=== PATIENT | female | born 1985 | race Caucasian/White ===

== ENCOUNTER 2016-04-27 22:54 | Emergency (ER) | payer MEDICAID, SELFPAY ==
[2016-04-27 22:57] VITALS: BP 157/102; PULSE 145; RESP 20; TEMP 36.1; O2SAT 96; BMI 45.2
--- NOTE | 2016-04-27 23:03 | RAD_ITS ---
STUDY: X-RAY CHEST REASON FOR EXAM: Female, 30 years old. Seizures TECHNIQUE: 1 view COMPARISON: April 11, 2016 FINDINGS: The chest is slightly rotated but there continues to be cardiomegaly. The plate atelectatic change in the left suprahilar region is still suspected. A small acinar density about 2 cm in size is at the periphery of the lower half of the left lung. The right lung is clear. An ET tube and NG tube remain in good positions... RAD/Chest 1 View (Portable) IMPRESSION: Cardiomegaly with platelike atelectatic changes in the left suprahilar region and at the periphery of the lower half of the left lung. No failure. Electronically Signed: Evan Holman, at 23:48 EST Tel , Service support [phone],
[2016-04-27 23:15] VITALS: PULSE 169; RESP 14; O2SAT 97
--- NOTE | 2016-04-27 23:22 | EKG12_ITS ---
Test Reason : UNRESPONSIVE Blood Pressure : / mmHG Vent. Rate : 169 BPM Atrial Rate : 170 BPM P-R Int : 096 ms QRS Dur : 068 ms QT Int : 290 ms P-R-T Axes : 000 088 072 degrees QTc Int : 486 ms Sinus tachycardia Confirmed by ANGELA MONAHAN, THEO ([id number]), editor index ABDOUL BANSAL ([id number]) on 05/02/2016 11:45:29 AM Referred By: MIKAL Confirmed By:THEO MILLER MD
[2016-04-27 23:23] LABS: Bacteria 0 SEEN /hpf (None Seen); Mucous, Urine 0 SEEN /hpf (<or=2+); Red Blood Cells-Urine 0 SEEN /hpf (0-5); Squamous Epithelial Cells - UA 0 SEEN /hpf (5-10); White Blood Cells 0 SEEN /hpf (0-5)
[2016-04-27] MEDS: Rocuronium Bromide 50 MG/5 ML Vial 62 MG IV (23:24)
[2016-04-27 23:25] LABS: Color, Urine Yellow (Yellow); Glucose, Dipstick Normal (Normal); Internal QC Validated? YES +Cl - CLEAR BKGD; Ketone-Dipstick Negative (Negative); Leukocyte Esterase-Dipstick Negative /ul (Negative); Nitrite-Dipstick Negative (Negative); Occult Blood-Urine 10 /ul (Negative); Pregnancy, Urine Negative Negative; Protein-Dipstick 30 mg/dl (Negative); Specific Gravity, Urine 1.015 (1.002-1.030); Urine Bilirubin Dipstick Negative (Negative); Urine Clarity Sl. Cloudy (Clear); Urine Urobilinogen Normal (Normal); Urine pH 6.5 (5.0 - 8.0)
[2016-04-27] MEDS: Etomidate 20 MG/10 ML Vial IV (23:26)
[2016-04-27 23:27] LABS: Absolute Lymphocyte Count 7.85 X10^3/ul (0.83-4.51); Absolute Neutrophil Count 20.1 X10^3/uL (2.0-7.7); Basophil# 0.05 X10^3/uL; Basophil% 0.2 % (0-1); Differential Indicated SCAN CRITERIA MET; Eosinophil# 0.46 X10^3/uL; Eosinophils% 1.5 % (0-5); Hematocrit 43.1 % (37-47); Hemoglobin 13.1 g/dl (12.0-15.0); Lymphocyte # 7.85 X10^3/ul (4.0); Lymphocyte % 25.8 % (19-41); Mean Corp Hgb Conc 30.4 g/gl (32-36); Mean Corpuscular Hgb 26.5 pg (27.0-32.0); Mean Corpuscular Volume 87.1 fL (81-99); Mean Platelet Vol. 11.8 fl (6.2-12.0); Monocyte% 5.9 % (0-10); Neutrophil # 20.09 X10^3/uL (2.7-7.7); POSITIVE COUNT YES; POSITIVE DIFFERENTIAL YES; POSITIVE MORPHOLOGY NO; Platelet Count 360 K/mm3 (150-450); RBC Distribution Width CV 14.3 % (11.6-14.6); RBC Distribution Width SD 45.5 fl (35.1-43.9); Red Blood Count 4.95 M/mm3 (4.2-5.4)
[2016-04-27 23:28] LABS: White Blood Count 30.4 K/mm3 (4.4-11.0)
[2016-04-27] MEDS: Propofol 10MG/Ml 1,000 MG/100 ML Bottle 3.933 MG CONT INF (23:30)
[2016-04-27 23:32] VITALS: BP 134/88; PULSE 165
[2016-04-27 23:40] VITALS: BP 143/81; PULSE 158
[2016-04-27 23:41] LABS: ALB/GLOB Ratio 0.9 RATIO (0.9-2.4); AST(SGOT) 22 U/L (15-37); Alanine Aminotransfer ALT/SGPT 25 U/L (12-78); Albumin, Serum 3.6 g/dL (3.4-5.0); Alkaline Phosphatase 122 U/L (45-117); Anion Gap 9 (5-15); BUN 8 mg/dL (7-18); BUN/Creat Ratio 6.4 RATIO (10-20); Calcium,Total 8.4 mg/dL (8.5-10.1); Chloride 104 mmol/L (98-107); Creatinine, Serum 1.25 mg/dL (0.55-1.02); EST Glomerular Filtration Rate 53 mL/min (>60); Est Glom Filt Rate - Afr Amer 64 mL/min (>60); Estimated Creatinine Clearance 63.41 ml/min; Glucose 271 mg/dL (70-110); Potassium 4.4 mmol/L (3.5-5.1); Protein, Total 7.6 g/dL (6.4-8.2); Sodium Level 139 mmol/L (136-145)
--- NOTE | 2016-04-27 23:41 | ED.RN ---
Addendum entered by Romario Vizcarra 04/30/16 13:46: IT NOTED THAT IN THE PATIENT CHART THAT THE DOSE OF ROCURONIUM GIVEN WAS 62 MG BUT IT ALSO STATES THAT IT IS ORDERED 1MG/KG. THE CORRECT DOSE GIVEN WAS 100 MG @ 2257. ETOMIDATE 25MG GIVEN @ 2255. ATIVAN 2MG IVP GIVEN AT 2256. THE PATIENT WAS INTUBATED AT 2300. NS 9% 1L BOLUS STARTED AT 2300. PROPOFOL GTT STARTED @ 2310 @ 10MCG/KG/MIN POST SEDATION MANAGEMENT. Original Note: PATIENT CAME IN BY SQUAD AND WAS EMERGENTLY INTUBATED. PATIENT HAD BEEN REPORTEDLY SEIZING FOR OVER 20 MINUTES. VALIUM 5MG GIVEN IM X'S 1. ONCE PIV ACCESS OBTAINED ATIVAN 2MG IVP GIVEN X'S 2. FOR RSI, ETOMIDATE 20MG IVP GIVEN AND ROCURONIUM 100MG GIVEN X'S 2 @2300 (LINE INFILTRATED AND PATIENT NEEDED A REDOSING OF RECURONIUM). PATIENT INTUBATED WITH A #7.5 ET-TUBE @ 23 @ THE LIP. PLACEMENT VERIFIED BY AUSCULTATION, COLOR CHANGING CO2 DETECTOR AND XRAY.
[2016-04-27 23:45] VITALS: BP 136/71; PULSE 123
[2016-04-27 23:49] LABS: Bedside Glucose 267 mg/dL (70-110)
[2016-04-27 23:50] LABS: Phenytoin (Dilantin) Level 0.8 mL (10.0-20.0); Valproic Acid (Depakene) Level < 3 ug/mL (50-100)
[2016-04-27 23:51] LABS: Differential Comment SCANNED; Reactive Lymphocyte 2+
[2016-04-27 23:54] VITALS: BP 136/71; PULSE 127; RESP 14; TEMP 38.4; O2SAT 98
--- NOTE | 2016-04-27 23:59 | ED.RN ---
PT RESTING QUIETLY WITH NO SIGNS OF DISTRESS. SPOUSE AT BEDSIDE.
[2016-04-28 00:04] VITALS: BP 110/61; PULSE 119; RESP 14; O2SAT 99
[2016-04-28 00:13] LABS: Lactic Acid 2.8 mmol/L (0.4-2.0)
[2016-04-28 00:30] VITALS: BP 124/75; PULSE 123; RESP 16; TEMP 37.4; O2SAT 98
[2016-04-28 00:33] LABS: Base Excess -3 mmol/L (-2 to +2); Bicarbonate 24 mmol/L (22-26); Blood Gas Specimen Type ART; PO2 173 mmHG (75-100); SO2 99 % (95-99); Total Carbon Dioxide 25 mmol/L; pH 7.28 (7.35-7.45)
[2016-04-28 01:00] VITALS: BP 141/85; PULSE 126; RESP 17; TEMP 37.1; O2SAT 96
--- NOTE | 2016-04-28 01:20 | ED.RN ---
Correction to MAR: etomidate 25 mg IV given at 2255 on 04/27/16 rocuronium 100 mg IV given at 2257 on 04/27/16 propofol 10mcg/kg/min started at 2310 meds given for intubation
[2016-04-28 01:30] VITALS: BP 133/79; PULSE 119; RESP 16; O2SAT 98
[2016-04-28 01:34] VITALS: BP 139/74; PULSE 119; RESP 14; O2SAT 99
[2016-04-28 13:58] LABS: Pathologist Review Reviewed
--- NOTE | 2016-05-03 06:06 | EDS_ITS ---
DATE OF SERVICE: 04/27/[address] Gunjan Zimmerman dictating on behalf of Dr. Latonya Wiseman. HISTORY OF PRESENT ILLNESS: The patient is a 30-year-old female with a history of a seizure disorder who presents to the hospital via EMS for status epilepticus. Per history, the patient had been seizing for approximately 30 minutes prior to arrival. She was given 5 mg Valium IM by EMS; however, this failed to resolve her seizures. Per chart review, the patient has presented with similar symptoms previously requiring intubation and transfer to [facility] for further management. Remaining history is limited due to her acute illness severity and no family is currently available. She is reportedly on valproic acid and phenytoin; however, this could not be confirmed at this point in time. PHYSICAL EXAMINATION: VITAL SIGNS: blood pressure of 110/61, temperature 101.2, heart rate 145, respiratory rate 20 and pulse oximetry 96% on room air. GENERAL: An obese female with active tonic-clonic seizure activity. PRIMARY SURVEY: Airway/Breathing- pooled secretions with agonal respirations. Circulation- She has a strong radial pulse and is tachycardic. SECONDARY SURVEY: Normocephalic and atraumatic. Eyes are equal, round and reactive to light bilaterally measuring approximately 3 mm. NECK: Supple. ABDOMEN: Soft and nondistended. EXTREMITIES: Atraumatic SKIN: She has a normal color with no evidence of rash. NEUROLOGIC: As noted, has a seizure activity of the upper and lower extremities. EMERGENCY DEPARTMENT COURSE AND DECISION MAKING: Upon the patient's arrival to the Emergency Department, she was noted to have active seizure activity for which she was provided with additional 5 mg of Valium while IV access was obtained. She was subsequently given a total of 4 mg of Ativan IV; however, this failed to resolve her seizures. At which point it was decided that she required intubation for airway protection and hypoxia. She was given 20 of etomidate and 100 of Rocuronium and successfully intubated on the first attempt using direct laryngoscopy. Followup chest x-ray demonstrates appropriate endotracheal tube placement. Significant findings on lab work included a leukocytosis of 30.4, a creatinine of 1.25, glucose 271. Valproic acid and phenytoin levels were obtained and are both subtherapeutic. Chest x-ray was also concerning for possible infiltrative process and given her fever and leukocytosis, we feel that it is appropriate to cover her with vancomycin and Zosyn for possible infectious etiology at this point in time. Of note, the patient was also started on a propofol drip. We discussed this case with the ICU at [facility], who has agreed to admit her for status epilepticus and acute respiratory failure as well as fever with leukocytosis. Clinical Impression: 1) Acute respiratory failure 2) Status epilepticus 3) Fever with leukocytosis Gunjan Zimmerman MD T: NTS JOB: [id number]
== END 2016-04-28 02:17 | disposition short-term general hospital (02) ==
LOC: ED 06-11 06:17
PROVIDERS: Emergency Provider Emergency Medicine; Family Provider Family Medicine; PCP Family Medicine; Visit Provider Emergency Medicine
DX: G40.401 Other generalized epilepsy and epileptic syndromes, not intractable, with status epilepticus (principal); J96.00 Acute respiratory failure, unspecified whether with hypoxia or hypercapnia; R50.9 Fever, unspecified; D72.829 Elevated white blood cell count, unspecified; E66.9 Obesity, unspecified; Z79.899 Other long term (current) drug therapy
CPT/HCPCS: 31500; 31720; 36415; 36600; 51702; 71010; 80053; 80164; 80185; 81001; 81025; 82803; 82962; 83605; 85025; 87040; 93005; 94002; 96365; 96366; 96368; 96375; 96376; 99251; 99285; J7030; J7040; G0463

== ENCOUNTER 2017-06-20 16:12 | Inpatient (IN) | payer MEDICAID, SELFPAY ==
[2017-06-20] VITALS (23 sets, daily range): BP systolic 135–182; BP diastolic 73–115; PULSE 84–144; RESP 14–112; TEMP 37.2–39.3; O2SAT 97–100; BMI 45.1
[2017-06-20] MEDS: LORazepam 2 MG/ML Syringe IV ×2 (16:15→17:14)
[2017-06-20] MEDS: Etomidate 20 MG/10 ML Vial IV (16:18)
--- NOTE | 2017-06-20 16:25 | RAD_ITS ---
STUDY: X-RAY CHEST REASON FOR EXAM: Female, 31 years old. Intubation TECHNIQUE: A single frontal view of the chest was obtained. COMPARISON: March 06, 2017 FINDINGS: An endotracheal tube terminates about 5.2 cm above the sidney. A gastric tube extends into the left upper abdomen. The lungs are underaerated. There are no focal airspace opacities. There is no demonstrated pleural abnormality. The cardiac silhouette is normal in size allowing for low volume inspiration. The mediastinum and hilar regions are unremarkable. Normal visualized pulmonary arteries. Normal visualized aortic arch and descending thoracic aorta. There is mild scoliosis. The visualized ribs, clavicles, and shoulders are unremarkable. Cholecystectomy clips are present. RAD/Chest 1 View (Portable) IMPRESSION: The endotracheal tube terminates about 5.2 cm above the sidney. The gastric tube terminates in the expected location of the body of the stomach. There are no acute cardiopulmonary abnormalities. Electronically Signed: Patricia Brar MD at 16:54 EDT Tel Direct: [phone], Service support ,
--- NOTE | 2017-06-20 16:26 | EKG12_ITS ---
Test Reason : SEIZURE Blood Pressure : / mmHG Vent. Rate : 113 BPM Atrial Rate : 113 BPM P-R Int : 156 ms QRS Dur : 072 ms QT Int : 334 ms P-R-T Axes : 049 060 059 degrees QTc Int : 458 ms Sinus tachycardia Otherwise normal ECG Confirmed by SEEMA MONAHAN, BIRD ([id number]), editor greeting card ABDOUL BANSAL ([id number]) on 06/23/2017 12:52:01 PM Referred By: MANOLO Confirmed By:BIRD STEPHENSON MD
--- NOTE | 2017-06-20 16:33 | CT_ITS ---
STUDY: CT BRAIN WITHOUT CONTRAST REASON FOR EXAM: Female, 31 years old. Seizure RADIATION DOSAGE (If Supplied By Facility): CTDIvol = ( 44.99 ) mGy, DLP = ( 1828.44 ) mGycm TECHNIQUE: Transaxial CT imaging of the brain was performed without administration of intravenous contrast material. Individualized dose optimization techniques were used for this CT. COMPARISON: March 06, 2017 FINDINGS: The soft tissues are unremarkable. The osseous structures are unremarkable. Normal size ventricles and extra-axial spaces for the patient's age. The white matter tracts are unremarkable. The basal ganglia and thalami are unremarkable. No abnormalities are seen in the brainstem. The cerebellum is unremarkable. There is stable mild atrophy of the left hemisphere. There is no intracranial hemorrhage. There are no findings of acute ischemia. There is minimal mucosal thickening scattered in numerous sinuses. An endotracheal tube is present. CT/Brain/Head without Contrast IMPRESSION: No acute intracranial abnormalities or changes. Electronically Signed: Patricia Brar MD at 17:51 EDT Tel Direct: [phone], Service support ,
[2017-06-20] MEDS: levETIRAcetam IV 1,000 MG/100 ML BAG 400 MG IV ×2 (16:39→22:07)
[2017-06-20] MEDS: 0.9% Normal Saline 1,000 ML 150 ML IV (16:40)
[2017-06-20 16:41] LABS: Absolute Lymphocyte Count 4.67 X10^3/ul (0.83-4.51); Absolute Neutrophil Count 2.2 X10^3/uL (2.0-7.7); Basophil# 0.04 X10^3/uL; Basophil% 0.5 % (0-1); Eosinophil# 0.32 X10^3/uL; Eosinophils% 3.8 % (0-5); Hematocrit 45.3 % (37-47); Hemoglobin 14.2 g/dl (12.0-15.0); Lymphocyte # 4.67 X10^3/ul (4.0); Lymphocyte % 55.2 % (19-41); Mean Corp Hgb Conc 31.3 g/gl (32-36); Mean Corpuscular Hgb 28.2 pg (27.0-32.0); Mean Corpuscular Volume 89.9 fL (81-99); Mean Platelet Vol. 12.1 fl (6.2-12.0); Monocyte# 1.23 X10^3/uL; Monocyte% 14.5 % (0-10); Neutrophil # 2.19 X10^3/uL (2.7-7.7); Neutrophil % 25.9 % (47-70); Platelet Count 232 K/mm3 (150-450); RBC Distribution Width CV 13.1 % (11.6-14.6); RBC Distribution Width SD 42.8 fl (35.1-43.9); Red Blood Count 5.04 M/mm3 (4.2-5.4); White Blood Count 8.5 K/mm3 (4.4-11.0)
[2017-06-20 16:45] LABS: Bedside Glucose 179 mg/dL (70-110)
[2017-06-20 16:48] LABS: Bacteria 0 SEEN /hpf (None Seen); Mucous, Urine 0 SEEN /hpf (<or=2+); White Blood Cells 0 SEEN /hpf (0-5)
[2017-06-20 16:51] LABS: Color, Urine Yellow (Yellow); Glucose, Dipstick Normal (Normal); Ketone-Dipstick Negative (Negative); Leukocyte Esterase-Dipstick Negative /ul (Negative); Nitrite-Dipstick Negative (Negative); Occult Blood-Urine 25 /ul (Negative); Protein-Dipstick 100 mg/dl (Negative); Urine Bilirubin Dipstick Negative (Negative); Urine Clarity Sl. Cloudy (Clear); Urine Urobilinogen Normal (Normal)
[2017-06-20 16:59] LABS: POSITIVE COUNT NO; POSITIVE DIFFERENTIAL NO; POSITIVE MORPHOLOGY NO
--- NOTE | 2017-06-20 17:00 | ED.RN ---
VERSED INCREASED TO 4MG/HR PER DR FRENCH VERBAL ORDER
[2017-06-20 17:03] LABS: Red Blood Cells-Urine 0-5 SEEN /hpf (0-5); Squamous Epithelial Cells - UA 0-5 SEEN /hpf (5-10)
--- NOTE | 2017-06-20 17:11 | ED.DCSUM_ITS ---
- ER Visit Summary Date of Service: 06/20/17 Chief Complaint: Seizure History of Present Illness: The patient is a 31 F with history of seizure disorder. Per the patient had a 15 minute staring seizure followed by tonic-clonic seizure. Patient is actively seizing on arrival to the ER is being bagged by EMS. Seizure activity stopped shortly after arrival. IV line was able to be established and she was given 2 mg of IV Ativan. Patient was not protecting airway and had pooling of secretions. She was electively intubated. On discussion with he states that she has had cough today. He is unsure she has had fever. On last discharge instructions from February when she was admitted with similar she was to be taking Keppra 1000 mg twice daily as well as Topamax 100 mg twice daily. states that she is taking the Keppra. She has not been taking Topamax and he is unsure if her doctor told her to stop this if she did on her own. Physical Examination: Blood pressure on arrival is 182/115, temperature 102.7, heart rate 144, respiratory rate 30, pulse ox 100% with Ambu bag. Patient is actively seizing. Tonic-clonic activity of the extremities, left > right is noted along with twitching of the left side of the face. She has pooling of secretions. Heart is tachycardic. Lung sounds are diminished on the left base. Extremity examination reveals no obvious trauma. Test Results: EKG is sinus tach at 113 with no sign of acute ischemia. CBC is unremarkable. Chemistry studies reveal bicarb of 17 and a creatinine 1.44. Glucose is 197. LFTs are unremarkable. Urine tox screen is positive for cannabinoids. test negative. Urinalysis normal. Chest x-ray shows ET tube to be 5.27 cm above the sidney. No acute lung abnormalities were noted. ETT was advanced [address] the head shows no acute abnormalities. Emergency Department Course and Treatment: As previously stated patient stopped her seizure activity shortly after arrival to the emergency room. She was given 2 mg of IV Ativan. Due to pooling of secretions she was electively intubated using a 7.5 [place] ET tube. She remained hemodynamically stable throughout. Patient was discussed with Dr. Erickson who asked that we give her 1000 mg IV Keppra load. If her labs and CT are otherwise unremarkable and patient is able to follow commands after her post ictal state has worn off patient can be admitted here. Her Keppra dose is to be increased to 1250mg BID. If she is not able to follow commands, she needs to be transferred to a center with 24 hour EEG availability. Patient has been moving all 4 extremities and will follow commands. Patient was discussed with ICU physician as well as hospitalist for admission. Treatment Plan: [] Disposition: Admit Impression: 1. Seizure with history of seizure disorder 2. Respiratory failure This note was generated with [employer] dictation software. It may contain incorrect words, spelling, and punctuation that were not noted in review of the chart prior to signing ED Disposition - Plan for ED Patient: Disposition: Acute Care Hospital [facility] Chief Complaint: Seizure
[2017-06-20 17:13] LABS: AST(SGOT) 19 U/L (15-37); Alanine Aminotransfer ALT/SGPT 22 U/L (13-56); Albumin, Serum 3.7 g/dL (3.2-5.0); Alkaline Phosphatase 105 U/L (45-117); Anion Gap 15 (5-15); BUN 15 mg/dL (7-18); BUN/Creat Ratio 10.4 RATIO (10-20); Bilirubin, Direct 0.05 mg/dL (0.00-0.30); Calcium,Total 8.7 mg/dL (8.5-10.1); Chloride 105 mmol/L (98-107); Creatinine, Serum 1.44 mg/dL (0.55-1.02); EST Glomerular Filtration Rate 45 mL/min (>60); Est Glom Filt Rate - Afr Amer 54 mL/min (>60); Globulin 4.4 g/dL (2.2-4.2); Glucose 197 mg/dL (74-106); Potassium 4.2 mmol/L (3.5-5.1); Protein, Total 8.1 g/dL (6.4-8.2); Sodium Level 137 mmol/L (136-145)
[2017-06-20 17:14] LABS: Pregnancy, Serum, hCG Quali. NEGATIVE Negative (0-9 Nonpreg)
[2017-06-20 17:17] LABS: Amphetamine Urine VISTA NEGATIVE (<1000 ng/mL); Barbiturate Urine VISTA NEGATIVE (< 200 ng/mL); Benzodiazepine Urine VISTA NEGATIVE (< 200 ng/mL); Cocaine Urine VISTA NEGATIVE (< 300 ng/mL); Ecstacy Urine VISTA NEGATIVE (< 500 ng/mL); Methadone Urine VISTA NEGATIVE (< 300 ng/mL); PCP Urine VISTA NEGATIVE (< 25 ng/mL); THC Urine VISTA POSITIVE (< 50 ng/mL); Vista UDS pH Range 6
[2017-06-20] MEDS: Propofol 10MG/Ml 1,000 MG/100 ML Bottle 3.6 MG CONT INF (17:52)
--- NOTE | 2017-06-20 18:14 | NURSING ---
DR GIL YING
--- NOTE | 2017-06-20 18:23 | NURSING ---
DR COLLAZO FOR DR FRENCH
--- NOTE | 2017-06-20 18:37 | PCM.HP.STD ---
Problem List (1) Seizure Status: Acute (2) HTN (hypertension) Status: Acute Qualifiers: (3) Seizure Status: Chronic (4) Depression Status: Chronic (5) Morbid obesity with BMI of 50.0-59.9, adult Status: Chronic History of Present Illness Date of Admission: 06/20/17 Chief Complaint: seizure The patient is a 31 year old F with a known seizure disorder had a seizure today and I was unresponsive for period of time. Patient's was concerned and called EMS. By the patient time patient arrived patient was still very unresponsive and pooling secretions. Patient did receive Ativan. Patient had a been on Keppra and topiramate from her recent discharge in February for seizures. Patient has apparently been taking her Keppra but not the topiramate. It is unclear the patient was told to discontinue that by her neurologist where she voluntarily stopped it. Due to pooling of secretions in her airway and her unresponsiveness patient was intubated for impending airway failure though she was never hypoxic. Patient did receive IV Keppra in the emergency room after discussion with the on-call neurologist. [] Past Medical History Past Medical History (Chronic Problems): Chronic Problems Seizure (Chronic) Tobacco use (Chronic) Seizures (Chronic) Depression (Chronic) Morbid obesity with BMI of 50.0-59.9, adult (Chronic) Allergies naproxen Allergy (Verified 06/20/17 16:19) Hives Home Medications: Ambulatory Orders Medication Instructions Recorded Amlodipine [Norvasc] 10 mg PO DAILY 09/17/16 levETIRAcetam tablet [Keppra 1,000 mg PO Q12H 09/17/16 tablet] Lives: Spouse/ Significant Other Smoking Status: Never smoker Drugs: Marijuana - Smokes 1-2 times per day - *Family History Maternal History Items: No pertinent history, - - Unable to get any family history from the patient as she is intubated and sedated. Review of Systems Unable to obtain accurate/complete ROS d/t: Unable to get any review of systems from patient as she is intubated and Comment: sedated VTE Information - Inpt Only VTE Present on Admission: No VTE Pharm Prophylaxis ordered?: Yes Patient Problems: Active and Suspected Problems Seizure (Acute) - Physical Exam General: - - Intubated and sedated HEENT: Atraumatic, Normocephalic, - - No icterus. Pupils fixed. Oral: Moist Mucosa, No Gingival or Mucosal Lesions/ Ulcerations, - - Endotracheal tube and orogastric tube in place. Neck: No Nodes, Thyroid Normal Size and Texture Lungs: Clear to auscultation, Normal air movement, No rhonchi, No wheeze Cardiovascular: Regular rate, Regular Rhythm, Normal S1, Normal S2, No murmurs Abdomen: Bowel Sounds Present, Soft, Non Tender, Non-Distended, No Hepato-splenomegaly, Obese Extremities: No edema, No Calf Tenderness Skin: No rashes, No breakdown Musculoskeletal: No Tenderness to Palpation of Joints or Extremities, No Muscle Wasting Neurological: - - Is all extremities spontaneously. Withdraws to noxious stimuli. Psych/Mental Status: - - Debated and sedated Vital Signs Temp Pulse Resp BP Pulse Ox 37.2 C 106 H 15 152/110 H 100 06/20/17 18:25 06/20/17 18:25 06/20/17 18:25 06/20/17 18:25 06/20/17 18:25 Oxygen Flow Rate (L/min) 40 Oxygen Delivery Method Mechanical Ventilator Weight: 121 kg Body Mass Index (BMI) 0.0 Finger Stick Blood Glucose 179 Laboratory Tests Past 24 Hrs 06/20/17 06/20/17 06/20/17 16:15 16:15 16:15 WBC 8.5 RBC 5.04 Hgb 14.2 Hct 45.3 MCV 89.9 MCH 28.2 MCHC 31.3 L RDW 13.1 RDW Differential 42.8 Plt Count 232 MPV 12.1 H Immature Gran % (Auto) 0.100 Neut % (Auto) 25.9 L Lymph % (Auto) 55.2 H [place] % (Auto) 14.5 H Eos % (Auto) 3.8 Baso % (Auto) 0.5 Absolute Neuts (auto) 2.2 Absolute Lymphs (auto) 4.67 H Total Counted Not Reportable Sodium 137 Potassium 4.2 Chloride 105 Carbon Dioxide 17.0 L Anion Gap 15 BUN 15 Creatinine 1.44 H Estim Creat Clear Calc 0.00 Est GFR (MDRD) Af Amer 54 L Est GFR (MDRD) Non-Af 45 L BUN/Creatinine Ratio 10.4 Glucose 197 H Calcium 8.7 Total Bilirubin 0.10 L Direct Bilirubin 0.05 AST 19 ALT 22 Alkaline Phosphatase 105 Total Protein 8.1 Albumin 3.7 Globulin 4.4 H Serum , Qual NEGATIVE Urine Color Urine Clarity Urine pH Ur Specific [place] Urine Protein Urine Glucose (UA) Urine Ketones Urine Occult Blood Urine Nitrite Urine Bilirubin Urine Urobilinogen Ur Leukocyte Esterase Urine RBC Urine WBC Ur Squamous Epith Cells Urine Bacteria Urine Mucus Urine Opiates Screen Urine Methadone Screen Ur Barbiturates Screen Ur Phencyclidine Scrn Ur Amphetamines Screen U Methamphetamin-MDMA U Benzodiazepines Scrn Urine Cocaine Screen U Cannabinoids Screen Ur Drug Screen Comment POC Glucose 06/20/17 06/20/17 06/20/17 16:30 16:30 16:39 WBC RBC Hgb Hct MCV MCH MCHC RDW RDW Differential Plt Count MPV Immature Gran % (Auto) Neut % (Auto) Lymph % (Auto) [place] % (Auto) Eos % (Auto) Baso % (Auto) Absolute Neuts (auto) Absolute Lymphs (auto) Total Counted Sodium Potassium Chloride Carbon Dioxide Anion Gap BUN Creatinine Estim Creat Clear Calc Est GFR (MDRD) Af Amer Est GFR (MDRD) Non-Af BUN/Creatinine Ratio Glucose Calcium Total Bilirubin Direct Bilirubin AST ALT Alkaline Phosphatase Total Protein Albumin Globulin Serum , Qual Urine Color Yellow Urine Clarity Sl. Cloudy Urine pH 6.0 Ur Specific [place] 1.020 Urine Protein 100 H Urine Glucose (UA) Normal Urine Ketones Negative Urine Occult Blood 25 H Urine Nitrite Negative Urine Bilirubin Negative Urine Urobilinogen Normal Ur Leukocyte Esterase Negative Urine RBC 0-5 SEEN Urine WBC 0 SEEN Ur Squamous Epith Cells 0-5 SEEN Urine Bacteria 0 SEEN Urine Mucus 0 SEEN Urine Opiates Screen NEGATIVE Urine Methadone Screen NEGATIVE Ur Barbiturates Screen NEGATIVE Ur Phencyclidine Scrn NEGATIVE Ur Amphetamines Screen NEGATIVE U Methamphetamin-MDMA NEGATIVE U Benzodiazepines Scrn NEGATIVE Urine Cocaine Screen NEGATIVE U Cannabinoids Screen POSITIVE H Ur Drug Screen Comment POC Glucose 179 H POC Glucose 06/20/17 16:39 POC Glucose 179 H Clinical Impression(s) from Imaging Studies Chest X-Ray 06/20/17 16:25 IMPRESSION: The endotracheal tube terminates about 5.2 cm above the sidney. The gastric tube terminates in the expected location of the body of the stomach. There are no acute cardiopulmonary abnormalities. Electronically Signed: Patricia Brar MD at 16:54 EDT Tel Direct: [phone], Service support , Brain CT 06/20/17 16:33 IMPRESSION: No acute intracranial abnormalities or changes. Electronically Signed: Patricia Brar MD at 17:51 EDT Tel Direct: [phone], Service support , Assessment/Plan Active and Suspected Problems Seizure (Acute) 1. Breakthrough seizure As mentioned in the HPI, patient was discharged with Keppra and topiramate from her discharge from February. Patient is no longer taking the topiramate for unclear reasons at this time. Patient will continue with Keppra for now. Patient will have seizure precautions and will be assessed by neurology in the morning. 2. Acute respiratory failure This was for impending airway compromise due to her unresponsiveness and pooling of secretions and not adequately able to secure her own airway. Decision was made to electively intubate her. Patient is currently on the ventilator. Critical care medicine will be on consultation. 3. DVT prophylaxis with Lovenox. Code Visit Inpatient E&M: 56229 Init Hosp L3
--- NOTE | 2017-06-20 18:45 | HP.PCM_ITS ---
Problem List (1) Seizure Status: Acute (2) HTN (hypertension) Status: Acute Qualifiers: (3) Seizure Status: Chronic (4) Depression Status: Chronic (5) Morbid obesity with BMI of 50.0-59.9, adult Status: Chronic History of Present Illness Date of Admission: 06/20/17 Chief Complaint: seizure The patient is a 31 year old F with a known seizure disorder had a seizure today and I was unresponsive for period of time. Patient's was concerned and called EMS. By the patient time patient arrived patient was still very unresponsive and pooling secretions. Patient did receive Ativan. Patient had a been on Keppra and topiramate from her recent discharge in February for seizures. Patient has apparently been taking her Keppra but not the topiramate. It is unclear the patient was told to discontinue that by her neurologist where she voluntarily stopped it. Due to pooling of secretions in her airway and her unresponsiveness patient was intubated for impending airway failure though she was never hypoxic. Patient did receive IV Keppra in the emergency room after discussion with the on-call neurologist. [] Past Medical History Past Medical History (Chronic Problems): Chronic Problems Seizure (Chronic) Tobacco use (Chronic) Seizures (Chronic) Depression (Chronic) Morbid obesity with BMI of 50.0-59.9, adult (Chronic) Allergies naproxen Allergy (Verified 06/20/17 16:19) Hives Home Medications: Ambulatory Orders Medication Instructions Recorded Amlodipine [Norvasc] 10 mg PO DAILY 09/17/16 levETIRAcetam tablet [Keppra 1,000 mg PO Q12H 09/17/16 tablet] Lives: Spouse/ Significant Other Smoking Status: Never smoker Drugs: Marijuana - Smokes 1-2 times per day - *Family History Maternal History Items: No pertinent history, - - Unable to get any family history from the patient as she is intubated and sedated. Review of Systems Unable to obtain accurate/complete ROS d/t: Unable to get any review of systems from patient as she is intubated and Comment: sedated VTE Information - Inpt Only VTE Present on Admission: No VTE Pharm Prophylaxis ordered?: Yes Patient Problems: Active and Suspected Problems Seizure (Acute) - Physical Exam General: - - Intubated and sedated HEENT: Atraumatic, Normocephalic, - - No icterus. Pupils fixed. Oral: Moist Mucosa, No Gingival or Mucosal Lesions/ Ulcerations, - - Endotracheal tube and orogastric tube in place. Neck: No Nodes, Thyroid Normal Size and Texture Lungs: Clear to auscultation, Normal air movement, No rhonchi, No wheeze Cardiovascular: Regular rate, Regular Rhythm, Normal S1, Normal S2, No murmurs Abdomen: Bowel Sounds Present, Soft, Non Tender, Non-Distended, No Hepato- splenomegaly, Obese Extremities: No edema, No Calf Tenderness Skin: No rashes, No breakdown Musculoskeletal: No Tenderness to Palpation of Joints or Extremities, No Muscle Wasting Neurological: - - Is all extremities spontaneously. Withdraws to noxious stimuli. Psych/Mental Status: - - Debated and sedated Vital Signs Temp Pulse Resp BP Pulse Ox 37.2 C 106 H 15 152/110 H 100 06/20/17 18:25 06/20/17 18:25 06/20/17 18:25 06/20/17 18:25 06/20/17 18:25 Oxygen Flow Rate (L/min) 40 Oxygen Delivery Method Mechanical Ventilator Weight: 121 kg Body Mass Index (BMI) 0.0 Finger Stick Blood Glucose 179 Laboratory Tests Past 24 Hrs 06/20/17 06/20/17 06/20/17 16:15 16:15 16:15 WBC 8.5 RBC 5.04 Hgb 14.2 Hct 45.3 MCV 89.9 MCH 28.2 MCHC 31.3 L RDW 13.1 RDW Differential 42.8 Plt Count 232 MPV 12.1 H Immature Gran % (Auto) 0.100 Neut % (Auto) 25.9 L Lymph % (Auto) 55.2 H [place] % (Auto) 14.5 H Eos % (Auto) 3.8 Baso % (Auto) 0.5 Absolute Neuts (auto) 2.2 Absolute Lymphs (auto) 4.67 H Total Counted Not Reportable Sodium 137 Potassium 4.2 Chloride 105 Carbon Dioxide 17.0 L Anion Gap 15 BUN 15 Creatinine 1.44 H Estim Creat Clear Calc 0.00 Est GFR (MDRD) Af Amer 54 L Est GFR (MDRD) Non-Af 45 L BUN/Creatinine Ratio 10.4 Glucose 197 H Calcium 8.7 Total Bilirubin 0.10 L Direct Bilirubin 0.05 AST 19 ALT 22 Alkaline Phosphatase 105 Total Protein 8.1 Albumin 3.7 Globulin 4.4 H Serum , Qual NEGATIVE Urine Color Urine Clarity Urine pH Ur Specific [place] Urine Protein Urine Glucose (UA) Urine Ketones Urine Occult Blood Urine Nitrite Urine Bilirubin Urine Urobilinogen Ur Leukocyte Esterase Urine RBC Urine WBC Ur Squamous Epith Cells Urine Bacteria Urine Mucus Urine Opiates Screen Urine Methadone Screen Ur Barbiturates Screen Ur Phencyclidine Scrn Ur Amphetamines Screen U Methamphetamin-MDMA U Benzodiazepines Scrn Urine Cocaine Screen U Cannabinoids Screen Ur Drug Screen Comment POC Glucose 06/20/17 06/20/17 06/20/17 16:30 16:30 16:39 WBC RBC Hgb Hct MCV MCH MCHC RDW RDW Differential Plt Count MPV Immature Gran % (Auto) Neut % (Auto) Lymph % (Auto) [place] % (Auto) Eos % (Auto) Baso % (Auto) Absolute Neuts (auto) Absolute Lymphs (auto) Total Counted Sodium Potassium Chloride Carbon Dioxide Anion Gap BUN Creatinine Estim Creat Clear Calc Est GFR (MDRD) Af Amer Est GFR (MDRD) Non-Af BUN/Creatinine Ratio Glucose Calcium Total Bilirubin Direct Bilirubin AST ALT Alkaline Phosphatase Total Protein Albumin Globulin Serum , Qual Urine Color Yellow Urine Clarity Sl. Cloudy Urine pH 6.0 Ur Specific [place] 1.020 Urine Protein 100 H Urine Glucose (UA) Normal Urine Ketones Negative Urine Occult Blood 25 H Urine Nitrite Negative Urine Bilirubin Negative Urine Urobilinogen Normal Ur Leukocyte Esterase Negative Urine RBC 0-5 SEEN Urine WBC 0 SEEN Ur Squamous Epith Cells 0-5 SEEN Urine Bacteria 0 SEEN Urine Mucus 0 SEEN Urine Opiates Screen NEGATIVE Urine Methadone Screen NEGATIVE Ur Barbiturates Screen NEGATIVE Ur Phencyclidine Scrn NEGATIVE Ur Amphetamines Screen NEGATIVE U Methamphetamin-MDMA NEGATIVE U Benzodiazepines Scrn NEGATIVE Urine Cocaine Screen NEGATIVE U Cannabinoids Screen POSITIVE H Ur Drug Screen Comment POC Glucose 179 H POC Glucose 06/20/17 16:39 POC Glucose 179 H Clinical Impression(s) from Imaging Studies Chest X-Ray 06/20/17 16:25 IMPRESSION: The endotracheal tube terminates about 5.2 cm above the sidney. The gastric tube terminates in the expected location of the body of the stomach. There are no acute cardiopulmonary abnormalities. Electronically Signed: Patricia Brar MD at 16:54 EDT Tel Direct: [phone], Service support , Brain CT 06/20/17 16:33 IMPRESSION: No acute intracranial abnormalities or changes. Electronically Signed: Patricia Brar MD at 17:51 EDT Tel Direct: [phone], Service support , Assessment/Plan Active and Suspected Problems Seizure (Acute) 1. Breakthrough seizure * As mentioned in the HPI, patient was discharged with Keppra and topiramate from her discharge from February. Patient is no longer taking the topiramate for unclear reasons at this time. Patient will continue with Keppra for now. Patient will have seizure precautions and will be assessed by neurology in the morning. 2. Acute respiratory failure * This was for impending airway compromise due to her unresponsiveness and pooling of secretions and not adequately able to secure her own airway. Decision was made to electively intubate her. Patient is currently on the ventilator. Critical care medicine will be on consultation. 3. DVT prophylaxis with Lovenox. Code Visit Inpatient E&M: 71847 Init Hosp L3
[2017-06-20] MEDS: Albuterol 2.5 MG/3 ML VIAL.NEB. INHALATION ×2 (20:08→22:53)
[2017-06-20 20:36] LABS: Base Excess 1 mmol/L (-2 to +2); Bicarbonate 25.3 mmol/L (22-26); Blood Gas Specimen Type ART; FI02 30; Mode A-C; O2 Delivery Device Vent; PEEP 5; PO2 105 mmHG (75-100); RR 14; SITE R Brachial; SO2 98 % (95-99); Total Carbon Dioxide 26 mmol/L; Vt 500; pCO2 36.6 mmHg (35-45); pH 7.45 (7.35-7.45)
[2017-06-20 21:02] LABS: M R Staph aureus DNA By PCR Negative (Negative); Probe Check PASS; Specimen Processing Control PASS
[2017-06-20] MEDS: Famotidine 20 MG Tablet GT (22:07)
[2017-06-20] MEDS: Chlorhexidine 15 ML PO (22:07)
[2017-06-21] VITALS (42 sets, daily range): BP systolic 112–152; BP diastolic 63–97; PULSE 75–109; RESP 14–22; TEMP 37.5–38.6; O2SAT 98–100
[2017-06-21] MEDS: 0.9% Normal Saline 1,000 ML 150 ML IV ×2 (00:30→05:11)
[2017-06-21] MEDS: Propofol 10MG/Ml 1,000 MG/100 ML Bottle 10.9 MG CONT INF (01:29)
[2017-06-21] MEDS: Albuterol 2.5 MG/3 ML VIAL.NEB. INHALATION ×6 (03:09→22:40)
[2017-06-21] MEDS: 0.9% NaCl Peripheral Flush Adult/Peds IV ×2 (05:11→13:47)
[2017-06-21] MEDS: CHLORHEXIDINE GLUC 2% CLOTH 1 EACH TOWELETTE TOPICAL (05:11)
[2017-06-21 05:16] LABS: Hematocrit 40.1 % (37-47); Hemoglobin 12.6 g/dl (12.0-15.0); Mean Corp Hgb Conc 31.4 g/gl (32-36); Mean Corpuscular Hgb 27.4 pg (27.0-32.0); Mean Corpuscular Volume 87.2 fL (81-99); Mean Platelet Vol. 11.1 fl (6.2-12.0); Platelet Count 140 K/mm3 (150-450); RBC Distribution Width CV 13.3 % (11.6-14.6); RBC Distribution Width SD 42.5 fl (35.1-43.9); White Blood Count 7.8 K/mm3 (4.4-11.0)
[2017-06-21 05:18] LABS: Scan Indicated on CBC? Y/N NO
[2017-06-21 05:47] LABS: Anion Gap 8 (5-15); BUN 9 mg/dL (7-18); BUN/Creat Ratio 10.7 RATIO (10-20); Calcium,Total 7.6 mg/dL (8.5-10.1); Chloride 107 mmol/L (98-107); Creatinine, Serum 0.84 mg/dL (0.55-1.02); EST Glomerular Filtration Rate 83 mL/min (>60); Est Glom Filt Rate - Afr Amer 100 mL/min (>60); Estimated Creatinine Clearance 83.03 ml/min; Glucose 114 mg/dL (74-106); Potassium 3.5 mmol/L (3.5-5.1); Sodium Level 137 mmol/L (136-145)
--- NOTE | 2017-06-21 06:49 | CON.PCM_ITS ---
Reason for Consult Date of Consultation: 06/21/17 Reason for Consultation: Acute respiratory failure History of Present Illness: The patient is a 31-year-old female, with a history as outlined below, who presented to the emergency department on June 20 after suffering a witnessed tonic-clonic seizure. The patient has reported history of epilepsy, for which she is prescribed Keppra and Topamax as an outpatient. Her underlying compliance with the aforementioned medication regimen includes is questionable. She has been admitted to the hospital multiple times previously for seizure related issues. On presentation to the emergency department, the patient was noted to be febrile , tachycardic, tachypneic and hypoxic. Laboratory evaluation revealed no evidence of a leukocytosis. Chemistry profile revealed a serum bicarbonate of 17 with evidence of acute kidney injury with a creatinine of 1.44. Urinalysis was largely unremarkable. Urine toxicology screen was positive for cannabinoids. Head CT revealed no acute intracranial pathology. The patient was nonresponsive on arrival to the ED with pulling of oropharyngeal secretions and concern for her ability to protect her airway. Therefore, she was electively intubated. Neurology was consulted and the patient was loaded with 1 g of IV Keppra. She was subsequently admitted to the medical intensive care unit for ongoing management. Past Medical History Past Medical History (Chronic Problems): Chronic Problems Seizure (Chronic) Tobacco use (Chronic) Seizures (Chronic) Depression (Chronic) Morbid obesity with BMI of 50.0-59.9, adult (Chronic) Allergies naproxen Allergy (Verified 06/20/17 16:19) Hives Home Medications: Ambulatory Orders Medication Instructions Recorded Amlodipine [Norvasc] 10 mg PO DAILY 09/17/16 levETIRAcetam tablet [Keppra 1,000 mg PO Q12H 09/17/16 tablet] Lives: Spouse/ Significant Other Smoking Status: Current some day smoker Drugs: Marijuana - Smokes 1-2 times per day - *Family History Maternal History Items: No pertinent history, - - Unable to get any family history from the patient as she is intubated and sedated. Review of Systems Unable to obtain accurate/complete ROS d/t: Due to current intubation and mechanical ventilation status Patient Problems: Active and Suspected Problems Seizure (Acute) Objective: The patient's most recent lab work, culture data and imaging studies have all been personally reviewed. - Physical Exam General: - - Intubated and mechanically ventilated. Currently tolerating CPAP mode mechanical ventilation. HEENT: Atraumatic, PERRLA, Normocephalic Oral: Dry Mucosa, - - Endotracheal and OG tubes in place Neck: Supple, No Nodes, Trachea Midline Lungs: No rhonchi, No wheeze, No rales, - - Mechanical breath sounds. Cardiovascular: Normal S1, Normal S2, No murmurs, No rub noted, No Gallop, Tachycardic Abdomen: Bowel Sounds Present, Soft, Non Tender, Obese Extremities: No clubbing, No cyanosis, No edema Skin: No breakdown Musculoskeletal: No Muscle Wasting Lymphatic: No Cervical, Supraclavicular, or Inguinal Adenopathy Neurological: - - No focal neurological deficits. Moves all extremities spontaneously. Will open eyes and follow simple commands, but falls asleep again quite easily. Vital Signs Temp Pulse Resp BP Pulse Ox 100.5 F H 99 19 H 144/78 H 100 06/21/17 06:00 06/21/17 06:00 06/21/17 06:00 06/21/17 06:00 06/21/17 06:00 Oxygen Delivery Method Mechanical Ventilator Weight: 264 lb 5.348 oz Body Mass Index (BMI) 45.1 Intake and Output for Last 24 Hours 06/19/17 06/20/17 06/21/17 23:59 23:59 23:59 Intake Total 1790.2 / 1790.2 Output Total 2500 / 2500 Balance -709.8 / -709.8 Laboratory Tests Past 24 Hrs 06/20/17 06/20/17 06/21/17 19:15 20:32 05:05 WBC 7.8 RBC 4.60 Hgb 12.6 Hct 40.1 MCV 87.2 MCH 27.4 MCHC 31.4 L RDW 13.3 RDW Differential 42.5 Plt Count 140 L MPV 11.1 Specimen Type ART Sample Site R Brachial pH 7.45 Bicarbonate Actual 25.3 POC Total CO2 26 Base Excess 1 O2 Saturation 98 O2 % 30 ABG pCO2 36.6 ABG pO2 105 H Respiration Rate 14 O2 Delivery Device Vent Vent Mode A-C Tidal Volume 500 POC PEEP 5 Blood Gas Notified Whom HOSP Sodium Potassium Chloride Carbon Dioxide Anion Gap BUN Creatinine Estim Creat Clear Calc Est GFR (MDRD) Af Amer Est GFR (MDRD) Non-Af BUN/Creatinine Ratio Glucose Calcium MRSA (PCR) Negative 06/21/17 05:20 WBC RBC Hgb Hct MCV MCH MCHC RDW RDW Differential Plt Count MPV Specimen Type Sample Site pH Bicarbonate Actual POC Total CO2 Base Excess O2 Saturation O2 % ABG pCO2 ABG pO2 Respiration Rate O2 Delivery Device Vent Mode Tidal Volume POC PEEP Blood Gas Notified Whom Sodium 137 Potassium 3.5 Chloride 107 Carbon Dioxide 22.0 Anion Gap 8 BUN 9 Creatinine 0.84 Estim Creat Clear Calc 83.03 Est GFR (MDRD) Af Amer 100 Est GFR (MDRD) Non-Af 83 BUN/Creatinine Ratio 10.7 Glucose 114 H Calcium 7.6 L MRSA (PCR) Clinical Impression(s) from Imaging Studies Chest X-Ray 06/20/17 16:25 IMPRESSION: The endotracheal tube terminates about 5.2 cm above the sidney. The gastric tube terminates in the expected location of the body of the stomach. There are no acute cardiopulmonary abnormalities. Electronically Signed: Patricia Brar MD at 16:54 EDT Tel Direct: [phone], Service support , Brain CT 06/20/17 16:33 IMPRESSION: No acute intracranial abnormalities or changes. Electronically Signed: Patricia Brar MD at 17:51 EDT Tel Direct: [phone], Service support , Assessment/Plan Active and Suspected Problems Seizure (Acute) RECOMMENDATIONS: 1. Maintain seizure precautions 2. Increase Keppra per neurology recommendations 3. Given that the patient remains lethargic, recommend that she continue on CPAP throughout the day, with plans to transition back to assist control overnight 4. Repeat spontaneous breathing trial in the morning. 5. Chest x-ray reveals findings concerning for the interval development of an airspace opacity. We will plan to and start empiric Zosyn and obtain sputum culture 6. Okay from my perspective to start tube feeds 7. Discontinue supplemental IV fluids 8. Continue appropriate ICU prophylaxis IMPRESSIONS: 1. Acute respiratory failure The patient was electively intubated in the emergency department for airway protection upon presentation. Subsequent chest imaging reveals the presence of a right sided airspace opacity, concerning for aspiration pneumonia. Given that the patient has been spiking fevers throughout the day, she will be started empirically on Zosyn. MRSA screen was negative. We will plan to obtain sputum culture. Given that the patient seems rather somnolent still, would plan to keep her intubated on CPAP mode mechanical ventilation yet today. She can be transitioned to assist control overnight with plans for repeat spontaneous breathing trial in the morning. 2. Personal history of epilepsy with breakthrough seizure activity Keppra dose will be increased per neurology recommendations. No further seizure activity has been reported. We will continue to maintain the patient on seizure precautions. Continue Ativan as needed. 3. Acute kidney injury Potentially prerenal in etiology, as creatinine has normalized with volume expansion. Urine output is appropriate. No indication for renal replacement therapy. TIME: 45 minutes of critical care time, independent of procedures, was spent addressing the patient's acute respiratory failure, breakthrough seizure activity, acute kidney injury, review of all data and collaboration with the care team. ([id number]) Code Visit 9xxxx: [id number] Critical care first hour
--- NOTE | 2017-06-21 07:37 | PCM.PN.HOSP ---
Patient Problems: Active and Suspected Problems Seizure (Acute) Subjective: Patient was seen and examined in the ICU. Admitted yesterday with an episode of seizure, intubated for airway protection. Patient is said to have passed a spontaneous breathing trial. Patient remains sedated. Of note is that her temperature has been running high, max is 102.7. Chest x-ray on arrival was negative for any acute cardiopulmonary process. But patient was said to have been pooling secretions and I believe she possibly aspirated. Objective: Physical Exam General: - - Intubated and sedated, not pale, not jaundiced HEENT: Atraumatic, Normocephalic, No icterus Oral: Moist Mucosa, No Gingival or Mucosal Lesions/ Ulcerations, - - Endotracheal tube and orogastric tube in place. Neck: No Nodes, Thyroid Normal Size and Texture Lungs: Clear to auscultation, Normal air movement, No rhonchi, No wheeze Cardiovascular: Regular rate, Regular Rhythm, Normal S1, Normal S2, No murmurs Abdomen: Bowel Sounds Present, Soft, Non Tender, Non-Distended, No Hepato-splenomegaly, Obese Extremities: No edema, No Calf Tenderness Skin: No rashes, No breakdown Musculoskeletal: No Tenderness to Palpation of Joints or Extremities, No Muscle Wasting Neurological: - - Is all extremities spontaneously. Withdraws to noxious stimuli. Psych/Mental Status: - Sedated Vitals/I&O's: Vital Signs Temp Pulse Resp BP Pulse Ox 100.5 F H 101 H 22 H 144/78 H 100 06/21/17 06:00 06/21/17 07:03 06/21/17 07:03 06/21/17 06:00 06/21/17 07:03 Oxygen Delivery Method Mechanical Ventilator Weight: 119.9 kg Body Mass Index (BMI) 45.1 Intake and Output for Last 24 Hours 06/19/17 06/20/17 06/21/17 23:59 23:59 23:59 Intake Total 1790.2 / 1790.2 Output Total 2500 / 2500 Balance -709.8 / -709.8 Laboratory Results 06/20/17 19:15: MRSA (PCR) Negative 06/20/17 20:32: Specimen Type ART, Sample Site R Brachial, pH 7.45, Bicarbonate Actual 25.3, POC Total CO2 26, Base Excess 1, O2 Saturation 98, O2 % 30, ABG pCO2 36.6, ABG pO2 105 H, Respiration Rate 14, O2 Delivery Device Vent, Vent Mode A-C, Tidal Volume 500, POC PEEP 5, Blood Gas Notified Whom EMILE MONAHAN 06/21/17 05:05: WBC 7.8, RBC 4.60, Hgb 12.6, Hct 40.1, MCV 87.2, MCH 27.4, MCHC 31.4 L, RDW 13.3, RDW Differential 42.5, Plt Count 140 L, MPV 11.1 06/21/17 05:20: Sodium 137, Potassium 3.5, Chloride 107, Carbon Dioxide 22.0, Anion Gap 8, BUN 9, Creatinine 0.84, Estim Creat Clear Calc 83.03, Est GFR (MDRD) Af Amer 100, Est GFR (MDRD) Non-Af 83, BUN/Creatinine Ratio 10.7, Glucose 114 H, Calcium 7.6 L 06/21/17 07:18: PT Pending, INR Pending Current Medications Albuterol Sulfate (Ventolin Aerosols) 2.5 mg INHALATION Q2H PRN PRN PRN Reason: SHORTNESS OF BREATH Albuterol Sulfate (Ventolin Aerosols) 2.5 mg INHALATION Q4H.RT [facility] Last Admin: 06/21/17 07:02 Dose: 2.5 mg Chlorhexidine Gluconate () 15 ml PO BID [facility] Last Admin: 06/20/17 22:07 Dose: 15 ml Chlorhexidine Gluconate () 1 each TOPICAL DAILY [facility] Last Admin: 06/21/17 05:11 Dose: 1 each Enoxaparin Sodium (Lovenox) 40 mg SC DAILY@1000 RAMIRO Famotidine (Pepcid) 20 mg GT BID [facility] Last Admin: 06/20/17 22:07 Dose: 20 mg Sodium Chloride () 1,000 mls @ 150 mls/hr IV .Q6H40M [facility] Last Admin: 06/21/17 05:11 Dose: 150 mls/hr Fentanyl () 100 mls @ 2.5 mls/hr IV .Q40H [facility] Last Admin: 06/20/17 17:55 Dose: 2.5 mls/hr Propofol (Diprivan) 1,000 mg in 100 mls @ 0 mls/hr CONT INF .Q0M RAMIRO; 5 MCG/KG/MIN PRN Reason: Protocol Last Admin: 06/21/17 01:29 Dose: 10.9 mls/hr Levetiracetam (Keppra Iv) 1,000 mg in 100 mls @ 400 mls/hr IV Q12 RAMIRO Last Admin: 06/20/17 22:07 Dose: 400 mls/hr Lorazepam (Ativan) 1 mg IV Q4H PRN PRN PRN Reason: Seizure Magnesium Hydroxide (Milk Of Magnesia) 30 ml PO DAILY PRN PRN PRN Reason: Constipation Sodium Chloride () 5 - 30 ml IV UD PRN PRN Reason: SALINE FLUSH Last Admin: 06/21/17 05:11 Dose: 10 ml Medical Necessity - Tobacco Use Smoking Status: Current some day smoker Assessment/Plan Active and Suspected Problems Seizure (Acute) 31-year-old female with past medical history of seizure disorder, was supposed to be on Keppra and topiramate, off topiramate for unclear reasons, comes in with a breakthrough seizure, treated for primary airway protection. 1. Acute respiratory failure, status post intubation for airway protection, currently in ICU, being managed by business executive, possible extubation today. 2. Breakthrough seizure in a patient with seizure disorder, Keppra and Ativan as needed, neurology consulted. 3. Fever, persistent, history of pooling of respirations prior to intubation, possible aspiration pneumonitis, will repeat chest x-ray, cultures ?2, would hold off on antibiotics for now. 4. DVT Prophylaxis with Lovenox subcu Code Visit Inpatient E&M: [id number] [facility] Hosp L3
[2017-06-21 07:55] LABS: Allen Test POS; Base Excess 2 mmol/L (-2 to +2); Blood Gas Specimen Type ART; FI02 30; Mode CPAP PS; O2 Delivery Device Vent; PEEP 5; PO2 106 mmHG (75-100); PS 5; SITE R Radial; SO2 98 % (95-99); Time Given 754; Total Carbon Dioxide 27 mmol/L; pH 7.44 (7.35-7.45)
--- NOTE | 2017-06-21 09:40 | RAD_ITS ---
STUDY: X-RAY CHEST REASON FOR EXAM: Female, 31 years old. Fever. Seizures. TECHNIQUE: Single portable frontal chest. COMPARISON: June 20, 2017. FINDINGS: The endotracheal tube tip is identified 2.0 cm proximal to the sidney. There is no pneumothorax. There is stable appearance and positioning of the nasogastric tube with tip in proximal port left of midline and inferior to the left hemidiaphragm. There is now a flame-shaped focus of density within the mid to lower right lung. There is no pleural effusion. Normal size heart. Normal mediastinum and man. Normal visualized pulmonary arteries. Normal visualized aortic arch and descending thoracic aorta. Normal visualized thoracic spine. Normal visualized ribs, clavicles, and shoulders. There is no demonstrated abnormality of the visualized soft tissue structures of the upper abdomen. RAD/Chest 1 View (Portable) IMPRESSION: Subsegmental atelectasis versus early pneumonitis within the mid to lower right lung. Support tubes and lines as above. No pleural effusion. No pneumothorax. No acute osseous abnormality. The cardiomediastinal silhouette appears unremarkable. No evidence of central vascular congestion. Electronically Signed: Jesse Chan MD at 14:41 EDT , Service support ,
[2017-06-21] MEDS: Enoxaparin 40 MG/0.4 ML Syringe SC (09:45)
[2017-06-21] MEDS: levETIRAcetam Oral Solution 500 MG/5 ML 1000 MG GT (09:45)
[2017-06-21] MEDS: Famotidine 20 MG Tablet GT ×2 (09:45→20:50)
[2017-06-21] MEDS: Chlorhexidine 15 ML PO ×2 (09:45→20:59)
--- NOTE | 2017-06-21 10:43 | CASEMGMT ---
See RN CM Assessment Link. DC PLAN: home -Pt is intubated. is not available at this time. -Pt was reportedly independent prior to admission. CM will continue to follow and assist with dc planning if needs arise.Cl MCWILLIAMSN RN ACM
[2017-06-21] MEDS: Piperacil/Tazobactam 3.375 GM/50 ML ML IV ×2 (13:46→20:49)
--- NOTE | 2017-06-21 14:55 | CON.PCM_ITS ---
Problem List (1) Seizure Status: Acute Reason for Consult Date of Consultation: 06/21/17 Reason for Consultation: seizures History of Present Illness: The patient is a 31 year old CF with PMH Seizures, morbid obesity admitted with breakthrough seizures. Patient is intubated, history could not be obtained from patient, history is obtained from the medical records and documentation. Per ED documentation, patient's saw her having staring episode for about 15 minutes following which she had GTCs, was brought to the ED, intubated for airway protection. CT head on admission was reported normal. Patient was on Keppra and Topamax for seizures but per documentation she was not taking Topamax for unclear reasons, she was loaded with Keppra 1 g IV once after admission and Keppra dose was increased to 1250mg BID. Per documentation patient had similar admission in the past for breakthrough seizures, and was noted to be noncompliant with medications, also was intubated in February 2017 when she was admitted with seizures. Labs: WBC-8.5, AST/ALT-, UDS +ve for marijuana, creatinine 1.44-->0.84, UA neg. No documentation of ROD, visual disturbances, sensory loss, new onset focal motor weakness or sensory loss. [] Past Medical History Past Medical History (Chronic Problems): Chronic Problems Seizure (Chronic) Tobacco use (Chronic) Seizures (Chronic) Depression (Chronic) Morbid obesity with BMI of 50.0-59.9, adult (Chronic) Allergies naproxen Allergy (Verified 06/20/17 16:19) Hives Home Medications: Ambulatory Orders Medication Instructions Recorded Amlodipine [Norvasc] 10 mg PO DAILY 09/17/16 levETIRAcetam tablet [Keppra 1,000 mg PO Q12H 09/17/16 tablet] Lives: Spouse/ Significant Other Smoking Status: Current some day smoker Tobacco Use: - - could not be assessed as in intubated Drugs: Marijuana - Smokes 1-2 times per day - *Family History Maternal History Items: No pertinent history, - - Unable to get any family history from the patient as she is intubated and sedated. Review of Systems Constitutional: Reports: - - ROS could not be assessed since patient is intubated Patient Problems: Active and Suspected Problems Seizure (Acute) - Physical Exam General: - - s/p intubation, arousable HEENT: Normocephalic Neck: Supple Lungs: Normal air movement Cardiovascular: Normal S1, Normal S2 Abdomen: Bowel Sounds Present Extremities: No cyanosis Skin: No rashes Musculoskeletal: No Tenderness to Palpation of Joints or Extremities Neurological: - - is currently intubated, spontaneous eye opening, follows VC intermittently, Pupils BERL, EOMI, moves all 4 extremities, plantars B/L flexor , denies any sensory loss, cerebellar/gait could not be assessed, Reflexes + B/ L B/S/T/K/A, limited neurology examination. Vital Signs Temp Pulse Resp BP Pulse Ox 100.9 F H 92 18 132/82 H 100 06/21/17 14:00 06/21/17 14:00 06/21/17 14:00 06/21/17 14:00 06/21/17 14:00 Oxygen Delivery Method Mechanical Ventilator Weight: 119.9 kg Body Mass Index (BMI) 45.1 Intake and Output for Last 24 Hours 06/19/17 06/20/17 06/21/17 23:59 23:59 23:59 Intake Total 2431.2 / 2431.2 Output Total 3650 / 3650 Balance -1218.8 / -1218.8 Laboratory Tests Past 24 Hrs 06/20/17 06/20/17 06/21/17 19:15 20:32 05:05 WBC 7.8 RBC 4.60 Hgb 12.6 Hct 40.1 MCV 87.2 MCH 27.4 MCHC 31.4 L RDW 13.3 RDW Differential 42.5 Plt Count 140 L MPV 11.1 PT INR Specimen Type ART Sample Site R Brachial pH 7.45 Bicarbonate Actual 25.3 POC Total CO2 26 Base Excess 1 O2 Saturation 98 O2 % 30 ABG pCO2 36.6 ABG pO2 105 H Carlo Test Respiration Rate 14 O2 Delivery Device Vent Vent Mode A-C Tidal Volume 500 POC PEEP 5 POC Pressure Suppt Blood Gas Notified Whom HOSP MD Blood Gas Notified Time Sodium Potassium Chloride Carbon Dioxide Anion Gap BUN Creatinine Estim Creat Clear Calc Est GFR (MDRD) Af Amer Est GFR (MDRD) Non-Af BUN/Creatinine Ratio Glucose Calcium MRSA (PCR) Negative 06/21/17 06/21/17 06/21/17 05:20 07:18 07:50 WBC RBC Hgb Hct MCV MCH MCHC RDW RDW Differential Plt Count MPV PT 13.0 INR 1.0 Specimen Type ART Sample Site R Radial pH 7.44 Bicarbonate Actual 26.0 POC Total CO2 27 Base Excess 2 O2 Saturation 98 O2 % 30 ABG pCO2 38.0 ABG pO2 106 H Carlo Test POS Respiration Rate O2 Delivery Device Vent Vent Mode CPAP PS Tidal Volume POC PEEP 5 POC Pressure Suppt 5 Blood Gas Notified Whom ICU Blood Gas Notified Time 754 Sodium 137 Potassium 3.5 Chloride 107 Carbon Dioxide 22.0 Anion Gap 8 BUN 9 Creatinine 0.84 Estim Creat Clear Calc 83.03 Est GFR (MDRD) Af Amer 100 Est GFR (MDRD) Non-Af 83 BUN/Creatinine Ratio 10.7 Glucose 114 H Calcium 7.6 L MRSA (PCR) Assessment/Plan Active and Suspected Problems Seizure (Acute) The patient is a 31 year old CF with PMH Seizures, morbid obesity admitted with breakthrough seizures. Patient is intubated, history could not be obtained from patient, history is obtained from the medical records and documentation. Per ED documentation, patient's saw her having staring episode for about 15 minutes following which she had GTCs, was brought to the ED, intubated for airway protection. CT head on admission was reported normal. Patient was on Keppra and Topamax for seizures but per documentation she was not taking Topamax for unclear reasons, she was loaded with Keppra 1 g IV once after admission and Keppra dose was increased to 1250mg BID. Per documentation patient had similar admission in the past for breakthrough seizures, and was noted to be noncompliant with medications, also was intubated in February 2017 when she was admitted with seizures. Labs: WBC-8.5, AST/ALT-/, UDS +ve for marijuana, creatinine 1.44-->0.84. No documentation of ROD, visual disturbances, sensory loss, new onset focal motor weakness or sensory loss. Impression Breakthrough seizures Plan -CT head reviewed -Keppra 1250 mg BID -Patient needs to be compliant with her AEDs -No driving for 6 months -Labs reviewed -Seizure precautions -May need video EEG if has recurrent seizures to rule out DILMA -GI/DVT prophylaxis -Further medical management per primary team and ICU team -Follow up with Neurology as outpatient in 4-6 weeks -Please call with questions if any -Thank you for allowing us to participate in patient's care and management I spent 60 minutes of critical care minutes taking history, doing physical examination, reviewing medical records, and coordinating care Code Visit Inpatient E&M: [id number] Init Hosp L3
[2017-06-21] MEDS: Vital AF 1.2 Cal Liquid 1,000 ML 70 ML GT (15:56)
[2017-06-21] MEDS: Acetaminophen 650 MG/20 ML UDC GT (20:50)
[2017-06-21] MEDS: Propofol 10MG/Ml 1,000 MG/100 ML Bottle 5 MG CONT INF (21:51)
[2017-06-22] VITALS (24 sets, daily range): BP systolic 107–135; BP diastolic 47–78; PULSE 71–98; RESP 14–27; TEMP 36.6–37.9; O2SAT 92–100
[2017-06-22] MEDS: Albuterol 2.5 MG/3 ML VIAL.NEB. INHALATION ×3 (03:13→08:06)
[2017-06-22] MEDS: Piperacil/Tazobactam 3.375 GM/50 ML ML IV ×2 (05:42→13:08)
--- NOTE | 2017-06-22 06:50 | PN_ITS ---
Subjective: The patient was seen and examined at the bedside this morning. Events from the last 24 hours have been reviewed. The patient was largely afebrile overnight but has a low-grade fever this morning. FiO2 requirement remains minimal 30%. The patient is overall net -1.1 L for the admission. Patient is currently doing well on her CPAP trial. Minimal secretions were noted by nursing staff. The patient is alert and following commands appropriately. Objective: The patient's most recent lab work, culture data and imaging studies have all been personally reviewed. Sputum culture is pending. General: Alert, Cooperative, - - Remains intubated and mechanically ventilated. Currently tolerating CPAP mode mechanical ventilation without issue. HEENT: Atraumatic, PERRLA, Normocephalic Oral: No Gingival or Mucosal Lesions/ Ulcerations, - - Endotracheal and OG tubes remain in place Neck: Supple, No Nodes, Trachea Midline Lungs: No rhonchi, No wheeze, No rales, Diminished Cardiovascular: Regular rate, Regular Rhythm, Normal S1, Normal S2, No murmurs Abdomen: Bowel Sounds Present, Soft, Non Tender, Obese Extremities: No clubbing, No cyanosis, No edema Skin: No breakdown Musculoskeletal: No Muscle Wasting Lymphatic: No Cervical, Supraclavicular, or Inguinal Adenopathy Neurological: - - No focal neurological deficits. Opens eyes and follows commands appropriately. Psych/Mental Status: Flat Affect Vital Signs Temp Pulse Resp BP Pulse Ox 100.3 F H 92 14 133/78 H 98 06/22/17 06:00 06/22/17 06:00 06/22/17 06:00 06/22/17 06:00 06/22/17 06:00 Oxygen Delivery Method Mechanical Ventilator Weight: 261 lb 14.546 oz Body Mass Index (BMI) 45.1 Intake and Output for Last 24 Hours 06/20/17 06/21/17 06/22/17 23:59 23:59 23:59 Intake Total 3030.2 / 3030.2 279 / 279 Output Total 4120 / 4120 400 / 400 Balance -1089.8 / -1089.8 -121 / -121 Labs (Last 48 Hours) 06/20/17 06/20/17 06/21/17 19:15 20:32 05:05 WBC 7.8 RBC 4.60 Hgb 12.6 Hct 40.1 MCV 87.2 MCH 27.4 MCHC 31.4 L RDW 13.3 RDW Differential 42.5 Plt Count 140 L MPV 11.1 PT INR Specimen Type ART Sample Site R Brachial pH 7.45 Bicarbonate Actual 25.3 POC Total CO2 26 Base Excess 1 O2 Saturation 98 O2 % 30 ABG pCO2 36.6 ABG pO2 105 H Carlo Test Respiration Rate 14 O2 Delivery Device Vent Vent Mode A-C Tidal Volume 500 POC PEEP 5 POC Pressure Suppt Blood Gas Notified Whom HOSP MD Blood Gas Notified Time Sodium Potassium Chloride Carbon Dioxide Anion Gap BUN Creatinine Estim Creat Clear Calc Est GFR (MDRD) Af Amer Est GFR (MDRD) Non-Af BUN/Creatinine Ratio Glucose Calcium MRSA (PCR) Negative 06/21/17 06/21/17 06/21/17 05:20 07:18 07:50 WBC RBC Hgb Hct MCV MCH MCHC RDW RDW Differential Plt Count MPV PT 13.0 INR 1.0 Specimen Type ART Sample Site R Radial pH 7.44 Bicarbonate Actual 26.0 POC Total CO2 27 Base Excess 2 O2 Saturation 98 O2 % 30 ABG pCO2 38.0 ABG pO2 106 H Carlo Test POS Respiration Rate O2 Delivery Device Vent Vent Mode CPAP PS Tidal Volume POC PEEP 5 POC Pressure Suppt 5 Blood Gas Notified Whom ICU MD Blood Gas Notified Time 754 Sodium 137 Potassium 3.5 Chloride 107 Carbon Dioxide 22.0 Anion Gap 8 BUN 9 Creatinine 0.84 Estim Creat Clear Calc 83.03 Est GFR (MDRD) Af Amer 100 Est GFR (MDRD) Non-Af 83 BUN/Creatinine Ratio 10.7 Glucose 114 H Calcium 7.6 L MRSA (PCR) Clinical Impression(s) from Imaging Studies Chest X-Ray 06/20/17 16:25 IMPRESSION: The endotracheal tube terminates about 5.2 cm above the sidney. The gastric tube terminates in the expected location of the body of the stomach. There are no acute cardiopulmonary abnormalities. Electronically Signed: Patricia Brar MD at 16:54 EDT Tel Direct: [phone], Service support , Brain CT 06/20/17 16:33 IMPRESSION: No acute intracranial abnormalities or changes. Electronically Signed: Patricia Brar MD at 17:51 EDT Tel Direct: [phone], Service support , Chest X-Ray 06/21/17 09:40 IMPRESSION: Subsegmental atelectasis versus early pneumonitis within the mid to lower right lung. Support tubes and lines as above. No pleural effusion. No pneumothorax. No acute osseous abnormality. The cardiomediastinal silhouette appears unremarkable. No evidence of central vascular congestion. Electronically Signed: Jesse Chan MD at 14:41 EDT , Service support , Medical Necessity - Tobacco Use Smoking Status: Current some day smoker Tobacco Use: - - could not be assessed as in intubated Assessment/Plan Active and Suspected Problems Seizure (Acute) RECOMMENDATIONS: 1. Proceed with a trial of extubation this morning. 2. Once extubated, wean supplemental oxygen to maintain saturations at or above 90% 3. Perform bedside swallow evaluation and advance diet accordingly 4. Gaspar catheter can be removed upon successful liberation from mechanical ventilation 5. Continue Keppra per neurology recommendations 6. Continue Zosyn, pending finalized infectious workup 7. Change aerosols to PRN 8. Encourage incentive spirometer use and mobilize patient as tolerated 9. Patient will be monitored postextubation and if she does well she can be transferred out of the ICU today. IMPRESSIONS: 1. Acute respiratory failure The patient was electively intubated in the emergency department for airway protection upon presentation. Subsequent chest imaging reveals the presence of a right sided airspace opacity, concerning for aspiration pneumonia. Due to the presence of fevers, the patient was started on empiric Zosyn, pending infectious workup. This will be continued until sputum culture has finalized. The patient is currently a candidate for a trial of extubation. Once extubated , her supplemental oxygen can be weaned to maintain saturations at or above 90% . Perform bedside swallow evaluation and advance diet accordingly. Gsapar catheter can be removed. Encourage incentive spirometer use and mobilize patient as tolerated. 2. Personal history of epilepsy with breakthrough seizure activity Keppra dose was increased per neurology recommendations. No further seizure activity has been reported. We will continue to maintain the patient on seizure precautions. 3. Acute kidney injury Potentially prerenal in etiology, as creatinine has normalized with volume expansion. Urine output is appropriate. No indication for renal replacement therapy. TIME: 35 minutes of critical care time, independent of procedures, was spent addressing the patient's acute respiratory failure, breakthrough seizure activity, acute kidney injury, review of all data and collaboration with the care team. ([id number]) Code Visit 9xxxx: [id number] Critical care first hour
--- NOTE | 2017-06-22 07:38 | PCM.PN.HOSP ---
Patient Problems: Active and Suspected Problems Seizure (Acute) Subjective: Patient was seen and examined. Extubated this morning. Complains of some chest discomforts from intubation. No seizures noted overnight. Still having low-grade fever. Started on Zosyn for aspiration pneumonia. Objective: Physical Exam General: Alert oriented ?3, not pale, obese, no jaundice, able to complicate well. HEENT: Atraumatic, Normocephalic, No icterus Oral: Moist Mucosa, No Gingival or Mucosal Lesions/ Ulcerations, - - Endotracheal tube and orogastric tube in place. Neck: No Nodes, Thyroid Normal Size and Texture Lungs: Managed air entry at the lung bases no wheezes Cardiovascular: Regular rate, Regular Rhythm, Normal S1, Normal S2, No murmurs Abdomen: Bowel Sounds Present, Soft, Non Tender, Non-Distended, No Hepato-splenomegaly, Obese Extremities: No edema, No Calf Tenderness Skin: No rashes, No breakdown Musculoskeletal: No Tenderness to Palpation of Joints or Extremities, No Muscle Wasting Neurological: - - Is all extremities spontaneously. Withdraws to noxious stimuli. Psych/Mental Status: - Sedated Vitals/I&O's: Vital Signs Temp Pulse Resp BP Pulse Ox 100.3 F H 98 20 H 133/78 H 92 06/22/17 06:00 06/22/17 07:24 06/22/17 07:24 06/22/17 06:00 06/22/17 07:24 Oxygen Flow Rate (L/min) 2 Oxygen Delivery Method Nasal Cannula Weight: 118.8 kg Body Mass Index (BMI) 45.1 Intake and Output for Last 24 Hours 06/20/17 06/21/17 06/22/17 23:59 23:59 23:59 Intake Total 3030.2 / 3030.2 279 / 279 Output Total 4120 / 4120 400 / 400 Balance -1089.8 / -1089.8 -121 / -121 Laboratory Results 06/21/17 07:18: PT 13.0, INR 1.0 06/21/17 07:50: Specimen Type ART, Sample Site R Radial, pH 7.44, Bicarbonate Actual 26.0, POC Total CO2 27, Base Excess 2, O2 Saturation 98, O2 % 30, ABG pCO2 38.0, ABG pO2 106 H, Carlo Test POS, O2 Delivery Device Vent, Vent Mode CPAP PS, POC PEEP 5, POC Pressure Suppt 5, Blood Gas Notified Whom ICU MD, Blood Gas Notified Time 754 Current Medications Acetaminophen (Tylenol Liquid) 650 mg GT Q6H PRN PRN PRN Reason: FEVER Last Admin: 06/21/17 20:50 Dose: 650 mg Albuterol Sulfate (Ventolin Aerosols) 2.5 mg INHALATION Q2H PRN PRN PRN Reason: SHORTNESS OF BREATH Albuterol Sulfate (Ventolin Aerosols) 2.5 mg INHALATION Q4H.RT [facility] Last Admin: 06/22/17 06:24 Dose: 2.5 mg Chlorhexidine Gluconate () 15 ml PO BID [facility] Last Admin: 06/21/17 20:59 Dose: 15 ml Chlorhexidine Gluconate () 1 each TOPICAL DAILY [facility] Last Admin: 06/21/17 05:11 Dose: 1 each Enoxaparin Sodium (Lovenox) 40 mg SC DAILY@1000 RAMIRO Last Admin: 06/21/17 09:45 Dose: 40 mg Famotidine (Pepcid) 20 mg GT BID [facility] Last Admin: 06/21/17 20:50 Dose: 20 mg Fentanyl () 100 mls @ 2.5 mls/hr IV .Q40H [facility] Last Admin: 06/21/17 21:52 Dose: 2.5 mls/hr Propofol (Diprivan) 1,000 mg in 100 mls @ 0 mls/hr CONT INF .Q0M [facility]; 5 MCG/KG/MIN PRN Reason: Protocol Last Admin: 06/21/17 21:51 Dose: 5 mls/hr Piperacillin Sod/Tazobactam Sod (Zosyn) 3.375 gm in 50 mls @ 12.5 mls/hr IV Q8 [facility] Last Admin: 06/22/17 05:42 Dose: 12.5 mls/hr Enteral Nutritional Formula (Vital Af 1.2 Max Liquid) 1,000 mls @ 70 mls/hr GT .[id number] [facility] Last Admin: 06/22/17 05:43 Dose: Not Given Levetiracetam (Keppra Iv) 125 mls @ 500 mls/hr IV BID [facility] Last Admin: 06/21/17 20:49 Dose: 500 mls/hr Lorazepam (Ativan) 1 mg IV Q4H PRN PRN PRN Reason: Seizure Magnesium Hydroxide (Milk Of Magnesia) 30 ml PO DAILY PRN PRN PRN Reason: Constipation Sodium Chloride () 5 - 30 ml IV UD PRN PRN Reason: SALINE FLUSH Last Admin: 06/21/17 13:47 Dose: 10 ml Medical Necessity - Tobacco Use Smoking Status: Current some day smoker Tobacco Use: - - could not be assessed as in intubated Assessment/Plan Active and Suspected Problems Seizure (Acute) 31-year-old female with past medical history of seizure disorder, was supposed to be on Keppra and topiramate, off topiramate for unclear reasons, comes in with a breakthrough seizure, treated for primary airway protection. 1. Acute respiratory failure, status post intubation for airway protection, status post extubation today, on 2 L of oxygen, will continue to wean off for SPO2 more than 94%, encourage use of incentive spirometer 2. Breakthrough seizure in a patient with seizure disorder, seizure seen overnight, neurology consulted, started on oral Keppra 1250 mg twice daily, will continue to monitor patient 3. Fever secondary to aspiration pneumonitis, started on IV Zosyn, continue on this for today and transition to oral Augmentin from tomorrow. 4. Hyperglycemia, obesity, will check HbA1c 5. DVT Prophylaxis with Lovenox subcu Code Visit Inpatient E&M: [id number] [facility] Hosp L3
--- NOTE | 2017-06-22 07:46 | PN_ITS ---
Patient Problems: Active and Suspected Problems Seizure (Acute) Subjective: Patient was seen and examined. Extubated this morning. Complains of some chest discomforts from intubation. No seizures noted overnight. Still having low- grade fever. Started on Zosyn for aspiration pneumonia. Objective: Physical Exam General: Alert oriented ?3, not pale, obese, no jaundice, able to complicate well. HEENT: Atraumatic, Normocephalic, No icterus Oral: Moist Mucosa, No Gingival or Mucosal Lesions/ Ulcerations, - - Endotracheal tube and orogastric tube in place. Neck: No Nodes, Thyroid Normal Size and Texture Lungs: Managed air entry at the lung bases no wheezes Cardiovascular: Regular rate, Regular Rhythm, Normal S1, Normal S2, No murmurs Abdomen: Bowel Sounds Present, Soft, Non Tender, Non-Distended, No Hepato- splenomegaly, Obese Extremities: No edema, No Calf Tenderness Skin: No rashes, No breakdown Musculoskeletal: No Tenderness to Palpation of Joints or Extremities, No Muscle Wasting Neurological: - - Is all extremities spontaneously. Withdraws to noxious stimuli. Psych/Mental Status: - Sedated Vitals/I&O's: Vital Signs Temp Pulse Resp BP Pulse Ox 100.3 F H 98 20 H 133/78 H 92 06/22/17 06:00 06/22/17 07:24 06/22/17 07:24 06/22/17 06:00 06/22/17 07:24 Oxygen Flow Rate (L/min) 2 Oxygen Delivery Method Nasal Cannula Weight: 118.8 kg Body Mass Index (BMI) 45.1 Intake and Output for Last 24 Hours 06/20/17 06/21/17 06/22/17 23:59 23:59 23:59 Intake Total 3030.2 / 3030.2 279 / 279 Output Total 4120 / 4120 400 / 400 Balance -1089.8 / -1089.8 -121 / -121 Laboratory Results 06/21/17 07:18: PT 13.0, INR 1.0 06/21/17 07:50: Specimen Type ART, Sample Site R Radial, pH 7.44, Bicarbonate Actual 26.0, POC Total CO2 27, Base Excess 2, O2 Saturation 98, O2 % 30, ABG pCO2 38.0, ABG pO2 106 H, Carlo Test POS, O2 Delivery Device Vent, Vent Mode CPAP PS, POC PEEP 5, POC Pressure Suppt 5, Blood Gas Notified Whom ICU MD, Blood Gas Notified Time 754 Current Medications Acetaminophen (Tylenol Liquid) 650 mg GT Q6H PRN PRN PRN Reason: FEVER Last Admin: 06/21/17 20:50 Dose: 650 mg Albuterol Sulfate (Ventolin Aerosols) 2.5 mg INHALATION Q2H PRN PRN PRN Reason: SHORTNESS OF BREATH Albuterol Sulfate (Ventolin Aerosols) 2.5 mg INHALATION Q4H.RT [facility] Last Admin: 06/22/17 06:24 Dose: 2.5 mg Chlorhexidine Gluconate () 15 ml PO BID [facility] Last Admin: 06/21/17 20:59 Dose: 15 ml Chlorhexidine Gluconate () 1 each TOPICAL DAILY [facility] Last Admin: 06/21/17 05:11 Dose: 1 each Enoxaparin Sodium (Lovenox) 40 mg SC DAILY@1000 RAMIRO Last Admin: 06/21/17 09:45 Dose: 40 mg Famotidine (Pepcid) 20 mg GT BID [facility] Last Admin: 06/21/17 20:50 Dose: 20 mg Fentanyl () 100 mls @ 2.5 mls/hr IV .Q40H [facility] Last Admin: 06/21/17 21:52 Dose: 2.5 mls/hr Propofol (Diprivan) 1,000 mg in 100 mls @ 0 mls/hr CONT INF .Q0M [facility]; 5 MCG/KG/ MIN PRN Reason: Protocol Last Admin: 06/21/17 21:51 Dose: 5 mls/hr Piperacillin Sod/Tazobactam Sod (Zosyn) 3.375 gm in 50 mls @ 12.5 mls/hr IV Q8 [facility] Last Admin: 06/22/17 05:42 Dose: 12.5 mls/hr Enteral Nutritional Formula (Vital Af 1.2 Max Liquid) 1,000 mls @ 70 mls/hr GT .[id number] [facility] Last Admin: 06/22/17 05:43 Dose: Not Given Levetiracetam (Keppra Iv) 125 mls @ 500 mls/hr IV BID [facility] Last Admin: 06/21/17 20:49 Dose: 500 mls/hr Lorazepam (Ativan) 1 mg IV Q4H PRN PRN PRN Reason: Seizure Magnesium Hydroxide (Milk Of Magnesia) 30 ml PO DAILY PRN PRN PRN Reason: Constipation Sodium Chloride () 5 - 30 ml IV UD PRN PRN Reason: SALINE FLUSH Last Admin: 06/21/17 13:47 Dose: 10 ml Medical Necessity - Tobacco Use Smoking Status: Current some day smoker Tobacco Use: - - could not be assessed as in intubated Assessment/Plan Active and Suspected Problems Seizure (Acute) 31-year-old female with past medical history of seizure disorder, was supposed to be on Keppra and topiramate, off topiramate for unclear reasons, comes in with a breakthrough seizure, treated for primary airway protection. 1. Acute respiratory failure, status post intubation for airway protection, status post extubation today, on 2 L of oxygen, will continue to wean off for SPO2 more than 94%, encourage use of incentive spirometer 2. Breakthrough seizure in a patient with seizure disorder, seizure seen overnight, neurology consulted, started on oral Keppra 1250 mg twice daily, will continue to monitor patient 3. Fever secondary to aspiration pneumonitis, started on IV Zosyn, continue on this for today and transition to oral Augmentin from tomorrow. 4. Hyperglycemia, obesity, will check HbA1c 5. DVT Prophylaxis with Lovenox subcu Code Visit Inpatient E&M: [id number] [facility] Hosp L3
--- NOTE | 2017-06-22 07:58 | EKG12_ITS ---
Test Reason : CHEST PAIN Blood Pressure : / mmHG Vent. Rate : 086 BPM Atrial Rate : 086 BPM P-R Int : 164 ms QRS Dur : 072 ms QT Int : 392 ms P-R-T Axes : 041 047 053 degrees QTc Int : 469 ms Normal sinus rhythm Normal ECG When compared with ECG of 20-JUN-2017 16:47, MANUAL COMPARISON REQUIRED, DATA IS UNCONFIRMED Confirmed by GEORGI FARNSWORTH ([id number]), news videotape editor ABDOUL BANSAL ([id number]) on 06/28/2017 8:43:20 AM Referred By: GIL Confirmed By:GEORGI FARNSWORTH
[2017-06-22] MEDS: CHLORHEXIDINE GLUC 2% CLOTH 1 EACH TOWELETTE TOPICAL (09:48)
[2017-06-22] MEDS: Enoxaparin 40 MG/0.4 ML Syringe SC (09:48)
[2017-06-22 11:25] LABS: Hemoglobin A1c 4.7 % (4.2-6.3)
[2017-06-22] MEDS: Cefazolin 2 GM in 0.9% Normal Saline 100 ML IV (21:03)
[2017-06-23 02:28] VITALS: BP 111/64; PULSE 78; RESP 16; TEMP 37.1; O2SAT 94
[2017-06-23 03:00] VITALS: PULSE 81
[2017-06-23] MEDS: 0.9% NaCl Peripheral Flush Adult/Peds IV (04:32)
[2017-06-23 04:43] LABS: Absolute Lymphocyte Count 1.42 X10^3/ul (0.83-4.51); Absolute Neutrophil Count 5.1 X10^3/uL (2.0-7.7); Basophil# 0.01 X10^3/uL; Basophil% 0.1 % (0-1); Eosinophils% 5.3 % (0-5); Hematocrit 36.8 % (37-47); Hemoglobin 11.3 g/dl (12.0-15.0); Lymphocyte # 1.42 X10^3/ul (4.0); Lymphocyte % 18.7 % (19-41); Mean Corp Hgb Conc 30.7 g/gl (32-36); Monocyte% 9.2 % (0-10); Neutrophil # 5.06 X10^3/uL (2.7-7.7); Neutrophil % 66.6 % (47-70); Platelet Count 180 K/mm3 (150-450); RBC Distribution Width CV 13.3 % (11.6-14.6); RBC Distribution Width SD 42.5 fl (35.1-43.9); Red Blood Count 4.18 M/mm3 (4.2-5.4); White Blood Count 7.6 K/mm3 (4.4-11.0)
[2017-06-23 04:47] LABS: POSITIVE COUNT NO; POSITIVE DIFFERENTIAL NO; POSITIVE MORPHOLOGY NO
[2017-06-23 04:54] LABS: Anion Gap 5 (5-15); BUN 11 mg/dL (7-18); BUN/Creat Ratio 13.6 RATIO (10-20); Calcium,Total 8.3 mg/dL (8.5-10.1); Chloride 109 mmol/L (98-107); Creatinine, Serum 0.81 mg/dL (0.55-1.02); EST Glomerular Filtration Rate 87 mL/min (>60); Est Glom Filt Rate - Afr Amer 105 mL/min (>60); Glucose 80 mg/dL (74-106); Potassium 3.9 mmol/L (3.5-5.1); Sodium Level 142 mmol/L (136-145)
[2017-06-23] MEDS: Cefazolin 2 GM in 0.9% Normal Saline 100 ML IV (05:20)
--- NOTE | 2017-06-23 07:04 | NURSING ---
Primary RN agrees with charting completed by Fadi Pringle director of nursing.
[2017-06-23 07:16] VITALS: PULSE 72
--- NOTE | 2017-06-23 07:22 | PCM.PROGNOTE ---
Patient Problems: Active and Suspected Problems Seizure (Acute) Subjective: The patient was seen and examined at the bedside this morning. Events from the last 24 hours have been reviewed. The patient is currently afebrile, hemodynamically stable and maintaining appropriate oxygen saturations on room air. Patient is done well clinically following transfer out of the intensive care unit yesterday. Vancomycin was added to the patient's antibiotic regimen yesterday, as staph aureus was noted to be growing from her sputum culture. Objective: The patient's most recent lab work, culture data and imaging studies have all been personally reviewed. Sputum culture was positive for 3+ MSSA. - Physical Exam General: Alert, Cooperative, No apparent distress HEENT: Atraumatic, PERRLA, Normocephalic Oral: No Gingival or Mucosal Lesions/ Ulcerations Neck: Supple, No Nodes, Trachea Midline Lungs: No rhonchi, No wheeze, No rales, Diminished Cardiovascular: Regular rate, Regular Rhythm, Normal S1, Normal S2, No murmurs Abdomen: Bowel Sounds Present, Soft, Non Tender, Obese Extremities: No clubbing, No cyanosis, No edema Skin: No breakdown Musculoskeletal: No Muscle Wasting Lymphatic: No Cervical, Supraclavicular, or Inguinal Adenopathy Neurological: Neuro grossly intact Psych/Mental Status: Flat Affect Vital Signs Temp Pulse Resp BP Pulse Ox 98.7 F 81 16 111/64 94 06/23/17 02:28 06/23/17 03:00 06/23/17 02:28 06/23/17 02:28 06/23/17 02:28 Oxygen Flow Rate (L/min) 2 Oxygen Delivery Method Room Air Weight: 260 lb 2.327 oz Body Mass Index (BMI) 45.1 Intake and Output for Last 24 Hours 06/21/17 06/22/17 06/23/17 23:59 23:59 23:59 Intake Total 3030.2 / 3030.2 1252 / 1252 661.7 / 661.7 Output Total 4120 / 4120 550 / 550 Balance -1089.8 / -1089.8 702 / 702 661.7 / 661.7 Microbiology Past 72 Hours 06/21/17 13:18 Gram Stain - Final Sputum, Induced/Lukens Respiratory Culture - Preliminary Staphylococcus aureus Laboratory Tests Past 24 Hrs 06/21/17 06/22/17 06/23/17 05:05 08:15 04:30 WBC 7.6 RBC 4.18 L Hgb 11.3 L Hct 36.8 L MCV 88.0 MCH 27.0 MCHC 30.7 L RDW 13.3 RDW Differential 42.5 Plt Count 180 MPV 11.0 Immature Gran % (Auto) 0.100 Neut % (Auto) 66.6 Lymph % (Auto) 18.7 L Bertie % (Auto) 9.2 Eos % (Auto) 5.3 H Baso % (Auto) 0.1 Absolute Neuts (auto) 5.1 Absolute Lymphs (auto) 1.42 Total Counted Not Reportable Sodium Potassium Chloride Carbon Dioxide Anion Gap BUN Creatinine Estim Creat Clear Calc Est GFR (MDRD) Af Amer Est GFR (MDRD) Non-Af BUN/Creatinine Ratio Glucose Hemoglobin A1c 4.7 Calcium Troponin I < 0.02 06/23/17 04:30 WBC RBC Hgb Hct MCV MCH MCHC RDW RDW Differential Plt Count MPV Immature Gran % (Auto) Neut % (Auto) Lymph % (Auto) Bertie % (Auto) Eos % (Auto) Baso % (Auto) Absolute Neuts (auto) Absolute Lymphs (auto) Total Counted Sodium 142 Potassium 3.9 Chloride 109 H Carbon Dioxide 28.0 Anion Gap 5 BUN 11 Creatinine 0.81 Estim Creat Clear Calc 86.10 Est GFR (MDRD) Af Amer 105 Est GFR (MDRD) Non-Af 87 BUN/Creatinine Ratio 13.6 Glucose 80 Hemoglobin A1c Calcium 8.3 L Troponin I Clinical Impression(s) from Imaging Studies Chest X-Ray 06/20/17 16:25 IMPRESSION: The endotracheal tube terminates about 5.2 cm above the sidney. The gastric tube terminates in the expected location of the body of the stomach. There are no acute cardiopulmonary abnormalities. Electronically Signed: Patricia Brar MD at 16:54 EDT Tel Direct: [phone], Service support , Brain CT 06/20/17 16:33 IMPRESSION: No acute intracranial abnormalities or changes. Electronically Signed: Patricia Brar MD at 17:51 EDT Tel Direct: [phone], Service support , Chest X-Ray 06/21/17 09:40 IMPRESSION: Subsegmental atelectasis versus early pneumonitis within the mid to lower right lung. Support tubes and lines as above. No pleural effusion. No pneumothorax. No acute osseous abnormality. The cardiomediastinal silhouette appears unremarkable. No evidence of central vascular congestion. Electronically Signed: Jesse Chan MD at 14:41 EDT , Service support , Medical Necessity - Tobacco Use Smoking Status: Current some day smoker Tobacco Use: - - could not be assessed as in intubated Assessment/Plan Active and Suspected Problems Seizure (Acute) RECOMMENDATIONS: 1. Continue Keppra per neurology recommendations 2. Transition to Duricef by mouth with plans to complete a 7 day treatment course 3. Continue PRN aerosol 4. Encourage incentive spirometer use and mobilize patient as tolerated IMPRESSIONS: 1. Acute respiratory failure The patient was electively intubated in the emergency department for airway protection upon presentation. Subsequent chest imaging reveals the presence of a right sided airspace opacity, concerning for aspiration pneumonia. Sputum culture was positive for MSSA. Therefore, the patient's Zosyn can be de-escalated to Duricef p.o. with plans to complete a 7 day treatment course. Encourage incentive spirometer use and mobilize patient as tolerated. 2. Personal history of epilepsy with breakthrough seizure activity Continue Keppra per neurology recommendations. No further seizure activity has been reported. We will continue to maintain the patient on seizure precautions. Close outpatient follow-up with neurology would be recommended. 3. Acute kidney injury Resolved. Likely prerenal in etiology, as creatinine has normalized with volume expansion. Urine output is appropriate. No indication for renal replacement therapy. This note was generated with [employer] dictation software. It may contain incorrect words, spelling, and punctuation that were not noted in checking the note before signing. Code Visit Inpatient E&M: 68758 Subs Hosp L2
--- NOTE | 2017-06-23 07:27 | PN_ITS ---
Patient Problems: Active and Suspected Problems Seizure (Acute) Subjective: The patient was seen and examined at the bedside this morning. Events from the last 24 hours have been reviewed. The patient is currently afebrile, hemodynamically stable and maintaining appropriate oxygen saturations on room air. Patient is done well clinically following transfer out of the intensive care unit yesterday. Vancomycin was added to the patient's antibiotic regimen yesterday, as staph aureus was noted to be growing from her sputum culture. Objective: The patient's most recent lab work, culture data and imaging studies have all been personally reviewed. Sputum culture was positive for 3+ MSSA. - Physical Exam General: Alert, Cooperative, No apparent distress HEENT: Atraumatic, PERRLA, Normocephalic Oral: No Gingival or Mucosal Lesions/ Ulcerations Neck: Supple, No Nodes, Trachea Midline Lungs: No rhonchi, No wheeze, No rales, Diminished Cardiovascular: Regular rate, Regular Rhythm, Normal S1, Normal S2, No murmurs Abdomen: Bowel Sounds Present, Soft, Non Tender, Obese Extremities: No clubbing, No cyanosis, No edema Skin: No breakdown Musculoskeletal: No Muscle Wasting Lymphatic: No Cervical, Supraclavicular, or Inguinal Adenopathy Neurological: Neuro grossly intact Psych/Mental Status: Flat Affect Vital Signs Temp Pulse Resp BP Pulse Ox 98.7 F 81 16 111/64 94 06/23/17 02:28 06/23/17 03:00 06/23/17 02:28 06/23/17 02:28 06/23/17 02:28 Oxygen Flow Rate (L/min) 2 Oxygen Delivery Method Room Air Weight: 260 lb 2.327 oz Body Mass Index (BMI) 45.1 Intake and Output for Last 24 Hours 06/21/17 06/22/17 06/23/17 23:59 23:59 23:59 Intake Total 3030.2 / 3030.2 1252 / 1252 661.7 / 661.7 Output Total 4120 / 4120 550 / 550 Balance -1089.8 / -1089.8 702 / 702 661.7 / 661.7 Microbiology Past 72 Hours 06/21/17 13:18 Gram Stain - Final Sputum, Induced/Lukens Respiratory Culture - Preliminary Staphylococcus aureus Laboratory Tests Past 24 Hrs 06/21/17 06/22/17 06/23/17 05:05 08:15 04:30 WBC 7.6 RBC 4.18 L Hgb 11.3 L Hct 36.8 L MCV 88.0 MCH 27.0 MCHC 30.7 L RDW 13.3 RDW Differential 42.5 Plt Count 180 MPV 11.0 Immature Gran % (Auto) 0.100 Neut % (Auto) 66.6 Lymph % (Auto) 18.7 L Jewell % (Auto) 9.2 Eos % (Auto) 5.3 H Baso % (Auto) 0.1 Absolute Neuts (auto) 5.1 Absolute Lymphs (auto) 1.42 Total Counted Not Reportable Sodium Potassium Chloride Carbon Dioxide Anion Gap BUN Creatinine Estim Creat Clear Calc Est GFR (MDRD) Af Amer Est GFR (MDRD) Non-Af BUN/Creatinine Ratio Glucose Hemoglobin A1c 4.7 Calcium Troponin I < 0.02 06/23/17 04:30 WBC RBC Hgb Hct MCV MCH MCHC RDW RDW Differential Plt Count MPV Immature Gran % (Auto) Neut % (Auto) Lymph % (Auto) Jewell % (Auto) Eos % (Auto) Baso % (Auto) Absolute Neuts (auto) Absolute Lymphs (auto) Total Counted Sodium 142 Potassium 3.9 Chloride 109 H Carbon Dioxide 28.0 Anion Gap 5 BUN 11 Creatinine 0.81 Estim Creat Clear Calc 86.10 Est GFR (MDRD) Af Amer 105 Est GFR (MDRD) Non-Af 87 BUN/Creatinine Ratio 13.6 Glucose 80 Hemoglobin A1c Calcium 8.3 L Troponin I Clinical Impression(s) from Imaging Studies Chest X-Ray 06/20/17 16:25 IMPRESSION: The endotracheal tube terminates about 5.2 cm above the sidney. The gastric tube terminates in the expected location of the body of the stomach. There are no acute cardiopulmonary abnormalities. Electronically Signed: Patricia Brar MD at 16:54 EDT Tel Direct: [phone], Service support , Brain CT 06/20/17 16:33 IMPRESSION: No acute intracranial abnormalities or changes. Electronically Signed: Patricia Brar MD at 17:51 EDT Tel Direct: [phone], Service support , Chest X-Ray 06/21/17 09:40 IMPRESSION: Subsegmental atelectasis versus early pneumonitis within the mid to lower right lung. Support tubes and lines as above. No pleural effusion. No pneumothorax. No acute osseous abnormality. The cardiomediastinal silhouette appears unremarkable. No evidence of central vascular congestion. Electronically Signed: Jesse Chan MD at 14:41 EDT , Service support , Medical Necessity - Tobacco Use Smoking Status: Current some day smoker Tobacco Use: - - could not be assessed as in intubated Assessment/Plan Active and Suspected Problems Seizure (Acute) RECOMMENDATIONS: 1. Continue Keppra per neurology recommendations 2. Transition to Duricef by mouth with plans to complete a 7 day treatment course 3. Continue PRN aerosol 4. Encourage incentive spirometer use and mobilize patient as tolerated IMPRESSIONS: 1. Acute respiratory failure The patient was electively intubated in the emergency department for airway protection upon presentation. Subsequent chest imaging reveals the presence of a right sided airspace opacity, concerning for aspiration pneumonia. Sputum culture was positive for MSSA. Therefore, the patient's Zosyn can be de- escalated to Duricef p.o. with plans to complete a 7 day treatment course. Encourage incentive spirometer use and mobilize patient as tolerated. 2. Personal history of epilepsy with breakthrough seizure activity Continue Keppra per neurology recommendations. No further seizure activity has been reported. We will continue to maintain the patient on seizure precautions. Close outpatient follow-up with neurology would be recommended. 3. Acute kidney injury Resolved. Likely prerenal in etiology, as creatinine has normalized with volume expansion. Urine output is appropriate. No indication for renal replacement therapy. This note was generated with [employer] dictation software. It may contain incorrect words, spelling, and punctuation that were not noted in checking the note before signing. Code Visit Inpatient E&M: 80117 Subs Hosp L2
--- NOTE | 2017-06-23 10:11 | PCM.DC ---
- Discharge Diagnoses Current Active Problems: Current Active and Chronic Problems Seizure (Acute) Reason(s) for Visit for Discharge Instructions: Seizure You will use the following diet at home:: Regular Your food should be the consistency of: Regular Your liquids should be the consistency of: Regular/Thin Discharge Activity: Return to Normal Activity Additional Instructions: You are strongly advised to take all you medications and follow-up with your neurologist in 4 weeks. This is your 3rd admission in less than one year which involves ICU care. Please ensure that you are compliant with medications to prevent future re-admissions. Allergies/Adverse Reactions: Allergies naproxen Allergy (Verified 06/20/17 16:19) Hives Medications to take at Discharge Amlodipine [Norvasc] 10 mg PO DAILY 09/17/16 Amox/Clavulanate Tablet [Augmentin Tablet] 875 mg PO Q12H #14 tab 06/23/17 Levetiracetam [Keppra] 1,000 mg PO BID #60 tablet 06/23/17 levETIRAcetam tablet [Keppra tablet] 250 mg PO BID #60 tablet 06/23/17 The following prescriptions were given: Amox/Clavulanate Tablet [Augmentin Tablet] 875 mg PO Q12H #14 tab Levetiracetam [Keppra] 1,000 mg PO BID #60 tablet levETIRAcetam tablet [Keppra tablet] 250 mg PO BID #60 tablet Primary Care Physician: Ruba Carrillo DO [Primary Care Provider] - Please follow up with your Primary Care Physician in: within 2 weeks Please Follow Up With: Charlotte Erickson MD When: in 4 weeks Proposed Discharge Date: 06/23/17
--- NOTE | 2017-06-23 10:18 | PCM.DC.SUM ---
Discharge Date and Diagnosis Date of Admission: 06/20/17 Date of Discharge: 06/23/17 - Primary Discharge Diagnosis Active and Suspected Problems Breakthrough seizure (Acute) - Secondary Discharge Diagnosis Chronic Problems Seizure (Chronic) Tobacco use (Chronic) Seizures (Chronic) Depression (Chronic) Morbid obesity with BMI of 50.0-59.9, adult (Chronic) Hospital Course and Treatment Imaging Results: Clinical Impression(s) from Imaging Studies Chest X-Ray 06/20/17 16:25 IMPRESSION: The endotracheal tube terminates about 5.2 cm above the sidney. The gastric tube terminates in the expected location of the body of the stomach. There are no acute cardiopulmonary abnormalities. Electronically Signed: Patricia Brar MD at 16:54 EDT Tel Direct: [phone], Service support , Brain CT 06/20/17 16:33 IMPRESSION: No acute intracranial abnormalities or changes. Electronically Signed: Patricia Brar MD at 17:51 EDT Tel Direct: [phone], Service support , Chest X-Ray 06/21/17 09:40 IMPRESSION: Subsegmental atelectasis versus early pneumonitis within the mid to lower right lung. Support tubes and lines as above. No pleural effusion. No pneumothorax. No acute osseous abnormality. The cardiomediastinal silhouette appears unremarkable. No evidence of central vascular congestion. Electronically Signed: Jesse Chan MD at 14:41 EDT , Service support , Neurology ICU/clinical nurse educator Operations: None Procedures: None Summary of Care Provided: 31-year-old female with past medical history of seizure disorder, was supposed to be on Keppra and topiramate, off topiramate for unclear reasons, comes in with a breakthrough seizure, intubated for primary airway protection. The patient's third admission in less than 1 year for same breakthrough seizures secondary to noncompliance to medications. Each of these 3 times patient gets intubated, managed in ICU and finally extubated. 1. Acute respiratory failure, status post intubation for airway protection, status post extubation, weaned off oxygen, did not require oxygen on discharge 2. Breakthrough seizure in a patient with seizure disorder, secondary to noncompliance to medications and follow-up appointments with neurology, neurology consulted, increased Keppra to 1250 mg twice daily. Stopped topiramate. Patient strongly advised to follow up with neurology in [address] Erickson. This was conveyed both to the patient and the , medication compliance was stressed on over and over. 3. MSSA right Aspiration pneumonitis/pneumonia, present since admission, patient was found to have increased pooling of secretions in the ED especially prior to intubation, initially managed on IV Zosyn, sputum cultures grew MSSA, discharged on oral Augmentin for 7 more days. 4. Hyperglycemia, obesity, no evidence of diabetes seen Discharge Diet: No Restrictions Discharge Activity: Return to Normal Activity, May Not Drive Home Medications: Medications to take at Discharge Amlodipine [Norvasc] 10 mg PO DAILY 09/17/16 Amox/Clavulanate Tablet [Augmentin Tablet] 875 mg PO Q12H #14 tab 06/23/17 Levetiracetam [Keppra] 1,000 mg PO BID #60 tab 06/23/17 levETIRAcetam tablet [Keppra tablet] 250 mg PO BID #60 tab 06/23/17 Following Prescrptions Were Given to Patient: Amox/Clavulanate Tablet [Augmentin Tablet] 875 mg PO Q12H #14 tab Levetiracetam [Keppra] 1,000 mg PO BID #60 tab levETIRAcetam tablet [Keppra tablet] 250 mg PO BID #60 tab Primary Care Physician: Ruba Carrillo DO [Primary Care Provider] - Please follow up with your Primary Care Physician in: within 2 weeks Please Follow Up With: Charlotte Erickson MD When: in 4 weeks Disposition: Home Minutes spent on discharge:: 45 Patient Condition:: Stable Medical Necessity - Tobacco Use Smoking Status: Current some day smoker Tobacco Use: - - could not be assessed as in intubated Meaningful Use Info Meaningful Use Diagnoses (Choose all that apply): None applicable Code Visit Inpatient E&M: 79227 Disch Hosp
[2017-06-23 10:20] VITALS: BP 113/58; PULSE 82; RESP 16; TEMP 36.6; O2SAT 94
[2017-06-23] MEDS: Cefadroxil 500 MG CAPSULE 1000 MG PO (10:29)
--- NOTE | 2017-06-23 10:39 | CASEMGMT ---
Addendum entered by Jaycee Steve 06/23/17 13:18: Dr Erickson's office will not take patient. ZORAIDA called [facility] and they are accepting new patients. A referral needs to be faxed to [phone] and they will call the patient to set up appt. ZORAIDA called patient's PCP's office (Dr Carrillo) and spoke with Mary Ann, one of the RN's. SW explained situation and she said they would send a referral to [facility] in [place]. ZORAIDA gave her the fax number. Jaycee NELSON SENIOR ADULTS DIRECTOR Original Note: SW spoke with patient regarding her last several visits and not taking seizure medication. She said she takes all of her medications. SW told her that her Neurologist's office is not able to see her as she has missed too many appts. She said she doesn't know anything about that. ZORAIDA told her SW could try and get her into a Neurologist in [place] and she said that is fine. ZORAIDA also spoke with her about [facility] and she was agreeable. SW gave her a pamphlet and let her know someone would be calling her to follow up. She also told SW they told her to stop smoking marijuana. SW told her that is good advice as it is illegal in [place]. ZORAIDA put in referral for [facility] and left a message for Timo with [facility]. ZORAIDA spoke with physician and she is going to talk with Dr Erickson to see if they can give patient 1 more try. Plan: Home with referral to [facility]. Jaycee CUBA
--- NOTE | 2017-06-23 11:02 | PCM.PN.NEU ---
Patient Problems: Active and Suspected Problems Seizure (Acute) Subjective: No issues overnight. Extubated 06/22/17. No further documented seizures. - Physical Exam General: Alert, Oriented x3, Cooperative HEENT: Atraumatic, PERRLA, EOMI, Normocephalic Neck: Supple, No JVD, Negative Carotid Bruits Lungs: Clear to auscultation, Normal air movement Cardiovascular: Regular rate, No murmurs Abdomen: Bowel Sounds Present, Soft, Non Tender Extremities: No edema, Capillary Refill Less than 3 Seconds Skin: No rashes, No breakdown Musculoskeletal: No Tenderness to Palpation of Joints or Extremities Neurological: Cranial nerves II-XII grossly intact, Deep Tendon Reflexes 2+/4 and Symmetrical, Neuro grossly intact, Motor Exam 5/5 strength throughout, Muscle tone normal, Sensory exam intact to light touch and pain, Coordination normal Psych/Mental Status: Normal Affect, Appropriate Vital Signs Temp Pulse Resp BP Pulse Ox 98 F 82 16 113/58 L 94 06/23/17 10:20 06/23/17 10:20 06/23/17 10:20 06/23/17 10:20 06/23/17 10:20 Oxygen Flow Rate (L/min) 2 Oxygen Delivery Method Room Air Weight: 118 kg Body Mass Index (BMI) 45.1 Intake and Output for Last 24 Hours 06/21/17 06/22/17 06/23/17 23:59 23:59 23:59 Intake Total 3030.2 / 3030.2 1252 / 1252 661.7 / 661.7 Output Total 4120 / 4120 550 / 550 Balance -1089.8 / -1089.8 702 / 702 661.7 / 661.7 Microbiology Past 72 Hours 06/21/17 13:18 Gram Stain - Final Sputum, Induced/Lukens Respiratory Culture - Final Staphylococcus aureus Laboratory Tests Past 24 Hrs 06/21/17 06/23/17 06/23/17 05:05 04:30 04:30 WBC 7.6 RBC 4.18 L Hgb 11.3 L Hct 36.8 L MCV 88.0 MCH 27.0 MCHC 30.7 L RDW 13.3 RDW Differential 42.5 Plt Count 180 MPV 11.0 Immature Gran % (Auto) 0.100 Neut % (Auto) 66.6 Lymph % (Auto) 18.7 L Harrison % (Auto) 9.2 Eos % (Auto) 5.3 H Baso % (Auto) 0.1 Absolute Neuts (auto) 5.1 Absolute Lymphs (auto) 1.42 Total Counted Not Reportable Sodium 142 Potassium 3.9 Chloride 109 H Carbon Dioxide 28.0 Anion Gap 5 BUN 11 Creatinine 0.81 Estim Creat Clear Calc 86.10 Est GFR (MDRD) Af Amer 105 Est GFR (MDRD) Non-Af 87 BUN/Creatinine Ratio 13.6 Glucose 80 Hemoglobin A1c 4.7 Calcium 8.3 L Medical Necessity - Tobacco Use Smoking Status: Current some day smoker Tobacco Use: - - could not be assessed as in intubated Assessment/Plan Active and Suspected Problems Seizure (Acute) The patient is a 31 year old CF with PMH Seizures, morbid obesity admitted with breakthrough seizures. Patient was extubated on 06/22/17 per documentation, at present is alert and oriented, denies any ROD, focal motor weakness or sensory loss, or visual disturbances, no further witnessed seizures. She is not sure if she was taking Topamax or not. Impression Breakthrough seizures Plan -CT head reviewed-reported normal -Keppra 1250 mg BID -Patient needs to be compliant with her AEDs -No driving for 6 months. but per patient she does not drive at all. -Labs reviewed -Seizure precautions discussed in detail with patient. -May need video EEG if has recurrent seizures to rule out DILMA -GI/DVT prophylaxis -Further medical management per primary team -Follow up with Neurology as outpatient in 4-6 weeks -Please call with questions if any -Thank you for allowing us to participate in patient's care and management I spent 30 minutes taking history, doing physical examination, reviewing medical records, coordinating care and counseling the patient.
--- NOTE | 2017-06-26 09:41 | CCN.REFER ---
PATIENT DECLINING [facility] SERVICES. INFORMATION LEFT IF SHE CHANGES MIND. AGAIN, STRESSED IMPORTANCE OF GAINING HELP WITH MEDICATION MANAGEMENT.
== END 2017-06-23 12:16 | disposition home or self-care (01) | DRG 24 ==
LOC: ED 16:24 → ICU 18:41 → PCU 06-23 06:46
PROVIDERS: Internal Medicine Critical Care Medicine; Emergency Provider Emergency Medicine; Family Provider Family Medicine; PCP Family Medicine; Visit Provider Internal Medicine
DX: G40.409 Other generalized epilepsy and epileptic syndromes, not intractable, without status epilepticus (principal); J96.00 Acute respiratory failure, unspecified whether with hypoxia or hypercapnia; N17.9 Acute kidney failure, unspecified; J69.0 Pneumonitis due to inhalation of food and vomit; J15.211 Pneumonia due to Methicillin susceptible Staphylococcus aureus; F17.200 Nicotine dependence, unspecified, uncomplicated; I10 Essential (primary) hypertension; E66.01 Morbid (severe) obesity due to excess calories; Z68.42 Body mass index [BMI] 45.0-49.9, adult; Z79.899 Other long term (current) drug therapy; F12.90 Cannabis use, unspecified, uncomplicated; R73.9 Hyperglycemia, unspecified; Z91.14 Patient's other noncompliance with medication regimen
CPT/HCPCS: 31500; 31720; 36415; 36569; 36600; 51702; 70450; 71045; 80048; 80076; 80307; 81001; 82803; 82962; 83036; 84484; 84703; 85025; 85027; 85610; 87070; 87077; 87186; 87205; 87641; 93005; 94002; 94003; 94640; 94660; 95831; 97802; 99251; 99285; J7030; J7040; A4216; G0463

== ENCOUNTER 2017-07-16 13:45 | Inpatient (IN) | payer MEDICAID, SELFPAY ==
[2017-07-16] VITALS (22 sets, daily range): BP systolic 117–165; BP diastolic 84–111; PULSE 80–129; RESP 14–30; TEMP 36.1–38.2; O2SAT 93–100; BMI 49.0; BMI 43.8
--- NOTE | 2017-07-16 13:58 | EKG12_ITS ---
Test Reason : SEIZURE Blood Pressure : / mmHG Vent. Rate : 115 BPM Atrial Rate : 115 BPM P-R Int : 166 ms QRS Dur : 064 ms QT Int : 332 ms P-R-T Axes : 071 085 056 degrees QTc Int : 459 ms Sinus tachycardia Otherwise normal ECG Confirmed by SEEMA MONAHAN, BIRD ([id number]), purchasing expeditor ABDOUL BANSAL ([id number]) on 07/18/2017 3:04:07 PM Referred By: DC Confirmed By:BIRD STEPHENSON MD
--- NOTE | 2017-07-16 13:58 | RAD_ITS ---
STUDY: X-RAY CHEST REASON FOR EXAM: Female, 32 years old. Intubation TECHNIQUE: A single frontal view of the chest was obtained. COMPARISON: June 21, 2017 FINDINGS: The endotracheal tube terminates about 3.7 cm above the sidney. A gastric tube extends into the left abdomen. The lungs are underaerated. There are hazy opacities in both lung bases with obscuring of the diaphragms. There is minimal blunting of both costophrenic angles. The cardiac silhouette is normal in size. The mediastinum and hilar regions are unremarkable. The central vessels are prominent. Normal visualized aortic arch and descending thoracic aorta. The thoracic spine is unremarkable. The visualized ribs, clavicles, and shoulders are unremarkable. Cholecystectomy clips are present. RAD/Chest 1 View (Portable) IMPRESSION: The endotracheal tube terminates about 3.7 cm above the sidney. The gastric tube extends adequately into the upper abdomen. There is mild edema, and there are small to moderate pleural effusions bilaterally. There is likely compressive atelectasis in both lung bases. Electronically Signed: Patricia Brar MD at 16:18 EDT Tel Direct: [phone], Service support ,
[2017-07-16 14:10] LABS: International Normalized Ratio 1.2; Prothrombin Time (Protime)PT. 15.5 SECONDS (11.7-14.9)
[2017-07-16 14:11] LABS: Partial Thromboplast Time 32.4 Seconds (24.1-36.2)
[2017-07-16 14:14] LABS: Absolute Lymphocyte Count 7.65 X10^3/ul (0.83-4.51); Absolute Neutrophil Count 8.8 X10^3/uL (2.0-7.7); Basophil# 0.03 X10^3/uL; Basophil% 0.2 % (0-1); Differential Indicated SCAN CRITERIA MET; Eosinophil# 0.14 X10^3/uL; Eosinophils% 0.8 % (0-5); Hematocrit 43.4 % (37-47); Hemoglobin 12.8 g/dl (12.0-15.0); Lymphocyte # 7.65 X10^3/ul (4.0); Lymphocyte % 41.9 % (19-41); Mean Corp Hgb Conc 29.5 g/gl (32-36); Mean Corpuscular Hgb 26.9 pg (27.0-32.0); Mean Corpuscular Volume 91.2 fL (81-99); Mean Platelet Vol. 12.8 fl (6.2-12.0); Monocyte# 1.58 X10^3/uL; Monocyte% 8.7 % (0-10); Neutrophil # 8.77 X10^3/uL (2.7-7.7); Neutrophil % 47.9 % (47-70); POSITIVE COUNT NO; POSITIVE DIFFERENTIAL YES; POSITIVE MORPHOLOGY YES; Platelet Count 296 K/mm3 (150-450); RBC Distribution Width CV 12.9 % (11.6-14.6); Red Blood Count 4.76 M/mm3 (4.2-5.4); White Blood Count 18.3 K/mm3 (4.4-11.0)
[2017-07-16] MEDS: 0.9% Normal Saline 1,000 ML 250 ML IV (14:19)
[2017-07-16 14:20] LABS: ALB/GLOB Ratio 0.8 RATIO (0.9-2.4); AST(SGOT) 21 U/L (15-37); Alanine Aminotransfer ALT/SGPT 20 U/L (13-56); Albumin, Serum 3.5 g/dL (3.2-5.0); Alkaline Phosphatase 97 U/L (45-117); Anion Gap 20 (5-15); BUN 9 mg/dL (7-18); BUN/Creat Ratio 6.2 RATIO (10-20); Calcium,Total 8.7 mg/dL (8.5-10.1); Chloride 101 mmol/L (98-107); Creatinine, Serum 1.45 mg/dL (0.55-1.02); EST Glomerular Filtration Rate 44 mL/min (>60); Est Glom Filt Rate - Afr Amer 54 mL/min (>60); Estimated Creatinine Clearance 43.65 ml/min; Globulin 4.2 g/dL (2.2-4.2); Glucose 281 mg/dL (74-106); Potassium 4.2 mmol/L (3.5-5.1); Protein, Total 7.7 g/dL (6.4-8.2); Sodium Level 141 mmol/L (136-145)
[2017-07-16] MEDS: Propofol 200 MG/20 ML Vial 40 MG IV BOLUS (14:29)
[2017-07-16] MEDS: Propofol 10MG/Ml 1,000 MG/100 ML Bottle 3.648 MG CONT INF (14:29)
[2017-07-16] MEDS: levETIRAcetam IV 1,000 MG/100 ML BAG 400 MG IV (14:33)
[2017-07-16 14:39] LABS: Bacteria 0 SEEN /hpf (None Seen); Mucous, Urine 0 SEEN /hpf (<or=2+); White Blood Cells 0 SEEN /hpf (0-5)
[2017-07-16 14:53] LABS: Color, Urine Yellow (Yellow); Glucose, Dipstick 100 mg/dl (Normal); Ketone-Dipstick Negative (Negative); Leukocyte Esterase-Dipstick Negative /ul (Negative); Nitrite-Dipstick Negative (Negative); Occult Blood-Urine 150 /ul (Negative); Protein-Dipstick 500 mg/dl (Negative); Urine Bilirubin Dipstick Negative (Negative); Urine Clarity Sl. Cloudy (Clear); Urine Urobilinogen Normal (Normal)
[2017-07-16 14:59] LABS: Red Blood Cells-Urine 0-5 SEEN /hpf (0-5); Squamous Epithelial Cells - UA 0-5 SEEN /hpf (5-10)
[2017-07-16] MEDS: LORazepam 2 MG/ML Syringe IV ×3 (15:14)
[2017-07-16] MEDS: Succinylcholine Chloride 200 MG/10 ML Vial 150 MG IV (15:14)
--- NOTE | 2017-07-16 15:15 | NURSING ---
UPON ARRIVAL PATIENT ACTIVELY SEIZING, GIVEN ATIVAN 2MG'S IV X'S 3 (1343, 1347, 1350). ALSO, GIVEN SUCCS 150MG IV FOR INTUBATION AT 1353.
--- NOTE | 2017-07-16 15:27 | ED.VISSUMM ---
- ER Visit Summary Date of Service: 07/16/17 Chief Complaint: Seizure History of Present Illness: The patient is a 32 F with a history of seizures and status epilepticus. She ran out of her [employer]ra recently and has not been taking anything for seizures. She presents today by EMS for seizures. EMS gave 5 mg of Versed IM with no change. Patient is actively seizing on arrival and unable to provide history. Family is not currently at bedside. Physical Examination: Afebrile. Tachycardic. 93% on bag valve mask. Patient does have spontaneous respirations with coarse sounds throughout. Diffuse repetitive shaking movements through head, neck, trunk, and upper extremities. Test Results: EKG was limited by artifact but showed a sinus rhythm at a rate of 115. White count 18.3. Anion gap 20, creatinine 1.45, coags, liver function unremarkable troponin normal. The remainder of her labs and chest x-ray are pending. Emergency Department Course and Treatment: Patient was seen immediately and is having seizures. No response to Versed given by EMS. IV access was obtained. The patient had 3 rounds of Ativan, 2 mg each. Seizure activity seemed to slow. Patient had a lot of secretions and her mental status was not improving. She received succinylcholine and was intubated using the glidescope. Endotracheal tube was visualized passing through the cords. Good breath sounds bilaterally. Quiet stomach. Good color change. She was placed on the ventilator. Patient was treated with Keppra. While awaiting results, she was making some movements to try to remove the endotracheal tube and she was biting down on the tube. It seems that her seizure activity has stopped. She was treated with propofol for sedation. I spoke with the gasket notcher and the hospitalist about admission. Lactate, HCG, CXR pending at the time of this dictation. Treated with zosyn for possible aspiration. Dr. Olivier will admit to ICU. Treatment Plan: As above Disposition: Admission to ICU Impression: 1. Status epilepticus 2. Acute respiratory failure This note was generated with [employer] dictation software. It may contain incorrect words, spelling, and punctuation that were not noted in review of the chart prior to signing ED Disposition - Plan for ED Patient: Chief Complaint: Seizure Referrals: Ruba Carrillo DO [Primary Care Provider] -
--- NOTE | 2017-07-16 15:37 | ED.DCSUM_ITS ---
- ER Visit Summary Date of Service: 07/16/17 Chief Complaint: Seizure History of Present Illness: The patient is a 32 F with a history of seizures and status epilepticus. She ran out of her Keclipkitra recently and has not been taking anything for seizures. She presents today by EMS for seizures. EMS gave 5 mg of Versed IM with no change. Patient is actively seizing on arrival and unable to provide history. Family is not currently at bedside. Physical Examination: Afebrile. Tachycardic. 93% on bag valve mask. Patient does have spontaneous respirations with coarse sounds throughout. Diffuse repetitive shaking movements through head, neck, trunk, and upper extremities. Test Results: EKG was limited by artifact but showed a sinus rhythm at a rate of 115. White count 18.3. Anion gap 20, creatinine 1.45, coags, liver function unremarkable troponin normal. The remainder of her labs and chest x-ray are pending. Emergency Department Course and Treatment: Patient was seen immediately and is having seizures. No response to Versed given by EMS. IV access was obtained. The patient had 3 rounds of Ativan, 2 mg each. Seizure activity seemed to slow. Patient had a lot of secretions and her mental status was not improving. She received succinylcholine and was intubated using the glidescope. Endotracheal tube was visualized passing through the cords. Good breath sounds bilaterally. Quiet stomach. Good color change. She was placed on the ventilator. Patient was treated with Keppra. While awaiting results, she was making some movements to try to remove the endotracheal tube and she was biting down on the tube. It seems that her seizure activity has stopped. She was treated with propofol for sedation. I spoke with the loan operations manager and the hospitalist about admission. Lactate, HCG, CXR pending at the time of this dictation. Treated with zosyn for possible aspiration. Dr. Olivier will admit to ICU. Treatment Plan: As above Disposition: Admission to ICU Impression: 1. Status epilepticus 2. Acute respiratory failure This note was generated with [employer] dictation software. It may contain incorrect words, spelling, and punctuation that were not noted in review of the chart prior to signing ED Disposition - Plan for ED Patient: Chief Complaint: Seizure Referrals: Ruba Carrillo DO [Primary Care Provider] -
[2017-07-16 15:40] LABS: Blood Gas Specimen Type VEN; FI02 100; O2 Delivery Device Vent; PEEP 5; RR 14; SITE OTHER; Time Given 1520; VBG BASE EXCESS -3 mmol/L (-1.0-3.5); VBG Bicarbonate 21 mmol/L (22-26); VBG Oxygen Content 22 mmol/L (23-33); VBG PO2 105 mmHg (25-40); VBG SO2 98 % (50-70); VBG pCO2 30.8 mmHg (41-51); VBG pH 7.44 (7.32-7.42); Vt 450
[2017-07-16 16:14] LABS: Lactic Acid 2.8 mmol/L (0.4-2.0)
[2017-07-16] MEDS: Piperacil/Tazobactam 3.375 GM/50 ML ML IV ×2 (16:39→21:19)
[2017-07-16 16:48] LABS: Pregnancy, Serum, hCG Quali. NEGATIVE Negative (0-9 Nonpreg)
--- NOTE | 2017-07-16 16:50 | NURSING ---
DR VALERIO IN ER
--- NOTE | 2017-07-16 17:22 | PCM.HP.STD ---
Problem List (1) Cannabis abuse Status: Chronic (2) Non compliance w medication regimen Status: Chronic (3) LULY (acute kidney injury) Status: Acute (4) HTN (hypertension) Status: Chronic Qualifiers: (5) Status epilepticus Status: Acute (6) Depression Status: Chronic (7) Morbid obesity with BMI of 50.0-59.9, adult Status: Chronic (8) Tobacco use Status: Chronic (9) Seizure disorder Status: Chronic History of Present Illness Date of Admission: 07/16/17 Chief Complaint: brought in by EMS actively seizing....no family with her, non-compliant with Keppra again The patient is a 32 year old F with a past medical history of seizure disorder, noncompliance with medications, depression, hypertension and superobesity who was brought to the ED at [facility] on 07/16/2017 by EMS actively seizing. Apparently the family told the squad she ran out of her medications however, she was given RX's for 1 month of meds at DC from the hospital on 06/23/17. She was given 5 mg of Versed in the squad with no change. She was given a total of 6 mg of Ativan in the emergency room prior to cessation of seizure activity. She was intubated to protect her airway. She was just recently admitted to [facility] from 06/20/17 to 06/23/2017 for seizures due to non-compliance with medications. At that time she was discharged on Augmentin for tx of Aspiration pneumonia due to MSSA. No family accompanied her. Current vital signs are temperature 98.9, pulse rate 80, blood pressure 130/100, respiratory rate 14 and she is 97% saturated on 30% FiO2/mechanical ventilation. Chest x-ray shows poor inspiratory effort with haziness in both lung bases. Blood cell count is elevated at 18.3 with an unremarkable differential. Hemoglobin is 12.8 and platelets are within normal limits. PT is 15.5 and the PTT is normal. BMP shows a decreased serum bicarb of 20 with an increased anion gap of 20 secondary to status epilepticus. BUN is 9 with a creatinine of 1.45 and creatinine at discharge from the hospital on 06/23/2017 was 0.81. Lactic acid is elevated at 2.8 and this is most likely secondary to prolonged seizure activity. Troponin is less than 0.02 and the LFTs are unremarkable. Serum test was negative. Drug screen on her most recent admission was positive for cannabinoids. UA shows 0 WBCs per high-power field. She is being admitted to the intensive care unit with status epilepticus secondary to noncompliance with medication and suspected aspiration pneumonia. Past Medical History Past Medical History (Chronic Problems): Chronic Problems Cannabis abuse (Chronic) Non compliance w medication regimen (Chronic) Seizure disorder (Chronic) HTN (hypertension) (Chronic) Tobacco use (Chronic) Depression (Chronic) Morbid obesity with BMI of 50.0-59.9, adult (Chronic) Allergies naproxen Allergy (Verified 06/20/17 16:19) Hives Home Medications: Ambulatory Orders Medication Instructions Recorded Amlodipine [Norvasc] 10 mg PO DAILY 09/17/16 Levetiracetam [Keppra] 1,000 mg PO BID #60 tab 06/23/17 levETIRAcetam tablet [Keppra 250 mg PO BID #60 tab 06/23/17 tablet] Surgical History: noncontributory Psychiatric History: Depression Smoking Status: Current every day smoker Tobacco Use: Cigarettes Drugs: Marijuana - *Family History Maternal History Items: No pertinent history, - - Unable to get any family history from the patient as she is intubated and sedated. Review of Systems Unable to obtain accurate/complete ROS d/t: pt intubated and sedated and no family is present. VTE Information - Inpt Only VTE Present on Admission: No VTE Mechan Device Prophylaxis: SCD's, Knee High MONY Hose VTE Pharm Prophylaxis ordered?: Yes Patient Problems: Active and Suspected Problems LULY (acute kidney injury) (Acute) - Physical Exam General: - - intubated, sedated, no responsive, no seizure activity observed HEENT: Atraumatic, PERRLA, Normocephalic Oral: No Gingival or Mucosal Lesions/ Ulcerations, Dry Mucosa Neck: Supple, No Nodes, No Nuchal Rigidity, Trachea Midline Lungs: No rhonchi, No wheeze, No rales Cardiovascular: Regular rate, Regular Rhythm, Normal S1, Normal S2, No murmurs, No rub noted, No Gallop Abdomen: Bowel Sounds Present, Soft, Non-Distended, Obese Extremities: No clubbing, No cyanosis, No edema, Capillary Refill Less than 3 Seconds, Peripheral Pulses Normal Skin: No rashes, No breakdown, - - she is dirty with poor hygiene Musculoskeletal: No Muscle Wasting Neurological: - - no facial asymmetry Vital Signs Temp Pulse Resp BP Pulse Ox 98.9 F 80 14 130/100 H 97 07/16/17 16:22 07/16/17 17:09 07/16/17 17:09 07/16/17 17:09 07/16/17 17:09 Oxygen Flow Rate (L/min) 15 Oxygen Delivery Method Mechanical Ventilator Weight: 268 lb 1.314 oz Body Mass Index (BMI) 49.0 Finger Stick Blood Glucose 179 Laboratory Tests Past 24 Hrs 07/16/17 07/16/17 07/16/17 13:50 13:50 13:50 WBC 18.3 H RBC 4.76 Hgb 12.8 Hct 43.4 MCV 91.2 MCH 26.9 L MCHC 29.5 L RDW 12.9 RDW Differential 43.0 Plt Count 296 MPV 12.8 H Immature Gran % (Auto) 0.500 Neut % (Auto) 47.9 Lymph % (Auto) 41.9 H Pacific % (Auto) 8.7 Eos % (Auto) 0.8 Baso % (Auto) 0.2 Absolute Neuts (auto) 8.8 H Absolute Lymphs (auto) 7.65 H Total Counted Not Reportable Diff Path Review June foll PT 15.5 H INR 1.2 APTT 32.4 Specimen Type Sample Site O2 % VBG pH VBG pO2 VBG O2 Sat (Calc) VBG O2 Content VBG Base Excess POC Mix VBG pCO2 Pt Tmp Respiration Rate O2 Delivery Device Minute Volume Tidal Volume POC PEEP Blood Gas Notified Whom Blood Gas Notified Time Sodium 141 Potassium 4.2 Chloride 101 Carbon Dioxide 20.0 L Anion Gap 20 H BUN 9 Creatinine 1.45 H Estim Creat Clear Calc 43.65 Est GFR (MDRD) Af Amer 54 L Est GFR (MDRD) Non-Af 44 L BUN/Creatinine Ratio 6.2 L Glucose 281 H Lactic Acid Calcium 8.7 Total Bilirubin 0.20 AST 21 ALT 20 Alkaline Phosphatase 97 Troponin I < 0.020 Total Protein 7.7 Albumin 3.5 Globulin 4.2 Albumin/Globulin Ratio 0.8 L Serum , Qual Urine Color Urine Clarity Urine pH Ur Specific Antoine Urine Protein Urine Glucose (UA) Urine Ketones Urine Occult Blood Urine Nitrite Urine Bilirubin Urine Urobilinogen Ur Leukocyte Esterase Urine RBC Urine WBC Ur Squamous Epith Cells Urine Bacteria Urine Mucus 07/16/17 07/16/17 07/16/17 14:20 15:30 15:30 WBC RBC Hgb Hct MCV MCH MCHC RDW RDW Differential Plt Count MPV Immature Gran % (Auto) Neut % (Auto) Lymph % (Auto) Pacific % (Auto) Eos % (Auto) Baso % (Auto) Absolute Neuts (auto) Absolute Lymphs (auto) Total Counted Diff Path Review PT INR APTT Specimen Type Sample Site O2 % VBG pH VBG pO2 VBG O2 Sat (Calc) VBG O2 Content VBG Base Excess POC Mix VBG pCO2 Pt Tmp Respiration Rate O2 Delivery Device Minute Volume Tidal Volume POC PEEP Blood Gas Notified Whom Blood Gas Notified Time Sodium Potassium Chloride Carbon Dioxide Anion Gap BUN Creatinine Estim Creat Clear Calc Est GFR (MDRD) Af Amer Est GFR (MDRD) Non-Af BUN/Creatinine Ratio Glucose Lactic Acid 2.8 H Calcium Total Bilirubin AST ALT Alkaline Phosphatase Troponin I Total Protein Albumin Globulin Albumin/Globulin Ratio Serum , Qual NEGATIVE Urine Color Yellow Urine Clarity Sl. Cloudy Urine pH 7.0 Ur Specific Antoine 1.010 Urine Protein 500 H Urine Glucose (UA) 100 H Urine Ketones Negative Urine Occult Blood 150 H Urine Nitrite Negative Urine Bilirubin Negative Urine Urobilinogen Normal Ur Leukocyte Esterase Negative Urine RBC 0-5 SEEN Urine WBC 0 SEEN Ur Squamous Epith Cells 0-5 SEEN Urine Bacteria 0 SEEN Urine Mucus 0 SEEN 07/16/17 15:38 WBC RBC Hgb Hct MCV MCH MCHC RDW RDW Differential Plt Count MPV Immature Gran % (Auto) Neut % (Auto) Lymph % (Auto) Pacific % (Auto) Eos % (Auto) Baso % (Auto) Absolute Neuts (auto) Absolute Lymphs (auto) Total Counted Diff Path Review PT INR APTT Specimen Type YOMI Sample Site OTHER O2 % 100 VBG pH 7.44 H VBG pO2 105 H VBG O2 Sat (Calc) 98 H VBG O2 Content 22 L VBG Base Excess -3 L POC Mix VBG pCO2 Pt Tmp 30.8 L Respiration Rate 14 O2 Delivery Device Vent Minute Volume 11.00 Tidal Volume 450 POC PEEP 5 Blood Gas Notified Whom ED Blood Gas Notified Time 1520 Sodium Potassium Chloride Carbon Dioxide Anion Gap BUN Creatinine Estim Creat Clear Calc Est GFR (MDRD) Af Amer Est GFR (MDRD) Non-Af BUN/Creatinine Ratio Glucose Lactic Acid Calcium Total Bilirubin AST ALT Alkaline Phosphatase Troponin I Total Protein Albumin Globulin Albumin/Globulin Ratio Serum , Qual Urine Color Urine Clarity Urine pH Ur Specific Antoine Urine Protein Urine Glucose (UA) Urine Ketones Urine Occult Blood Urine Nitrite Urine Bilirubin Urine Urobilinogen Ur Leukocyte Esterase Urine RBC Urine WBC Ur Squamous Epith Cells Urine Bacteria Urine Mucus Assessment/Plan Active and Suspected Problems LULY (acute kidney injury) (Acute) Impressions 1. Status epilepticus-secondary to noncompliance with antiepileptic medications despite being provided with medication prescriptions at her last discharge on 06/23/2017. This is her fourth admission to the hospital in less than 1 year for seizures secondary to noncompliance. 2. Suspected aspiration pneumonia 3. Super obesity 4. Hypertension 5. Seizure disorder 6. Depression 7. Illicit drug use-cannabis 8. metabolic acidosis due to status epilepticus 9. LULY 10. recent aspiration PNA due to MSSA Admit to ICU Maintain on the ventilator Proprofol and Fentanyl for sedation start Vanco and Zosyn for aspiration in a pt recently admitted to the ICU and intubated Keppra 1,[address] Brain negative and there is no sign of trauma. Per the EMT's non-compliant with medication......will not CT head at this time Recheck CXR in the AM Dr. Galvan has been consulted. Will consult DC planning and SW - fourth admission in less than 1 year due to non-compliance. Recheck lab in the AM Blood and sputum cultures. Lovenox, SCD's and TEDS for DVT prophylaxis Pepcid for ulcer prophylaxis. Check a CK now Ativan 2 mg IV PRN breakthrough seizure Hydrate Code Visit Inpatient E&M: 25499 Init Hosp L3
--- NOTE | 2017-07-16 17:24 | NURSING ---
ICU 3 SEIZURE SECONDARY TO NON COMPLIANCE WITH MEDICATIONS SEMENTHI
--- NOTE | 2017-07-16 17:34 | HP.PCM_ITS ---
Problem List (1) Cannabis abuse Status: Chronic (2) Non compliance w medication regimen Status: Chronic (3) LULY (acute kidney injury) Status: Acute (4) HTN (hypertension) Status: Chronic Qualifiers: (5) Status epilepticus Status: Acute (6) Depression Status: Chronic (7) Morbid obesity with BMI of 50.0-59.9, adult Status: Chronic (8) Tobacco use Status: Chronic (9) Seizure disorder Status: Chronic History of Present Illness Date of Admission: 07/16/17 Chief Complaint: brought in by EMS actively seizing....no family with her, non- compliant with Keppra again The patient is a 32 year old F with a past medical history of seizure disorder, noncompliance with medications, depression, hypertension and superobesity who was brought to the ED at [facility] on 07/16/2017 by EMS actively seizing. Apparently the family told the squad she ran out of her medications however, she was given RX's for 1 month of meds at DC from the hospital on 06/23/17. She was given 5 mg of Versed in the squad with no change. She was given a total of 6 mg of Ativan in the emergency room prior to cessation of seizure activity. She was intubated to protect her airway. She was just recently admitted to [facility] from 06/20/17 to 2017 for seizures due to non-compliance with medications. At that time she was discharged on Augmentin for tx of Aspiration pneumonia due to MSSA. No family accompanied her. Current vital signs are temperature 98.9, pulse rate 80, blood pressure 130/100, respiratory rate 14 and she is 97% saturated on 30% FiO2 /mechanical ventilation. Chest x-ray shows poor inspiratory effort with haziness in both lung bases. Blood cell count is elevated at 18.3 with an unremarkable differential. Hemoglobin is 12.8 and platelets are within normal limits. PT is 15.5 and the PTT is normal. BMP shows a decreased serum bicarb of 20 with an increased anion gap of 20 secondary to status epilepticus. BUN is 9 with a creatinine of 1.45 and creatinine at discharge from the hospital on 06/23/2017 was 0.81. Lactic acid is elevated at 2.8 and this is most likely secondary to prolonged seizure activity. Troponin is less than 0.02 and the LFTs are unremarkable. Serum test was negative. Drug screen on her most recent admission was positive for cannabinoids. UA shows 0 WBCs per high- power field. She is being admitted to the intensive care unit with status epilepticus secondary to noncompliance with medication and suspected aspiration pneumonia. Past Medical History Past Medical History (Chronic Problems): Chronic Problems Cannabis abuse (Chronic) Non compliance w medication regimen (Chronic) Seizure disorder (Chronic) HTN (hypertension) (Chronic) Tobacco use (Chronic) Depression (Chronic) Morbid obesity with BMI of 50.0-59.9, adult (Chronic) Allergies naproxen Allergy (Verified 06/20/17 16:19) Hives Home Medications: Ambulatory Orders Medication Instructions Recorded Amlodipine [Norvasc] 10 mg PO DAILY 09/17/16 Levetiracetam [Keppra] 1,000 mg PO BID #60 tab 06/23/17 levETIRAcetam tablet [Keppra 250 mg PO BID #60 tab 06/23/17 tablet] Surgical History: noncontributory Psychiatric History: Depression Smoking Status: Current every day smoker Tobacco Use: Cigarettes Drugs: Marijuana - *Family History Maternal History Items: No pertinent history, - - Unable to get any family history from the patient as she is intubated and sedated. Review of Systems Unable to obtain accurate/complete ROS d/t: pt intubated and sedated and no family is present. VTE Information - Inpt Only VTE Present on Admission: No VTE Mechan Device Prophylaxis: SCD's, Knee High MONY Hose VTE Pharm Prophylaxis ordered?: Yes Patient Problems: Active and Suspected Problems LULY (acute kidney injury) (Acute) - Physical Exam General: - - intubated, sedated, no responsive, no seizure activity observed HEENT: Atraumatic, PERRLA, Normocephalic Oral: No Gingival or Mucosal Lesions/ Ulcerations, Dry Mucosa Neck: Supple, No Nodes, No Nuchal Rigidity, Trachea Midline Lungs: No rhonchi, No wheeze, No rales Cardiovascular: Regular rate, Regular Rhythm, Normal S1, Normal S2, No murmurs, No rub noted, No Gallop Abdomen: Bowel Sounds Present, Soft, Non-Distended, Obese Extremities: No clubbing, No cyanosis, No edema, Capillary Refill Less than 3 Seconds, Peripheral Pulses Normal Skin: No rashes, No breakdown, - - she is dirty with poor hygiene Musculoskeletal: No Muscle Wasting Neurological: - - no facial asymmetry Vital Signs Temp Pulse Resp BP Pulse Ox 98.9 F 80 14 130/100 H 97 07/16/17 16:22 07/16/17 17:09 07/16/17 17:09 07/16/17 17:09 07/16/17 17:09 Oxygen Flow Rate (L/min) 15 Oxygen Delivery Method Mechanical Ventilator Weight: 268 lb 1.314 oz Body Mass Index (BMI) 49.0 Finger Stick Blood Glucose 179 Laboratory Tests Past 24 Hrs 07/16/17 07/16/17 07/16/17 13:50 13:50 13:50 WBC 18.3 H RBC 4.76 Hgb 12.8 Hct 43.4 MCV 91.2 MCH 26.9 L MCHC 29.5 L RDW 12.9 RDW Differential 43.0 Plt Count 296 MPV 12.8 H Immature Gran % (Auto) 0.500 Neut % (Auto) 47.9 Lymph % (Auto) 41.9 H [place] % (Auto) 8.7 Eos % (Auto) 0.8 Baso % (Auto) 0.2 Absolute Neuts (auto) 8.8 H Absolute Lymphs (auto) 7.65 H Total Counted Not Reportable Diff Path Review June foll PT 15.5 H INR 1.2 APTT 32.4 Specimen Type Sample Site O2 % VBG pH VBG pO2 VBG O2 Sat (Calc) VBG O2 Content VBG Base Excess POC Mix VBG pCO2 Pt Tmp Respiration Rate O2 Delivery Device Minute Volume Tidal Volume POC PEEP Blood Gas Notified Whom Blood Gas Notified Time Sodium 141 Potassium 4.2 Chloride 101 Carbon Dioxide 20.0 L Anion Gap 20 H BUN 9 Creatinine 1.45 H Estim Creat Clear Calc 43.65 Est GFR (MDRD) Af Amer 54 L Est GFR (MDRD) Non-Af 44 L BUN/Creatinine Ratio 6.2 L Glucose 281 H Lactic Acid Calcium 8.7 Total Bilirubin 0.20 AST 21 ALT 20 Alkaline Phosphatase 97 Troponin I < 0.020 Total Protein 7.7 Albumin 3.5 Globulin 4.2 Albumin/Globulin Ratio 0.8 L Serum , Qual Urine Color Urine Clarity Urine pH Ur Specific [place] Urine Protein Urine Glucose (UA) Urine Ketones Urine Occult Blood Urine Nitrite Urine Bilirubin Urine Urobilinogen Ur Leukocyte Esterase Urine RBC Urine WBC Ur Squamous Epith Cells Urine Bacteria Urine Mucus 07/16/17 07/16/17 07/16/17 14:20 15:30 15:30 WBC RBC Hgb Hct MCV MCH MCHC RDW RDW Differential Plt Count MPV Immature Gran % (Auto) Neut % (Auto) Lymph % (Auto) [place] % (Auto) Eos % (Auto) Baso % (Auto) Absolute Neuts (auto) Absolute Lymphs (auto) Total Counted Diff Path Review PT INR APTT Specimen Type Sample Site O2 % VBG pH VBG pO2 VBG O2 Sat (Calc) VBG O2 Content VBG Base Excess POC Mix VBG pCO2 Pt Tmp Respiration Rate O2 Delivery Device Minute Volume Tidal Volume POC PEEP Blood Gas Notified Whom Blood Gas Notified Time Sodium Potassium Chloride Carbon Dioxide Anion Gap BUN Creatinine Estim Creat Clear Calc Est GFR (MDRD) Af Amer Est GFR (MDRD) Non-Af BUN/Creatinine Ratio Glucose Lactic Acid 2.8 H Calcium Total Bilirubin AST ALT Alkaline Phosphatase Troponin I Total Protein Albumin Globulin Albumin/Globulin Ratio Serum , Qual NEGATIVE Urine Color Yellow Urine Clarity Sl. Cloudy Urine pH 7.0 Ur Specific [place] 1.010 Urine Protein 500 H Urine Glucose (UA) 100 H Urine Ketones Negative Urine Occult Blood 150 H Urine Nitrite Negative Urine Bilirubin Negative Urine Urobilinogen Normal Ur Leukocyte Esterase Negative Urine RBC 0-5 SEEN Urine WBC 0 SEEN Ur Squamous Epith Cells 0-5 SEEN Urine Bacteria 0 SEEN Urine Mucus 0 SEEN 07/16/17 15:38 WBC RBC Hgb Hct MCV MCH MCHC RDW RDW Differential Plt Count MPV Immature Gran % (Auto) Neut % (Auto) Lymph % (Auto) [place] % (Auto) Eos % (Auto) Baso % (Auto) Absolute Neuts (auto) Absolute Lymphs (auto) Total Counted Diff Path Review PT INR APTT Specimen Type YOMI Sample Site OTHER O2 % 100 VBG pH 7.44 H VBG pO2 105 H VBG O2 Sat (Calc) 98 H VBG O2 Content 22 L VBG Base Excess -3 L POC Mix VBG pCO2 Pt Tmp 30.8 L Respiration Rate 14 O2 Delivery Device Vent Minute Volume 11.00 Tidal Volume 450 POC PEEP 5 Blood Gas Notified Whom ED Blood Gas Notified Time 1520 Sodium Potassium Chloride Carbon Dioxide Anion Gap BUN Creatinine Estim Creat Clear Calc Est GFR (MDRD) Af Amer Est GFR (MDRD) Non-Af BUN/Creatinine Ratio Glucose Lactic Acid Calcium Total Bilirubin AST ALT Alkaline Phosphatase Troponin I Total Protein Albumin Globulin Albumin/Globulin Ratio Serum , Qual Urine Color Urine Clarity Urine pH Ur Specific [place] Urine Protein Urine Glucose (UA) Urine Ketones Urine Occult Blood Urine Nitrite Urine Bilirubin Urine Urobilinogen Ur Leukocyte Esterase Urine RBC Urine WBC Ur Squamous Epith Cells Urine Bacteria Urine Mucus Assessment/Plan Active and Suspected Problems LULY (acute kidney injury) (Acute) Impressions 1. Status epilepticus-secondary to noncompliance with antiepileptic medications despite being provided with medication prescriptions at her last discharge on 06/23/2017. This is her fourth admission to the hospital in less than 1 year for seizures secondary to noncompliance. 2. Suspected aspiration pneumonia 3. Super obesity 4. Hypertension 5. Seizure disorder 6. Depression 7. Illicit drug use-cannabis 8. metabolic acidosis due to status epilepticus 9. LULY 10. recent aspiration PNA due to MSSA Admit to ICU Maintain on the ventilator Proprofol and Fentanyl for sedation start Vanco and Zosyn for aspiration in a pt recently admitted to the ICU and intubated Keppra 1,[address] Brain negative and there is no sign of trauma. Per the EMT's non- compliant with medication......will not CT head at this time Recheck CXR in the AM Dr. Galvan has been consulted. Will consult DC planning and SW - fourth admission in less than 1 year due to non-compliance. Recheck lab in the AM Blood and sputum cultures. Lovenox, SCD's and TEDS for DVT prophylaxis Pepcid for ulcer prophylaxis. Check a CK now Ativan 2 mg IV PRN breakthrough seizure Hydrate Code Visit Inpatient E&M: 19791 Init Hosp L3
--- NOTE | 2017-07-16 18:08 | PCM.RX.CS ---
Consult Pharmacy has been consulted to manage selected antiobiotic: Vancomycin Type of Consult: New start Suspected Infection: Pneumonia Prior Doses of Antibiotics Received/Current Regimen: NO VANCOMYCIN GIVEN PREVIOUSLY Labs: Sodium 141 mmol/L (136-145) 07/16/17 13:50 Potassium 4.2 mmol/L (3.5-5.1) 07/16/17 13:50 Chloride 101 mmol/L (98-107) 07/16/17 13:50 Carbon Dioxide 20.0 mmol/L (21.0-32.0) L 07/16/17 13:50 Anion Gap 20 (5-15) H 07/16/17 13:50 BUN 9 mg/dL (7-18) 07/16/17 13:50 Creatinine 1.45 mg/dL (0.55-1.02) H 07/16/17 13:50 Est GFR (MDRD) Af Amer 54 mL/min (>60) L 07/16/17 13:50 Est GFR (MDRD) Non-Af 44 mL/min (>60) L 07/16/17 13:50 BUN/Creatinine Ratio 6.2 RATIO (10-20) L 07/16/17 13:50 Glucose 281 mg/dL (74-106) H 07/16/17 13:50 Weight used for dosin.6 kg Estimated Creatinine Clearance: 44ML/MIN Goal Trough: 15-20 mcg/mL Pharmacy Plan for Drug Dosing: Pharmacy to manage vancomycin per consult for the treatment of possible HAP/ aspiration pneumonia. Per H/P, the patient was recently admitted to the hospital for treatment of aspiration. At that time, her cultures resulted in MSSA, and was discharged on Augmentin per note. The patient was admitted for status epilepticus and antibiotics have been started d/t possible aspiration pneumonia. Will plan on start vancomycin and draw a trough prior to the 4th dose of vancomycin. PLAN/RECOMMENDATIONS 1. Vancomycin 1000mg IV Q12hrs 2. Trough scheduled 07/18 @0630 (Prior to 4th dose) 3. Pharmacy will continue to monitor daily and make changes as appropriate
[2017-07-16] MEDS: Ipratropium/Albuterol Sulfate 3 ML AMPUL.NEB INHALATION (18:46)
[2017-07-16 19:18] LABS: M R Staph aureus DNA By PCR Negative (Negative); Probe Check PASS; Specimen Processing Control PASS
[2017-07-16 19:22] LABS: CPK Total, Creatine Kinase 101 U/L (26-192)
[2017-07-16 19:38] LABS: Reflex Lactate? Y
[2017-07-16] MEDS: 0.9% Normal Saline 1,000 ML 150 ML IV (21:18)
[2017-07-16] MEDS: 0.9% NaCl IVPB Med Flush (250 mL) 15 ML IV (21:20)
[2017-07-16] MEDS: Chlorhexidine 15 ML PO (22:01)
[2017-07-16 22:31] LABS: Lactic Acid 1.2 mmol/L (0.4-2.0)
[2017-07-17] VITALS (41 sets, daily range): BP systolic 120–164; BP diastolic 58–122; PULSE 84–106; RESP 14–22; TEMP 37.4–38.2; O2SAT 94–100
[2017-07-17] MEDS: Ipratropium/Albuterol Sulfate 3 ML AMPUL.NEB INHALATION ×4 (00:44→18:45)
[2017-07-17 03:30] LABS: Absolute Lymphocyte Count 1.72 X10^3/ul (0.83-4.51); Absolute Neutrophil Count 13.4 X10^3/uL (2.0-7.7); Basophil# 0.01 X10^3/uL; Basophil% 0.1 % (0-1); Hemoglobin 12.4 g/dl (12.0-15.0); Lymphocyte # 1.72 X10^3/ul (4.0); Lymphocyte % 10.6 % (19-41); Mean Corp Hgb Conc 31.8 g/gl (32-36); Mean Corpuscular Hgb 27.3 pg (27.0-32.0); Mean Corpuscular Volume 85.7 fL (81-99); Mean Platelet Vol. 11.7 fl (6.2-12.0); Monocyte# 1.08 X10^3/uL; Monocyte% 6.7 % (0-10); Neutrophil # 13.36 X10^3/uL (2.7-7.7); Neutrophil % 82.4 % (47-70); POSITIVE COUNT NO; POSITIVE DIFFERENTIAL NO; POSITIVE MORPHOLOGY NO; Platelet Count 205 K/mm3 (150-450); RBC Distribution Width CV 13.2 % (11.6-14.6); RBC Distribution Width SD 41.5 fl (35.1-43.9); Red Blood Count 4.55 M/mm3 (4.2-5.4); White Blood Count 16.2 K/mm3 (4.4-11.0)
[2017-07-17 03:43] LABS: ALB/GLOB Ratio 0.9 RATIO (0.9-2.4); AST(SGOT) 32 U/L (15-37); Alanine Aminotransfer ALT/SGPT 20 U/L (13-56); Albumin, Serum 3.1 g/dL (3.2-5.0); Alkaline Phosphatase 81 U/L (45-117); Anion Gap 11 (5-15); BUN 6 mg/dL (7-18); Chloride 108 mmol/L (98-107); EST Glomerular Filtration Rate 68 mL/min (>60); Est Glom Filt Rate - Afr Amer 83 mL/min (>60); Globulin 3.5 g/dL (2.2-4.2); Glucose 129 mg/dL (74-106); Magnesium 2.2 mg/dL (1.6-2.6); Phosphorus 3.4 mg/dL (2.5-4.9); Potassium 3.8 mmol/L (3.5-5.1); Protein, Total 6.6 g/dL (6.4-8.2); Sodium Level 142 mmol/L (136-145)
[2017-07-17] MEDS: CHLORHEXIDINE GLUC 2% CLOTH 1 EACH TOWELETTE TOPICAL (03:45)
[2017-07-17] MEDS: 0.9% Normal Saline 1,000 ML 150 ML IV (04:13)
--- NOTE | 2017-07-17 05:55 | RAD_ITS ---
STUDY: X-RAY CHEST REASON FOR EXAM: Female, 32 years old. Aspiration. TECHNIQUE: AP portable chest. COMPARISON: July 16, 2017. FINDINGS: Endotracheal tube tip 3.7 cm above the sidney. Nasogastric tube tip below left hemidiaphragm. Significantly improved aeration since prior study. No infiltrates or effusions. There may be minimal residual edema or subsegmental atelectasis left lung base. Minimal right basilar subsegmental atelectasis. No pneumothorax. Normal size heart. Normal mediastinum and man. Normal visualized pulmonary arteries. Normal visualized aortic arch and descending thoracic aorta. Normal visualized thoracic spine. Normal visualized ribs, clavicles, and shoulders. There is no demonstrated abnormality of the visualized soft tissue structures of the upper abdomen. RAD/Chest 1 View (Portable) IMPRESSION: Significantly improved aeration since the prior exam. No focal right pleural effusions. Electronically Signed: Aki Humphries MD at 7:28 EDT , Service support ,
[2017-07-17] MEDS: Piperacil/Tazobactam 3.375 GM/50 ML ML IV ×3 (06:20→22:36)
--- NOTE | 2017-07-17 06:36 | PCM.PROGNOTE ---
Patient Problems: Active and Suspected Problems LULY (acute kidney injury) (Acute) Subjective: All events of the past 24 hours have been reviewed. Antibiotic Day #2 Ventilator Day #2 TMAX: 100.8?F Vital signs: Blood pressure has ranged from 138/62-160 4/101. She is currently 99% saturated on mechanical ventilation with a 30% FiO2. Fluid balance: +133. Urine output: 2275 cc since admission. Weight: Today's weight is 261 pounds and 4 ounces, down from 263 and 4 ounces at admission. All radiologic testing was reviewed: CXR today with poor inspiration. ? infiltrate in the R base but, this may be residual from recent ASP PNA due to MSSA the end of May All labs were personally reviewed: White blood cell count today is 16.2 with 82% neutrophils. Hemoglobin is 12.4 and platelets are normal. Electrolytes are unremarkable. BUN is 6 with a creatinine of 1.00, down from 1.45 at admission. The initial lactic acid was 2.1 but decreased 1.2 with hydration. LFTs are unremarkable. Microbiology: MRSA nasal screen was negative. Sputum Gram stain, sputum culture, urine culture and blood cultures are pending. Telemetry: Normal sinus rhythm with no significant ectopy Subjective: 32-year-old female with 4 admissions to the hospital in less than 1 year due to seizures secondary to noncompliance with antiepileptic medications. Objective: - Physical Exam General: - - intubated, sedated, opens her eyes to her name and squeezed my hand upon upon command, no seizure activity observed HEENT: Atraumatic, PERRLA, Normocephalic Oral: No Gingival or Mucosal Lesions/ Ulcerations, Dry Mucosa Neck: Supple, No Nodes, No Nuchal Rigidity, Trachea Midline Lungs: No rhonchi, No wheeze, No rales Cardiovascular: Regular rate, Regular Rhythm, Normal S1, Normal S2, No murmurs, No rub noted, No Gallop Abdomen: Bowel Sounds Present, Soft, Non-Distended, Obese Extremities: No clubbing, No cyanosis, No edema, Capillary Refill Less than 3 Seconds, Peripheral Pulses Normal Skin: No rashes, No breakdown, - - she is dirty with poor hygiene. there is a small bruise caudal to the left clavicle Musculoskeletal: No Muscle Wasting Neurological: - - no facial asymmetry, moving all extremities. - Physical Exam Vital Signs Temp Pulse Resp BP Pulse Ox 100.4 F H 98 14 158/73 H 99 07/17/17 06:00 07/17/17 06:00 07/17/17 06:00 07/17/17 06:00 07/17/17 06:00 Oxygen Delivery Method Mechanical Ventilator Weight: 261 lb 3.964 oz Body Mass Index (BMI) 43.8 Intake and Output for Last 24 Hours 07/15/17 07/16/17 07/17/17 23:59 23:59 23:59 Intake Total 2978 / 2978 Output Total 2875 / 2875 Balance 103 / 103 Laboratory Tests Past 24 Hrs 07/16/17 07/16/17 07/16/17 18:00 20:40 21:50 WBC RBC Hgb Hct MCV MCH MCHC RDW RDW Differential Plt Count MPV Immature Gran % (Auto) Neut % (Auto) Lymph % (Auto) [place] % (Auto) Eos % (Auto) Baso % (Auto) Absolute Neuts (auto) Absolute Lymphs (auto) Total Counted Sodium Potassium Chloride Carbon Dioxide Anion Gap BUN Creatinine Estim Creat Clear Calc Est GFR (MDRD) Af Amer Est GFR (MDRD) Non-Af BUN/Creatinine Ratio Glucose Lactic Acid Cancelled 1.2 Calcium Phosphorus Magnesium Total Bilirubin AST ALT Alkaline Phosphatase Total Protein Albumin Globulin Albumin/Globulin Ratio MRSA (PCR) Negative 07/17/17 07/17/17 03:15 03:15 WBC 16.2 H RBC 4.55 Hgb 12.4 Hct 39.0 MCV 85.7 MCH 27.3 MCHC 31.8 L RDW 13.2 RDW Differential 41.5 Plt Count 205 MPV 11.7 Immature Gran % (Auto) 0.200 Neut % (Auto) 82.4 H Lymph % (Auto) 10.6 L [place] % (Auto) 6.7 Eos % (Auto) 0.0 Baso % (Auto) 0.1 Absolute Neuts (auto) 13.4 H Absolute Lymphs (auto) 1.72 Total Counted Not Reportable Sodium 142 Potassium 3.8 Chloride 108 H Carbon Dioxide 23.0 Anion Gap 11 BUN 6 L Creatinine 1.00 Estim Creat Clear Calc 72.00 Est GFR (MDRD) Af Amer 83 Est GFR (MDRD) Non-Af 68 BUN/Creatinine Ratio 6.0 L Glucose 129 H Lactic Acid Calcium 8.0 L Phosphorus 3.4 Magnesium 2.2 Total Bilirubin 0.40 AST 32 ALT 20 Alkaline Phosphatase 81 Total Protein 6.6 Albumin 3.1 L Globulin 3.5 Albumin/Globulin Ratio 0.9 MRSA (PCR) Medical Necessity - Tobacco Use Smoking Status: Current every day smoker Tobacco Use: Cigarettes Assessment/Plan Active and Suspected Problems LULY (acute kidney injury) (Acute) Impressions 1. Status epilepticus-secondary to noncompliance with antiepileptic medications despite being provided with medication prescriptions at her last discharge on 06/23/2017. This is her fourth admission to the hospital in less than 1 year for seizures secondary to noncompliance. 2. Suspected aspiration pneumonia 3. Morbid obesity 4. Hypertension 5. Seizure disorder 6. Depression 7. Illicit drug use-cannabis 8. metabolic acidosis due to status epilepticus 9. LULY - due to dehydration 10. recent aspiration PNA due to MSSA DC vancomycin, continue Zosyn...... await results of the sputum culture. Gram stain had 3+ white blood cells Spontaneous breathing trial in the a.m. continue Keppra 1250 mg twice daily Start tube feed today Recheck lab in the a.m. Since she was discharged from [facility] on 06/23 she has apparently been admitted to [place] for seizures. Will need referral to when she is extubated. Suspect there is a psychosocial reason why she is not taking her AED's. Maybe she is suicidal, or attention seeking? will involve when extubated. Code Visit Inpatient E&M: 78010 [facility] Hosp L3
--- NOTE | 2017-07-17 06:42 | PN_ITS ---
Patient Problems: Active and Suspected Problems LULY (acute kidney injury) (Acute) Subjective: All events of the past 24 hours have been reviewed. Antibiotic Day #2 Ventilator Day #2 TMAX: 100.8?F Vital signs: Blood pressure has ranged from 138/62-160 4/101. She is currently 99% saturated on mechanical ventilation with a 30% FiO2. Fluid balance: +133. Urine output: 2275 cc since admission. Weight: Today's weight is 261 pounds and 4 ounces, down from 263 and 4 ounces at admission. All radiologic testing was reviewed: CXR today with poor inspiration. ? infiltrate in the R base but, this may be residual from recent ASP PNA due to MSSA the end of May All labs were personally reviewed: White blood cell count today is 16.2 with 82 % neutrophils. Hemoglobin is 12.4 and platelets are normal. Electrolytes are unremarkable. BUN is 6 with a creatinine of 1.00, down from 1.45 at admission. The initial lactic acid was 2.1 but decreased 1.2 with hydration. LFTs are unremarkable. Microbiology: MRSA nasal screen was negative. Sputum Gram stain, sputum culture , urine culture and blood cultures are pending. Telemetry: Normal sinus rhythm with no significant ectopy Subjective: 32-year-old female with 4 admissions to the hospital in less than 1 year due to seizures secondary to noncompliance with antiepileptic medications. Objective: - Physical Exam General: - - intubated, sedated, opens her eyes to her name and squeezed my hand upon upon command, no seizure activity observed HEENT: Atraumatic, PERRLA, Normocephalic Oral: No Gingival or Mucosal Lesions/ Ulcerations, Dry Mucosa Neck: Supple, No Nodes, No Nuchal Rigidity, Trachea Midline Lungs: No rhonchi, No wheeze, No rales Cardiovascular: Regular rate, Regular Rhythm, Normal S1, Normal S2, No murmurs, No rub noted, No Gallop Abdomen: Bowel Sounds Present, Soft, Non-Distended, Obese Extremities: No clubbing, No cyanosis, No edema, Capillary Refill Less than 3 Seconds, Peripheral Pulses Normal Skin: No rashes, No breakdown, - - she is dirty with poor hygiene. there is a small bruise caudal to the left clavicle Musculoskeletal: No Muscle Wasting Neurological: - - no facial asymmetry, moving all extremities. - Physical Exam Vital Signs Temp Pulse Resp BP Pulse Ox 100.4 F H 98 14 158/73 H 99 07/17/17 06:00 07/17/17 06:00 07/17/17 06:00 07/17/17 06:00 07/17/17 06:00 Oxygen Delivery Method Mechanical Ventilator Weight: 261 lb 3.964 oz Body Mass Index (BMI) 43.8 Intake and Output for Last 24 Hours 07/15/17 07/16/17 07/17/17 23:59 23:59 23:59 Intake Total 2978 / 2978 Output Total 2875 / 2875 Balance 103 / 103 Laboratory Tests Past 24 Hrs 07/16/17 07/16/17 07/16/17 18:00 20:40 21:50 WBC RBC Hgb Hct MCV MCH MCHC RDW RDW Differential Plt Count MPV Immature Gran % (Auto) Neut % (Auto) Lymph % (Auto) [place] % (Auto) Eos % (Auto) Baso % (Auto) Absolute Neuts (auto) Absolute Lymphs (auto) Total Counted Sodium Potassium Chloride Carbon Dioxide Anion Gap BUN Creatinine Estim Creat Clear Calc Est GFR (MDRD) Af Amer Est GFR (MDRD) Non-Af BUN/Creatinine Ratio Glucose Lactic Acid Cancelled 1.2 Calcium Phosphorus Magnesium Total Bilirubin AST ALT Alkaline Phosphatase Total Protein Albumin Globulin Albumin/Globulin Ratio MRSA (PCR) Negative 07/17/17 07/17/17 03:15 03:15 WBC 16.2 H RBC 4.55 Hgb 12.4 Hct 39.0 MCV 85.7 MCH 27.3 MCHC 31.8 L RDW 13.2 RDW Differential 41.5 Plt Count 205 MPV 11.7 Immature Gran % (Auto) 0.200 Neut % (Auto) 82.4 H Lymph % (Auto) 10.6 L [place] % (Auto) 6.7 Eos % (Auto) 0.0 Baso % (Auto) 0.1 Absolute Neuts (auto) 13.4 H Absolute Lymphs (auto) 1.72 Total Counted Not Reportable Sodium 142 Potassium 3.8 Chloride 108 H Carbon Dioxide 23.0 Anion Gap 11 BUN 6 L Creatinine 1.00 Estim Creat Clear Calc 72.00 Est GFR (MDRD) Af Amer 83 Est GFR (MDRD) Non-Af 68 BUN/Creatinine Ratio 6.0 L Glucose 129 H Lactic Acid Calcium 8.0 L Phosphorus 3.4 Magnesium 2.2 Total Bilirubin 0.40 AST 32 ALT 20 Alkaline Phosphatase 81 Total Protein 6.6 Albumin 3.1 L Globulin 3.5 Albumin/Globulin Ratio 0.9 MRSA (PCR) Medical Necessity - Tobacco Use Smoking Status: Current every day smoker Tobacco Use: Cigarettes Assessment/Plan Active and Suspected Problems LULY (acute kidney injury) (Acute) Impressions 1. Status epilepticus-secondary to noncompliance with antiepileptic medications despite being provided with medication prescriptions at her last discharge on 06/23/2017. This is her fourth admission to the hospital in less than 1 year for seizures secondary to noncompliance. 2. Suspected aspiration pneumonia 3. Morbid obesity 4. Hypertension 5. Seizure disorder 6. Depression 7. Illicit drug use-cannabis 8. metabolic acidosis due to status epilepticus 9. LULY - due to dehydration 10. recent aspiration PNA due to MSSA DC vancomycin, continue Zosyn...... await results of the sputum culture. Gram stain had 3+ white blood cells Spontaneous breathing trial in the a.m. continue Keppra 1250 mg twice daily Start tube feed today Recheck lab in the a.m. Since she was discharged from [facility] on 06/23 she has apparently been admitted to [place] for seizures. Will need referral to when she is extubated. Suspect there is a psychosocial reason why she is not taking her AED's. Maybe she is suicidal, or attention seeking? will involve when extubated. Code Visit Inpatient E&M: 10081 [facility] Hosp L3
--- NOTE | 2017-07-17 07:24 | CON.PCM_ITS ---
Reason for Consult Date of Consultation: 07/17/17 Reason for Consultation: Acute respiratory failure History of Present Illness: The patient is a 32-year-old female, with a history as outlined below, who presented to the emergency department in the setting of generalized tonic- clonic seizure activity. The patient has reported history of epilepsy, for which she is prescribed Keppra and Topamax as an outpatient. Her underlying compliance with the aforementioned medication regimen includes is questionable. She has been admitted to the hospital multiple times previously for seizure related issues. In fact, the patient was just admitted to the hospital June 20 under similar circumstances. Her hospital course at that time was complicated by MSSA aspiration pneumonia. The patient was evaluated by neurology during her last admission and was recommended to be on Keppra 1250 mg twice daily. On presentation to the emergency department, the patient was noted to be afebrile, tachycardic and hypertensive. Initial laboratory evaluation revealed elevated white blood cell count to 18,000. Chemistry profile was notable for acute kidney injury with a creatinine 1.45. Upon arrival to the emergency department, the patient was noted to be actively seizing and was subsequently intubated for airway protection. She was also started on Zosyn for presumptive aspiration pneumonia. The patient was subsequently transferred to the medical intensive care unit for ongoing management. Past Medical History Past Medical History (Chronic Problems): Chronic Problems Cannabis abuse (Chronic) Non compliance w medication regimen (Chronic) Seizure disorder (Chronic) HTN (hypertension) (Chronic) Tobacco use (Chronic) Depression (Chronic) Morbid obesity with BMI of 50.0-59.9, adult (Chronic) Allergies naproxen Allergy (Verified 06/20/17 16:19) Hives Home Medications: Ambulatory Orders Medication Instructions Recorded Amlodipine [Norvasc] 10 mg PO DAILY 09/17/16 Levetiracetam [Keppra] 1,000 mg PO BID #60 tab 06/23/17 levETIRAcetam tablet [Keppra 250 mg PO BID #60 tab 06/23/17 tablet] Surgical History: noncontributory Psychiatric History: Depression Smoking Status: Current every day smoker Tobacco Use: Cigarettes Drugs: Marijuana - *Family History Maternal History Items: No pertinent history, - - Unable to get any family history from the patient as she is intubated and sedated. Review of Systems Unable to obtain accurate/complete ROS d/t: Due to current intubation and mechanical ventilation status. Patient Problems: Active and Suspected Problems LULY (acute kidney injury) (Acute) Objective: The patient's most recent lab work, culture data and imaging studies have all been personally reviewed. Blood, urine and sputum cultures are currently pending. - Physical Exam General: - - Intubated, sedated and mechanically ventilated. HEENT: Atraumatic, PERRLA, Normocephalic Oral: No Gingival or Mucosal Lesions/ Ulcerations, - - Endotracheal and OG tubes in place Neck: Supple, No Nodes, Trachea Midline Lungs: Diminished, - - Coarse mechanical breath sounds across anterior lung kiran Cardiovascular: Regular rate, Regular Rhythm, Normal S1, Normal S2, No murmurs Abdomen: Bowel Sounds Present, Soft, Non Tender, Obese Extremities: No clubbing, No cyanosis, No edema Skin: No breakdown Musculoskeletal: No Muscle Wasting Lymphatic: No Cervical, Supraclavicular, or Inguinal Adenopathy Neurological: - - No focal neurological deficits. Moves extremities spontaneously. Opens eyes to verbal cues and falls quickly back to sleep. Vital Signs Temp Pulse Resp BP Pulse Ox 100.2 F H 96 14 143/68 H 98 07/17/17 07:00 07/17/17 07:00 07/17/17 07:00 07/17/17 07:00 07/17/17 07:00 Oxygen Delivery Method Mechanical Ventilator Weight: 261 lb 3.964 oz Body Mass Index (BMI) 43.8 Intake and Output for Last 24 Hours 07/15/17 07/16/17 07/17/17 23:59 23:59 23:59 Intake Total 3008 / 3008 Output Total 2875 / 2875 Balance 133 / 133 Laboratory Tests Past 24 Hrs 07/16/17 07/16/17 07/16/17 18:00 20:40 21:50 WBC RBC Hgb Hct MCV MCH MCHC RDW RDW Differential Plt Count MPV Immature Gran % (Auto) Neut % (Auto) Lymph % (Auto) [place] % (Auto) Eos % (Auto) Baso % (Auto) Absolute Neuts (auto) Absolute Lymphs (auto) Total Counted Sodium Potassium Chloride Carbon Dioxide Anion Gap BUN Creatinine Estim Creat Clear Calc Est GFR (MDRD) Af Amer Est GFR (MDRD) Non-Af BUN/Creatinine Ratio Glucose Lactic Acid Cancelled 1.2 Calcium Phosphorus Magnesium Total Bilirubin AST ALT Alkaline Phosphatase Total Protein Albumin Globulin Albumin/Globulin Ratio MRSA (PCR) Negative 07/17/17 07/17/17 03:15 03:15 WBC 16.2 H RBC 4.55 Hgb 12.4 Hct 39.0 MCV 85.7 MCH 27.3 MCHC 31.8 L RDW 13.2 RDW Differential 41.5 Plt Count 205 MPV 11.7 Immature Gran % (Auto) 0.200 Neut % (Auto) 82.4 H Lymph % (Auto) 10.6 L [place] % (Auto) 6.7 Eos % (Auto) 0.0 Baso % (Auto) 0.1 Absolute Neuts (auto) 13.4 H Absolute Lymphs (auto) 1.72 Total Counted Not Reportable Sodium 142 Potassium 3.8 Chloride 108 H Carbon Dioxide 23.0 Anion Gap 11 BUN 6 L Creatinine 1.00 Estim Creat Clear Calc 72.00 Est GFR (MDRD) Af Amer 83 Est GFR (MDRD) Non-Af 68 BUN/Creatinine Ratio 6.0 L Glucose 129 H Lactic Acid Calcium 8.0 L Phosphorus 3.4 Magnesium 2.2 Total Bilirubin 0.40 AST 32 ALT 20 Alkaline Phosphatase 81 Total Protein 6.6 Albumin 3.1 L Globulin 3.5 Albumin/Globulin Ratio 0.9 MRSA (PCR) Clinical Impression(s) from Imaging Studies Chest X-Ray 07/16/17 13:58 IMPRESSION: The endotracheal tube terminates about 3.7 cm above the sidney. The gastric tube extends adequately into the upper abdomen. There is mild edema, and there are small to moderate pleural effusions bilaterally. There is likely compressive atelectasis in both lung bases. Electronically Signed: Patricia Brar MD at 16:18 EDT Tel Direct: [phone], Service support , Assessment/Plan Active and Suspected Problems LULY (acute kidney injury) (Acute) RECOMMENDATIONS: 1. Continue Keppra as ordered, along with as needed Ativan and seizure precautions. 2. Continue antibiotics, pending finalized culture results. 3. Discontinue supplemental IV fluids and start tube feeds today 4. Continue Lovenox and Pepcid for ICU prophylaxis 5. Minimize sedation as tolerated. Goal RASS of -1 to 1. IMPRESSIONS: 1. Acute respiratory failure The patient was electively intubated in the emergency department for airway protection upon presentation. She previously had a known aspiration pneumonia during her previous admission. Although her plain film chest imaging is largely unrevealing, agree with continuing antibiotics until culture results have finalized. Vancomycin can be discontinued, nevertheless. Wean FiO2 and PEEP to maintain oxygen saturations at or above 90%. Minimize sedating medications. Maintain a RASS of -1 to 1. Plans for daily paired spontaneous awakening and breathing trials. Discontinue supplemental IV fluids and start tube feeds today per nutrition recommendations. 2. Personal history of epilepsy with breakthrough seizure activity secondary to suspected medication noncompliance Continue Keppra as ordered, along with as needed Ativan and seizure precautions. 3. Acute kidney injury Likely prerenal in etiology. The patient's creatinine has stabilized and urine output remains appropriate. No indication for renal replacement therapy at this time. TIME: 45 minutes of critical care time, independent of procedures, was spent addressing the patient's acute respiratory failure, history of epilepsy with breakthrough seizure activity secondary to noncompliance, acute kidney injury, review of all data and collaboration with the care team. ([id number]) Code Visit [id number]: [id number] Critical care first hour
[2017-07-17 08:55] LABS: Amphetamine Urine VISTA NEGATIVE (<1000 ng/mL); Barbiturate Urine VISTA NEGATIVE (< 200 ng/mL); Benzodiazepine Urine VISTA NEGATIVE (< 200 ng/mL); Cocaine Urine VISTA NEGATIVE (< 300 ng/mL); Ecstacy Urine VISTA NEGATIVE (< 500 ng/mL); Methadone Urine VISTA NEGATIVE (< 300 ng/mL); PCP Urine VISTA NEGATIVE (< 25 ng/mL); THC Urine VISTA NEGATIVE (< 50 ng/mL); Vista UDS pH Range 7
[2017-07-17 09:01] LABS: Allen Test POS; Base Excess 0 mmol/L (-2 to +2); Bicarbonate 23.7 mmol/L (22-26); Blood Gas Specimen Type ART; FI02 30; Mode A-C; O2 Delivery Device Vent; PEEP 5; PO2 100 mmHG (75-100); RR 14; SITE R Brachial; SO2 98 % (95-99); Time Given 855; Total Carbon Dioxide 25 mmol/L; Vt 450; pCO2 34.3 mmHg (35-45); pH 7.45 (7.35-7.45)
--- NOTE | 2017-07-17 09:51 | CASEMGMT ---
Addendum entered by Annabelle Ovalle 07/17/17 10:16: SW spoke w/RN, she spoke w/ who states pt ran out of the Keppra, and she also has been hospitalized at [facility] since her last admission here last month. There they prescribed a lesser dose of the Keppra. It is still unclear as to how pt ran out of the Keppra as she was given a script for a 30 day supply at discharge from this hospital late in May. SW will follow up w/pt when she is able to speak w/this SW. CAMILO Hartmann, [employer] SPECIALIST Original Note: As per CM, there is concern as to why pt is not taking her medication, and a referral to Behavioral Health has been recommended. Once pt is off the ventilator, SW will make referral to Behavioral Health. CAMILO Hartmann, CHE[employer] SPECIALIST
[2017-07-17] MEDS: Chlorhexidine 15 ML PO ×2 (10:38→22:37)
[2017-07-17] MEDS: Enoxaparin 40 MG/0.4 ML Syringe SC (10:39)
[2017-07-17] MEDS: levETIRAcetam Oral Solution 500 MG/5 ML 1250 MG GT ×2 (10:39→22:36)
[2017-07-17] MEDS: Polyethylene Glycol 3350 17 GM PACKET GT ×2 (10:40→22:37)
[2017-07-17] MEDS: amLODIPine 10 MG Tablet PO (10:41)
[2017-07-17] MEDS: Famotidine 20 MG Tablet GT (10:41)
[2017-07-17 11:36] LABS: Pathologist Review Reviewed
[2017-07-17] MEDS: Vital AF 1.2 Cal Liquid 1,000 ML 60 ML GT (16:12)
[2017-07-17 17:25] LABS: Bedside Glucose 115 mg/dL (70-110)
[2017-07-17 23:06] LABS: Bedside Glucose 108 mg/dL (70-110)
[2017-07-18] VITALS (43 sets, daily range): BP systolic 107–131; BP diastolic 31–88; PULSE 70–99; RESP 12–26; TEMP 37.2–38.1; O2SAT 97–100
[2017-07-18] MEDS: Ipratropium/Albuterol Sulfate 3 ML AMPUL.NEB INHALATION ×4 (00:46→18:32)
[2017-07-18 04:41] LABS: Absolute Lymphocyte Count 1.58 X10^3/ul (0.83-4.51); Absolute Neutrophil Count 7.1 X10^3/uL (2.0-7.7); Basophil# 0.01 X10^3/uL; Basophil% 0.1 % (0-1); Hematocrit 37.5 % (37-47); Hemoglobin 11.6 g/dl (12.0-15.0); Lymphocyte # 1.58 X10^3/ul (4.0); Lymphocyte % 16.2 % (19-41); Mean Corp Hgb Conc 30.9 g/gl (32-36); Mean Corpuscular Volume 87.4 fL (81-99); Mean Platelet Vol. 11.8 fl (6.2-12.0); Monocyte# 0.99 X10^3/uL; Monocyte% 10.2 % (0-10); Neutrophil # 7.06 X10^3/uL (2.7-7.7); Neutrophil % 72.4 % (47-70); Platelet Count 186 K/mm3 (150-450); RBC Distribution Width CV 13.8 % (11.6-14.6); RBC Distribution Width SD 43.6 fl (35.1-43.9); Red Blood Count 4.29 M/mm3 (4.2-5.4); White Blood Count 9.8 K/mm3 (4.4-11.0)
[2017-07-18 04:43] LABS: POSITIVE COUNT NO; POSITIVE DIFFERENTIAL NO; POSITIVE MORPHOLOGY NO
[2017-07-18 05:15] LABS: Anion Gap 6 (5-15); BUN 9 mg/dL (7-18); BUN/Creat Ratio 9.7 RATIO (10-20); Calcium,Total 8.3 mg/dL (8.5-10.1); Chloride 107 mmol/L (98-107); Creatinine, Serum 0.93 mg/dL (0.55-1.02); EST Glomerular Filtration Rate 74 mL/min (>60); Est Glom Filt Rate - Afr Amer 89 mL/min (>60); Estimated Creatinine Clearance 77.42 ml/min; Glucose 107 mg/dL (74-106); Potassium 3.7 mmol/L (3.5-5.1); Sodium Level 142 mmol/L (136-145)
[2017-07-18] MEDS: Piperacil/Tazobactam 3.375 GM/50 ML ML IV ×2 (05:58→13:26)
[2017-07-18] MEDS: CHLORHEXIDINE GLUC 2% CLOTH 1 EACH TOWELETTE TOPICAL (05:59)
[2017-07-18 06:16] LABS: Bedside Glucose 100 mg/dL (70-110)
--- NOTE | 2017-07-18 06:16 | PCM.PROGNOTE ---
Patient Problems: Active and Suspected Problems LULY (acute kidney injury) (Acute) Subjective: All events of the past 24 hours have been reviewed. Antibiotic Day #3 Ventilator Day #3 TMAX: 100.6?F core Vital signs: Stable, 99% on a 30% FiO2 Fluid balance: +86 since admission Urine output: 4225 on 07/17/2017 Weight: 258 pounds and 6 ounces, down from 263 and 4 ounces at admission All radiologic testing was reviewed: No x-rays today All labs were personally reviewed: White blood cell count is normal at 9.8 with an unremarkable differential. Hemoglobin is stable and platelets are normal. BMP is within normal limits. Creatinine is 0.93 today down from 1.45 at admission Microbiology: Pending Telemetry: Sinus rhythm with no significant ectopy Subjective: She is alert today and currently on a CPAP trial. She denies shortness of breath and also denies pain. She denies being suicidal. She denies any history of suicidal attempt. Does admit to not taking her medications. Objective: - Physical Exam General: - - intubated, alert, able to follow commands and answer yes and no questions HEENT: Atraumatic, PERRLA, Normocephalic Oral: No Gingival or Mucosal Lesions/ Ulcerations, Dry Mucosa Neck: Supple, No Nodes, No Nuchal Rigidity, Trachea Midline Lungs: No rhonchi, No wheeze, No rales Cardiovascular: Regular rate, Regular Rhythm, Normal S1, Normal S2, No murmurs, No rub noted, No Gallop Abdomen: Bowel Sounds Present, Soft, Non-Distended, Obese, no guarding with palpation Extremities: No clubbing, No cyanosis, No edema, Capillary Refill Less than 3 Seconds, Peripheral Pulses Normal Skin: No rashes, No breakdown, - - she is dirty with poor hygiene. there is a small bruise caudal to the left clavicle Musculoskeletal: No Muscle Wasting Neurological: - - no facial asymmetry, moving all extremities. - Physical Exam Vital Signs Temp Pulse Resp BP Pulse Ox 99.6 F H 83 23 H 131/71 H 99 07/18/17 06:00 07/18/17 06:00 07/18/17 06:00 07/18/17 06:00 07/18/17 06:00 Oxygen Delivery Method Mechanical Ventilator Weight: 258 lb 6.108 oz Body Mass Index (BMI) 43.8 Intake and Output for Last 24 Hours 07/16/17 07/17/17 07/18/17 23:59 23:59 23:59 Intake Total 4489 / 4489 542 / 542 Output Total 4825 / 4825 150 / 150 Balance -336 / -336 392 / 392 Microbiology Past 72 Hours 07/16/17 19:03 Gram Stain - Final Sputum, Induced/Lukens Laboratory Tests Past 24 Hrs 07/17/17 07/18/17 07/18/17 08:58 04:30 04:30 WBC 9.8 RBC 4.29 Hgb 11.6 L Hct 37.5 MCV 87.4 MCH 27.0 MCHC 30.9 L RDW 13.8 RDW Differential 43.6 Plt Count 186 MPV 11.8 Immature Gran % (Auto) 0.100 Neut % (Auto) 72.4 H Lymph % (Auto) 16.2 L [place] % (Auto) 10.2 H Eos % (Auto) 1.0 Baso % (Auto) 0.1 Absolute Neuts (auto) 7.1 Absolute Lymphs (auto) 1.58 Total Counted Not Reportable Specimen Type ART Sample Site R Brachial pH 7.45 Bicarbonate Actual 23.7 POC Total CO2 25 Base Excess 0 O2 Saturation 98 O2 % 30 ABG pCO2 34.3 L ABG pO2 100 Carlo Test POS Respiration Rate 14 O2 Delivery Device Vent Minute Volume 7.00 Vent Mode A-C Tidal Volume 450 POC PEEP 5 Blood Gas Notified Whom ICU Blood Gas Notified Time 855 Sodium 142 Potassium 3.7 Chloride 107 Carbon Dioxide 29.0 Anion Gap 6 BUN 9 Creatinine 0.93 Estim Creat Clear Calc 77.42 Est GFR (MDRD) Af Amer 89 Est GFR (MDRD) Non-Af 74 BUN/Creatinine Ratio 9.7 L Glucose 107 H Calcium 8.3 L POC Glucose 07/18/17 07/17/17 07/17/17 05:54 22:57 17:19 POC Glucose 100 108 115 H Medical Necessity - Tobacco Use Smoking Status: Current every day smoker Tobacco Use: Cigarettes Assessment/Plan Active and Suspected Problems LULY (acute kidney injury) (Acute) Impressions 1. Status epilepticus-secondary to noncompliance with antiepileptic medications despite being provided with medication prescriptions at her last discharge on 06/23/2017. This is her fourth admission to the hospital in less than 1 year for seizures secondary to noncompliance. 2. Suspected aspiration pneumonia -preliminary on the sputum culture is mixed normal respiratory reta. CXR on 07/17 had no infiltrates 3. Morbid obesity 4. Hypertension 5. Seizure disorder 6. Depression 7. Illicit drug use-cannabis 8. metabolic acidosis due to status epilepticus 9. LULY - due to dehydration 10. recent aspiration PNA due to MSSA Weaning trial on CPAP going well - anticipate she will be extubated today Respiratory culture with normal respiratory reta and the CXR without infiltrates......will discuss with Dr. Mckeon de-escalating antibiotic or even discontinuing Will get a consult with following extubation and try and get to why she is not taking her AED's Code Visit Inpatient E&M: [id number] [facility] Hosp L3
--- NOTE | 2017-07-18 06:46 | PCM.PN.INT ---
Subjective: The patient was seen and examined at the bedside this morning. Events from the last 24 hours have been reviewed. The patient currently has a low-grade fever, but remains hemodynamically stable. Ventilator requirements are minimal. Per nursing report, the patient did have a bilious appearing emesis overnight. Respiratory therapy notes tenacious secretion production. Despite all of this, the patient is more alert this morning and currently tolerating a spontaneous breathing trial. No further seizure activity has been witnessed. White blood cell count has improved. Objective: The patient's most recent lab work, culture data and imaging studies have all been personally reviewed. Sputum Gram stain revealed 3+ gram-positive cocci. Blood and urine cultures are currently pending. General: - - Remains intubated and mechanically ventilated. Currently tolerating CPAP mode of mechanical ventilation without issue. HEENT: Atraumatic, PERRLA, Normocephalic Oral: No Gingival or Mucosal Lesions/ Ulcerations, - - Endotracheal and OG tubes in place Neck: Supple, No Nodes, Trachea Midline Lungs: No rhonchi, No wheeze, No rales, Diminished Cardiovascular: Regular rate, Regular Rhythm, Normal S1, Normal S2, No murmurs Abdomen: Bowel Sounds Present, Soft, Non Tender, Obese Extremities: No clubbing, No cyanosis, No edema Skin: - - No significant change from previous. Musculoskeletal: No Muscle Wasting Lymphatic: No Cervical, Supraclavicular, or Inguinal Adenopathy Neurological: - - No focal neurological deficits. Moves all extremities spontaneously. More alert today and following simple commands. Vital Signs Temp Pulse Resp BP Pulse Ox 99.6 F H 83 23 H 131/71 H 99 07/18/17 06:00 07/18/17 06:00 07/18/17 06:00 07/18/17 06:00 07/18/17 06:00 Oxygen Delivery Method Mechanical Ventilator Weight: 258 lb 6.108 oz Body Mass Index (BMI) 43.8 Intake and Output for Last 24 Hours 07/16/17 07/17/17 07/18/17 23:59 23:59 23:59 Intake Total 4489 / 4489 542 / 542 Output Total 4825 / 4825 150 / 150 Balance -336 / -336 392 / 392 Labs (Last 48 Hours) 07/16/17 07/16/17 07/16/17 18:00 20:40 21:50 WBC RBC Hgb Hct MCV MCH MCHC RDW RDW Differential Plt Count MPV Immature Gran % (Auto) Neut % (Auto) Lymph % (Auto) [place] % (Auto) Eos % (Auto) Baso % (Auto) Absolute Neuts (auto) Absolute Lymphs (auto) Total Counted Specimen Type Sample Site pH Bicarbonate Actual POC Total CO2 Base Excess O2 Saturation O2 % ABG pCO2 ABG pO2 Carlo Test Respiration Rate O2 Delivery Device Minute Volume Vent Mode Tidal Volume POC PEEP Blood Gas Notified Whom Blood Gas Notified Time Sodium Potassium Chloride Carbon Dioxide Anion Gap BUN Creatinine Estim Creat Clear Calc Est GFR (MDRD) Af Amer Est GFR (MDRD) Non-Af BUN/Creatinine Ratio Glucose Lactic Acid Cancelled 1.2 Calcium Phosphorus Magnesium Total Bilirubin AST ALT Alkaline Phosphatase Total Protein Albumin Globulin Albumin/Globulin Ratio MRSA (PCR) Negative POC Glucose 07/17/17 07/17/17 07/17/17 03:15 03:15 08:58 WBC 16.2 H RBC 4.55 Hgb 12.4 Hct 39.0 MCV 85.7 MCH 27.3 MCHC 31.8 L RDW 13.2 RDW Differential 41.5 Plt Count 205 MPV 11.7 Immature Gran % (Auto) 0.200 Neut % (Auto) 82.4 H Lymph % (Auto) 10.6 L [place] % (Auto) 6.7 Eos % (Auto) 0.0 Baso % (Auto) 0.1 Absolute Neuts (auto) 13.4 H Absolute Lymphs (auto) 1.72 Total Counted Not Reportable Specimen Type ART Sample Site R Brachial pH 7.45 Bicarbonate Actual 23.7 POC Total CO2 25 Base Excess 0 O2 Saturation 98 O2 % 30 ABG pCO2 34.3 L ABG pO2 100 Carlo Test POS Respiration Rate 14 O2 Delivery Device Vent Minute Volume 7.00 Vent Mode A-C Tidal Volume 450 POC PEEP 5 Blood Gas Notified Whom ICU MD Blood Gas Notified Time 855 Sodium 142 Potassium 3.8 Chloride 108 H Carbon Dioxide 23.0 Anion Gap 11 BUN 6 L Creatinine 1.00 Estim Creat Clear Calc 72.00 Est GFR (MDRD) Af Amer 83 Est GFR (MDRD) Non-Af 68 BUN/Creatinine Ratio 6.0 L Glucose 129 H Lactic Acid Calcium 8.0 L Phosphorus 3.4 Magnesium 2.2 Total Bilirubin 0.40 AST 32 ALT 20 Alkaline Phosphatase 81 Total Protein 6.6 Albumin 3.1 L Globulin 3.5 Albumin/Globulin Ratio 0.9 MRSA (PCR) POC Glucose 07/17/17 07/17/17 07/18/17 17:19 22:57 04:30 WBC 9.8 RBC 4.29 Hgb 11.6 L Hct 37.5 MCV 87.4 MCH 27.0 MCHC 30.9 L RDW 13.8 RDW Differential 43.6 Plt Count 186 MPV 11.8 Immature Gran % (Auto) 0.100 Neut % (Auto) 72.4 H Lymph % (Auto) 16.2 L [place] % (Auto) 10.2 H Eos % (Auto) 1.0 Baso % (Auto) 0.1 Absolute Neuts (auto) 7.1 Absolute Lymphs (auto) 1.58 Total Counted Not Reportable Specimen Type Sample Site pH Bicarbonate Actual POC Total CO2 Base Excess O2 Saturation O2 % ABG pCO2 ABG pO2 Carlo Test Respiration Rate O2 Delivery Device Minute Volume Vent Mode Tidal Volume POC PEEP Blood Gas Notified Whom Blood Gas Notified Time Sodium Potassium Chloride Carbon Dioxide Anion Gap BUN Creatinine Estim Creat Clear Calc Est GFR (MDRD) Af Amer Est GFR (MDRD) Non-Af BUN/Creatinine Ratio Glucose Lactic Acid Calcium Phosphorus Magnesium Total Bilirubin AST ALT Alkaline Phosphatase Total Protein Albumin Globulin Albumin/Globulin Ratio MRSA (PCR) POC Glucose 115 H 108 07/18/17 07/18/17 04:30 05:54 WBC RBC Hgb Hct MCV MCH MCHC RDW RDW Differential Plt Count MPV Immature Gran % (Auto) Neut % (Auto) Lymph % (Auto) [place] % (Auto) Eos % (Auto) Baso % (Auto) Absolute Neuts (auto) Absolute Lymphs (auto) Total Counted Specimen Type Sample Site pH Bicarbonate Actual POC Total CO2 Base Excess O2 Saturation O2 % ABG pCO2 ABG pO2 Carlo Test Respiration Rate O2 Delivery Device Minute Volume Vent Mode Tidal Volume POC PEEP Blood Gas Notified Whom Blood Gas Notified Time Sodium 142 Potassium 3.7 Chloride 107 Carbon Dioxide 29.0 Anion Gap 6 BUN 9 Creatinine 0.93 Estim Creat Clear Calc 77.42 Est GFR (MDRD) Af Amer 89 Est GFR (MDRD) Non-Af 74 BUN/Creatinine Ratio 9.7 L Glucose 107 H Lactic Acid Calcium 8.3 L Phosphorus Magnesium Total Bilirubin AST ALT Alkaline Phosphatase Total Protein Albumin Globulin Albumin/Globulin Ratio MRSA (PCR) POC Glucose 100 Microbiology 07/16/17 19:03 Sputum, Induced/Lukens Gram Stain - Final Clinical Impression(s) from Imaging Studies Chest X-Ray 07/16/17 13:58 IMPRESSION: The endotracheal tube terminates about 3.7 cm above the sidney. The gastric tube extends adequately into the upper abdomen. There is mild edema, and there are small to moderate pleural effusions bilaterally. There is likely compressive atelectasis in both lung bases. Electronically Signed: Patricia Brar MD at 16:18 EDT Tel Direct: [phone], Service support , Chest X-Ray 07/17/17 05:55 IMPRESSION: Significantly improved aeration since the prior exam. No focal right pleural effusions. Electronically Signed: Aki Humphries MD at 7:28 EDT , Service support , Medical Necessity - Tobacco Use Smoking Status: Current every day smoker Tobacco Use: Cigarettes Assessment/Plan Active and Suspected Problems LULY (acute kidney injury) (Acute) RECOMMENDATIONS: 1. Continue Keppra as ordered, along with as needed Ativan and seizure precautions. 2. Continue antibiotics, pending finalized culture results. We will plan to resend the patient's sputum culture. 3. Please tube feeds on hold for potential extubation later this morning. 4. Continue Lovenox and Pepcid for ICU prophylaxis 5. Minimize sedation as tolerated. Goal RASS of -1 to 1. 6. Potential extubation later this morning. IMPRESSIONS: 1. Acute respiratory failure with concern for aspiration pneumonitis/pneumonia The patient was electively intubated in the emergency department for airway protection upon presentation. She had a known aspiration pneumonia during her previous admission. Although her plain film chest imaging is largely unrevealing, agree with continuing antibiotics until culture results have finalized. Although the patient's initial sputum culture revealed normal respiratory reta, her secretion production is tenacious in nature. Therefore, a repeat sputum culture will be sent. Dosing will be continued in the interim. The patient can be maintained on CPAP for now with plans for potential extubation later this morning. Tube feeds to be placed on hold. 2. Personal history of epilepsy with breakthrough seizure activity secondary to suspected medication noncompliance Continue Keppra as ordered, along with as needed Ativan and seizure precautions. 3. Acute kidney injury Likely prerenal in etiology. The patient's creatinine has stabilized and urine output remains appropriate. No indication for renal replacement therapy at this time. TIME: 40 minutes of critical care time, independent of procedures, was spent addressing the patient's acute respiratory failure, history of epilepsy with breakthrough seizure activity secondary to noncompliance, acute kidney injury, review of all data and collaboration with the care team. ([id number]) Code Visit [id number]: [id number] Critical care first hour
[2017-07-18] MEDS: Chlorhexidine 15 ML PO ×2 (09:17→23:24)
[2017-07-18] MEDS: amLODIPine 10 MG Tablet PO (09:17)
[2017-07-18] MEDS: Famotidine 20 MG Tablet GT (09:17)
[2017-07-18] MEDS: Polyethylene Glycol 3350 17 GM PACKET GT ×2 (09:17→23:23)
[2017-07-18] MEDS: levETIRAcetam Oral Solution 500 MG/5 ML 1250 MG GT ×2 (09:17→23:23)
[2017-07-18] MEDS: Enoxaparin 40 MG/0.4 ML Syringe SC (09:17)
[2017-07-18 11:46] LABS: Bedside Glucose 103 mg/dL (70-110)
[2017-07-18] MEDS: Vital AF 1.2 Cal Liquid 1,000 ML 60 ML GT (13:28)
[2017-07-18 17:16] LABS: Bedside Glucose 103 mg/dL (70-110)
--- NOTE | 2017-07-18 19:48 | PCM.HOSP.N ---
Hospitalist Note Microbiology lab called for gram-positive cocci on Gram stain from preliminary blood culture report. Started on IV vancomycin 15 mg/kg body weight and pharmacist to dose and follow the trough level. Follow the blood culture.
--- NOTE | 2017-07-18 22:30 | NURSING ---
During line insertion, 2% Lidocaine was used by Dr. Munson.
--- NOTE | 2017-07-18 23:15 | NURSING ---
At 2215, Dr. Munson at bedside to insert central line. At 2245, called Dr. Rod to assist. Central line insertion successful at 2305. Vitals stable throughout procedure, patient tolerated well.
--- NOTE | 2017-07-18 23:20 | RAD_ITS ---
STUDY: X-RAY CHEST REASON FOR EXAM: Female, 32 years old. Line placement. TECHNIQUE: AP portable chest. COMPARISON: July 17, 2017. FINDINGS: Endotracheal tube tip 3 cm above the sidney. Nasogastric tube tip below left hemidiaphragm. Right internal jugular central line with the tip in the right atrium. Retract central line 5 cm if placement at the junction of the superior vena cava and right atrium is desired. The lungs are clear and expanded. There is no demonstrated pleural abnormality. Normal size heart. Normal mediastinum and man. Normal visualized pulmonary arteries. Normal visualized aortic arch and descending thoracic aorta. Normal visualized thoracic spine. Normal visualized ribs, clavicles, and shoulders. There is no demonstrated abnormality of the visualized soft tissue structures of the upper abdomen. RAD/CXR for Line Placement IMPRESSION: No acute cardiopulmonary disease. Right internal jugular central line tip in the right atrium as above. No pneumothorax. Electronically Signed: Aki Humphries MD at 0:11 EDT , Service support ,
--- NOTE | 2017-07-18 23:25 | PCM.OP.BLANK ---
Problem List (1) Poor intravenous access Status: Acute Operative Report Date of Procedure: 07/18/17 Right IJ triple-lumen central venous catheter insertion Informed consent was taken clinician of risk and benefit. Under aseptic precaution, right neck and subclavian region was raised and draped. Under ultrasound guidance, right IJ was accessed. With the help of guidewire, triple lumen catheter was inserted. TLC was secured. No hematoma or bleeding. Chest x-ray ordered. Chest x-ray reviewed. Tip of the TLC probably in right atrium Code Visit Procedures: [id number] Insert Non-tunnel CV Cath
--- NOTE | 2017-07-18 23:28 | OP.PCM_ITS ---
Problem List (1) Poor intravenous access Status: Acute Operative Report Date of Procedure: 07/18/17 Right IJ triple-lumen central venous catheter insertion Informed consent was taken clinician of risk and benefit. Under aseptic precaution, right neck and subclavian region was raised and draped. Under ultrasound guidance, right IJ was accessed. With the help of guidewire, triple lumen catheter was inserted. TLC was secured. No hematoma or bleeding. Chest x-ray ordered. Chest x-ray reviewed. Tip of the TLC probably in right atrium Code Visit Procedures: [id number] Insert Non-tunnel CV Cath
[2017-07-18 23:41] LABS: Bedside Glucose 104 mg/dL (70-110)
[2017-07-19] VITALS (32 sets, daily range): BP systolic 86–143; BP diastolic 33–86; PULSE 73–100; RESP 14–30; TEMP 36.5–37.9; O2SAT 92–100
--- NOTE | 2017-07-19 | NURSING ---
Dr. Munson at bedside to withdraw central line 4 cm for correct placement.
--- NOTE | 2017-07-19 00:30 | RAD_ITS ---
STUDY: X-RAY CHEST REASON FOR EXAM: Female, 32 years old. Line placement after repositioning central line. TECHNIQUE: AP portable chest. COMPARISON: July 18, 2017. FINDINGS: Right internal jugular central line has been retracted and the tip is now at the junction of the superior vena cava and right atrium. No pneumothorax. Endotracheal tube and nasogastric tubes in stable position in their expected locations. The lungs are clear and expanded. There is no demonstrated pleural abnormality. Normal size heart. Normal mediastinum and man. Normal visualized pulmonary arteries. Normal visualized aortic arch and descending thoracic aorta. Normal visualized thoracic spine. Normal visualized ribs, clavicles, and shoulders. There is no demonstrated abnormality of the visualized soft tissue structures of the upper abdomen. RAD/CXR for Line Placement IMPRESSION: Right internal jugular central line tip is now at junction of superior vena cava and right atrium. No pneumothorax. No acute cardiopulmonary disease. Electronically Signed: Aki Humphries MD at 1:01 EDT , Service support ,
[2017-07-19] MEDS: Piperacil/Tazobactam 3.375 GM/50 ML ML IV ×4 (00:36→23:04)
[2017-07-19] MEDS: Ipratropium/Albuterol Sulfate 3 ML AMPUL.NEB INHALATION ×4 (00:41→18:56)
[2017-07-19] MEDS: CHLORHEXIDINE GLUC 2% CLOTH 1 EACH TOWELETTE TOPICAL (03:28)
[2017-07-19 05:35] LABS: Bedside Glucose 100 mg/dL (70-110)
--- NOTE | 2017-07-19 07:04 | PCM.PN.INT ---
Subjective: The patient was seen and examined at the bedside this morning. Events from the last 24 hours have been reviewed. The patient currently has a low-grade fever, but remains hemodynamically stable. Ventilator requirements are minimal. She passed her spontaneous breathing trial and is following commands appropriately. Patient is currently overall net +1.1 L for the admission. Preliminary blood cultures on 1 out of 2 bottles dated July 16 was positive for gram-positive cocci. Vancomycin was started. Overnight, the patient reportedly lost peripheral IV access, which necessitated the placement of an IJ central venous catheter. Objective: The patient's most recent lab work, culture data and imaging studies have all been personally reviewed. Sputum Gram stain revealed 3+ gram-positive cocci. Initial blood culture revealed gram-positive cocci. Urine culture has shown no growth to date. Repeat blood cultures are currently pending. General: Alert, Cooperative, - - Remains intubated and mechanically ventilated. Currently tolerating CPAP mode mechanical ventilation without issue. HEENT: Atraumatic, PERRLA, Normocephalic Oral: No Gingival or Mucosal Lesions/ Ulcerations, - - Endotracheal and NG tube remain in place Neck: Supple, No Nodes, Trachea Midline, - - Right IJ central venous catheter in place Lungs: No rhonchi, No wheeze, No rales, Diminished Cardiovascular: Regular rate, Regular Rhythm, Normal S1, Normal S2, No murmurs Abdomen: Bowel Sounds Present, Soft, Non Tender, Non-Distended, Obese Extremities: No clubbing, No cyanosis, No edema Skin: - - No significant change from previous. Musculoskeletal: No Muscle Wasting Lymphatic: No Cervical, Supraclavicular, or Inguinal Adenopathy Neurological: Neuro grossly intact, - - Moves extremities spontaneously. Follows commands appropriately. Vital Signs Temp Pulse Resp BP Pulse Ox 99.4 F H 86 20 H 122/50 H 95 07/19/17 06:00 07/19/17 06:00 07/19/17 06:00 07/19/17 06:00 07/19/17 06:00 Oxygen Delivery Method Mechanical Ventilator Weight: 259 lb 7.745 oz Body Mass Index (BMI) 43.8 Intake and Output for Last 24 Hours 07/17/17 07/18/17 07/19/17 23:59 23:59 23:59 Intake Total 4489 / 4489 1042 / 1042 1468.4 / 1468.4 Output Total 4825 / 4825 675 / 675 400 / 400 Balance -336 / -336 367 / 367 1068.4 / 1068.4 Labs (Last 48 Hours) 07/17/17 07/17/17 07/17/17 08:58 17:19 22:57 WBC RBC Hgb Hct MCV MCH MCHC RDW RDW Differential Plt Count MPV Immature Gran % (Auto) Neut % (Auto) Lymph % (Auto) [place] % (Auto) Eos % (Auto) Baso % (Auto) Absolute Neuts (auto) Absolute Lymphs (auto) Total Counted Specimen Type ART Sample Site R Brachial pH 7.45 Bicarbonate Actual 23.7 POC Total CO2 25 Base Excess 0 O2 Saturation 98 O2 % 30 ABG pCO2 34.3 L ABG pO2 100 Carlo Test POS Respiration Rate 14 O2 Delivery Device Vent Minute Volume 7.00 Vent Mode A-C Tidal Volume 450 POC PEEP 5 Blood Gas Notified Whom ICU MD Blood Gas Notified Time 855 Sodium Potassium Chloride Carbon Dioxide Anion Gap BUN Creatinine Estim Creat Clear Calc Est GFR (MDRD) Af Amer Est GFR (MDRD) Non-Af BUN/Creatinine Ratio Glucose Calcium POC Glucose 115 H 108 07/18/17 07/18/17 07/18/17 04:30 04:30 05:54 WBC 9.8 RBC 4.29 Hgb 11.6 L Hct 37.5 MCV 87.4 MCH 27.0 MCHC 30.9 L RDW 13.8 RDW Differential 43.6 Plt Count 186 MPV 11.8 Immature Gran % (Auto) 0.100 Neut % (Auto) 72.4 H Lymph % (Auto) 16.[address] % (Auto) 10.2 H Eos % (Auto) 1.0 Baso % (Auto) 0.1 Absolute Neuts (auto) 7.1 Absolute Lymphs (auto) 1.58 Total Counted Not Reportable Specimen Type Sample Site pH Bicarbonate Actual POC Total CO2 Base Excess O2 Saturation O2 % ABG pCO2 ABG pO2 Carlo Test Respiration Rate O2 Delivery Device Minute Volume Vent Mode Tidal Volume POC PEEP Blood Gas Notified Whom Blood Gas Notified Time Sodium 142 Potassium 3.7 Chloride 107 Carbon Dioxide 29.0 Anion Gap 6 BUN 9 Creatinine 0.93 Estim Creat Clear Calc 77.42 Est GFR (MDRD) Af Amer 89 Est GFR (MDRD) Non-Af 74 BUN/Creatinine Ratio 9.7 L Glucose 107 H Calcium 8.3 L POC Glucose 100 07/18/17 07/18/17 07/18/17 11:40 17:13 23:32 WBC RBC Hgb Hct MCV MCH MCHC RDW RDW Differential Plt Count MPV Immature Gran % (Auto) Neut % (Auto) Lymph % (Auto) [place] % (Auto) Eos % (Auto) Baso % (Auto) Absolute Neuts (auto) Absolute Lymphs (auto) Total Counted Specimen Type Sample Site pH Bicarbonate Actual POC Total CO2 Base Excess O2 Saturation O2 % ABG pCO2 ABG pO2 Carlo Test Respiration Rate O2 Delivery Device Minute Volume Vent Mode Tidal Volume POC PEEP Blood Gas Notified Whom Blood Gas Notified Time Sodium Potassium Chloride Carbon Dioxide Anion Gap BUN Creatinine Estim Creat Clear Calc Est GFR (MDRD) Af Amer Est GFR (MDRD) Non-Af BUN/Creatinine Ratio Glucose Calcium POC Glucose 103 103 104 07/19/17 05:25 WBC RBC Hgb Hct MCV MCH MCHC RDW RDW Differential Plt Count MPV Immature Gran % (Auto) Neut % (Auto) Lymph % (Auto) [place] % (Auto) Eos % (Auto) Baso % (Auto) Absolute Neuts (auto) Absolute Lymphs (auto) Total Counted Specimen Type Sample Site pH Bicarbonate Actual POC Total CO2 Base Excess O2 Saturation O2 % ABG pCO2 ABG pO2 Carlo Test Respiration Rate O2 Delivery Device Minute Volume Vent Mode Tidal Volume POC PEEP Blood Gas Notified Whom Blood Gas Notified Time Sodium Potassium Chloride Carbon Dioxide Anion Gap BUN Creatinine Estim Creat Clear Calc Est GFR (MDRD) Af Amer Est GFR (MDRD) Non-Af BUN/Creatinine Ratio Glucose Calcium POC Glucose 100 Microbiology 07/16/17 19:03 Sputum, Induced/Lukens Gram Stain - Final 07/16/17 19:03 Sputum, Induced/Lukens Respiratory Culture - Preliminary Clinical Impression(s) from Imaging Studies Chest X-Ray 07/16/17 13:58 IMPRESSION: The endotracheal tube terminates about 3.7 cm above the sidney. The gastric tube extends adequately into the upper abdomen. There is mild edema, and there are small to moderate pleural effusions bilaterally. There is likely compressive atelectasis in both lung bases. Electronically Signed: Patricia Brar MD at 16:18 EDT Tel Direct: [phone], Service support , Chest X-Ray 07/17/17 05:55 IMPRESSION: Significantly improved aeration since the prior exam. No focal right pleural effusions. Electronically Signed: Aki Humphries MD at 7:28 EDT , Service support , Chest X-Ray 07/18/17 23:20 IMPRESSION: No acute cardiopulmonary disease. Right internal jugular central line tip in the right atrium as above. No pneumothorax. Electronically Signed: Aki Humphries MD at 0:11 EDT , Service support , Chest X-Ray 07/19/17 00:30 IMPRESSION: Right internal jugular central line tip is now at junction of superior vena cava and right atrium. No pneumothorax. No acute cardiopulmonary disease. Electronically Signed: Aki Humphries MD at 1:01 EDT , Service support , Medical Necessity - Tobacco Use Smoking Status: Current every day smoker Tobacco Use: Cigarettes Assessment/Plan Active and Suspected Problems LULY (acute kidney injury) (Acute) Poor intravenous access (Acute) RECOMMENDATIONS: 1. Continue Keppra as ordered, along with as needed Ativan and seizure precautions. 2. Continue antibiotics, pending finalized culture results. 3. Okay to proceed with a trial of extubation. 4. Once extubated, wean supplemental oxygen to maintain saturations at or above 90% 5. Perform bedside swallow evaluation and advance diet accordingly. 6. Discontinue Pepcid. Continue Lovenox for DVT prophylaxis 7. Encourage incentive spirometer use and mobilize patient as tolerated. IMPRESSIONS: 1. Acute respiratory failure with concern for aspiration pneumonitis/pneumonia The patient was electively intubated in the emergency department for airway protection upon presentation. She had a known aspiration pneumonia during her previous admission. Although her plain film chest imaging is largely unrevealing, agree with continuing antibiotics until culture results have finalized. Although the patient's initial sputum culture revealed normal respiratory reta, her secretion production is tenacious in nature. Therefore, a repeat sputum culture was sent. The patient is currently appropriate for a trial of extubation this morning. Once extubated, supplemental oxygen can be weaned and bedside swallow evaluation completed. Encourage incentive spirometer use and mobilize patient as tolerated. Strongly suspect that the patient's blood cultures that were found to be positive for the consequence of contamination. Repeat blood cultures will be sent today. 2. Personal history of epilepsy with breakthrough seizure activity secondary to suspected medication noncompliance Continue Keppra as ordered, along with as needed Ativan and seizure precautions. 3. Acute kidney injury Resolved. Likely prerenal in etiology. The patient's creatinine has stabilized and urine output remains appropriate. No indication for renal replacement therapy at this time. TIME: 35 minutes of critical care time, independent of procedures, was spent addressing the patient's acute respiratory failure, history of epilepsy with breakthrough seizure activity secondary to noncompliance, acute kidney injury, review of all data and collaboration with the care team. ([id number]) Code Visit 9xxxx: [id number] Critical care first hour
--- NOTE | 2017-07-19 08:08 | PCM.RX.CS ---
Consult Pharmacy has been consulted to manage selected antiobiotic: Vancomycin Type of Consult: New start Suspected Infection: Bacteremia Labs: Sodium 142 mmol/L (136-145) 07/18/17 04:30 Potassium 3.7 mmol/L (3.5-5.1) 07/18/17 04:30 Chloride 107 mmol/L (98-107) 07/18/17 04:30 Carbon Dioxide 29.0 mmol/L (21.0-32.0) 07/18/17 04:30 Anion Gap 6 (5-15) 07/18/17 04:30 BUN 9 mg/dL (7-18) 07/18/17 04:30 Creatinine 0.93 mg/dL (0.55-1.02) 07/18/17 04:30 Est GFR (MDRD) Af Amer 89 mL/min (>60) 07/18/17 04:30 Est GFR (MDRD) Non-Af 74 mL/min (>60) 07/18/17 04:30 BUN/Creatinine Ratio 9.7 RATIO (10-20) L 07/18/17 04:30 Glucose 107 mg/dL (74-106) H 07/18/17 04:30 Microbiology: Microbiology 07/16/17 19:03 Sputum, Induced/Lukens Gram Stain - Final 07/16/17 19:03 Sputum, Induced/Lukens Respiratory Culture - Preliminary Weight used for dosin kg Estimated Creatinine Clearance: 77 mL/min Goal Trough: 15-20 mcg/mL Pharmacy Plan for Drug Dosing: Vancomycin 1750mg IV q12h started. Trough prior to 4th dose. Pharmacy Service will continue to monitor and adjust dosing as required. Follow-Up Labs: Trough Vancomycin - 07/20/17 @ 0900
--- NOTE | 2017-07-19 09:54 | PCM.PROGNOTE ---
Patient Problems: Active and Suspected Problems LULY (acute kidney injury) (Acute) Poor intravenous access (Acute) Subjective: All events of the past 24 hours have been reviewed. Antibiotic Day #4 Ventilator Day # extubated today TMAX: 100.2?F, core Vital signs: stable Fluid balance: +1129 since admission. Urine output: 675 cc on 07/18/2017 and 400 cc overnight. Weight: 259 and 7.7 ounces All radiologic testing was reviewed: X-ray today shows no infiltrates, pleural effusions or pulmonary vascular congestion. All labs were personally reviewed: Microbiology: 1 of 2 blood cultures has gram-positive cocci. Telemetry: NSR with non significant ectopy Subjective: No SOB. No nausea. Not coughing. Objective: PHYSICAL EXAM: GENERAL: alert, oriented X 3, Cooperative, NAD, very pleasant ORAL: moist mucosa, no mucosal lesions NECK: No JVD, supple, trachea midline LUNGS: CTA, symmetric chest expansion, diminished HEART: RRR, Normal S1 and S2, no rub, no gallop, no MM ABDOMEN: soft, NT, ND, BS present, no guarding with palpation EXTREMITIES: no edema, no cyanosis, no calf tenderness SKIN: No rashes, no breakdown NEUROLOGIC: no focal neurologic deficits PSYCH: appropriate, normal affect, pleasant....tells me that she has problems with memory. Her manages her meds but , they have 4 children and he forgets sometimes. She is on Disability and he stays home to care for the children. She did finish high school and she can read. - Physical Exam Vital Signs Temp Pulse Resp BP Pulse Ox 99.4 F H 86 20 H 122/50 H 95 07/19/17 06:00 07/19/17 06:00 07/19/17 06:00 07/19/17 06:00 07/19/17 06:00 Oxygen Delivery Method Mechanical Ventilator Weight: 259 lb 7.745 oz Body Mass Index (BMI) 43.8 Intake and Output for Last 24 Hours 07/17/17 07/18/17 07/19/17 23:59 23:59 23:59 Intake Total 4489 / 4489 1042 / 1042 1468.4 / 1468.4 Output Total 4825 / 4825 675 / 675 400 / 400 Balance -336 / -336 367 / 367 1068.4 / 1068.4 Microbiology Past 72 Hours 07/16/17 19:03 Gram Stain - Final Sputum, Induced/Lukens Respiratory Culture - Final Presumptive C albicans Mixed Reta POC Glucose 07/19/17 07/18/17 07/18/17 05:25 23:32 17:13 POC Glucose 100 104 103 07/18/17 11:40 POC Glucose 103 Medical Necessity - Tobacco Use Smoking Status: Current every day smoker Tobacco Use: Cigarettes Assessment/Plan Active and Suspected Problems LULY (acute kidney injury) (Acute) Poor intravenous access (Acute) Impressions 1. Status epilepticus-secondary to noncompliance with antiepileptic medications despite being provided with medication prescriptions at her last discharge on 06/23/2017. This is her fourth admission to the hospital in less than 1 year for seizures secondary to noncompliance. 2. Suspected aspiration pneumonia -sputum culture with [place] albicans and mixed reta. 3. Morbid obesity 4. Hypertension 5. Seizure disorder 6. Depression 7. Illicit drug use-cannabis 8. metabolic acidosis due to status epilepticus 9. LULY - due to dehydration 10. recent aspiration PNA due to MSSA 11. 1 of 2 blood cultures positive for gram-positive cocci Met with the patient and the SW and will refer to the [facility] to help with medication compliance Transfer to PCU this afternoon if she remains stable off the vent Repeat Blood cultures today. Convert medications to NPO Recheck the lab in the AM continue Vanco and Zosyn for now - no infiltrates on the CXR and lungs are clear.....but, + BC for GM + cocci Code Visit Inpatient E&M: 19048 Subs Hosp L3
--- NOTE | 2017-07-19 10:01 | CASEMGMT ---
Addendum entered by Annabelle Ovalle 07/19/17 10:41: SW did write down the information regarding [facility] that explains Timo from [facility] will call pt next week. SW also wrote down for pt to set an alarm on her cell phone to remind her to take her meds. SW reviewed the paper w/the pt and left it in the room for her. Annabelle Ovalle, LESLIE-S, MEDICAL DETAILIST Original Note: Dr. Olivier and SW spoke w/pt regarding taking her medications properly. Pt does state she has memory problems, states her helps her take her medications when he remembers. Pt does not know how she ran out of medication. She states their income is her Social Security, does not work. She states she did graduate high school and can read. SW and physician spoke w/pt on how to help her to remember to take her medication. Pt states she gets the meds from [facility], they come prepackaged for each day. SW pointed out to pt that this is not helping her to remember to take the meds. We spoke about setting an alarm on her cell phone, pt states she never thought of this before. We also spoke about making a referral to [facility], pt is open to this. SW then spoke w/pt about her depression. Pt denies being suicidal. Pt is on antidepressants, but does not think they are helping enough. We discussed counseling. Initially pt states she does not want to talk to anyone but her , but upon further discussion, pt states is open to both speaking w/the SW from [facility] and to speaking w/someone from [facility]. Pt states she does not have transportation, SW explained that if she is interested in the program, they may be able to set up transportation. Pt does have four boys, ages 11, 9, and 5 year old twins, and they have a roommate right now as well. SW explained will make referral for [facility] and [facility] for pt. ZORAIDA called Catrachito from [facility], he will be over later today to speak w/pt about the program. ZORAIDA called Timo w/[facility]. Pt did decline the referral after the last admission. ZORAIDA explained to Timo that pt needs assist w/setting up her meds. She states they do have alarming pill boxes that they could use for this pt. ZORAIDA explained will also be putting in referral for SW to see pt, to follow up regarding pt's mental health, and did explain also a referral was made to [facility]. Timo states she will follow up w/pt again at discharge, will call her next week to set up an initial appointment. SW will let pt know that [facility] will follow up w/her next week. CAMILO Hartmann, MEDICAL DETAILIST
--- NOTE | 2017-07-19 10:11 | NURSING ---
pt is unable to remember is she has had any vaccinations. She is also unable to remember what cares for her and/or prescribes meds for her
[2017-07-19] MEDS: amLODIPine 10 MG Tablet PO (10:34)
[2017-07-19] MEDS: Polyethylene Glycol 3350 17 GM PACKET GT (10:34)
[2017-07-19] MEDS: Famotidine 20 MG Tablet GT (10:34)
[2017-07-19] MEDS: Enoxaparin 40 MG/0.4 ML Syringe SC (10:34)
[2017-07-19] MEDS: 0.9% NaCl IVPB Med Flush (250 mL) 15 ML IV (10:38)
--- NOTE | 2017-07-19 12:10 | BH.NOTE ---
BH: Inpatient Note - Notes Behavioral Health Inpatient Note: 07/19/17 12:10 Referral to [facility] from social work due to depressive symptoms. Met with pt in her room. Affect and mood are appropriate. Pleasant and cooperative. Smiling and joking at times. Denies any suicidal ideations, plan, or intent. Reports depressive episodes on a consistent basis stating I'm sad all the time. Unable to identify any triggers to sadness. Denies any overwhelming conflicts with or children. Currently lives with , 4 kids (ages 5-11), and a roomate. Also reports worry and anxiety however again unable to identify any triggers. Noncompliant with medications. Pt is agreeable with counseling however biggest obstacle is transportation and her and rely on her father for rides. Was given referrals to [facility] which has transportation for counseling services. Spoke with ZORAIDA who is arranging services with [facility] to assist with medication compliance, which will be very helpful.
--- NOTE | 2017-07-19 13:25 | SLEEP ---
Sleep disorder breathing eval was ordered on pt, pt has had three negative PSGs since 2016, last one being Feb 2016 with no weight changes. Talk to pts nurse on ICU and she will relay onto Dr. Olivier however nurse believes the only reason why referral was made was d/t patients size. No significant changes in weight since last study was performed.
[2017-07-19] MEDS: Polyethylene Glycol 3350 17 GM PACKET PO (21:05)
[2017-07-20] VITALS (15 sets, daily range): BP systolic 101–143; BP diastolic 30–70; PULSE 64–85; RESP 16–25; TEMP 36.4–36.7; O2SAT 91–100
[2017-07-20 04:34] LABS: Absolute Lymphocyte Count 1.67 X10^3/ul (0.83-4.51); Absolute Neutrophil Count 4.8 X10^3/uL (2.0-7.7); Basophil# 0.03 X10^3/uL; Basophil% 0.4 % (0-1); Eosinophil# 0.64 X10^3/uL; Eosinophils% 8.2 % (0-5); Hematocrit 32.7 % (37-47); Hemoglobin 10.1 g/dl (12.0-15.0); Lymphocyte # 1.67 X10^3/ul (4.0); Lymphocyte % 21.4 % (19-41); Mean Corp Hgb Conc 30.9 g/gl (32-36); Mean Corpuscular Hgb 27.4 pg (27.0-32.0); Mean Corpuscular Volume 88.9 fL (81-99); Mean Platelet Vol. 12.4 fl (6.2-12.0); Monocyte# 0.71 X10^3/uL; Monocyte% 9.1 % (0-10); Neutrophil # 4.75 X10^3/uL (2.7-7.7); Neutrophil % 60.8 % (47-70); POSITIVE COUNT NO; POSITIVE DIFFERENTIAL NO; POSITIVE MORPHOLOGY NO; Platelet Count 158 K/mm3 (150-450); RBC Distribution Width CV 13.7 % (11.6-14.6); RBC Distribution Width SD 43.4 fl (35.1-43.9); Red Blood Count 3.68 M/mm3 (4.2-5.4); White Blood Count 7.8 K/mm3 (4.4-11.0)
[2017-07-20 04:46] LABS: Anion Gap 8 (5-15); BUN 10 mg/dL (7-18); BUN/Creat Ratio 11.5 RATIO (10-20); Calcium,Total 8.3 mg/dL (8.5-10.1); Chloride 111 mmol/L (98-107); Creatinine, Serum 0.87 mg/dL (0.55-1.02); EST Glomerular Filtration Rate 80 mL/min (>60); Est Glom Filt Rate - Afr Amer 97 mL/min (>60); Estimated Creatinine Clearance 82.76 ml/min; Glucose 83 mg/dL (74-106); Phosphorus 3.7 mg/dL (2.5-4.9); Potassium 3.7 mmol/L (3.5-5.1); Sodium Level 145 mmol/L (136-145)
[2017-07-20] MEDS: Piperacil/Tazobactam 3.375 GM/50 ML ML IV (05:56)
--- NOTE | 2017-07-20 06:44 | PCM.PN.INT ---
Subjective: The patient was seen and examined at the bedside this morning. Events from the last 24 hours have been reviewed. The patient is currently afebrile, hemodynamically stable and maintaining appropriate oxygen saturations on room air. No overnight events were noted by the nursing staff. The patient was evaluated by [facility] yesterday and admitted to medication noncompliance. The patient is without significant complaints this morning. Objective: The patient's most recent lab work, culture data and imaging studies have all been personally reviewed. Sputum cultures ?2 have shown no growth to date. Blood culture ?1 dated July 16 was positive for gram-positive cocci, likely contaminant. Repeat blood cultures have shown no growth to date. Urine culture has shown no growth to date. General: Alert, Cooperative, No apparent distress HEENT: Atraumatic, PERRLA, Normocephalic Oral: No Gingival or Mucosal Lesions/ Ulcerations Neck: Supple, No Nodes, Trachea Midline Lungs: No rhonchi, No wheeze, No rales, Diminished Cardiovascular: Regular rate, Regular Rhythm, Normal S1, Normal S2, No murmurs Abdomen: Bowel Sounds Present, Soft, Non Tender, Obese Extremities: No clubbing, No cyanosis, No edema Skin: - - No significant change from previous. Musculoskeletal: No Tenderness to Palpation of Joints or Extremities, No Muscle Wasting Lymphatic: No Cervical, Supraclavicular, or Inguinal Adenopathy Neurological: Neuro grossly intact Psych/Mental Status: Normal Affect, Appropriate Vital Signs Temp Pulse Resp BP Pulse Ox 98.0 F 76 25 H 112/55 L 94 07/20/17 04:00 07/20/17 06:00 07/20/17 06:00 07/20/17 06:00 07/20/17 06:00 Oxygen Flow Rate (L/min) 2 Oxygen Delivery Method Room Air Weight: 260 lb 9.382 oz Body Mass Index (BMI) 43.8 Intake and Output for Last 24 Hours 07/18/17 07/19/17 07/20/17 23:59 23:59 23:59 Intake Total 1042 / 1042 3470.4 / 3470.4 Output Total 675 / 675 600 / 600 Balance 367 / 367 2870.4 / 2870.4 Labs (Last 48 Hours) 07/18/17 07/18/17 07/18/17 11:40 17:13 23:32 WBC RBC Hgb Hct MCV MCH MCHC RDW RDW Differential Plt Count MPV Immature Gran % (Auto) Neut % (Auto) Lymph % (Auto) [place] % (Auto) Eos % (Auto) Baso % (Auto) Absolute Neuts (auto) Absolute Lymphs (auto) Total Counted Sodium Potassium Chloride Carbon Dioxide Anion Gap BUN Creatinine Estim Creat Clear Calc Est GFR (MDRD) Af Amer Est GFR (MDRD) Non-Af BUN/Creatinine Ratio Glucose Calcium Phosphorus Magnesium POC Glucose 103 103 104 07/19/17 07/20/17 07/20/17 05:25 04:00 04:00 WBC 7.8 RBC 3.68 L Hgb 10.1 L Hct 32.7 L MCV 88.9 MCH 27.4 MCHC 30.9 L RDW 13.7 RDW Differential 43.4 Plt Count 158 MPV 12.4 H Immature Gran % (Auto) 0.100 Neut % (Auto) 60.8 Lymph % (Auto) 21.4 [place] % (Auto) 9.1 Eos % (Auto) 8.2 H Baso % (Auto) 0.4 Absolute Neuts (auto) 4.8 Absolute Lymphs (auto) 1.67 Total Counted Not Reportable Sodium 145 Potassium 3.7 Chloride 111 H Carbon Dioxide 26.0 Anion Gap 8 BUN 10 Creatinine 0.87 Estim Creat Clear Calc 82.76 Est GFR (MDRD) Af Amer 97 Est GFR (MDRD) Non-Af 80 BUN/Creatinine Ratio 11.5 Glucose 83 Calcium 8.3 L Phosphorus 3.7 Magnesium 2.0 POC Glucose 100 Microbiology 07/18/17 09:20 Sputum, Induced/Lukens Gram Stain - Final 07/18/17 09:20 Sputum, Induced/Lukens Respiratory Culture - Preliminary Culture exhibits no growth. 07/16/17 19:03 Sputum, Induced/Lukens Gram Stain - Final 07/16/17 19:03 Sputum, Induced/Lukens Respiratory Culture - Final Presumptive C albicans Mixed Jerri Clinical Impression(s) from Imaging Studies Chest X-Ray 07/16/17 13:58 IMPRESSION: The endotracheal tube terminates about 3.7 cm above the sidney. The gastric tube extends adequately into the upper abdomen. There is mild edema, and there are small to moderate pleural effusions bilaterally. There is likely compressive atelectasis in both lung bases. Electronically Signed: Patricia Brar MD at 16:18 EDT Tel Direct: [phone], Service support , Chest X-Ray 07/17/17 05:55 IMPRESSION: Significantly improved aeration since the prior exam. No focal right pleural effusions. Electronically Signed: Aki Humphries MD at 7:28 EDT , Service support , Chest X-Ray 07/18/17 23:20 IMPRESSION: No acute cardiopulmonary disease. Right internal jugular central line tip in the right atrium as above. No pneumothorax. Electronically Signed: Aki Humphries MD at 0:11 EDT , Service support , Chest X-Ray 07/19/17 00:30 IMPRESSION: Right internal jugular central line tip is now at junction of superior vena cava and right atrium. No pneumothorax. No acute cardiopulmonary disease. Electronically Signed: Aki Humphries MD at 1:01 EDT , Service support , Medical Necessity - Tobacco Use Smoking Status: Current every day smoker Tobacco Use: Cigarettes Assessment/Plan Active and Suspected Problems Metabolic acidosis (Acute) Aspiration pneumonia (Acute) LULY (acute kidney injury) (Acute) Poor intravenous access (Acute) RECOMMENDATIONS: 1. Continue Keppra as ordered, along with as needed Ativan and seizure precautions. 2. Continue antibiotics. 3. Continue Lovenox for DVT prophylaxis 4. Encourage incentive spirometer use and mobilize patient as tolerated. IMPRESSIONS: 1. Acute respiratory failure with concern for aspiration pneumonitis/pneumonia The patient was electively intubated in the emergency department for airway protection upon presentation. She had a known aspiration pneumonia during her previous admission. Although her plain film chest imaging is largely unrevealing, agree with continuing antibiotics until blood culture results have finalized. The patient is currently maintaining appropriate oxygen saturations on room air. Encourage incentive spirometer use and mobilize patient as tolerated. 2. Personal history of epilepsy with breakthrough seizure activity secondary to suspected medication noncompliance Continue Keppra as ordered, along with as needed Ativan and seizure precautions. 3. Acute kidney injury Resolved. Likely prerenal in etiology. The patient's creatinine has stabilized and urine output remains appropriate. No indication for renal replacement therapy at this time. This note was generated with [employer] dictation software. It may contain incorrect words, spelling, and punctuation that were not noted in checking the note before signing. DISPOSITION: The patient is medically stable for transfer out of the intensive care unit. Given the lack of ongoing ICU/pulmonary needs, will sign off. Please call with any additional questions. Code Visit Inpatient E&M: [id number] Subs Hosp L2
[2017-07-20] MEDS: Ipratropium/Albuterol Sulfate 3 ML AMPUL.NEB INHALATION ×2 (06:48→12:42)
--- NOTE | 2017-07-20 08:29 | PCM.PROGNOTE ---
Patient Problems: Active and Suspected Problems LULY (acute kidney injury) (Acute) Poor intravenous access (Acute) Subjective: All events of the past 24 hours have been reviewed. 82-year-old female admitted to the hospital with status epilepticus secondary to noncompliance with Keppra. She was intubated for 3 days and extubated on 07/19/2017. Chest x-ray was abnormal at admission and she had suspected aspiration pneumonia. He was initially started on vancomycin and Zosyn. Vancomycin was discontinued when the MRSA nasal swab was negative. She has a recent history of MSSA aspiration pneumonia in late May. She was discharged on Augmentin from that hospital admission. Sputum culture from this admission has normal respiratory reta. 1 of 2 BC's from admission is growing an anaerobe....no ID yet. Zosyn was discontinued today by Dr. Mckeon. She has had 4 days of Zosyn. She was still having low-grade fevers on 522 and 523. She has been afebrile since extubation. The T MAX of 07/19 was 100.2 core temp. White blood cell count today is 7.8 with a normal differential except for mildly increased eosinophils at 8.2. Hemoglobin is stable at 10.1 and platelets are normal. Electrolytes are unremarkable and the BUN is 10 with a creatinine of 0.87. Phosphorus and magnesium are normal. Follow-up chest x-rays have shown no infiltrates. Cough, no nausea/vomiting, denies abdominal pain, no painful urination. Her only complaint is she feels tired. Objective: PHYSICAL EXAM: GENERAL: alert, oriented X 3, Cooperative, NAD, sleepy ORAL: moist mucosa, no mucosal lesions NECK: No JVD, supple, trachea midline LUNGS: CTA, symmetric chest expansion HEART: RRR, Normal S1 and S2, no rub, no gallop, No MM ABDOMEN: soft, NT, ND, BS present, no guarding with palpation EXTREMITIES: no edema, no cyanosis, no calf tenderness SKIN: No rashes, no breakdown NEUROLOGIC: no focal neurologic deficits PSYCH: appropriate, normal affect, pleasant - Physical Exam Vital Signs Temp Pulse Resp BP Pulse Ox 97.5 F L 77 21 H 101/30 L 92 07/20/17 08:00 07/20/17 08:00 07/20/17 08:00 07/20/17 08:00 07/20/17 08:00 Oxygen Flow Rate (L/min) 2 Oxygen Delivery Method Room Air Weight: 260 lb 9.382 oz Body Mass Index (BMI) 43.8 Intake and Output for Last 24 Hours 07/18/17 07/19/17 07/20/17 23:59 23:59 23:59 Intake Total 1042 / 1042 3470.4 / 3470.4 81 / 81 Output Total 675 / 675 600 / 600 Balance 367 / 367 2870.4 / 2870.4 81 81 Microbiology Past 72 Hours 07/18/17 09:20 Gram Stain - Final Sputum, Induced/Lukens Respiratory Culture - Preliminary Culture exhibits no growth. 07/16/17 19:03 Gram Stain - Final Sputum, Induced/Lukens Respiratory Culture - Final Presumptive C albicans Mixed Reta Laboratory Tests Past 24 Hrs 07/20/17 07/20/17 04:00 04:00 WBC 7.8 RBC 3.68 L Hgb 10.1 L Hct 32.7 L MCV 88.9 MCH 27.4 MCHC 30.9 L RDW 13.7 RDW Differential 43.4 Plt Count 158 MPV 12.4 H Immature Gran % (Auto) 0.100 Neut % (Auto) 60.8 Lymph % (Auto) 21.4 [place] % (Auto) 9.1 Eos % (Auto) 8.2 H Baso % (Auto) 0.4 Absolute Neuts (auto) 4.8 Absolute Lymphs (auto) 1.67 Total Counted Not Reportable Sodium 145 Potassium 3.7 Chloride 111 H Carbon Dioxide 26.0 Anion Gap 8 BUN 10 Creatinine 0.87 Estim Creat Clear Calc 82.76 Est GFR (MDRD) Af Amer 97 Est GFR (MDRD) Non-Af 80 BUN/Creatinine Ratio 11.5 Glucose 83 Calcium 8.3 L Phosphorus 3.7 Magnesium 2.0 Medical Necessity - Tobacco Use Smoking Status: Current every day smoker Tobacco Use: Cigarettes Assessment/Plan Active and Suspected Problems LULY (acute kidney injury) (Acute) Poor intravenous access (Acute) Impressions 1. Status epilepticus-secondary to noncompliance with antiepileptic medications despite being provided with medication prescriptions at her last discharge on 06/23/2017. This is her fourth admission to the hospital in less than 1 year for seizures secondary to noncompliance. 2. Suspected aspiration pneumonia -sputum culture with [place] albicans and mixed reta. 3. Morbid obesity 4. Hypertension 5. Seizure disorder 6. Depression 7. Illicit drug use-cannabis 8. metabolic acidosis due to status epilepticus 9. LULY - due to dehydration 10. recent aspiration PNA due to MSSA 11. 1 of 2 blood cultures positive for gram-positive cocci - growing only on the anaerobic culture ECHO BC repeated yesterday - no growth so far Consult Dr. Villanueva Continue the Zosyn until she is seen by ID Code Visit Inpatient E&M: [id number] Subs Hosp L2
[2017-07-20] MEDS: Polyethylene Glycol 3350 17 GM PACKET PO (09:26)
[2017-07-20] MEDS: Famotidine 20 MG Tablet PO (09:27)
[2017-07-20] MEDS: Enoxaparin 40 MG/0.4 ML Syringe SC (09:27)
--- NOTE | 2017-07-20 10:57 | PCM.HP.ID ---
Problem List (1) Seizure disorder Status: Chronic Reason for Consult: (+) bcx Consulted by: Dr. Olivier History of Present Illness: The patient is a 32 year old F with h/o seizures, recent admission last month for the same, treated for aspiration and mssa pneumonia. Discharged on augmentin. No other infections since then until presented 07/16 with seizures from home. Lactate and wbc elevated, required admission and intubation. On vanc/zosyn. Feeling better, off vent, mild sputum production. No fevers. No joint pain. Full ROS performed and neg except as noted above. - Medical History Past Medical History (Chronic Problems): Chronic Problems Cannabis abuse (Chronic) Non compliance w medication regimen (Chronic) Seizure disorder (Chronic) HTN (hypertension) (Chronic) Tobacco use (Chronic) Depression (Chronic) Morbid obesity with BMI of 50.0-59.9, adult (Chronic) Allergies/Adverse Reactions: Allergies naproxen Allergy (Verified 06/20/17 16:19) Hives Home Medications: Ambulatory Orders Medication Instructions Recorded Amlodipine [Norvasc] 10 mg PO DAILY 09/17/16 Levetiracetam [Keppra] 1,000 mg PO BID #60 tab 06/23/17 levETIRAcetam tablet [Keppra 250 mg PO BID #60 tab 06/23/17 tablet] - Social History SMOKING STATUS:: Current every day smoker Vital Signs Temp Pulse Resp BP Pulse Ox 97.5 F L 74 23 H 111/38 L 97 07/20/17 09:00 07/20/17 09:00 07/20/17 09:00 07/20/17 09:00 07/20/17 09:00 Oxygen Flow Rate (L/min) 2 Oxygen Delivery Method Room Air Weight: 118.2 kg Body Mass Index (BMI) 43.8 Microbiology Past 72 Hours 07/18/17 09:20 Gram Stain - Final Sputum, Induced/Lukens Respiratory Culture - Final Culture exhibits no growth. 07/16/17 19:03 Gram Stain - Final Sputum, Induced/Lukens Respiratory Culture - Final Presumptive C albicans Mixed Jerri Laboratory Tests Past 24 Hrs 07/20/17 07/20/17 04:00 04:00 WBC 7.8 RBC 3.68 L Hgb 10.1 L Hct 32.7 L MCV 88.9 MCH 27.4 MCHC 30.9 L RDW 13.7 RDW Differential 43.4 Plt Count 158 MPV 12.4 H Immature Gran % (Auto) 0.100 Neut % (Auto) 60.8 Lymph % (Auto) 21.4 [place] % (Auto) 9.1 Eos % (Auto) 8.2 H Baso % (Auto) 0.4 Absolute Neuts (auto) 4.8 Absolute Lymphs (auto) 1.67 Total Counted Not Reportable Sodium 145 Potassium 3.7 Chloride 111 H Carbon Dioxide 26.0 Anion Gap 8 BUN 10 Creatinine 0.87 Estim Creat Clear Calc 82.76 Est GFR (MDRD) Af Amer 97 Est GFR (MDRD) Non-Af 80 BUN/Creatinine Ratio 11.5 Glucose 83 Calcium 8.3 L Phosphorus 3.7 Magnesium 2.0 - Other Studies Radiology: [] reviewed Other Studies: [] Route of nutrition/ use of supplements: [] Nutritional Intake: [] IV Site: [] Gaspar Catheter: [] - Physical Exam General: Alert, Oriented x3, Cooperative, No apparent distress HEENT: Atraumatic, PERRLA, EOMI Neck: Supple, No Nodes Lungs: Clear to auscultation, Normal air movement Cardiovascular: Regular rate, Regular Rhythm Abdomen: Soft, Non Tender, Non-Distended Extremities: No edema Skin: No rashes IV Site: Central Line, without redness Musculoskeletal: No Tenderness to Palpation of Joints or Extremities Neurological: Cranial nerves II-XII grossly intact - Assessment/Plan Antibiotics: [] Assessment/Plan: [] Active and Suspected Problems LULY (acute kidney injury) (Acute) Poor intravenous access (Acute) Narrow zosyn to augmentin for aspiration pneumonia. Single (+) bcx with anaerobe, consistent with contamination. Plan on 4 more days of augmentin at discharge. Thank you, will follow, d/w Dr. Olivier.
--- NOTE | 2017-07-20 13:16 | DCINST_ITS ---
- Discharge Diagnoses Current Active Problems: Current Active and Chronic Problems Cannabis abuse (Chronic) Non compliance w medication regimen (Chronic) LULY (acute kidney injury) (Acute) Seizure disorder (Chronic) Poor intravenous access (Acute) You will use the following diet at home:: No restrictions, Other - I recommend that you try and follow a [id number] calorie diet an try and lose some weight. Exercise helps and walking is a good exercise. Your food should be the consistency of: Regular Your liquids should be the consistency of: Regular/Thin Discharge Activity: Return to Normal Activity, May Not Drive Call your doctor if you observe: Fever of 101 or Higher, Shortness of breath, Dizziness, Fainting spells, Chest pain, Calf discomfort, - - cough, diarrhea, rash Instructions: MyPlate Worksheet: 1,600 Calories, MyPlate Worksheet: 1,800 Calories Additional Instructions: 1. IT is SO IMPORTANT to take the Keppra to prevent seizures Twice a day EVERY DAY. I know that this is hard when you have memory problems. We are going to have the [facility] program follow up with you at home. they have pill boxes that have an alarm on them so you do not forget to take the medications. Every time you have these prolonged seizures you are losing brain cells and we do not want to see this happen. 2. When you have prolonged seizures and need to get put on the breathing machine you aspirate.....this means you have some vomit and a lot of mouth secretions and you swallo them and they go down the wrong pipe and into the lungs rather than the stomach. You are going to go home with 4 additional days of antibiotic. You will take the antibiotic TWCIE a DAY WITH THE KEPPRA. Pending Tests on Discharge: final blood culture Allergies/Adverse Reactions: Allergies naproxen Allergy (Verified 06/20/17 16:19) Hives Medications to take at Discharge Amlodipine [Norvasc] 10 mg PO DAILY 09/17/16 Levetiracetam [Keppra] 1,000 mg PO BID #60 tab 06/23/17 levETIRAcetam tablet [Keppra tablet] 250 mg PO BID #60 tab 06/23/17 Amox/Clavulanate Tablet [Augmentin Tablet] 875 mg PO BID #8 tab 07/20/17 The following prescriptions were given: Amox/Clavulanate Tablet [Augmentin Tablet] 875 mg PO BID #8 tab Primary Care Physician: Ruba Carrillo DO [Primary Care Provider] - Please follow up with your Primary Care Physician in: 1 week
--- NOTE | 2017-07-20 13:17 | PCM.DC.SUM ---
Discharge Date and Diagnosis Date of Admission: 07/16/17 Date of Discharge: 07/20/17 - Primary Discharge Diagnosis Active and Suspected Problems Status epilepticus Metabolic acidosis (Acute) - due to prolonged seizures Aspiration pneumonia (Acute)-suspected LULY (acute kidney injury) (Acute)-resolved Poor intravenous access (Acute) - Secondary Discharge Diagnosis Chronic Problems Morbid obesity with BMI of 40.0-44.9, adult (Chronic) Cannabis use/abuse (Chronic) Non compliance w medication regimen (Chronic) Seizure disorder (Chronic) HTN (hypertension) (Chronic) Tobacco use (Chronic) Depression (Chronic) Hospital Course and Treatment Imaging Results: Clinical Impression(s) from Imaging Studies Chest X-Ray 07/16/17 13:58 IMPRESSION: The endotracheal tube terminates about 3.7 cm above the sidney. The gastric tube extends adequately into the upper abdomen. There is mild edema, and there are small to moderate pleural effusions bilaterally. There is likely compressive atelectasis in both lung bases. Electronically Signed: Patricia Brra MD at 16:18 EDT Tel Direct: [phone], Service support , Chest X-Ray 07/17/17 05:55 IMPRESSION: Significantly improved aeration since the prior exam. No focal right pleural effusions. Electronically Signed: Aki Humphries MD at 7:28 EDT , Service support , Chest X-Ray 07/18/17 23:20 IMPRESSION: No acute cardiopulmonary disease. Right internal jugular central line tip in the right atrium as above. No pneumothorax. Electronically Signed: Aki Humphries MD at 0:11 EDT , Service support , Chest X-Ray 07/19/17 00:30 IMPRESSION: Right internal jugular central line tip is now at junction of superior vena cava and right atrium. No pneumothorax. No acute cardiopulmonary disease. Electronically Signed: Aki Humphries MD at 1:01 EDT , Service support , Microbiology 07/18/17 09:20 Sputum, Induced/Lukens Gram Stain - Final 07/18/17 09:20 Sputum, Induced/Lukens Respiratory Culture - Final Culture exhibits no growth. 07/16/17 19:03 Sputum, Induced/Lukens Gram Stain - Final 07/16/17 19:03 Sputum, Induced/Lukens Respiratory Culture - Final Presumptive C albicans Mixed Jerri 07/16/17 15:30 Blood Culture (Wb) - Right Foot Blood Culture - Preliminary 07/16/17 15:20 Blood Culture (Wb) - Left Foot Blood Culture - Preliminary No growth in 48 hours. 07/16/17 14:20 Urine Catheter - Gaspar Urine Culture - Final Culture exhibits no growth. Laboratory Results - last 24 hr 07/20/17 07/20/17 04:00 04:00 WBC 7.8 RBC 3.68 L Hgb 10.1 L Hct 32.7 L MCV 88.9 MCH 27.4 MCHC 30.9 L RDW 13.7 RDW Differential 43.4 Plt Count 158 MPV 12.4 H Immature Gran % (Auto) 0.100 Neut % (Auto) 60.8 Lymph % (Auto) 21.4 Valencia % (Auto) 9.1 Eos % (Auto) 8.2 H Baso % (Auto) 0.4 Absolute Neuts (auto) 4.8 Absolute Lymphs (auto) 1.67 Total Counted Not Reportable Sodium 145 Potassium 3.7 Chloride 111 H Carbon Dioxide 26.0 Anion Gap 8 BUN 10 Creatinine 0.87 Estim Creat Clear Calc 82.76 Est GFR (MDRD) Af Amer 97 Est GFR (MDRD) Non-Af 80 BUN/Creatinine Ratio 11.5 Glucose 83 Calcium 8.3 L Phosphorus 3.[address] Saulo Mckeon-pulmonary medicine Dr. Buster Villanueva-infectious disease Operations: None Procedures: Central line placement, Intubation Summary of Care Provided: ] The patient is a 32 year old F with a past medical history of seizure disorder, noncompliance with medications, depression, hypertension and superobesity who was brought to the ED at [facility] on 07/16/2017 by EMS actively seizing. Apparently the told the squad she ran out of her medications however, she was given RX's for 1 month of meds at DC from the hospital on 06/23/17. She was given 5 mg of Versed in the squad with no change. She was given a total of 6 mg of Ativan in the emergency room prior to cessation of seizure activity. She was intubated to protect her airway. She had just recently been admitted to [facility] from 06/20/17 to 06/23/2017 for seizures due to non-compliance with medications. She was discharged on Augmentin for tx of Aspiration pneumonia due to MSSA. In between admissions to [facility] she was admitted to [facility] for seizures. Vital signs in the ED were temperature 98.9, pulse rate 80, blood pressure 130/100, respiratory rate 14 and she was 97% saturated on 30% FiO2/mechanical ventilation. Chest x-ray showed poor inspiratory effort with haziness in both lung bases. White Blood cell count was elevated at 18.3 with an unremarkable differential. Hemoglobin was 12.8 and platelets are within normal limits. PT was 15.5 and the PTT was normal. BMP showed a decreased serum bicarb of 20 with an increased anion gap of 20 secondary to status epilepticus. BUN was 9 with a creatinine of 1.45 and creatinine at discharge from the hospital on 06/23/2017 was 0.81. Lactic acid was elevated at 2.8 and this is most likely secondary to prolonged seizure activity. Troponin was less than 0.02 and the LFTs are unremarkable. Serum test was negative. Drug screen on her most recent admission was positive for cannabinoids. UA showed 0 WBCs per high-power field. She was admitted to the ICU and started on Zosyn and Vancomycin for suspected aspiration pneumonia. Keppra 1,250 mg IV Q12H was ordered. Dr. Mckeon was consulted. Follow up CXR's did not show PNA. Sputum culture exhibited no growth. 1 of 2 blood cultures grew Fingoldia Magna whic is an anaerobe. Dr. Villanueva was consulted and felt this was most likely a contaminant and recommended DC on Augmentin for 4 additional days of antibiotics in addition to the 5 days she had in the hospital. She had no seizures in the hospital on Keppra. The patient has had seizures since childhood and her memory is very poor. Her manages her medications but forgets to give them to her. Prior to discharge [facility] They have pillboxes with an alarm to remind patients to take her medications. We are hopeful this will be effective and negate the need for multiple admissions to the hospital for status epilepticus. She was discharged from the hospital on 07/20/2017 and given a prescription for Augmentin 875 mg, #8 tablets, 1 twice daily. She will resume Keppra 1250 mg twice daily and amlodipine 10 mg daily. She was instructed to follow-up with Dr. Peguero's in 1 week. GENERAL: alert, oriented X 3, Cooperative, NAD, sleepy ORAL: moist mucosa, no mucosal lesions NECK: No JVD, supple, trachea midline LUNGS: CTA, symmetric chest expansion HEART: RRR, Normal S1 and S2, no rub, no gallop, No MM ABDOMEN: soft, NT, ND, BS present, no guarding with palpation EXTREMITIES: no edema, no cyanosis, no calf tenderness SKIN: No rashes, no breakdown NEUROLOGIC: no focal neurologic deficits PSYCH: appropriate, normal affect, pleasant Discharge Activity: Return to Normal Activity, May Not Drive Call your doctor if you observe: Fever of 101 or Higher, Shortness of breath, Dizziness, Fainting spells, Chest pain, Calf discomfort, - - cough, diarrhea, rash Home Medications: Medications to take at Discharge Amlodipine [Norvasc] 10 mg PO DAILY 09/17/16 Levetiracetam [Keppra] 1,000 mg PO BID #60 tab 06/23/17 levETIRAcetam tablet [Keppra tablet] 250 mg PO BID #60 tab 06/23/17 Amox/Clavulanate Tablet [Augmentin Tablet] 875 mg PO BID #8 tab 07/20/17 Following Prescrptions Were Given to Patient: Amox/Clavulanate Tablet [Augmentin Tablet] 875 mg PO BID #8 tab Primary Care Physician: Ruba Carrillo DO [Primary Care Provider] - Please follow up with your Primary Care Physician in: 1 week Patient Instructions: MyPlate Worksheet: 1,600 Calories, MyPlate Worksheet: 1,800 Calories Disposition: Home Minutes spent on discharge:: 35 Patient Condition:: Good Medical Necessity - Tobacco Use Smoking Status: Current every day smoker Tobacco Use: Cigarettes Meaningful Use Info Meaningful Use Diagnoses (Choose all that apply): None applicable Code Visit Inpatient E&M: 55239 Disch Hosp
--- NOTE | 2017-07-20 13:20 | DS.PCM_ITS ---
Discharge Date and Diagnosis Date of Admission: 07/16/17 Date of Discharge: 07/20/17 - Primary Discharge Diagnosis Active and Suspected Problems Status epilepticus Metabolic acidosis (Acute) - due to prolonged seizures Aspiration pneumonia (Acute)-suspected LULY (acute kidney injury) (Acute)-resolved Poor intravenous access (Acute) - Secondary Discharge Diagnosis Chronic Problems Morbid obesity with BMI of 40.0-44.9, adult (Chronic) Cannabis use/abuse (Chronic) Non compliance w medication regimen (Chronic) Seizure disorder (Chronic) HTN (hypertension) (Chronic) Tobacco use (Chronic) Depression (Chronic) Hospital Course and Treatment Imaging Results: Clinical Impression(s) from Imaging Studies Chest X-Ray 07/16/17 13:58 IMPRESSION: The endotracheal tube terminates about 3.7 cm above the sidney. The gastric tube extends adequately into the upper abdomen. There is mild edema, and there are small to moderate pleural effusions bilaterally. There is likely compressive atelectasis in both lung bases. Electronically Signed: Patricia Brar MD at 16:18 EDT Tel Direct: [phone], Service support , Chest X-Ray 07/17/17 05:55 IMPRESSION: Significantly improved aeration since the prior exam. No focal right pleural effusions. Electronically Signed: Aki Humphries MD at 7:28 EDT , Service support , Chest X-Ray 07/18/17 23:20 IMPRESSION: No acute cardiopulmonary disease. Right internal jugular central line tip in the right atrium as above. No pneumothorax. Electronically Signed: Aki Humphries MD at 0:11 EDT , Service support , Chest X-Ray 07/19/17 00:30 IMPRESSION: Right internal jugular central line tip is now at junction of superior vena cava and right atrium. No pneumothorax. No acute cardiopulmonary disease. Electronically Signed: Aki Humphries MD at 1:01 EDT , Service support , Microbiology 07/18/17 09:20 Sputum, Induced/Lukens Gram Stain - Final 07/18/17 09:20 Sputum, Induced/Lukens Respiratory Culture - Final Culture exhibits no growth. 07/16/17 19:03 Sputum, Induced/Lukens Gram Stain - Final 07/16/17 19:03 Sputum, Induced/Lukens Respiratory Culture - Final Presumptive C albicans Mixed Jerri 07/16/17 15:30 Blood Culture (Wb) - Right Foot Blood Culture - Preliminary 07/16/17 15:20 Blood Culture (Wb) - Left Foot Blood Culture - Preliminary No growth in 48 hours. 07/16/17 14:20 Urine Catheter - Gaspar Urine Culture - Final Culture exhibits no growth. Laboratory Results - last 24 hr 07/20/17 07/20/17 04:00 04:00 WBC 7.8 RBC 3.68 L Hgb 10.1 L Hct 32.7 L MCV 88.9 MCH 27.4 MCHC 30.9 L RDW 13.7 RDW Differential 43.4 Plt Count 158 MPV 12.4 H Immature Gran % (Auto) 0.100 Neut % (Auto) 60.8 Lymph % (Auto) 21.4 Nye % (Auto) 9.1 Eos % (Auto) 8.2 H Baso % (Auto) 0.4 Absolute Neuts (auto) 4.8 Absolute Lymphs (auto) 1.67 Total Counted Not Reportable Sodium 145 Potassium 3.7 Chloride 111 H Carbon Dioxide 26.0 Anion Gap 8 BUN 10 Creatinine 0.87 Estim Creat Clear Calc 82.76 Est GFR (MDRD) Af Amer 97 Est GFR (MDRD) Non-Af 80 BUN/Creatinine Ratio 11.5 Glucose 83 Calcium 8.3 L Phosphorus 3.[address] Saulo Mckeon-pulmonary medicine Dr. Buster Villanueva-infectious disease Operations: None Procedures: Central line placement, Intubation Summary of Care Provided: ] The patient is a 32 year old F with a past medical history of seizure disorder, noncompliance with medications, depression, hypertension and superobesity who was brought to the ED at [facility] on 2017 by EMS actively seizing. Apparently the told the squad she ran out of her medications however, she was given RX's for 1 month of meds at DC from the hospital on 06/23/17. She was given 5 mg of Versed in the squad with no change. She was given a total of 6 mg of Ativan in the emergency room prior to cessation of seizure activity. She was intubated to protect her airway. She had just recently been admitted to [facility] from 06/20/17 to for seizures due to non-compliance with medications. She was discharged on Augmentin for tx of Aspiration pneumonia due to MSSA. In between admissions to [facility] she was admitted to [facility] for seizures. Vital signs in the ED were temperature 98.9, pulse rate 80, blood pressure 130/100, respiratory rate 14 and she was 97% saturated on 30% FiO2/mechanical ventilation. Chest x-ray showed poor inspiratory effort with haziness in both lung bases. White Blood cell count was elevated at 18.3 with an unremarkable differential. Hemoglobin was 12.8 and platelets are within normal limits. PT was 15.5 and the PTT was normal. BMP showed a decreased serum bicarb of 20 with an increased anion gap of 20 secondary to status epilepticus. BUN was 9 with a creatinine of 1.45 and creatinine at discharge from the hospital on 06/23/2017 was 0.81. Lactic acid was elevated at 2.8 and this is most likely secondary to prolonged seizure activity. Troponin was less than 0.02 and the LFTs are unremarkable. Serum test was negative. Drug screen on her most recent admission was positive for cannabinoids. UA showed 0 WBCs per high-power field. She was admitted to the ICU and started on Zosyn and Vancomycin for suspected aspiration pneumonia. Keppra 1,250 mg IV Q12H was ordered. Dr. Mckeon was consulted. Follow up CXR's did not show PNA. Sputum culture exhibited no growth. 1 of 2 blood cultures grew Fingoldia Magna whic is an anaerobe. Dr. Villanueva was consulted and felt this was most likely a contaminant and recommended DC on Augmentin for 4 additional days of antibiotics in addition to the 5 days she had in the hospital. She had no seizures in the hospital on Keppra. The patient has had seizures since childhood and her memory is very poor. Her manages her medications but forgets to give them to her. Prior to discharge follow-up by the [facility] was arranged. They have pillboxes with an alarm to remind patients to take her medications. We are hopeful this will be effective and negate the need for multiple admissions to the hospital for status epilepticus. She was discharged from the hospital on and given a prescription for Augmentin 875 mg, #8 tablets, 1 twice daily. She will resume Keppra 1250 mg twice daily and amlodipine 10 mg daily. She was instructed to follow-up with Dr. Peguero's in 1 week. GENERAL: alert, oriented X 3, Cooperative, NAD, sleepy ORAL: moist mucosa, no mucosal lesions NECK: No JVD, supple, trachea midline LUNGS: CTA, symmetric chest expansion HEART: RRR, Normal S1 and S2, no rub, no gallop, No MM ABDOMEN: soft, NT, ND, BS present, no guarding with palpation EXTREMITIES: no edema, no cyanosis, no calf tenderness SKIN: No rashes, no breakdown NEUROLOGIC: no focal neurologic deficits PSYCH: appropriate, normal affect, pleasant Discharge Activity: Return to Normal Activity, May Not Drive Call your doctor if you observe: Fever of 101 or Higher, Shortness of breath, Dizziness, Fainting spells, Chest pain, Calf discomfort, - - cough, diarrhea, rash Home Medications: Medications to take at Discharge Amlodipine [Norvasc] 10 mg PO DAILY 09/17/16 Levetiracetam [Keppra] 1,000 mg PO BID #60 tab 06/23/17 levETIRAcetam tablet [Keppra tablet] 250 mg PO BID #60 tab 06/23/17 Amox/Clavulanate Tablet [Augmentin Tablet] 875 mg PO BID #8 tab 07/20/17 Following Prescrptions Were Given to Patient: Amox/Clavulanate Tablet [Augmentin Tablet] 875 mg PO BID #8 tab Primary Care Physician: Ruba Carrillo DO [Primary Care Provider] - Please follow up with your Primary Care Physician in: 1 week Patient Instructions: MyPlate Worksheet: 1,600 Calories, MyPlate Worksheet: 1, 800 Calories Disposition: Home Minutes spent on discharge:: 35 Patient Condition:: Good Medical Necessity - Tobacco Use Smoking Status: Current every day smoker Tobacco Use: Cigarettes Meaningful Use Info Meaningful Use Diagnoses (Choose all that apply): None applicable Code Visit Inpatient E&M: 50730 Disch Hosp
--- NOTE | 2017-07-20 15:19 | NURSING ---
15:10 Rt IJ- TLC discontinued after site cleaned. sutures x2 removed. pressure held for 5minutes venous status obtained, no drainage noted. vasoline dressing and folded 4x4's utilized with medipore tape. pt instructed bedrest for 30minutes. primary RN and PLUGGER MAN informed. sign placed at bed. pt tolerated well no symptoms as this time. call light within reach.
--- NOTE | 2017-07-25 14:13 | CCN.REFER ---
AGREES TO CCN. VISIT TO HOME. ELECTRONIC MEDMINDER PLACED. KEPRRA 1000 MG NOTED IN HOME. STATES COULD NOT AFFORD THE KEPPRA 250 MG. T/C TO PCP - HAS NOT BEEN SINCE 2017. APPT MADE FOR 07/28 @1:30 FOR HOSPITAL FOLLOW UP AND DISCUSS MEDICATIONS. PATIENT MADE AWARE OF APPT. STATES DAD WILL TAKE HER. T/C TO [facility]ILL[facility] RENEE TO MAKE AWARE OF MEDMINDER BEING PLACED.
== END 2017-07-20 16:00 | disposition home or self-care (01) | DRG 24 ==
LOC: ED 15:05 → ICU 17:27 → MS3 07-20 16:11
PROVIDERS: Internal Medicine Critical Care Medicine; Admitting Provider Internal Medicine; Emergency Provider Emergency Medicine; Family Provider Family Medicine; PCP Family Medicine; Visit Provider Internal Medicine
DX: G40.401 Other generalized epilepsy and epileptic syndromes, not intractable, with status epilepticus (principal); J96.00 Acute respiratory failure, unspecified whether with hypoxia or hypercapnia; E87.2 Acidosis; N17.9 Acute kidney failure, unspecified; J69.0 Pneumonitis due to inhalation of food and vomit; J15.8 Pneumonia due to other specified bacteria; F17.210 Nicotine dependence, cigarettes, uncomplicated; Z91.14 Patient's other noncompliance with medication regimen; I10 Essential (primary) hypertension; E66.01 Morbid (severe) obesity due to excess calories; Z68.42 Body mass index [BMI] 45.0-49.9, adult; F32.9 Major depressive disorder, single episode, unspecified; F12.90 Cannabis use, unspecified, uncomplicated
CPT/HCPCS: 31500; 31720; 36600; 51702; 71045; 80048; 80053; 80307; 81001; 82550; 82803; 82962; 83605; 83735; 84100; 84484; 84703; 85025; 85610; 85730; 87040; 87070; 87076; 87086; 87205; 87641; 93005; 93306; 94002; 94003; 94640; 94660; 94667; 94668; 95831; 97110; 97162; 97165; 97530; 97802; 99251; 99285; 99406; J7030; J7040; J7050; Q9957; A4216; G0463

== ENCOUNTER 2017-08-15 14:00 | Emergency (ER) | payer MEDICAID, SELFPAY ==
[2017-08-15] VITALS (16 sets, daily range): BP systolic 130–159; BP diastolic 72–98; PULSE 91–147; RESP 12–26; TEMP 36.4–37.2; O2SAT 93–100; BMI 41.5
[2017-08-15] MEDS: 0.9% Normal Saline 1,000 ML 150 ML IV (14:00)
[2017-08-15] MEDS: LORazepam 2 MG/ML Syringe IV ×3 (14:04→14:40)
[2017-08-15] MEDS: Succinylcholine Chloride 200 MG/10 ML Vial 100 MG IV (14:13)
[2017-08-15 14:40] LABS: Color, Urine Yellow (Yellow); Glucose, Dipstick Normal (Normal); Ketone-Dipstick 15 mg/dl (Negative); Leukocyte Esterase-Dipstick Negative /ul (Negative); Nitrite-Dipstick Negative (Negative); Occult Blood-Urine 10 /ul (Negative); Protein-Dipstick 500 mg/dl (Negative); Urine Bilirubin Dipstick Negative (Negative); Urine Clarity Cloudy (Clear); Urine Urobilinogen Normal (Normal)
[2017-08-15] MEDS: levETIRAcetam IV 1,000 MG/100 ML BAG 400 MG IV (14:47)
[2017-08-15 14:54] LABS: Bacteria 1+ /hpf (None Seen); Squamous Epithelial Cells - UA 5-10 SEEN /hpf (5-10); White Blood Cells 0-5 SEEN /hpf (0-5)
[2017-08-15 14:55] LABS: Red Blood Cells-Urine 0-5 SEEN /hpf (0-5)
[2017-08-15 14:56] LABS: Hyaline Cast 0-5 SEEN /lpf (0-5); Mucous, Urine 1+ /hpf (<or=2+)
[2017-08-15 14:56] LABS: Albumin, Serum 3.7 g/dL (3.2-5.0); BUN 7 mg/dL (7-18); BUN/Creat Ratio 5.5 RATIO (10-20); Creatinine, Serum 1.27 mg/dL (0.55-1.02); EST Glomerular Filtration Rate 52 mL/min (>60); Est Glom Filt Rate - Afr Amer 62 mL/min (>60); Estimated Creatinine Clearance 63.56 ml/min; Globulin 4.2 g/dL (2.2-4.2); Glucose 216 mg/dL (74-106); Protein, Total 7.9 g/dL (6.4-8.2)
[2017-08-15 14:57] LABS: ALB/GLOB Ratio 0.9 RATIO (0.9-2.4); AST(SGOT) 17 U/L (15-37); Alanine Aminotransfer ALT/SGPT 21 U/L (13-56); Alkaline Phosphatase 91 U/L (45-117); Anion Gap 13 (5-15); Calcium,Total 8.5 mg/dL (8.5-10.1); Chloride 105 mmol/L (98-107); Potassium 4.2 mmol/L (3.5-5.1); Sodium Level 140 mmol/L (136-145)
[2017-08-15 14:58] LABS: Amphetamine Urine VISTA NEGATIVE (<1000 ng/mL); Barbiturate Urine VISTA NEGATIVE (< 200 ng/mL); Benzodiazepine Urine VISTA POSITIVE (< 200 ng/mL); Cocaine Urine VISTA NEGATIVE (< 300 ng/mL); Ecstacy Urine VISTA NEGATIVE (< 500 ng/mL); Methadone Urine VISTA NEGATIVE (< 300 ng/mL); PCP Urine VISTA NEGATIVE (< 25 ng/mL); THC Urine VISTA NEGATIVE (< 50 ng/mL); Vista UDS pH Range 5
--- NOTE | 2017-08-15 15:04 | RAD_ITS ---
STUDY: X-RAY CHEST REASON FOR EXAM: Female, 32 years old. Seizure. Endotracheal tube placement. TECHNIQUE: Single AP portable view of the chest. COMPARISON: Comparison is made with prior study dated July 19, 2017. FINDINGS: An endotracheal tube is in situ. The tip is at 3.8 cm proximal to the sidney. The nasogastric tube is seen with the tip in the fundal portion of the stomach. There is gaseous distention of the stomach. The lungs are clear and expanded. There is no demonstrated pleural abnormality. Normal size heart. Normal mediastinum and man. Normal visualized pulmonary arteries. Normal visualized aortic arch and descending thoracic aorta. Normal visualized thoracic spine. Air is seen within the soft tissues of the lower left cervical region. The patient is status post cholecystectomy. RAD/Chest 1 View (Portable) IMPRESSION: The tip of the endotracheal tube is at 3.8 cm proximal to the sidney. Air is seen within the soft tissues overlying the lower aspect of the left cervical region. Electronically Signed: Bartolo Verma MD at 15:30 EDT Tel [phone], Service support ,
--- NOTE | 2017-08-15 15:32 | NURSING ---
DR STARR CALLED [facility] FOR TRANSFER
--- NOTE | 2017-08-15 15:50 | ED.RN ---
SEIZURES CEASED AT THIS TIME. PT RESTING COMATOSE IN BED. NO S/S DISTRESS NOTED. OG AT LIS. POWELL DRAINING CLEAR YELLOW URINE.
--- NOTE | 2017-08-15 16:00 | CT_ITS ---
STUDY: CT BRAIN WITHOUT CONTRAST REASON FOR EXAM: Female, 32 years old. Seizure. RADIATION DOSAGE (If Supplied By Facility): CTDIvol = ( 44.99 ) mGy, DLP = ( 812.98 ) mGycm TECHNIQUE: Transaxial CT imaging of the brain was performed without administration of intravenous contrast material. Individualized dose optimization techniques were used for this CT. COMPARISON: March 06, 2017. FINDINGS: Endotracheal and orogastric tube are present. Normal soft tissue structures. Normal calvarium. Normal size ventricles and extra-axial spaces for the patient's age. Normal white matter tracts of the cerebral hemispheres. There is stable asymmetric mild atrophy of the left cerebral hemisphere. Normal basal ganglia and thalami. Normal brainstem. Normal cerebellum. There is no intracranial hemorrhage. There are no findings of an acute ischemic infarction. Normal visualized paranasal sinuses. CT/Brain/Head without Contrast IMPRESSION: No acute intracranial abnormality. Stable appearance with asymmetry. Electronically Signed: Joo Santos MD at 17:18 EDT , Service support ,
[2017-08-15 16:20] LABS: Absolute Lymphocyte Count 1.56 X10^3/ul (0.83-4.51); Absolute Neutrophil Count 15.3 X10^3/uL (2.0-7.7); Basophil# 0.01 X10^3/uL; Basophil% 0.1 % (0-1); Eosinophil# 0.01 X10^3/uL; Eosinophils% 0.1 % (0-5); Hematocrit 38.7 % (37-47); Hemoglobin 12.3 g/dl (12.0-15.0); Lymphocyte # 1.56 X10^3/ul (4.0); Lymphocyte % 9.1 % (19-41); Mean Corp Hgb Conc 31.8 g/gl (32-36); Mean Corpuscular Hgb 26.7 pg (27.0-32.0); Mean Corpuscular Volume 83.9 fL (81-99); Mean Platelet Vol. 11.5 fl (6.2-12.0); Monocyte# 0.27 X10^3/uL; Monocyte% 1.6 % (0-10); Neutrophil # 15.32 X10^3/uL (2.7-7.7); Platelet Count 217 K/mm3 (150-450); RBC Distribution Width CV 13.3 % (11.6-14.6); Red Blood Count 4.61 M/mm3 (4.2-5.4); White Blood Count 17.2 K/mm3 (4.4-11.0)
[2017-08-15 16:25] LABS: POSITIVE COUNT NO; POSITIVE DIFFERENTIAL NO; POSITIVE MORPHOLOGY NO
--- NOTE | 2017-08-15 16:52 | ED.VISSUMM ---
- ER Visit Summary Date of Service: 08/15/17 Chief Complaint: [Seizure] History of Present Illness: The patient is a 32 F [presents to the emergency department with complaint of a seizure that started prior to arrival in the emergency department. Patient's called the ambulance when patient started to have a whole body tonic-clonic seizure that lasted a few minutes. Patient had not been ill and was feeling well throughout the day. She had not had any falls or head injuries. On EMS arrival patient was staring but not actively seizing and was not following commands for them. EMS began to transport patient when she started having whole body tonic-clonic seizure activity at which time they gave her 5 mg of Versed IM. Patient continued to seize and was assisted with bag valve mask ventilation after they placed a nasal trumpet. No IV was established in the field. On arrival to the emergency department patient continues to actively seize and has sonorous respirations being assisted with bag valve mask ventilation. Patient unable to give me any history. Patient has long history of noncompliance with seizure meds and history of status epilepticus.] Physical Examination: [HEENT-PERRLA, EOMI. Cranial nerves II through XII grossly intact. TMs clear. Mucous membranes moist. No adenopathy. Patient is atraumatic and patient has moderate amount of secretions about the mouth. Cardiovascular-regular and tachycardic rhythm without murmur or ectopy Lungs-clear to auscultation, chest wall stable without crepitus or subcu emphysema Abdomen-normoactive bowel sounds, soft, nontender, no rebound or rigidity, no peritoneal signs. Extremities-intact ?4, normal range of motion, normal pulses, atraumatic] Test Results: [CBC with a potential white count 17.2, hemoglobin 12, hearing 39, platelets 217. Chemistries unremarkable. Urinalysis was normal. Toxicology screen was positive for benzodiazepines. LFTs were normal.] I believe patient's leukocytosis likely reactive secondary to her seizure. Emergency Department Course and Treatment: [On arrival to the emergency department an IV line was established and patient was treated with Ativan 2 mg IV. Patient continues to seize and was given another 2 mg of Ativan. Patient was given Keppra 1 g IV. After discussing case with Dr. Vandana Montgomery I was instructed to give patient a gram of Dilantin IV as well. Patient continued to have intermittent twitches and I am facial twitches. I was asked to transfer patient to tertiary [facility] for definitive management of her status epilepticus. I discussed case with [facility] transfer line and patient was accepted under the care of Dr. Meyer.] Treatment Plan: [Transfer to [facility]] Disposition: [Transfer] Impression: [Status epilepticus] This note was generated with e-contratos dictation software. It may contain incorrect words, spelling, and punctuation that were not noted in review of the chart prior to signing ED Disposition - Plan for ED Patient: Chief Complaint: Seizure Referrals: Ruba Carrillo DO [Primary Care Provider] -
--- NOTE | 2017-08-15 16:58 | ED.DCSUM_ITS ---
- ER Visit Summary Date of Service: 08/15/17 Chief Complaint: [Seizure] History of Present Illness: The patient is a 32 F [presents to the emergency department with complaint of a seizure that started prior to arrival in the emergency department. Patient's called the ambulance when patient started to have a whole body tonic-clonic seizure that lasted a few minutes. Patient had not been ill and was feeling well throughout the day. She had not had any falls or head injuries. On EMS arrival patient was staring but not actively seizing and was not following commands for them. EMS began to transport patient when she started having whole body tonic-clonic seizure activity at which time they gave her 5 mg of Versed IM. Patient continued to seize and was assisted with bag valve mask ventilation after they placed a nasal trumpet. No IV was established in the field. On arrival to the emergency department patient continues to actively seize and has sonorous respirations being assisted with bag valve mask ventilation. Patient unable to give me any history. Patient has long history of noncompliance with seizure meds and history of status epilepticus.] Physical Examination: [HEENT-PERRLA, EOMI. Cranial nerves II through XII grossly intact. TMs clear. Mucous membranes moist. No adenopathy. Patient is atraumatic and patient has moderate amount of secretions about the mouth. Cardiovascular-regular and tachycardic rhythm without murmur or ectopy Lungs-clear to auscultation, chest wall stable without crepitus or subcu emphysema Abdomen-normoactive bowel sounds, soft, nontender, no rebound or rigidity, no peritoneal signs. Extremities-intact ?4, normal range of motion, normal pulses, atraumatic] Test Results: [CBC with a potential white count 17.2, hemoglobin 12, hearing 39 , platelets 217. Chemistries unremarkable. Urinalysis was normal. Toxicology screen was positive for benzodiazepines. LFTs were normal.] I believe patient' s leukocytosis likely reactive secondary to her seizure. Emergency Department Course and Treatment: [On arrival to the emergency department an IV line was established and patient was treated with Ativan 2 mg IV. Patient continues to seize and was given another 2 mg of Ativan. Patient was given Keppra 1 g IV. After discussing case with Dr. Vandana Montgomery I was instructed to give patient a gram of Dilantin IV as well. Patient continued to have intermittent twitches and I am facial twitches. I was asked to transfer patient to tertiary [facility] for definitive management of her status epilepticus. I discussed case with [facility] transfer line and patient was accepted under the care of Dr. Meyer.] Treatment Plan: [Transfer to [facility]] Disposition: [Transfer] Impression: [Status epilepticus] This note was generated with [employer] dictation software. It may contain incorrect words, spelling, and punctuation that were not noted in review of the chart prior to signing ED Disposition - Plan for ED Patient: Chief Complaint: Seizure Referrals: Ruba Carrillo DO [Primary Care Provider] -
== END 2017-08-15 20:22 | disposition short-term general hospital (02) ==
PROVIDERS: Emergency Provider Emergency Medicine; Family Provider Family Medicine; PCP Family Medicine
DX: G40.401 Other generalized epilepsy and epileptic syndromes, not intractable, with status epilepticus (principal); I10 Essential (primary) hypertension; Z72.0 Tobacco use; Z79.899 Other long term (current) drug therapy
CPT/HCPCS: 31500; 51702; 70450; 71045; 80048; 80053; 80307; 80320; 81001; 85025; 87040; 94002; 96365; 96367; 96375; 96376; 99251; 99285; J7030; A4216; G0463; G0480

== ENCOUNTER 2017-09-03 18:09 | Emergency (ER) | payer MEDICAID, SELFPAY ==
[2017-09-03 18:09] VITALS: BP 146/93; PULSE 80; RESP 15; TEMP 37.1; O2SAT 97; BMI 42.3
--- NOTE | 2017-09-03 18:29 | ED.VISSUMM ---
- ER Visit Summary Date of Service: 09/03/17 Chief Complaint: Medication refill History of Present Illness: The patient is a 32 F presenting secondary to needing a medication refill on her Dilantin. Patient's initially got her prescription filled in [place] and they did not have enough pills to give her, so they told her that she has to come back to [place] to get the remaining portion of her Dilantin prescription, and she does not have means to get to [place] to get this. Physical Examination: Vital signs are within normal limits. Physical exam unremarkable and noted in the template Test Results: None indicated Emergency Department Course and Treatment: Patient was treated with 200 p.o. Dilantin and was discharged with a prescriptio Disposition: Discharge Impression: 1. Medication refill This note was generated with [employer] dictation software. It may contain incorrect words, spelling, and punctuation that were not noted in review of the chart prior to signing ED Disposition - Plan for ED Patient: Disposition: Home or Assisted Living Chief Complaint: Med Refill Diagnosis: Medication refill Instructions: Med Refill Prescriptions: Phenytoin Sodium Extended [Dilantin] 150 mg PO BID #300 cap Referrals: Ruba Carrillo DO [Primary Care Provider] - As soon as possible
--- NOTE | 2017-09-03 18:33 | ED.DCSUM_ITS ---
- ER Visit Summary Date of Service: 09/03/17 Chief Complaint: Medication refill History of Present Illness: The patient is a 32 F presenting secondary to needing a medication refill on her Dilantin. Patient's initially got her prescription filled in [place] and they did not have enough pills to give her , so they told her that she has to come back to [place] to get the remaining portion of her Dilantin prescription, and she does not have means to get to [place] to get this. Physical Examination: Vital signs are within normal limits. Physical exam unremarkable and noted in the template Test Results: None indicated Emergency Department Course and Treatment: Patient was treated with 200 p.o. Dilantin and was discharged with a prescriptio Disposition: Discharge Impression: 1. Medication refill This note was generated with [employer] dictation software. It may contain incorrect words, spelling, and punctuation that were not noted in review of the chart prior to signing ED Disposition - Plan for ED Patient: Disposition: Home or Assisted Living Chief Complaint: Med Refill Diagnosis: Medication refill Instructions: Med Refill Prescriptions: Phenytoin Sodium Extended [Dilantin] 150 mg PO BID #300 cap Referrals: Ruba Carrillo DO [Primary Care Provider] - As soon as possible
[2017-09-03] MEDS: Phenytoin Na 100 MG Capsule 200 MG PO (18:42)
== END 2017-09-03 18:46 | disposition home or self-care (01) ==
LOC: ED 18:46
PROVIDERS: Emergency Provider Emergency Medicine; Family Provider Family Medicine; PCP Family Medicine
DX: R56.9 Unspecified convulsions (principal); Z76.0 Encounter for issue of repeat prescription; E66.9 Obesity, unspecified; Z79.899 Other long term (current) drug therapy
CPT/HCPCS: 99282

== ENCOUNTER 2017-10-09 21:29 | Emergency (ER) | payer MEDICAID, SELFPAY ==
[2017-10-09] VITALS (7 sets, daily range): BP systolic 129–159; BP diastolic 73–111; PULSE 81–152; RESP 16–31; TEMP 36.3–38.8; O2SAT 96–100; BMI 47.3; BMI 44.7
[2017-10-09] MEDS: Succinylcholine Chloride 200 MG/10 ML Vial 100 MG IV (21:36)
[2017-10-09] MEDS: 0.9% Normal Saline 1,000 ML 1000 ML IV (21:44)
[2017-10-09] MEDS: Propofol 10MG/Ml 1,000 MG/100 ML Bottle 3.993 MG CONT INF (21:45)
--- NOTE | 2017-10-09 21:48 | ED.VISSUMM ---
- ER Visit Summary Date of Service: 10/09/17 Chief Complaint: Seizure History of Present Illness: The patient is a 32 F presents by EMS for seizures as continuous. Status post 5 mg Versed, recurrent seizure. History of seizures, history of noncompliance. Multiple visits for similar in status epilepticus. No additional information at this time. Records note Dilantin and Keppra her medications. Also on amlodipine. No history of cholecystectomy. Physical Examination: General: Seizure activity, unresponsive, GCS 3 HEENT: Normocephalic, atraumatic. Moist mucosa membranes. Secretions auditory airway Neck: supple, nontender. Cardiovascular: Regular tachycardic rate and rhythm, no murmurs Respiratory: Diminished Abdomen: Soft, nontender, nondistended Extremities: Nontender, no edema, pulses intact ?4 Neuro: no focal neurological deficits. Test Results: EKG sinus 103, no ST or T-wave changes. Chest x-ray ETT in place no infiltrates. White count 13.7 hemoglobin 12.4. Sodium 138 potassium 3.5. Creatinine 1.35. Tox screen negative. UA negative. Dilantin pending. Urine and blood cultures pending. Lactic acid 5.2. Troponin negative. CT head negative. Emergency Department Course and Treatment: Patient presenting in status epilepticus, secretions airway. There is difficulty with IV placement initially, right IOL was placed by myself with no difficulties. Patient intubated for airway protection. Etomidate succinylcholine, no complications. 7.5 Libyan 21 cm at the lips. Patient placed on a propofol drip. Workup initiated, white count 13.7, sodium 138. There is no infection. Border fever resolved within 5 minutes of Tylenol. Likely reactive. Also lactic acid 5.2 likely from her seizure activities. No signs of infection currently. Cultures are in the lab. Multi reevaluation remained stable, there is no nystagmus or eye twitching. I spoke with neurology Dr. Ace recommends with status epilepticus she no skilled facility for an EEG. With Dilantin pending, he did recommend getting a bolus Dilantin which was ordered. Patient with known history of noncompliance. I spoke with spouse who wishes to go to [facility]. Transfer line is contacted for transfer. In the interim, patient lost primary access, had only one small access. Central line was placed right IJ with no complications. 15 cm in length, dark return in all ports. Dilantin level did return subtherapeutic at 0.6. Patient accepted to [facility] undersurface Dr. Franco. Treatment Plan: [] Disposition: Transfer to [facility] Impression: 1. Status epilepticus 2. Acute respiratory on a ventilator 3. Transient fever This note was generated with [employer] dictation software. It may contain incorrect words, spelling, and punctuation that were not noted in review of the chart prior to signing ED Disposition - Plan for ED Patient: Disposition: [facility] Chief Complaint: Seizure Diagnosis: Status epilepticus, Acute respiratory failure, Fever Referrals: Ruba Carrillo DO [Primary Care Provider] -
[2017-10-09] MEDS: Acetaminophen 650 MG Suppository 1000 MG RECTAL (21:56)
[2017-10-09 22:15] LABS: Bacteria 0 SEEN /hpf (None Seen); Mucous, Urine 0 SEEN /hpf (<or=2+); Squamous Epithelial Cells - UA 0 SEEN /hpf (5-10); White Blood Cells 0 SEEN /hpf (0-5)
[2017-10-09 22:21] LABS: Color, Urine Yellow (Yellow); Glucose, Dipstick 50 mg/dl (Normal); Ketone-Dipstick Negative (Negative); Leukocyte Esterase-Dipstick Negative /ul (Negative); Nitrite-Dipstick Negative (Negative); Occult Blood-Urine 10 /ul (Negative); Protein-Dipstick 100 mg/dl (Negative); Urine Bilirubin Dipstick Negative (Negative); Urine Clarity Clear (Clear); Urine Urobilinogen Normal (Normal)
--- NOTE | 2017-10-09 22:32 | NURSING ---
PATIENT HAS CONTINUED OVER THE LAST 15-20 MINUTES TO MOVE HER HANDS AND ARMS. WE HAVE TITRATED HER HER DIPROVAN UP TO 40 MCG/KG /MIN CURRENTLY AT 31.9 ML. HER IS AT THE BEDSIDE.
[2017-10-09 22:42] LABS: Absolute Lymphocyte Count 1.94 X10^3/ul (0.83-4.51); Absolute Neutrophil Count 11.1 X10^3/uL (2.0-7.7); Amorphous Sediment 1+; Basophil# 0.03 X10^3/uL; Basophil% 0.2 % (0-1); Eosinophil# 0.17 X10^3/uL; Eosinophils% 1.2 % (0-5); Hematocrit 39.5 % (37-47); Hemoglobin 12.4 g/dl (12.0-15.0); Lymphocyte # 1.94 X10^3/ul (4.0); Lymphocyte % 14.1 % (19-41); Mean Corp Hgb Conc 31.4 g/gl (32-36); Mean Corpuscular Hgb 26.7 pg (27.0-32.0); Mean Corpuscular Volume 84.9 fL (81-99); Mean Platelet Vol. 12.1 fl (6.2-12.0); Monocyte# 0.48 X10^3/uL; Monocyte% 3.5 % (0-10); Neutrophil # 11.09 X10^3/uL (2.7-7.7); Neutrophil % 80.9 % (47-70); Platelet Count 238 K/mm3 (150-450); RBC Distribution Width SD 43.5 fl (35.1-43.9); Red Blood Cells-Urine 0-5 SEEN /hpf (0-5); Red Blood Count 4.65 M/mm3 (4.2-5.4); White Blood Count 13.7 K/mm3 (4.4-11.0)
[2017-10-09 22:45] LABS: POSITIVE COUNT NO; POSITIVE DIFFERENTIAL NO; POSITIVE MORPHOLOGY NO
[2017-10-09 22:49] LABS: Amphetamine Urine VISTA NEGATIVE (<1000 ng/mL); Barbiturate Urine VISTA NEGATIVE (< 200 ng/mL); Benzodiazepine Urine VISTA NEGATIVE (< 200 ng/mL); Cocaine Urine VISTA NEGATIVE (< 300 ng/mL); Ecstacy Urine VISTA NEGATIVE (< 500 ng/mL); Methadone Urine VISTA NEGATIVE (< 300 ng/mL); PCP Urine VISTA NEGATIVE (< 25 ng/mL); THC Urine VISTA NEGATIVE (< 50 ng/mL); Vista UDS pH Range 5
[2017-10-09 22:54] LABS: Partial Thromboplast Time 26.6 Seconds (24.1-36.2); Prothrombin Time (Protime)PT. 13.3 SECONDS (11.7-14.9)
[2017-10-09 23:07] LABS: ALB/GLOB Ratio 0.8 RATIO (0.9-2.4); AST(SGOT) 18 U/L (15-37); Alanine Aminotransfer ALT/SGPT 18 U/L (13-56); Albumin, Serum 3.2 g/dL (3.2-5.0); Alkaline Phosphatase 85 U/L (45-117); Anion Gap 11 (5-15); BUN 10 mg/dL (7-18); BUN/Creat Ratio 7.4 RATIO (10-20); Calcium,Total 8.2 mg/dL (8.5-10.1); Chloride 106 mmol/L (98-107); Creatinine, Serum 1.35 mg/dL (0.55-1.02); EST Glomerular Filtration Rate 48 mL/min (>60); Est Glom Filt Rate - Afr Amer 58 mL/min (>60); Estimated Creatinine Clearance 55.49 ml/min; Glucose 189 mg/dL (74-106); Potassium 3.5 mmol/L (3.5-5.1); Protein, Total 7.2 g/dL (6.4-8.2); Sodium Level 138 mmol/L (136-145)
[2017-10-09 23:12] LABS: Pregnancy, Serum, hCG Quali. NEGATIVE Negative (0-9 Nonpreg)
[2017-10-09 23:14] LABS: Lactic Acid 5.2 mmol/L (0.4-2.0)
--- NOTE | 2017-10-09 23:14 | ED.RN ---
DR HOLLAND NOTIFIED OF LACTIC ACID RESULTS
--- NOTE | 2017-10-09 23:16 | ED.RN ---
DR HOLLAND CAME IN AND ASSESSED THE PATIENT. SHE IS CURRENTLY NOT SEIZING AND RESTING SEDATED. HE IS GOING TO ORDER A DILANTIN BOLUS BECAUSE SHE DOESN'T HAVE ANY IN HER SYSTEM PER DR. HOLLAND.
--- NOTE | 2017-10-09 23:18 | ED.RN ---
TEMPERATURE IS 97.4 CORE SO A WARM BLANKET WAS APPLIED.
[2017-10-09 23:55] LABS: Phenytoin (Dilantin) Level 0.6 mL (10.0-20.0)
[2017-10-10] VITALS (10 sets, daily range): BP systolic 151–175; BP diastolic 95–116; PULSE 76–92; RESP 16–17; TEMP 37–37.8; O2SAT 100
[2017-10-10 00:01] LABS: Base Excess -1 mmol/L (-2 to +2); Bicarbonate 24.4 mmol/L (22-26); Blood Gas Specimen Type ART; FI02 50; Mode A-C; O2 Delivery Device Vent; PEEP 5; PO2 155 mmHG (75-100); RR 16; SITE R Radial; SO2 99 % (95-99); Time Given 2355; Total Carbon Dioxide 26 mmol/L; Vt 455; pCO2 41.9 mmHg (35-45); pH 7.37 (7.35-7.45)
--- NOTE | 2017-10-10 00:34 | NURSING ---
DR. HOLLAND IS CURRENTLY AT THE BEDSIDE INSERTING A CENTRAL LINE ON PATIENT D/T INABILITY TO OBTAIN ANY MORE VENOUS ASSESS. [facility] ACCEPTED PATIENT FOR TRANSFER. WE ARE GOING TO TRY THE PATIENT ON A VERSED DRIP FIRST AND STOP PROPOFOL D/T SQUAD AVAILABILITY TO TAKE THE PATIENT ACCORDING TO THE DRIP PRIOR TO DECIDING WHICH SQUAD IS BEST FOR THE PATIENT.
[2017-10-10] MEDS: 0.9% Normal Saline 1,000 ML 150 ML IV (01:24)
--- NOTE | 2017-10-10 01:57 | ED.RN ---
PER DR. HOLLAND SWITCH PATIENT OVER TO VERSED AT 4 ML/HR 2 MG/HR AND SLOWLY START WEANING PATIENT OFF OF THE PROPOFOL. VERSED IS HANGING PER THIS NURSE AND PROPOLFOL DECREASED FROM 40 TO 30 MCG/KG/MIN
--- NOTE | 2017-10-10 02:18 | ED.RN ---
PER DR. HOLLAND STOP THE PROPOFOL, AND SEE HOW SHE DOES. PROPOFOL STOPPED.
[2017-10-10 02:21] LABS: Reflex Lactate? Y
[2017-10-10] MEDS: fentaNYL 100 MCG/2 ML Ampul 50 MCG IV (02:50)
--- NOTE | 2017-10-10 02:55 | NURSING ---
PATIENT WAS STARTING TO MOVE AROUND A LOT ON THE VERSED DRIP. IT WAS TITRATED AT [address] HOLLAND WASN'T AVAILABLE SO I ASKED DR. FRENCH. THE SQUAD WAS HERE TO TAKE HER AND SHE NEEDED TO BE SEDATED MORE SO SHE ORDERED 50 MCG OF FENTANYL. WHICH WAS GIVEN BY THIS NURSE. ONCE THIS SQUAD FOUND OUT SHE HAD MEDICATIONS RUNNING THROUGH THE CENTRAL LINE THEY WERE NOT QUALIFIED TO TAKE HER. DR. FRENCH ALSO AWARE OF PATIENT'S TEMPERATURE OF 100.1 AND SHE SAID TO MONITOR HER. ANOTHER SQUAD CALLED AND THEY ARE OK TO TAKE HER WITH A CENTRAL LINE WITH VERSED RUNNING.
--- NOTE | 2017-10-10 03:46 | ED.RN ---
REPORT GIVEN TIA FROM [facility] PRIOR TO TRANSFER TO [facility].
--- NOTE | 2017-10-10 03:58 | NURSING ---
DR. HOLLAND MADE AWARE OF PATIENT'S BP BEING ELEVATED. HE SAID LONG IT IS NOT LOW.
--- NOTE | 2017-10-10 04:00 | ED.RN ---
IO WAS REMOVED FROM RIGHT LOWER LEG AND LEFT FOOT IV WAS DISCONTINUED PRIOR TO TRANSFER.
== END 2017-10-10 04:08 | disposition short-term general hospital (02) ==
PROVIDERS: Emergency Provider Emergency Medicine; Family Provider Family Medicine; PCP Family Medicine
DX: G40.901 Epilepsy, unspecified, not intractable, with status epilepticus (principal); J96.00 Acute respiratory failure, unspecified whether with hypoxia or hypercapnia; R50.9 Fever, unspecified; Z91.14 Patient's other noncompliance with medication regimen; Z72.0 Tobacco use; Z79.899 Other long term (current) drug therapy
CPT/HCPCS: 31500; 36556; 36600; 51702; 70450; 71045; 80053; 80185; 80307; 81001; 82803; 83605; 84484; 84703; 85025; 85610; 85730; 87040; 87086; 93005; 94002; 94003; 96361; 96365; 96366; 96367; 96368; 96375; 99251; 99285; J7030; A4216; C1751; G0463

== ENCOUNTER 2017-12-31 16:20 | Emergency (ER) | payer MEDICAID, SELFPAY ==
[2017-12-31 16:21] VITALS: BP 146/91; PULSE 87; RESP 17; TEMP 36.3; O2SAT 100; BMI 48.8
[2017-12-31 16:46] VITALS: BP 138/80; PULSE 80; RESP 16; O2SAT 98
[2017-12-31] MEDS: fentaNYL 100 MCG/2 ML Ampul 25 MCG IV (17:54)
[2017-12-31 18:29] VITALS: BP 141/70; PULSE 85; RESP 14; O2SAT 98
--- NOTE | 2017-12-31 18:34 | ED.DCSUM_ITS ---
- ER Visit Summary Date of Service: 12/31/17 Chief Complaint: Seizure History of Present Illness: The patient is a 32 F with a history of seizures. She has been taking Keppra but ran out of her Dilantin several days ago. The pharmacy was out and has ordered Dilantin for her. I did confirm this with the pharmacy. She had a staring episode that was witnessed by her family today. It was similar to her prior seizures. She complains of a headache but no other issues currently. Denies any fevers or recent illnesses. Denies focal weakness or numbness. Denies any nausea or vomiting. Physical Examination: Afebrile and vital signs unremarkable. She is alert and oriented. No acute distress. Head and neck are atraumatic. HEENT exam unremarkable. Neck is nontender. Heart regular. Lungs clear. Abdomen soft. No focal or lateralizing neurologic abnormalities grossly. Skin appears unremarkable. Emergency Department Course and Treatment: I did confirm the patient's medication history with her pharmacy. She did refill her Dilantin on November 27 but has not had a refill since. She did refill her Keppra just about 2 weeks ago and has been taking that as prescribed. We did treat the patient with a loading dose of Dilantin here. She tolerated this well. She did continue to complain of a mild headache and she was treated with a dose of IV fentanyl. She does have an allergy to anti-inflammatories. On reevaluation, the patient is feeling well. No further seizure activity. She ambulated to the restroom. Family is here and comfortable taking her home. She will follow-up with different pharmacies tomorrow to refill her Dilantin. She should call her physician if she has difficulty refilling her medications. Return at any time for new or worsening issues. Treatment Plan: As above Disposition: Discharged Impression: 1. Recurrent seizure 2. Medication nonadherence secondary to the pharmacy being out of stock This note was generated with [employer] dictation software. It may contain incorrect words, spelling, and punctuation that were not noted in review of the chart prior to signing ED Disposition - Plan for ED Patient: Chief Complaint: Seizure Instructions: ED Seizure Recurrent Referrals: Schuyler Encarnacion DO [Primary Care Provider] -
[2017-12-31 18:45] VITALS: BP 135/71; PULSE 80; RESP 18; O2SAT 98
== END 2017-12-31 18:46 | disposition home or self-care (01) ==
PROVIDERS: Emergency Provider Emergency Medicine; Family Provider Family Medicine; PCP Family Medicine
DX: G40.909 Epilepsy, unspecified, not intractable, without status epilepticus (principal); Z79.899 Other long term (current) drug therapy; Z72.0 Tobacco use
CPT/HCPCS: 96365; 96375; 99282; J7030; A4216

== ENCOUNTER 2018-01-16 18:34 | Emergency (ER) | payer MEDICAID, SELFPAY ==
[2018-01-16] VITALS (8 sets, daily range): BP systolic 98–159; BP diastolic 50–103; PULSE 115–163; RESP 16–35; TEMP 37.6–39.4; O2SAT 94–100
[2018-01-16] MEDS: LORazepam 2 MG/ML Syringe IV ×4 (18:38→19:17)
[2018-01-16] MEDS: LORazepam 2 MG/ML Syringe 1 MG IV ×2 (18:48→18:51)
[2018-01-16] MEDS: levETIRAcetam IV 1,000 MG/100 ML BAG 400 MG IV (18:57)
[2018-01-16] MEDS: 0.9% Normal Saline 1,000 ML 1000 ML IV (19:02)
--- NOTE | 2018-01-16 19:35 | RAD_ITS ---
STUDY: X-RAY CHEST REASON FOR EXAM: Female, 32 years old. Seizure. ET tube and OG tube placement. TECHNIQUE: Portal chest. COMPARISON: 10/09/2017. FINDINGS: ET tube terminates 1.5 cm above the sidney. Orogastric tube is identified in the left upper quadrant consistent with gastric placement. Terminus is not included in the [id number]. Tube may terminate in the gastric antrum or duodenum. The lungs are clear and expanded. There is no demonstrated pleural abnormality. Normal size heart. Normal mediastinum and man. Normal visualized pulmonary arteries. Normal visualized aortic arch and descending thoracic aorta. Normal visualized thoracic spine. Normal visualized ribs, clavicles, and shoulders. There is no demonstrated abnormality of the visualized soft tissue structures of the upper abdomen. RAD/Chest 1 View (Portable) IMPRESSION: 1. No acute cardiopulmonary disease. 2. ET tube and OG tube placement as described above. Electronically Signed: Caprice Roth MD at 19:55 EST Tel , Service support ,
--- NOTE | 2018-01-16 19:45 | CT_ITS ---
STUDY: CT BRAIN WITHOUT CONTRAST REASON FOR EXAM: Female, 32 years old. Stroke, seizures. RADIATION DOSAGE (If Supplied By Facility): CTDIvol = ( 44.99 ) mGy, DLP = ( 812.98 ) mGycm TECHNIQUE: Transaxial CT imaging of the brain was performed without administration of intravenous contrast material. Individualized dose optimization techniques were used for this CT. COMPARISON: 10/09/2017. FINDINGS: Normal soft tissue structures. Normal calvarium. There is chronic asymmetry of the cerebral hemispheres, with mild involutional changes in the left cerebral hemisphere only. White matter tracts are again normal. Normal basal ganglia and thalami. Normal brainstem. Normal cerebellum. There is no intracranial hemorrhage. There are no findings of an acute territorial infarct. No demonstrated mass or mass effect. Normal visualized paranasal sinuses. CT/Brain/Head without Contrast IMPRESSION: No acute process. No change in asymmetric involutional changes in the left cerebral hemisphere. If clinically warranted, consider nonemergent MRI of the brain for further evaluation. Electronically Signed: Caprice Roth MD at 20:36 EST Tel , Service support ,
[2018-01-16 19:49] LABS: Absolute Lymphocyte Count 3.47 X10^3/ul (0.83-4.51); Absolute Neutrophil Count 6.5 X10^3/uL (2.0-7.7); Basophil# 0.03 X10^3/uL; Basophil% 0.3 % (0-1); Eosinophil# 0.16 X10^3/uL; Eosinophils% 1.5 % (0-5); Hematocrit 28.4 % (37-47); Hemoglobin 8.4 g/dl (12.0-15.0); Lymphocyte # 3.47 X10^3/ul (4.0); Lymphocyte % 31.7 % (19-41); Mean Corp Hgb Conc 29.6 g/gl (32-36); Mean Corpuscular Hgb 25.8 pg (27.0-32.0); Mean Corpuscular Volume 87.1 fL (81-99); Mean Platelet Vol. 12.1 fl (6.2-12.0); Monocyte# 0.72 X10^3/uL; Monocyte% 6.6 % (0-10); Neutrophil # 6.46 X10^3/uL (2.7-7.7); Neutrophil % 59.1 % (47-70); Platelet Count 177 K/mm3 (150-450); RBC Distribution Width SD 44.6 fl (35.1-43.9); Red Blood Count 3.26 M/mm3 (4.2-5.4); White Blood Count 10.9 K/mm3 (4.4-11.0)
[2018-01-16 19:50] LABS: POSITIVE COUNT NO; POSITIVE DIFFERENTIAL NO; POSITIVE MORPHOLOGY NO
[2018-01-16 20:13] LABS: BUN 7 mg/dL (7-18); Creatinine, Serum 1.27 mg/dL (0.55-1.02); Glucose 239 mg/dL (74-106)
[2018-01-16 20:14] LABS: Anion Gap 12 (5-15); BUN/Creat Ratio 5.5 RATIO (10-20); Calcium,Total 7.8 mg/dL (8.5-10.1); Chloride 107 mmol/L (98-107); EST Glomerular Filtration Rate 51 mL/min (>60); Est Glom Filt Rate - Afr Amer 62 mL/min (>60); Potassium 4.8 mmol/L (3.5-5.1); Sodium Level 135 mmol/L (136-145)
--- NOTE | 2018-01-17 01:12 | ED.VISSUMM ---
- ER Visit Summary Date of Service: 01/16/18 Chief Complaint: Seizure History of Present Illness: The patient is a 32 F well-known to this ER with history of seizure disorder. She is currently on Keppra and Dilantin. states she missed her morning doses today. EMS was called at 18:14 for seizure activity. Patient was seizing on EMS arrival. They did give her 5 mg of IM Versed approximately 5 minutes prior to arrival in the ED. On arrival to the ED IO was placed in the right humeral head. IV line was also started in the right wrist. Patient required multiple doses of Ativan and was ultimately intubated and given Keppra bolus. Once starting the Versed drip for sedation seizure activity calmed and resolved. Physical Examination: Blood pressure is 98/62, temperature 99.6, heart rate 151, respiratory rate 20, pulse ox 95% on 50% FiO2. On arrival to the ED patient is actively seizing with rhythmic motions noted to the left side of her face, left arm, and left leg. Head neck examination reveals no obvious sign of trauma. Heart is tachycardic and regular. Lung sounds are grossly clear. Abdomen is soft, obese, nontender. Test Results: CBC returns with a hemoglobin of 8.4 hematocrit 28.4. Chemistry studies significant for bicarb of 16, glucose 239. Creatinine is 1.27. Portable chest x-ray shows no acute disease. ET tube ends 1.5 cm above the sidney. CT head shows no acute process. Emergency Department Course and Treatment: Patient received 5 mg of IM Versed via EMS. Patient received multiple doses of IV Ativan for a total of 10 mg. She was given 1 g of Keppra IV. Versed drip was initiated. Patient was intubated on third attempt with direct laryngoscopy. Video laryngoscopy was initially attempted with vocal cords sitting quite anterior. Patient's was at bedside and kept up-to-date throughout. [facility] and accepted by in the ICU. Treatment Plan: [] Disposition: Transfer Impression: Status epilepticus This note was generated with [employer] dictation software. It may contain incorrect words, spelling, and punctuation that were not noted in review of the chart prior to signing ED Disposition - Plan for ED Patient: Disposition: [facility] Chief Complaint: Seizure Referrals: Schuyler Encarnacion DO [Primary Care Provider] -
--- NOTE | 2018-01-17 01:18 | ED.DCSUM_ITS ---
- ER Visit Summary Date of Service: 01/16/18 Chief Complaint: Seizure History of Present Illness: The patient is a 32 F well-known to this ER with history of seizure disorder. She is currently on Keppra and Dilantin. states she missed her morning doses today. EMS was called at 18:14 for seizure activity. Patient was seizing on EMS arrival. They did give her 5 mg of IM Versed approximately 5 minutes prior to arrival in the ED. On arrival to the ED IO was placed in the right humeral head. IV line was also started in the right wrist. Patient required multiple doses of Ativan and was ultimately intubated and given Keppra bolus. Once starting the Versed drip for sedation seizure activity calmed and resolved. Physical Examination: Blood pressure is 98/62, temperature 99.6, heart rate 151, respiratory rate 20, pulse ox 95% on 50% FiO2. On arrival to the ED patient is actively seizing with rhythmic motions noted to the left side of her face, left arm, and left leg. Head neck examination reveals no obvious sign of trauma. Heart is tachycardic and regular. Lung sounds are grossly clear. Abdomen is soft, obese, nontender. Test Results: CBC returns with a hemoglobin of 8.4 hematocrit 28.4. Chemistry studies significant for bicarb of 16, glucose 239. Creatinine is 1.27. Portable chest x-ray shows no acute disease. ET tube ends 1.5 cm above the sidney. CT head shows no acute process. Emergency Department Course and Treatment: Patient received 5 mg of IM Versed via EMS. Patient received multiple doses of IV Ativan for a total of 10 mg. She was given 1 g of Keppra IV. Versed drip was initiated. Patient was intubated on third attempt with direct laryngoscopy. Video laryngoscopy was initially attempted with vocal cords sitting quite anterior. Patient's was at bedside and kept up-to-date throughout. Patient was transferred to [facility] and accepted by in the ICU. Treatment Plan: [] Disposition: Transfer Impression: Status epilepticus This note was generated with [employer] dictation software. It may contain incorrect words, spelling, and punctuation that were not noted in review of the chart prior to signing ED Disposition - Plan for ED Patient: Disposition: [facility] Chief Complaint: Seizure Referrals: Schuyler Encarnacion DO [Primary Care Provider] -
== END 2018-01-16 20:28 | disposition short-term general hospital (02) ==
PROVIDERS: Emergency Provider Emergency Medicine; Family Provider Family Medicine; PCP Family Medicine
DX: G40.901 Epilepsy, unspecified, not intractable, with status epilepticus (principal); E66.9 Obesity, unspecified; Z79.899 Other long term (current) drug therapy; Z91.14 Patient's other noncompliance with medication regimen
CPT/HCPCS: 31500; 31720; 51702; 70450; 71045; 80048; 85025; 94002; 96365; 96367; 96368; 96375; 96376; 99251; 99285; J7030; J7040; J7050; A4216; G0463

== ENCOUNTER 2018-06-18 13:29 | Emergency (ER) | payer MEDICAID, SELFPAY ==
[2018-06-18] VITALS (12 sets, daily range): BP systolic 130–191; BP diastolic 79–138; PULSE 81–164; RESP 16–24; TEMP 37.4; O2SAT 90–100; BMI 42.9
[2018-06-18 13:40] LABS: Bedside Glucose 226 mg/dL (70-110)
[2018-06-18] MEDS: LORazepam 2 MG/ML Syringe 1 MG IV ×2 (13:43→13:53)
[2018-06-18 13:52] LABS: Absolute Lymphocyte Count 4.92 X10^3/ul (0.83-4.51); Absolute Neutrophil Count 6.3 X10^3/uL (2.0-7.7); Basophil# 0.03 X10^3/uL; Basophil% 0.2 % (0-1); Eosinophil# 0.17 X10^3/uL; Eosinophils% 1.4 % (0-5); Hematocrit 43.9 % (37-47); Hemoglobin 13.6 g/dl (12.0-15.0); Lymphocyte # 4.92 X10^3/ul (4.0); Lymphocyte % 39.7 % (19-41); Mean Corpuscular Hgb 27.7 pg (27.0-32.0); Mean Corpuscular Volume 89.4 fL (81-99); Mean Platelet Vol. 11.6 fl (6.2-12.0); Monocyte# 0.88 X10^3/uL; Monocyte% 7.1 % (0-10); Neutrophil # 6.34 X10^3/uL (2.7-7.7); Neutrophil % 51.2 % (47-70); Platelet Count 311 K/mm3 (150-450); RBC Distribution Width SD 45.6 fl (35.1-43.9); Red Blood Count 4.91 M/mm3 (4.2-5.4); White Blood Count 12.4 K/mm3 (4.4-11.0)
[2018-06-18 13:53] LABS: POSITIVE COUNT NO; POSITIVE DIFFERENTIAL NO; POSITIVE MORPHOLOGY NO
--- NOTE | 2018-06-18 13:55 | ED.RN ---
PT STOPS SEIZING FOR ABOUT 30 SEC AFTER ATIVAN GIVEN. FULL BODY SEIZURE PT INCONTINENT
[2018-06-18 14:05] LABS: Albumin, Serum 3.7 g/dL (3.2-5.0); BUN 9 mg/dL (7-18); BUN/Creat Ratio 6.9 RATIO (10-20); EST Glomerular Filtration Rate 50 mL/min (>60); Est Glom Filt Rate - Afr Amer 60 mL/min (>60); Estimated Creatinine Clearance 53.15 ml/min; Glucose 244 mg/dL (74-106); Protein, Total 7.6 g/dL (6.4-8.2)
[2018-06-18 14:06] LABS: ALB/GLOB Ratio 0.9 RATIO (0.9-2.4); AST(SGOT) 17 U/L (15-37); Alanine Aminotransfer ALT/SGPT 26 U/L (13-56); Alkaline Phosphatase 124 U/L (45-117); Anion Gap 12 (5-15); Calcium,Total 8.4 mg/dL (8.5-10.1); Chloride 105 mmol/L (98-107); Globulin 3.9 g/dL (2.2-4.2); Potassium 4.1 mmol/L (3.5-5.1); Sodium Level 137 mmol/L (136-145)
[2018-06-18] MEDS: Midazolam 2 MG/2 ML Syringe IV (14:10)
[2018-06-18 14:31] LABS: Valproic Acid (Depakene) Level 5 ug/mL (50-100)
[2018-06-18 15:07] LABS: Phenytoin (Dilantin) Level 4.4 mL (10.0-20.0)
--- NOTE | 2018-06-18 16:32 | ED.VISSUMM ---
- ER Visit Summary Date of Service: 06/18/18 Chief Complaint: Seizure History of Present Illness: The patient is a 32 F who presents with seizure that began today. Patient has a history of seizure disorder and history of episodes of status epilepticus. Patient missed her dose of Keppra and gabapentin this morning. Patient had a generalized tonic-clonic seizure at home and was seizing upon arrival to the emergency department. Patient was having tonic-clonic activity of her face and upper extremities upon arrival to the emergency department. Patient is nonverbal. Physical Examination: Vital signs are blood pressure 191/95, heart rate of 128, respiratory rate of 20 and pulse oximeter of 90% on 6 L nasal cannula initially. Patient is afebrile. Patient is actively seizing. Cranial nerves II through XII are grossly intact. Neck is supple. Trachea is midline. There is no JVD noted. Heart was regular and tachycardic. Lungs are diminished bilaterally. Abdomen is soft. Bowel sounds are normal. There is no obvious tenderness. Test Results: CBC shows a leukocytosis of 12.4. Glucose was 244. Creatinine is 1.3. Dilantin level was low at 4.4. Emergency Department Course and Treatment: Patient was given 2 doses of Ativan 1 mg IV. Patient was given a dose of Keppra 500 mg IV. Patient had episodes when she stopped seizing but began seizing again prior to regaining normal level of consciousness. Patient was given a dose of Versed 2 mg IV. Patient was also given Dilantin 1000 mg IV. Patient is no longer seizing. Patient is postictal. Patient is still nonverbal. Case was discussed with the hospitalist here. Since we are unable to obtain EEG at this time, she does not feel comfortable admitting the patient here. Patient will be transferred. Patient family requested to be transferred to [facility]. Case was discussed with the intermediate school teacher there. Patient will be transferred to the intensive care unit at [facility] to the service of Dr. Magana Disposition: Transfer to [facility] Impression: Seizure with status epilepticus This note was generated with [employer] software. It may contain incorrect words, spelling, and punctuation that were not noted in review of the chart prior to signing ED Disposition - Plan for ED Patient: Disposition: [facility] Diagnosis: Seizure disorder, Status epilepticus Referrals: Schuyler Encarnacion DO [Primary Care Provider] -
--- NOTE | 2018-06-18 16:37 | ED.DCSUM_ITS ---
- ER Visit Summary Date of Service: 06/18/18 Chief Complaint: Seizure History of Present Illness: The patient is a 32 F who presents with seizure that began today. Patient has a history of seizure disorder and history of episodes of status epilepticus. Patient missed her dose of Keppra and gabapentin this morning. Patient had a generalized tonic-clonic seizure at home and was seizing upon arrival to the emergency department. Patient was having tonic-clonic activity of her face and upper extremities upon arrival to the emergency department. Patient is nonverbal. Physical Examination: Vital signs are blood pressure 191/95, heart rate of 128, respiratory rate of 20 and pulse oximeter of 90% on 6 L nasal cannula initially. Patient is afebrile. Patient is actively seizing. Cranial nerves II through XII are grossly intact. Neck is supple. Trachea is midline. There is no JVD noted. Heart was regular and tachycardic. Lungs are diminished bilaterally. Abdomen is soft. Bowel sounds are normal. There is no obvious tenderness. Test Results: CBC shows a leukocytosis of 12.4. Glucose was 244. Creatinine is 1.3. Dilantin level was low at 4.4. Emergency Department Course and Treatment: Patient was given 2 doses of Ativan 1 mg IV. Patient was given a dose of Keppra 500 mg IV. Patient had episodes when she stopped seizing but began seizing again prior to regaining normal level of consciousness. Patient was given a dose of Versed 2 mg IV. Patient was also given Dilantin 1000 mg IV. Patient is no longer seizing. Patient is postictal. Patient is still nonverbal. Case was discussed with the hospitalist here. Since we are unable to obtain EEG at this time, she does not feel comfortable admitting the patient here. Patient will be transferred. Patient family requested to be transferred to [facility]. Case was discussed with the casket trimmer there. Patient will be transferred to the intensive care unit at [facility] to the service of Dr. Magana Disposition: Transfer to [facility] Impression: Seizure with status epilepticus This note was generated with [employer] software. It may contain incorrect words, spelling, and punctuation that were not noted in review of the chart prior to signing ED Disposition - Plan for ED Patient: Disposition: [facility] Diagnosis: Seizure disorder, Status epilepticus Referrals: Schuyler Encarnacion DO [Primary Care Provider] -
== END 2018-06-18 18:45 | disposition short-term general hospital (02) ==
PROVIDERS: Emergency Provider Emergency Medicine; Family Provider Family Medicine; PCP Family Medicine
DX: G40.401 Other generalized epilepsy and epileptic syndromes, not intractable, with status epilepticus (principal); E66.9 Obesity, unspecified; Z79.899 Other long term (current) drug therapy
CPT/HCPCS: 80053; 80164; 80185; 82962; 85025; 96365; 96367; 96375; 99285; J7040; A4216

== ENCOUNTER 2018-11-05 11:00 | Emergency (ER) | payer MEDICAID, SELFPAY ==
[2018-06-18 13:30] VITALS: BMI 42.9
[2018-11-05 11:01] VITALS: BP 121/101; PULSE 140; RESP 46; TEMP 37.5; BMI 43.8
--- NOTE | 2018-11-05 11:02 | RAD_ITS ---
STUDY: X-RAY CHEST REASON FOR EXAM: Female, 33 years old. Seizure, intubation TECHNIQUE: Single AP portable view of the chest. COMPARISON: 01/16/2018 FINDINGS: Endotracheal tube with tip approximately 2 cm above the sidney. Nasogastric tube with the tip in the left upper quadrant likely in the stomach. Poor inspiration with some bibasilar atelectasis. There is no demonstrated pleural abnormality. Normal size heart. Normal mediastinum and mna. Normal visualized pulmonary arteries. Normal visualized aortic arch and descending thoracic aorta. Normal visualized thoracic spine. Normal visualized ribs, clavicles, and shoulders. There is no demonstrated abnormality of the visualized soft tissue structures of the upper abdomen. RAD/Chest 1 View (Portable) IMPRESSION: 1. Endotracheal tube with the tip approximately 2 cm above the sidney. 2. Nasogastric tube with the tip in the left upper quadrant likely coiled in the stomach.. 3. Poor inspiration with bibasilar atelectasis. Electronically Signed: Deepak Levy MD at 12:31 EDT Tel , Service support ,
[2018-11-05] MEDS: LORazepam 2 MG/ML Syringe IV (11:10)
[2018-11-05] MEDS: 0.9% Normal Saline 1,000 ML 1000 ML IV (11:11)
[2018-11-05] MEDS: Midazolam 2 MG/2 ML Syringe 2.5 MG IV ×2 (11:12→11:18)
[2018-11-05] MEDS: Midazolam 5 MG/ML Syringe IV ×2 (11:23→11:38)
[2018-11-05] MEDS: Succinylcholine Chloride 200 MG/10 ML Vial 130 MG IV (11:29)
[2018-11-05 11:35] VITALS: PULSE 109; RESP 15; O2SAT 955
[2018-11-05] MEDS: Midazolam 50 MG in 0.9% NS 100 mL CONT INF (11:39)
[2018-11-05 11:50] LABS: Absolute Lymphocyte Count 2.27 X10^3/uL (0.83-4.51); Absolute Neutrophil Count 4.2 X10^3/uL (2.0-7.7); Basophil# 0.04 X10^3/uL; Basophil% 0.5 % (0-1); Eosinophil# 0.47 X10^3/uL; Eosinophils% 6.4 % (0-5); Hematocrit 36.2 % (37-47); Hemoglobin 10.7 g/dL (12.0-15.0); Lymphocyte # 2.27 X10^3/ul (4.0); Mean Corp Hgb Conc 29.6 g/dL (32-36); Mean Corpuscular Hgb 24.6 pg (27.0-32.0); Mean Corpuscular Volume 83.2 fL (81-99); Mean Platelet Vol. 11.2 fl (6.2-12.0); Monocyte# 0.32 X10^3/uL; Monocyte% 4.4 % (0-10); NRBC Flagged by Analyzer 0 % (0-5); Neutrophil # 4.16 X10^3/uL (2.7-7.7); Neutrophil % 56.9 % (47-70); Platelet Count 327 K/mm3 (150-450); RBC Distribution Width CV 13.8 % (11.6-14.6); RBC Distribution Width SD 42.5 fl (35.1-43.9); Red Blood Count 4.35 M/mm3 (4.2-5.4); White Blood Count 7.3 K/mm3 (4.4-11.0)
[2018-11-05] MEDS: levETIRAcetam IV 1,000 MG/100 ML BAG 400 MG IV (11:56)
[2018-11-05 12:00] LABS: International Normalized Ratio 1.1; Partial Thromboplast Time 27.2 Seconds (24.1-36.2); Prothrombin Time (Protime)PT. 14.1 SECONDS (11.7-14.9)
[2018-11-05 12:01] LABS: Allen Test POS; Base Excess -5 mmol/L (-2 to +2); Bicarbonate 22.2 mmol/L (22-26); Blood Gas Specimen Type ART; FI02 100; Mode A-C; O2 Delivery Device Vent; PEEP 5; PO2 121 mmHG (75-100); RR 14; SITE R Radial; SO2 98 % (95-99); Time Given 1145; Total Carbon Dioxide 24 mmol/L; Vt 450; pCO2 53.8 mmHg (35-45); pH 7.22 (7.35-7.45)
[2018-11-05 12:07] LABS: AST(SGOT) 39 U/L (15-37); Alanine Aminotransfer ALT/SGPT 30 U/L (13-56); Alkaline Phosphatase 137 U/L (45-117); Anion Gap 6 (5-15); BUN 5 mg/dL (7-18); BUN/Creat Ratio 4.1 RATIO (10-20); Bilirubin, Direct 0.09 mg/dL (0.00-0.30); Calcium,Total 7.9 mg/dL (8.5-10.1); Chloride 106 mmol/L (98-107); Creatinine, Serum 1.23 mg/dL (0.55-1.02); EST Glomerular Filtration Rate 53 mL/min (>60); Est Glom Filt Rate - Afr Amer 64 mL/min (>60); Estimated Creatinine Clearance 62.67 ml/min; Globulin 4.3 g/dL (2.2-4.2); Glucose 233 mg/dL (74-106); Lipase 291 U/L (73-393); Potassium 4.4 mmol/L (3.5-5.1); Protein, Total 7.3 g/dL (6.4-8.2); Sodium Level 138 mmol/L (136-145)
[2018-11-05 12:14] LABS: Lactic Acid 4.8 mmol/L (0.4-2.0)
[2018-11-05 12:18] LABS: Internal QC Validated? YES +Cl - CLEAR BKGD; Pregnancy, Serum, hCG Quali. NEGATIVE Negative
--- NOTE | 2018-11-05 12:22 | ED.DCSUM_ITS ---
- ER Visit Summary Date of Service: 11/05/18 Chief Complaint: Seizure History of Present Illness: The patient is a 33 F who has a known long-standing seizure disorder. Patient reportedly missed her medications last evening. She took them when she woke up this morning. 911 call was placed at approximately 1030 this morning by the when she started to seize. EMS arrived and administered 5 mg of intranasal Versed. They note no change in seizure activity. They are unable to establish IV. Physical Examination: Patient is hypertensive tachycardic. She is about 72% on facial mask. Gen: Well-nourished well-developed morbidly obese Head: Normocephalic atraumatic Eyes: Perrl ENT: TMs clear no rhinorrhea moist mucous membranes pooling secretions Neck: Supple no lymphadenopathy no JVD CVS: Regular rate tachycardic rhythm no murmurs normal S1-S2 Respiratory: No distress rhonchorous lung sounds chest nontender Abdomen: Soft nondistended normal bowel sounds no masses Back: Atraumatic Extremity: Nontender no edema Skin: Normal color no rash Neuro: Patient is actively seizing. She has no airway control. She is being suctioned. Psych: Able to assess Test Results: Pending Emergency Department Course and Treatment: Initially able to start a left shoulder IV. She received a milligrams of Ativan and then 2.5 mg of Versed followed by second 2.5 mg of Versed. No change in seizure activity was noted. The left shoulder IV became nonfunctional. It was clear the patient would need to be intubated so I placed a right tibial IO under the normal fashion. Placement was confirmed the patient received additional 5 mg of Versed. She required succinylcholine to adequately open her airway. A 7.5 endotracheal tube was passed without any difficulty and secured. Placement was confirmed. Post intubation x-ray was done and we pulled the endotracheal tube 2 cm back. A right femoral triple-lumen central line was placed under sterile ultrasound- guided conditions using modified Salinger technique. This was obtained on the first attempt without any difficulty. The line was secured with suture and the line approved for use. patient was started on a Versed drip. She also received a gram of Keppra. The patient has required transfer to [facility] numerous times in the past. Patient continues to seize and transportation to [facility] has been arranged. She is been accepted by Dr. Benítez to the ICU. Impression: 1. Status epilepticus 2. Intubation by physician 3. Right femoral central line by physician 4. Critical care time 39 minutes This note was generated with [employer] dictation software. It may contain incorrect words, spelling, and punctuation that were not noted in review of the chart prior to signing ED Disposition - Plan for ED Patient: Referrals: Schuyler Encarnacion DO [Primary Care Provider] -
[2018-11-05 12:26] LABS: Mucous, Urine 0 SEEN /hpf (<or=2+); White Blood Cells 0 SEEN /hpf (0-5)
[2018-11-05 12:33] LABS: Color, Urine Yellow (Yellow); Glucose, Dipstick Normal (Normal); Ketone-Dipstick Negative (Negative); Leukocyte Esterase-Dipstick Negative /ul (Negative); Nitrite-Dipstick Negative (Negative); Occult Blood-Urine 25 /ul (Negative); Protein-Dipstick 15 mg/dl (Negative); Specific Gravity, Urine 1.015 (1.002-1.030); Urine Bilirubin Dipstick Negative (Negative); Urine Clarity Sl. Cloudy (Clear); Urine Urobilinogen Normal (Normal); Urine pH 6.5 (5.0 - 8.0)
[2018-11-05 12:46] LABS: Bacteria 1+ /hpf (None Seen); Red Blood Cells-Urine 0-5 SEEN /hpf (0-5); Squamous Epithelial Cells - UA 0-5 SEEN /hpf (5-10)
[2018-11-05 12:53] LABS: Alcohol, Blood (Medical)-Serum < 3.0 mg/dL
[2018-11-05 12:53] LABS: Amphetamine Urine VISTA NEGATIVE (<1000 ng/mL); Barbiturate Urine VISTA NEGATIVE (< 200 ng/mL); Benzodiazepine Urine VISTA POSITIVE (< 200 ng/mL); Cocaine Urine VISTA NEGATIVE (< 300 ng/mL); Ecstacy Urine VISTA NEGATIVE (< 500 ng/mL); Methadone Urine VISTA NEGATIVE (< 300 ng/mL); PCP Urine VISTA NEGATIVE (< 25 ng/mL); THC Urine VISTA NEGATIVE (< 50 ng/mL); Vista UDS pH Range 6
[2018-11-05 13:04] LABS: Phenytoin (Dilantin) Level 4.6 mL (10.0-20.0)
[2018-11-05 15:46] LABS: Reflex Lactate? Y
== END 2018-11-05 12:40 | disposition short-term general hospital (02) ==
PROVIDERS: Emergency Provider Emergency Medicine; Family Provider Family Medicine; PCP Family Medicine
DX: G40.901 Epilepsy, unspecified, not intractable, with status epilepticus (principal); E66.01 Morbid (severe) obesity due to excess calories; Z79.899 Other long term (current) drug therapy
CPT/HCPCS: 36573; 31500; 31720; 36556; 36600; 71045; 80048; 80076; 80185; 80307; 80320; 81001; 82803; 83605; 83690; 84484; 84703; 85025; 85610; 85730; 94002; 96365; 96366; 96368; 96375; 99251; 99285; J7030; J7040; A4216; C1751; G0463; G0480; J0330

== ENCOUNTER 2018-12-21 13:36 | Emergency (ER) | payer MEDICAID, SELFPAY ==
[2018-12-21 13:39] VITALS: BP 123/81; PULSE 90; RESP 20; TEMP 36.7; O2SAT 95; BMI 44.0
--- NOTE | 2018-12-21 14:20 | RAD_ITS ---
STUDY: X-RAY CHEST REASON FOR EXAM: Female, 33 years old. 2 day history of cough. TECHNIQUE: PA and lateral views of the chest. COMPARISON: Comparison is made with prior study dated November 05, 2018. FINDINGS: The lungs are clear and expanded. Scattered calcified granulomas. There is no demonstrated pleural abnormality. Normal size heart. Normal mediastinum and man. Normal visualized pulmonary arteries. Normal visualized aortic arch and descending thoracic aorta. There is a dextroscoliosis of the thoracic spine. Normal visualized ribs, clavicles, and shoulders. There is no demonstrated abnormality of the visualized soft tissue structures of the upper abdomen. RAD/Chest PA and Lateral IMPRESSION: Normal x-ray examination of the chest. Electronically Signed: Bartolo Verma, at 14:58 EDT , Service support ,
--- NOTE | 2018-12-21 15:04 | ED.VIS.GEN ---
History of Present Illness Chief Complaint: Cough Narrative: 33-year-old female presents with productive cough for the past 2 days. Feels similar to previous bronchitis. She has also been wheezing. She denies recent travel or immobilization. Denies lower extremity pain or swelling. She has no history of DVT or PE. She also has congestion, rhinorrhea, but no fever. No neck pain or back pain. No fever body aches. Current severity is mild. Onset was gradual. Past Medical History - Allergies and Home Meds Allergies/Adverse Reactions: Allergies naproxen Allergy (Verified 12/21/18 13:39) [facility] Primary Care Physician: Schuyler Encarnacion DO [Primary Care Provider] - Prior records reviewed: Yes Surgical History: noncontributory Smoking Status: Current every day smoker - Family History Maternal Family History: Reports: No pertinent history, - - Unable to get any family history from the patient as she is intubated and sedated. Review of Systems General: Denies: Chills, Fever, Sweats Eyes: Denies: Visual changes - bilaterally, Diplopia ENT: Reports: Rhinorrhea. Denies: Sore throat Cardiovascular: Denies: Chest pain, Palpitations Respiratory: Reports: Cough. Denies: Dyspnea, Dyspnea on exertion Gastrointestinal: Denies: Abdominal pain, Nausea, Vomiting, Diarrhea, Melena, Hematochezia Genitourinary: Denies: Dysuria, Hematuria, Frequency Musculoskeletal: Denies: Back pain, Extremity Pain Skin: Denies: Rash, Wounds Neurological: Denies: Headache, Weakness, Numbness Physical Exam Vital Signs/Narrative: Vital Signs Temp Pulse Resp BP Pulse Ox 12/21/18 13:39 98.1 F 90 20 H 123/81 H 95 General: Well nourished, Well developed, No Acute Distress Head: Normocephalic, Atraumatic Eyes: Perrl, EOMI ENT: Moist mucous membranes, Nasal congestion Neck: Supple, Nontender Cardiovascular: Regular rate, Regular rhythm, No murmurs Respiratory: No distress, CTA bilaterally, Chest nontender Abdomen: Soft, Nontender, Nondistended, Normal bowel sounds Back: Nontender, Normal Inspection Extremities: Nontender, No edema Skin: Normal color, No rash Neurological: Alert, Oriented x3, Cranial nerves II-XII grossly intact, Normal Strength, Normal Sensation Psychological: Normal affect, Normal Mood Diagnostic/Tx/Re-eval - Medical Decision Making 2 view chest x-ray is negative for infiltrate. She is not in distress. She does have slight wheezing but it cleared with a DuoNeb here. I do not feel antibiotics are indicated since she has only had symptoms for 2 days and has a negative chest x-ray. No fever and pulse oximetry is normal. I will treat her with prednisone and an inhaler. She will follow-up closely with her doctor and return here if worse. ED Disposition - Plan for ED Patient: Disposition: Home or Assisted Living Diagnosis: Bronchitis Instructions: BRONCHITIS, No Antibiotic (Adult) Prescriptions: Prednisone [Deltasone] 40 mg PO DAILY #10 tablet Albuterol Inhaler [Ventolin Hfa] 1 - 2 puff INHALATION Q4H PRN PRN #1 inhaler PRN Reason: Wheezing Referrals: Schuyler Encarnacion DO [Primary Care Provider] -
[2018-12-21 16:03] VITALS: PULSE 82; RESP 22
[2018-12-21] MEDS: Ipratropium/Albuterol Sulfate 3 ML AMPUL.NEB INHALATION (16:03)
== END 2018-12-21 16:52 | disposition home or self-care (01) ==
PROVIDERS: Emergency Provider Emergency Medicine; Family Provider Family Medicine; PCP Family Medicine
DX: J40 Bronchitis, not specified as acute or chronic (principal); F17.200 Nicotine dependence, unspecified, uncomplicated
CPT/HCPCS: 71046; 94640; 99282

== ENCOUNTER 2019-02-22 14:18 | Emergency (ER) | payer MEDICAID, SELFPAY ==
[2019-02-22] VITALS (7 sets, daily range): BP systolic 133–151; BP diastolic 69–85; PULSE 72–90; RESP 16–20; TEMP 36.7; O2SAT 96–98; BMI 88.0
--- NOTE | 2019-02-22 14:50 | ED.DCSUM_ITS ---
- ER Visit Summary Date of Service: 02/22/19 Chief Complaint: Weakness History of Present Illness: The patient is a 33 F who presents with weakness that became worse today. Patient states she feels weak all over. Patient states she feels like she might pass out. Patient states this is worse with standing. Patient states she feels tired. Patient denies any nausea or vomiting. Patient does have a history of prior back pain from scoliosis. Patient admits to mild headache. Patient denies any fevers or chills. Patient denies any chest pain or shortness of breath. Physical Examination: Vital signs are stable. Patient is afebrile. Patient is in no acute distress. Oral mucosa is pink and moist. Neck is supple. Trachea is midline. There is no JVD. Heart was regular rate and rhythm. Lungs are clear and equal bilaterally. Abdomen is soft. Bowel sounds are normal. There is no tenderness. Cranial nerves II through XII are intact. There are no focal motor or sensory deficits noted. Test Results: CBC, basic metabolic profile, urine hCG and urinalysis were ordered. Urinalysis shows leukocyte esterase of 100. PA lateral chest x-ray was ordered. Emergency Department Course and Treatment: Orthostatic vital signs were obtained and were normal. Patient was ordered IV fluids. Care of this patient was turned over to the oncoming physician pending lab results. Disposition: Pending, likely discharge Impression: Viral illness This note was generated with [employer] dictation software. It may contain incorrect words, spelling, and punctuation that were not noted in review of the chart prior to signing ED Disposition - Plan for ED Patient: Referrals: Schuyler Encarnacion DO [Primary Care Provider] -
[2019-02-22 15:25] LABS: Mucous, Urine 0 SEEN /hpf (<or=2+); Red Blood Cells-Urine 0 SEEN /hpf (0-5)
[2019-02-22 16:02] LABS: Color, Urine Yellow (Yellow); Glucose, Dipstick Normal (Normal); Ketone-Dipstick Negative (Negative); Leukocyte Esterase-Dipstick 100 /ul (Negative); Nitrite-Dipstick Negative (Negative); Occult Blood-Urine Negative /ul (Negative); Protein-Dipstick Negative (Negative); Urine Bilirubin Dipstick Negative (Negative); Urine Clarity Sl. Cloudy (Clear); Urine Urobilinogen Normal (Normal)
[2019-02-22] MEDS: 0.9% Normal Saline 1,000 ML 1000 ML IV (16:15)
[2019-02-22 16:25] LABS: Absolute Lymphocyte Count 1.37 X10^3/uL (0.83-4.51); Absolute Neutrophil Count 4.9 X10^3/uL (2.0-7.7); Basophil# 0.03 X10^3/uL; Basophil% 0.4 % (0-1); Eosinophil# 0.15 X10^3/uL; Eosinophils% 2.1 % (0-5); Hematocrit 37.1 % (37-47); Lymphocyte # 1.37 X10^3/ul (4.0); Lymphocyte % 19.6 % (19-41); Mean Corp Hgb Conc 29.6 g/dL (32-36); Mean Corpuscular Hgb 22.4 pg (27.0-32.0); Mean Corpuscular Volume 75.7 fL (81-99); Mean Platelet Vol. 11.2 fl (6.2-12.0); Monocyte# 0.49 X10^3/uL; NRBC Flagged by Analyzer 0 % (0-5); Neutrophil # 4.94 X10^3/uL (2.7-7.7); Neutrophil % 70.6 % (47-70); Platelet Count 302 K/mm3 (150-450); RBC Distribution Width CV 16.3 % (11.6-14.6); RBC Distribution Width SD 44.4 fl (35.1-43.9)
[2019-02-22 16:42] LABS: Bacteria 1+ /hpf (None Seen); Squamous Epithelial Cells - UA 0-5 SEEN /hpf (5-10); White Blood Cells 0-5 SEEN /hpf (0-5)
[2019-02-22 16:52] LABS: Anion Gap 6 (5-15); BUN 5 mg/dL (7-18); BUN/Creat Ratio 5.8 RATIO (10-20); Calcium,Total 8.5 mg/dL (8.5-10.1); Chloride 106 mmol/L (98-107); Creatinine, Serum 0.87 mg/dL (0.55-1.02); EST Glomerular Filtration Rate 79 mL/min (>60); Est Glom Filt Rate - Afr Amer 96 mL/min (>60); Estimated Creatinine Clearance 81.99 ml/min; Glucose 108 mg/dL (74-106); Potassium 4.7 mmol/L (3.5-5.1); Sodium Level 136 mmol/L (136-145)
--- NOTE | 2019-02-22 17:15 | RAD_ITS ---
STUDY: X-RAY CHEST REASON FOR EXAM: Female, 33 years old. Dizziness and weakness. TECHNIQUE: Frontal and lateral views of the chest. COMPARISON: December 21, 2018 FINDINGS: The lungs are clear and expanded. There is no demonstrated pleural abnormality. Normal size heart. Normal mediastinum and man. Normal visualized pulmonary arteries. Normal visualized aortic arch and descending thoracic aorta. Normal visualized thoracic spine. Normal visualized ribs, clavicles, and shoulders. There is no demonstrated abnormality of the visualized soft tissue structures of the upper abdomen. RAD/Chest PA and Lateral IMPRESSION: Normal x-ray examination of the chest. Electronically Signed: Bud Fowler MD at 17:41 EST , Service support ,
[2019-02-22] MEDS: Acetaminophen 500 MG Tablet 1000 MG PO (18:06)
--- NOTE | 2019-02-22 18:39 | ED.DCSUM_ITS ---
- ER Visit Summary Date of Service: 02/22/19 Chief Complaint: [] History of Present Illness: The patient is a 33 F [] Physical Examination: [] Test Results: Clinical Impression(s) from Imaging Studies Chest X-Ray 02/22/19 17:15 IMPRESSION: Normal x-ray examination of the chest. Electronically Signed: Bud Fowler MD at 17:41 EST , Service support , Laboratory Data 02/22/19 02/22/19 02/22/19 15:10 16:10 16:10 WBC 7.0 RBC 4.90 Hgb 11.0 L Hct 37.1 MCV 75.7 L MCH 22.4 L MCHC 29.6 L RDW Std Deviation 44.4 H RDW Coeff of Enedina 16.3 H Plt Count 302 MPV 11.2 Immature Gran % (Auto) 0.300 Neut % (Auto) 70.6 H Lymph % (Auto) 19.6 [place] % (Auto) 7.0 Eos % (Auto) 2.1 Baso % (Auto) 0.4 Absolute Neuts (auto) 4.9 Absolute Lymphs (auto) 1.37 Nucleated RBC % 0 Sodium 136 Potassium 4.7 Chloride 106 Carbon Dioxide 24.0 Anion Gap 6 BUN 5 L Creatinine 0.87 Estim Creat Clear Calc 81.99 Est GFR (MDRD) Af Amer 96 Est GFR (MDRD) Non-Af 79 BUN/Creatinine Ratio 5.8 L Glucose 108 H Calcium 8.5 Urine Color Yellow Urine Clarity Sl. Cloudy Urine pH 8.0 Ur Specific [place] 1.010 Urine Protein Negative Urine Glucose (UA) Normal Urine Ketones Negative Urine Occult Blood Negative Urine Nitrite Negative Urine Bilirubin Negative Urine Urobilinogen Normal Ur Leukocyte Esterase 100 H Urine RBC 0 SEEN Urine WBC 0-5 SEEN Ur Squamous Epith Cells 0-5 SEEN Urine Bacteria 1+ Urine Mucus 0 SEEN Emergency Department Course and Treatment: Signed out to me for final disposition and following of the lab work by Dr. Rao. Lab work is grossly normal. Exact cause of her symptoms is not clear. She is given Tylenol in the emergency room she is complained of a headache. She is given IV fluids. She be discharged home to follow-up with her PCP. Treatment Plan: Follow-up with PCP Disposition: Discharge home Impression: Generalized weakness, unclear cause This note was generated with [employer] dictation software. It may contain incorrect words, spelling, and punctuation that were not noted in review of the chart prior to signing ED Disposition - Plan for ED Patient: Disposition: Home or Assisted Living Diagnosis: Weakness Instructions: WEAKNESS, Unk Cause Referrals: Schuyler Encarnacion DO [Primary Care Provider] - Additional Instructions: Your work-up here today was normal. The exact cause of your weakness is not clear. You are safe to go home to follow-up with your primary care doctor. Is possible you have a viral illness that caused you to feel this way. Please drink plenty of fluids at home. Take Tylenol as needed for symptoms.
== END 2019-02-22 18:48 | disposition home or self-care (01) ==
PROVIDERS: Emergency Provider Emergency Medicine; Family Provider Family Medicine; PCP Family Medicine
DX: R53.1 Weakness (principal); B34.9 Viral infection, unspecified; E66.9 Obesity, unspecified; I10 Essential (primary) hypertension; G40.909 Epilepsy, unspecified, not intractable, without status epilepticus; F32.9 Major depressive disorder, single episode, unspecified; Z79.899 Other long term (current) drug therapy
CPT/HCPCS: 71046; 80048; 81001; 85025; 87804; 96360; 96361; 99285; J7030; A4216

== ENCOUNTER 2019-02-22 20:40 | Emergency (ER) | payer MEDICAID, SELFPAY ==
[2019-02-22] VITALS (14 sets, daily range): BP systolic 100–153; BP diastolic 61–95; PULSE 86–138; RESP 14–31; TEMP 36.2–37; O2SAT 92–100; BMI 88.0; BMI 52.0
--- NOTE | 2019-02-22 20:45 | ED.RN ---
PATIENT ACTUALLY ARRIVED AT 2044 NOT 2040 SHE WAS ACCIDENTLY PUT INTO THE SYSTEM PRIOR TO THE SQUAD GETTING THERE. REGISTRATION IS AWARE AND WAS UNABLE TO CHANGE THIS TIME.
[2019-02-22] MEDS: LORazepam 2 MG/ML Syringe IV (20:49)
[2019-02-22] MEDS: Rocuronium Bromide 50 MG/5 ML Vial 100 MG IV (20:53)
--- NOTE | 2019-02-22 20:58 | CT_ITS ---
HISTORY: Seizure. Intubated. Disorder. Hypertension. Stroke. TECHNIQUE: Multiple axial images were obtained of the brain without intravenous contrast. A radiation dose optimization technique was used for this scan. COMPARISON: Of the 46 previous radiographic exams on PACS at this institution on this patient, the most recent CT scan of the brain is from January 16, 2018 FINDINGS: # of images incl. paperwork: 242 Visualized portions of the paranasal sinuses and mastoid air cells are free of disease. Normal right cerebral hemisphere brain volume with atrophy to the left cerebral hemisphere brain volume is consistent with the diagnosis of cerebral hemiatrophy. This is a chronic finding in this patient. The oldest CT scan of the brain available for this patient is from March 16, 2007, and this asymmetry of cerebral cortex volume was present at that time as well.. Nolan-white differentiation is preserved. No hydrocephalus. No acute ischemia. No acute intracranial hemorrhage. CT/Brain/Head without Contrast IMPRESSION: Chronic left cerebral hemiatrophy. No acute disease perceived ASPECT 10. Individualized dose optimization techniques were used for this CT. at 2241 Reported and signed by: Roldan Sánchez MD Electronically Signed: Roldan Sánchez MD at 22:40 EST Tel , Service support ,
[2019-02-22 21:01] LABS: Bedside Glucose 212 mg/dL (70-110)
--- NOTE | 2019-02-22 21:02 | ED.VIS.GEN ---
History of Present Illness Chief Complaint: Seizure Informant: [employer] by: - - Seizure Onset: Today Context: Sudden Onset Narrative: Patient is a 33-year-old female with history of seizures and status epilepticus presenting with seizure-like activity. EMS was called because patient was seizing. They gave her 5 of intranasal Versed and then 5 of IO Versed. Patient continued to seize. Patient does have a history of status epilepticus requiring intubation. Patient was seen in the ER earlier today for generalized weakness and feeling lightheaded. Work-up was largely negative that time but she had been discharged home. She not complained of any seizure-like activity at that time. Patient receives her neurologic care through [facility]. Past Medical History - Allergies and Home Meds Allergies/Adverse Reactions: Allergies naproxen Allergy (Verified 02/22/19 20:41) Hives Primary Care Physician: Schuyler Encarnacion DO [Primary Care Provider] - Past Medical History: - - History of aspiration pneumonia, LULY, seizure disorder, status epilepticus, hypertension, depression Surgical History: noncontributory Lives: Spouse/ Significant Other Smoking Status: Current some day smoker - Family History Maternal Family History: Reports: No pertinent history, - - Unable to get any family history from the patient as she is intubated and sedated. Review of Systems ROS: Unable to Obtain - Secondary to mental status change from seizure activity Physical Exam Vital Signs/Narrative: Vital Signs Temp Pulse Resp BP Pulse Ox 02/22/19 21:01 129 H 22 H 145/85 H 99 02/22/19 20:46 98.5 F 138 H 31 H 153/94 H 92 Inital Vital Signs reviewed: Yes General: Obese, Acute Distress Head: Normocephalic, Atraumatic Eyes: - - Patient has repetitive eye motions minimally reactive pupils ENT: Moist mucous membranes, TM's clear Neck: Supple, No JVD Cardiovascular: Regular rhythm, No murmurs, Tachycardia Respiratory: - - Sonorous respirations, coarse breath sounds throughout Abdomen: Soft, Nontender, Nondistended Extremities: Nontender, No edema Skin: Normal color, No rash Neurological: - - Patient is actively seizing with repetitive tonic-clonic movements most pronounced on her left side and left gaze deviation Diagnostic/Tx/Re-eval Chest X-Ray - ED: 1 View, Read by ED Physician, Read by Radiologist, - - Intubated Clinical Impression(s) from Imaging Studies Brain CT 02/22/19 20:58 IMPRESSION: Chronic left cerebral hemiatrophy. No acute disease perceived ASPECT 10. Individualized dose optimization techniques were used for this CT. at 2241 Reported and signed by: Roldan Sánchez MD Electronically Signed: Roldan Sánchez MD at 22:40 EST Tel , Service support , Chest X-Ray 02/22/19 21:10 IMPRESSION: Adequate position of endotracheal and esophagogastric tubes. Pulmonary hypoexpansion. Bilateral perihilar airspace disease much more severe on the left. This may represent atelectasis, however, could also be pneumonia.. at 2154 Reported and signed by: Roldan Sánchez MD Electronically Signed: Roldan Sánchez MD at 21:53 EST Tel , Service support , Laboratory Data 02/22/19 02/22/19 02/22/19 20:48 21:30 21:30 WBC 9.6 RBC 4.74 Hgb 10.6 L Hct 36.2 L MCV 76.4 L MCH 22.4 L MCHC 29.3 L RDW Std Deviation 44.2 H RDW Coeff of Enedina 16.0 H Plt Count 283 MPV 10.8 Immature Gran % (Auto) 0.400 Neut % (Auto) 80.9 H Lymph % (Auto) 11.1 L [place] % (Auto) 6.3 Eos % (Auto) 1.0 Baso % (Auto) 0.3 Absolute Neuts (auto) 7.8 H Absolute Lymphs (auto) 1.06 Nucleated RBC % 0 Sodium 138 Potassium 3.5 Chloride 107 Carbon Dioxide 21.0 Anion Gap 10 BUN 7 Creatinine 1.04 H Estim Creat Clear Calc 63.05 Est GFR (MDRD) Af Amer 78 Est GFR (MDRD) Non-Af 64 BUN/Creatinine Ratio 6.7 L Glucose 150 H Lactic Acid Calcium 8.0 L Total Bilirubin 0.20 AST 19 ALT 20 Alkaline Phosphatase 120 H Total Protein 7.1 Albumin 3.2 Globulin 3.9 Albumin/Globulin Ratio 0.8 L Phenytoin POC Glucose 212 H 02/22/19 02/22/19 21:30 21:30 WBC RBC Hgb Hct MCV MCH MCHC RDW Std Deviation RDW Coeff of Enedina Plt Count MPV Immature Gran % (Auto) Neut % (Auto) Lymph % (Auto) [place] % (Auto) Eos % (Auto) Baso % (Auto) Absolute Neuts (auto) Absolute Lymphs (auto) Nucleated RBC % Sodium Potassium Chloride Carbon Dioxide Anion Gap BUN Creatinine Estim Creat Clear Calc Est GFR (MDRD) Af Amer Est GFR (MDRD) Non-Af BUN/Creatinine Ratio Glucose Lactic Acid 2.8 H* Calcium Total Bilirubin AST ALT Alkaline Phosphatase Total Protein Albumin Globulin Albumin/Globulin Ratio Phenytoin 4.1 L POC Glucose - Medical Decision Making Arrives actively seizing. She is already received 10 mg of Versed. She is given another 2 of IO Ativan. Patient is sonorous respirations is not protecting her airway. In addition she continues to seize. Decision was made to intubate for airway protection. Patient is induced with etomidate and rocuronium. See procedure note for intubation. Patient started on a propofol drip. She is loaded with phenytoin 1 g. Patient does normally receive her neurologic care at [facility]. They do not have any beds available. Family then request transfer to [facility]. Discussed with Dr. Reyes, who accepts the admission. For transfer patient be switched to Versed drip from propofol because of protocols from the transfer company. Patient does start to have some spontaneous movement of all extremities while in the emergency room. She does not have further seizure-like activity noted. Chest x-ray obtained after intubation shows adequate placement of lines and tubes however does show questionable atelectasis versus infiltrate. As patient had normal chest x-ray a couple hours ago I do not suspect she suddenly developed a pneumonia. Would not start antibiotics and recommend repeating tomorrow or later today. Patient has minimal O2 demands in the emergency room. Her phenytoin level is found to be subtherapeutic. Patient's lactate is mildly elevated but I suspect this is likely from her seizure activity and not infection. - Critical Care Time Critical care time (excluding procedures): 30-74 minutes - 34 minutes- frequent bedside reevaluation for status epilepticus, titration of medications arrangement of critical care transfer. Procedures Procedure(s): Intubation. Patient monitored with continuous pulse ox and telemetry. Sedated and paralyzed with etomidate and rocuronium respectively. After adequate induction, 4-0 Mac blade used for direct visualization. 7.5 tube passed through the cords. Patient had bilateral breath sounds, condensation of the tube and color change of and capnography. Chest x-ray confirmed proper placement. ED Disposition - Plan for ED Patient: Disposition: [facility] Diagnosis: Status epilepticus Referrals: Schuyler Encarnacion DO [Primary Care Provider] -
[2019-02-22] MEDS: 0.9% Normal Saline 1,000 ML 1000 ML IV (21:05)
[2019-02-22] MEDS: Propofol 10MG/Ml 1,000 MG/100 ML Bottle 8 MG CONT INF (21:05)
--- NOTE | 2019-02-22 21:10 | RAD_ITS ---
HISTORY: Seizure. ETT and OG placement EXAM: XR Chest 1 View: COMPARISON: February 22, 2019 FINDINGS: # of images incl. paperwork: 1 The endotracheal tube terminates superimposed over the trachea, below the level of the clavicular heads, and above the sidney. Esophagogastric tube's tip is below the diaphragm. Heart is not enlarged. Cholecystectomy clips. Pudding hypoexpansion. Left perihilar and left lung airspace disease is new Pulmonary vascularity is distinct. No effusions. RAD/Chest 1 View (Portable) IMPRESSION: Adequate position of endotracheal and esophagogastric tubes. Pulmonary hypoexpansion. Bilateral perihilar airspace disease much more severe on the left. This may represent atelectasis, however, could also be pneumonia.. at 0264 Reported and signed by: Roldan Sánchez MD Electronically Signed: Roldan Sánchez MD at 21:53 EST Tel , Service support ,
--- NOTE | 2019-02-22 21:19 | ED.RN ---
SPOKE WITH REGARDING WHERE HE WOULD LIKE HER TRANSFERRED. HE STATES THE FAMILY PREFERENCE IS FOR HER TO BE TRANSFERRED TO [facility]. THIS INFORMATION WAS RELAYED TO DR. MURILLO
--- NOTE | 2019-02-22 21:46 | ED.RN ---
PATIENT IS INTUBATED AND DEEPLY SEDATED AT THIS TIME. VITAL SIGNS ARE STABLE.
[2019-02-22 21:48] LABS: Absolute Lymphocyte Count 1.06 X10^3/uL (0.83-4.51); Absolute Neutrophil Count 7.8 X10^3/uL (2.0-7.7); Basophil# 0.03 X10^3/uL; Basophil% 0.3 % (0-1); Hematocrit 36.2 % (37-47); Hemoglobin 10.6 g/dL (12.0-15.0); Lymphocyte # 1.06 X10^3/ul (4.0); Lymphocyte % 11.1 % (19-41); Mean Corp Hgb Conc 29.3 g/dL (32-36); Mean Corpuscular Hgb 22.4 pg (27.0-32.0); Mean Corpuscular Volume 76.4 fL (81-99); Mean Platelet Vol. 10.8 fl (6.2-12.0); Monocyte% 6.3 % (0-10); NRBC Flagged by Analyzer 0 % (0-5); Neutrophil # 7.76 X10^3/uL (2.7-7.7); Neutrophil % 80.9 % (47-70); Platelet Count 283 K/mm3 (150-450); RBC Distribution Width SD 44.2 fl (35.1-43.9); Red Blood Count 4.74 M/mm3 (4.2-5.4); White Blood Count 9.6 K/mm3 (4.4-11.0)
[2019-02-22 22:23] LABS: ALB/GLOB Ratio 0.8 RATIO (0.9-2.4); AST(SGOT) 19 U/L (15-37); Alanine Aminotransfer ALT/SGPT 20 U/L (13-56); Albumin, Serum 3.2 g/dL (3.2-5.0); Alkaline Phosphatase 120 U/L (45-117); BUN 7 mg/dL (7-18); BUN/Creat Ratio 6.7 RATIO (10-20); Chloride 107 mmol/L (98-107); Creatinine, Serum 1.04 mg/dL (0.55-1.02); EST Glomerular Filtration Rate 64 mL/min (>60); Est Glom Filt Rate - Afr Amer 78 mL/min (>60); Estimated Creatinine Clearance 63.05 ml/min; Globulin 3.9 g/dL (2.2-4.2); Glucose 150 mg/dL (74-106); Potassium 3.5 mmol/L (3.5-5.1); Protein, Total 7.1 g/dL (6.4-8.2); Sodium Level 138 mmol/L (136-145)
[2019-02-22 22:24] LABS: Anion Gap 10 (5-15); Phenytoin (Dilantin) Level 4.1 mL (10.0-20.0)
[2019-02-22 22:31] LABS: Lactic Acid 2.8 mmol/L (0.4-1.9)
--- NOTE | 2019-02-22 22:45 | ED.RN ---
PATIENT'S TEMPERATURE IS 97.1 AND WARM BLANKETS ARE APPLIED.
--- NOTE | 2019-02-22 23:09 | ED.RN ---
SEDATION MEDICATION CHANGED FROM PROPOFOL TO VERSED [facility] IS NOT ABLE TO TAKE A PATIENT ON PROPOFOL.
--- NOTE | 2019-02-22 23:53 | ED.RN ---
PATIENT WAS COUGHING SO THIS NURSE ORAL SUCTIONED HER WITH A YANKAUER . [facility] AT THE BEDSIDE GETTING THE PATIENT. REPORT GIVEN TO BY THIS NURSE TO THEM.
--- NOTE | 2019-02-23 00:06 | ED.RN ---
PATIENT COMPLETELY WOKE UP WITH MOVED OVER TO TRANSPORTS COT. VERSED INCREASED TO 5MG/HR.
--- NOTE | 2019-02-23 00:27 | ED.RN ---
THIS NURSE CALLED PATIENT'S MIKAYLA AND TOLD HIM THAT PATIENT LEFT TO GO TO [facility]. I GAVE HIM THE PHONE NUMBER AND ROOM NUMBER.
[2019-02-23 01:44] LABS: Reflex Lactate? Y
== END 2019-02-23 00:15 | disposition short-term general hospital (02) ==
PROVIDERS: Emergency Provider Emergency Medicine; Family Provider Family Medicine; PCP Family Medicine
DX: G40.901 Epilepsy, unspecified, not intractable, with status epilepticus (principal); R53.1 Weakness; B34.9 Viral infection, unspecified; E66.9 Obesity, unspecified; I10 Essential (primary) hypertension; F32.9 Major depressive disorder, single episode, unspecified; Z79.899 Other long term (current) drug therapy; F17.200 Nicotine dependence, unspecified, uncomplicated
CPT/HCPCS: 31500; 36415; 51702; 70450; 71045; 71046; 80048; 80053; 80185; 81001; 82962; 83605; 85025; 87804; 92950; 94002; 96360; 96361; 96365; 96366; 96367; 96368; 96375; 99251; 99285; J7030; A4216; G0463

== ENCOUNTER 2019-03-17 13:14 | Emergency (ER) | payer MEDICAID, SELFPAY ==
[2019-02-22 20:46] VITALS: BMI 52.0
[2019-03-17 13:15] VITALS: BP 148/85; PULSE 87; RESP 16; TEMP 36.1; O2SAT 100; BMI 44.8
--- NOTE | 2019-03-17 13:31 | ED.VIS.EYE ---
History of Present Illness <Lynette Quiroga - Last Filed: 03/17/19 13:50> Informant: Patient Location: Right Eye Onset: Yesterday Context: Gradual Onset Timing: Continuous Current Severity: Mild Maximum Severity: Mild Worsened by: nothing Relieved by: nothing Associated Symptoms - Eyes: Redness History of injury: No Visual correction: Glasses Narrative: 33-year-old female presents to the emergency department with right eye pain. She noticed it yesterday. She is concerned that she has a stye. It is on her upper eyelid. She wears glasses for visual correction but not contact lenses. She has no foreign body sensation redness or drainage matting, or any decreased vision. No inciting injury or trauma. No facial redness or swelling. No headache. She is not lightheaded or dizzy. Denies facial rash. Patient does not have any symptoms in her left eye. Prior similar symptoms: No Recent Illness/Hospitalization: No <EmilyGalen - Last Filed: 03/17/19 13:59> Chief Complaint: Eye Problem Past Medical History <Lynette Quiroga - Last Filed: 03/17/19 13:50> Prior records reviewed: Yes Past Medical History: - - seizure Surgical History: noncontributory Lives: With Family Smoking Status: Current some day smoker Alcohol: None Drugs: None - Family History Maternal Family History: Reports: No pertinent history, - - Unable to get any family history from the patient as she is intubated and sedated. <Galen Diaz - Last Filed: 03/17/19 13:59> - Allergies and Home Meds Allergies/Adverse Reactions: Allergies naproxen Allergy (Verified 03/17/19 13:16) Hives Primary Care Physician: Schuyler Encarnacion DO [Primary Care Provider] - Review of Systems All systems negative except as indicated General: Denies: Chills, Fever Eyes: Denies: Visual changes - bilaterally, Blurred Vision - bilaterally ENT: Denies: Rhinorrhea, Sore throat Cardiovascular: Denies: Chest pain, Palpitations, Heart racing Respiratory: Denies: Dyspnea, Cough, Sputum Gastrointestinal: Denies: Abdominal pain, Nausea, Vomiting, Diarrhea Genitourinary: Denies: Dysuria, Hematuria, Frequency Musculoskeletal: Denies: Myalgias, Arthralgias, Neck pain, Back pain Skin: Denies: Rash, Abscess Neurological: Denies: Headache, Weakness <Galen Diaz - Last Filed: 03/17/19 13:59> Physical Exam Vital Signs/Narrative: Vital Signs Temp Pulse Resp BP Pulse Ox 03/17/19 13:15 96.9 F L 87 16 148/85 H 100 <Lynette Quiroga - Last Filed: 03/17/19 13:50> Visual Acuity: bilateral: 20/20 Visual Acuity: Corrected Eyelid: Hordeolum right Right Conjunctiva/Sclera: Normal inspection Left Conjunctiva/Sclera: Normal inspection Right Cornea: Normal inspection Left Cornea: Normal inspection Extraocular Motion: Normal exam, No pain, No palsy, No nystagmus Pupils: Normal accomodation, PERRL Anterior chamber: Normal exam Posterior Segment: Normal fundoscopic exam, Exam limited by miosis Vital Signs/Narrative: Vital Signs Temp Pulse Resp BP Pulse Ox 03/17/19 13:15 96.9 F L 87 16 148/85 H 100 Inital Vital Signs reviewed: Yes General: Well nourished, Well developed, Obese Head: Normocephalic, Atraumatic ENT: Moist mucous membranes, No rhinorrhea, TM's clear Neck: Supple, Nontender, No lymphadenopathy, No JVD Cardiovascular: Regular rate, Regular rhythm, No murmurs Respiratory: No distress, CTA bilaterally, Chest nontender Abdomen: Soft, Nontender, Nondistended, Normal bowel sounds, No masses Back: Nontender, Normal Inspection Extremities: Nontender, No edema Skin: Normal color, No rash Neurological: Alert, Oriented x3, Cranial nerves II-XII grossly intact Psychological: Normal affect <Galen Diaz - Last Filed: 03/17/19 13:59> Diagnostic/Tx/Re-eval - Medical Decision Making The patient was seen with Galen ribeiro with history and physical exam she complains of a white dot to the right upper lid margin she noticed today Her vision is normal no pain there is a white dot to the lid margin there is no signs of active inflammation her lid function is normal her eye exam is normal, there is no active signs of inflammation or acute gross issue and again it is unclear how long this is been there <Lynette Quiroga - Last Filed: 03/17/19 13:50> - Treatment and Re-Evaluation Antibiotic: right eye <Galen Diaz - Last Filed: 03/17/19 13:59> ED Disposition <Juan FranciscogwendolynPakojohan - Last Filed: 03/17/19 13:50> <Galen Diaz - Last Filed: 03/17/19 13:59> - Plan for ED Patient: Disposition: Home or Assisted Living Diagnosis: Excess skin of right eyelid Instructions: Wound Care Prescriptions: Erythromycin Ophthalmic 1 applic RIGHT EYE TID #1 tube Prescription Printed Referrals: Schuyler Encarnacion DO [Primary Care Provider] - Angel Fischer MD [STAFF PHYSICIAN] - 3-5 Days
== END 2019-03-17 14:42 | disposition home or self-care (01) ==
PROVIDERS: Emergency Provider Physician Assistant Medical; PCP Family Medicine
DX: H00.011 Hordeolum externum right upper eyelid (principal); F17.200 Nicotine dependence, unspecified, uncomplicated; E66.9 Obesity, unspecified
CPT/HCPCS: 99282

== ENCOUNTER 2019-04-21 13:11 | Emergency (ER) | payer MEDICAID, SELFPAY ==
[2019-04-21] VITALS (8 sets, daily range): BP systolic 132–153; BP diastolic 71–118; PULSE 85–142; RESP 15–25; TEMP 36.7–38.5; O2SAT 93–100; BMI 44.4
[2019-04-21] MEDS: Etomidate 20 MG/10 ML Vial IV (13:17)
[2019-04-21] MEDS: LORazepam 2 MG/ML Syringe 1 MG IV (13:19)
--- NOTE | 2019-04-21 13:25 | RAD_ITS ---
STUDY: X-RAY CHEST REASON FOR EXAM: Female, 33 years old. Chest pain TECHNIQUE: Frontal view of the chest COMPARISON: X-Ray Chest February 22, 2019 FINDINGS: Endotracheal tube is place with the tip 2.8 cm from the sidney. A nasogastric tube is present coiled within the stomach. Left base atelectasis and/or small infiltrate is present. The right lung is clear. There are no pleural effusions. There is no pneumothorax. The heart is normal in size. The visualized osseous structures are within normal limits. RAD/Chest 1 View (Portable) IMPRESSION: Endotracheal tube placed with the tip 2.8 mm from the sidney. Left lower lung zone atelectasis and/or small infiltrate. Electronically Signed: Angel Griffin, at 14:21 EST Tel , Service support ,
--- NOTE | 2019-04-21 13:25 | CT_ITS ---
STUDY: CT BRAIN WITHOUT CONTRAST REASON FOR EXAM: Female, 33 years old. Seizure RADIATION DOSAGE (If Supplied By Facility): DLP = ( 779.24 ) mGycm TECHNIQUE: Transaxial CT imaging of the brain was performed without administration of intravenous contrast material. Individualized dose optimization techniques were used for this CT. COMPARISON: CT head February 22, 2019 FINDINGS: Stable left hemispheric atrophy is present. There is no acute bleed or infarct. There are normal white matter tracts. The ventricles are normal in configuration. There is no hydrocephalus. The visualized paranasal sinuses are clear. The mastoid air cells are well aerated. There is no skull fracture. CT/Brain/Head without Contrast IMPRESSION: No acute intracranial abnormality. Stable left hemispheric atrophy. Electronically Signed: Angel Griffin, at 14:56 EST Tel , Service support ,
--- NOTE | 2019-04-21 13:25 | EKG12_ITS ---
Test Reason : SEIZURE Blood Pressure : / mmHG Vent. Rate : 114 BPM Atrial Rate : 114 BPM P-R Int : 156 ms QRS Dur : 070 ms QT Int : 334 ms P-R-T Axes : 040 061 071 degrees QTc Int : 460 ms Sinus tachycardia Otherwise normal ECG Confirmed by GEORGI FARNSWORTH ([id number]), news assignment editor SHARAN SNELL ([id number]) on 04/24/2019 2:53:20 PM Referred By: GAURI Confirmed By:GEORGI FARNSWORTH
--- NOTE | 2019-04-21 13:30 | ED.VISSUMM ---
- ER Visit Summary Date of Service: 04/21/19 Chief Complaint: Status epilepticus History of Present Illness: The patient is a 33 F history of a seizure disorder. Patient is unable give any history because she is actively seizing. The paramedics were called at home due to seizure. She had a seizure and since resolved and she started seizing again. Paramedics treated her with nasal Versed without any improvement of her seizure she has been seizing release 15 minutes. Physical Examination: Initial blood pressure 136/118. Heart rate 121. Respirations 24. She is 94% on a facemask.. Temperature is elevated 1-1.3. H EENT exam actively seizing. Eyes deviated to the right. Moist because membranes. Neck no lymphadenopathy. Trachea midline. Lungs no obvious rales, rhonchi or wheezing. Heart tachycardic rate about 120 no murmur. Chest wall nontender. No signs of trauma. Abdomen morbidly obese but soft. No peritoneal signs nondistended. Remedies actively seizing tonic-clonic. No deformities. Neurologically he is actively seizing. Following no commands verbally. Does not respond to noxious stimuli. Test Results: Chest x-ray portable 1 view shows ET tube in good position above the sidney. OG in good position. No pneumonia. Read by myself and the radiologist. CT brain shows no acute abnormality no bleed. Read by myself waiting on the radiologist interpretation. EKG sinus tachycardia rate of 114 no acute signs of NE or ischemia. CBC shows white count of 13.8. Hemoglobin 12 no bands. Chemistries unremarkable normal creatinine and gap. Anion gap 13. Liver enzymes unremarkable PT/INR unremarkable UA unremarkable. Lactic acid elevated 6.6 consistent with seizure activity. Serum test negative troponin normal. ABG shows a pH 7.24 PCO2 44 PO2 107 and bicarb of 19. Consistent with a lactic acidosis from seizure activity and metabolic acidosis. Repeat exam patient is doing well at 1439. She is resting comfortably on the vent. She is stable vital signs. The nurses did a core temperature was only 99.2. Emergency Department Course and Treatment: Patient in status epilepticus. Treated with Ativan. Emergently intubated using etomidate and succinylcholine. Intubated on the first attempt with an 8 ET tube at about 22 at the lips. Bilateral breath sounds were heard. There was no obvious signs of any aspiration. And no emesis. Patient will be sedated with propofol. She will receive a liter wide-open. Due to the fever she will undergo an infectious work-up. Treatment Plan: I have already spoken to the transfer line at [facility]. We do not have in-house neurology nor do we have the capability to do 24-hour [id number] EEGs. She has been transferred to the facility multiple times. Awaiting acceptance of transfer. Disposition: Transfer [facility] the ICU. Impression: Acute status epilepticus History of seizure Acute fever Intubated by ER Critical care time 35 minutes by ER This note was generated with [employer] dictation software. It may contain incorrect words, spelling, and punctuation that were not noted in review of the chart prior to signing ED Disposition - Plan for ED Patient: Referrals: Schuyler Encarnacion DO [Primary Care Provider] -
[2019-04-21] MEDS: 0.9% Normal Saline 1,000 ML 1000 ML IV (13:33)
[2019-04-21 13:38] LABS: Bacteria 0 SEEN /hpf (None Seen); Mucous, Urine 0 SEEN /hpf (<or=2+); Red Blood Cells-Urine 0 SEEN /hpf (0-5)
[2019-04-21 13:40] LABS: Color, Urine Yellow (Yellow); Glucose, Dipstick Normal (Normal); Ketone-Dipstick Negative (Negative); Leukocyte Esterase-Dipstick Negative /ul (Negative); Nitrite-Dipstick Negative (Negative); Occult Blood-Urine Negative /ul (Negative); Protein-Dipstick 100 mg/dl (Negative); Urine Bilirubin Dipstick Negative (Negative); Urine Clarity Clear (Clear); Urine Urobilinogen Normal (Normal); Urine pH 6.5 (5.0 - 8.0)
[2019-04-21 13:45] LABS: Absolute Lymphocyte Count 4.55 X10^3/uL (0.83-4.51); Absolute Neutrophil Count 7.6 X10^3/uL (2.0-7.7); Basophil# 0.07 X10^3/uL; Basophil% 0.5 % (0-1); Eosinophil# 0.21 X10^3/uL; Eosinophils% 1.5 % (0-5); Hematocrit 43.7 % (37-47); Hemoglobin 12.8 g/dL (12.0-15.0); Lymphocyte # 4.55 X10^3/ul (4.0); Lymphocyte % 32.9 % (19-41); Mean Corp Hgb Conc 29.3 g/dL (32-36); Mean Corpuscular Hgb 24.6 pg (27.0-32.0); Mean Corpuscular Volume 83.9 fL (81-99); Mean Platelet Vol. 11.3 fl (6.2-12.0); Monocyte# 1.27 X10^3/uL; Monocyte% 9.2 % (0-10); NRBC Flagged by Analyzer 0 % (0-5); Neutrophil # 7.58 X10^3/uL (2.7-7.7); Neutrophil % 54.8 % (47-70); Platelet Count 328 K/mm3 (150-450); RBC Distribution Width CV 17.3 % (11.6-14.6); RBC Distribution Width SD 53.4 fl (35.1-43.9); Red Blood Count 5.21 M/mm3 (4.2-5.4); White Blood Count 13.8 K/mm3 (4.4-11.0)
[2019-04-21 13:46] LABS: Base Excess -8 mmol/L (-2 to +2); Bicarbonate 19.4 mmol/L (22-26); Blood Gas Specimen Type ART; FI02 50; Mode A-C; O2 Delivery Device Vent; PEEP 5; PO2 107 mmHG (75-100); RR 14; SITE L Radial; SO2 97 % (95-99); Time Given 1339; Total Carbon Dioxide 21 mmol/L; Vt 450; pCO2 44.5 mmHg (35-45); pH 7.25 (7.35-7.45)
[2019-04-21 13:49] LABS: Internal QC Validated? YES +Cl - CLEAR BKGD; Pregnancy, Serum, hCG Quali. NEGATIVE Negative
[2019-04-21 13:55] LABS: Squamous Epithelial Cells - UA 0-5 SEEN /hpf (5-10); White Blood Cells 0-5 SEEN /hpf (0-5)
[2019-04-21 13:58] LABS: ALB/GLOB Ratio 0.7 RATIO (0.9-2.4); AST(SGOT) 18 U/L (15-37); Alanine Aminotransfer ALT/SGPT 22 U/L (13-56); Albumin, Serum 3.2 g/dL (3.2-5.0); Alkaline Phosphatase 136 U/L (45-117); Anion Gap 13 (5-15); BUN 9 mg/dL (7-18); BUN/Creat Ratio 8.6 RATIO (10-20); Calcium,Total 8.2 mg/dL (8.5-10.1); Chloride 103 mmol/L (98-107); Creatinine, Serum 1.05 mg/dL (0.55-1.02); EST Glomerular Filtration Rate 64 mL/min (>60); Est Glom Filt Rate - Afr Amer 77 mL/min (>60); Estimated Creatinine Clearance 70.67 ml/min; Globulin 4.6 g/dL (2.2-4.2); Glucose 178 mg/dL (74-106); Potassium 4.4 mmol/L (3.5-5.1); Protein, Total 7.8 g/dL (6.4-8.2); Sodium Level 137 mmol/L (136-145)
[2019-04-21 14:16] LABS: Lactic Acid 6.6 mmol/L (0.4-1.9)
[2019-04-21 14:33] LABS: International Normalized Ratio 1.1; Prothrombin Time (Protime)PT. 13.9 SECONDS (11.7-14.9)
--- NOTE | 2019-04-21 14:50 | NURSING ---
MADE INITIAL PHONE CALL FOR TRANSFER TO [facility]
--- NOTE | 2019-04-21 15:28 | NURSING ---
[facility] DR BENJI RUTH RM T3 ICU BED 314 NURSE TO NURSE [phone]
[2019-04-21] MEDS: Propofol 10MG/Ml 1,000 MG/100 ML Bottle 3.8 MG CONT INF (15:34)
--- NOTE | 2019-04-21 15:54 | NURSING ---
[address] [facility] CALLED. ETA IS 20 MIN
[2019-04-21 17:41] LABS: Reflex Lactate? Y
== END 2019-04-21 16:24 | disposition short-term general hospital (02) ==
LOC: ED 13:53
PROVIDERS: Emergency Provider Emergency Medicine; PCP Family Medicine
DX: G40.901 Epilepsy, unspecified, not intractable, with status epilepticus (principal); R50.9 Fever, unspecified; Z79.899 Other long term (current) drug therapy
CPT/HCPCS: 31500; 31720; 36600; 51702; 70450; 71045; 80053; 81001; 82803; 83605; 84703; 85025; 85610; 87040; 87086; 87088; 93005; 94002; 96361; 96365; 96375; 99251; 99285; J7030; A4216; G0463

== ENCOUNTER 2019-05-08 16:05 | Emergency (ER) | payer MEDICAID, SELFPAY ==
[2019-04-21 13:13] VITALS: BMI 44.4
[2019-05-08 16:07] VITALS: BP 130/66; PULSE 65; RESP 16; TEMP 36.8; O2SAT 99; BMI 53.6
[2019-05-08 16:10] VITALS: BP 130/66; PULSE 64; RESP 15; O2SAT 99
[2019-05-08 18:48] LABS: Absolute Neutrophil Count 3.2 X10^3/uL (2.0-7.7); Basophil# 0.07 X10^3/uL; Basophil% 1.2 % (0-1); Eosinophil# 0.35 X10^3/uL; Eosinophils% 5.8 % (0-5); Hematocrit 36.8 % (37-47); Hemoglobin 11.4 g/dL (12.0-15.0); Lymphocyte % 31.5 % (19-41); Mean Corpuscular Hgb 24.8 pg (27.0-32.0); Mean Corpuscular Volume 80.2 fL (81-99); Mean Platelet Vol. 11.8 fl (6.2-12.0); Monocyte# 0.55 X10^3/uL; Monocyte% 9.1 % (0-10); NRBC Flagged by Analyzer 0 % (0-5); Neutrophil # 3.15 X10^3/uL (2.7-7.7); Neutrophil % 52.2 % (47-70); Platelet Count 309 K/mm3 (150-450); RBC Distribution Width CV 16.9 % (11.6-14.6); RBC Distribution Width SD 49.1 fl (35.1-43.9); Red Blood Count 4.59 M/mm3 (4.2-5.4)
[2019-05-08 19:02] LABS: ALB/GLOB Ratio 0.8 RATIO (0.9-2.4); AST(SGOT) 24 U/L (15-37); Alanine Aminotransfer ALT/SGPT 20 U/L (13-56); Albumin, Serum 3.1 g/dL (3.2-5.0); Alkaline Phosphatase 107 U/L (45-117); Anion Gap 5 (5-15); BUN 7 mg/dL (7-18); BUN/Creat Ratio 8.8 RATIO (10-20); Calcium,Total 8.7 mg/dL (8.5-10.1); Chloride 112 mmol/L (98-107); EST Glomerular Filtration Rate 87 mL/min (>60); Est Glom Filt Rate - Afr Amer 105 mL/min (>60); Estimated Creatinine Clearance 71.17 ml/min; Globulin 3.8 g/dL (2.2-4.2); Glucose 92 mg/dL (74-106); Potassium 4.3 mmol/L (3.5-5.1); Protein, Total 6.9 g/dL (6.4-8.2); Sodium Level 139 mmol/L (136-145)
[2019-05-08 19:17] LABS: Internal QC Validated? YES +Cl - CLEAR BKGD; Pregnancy, Serum, hCG Quali. NEGATIVE Negative
--- NOTE | 2019-05-08 19:40 | ED.DCSUM_ITS ---
- ER Visit Summary Date of Service: 05/08/19 Chief Complaint: Off balance History of Present Illness: The patient is a [address] Encarnacion. She also sees a neurologist whose name she does not remember. She states that she was admitted to a hospital in [place] for seizures and was discharged 1 week ago. She believes this was [facility], but she is not sure. States that they stopped her Dilantin and started her on phenobarbital. She reports that ever since that time she feels off balance when she walks around. Review of systems: General: No fever, chills, cold sweats. Cardiovascular: No chest pain, palpitations. Respiratory: No cough, shortness of breath, dyspnea on exertion. Gastrointestinal: No abdominal pain, nausea, vomiting, diarrhea, melena, or hematochezia. Genitourinary: No dysuria, frequency, hematuria. Skin: No rash. Neuro: No headache, numbness, weakness. Physical Examination: Vitals: Stable. Afebrile. General: Well-nourished and well-developed. Head: Normocephalic atraumatic. Neck: Supple, no lymphadenopathy. No JVD. Nontender. Cardiovascular: Regular rate and rhythm. No murmurs. Respiratory: No respiratory distress. Clear to auscultation bilaterally. Abdominal: Soft, nontender, nondistended, normal bowel sounds. No guarding, rebound, or peritoneal signs. Back: Nontender. Extremities: Nontender, no edema. Skin: Normal color, no rash. Neurologic: Alert and oriented ?3. Cranial nerves II through XII are intact. Normal strength and sensation. Psych: Normal affect. Test Results: Phenobarbital level is 32.3. test is negative. LFTs show an albumin of 3.1. Chem-7 shows a chloride 112. CBC shows an H&H 11.4 and 36.8. Emergency Department Course and Treatment: Multiple attempts at blood work were unsuccessful. Patient had the left femoral region cleansed with alcohol and had a femoral stick to obtain blood work. She tolerated this well. Treatment Plan: Patient is instructed to follow-up with her neurologist as soon as possible. At this time her phenobarbital level is not toxic. I suspect that this is just a side effect of the medication. If she is unable to get into see her neurologist she should follow-up with Dr. Encarnacion 1 week for another exam. Return to the emergency department for any worsening symptoms. Disposition: To home in improved and stable condition. Impression: 1 1. Adverse reaction to phenobarbital. This note was generated with [employer] dictation software. It may contain incorrect words, spelling, and punctuation that were not noted in review of the chart prior to signing ED Disposition - Plan for ED Patient: Disposition: Home or Assisted Living Instructions: DRUG REACTION, Other Referrals: Schuyler Encarnacion, [Primary Care Provider] - 3-5 Days
[2019-05-08 20:17] VITALS: BP 142/61; PULSE 67; RESP 17; O2SAT 97
== END 2019-05-08 20:18 | disposition home or self-care (01) ==
LOC: ED 16:32
PROVIDERS: Emergency Provider Emergency Medicine; PCP Family Medicine
DX: R26.89 Other abnormalities of gait and mobility (principal); T42.3X5A Adverse effect of barbiturates, initial encounter; I10 Essential (primary) hypertension; R56.9 Unspecified convulsions; F32.9 Major depressive disorder, single episode, unspecified; Z72.0 Tobacco use; Z79.899 Other long term (current) drug therapy
CPT/HCPCS: 80053; 80184; 84703; 85025; 99284; A4216

== ENCOUNTER 2020-03-17 19:16 | Emergency (ER) | payer MEDICAID, SELFPAY ==
[2020-03-17] VITALS (10 sets, daily range): BP systolic 100–129; BP diastolic 50–95; PULSE 51–128; RESP 15–30; TEMP 37.1; O2SAT 98–100; BMI 41.6
--- NOTE | 2020-03-17 19:35 | CT_ITS ---
STUDY: CT BRAIN WITHOUT CONTRAST REASON FOR EXAM: Female, 34 years old. SEIZURE GREATER THAN 45 MINS. H/O SEIZURE DISORDER. RADIATION DOSAGE (If Supplied By Facility): CTDIvol = ( 44.99 ) mGy, DLP = ( 748.30 ) mGycm TECHNIQUE: Transaxial CT imaging of the brain was performed without administration of intravenous contrast material. Individualized dose optimization techniques were used for this CT. COMPARISON: CT of the brain 04/21/2019 FINDINGS: Normal soft tissue structures. Normal calvarium. There is asymmetric cortical atrophy in left cerebral hemisphere when compared with the right.. Small nonspecific focal area of hypoattenuation in the deep white matter tracts in the right parietal lobe. Normal basal ganglia and thalami. Normal brainstem. Normal cerebellum. There is no intracranial hemorrhage. There are no findings of an acute ischemic infarction. Normal visualized paranasal sinuses. No significant change since prior study. CT/Brain/Head without Contrast IMPRESSION: Nonspecific white matter lesion in the right parietal lobe and asymmetric cortical atrophy in left cerebral hemisphere unchanged since previous exam. MRI may be helpful for further evaluation Electronically Signed: Angel Riuz MD at 21:24 EST , Service support ,
--- NOTE | 2020-03-17 19:35 | EKG12_ITS ---
Test Reason : SEIZURE Blood Pressure : / mmHG Vent. Rate : 131 BPM Atrial Rate : 131 BPM P-R Int : 144 ms QRS Dur : 084 ms QT Int : 388 ms P-R-T Axes : 051 040 076 degrees QTc Int : 572 ms Sinus tachycardia Nonspecific ST and T wave abnormality Abnormal ECG Confirmed by SEEMA MONAHAN, BIRD ([id number]), photographic editor SHARAN SNELL ([id number]) on 03/23/2020 12:49:23 PM Referred By: UJLIEN Confirmed By:BIRD STEPHENSON MD
[2020-03-17 19:55] LABS: Absolute Lymphocyte Count 2.19 X10^3/uL (0.83-4.51); Absolute Neutrophil Count 5.8 X10^3/uL (2.0-7.7); Basophil# 0.04 X10^3/uL; Basophil% 0.5 % (0-1); Eosinophil# 0.04 X10^3/uL; Eosinophils% 0.5 % (0-5); Hematocrit 48.6 % (37-47); Hemoglobin 15.7 g/dL (12.0-15.0); Lymphocyte # 2.19 X10^3/ul (4.0); Lymphocyte % 25.2 % (19-41); Mean Corp Hgb Conc 32.3 g/dL (32-36); Mean Corpuscular Hgb 29.8 pg (27.0-32.0); Mean Corpuscular Volume 92.2 fL (81-99); Mean Platelet Vol. 13.5 fl (6.2-12.0); Monocyte# 0.57 X10^3/uL; Monocyte% 6.6 % (0-10); NRBC Flagged by Analyzer 0 % (0-5); Neutrophil # 5.76 X10^3/uL (2.7-7.7); Neutrophil % 66.2 % (47-70); Platelet Count 226 K/mm3 (150-450); RBC Distribution Width CV 12.4 % (11.6-14.6); RBC Distribution Width SD 42.3 fl (35.1-43.9); Red Blood Count 5.27 M/mm3 (4.2-5.4); White Blood Count 8.7 K/mm3 (4.4-11.0)
[2020-03-17] MEDS: LORazepam 2 MG/ML Syringe IV (20:14)
[2020-03-17] MEDS: Succinylcholine Chloride 200 MG/10 ML Vial 100 MG IV (20:19)
[2020-03-17] MEDS: Etomidate 20 MG/10 ML Vial IV (20:19)
[2020-03-17] MEDS: Propofol 10MG/Ml 1,000 MG/100 ML Bottle 7 MG CONT INF (20:20)
[2020-03-17 20:22] LABS: ALB/GLOB Ratio 0.9 RATIO (0.9-2.4); AST(SGOT) 47 U/L (15-37); Alanine Aminotransfer ALT/SGPT 36 U/L (13-56); Albumin, Serum 3.7 g/dL (3.2-5.0); Alkaline Phosphatase 104 U/L (45-117); Anion Gap 11 (5-15); BUN 10 mg/dL (7-18); Calcium,Total 8.6 mg/dL (8.5-10.1); Chloride 108 mmol/L (98-107); Creatinine, Serum 1.43 mg/dL (0.55-1.02); EST Glomerular Filtration Rate 44 mL/min (>60); Est Glom Filt Rate - Afr Amer 54 mL/min (>60); Glucose 216 mg/dL (74-106); Potassium 3.2 mmol/L (3.5-5.1); Protein, Total 7.7 g/dL (6.4-8.2); Sodium Level 139 mmol/L (136-145)
[2020-03-17] MEDS: levETIRAcetam IV 1,000 MG/100 ML BAG 400 MG IV (20:24)
[2020-03-17] MEDS: 0.9% Normal Saline 1,000 ML 150 ML IV (20:27)
--- NOTE | 2020-03-17 20:37 | RAD_ITS ---
We are attempting to reach an attending provider to discuss findings. An addendum with communication details will be sent when the communication is complete. STUDY: X-RAY CHEST REASON FOR EXAM: Female, 34 years old. SEIZURE, UNRESPONSIVE. ETT PLACEMENT. NG/OG TUBE PLACEMENT TECHNIQUE: AP portable COMPARISON: The fourth 05/17/2019 FINDINGS: Less than optimal inspiratory effort is seen.. Mild left lower lobe atelectasis or infiltrate. There is no demonstrated pleural abnormality. Endotracheal tube is noted with tip approximately 1.5 cm proximal to sidney Borderline cardiomegaly exaggerated by radiographic technique. Normal mediastinum and man. Normal visualized pulmonary arteries. Normal visualized aortic arch and descending thoracic aorta. Normal visualized thoracic spine. Normal visualized ribs, clavicles, and shoulders. NG tube noted curled up in the stomach with tip in the mid gastric fundus There is no demonstrated abnormality of the visualized soft tissue structures of the upper abdomen. RAD/Chest 1 View (Portable) IMPRESSION: Diminished inspiratory effort and mild left lower lobe atelectasis or infiltrate.. Low-lying endotracheal tube approximately 1.5 cm proximal to sidney and should be withdrawn approximately 2 to 3 cm Electronically Signed: Angel Ruiz MD at 21:04 EST , Service support ,
[2020-03-17 20:54] LABS: Phenytoin (Dilantin) Level 1.5 mL (10.0-20.0)
--- NOTE | 2020-03-17 20:57 | ED.RN ---
THIS RN SPOKE WITH MIKAYLA. STATES PT HAS BEEN OUT OF GABAPENTIN ADN PHENOBARB FOR APPROX 1.5 WKS. HE WOULD LIKE TO SEE PT TRANSFERRED TO [facility] IF POSSIBLE
--- NOTE | 2020-03-17 21:38 | ED.VISSUMM ---
- ER Visit Summary Date of Service: 03/17/20 Chief Complaint: [Seizure] History of Present Illness: The patient is a 34 F [presents to the emergency department in status epilepticus. Patient has known history of seizure disorder and per her significant other who was at home with her she started seizing around 6:10 PM. On EMS arrival she had been seizing about 20 minutes and they gave her IM Versed and brought her to the emergency department. On arrival she did not appear to have active seizing other than her eyes seem to be slightly deviated to the left and intermittent twitching with take place. Patient was nonverbal with eyes open. EMS relates that stated that patient ran out of phenobarbital about a week and a half ago. Patient unable to give any history. Patient does have history of hypertension as well as obesity and acute kidney injury.] Physical Examination: [HEENT-PERRLA, EOMI. Cranial nerves II through XII grossly intact. TMs clear. Mucous membranes moist. No adenopathy. No external evidence of trauma to her head. Eyes are deviated to the left and intermittent twitching is noted. Cardiovascular-regular rate and rhythm without murmur or ectopy Lungs-clear to auscultation, chest wall stable without crepitus or subcu emphysema Abdomen-normoactive bowel sounds, soft, nontender, no rebound or rigidity, no peritoneal signs. Neuro exam-patient's GCS was a 6. Patient was not following commands. Patient was not verbalizing. Extremities-intact ?4, normal range of motion, normal pulses, atraumatic] Test Results: [CT scan of the brain without contrast showed nothing acute. EKG on arrival shows sinus rhythm with a ventricular rate of [address] changes noted. CBC with differential obtained showed a white count 8.7, hemoglobin 15.7, hematocrit 48.6, placed 226. Chemistries showed a potassium of 3.2 otherwise they were unremarkable. Glucose was 216. LFTs unremarkable. Troponin was less than 0.015. Chest x-ray obtained after intubation noted the ET tube to be approximately at the sidney and was pulled back 2 cm. I do not appreciate any other abnormalities on her chest x-ray. Radiology in agreement. CT scan of the brain without contrast was unremarkable.] Phenobarbital level was 2.7. Dilantin level was 1.5. Emergency Department Course and Treatment: [Patient was exceedingly difficult IV stick and peripheral IVs could not be obtained. Patient was sterilely draped and prepped for right femoral central line. Patient had the skin cleansed and prepped with chlorhexidine. Central line needle was advanced and femoral vein was easily cannulated. Guidewire was placed through the needle and the needle was removed. Small skin incision was made with an 11 blade and the dilator was placed over the wire into the soft tissues. The central line then was placed over the wire and the wire was removed. The ports had been flushed with heparin prior to placing the central line. I was able to aspirate good blood return from all ports and flushed with heparin. Central line was sutured in the place. Patient tolerated procedure well. Patient had to be intubated and she was given succinylcholine 100 mg IV as well as etomidate 20 mg IV. Patient was intubated with a 7.5 ET tube. Case was discussed with [facility] transfer line and I was told that they did not have any ICU beds available. I discussed with [facility] who accepted transfer of the patient to their NICU. Patient was given Keppra 1 g IV as well as starting phenobarbital at 20 mg/kg. Patient had also received Ativan 20 mg IV. Patient is on a propofol drip.] Treatment Plan: [Transfer to [facility]] Disposition: [Transfer] Impression: [Status epilepticus Intubation by emergency room physician Central line placement right femoral by emergency room physician] This note was generated with [employer] dictation software. It may contain incorrect words, spelling, and punctuation that were not noted in review of the chart prior to signing ED Disposition - Plan for ED Patient: Referrals: Himanshu Sanchez MD [Primary Care Provider] -
--- NOTE | 2020-03-17 22:00 | ED.RN ---
THIS NURSE UPDATED PT ABOUT PT DISPOSITION TO [facility].
== END 2020-03-17 23:21 | disposition short-term general hospital (02) ==
LOC: ED 20:13
PROVIDERS: Emergency Provider Emergency Medicine; PCP Family Medicine
DX: G40.901 Epilepsy, unspecified, not intractable, with status epilepticus (principal); E66.9 Obesity, unspecified; I10 Essential (primary) hypertension; Z79.899 Other long term (current) drug therapy
CPT/HCPCS: 36569; 31500; 31720; 36415; 36556; 51702; 70450; 71045; 80053; 80184; 80185; 84484; 85025; 87426; 93005; 94002; 96365; 96366; 96367; 96368; 96375; 99251; 99285; J7030; A4216; C1751; G0463; J0330

== ENCOUNTER 2020-03-27 10:49 | Inpatient (IN) | payer MEDICAID, SELFPAY ==
[2020-03-17 19:17] VITALS: BMI 41.6
[2020-03-27 10:53] VITALS: BP 102/62; PULSE 51; RESP 18; TEMP 36.6; O2SAT 100; BMI 38.6
--- NOTE | 2020-03-27 11:29 | PCM.HP.STD ---
Problem List (1) Debility Status: Acute Comment: due to recent status epilepticus (2) LULY (acute kidney injury) Status: Resolved (3) Aspiration pneumonia Status: Resolved (4) Metabolic acidosis Status: Resolved (5) Poor intravenous access Status: Chronic (6) Status epilepticus Status: Acute (7) Cannabis abuse Status: Chronic Comment: states 1-2 times a week. 1-2 joints. 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 (12) Tobacco use Status: Chronic (13) Cognitive dysfunction Status: Acute Comment: acute on chronic (14) ANIRUDH (obstructive sleep apnea) Status: Acute Comment: not on CPAP (15) Iron deficiency anemia Status: Resolved (16) Morbid obesity Status: Chronic (17) Cerebral atrophy Status: Chronic Comment: Left hemispheric volume loss (18) Low back pain Status: Chronic History of Present Illness Date of Admission: 03/27/20 Chief Complaint: Physical debility due to recent status epilepticus due to non-compliance with medication The patient is a 34 year old F with a past medical history of seizure disorder (starting at age 1 to 2 years of age), obesity, hypertension, chronic cognitive dysfunction, tobacco dependence, marijuana use/abuse, depression and non-compliance with medication. She is on disability and she gets her medications in pill packs once a month. Recently she was admitted to the hospital for status Epilepticus due to non-compliance with medications because Gabapentin and Phenobarb were not sent in her pill packs. PB level was 2.7. She was intubated and transferred from [facility] ED to [facility] on 03/18/20. 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 She was admitted to the inpt acute rehab unit at [facility] on 03/27/2020 for debility due to increased cognitive dysfunction over baseline and worsening gait instability. She will do 3 hours of therapy daily to restore function at ornear her previous level. All records from the OSH were reviewed as well as past admissions to [facility] in the EMR. Her last admission to a hospital for seizures was about 1 year ago per her and this is markedly improved...... a few years ago she had frequent admission to [facility] and other hospitals for uncontrolled seizures. [] Past Medical History Past Medical History (Chronic Problems): Chronic Problems Morbid obesity (Chronic) Cerebral atrophy (Chronic) Left hemispheric volume loss Low back pain (Chronic) Cannabis abuse (Chronic) states 1-2 times a week. 1-2 joints. Non compliance w medication regimen (Chronic) due to not receiving meds in her pill pack Seizure disorder (Chronic) since age 1 or 2. Hypoplastic left brain Poor intravenous access (Chronic) HTN (hypertension) (Chronic) Tobacco use (Chronic) Depression (Chronic) Allergies fluconazole Allergy (Verified 03/27/20 11:18) NEEDS FOLLOW-UP naproxen Allergy (Verified 03/17/20 19:25) Hives Home Medications: Ambulatory Orders Medication Instructions Recorded Levetiracetam [Keppra] 1,000 mg PO BID 01/16/18 Gabapentin [Neurontin] 300 mg PO BID 06/18/18 Phenobarbital 97.2 mg PO BID 05/08/19 Ferrous Sulfate 325 mg PO DAILY@0800 03/17/20 Topiramate [Topamax] 100 mg PO DAILY 03/17/20 Surgical History: cholecystectomy, - - section x3 Psychiatric History: Depression Lives: With Family Smoking Status: Current every day smoker Tobacco Use: Cigarettes Alcohol: Occasional Drugs: Marijuana - 1-2 times a week - *Family History Maternal History Items: Cancer - Her mother had leukemia, - Paternal History Items: Hypertension - Father had hypertension Sibling History Items: - - She knows of no significant past medical history in her brother or sister and she states her children are all healthy. Review of Systems Constitutional: Reports: Weakness. Denies: Anorexia, Chills, Fever, Weight Change Eyes: Denies: Vision Change HEENT: Denies: Difficulty Hearing, Difficulty Swallowing, Head Aches, Nasal Congestion, Sinus Congestion, Sinus Drainage, Sore Throat Cardiovascular: Denies: Chest Pain, Palpitations Respiratory: Reports: Shortness of breath upon exertion. Denies: Cough, Shortness of breath at rest, Sputum production Gastrointestinal: Denies: Abdominal Pain, Nausea, Vomiting Genitourinary: Denies: Dysuria Gynecological: Denies: Breast symptoms, Vaginal discharge Musculoskeletal: Reports: Back Pain - Chronic. Denies: Joint Pain, Joint Tenderness Skin: Denies: Jaundice, Rash, Wounds Neurological: Reports: Slurred speech, Seizures. Denies: Focal weakness, Numbness, Tingling, Tremor Psychiatric: Denies: Anxiety, Depression, Homicidal Ideations, Suicidal Ideations Endocrine: Denies: Change in Body Habitus Hematologic/ Lymphatic: Denies: Easy Bruising, Easy Bleeding, Hx of blood clot VTE Information - Inpt Only VTE Present on Admission: No VTE Mechan Device Prophylaxis: SCD's VTE Pharm Prophylaxis ordered?: Yes Patient Problems: Active and Suspected Problems Debility (Acute) due to recent status epilepticus Cognitive dysfunction (Acute) acute on chronic ANIRUDH (obstructive sleep apnea) (Acute) not on CPAP Status epilepticus (Acute) - Physical Exam Vitals/I&O's: Vital Signs Temp Pulse Resp BP Pulse Ox 97.9 F 51 L 18 102/62 100 03/27/20 10:53 03/27/20 10:53 03/27/20 10:53 03/27/20 10:53 03/27/20 10:53 Oxygen Delivery Method Room Air Weight: 225 lb Body Mass Index (BMI) 38.6 Finger Stick Blood Glucose 153 General: Alert, Oriented x3, Cooperative HEENT: Atraumatic, PERRLA, EOMI, Normocephalic, - - Decreased blink Oral: Dry Mucosa Neck: Supple, No JVD, Negative Carotid Bruits Lungs: Clear to auscultation, No rhonchi, No wheeze, No rales, Diminished - Poor inspiratory effort Cardiovascular: Regular rate, Regular Rhythm, Normal S1, Normal S2, No murmurs, No rub noted, No Gallop, - - Distant heart sounds-likely secondary to body habitus Abdomen: Bowel Sounds Present, Soft, Non Tender, Obese Extremities: No edema, Capillary Refill Less than 3 Seconds Skin: No rashes, No breakdown Musculoskeletal: No Tenderness to Palpation of Joints or Extremities, No Muscle Wasting Neurological: Cranial nerves II-XII grossly intact, - - No focal neurologic deficits appreciated Psych/Mental Status: Appropriate, Flat Affect, - - Apathetic Current Medications Bisacodyl (Bisacodyl 10 Mg Suppository) 10 mg RECTAL .PRN X 1 PRN PRN Reason: Constipation Ferrous Sulfate (Ferrous Sulfate 325 Mg Tablet) 325 mg PO DAILY@0800 [facility]ule) [facility] Levetiracetam (Levetiracetam 1,000 Mg Tablet) 1,000 mg PO BID [facility] Magnesium Hydroxide (Magnesium Hydroxide 30 Ml Udc) 30 ml PO .PRN X 1 PRN PRN Reason: Constipation Midodrine (Midodrine Hcl 5 Mg Tablet) 5 mg PO BID@0800,1700 [facility] Phenobarbital (Phenobarbital 32.4 Mg Tablet) 64.8 mg PO BID [facility] Stop: 09/23/20 22:01 Senna/Docusate Sodium (Senna/Docusate Sodium 1 Tablet) 2 tablet PO BID [facility], [facility] Topiramate (Topiramate 100 Mg Tablet) 100 mg PO BID [facility] Assessment/Plan All Active Problems Debility (Acute) Cognitive dysfunction (Acute) ANIRUDH (obstructive sleep apnea) (Acute) Status epilepticus (Acute) LULY (acute kidney injury) (Resolved) Aspiration pneumonia (Resolved) Iron deficiency anemia (Resolved) Metabolic acidosis (Resolved) Impressions 1. Physical debility and cognitive decline from baseline due to recent status epilepticus requiring intubation on 03/18/20. 2. Breakthrough seizures due to non-compliance with medications - multiple admissions [facility] in the past but, she has not been in the hospital for a year and she now has a egg caser and gets her pills in packs monthly. Recent pill packs did not contain PB. 3. recent intubation - no infection. done for status epilepticus to protect the airway 4. seizure disorder - since the age of 1-3 5. chronic volume loss Left cerebral hemisphere 6. HTN 7. Depression 8. Apathy 9. Historical noncompliance with medication, CPAP, smoking cessation, marijuana cessation. 10. Tobacco dependence 11. Marijuana usage 12. Morbid obesity 13. Chronic low back pain 14. Orthostatic hypotension -on midodrine PLAN PT for gait stability OT for ADL's ST for evaluation Analgesics as needed Bowel protocol Fall precautions Assess for Anxiety/Depression GI prophylaxis not necessary. No N/V/ABD pain DVT prophylaxis with Lovenox 40 mg subcu daily and MONY janinee Follow up with PCP and Dr. Garcia and Following DC from IP Rehab AM lab including CMP, CBC, Mag and Phos Inpatient E&M: 90389 Init Hosp L3
--- NOTE | 2020-03-27 13:18 | REHABEVAL_ITS ---
Admission Information Primary Diagnosis:: debility due to recent hospitasl admission for status epilepticus with physical as well as cognitve dysfunction. Status Changes from Prescreening?: No changes Identified Actual Problem List:: Pain, ALteration in Cmfrt, Cognitve Impr/Memory Loss, Depression, Bladder Incontinence, Alteration in Sleep, Mobility Impaired, Self Care Deficit, Ineffective Communication, BP, Hypertension, Alteration-Leisure Activ. Potential Problem List:: DVT, Bleeding, Infection, UTI, Aspiration, Falls, Skin Integrity, Depression Risk of Complications DVT: LMWH, MONY Hose Bleeding: Monitor Lab Values, Nursing to Teach Precautions for anti-coagulation therapy., Wound, if applicable, to be assessed every shift., Stroke patients assessed for lethargy or change in status. Infection: Clinical Staff to Monitor for S/S of infection:, S/S of infection include fever, redness, warmth, etc. Urinary Tract Infection: Monitor for frequency, burning, discomfort, or incontinence., Nursing will obtain urine sample for urinalysis and C&S when ordered. Aspiration: Clinical staff will monitor for coughing, drooling, congestion., Speech will evaluate swallowing and dsyphasia., Nursing will monitor patient swallowing during meals. Falls: Patient will be evaluated for Fall Precautions, Patient will be placed on Fall Precautions as indicated per protocol. Skin Breakdown: Nursing will assess skin daily using assessment tool., Nursing will place on Skin Breakdown Precautions as indicated. Pain: Clinical staff will assess patient's pain level per protocol., Medications will be given, if needed, and the pain level reassessed., Other methods: Massage, distraction, decrease stimulus, etc. used PRN. Plan of Care Patient requires physician specializing in physical medicine and rehab oversight to provide close medical supervision of rehab issues including: Pain Management, Sleep Problems, Bowel and Bladder, Medical and co-morbidity Management, DVT prophylaxis, Rehabilitation Leadership, Coordination of treatment team Patient needs Physical Therapy: For a minimum of 1 hour, At least 5 out of 7 days Patient needs Physical Therapy to improve:: Mobility, Mobility, Mobility, Strengthening, Transfers, Stretching, ROM, Endurance, Stairs, Gait, Balance Patient needs Occupational Therapy: For a minimum of 1 hour, At least 5 out of 7 days Patient needs Occupational Therapy to improve ADL's incl.: Eating, Grooming, Bathing, Dressing, Toileting, Toilet transfers, Community Reintegration, Higher functioning activities, Household tasks, Adaptive Equipment, Splinting, Other activities as determined Patient requires speech therapy: For a minimum of 1 hour, At least 5 out of 7 days Patient requires speech therapy for: Swallowing, Cognition, Language Skills, Compensatory Strategies Patient requires 24/7 Rehabilitation Nursing for: Pain Issues, Identifying and preventing risk factors, Monitoring and reporting current medical conditions, Assisting with ambulation, transfer, and all ADL's, Teaching patients about disease process and medications, Family teaching, Providing safe environment, Bowel and Bladder Issues, Skin integrity, Medication Management Patient needs Clinical Product Manager/ Case Management for: Discharge Planning, Arranging Home Equipment or Services, Family Interventions Patient needs Dietary and Nutrition Services for: Adequate Nutrition, Nutritional Supplements, Nutritional Education Goals Patient will remain: free from falls, or injury at time of discharge. Patient will perform bed mobility at: MOD I level of assist. Patient will complete transfers from bed to chair at: MOD I level of assist. Patient will ambulate: 100 feet, with MOD I assist, with LRD Patient will complete upper body dressing at: MOD I level of assist. Patient will complete lower body dressing at: MOD I level of assist. Patient will complete toileting at: MOD I level of assist. Patient will perform bathing at: MOD I level of assist. Patient will complete grooming at: MOD I level of assist. Patient will complete home management skills at: MOD I level of assist. Patient will achieve: 12 stairs, at MOD I assist Patient will have pain level of: of 3 or less Patient's skin will: remain intact, free from infection. Patient will receive: adequate nutrition. Discharge Planning Pt Prognosis for Sig. Practical Improv. w/in Reasonable Time: Good Estimated Length of stay (days): 21 Anticipated D/C Destination: Home with Outpt Therapy Was Preadmission Assessment Accurate?: Yes
--- NOTE | 2020-03-27 13:59 | CASEMGMT ---
Social Work Met with patient for initial assessment. See assessment for further details. Discussed code status. Pt confirmed full code. Pt does not have LW/HCPOA paperwork. Offered to complete during stay. Pt agreeable. SW will assist prior to DC. Clarisa Vallecillo, DIRECTOR OF RECREATION THERAPY PERMASTONE MECHANIC
[2020-03-27] MEDS: Midodrine HCl 5 MG Tablet PO (16:27)
[2020-03-27] MEDS: Gabapentin 300 MG Capsule PO (16:27)
[2020-03-27 17:48] VITALS: BP 105/67; BP 119/67; BP 133/84; PULSE 57; PULSE 60; PULSE 70
[2020-03-27 19:23] VITALS: O2SAT 100
[2020-03-27 20:04] VITALS: BP 103/70; PULSE 60; RESP 16; TEMP 36.3; O2SAT 96
[2020-03-27] MEDS: Topiramate 100 MG Tablet PO (22:25)
[2020-03-27] MEDS: Senna/Docusate Sodium 1 Tablet 2 TABLET PO (22:25)
[2020-03-27] MEDS: Phenobarbital 32.4 MG Tablet 64.8 MG PO (22:25)
[2020-03-27] MEDS: levETIRAcetam 1,000 MG Tablet 1000 MG PO (22:26)
[2020-03-27 22:30] VITALS: PULSE 70; O2SAT 100
[2020-03-28 07:07] VITALS: BP 103/71; PULSE 59; RESP 20; TEMP 36.2; O2SAT 98
[2020-03-28] MEDS: Topiramate 100 MG Tablet PO ×2 (08:04→20:43)
[2020-03-28] MEDS: Senna/Docusate Sodium 1 Tablet 2 TABLET PO ×2 (08:04→20:42)
[2020-03-28] MEDS: Ferrous Sulfate 325 MG Tablet PO (08:04)
[2020-03-28] MEDS: Midodrine HCl 5 MG Tablet PO ×2 (08:05→18:02)
[2020-03-28] MEDS: Gabapentin 300 MG Capsule PO ×2 (08:05→18:01)
[2020-03-28] MEDS: levETIRAcetam 1,000 MG Tablet 1000 MG PO ×2 (08:05→20:42)
[2020-03-28] MEDS: Phenobarbital 32.4 MG Tablet 64.8 MG PO ×2 (09:32→20:47)
[2020-03-28 13:25] VITALS: BP 96/57; PULSE 60; RESP 18; TEMP 36.4; O2SAT 98
--- NOTE | 2020-03-28 13:25 | NURSING ---
PT NOTIFIED NURSING STAFF THAT PT WAS DIFFICULT TO AROUSE. PT HAD DIFFICULTY TO AROUSE FOR NURSING. BUT FOLLOWED SOME COMMANDS SUCH OPENING EYES AND SQUEEZING THIS NURSES HANDS. CAMERON. VSS. AFTER 2 MIN PT WAS ABLE TO STATE WHERE SHE WAS AT. SPEECH WAS MUMBLED. WITHIN 1 MIN SPEECH WAS CLEAR AND PT WAS MORE ALERT STATING SHE DID NOT RECALL PT COMING INTO ROOM OR HAVING HER VS DONE. DR. VALERIO NOTIFIED. DR. VALERIO ALSO NOTIFIED THAT 3 LAB TECHS WERE UNABLE TO DRAW PT BLOOD THIS AM. DR. VALERIO OK IF LAB GETS DRAWN ON MONDAY OR MONDAY.
--- NOTE | 2020-03-28 16:17 | NURSING ---
precision agriculture technician attempted blood draw, vein blew but scant specimen received and will be sent. Patient groggy and drowsy at this time. Will monitor.
[2020-03-28 16:50] LABS: Anion Gap 2 (5-15); BUN 8 mg/dL (7-18); BUN/Creat Ratio 11.2 RATIO (10-20); Calcium,Total 8.3 mg/dL (8.5-10.1); Chloride 109 mmol/L (98-107); Creatinine, Serum 0.72 mg/dL (0.55-1.02); EST Glomerular Filtration Rate 98 mL/min (>60); Est Glom Filt Rate - Afr Amer 119 mL/min (>60); Estimated Creatinine Clearance 94.17 ml/min; Glucose 80 mg/dL (74-106); Magnesium 2.4 mg/dL (1.6-2.6); Phosphorus 4.7 mg/dL (2.5-4.9); Sodium Level 127 mmol/L (136-145)
[2020-03-28] MEDS: Acetaminophen 325 MG Tablet 650 MG PO (18:02)
--- NOTE | 2020-03-28 18:28 | NURSING ---
dashboard developer called regarding Midline placement. Patient and verbalized understanding to risks, consent signed by patient, and agreed to order per Dr. Olivier.
[2020-03-28 18:38] LABS: Mucous, Urine 0 SEEN /hpf (<or=2+); Red Blood Cells-Urine 0 SEEN /hpf (0-5)
[2020-03-28 18:45] LABS: Color, Urine Yellow (Yellow); Glucose, Dipstick Normal (Normal); Ketone-Dipstick Negative (Negative); Leukocyte Esterase-Dipstick 25 /ul (Negative); Nitrite-Dipstick Positive (Negative); Occult Blood-Urine Negative /ul (Negative); Protein-Dipstick Negative (Negative); Urine Bilirubin Dipstick Negative (Negative); Urine Clarity Sl. Cloudy (Clear); Urine Urobilinogen Normal (Normal)
[2020-03-28 18:49] LABS: Urine Sodium 23 mmol/L (Not Establ.)
[2020-03-28 19:40] VITALS: BP 102/56; PULSE 61; RESP 16; TEMP 36.6; O2SAT 95
[2020-03-28 20:17] LABS: Osmolality, Urine 107 mOsm/KG
[2020-03-28 20:20] LABS: Squamous Epithelial Cells - UA 0-5 SEEN /hpf (5-10); White Blood Cells 0-5 SEEN /hpf (0-5)
[2020-03-28 20:21] LABS: Bacteria RARE /hpf (None Seen)
[2020-03-28 20:25] VITALS: PULSE 61; RESP 17; O2SAT 94
--- NOTE | 2020-03-28 20:56 | NURSING ---
Nurse to provide midline in room. Inserted to 10 cm with blood return noted. Pt tolerated well.
[2020-03-29] MEDS: 0.9% Saline Lock 10 ML Syringe IV ×3 (05:59→09:46)
--- NOTE | 2020-03-29 07:25 | NURSING ---
06:00. RN attempted to draw labs from midline and unable to get blood return. Will attempt later.
[2020-03-29 07:47] LABS: Hematocrit 39.7 % (37-47); Hemoglobin 12.4 g/dL (12.0-15.0); Mean Corp Hgb Conc 31.2 g/dL (32-36); Mean Corpuscular Hgb 29.7 pg (27.0-32.0); Mean Corpuscular Volume 95.2 fL (81-99); Platelet Count 158 K/mm3 (150-450); RBC Distribution Width CV 13.9 % (11.6-14.6); RBC Distribution Width SD 48.3 fl (35.1-43.9); Red Blood Count 4.17 M/mm3 (4.2-5.4); White Blood Count 4.6 K/mm3 (4.4-11.0)
[2020-03-29 08:11] LABS: ALB/GLOB Ratio 0.7 RATIO (0.9-2.4); AST(SGOT) 30 U/L (15-37); Alanine Aminotransfer ALT/SGPT 29 U/L (13-56); Albumin, Serum 2.6 g/dL (3.2-5.0); Alkaline Phosphatase 79 U/L (45-117); Anion Gap 7 (5-15); BUN 6 mg/dL (7-18); BUN/Creat Ratio 7.3 RATIO (10-20); Calcium,Total 8.5 mg/dL (8.5-10.1); Chloride 112 mmol/L (98-107); Creatinine, Serum 0.82 mg/dL (0.55-1.02); EST Glomerular Filtration Rate 83 mL/min (>60); Est Glom Filt Rate - Afr Amer 101 mL/min (>60); Estimated Creatinine Clearance 82.69 ml/min; Globulin 3.5 g/dL (2.2-4.2); Glucose 74 mg/dL (74-106); Potassium 4.2 mmol/L (3.5-5.1); Protein, Total 6.1 g/dL (6.4-8.2); Sodium Level 140 mmol/L (136-145)
[2020-03-29] MEDS: Cosyntropin 0.25 MG in 0.9% Normal Saline (Pres. free 1 ML 30 MG IV (08:25)
[2020-03-29] MEDS: Acetaminophen 325 MG Tablet 650 MG PO (08:41)
[2020-03-29] MEDS: levETIRAcetam 1,000 MG Tablet 1000 MG PO ×2 (08:42→21:34)
[2020-03-29] MEDS: Gabapentin 300 MG Capsule PO ×2 (08:42→16:40)
[2020-03-29] MEDS: Midodrine HCl 5 MG Tablet PO ×2 (08:42→16:40)
[2020-03-29] MEDS: Ferrous Sulfate 325 MG Tablet PO (08:42)
[2020-03-29] MEDS: Phenobarbital 32.4 MG Tablet 64.8 MG PO ×2 (08:45→21:31)
[2020-03-29] MEDS: Topiramate 100 MG Tablet PO ×2 (08:45→21:33)
[2020-03-29 08:58] VITALS: BP 130/70; PULSE 57; RESP 16; TEMP 36.6; O2SAT 94
[2020-03-29 18:57] VITALS: BP 102/68; PULSE 60; RESP 14; TEMP 36.6; O2SAT 99
[2020-03-29] MEDS: Senna/Docusate Sodium 1 Tablet 2 TABLET PO (21:34)
[2020-03-29 22:00] VITALS: PULSE 60; RESP 15; O2SAT 97
--- NOTE | 2020-03-30 01:07 | NURSING ---
24 hour urine creatinine test completed. sample sent down to lab at this time.
[2020-03-30 01:31] LABS: 24H Urine Creat. Total Vol. 1.85 L; 24HR. Urine Creatinine 1.07 g/24 HR (0.70-1.90)
[2020-03-30] MEDS: Enoxaparin 40 MG/0.4 ML Syringe SC (05:20)
[2020-03-30 07:41] VITALS: BP 94/50; PULSE 64; RESP 16; TEMP 36.3; O2SAT 95
[2020-03-30] MEDS: levETIRAcetam 1,000 MG Tablet 1000 MG PO ×2 (09:07→21:30)
[2020-03-30] MEDS: Midodrine HCl 5 MG Tablet PO ×2 (09:08→17:45)
[2020-03-30] MEDS: Topiramate 100 MG Tablet PO ×2 (09:08→21:30)
[2020-03-30] MEDS: Ferrous Sulfate 325 MG Tablet PO (09:08)
[2020-03-30] MEDS: Acetaminophen 325 MG Tablet 650 MG PO (09:08)
[2020-03-30] MEDS: Gabapentin 300 MG Capsule PO ×2 (09:08→17:45)
[2020-03-30] MEDS: Phenobarbital 32.4 MG Tablet 64.8 MG PO ×2 (09:08→21:30)
[2020-03-30] MEDS: Senna/Docusate Sodium 1 Tablet 2 TABLET PO ×2 (09:08→21:30)
[2020-03-30 10:00] VITALS: PULSE 64
--- NOTE | 2020-03-30 10:06 | CASEMGMT ---
Addendum entered by Clarisa Vallecillo 03/30/20 15:07: Contacted [employer] and received contact information for pt's current lining caser. Prema Gonzalez ext. [phone], [email or web address] Spoke with her about pt's care and assistance CM provides. Prema has been pts CM for about 1-2 years not, but has not been in the home d/t COVID. However, has been involved with the the Dr's office that provides refills to pts seizure medications. She explained the office does not send med refills timely and pt's refills are mail order so in combination the meds have been consistently behind since November. CM is advocating for pt and will continue to assist. ZORAIDA relayed information to . Will continue to follow. Original Note: Social Work IDT met with patient and via conference call for Team meeting. Discussed patient's progress in therapy and nursing. See notes for details. Explained insurance with [employer] 04/02 and continued stay is not guaranteed. Will ReTeam each week during stay. reported when pt was home, he was unable to get her seizure medication refilled for a period of time d/t an issue with her insurance. nor pt work or have worked prior. Pt receives SSDI about $330, receives no income/unemployment/disability, but do receive food stamps about $900/mo to support themselves and 4 children under 14 y.o. Neither drive nor own a car. Both report pt's father transports as needed. Offered to provide transportation resources - agreed but also states [employer] can provide transport as well. Emailed transport resources to . Pt has hx of frequent admissions to hospital - completed Palliative Care screen - will discuss referral at [facility], along with [facility] for meds and education. and SW inquired further about marijuana use to pt and . Both consistent with usage about twice/wk and the kids are either in their room or outside playing during them using together. Neither explained how they got their marijuana - from a 'friend/dealer' but d/t transportation issues, if father drives them or dealer comes to home. After end of phone conversation with , pt became reluctant to answer further questions and stated I don't want to get in trouble with Jose because I told you about it. Explained staff/ZORAIDA/ are here to help and in order to do that, all of the information is important. Expressed appreciation for willingness to provide information thus far. ZORAIDA and concerned about well-being for kids at home and pt/ ability to safely care for them and provide for them. Will continue to attempt to collect further information. ZORAIDA will also look into getting a C.M. assigned through [employer]. SW to continue to follow. Clarisa Vallecillo, FIRST BEATER INTERACTIVE MEDIA DESIGNER
[2020-03-30 10:28] LABS: Osmolality, Serum 289 mOsm/KG (275-295)
--- NOTE | 2020-03-30 11:03 | PN_ITS ---
Progress Note Kadi was seen on team rounds today. Her Jose participated by phone. Afebrile VSS Maintaining appropriate oxygen saturation on RA Oral intake is fair She was incontinent while doing her ADL's today Discussed with nursing - no problems that need addressed. Reviewed the PT/OT/ST notes I reviewed the DIANNE and she scored only 33/[address] did not pick her up because this is chronic? Had LOB with ambulation today with no AD but with a WW and a slower pace she had no LOB. She was able to do 9 sit to stands in 30 seconds. She completed the tug without the wheeled walker in 24.9 seconds. She required partial/moderate assistance with sit to stand, chair to bed transfer, doing steps and walking 150 feet. When Occupational Therapy saw her on Monday she required total assistance (she is dependent for posterior care) with toileting and minimal assistance with lower body dressing and toilet transfer. Medication list reviewed. In talking with Jose he related that her last hospital admission was about 1 year ago. Jose does not work or drive. He is reportedly not on disability. Kadi does not usually use the WW at home......she did for a while but has not used in the past several months. Kadi and Jose smoke pot together outside 1-2 times a week and they smoke 1-2 joints. The kids are either at school or u pstairs in their bedrooms when the parents are smoking pot. They get it from friends and use the SSI money to but the pot per Crystal. Jorge dad provides transportation since neither Kadi or her drive. Jose tells me that they get Kadi's pills in a pack once a month and the pill pack did not contain Phenobarb or Gabapentin recently......this is likely what lead to the status epilepticus. she has absence seizures at home when she just stares. He could not tell me the last time she had a convulsive seizure at home prior to this recent admission to the hospital. She has decreased blink and she is looking at her diet orders while we are talking about her and then asking questions about food rather than focusing on what is being said. Poor eye contact when you are talking with her and decreased attention span. Lungs - CTA but diminished. Heart-regular rate and rhythm Abdomen-soft, nontender, nondistended, bowel sounds heard No peripheral edema No calf pain No rashes and no skin breakdown Impressions 1. Debility secondary to recent episode of status epilepticus secondary to low antiepileptic levels requiring intubation. Increased cognitive and physical def icits secondary to status plus intubation plus prolonged hospital stay plus sedation while on the vent 2. sezure disorder with breakthrough seizures. 3. Cognitive dysfunction 4. Hypoplastic left brain 5. Morbid obesity 6. ANIRUDH-noncompliant with CPAP 7. Noncompliant with walker use at home 8. Tobacco dependence 9. Marijuana usage 10. History of depression 11. Apathy Continue therapy SW/telephonic nurse case manager are working on having pharmacy send her medications at the appropriate time Consider a trial of a stimulant such as Provigil to treat the apathy, fatigue, lack of motivation. she just want to lie in bed and watch TV. Treating her sleep apnea would more than likely help with this but, she will not wear CPAP.....just like she will not use the WW when she returns home. ? the safety of her children at home? samantha if she and Jose are outside smoking pot when the children are upstairs in their rooms. Kadi has poor cognitive function and poor safety awareness and can not care for herself let alone care for 4 children........Jose is in effect a single parent. STROKE Vital Signs/Narrative: Vital Signs Temp Pulse Resp BP Pulse Ox 03/30/20 07:41 97.4 F L 64 16 94/50 L 95 Inpatient E&M: 23082 Subs Hosp L2
[2020-03-30 13:32] VITALS: O2SAT 95
[2020-03-30 19:40] VITALS: BP 104/61; PULSE 64; RESP 18; TEMP 36.4; O2SAT 100
--- NOTE | 2020-03-31 03:04 | NURSING ---
Reviewed and agree with CARRY OUT CLERK documentation and charting.
[2020-03-31] MEDS: Enoxaparin 40 MG/0.4 ML Syringe SC (05:18)
[2020-03-31] MEDS: 0.9% Saline Lock 10 ML Syringe IV ×3 (05:44→20:19)
[2020-03-31] MEDS: Midodrine HCl 5 MG Tablet PO ×2 (08:36→17:32)
[2020-03-31] MEDS: Ferrous Sulfate 325 MG Tablet PO (08:36)
[2020-03-31] MEDS: Gabapentin 300 MG Capsule PO ×2 (08:37→17:32)
[2020-03-31] MEDS: levETIRAcetam 1,000 MG Tablet 1000 MG PO ×2 (08:37→20:53)
[2020-03-31] MEDS: Phenobarbital 32.4 MG Tablet 64.8 MG PO ×2 (08:37→20:53)
[2020-03-31] MEDS: Topiramate 100 MG Tablet PO ×2 (08:38→20:53)
[2020-03-31 09:10] VITALS: BP 98/70; PULSE 73; RESP 16; TEMP 36.8; O2SAT 96
[2020-03-31 20:12] VITALS: BP 124/79; PULSE 66; RESP 16; TEMP 36.6; O2SAT 99
--- NOTE | 2020-03-31 20:21 | NURSING ---
Midline patent & flushed with saline. Blood return noted. Pt denies pain.
[2020-03-31] MEDS: Acetaminophen 325 MG Tablet 650 MG PO (20:29)
[2020-03-31] MEDS: Nystatin Powder 15gm Bottle 1 APPLIC TOPICAL (20:34)
[2020-03-31 20:42] VITALS: PULSE 66; RESP 16
[2020-03-31] MEDS: Senna/Docusate Sodium 1 Tablet 2 TABLET PO (20:53)
[2020-04-01] MEDS: Enoxaparin 40 MG/0.4 ML Syringe SC (06:39)
[2020-04-01] MEDS: Nystatin Powder 15gm Bottle 1 APPLIC TOPICAL ×2 (06:40→21:20)
[2020-04-01 07:27] VITALS: BP 120/78; PULSE 66; RESP 16; TEMP 36.7; O2SAT 97
[2020-04-01] MEDS: levETIRAcetam 1,000 MG Tablet 1000 MG PO ×2 (08:35→21:20)
[2020-04-01] MEDS: Gabapentin 300 MG Capsule PO ×2 (08:35→17:46)
[2020-04-01] MEDS: Acetaminophen 325 MG Tablet 650 MG PO ×2 (08:35→21:39)
[2020-04-01] MEDS: Ferrous Sulfate 325 MG Tablet PO (08:36)
[2020-04-01] MEDS: Midodrine HCl 5 MG Tablet PO ×2 (08:36→17:46)
[2020-04-01] MEDS: Phenobarbital 32.4 MG Tablet 64.8 MG PO ×2 (08:37→21:20)
[2020-04-01] MEDS: Topiramate 100 MG Tablet PO ×2 (08:37→21:19)
--- NOTE | 2020-04-01 09:02 | PCM.PN.BLA ---
Progress Note Afebrile VSS Maintaining appropriate oxygen saturation on RA Oral intake is good Discussed with nursing - Nursing states she plays [employer] and pretends to be sleeping when she does not want to do something or answer questions. She is slow to answer questions. Reviewed the PT/OT notes Medication list reviewed. No seizure activity reported. She has no complaints today other than her butt hurts from laying in bed so much. I asked why she was not getting up into the bedside chair and she could not tell me. We discussed using the walker to ambulate when she goes home....she told me the walker at home sucks. I suggested we could get a different walker for her and asked if she liked the walker she is using her and she says it sucks. She is apathetic and not motivated to do much but, the therapists have been able to get her to cooperate and do her exercises. I have observed her ambulating in the halls and she is doing better and exercise tolerance is improving. alert, decreased eye blink. Not much facial expression Mucous membranes are moist Lungs-diminished but clear to auscultation. Poor effort. Heart-regular rate and rhythm, no gallop Abdomen-obese, soft, nontender, nondistended, normal bowel sounds present No calf pain No rashes, no skin breakdown Impressions 1. physical and cognitive difficulties/debility due to multiple episodes of status epilepticus in her lifetime. Moist recent episode due to non-compliance with AED's which is the fault of the drug company interrupting the supply and not due to the 's inattention. 2. morbid obesity 3. seizure disorder since she was 2-3 YOA 4. hx of underdevelopment of the left brain 5. Factitial hyponatremia and metabolic acidosis-likely due to lab error. Patient required multiple sticks to obtain a very small amount of blood since she is a difficult6 stick. Midline was inserted and blood drawn from the midline and the lab work is unremarkable Continue current meds and therapy Have her get up and go to the therapy room for at least 2 meals a day. STROKE Vital Signs/Narrative: Vital Signs Temp Pulse Resp BP Pulse Ox 04/01/20 07:27 98.0 F 66 16 120/78 97 Inpatient E&M: [id number] Subs Hosp L2
[2020-04-01] MEDS: 0.9% Saline Lock 10 ML Syringe IV ×2 (14:29→21:18)
[2020-04-01 19:21] VITALS: BP 105/48; PULSE 58; RESP 18; TEMP 36.7; O2SAT 95
[2020-04-01] MEDS: Senna/Docusate Sodium 1 Tablet 2 TABLET PO (21:20)
[2020-04-02] MEDS: Enoxaparin 40 MG/0.4 ML Syringe SC (05:30)
[2020-04-02] MEDS: Nystatin Powder 15gm Bottle 1 APPLIC TOPICAL ×2 (05:30→22:00)
[2020-04-02 07:30] VITALS: BP 133/57; PULSE 59; RESP 20; TEMP 36.2; O2SAT 98
[2020-04-02] MEDS: Midodrine HCl 5 MG Tablet PO (09:55)
[2020-04-02] MEDS: levETIRAcetam 1,000 MG Tablet 1000 MG PO ×2 (09:55→21:59)
[2020-04-02] MEDS: Ferrous Sulfate 325 MG Tablet PO (09:55)
[2020-04-02] MEDS: Gabapentin 300 MG Capsule PO ×2 (09:55→17:54)
[2020-04-02] MEDS: Phenobarbital 32.4 MG Tablet 64.8 MG PO ×2 (09:56→21:59)
[2020-04-02] MEDS: Topiramate 100 MG Tablet PO ×2 (09:56→21:59)
[2020-04-02] MEDS: Senna/Docusate Sodium 1 Tablet 2 TABLET PO ×2 (09:56→21:59)
--- NOTE | 2020-04-02 13:01 | PN_ITS ---
Progress Note Afebrile, vital signs stable Orthostatics were negative at admission but the patient was on midodrine 5 mg p.o. twice daily. She was started on this at the [facility] for unexplained hypotension. Heart rate ranges from 57-73. She is able to maintain appropriate oxygen saturation on room air while awake. She has refused CPAP to treat her ANIRUDH. No complaints other than back pain when she is lying in bed......she will not get up and sit in the chair or ambulate with nursing when she has pain. Denies calf pain, CP, cough, N/V, lightheadedness. Alert, slow to answer questions, easily distracted, decreased attention span, poor safety awareness, decreased eye contact when talking with her. She is trying to watch television when I am trying to talk with her and even when I turn the television off she does not make eye contact. Lungs-diminished but clear to auscultation Heart-regular rate and rhythm, no gallop, distant heart sounds more likely than not secondary to body habitus Abdomen-obese, soft, nontender No peripheral edema No calf pain No skin breakdown or rashes Impressions 1. Debility secondary to recent episode of status epilepticus secondary to low antiepileptic levels requiring intubation due to non-compliance with medication due to pharmacy error. Increased cognitive and physical deficits secondary to status plus intubation plus prolonged hospital stay plus sedation while on the vent 2. seizure disorder with breakthrough seizures. 3. Cognitive dysfunction 4. Hypoplastic left brain 5. Morbid obesity 6. ANIRUDH-noncompliant with CPAP 7. Noncompliant with walker use at home 8. Tobacco dependence 9. Marijuana usage 10. History of depression - not currently on an antidepressant 11. Apathy Start Provigil 100 mg daily in the AM and monitor for increased awareness and increased motivation to do exercise or activities outside of therapy sessions check orthostatics this afternoon and in the AM and hold the Midodrine. If not orthostatic will DC the Midodrine Encouraged her to reconsider using CPAP and discussed the consequences of untreated sleep apnea advised her to quit smoking and quit cannabis Inpatient E&M: [id number] [facility] Hosp L2
[2020-04-02 15:16] VITALS: BP 115/72; BP 118/74; BP 131/82; PULSE 54; PULSE 58; PULSE 65
[2020-04-02 21:52] VITALS: BP 137/74; PULSE 68; RESP 18; TEMP 36.6; O2SAT 100
[2020-04-03] MEDS: Enoxaparin 40 MG/0.4 ML Syringe SC (05:19)
[2020-04-03] MEDS: Modafinil 200 MG Tablet 100 MG PO (05:20)
[2020-04-03] MEDS: Nystatin Powder 15gm Bottle 1 APPLIC TOPICAL ×2 (05:22→20:23)
[2020-04-03] MEDS: 0.9% Saline Lock 10 ML Syringe IV (05:24)
[2020-04-03 07:30] VITALS: BP 130/91; PULSE 65; RESP 18; TEMP 36.7; O2SAT 96
[2020-04-03] MEDS: Ferrous Sulfate 325 MG Tablet PO (08:04)
[2020-04-03] MEDS: Gabapentin 300 MG Capsule PO ×2 (08:05→17:11)
[2020-04-03] MEDS: Topiramate 100 MG Tablet PO ×2 (08:05→20:15)
[2020-04-03] MEDS: levETIRAcetam 1,000 MG Tablet 1000 MG PO ×2 (08:05→20:15)
[2020-04-03] MEDS: Phenobarbital 32.4 MG Tablet 64.8 MG PO ×2 (08:08→20:16)
[2020-04-03 08:22] LABS: Anion Gap 6 (5-15); BUN 5 mg/dL (7-18); BUN/Creat Ratio 6.2 RATIO (10-20); Calcium,Total 8.7 mg/dL (8.5-10.1); Chloride 112 mmol/L (98-107); EST Glomerular Filtration Rate 86 mL/min (>60); Est Glom Filt Rate - Afr Amer 105 mL/min (>60); Estimated Creatinine Clearance 84.76 ml/min; Glucose 76 mg/dL (74-106); Potassium 3.8 mmol/L (3.5-5.1); Sodium Level 141 mmol/L (136-145); Thyroid Stim Hormone (TSH) 2.07 uIU/mL (0.358-3.74)
[2020-04-03 09:00] VITALS: BP 104/64; BP 114/66; BP 115/67; PULSE 73; PULSE 74; PULSE 89
[2020-04-03] MEDS: Acetaminophen 325 MG Tablet 650 MG PO (17:14)
[2020-04-03 22:00] VITALS: BP 109/70; PULSE 66; RESP 15; RESP 16; TEMP 36.7; O2SAT 100
[2020-04-04] MEDS: Enoxaparin 40 MG/0.4 ML Syringe SC (05:35)
[2020-04-04] MEDS: Modafinil 200 MG Tablet 100 MG PO (05:36)
[2020-04-04] MEDS: 0.9% Saline Lock 10 ML Syringe IV ×2 (05:39→17:28)
[2020-04-04] MEDS: Nystatin Powder 15gm Bottle 1 APPLIC TOPICAL ×2 (05:45→20:45)
[2020-04-04] MEDS: Phenobarbital 32.4 MG Tablet 64.8 MG PO ×2 (07:58→20:45)
[2020-04-04] MEDS: Ferrous Sulfate 325 MG Tablet PO (07:58)
[2020-04-04] MEDS: levETIRAcetam 1,000 MG Tablet 1000 MG PO ×2 (07:58→20:45)
[2020-04-04] MEDS: Gabapentin 300 MG Capsule PO ×2 (07:58→17:23)
[2020-04-04] MEDS: Topiramate 100 MG Tablet PO ×2 (07:59→20:45)
[2020-04-04] MEDS: Acetaminophen 325 MG Tablet 650 MG PO (09:57)
[2020-04-04 10:00] VITALS: BP 138/70; PULSE 72; RESP 16; TEMP 36.2; O2SAT 96
[2020-04-04 18:52] VITALS: BP 114/70; PULSE 65; RESP 16; TEMP 36.7; O2SAT 100
[2020-04-04 22:00] VITALS: RESP 15; O2SAT 97
[2020-04-05] MEDS: Modafinil 200 MG Tablet 100 MG PO (06:11)
[2020-04-05] MEDS: Nystatin Powder 15gm Bottle 1 APPLIC TOPICAL ×2 (06:12→21:50)
[2020-04-05] MEDS: Enoxaparin 40 MG/0.4 ML Syringe SC (06:12)
[2020-04-05] MEDS: 0.9% Saline Lock 10 ML Syringe IV ×2 (06:13→14:00)
[2020-04-05 06:45] LABS: Bedside Glucose 86 mg/dL (70-110)
--- NOTE | 2020-04-05 07:25 | NURSING ---
0629: PT AWAKENED TO DO AM CARE. ASSISTED TO THE BATHROOM. WHILE IN THE BATHROOM AM CARE COMPLETED. WENT TO PLACE NEW PILLOW CASES ON BED PT NEEDED TO URINATE. BATHROOM DOOR REMAINED OPENED. PT INSTRUCTED TO FINISH URINATING AND WAIT FOR NURSE TO RETURN TO BATHROOM. THIS NURSE TURNED AROUND AFTER FINISHING BED LINENS AND PT HAD JUST FALLEN FACE FIRST ONTO THE BATHROOM FLOOR, APPEARED TO HAVE TRIPPED OVER PAJAMA PANTS. NO LOC. VSS. BGT = 86. NO S/S OF ANY LAC, PEERL, NO N/V. PT ASSISTED X 2 BACK TO BED. PT C/O LEFT CHIN PAIN & SMALL LEFT KNEE ABRASION NOTED. ATTEMPT X 2 TO CALL SPOUSE TO INFORM OF FALL. SPOUSE DID NOT ANSWER. HOSPITALIST NOTIFIED OF PT'S FALL AND RCVD ORDERS TO DO NEURO CHECKS.
[2020-04-05 07:35] VITALS: BP 120/70; PULSE 70; RESP 17; TEMP 36.4; O2SAT 96
[2020-04-05] MEDS: Gabapentin 300 MG Capsule PO ×2 (08:19→17:06)
[2020-04-05] MEDS: levETIRAcetam 1,000 MG Tablet 1000 MG PO ×2 (08:19→21:46)
[2020-04-05] MEDS: Ferrous Sulfate 325 MG Tablet PO (08:19)
[2020-04-05] MEDS: Topiramate 100 MG Tablet PO ×2 (08:20→21:47)
[2020-04-05] MEDS: Phenobarbital 32.4 MG Tablet 64.8 MG PO ×2 (08:22→21:47)
[2020-04-05] MEDS: Acetaminophen 325 MG Tablet 650 MG PO (08:22)
[2020-04-05 09:07] VITALS: BP 113/67; PULSE 67; RESP 18; TEMP 36.2; O2SAT 95
[2020-04-05 11:00] VITALS: BP 122/73; PULSE 68; RESP 16; TEMP 36.7; O2SAT 96
--- NOTE | 2020-04-05 11:00 | NURSING ---
Neuro Checks and VS have been WNL. Insulation Packer Edda aware of incident this morning. Patient reports no pain and has been doing well for staff. Cognition remains intact and she is alert and oriented.
[2020-04-05 15:00] VITALS: BP 116/66; PULSE 75; RESP 18; TEMP 36.8; O2SAT 98
--- NOTE | 2020-04-05 15:12 | NURSING ---
pt notified of fall AM.
[2020-04-05 22:00] VITALS: BP 117/73; PULSE 63; RESP 16; TEMP 37; O2SAT 97
--- NOTE | 2020-04-05 23:54 | NURSING ---
pt has been up hourly to use the bsc this hs. pt claims that she has been using off and on. pt also claims that she does not need to use her walker. pt up again to use the bsc and urine measured for 150cc and was bladder scanned for 178cc. pt denied any sx for uti. rn aware
[2020-04-06] MEDS: Modafinil 200 MG Tablet 100 MG PO (06:30)
[2020-04-06] MEDS: Enoxaparin 40 MG/0.4 ML Syringe SC (06:30)
[2020-04-06] MEDS: Nystatin Powder 15gm Bottle 1 APPLIC TOPICAL ×2 (06:48→21:00)
[2020-04-06 07:38] VITALS: BP 111/67; PULSE 71; RESP 15; TEMP 36.4; O2SAT 96
[2020-04-06] MEDS: Ferrous Sulfate 325 MG Tablet PO (09:14)
[2020-04-06] MEDS: levETIRAcetam 1,000 MG Tablet 1000 MG PO ×2 (09:15→20:58)
[2020-04-06] MEDS: Gabapentin 300 MG Capsule PO ×2 (09:15→16:45)
[2020-04-06] MEDS: Senna/Docusate Sodium 1 Tablet 2 TABLET PO ×2 (09:15→21:01)
[2020-04-06] MEDS: Topiramate 100 MG Tablet PO ×2 (09:16→21:01)
[2020-04-06] MEDS: Phenobarbital 32.4 MG Tablet 64.8 MG PO ×2 (09:19→21:00)
--- NOTE | 2020-04-06 10:55 | PCM.PN.BLA ---
Progress Note Kadi was seen on team rounds today. Her Jose participated by phone. Afebrile since admission. VSS Maintaining appropriate oxygen saturation on RA Oral intake is good Discussed with nursing - no problems that need addressed. Kadi did have a fall in the bathroom over the weekend. It was witnessed. She was in the bathroom and pulling up her pants and taking a step at the same time when she tripped over her pants leg. She sustained no injuries. No witnessed seizures since admission to the rehab unit. Reviewed the PT/OT notes. She did a 6 minute walk today and in the time did 7 and 1/2 loops for a total of 1,223 feet. She can ascend and descend 5 steps with reciprocal stepping. Medication list reviewed. She is doing well on Provigil and is much more alert. she is smiling and interacting with staff and she is motivated to keep doing better with the testing and bettering her times. she has done very well in rehab and made significant progress from admission. Lab from 04/03 was reviewed. NO hyponatremia. stable creat Her only complaint today is her butt hurts from sitting in bed. She does not like to sit in the chair either. ALert, making good eye contact and joking with staff. Lungs - CTA H-RRR Abd - soft and NT no ankle edema and no calf tenderness no rashes and no skin breakdown. Impressions 1. Debility secondary to recent episode of status epilepticus secondary to low antiepileptic levels requiring intubation due to non-compliance with medication due to pharmacy error. Increased cognitive and physical deficits secondary to status plus intubation plus prolonged hospital stay plus sedation while on the vent 2. seizure disorder with breakthrough seizures. No seizures observed since admission to the rehab unit 3. Cognitive dysfunction 4. Hypoplastic left brain 5. Morbid obesity 6. ANIRUDH-noncompliant with CPAP 7. Noncompliant with walker use at home - she is not using an AD today to ambulate at S[facility].......no major LOB 8. Tobacco dependence - has anna smoke free since being admitted to the hospital 9. Marijuana usage 10. History of depression - not currently on an antidepressant 11. Apathy - I think may be due to the sleepiness associated with the AED's and the untreated ANIRUDH. She is doing much better with Provigil and she is now competing with herself on getting better times with the TUG/6 minute walk/sit to stands. Set the discharge date of 04/07/20. Will get HHC at [facility]. I encouraged her to continue regular exercise at home. I am really impressed with her motivation now....it is markedly improved and I hope she will stick with the exercising. STROKE Vital Signs/Narrative: Vital Signs Temp Pulse Resp BP Pulse Ox 04/06/20 07:38 97.6 F L 71 15 111/67 96 Inpatient E&M: [id number] Subs Hosp L2
--- NOTE | 2020-04-06 11:29 | DCINST_ITS ---
- Discharge Diagnoses Current Active Problems: Current Active and Chronic Problems Debility (Acute) due to recent status epilepticus Cognitive dysfunction (Acute) acute on chronic ANIRUDH (obstructive sleep apnea) (Acute) not on CPAP Morbid obesity (Chronic) Cerebral atrophy (Chronic) Left hemispheric volume loss Low back pain (Chronic) Cannabis abuse (Chronic) states 1-2 times a week. 1-2 joints. Non compliance w medication regimen (Chronic) due to not receiving meds in her pill pack Seizure disorder (Chronic) since age 1 or 2. Hypoplastic left brain Poor intravenous access (Chronic) Status epilepticus (Acute) HTN (hypertension) (Chronic) Tobacco use (Chronic) Depression (Chronic) You will use the following diet at home:: Cardiac - low fat. Plenty of vegetables and fruits. Light on the carbs. Your food should be the consistency of: Regular Your liquids should be the consistency of: Regular/Thin Discharge Activity: Return to Normal Activity, May Not Drive, Use Walker - if you feel unsteady. May resume sexual activity in: No Restrictions Weight Bearing Status: Full weight bearing Call your doctor if you observe: Fever of 101 or Higher, Shortness of breath, Dizziness, Chest pain, Calf discomfort, Uncontrolled pain, - - for breakthrough seizures Instructions: Diabetes: Understanding Carbohydrates, Weight Management: Healthy Eating, Weight Management: Fact and Fiction, MyPlate Worksheet: 1,800 Calories Additional Instructions: 1. I am proud of you Crystal. You have worked very hard the the change in you since admission is amazing. I think the Provigil You are on now in the morning helps with your energy level. You have been much more alert and moving a lot more. The anti-epileptic drugs you take can make you very sleepy. Provigil is a medication that helps counteract this sleepiness and it keeps you awake. You will be more awake to interact with Jose and the kids. I hope that you keep up with the exercise for 30 minutes 5-6 times a week. It will keep your strength up and exercise also wakes you up. 2. Some of the doses on your meds has changed and I sent prescriptions to the pharm for the new doses. 3. I went back and looked at the sleep study you had in the past at the hospital and you do not have sleep apnea! I took it off your problem list since it listed you as having sleep apnea. 4. Take care of yourself Crystal. I am impressed that you had not been in the hospital for a year prior to this admission. You and Jose are doing a good job taking the medications and this time was not your fault........the pharmacy did not send you the meds. If you have questions after you leave my office number is [phone] and the nursing station is [phone]. All the lab done 1 day prior to you going home is normal and the Phenobarb level is within therapeutic range. Allergies/Adverse Reactions: Allergies fluconazole Allergy (Verified 03/27/20 11:18) NEEDS FOLLOW-UP naproxen Allergy (Verified 03/17/20 19:25) Hives Medications to take at Discharge Ferrous Sulfate 325 mg PO DAILY@0800 03/17/20 Acetaminophen [Tylenol Tablet] 650 mg PO Q4H PRN PRN tab 04/06/20 Gabapentin [Neurontin] 300 mg PO BID #60 cap 04/06/20 Levetiracetam [Keppra] 1,000 mg PO BID #60 tab 04/06/20 Modafinil [Provigil] 100 mg PO DAILY@0600 #30 tab 04/06/20 Phenobarbital 64.8 mg PO BID #120 tab 04/06/20 Senna/Docusate Sodium [Senokot-S] 2 tab PO BID #120 tab 04/06/20 Topiramate [Topamax] 100 mg PO BID #60 tab 04/06/20 The following prescriptions were given: Levetiracetam [Keppra] 1,000 mg PO BID #60 tab Prescription Printed Gabapentin [Neurontin] 300 mg PO BID #60 cap Prescription Printed Phenobarbital 64.8 mg PO BID #120 tab Transmission Status: Received by [id number] Modafinil [Provigil] 100 mg PO DAILY@0600 #30 tab Transmission Status: Received by [id number] Senna/Docusate Sodium [Senokot-S] 2 tab PO BID #120 tab Prescription Printed Topiramate [Topamax] 100 mg PO BID #60 tab Transmission Status: Received by [id number] Primary Care Physician: Himanshu Sanchez MD [Primary Care Provider] - Please follow up with your Primary Care Physician in: 7-10 days Test Results: Test results from this visit will be discussed in further detail at your follow- up appointment, if applicable. Please Follow Up With: Uriel Garcia MD When: Monday Please Follow Up With: Rosamaria Powell When: Monday Proposed Discharge Date: 04/07/20
--- NOTE | 2020-04-06 12:41 | DS.PCM_ITS ---
Discharge Date and Diagnosis - Problem List Patient Problems: Active and Suspected Problems Debility (Acute) due to recent status epilepticus Cognitive dysfunction (Acute) acute on chronic Status epilepticus (Acute) Date of Admission: 03/27/20 Date of Discharge: 04/07/20 - Primary Discharge Diagnosis Acute Problems: Active Problems Debility (Acute) due to recent status epilepticus requiring intubation Cognitive dysfunction (Acute) acute on chronic due to status epilepticus Status epilepticus (Acute) - Secondary Discharge Diagnosis Chronic Problems: Chronic Problems Apathy (Chronic) - in part due to increased somnolence related to the side effects from AED's Morbid obesity (Chronic) Cerebral atrophy (Chronic) Left hemispheric volume loss Low back pain (Chronic) Cannabis abuse (Chronic) states 1-2 times a week. 1-2 joints. Non compliance w medication regimen (Chronic) due to not receiving meds in her pill pack this time and not due to the patients non-compliance Seizure disorder (Chronic) since age 1 or 2. 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 It was a clean catch and we elected not to treat because I felt this was a contaminant. Laboratory Last Values WBC 6.6 K/mm3 (4.4-11.0) 04/06/20 15:55 RBC 3.91 M/mm3 (4.2-5.4) L 04/06/20 15:55 Hgb 12.0 g/dL (12.0-15.0) 04/06/20 15:55 Hct 36.5 % (37-47) L 04/06/20 15:55 MCV 93.4 fL (81-99) 04/06/20 15:55 MCH 30.7 pg (27.0-32.0) 04/06/20 15:55 MCHC 32.9 g/dL (32-36) 04/06/20 15:55 RDW Std Deviation 48.1 fl (35.1-43.9) H 04/06/20 15:55 RDW Coeff of Enedina 14.2 % (11.6-14.6) 04/06/20 15:55 Plt Count 172 K/mm3 (150-450) 04/06/20 15:55 MPV 11.9 fl (6.2-12.0) 04/06/20 15:55 Sodium 140 mmol/L (136-145) 04/06/20 15:55 Potassium 4.0 mmol/L (3.5-5.1) 04/06/20 15:55 Chloride 112 mmol/L (98-107) H 04/06/20 15:55 Carbon Dioxide 21.0 mmol/L (21.0-32.0) 04/06/20 15:55 Anion Gap 7 (5-15) 04/06/20 15:55 BUN 7 mg/dL (7-18) 04/06/20 15:55 Creatinine 0.72 mg/dL (0.55-1.02) 04/06/20 15:55 Estim Creat Clear Calc 94.17 ml/min 04/06/20 15:55 Est GFR (MDRD) Af Amer 118 mL/min (>60) 04/06/20 15:55 Est GFR (MDRD) Non-Af 98 mL/min (>60) 04/06/20 15:55 BUN/Creatinine Ratio 9.7 RATIO (10-20) L 04/06/20 15:55 Glucose 85 mg/dL (74-106) 04/06/20 15:55 Serum Osmolality 289 mOsm/KG (275-295) 03/29/20 07:10 Calcium 8.5 mg/dL (8.5-10.1) 04/06/20 15:55 Phosphorus 4.7 mg/dL (2.5-4.9) 03/28/20 16:16 Magnesium 2.4 mg/dL (1.6-2.6) 03/28/20 16:16 Total Bilirubin 0.20 mg/dL (0.20-1.00) 04/06/20 15:55 AST 14 U/L (15-37) L 04/06/20 15:55 ALT 19 U/L (13-56) 04/06/20 15:55 Alkaline Phosphatase 67 U/L (45-117) 04/06/20 15:55 Total Protein 5.8 g/dL (6.4-8.2) L 04/06/20 15:55 Albumin 3.0 g/dL (3.2-5.0) L 04/06/20 15:55 Globulin 2.8 g/dL (2.2-4.2) 04/06/20 15:55 Albumin/Globulin Ratio 1.1 RATIO (0.9-2.4) 04/06/20 15:55 TSH 2.07 uIU/mL (0.358-3.74) 04/03/20 07:30 Cortisol 28.20 ug/dL (3.44-22.45) H 03/29/20 09:34 Urine Color Yellow (Yellow) 03/28/20 Unknown Urine Clarity Sl. Cloudy (Clear) 03/28/20 Unknown Urine pH 7.0 (5.0 - 8.0) 03/28/20 Unknown Ur Specific [place] 1.010 (1.002-1.030) 03/28/20 Unknown Urine Protein Negative mg/dl (Negative) 03/28/20 Unknown Urine Glucose (UA) Normal mg/dl (Normal) 03/28/20 Unknown Urine Ketones Negative mg/dl (Negative) 03/28/20 Unknown Urine Occult Blood Negative /ul (Negative) 03/28/20 Unknown Urine Nitrite Positive (Negative) H 03/28/20 Unknown Urine Bilirubin Negative mg/dL (Negative) 03/28/20 Unknown Urine Urobilinogen Normal mg/dl (Normal) 03/28/20 Unknown Ur Leukocyte Esterase 25 /ul (Negative) H 03/28/20 Unknown Urine RBC 0 SEEN /hpf (0-5) 03/28/20 Unknown Urine WBC 0-5 SEEN /hpf (0-5) 03/28/20 Unknown Ur Squamous Epith Cells 0-5 SEEN /hpf (5-10) 03/28/20 Unknown Urine Bacteria RARE /hpf (None Seen) 03/28/20 Unknown Urine Mucus 0 SEEN /hpf (<or=2+) 03/28/20 Unknown Urine Osmolality 107 mOsm/KG (50-) 03/28/20 18:20 Ur Random Sodium 23 mmol/L (Not Establ.) 03/28/20 18:20 Ur Collection Duration 24.0 HOURS (24.0) 03/30/20 01:05 Urine Total Volume 1.85 L 03/30/20 01:05 Urine Creatinine 57.60 mg/dL (NO RANGE EST.) 03/30/20 01:05 Ur Creatinine 24 Hour 1.07 g/24 HR (0.70-1.90) 03/30/20 01:05 Phenobarbital 26.6 ug/mL (10.0-40.0) 04/06/20 15:55 POC Glucose 86 mg/dL (70-110) 04/05/20 06:37 none Operations: None Procedures: None Summary of Care Provided: Kadi Chance is a 34 year old F with a past medical history of seizure disorder (starting at age 1 to 2 years of age), obesity, hypertension, chronic cognitive dysfunction, tobacco dependence, marijuana use/abuse, depression and non-compliance with medication. She is on disability and she gets her medications in pill packs once a month. Her last pill packs did not contain phenobarbital and she was off phenobarbital for approximately 10 days prior to having status epilepticus. She was admitted to the hospital for status Epilepticus and she was intubated. PB level was 2.7 at admission to the hospital. She was transferred from [facility] ED to [facility] on 03/18/20. Her is her care center manager. She also has a dependency case manager. She was admitted to the inpt acute rehab unit at [facility] on 03/27/2020 for debility due to increased cognitive dysfunction over baseline and worsening gait instability. I know Kadi from frequent prior admissions to [facility] for status epilepticus due to her non-compliance with meds. She has not been in the hospital for approximately 1 year now and the non-compliance is attributable to the pharmacy not sending the prescribed medication. Crystal is a difficult stick and obtaining blood is a problem. Lab after multiple tries was able to get a very small amount of blood on 03/28/20. the results were surprising. Sodium was low at 127 and the serum bicarb is low at 16. BUN was 8 and the creatinine was 0.72. Calcium and phosphorus were normal. I suspected there may be a lab error and so a midline was inserted so that blood could be drawn and the repeat later in the day showed a sodium of 140, serum bicarb of 21, BUN of 6 and a creatinine of 0.82. LFTs were within normal limits. TSH was normal and a Cortrosyn stim test was normal, Repeat lab 1 day prior to DC showed a sodium of 140, potassium of 4, chloride of 112 and a serum bicarb of 21. The BUN was 7 and the creatinine was stable at 0.72. White blood cell count, hemoglobin and platelets were all within normal limits. Phenobarbital level was 26.6 prior to discharge which is in the therapeutic range. Kadi was initially very sleepy and difficult to motivate. She told me that at home her medications make her sleepy and she sleeps a lot. Her H&P's in the past have recorded that she has ANIRUDH but, I reviewed the last sleep study interpreted by Dr. Garcia done in 2017 and she does not have ANIRUDH. She was started on Provigil 100 mg in the AM and her performance and motivation improved significantly. She was awake during the day and had no adverse side effects. Prior to discharge she completed the tug test in 10.98 seconds. She was able to do 10 steps with bilateral handrails at [facility]/SBA. She ambulated 1223 feet in 6 minutes with no assistive device at standby assist. She was independent with eating and she was supervision/set up for grooming, bathing, upper body dressing, toileting and toilet transfer. She was standby assist for lower body dressing and tub/shower transfer. She is very motivated and is competing with herself to better her times with testing. She makes good eye contact and is pleasant and interacting with all the staff. Kadi was discharged on 04/07/20 to home and will have [facility] for PT/OT/SN. She was advised to keep up with the exercises given to her by the therapists and do them at least 6 times a week. She has an appt to follow up with Dr. Garcia on Thursday 04/[address] Powell on Thursday 04/13. She was instructed to follow up with Dr. Meléndez in 7-10 days. She was given a prescription for Provigil 100 mg and for all other RX medications. She was instructed to call the rehab unit or myself if she had any questions post DC about her meds until she is seen in the office by Dr. Garcia, Dr. Powell or Dr. Meléndez. Kadi received smoking cessation counselling while on the rehab floor and she was also advised to discontinue Marijuana use. ALert, making good eye contact and joking with staff. Lungs - CTA, diminished H-RRR, no gallop and no MM Abd - soft and NT, obese, normal BS's and no guarding with palpation no ankle edema and no calf tenderness no rashes and no skin breakdown no tremors and no seizures observed while she was on rehab This note was generated with [employer] dictation software. It may contain incorrect words, spelling, and punctuation that were not noted in checking the note before signing. Patient Problems: Active and Suspected Problems Debility (Acute) due to recent status epilepticus Cognitive dysfunction (Acute) acute on chronic Status epilepticus (Acute) - Physical Exam Vitals/I&O's: Vital Signs Temp Pulse Resp BP Pulse Ox 97.6 F L 71 15 111/67 96 04/06/20 07:38 04/06/20 07:38 04/06/20 07:38 04/06/20 07:38 04/06/20 07:38 Oxygen Flow Rate (L/min) 3 Oxygen Delivery Method Room Air Weight: 262 lb 5.601 oz Body Mass Index (BMI) 38.6 Finger Stick Blood Glucose 153 Orthostatic Vital Signs Start: 03/27/20 17:48 Freq: Status: Active Protocol: Activity Type Activity Date Activity User E-Sign Co-Sign Detail Recorded Client Recorded Date Recorded By Document 04/03/20 09:00 AG [id number] 04/03/20 10:10 AG 04/03/20 09:00 Orthostatic Vitals Standing -Blood Pressure (90/60-120/80 mm Hg) 114/66 -Extremity Use Left Arm -Pulse Rate (60-100 beats/min) 89 Sitting -Blood Pressure (90/60-120/80 mm Hg) 115/67 -Extremity Use Left Arm -Pulse Rate (60-100 beats/min) 73 Lying -Blood Pressure (90/60-120/80 mm Hg) 104/64 -Extremity Use Left Arm -Pulse Rate (60-100 beats/min) 74 Intake and Output for Last 24 Hours 04/04/20 04/05/20 04/06/20 23:59 23:59 23:59 Intake Total 920 / 920 2340 / 2640 540 / 540 Output Total 350 / 350 700 / 700 400 / 400 Balance 570 / 570 1640 / 1940 140 / 140 Current Medications Acetaminophen (Acetaminophen 325 Mg Tablet) 650 mg PO Q4H PRN PRN PRN Reason: Pain Score 1-10 Last Admin: 04/05/20 08:22 Dose: 650 mg Documented by: Bisacodyl (Bisacodyl 10 Mg Suppository) 10 mg RECTAL .PRN X 1 PRN PRN Reason: Constipation Enoxaparin Sodium (Enoxaparin 40 Mg/0.4 Ml Syringe) 40 mg SC DAILY@0600 [facility] Last Admin: 04/06/20 06:30 Dose: 40 mg Documented by: Ferrous Sulfate (Ferrous Sulfate 325 Mg Tablet) 325 mg PO DAILY@0800 [facility] Last Admin: 04/06/20 09:14 Dose: 325 mg Documented by: [facility]ap[facility] ([facility] 300 Mg [facility]apsule) [facility] Last Admin: 04/06/20 09:15 Dose: 300 mg Documented by: Levetiracetam (Levetiracetam 1,000 Mg Tablet) 1,000 mg PO BID [facility] Last Admin: 04/06/20 09:15 Dose: 1,000 mg Documented by: Magnesium Hydroxide (Magnesium Hydroxide 30 Ml Udc) 30 ml PO .PRN X 1 PRN PRN Reason: Constipation Modafinil (Modafinil 200 Mg Tablet) 100 mg PO DAILY@0600 [facility] Last Admin: 04/06/20 06:30 Dose: 100 mg Documented by: Nystatin (Nystatin Powder 15gm Bottle) 1 applic TOPICAL BID@0600,2200 [facility]; Protocol Last Admin: 04/06/20 06:48 Dose: 1 applicatio Documented by: Phenobarbital (Phenobarbital 32.4 Mg Tablet) 64.8 mg PO BID [facility] Stop: 09/23/20 22:01 Last Admin: 04/06/20 09:19 Dose: 64.8 mg Documented by: Senna/Docusate Sodium (Senna/Docusate Sodium 1 Tablet) 2 tablet PO BID [facility] Last Admin: 04/06/20 09:15 Dose: 2 tablet Documented by: Sodium Chloride (0.9% Saline Lock 10 Ml Syringe) 10 - 40 ml IV UD PRN PRN Reason: Midline Flush Last Admin: 04/05/20 14:00 Dose: 10 ml Documented by: Sodium Chloride (0.9 % Nacl (Sterile) Posiflush 10 Ml) 10 - 40 ml IV UD PRN PRN Reason: Port access or dressing change Topiramate (Topiramate 100 Mg Tablet) 100 mg PO BID [facility] Last Admin: 04/06/20 09:16 Dose: 100 mg Documented by: Discharge Activity: Return to Normal Activity, May Not Drive, Use Walker - if you feel unsteady. May resume sexual activity in: No Restrictions Weight Bearing Status: Full weight bearing Call your doctor if you observe: Fever of 101 or Higher, Shortness of breath, Dizziness, Chest pain, Calf discomfort, Uncontrolled pain, - - for breakthrough seizures Home Medications: Medications to take at Discharge Ferrous Sulfate 325 mg PO DAILY@0800 03/17/20 Acetaminophen [Tylenol Tablet] 650 mg PO Q4H PRN PRN tab 04/06/20 Gabapentin [Neurontin] 300 mg PO BID #60 cap 04/06/20 Levetiracetam [Keppra] 1,000 mg PO BID #60 tab 04/06/20 Modafinil [Provigil] 100 mg PO DAILY@0600 #30 tab 04/06/20 Phenobarbital 64.8 mg PO BID #120 tab 04/06/20 Senna/Docusate Sodium [Senokot-S] 2 tab PO BID #120 tab 04/06/20 Topiramate [Topamax] 100 mg PO BID #60 tab 04/06/20 Following Prescriptions Were Given to Patient: Levetiracetam [Keppra] 1,000 mg PO BID #60 tab Prescription Printed Gabapentin [Neurontin] 300 mg PO BID #60 cap Prescription Printed Phenobarbital 64.8 mg PO BID #120 tab Transmission Status: [id number] Modafinil [Provigil] 100 mg PO DAILY@0600 #30 tab Transmission Status: [facility] Senna/Docusate Sodium [Senokot-S] 2 tab PO BID #120 tab Prescription Printed Topiramate [Topamax] 100 mg PO BID #60 tab Transmission Status: Received by [id number] Primary Care Physician: Himanshu Sanchez MD [Primary Care Provider] - Please Follow Up With: Uriel Garcia MD When: Monday Please Follow Up With: Rosamaria Powell When: Monday Please Follow Up With: Dr. Desouza When: Monday Patient Instructions: Diabetes: Understanding Carbohydrates, Weight Management: Healthy Eating, Weight Management: Fact and Fiction, MyPlate Worksheet: 1,800 Calories Disposition: Home with Home Health Minutes spent on discharge:: 40 Patient Condition:: Good Medical Necessity - Tobacco Use Smoking Status: Current every day smoker Tobacco Use: Cigarettes Meaningful Use Info Meaningful Use Diagnoses (Choose all that apply): None applicable Inpatient E&M: 50720 Disch Hosp
[2020-04-06] MEDS: Alteplase 2 MG/2 ML Vial IV (13:28)
--- NOTE | 2020-04-06 14:22 | CASEMGMT ---
Social Work IDT met with patient and via conference call for Team meeting. Discussed patient's progress in therapy and nursing. Pt progressing well and IDT agreeable to DC home 04/07. [employer] insurance has approved until 04/09. agreeable to DC. Pt requesting shower chair. Referral made to [facility] which can be picked up when ready. The only [facility] company that accepts pt's insurance and services pt's are is [facility]. Referral made for PT/OT/SN. They do not have a SW on staff. Pt agreeable. Referral made to [place] at [facility] CPS due to illicit substance use with pt and with children in the home. Other risk factors include: limited support. Neither nor pt work, does not collect unemployment, disability or another income, per pt. Both pt and cannot drive and rely on pt's father. Concerns overall with well-being of children in the home. Notified CPS that the only [facility] company does not have a SW for added support. CPS will review case. Plan: DC home with and children 04/07 with [facility] PT/OT/SN, [facility] - shower chair BEREKET DelgadoW
[2020-04-06 16:01] LABS: Hematocrit 36.5 % (37-47); Mean Corp Hgb Conc 32.9 g/dL (32-36); Mean Corpuscular Hgb 30.7 pg (27.0-32.0); Mean Corpuscular Volume 93.4 fL (81-99); Mean Platelet Vol. 11.9 fl (6.2-12.0); Platelet Count 172 K/mm3 (150-450); RBC Distribution Width CV 14.2 % (11.6-14.6); RBC Distribution Width SD 48.1 fl (35.1-43.9); Red Blood Count 3.91 M/mm3 (4.2-5.4); White Blood Count 6.6 K/mm3 (4.4-11.0)
[2020-04-06 16:28] LABS: ALB/GLOB Ratio 1.1 RATIO (0.9-2.4); AST(SGOT) 14 U/L (15-37); Alanine Aminotransfer ALT/SGPT 19 U/L (13-56); Alkaline Phosphatase 67 U/L (45-117); Anion Gap 7 (5-15); BUN 7 mg/dL (7-18); BUN/Creat Ratio 9.7 RATIO (10-20); Calcium,Total 8.5 mg/dL (8.5-10.1); Chloride 112 mmol/L (98-107); Creatinine, Serum 0.72 mg/dL (0.55-1.02); EST Glomerular Filtration Rate 98 mL/min (>60); Est Glom Filt Rate - Afr Amer 118 mL/min (>60); Estimated Creatinine Clearance 94.17 ml/min; Globulin 2.8 g/dL (2.2-4.2); Glucose 85 mg/dL (74-106); Protein, Total 5.8 g/dL (6.4-8.2); Sodium Level 140 mmol/L (136-145)
[2020-04-06 20:57] VITALS: BP 121/87; PULSE 62; RESP 16; TEMP 36.5; O2SAT 99
[2020-04-06] MEDS: Acetaminophen 325 MG Tablet 650 MG PO (21:01)
[2020-04-06 22:00] VITALS: PULSE 62
--- NOTE | 2020-04-07 00:33 | NURSING ---
5'; MIDLINE CATHETER DC'D FROM R UPPER ARM WITH TIP INTACT. MANUAL PRESSURE HELD FOR 1 MIN. NO BLEEDING NOTED. DRY DRESSING APPLIED TO SITE. PT INSTRUCTED TO LEAVE DRESSING IN PLACE FOR 24 HOURS. WILL CONTINUE TO MONITOR.
[2020-04-07] MEDS: Enoxaparin 40 MG/0.4 ML Syringe SC (06:41)
[2020-04-07] MEDS: Nystatin Powder 15gm Bottle 1 APPLIC TOPICAL (06:42)
[2020-04-07] MEDS: Modafinil 200 MG Tablet 100 MG PO (06:43)
[2020-04-07 07:04] VITALS: BP 142/72; PULSE 64; RESP 16; TEMP 36.5; O2SAT 99
[2020-04-07] MEDS: Senna/Docusate Sodium 1 Tablet 2 TABLET PO (09:18)
[2020-04-07] MEDS: levETIRAcetam 1,000 MG Tablet 1000 MG PO (09:18)
[2020-04-07] MEDS: Gabapentin 300 MG Capsule PO (09:18)
[2020-04-07] MEDS: Ferrous Sulfate 325 MG Tablet PO (09:18)
[2020-04-07] MEDS: Topiramate 100 MG Tablet PO (09:18)
[2020-04-07] MEDS: Phenobarbital 32.4 MG Tablet 64.8 MG PO (09:18)
[2020-04-07] MEDS: Acetaminophen 325 MG Tablet 650 MG PO (09:21)
[2020-04-07 12:47] VITALS: BP 121/83; PULSE 64; RESP 16; TEMP 36.6; O2SAT 97
--- NOTE | 2020-04-13 12:13 | CASEMGMT ---
Social Work Received Mandated Swimming Pool Cleaner Letter from [facility] stating the case was opened. The assigned taker off braker machine is Dalia Huerta [phone]. BEREKET DelgadoW
[2020-04-14 14:45] LABS: Aldosterone, Serum 2.2 ng/dL (0.0-30.0)
== END 2020-04-07 14:00 | disposition home health service (06) | DRG 53 ==
PROVIDERS: Admitting Provider Internal Medicine; PCP Family Medicine; Visit Provider Internal Medicine
DX: G40.A01 Absence epileptic syndrome, not intractable, with status epilepticus (principal); E66.01 Morbid (severe) obesity due to excess calories; I10 Essential (primary) hypertension; G47.33 Obstructive sleep apnea (adult) (pediatric); D50.9 Iron deficiency anemia, unspecified; F17.210 Nicotine dependence, cigarettes, uncomplicated; Z68.38 Body mass index [BMI] 38.0-38.9, adult; F32.9 Major depressive disorder, single episode, unspecified; G89.29 Other chronic pain; I95.1 Orthostatic hypotension; Z91.14 Patient's other noncompliance with medication regimen; Z91.19 Patient's noncompliance with other medical treatment and regimen; R45.3 Demoralization and apathy
CPT/HCPCS: 36415; 80048; 80053; 80184; 81001; 82024; 82088; 82533; 82570; 82962; 83735; 83930; 83935; 84100; 84300; 84443; 85027; 87077; 87086; 87088; 87186; 92523; 92610; 94762; 97110; 97112; 97116; 97162; 97166; 97530; 97535; 97802; J2997; A4216; J0834; J3490

== ENCOUNTER 2020-04-10 17:11 | Emergency (ER) | payer MEDICAID, SELFPAY ==
[2020-03-27 10:53] VITALS: BMI 38.6
[2020-04-10 17:11] VITALS: BP 150/81; PULSE 60; RESP 18; TEMP 36.4; O2SAT 100; BMI 45.5
--- NOTE | 2020-04-10 17:29 | RAD_ITS ---
STUDY: X-RAY - PELVIS REASON FOR EXAM: Female, 34 years old. fall at home, hip pain TECHNIQUE: One view of the pelvis was obtained. COMPARISON: None. FINDINGS: There is a non-specific bowel gas pattern. Normal visualized soft tissue structures. Normal bilateral iliac wings, sacroiliac joints and visualized sacrum. Normal visualized bilateral superior and inferior pubic rami. Normal pubic symphysis. Normal ischial tuberosities. Normal visualized right femoral head. Normal right acetabulum. Normal right hip joint. Normal visualized left femoral head. Normal left acetabulum. Normal left hip joint. RAD/Pelvis 1 or 2 Views IMPRESSION: Normal x-ray examination of the pelvis. Electronically Signed: Deepak Levy MD at 18:34 EST Tel , Service support ,
--- NOTE | 2020-04-10 17:50 | CT_ITS ---
STUDY: CT BRAIN WITHOUT CONTRAST REASON FOR EXAM: Female, 34 years old. FELL 2 DAYS AGO, headache RADIATION DOSAGE (If Supplied By Facility): CTDIvol = ( 44.99 ) mGy, DLP = ( 796.11 ) mGycm TECHNIQUE: Transaxial CT imaging of the brain was performed without administration of intravenous contrast material. Individualized dose optimization techniques were used for this CT. COMPARISON: 03/17/2020 FINDINGS: Normal soft tissue structures. Normal calvarium. There is mild cerebral atrophy with widening of the extra-axial spaces and ventricular dilatation. There are areas of decreased attenuation within the white matter tracts of the supratentorial brain, consistent with microvascular disease changes. Normal basal ganglia and thalami. Normal brainstem. Normal cerebellum. There is no intracranial hemorrhage. There are no findings of an acute ischemic infarction. Normal visualized paranasal sinuses. CT/Brain/Head without Contrast IMPRESSION: Chronic involutional changes of the brain. Electronically Signed: Deepak Levy MD at 18:28 EST Tel , Service support ,
--- NOTE | 2020-04-10 17:55 | RAD_ITS ---
STUDY: X-RAY - LEFT FOOT CLINICAL: Female, 34 years old. fall 2 days ago, pain TECHNIQUE: 3 view(s) of the foot. COMPARISON: None. FINDINGS: Normal talus, calcaneus, and tarsal bones. Tiny plantar posterior calcaneal enthesophytes. Normal visualized subtalar, talonavicular, calcaneocuboid, tarsal and tarsometatarsal articulations. Normal metatarsi. Normal metatarsophalangeal joint of the great toe. Normal tibial and fibular sesamoid bones. Normal interphalangeal joint of the great toe. Normal phalanges of the great toe. Normal second through fifth metatarsophalangeal joints. Normal interphalangeal joints and phalanges of the lesser toes. The soft tissue structures are unremarkable. RAD/Foot min 3 Views IMPRESSION: Normal x-ray examination of the foot. Electronically Signed: Deepak Levy MD at 18:38 EST Tel , Service support ,
--- NOTE | 2020-04-10 18:45 | ED.DCSUM_ITS ---
- ER Visit Summary Date of Service: 04/10/20 Chief Complaint: Fall History of Present Illness: The patient is a [address] Jones. She reports that 2 days ago she was walking up the stairs lost her balance and fell. She hit her head, denies loss of consciousness. She is not on anticoagulants. She complains of neck pain and stated 10 severity low back pain that is 9 out of 10 severity left shoulder pain that is 10 out of 10 in severity in the left small toe pain. Physical Examination: Vitals: Stable. Afebrile. Neck: No vertebral tenderness. Full ROM without difficulty. Cleared by NEXUS criteria. Mild tenderness palpation over the paraspinous musculature on the left trapezius region. Back: No vertebral tenderness. No tenderness palpation the left paraspinous musculature and the right buttock. General: A&O x 3. NAD. Cardiovascular exam: Regular rate and rhythm, no murmur, rub or gallop. Respiratory exam: Chest nontender. No crepitus. Clear to auscultation bilaterally. No wheezes or stridor. Abdominal exam: Soft, nontender, nondistended, normal bowel sounds. No pain in RUQ or LUQ specifically. No peritoneal signs. Extremity: No tenderness palpation over left shoulder. Full range of motion by difficulty. Mild tenderness palpation over her left small toe. Test Results: Clinical Impression(s) from Imaging Studies Pelvis X-Ray 04/10/20 17:29 IMPRESSION: Normal x-ray examination of the pelvis. Electronically Signed: Deepak Levy MD at 18:34 EST Tel , Service support , Brain CT 04/10/20 17:50 IMPRESSION: Chronic involutional changes of the brain. Electronically Signed: Deepak Levy MD at 18:28 EST Tel , Service support , Foot X-Ray 04/10/20 17:55 IMPRESSION: Normal x-ray examination of the foot. Electronically Signed: Deepak Levy MD at 18:38 EST Tel , Service support , Emergency Department Course and Treatment: Patient reports that she used marijuana prior to coming. She is also on phenobarbital and Topamax. I do not think treating her with opiate-based medications is indicated or in her best interest. She is given ibuprofen p.o. Treatment Plan: Patient be discharged with symptomatic care. Use ibuprofen and/or Tylenol for pain. Follow-up with her primary care physician 1 week if not improving. Return to the emergency department for any worsening symptoms. Disposition: To home in improved and stable condition. Impression: 1. Fall. 2. Cervical strain. 3. Low back pain. This note was generated with [employer] dictation software. It may contain incorrect words, spelling, and punctuation that were not noted in review of the chart prior to signing ED Disposition - Plan for ED Patient: Disposition: Home or Assisted Living Instructions: ED Mechanical Fall Referrals: Himanshu Sanchez MD [Primary Care Provider] - 1 Week if not improving
[2020-04-10] MEDS: Ibuprofen 600 MG Tablet PO (18:48)
[2020-04-10 18:49] VITALS: BP 144/78; PULSE 80; RESP 16; TEMP 36.7; O2SAT 98
== END 2020-04-10 20:20 | disposition home or self-care (01) ==
LOC: ED 18:22
PROVIDERS: Emergency Provider Emergency Medicine; PCP Family Medicine
DX: S16.1XXA Strain of muscle, fascia and tendon at neck level, initial encounter (principal); M54.5 Low back pain; I10 Essential (primary) hypertension; R56.9 Unspecified convulsions; Z79.899 Other long term (current) drug therapy; W10.9XXA Fall (on) (from) unspecified stairs and steps, initial encounter; Y93.89 Activity, other specified; Y92.89 Other specified places as the place of occurrence of the external cause; Y99.8 Other external cause status
CPT/HCPCS: 70450; 72170; 73630; 99284

== ENCOUNTER 2020-10-09 20:43 | Emergency (ER) | payer MEDICAID, SELFPAY ==
[2020-10-09 20:43] VITALS: BP 130/116; PULSE 93; RESP 18; TEMP 35.7; O2SAT 95; BMI 33.3
--- NOTE | 2020-10-09 22:36 | EDS_ITS ---
HPI History of Present Illness Chief Complaint: Wound Informant: patient Narrative Narrative: 35-year-old female presents with left facial swelling and pain. Patient states she noted the symptoms today. She states she feels like she has a bump on the cheek of her mouth. No fevers. She denies any dental pain. No sinus symptoms. [facility] Medical History (Updated 10/09/20 @ 22:[address] Satish Loera DO) Cognitive dysfunction Debility HTN (hypertension) Morbid obesity Seizure disorder Home Medications ferrous sulfate 325 mg PO DAILY@0800 03/17/20 [History Last Taken Unknown] acetaminophen 650 mg PO Q4H PRN PRN tab 04/06/20 [Rx Last Taken Unknown] gabapentin 300 mg PO BID #60 cap 04/06/20 [Rx Last Taken Unknown] levetiracetam 1,000 mg PO BID #60 tab 04/06/20 [Rx Last Taken Unknown] modafinil 100 mg PO DAILY@0600 #30 tab 04/06/20 [Rx Last Taken Unknown] phenobarbital 64.8 mg PO BID #120 tab 04/06/20 [Rx Last Taken Unknown] sennosides-docusate sodium 2 tab PO BID #120 tab 04/06/20 [Rx Last Taken Unknown] topiramate 100 mg PO BID #60 tab 04/06/20 [Rx Last Taken Unknown] amoxicillin-pot clavulanate 875 mg PO Q12H #20 tablet 10/09/20 [Rx Last Taken Unknown] Allergy/AdvReac Type Severity Reaction Status Date / Time fluconazole Allergy NEEDS Verified 10/09/20 20:47 FOLLOW-UP naproxen Allergy Hives Verified 10/09/20 20:47 Social History (Updated 10/09/20 @ 22:[address] Satish Loera DO) Smoking Status: Never smoker substance use type: does not use ROS ROS ED Constitutional Constitutional ED: Denies chills or weight loss Eyes Eyes: Denies change in vision or diplopia ENT ENT ED: Reports other Details: Facial swelling ; Denies ear pain, rhinorrhea or sore throat Cardiovascular Cardiovascular: Denies chest pain, orthopnea, palpitations or racing heartbeat Respiratory/Chest Respiratory/Chest: Denies cough, dyspnea or orthopnea Gastrointestinal Gastrointestinal: Denies abdominal pain, diarrhea, nausea or vomiting Genitourinary Genitourinary ED: Denies dysuria, hematuria or urinary frequency Musculoskeletal Musculoskeletal: Denies arthralgias or myalgias Integumentary Denies abscess or rash Neurologic Neurologic: Denies headache(s) or weakness Psychiatric Psychiatric: Denies anxiety, depression, suicidal ideation or suicidal thoughts Endocrine Endocrinology: Denies polydipsia, polyphagia or polyuria Allergic/Immunologic Allergic/Immunologic ED: Denies mouth swelling, tongue swelling or urticaria EXAM Physical Exam Const Vital Signs: 10/09/20 20:43 Temperature 96.3 F L Temperature Source Temporal Pulse Rate 93 Respiratory Rate 18 Blood Pressure 130/116 H Blood Pressure Mean 120 Pulse Ox 95 Oxygen Delivery Method Room Air Positive well nourished and well developed General Appearance ED: well developed HEENT Reports normocephalic, head/scalp atraumatic and moist mucous membranes HEENT Narrative: Tenderness or obvious dental source. The parotid duct appears mildly swollen.Left parotid gland appears swollen. There is some mild erythema. Inside the mouth Eyes PERRL and EOMs intact bilaterally Neck no lymphadenopathy, supple and no JVD Resp normal respiratory effort and clear to auscultation bilaterally Cardio regular rate, regular rhythm and no murmurs GI normal to inspection, nondistended, normoactive bowel sounds and non-tender Palpation: soft Back/Spine no CVA tenderness and normal ROM Extremity normal to inspection General Extremety ED: Negative for edema General Extremity: Negative for edema Neuro oriented x3 and CN's II-XII intact bilaterally Sensorium / Orientation: alert Motor Exam: strength 5/5 throughout Psych mental status grossly normal Mood & Affect: Negative for depressed or tearful Skin no rashes or lesions noted and no wounds MDM MDM MDM Narrative Medical decision making narrative: Patient will be started on Augmentin. I did recommend sucking on lemon drops. The patient does not like sour things but I advised that that would be her best option. Discharge Plan Triage Chief Complaint: Wound ED Provider: Satish Loera Dx/Rx/DC Orders Clinical Impression: Acute parotitis Instructions: ED Salivary Gland Swelling ..., ED Salivary Gland Stones Prescriptions: New amoxicillin-pot clavulanate [amoxicillin-pot clavulanate] 875 MG tablet 875 mg PO Q12H Qty: 20 RF: 0 No Action ferrous sulfate 325 MG tablet 325 mg PO DAILY@0800 RF: 0 acetaminophen 325 MG tablet 650 mg PO Q4H PRN PRN (Reason: Pain Score 1-10) RF: 0 sennosides-docusate sodium 1 TABLET tablet 2 tab PO BID Qty: 120 RF: 0 modafinil 200 MG tablet 100 mg PO DAILY@0600 Qty: 30 RF: 0 topiramate 100 MG tablet 100 mg PO BID Qty: 60 RF: 0 phenobarbital 32.4 MG tablet 64.8 mg PO BID Qty: 120 RF: 0 gabapentin 300 MG capsule 300 mg PO BID Qty: 60 RF: 0 levetiracetam 1,000 MG tablet 1,000 mg PO BID Qty: 60 RF: 0 Primary Care Provider: Himanshu Sanchez Referrals: Robert Neil MD [STAFF PHYSICIAN] - 3-5 Days if not improving Himanshu Sanchez MD [Primary Care Provider] - As Needed Disposition Disposition: Home, Self Care
[2020-10-09] MEDS: Amox/Clavulanate 875 MG Tablet PO (22:50)
[2020-10-09 22:54] VITALS: RESP 16
== END 2020-10-09 22:55 | disposition home or self-care (01) ==
PROVIDERS: Emergency Provider Emergency Medicine; PCP Family Medicine
DX: K11.21 Acute sialoadenitis (principal); E66.01 Morbid (severe) obesity due to excess calories; I10 Essential (primary) hypertension; G40.909 Epilepsy, unspecified, not intractable, without status epilepticus; Z79.899 Other long term (current) drug therapy
CPT/HCPCS: 99283

== ENCOUNTER 2021-07-29 13:13 | Emergency (ER) | payer MEDICAID, SELFPAY ==
[2021-07-29 13:14] VITALS: BP 166/118; PULSE 71; RESP 18; TEMP 35.9; O2SAT 97; BMI 42.0
--- NOTE | 2021-07-29 14:20 | EDS_ITS ---
HPI History of Present Illness Chief Complaint: Hypertension Informant: patient and spouse/S.O. Narrative Narrative: Patient presents to ED after dentist declined doing her procedure due to elevated blood pressure. History of hypertension on amlodipine 5 mg daily sleeping on it for years. She does not know the number that was given however was told by significant other that it was 30 points above normal. Denies chest pains abdominal pain dyspnea. History of seizure disorder states mild headache. Denies head trauma. She does not know what her blood pressure typically is in the doctor's office nor does she check it at home. [facility] Medical History Cognitive dysfunction Debility HTN (hypertension) Morbid obesity Seizure disorder Medical History no medical history Home Medications ferrous sulfate 325 mg PO DAILY@0800 03/17/20 [History Last Taken Unknown] acetaminophen 650 mg PO Q4H PRN PRN tab 04/06/20 [Rx Last Taken Unknown] gabapentin 300 mg PO BID #60 cap 04/06/20 [Rx Last Taken Unknown] levetiracetam 1,000 mg PO BID #60 tab 04/06/20 [Rx Last Taken Unknown] modafinil 100 mg PO DAILY@0600 #30 tab 04/06/20 [Rx Last Taken Unknown] phenobarbital 64.8 mg PO BID #120 tab 04/06/20 [Rx Last Taken Unknown] sennosides-docusate sodium 2 tab PO BID #120 tab 04/06/20 [Rx Last Taken Unknown] topiramate 100 mg PO BID #60 tab 04/06/20 [Rx Last Taken Unknown] amoxicillin-pot clavulanate 875 mg PO Q12H #20 tablet 10/09/20 [Rx Last Taken Unknown] Allergy/AdvReac Type Severity Reaction Status Date / Time fluconazole Allergy NEEDS Verified 10/09/20 20:47 FOLLOW-UP naproxen Allergy Hives Verified 10/09/20 20:47 Social History Smoking Status: Never smoker substance use type: does not use ROS ROS ED Constitutional Constitutional ED: Denies chills, fever(s) or sweats Eyes Eyes: Denies change in vision ENT ENT ED: Denies dysphagia or sore throat Cardiovascular Cardiovascular: Denies chest pain, leg edema, palpitations or racing heartbeat Respiratory/Chest Respiratory/Chest: Denies cough, dyspnea or dyspnea on exertion Gastrointestinal Gastrointestinal: Denies abdominal pain, diarrhea, nausea or vomiting Genitourinary Genitourinary ED: Denies dysuria, hematuria or urinary frequency Musculoskeletal Musculoskeletal: Denies back pain, extremity pain or neck pain Integumentary Denies rash or wounds Neurologic Neurologic: Denies paresthesias or weakness EXAM Physical Exam Const Vital Signs: 07/29/21 13:14 07/29/21 14:22 07/29/21 14:25 Temperature 96.7 F L Temperature Source Temporal Pulse Rate 71 Respiratory Rate 18 Respiratory Effort Normal Non-Labored Respiratory Pattern Normal Blood Pressure 166/118 H 146/70 H Blood Pressure Mean 134 Pulse Ox 97 Oxygen Delivery Method Room Air Positive well nourished and well developed General Appearance ED: well developed and NAD HEENT Reports moist mucous membranes normocephalic and atraumatic Eyes PERRL, EOMs intact bilaterally and conjunctivae normal General Eye ED: Yes normal appearance of both eyes Neck no lymphadenopathy and supple General: Negative for tenderness Chest Wall Chest: Negative for tenderness Resp normal respiratory effort and normal air movement Effort and Inspection: symmetric chest movement; Negative for respiratory dis tress Cardio regular rate, regular rhythm and no murmurs Peripheral Pulses: pulses 2+ throughout GI normal to inspection, nondistended, normoactive bowel sounds and non-tender Palpation: Negative for guarding or rebound tenderness present Back/Spine no CVA tenderness and no thoracic nor lumbar tenderness Extremity normal to inspection General Extremety ED: Negative for edema or tenderness General Extremity: Negative for edema Neuro oriented x3 and no sensory deficits noted Sensorium / Orientation: awake and alert Skin no rashes or lesions noted and no wounds MDM MDM MDM Narrative Medical decision making narrative: Patient nontoxic. Blood pressure 166/118. She took her 5 mg amlodipine earlier today. She does not know her baseline pres sures. This would be consistent with reported dentist blood pressure of 30 points above normal. However this is not emergent. Discussed with her we will increase her amlodipine to 10 mg total daily starting tomorrow. She took her 5 mg dose in the ED for 10 mg today. She will follow-up with her PCP next week for blood pressure check and adjustments as needed. All questions were answered. Discharge Plan Triage Chief Complaint: Hypertension ED Provider: Jose Brown Dx/Rx/DC Orders Clinical Impression: Hypertension, History of epilepsy Instructions: Hypertension Dc Prescriptions: No Action ferrous sulfate 325 MG tablet 325 mg PO DAILY@0800 RF: 0 acetaminophen 325 MG tablet 650 mg PO Q4H PRN PRN (Reason: Pain Score 1-10) RF: 0 sennosides-docusate sodium 1 TABLET tablet 2 tab PO BID Qty: 120 RF: 0 modafinil 200 MG tablet 100 mg PO DAILY@0600 Qty: 30 RF: 0 topiramate 100 MG tablet 100 mg PO BID Qty: 60 RF: 0 phenobarbital 32.4 MG tablet 64.8 mg PO BID Qty: 120 RF: 0 gabapentin 300 MG capsule 300 mg PO BID Qty: 60 RF: 0 levetiracetam 1,000 MG tablet 1,000 mg PO BID Qty: 60 RF: 0 amoxicillin-pot clavulanate [amoxicillin-pot clavulanate] 875 MG tablet 875 mg PO Q12H Qty: 20 RF: 0 Primary Care Provider: Himanshu Sanchez Referrals: Himanshu Sanchez MD [Primary Care Provider] - 5-7 Days Activity Restrictions/Additional Instructions: Blood pressure 166/18 on arrival. Start taking your amlodipine 10 mg (two 5mg tabs) daily in the morning. Follow-up with your doctor next week for recheck of your blood pressure. Disposition Disposition: Home, Self Care Discharge Date/Time: 07/29/21 14:26
[2021-07-29 14:25] VITALS: BP 146/70
== END 2021-07-29 14:26 | disposition home or self-care (01) ==
PROVIDERS: Emergency Provider Emergency Medicine; PCP Family Medicine; Visit Provider Emergency Medicine
DX: I10 Essential (primary) hypertension (principal); E66.01 Morbid (severe) obesity due to excess calories; Z68.41 Body mass index [BMI] 40.0-44.9, adult; G40.909 Epilepsy, unspecified, not intractable, without status epilepticus; Z79.899 Other long term (current) drug therapy
CPT/HCPCS: 99282

== ENCOUNTER 2021-08-08 11:55 | Emergency (ER) | payer MEDICAID, SELFPAY ==
[2021-08-08 11:55] VITALS: BP 152/94; PULSE 66; RESP 23; TEMP 36.4; O2SAT 98; BMI 41.8
--- NOTE | 2021-08-08 13:04 | EX.ED.DYSGE1 ---
HPI <PRANEETH Liao - Last Filed: 08/08/21 13:29> History of Present Illness Chief Complaint: Seizure Narrative Narrative: 36-year-old female with history of seizures, anxiety, depression presents the emergency department with a staring seizure. Patient states that over the last several weeks, a lot has happened in her life. She has 4 boys, is stressed, and states to have more stressors that have been ongoing. Patient was laying in bed, had a staring seizure, this was seen by her son who called the ambulance. Patient states that she takes all of her medications appropriately. She has not missed any doses. Patient is alert and orient x4 here in the emergency department. PFSH <PRANEETH Liao - Last Filed: 08/08/21 13:29> PFS Medical History Cognitive dysfunction Debility HTN (hypertension) Morbid obesity Seizure disorder Medical History no medical history Home Medications ferrous sulfate 325 mg PO DAILY@0800 03/17/20 [History Last Taken Unknown] acetaminophen 650 mg PO Q4H PRN PRN tab 04/06/20 [Rx Last Taken Unknown] gabapentin 300 mg PO BID #60 cap 04/06/20 [Rx Last Taken Unknown] levetiracetam 1,000 mg PO BID #60 tab 04/06/20 [Rx Last Taken Unknown] modafinil 100 mg PO DAILY@0600 #30 tab 04/06/20 [Rx Last Taken Unknown] phenobarbital 64.8 mg PO BID #120 tab 04/06/20 [Rx Last Taken Unknown] sennosides-docusate sodium 2 tab PO BID #120 tab 04/06/20 [Rx Last Taken Unknown] topiramate 100 mg PO BID #60 tab 04/06/20 [Rx Last Taken Unknown] amoxicillin-pot clavulanate 875 mg PO Q12H #20 tablet 10/09/20 [Rx Last Taken Unknown] Allergy/AdvReac Type Severity Reaction Status Date / Time fluconazole Allergy NEEDS Verified 08/08/21 11:58 FOLLOW-UP naproxen Allergy Hives Verified 08/08/21 11:58 Social History Smoking Status: Never smoker substance use type: does not use ROS <PRANEETH Liao - Last Filed: 08/08/21 13:29> ROS ED ROS Narrative Constitutional: Negative for fever, chills, weight loss, weakness Eyes: Negative for vision loss, vision change, double vision ENT: Negative for any sore throat, ear pain, congestion Cardiovascular: Negative for any chest pain, tightness, palpitations Respiratory: Negative for any cough, sputum production, hemoptysis, dyspnea, dyspnea on exertion, orthopnea Gastrointestinal: Negative for any abdominal pain, nausea, vomiting, diarrhea, constipation, blood in stool, blood in vomit : Negative for any urinary frequency, dysuria, retention, blood in urine Muscle skeletal: Negative for any muscle joint pain, stiffness, myalgias, arthralgias, neck pain, back pain Neurological: Negative for any headache, syncope, numbness or tingling, dizziness. Positive for staring seizures Skin: Negative for any rashes, lumps, itching, abrasions, lacerations Psychiatric: Negative for any depression, anxiety, stress, suicidal ideation, homicidal ideation. Positive for multiple stress Hematologic: Negative for any easy bruising, excessive bruising, easy bleeding Allergies: Negative for any eczema, hives, rash EXAM <PRANEETH Liao - Last Filed: 08/08/21 13:29> Physical Exam Narrative Exam Narrative: Vital signs reviewed. HEET: Head normocephalic atraumatic, TMs clear bilaterally. Posterior pharynx is clear, moist mucous membranes. Nares clear bilaterally. Neck: Supple with no lymphadenopathy or tenderness. No signs of meningismus, negative jolt sign. Cardiac: Regular rate and rhythm no murmurs gallops or rubs, equal peripheral pulses bilaterally. Respiratory: Lungs clear to auscultation bilaterally. No chest tenderness. Abdomen: Soft, nontender, nondistended. No abdominal bruit or pulsatile masses. No hepatosplenomegaly Extremities: No peripheral edema, no signs of gross trauma or deformity. Active full range of motion of all extremities. Neuro: Cranial nerves II through XII intact, no focal neurological deficits. Skin: Clean dry and intact with no rash, purpura, petechiae, vesicles or pustules. Backs/flank: No CVA tenderness, no midline spinal tenderness, no deformity. Psych: Normal mood and affect. No SI, HI or acute psychosis. Const Vital Signs: 08/08/21 11:55 08/08/21 13:15 08/08/21 13:46 Temperature 97.5 F L Temperature Source Temporal Pulse Rate 66 65 78 Respiratory Rate 23 H 18 18 Blood Pressure 152/94 H 115/66 126/66 H Blood Pressure Mean 113 82 Pulse Ox 98 97 Oxygen Delivery Method Room Air Room Air Positive well nourished and well developed General Appearance ED: well developed <Dr. Dheeraj Lopes MD - Last Filed: 08/08/21 13:57> Physical Exam Const Vital Signs: 08/08/21 11:55 08/08/21 13:15 08/08/21 13:46 Temperature 97.5 F L Temperature Source Temporal Pulse Rate 66 65 78 Respiratory Rate 23 H 18 18 Blood Pressure 152/94 H 115/66 126/66 H Blood Pressure Mean 113 82 Pulse Ox 98 97 Oxygen Delivery Method Room Air Room Air MDM <PRANEETH Liao - Last Filed: 08/08/21 13:29> [facility] Narrative Medical decision making narrative: Patient appears well, patient appears nontoxic, vital signs are stable. Patient presents to the emergency department with complaints of a staring seizure, called EMS by her son. Patient was alert and oriented x4 here. Patient did receive a Keppra, phenobarbital laboratory values study to ensure she is taking her medication. Patient's Keppra level will be a send out. Patient's phenobarbital level was 32.6. This is within normal limits. While the patient was here, she had no seizure-like activity. Patient does have a long history of seizures. Patient will follow up with her neurologist. At this time, the patient is stable for discharge instructed return for any worsening symptoms. Lab Data Attestation: I reviewed the patient's lab results. Labs: Laboratory Results - last 24 hr 08/08/21 12:35 Phenobarbital 32.6 <Dr. Dheeraj Lopes MD - Last Filed: 08/08/21 13:57> [facility] Narrative Medical decision making narrative: I have personally performed a face to face assessment of the patient and have reviewed the SHEYLA Note. I performed a substantive portion of the visit including all aspects of the following. My jain findings include: History is remarkable for absence seizure. She has history of seizures. She has history of noncompliance with her meds. She has been under significant stress. She also has history of nonepileptic seizure like activity. Exam is is unremarkable. Neuro exam is normal. Medical Decision Making we will obtain phenobarb level and Keppra level. Phenobarb level is therapeutic. Suspect this is related to stress. Other additions or changes: None Lab Data Labs: Laboratory Results - last 24 hr 08/08/21 12:35 Phenobarbital 32.6 Discharge Plan Triage Chief Complaint: Seizure ED Midlevel Provider: Kobi Huitron ED Provider: Dheeraj Lopes Dx/Rx/DC Orders Clinical Impression: Psychogenic nonepileptic seizure Instructions: ED Seizure, Recurrent (Adult) Prescriptions: No Action ferrous sulfate 325 MG tablet 325 mg PO DAILY@0800 RF: 0 acetaminophen 325 MG tablet 650 mg PO Q4H PRN PRN (Reason: Pain Score 1-10) RF: 0 sennosides-docusate sodium 1 TABLET tablet 2 tab PO BID Qty: 120 RF: 0 modafinil 200 MG tablet 100 mg PO DAILY@0600 Qty: 30 RF: 0 topiramate 100 MG tablet 100 mg PO BID Qty: 60 RF: 0 phenobarbital 32.4 MG tablet 64.8 mg PO BID Qty: 120 RF: 0 gabapentin 300 MG capsule 300 mg PO BID Qty: 60 RF: 0 levetiracetam 1,000 MG tablet 1,000 mg PO BID Qty: 60 RF: 0 amoxicillin-pot clavulanate [amoxicillin-pot clavulanate] 875 MG tablet 875 mg PO Q12H Qty: 20 RF: 0 Primary Care Provider: Himanshu Sanchez Referrals: Himanshu Sanchez MD [Primary Care Provider] - Activity Restrictions/Additional Instructions: Please follow-up with your neurologist Print Language: Irish Disposition Disposition: Home, Self Care Discharge Date/Time: 08/08/21 13:53
[2021-08-08 13:15] VITALS: BP 115/66; PULSE 65; RESP 18; O2SAT 97
[2021-08-08 13:46] VITALS: BP 126/66; PULSE 78; RESP 18
[2021-08-14 17:04] LABS: KEPPRA (LEVETIRACETAM) 31.3 ug/mL (10.0-40.0)
== END 2021-08-08 13:53 | disposition home or self-care (01) ==
PROVIDERS: Nurse Practitioner; Emergency Provider Emergency Medicine; PCP Family Medicine; Visit Provider Emergency Medicine
DX: G40.909 Epilepsy, unspecified, not intractable, without status epilepticus (principal); E66.01 Morbid (severe) obesity due to excess calories; Z68.41 Body mass index [BMI] 40.0-44.9, adult; I10 Essential (primary) hypertension; F41.9 Anxiety disorder, unspecified; Z91.14 Patient's other noncompliance with medication regimen; Z79.899 Other long term (current) drug therapy
CPT/HCPCS: 36415; 80177; 80184; 99282

== ENCOUNTER 2021-08-31 13:49 | Emergency (ER) | payer MEDICAID, SELFPAY ==
[2021-08-31 13:50] VITALS: BP 123/73; PULSE 66; RESP 18; TEMP 36.6; O2SAT 98; BMI 35.5
--- NOTE | 2021-08-31 14:48 | EX.ED.VIS.EY ---
HPI History of Present Illness Chief Complaint: Eye Problem Narrative Narrative: 36-year-old female presenting with burning left eye pain. She states been present for a couple of days. She does not know if she is injured it or not. She does not know if anything is been in her eye or not. She complains of some blurry vision. She states that she feels the burning on the lateral aspect of her left eye. She is not a contact wearer. She has not noted any draining or discharge. There is no matting of her eyelids. [facility] Medical History Cognitive dysfunction Debility HTN (hypertension) Morbid obesity Seizure disorder Home Medications ferrous sulfate 325 mg (65 mg iron) tablet 325 mg PO DAILY@0800 supplement 03/17/20 [History Last Taken Unknown] acetaminophen 325 mg tablet 650 mg PO Q4H PRN PRN Pain Score 1-10 04/06/20 [Rx Last Taken Unknown] gabapentin 300 mg capsule 300 mg PO BID neuropathy #60 caps 04/06/20 [Rx Last Taken Unknown] levetiracetam 1,000 mg tablet 1,000 mg PO BID seizures #60 tabs 04/06/20 [Rx Last Taken Unknown] modafinil 200 mg tablet 100 mg PO DAILY@0600 #30 tabs 04/06/20 [Rx Last Taken Unknown] phenobarbital 32.4 mg tablet 64.8 mg PO BID #120 tabs 04/06/20 [Rx Last Taken Unknown] sennosides 8.6 mg-docusate sodium 50 mg tablet 2 tab PO BID #120 tabs 04/06/20 [Rx Last Taken Unknown] topiramate 100 mg tablet 100 mg PO BID #60 tabs 04/06/20 [Rx Last Taken Unknown] amoxicillin 875 mg-potassium clavulanate 125 mg tablet 875 mg PO Q12H #20 TABLETS 10/09/20 [Rx Last Taken Unknown] erythromycin 5 mg/gram (0.5 %) eye ointment 0.5 inch LEFT EYE TID #3.5 grams 08/31/21 [Rx Last Taken Unknown] Allergy/AdvReac Type Severity Reaction Status Date / Time fluconazole Allergy NEEDS Verified 08/31/21 13:52 FOLLOW-UP naproxen Allergy Hives Verified 08/31/21 13:52 Social History Smoking Status: Never smoker substance use type: does not use ROS ROS ED Constitutional Constitutional ED: Denies chills or fever(s) Eyes Eyes: Reports blurry vision left ENT ENT ED: Denies rhinorrhea Respiratory/Chest Respiratory/Chest: Denies cough or dyspnea Gastrointestinal Gastrointestinal: Denies abdominal pain or constipation Genitourinary Genitourinary ED: Denies dysuria or hematuria Musculoskeletal Musculoskeletal: Denies arthralgias Integumentary Denies abscess or Abrasions Neurologic Neurologic: Denies headache(s) Psychiatric Psychiatric: Denies anxiety or depression Endocrine Endocrinology: Denies polydipsia or polyphagia EXAM Physical Exam Const Vital Signs: 08/31/21 13:50 Temperature 98 F Temperature Source Temporal Pulse Rate 66 Respiratory Rate 18 Blood Pressure 123/73 H Blood Pressure Mean 89 Pulse Ox 98 Oxygen Delivery Method Room Air Positive well nourished General Appearance ED: NAD HEENT atraumatic Eyes PERRL and EOMs intact bilaterally Eyes Narrative: Large central corneal abrasion overlying much of the cornea. General Eye ED: Yes normal appearance of both eyes and normal light reflex Visual Acuity: other Other Details: Able to count fingers at the bedside. Periorbital: periorbital findings normal Eyelid: eyelids normal Conjunctiva: conjunctiva normal Sclera: sclera normal Resp normal respiratory effort and no retractions MDM MDM MDM Narrative Medical decision making narrative: Patient presenting with left thigh pain and visual disturbance. On examination she is a large corneal abrasion overlying most of the cornea on the left eye. The rest of her eye exam is normal with exception of her visual acuities. She states I cant even see the E with the left eye. Right eye 20/200. She is able to finger count at the bedside. I believe this is likely due to her corneal abrasion. At this point while we were talking she notes that she had a seizure the other day was at [facility]. She speculates as to whether this can be how she had an abrasion in her left. She will be started on erythromycin ophthalmic. She can follow-up with ophthalmology. She is counseled not to rub her eye. Return precautions discussed. Impression: 1. Corneal abrasion with Lab Data Attestation: I reviewed the patient's lab results. Discharge Plan Triage Chief Complaint: Eye Problem ED Provider: Anil Fonseca Dx/Rx/DC Orders Prescriptions: New erythromycin 5 mg/gram (0.5 %) ointment 0.5 inch LEFT EYE TID Qty: 3.5 0RF No Action ferrous sulfate 325 MG tablet 325 mg PO DAILY@0800 acetaminophen 325 MG tablet 650 mg PO Q4H PRN PRN (Reason: Pain Score 1-10) 0RF sennosides-docusate sodium 1 TABLET tablet 2 tab PO BID Qty: 120 0RF modafinil 200 MG tablet 100 mg PO DAILY@0600 Qty: 30 0RF topiramate 100 MG tablet 100 mg PO BID Qty: 60 0RF phenobarbital 32.4 MG tablet 64.8 mg PO BID Qty: 120 0RF Rx Instructions: 2 tablets twice a day. gabapentin 300 MG capsule 300 mg PO BID Qty: 60 0RF levetiracetam 1,000 MG tablet 1,000 mg PO BID Qty: 60 0RF amoxicillin-pot clavulanate [amoxicillin-pot clavulanate] 875 MG tablet 875 mg PO Q12H Qty: 20 0RF Primary Care Provider: Himanshu Sanchez Referrals: Matthew Lopez MD [STAFF PHYSICIAN] - Himanshu Sanchez MD [Primary Care Provider] - Disposition Disposition: Home, Self Care
[2021-08-31] MEDS: Erythromycin Base 1 OPTH.TUBE 1 APPLIC EACH EYE (16:43)
[2021-08-31] MEDS: Fluorescein 1 MG STRIP 1 STRIP LEFT EYE (16:49)
[2021-08-31] MEDS: Tetracaine 0.5% Ophthalmic Bottle 1 DRP LEFT EYE (16:49)
== END 2021-08-31 16:50 | disposition home or self-care (01) ==
PROVIDERS: Emergency Provider Student in an Organized Health Care Education/Training Program; PCP Family Medicine; Visit Provider Student in an Organized Health Care Education/Training Program
DX: S05.02XA Injury of conjunctiva and corneal abrasion without foreign body, left eye, initial encounter (principal); E66.01 Morbid (severe) obesity due to excess calories; G40.909 Epilepsy, unspecified, not intractable, without status epilepticus; X58.XXXA Exposure to other specified factors, initial encounter; I10 Essential (primary) hypertension; Z79.899 Other long term (current) drug therapy
CPT/HCPCS: 99282

== ENCOUNTER 2021-09-06 16:32 | Emergency (ER) | payer MEDICAID, SELFPAY ==
[2021-09-06 16:33] VITALS: BP 131/81; PULSE 53; RESP 25; TEMP 36.8; O2SAT 100; BMI 40.1
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
[2021-09-06 19:07] VITALS: BP 136/89; PULSE 91; RESP 13; O2SAT 99
--- NOTE | 2021-09-06 19:14 | EDS_ITS ---
HPI History of Present Illness Chief Complaint: Seizure Informant: patient Onset/Context/Timing Onset: Today Context: Sudden Onset Timing: Intermittent Current Severity: Gone Maximum Severity: Moderate Narrative Narrative: 36-year-old female history of seizure disorder. Reportedly today while lying in bed had a seizure x1. No injuries. States she has been taking her medications. Denies any fall or head injury. Denies any recent illness. Prior similar symptoms: Yes Recent Illness/Hospitalization: Yes PFSH PFS Medical History Cognitive dysfunction Debility HTN (hypertension) Morbid obesity Seizure disorder Home Medications ferrous sulfate 325 mg (65 mg iron) tablet 325 mg PO DAILY@0800 supplement 03/17/20 [History Last Taken Unknown] gabapentin 300 mg capsule 300 mg PO BID neuropathy #60 caps 04/06/20 [Rx Last Taken Unknown] levetiracetam 1,000 mg tablet 1,000 mg PO BID seizures #60 tabs 04/06/20 [Rx Last Taken Unknown] phenobarbital 32.4 mg tablet 64.8 mg PO BID #120 tabs 04/06/20 [Rx Last Taken Unknown] topiramate 100 mg tablet 100 mg PO BID #60 tabs 04/06/20 [Rx Last Taken Unknown] Allergy/AdvReac Type Severity Reaction Status Date / Time fluconazole Allergy NEEDS Verified 09/06/21 16:36 FOLLOW-UP naproxen Allergy Hives Verified 09/06/21 16:36 Social History Smoking Status: Never smoker substance use type: does not use ROS ROS ED ROS Narrative Denies recent illness. Review of Systems ROS Unobtainable: Denies due to encephalopathy Constitutional Constitutional ED: Denies chills Eyes Eyes: Denies blurry vision ENT ENT ED: Denies ear pain Cardiovascular Cardiovascular: Denies chest pain Respiratory/Chest Respiratory/Chest: Denies cough Gastrointestinal Gastrointestinal: Denies abdominal pain Genitourinary Genitourinary ED: Denies dysuria Musculoskeletal Musculoskeletal: Denies arthralgias Integumentary Denies abscess Neurologic Neurologic: Denies headache(s) Psychiatric Psychiatric: Denies anxiety Endocrine Endocrinology: Denies cold intolerance Hematologic/Lymphatic Hematologic/Lymphatic: Denies systems reviewed and no addt'l complaints, except as documented Allergic/Immunologic Allergic/Immunologic ED: Denies mouth swelling or tongue swelling EXAM Physical Exam Narrative Exam Narrative: 36-year-old female no acute distress vital signs stable afebrile. Pulse ox 9% on room air no hypoxia. H EENT exam unremarkable. Atraumatic. Pupils round react to light. Normal speech. Neck nontender no lymphadenopathy. No meningismus. Lungs are clear. Heart regular rhythm. Abdomen soft nontender. Moving all 4 extremities. Neurologically she is awake and alert with no focal motor deficits. Const Vital Signs: 09/06/21 16:33 09/06/21 19:07 Temperature 98.3 F Temperature Source Temporal Pulse Rate 53 L 91 Respiratory Rate 25 H 13 Blood Pressure 131/81 H 136/89 H Blood Pressure Mean 97 104 Pulse Ox 100 99 Oxygen Delivery Method Room Air Room Air Positive well nourished and well developed General Appearance ED: well developed and NAD; Negative for cyanotic or diaphoretic HEENT Reports moist mucous membranes; Denies dry mucous membranes Negative for trauma Mouth ED: No dry mucous membranes Mouth: No dry mucous membranes Eyes PERRL and EOMs intact bilaterally General Eye ED: Negative for pale conjunctiva or scleral icterus Neck no lymphadenopathy, supple and no JVD General: Negative for tenderness Lymph Lymphatic: Negative for other Chest Wall inspection of chest normal and palpation of chest normal Resp normal respiratory effort and clear to auscultation bilaterally Effort and Inspection: Negative for retractions Auscultation: Negative for rales, rhonchi or wheezes Cardio regular rate, regular rhythm, S1 normal heart sound, S2 normal heart sound and no murmurs GI normal to inspection, nondistended, normoactive bowel sounds, non-tender, non- distended and no masses Inspection: Negative for abdominal distention Auscultation: normoactive bowel sounds Palpation: soft; Negative for tender or guarding Back/Spine no CVA tenderness General Back: Negative for CVA tenderness Cervical Spine: Negative for cervical spine tenderness Thoracic Spine / Upper Back: Negative for thoracic spinal tenderness Lumbar Spine / Lower Back: Negative for lumbar spinal tenderness Extremity normal to inspection General Extremety ED: Negative for edema or tenderness General Extremity: Negative for edema Neuro oriented x3 Sensorium / Orientation: alert; Negative for lethargic or stuporous Motor Exam: strength 5/5 throughout Psych mental status grossly normal Appearance: Negative for other Attitude: No agitated Mood & Affect: Negative for depressed, anxious or tearful Skin no rashes or lesions noted and no wounds Rashes: No rashes noted Trauma: Negative for abrasion MDM MDM MDM Narrative Medical decision making narrative: 36-year-old with a history of seizures. Had a seizure today. No injury. Currently she is awake and alert. She will be observed in the emergency department. I doubt that she needs any lab work. Repeat exam patient is doing well at 7:16 PM. She has had no further seizures in the emergency department she will be discharged home to continue her current medications. Discharge Plan Triage Chief Complaint: Seizure ED Provider: Padilla Huerta Dx/Rx/DC Orders Clinical Impression: Seizure, History of seizure Instructions: ED Seizure, Recurrent (Adult) Prescriptions: No Action ferrous sulfate 325 MG tablet 325 mg PO DAILY@0800 topiramate 100 MG tablet 100 mg PO BID Qty: 60 0RF phenobarbital 32.4 MG tablet 64.8 mg PO BID Qty: 120 0RF Rx Instructions: 2 tablets twice a day. gabapentin 300 MG capsule 300 mg PO BID Qty: 60 0RF levetiracetam 1,000 MG tablet 1,000 mg PO BID Qty: 60 0RF Primary Care Provider: Himanshu Sanchez Referrals: Himanshu Sanchez MD [Primary Care Provider] - As Needed Activity Restrictions/Additional Instructions: Continue your current medications. Follow-up with your doctor as needed. Return if you have a recurrent seizure. Disposition Disposition: Home, Self Care
--- NOTE | 2021-09-06 19:30 | CM.ED ---
Addendum entered by Lexy Fu 09/06/21 19:31: Also, Jose's number is [phone]. Original Note: Social Work Note SW also spoke with pt that if she ever feels unsafe in the home to call the police or crisis. Pt stated understanding during previous conversation. Lexy Fu HUMAN RESOURCES RECORDS CLERK, DIRECTOR OF SPEECH PATHOLOGY
--- NOTE | 2021-09-06 19:54 | CM.ED ---
Social Work Note ZORAIDA received call from Tatianna with [facility] CPS with additional questions/concerns. Tatianna states that she was digging in more on pt and needed to call this worker back. ZORAIDA answered Tatianna's questions and provided answers. Tatianna asked if pt was evaluated by crisis. ZORAIDA informed Tatianna that this worker evaluated pt and pt stated she had no history of suicidal plans or attempts, pt denied any current suicidal thoughts or plans, pt repeatedly informed this worker that she was not going to kill herself and that it was never going to happen and that pt said those things but pt stated she did not mean it. So ZORAIDA and felt pt could be discharged home with Safety Plan. Tatianna states understanding, asked if Jose was going to be home tonight. ZORAIDA informed Tatianna that RN was going to be calling Jose regarding discharge and pt had told this worker that Jose is still living with her. Tatianna states understanding. Lexy Fu PRIVATE SECTOR EXECUTIVE, BRANCH CONTROLLER
--- NOTE | 2021-09-07 18:26 | CM.ED ---
SW Note SW called patient to follow up to safety plan. Patient said that she is doing ok.. so far. SW asked if patient had been referred for counseling and patient said I don't know she said something about it. Patient said that she went to marital counseling one time but that was not helpful. Patient said that she does not drive. SW advised patient that [facility] and provided patient with the phone number. SW also advised that the counseling center phone number would be on the phone safety plan that patient completed with the social work professor, Lexy. SW advised that if ED is always available if patient is in crisis.Patient verbalized understanding. Jammie CASTELLON
--- NOTE | 2021-09-10 21:19 | CM.ED ---
ZORAIDA Note SW called patient. Patient said that she was home yesterday and not in the ED (which was correct as patient was in the ED on 09/06/21) . Kadi said that she is doing a little bit better. Kadi said she's fat and then said that she was watching a movie. SW asked patient if she is in counseling and patient said no. SW discussed how counseling can helps and provide support. Jammie CASTELLON
--- NOTE | 2021-09-14 10:43 | CM.ED ---
Social Work Note SW received letter from [facility] stating the referral was not accepted for assessment/investigation. Lexy Fu EXTRUSION DIE REPAIR MANAGER, MANAGER MATERIAL
== END 2021-09-06 19:25 | disposition home or self-care (01) ==
PROVIDERS: Emergency Provider Emergency Medicine; PCP Family Medicine; Visit Provider Emergency Medicine
DX: G40.909 Epilepsy, unspecified, not intractable, without status epilepticus (principal); I10 Essential (primary) hypertension; Z79.899 Other long term (current) drug therapy
CPT/HCPCS: 99284

== ENCOUNTER 2021-09-16 21:27 | Emergency (ER) | payer MEDICAID, SELFPAY ==
[2021-09-16 21:16] VITALS: BP 157/118; PULSE 68; RESP 18; TEMP 36.7; O2SAT 96; BMI 39.6
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
[2021-09-16] MEDS: Phenobarbital 32.4 MG Tablet 64.8 MG PO (21:37)
[2021-09-16] MEDS: Acetaminophen 500 MG Tablet 1000 MG PO (21:37)
[2021-09-16 21:46] LABS: Mucous, Urine 0 SEEN /hpf (<or=2+)
[2021-09-16] MEDS: levETIRAcetam 1,000 MG Tablet 1000 MG PO (21:49)
[2021-09-16] MEDS: Gabapentin 300 MG Capsule PO (21:49)
[2021-09-16] MEDS: Topiramate 100 MG Tablet PO (21:49)
[2021-09-16 21:52] LABS: Color, Urine Yellow (Yellow); Glucose, Dipstick Normal (Normal); Ketone-Dipstick 5 mg/dl (Negative); Leukocyte Esterase-Dipstick 100 /ul (Negative); Nitrite-Dipstick Negative (Negative); Occult Blood-Urine 150 /ul (Negative); Protein-Dipstick 30 mg/dl (Negative); Specific Gravity, Urine 1.025 (1.002-1.030); Urine Clarity Cloudy (Clear); Urine Urobilinogen 4 mg/dl (Normal)
[2021-09-16 22:02] LABS: Bacteria 2+ /hpf (None Seen); Red Blood Cells-Urine 0-5 SEEN /hpf (0-5); Squamous Epithelial Cells - UA 25-50 SEEN /hpf (5-10); Urine Bilirubin Dipstick 1 mg/dL (Negative); White Blood Cells 10-25 SEEN /hpf (0-5)
== END 2021-09-16 22:12 | disposition home or self-care (01) ==
PROVIDERS: Emergency Provider Emergency Medicine; PCP Family Medicine; Visit Provider Emergency Medicine
DX: G40.909 Epilepsy, unspecified, not intractable, without status epilepticus (principal); I10 Essential (primary) hypertension; Z79.899 Other long term (current) drug therapy
CPT/HCPCS: 81001; 87086; 87088; 99285

== ENCOUNTER 2021-09-19 20:13 | Emergency (ER) | payer MEDICAID, SELFPAY ==
[2021-09-19 20:14] VITALS: BP 135/80; PULSE 67; RESP 16; TEMP 35.9; O2SAT 98; BMI 39.9
[2021-09-19] MEDS: Acetaminophen 325 MG Tablet 650 MG PO (20:31)
--- NOTE | 2021-09-19 20:33 | ED.RN ---
patient took her home meds that were missed in front of this nurse per Dr King
--- NOTE | 2021-09-19 20:34 | EDS_ITS ---
HPI History of Present Illness Chief Complaint: Seizure Informant: patient Onset/Context/Timing Onset: Today Context: Sudden Onset Timing: Intermittent (once) and Lasts (unk) Quality: seizure Current Severity: Gone Maximum Severity: Moderate Worsened by: unk Relieved by: unk Associated Symptoms Associated Symptoms: headache Narrative Narrative: Patient had another breakthrough seizure tonight. She states she was sitting on the couch watching TV with a friend of hers when it occurred. She woke up on on the same couch, she did not fall or injure herself. She has a headache, which is typical after seizures, but no other symptoms right now. She did not bite her tongue. She has been compliant with her medications but she arrives here around 8 PM, states she usually takes her nighttime dose of medications just before bed which is in an hour or 2 from now so she has not taken them yet. She denies any drug or substance use tonight. Denies any recent illness. She was seen here 3 days ago for the exact same thing and saw myself, this is the first seizure she has had since then, she has not had a chance yet to follow-up with her neurologist via telephone or in person. [facility] Medical History Cognitive dysfunction Debility HTN (hypertension) Morbid obesity Seizure disorder Home Medications ferrous sulfate 325 mg (65 mg iron) tablet 325 mg PO DAILY@0800 supplement 03/17/20 [History Last Taken Unknown] gabapentin 300 mg capsule 300 mg PO BID neuropathy #60 caps 04/06/20 [Rx Last Taken Unknown] levetiracetam 1,000 mg tablet 1,000 mg PO BID seizures #60 tabs 04/06/20 [Rx Last Taken Unknown] phenobarbital 32.4 mg tablet 64.8 mg PO BID #120 tabs 04/06/20 [Rx Last Taken Unknown] topiramate 100 mg tablet 100 mg PO BID #60 tabs 04/06/20 [Rx Last Taken Unknown] amlodipine 5 mg tablet 1 tab PO DAILY 09/16/21 [History Last Taken Unknown] sulfamethoxazole 800 mg-trimethoprim 160 mg tablet 1 tab PO BID #6 TABLETS 09/19/21 [Rx Last Taken Unknown] Allergy/AdvReac Type Severity Reaction Status Date / Time fluconazole Allergy NEEDS Verified 09/06/21 16:36 FOLLOW-UP naproxen Allergy Hives Verified 09/06/21 16:36 Social History Smoking Status: Never smoker substance use type: does not use ROS ROS ED Constitutional Constitutional ED: Denies chills or fever(s) Eyes Eyes: Denies change in vision or diplopia ENT ENT ED: Denies rhinorrhea or sore throat Cardiovascular Cardiovascular: Denies chest pain or palpitations Respiratory/Chest Respiratory/Chest: Denies cough or dyspnea Gastrointestinal Gastrointestinal: Denies abdominal pain, diarrhea, nausea or vomiting Genitourinary Genitourinary ED: Denies dysuria or hematuria Musculoskeletal Musculoskeletal: Denies back pain or neck pain Integumentary Denies abscess or rash Neurologic Neurologic: Reports as per HPI, headache(s) and seizures; Denies paresthesias or weakness Psychiatric Psychiatric: Denies anxiety or suicidal thoughts EXAM Physical Exam Const Vital Signs: 09/19/21 20:14 09/19/21 22:26 Temperature 96.7 F L Temperature Source Temporal Pulse Rate 67 Respiratory Rate 16 16 Blood Pressure 135/80 H Blood Pressure Mean 98 Pulse Ox 98 Oxygen Delivery Method Room Air Positive well nourished, well developed and obese General Appearance ED: well developed and NAD Nutritional Appearance: obese HEENT Reports moist mucous membranes normocephalic and atraumatic Eyes PERRL and EOMs intact bilaterally Neck full ROM and supple Resp normal respiratory effort and clear to auscultation bilaterally Effort and Inspection: able to speak in complete sentences Cardio regular rate, regular rhythm and no murmurs GI non-tender and non-distended Auscultation: normoactive bowel sounds Palpation: soft Back/Spine no CVA tenderness General Back: other FROM Extremity normal to inspection General Extremety ED: Negative for edema, pulses abnormal or tenderness General Extremity: Negative for edema or pulses abnormal Neuro oriented x3, CN's II-XII intact bilaterally, no sensory deficits noted and deep tendon reflexes 2+ bilaterally Shakeel Coma Scale: document GCS findings Spontaneous Obeys Commands Oriented 15 Sensorium / Orientation: awake and alert Motor Exam: strength 5/5 throughout Skin no rashes or lesions noted and no wounds MDM MDM MDM Narrative Medical decision making narrative: When patient was here several days ago, we did a urinalysis, it was abnormal and sent for a culture although she had no symptoms and she still does not. The culture showed greater than 100,000 CFU/mL of mixed gram-positive organisms and recommendation is to submit a new specimen. Therefore we repeated this today. It does show further signs of infection. However, the patient eloped before I was able to discuss these results and/your prescriptions with her. We did send it for culture. She did take her nighttime doses of medicine and had no further seizure activity while in the emergency department. I am sending a prescription for a 3-day course of Bactrim for her and I will request that staff contact her regarding this. Lab Data Attestation: I reviewed the patient's lab results. Labs: Laboratory Results - last 24 hr 09/19/21 20:50 Urine Color Brown Urine Clarity Cloudy Urine pH 5.0 Ur Specific [place] 1.025 Urine Protein 30 H Urine Glucose (UA) Normal Urine Ketones 15 H Urine Occult Blood 150 H Urine Nitrite Positive H Urine Bilirubin 3 H Urine Urobilinogen 8 H Ur Leukocyte Esterase 500 H Urine RBC 5-10 SEEN Urine WBC 10-25 SEEN Ur Squamous Epith Cells 5-10 SEEN Urine Bacteria 4+ Urine Mucus 1+ Urine Yeast 1+ Discharge Plan Triage Chief Complaint: Seizure ED Provider: Joo King Dx/Rx/DC Orders Clinical Impression: Breakthrough seizure, Epilepsy, Urinary tract infection Prescriptions: New sulfamethoxazole-trimethoprim [sulfamethoxazole-trimethoprim] 1 TABLET tablet 1 tab PO BID Qty: 6 0RF No Action ferrous sulfate 325 MG tablet 325 mg PO DAILY@0800 topiramate 100 MG tablet 100 mg PO BID Qty: 60 0RF phenobarbital 32.4 MG tablet 64.8 mg PO BID Qty: 120 0RF Rx Instructions: 2 tablets twice a day. gabapentin 300 MG capsule 300 mg PO BID Qty: 60 0RF levetiracetam 1,000 MG tablet 1,000 mg PO BID Qty: 60 0RF amlodipine 5 mg tablet 1 tab PO DAILY Primary Care Provider: Himanshu Sanchez Referrals: Himanshu Sanchez MD [Primary Care Provider] - Disposition Disposition: Elopement Discharge Date/Time: 09/19/21 22:33
[2021-09-19 21:01] LABS: Color, Urine Brown (Yellow); Glucose, Dipstick Normal (Normal); Ketone-Dipstick 15 mg/dl (Negative); Leukocyte Esterase-Dipstick 500 /ul (Negative); Nitrite-Dipstick Positive (Negative); Occult Blood-Urine 150 /ul (Negative); Protein-Dipstick 30 mg/dl (Negative); Specific Gravity, Urine 1.025 (1.002-1.030); Urine Clarity Cloudy (Clear); Urine Urobilinogen 8 mg/dl (Normal)
[2021-09-19 21:02] LABS: Urine Bilirubin Dipstick 3 mg/dL (Negative)
[2021-09-19 21:09] LABS: Red Blood Cells-Urine 5-10 SEEN /hpf (0-5)
[2021-09-19 21:10] LABS: Bacteria 4+ /hpf (None Seen); Mucous, Urine 1+ /hpf (<or=2+); Squamous Epithelial Cells - UA 5-10 SEEN /hpf (5-10); Yeast-Urine 1+ /hpf (None Seen)
[2021-09-19 21:11] LABS: White Blood Cells 10-25 SEEN /hpf (0-5)
[2021-09-19 22:26] VITALS: RESP 16
--- NOTE | 2021-09-19 22:26 | NURSING ---
Discussed AMA with patient several times and patient frustrated with the wait for d/c. Discussed the wait time with her and the ride home. Pt still upset and left without signing papers after punching the wall.
--- NOTE | 2021-09-19 22:39 | ED.RN ---
Pt eloped prior to MD re-eval and discharge instructions. Dr King reviewed chart and dx patient with UTI and sent prescription to [facility]. Attempted to call patient twice on cell phone listed, no answer and voicemail box is not set up.
== END 2021-09-19 22:33 | disposition left against medical advice (07) ==
PROVIDERS: Emergency Provider Emergency Medicine; PCP Family Medicine; Visit Provider Emergency Medicine
DX: G40.909 Epilepsy, unspecified, not intractable, without status epilepticus (principal); E66.01 Morbid (severe) obesity due to excess calories; N39.0 Urinary tract infection, site not specified; I10 Essential (primary) hypertension; B96.89 Other specified bacterial agents as the cause of diseases classified elsewhere; Z79.899 Other long term (current) drug therapy
CPT/HCPCS: 81001; 87077; 87086; 87088; 87186; 99284

== ENCOUNTER 2021-09-21 19:38 | Emergency (ER) | payer MEDICAID, SELFPAY ==
[2021-09-21 19:39] VITALS: BP 125/57; PULSE 76; RESP 18; TEMP 36.3; O2SAT 96; BMI 39.9
--- NOTE | 2021-09-21 20:07 | CT_ITS ---
STUDY: CT BRAIN WITHOUT CONTRAST REASON FOR EXAM: Female, 36 years old. Fall. Hit head on nightstand. RADIATION DOSAGE (If Supplied By Facility): CTDIvol = ( 44.99 ) mGy, DLP = ( 762.36 ) mGycm TECHNIQUE: Transaxial CT imaging of the brain was performed without administration of intravenous contrast material. Individualized dose optimization techniques were used for this CT. COMPARISON: 04/10/2020. FINDINGS: Normal soft tissue structures. Normal calvarium. There is mild cerebral atrophy with widening of the extra-axial spaces and ventricular dilatation. Is most marked on the left. Normal white matter tracts of the cerebral hemispheres. Normal basal ganglia and thalami. Normal brainstem. There is mild cerebellar atrophy. There is no intracranial hemorrhage. There are no findings of an acute ischemic infarction. Normal visualized paranasal sinuses. CT/Brain/Head without Contrast IMPRESSION: Chronic involutional changes stable when compared to the prior exam. Electronically Signed: Rickie Medeiros DO at 20:38 EDT ,
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
[2021-09-21] MEDS: Acetaminophen 500 MG Tablet 1000 MG PO (21:26)
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
== END 2021-09-21 21:30 | disposition home or self-care (01) ==
PROVIDERS: Emergency Provider Emergency Medicine; PCP Family Medicine; Visit Provider Emergency Medicine
DX: S09.90XA Unspecified injury of head, initial encounter (principal); E66.01 Morbid (severe) obesity due to excess calories; G40.909 Epilepsy, unspecified, not intractable, without status epilepticus; I10 Essential (primary) hypertension; W01.190A Fall on same level from slipping, tripping and stumbling with subsequent striking against furniture, initial encounter; Z79.899 Other long term (current) drug therapy
CPT/HCPCS: 70450; 99285

== ENCOUNTER 2021-09-23 15:24 | Emergency (ER) | payer MEDICAID, SELFPAY ==
[2021-09-23 15:25] VITALS: BP 130/73; PULSE 79; RESP 16; TEMP 36.9; O2SAT 95
[2021-09-23 15:29] VITALS: BP 130/73; PULSE 79; RESP 16; TEMP 36.9; O2SAT 95; BMI 36.1
--- NOTE | 2021-09-23 16:01 | EDS_ITS ---
HPI History of Present Illness Chief Complaint: Seizure Narrative Narrative: Patient with past medical history of epilepsy presents with breakthrough seizure. She states that she has been seen multiple times in the last few days to weeks because of breakthrough seizures. She is undergoing a lot of stress in her life because her and she are . She states that she was at her friend's house today, one of her neighbors, and had another breakthrough seizure. She takes multiple medications for seizure, but cannot recall who her neurologist is. In review of her chart she takes Keppra, topiramate, gabapentin, and other medications. She denies any loss of bowel or bladder. No other symptoms currently. [facility] Medical History Cognitive dysfunction Debility HTN (hypertension) Morbid obesity Seizure disorder Home Medications ferrous sulfate 325 mg (65 mg iron) tablet 325 mg PO DAILY@0800 supplement 03/17/20 [History Last Taken Unknown] gabapentin 300 mg capsule 300 mg PO BID neuropathy #60 caps 04/06/20 [Rx Last Taken Unknown] levetiracetam 1,000 mg tablet 1,000 mg PO BID seizures #60 tabs 04/06/20 [Rx Last Taken Unknown] phenobarbital 32.4 mg tablet 64.8 mg PO BID #120 tabs 04/06/20 [Rx Last Taken Unknown] topiramate 100 mg tablet 100 mg PO BID #60 tabs 04/06/20 [Rx Last Taken Unknown] amlodipine 5 mg tablet 1 tab PO DAILY 09/16/21 [History Last Taken Unknown] sulfamethoxazole 800 mg-trimethoprim 160 mg tablet 1 tab PO BID #6 TABLETS 09/19/21 [Rx Last Taken Unknown] Allergy/AdvReac Type Severity Reaction Status Date / Time fluconazole Allergy NEEDS Verified 09/21/21 19:42 FOLLOW-UP naproxen Allergy Hives Verified 09/21/21 19:42 Social History Smoking Status: Never smoker substance use type: does not use ROS ROS ED ROS Narrative Constitutional: No fever, no chills. HEENT: No sore throat. No neck pain. No loss of vision. No rhinorrhea. Cardiovascular: No chest pain. No palpitations. No pedal edema. Respiratory: No cough, no shortness of breath. Abdominal: No abdominal pain. No nausea. No vomiting. Genitourinary: No dysuria. No hematuria. Musculoskeletal: No myalgias. No arthralgias. Neurologic: No headaches. No dizziness. No lightheadedness. Breakthrough seizures. Skin: No rash. No change in color. Psychiatric: No depression. No anxiety. Positive stress regarding separation with . EXAM Physical Exam Narrative Exam Narrative: Afebrile. Vital signs noted. HEENT: Normocephalic. Atraumatic. PERRL, EOMI. Neck soft and supple. No point tenderness or step off. Cardiovascular: Regular rate and rhythm. No murmurs, rubs, or gallops appreciated. Respiratory: No tachypnea. Lungs clear to auscultation bilaterally. Gastrointestinal: Abdomen soft, nontender, with normoactive bowel sounds. No rebound or guarding. Neurological: Awake. Alert. Oriented to person, place, and year. Nonfocal, nonlateralizing. Skin: No rash. Normal color. No pallor. Musculoskeletal: No pedal edema. Full range of motion extremities. Const Vital Signs: 09/23/21 15:29 09/23/21 15:25 Temperature 98.4 F 98.4 F Temperature Source Temporal Temporal Pulse Rate 79 79 Respiratory Rate 16 16 Blood Pressure 130/73 H 130/73 H Blood Pressure Mean 92 92 Pulse Ox 95 95 Oxygen Delivery Method Room Air Room Air MDM MDM MDM Narrative Medical decision making narrative: I reviewed her prior visits. This is her fourth visit this month. While she states she had seizures on the and on the , one of her visits was for a head injury without seizure activity. When asked if she has had any recent illnesses involving fever or cough, she denied. However, she does state that she does not consistently take her antiepileptic seizure medications because she forgets. Attempt will be made to draw a Keppra level and that topiramate level. She will be observed under seizure precautions. Of note, she had been offered family welfare social work professor regarding her separation/divorce, and has declined those in the past and not followed up. Her laboratory work are send outs. She is not in status epilepticus as she is awake, alert, and wishing to charge her cellular telephone. I feel she can follow-up with her neurologist and her primary care physician. Disposition is discharged home in stable condition. Discharge Plan Triage Chief Complaint: Seizure ED Provider: Dorian Pittman Dx/Rx/DC Orders Clinical Impression: Epilepsy, Depression, Breakthrough seizure Instructions: ED Seizure, Recurrent (Adult) Prescriptions: No Action ferrous sulfate 325 MG tablet 325 mg PO DAILY@0800 topiramate 100 MG tablet 100 mg PO BID Qty: 60 0RF phenobarbital 32.4 MG tablet 64.8 mg PO BID Qty: 120 0RF Rx Instructions: 2 tablets twice a day. gabapentin 300 MG capsule 300 mg PO BID Qty: 60 0RF levetiracetam 1,000 MG tablet 1,000 mg PO BID Qty: 60 0RF amlodipine 5 mg tablet 1 tab PO DAILY sulfamethoxazole-trimethoprim [sulfamethoxazole-trimethoprim] 1 TABLET tablet 1 tab PO BID Qty: 6 0RF Primary Care Provider: Himanshu Sanchez Referrals: Himanshu Sanchez MD [Primary Care Provider] - 1 Day Disposition Disposition: Home, Self Care Discharge Date/Time: 09/23/21 17:59
--- NOTE | 2021-09-23 17:19 | ED.RN ---
Pts neighbor/caregiver called and explained why pt is not taking her seizure meds. Pts is filing for divorce and when he goes to his girlfriends house he take their 4 children to his sisters house. Per neighbor pt is not able to take care of herself or her kids. Pt has chosen to stop taking her meds because her is no longer giving them to her. Pt has been seen by social work several times and has not followed up. Dr Pittman is aware and is also aware that pt is making to the choice to not take meds and also to not take care of herself and her children.
[2021-09-29 14:26] LABS: Topiramate 6.5 ug/mL (2.0-25.0)
== END 2021-09-23 17:59 | disposition home or self-care (01) ==
PROVIDERS: Emergency Provider Emergency Medicine; PCP Family Medicine; Visit Provider Emergency Medicine
DX: G40.909 Epilepsy, unspecified, not intractable, without status epilepticus (principal); I10 Essential (primary) hypertension; F32.A Depression, unspecified; Z79.899 Other long term (current) drug therapy
CPT/HCPCS: 80177; 80201; 99284; A4216

== ENCOUNTER 2021-10-10 18:53 | Emergency (ER) | payer MEDICAID, SELFPAY ==
[2021-10-10 18:54] VITALS: BP 121/73; PULSE 79; RESP 16; TEMP 36.7; O2SAT 98; BMI 39.9
--- NOTE | 2021-10-10 19:25 | EX.ED.DYSGE1 ---
HPI History of Present Illness Chief Complaint: Seizure Onset/Context/Timing Onset: Today Narrative Narrative: Patient brought in by EMS after reportedly having a seizure at the park today. Patient has a history of seizure disorder. No recent changes to her medications. She is sure that she did take her seizure medication this morning. She believes her last seizure was a month ago, however on review of records the patient was here in late August with breakthrough seizures. At this time she feels back to her baseline. [facility] Medical History Cognitive dysfunction Debility HTN (hypertension) Morbid obesity Seizure disorder Home Medications ferrous sulfate 325 mg (65 mg iron) tablet 325 mg PO DAILY@0800 supplement 03/17/20 [History Last Taken Unknown] gabapentin 300 mg capsule 300 mg PO BID neuropathy #60 caps 04/06/20 [Rx Last Taken Unknown] levetiracetam 1,000 mg tablet 1,000 mg PO BID seizures #60 tabs 04/06/20 [Rx Last Taken Unknown] phenobarbital 32.4 mg tablet 64.8 mg PO BID #120 tabs 04/06/20 [Rx Last Taken Unknown] topiramate 100 mg tablet 100 mg PO BID #60 tabs 04/06/20 [Rx Last Taken Unknown] amlodipine 5 mg tablet 1 tab PO DAILY 09/16/21 [History Last Taken Unknown] sulfamethoxazole 800 mg-trimethoprim 160 mg tablet 1 tab PO BID #6 TABLETS 09/19/21 [Rx Last Taken Unknown] Allergy/AdvReac Type Severity Reaction Status Date / Time fluconazole Allergy NEEDS Verified 10/10/21 19:02 FOLLOW-UP naproxen Allergy Hives Verified 10/10/21 19:02 Social History Smoking Status: Never smoker substance use type: does not use ROS ROS ED Constitutional Constitutional ED: Denies chills or fever(s) Eyes Eyes: Denies change in vision or discharge from eye(s) ENT ENT ED: Denies discharge from eye(s), rhinorrhea or sore throat Cardiovascular Cardiovascular: Denies chest pain or palpitations Respiratory/Chest Respiratory/Chest: Denies cough or dyspnea Gastrointestinal Gastrointestinal: Denies abdominal pain, diarrhea, nausea or vomiting Genitourinary Genitourinary ED: Denies difficulty urinating or dysuria Musculoskeletal Musculoskeletal: Denies back pain or extremity pain Integumentary Denies Abrasions or rash Neurologic Neurologic: Denies headache(s) or weakness Allergic/Immunologic Allergic/Immunologic ED: Denies lip swelling or urticaria EXAM Physical Exam Const Vital Signs: 10/10/21 18:54 Temperature 98.0 F Temperature Source Temporal Pulse Rate 79 Respiratory Rate 16 Blood Pressure 121/73 H Blood Pressure Mean 89 Pulse Ox 98 Oxygen Delivery Method Room Air Positive well nourished and well developed General Appearance ED: well developed HEENT Reports moist mucous membranes Eyes PERRL and EOMs intact bilaterally Neck no lymphadenopathy Chest Wall inspection of chest normal and palpation of chest normal Resp normal respiratory effort and clear to auscultation bilaterally Cardio regular rate and regular rhythm GI normal to inspection, nondistended, normoactive bowel sounds and non-tender Palpation: soft Extremity normal to inspection Neuro oriented x3 and no sensory deficits noted Motor Exam: strength 5/5 throughout Skin no rashes or lesions noted MDM MDM MDM Narrative Medical decision making narrative: Patient reports she has back to her baseline at this time. She had no tongue bite injury. She is drinking a soda at the time of my exam and she was observed ambulating to the restroom without difficulty. She will be discharged to home to continue her antiepileptic medication. Discharge Plan Triage Chief Complaint: Seizure ED Provider: Patricia Shannon Dx/Rx/DC Orders Clinical Impression: Breakthrough seizure Instructions: ED Seizure, Recurrent (Adult) Prescriptions: No Action ferrous sulfate 325 MG tablet 325 mg PO DAILY@0800 topiramate 100 MG tablet 100 mg PO BID Qty: 60 0RF phenobarbital 32.4 MG tablet 64.8 mg PO BID Qty: 120 0RF Rx Instructions: 2 tablets twice a day. gabapentin 300 MG capsule 300 mg PO BID Qty: 60 0RF levetiracetam 1,000 MG tablet 1,000 mg PO BID Qty: 60 0RF amlodipine 5 mg tablet 1 tab PO DAILY sulfamethoxazole-trimethoprim [sulfamethoxazole-trimethoprim] 1 TABLET tablet 1 tab PO BID Qty: 6 0RF Primary Care Provider: Himanshu Sanchez Referrals: Himanshu Sanchez MD [Primary Care Provider] - As Needed Disposition Disposition: Home, Self Care
[2021-10-10 19:34] VITALS: BP 135/80; PULSE 78; RESP 15; O2SAT 99
== END 2021-10-10 20:00 | disposition home or self-care (01) ==
PROVIDERS: Emergency Provider Emergency Medicine; PCP Family Medicine; Visit Provider Emergency Medicine
DX: R56.9 Unspecified convulsions (principal); I10 Essential (primary) hypertension; Z79.899 Other long term (current) drug therapy
CPT/HCPCS: 99284

== ENCOUNTER 2021-11-14 16:11 | Emergency (ER) | payer MEDICAID, SELFPAY ==
[2021-11-14 16:31] VITALS: BP 114/95; PULSE 98; RESP 16; TEMP 36.6; O2SAT 99; BMI 37.4
--- NOTE | 2021-11-14 17:07 | EX.ED.DYSGE1 ---
HPI History of Present Illness Chief Complaint: Seizure Informant: patient Onset/Context/Timing Onset: Today Context: Sudden Onset Timing: Intermittent and Lasts (Unknown) Quality: Possible seizure Location: Generalized Worsened by: Nothing Relieved by: Nothing Narrative Narrative: Patient presents with possible seizure that occurred today. Patient states she was feeling tired today and sat down. Patient states she laid her head on the table. Patient does not remember any events after that. Patient thinks she may have had a seizure. Patient denies any incontinence of urine or stool. Patient did not bite her tongue. Patient does not remember waking up after this. Patient does not remember her antiepileptic medications. Patient thinks she has been taking these as prescribed. [facility] Medical History Cognitive dysfunction Debility HTN (hypertension) Morbid obesity Seizure disorder Home Medications ferrous sulfate 325 mg (65 mg iron) tablet 325 mg PO DAILY@0800 supplement 03/17/20 [History Last Taken Unknown] gabapentin 300 mg capsule 300 mg PO BID neuropathy #60 caps 04/06/20 [Rx Last Taken Unknown] levetiracetam 1,000 mg tablet 1,000 mg PO BID seizures #60 tabs 04/06/20 [Rx Last Taken Unknown] phenobarbital 32.4 mg tablet 64.8 mg PO BID #120 tabs 04/06/20 [Rx Last Taken Unknown] topiramate 100 mg tablet 100 mg PO BID #60 tabs 04/06/20 [Rx Last Taken Unknown] amlodipine 5 mg tablet 1 tab PO DAILY 09/16/21 [History Last Taken Unknown] sulfamethoxazole 800 mg-trimethoprim 160 mg tablet 1 tab PO BID #6 TABLETS 09/19/21 [Rx Last Taken Unknown] Allergy/AdvReac Type Severity Reaction Status Date / Time fluconazole Allergy NEEDS Verified 11/14/21 17:46 FOLLOW-UP naproxen Allergy Hives Verified 11/14/21 17:46 Surgical History no surgical history no surgical history Social History Smoking Status: Never smoker substance use type: does not use ROS ROS ED Constitutional Constitutional ED: Denies chills or fever(s) Eyes Eyes: Denies blurry vision or change in vision ENT ENT ED: Denies rhinorrhea or sore throat Cardiovascular Cardiovascular: Denies chest pain or palpitations Respiratory/Chest Respiratory/Chest: Denies cough or dyspnea Gastrointestinal Gastrointestinal: Denies nausea or vomiting Genitourinary Genitourinary ED: Denies dysuria or hematuria Musculoskeletal Musculoskeletal: Denies back pain or neck pain Integumentary Denies abscess or rash Neurologic Neurologic: Reports headache(s); Denies weakness Allergic/Immunologic Allergic/Immunologic ED: Denies mouth swelling or urticaria EXAM Physical Exam Const Vital Signs: 11/14/21 16:31 11/14/21 18:45 11/14/21 21:00 Temperature 97.8 F Temperature Source Temporal Pulse Rate 98 66 74 Respiratory Rate 16 16 18 Blood Pressure 114/95 H 124/82 H Blood Pressure Mean 101 96 Pulse Ox 99 96 97 Oxygen Delivery Method Room Air Room Air Room Air 11/14/21 22:23 Temperature Temperature Source Pulse Rate 74 Respiratory Rate 16 Blood Pressure 136/90 H Blood Pressure Mean 105 Pulse Ox 98 Oxygen Delivery Method Room Air Positive well nourished, well developed and obese General Appearance ED: well developed and NAD Nutritional Appearance: obese HEENT Reports moist mucous membranes Neck supple and no JVD Resp normal respiratory effort and clear to auscultation bilaterally Cardio regular rate, regular rhythm and no murmurs GI normal to inspection, nondistended, normoactive bowel sounds and non-tender Palpation: soft Extremity normal to inspection General Extremety ED: Negative for edema or tenderness General Extremity: Negative for edema Neuro oriented x3, CN's II-XII intact bilaterally and no sensory deficits noted Sensorium / Orientation: alert Motor Exam: strength 5/5 throughout Psych mental status grossly normal Skin no rashes or lesions noted MDM MDM MDM Narrative Medical decision making narrative: Phenobarbital level was ordered but was unable to be completed in the lab tonight. Patient was observed here in the emergency department for over 6 hours. Patient had no further seizure activity. Patient was instructed to follow-up with her primary care physician for the results of her phenobarbital level. Patient understood and was agreeable with the plan. All questions were answered. Discharge Plan Triage Chief Complaint: Seizure ED Provider: Kiel Galvez Dx/Rx/DC Orders Clinical Impression: Syncope, Seizure disorder Instructions: ED Seizure, Recurrent (Adult) Prescriptions: No Action ferrous sulfate 325 MG tablet 325 mg PO DAILY@0800 topiramate 100 MG tablet 100 mg PO BID Qty: 60 0RF phenobarbital 32.4 MG tablet 64.8 mg PO BID Qty: 120 0RF Rx Instructions: 2 tablets twice a day. gabapentin 300 MG capsule 300 mg PO BID Qty: 60 0RF levetiracetam 1,000 MG tablet 1,000 mg PO BID Qty: 60 0RF amlodipine 5 mg tablet 1 tab PO DAILY sulfamethoxazole-trimethoprim [sulfamethoxazole-trimethoprim] 1 TABLET tablet 1 tab PO BID Qty: 6 0RF Primary Care Provider: Himanshu Sanchez Referrals: Himanshu Sanchez MD [Primary Care Provider] - 3-5 Days Disposition Disposition: Home, Self Care
[2021-11-14 18:45] VITALS: BP 124/82; PULSE 66; RESP 16; O2SAT 96
[2021-11-14 21:00] VITALS: PULSE 74; RESP 18; O2SAT 97
--- NOTE | 2021-11-14 21:01 | NURSING ---
Lab working on machine that runs the pending lab. unsure how long it will be for results. updated.
[2021-11-14 22:23] VITALS: BP 136/90; PULSE 74; RESP 16; O2SAT 98
[2021-11-14 22:48] VITALS: BP 136/90; PULSE 74; RESP 16; O2SAT 98
== END 2021-11-14 22:49 | disposition home or self-care (01) ==
PROVIDERS: Emergency Provider Emergency Medicine; PCP Family Medicine; Visit Provider Emergency Medicine
DX: G40.909 Epilepsy, unspecified, not intractable, without status epilepticus (principal); E66.01 Morbid (severe) obesity due to excess calories; R55 Syncope and collapse; I10 Essential (primary) hypertension; Z79.899 Other long term (current) drug therapy
CPT/HCPCS: 80184; 99284

== ENCOUNTER 2022-02-17 14:36 | Emergency (ER) | payer MEDICAID, SELFPAY ==
[2022-02-17 14:37] VITALS: BP 148/105; PULSE 84; RESP 16; TEMP 36.4; O2SAT 100; BMI 38.2
--- NOTE | 2022-02-17 15:28 | CT_ITS ---
INDICATION: headache, seizure, ?injury EXAMINATION: CT BRAIN - CT Head or Brain W/O Contrast Injection TECHNIQUE: Multiple axial images were obtained of the head without intravenous contrast. A radiation dose optimization technique was used for this scan. IV Contrast dosage and agent: None. COMPARISON: September 21, 2021 FINDINGS: BRAIN PARENCHYMA: No intra- or extra-axial hemorrhage. No evidence of acute infarct. No intracranial mass or mass effect. There is preservation of the rivera/white matter interface. Posterior fossa structures are unremarkable. CSF SPACES: Asymmetric cortical atrophy on the left with hypoattenuation in the left temporal lobe possibly congenital or due to prior trauma, or old infarct. No hydrocephalus. Basal cisterns are patent. CALVARIUM, SKULL BASE, PARANASAL SINUSES AND MASTOID AIR CELLS: Clear. No discrete lytic or blastic abnormalities. ORBITS: Both globes, extraocular muscles, optic nerves and retrobulbar fat appear unremarkable. No significant change since prior exam CT/Brain/Head without Contrast IMPRESSION: Asymmetric left cortical atrophy and possible old infarct or other nonspecific injury left temporal lobe. No evidence for obstructive hydrocephalus mass or acute bleed Electronically Signed: Angel Ruiz MD at 16:55 EST Reading Location ID and State: [address] [place] [address] , Service support ,
--- NOTE | 2022-02-17 15:28 | CT_ITS ---
INDICATION: seizure, pain, ?injury EXAMINATION: CT CERVICAL SPINE - CT Spine Cervical W/O Contrast Injection TECHNIQUE: Helically acquired images were obtained of the cervical spine. 2D reformatted images were reviewed. A radiation dose optimization technique was used for this scan. IV Contrast dosage and agent: None. COMPARISON: None. FINDINGS: VERTEBRAE: No fracture or traumatic subluxation. No discrete lytic or blastic abnormality. Normal alignment. Normal craniocervical junction and cervicothoracic junction. DISCS and SPINAL CANAL: Narrowed disc space at C4-5 with minor endplate spurring producing mild spinal stenosis and left neural foraminal stenosis. The other disc space heights are preserved. No critical stenosis. NECK SOFT TISSUES: No prevertebral soft tissue swelling. There is no cervical adenopathy. LUNG APICES: Clear. CT/Spine Cervical without Contras IMPRESSION: Mild spondylosis most pronounced at C4-5 No evidence of acute cervical spinal fracture or spondylolisthesis. Electronically Signed: Angel Ruiz MD at 16:56 EST ,
--- NOTE | 2022-02-17 15:30 | EX.ED.DYSGE1 ---
HPI History of Present Illness Chief Complaint: Seizure Informant: patient Narrative Narrative: Patient states she was told her sister witnessed her have a seizure while at home today. She does not know anything about ahead and the patient is the only available historian. She states she thinks she missed her medications this morning. She does not know what medications she is on, we reviewed her EMR chart to see what she takes. She does not know if she has had a recent illness. She does not know if she injured herself she does not remember the scenario that she was in just prior to the seizure, she states right now she feels malaised and has a headache and her neck hurts. She denies pain elsewhere. [facility] Medical History Cognitive dysfunction Debility HTN (hypertension) Morbid obesity Seizure disorder Home Medications ferrous sulfate 325 mg (65 mg iron) tablet 325 mg PO DAILY@0800 supplement 03/17/20 [History Last Taken Unknown] gabapentin 300 mg capsule 300 mg PO BID neuropathy #60 caps 04/06/20 [Rx Last Taken Unknown] levetiracetam 1,000 mg tablet 1,000 mg PO BID seizures #60 tabs 04/06/20 [Rx Last Taken Unknown] phenobarbital 32.4 mg tablet 64.8 mg PO BID #120 tabs 04/06/20 [Rx Last Taken Unknown] topiramate 100 mg tablet 100 mg PO BID #60 tabs 04/06/20 [Rx Last Taken Unknown] amlodipine 5 mg tablet 1 tab PO DAILY 09/16/21 [History Last Taken Unknown] sulfamethoxazole 800 mg-trimethoprim 160 mg tablet 1 tab PO BID #6 TABLETS 02/17/22 [Rx Last Taken Unknown] Allergy/AdvReac Type Severity Reaction Status Date / Time fluconazole Allergy NEEDS Verified 02/17/22 14:37 FOLLOW-UP naproxen Allergy Hives Verified 02/17/22 14:37 Social History Smoking Status: Never smoker substance use type: does not use ROS ROS ED Review of Systems ROS Unobtainable: due to mental condition Constitutional Constitutional ED: Denies chills or fever(s) Eyes Eyes: Denies change in vision or diplopia ENT ENT ED: Denies rhinorrhea or sore throat Cardiovascular Cardiovascular: Denies chest pain or palpitations Respiratory/Chest Respiratory/Chest: Denies cough or dyspnea Gastrointestinal Gastrointestinal: Denies abdominal pain, diarrhea, nausea or vomiting Genitourinary Genitourinary ED: Denies dysuria or hematuria Musculoskeletal Musculoskeletal: Reports neck pain; Denies back pain Integumentary Denies abscess or rash Neurologic Neurologic: Reports confusion and headache(s); Denies paresthesias or weakness Psychiatric Psychiatric: Denies anxiety or suicidal thoughts EXAM Physical Exam Const Vital Signs: 02/17/22 14:37 Temperature 97.6 F L Temperature Source Temporal Pulse Rate 84 Respiratory Rate 16 Blood Pressure 148/105 H Blood Pressure Mean 119 Pulse Ox 100 Oxygen Delivery Method Room Air Positive well nourished and well developed Constitutional Narrative: Keenly alert, well-appearing, conversive, but states she feels a little disoriented. Able to follow commands without difficulty. General Appearance ED: well developed and NAD HEENT Reports moist mucous membranes normocephalic and atraumatic Eyes PERRL and EOMs intact bilaterally Neck full ROM and supple Neck Narrative: Tender around C4 in the midline, no step-off or obvious signs of trauma, no other areas of bony tenderness. Resp normal respiratory effort and clear to auscultation bilaterally Cardio regular rate, regular rhythm and no murmurs Rate: Negative for tachycardic GI non-tender and non-distended Auscultation: normoactive bowel sounds Palpation: soft Back/Spine no CVA tenderness General Back: other FROM Extremity normal to inspection Extremity Narrative: FROM through all 4 extremities without pain or issue/difficulty General Extremety ED: Negative for edema, pulses abnormal or tenderness General Extremity: Negative for edema or pulses abnormal Neuro CN's II-XII intact bilaterally and no sensory deficits noted Sensorium / Orientation: awake, alert and orientation impaired Motor Exam: strength 5/5 throughout Skin no rashes or lesions noted and no wounds MDM MDM MDM Narrative Medical decision making narrative: Given that the patient was disoriented, and could give me relatively little information about the events of today and there was no other historians available, I did more of a work-up than I might have usually for breakthrough seizure. It is certainly possible that she was postictal giving her disorientation, this proved to be more likely the case since her orientation cleared and improved with observation. Her work-up is negative except for her urinalysis which took some time for her to provide, which does show indicators of infection, so I will send that for culture, start her on treatment, she was given her morning medications assuming she forgot them and did not have any further seizure activity for several hours here in emergency department. Discharged with a prescription for Bactrim and follow-up advised. Lab Data Attestation: I reviewed the patient's lab results. Labs: Laboratory Results - last 24 hr 02/17/22 02/17/22 02/17/22 16:15 16:15 17:20 WBC 5.0 RBC 3.35 L Hgb 11.2 L Hct 34.7 L MCV 103.6 H MCH 33.4 H MCHC 32.3 RDW Std Deviation 51.4 H RDW Coeff of [place] 13.2 Plt Count 202 MPV 11.2 Immature Gran % (Auto) 0.200 Neut % (Auto) 66.0 Lymph % (Auto) 26.8 [place] % (Auto) 5.8 Eos % (Auto) 1.0 Baso % (Auto) 0.2 Absolute Neuts (auto) 3.3 Absolute Lymphs (auto) 1.33 Nucleated RBC % 0 Sodium 138 Potassium 3.7 Chloride 107 Carbon Dioxide 26.0 Anion Gap 5 BUN 12 Creatinine 0.82 Estim Creat Clear Calc 84.52 Est GFR (MDRD) Af Amer 101 Est GFR (MDRD) Non-Af 83 BUN/Creatinine Ratio 14.7 Glucose 93 Calcium 8.7 Urine Color Yellow Urine Clarity Cloudy Urine pH 5.0 Ur Specific [place] 1.030 Urine Protein 30 H Urine Glucose (UA) Normal Urine Ketones 50 H Urine Occult Blood 25 H Urine Nitrite Positive H Urine Bilirubin 3 H Urine Urobilinogen 8 H Ur Leukocyte Esterase 500 H Radiography Diagnostic Testing: Clinical Impression(s) from Imaging Studies Brain CT 02/17/22 15:28 IMPRESSION: Asymmetric left cortical atrophy and possible old infarct or other nonspecific injury left temporal lobe. No evidence for obstructive hydrocephalus mass or acute bleed Electronically Signed: Angel Ruiz MD at 16:55 EST , Cervical Spine CT 02/17/22 15:28 IMPRESSION: Mild spondylosis most pronounced at C4-5 No evidence of acute cervical spinal fracture or spondylolisthesis. Electronically Signed: Angel Ruiz MD at 16:56 EST , Discharge Plan Triage Chief Complaint: Seizure ED Provider: Joo King Dx/Rx/DC Orders Clinical Impression: Breakthrough seizure, Seizure disorder, Urinary tract infection Instructions: ED Seizure, Recurrent (Adult), ED Cystitis Female Adult Prescriptions: New sulfamethoxazole-trimethoprim [sulfamethoxazole-trimethoprim] 800-160 mg tablet 1 tab PO BID Qty: 6 0RF No Action ferrous sulfate 325 MG tablet 325 mg PO DAILY@0800 topiramate 100 MG tablet 100 mg PO BID Qty: 60 0RF phenobarbital 32.4 MG tablet 64.8 mg PO BID Qty: 120 0RF Rx Instructions: 2 tablets twice a day. gabapentin 300 MG capsule 300 mg PO BID Qty: 60 0RF levetiracetam 1,000 MG tablet 1,000 mg PO BID Qty: 60 0RF amlodipine 5 mg tablet 1 tab PO DAILY Primary Care Provider: Himanshu Sanchez Referrals: Himanshu Sanchez MD [Primary Care Provider] - 3-5 Days Disposition Disposition: Home, Self Care
[2022-02-17] MEDS: Phenobarbital 32.4 MG Tablet 64.8 MG PO (15:41)
[2022-02-17 16:26] LABS: Absolute Lymphocyte Count 1.33 X10^3/uL (0.83-4.51); Absolute Neutrophil Count 3.3 X10^3/uL (2.0-7.7); Basophil# 0.01 X10^3/uL; Basophil% 0.2 % (0-1); Eosinophil# 0.05 X10^3/uL; Hematocrit 34.7 % (37-47); Hemoglobin 11.2 g/dL (12.0-15.0); Lymphocyte # 1.33 X10^3/ul (0.83-4.51); Lymphocyte % 26.8 % (19-41); Mean Corp Hgb Conc 32.3 g/dL (32-36); Mean Corpuscular Hgb 33.4 pg (27.0-32.0); Mean Corpuscular Volume 103.6 fL (81-99); Mean Platelet Vol. 11.2 fl (6.2-12.0); Monocyte# 0.29 X10^3/uL; Monocyte% 5.8 % (0-10); NRBC Flagged by Analyzer 0 % (0-5); Neutrophil # 3.27 X10^3/uL (2.7-7.7); Platelet Count 202 K/mm3 (150-450); RBC Distribution Width CV 13.2 % (11.6-14.6); RBC Distribution Width SD 51.4 fl (35.1-43.9); Red Blood Count 3.35 M/mm3 (4.2-5.4)
[2022-02-17 16:40] LABS: Anion Gap 5 (5-15); BUN 12 mg/dL (7-18); BUN/Creat Ratio 14.7 RATIO (10-20); Calcium,Total 8.7 mg/dL (8.5-10.1); Chloride 107 mmol/L (98-107); Creatinine, Serum 0.82 mg/dL (0.55-1.02); EST Glomerular Filtration Rate 83 mL/min (>60); Est Glom Filt Rate - Afr Amer 101 mL/min (>60); Estimated Creatinine Clearance 84.52 ml/min; Glucose 93 mg/dL (74-106); Potassium 3.7 mmol/L (3.5-5.1); Sodium Level 138 mmol/L (136-145)
[2022-02-17] MEDS: levETIRAcetam 1,000 MG Tablet 1000 MG PO (16:40)
[2022-02-17] MEDS: Topiramate 100 MG Tablet PO (16:40)
[2022-02-17 17:37] LABS: Mucous, Urine 0 SEEN /hpf (<or=2+)
[2022-02-17 17:49] LABS: Color, Urine Yellow (Yellow); Glucose, Dipstick Normal (Normal); Ketone-Dipstick 50 mg/dl (Negative); Leukocyte Esterase-Dipstick 500 /ul (Negative); Nitrite-Dipstick Positive (Negative); Occult Blood-Urine 25 /ul (Negative); Protein-Dipstick 30 mg/dl (Negative); Urine Clarity Cloudy (Clear); Urine Urobilinogen 8 mg/dl (Normal)
[2022-02-17 17:51] LABS: Urine Bilirubin Dipstick 3 mg/dL (Negative)
[2022-02-17 18:39] LABS: White Blood Cells 25-50 SEEN /hpf (0-5)
[2022-02-17 18:40] LABS: Amorphous Sediment 3+ URATE; Bacteria 2+ /hpf (None Seen); Red Blood Cells-Urine 0-5 SEEN /hpf (0-5); Squamous Epithelial Cells - UA 0-5 SEEN /hpf (5-10)
[2022-02-17] MEDS: Smz/Tmp Ds Tablet 1 TABLET PO (18:48)
[2022-02-17 18:51] VITALS: PULSE 98; RESP 18
== END 2022-02-17 18:51 | disposition home or self-care (01) ==
PROVIDERS: Emergency Provider Emergency Medicine; PCP Family Medicine; Visit Provider Emergency Medicine
DX: G40.909 Epilepsy, unspecified, not intractable, without status epilepticus (principal); N39.0 Urinary tract infection, site not specified; I10 Essential (primary) hypertension; R41.0 Disorientation, unspecified; R51.9 Headache, unspecified
CPT/HCPCS: 70450; 72125; 80048; 81001; 85025; 87086; 87088; 99284; A4216

== ENCOUNTER 2022-03-02 08:37 | Inpatient (IN) | payer MEDICAID, SELFPAY ==
[2022-03-02] VITALS (8 sets, daily range): BP systolic 128–142; BP diastolic 74–98; PULSE 70–97; RESP 14–18; TEMP 36.1–37.2; O2SAT 95–100; BMI 34.4; BMI 30.5
--- NOTE | 2022-03-02 09:22 | EDS_ITS ---
HPI History of Present Illness Chief Complaint: Nausea/Vomiting Informant: patient Onset/Context/Timing Onset: Today and Hours Context: Gradual Onset Timing: Continuous Current Severity: Mild Maximum Severity: Mild Narrative Narrative: 36-year-old female history of cognitive impairment and seizure disorder 1 to 2 weeks ago and discharged for urinary tract infection and recurrent seizure. States that she has had nausea and vomiting today. Denies any fever. Denies any hematemesis. Since she started not feeling well last night but did not have the nausea and vomiting till today. Denies any dysuria. Denies any abdominal pain. Prior similar symptoms: Yes Recent Illness/Hospitalization: No [facility] Medical History Cognitive dysfunction Debility HTN (hypertension) Morbid obesity Seizure disorder Home Medications ferrous sulfate 325 mg (65 mg iron) tablet 325 mg PO DAILY@0800 supplement 03/17/20 [History Last Taken 03/02/22] gabapentin 300 mg capsule 300 mg PO BID neuropathy #60 caps 04/06/20 [Rx Last Taken 03/02/22] levetiracetam 1,000 mg tablet 1,000 mg PO BID seizures #60 tabs 04/06/20 [Rx Last Taken 03/02/22] topiramate 100 mg tablet 100 mg PO BID #60 tabs 04/06/20 [Rx Last Taken 03/02/22] amlodipine 5 mg tablet 5 mg PO DAILY BP 09/16/21 [History Last Taken 03/02/22] phenobarbital 64.8 mg tablet 64.8 mg PO BID SEIZURES 03/02/22 [History Last Taken 03/02/22] Allergy/AdvReac Type Severity Reaction Status Date / Time fluconazole Allergy NEEDS Verified 03/02/22 08:52 FOLLOW-UP naproxen Allergy Hives Verified 03/02/22 08:52 Social History Smoking Status: Never smoker substance use type: does not use ROS ROS ED ROS Narrative Nausea and vomiting. Review of Systems ROS Unobtainable: Denies due to encephalopathy Constitutional Constitutional ED: Reports chills; Denies fever(s) Eyes Eyes: Denies blurry vision ENT ENT ED: Denies ear pain or rhinorrhea Cardiovascular Cardiovascular: Denies chest pain or palpitations Respiratory/Chest Respiratory/Chest: Denies cough or dyspnea Gastrointestinal Gastrointestinal: Reports nausea and vomiting; Denies abdominal pain, constipation, diarrhea or melena Genitourinary Genitourinary ED: Denies dysuria or hematuria Musculoskeletal Musculoskeletal: Denies arthralgias Integumentary Denies abscess Neurologic Neurologic: Denies headache(s) Psychiatric Psychiatric: Denies anxiety Endocrine Endocrinology: Denies cold intolerance Hematologic/Lymphatic Hematologic/Lymphatic: Reports none Allergic/Immunologic Allergic/Immunologic ED: Denies mouth swelling, tongue swelling or urticaria EXAM Physical Exam Narrative Exam Narrative: Ill-appearing 36-year-old female. Vital signs are stable afebrile. She does not look septic or toxic. Clinically does look dehydrated. Pulse ox 9 9% on room air no hypoxia. H EENT exam no trauma. Pupils round reactive light. Dry mucous membranes. Dry tongue. Neck nontender. No lymphadenopathy. No meningismus. Lungs clear to auscultation bilaterally. Heart regular rhythm rate about 95 no murmur. Abdomen is soft nontender. Normal bowel sounds no peritoneal signs. No distention. Moving all 4 extremities. Normal sonar technician strength bilaterally. Normal dorsi plantarflexion. Nontender. No edema. No deformities. Back nontender. Neurologically she is awake and alert. She is cognitively impaired but that is chronic. She is answering questions. Following commands. Moving all 4 extremities. No focal motor deficits. Const Vital Signs: 03/02/22 08:38 03/02/22 11:00 03/02/22 12:00 Temperature 99 F Temperature Source Temporal Pulse Rate 97 70 74 Respiratory Rate 18 18 Blood Pressure 136/98 H 128/74 H Blood Pressure Mean 110 92 Pulse Ox 99 Oxygen Delivery Method Room Air 03/02/22 13:52 03/02/22 15:00 Temperature Temperature Source Pulse Rate 80 71 Respiratory Rate 14 Blood Pressure 142/97 H 141/74 H Blood Pressure Mean 112 96 Pulse Ox Oxygen Delivery Method Positive well nourished, well developed and obese; Negative for cachectic, contractures or unkempt General Appearance ED: well developed and NAD; Negative for unkempt, cachectic, contractures, cyanotic, diaphoretic or pallor Nutritional Appearance: obese; Negative for cachectic HEENT Reports dry mucous membranes; Denies moist mucous membranes Negative for trauma or tenderness Mouth ED: Yes dry mucous membranes Mouth: dry mucous membranes Eyes PERRL and EOMs intact bilaterally General Eye ED: Negative for pale conjunctiva or scleral icterus Neck no lymphadenopathy, supple and no JVD General: Negative for tenderness Lymph Lymphatic: Negative for other Chest Wall inspection of chest normal and palpation of chest normal Chest: Negative for other Resp normal respiratory effort and clear to auscultation bilaterally Effort and Inspection: Negative for retractions Auscultation: Negative for rales, rhonchi or wheezes Cardio regular rate, regular rhythm, S1 normal heart sound, S2 normal heart sound and no murmurs Rate: Negative for bradycardia or tachycardic GI normal to inspection, nondistended, normoactive bowel sounds, non-tender, non- distended and no masses Inspection: Negative for abdominal distention Auscultation: normoactive bowel sounds Palpation: soft; Negative for tender or guarding Back/Spine no CVA tenderness General Back: Negative for CVA tenderness Cervical Spine: Negative for cervical spine tenderness Thoracic Spine / Upper Back: Negative for thoracic spinal tenderness Lumbar Spine / Lower Back: Negative for lumbar spinal tenderness Neuro No oriented x3 and CN's II-XII intact bilaterally Sensorium / Orientation: alert; Negative for lethargic or stuporous Motor Exam: strength 5/5 throughout Psych mental status grossly normal Appearance: Negative for unkempt Attitude: No agitated Mood & Affect: Negative for depressed, anxious or tearful Skin no rashes or lesions noted and no wounds General Skin Exam: Negative for jaundice or pallor Lesions: No lesion noted Rashes: No rashes noted Trauma: Negative for abrasion MDM MDM MDM Narrative Medical decision making narrative: 36-year-old female known history of seizures on phenobarbital. Recently had a UTI 2 weeks ago. Complaining of nausea and vomiting. Also stating that she has dark stools which she normally does not have but she is on iron. No abdominal pain. Clinically she looks dehydrated. She was treated with IV fluids x2 L. IV Zofran. Screening labs and urinalysis will be obtained. I will attempt to get a phenobarb level also. I do not think at this time she needs any imaging. Normal neurological exam for this patient with no motor deficits. She is chronically cognitively impaired. Repeat exam unchanged. Rectal exam done with a female nurse present in the room. Patient had dark stool consistent with suspected upper GI bleed. No gross blood. No clots. I will speak to the hospitalist about admission and further evaluation. Patient will be typed and screened. She will be given a dose of IV Protonix for the possibility of this being an upper GI bleed. She is stable. Lab Data Attestation: I reviewed the patient's lab results. Lab results narrative: CBC shows a white count of 2.6. H&H 9.2 and 28.7. Platelets of 120,000. Her hemoglobin has been dropping over the last several months. Electrolytes show potassium of 3.0. A gap of 9. BUN and creatinine of 18 and 0.5 and are unremarkable. Liver enzymes unremarkable except AST 310. ALT 40. Total bilirubin is normal. Glucose is 90. She is on phenobarbital levels 24. Labs: Laboratory Results - last 24 hr 03/02/22 03/02/22 03/02/22 13:30 13:30 13:30 WBC 2.6 L RBC 2.76 L Hgb 9.2 L Hct 28.7 L MCV 104.0 H MCH 33.3 H MCHC 32.1 RDW Std Deviation 50.9 H RDW Coeff of [place] 13.4 Plt Count 120 L MPV 11.8 Immature Gran % (Auto) 0.400 Neut % (Auto) 64.0 Lymph % (Auto) 29.0 [place] % (Auto) 5.4 Eos % (Auto) 1.2 Baso % (Auto) 0.0 Absolute Neuts (auto) 1.7 L Absolute Lymphs (auto) 0.75 L Nucleated RBC % 0 Sodium 143 Potassium 3.0 L Chloride 113 H Carbon Dioxide 21.0 Anion Gap 9 BUN 18 Creatinine 0.56 Estim Creat Clear Calc 133.76 Est GFR (MDRD) Af Amer 156 Est GFR (MDRD) Non-Af 129 BUN/Creatinine Ratio 32.1 H Glucose 90 Calcium 7.6 L Total Bilirubin 0.40 AST 310 H ALT 61 H Alkaline Phosphatase 40 L Total Protein 5.1 L Albumin 2.6 L Globulin 2.5 Albumin/Globulin Ratio 1.0 Phenobarbital 24.3 Discharge Plan Dx/Rx/DC Orders Clinical Impression: Anemia, Acute GI bleeding, Hx of seizure disorder, History of cognitive deficit Disposition Disposition: Acute Care [facility]
[2022-03-02] MEDS: 0.9% Normal Saline 1,000 ML 1000 ML IV ×2 (09:57→12:00)
[2022-03-02] MEDS: Ondansetron 4 MG/2 ML Vial IV (09:58)
--- NOTE | 2022-03-02 13:15 | ED.RN ---
Patient rang call light to use restroom, bedside commode brought to room (IV in foot) and patient instructed on clean catch specimen needed, cup placed inside hat. Patient had slip socks placed and stood at bedside without assistance. Patient then sat back down on bed to attempt to get pants down off hips. On standing back up, pants still in position, patient slid to the bed and I then assisted her to the floor. She did not injure herself on fall as observed and assisted to floor by myself, no injury to head. Patient was assisted back in to bed by myself and another RN. Patient complained of pain all over but was not specific and was unchanged from previously noted pain. Purwick placed as patient still needed to urinate.
[2022-03-02 13:46] LABS: Absolute Lymphocyte Count 0.75 X10^3/uL (0.83-4.51); Absolute Neutrophil Count 1.7 X10^3/uL (2.0-7.7); Eosinophil# 0.03 X10^3/uL; Eosinophils% 1.2 % (0-5); Hematocrit 28.7 % (37-47); Hemoglobin 9.2 g/dL (12.0-15.0); Lymphocyte # 0.75 X10^3/ul (0.83-4.51); Mean Corp Hgb Conc 32.1 g/dL (32-36); Mean Corpuscular Hgb 33.3 pg (27.0-32.0); Mean Platelet Vol. 11.8 fl (6.2-12.0); Monocyte# 0.14 X10^3/uL; Monocyte% 5.4 % (0-10); NRBC Flagged by Analyzer 0 % (0-5); Neutrophil # 1.66 X10^3/uL (2.7-7.7); Platelet Count 120 K/mm3 (150-450); RBC Distribution Width CV 13.4 % (11.6-14.6); RBC Distribution Width SD 50.9 fl (35.1-43.9); Red Blood Count 2.76 M/mm3 (4.2-5.4); White Blood Count 2.6 K/mm3 (4.4-11.0)
[2022-03-02 13:59] LABS: AST(SGOT) 310 U/L (15-37); Alanine Aminotransfer ALT/SGPT 61 U/L (13-56); Albumin, Serum 2.6 g/dL (3.2-5.0); Alkaline Phosphatase 40 U/L (45-117); Anion Gap 9 (5-15); BUN 18 mg/dL (7-18); BUN/Creat Ratio 32.1 RATIO (10-20); Calcium,Total 7.6 mg/dL (8.5-10.1); Chloride 113 mmol/L (98-107); Creatinine, Serum 0.56 mg/dL (0.55-1.02); EST Glomerular Filtration Rate 129 mL/min (>60); Est Glom Filt Rate - Afr Amer 156 mL/min (>60); Estimated Creatinine Clearance 133.76 ml/min; Globulin 2.5 g/dL (2.2-4.2); Glucose 90 mg/dL (74-106); Protein, Total 5.1 g/dL (6.4-8.2); Sodium Level 143 mmol/L (136-145)
--- NOTE | 2022-03-02 17:40 | CON.PCM.GI_ITS ---
HPI Consult Data Date of Consult: 03/02/22 HPI Narrative Reason for Consultation: GI bleed HPI Narrative: MARY CLAUDIO, is a 36-year-old female history of significant cognitive impairment and seizure disorder 1 to 2 weeks ago and discharged for urinary tract infection and recurrent seizure.? States that she has had nausea and vomiting today.? Denies any fever.? Denies any hematemesis.? Since she started not feeling well last night but did not have the nausea and vomiting till today.? Denies any dysuria.? Denies any abdominal pain. She did admit to some melanotic stools a start about a week and a half ago. She has a history of c annabis abuse but denies any history of medication induced gastroparesis. Patient has a history of seizure disorder.? No recent changes to her medications.? She is sure that she did take her seizure medication this morning.? She believes her last seizure was a month ago, however on review of records the patient was here in late August with breakthrough seizures.? At this time she feels back to her baseline. I was asked to see her due to a possible GI bleed. In the ED she was discovered to have a hemoglobin at 9.2 which is down from 11.6. She was also discovered to have a white count of 2.6 and a platelet count of 120. She has no previous history of cirrhosis. She has no family history of liver disease. She has no history of pancreatitis that she knows of. She has not received any blood transfusions in the past. [facility] Medical History Cognitive dysfunction Debility HTN (hypertension) Morbid obesity Seizure disorder Home Medications ferrous sulfate 325 mg (65 mg iron) tablet 325 mg PO DAILY@0800 supplement 03/17/20 [History Last Taken 03/02/22] gabapentin 300 mg capsule 300 mg PO BID neuropathy #60 caps 04/06/20 [Rx Last Taken 03/02/22] levetiracetam 1,000 mg tablet 1,000 mg PO BID seizures #60 tabs 04/06/20 [Rx Last Taken 03/02/22] topiramate 100 mg tablet 100 mg PO BID #60 tabs 04/06/20 [Rx Last Taken 03/02/22] amlodipine 5 mg tablet 5 mg PO DAILY BP 09/16/21 [History Last Taken 03/02/22] phenobarbital 64.8 mg tablet 64.8 mg PO BID SEIZURES 03/02/22 [History Last Taken 03/02/22] Allergy/AdvReac Type Severity Reaction Status Date / Time fluconazole Allergy NEEDS Verified 03/02/22 08:52 FOLLOW-UP naproxen Allergy Hives Verified 03/02/22 08:52 Social History Smoking Status: Never smoker substance use type: does not use ROS Review of Systems ROS Unobtainable: other Constitutional Constitutional: Denies fatigue, fever(s), poor appetite, weight gain or weight loss ENT HEENT: Denies mouth lesions Cardiovascular Cardiovascular: Denies abdominal bloating, abdominal edema or abdominal pain Respiratory/Chest Respiratory/Chest: Denies change in mental status, change in phlegm color, chest congestion or chest tightness Gastrointestinal Gastrointestinal: Denies belching, bloating, change in bowel habits, change in stool character, chewing difficulty, coffee ground emesis, constipation, cramping, diarrhea, dyspepsia, dysphagia, early satiety, excessive flatus, fecal incontinence, heartburn, hematemesis, hematochezia, hemorrhoids, loose stools, melena, nausea, odynophagia, rectal bleeding, tenesmus, vomiting or weight changes Genitourinary Genitourinary: Denies abdominal discomfort, burning urination or itching Musculoskeletal Musculoskeletal: Reports as per HPI; Denies muscle weakness or myalgias Integumentary Integumentary: Denies jaundice Neurologic Neurologic: Denies lack of coordination or weakness Psychiatric Psychiatric: Denies confusion, depression, memory loss, mood swings, paranoia or suicidal ideation Endocrine Endocrinology: Denies systems reviewed and no addt'l complaints, except as documented Hematologic/Lymphatic Hematologic/Lymphatic: Denies anemia, easy bleeding, easy bruising or lymphadenopathy Allergic/Immunologic Allergic/Immunologic: Denies systems reviewed and no addt'l complaints, except as documented Physical Exam Const alert General Appearance: cooperative Orientation / Consciousness: oriented to person HEENT hearing grossly normal bilaterally Head and Scalp: normal to inspection Face and Sinus: face symmetric Nose: external nose normal Mouth: oral and palatal mucosa normal Eyes conjunctivae normal General Eye: normal appearance of both eyes Neck full ROM General: normal visual inspection Lymph Lymphatic: no lymphadenopathy noted Chest inspection of chest normal and palpation of chest normal Chest: symmetrical chest wall rise Resp normal respiratory effort Effort and Inspection: able to speak in complete sentences Cardio regular rate GI non-distended Percussion: normal to percussion Rectal Exam: deferred Neuro Speech: speech normal Gait (Neuro): normal gait Lab / Micro Data Result Diagrams: 03/02/22 13:30 03/02/22 13:30 Labs: Laboratory Results - last 24 hr 03/02/22 13:30: Phenobarbital 24.3 03/02/22 13:30: Sodium 143, Potassium 3.0 L, Chloride 113 H, Carbon Dioxide 21.0, Anion Gap 9, BUN 18, Creatinine 0.56, Estim Creat Clear Calc 133.76, Est GFR (MDRD) Af Amer 156, Est GFR (MDRD) Non-Af 129, BUN/Creatinine Ratio 32.1 H, Glucose 90, Calcium 7.6 L, Total Bilirubin 0.40, AST 310 H, ALT 61 H, Alkaline Phosphatase 40 L, Total Protein 5.1 L, Albumin 2.6 L, Globulin 2.5, Albumin/Globulin Ratio 1.0 03/02/22 13:30: WBC 2.6 L, RBC 2.76 L, Hgb 9.2 L, Hct 28.7 L, MCV 104.0 H, MCH 33.3 H, MCHC 32.1, RDW Std Deviation 50.9 H, RDW Coeff of [place] 13.4, Plt Count 120 L, MPV 11.8, Immature Gran % (Auto) 0.400, Neut % (Auto) 64.0, Lymph % (Auto) 29.0, [place] % (Auto) 5.4, Eos % (Auto) 1.2, Baso % (Auto) 0.0, Absolute Neuts (auto) 1.7 L, Absolute Lymphs (auto) 0.75 L, Nucleated RBC % 0 Assessment & Plan Assessment/Plan (1) Acute GI bleeding: PLAN: Differential diagnosis for bleeding would be peptic ulcer disease, angiodysplasias of the other GI tract, telangiectasias, Khai's erosions, medication induced gastritis. She should undergo an upper endoscopy to evaluate upper GI tract. Recommend PPI therapy with a PPI drip. Follow platelet count. Check INR. Charges/Coding Visit Charges Inpatient E&M: 02214 Init Hosp L2
--- NOTE | 2022-03-02 18:05 | PCM.HP.STD ---
HPI - General General Date of Admission: 03/02/22 Date of Service: 03/02/22 Chief Complaint: Nausea and vomiting HPI Narrative MARY CLAUDIO, is a 36 F who presented to the emergency department [facility] with nausea and vomiting. Patient has some cognitive dysfunction at baseline and is extremely poor historian. She was seen here last on 02/17/2022 at which time she was seen for seizure disorder and a urinary tract infection. She is unable to tell me whether or not she completed the antibiotics for that at that time. She reported that she had nausea and vomiting that started today. She does indicate that one of her twins had similar symptoms several days ago. She indicated she started feeling poorly last night but did have nausea and so she woke up this morning. She not been able to eat or drink anything other than her pills but states she feels that these have been kept down. She denies any hematemesis, she states her bowels have been normal without any change in color, she denied fever or chills and has had no upper respiratory or respiratory complaints. She had no recent seizures and as indicated she feels that she has been able to keep her pills in. She had no further dysuria or urinary frequency and denies any abdominal pain. Vital signs on presentation showed a temperature of 99, pulse of 97, blood pressure 136/98, respiratory rate was 18 and sats were 99% on room air. Her CBC demonstrated leukopenia with a white count of 2.6 anemic with a hemoglobin of 9.2 down from 11.2 on 02/17/2022 (this is macrocytic), thrombocytopenic with a platelet count of 120 which is not her baseline but her differential was unremarkable. Her chemistry panel showed hypokalemia with potassium of 3.0 as well as hyperchloremia with a chloride of 113 she clinically appears dry however serum creatinine was at baseline she does have an elevated AST and ALT at 310 and 61 respectively. Her alk phos is normal. A urine has been ordered but not yet obtained. A phenobarbital level was obtained and noted to be in therapeutic range. In the emergency department with her anemia rectal exam was performed and per discussion with Dr. Huerta the stool was very dark in color. The patient indicates that her stool is typically brown despite the fact that she is on supplemental iron [facility] Medical History Cognitive dysfunction Debility HTN (hypertension) Morbid obesity Seizure disorder Home Medications ferrous sulfate 325 mg (65 mg iron) tablet 325 mg PO DAILY@0800 supplement 03/17/20 [History Last Taken 03/02/22] gabapentin 300 mg capsule 300 mg PO BID neuropathy #60 caps 04/06/20 [Rx Last Taken 03/02/22] levetiracetam 1,000 mg tablet 1,000 mg PO BID seizures #60 tabs 04/06/20 [Rx Last Taken 03/02/22] topiramate 100 mg tablet 100 mg PO BID #60 tabs 04/06/20 [Rx Last Taken 03/02/22] amlodipine 5 mg tablet 5 mg PO DAILY BP 09/16/21 [History Last Taken 03/02/22] phenobarbital 64.8 mg tablet 64.8 mg PO BID SEIZURES 03/02/22 [History Last Taken 03/02/22] Allergy/AdvReac Type Severity Reaction Status Date / Time fluconazole Allergy NEEDS Verified 03/02/22 08:52 FOLLOW-UP naproxen Allergy Hives Verified 03/02/22 08:52 Family History unable to obtain unable to obtain Surgical History unable to obtain unable to obtain Social History (Updated 03/02/22 @ 18:[address] Awa Massey DO) household members: significant other, family and children housing: house Smoking Status: Never smoker alcohol intake: never substance use type: does not use ROS Constitutional Constitutional: Denies anorexia, change in weight, chills, fatigue, fever(s), malaise, night sweats, weakness or other Eyes Eyes: Denies blurry vision, change in eye color, change in vision, discharge from eye(s), double vision, erythema, eye pain, loss of vision or other ENT HEENT: Denies abnormal hearing, dysphagia, ear pain, epistaxis, headache(s), hearing loss, nasal congestion, nasal discharge, post nasal drip, sinus pressure, sore throat or other Cardiovascular Cardiovascular: Denies chest pain, claudication, dyspnea on exertion, edema, lightheadedness, orthopnea, palpitations, paroxysmal nocturnal dyspnea, rapid heart rate, syncope or other Respiratory/Chest Respiratory/Chest: Denies cough, dyspnea, excessive phlegm production, hemoptysis, productive cough, shortness of breath at rest, shortness of breath with exertion, wheezing or other Gastrointestinal Gastrointestinal: Reports nausea and vomiting; Denies abdominal pain, coffee ground emesis, constipation, diarrhea, dyspepsia, hematemesis, hematochezia, loose stools, melena or other Genitourinary Genitourinary: Denies burning urination, difficulty urinating, dysuria, hematuria, nocturia, urinary frequency, urinary hesitancy, urinary incontinence, urinary urgency or other Musculoskeletal Musculoskeletal: Denies arthralgias, back pain, joint pain, joint stiffness, joint swelling, myalgias, neck pain or other Neurologic Neurologic: Reports seizures; Denies abnormal gait, abnormal speech, confusion, disequilibrium, dizziness, focal weakness, headache(s), numbness, paresthesias, seizure-like activity, syncope, tingling, tremor(s) or other Psychiatric Psychiatric: Denies anxiety, depression, homicidal ideation, suicidal ideation or other Endocrine Endocrinology: Denies change in body appearance, cold intolerance, excessive sweating, heat intolerance, polydipsia, polyuria or other Hematologic/Lymphatic Hematologic/Lymphatic: Denies anemia, easy bleeding, easy bruising, lymphadenopathy or other Allergic/Immunologic Allergic/Immunologic: Denies rhinitis, hives, eczemia, asthma or other Vital Signs Vital Signs Vital Signs: 03/02/22 08:38 03/02/22 11:00 03/02/22 12:00 Temperature 99 F Temperature Source Temporal Pulse Rate 97 70 74 Respiratory Rate 18 18 Blood Pressure 136/98 H 128/74 H Blood Pressure Mean 110 92 Pulse Ox 99 Oxygen Delivery Method Room Air 03/02/22 13:52 03/02/22 15:00 Temperature Temperature Source Pulse Rate 80 71 Respiratory Rate 14 Blood Pressure 142/97 H 141/74 H Blood Pressure Mean 112 96 Pulse Ox Oxygen Delivery Method Weight Weight: 99.79 kg Body Mass Index (BMI) 34.4 Physical Exam Const alert, oriented x3 and no apparent distress Constitutional Narrative: Obese, middle-aged, white female lying in bed, extremely poor historian and responses are slow, clinically appears fairly dehydrated at this point General Appearance: cooperative HEENT normocephalic, head/scalp atraumatic and hearing grossly normal bilaterally HEENT Narrative: Mucous membranes are extremely dry Eyes PERRL and EOMs intact bilaterally Eyes Narrative: Conjunctiva are very mildly pale, no scleral icterus Neck no lymphadenopathy and supple Neck Narrative: Trachea midline Resp normal respiratory effort, no retractions, no use of accessory muscles and clear to auscultation bilaterally Auscultation: Negative for crackles, rhonchi or wheezes Cardio regular rate, regular rhythm, S1 normal heart sound, S2 normal heart sound, no murmurs, no rub, no gallops, no clicks and no JVD GI normal to inspection, nondistended, normoactive bowel sounds, soft to palpation and non-tender Extremity no clubbing, cyanosis or edema Extremity Narrative: 2+ pedal pulses, IV and dorsum of right foot Skin no rashes or lesions noted, no wounds, No skin turgor normal, no jaundice, no petechiae and no mottling Skin Narrative: Pale, skin tenting abnormal skin turgor Neuro oriented x3, CN's II-XII intact bilaterally, moves all extremities and no focal motor deficits Speech: speech normal Psych Psych Narrative: Affect is flat, eye contact is good, response time is slow Results Lab / Micro Data Attestation: I reviewed the patient's lab results. Result Diagrams: 03/02/22 13:30 03/02/22 13:30 Labs: Laboratory Results - last 24 hr 03/02/22 13:30: Phenobarbital 24.3 03/02/22 13:30: Sodium 143, Potassium 3.0 L, Chloride 113 H, Carbon Dioxide 21.0, Anion Gap 9, BUN 18, Creatinine 0.56, Estim Creat Clear Calc 133.76, Est GFR (MDRD) Af Amer 156, Est GFR (MDRD) Non-Af 129, BUN/Creatinine Ratio 32.1 H, Glucose 90, Calcium 7.6 L, Total Bilirubin 0.40, AST 310 H, ALT 61 H, Alkaline Phosphatase 40 L, Total Protein 5.1 L, Albumin 2.6 L, Globulin 2.5, Albumin/Globulin Ratio 1.0 03/02/22 13:30: WBC 2.6 L, RBC 2.76 L, Hgb 9.2 L, Hct 28.7 L, MCV 104.0 H, MCH 33.3 H, MCHC 32.1, RDW Std Deviation 50.9 H, RDW Coeff of Enedina 13.4, Plt Count 120 L, MPV 11.8, Immature Gran % (Auto) 0.400, Neut % (Auto) 64.0, Lymph % (Auto) 29.0, [place] % (Auto) 5.4, Eos % (Auto) 1.2, Baso % (Auto) 0.0, Absolute Neuts (auto) 1.7 L, Absolute Lymphs (auto) 0.75 L, Nucleated RBC % 0 Assessment & Plan Assessment/Plan (1) Acute GI bleeding: (2) Anemia: (3) Nausea and vomiting: (4) Dehydration: (5) Pancytopenia: PLAN: Plan Acute anemia -Suspect related to GI bleed -Per ER physician stool was dark on rectal exam however guaiac was not obtained -Guaiac ordered -Every 6 H&H -Transfuse for less than 7 hemoglobin -Patient has dropped 2 g since 02/17/2022 from 11.2-9.2 at this time GI bleed -Could be related to Felecia-Fabian tear with nausea and vomiting the patient has been experiencing today -Antiemetics -Cycle hemoglobin as noted above -Protonix 40 mg IV push twice daily -Continue home iron -N.p.o. after midnight--> okay for p.o. meds -GI consultation Nausea and vomiting -Etiology unclear -Patient has had sick contact with a child at home -also was on Bactrim -IV fluids -Clear liquid diet as tolerated -Antiemetics -GI consultation for probable EGD with acute anemia and suspected bleeding -PPI IV twice daily -Check UA Dehydration -IV fluids -Renal function is stable at this time however patient appears clinically very dry Hypertension -Continue home amlodipine -Monitor Pancytopenia -This is new when compared to previous lab -I am wondering if this is related to Bactrim -Repeat CBC in a.m. -Differential is unremarkable -If persistent may need further work-up History of seizure disorder -Continue home Keppra -Continue home phenobarbital -Continue home Topamax Bilateral lower extremity neuropathy -Continue home gabapentin DVT -Hold chemoprophylaxis as there is concern for bleeding -SCDs CODE STATUS -full code Charges/Coding Visit Charges Inpatient E&M: 58755 Init Hosp L2
--- NOTE | 2022-03-02 18:43 | US_ITS ---
STUDY: ABDOMINAL ULTRASOUND - RIGHT UPPER QUADRANT REASON FOR VISIT: Female, 36 years old N AND V TECHNIQUE: Ultrasound evaluation of the right upper quadrant was performed with real-time and static rivera-scale imaging. TECHNICAL QUALITY: Adequate. COMPARISON: None. FINDINGS: Liver: The liver measures 15.6 cm. There is normal echogenicity of the liver. The bile ducts are within normal limits. There is hepatic color flow. The direction of portal flow is hepatopetal. There is no demonstrated mass lesion. Gallbladder: Gallbladder is poorly visualized, there however is a structure of the dexter of the liver which contains diffuse internal debris. This likely represents the gallbladder versus a bowel segment. No shadowing stones noted. Gallbladder wall estimated approximately 2 mm. No sonographic Luis''s sign. Common Bile Duct (C.B.D.): The common bile duct measures 4 mm. Pancreas: Not well visualized. No focal abnormality noted. Right Kidney: Normal size of the right kidney. The right kidney measures 10.8 x 5.1 x 4.4 cm. Normal renal cortex. The right cortex measures 1.9 cm. There is no demonstrated renal mass or cyst. There is no right hydronephrosis. US/Abdomen Limited IMPRESSION: 1. Gallbladder is poorly visualized, however there is a structure in the dexter of the liver with diffuse hypoechoic material present which may represent a gallbladder filled with sludge, alternatively a bowel segment. 2. No evidence however of shadowing calcifications pericholecystic fluid, or duct dilatation. No ductal dilatation. 3. Normal appearance the RIGHT kidney. Electronically Signed: Deepak Ontiveros MD at 2:25 EST ,
[2022-03-02] MEDS: 0.9% Saline Lock 10 ML Syringe IV ×2 (19:22→21:04)
[2022-03-02 19:29] LABS: Hematocrit 30.2 % (37-47); Hemoglobin 9.8 g/dL (12.0-15.0); POSITIVE COUNT YES
[2022-03-02 20:44] LABS: Vitamin B12 261 pg/mL (211-911)
[2022-03-02] MEDS: Lactated Ringers 1,000 ML 70 ML IV (21:04)
[2022-03-02] MEDS: Phenobarbital 32.4 MG Tablet 64.8 MG PO (22:50)
[2022-03-02] MEDS: levETIRAcetam 1,000 MG Tablet 1000 MG PO (22:50)
[2022-03-02] MEDS: Gabapentin 300 MG Capsule PO (22:50)
[2022-03-02] MEDS: Topiramate 100 MG Tablet PO (22:51)
[2022-03-02 23:41] LABS: Mucous, Urine 0 SEEN /hpf (<or=2+)
[2022-03-03] VITALS (9 sets, daily range): BP systolic 114–142; BP diastolic 57–93; PULSE 80–90; RESP 14–18; TEMP 36.3–37.5; O2SAT 97–100
--- NOTE | 2022-03-03 | EGD_PTH ---
PATIENT: MARY CLAUDIO LOC: MS3 U#:[id number] AGE/SX: 36/F ROOM: [facility] RE03/02/[address]: Dr. Yonas Benson MD : 1985 BED: 1 DIS: 03/10/2022 SPEC #: [id number] RECD: 03/03/22 12:37 STATUS: LUPE REQ #: [id number] DONOVAN: 03/03/22 00:[address]: Kaushal Carter DEPT: SURGICAL PATHOLOGY RECD BY: Marley Nunez ENTERED: 03/03/22 13:35 SP TYPE: EGD BIOPSY OT DR: DO Dr. Franky Payan MD Dr. Christophe Bursley, MD Tissues: A - Duodenum, NOS B - Gastric mucous membrane Procedures: Surgery Specimen Level IV Comments: @ Ordering doctor for SUIV edited from to @ by YUMIKO at 03/03/22 1453 @ Submitting doctor edited from to @ by DIONTEOD at 03/03/22 1453 HEADER OPERATION: [place] PRE-OP DIAGNOSIS: Acute GI bleeding TISSUE SUBMITTED: A ? Duodenum ulcer biopsy, B ? Antrum biopsy MICROSCOPIC DIAGNOSIS A. Duodenal ulcer, biopsy: Recent hemorrhage and minimal chronic inflammation. B. Gastric antrum, biopsy: Chronic gastritis. See comment. AM:judith 03/04/2022 COMMENT B. The results of immunohistochemistry for Helicobacter pylori will be reported separately ([id number]). MICROSCOPIC DESCRIPTION Slides are reviewed. GROSS DESCRIPTION A - Received in fixative is one container labeled with the patient's name and designated duodenal ulcer biopsy. The specimen consists of two irregular fragments of light mendez soft tissue that in aggregate measure 0.7 x 0.5 x 0.1 cm. The specimen is totally submitted in one cassette. B - Received in fixative is one container labeled with the patient's name and designated antrum biopsy. The specimen consists of two irregular fragments of light mendez soft tissue that in aggregate measure 0.8 x 0.6 x 0.1 cm. The specimen is totally submitted in one cassette. / AM:judith 03/03/2022 TC:3 CPT: 62067 x2
[2022-03-03 04:22] LABS: Absolute Lymphocyte Count 0.53 X10^3/uL (0.83-4.51); Absolute Neutrophil Count 1.2 X10^3/uL (2.0-7.7); Basophil# 0.01 X10^3/uL; Basophil% 0.5 % (0-1); Eosinophil# 0.07 X10^3/uL; Eosinophils% 3.7 % (0-5); Hematocrit 29.7 % (37-47); Hemoglobin 9.4 g/dL (12.0-15.0); Lymphocyte # 0.53 X10^3/ul (0.83-4.51); Mean Corp Hgb Conc 31.6 g/dL (32-36); Mean Corpuscular Hgb 32.6 pg (27.0-32.0); Mean Corpuscular Volume 103.1 fL (81-99); Mean Platelet Vol. 11.5 fl (6.2-12.0); Monocyte% 5.3 % (0-10); NRBC Flagged by Analyzer 0 % (0-5); Neutrophil # 1.17 X10^3/uL (2.7-7.7); POSITIVE DIFFERENTIAL YES; Platelet Count 113 K/mm3 (150-450); RBC Distribution Width CV 13.2 % (11.6-14.6); Red Blood Count 2.88 M/mm3 (4.2-5.4); White Blood Count 1.9 K/mm3 (4.4-11.0)
[2022-03-03 04:26] LABS: Differential Indicated SCAN CRITERIA MET
[2022-03-03 04:38] LABS: International Normalized Ratio 1.3; Prothrombin Time (Protime)PT. 16.3 SECONDS (11.7-14.9)
[2022-03-03 04:39] LABS: Partial Thromboplast Time 29.1 Seconds (24.1-36.2)
[2022-03-03 04:54] LABS: AST(SGOT) 335 U/L (15-37); Alanine Aminotransfer ALT/SGPT 68 U/L (13-56); Albumin, Serum 2.6 g/dL (3.2-5.0); Alkaline Phosphatase 44 U/L (45-117); Anion Gap 6 (5-15); BUN 14 mg/dL (7-18); BUN/Creat Ratio 26.8 RATIO (10-20); Calcium,Total 7.9 mg/dL (8.5-10.1); Chloride 110 mmol/L (98-107); Creatinine, Serum 0.52 mg/dL (0.55-1.02); EST Glomerular Filtration Rate 140 mL/min (>60); Est Glom Filt Rate - Afr Amer 169 mL/min (>60); Estimated Creatinine Clearance 144.05 ml/min; Globulin 2.7 g/dL (2.2-4.2); Glucose 86 mg/dL (74-106); Magnesium 1.6 mg/dL (1.6-2.6); Phosphorus 3.1 mg/dL (2.5-4.9); Protein, Total 5.3 g/dL (6.4-8.2); Sodium Level 141 mmol/L (136-145)
[2022-03-03 05:13] LABS: Anisocytosis 1+; Differential Comment SCANNED; Macrocytosis 1+
[2022-03-03 07:18] LABS: Color, Urine Amber (Yellow); Glucose, Dipstick Normal (Normal); Ketone-Dipstick 15 mg/dl (Negative); Leukocyte Esterase-Dipstick 500 /ul (Negative); Nitrite-Dipstick Positive (Negative); Occult Blood-Urine 250 /ul (Negative); Protein-Dipstick 30 mg/dl (Negative); Specific Gravity, Urine 1.025 (1.002-1.030); Urine Clarity Cloudy (Clear); Urine Urobilinogen 4 mg/dl (Normal)
[2022-03-03 07:20] LABS: Internal QC Validated? YES +Cl - CLEAR BKGD; Pregnancy, Urine Negative Negative
[2022-03-03 07:24] LABS: Red Blood Cells-Urine 25-50 SEEN /hpf (0-5); Urine Bilirubin Dipstick 1 mg/dL (Negative); White Blood Cells 50-100 SEEN /hpf (0-5)
[2022-03-03 07:25] LABS: Bacteria 3+ /hpf (None Seen); Squamous Epithelial Cells - UA 5-10 SEEN /hpf (5-10)
--- NOTE | 2022-03-03 10:07 | NURSING ---
This nurse called [facility] to try and get a phone number for patient's Jose, staff member at [facility] gave a phone number of [phone]. This nurse attempted to call this number with no answer and no ability to leave a voicemail.
--- NOTE | 2022-03-03 10:12 | PN.HOSP_ITS ---
Subjective Subjective No issues overnight, no more episodes of emesis, she denies any blood in her stools or any hematemesis Objective Data Objective Data Vital Signs: Vital Signs Temp Pulse Resp BP Pulse Ox O2 Del Method 98.1 F 84 18 138/86 H 100 Room Air 03/03/22 09:56 03/03/22 09:56 03/03/22 09:56 03/03/22 09:56 03/03/22 09:56 03/03/22 09:57 Oxygen Delivery Method Room Air Weight: 195 lb Body Mass Index (BMI) 30.5 Intake & Output: Intake and Output for Last 24 Hours 03/02/22 03/03/22 03/04/22 03:59 03:59 03:59 Intake Total 2410 / 2410 Output Total 500 / 500 300 / 300 Balance 191 / 1909 -300 / -300 Lab / Micro Data Result Diagrams: 03/03/22 04:05 03/03/22 04:05 Labs: Laboratory Results - last 24 hr 03/02/22 13:30: Phenobarbital 24.3 03/02/22 13:30: Sodium 143, Potassium 3.0 L, Chloride 113 H, Carbon Dioxide 21.0, Anion Gap 9, BUN 18, Creatinine 0.56, Estim Creat Clear Calc 133.76, Est GFR (MDRD) Af Amer 156, Est GFR (MDRD) Non-Af 129, BUN/Creatinine Ratio 32.1 H, Glucose 90, Calcium 7.6 L, Total Bilirubin 0.40, AST 310 H, ALT 61 H, Alkaline Phosphatase 40 L, Total Protein 5.1 L, Albumin 2.6 L, Globulin 2.5, Albumin/Globulin Ratio 1.0 03/02/22 13:30: WBC 2.6 L, RBC 2.76 L, Hgb 9.2 L, Hct 28.7 L, MCV 104.0 H, MCH 33.3 H, MCHC 32.1, RDW Std Deviation 50.9 H, RDW Coeff of Enedina 13.4, Plt Count 120 L, MPV 11.8, Immature Gran % (Auto) 0.400, Neut % (Auto) 64.0, Lymph % (Aut o) 29.0, [place] % (Auto) 5.4, Eos % (Auto) 1.2, Baso % (Auto) 0.0, Absolute Neuts (auto) 1.7 L, Absolute Lymphs (auto) 0.75 L, Nucleated RBC % 0 03/02/22 13:30: Vitamin B12 261 03/02/22 13:30: Folate 1.20 L 03/02/22 19:00: Hgb 9.8 L, Hct 30.2 L 03/02/22 23:25: Urine Color Sheba, Urine Clarity Cloudy, Urine pH 5.0, Ur Specific Coleman 1.025, Urine Protein 30 H, Urine Glucose (UA) Normal, Urine Ketones 15 H, Urine Occult Blood 250 H, Urine Nitrite Positive H, Urine Bilirubin 1 H, Urine Urobilinogen 4 H, Ur Leukocyte Esterase 500 H, Urine RBC 25-50 SEEN, Urine WBC 50-100 SEEN, Ur Squamous Epith Cells 5-10 SEEN, Urine Bacteria 3+, Urine Mucus 0 SEEN 03/02/22 23:25: Urine Test Negative 03/03/22 04:05: Blood Type A POSITIVE, Antibody Screen NEGATIVE 03/03/22 04:05: WBC 1.9 L, RBC 2.88 L, Hgb 9.4 L, Hct 29.7 L, MCV 103.1 H, MCH 32.6 H, MCHC 31.6 L, RDW Std Deviation 50.0 H, RDW Coeff of Enedina 13.2, Plt Count 113 L, MPV 11.5, Immature Gran % (Auto) 0.500, Neut % (Auto) 62.0, Lymph % (Auto) 28.0, [place] % (Auto) 5.3, Eos % (Auto) 3.7, Baso % (Auto) 0.5, Absolute Neuts (auto) 1.2 L, Absolute Lymphs (auto) 0.53 L, Nucleated RBC % 0, Differential Comment SCANNED, Diff Path Review June foll, Anisocytosis 1+, Macrocytosis 1+ 03/03/22 04:05: Sodium 141, Potassium 3.0 L, Chloride 110 H, Carbon Dioxide 25.0, Anion Gap 6, BUN 14, Creatinine 0.52 L, Estim Creat Clear Calc 144.05, Est GFR (MDRD) Af Amer 169, Est GFR (MDRD) Non-Af 140, BUN/Creatinine Ratio 26.8 H, Glucose 86, Calcium 7.9 L, Phosphorus 3.1, Magnesium 1.6, Total Bilirubin 0.50, AST 335 H, ALT 68 H, Alkaline Phosphatase 44 L, Total Protein 5.3 L, Albumin 2.6 L, Globulin 2.7, Albumin/Globulin Ratio 1.0 03/03/22 04:05: PT 16.3 H, INR 1.3, APTT 29.1 Micro: Microbiology 03/02/22 21:00 Nasal Secretion SARS-CoV-2 Antigen (Rapid) - Final Radiography Diagnostic Testing: Radiology Impression Abdomen Ultrasound 03/02/22 18:43 IMPRESSION: 1. Gallbladder is poorly visualized, however there is a structure in the dexter of the liver with diffuse hypoechoic material present which may represent a gallbladder filled with sludge, alternatively a bowel segment. 2. No evidence however of shadowing calcifications pericholecystic fluid, or duct dilatation. No ductal dilatation. 3. Normal appearance the RIGHT kidney. Electronically Signed: Deepak Ontiveros MD at 2:25 EST , Physical Exam Narrative General: Alert, Oriented x3, Cooperative, No apparent distress HEENT: Atraumatic, PERRLA, EOMI, Normocephalic Oral: Dry mucosa Neck: Supple, No JVD Lungs: Clear to auscultation, Normal air movement, No rhonchi, No wheeze, No rales Cardiovascular: Regular rate, Regular Rhythm, Normal S1, Normal S2, No murmurs Abdomen: Soft, Non Tender, Non-Distended, No Hepato-splenomegaly Extremities: No edema, Capillary Refill Less than 3 Seconds Skin: No rashes, No breakdown Musculoskeletal: No Tenderness to Palpation of Joints or Extremities Neurological: Cranial nerves II-XII grossly intact, Motor Exam 5/5 strength throughout, Sensory exam intact to light touch and pain Psych/Mental Status: Flat affect, Appropriate Assessment & Plan Assessment/Plan (1) Acute GI bleeding: (2) Anemia: (3) Nausea and vomiting: (4) Dehydration: (5) Pancytopenia: PLAN: Plan 1. Acute anemia from possible GI bleed ? Has been having episodes of emesis, the ED physician did a rectal exam and n oted dark stools but did not do a guaiac ? Guaiac is pending ? H&H's are stable ? Appreciate gastroenterology's assistance ? Continue with antiemetics as well as Protonix ? Continue with her home iron ? She is currently n.p.o. pending EGD ? Continue with IV fluids, she is been having nausea and vomiting at home this could all be due to a Felecia-Fabian tear 2. HTN ? Continue with her home Norvasc ? Blood pressures are currently stable 3. Pancytopenia ? This is new could be related to Bactrim ? We will continue to monitor if there is no improvement will discuss the case with hematology 4. Seizure disorder/bilateral lower extremity neuropathy ? Stable ? Continue with her home medications DVT: SCDs Charges/Coding Visit Charges Inpatient E&M: 49946 Subs Hosp L2
--- NOTE | 2022-03-03 10:20 | NURSING ---
Attempted to call patients friend, Linnea that is listed on pts demographic information. No answer, voicemail left for her to return call.
--- NOTE | 2022-03-03 10:28 | NURSING ---
Friend, Linnea returned call and gave a number for Jose of [phone]. She states that is the most recent number that she is aware of.
--- NOTE | 2022-03-03 10:35 | CASEMGMT ---
CHRISS PALMER Assessment:Pt nurse made CHRISS PALMER aware that pt is unable to complete assessment. She is on phone to obtain consent from pt . RN ESTELA spoke to for assessment. RN ESTELA introduced self and role at [facility], pt voices understanding and consents to assessment. Care providers, pharmacy, and demographics verified/updated. Admitting Dx: anemia, GIB PCP:Laura Specialists:[facility] in [place], cannot remember the name. Preferred Pharmacy: [facility] Insurance: [employer] Prescription Benefit: yes LNOK: Linnea Hancock, friend Living Arrangements: Pt lives with and 4 children who are under 18 in a two story home with 1 step to enter. Pt states that she is I in ADL's most of the time. Transportation: Pt does not drive. states pt friend transports her to medical appts or she uses [employer] transportation. DME/HHC/SNF: Pt has a FWW and a shower chair. states pt has had HHC in the past but he is unsure of the name of it. He states she has not been in a SNF. Pt states no concerns with going home at time of dc. He is able to assist her at home. Pt states no further concerns/needs. CM to follow. Advised pt to ask CM if any further question/concerns/needs arise, voices understanding. Pt Goal: Pt to return home Plan: Home
--- NOTE | 2022-03-03 10:43 | NURSING ---
Jose contacted and consent obtained for EGD. Bhavani BANERJEE witnessed with this RN
--- NOTE | 2022-03-03 10:53 | NURSING ---
pt off floor for EGD
--- NOTE | 2022-03-03 11:53 | OP.EGD_ITS ---
Patient Name: Kadi Chance Procedure Date: 03/03/2022 11:20 AM Date of : 1985 Age: 36 Procedure: Upper GI endoscopy Indications: Iron deficiency anemia, Melena Providers: Kaushal Carter DO Medicines: Monitored Anesthesia Care Patient Profile: This is a 36 year old female. Refer to note in patient chart for documentation of history and physical. Patient has symptoms of acute abdominal cramping, acute dyspepsia and acute nausea. Complications: No immediate complications. Procedure: Pre-Anesthesia Assessment: - Prior to the procedure, a History and Physical was performed, and patient medications and allergies were reviewed. The patient is competent. The risks and benefits of the procedure and the sedation options and risks were discussed with the patient. All questions were answered and informed consent was obtained. Patient identification and proposed procedure were verified by the physician in the pre-procedure area. Mental Status Examination: alert and oriented. Airway Examination: normal oropharyngeal airway and neck mobility. Respiratory Examination: clear to auscultation. CV Examination: normal. Prophylactic Antibiotics: The patient does not require prophylactic antibiotics. Prior Anticoagulants: The patient has taken no previous anticoagulant or antiplatelet agents. ASA Grade Assessment: II - A patient with mild systemic disease. After reviewing the risks and benefits, the patient was deemed in satisfactory condition to undergo the procedure. The anesthesia plan was to use monitored anesthesia care (MAC). Immediately prior to administration of medications, the patient was re-assessed for adequacy to receive sedatives. The heart rate, respiratory rate, oxygen saturations, blood pressure, adequacy of pulmonary ventilation, and response to care were monitored throughout the procedure. The physical status of the patient was re-assessed after the procedure. After obtaining informed consent, the endoscope was passed under direct vision. Throughout the procedure, the patient's blood pressure, pulse, and oxygen saturations were monitored continuously. The Endoscope was introduced through the mouth, and advanced to the second part of duodenum. The upper GI endoscopy was accomplished without difficulty. The patient tolerated the procedure well. Scope In: 11:37:15 AM Scope Out: 11:40:47 AM Total Procedure Duration Time 0 hours 3 minutes 32 seconds Findings: The examined esophagus was normal. Localized severe inflammation characterized by congestion (edema), erosions and erythema was found in the gastric antrum and at the pylorus. Biopsies were taken with a cold forceps for histology. Verification of patient identification for the specimen was done. Estimated blood loss was minimal. Many oozing cratered duodenal ulcers with pigmented material were found in the duodenal bulb. The largest lesion was 5 mm in largest dimension. Coagulation for hemostasis using heater probe was successful. Estimated blood loss was minimal. Impression: - Normal esophagus. - Acute gastritis. Biopsied. - Multiple oozing duodenal ulcers with pigmented material. Treated with a heater probe. Recommendation: - Discharge patient to home. - Full liquid diet. - Continue present medications. - Await pathology results. - Repeat upper endoscopy in 2 months for surveillance. - Use Protonix (pantoprazole) 40 mg PO BID for 8 weeks. - Use sucralfate tablets 1 gram PO BID for 4 weeks. Procedure Code(s): --- Professional --- 09674, 59, Esophagogastroduodenoscopy, flexible, transoral; with control of bleeding, any method 95726, Esophagogastroduodenoscopy, flexible, transoral; with biopsy, single or multiple CPT copyright 2017 [employer]. All rights reserved. The codes documented in this report are preliminary and upon terra cotta mason review may be revised to meet current compliance requirements. Kaushal Carter DO 03/03/2022 11:52:35 AM This report has been signed electronically. Number of Addenda: 0 Note Initiated On: 03/03/2022 11:20 AM
--- NOTE | 2022-03-03 11:53 | OP.CCLET_ITS ---
03/03/2022 Himanshu Sanchez Md Re : Upper GI endoscopy procedure for Kadi Chance Dear Dr. Sanchez This procedure was performed on February. My impressions and recommendations are as follows: Impressions : - Normal esophagus. - Acute gastritis. Biopsied. - Multiple oozing duodenal ulcers with pigmented material. Treated with a heater probe. Recommendations : - Discharge patient to home. - Full liquid diet. - Continue present medications. - Await pathology results. - Repeat upper endoscopy in 2 months for surveillance. - Use Protonix (pantoprazole) 40 mg PO BID for 8 weeks. - Use sucralfate tablets 1 gram PO BID for 4 weeks. My findings are described in the full procedure note, which is enclosed. If I can be of further assistance, please feel free to contact me at . Sincerely, Kaushal Friend, 03/03/2022 11:52:35 AM This report has been signed electronically.
--- NOTE | 2022-03-03 13:00 | IMM_PTH ---
PATIENT: MARY LCAUDIO LOC: MS3 U#:[id number] AGE/SX: 36/F ROOM: CT306 RE03/02/[address]: Dr. Yonas Benson MD : 1985 BED: 1 DIS: 03/10/2022 SPEC #: [id number] RECD: 03/03/22 14:52 STATUS: SOUT REQ #: [id number] DONOVAN: 03/03/22 13:[address]: Kaushal Carter DEPT: IMMUNOHISTOCHEMISTRY RECD BY: Isabel Kelly ENTERED: 03/03/22 14:53 SP TYPE: IMMUNO OTHR DR: DO Dr. Franky Payan MD Dr. Rahsaan Friend, DO Dr. Christophe Bursley, MD Tissues: B - Stomach, NOS Procedures: H Pylori (initial) Comments: @ Ordering doctor for H.PYLORI edited from to @ by YUMIKO at 03/03/22 1514 @ Submitting doctor edited from to @ by DIONTEOD at 03/03/22 1514 PHYSICIAN & [place] [id number] SPECIMEN INFORMATION: Tissue Source: B ? Antrum biopsy Clinical Info: Acute GI bleeding Specimen Number: [id number] CPT code: 53911 METHODOLOGY: Deparaffinized sections of prefer/formalin-fixed tissue or PAP/DQ stained slides are incubated with monoclonal/polyclonal antibodies/oligonucleotide probes. Localization is made via biotin free immunoperoxidase method. Appropriate controls are performed and reacted as expected. Results on target cell population are indicated in the following table: RESULTS: ANTIBODY / CLONE RESULT Block B H Pylori (polyclonal) negative These tests were developed and their performance characteristics determined by [facility]. They may not have been cleared or approved by the U.S. Food and Drug Administration. The FDA has determined that such clearance or approval is not necessary. The above immunohistochemical/dualISH markers are ordered and reviewed by the Pathologist. INTERPRETATION: B. Antrum, biopsy: Negative for Helicobacter pylori organisms. AM:judith 03/04/2022
[2022-03-03] MEDS: Lactated Ringers 1,000 ML 70 ML IV (13:35)
[2022-03-03] MEDS: Sucralfate 1 GM Tablet PO ×2 (13:40→16:46)
[2022-03-03] MEDS: Ensure Plus High Protein 120 ML LIQUID PO (16:47)
[2022-03-03] MEDS: Acetaminophen 325 MG Tablet 650 MG PO (17:42)
[2022-03-03] MEDS: Phenobarbital 32.4 MG Tablet 64.8 MG PO (22:12)
[2022-03-03] MEDS: Gabapentin 300 MG Capsule PO (22:12)
[2022-03-03] MEDS: levETIRAcetam 1,000 MG Tablet 1000 MG PO (22:13)
[2022-03-03] MEDS: Topiramate 100 MG Tablet PO (22:13)
[2022-03-04] MEDS: Lactated Ringers 1,000 ML 70 ML IV ×2 (04:09→16:11)
[2022-03-04 05:29] LABS: Absolute Neutrophil Count 0.8 X10^3/uL (2.0-7.7); Eosinophil# 0.07 X10^3/uL; Eosinophils% 4.8 % (0-5); Hematocrit 28.1 % (37-47); Hemoglobin 8.9 g/dL (12.0-15.0); Mean Corp Hgb Conc 31.7 g/dL (32-36); Mean Corpuscular Hgb 32.7 pg (27.0-32.0); Mean Corpuscular Volume 103.3 fL (81-99); Mean Platelet Vol. 11.6 fl (6.2-12.0); Monocyte# 0.07 X10^3/uL; Monocyte% 4.8 % (0-10); Neutrophil # 0.82 X10^3/uL (2.7-7.7); Neutrophil % 55.7 % (47-70); POSITIVE COUNT YES; POSITIVE DIFFERENTIAL YES; Platelet Count 112 K/mm3 (150-450); RBC Distribution Width CV 13.3 % (11.6-14.6); RBC Distribution Width SD 49.6 fl (35.1-43.9); Red Blood Count 2.72 M/mm3 (4.2-5.4)
[2022-03-04 05:47] LABS: White Blood Count 1.5 K/mm3 (4.4-11.0)
[2022-03-04 05:48] LABS: Differential Indicated SCAN CRITERIA MET
[2022-03-04 05:50] VITALS: BP 136/91; PULSE 80; RESP 16; TEMP 36.8; O2SAT 99
[2022-03-04] MEDS: Sucralfate 1 GM Tablet PO ×3 (05:52→16:10)
[2022-03-04 05:58] LABS: Anion Gap 9 (5-15); BUN 15 mg/dL (7-18); BUN/Creat Ratio 26.4 RATIO (10-20); Chloride 109 mmol/L (98-107); Creatinine, Serum 0.57 mg/dL (0.55-1.02); EST Glomerular Filtration Rate 127 mL/min (>60); Est Glom Filt Rate - Afr Amer 154 mL/min (>60); Estimated Creatinine Clearance 131.41 ml/min; Glucose 84 mg/dL (74-106); Potassium 3.3 mmol/L (3.5-5.1); Sodium Level 141 mmol/L (136-145)
[2022-03-04 06:49] LABS: Anisocytosis 1+; Differential Comment SCANNED; Macrocytosis 1+
[2022-03-04 07:11] VITALS: O2SAT 98
[2022-03-04 09:50] LABS: Pathologist Review Reviewed
[2022-03-04] MEDS: Ferrous Sulfate 325 MG Tablet PO (10:02)
[2022-03-04] MEDS: levETIRAcetam 1,000 MG Tablet 1000 MG PO ×2 (10:02→21:19)
[2022-03-04] MEDS: amLODIPine 5 MG Tablet PO (10:02)
[2022-03-04] MEDS: Topiramate 100 MG Tablet PO ×2 (10:03→21:19)
[2022-03-04] MEDS: Gabapentin 300 MG Capsule PO ×2 (10:10→21:19)
[2022-03-04] MEDS: Phenobarbital 32.4 MG Tablet 64.8 MG PO ×2 (10:10→21:19)
[2022-03-04 10:18] VITALS: BP 135/91; PULSE 78; RESP 16; TEMP 36.8; O2SAT 100
--- NOTE | 2022-03-04 10:45 | PCM.PN.HOSP ---
Subjective Subjective Had her EGD yesterday that showed ulcerations in her duodenum as well as acute gastritis. No issues overnight Objective Data Objective Data Vital Signs: Vital Signs Temp Pulse Resp BP Pulse Ox O2 Del Method 98.2 F 78 16 135/91 H 100 Room Air 03/04/22 10:18 03/04/22 10:18 03/04/22 10:18 03/04/22 10:18 03/04/22 10:18 03/04/22 10:18 Oxygen Delivery Method Room Air Weight: 195 lb Body Mass Index (BMI) 30.5 Intake & Output: Intake and Output for Last 24 Hours 03/03/22 03/04/22 03/05/22 03:59 03:59 03:59 Intake Total 2410 / 2410 2009.67 / 2009.67 395.5 / 395.5 Output Total 500 / 500 1000 / 1000 250 / 250 Balance 1909 / 1909 1009.67 / 1009.67 145.5 / 145.5 Lab / Micro Data Result Diagrams: 03/04/22 05:06 03/04/22 05:06 Labs: Laboratory Results - last 24 hr 03/03/22 04:05: Diff Path Review Reviewed 03/04/22 05:06: WBC 1.5 L, RBC 2.72 L, Hgb 8.9 L, Hct 28.1 L, MCV 103.3 H, MCH 32.7 H, MCHC 31.7 L, RDW Std Deviation 49.6 H, RDW Coeff of [place] 13.3, Plt Count 112 L, MPV 11.6, Immature Gran % (Auto) 0.700, Neut % (Auto) 55.7, Lymph % (Auto) 34.0, [place] % (Auto) 4.8, Eos % (Auto) 4.8, Baso % (Auto) 0.0, Absolute Neuts (auto) 0.8 L, Absolute Lymphs (auto) 0.50 L, Nucleated RBC % 2.0, Differential Comment SCANNED, Diff Path Review May foll, Anisocytosis 1+, Macrocytosis 1+ 03/04/22 05:06: Sodium 141, Potassium 3.3 L, Chloride 109 H, Carbon Dioxide 23.0, Anion Gap 9, BUN 15, Creatinine 0.57, Estim Creat Clear Calc 131.41, Est GFR (MDRD) Af Amer 154, Est GFR (MDRD) Non-Af 127, BUN/Creatinine Ratio 26.4 H, Glucose 84, Calcium 8.0 L Micro: Microbiology 03/02/22 21:00 Nasal Secretion SARS-CoV-2 Antigen (Rapid) - Final Physical Exam Narrative General: Alert, Oriented x3, Cooperative, No apparent distress HEENT: Atraumatic, PERRLA, EOMI, Normocephalic Oral: Dry mucosa Neck: Supple, No JVD Lungs: Clear to auscultation, Normal air movement, No rhonchi, No wheeze, No rales Cardiovascular: Regular rate, Regular Rhythm, Normal S1, Normal S2, No murmurs Abdomen: Soft, Non Tender, Non-Distended, No Hepato-splenomegaly Extremities: No edema, Capillary Refill Less than 3 Seconds Skin: No rashes, No breakdown Musculoskeletal: No Tenderness to Palpation of Joints or Extremities Neurological: Cranial nerves II-XII grossly intact, Motor Exam 5/5 strength throughout, Sensory exam intact to light touch and pain Psych/Mental Status: Flat affect, Appropriate Assessment & Plan Assessment/Plan (1) Acute GI bleeding: (2) Anemia: (3) Nausea and vomiting: (4) Dehydration: (5) Pancytopenia: PLAN: Plan 1. Acute anemia from possible GI bleed ? Has been having episodes of emesis, the ED physician did a rectal exam and noted dark stools but did not do a guaiac ? H&H's are stable ? Appreciate gastroenterology's assistance, duodenal ulcerations as well as gastritis was found on EGD ? Continue with antiemetics as well as Protonix ? Continue with her home iron ? Continue with IV fluids ? Her MCV was elevated and it appears that she has a low folic acid and a borderline low vitamin B12, will start replacement for both of these 2. HTN ? Continue with her home Norvasc ? Blood pressures are currently stable 3. Pancytopenia/elevated LFTs ? Given the acuity of her pancytopenia is likely not medication related and it could be due to inflammation ? We will repeat a CBC in the morning and obtain a retic count to make sure that she is appropriately adjusting to her anemia ? She does also have elevated LFTs, her abdominal ultrasound was unremarkable we will repeat a CMP in the morning and monitor her liver function 4. Seizure disorder/bilateral lower extremity neuropathy ? Stable ? Continue with her home medications ? Phenobarb level was stable Aminta level ordered by anesthesia is pending DVT: SCDs Charges/Coding Visit Charges Inpatient E&M: 58420 Subs Hosp L2
[2022-03-04] MEDS: Cyanocobalamin 500 MCG Tablet 1000 MCG PO (11:32)
[2022-03-04 14:51] VITALS: BP 137/90; PULSE 84; RESP 16; TEMP 36.9; O2SAT 99
[2022-03-04 15:08] LABS: Folate, RBC (Hct) Test 28.2 % (34.0-46.6)
[2022-03-04 20:00] VITALS: BP 135/70; PULSE 78; RESP 16; TEMP 36.6; O2SAT 98
[2022-03-04 20:16] LABS: Folates, RBC Test 642 ng/mL (>498)
--- NOTE | 2022-03-04 20:23 | PN_ITS ---
Subjective Subjective Patient upper endoscopy for upper GI bleed and was discovered to have bleeding ulcer that was treated endoscopically. Objective Data Objective Data Vital Signs: Vital Signs Temp Pulse Resp BP Pulse Ox O2 Del Method 97.9 F 78 16 135/70 H 98 Room Air 03/04/22 20:00 03/04/22 20:00 03/04/22 20:00 03/04/22 20:00 03/04/22 20:00 03/04/22 20:00 Oxygen Delivery Method Room Air Weight: 195 lb Body Mass Index (BMI) 30.5 Intake & Output: Intake and Output for Last 24 Hours 03/02/22 03/03/22 03/04/22 23:59 23:59 23:59 Intake Total 2410 / 2410 1709.67 / 2009.67 1698.03 / 1698.03 Output Total 500 / 500 900 / 1000 650 / 650 Balance 1909 / 1909 809.67 / 1009.67 1048.03 / 1048.03 Lab / Micro Data Result Diagrams: 03/04/22 05:06 03/04/22 05:06 Labs: Laboratory Results - last 24 hr 03/03/22 04:05: Diff Path Review Reviewed 03/03/22 04:05: RBC Folate Hemolysate 181.0, RBC Folate 642, Hematocrit 28.2 L 03/04/22 05:06: WBC 1.5 L, RBC 2.72 L, Hgb 8.9 L, Hct 28.1 L, MCV 103.3 H, MCH 32.7 H, MCHC 31.7 L, RDW Std Deviation 49.6 H, RDW Coeff of [place] 13.3, Plt Count 112 L, MPV 11.6, Immature Gran % (Auto) 0.700, Neut % (Auto) 55.7, Lymph % (Auto) 34.0, [place] % (Auto) 4.8, Eos % (Auto) 4.8, Baso % (Auto) 0.0, Absolute Neuts (auto) 0.8 L, Absolute Lymphs (auto) 0.50 L, Nucleated RBC % 2.0, Differential Comment SCANNED, Diff Path Review May foll, Anisocytosis 1+, Macrocytosis 1+ 03/04/22 05:06: Sodium 141, Potassium 3.3 L, Chloride 109 H, Carbon Dioxide 23.0, Anion Gap 9, BUN 15, Creatinine 0.57, Estim Creat Clear Calc 131.41, Est GFR (MDRD) Af Amer 154, Est GFR (MDRD) Non-Af 127, BUN/Creatinine Ratio 26.4 H, Glucose 84, Calcium 8.0 L Micro: Microbiology 03/02/22 21:00 Nasal Secretion SARS-CoV-2 Antigen (Rapid) - Final Physical Exam Narrative General: Alert, Oriented x3, Cooperative, No apparent distress HEENT: Atraumatic, PERRLA, EOMI, Normocephalic Oral: Dry mucosa Neck: Supple, No JVD Lungs: Clear to auscultation, Normal air movement, No rhonchi, No wheeze, No rales Cardiovascular: Regular rate, Regular Rhythm, Normal S1, Normal S2, No murmurs Abdomen: Soft, Non Tender, Non-Distended, No Hepato-splenomegaly Extremities: No edema, Capillary Refill Less than 3 Seconds Skin: No rashes, No breakdown Musculoskeletal: No Tenderness to Palpation of Joints or Extremities Neurological: Cranial nerves II-XII grossly intact, Motor Exam 5/5 strength throughout, Sensory exam intact to light touch and pain Psych/Mental Status: Flat affect, Appropriate Assessment & Plan Assessment/Plan (1) Acute GI bleeding: PLAN: She is not having any abdominal pain. She does not have any nausea. Her hemoglobin seems to be stable. Recommend Protonix 40 mg p.o. twice daily and Carafate 3 times a day. She will need repeat endoscopy in approximately 2 months to make sure it is fully healed. Charges/Coding Visit Charges Inpatient E&M: 21121 Subs Hosp L2
[2022-03-05 02:06] VITALS: BP 146/97; PULSE 84; RESP 18; TEMP 36.8; O2SAT 99
[2022-03-05] MEDS: Lactated Ringers 1,000 ML 70 ML IV ×2 (06:34→20:50)
[2022-03-05] MEDS: Sucralfate 1 GM Tablet PO ×3 (06:34→15:23)
[2022-03-05 06:42] LABS: Absolute Lymphocyte Count 0.49 X10^3/uL (0.83-4.51); Absolute Neutrophil Count 0.9 X10^3/uL (2.0-7.7); Eosinophils% 6.3 % (0-5); Hematocrit 26.7 % (37-47); Hemoglobin 8.6 g/dL (12.0-15.0); Lymphocyte # 0.49 X10^3/ul (0.83-4.51); Lymphocyte % 30.8 % (19-41); Mean Corp Hgb Conc 32.2 g/dL (32-36); Mean Corpuscular Hgb 32.8 pg (27.0-32.0); Mean Corpuscular Volume 101.9 fL (81-99); Mean Platelet Vol. 10.9 fl (6.2-12.0); Monocyte# 0.05 X10^3/uL; Monocyte% 3.1 % (0-10); NRBC Flagged by Analyzer 0 % (0-5); Neutrophil # 0.94 X10^3/uL (2.7-7.7); Neutrophil % 59.2 % (47-70); POSITIVE DIFFERENTIAL YES; Platelet Count 109 K/mm3 (150-450); RBC Distribution Width SD 48.6 fl (35.1-43.9); RET-HE 34.6 pg (30-35); Red Blood Count 2.62 M/mm3 (4.2-5.4); Reticulocyte Count 0.61 % (0.5-1.5); White Blood Count 1.6 K/mm3 (4.4-11.0)
[2022-03-05 07:02] LABS: AST(SGOT) 475 U/L (15-37); Alanine Aminotransfer ALT/SGPT 84 U/L (13-56); Albumin, Serum 2.2 g/dL (3.2-5.0); Alkaline Phosphatase 43 U/L (45-117); Anion Gap 10 (5-15); BUN 11 mg/dL (7-18); Calcium,Total 7.6 mg/dL (8.5-10.1); Chloride 105 mmol/L (98-107); Creatinine, Serum 0.46 mg/dL (0.55-1.02); EST Glomerular Filtration Rate 163 mL/min (>60); Est Glom Filt Rate - Afr Amer 197 mL/min (>60); Estimated Creatinine Clearance 162.83 ml/min; Globulin 2.3 g/dL (2.2-4.2); Glucose 81 mg/dL (74-106); Potassium 3.5 mmol/L (3.5-5.1); Protein, Total 4.5 g/dL (6.4-8.2); Sodium Level 137 mmol/L (136-145)
[2022-03-05 07:04] LABS: Differential Indicated SCAN CRITERIA MET
[2022-03-05 08:00] VITALS: BP 138/98; PULSE 83; RESP 16; TEMP 36.4; O2SAT 98
[2022-03-05] MEDS: Gabapentin 300 MG Capsule PO ×2 (09:11→20:50)
[2022-03-05] MEDS: amLODIPine 5 MG Tablet PO (09:11)
[2022-03-05] MEDS: Topiramate 100 MG Tablet PO ×2 (09:11→20:50)
[2022-03-05] MEDS: Ferrous Sulfate 325 MG Tablet PO (09:11)
[2022-03-05] MEDS: Phenobarbital 32.4 MG Tablet 64.8 MG PO ×2 (09:11→20:50)
[2022-03-05] MEDS: levETIRAcetam 1,000 MG Tablet 1000 MG PO ×2 (09:11→20:50)
[2022-03-05] MEDS: Cyanocobalamin 500 MCG Tablet 1000 MCG PO (09:11)
--- NOTE | 2022-03-05 09:51 | PN.HOSP_ITS ---
Subjective Subjective Doing well, no issues overnight. Objective Data Objective Data Vital Signs: Vital Signs Temp Pulse Resp BP Pulse Ox O2 Del Method 97.6 F L 83 16 138/98 H 98 Room Air 03/05/22 08:00 03/05/22 08:00 03/05/22 08:00 03/05/22 08:00 03/05/22 08:00 03/05/22 09:34 Oxygen Delivery Method Room Air Weight: 195 lb Body Mass Index (BMI) 30.5 Intake & Output: Intake and Output for Last 24 Hours 03/04/22 03/05/22 03/06/22 03:59 03:59 03:59 Intake Total 2009.67 / 2008.67 1508.03 / 1508.03 1310 / 1310 Output Total 1000 / 1000 850 / 850 100 / 100 Balance 1009.67 / 1009.67 658.03 / 658.03 1210 / 1210 Lab / Micro Data Result Diagrams: 03/05/22 06:30 03/05/22 06:30 Labs: Laboratory Results - last 24 hr 03/03/22 04:05: Diff Path Review Reviewed 03/03/22 04:05: RBC Folate Hemolysate 181.0, RBC Folate 642, Hematocrit 28.2 L 03/05/22 06:30: WBC 1.6 L, RBC 2.62 L, Hgb 8.6 L, Hct 26.7 L, MCV 101.9 H, MCH 32.8 H, MCHC 32.2, RDW Std Deviation 48.6 H, RDW Coeff of [place] 13.0, Plt Count 1 09 L, MPV 10.9, Immature Gran % (Auto) 0.600, Neut % (Auto) 59.2, Lymph % (Auto) 30.8, [place] % (Auto) 3.1, Eos % (Auto) 6.3 H, Baso % (Auto) 0.0, Absolute Neuts (auto) 0.9 L, Absolute Lymphs (auto) 0.49 L, Nucleated RBC % 0, Diff Path Review June, Retic Count 0.61, Immature Retic Fraction 10.10, Retic Hgb Equivalent 34.6 03/05/22 06:30: Sodium 137, Potassium 3.5, Chloride 105, Carbon Dioxide 22.0, Anion Gap 10, BUN 11, Creatinine 0.46 L, Estim Creat Clear Calc 162.83, Est GFR (MDRD) Af Amer 197, Est GFR (MDRD) Non-Af 163, BUN/Creatinine Ratio 24.0 H, Glucose 81, Calcium 7.6 L, Total Bilirubin 0.50, AST 475 H, ALT 84 H, Alkaline Phosphatase 43 L, Total Protein 4.5 L, Albumin 2.2 L, Globulin 2.3, Albumi n/Globulin Ratio 1.0 Micro: Microbiology 03/02/22 21:00 Nasal Secretion SARS-CoV-2 Antigen (Rapid) - Final Physical Exam Narrative General: Alert, Oriented x3, Cooperative, No apparent distress HEENT: Atraumatic, PERRLA, EOMI, Normocephalic Oral: Dry mucosa Neck: Supple, No JVD Lungs: Clear to auscultation, Normal air movement, No rhonchi, No wheeze, No rales Cardiovascular: Regular rate, Regular Rhythm, Normal S1, Normal S2, No murmurs Abdomen: Soft, Non Tender, Non-Distended, No Hepato-splenomegaly Extremities: No edema, Capillary Refill Less than 3 Seconds Skin: No rashes, No breakdown Musculoskeletal: No Tenderness to Palpation of Joints or Extremities Neurological: Cranial nerves II-XII grossly intact, Motor Exam 5/5 strength throughout, Sensory exam intact to light touch and pain Psych/Mental Status: Flat affect, Appropriate Assessment & Plan Assessment/Plan (1) Acute GI bleeding: (2) Anemia: (3) Nausea and vomiting: (4) Dehydration: (5) Pancytopenia: PLAN: Plan 1. Acute anemia from possible GI bleed with macrocytosis ? Has been having episodes of emesis, the ED physician did a rectal exam and noted dark stools but did not do a guaiac ?Hemoglobin continues to slowly trend downwards, and her retic is not noel ropriate for her hemoglobin ? Appreciate gastroenterology's assistance, duodenal ulcerations as well as gastritis was found on EGD ? Continue with antiemetics as well as Protonix ? Continue with her home iron, her vitamin B12 and folic acid were low so these are also being replaced ? Continue with IV fluids 2. HTN ? Continue with her home Norvasc ? Blood pressures are currently stable 3. Pancytopenia/elevated LFTs ? Given the acuity of her pancytopenia is likely not medication related and it could be due to inflammation ?Her reticulocyte count is 0.61 and her hemoglobin is low would expect a higher reticulocyte count given her anemia, will check iron studies and will also add a CPK and aldolase to assist with determining the source of her LFTs. Hepatitis panel is pending as is an HIV. ? She does also have elevated LFTs, her abdominal ultrasound was unremarkable we will repeat a CMP in the morning and monitor her liver function 4. Seizure disorder/bilateral lower extremity neuropathy ? Stable ? Continue with her home medications ? Phenobarb level was stable Keppra level ordered by anesthesia is pending DVT: SCDs Charges/Coding Visit Charges Inpatient E&M: 89225 Subs Hosp L2
[2022-03-05 10:29] LABS: CPK Total, Creatine Kinase 2217 U/L (26-192); Ferritin 120 ng/mL (8-252); Iron 58 ug/dL (50-170); Iron Binding Capacity,Total 100 ug/dL (250-450)
[2022-03-05 11:40] LABS: HIV - WCH Non-Reactive (Nonreactive)
[2022-03-05 14:42] VITALS: BP 130/85; PULSE 81; RESP 16; TEMP 36.6; O2SAT 98
[2022-03-05 20:45] VITALS: BP 130/66; PULSE 85; RESP 18; TEMP 36.8; O2SAT 100
[2022-03-06 03:15] VITALS: BP 147/100; PULSE 86; RESP 18; TEMP 36.6; O2SAT 100
[2022-03-06] MEDS: Sucralfate 1 GM Tablet PO ×3 (05:45→16:22)
[2022-03-06 07:42] LABS: Absolute Neutrophil Count 0.9 X10^3/uL (2.0-7.7); Eosinophil# 0.11 X10^3/uL; Eosinophils% 7.4 % (0-5); Hematocrit 26.7 % (37-47); Lymphocyte % 26.8 % (19-41); Mean Corp Hgb Conc 33.7 g/dL (32-36); Mean Corpuscular Hgb 32.6 pg (27.0-32.0); Mean Corpuscular Volume 96.7 fL (81-99); Mean Platelet Vol. 11.2 fl (6.2-12.0); Monocyte# 0.08 X10^3/uL; Monocyte% 5.4 % (0-10); NRBC Flagged by Analyzer 1.3 % (0-5); Neutrophil # 0.88 X10^3/uL (2.7-7.7); Neutrophil % 59.1 % (47-70); POSITIVE COUNT YES; POSITIVE DIFFERENTIAL YES; Platelet Count 98 K/mm3 (150-450); RBC Distribution Width CV 12.7 % (11.6-14.6); RBC Distribution Width SD 44.1 fl (35.1-43.9); Red Blood Count 2.76 M/mm3 (4.2-5.4); White Blood Count 1.5 K/mm3 (4.4-11.0)
[2022-03-06 07:53] LABS: ALB/GLOB Ratio 0.9 RATIO (0.9-2.4); AST(SGOT) 457 U/L (15-37); Alanine Aminotransfer ALT/SGPT 97 U/L (13-56); Albumin, Serum 2.2 g/dL (3.2-5.0); Alkaline Phosphatase 48 U/L (45-117); Anion Gap 10 (5-15); BUN 7 mg/dL (7-18); BUN/Creat Ratio 15.1 RATIO (10-20); Calcium,Total 7.8 mg/dL (8.5-10.1); Chloride 102 mmol/L (98-107); Creatinine, Serum 0.46 mg/dL (0.55-1.02); EST Glomerular Filtration Rate 160 mL/min (>60); Est Glom Filt Rate - Afr Amer 193 mL/min (>60); Estimated Creatinine Clearance 162.83 ml/min; Globulin 2.5 g/dL (2.2-4.2); Glucose 80 mg/dL (74-106); Potassium 3.2 mmol/L (3.5-5.1); Protein, Total 4.7 g/dL (6.4-8.2); Sodium Level 135 mmol/L (136-145)
[2022-03-06 08:10] LABS: Differential Indicated SCAN CRITERIA MET
[2022-03-06 08:11] LABS: Differential Comment S
[2022-03-06 08:27] VITALS: BP 158/100; PULSE 92; RESP 17; TEMP 36.6; O2SAT 97
[2022-03-06] MEDS: Folic Acid 1 MG Tablet PO (08:28)
[2022-03-06] MEDS: Topiramate 100 MG Tablet PO ×2 (08:28→21:02)
[2022-03-06] MEDS: levETIRAcetam 1,000 MG Tablet 1000 MG PO ×2 (08:28→21:02)
[2022-03-06] MEDS: amLODIPine 5 MG Tablet PO (08:28)
[2022-03-06] MEDS: Ferrous Sulfate 325 MG Tablet PO (08:29)
[2022-03-06] MEDS: Gabapentin 300 MG Capsule PO ×2 (08:29→21:02)
[2022-03-06] MEDS: Phenobarbital 32.4 MG Tablet 64.8 MG PO ×2 (08:29→21:02)
[2022-03-06] MEDS: Cyanocobalamin 500 MCG Tablet 1000 MCG PO (08:29)
--- NOTE | 2022-03-06 10:52 | PCM.PN.HOSP ---
Subjective Subjective No issues overnight, hemoglobin has improved Objective Data Objective Data Vital Signs: Vital Signs Temp Pulse Resp BP Pulse Ox O2 Del Method 97.9 F 92 17 158/100 H 97 Room Air 03/06/22 08:27 03/06/22 08:27 03/06/22 08:27 03/06/22 08:27 03/06/22 08:27 03/06/22 08:49 Oxygen Delivery Method Room Air Weight: 195 lb Body Mass Index (BMI) 30.5 Intake & Output: Intake and Output for Last 24 Hours 03/05/22 03/06/22 03/07/22 03:59 03:59 03:59 Intake Total 1508.03 / 1508.03 2468.87 / 2468.87 110 / 110 Output Total 850 / 850 100 / 100 Balance 658.03 / 658.03 2368.87 / 2368.87 110 / 110 Lab / Micro Data Result Diagrams: 03/06/22 07:05 03/06/22 07:05 Labs: Laboratory Results - last 24 hr 03/05/22 10:25: HIV 1&2 Antibody Non-Reactive 03/06/22 07:05: WBC 1.5 L, RBC 2.76 L, Hgb 9.0 L, Hct 26.7 L, MCV 96.7 D, MCH 32.6 H, MCHC 33.7, RDW Std Deviation 44.1 H, RDW Coeff of [place] 12.7, Plt Count 98 L, MPV 11.2, Immature Gran % (Auto) 1.300 H, Neut % (Auto) 59.1, Lymph % (Auto) 26.8, [place] % (Auto) 5.4, Eos % (Auto) 7.4 H, Baso % (Auto) 0.0, Absolute Neuts (auto) 0.9 L, Absolute Lymphs (auto) 0.40 L, Nucleated RBC % 1.3, Differential Comment S, Diff Path Review June03/06/22 07:05: Sodium 135 L, Potassium 3.2 L, Chloride 102, Carbon Dioxide 23.0, Anion Gap 10, BUN 7, Creatinine 0.46 L, Estim Creat Clear Calc 162.83, Est GFR (MDRD) Af Amer 193, Est GFR (MDRD) Non-Af 160, BUN/Creatinine Ratio 15.1, Glucose 80, Calcium 7.8 L, Total Bilirubin 0.50, AST 457 H, ALT 97 H, Alkaline Phosphatase 48, Total Protein 4.7 L, Albumin 2.2 L, Globulin 2.5, Albumin/Globulin Ratio 0.9 Micro: Microbiology 03/02/22 21:00 Nasal Secretion SARS-CoV-2 Antigen (Rapid) - Final Physical Exam Narrative General: Alert, Oriented x3, Cooperative, No apparent distress HEENT: Atraumatic, PERRLA, EOMI, Normocephalic Oral: Dry mucosa Neck: Supple, No JVD Lungs: Clear to auscultation, Normal air movement, No rhonchi, No wheeze, No rales Cardiovascular: Regular rate, Regular Rhythm, Normal S1, Normal S2, No murmurs Abdomen: Soft, Non Tender, Non-Distended, No Hepato-splenomegaly Extremities: No edema, Capillary Refill Less than 3 Seconds Skin: No rashes, No breakdown Musculoskeletal: No Tenderness to Palpation of Joints or Extremities Neurological: Cranial nerves II-XII grossly intact, Motor Exam 5/5 strength throughout, Sensory exam intact to light touch and pain Psych/Mental Status: Flat affect, Appropriate Assessment & Plan Assessment/Plan (1) Acute GI bleeding: (2) Anemia: (3) Nausea and vomiting: (4) Dehydration: (5) Pancytopenia: PLAN: Plan 1. Acute anemia from possible GI bleed with macrocytosis ? Has been having episodes of emesis, the ED physician did a rectal exam and noted dark stools but did not do a guaiac ?Hemoglobin is stable, and her retic is not appropriate for her hemoglobin ? Appreciate gastroenterology's assistance, duodenal ulcerations as well as gastritis was found on EGD ? Continue with antiemetics as well as Protonix ? Continue with her home iron, her vitamin B12 and folic acid were low so these are also being replaced ? Continue with IV fluids 2. HTN ? Continue with her home Norvasc ? Blood pressures are currently stable 3. Pancytopenia/elevated LFTs with possible polymyositis ? Given the acuity of her pancytopenia is likely not medication related and it could be due to inflammation ?Her reticulocyte count is 0.61 and her hemoglobin is low would expect a higher reticulocyte count given her anemia, ? She does also have elevated LFTs, her abdominal ultrasound was unremarkable we will repeat a CMP in the morning and monitor her liver function, which appear to have been stabilized at the moment ? Aldolase is still pending, however her CPK is elevated consistent with possible polymyositis so she is not complaining of any muscle pains we will start her on steroids. HIV is nonreactive and hepatitis panel is also pending. 4. Seizure disorder/bilateral lower extremity neuropathy ? Stable ? Continue with her home medications ? Phenobarb level was stable Keppra level ordered by anesthesia is pending DVT: SCDs Charges/Coding Visit Charges Inpatient E&M: 22552 Subs Hosp L2
[2022-03-06 11:07] LABS: HEPATITIS B SURFACE AG Negative (Negative); Hep C Antibodies <0.1 s/co ratio (0.0-0.9); Hepatitis A IgM Antibody Negative (Negative); Hepatitis B Core AB IgM Negative (Negative)
[2022-03-06 11:21] LABS: Magnesium 1.5 mg/dL (1.6-2.6); Phosphorus 2.8 mg/dL (2.5-4.9)
[2022-03-06] MEDS: Lactated Ringers 1,000 ML 70 ML IV (12:04)
--- NOTE | 2022-03-06 12:36 | PN_ITS ---
Subjective Subjective Patient has been tolerating a diet. She denies abdominal pain. She denies any nausea. She denies any chest pain or shortness of breath. Objective Data Objective Data Vital Signs: Vital Signs Temp Pulse Resp BP Pulse Ox O2 Del Method 97.9 F 92 17 158/100 H 97 Room Air 03/06/22 08:27 03/06/22 08:27 03/06/22 08:27 03/06/22 08:27 03/06/22 08:27 03/06/22 08:49 Oxygen Delivery Method Room Air Weight: 195 lb Body Mass Index (BMI) 30.5 Intake & Output: Intake and Output for Last 24 Hours 03/04/22 03/05/22 03/06/22 23:59 23:59 23:59 Intake Total 1808.03 / 1808.03 2468.87 / 2468.87 1110 / 1110 Output Total 650 / 650 400 / 400 200 / 200 Balance 1158.03 / 1158.03 2068.87 / 2068.87 910 / 910 Lab / Micro Data Result Diagrams: 03/06/22 07:05 03/06/22 07:05 Labs: Laboratory Results - last 24 hr 03/05/22 10:25: Hepatitis A IgM Ab Negative, Hep Bs Antigen Negative, Hep B Core IgM Ab Negative, Hepatitis C Ab (EIA) <0.1, Hep C Ab Comment Comment 03/06/22 07:05: WBC 1.5 L, RBC 2.76 L, Hgb 9.0 L, Hct 26.7 L, MCV 96.7 D, MCH 32.6 H, MCHC 33.7, RDW Std Deviation 44.1 H, RDW Coeff of [place] 12.7, Plt Count 98 L, MPV 11.2, Immature Gran % (Auto) 1.300 H, Neut % (Auto) 59.1, Lymph % (Auto) 26.8, [place] % (Auto) 5.4, Eos % (Auto) 7.4 H, Baso % (Auto) 0.0, Absolute Neuts (auto) 0.9 L, Absolute Lymphs (auto) 0.40 L, Nucleated RBC % 1.3, Differential Comment S, Diff Path Review June03/06/22 07:05: Sodium 135 L, Potassium 3.2 L, Chloride 102, Carbon Dioxide 23.0, Anion Gap 10, BUN 7, Creatinine 0.46 L, Estim Creat Clear Calc 162.83, Est GFR (MDRD) Af Amer 193, Est GFR (MDRD) Non-Af 160, BUN/Creatinine Ratio 15.1, Glucose 80, Calcium 7.8 L, Total Bilirubin 0.50, AST 457 H, ALT 97 H, Alkaline Phosphatase 48, Total Protein 4.7 L, Albumin 2.2 L, Globulin 2.5, Albumin/Globulin Ratio 0.9 03/06/22 07:05: Phosphorus 2.8, Magnesium 1.5 L Micro: Microbiology 03/02/22 21:00 Nasal Secretion SARS-CoV-2 Antigen (Rapid) - Final Physical Exam Narrative General: Alert, Oriented x3, Cooperative, No apparent distress HEENT: Atraumatic, PERRLA, EOMI, Normocephalic Oral: Dry mucosa Neck: Supple, No JVD Lungs: Clear to auscultation, Normal air movement, No rhonchi, No wheeze, No rales Cardiovascular: Regular rate, Regular Rhythm, Normal S1, Normal S2, No murmurs Abdomen: Soft, Non Tender, Non-Distended, No Hepato-splenomegaly Extremities: No edema, Capillary Refill Less than 3 Seconds Skin: No rashes, No breakdown Musculoskeletal: No Tenderness to Palpation of Joints or Extremities Neurological: Cranial nerves II-XII grossly intact, Motor Exam 5/5 strength throughout, Sensory exam intact to light touch and pain Psych/Mental Status: Flat affect, Appropriate Assessment & Plan Assessment/Plan (1) Acute GI bleeding: PLAN: She is status post upper endoscopy with treatment of angiodysplastic lesions and a peptic ulcer. Biopsies are pending and H. pylori testing is pending. Her hemoglobin seems to be stable at this time however her platelet count and white blood cell count are low. Pancytopenia from unknown cause at this time. (2) Transaminitis: PLAN: Her increased AST and ALT are likely from muscle enzymes. She got a CPK checked which was elevated. The differential diagnosis does include an autoimmune myopathy such as dermatomyositis or polymyositis. Work-up in progress. Charges/Coding Visit Charges Inpatient E&M: 05466 Subs Hosp L2
[2022-03-06 14:00] VITALS: BP 147/89; PULSE 88; RESP 16; TEMP 36.6; O2SAT 97
[2022-03-06 20:57] VITALS: BP 168/90; PULSE 76; RESP 18; TEMP 36.4; O2SAT 100
[2022-03-06] MEDS: 0.9% Saline Lock 10 ML Syringe IV ×2 (21:01→21:06)
[2022-03-06] MEDS: Menthol/Lanolin/Calamine/Znox 113 GM Tube 1 APPLIC TOPICAL (21:02)
[2022-03-06] MEDS: Acetaminophen 325 MG Tablet 650 MG PO (21:06)
[2022-03-06] MEDS: Ondansetron 4 MG/2 ML Vial IV (21:06)
[2022-03-07] MEDS: Lactated Ringers 1,000 ML 70 ML IV ×2 (02:55→16:05)
[2022-03-07] MEDS: Menthol/Lanolin/Calamine/Znox 113 GM Tube 1 APPLIC TOPICAL ×3 (02:56→21:57)
[2022-03-07 02:57] VITALS: BP 155/93; PULSE 80; RESP 18; TEMP 36.3; O2SAT 98
[2022-03-07] MEDS: Sucralfate 1 GM Tablet PO ×3 (05:06→16:05)
[2022-03-07] MEDS: 0.9% Saline Lock 10 ML Syringe IV ×2 (05:06→14:20)
[2022-03-07 05:19] LABS: Absolute Lymphocyte Count 0.28 X10^3/uL (0.83-4.51); Absolute Neutrophil Count 0.9 X10^3/uL (2.0-7.7); Hematocrit 28.5 % (37-47); Hemoglobin 9.6 g/dL (12.0-15.0); Lymphocyte # 0.28 X10^3/ul (0.83-4.51); Lymphocyte % 23.1 % (19-41); Mean Corp Hgb Conc 33.7 g/dL (32-36); Mean Corpuscular Hgb 33.1 pg (27.0-32.0); Mean Corpuscular Volume 98.3 fL (81-99); Mean Platelet Vol. 10.6 fl (6.2-12.0); Monocyte# 0.04 X10^3/uL; Monocyte% 3.3 % (0-10); NRBC Flagged by Analyzer 4.1 % (0-5); Neutrophil # 0.88 X10^3/uL (2.7-7.7); Neutrophil % 72.8 % (47-70); POSITIVE COUNT YES; POSITIVE DIFFERENTIAL YES; POSITIVE MORPHOLOGY YES; Platelet Count 120 K/mm3 (150-450); RBC Distribution Width CV 12.4 % (11.6-14.6); RBC Distribution Width SD 44.4 fl (35.1-43.9)
[2022-03-07 05:29] LABS: Differential Indicated SCAN CRITERIA MET
[2022-03-07 05:30] LABS: White Blood Count 1.2 K/mm3 (4.4-11.0)
[2022-03-07 06:35] LABS: ALB/GLOB Ratio 0.8 RATIO (0.9-2.4); AST(SGOT) 420 U/L (15-37); Alanine Aminotransfer ALT/SGPT 115 U/L (13-56); Albumin, Serum 2.5 g/dL (3.2-5.0); Alkaline Phosphatase 54 U/L (45-117); Anion Gap 10 (5-15); BUN 8 mg/dL (7-18); BUN/Creat Ratio 19.8 RATIO (10-20); Calcium,Total 8.1 mg/dL (8.5-10.1); Chloride 102 mmol/L (98-107); EST Glomerular Filtration Rate 188 mL/min (>60); Est Glom Filt Rate - Afr Amer 228 mL/min (>60); Estimated Creatinine Clearance 187.26 ml/min; Globulin 3.1 g/dL (2.2-4.2); Glucose 108 mg/dL (74-106); Potassium 3.5 mmol/L (3.5-5.1); Protein, Total 5.6 g/dL (6.4-8.2); Sodium Level 133 mmol/L (136-145)
[2022-03-07 07:02] LABS: Differential Comment SCANNED
[2022-03-07 08:50] VITALS: BP 154/98; PULSE 79; RESP 16; TEMP 36.6; O2SAT 99
[2022-03-07] MEDS: Ferrous Sulfate 325 MG Tablet PO (08:54)
[2022-03-07] MEDS: amLODIPine 5 MG Tablet PO (08:54)
[2022-03-07] MEDS: Phenobarbital 32.4 MG Tablet 64.8 MG PO ×2 (08:54→21:58)
[2022-03-07] MEDS: Cyanocobalamin 500 MCG Tablet 1000 MCG PO (08:54)
[2022-03-07] MEDS: Topiramate 100 MG Tablet PO ×2 (08:54→21:58)
[2022-03-07] MEDS: Folic Acid 1 MG Tablet PO (08:54)
[2022-03-07] MEDS: Gabapentin 300 MG Capsule PO ×2 (08:54→21:58)
--- NOTE | 2022-03-07 10:02 | PCM.PN.HOSP ---
Subjective Subjective Patient is a 36-year-old female admitted with nausea vomiting and melena. Underwent EGD which found duodenal ulcerations as well as gastritis. Was also found to have elevated CPK levels managed as a case of myositis. Objective Data Objective Data Vital Signs: Vital Signs Temp Pulse Resp BP Pulse Ox O2 Del Method 97.8 F 79 16 154/98 H 99 Room Air 03/07/22 08:50 03/07/22 08:50 03/07/22 08:50 03/07/22 08:50 03/07/22 08:50 03/07/22 08:50 Oxygen Delivery Method Room Air Weight: 88.451 kg Body Mass Index (BMI) 30.5 Intake & Output: Intake and Output for Last 24 Hours 03/05/22 03/06/22 03/07/22 23:59 23:59 23:59 Intake Total 2468.87 / 2468.87 1220 / 1220 1534.67 / 1534.67 Output Total 400 / 400 1500 / 1500 150 / 150 Balance 2068.87 / 2068.87 -280 / -280 1384.67 / 1384.67 Lab / Micro Data Result Diagrams: 03/07/22 04:07 03/07/22 04:07 Labs: Laboratory Results - last 24 hr 03/05/22 10:25: Hepatitis A IgM Ab Negative, Hep Bs Antigen Negative, Hep B Core IgM Ab Negative, Hepatitis C Ab (EIA) <0.1, Hep C Ab Comment Comment 03/06/22 07:05: Phosphorus 2.8, Magnesium 1.5 L 03/07/22 04:07: WBC 1.2 L*, RBC 2.90 L, Hgb 9.6 L, Hct 28.5 L, MCV 98.3, MCH 33.1 H, MCHC 33.7, RDW Std Deviation 44.4 H, RDW Coeff of [place] 12.4, Plt Count 120 L, MPV 10.6, Immature Gran % (Auto) 0.800, Neut % (Auto) 72.8 H, Lymph % (Auto) 23.1, [place] % (Auto) 3.3, Eos % (Auto) 0.0, Baso % (Auto) 0.0, Absolute Neuts (auto) 0.9 L, Absolute Lymphs (auto) 0.28 L, Nucleated RBC % 4.1, Differential Comment SCANNED, Diff Path Review June foll 03/07/22 04:07: Sodium 133 L, Potassium 3.5, Chloride 102, Carbon Dioxide 21.0, Anion Gap 10, BUN 8, Creatinine 0.40 L, Estim Creat Clear Calc 187.26, Est GFR (MDRD) Af Amer 228, Est GFR (MDRD) Non-Af 188, BUN/Creatinine Ratio 19.8, Glucose 108 H, Calcium 8.1 L, Total Bilirubin 0.60, AST 420 H, ALT 115 H, Alkaline Phosphatase 54, Total Protein 5.6 L, Albumin 2.5 L, Globulin 3.1, Albumin/Globulin Ratio 0.8 L Micro: Microbiology 03/02/22 21:00 Nasal Secretion SARS-CoV-2 Antigen (Rapid) - Final Physical Exam Narrative GENERAL: In no apparent distress but refuses to answer questions HEENT: Atraumatic; normocephalic EYES; Anicteric, Normal Conjunctiva NECK; supple, normal thyroid, RESPIRATORY: Diminished to auscultation CARDIOVASCULAR: Regular S1 S2, GI: soft, normoactive bowel sounds, : No Renal angle tenderness; EXTREMITIES: No edema, no clubbing, MUSCULOSKELETAL: no muscle wasting NEURO: Awake; no lateralizing signs. SKIN: No Rash PSYCH; Flat affect Assessment & Plan Assessment/Plan (1) Acute GI bleeding: (2) Anemia: (3) Nausea and vomiting: (4) Dehydration: (5) Pancytopenia: PLAN: Plan Patient is a 36-year-old female admitted with nausea vomiting and melena. Underwent EGD which found duodenal ulcerations as well as gastritis. Was also found to have elevated CPK levels managed as a case of myositis. 1.. Anemia from acute blood loss anemia from upper GI bleed ? Patient underwent EGD which found duodenal ulceration as well as gastritis managed with Protonix. Patient is also added on vitamin B12 and folic acid continued 2. Acute mastitis ? Patient was found to have elevated CPK levels. Aldolase ordered (send out). Patient started empirically on prednisone. Monitoring with daily CPK levels 3. Pancytopenia ? [place] to be secondary to autoimmune disease. As part of patient management ordered RENATE with reflex panel. Daily monitoring with CBC ordered 4. Essential hypertension ? Blood pressure controlled patient is on amlodipine continue 6. Seizure disorder ? Patient is on Keppra phenobarb and topiramate did continue 7. Cognitive impairment ? Etiology not clear monitoring 8. DVT prophylaxis ? Bilateral SCDs Time spent; 40-minute Charges/Coding Visit Charges Inpatient E&M: 02014 Subs Hosp L2
[2022-03-07] MEDS: levETIRAcetam 1,000 MG Tablet 1000 MG PO ×2 (10:25→21:58)
[2022-03-07 11:02] LABS: Pathologist Review Reviewed
[2022-03-07 11:14] LABS: CPK Total, Creatine Kinase 1287 U/L (26-192)
--- NOTE | 2022-03-07 12:02 | CASEMGMT ---
Social Work SW reviewed therapy notes for pt. It appears pt would benefit from PT at SNF. Per nursing pt cannot collaborate on own care at this time. SW attempted to call pt , Jose, who is listed in previous notes. When SW placed call there was no answer. A message regarding voicemail not being set up was received by this SW. PLAN: SNF vs. Home, pending collaboration with pt . SHAUN Vásquez
[2022-03-07 12:44] LABS: KEPPRA (LEVETIRACETAM) 29.1 ug/mL (10.0-40.0)
--- NOTE | 2022-03-07 13:25 | CASEMGMT ---
Social Work? SW received PC back from pt , Jose.SW introduced self and role at the hospital. SW explained following update from pt care team that pt will benefit from placement at nursing facility. Jose stated, I work multimedia producer, I would not be able to care for her to that level. Jose agreeable to discussing discharge planning. A list of SNF providers including quality and resource use data and consistent with the patient?s preferred geographic region, medical needs, and insurance network from the [facility] Guide was read to Jose while on the phone. Jose stated wants a facility in [place], but has no preference other than that. Jose asked ZORAIDA to send referral to [facility], [place] and [place]. SW sent referral to these three places. PLAN: SNF, pending acceptance and precert ? SHAUN Vásquez?
[2022-03-07 14:13] VITALS: BP 148/90; PULSE 79; RESP 18; TEMP 36.6; O2SAT 99
--- NOTE | 2022-03-07 17:07 | PN_ITS ---
Subjective Subjective Patient is about the same. She is tolerating a diet. Objective Data Objective Data Vital Signs: Vital Signs Temp Pulse Resp BP Pulse Ox O2 Del Method 97.8 F 79 18 148/90 H 99 Room Air 03/07/22 14:13 03/07/22 14:13 03/07/22 14:13 03/07/22 14:13 03/07/22 14:13 03/07/22 14:13 Oxygen Delivery Method Room Air Weight: 195 lb Body Mass Index (BMI) 30.5 Intake & Output: Intake and Output for Last 24 Hours 03/05/22 03/06/22 03/07/22 23:59 23:59 23:59 Intake Total 2468.87 / 2468.87 1220 / 1220 2002. / 2002. Output Total 400 / 400 1500 / 1500 650 / 650 Balance 2068.87 / 2068.87 -280 / -280 1353.67 / 1353.67 Lab / Micro Data Result Diagrams: 03/07/22 04:07 03/07/22 04:07 Labs: Laboratory Results - last 24 hr 03/03/22 04:05: Levetiracetam 29.1 03/04/22 05:06: Diff Path Review Reviewed 03/05/22 10:25: Aldolase Cancelled 03/07/22 04:07: WBC 1.2 L*, RBC 2.90 L, Hgb 9.6 L, Hct 28.5 L, MCV 98.3, MCH 33.1 H, MCHC 33.7, RDW Std Deviation 44.4 H, RDW Coeff of [place] 12.4, Plt Count 120 L, MPV 10.6, Immature Gran % (Auto) 0.800, Neut % (Auto) 72.8 H, Lymph % (A uto) 23.1, [place] % (Auto) 3.3, Eos % (Auto) 0.0, Baso % (Auto) 0.0, Absolute Neuts (auto) 0.9 L, Absolute Lymphs (auto) 0.28 L, Nucleated RBC % 4.1, Differ ential Comment SCANNED, Diff Path Review June03/07/22 04:07: Sodium 133 L, Potassium 3.5, Chloride 102, Carbon Dioxide 21.0, Anion Gap 10, BUN 8, Creatinine 0.40 L, Estim Creat Clear Calc 187.26, Est GFR (MDRD) Af Amer 228, Est GFR (MDRD) Non-Af 188, BUN/Creatinine Ratio 19.8, Glucose 108 H, Calcium 8.1 L, Total Bilirubin 0.60, AST 420 H, ALT 115 H, Alkaline Phosphatase 54, Total Protein 5.6 L, Albumin 2.5 L, Globulin 3.1, Albumin/Globulin Ratio 0.8 L 03/07/22 04:07: Total Creatine Kinase 1287 H Micro: Microbiology 03/02/22 21:00 Nasal Secretion SARS-CoV-2 Antigen (Rapid) - Final Physical Exam Narrative GENERAL: In no apparent distress but refuses to answer questions HEENT: Atraumatic; normocephalic EYES; Anicteric, Normal Conjunctiva NECK; supple, normal thyroid, RESPIRATORY: Diminished to auscultation CARDIOVASCULAR: Regular S1 S2, GI: soft, normoactive bowel sounds, : No Renal angle tenderness; EXTREMITIES: No edema, no clubbing, MUSCULOSKELETAL: no muscle wasting NEURO: Awake; no lateralizing signs. SKIN: No Rash PSYCH; Flat affect Assessment & Plan Assessment/Plan (1) Acute GI bleeding: PLAN: She is status post upper endoscopy with treatment of angiodysplastic lesions and a peptic ulcer. Biopsies are pending and H. pylori testing is pending. Her hemoglobin seems to be stable at this time however her platelet count and white blood cell count are low. Pancytopenia from unknown cause at this time. (2) Transaminitis: PLAN: Her increased AST and ALT are likely from muscle enzymes. She got a CPK checked which was elevated. The differential diagnosis does include an autoimmune myopathy such as dermatomyositis or polymyositis. Work-up in progress. She is on steroid therapy and aldolase is pending. Continue to monitor AST and ALT along with bilirubin and alkaline phosphatase. Charges/Coding Visit Charges Inpatient E&M: 66151 Subs Hosp L3
[2022-03-07 21:40] VITALS: BP 138/107; PULSE 84; RESP 15; TEMP 36.6; O2SAT 100
[2022-03-08 04:40] VITALS: BP 149/106; PULSE 79; RESP 15; TEMP 36.4; O2SAT 97
[2022-03-08] MEDS: Menthol/Lanolin/Calamine/Znox 113 GM Tube 1 APPLIC TOPICAL ×3 (05:40→21:15)
[2022-03-08] MEDS: Lactated Ringers 1,000 ML 70 ML IV ×2 (05:40→21:13)
[2022-03-08] MEDS: Sucralfate 1 GM Tablet PO ×3 (05:41→14:01)
[2022-03-08 06:53] LABS: Absolute Lymphocyte Count 0.42 X10^3/uL (0.83-4.51); Absolute Neutrophil Count 1.3 X10^3/uL (2.0-7.7); Basophil# 0.01 X10^3/uL; Basophil% 0.5 % (0-1); Hematocrit 27.9 % (37-47); Hemoglobin 9.4 g/dL (12.0-15.0); Lymphocyte # 0.42 X10^3/ul (0.83-4.51); Lymphocyte % 20.5 % (19-41); Mean Corp Hgb Conc 33.7 g/dL (32-36); Mean Corpuscular Hgb 32.9 pg (27.0-32.0); Mean Corpuscular Volume 97.6 fL (81-99); Mean Platelet Vol. 10.8 fl (6.2-12.0); Monocyte# 0.32 X10^3/uL; Monocyte% 15.6 % (0-10); NRBC Flagged by Analyzer 2.4 % (0-5); Neutrophil # 1.27 X10^3/uL (2.7-7.7); Neutrophil % 61.9 % (47-70); POSITIVE DIFFERENTIAL YES; Platelet Count 128 K/mm3 (150-450); RBC Distribution Width CV 12.5 % (11.6-14.6); RBC Distribution Width SD 44.7 fl (35.1-43.9); Red Blood Count 2.86 M/mm3 (4.2-5.4); White Blood Count 2.1 K/mm3 (4.4-11.0)
[2022-03-08 06:54] LABS: Differential Indicated SCAN CRITERIA MET
[2022-03-08 07:25] LABS: AST(SGOT) 271 U/L (15-37); Alanine Aminotransfer ALT/SGPT 130 U/L (13-56); Albumin, Serum 2.5 g/dL (3.2-5.0); Alkaline Phosphatase 52 U/L (45-117); Anion Gap 6 (5-15); BUN 10 mg/dL (7-18); BUN/Creat Ratio 21.4 RATIO (10-20); Bilirubin, Direct 0.15 mg/dL (0.00-0.30); Calcium,Total 8.3 mg/dL (8.5-10.1); Chloride 104 mmol/L (98-107); Creatinine, Serum 0.47 mg/dL (0.55-1.02); EST Glomerular Filtration Rate 159 mL/min (>60); Est Glom Filt Rate - Afr Amer 192 mL/min (>60); Estimated Creatinine Clearance 159.37 ml/min; Globulin 2.6 g/dL (2.2-4.2); Glucose 110 mg/dL (74-106); Magnesium 1.8 mg/dL (1.6-2.6); Phosphorus 2.8 mg/dL (2.5-4.9); Potassium 3.5 mmol/L (3.5-5.1); Protein, Total 5.1 g/dL (6.4-8.2); Sodium Level 135 mmol/L (136-145)
[2022-03-08 07:30] LABS: CPK Total, Creatine Kinase 471 U/L (26-192)
[2022-03-08 07:54] LABS: Differential Comment SCANNED
--- NOTE | 2022-03-08 08:02 | CASEMGMT ---
Addendum entered by Sheba Espinoza 03/08/22 09:03: , Jose, called back. SW informed of acceptance to [facility]. Jose voiced understanding, confirmed his approval for this facility. SW explained insurance auth waiting period. Jose voiced understanding for this as well. SW informed Jose his VM has not been set up. Jose informed new phone and had not had a chance to complete that task. SHAUN Vásquez Addendum entered by Sheba Espinoza 03/08/22 08:04: ZORAIDA attempted to call pt , Jose, to inform of acceptance at [facility]. No answer, no ability to leave VM as it has not been set up. ZORAIDA will attempt to call back later. SHAUN Vásquez Original Note: Social Work SW received message from [place] at [facility]. [facility] can accept pt. Ting to begin precert today. PLAN: [facility], pending precert SHAUN Vásquez
--- NOTE | 2022-03-08 08:29 | PN.HOSP_ITS ---
Subjective Subjective Follow-up anemia Patient seen no change in clinical condition. Aldolase level as well as RENATE with reflex panel pending. Objective Data Objective Data Vital Signs: Vital Signs Temp Pulse Resp BP Pulse Ox O2 Del Method 97.5 F L 79 15 149/106 H 97 Room Air 03/08/22 04:40 03/08/22 04:40 03/08/22 04:40 03/08/22 04:40 03/08/22 04:40 03/08/22 04:40 Oxygen Delivery Method Room Air Weight: 88.451 kg Body Mass Index (BMI) 30.5 Intake & Output: Intake and Output for Last 24 Hours 03/06/22 03/07/22 03/08/22 23:59 23:59 23:59 Intake Total 1220 / 1220 2113.67 / 2353.67 1430.83 / 1430.83 Output Total 1500 / 1500 1350 / 2150 1500 / 1500 Balance -280 / -280 763.67 / 203.67 -69.17 / -69.17 Lab / Micro Data Result Diagrams: 03/08/22 06:35 03/08/22 06:35 Labs: Laboratory Results - last 24 hr 03/03/22 04:05: Levetiracetam 29.1 03/04/22 05:06: Diff Path Review Reviewed 03/05/22 10:25: Aldolase Cancelled 03/07/22 04:07: Total Creatine Kinase 1287 H 03/08/22 06:35: WBC 2.1 L, RBC 2.86 L, Hgb 9.4 L, Hct 27.9 L, MCV 97.6, MCH 32.9 H, MCHC 33.7, RDW Std Deviation 44.7 H, RDW Coeff of [place] 12.5, Plt Count 128 L, MPV 10.8, Immature Gran % (Auto) 1.500 H, Neut % (Auto) 61.9, Lymph % (Auto) 20.5, [place] % (Auto) 15.6 H, Eos % (Auto) 0.0, Baso % (Auto) 0.5, Absolute Neuts (auto) 1.3 L, Absolute Lymphs (auto) 0.42 L, Nucleated RBC % 2.4, Differential Comment SCANNED 03/08/22 06:35: Sodium 135 L, Potassium 3.5, Chloride 104, Carbon Dioxide 25.0, Anion Gap 6, BUN 10, Creatinine 0.47 L, Estim Creat Clear Calc 159.37, Est GFR (MDRD) Af Amer 192, Est GFR (MDRD) Non-Af 159, BUN/Creatinine Ratio 21.4 H, Glucose 110 H, Calcium 8.3 L, Phosphorus 2.8, Magnesium 1.8, Total Bilirubin 0.40, Direct Bilirubin 0.15, AST 271 H, ALT 130 H, Alkaline Phosphatase 52, Total Protein 5.1 L, Albumin 2.5 L, Globulin 2.6 03/08/22 06:35: Total Creatine Kinase 471 H Micro: Microbiology 03/02/22 21:00 Nasal Secretion SARS-CoV-2 Antigen (Rapid) - Final Physical Exam Narrative GENERAL: In no apparent distress but refuses to answer questions HEENT: Atraumatic; normocephalic EYES; Anicteric, Normal Conjunctiva NECK; supple, normal thyroid, RESPIRATORY: Diminished to auscultation CARDIOVASCULAR: Regular S1 S2, GI: soft, normoactive bowel sounds, : No Renal angle tenderness; EXTREMITIES: No edema, no clubbing, MUSCULOSKELETAL: no muscle wasting NEURO: Awake; no lateralizing signs. SKIN: No Rash PSYCH; Flat affect Assessment & Plan Assessment/Plan (1) Acute GI bleeding: (2) Anemia: (3) Nausea and vomiting: (4) Dehydration: (5) Pancytopenia: PLAN: Plan Patient is a 36-year-old female admitted with nausea vomiting and melena. U nderwent EGD which found duodenal ulcerations as well as gastritis. Was also found to have elevated CPK levels managed as a case of myositis. 1.. Anemia from acute blood loss anemia from upper GI bleed ? Patient underwent EGD which found duodenal ulceration as well as gastritis managed with Protonix. Patient is also added on vitamin B12 and folic acid continued ? 03/08/2022; patient hemoglobin fairly stable. Pathology from patient EGD reviewed consistent with chronic gastritis. Patient is on PPI did continue 2. Acute myositis ? Patient was found to have elevated CPK levels. Aldolase ordered (send out). Patient started empirically on prednisone. Monitoring with daily CPK levels ? 03/08/2022 aldolase level as well as RENATE with reflex panel pending. 3. Pancytopenia ? [place] to be secondary to autoimmune disease. As part of patient management ordered RENATE with reflex panel. Daily monitoring with CBC ordered 4. Essential hypertension ? Blood pressure controlled patient is on amlodipine continue 6. Seizure disorder ? Patient is on Keppra phenobarb and topiramate did continue 7. Cognitive impairment ? Etiology not clear monitoring 8. DVT prophylaxis ? Bilateral SCDs 9. Physical deconditioning - Requested for PT OT eval and child protective services social worker to assist with discharge planning Time spent; 38 -minute Charges/Coding Visit Charges Inpatient E&M: 75772 Subs Hosp L2
[2022-03-08 09:00] VITALS: PULSE 80
[2022-03-08] MEDS: Ferrous Sulfate 325 MG Tablet PO (09:55)
[2022-03-08] MEDS: Cyanocobalamin 500 MCG Tablet 1000 MCG PO (09:55)
[2022-03-08] MEDS: Folic Acid 1 MG Tablet PO (09:55)
[2022-03-08] MEDS: levETIRAcetam 1,000 MG Tablet 1000 MG PO ×2 (09:56→21:15)
[2022-03-08] MEDS: amLODIPine 5 MG Tablet PO (09:56)
[2022-03-08] MEDS: Phenobarbital 32.4 MG Tablet 64.8 MG PO ×2 (10:00→21:16)
[2022-03-08] MEDS: Topiramate 100 MG Tablet PO ×2 (10:00→21:16)
[2022-03-08] MEDS: Gabapentin 300 MG Capsule PO ×2 (10:00→21:15)
[2022-03-08 10:40] VITALS: BP 157/94; PULSE 80; RESP 18; TEMP 36.6; O2SAT 100
[2022-03-08 12:24] LABS: Pathologist Review Reviewed
[2022-03-08 12:25] LABS: Pathologist Review Reviewed
[2022-03-08 12:25] LABS: Pathologist Review Reviewed
--- NOTE | 2022-03-08 13:08 | CASEMGMT ---
Social work SW sent updated PT note to [facility]. SHAUN Vásquez
[2022-03-08 14:39] VITALS: BP 141/90; PULSE 84; RESP 18; TEMP 36.7; O2SAT 100
[2022-03-08 14:42] VITALS: PULSE 80
[2022-03-08 15:27] LABS: Pathologist Review Reviewed
--- NOTE | 2022-03-08 16:53 | PCM.PROGNOTE ---
Subjective Subjective Patient is about the same without any change in disposition. She denies any abdominal pain and is tolerating a diet. She has no signs or symptoms of recurrent GI bleeding. Objective Data Objective Data Vital Signs: Vital Signs Temp Pulse Resp BP Pulse Ox O2 Del Method 98.0 F 80 18 141/90 H 100 Room Air 03/08/22 14:39 03/08/22 14:42 03/08/22 14:39 03/08/22 14:39 03/08/22 14:39 03/08/22 14:39 Oxygen Delivery Method Room Air Weight: 195 lb Body Mass Index (BMI) 30.5 Intake & Output: Intake and Output for Last 24 Hours 03/06/22 03/07/22 03/08/22 23:59 23:59 23:59 Intake Total 1220 / 1220 2113.67 / 2353.67 1540.83 / 1540.83 Output Total 1500 / 1500 1350 / 2150 1500 / 1500 Balance -280 / -280 763.67 / 203.67 40.83 / 40.83 Lab / Micro Data Result Diagrams: 03/08/22 06:35 03/08/22 06:35 Labs: Laboratory Results - last 24 hr 03/05/22 06:30: Diff Path Review Reviewed 03/06/22 07:05: Diff Path Review Reviewed 03/07/22 04:07: Diff Path Review Reviewed 03/08/22 06:35: WBC 2.1 L, RBC 2.86 L, Hgb 9.4 L, Hct 27.9 L, MCV 97.6, MCH 32.9 H, MCHC 33.7, RDW Std Deviation 44.7 H, RDW Coeff of [place] 12.5, Plt Count 128 L, MPV 10.8, Immature Gran % (Auto) 1.500 H, Neut % (Auto) 61.9, Lymph % (Auto) 20.5, [place] % (Auto) 15.6 H, Eos % (Auto) 0.0, Baso % (Auto) 0.5, Absolute Neuts (auto) 1.3 L, Absolute Lymphs (auto) 0.42 L, Nucleated RBC % 2.4, Differential Comment SCANNED, Diff Path Review Reviewed 03/08/22 06:35: Sodium 135 L, Potassium 3.5, Chloride 104, Carbon Dioxide 25.0, Anion Gap 6, BUN 10, Creatinine 0.47 L, Estim Creat Clear Calc 159.37, Est GFR (MDRD) Af Amer 192, Est GFR (MDRD) Non-Af 159, BUN/Creatinine Ratio 21.4 H, Glucose 110 H, Calcium 8.3 L, Phosphorus 2.8, Magnesium 1.8, Total Bilirubin 0.40, Direct Bilirubin 0.15, AST 271 H, ALT 130 H, Alkaline Phosphatase 52, Total Protein 5.1 L, Albumin 2.5 L, Globulin 2.6 03/08/22 06:35: Total Creatine Kinase 471 H Micro: Microbiology 03/02/22 21:00 Nasal Secretion SARS-CoV-2 Antigen (Rapid) - Final Physical Exam Narrative GENERAL: In no apparent distress but refuses to answer questions HEENT: Atraumatic; normocephalic EYES; Anicteric, Normal Conjunctiva NECK; supple, normal thyroid, RESPIRATORY: Diminished to auscultation CARDIOVASCULAR: Regular S1 S2, GI: soft, normoactive bowel sounds, : No Renal angle tenderness; EXTREMITIES: No edema, no clubbing, MUSCULOSKELETAL: no muscle wasting NEURO: Awake; no lateralizing signs. SKIN: No Rash PSYCH; Flat affect Assessment & Plan Assessment/Plan (1) Acute GI bleeding: PLAN: She is status post upper endoscopy with treatment of angiodysplastic lesions and a peptic ulcer. Biopsies are pending and H. pylori testing is pending. Her hemoglobin seems to be stable at this time however her platelet count and white blood cell count are low. Pancytopenia from unknown cause at this time. (2) Transaminitis: PLAN: Her increased AST and ALT are likely from muscle enzymes. She got a CPK checked which was elevated. The differential diagnosis does include an autoimmune myopathy such as dermatomyositis or polymyositis. Work-up in progress. She is on steroid therapy and aldolase is pending. Continue to monitor AST and ALT along with bilirubin and alkaline phosphatase. (3) Gastritis: PLAN: Biopsies are pending for age pylori. Hemoglobin seems to be stable from a GI standpoint at this time. Charges/Coding Visit Charges Inpatient E&M: 26995 Subs Hosp L3
[2022-03-08 21:30] VITALS: BP 142/87; PULSE 80; RESP 17; TEMP 36.7; O2SAT 99
[2022-03-09 03:30] VITALS: BP 151/109; PULSE 78; RESP 15; TEMP 36.7; O2SAT 96
[2022-03-09] MEDS: Menthol/Lanolin/Calamine/Znox 113 GM Tube 1 APPLIC TOPICAL ×3 (05:40→22:01)
[2022-03-09] MEDS: Sucralfate 1 GM Tablet PO ×3 (05:40→17:31)
[2022-03-09 05:51] LABS: Hematocrit 28.7 % (37-47); Hemoglobin 9.5 g/dL (12.0-15.0); Mean Corp Hgb Conc 33.1 g/dL (32-36); Mean Corpuscular Hgb 32.3 pg (27.0-32.0); Mean Corpuscular Volume 97.6 fL (81-99); Mean Platelet Vol. 10.7 fl (6.2-12.0); POSITIVE COUNT YES; POSITIVE DIFFERENTIAL YES; POSITIVE MORPHOLOGY YES; Platelet Count 113 K/mm3 (150-450); RBC Distribution Width CV 12.5 % (11.6-14.6); RBC Distribution Width SD 44.4 fl (35.1-43.9); Red Blood Count 2.94 M/mm3 (4.2-5.4); White Blood Count 2.2 K/mm3 (4.4-11.0)
[2022-03-09 05:53] LABS: Differential Indicated MANUAL DIFF
[2022-03-09 06:07] LABS: AST(SGOT) 265 U/L (15-37); Alanine Aminotransfer ALT/SGPT 149 U/L (13-56); Albumin, Serum 2.6 g/dL (3.2-5.0); Alkaline Phosphatase 53 U/L (45-117); Anion Gap 5 (5-15); BUN 9 mg/dL (7-18); BUN/Creat Ratio 19.6 RATIO (10-20); Bilirubin, Direct 0.21 mg/dL (0.00-0.30); Calcium,Total 7.8 mg/dL (8.5-10.1); Chloride 105 mmol/L (98-107); Creatinine, Serum 0.46 mg/dL (0.55-1.02); EST Glomerular Filtration Rate 162 mL/min (>60); Est Glom Filt Rate - Afr Amer 196 mL/min (>60); Estimated Creatinine Clearance 162.83 ml/min; Globulin 2.8 g/dL (2.2-4.2); Glucose 99 mg/dL (74-106); Potassium 3.6 mmol/L (3.5-5.1); Protein, Total 5.4 g/dL (6.4-8.2); Sodium Level 137 mmol/L (136-145)
[2022-03-09 06:50] LABS: Platelet Estimate SLT DEC (ADEQ)
[2022-03-09 06:54] LABS: Absolute Neutrophil Count 1.1 X10^3/uL (2.0-7.7)
[2022-03-09 06:55] LABS: Absolute Lymphocyte Count 0.67 X10^3/uL (0.83-4.51); Atypical Lymphocyte 2+ %; Lymphocyte 30 % (19-41); Metamyelocyte 2 % (0-1); Monocyte 9 % (0-10); Myelocyte 2 % (0-0); Neutrophil-Band 7 % (0-5); Neutrophil-Segmented 50 % (47-70); Total Cells Counted 100 (MANUAL DIFF)
[2022-03-09 06:58] LABS: Red Cell Morphology NORM C+C NORMAL (NORM C&C)
--- NOTE | 2022-03-09 07:00 | PN_ITS ---
Subjective Subjective Patient is about the same without any change in disposition.? She denies any abdominal pain and is tolerating a diet.? She has no signs or symptoms of recurrent GI bleeding. Objective Data Objective Data Vital Signs: Vital Signs Temp Pulse Resp BP Pulse Ox O2 Del Method 98.2 F 78 15 140/90 H 99 Room Air 03/09/22 09:30 03/09/22 09:30 03/09/22 09:30 03/09/22 09:30 03/09/22 09:41 03/09/22 15:00 Oxygen Delivery Method Room Air Weight: 195 lb Body Mass Index (BMI) 30.5 Intake & Output: Intake and Output for Last 24 Hours 03/07/22 03/08/22 03/09/22 23:59 23:59 23:59 Intake Total 2113.67 / 2353.67 2650.83 / 2850.83 1310 / 1310 Output Total 1350 / 2150 1500 / 2050 950 / 950 Balance 763.67 / 203.67 1150.83 / 800.83 360 / 360 Lab / Micro Data Result Diagrams: 03/09/22 05:35 03/09/22 05:35 Labs: Laboratory Results - last 24 hr 03/08/22 06:35: RENATE Screen Negative, CRISTIAN-1 Antibody Not Reportable, SS-A/Ro IgG Antibody Not Reportable, SS-B/La IgG Antibody Not Reportable, Sm (Richard) Antibody Not Reportable, [employer] Antibody Not Reportable, Scl-70 Scleroderma Ab Not Reportable, Double Strand DNA Ab Not Reportable, Centromere B Antibody Not Reportable 03/08/22 06:35: Aldolase 14.9 H 03/09/22 05:35: WBC 2.2 L, RBC 2.94 L, Hgb 9.5 L, Hct 28.7 L, MCV 97.6, MCH 32.3 H, MCHC 33.1, RDW Std Deviation 44.4 H, RDW Coeff of Enedina 12.5, Plt Count 113 L, MPV 10.7, Neut % (Auto) Not Reportable, Absolute Neuts (auto) 1.1 L, Absolute Lymphs (auto) 0.67 L, Total Counted 100, Neutrophils % (Manual) 50, Band Neutrophils % 7 H, Lymphocytes % (Manual) 30, Monocytes % (Manual) 9, Metamyelocytes % 2 H, Myelocytes % 2 H, Diff Path Review May foll, Atypical Lymphocytes 2+, Platelet Estimate SLT DEC, RBC Morphology NORM C+C 03/09/22 05:35: Sodium 137, Potassium 3.6, Chloride 105, Carbon Dioxide 27.0, Anion Gap 5, BUN 9, Creatinine 0.46 L, Estim Creat Clear Calc 162.83, Est GFR (MDRD) Af Amer 196, Est GFR (MDRD) Non-Af 162, BUN/Creatinine Ratio 19.6, Glucose 99, Calcium 7.8 L, Total Bilirubin 0.50, Direct Bilirubin 0.21, AST 265 H, ALT 149 H, Alkaline Phosphatase 53, Total Protein 5.4 L, Albumin 2.6 L, Globulin 2.8 Micro: Microbiology 03/02/22 21:00 Nasal Secretion SARS-CoV-2 Antigen (Rapid) - Final Physical Exam Narrative GENERAL: In no apparent distress but refuses to answer questions HEENT: Atraumatic; normocephalic EYES; Anicteric, Normal Conjunctiva NECK; supple, normal thyroid, RESPIRATORY: Diminished to auscultation CARDIOVASCULAR: Regular S1 S2, GI: soft, normoactive bowel sounds, : No Renal angle tenderness; EXTREMITIES: No edema, no clubbing, MUSCULOSKELETAL: no muscle wasting NEURO: Awake; no lateralizing signs. SKIN: No Rash PSYCH; Flat affect Assessment & Plan Assessment/Plan (1) Gastritis: PLAN: Biopsies are pending for age pylori. Hemoglobin seems to be stable from a GI standpoint at this time. (2) Transaminitis: PLAN: Her increased AST and ALT are likely from muscle enzymes. She got a CPK checked which was elevated. The differential diagnosis does include an autoimmune myopathy such as dermatomyositis or polymyositis. Work-up in progress. She is on steroid therapy and aldolase is pending. Continue to monitor AST and ALT along with bilirubin and alkaline phosphatase. (3) Pancytopenia: (4) Acute GI bleeding: PLAN: She is status post upper endoscopy with treatment of angiodysplastic lesio ns and a peptic ulcer. Biopsies are pending and H. pylori testing is pending. Her hemoglobin seems to be stable at this time however her platelet count and white blood cell count are low. Pancytopenia from unknown cause at this time. Charges/Coding Visit Charges Inpatient E&M: 44076 Subs Hosp L3
--- NOTE | 2022-03-09 08:50 | PN.HOSP_ITS ---
Subjective Subjective Follow-up myositis Patient seen no change in condition. Her CPK levels trending down. Aldolase levels as well as RENATE with reflex panel results still pending Objective Data Objective Data Vital Signs: Vital Signs Temp Pulse Resp BP Pulse Ox O2 Del Method 98.1 F 78 15 151/109 H 96 Room Air 03/09/22 03:30 03/09/22 03:30 03/09/22 03:30 03/09/22 03:30 03/09/22 03:30 03/09/22 03:30 Oxygen Delivery Method Room Air Weight: 88.451 kg Body Mass Index (BMI) 30.5 Intake & Output: Intake and Output for Last 24 Hours 03/07/22 03/08/22 03/09/22 23:59 23:59 23:59 Intake Total 2113.67 / 2353.67 2650.83 / 2850.83 200 / 200 Output Total 1350 / 2150 1500 / 2050 550 / 550 Balance 763.67 / 203.67 1150.83 / 800.83 -350 / -350 Lab / Micro Data Result Diagrams: 03/09/22 05:35 03/09/22 05:35 Labs: Laboratory Results - last 24 hr 03/05/22 06:30: Diff Path Review Reviewed 03/06/22 07:05: Diff Path Review Reviewed 03/07/22 04:07: Diff Path Review Reviewed 03/08/22 06:35: Diff Path Review Reviewed 03/09/22 05:35: WBC 2.2 L, RBC 2.94 L, Hgb 9.5 L, Hct 28.7 L, MCV 97.6, MCH 32.3 H, MCHC 33.1, RDW Std Deviation 44.4 H, RDW Coeff of Enedina 12.5, Plt Count 113 L, MPV 10.7, Neut % (Auto) Not Reportable, Absolute Neuts (auto) 1.1 L, Absolute Lymphs (auto) 0.67 L, Total Counted 100, Neutrophils % (Manual) 50, Band Neut rophils % 7 H, Lymphocytes % (Manual) 30, Monocytes % (Manual) 9, Metamyelocytes % 2 H, Myelocytes % 2 H, Diff Path Review May foll, Atypical Lymphocytes 2+, Platelet Estimate SLT DEC, RBC Morphology NORM C+C 01/11/23 05:35: Sodium 137, Potassium 3.6, Chloride 105, Carbon Dioxide 27.0, Anion Gap 5, BUN 9, Creatinine 0.46 L, Estim Creat Clear Calc 162.83, Est GFR (MDRD) Af Amer 196, Est GFR (MDRD) Non-Af 162, BUN/Creatinine Ratio 19.6, Glucose 99, Calcium 7.8 L, Total Bilirubin 0.50, Direct Bilirubin 0.21, AST 265 H, ALT 149 H, Alkaline Phosphatase 53, Total Protein 5.4 L, Albumin 2.6 L, Globulin 2.8 Micro: Microbiology 03/02/22 21:00 Nasal Secretion SARS-CoV-2 Antigen (Rapid) - Final Physical Exam Narrative GENERAL: In no apparent distress but refuses to answer questions HEENT: Atraumatic; normocephalic EYES; Anicteric, Normal Conjunctiva NECK; supple, normal thyroid, RESPIRATORY: Diminished to auscultation CARDIOVASCULAR: Regular S1 S2, GI: soft, normoactive bowel sounds, : No Renal angle tenderness; EXTREMITIES: No edema, no clubbing, MUSCULOSKELETAL: no muscle wasting NEURO: Awake; no lateralizing signs. SKIN: No Rash PSYCH; Flat affect Assessment & Plan Assessment/Plan (1) Acute GI bleeding: (2) Anemia: (3) Nausea and vomiting: (4) Dehydration: (5) Pancytopenia: PLAN: Plan Patient is a 36-year-old female admitted with nausea vomiting and melena. Underwent EGD which found duodenal ulcerations as well as gastritis. Was also found to have elevated CPK levels managed as a case of myositis. 1.. Anemia from acute blood loss anemia from upper GI bleed ? Patient underwent EGD which found duodenal ulceration as well as gastritis managed with Protonix. Patient is also added on vitamin B12 and folic acid continued ? 03/08/2022; patient hemoglobin fairly stable. Pathology from patient EGD reviewed consistent with chronic gastritis. Patient is on PPI did continue 2. Acute myositis ? Patient was found to have elevated CPK levels. Aldolase ordered (send out). Patient started empirically on prednisone. Monitoring with daily CPK levels ? 03/08/2022 aldolase level as well as RENATE with reflex panel pending. - Patient seen no change in condition. Her CPK levels trending down. Aldolase levels as well as RENATE with reflex panel results still pe 3. Pancytopenia ? [place] to be secondary to autoimmune disease. As part of patient management ordered RENATE with reflex panel. Daily monitoring with CBC ordered 4. Essential hypertension ? Blood pressure controlled patient is on amlodipine continue 6. Seizure disorder ? Patient is on Keppra phenobarb and topiramate did continue 7. Cognitive impairment ? Etiology not clear monitoring 8. DVT prophylaxis ? Bilateral SCDs 9. Physical deconditioning - Requested for PT OT eval and family welfare social work professor to assist with discharge planning Time spent; 38 -minute Charges/Coding Visit Charges Inpatient E&M: 76035 Subs Hosp L2
[2022-03-09] MEDS: Folic Acid 1 MG Tablet PO (08:57)
[2022-03-09] MEDS: amLODIPine 5 MG Tablet PO (08:57)
[2022-03-09] MEDS: Cyanocobalamin 500 MCG Tablet 1000 MCG PO (08:57)
[2022-03-09] MEDS: levETIRAcetam 1,000 MG Tablet 1000 MG PO ×2 (08:57→22:01)
[2022-03-09] MEDS: Ferrous Sulfate 325 MG Tablet PO (08:57)
[2022-03-09] MEDS: Topiramate 100 MG Tablet PO ×2 (08:58→22:01)
[2022-03-09] MEDS: Gabapentin 300 MG Capsule PO ×2 (09:03→22:01)
[2022-03-09] MEDS: Phenobarbital 32.4 MG Tablet 64.8 MG PO ×2 (09:03→22:01)
[2022-03-09 09:30] VITALS: BP 140/90; PULSE 78; RESP 15; TEMP 36.8; O2SAT 98
[2022-03-09 09:41] VITALS: O2SAT 99
[2022-03-09] MEDS: Lactated Ringers 1,000 ML 70 ML IV (12:08)
--- NOTE | 2022-03-09 14:26 | TREXTCAR_ITS ---
Diet Diet Order/Speech Therapy: 03/03/22 11:54 Diet: Full Liquid Type of Dietary Supplement:: Ensure Plus High Protein Is pt able to select menu?: Yes Wound(s) right forearm: Wound Type: Abrasion Therapies Physical Therapy: Eval and Treat Occupational Therapy: Eval and Treat Problem/Diagnosis (1) Acute GI bleeding: Status: Acute Code(s): K92.2 - Gastrointestinal hemorrhage, unspecified (2) Anemia: Status: Acute Code(s): D64.9 - Anemia, unspecified (3) Nausea and vomiting: Status: Acute Code(s): R11.2 - Nausea with vomiting, unspecified (4) Dehydration: Status: Acute Code(s): E86.0 - Dehydration (5) Pancytopenia: Status: Acute Code(s): D61.818 - Other pancytopenia Plan Patient is a 36-year-old female admitted with nausea vomiting and melena. Underwent EGD which found duodenal ulcerations as well as gastritis. Was also found to have elevated CPK levels managed as a case of myositis. 1.. Anemia from acute blood loss anemia from upper GI bleed ? Patient underwent EGD which found duodenal ulceration as well as gastritis managed with Protonix. Patient is also added on vitamin B12 and folic acid continued ? 03/08/2022; patient hemoglobin fairly stable. Pathology from patient EGD reviewed consistent with chronic gastritis. Patient is on PPI did continue 2. Acute myositis ? Patient was found to have elevated CPK levels. Aldolase ordered (send out). Patient started empirically on prednisone. Monitoring with daily CPK levels ? 03/08/2022 aldolase level as well as RENATE with reflex panel pending. - Patient seen no change in condition. Her CPK levels trending down. Aldolase levels as well as RENATE with reflex panel results still pe 3. Pancytopenia ? [place] to be secondary to autoimmune disease. As part of patient management ordered RENATE with reflex panel. Daily monitoring with CBC ordered 4. Essential hypertension ? Blood pressure controlled patient is on amlodipine continue 6. Seizure disorder ? Patient is on Keppra phenobarb and topiramate did continue 7. Cognitive impairment ? Etiology not clear monitoring 8. DVT prophylaxis ? Bilateral SCDs 9. Physical deconditioning - Requested for PT OT eval and psychotherapist social worker to assist with discharge planning Time spent; 38 -minute Allergies/Procedures Done in Hospital Allergies fluconazole Allergy (Verified 03/02/22 08:52) NEEDS FOLLOW-UP naproxen Allergy (Verified 03/02/22 08:52) Hives Type of Care/Length of Stay Estimated LOS: Convalescent Care Less Than 30 days Type of Care Needed: Skilled Rehab Potential: Good Prognosis: Good Additional Orders/Day of Discharge Day of Discharge: 03/09/22 Dietary and Speech Recommendations Dietitian Recommendations/Changes: ADAT to Regular to optimize oral intakes. Continue 120mL EPHP TID with medpass to promote weight stabilization. Discharge Plan Admission Admit Date/Time: 03/02/22 17:16 Attending Provider: Yonas Benson Primary Care Provider: Himanshu Sanchez Consulting Providers: Awa Massey ; Franky Hatch Discharge Orders/Prescriptions Prescriptions: New sucralfate 1 gram Tablet 1 g PO 0700,1100,1600 Qty: 0 0RF sennosides-docusate sodium [Stool Softener-Stimulant Laxat] 8.6-50 mg Tablet 2 tab PO BID PRN PRN (Reason: Constipation) Qty: 0 0RF menthol-zinc oxide [Calmoseptine] 0.44-20.6 % Ointment 1 applic topical TID Qty: 0 0RF Protocol: *Topical Application Instructions APPLICATION INSTRUCTIONS: buttocks cyanocobalamin (vitamin B-12) 500 mcg Tablet 1,000 mcg PO BREAKFAST Qty: 0 0RF folic acid 1 mg Tablet 1 mg PO BREAKFAST Qty: 0 0RF acetaminophen [Tylenol] 325 mg Tablet 650 mg PO Q6H PRN PRN (Reason: Pain 1-10 Or Fever>100.7) Qty: 0 0RF prednisone 5 mg tablet 5 mg PO UD Qty: 240 0RF Rx Instructions: 40 mg p.o. daily x1 week then 35 mg p.o. daily x1 week then 30 mg p.o. daily x1 week then 30 mg p.o. daily x1 week then 25 mg p.o. daily x1 week then 20 mg p.o. daily x1 week then 15 mg p.o. daily x1 week then 10 mg p.o. daily x1 week then 5 mg daily pantoprazole [Protonix] 40 mg tablet,delayed release (DR/EC) 40 mg PO DAILY Qty: 1 0RF Continued ferrous sulfate 325 MG tablet 325 mg PO DAILY@0800 topiramate 100 MG tablet 100 mg PO BID Qty: 60 0RF gabapentin 300 MG capsule 300 mg PO BID Qty: 60 0RF levetiracetam 1,000 MG tablet 1,000 mg PO BID Qty: 60 0RF amlodipine 5 mg tablet 5 mg PO DAILY phenobarbital 64.8 mg tablet 64.8 mg PO BID Label Comments: TAKE ONE (1) TABLET BY MOUTH TWICE DAILY Referrals / Follow Up: Himanshu Sanchez MD [Primary Care Provider] - Within 1 Week Disposition Disposition (needs filled in before D/C Order can be placed): [facility]
--- NOTE | 2022-03-09 14:30 | PCM.DC.SUM ---
Providers Date of Admission: 03/02/22 Date of Discharge: 03/09/22 Primary Care Physician: Dr. Himanshu Sanchez MD Consultations 03/02/22 18:43 Consult: Gastroenterology Routine Consulting Provider: [facility] Reason for Consult: GIB EMERGENT Consult: No MD Notified: Yes Date Notified: 03/02/22 Time Notified: 17:22 Method of Notification: Verbal Reason For Visit: ANEMIA, GIB Diagnosis Discharge Diagnosis (1) Acute GI bleeding: Status: Acute Code(s): K92.2 - Gastrointestinal hemorrhage, unspecified (2) Anemia: Status: Acute Code(s): D64.9 - Anemia, unspecified (3) Nausea and vomiting: Status: Acute Code(s): R11.2 - Nausea with vomiting, unspecified (4) Dehydration: Status: Acute Code(s): E86.0 - Dehydration (5) Pancytopenia: Status: Acute Code(s): D61.818 - Other pancytopenia Plan Patient is a 36-year-old female admitted with nausea vomiting and melena. Underwent EGD which found duodenal ulcerations as well as gastritis. Was also found to have elevated CPK levels managed as a case of myositis. 1.. Anemia from acute blood loss anemia from upper GI bleed ? Patient underwent EGD which found duodenal ulceration as well as gastritis managed with Protonix. Patient is also added on vitamin B12 and folic acid continued ? 03/08/2022; patient hemoglobin fairly stable. Pathology from patient EGD reviewed consistent with chronic gastritis. Patient is on PPI did continue ? Patient was discharged on PPI as well as sacral fate 2. Acute myositis ? Patient was found to have elevated CPK levels. Aldolase ordered (send out). Patient started empirically on prednisone. Monitoring with daily CPK levels ? 03/08/2022 aldolase level as well as RENATE with reflex panel pending. - Patient seen no change in condition. Her CPK levels trending down. Aldolase levels as well as RENATE with reflex panel results still pending ?Results of patient RENATE with reflex panel as well as aldolase levels were pending at time of discharge patient was discharged on tapering dose of steroid 3. Pancytopenia ? [place] to be secondary to autoimmune disease. As part of patient management ordered RENATE with reflex panel. Daily monitoring with CBC ordered 4. Essential hypertension ? Blood pressure controlled patient is on amlodipine continue 6. Seizure disorder ? Patient is on Keppra phenobarb and topiramate did continue 7. Cognitive impairment ? Etiology not clear monitoring 8. DVT prophylaxis ? Bilateral SCDs 9. Physical deconditioning - Requested for PT OT eval and social welfare administrator to assist with discharge planning Time spent; 38 -minute Medications at Discharge Home Medications ferrous sulfate 325 mg (65 mg iron) tablet 325 mg PO DAILY@0800 supplement 03/17/20 gabapentin 300 mg capsule 300 mg PO BID neuropathy #60 caps 04/06/20 levetiracetam 1,000 mg tablet 1,000 mg PO BID seizures #60 tabs 04/06/20 topiramate 100 mg tablet 100 mg PO BID #60 tabs 04/06/20 amlodipine 5 mg tablet 5 mg PO DAILY BP 09/16/21 phenobarbital 64.8 mg tablet 64.8 mg PO BID SEIZURES 03/02/22 acetaminophen 325 mg tablet (Tylenol) 650 mg PO Q6H PRN PRN Pain 1-10 Or Fever>100.7 #0 tabs 03/09/22 cyanocobalamin (vitamin B-12) 500 mcg tablet 1,000 mcg PO BREAKFAST #0 tabs 03/09/22 folic acid 1 mg tablet 1 mg PO BREAKFAST #0 tabs 03/09/22 menthol 0.44 %-zinc oxide 20.6 % topical ointment (Calmoseptine) 1 applic topical TID #0 grams 03/09/22 pantoprazole 40 mg tablet,delayed release (Protonix) 40 mg PO DAILY #1 TAB 03/09/22 prednisone 5 mg tablet 5 mg PO UD #240 tabs 03/09/22 sennosides 8.6 mg-docusate sodium 50 mg tablet (Stool Softener-Stimulant Laxative) 2 tab PO BID PRN PRN Constipation #0 tabs 03/09/22 sucralfate 1 gram tablet 1 g PO 0700,1100,1600 #0 tabs 03/09/22 Hospital Course Summary of Care Provided Minutes Spent on Discharge: 38 Physical Exam Narrative GENERAL: In no apparent distress but refuses to answer questions HEENT: Atraumatic; normocephalic EYES; Anicteric, Normal Conjunctiva NECK; supple, normal thyroid, RESPIRATORY: Diminished to auscultation CARDIOVASCULAR: Regular S1 S2, GI: soft, normoactive bowel sounds, : No Renal angle tenderness; EXTREMITIES: No edema, no clubbing, MUSCULOSKELETAL: no muscle wasting NEURO: Awake; no lateralizing signs. SKIN: No Rash PSYCH; Flat affect Weight / BMI Weight Weight: 88.451 kg Body Mass Index (BMI) 30.5 ABG / Lab / Microbiology Data Result Diagrams: 03/09/22 05:35 03/09/22 05:35 Laboratory: Laboratory Results - last 24 hr 03/08/22 06:35: Diff Path Review Reviewed 03/09/22 05:35: WBC 2.2 L, RBC 2.94 L, Hgb 9.5 L, Hct 28.7 L, MCV 97.6, MCH 32.3 H, MCHC 33.1, RDW Std Deviation 44.4 H, RDW Coeff of Enedina 12.5, Plt Count 113 L, MPV 10.7, Neut % (Auto) Not Reportable, Absolute Neuts (auto) 1.1 L, Absolute Lymphs (auto) 0.67 L, Total Counted 100, Neutrophils % (Manual) 50, Band Neutrophils % 7 H, Lymphocytes % (Manual) 30, Monocytes % (Manual) 9, Metamyelocytes % 2 H, Myelocytes % 2 H, Diff Path Review May foll, Atypical Lymphocytes 2+, Platelet Estimate SLT DEC, RBC Morphology NORM C+C 03/09/22 05:35: Sodium 137, Potassium 3.6, Chloride 105, Carbon Dioxide 27.0, Anion Gap 5, BUN 9, Creatinine 0.46 L, Estim Creat Clear Calc 162.83, Est GFR (MDRD) Af Amer 196, Est GFR (MDRD) Non-Af 162, BUN/Creatinine Ratio 19.6, Glucose 99, Calcium 7.8 L, Total Bilirubin 0.50, Direct Bilirubin 0.21, AST 265 H, ALT 149 H, Alkaline Phosphatase 53, Total Protein 5.4 L, Albumin 2.6 L, Globulin 2.8 Microbiology: Microbiology 03/02/22 21:00 Nasal Secretion SARS-CoV-2 Antigen (Rapid) - Final D/C Instructions Discharge Diet: No restrictions Discharge Activity: Return to Normal Activity Call your doctor if you observe: Fever of 101 or Higher, Shortness of breath, Fainting spells and Chest pain Meaningful Use Info Meaningful Use Diagnoses (Choose all that apply): None applicable Discharge Plan Admission Admit Date/Time: 03/02/22 17:16 Attending Provider: Yonas Benson Primary Care Provider: Himanshu Sanchez Consulting Providers: Awa Massey ; Franky Hatch Discharge Orders/Prescriptions Prescriptions: New sucralfate 1 gram Tablet 1 g PO 0700,1100,1600 Qty: 0 0RF sennosides-docusate sodium [Stool Softener-Stimulant Laxat] 8.6-50 mg Tablet 2 tab PO BID PRN PRN (Reason: Constipation) Qty: 0 0RF menthol-zinc oxide [Calmoseptine] 0.44-20.6 % Ointment 1 applic topical TID Qty: 0 0RF Protocol: *Topical Application Instructions APPLICATION INSTRUCTIONS: buttocks cyanocobalamin (vitamin B-12) 500 mcg Tablet 1,000 mcg PO BREAKFAST Qty: 0 0RF folic acid 1 mg Tablet 1 mg PO BREAKFAST Qty: 0 0RF acetaminophen [Tylenol] 325 mg Tablet 650 mg PO Q6H PRN PRN (Reason: Pain 1-10 Or Fever>100.7) Qty: 0 0RF prednisone 5 mg tablet 5 mg PO UD Qty: 240 0RF Rx Instructions: 40 mg p.o. daily x1 week then 35 mg p.o. daily x1 week then 30 mg p.o. daily x1 week then 30 mg p.o. daily x1 week then 25 mg p.o. daily x1 week then 20 mg p.o. daily x1 week then 15 mg p.o. daily x1 week then 10 mg p.o. daily x1 week then 5 mg daily pantoprazole [Protonix] 40 mg tablet,delayed release (DR/EC) 40 mg PO DAILY Qty: 1 0RF Continued ferrous sulfate 325 MG tablet 325 mg PO DAILY@0800 topiramate 100 MG tablet 100 mg PO BID Qty: 60 0RF gabapentin 300 MG capsule 300 mg PO BID Qty: 60 0RF levetiracetam 1,000 MG tablet 1,000 mg PO BID Qty: 60 0RF amlodipine 5 mg tablet 5 mg PO DAILY phenobarbital 64.8 mg tablet 64.8 mg PO BID Label Comments: TAKE ONE (1) TABLET BY MOUTH TWICE DAILY Referrals / Follow Up: Himanshu Sanchez MD [Primary Care Provider] - Within 1 Week Disposition Disposition (needs filled in before D/C Order can be placed): Long-Term Facility Charges/Coding Visit Charges Inpatient E&M: 82121 Disch Hosp >30min
--- NOTE | 2022-03-09 15:06 | CASEMGMT ---
Addendum entered by Sheba Espinoza 03/09/22 16:16: After being on hold and being transferred several times ZORAIDA was able to make contact with someone in [id number] that assisted with setting up transportation. Wheelchair transportation was set but SW was not given specific time. ZORAIDA was told it will take 1-3 hours for helper/driver to make it to [facility]. ZORAIDA provided [facility] nurses station phone number for transporter to call to inform of arrival. ZORAIDA was given trip ID number of [id number]. ZORAIDA informed charge nurse of plan for transporter to call. SHAUN Vásquez Original Note: Social Work ? ZORAIDA notified pt and pt , Jose of discharge to [facility] today. ZORAIDA completed 7000 convalescent form in [employer]. Due to [place] insurance transport has to be arranged through [id number]. ZORAIDA called to set up wheelchair transportation but has been unable to reach anyone. ZORAIDA faxed all discharge orders to [facility] via [employer] and notified of attempts to set up transport. ZORAIDA made copies of discharge orders and placed on pt chart. Sent original orders in envelope with pt upon discharge.??Will continue to work on finding transport for pt. Disposition: [facility], skilled, convalescent, level of care? SHAUN Vásquez?
[2022-03-09 15:45] VITALS: BP 138/87; PULSE 81; RESP 16; TEMP 36.7; O2SAT 96
[2022-03-09 16:10] LABS: Aldolase 14.9 U/L (3.3-10.3)
[2022-03-09 16:11] LABS: ANTINUCLEAR ANTIBODIES DIRECT Negative (Negative)
--- NOTE | 2022-03-09 17:51 | NURSING ---
attempted to call sukumar chavez two times with no answer or returned call to give report
[2022-03-09 21:50] VITALS: BP 134/91; PULSE 91; RESP 16; TEMP 36.7; O2SAT 94
--- NOTE | 2022-03-09 22:37 | NURSING ---
gave report to Desire from [facility]. made her aware we don't have time for transport yet.
[2022-03-10 03:02] VITALS: BP 140/86; PULSE 89; RESP 16; TEMP 36.6; O2SAT 95
[2022-03-10] MEDS: Menthol/Lanolin/Calamine/Znox 113 GM Tube 1 APPLIC TOPICAL (05:14)
[2022-03-10] MEDS: Sucralfate 1 GM Tablet PO ×2 (05:14→10:24)
[2022-03-10 06:25] LABS: Hematocrit 28.9 % (37-47); Hemoglobin 9.4 g/dL (12.0-15.0); Mean Corp Hgb Conc 32.5 g/dL (32-36); Mean Corpuscular Hgb 32.8 pg (27.0-32.0); Mean Corpuscular Volume 100.7 fL (81-99); Mean Platelet Vol. 12.7 fl (6.2-12.0); POSITIVE COUNT YES; POSITIVE MORPHOLOGY YES; Platelet Count 69 K/mm3 (150-450); RBC Distribution Width CV 12.6 % (11.6-14.6); RBC Distribution Width SD 46.6 fl (35.1-43.9); Red Blood Count 2.87 M/mm3 (4.2-5.4); White Blood Count 3.4 K/mm3 (4.4-11.0)
[2022-03-10 06:41] LABS: Differential Indicated MANUAL DIFF
[2022-03-10 07:12] LABS: AST(SGOT) 202 U/L (15-37); Alanine Aminotransfer ALT/SGPT 169 U/L (13-56); Albumin, Serum 2.5 g/dL (3.2-5.0); Alkaline Phosphatase 55 U/L (45-117); Anion Gap 6 (5-15); BUN 12 mg/dL (7-18); BUN/Creat Ratio 25.3 RATIO (10-20); Bilirubin, Direct 0.09 mg/dL (0.00-0.30); Calcium,Total 8.3 mg/dL (8.5-10.1); Chloride 104 mmol/L (98-107); Creatinine, Serum 0.48 mg/dL (0.55-1.02); EST Glomerular Filtration Rate 156 mL/min (>60); Est Glom Filt Rate - Afr Amer 189 mL/min (>60); Estimated Creatinine Clearance 156.05 ml/min; Globulin 2.7 g/dL (2.2-4.2); Glucose 84 mg/dL (74-106); Potassium 3.2 mmol/L (3.5-5.1); Protein, Total 5.2 g/dL (6.4-8.2); Sodium Level 136 mmol/L (136-145)
[2022-03-10 07:19] LABS: Macrocytosis RARE; Platelet Estimate MOD DEC (ADEQ)
[2022-03-10 07:20] LABS: Red Cell Morphology NORM C+C NORMAL (NORM C&C)
[2022-03-10 07:23] LABS: Absolute Lymphocyte Count 1.43 X10^3/uL (0.83-4.51); Absolute Neutrophil Count 1.7 X10^3/uL (2.0-7.7)
[2022-03-10 07:24] LABS: Atypical Lymphocyte 2+ %; Lymphocyte 42 % (19-41); Monocyte 1 % (0-10); Myelocyte 3 % (0-0); Neutrophil-Band 2 % (0-5); Neutrophil-Segmented 49 % (47-70); Total Cells Counted 100 (MANUAL DIFF)
--- NOTE | 2022-03-10 08:54 | CASEMGMT ---
Addendum entered by Sheba Espinoza 03/10/22 10:41: ZORAIDA spoke to supervisor reactor fueling, Maye, regarding situation. Maye suggested to call pt , Jose, to inquire if family may have a wheelchair that can be brought in for pt transport. Maye informed if family has no wheelchair then to book through [facility]. ZORAIDA called pt and denied having wheelchair at home. ZORAIDA called [facility], then are able to pick pt up and transport to [facility] within the next hour (between 10:45-11:45 am). Trisha with [facility] stated there were no wheelchairs available at this time so a stretcher will be sent for pt but that [facility] will be billed for a wheelchair rate. ZORAIDA called [facility] to inform pt will be transported form the hospital to [facility] within the hour. No answer, ZORAIDA left message for [facility] to inform pt will be arriving soon. SHANU Vásquez Addendum entered by Sheba Espinoza 03/10/22 09:35: ZORAIDA received call back from vendor for [id number]. Vendor stated no vehicle can provide a wheelchair or stretcher for pt to be transported in. ZORAIDA called [facility] to see if another option is available. Spoke to Trisha at [facility]. Trisha informed [facility] will accept the transport for pt but the hospital will be billed for the trip. ZORAIDA called supervisor reactor fueling to discuss. Awaiting a call back. Addendum entered by Sheba Espinoza 03/10/22 09:16: ZORAIDA called [id number] back and was able to reach staff member named Sharonda. ZORAIDA explained situation regarding pt not being picked up yesterday and requested to set up new trip and have the vendor, [facility] accept the trip. Sharonda informed that yesterday's trip was canceled due to the buggy driver not being able to reach anyone at [facility] and that [facility] is not a contracted Vendor for [id number]. ZORAIDA asked if there was a vendor that can provide the wheelchair for pt to be transported. Sharonda stated no, we just provide the wheelchair vehicle. ZORAIDA explained this is not was told to ZORAIDA by [id number] worker during yesterdays conversation. Sharonda placed SW on hold while called supervisor reactor fueling. Once Sharonda came back on the phone Sharonda offered to book the trip and see if any trip vendors can provide the wheelchair. ZORAIDA agreed, provided [facility] phone number as well as SW contact number for if a trip can be accepted with wheelchair being provided. Sharonda stated the vendor will call but could not give a specific time and was not able to guarantee that any vendor will even accept. ZORAIDA will also call [facility] to attempt booking trip, or to gather information about what companies they have contracts with that may cover [place] [employer]. Sharonda provided this ZORAIDA with new trip ID of [id number] SHAUN Vásquez Original Note: Social Work SW attempted to reach someone at [address] this morning. ZORAIDA has called 4 times. The first two calls were 5 minutes of the phone ringing and no answer. Second two calls rang once then was picker and packer and ended immediately. ZORAIDA will attempt to call again later this day. SHAUN Vásquez
--- NOTE | 2022-03-10 08:59 | PN.HOSP_ITS ---
Subjective Subjective Follow-up myositis ? Plan was for patient to have been discharged to [facility] facility however transport could not be arranged. Plan is to attempt this a.m. Objective Data Objective Data Vital Signs: Vital Signs Temp Pulse Resp BP Pulse Ox O2 Del Method 98 F 89 16 140/86 H 95 Room Air 03/10/22 03:02 03/10/22 03:02 03/10/22 03:02 03/10/22 03:02 03/10/22 03:02 03/10/22 08:54 Oxygen Delivery Method Room Air Weight: 88.451 kg Body Mass Index (BMI) 30.5 Intake & Output: Intake and Output for Last 24 Hours 03/08/22 03/09/22 03/10/22 23:59 23:59 23:59 Intake Total 2650.83 / 2850.83 1790.67 / 1790.67 Output Total 1500 / 2050 1350 / 1350 300 / 300 Balance 1150.83 / 800.83 440.67 / 440.67 -300 / -300 Lab / Micro Data Result Diagrams: 03/10/22 05:09 03/10/22 05:09 Labs: Laboratory Results - last 24 hr 03/08/22 06:35: RENATE Screen Negative, CRISTIAN-1 Antibody Not Reportable, SS-A/Ro IgG Antibody Not Reportable, SS-B/La IgG Antibody Not Reportable, Sm (Richard) Antibody Not Reportable, ACCOUNT SERVICES COORDINATOR Antibody Not Reportable, Scl-70 Scleroderma Ab Not Reportable, Double Strand DNA Ab Not Reportable, Centromere B Antibody Not Reportable 03/08/22 06:35: Aldolase 14.9 H 03/10/22 05:09: WBC 3.4 L, RBC 2.87 L, Hgb 9.4 L, Hct 28.9 L, MCV 100.7 H, MCH 32.8 H, MCHC 32.5, RDW Std Deviation 46.6 H, RDW Coeff of Enedina 12.6, Plt Count 69 L, MPV 12.7 H, Neut % (Auto) Not Reportable, Absolute Neuts (auto) 1.7 L, Absolute Lymphs (auto) 1.43, Total Counted 100, Neutrophils % (Manual) 49, Band Neutrophils % 2, Lymphocytes % (Manual) 42 H, Monocytes % (Manual) 1, Myelocytes % 3 H, Diff Path Review May foll, Atypical Lymphocytes 2+, Platelet Estimate MOD DEC, RBC Morphology NORM C+C, Macrocytosis RARE 03/10/22 05:09: Sodium 136, Potassium 3.2 L, Chloride 104, Carbon Dioxide 26.0, Anion Gap 6, BUN 12, Creatinine 0.48 L, Estim Creat Clear Calc 156.05, Est GFR (MDRD) Af Amer 189, Est GFR (MDRD) Non-Af 156, BUN/Creatinine Ratio 25.3 H, Glucose 84, Calcium 8.3 L, Total Bilirubin 0.50, Direct Bilirubin 0.09, AST 202 H, ALT 169 H, Alkaline Phosphatase 55, Total Protein 5.2 L, Albumin 2.5 L, Globulin 2.7 Micro: Microbiology 03/02/22 21:00 Nasal Secretion SARS-CoV-2 Antigen (Rapid) - Final Physical Exam Narrative GENERAL: In no apparent distress but refuses to answer questions HEENT: Atraumatic; normocephalic EYES; Anicteric, Normal Conjunctiva NECK; supple, normal thyroid, RESPIRATORY: Diminished to auscultation CARDIOVASCULAR: Regular S1 S2, GI: soft, normoactive bowel sounds, : No Renal angle tenderness; EXTREMITIES: No edema, no clubbing, MUSCULOSKELETAL: no muscle wasting NEURO: Awake; no lateralizing signs. SKIN: No Rash PSYCH; Flat affect Assessment & Plan Assessment/Plan (1) Acute GI bleeding: (2) Anemia: (3) Nausea and vomiting: (4) Dehydration: (5) Pancytopenia: PLAN: Plan Patient is a 36-year-old female admitted with nausea vomiting and melena. Underwent EGD which found duodenal ulcerations as well as gastritis. Was also found to have elevated CPK levels managed as a case of myositis. 1.. Anemia from acute blood loss anemia from upper GI bleed ? Patient underwent EGD which found duodenal ulceration as well as gastritis managed with Protonix. Patient is also added on vitamin B12 and folic acid continued ? 03/08/2022; patient hemoglobin fairly stable. Pathology from patient EGD reviewed consistent with chronic gastritis. Patient is on PPI did continue ? Patient was discharged on PPI as well as sacral fate 2. Acute myositis ? Patient was found to have elevated CPK levels. Aldolase ordered (send out). Patient started empirically on prednisone. Monitoring with daily CPK levels ? 03/08/2022 aldolase level as well as RENATE with reflex panel pending. - Patient seen no change in condition. Her CPK levels trending down. Aldolase levels as well as RENATE with reflex panel results still pending ?Results of patient RENATE with reflex panel as well as aldolase levels were pend ing at time of discharge patient was discharged on tapering dose of steroid 3. Pancytopenia ? [place] to be secondary to autoimmune disease. As part of patient management ordered RENATE with reflex panel. Daily monitoring with CBC ordered 4. Essential hypertension ? Blood pressure controlled patient is on amlodipine continue 6. Seizure disorder ? Patient is on Keppra phenobarb and topiramate did continue 7. Cognitive impairment ? Etiology not clear monitoring 8. DVT prophylaxis ? Bilateral SCDs 9. Physical deconditioning - Requested for PT OT eval and web content & social media manager to assist with discharge planning Time spent; 38 -minute Charges/Coding Visit Charges Inpatient E&M: 30105 Subs Hosp L1
[2022-03-10 09:03] VITALS: BP 160/96; PULSE 71; RESP 18; TEMP 36.4; O2SAT 95
[2022-03-10] MEDS: Gabapentin 300 MG Capsule PO (09:04)
[2022-03-10] MEDS: Phenobarbital 32.4 MG Tablet 64.8 MG PO (09:04)
[2022-03-10] MEDS: Folic Acid 1 MG Tablet PO (09:04)
[2022-03-10] MEDS: Cyanocobalamin 500 MCG Tablet 1000 MCG PO (09:04)
[2022-03-10] MEDS: amLODIPine 5 MG Tablet PO (09:05)
[2022-03-10] MEDS: Topiramate 100 MG Tablet PO (09:05)
[2022-03-10] MEDS: levETIRAcetam 1,000 MG Tablet 1000 MG PO (09:05)
[2022-03-10] MEDS: Ferrous Sulfate 325 MG Tablet PO (09:05)
[2022-03-10 09:28] LABS: Pathologist Review Reviewed
[2022-03-10] MEDS: Potassium Chloride Oral Tablet 20 MEQ 40 MEQ PO (10:24)
[2022-03-10] MEDS: Pantoprazole Sodium 40 MG Tablet PO (10:24)
--- NOTE | 2022-03-10 10:50 | PHA.DC.MR ---
Pharmacy Service has performed discharge medication reconciliation for this patient upon transfer to [facility]. Home Medications ferrous sulfate 325 mg (65 mg iron) tablet 325 mg PO DAILY@0800 supplement 03/17/20 gabapentin 300 mg capsule 300 mg PO BID neuropathy #60 caps 04/06/20 levetiracetam 1,000 mg tablet 1,000 mg PO BID seizures #60 tabs 04/06/20 topiramate 100 mg tablet 100 mg PO BID #60 tabs 04/06/20 amlodipine 5 mg tablet 5 mg PO DAILY BP 09/16/21 phenobarbital 64.8 mg tablet 64.8 mg PO BID SEIZURES 03/02/22 acetaminophen 325 mg tablet (Tylenol) 650 mg PO Q6H PRN PRN Pain 1-10 Or Fever>100.7 #0 tabs 03/09/22 cyanocobalamin (vitamin B-12) 500 mcg tablet 1,000 mcg PO BREAKFAST #0 tabs 03/09/22 folic acid 1 mg tablet 1 mg PO BREAKFAST #0 tabs 03/09/22 menthol 0.44 %-zinc oxide 20.6 % topical ointment (Calmoseptine) 1 applic topical TID #0 grams 03/09/22 pantoprazole 40 mg tablet,delayed release (Protonix) 40 mg PO DAILY #1 TAB 03/09/22 prednisone 5 mg tablet 5 mg PO UD #240 tabs 03/09/22 sennosides 8.6 mg-docusate sodium 50 mg tablet (Stool Softener-Stimulant Laxative) 2 tab PO BID PRN PRN Constipation #0 tabs 03/09/22 sucralfate 1 gram tablet 1 g PO 0700,1100,1600 #0 tabs 03/09/22 The patient's discharge medication list was reviewed for discrepancies and discrepancies were resolved.
[2022-03-11 11:43] LABS: Pathologist Review Reviewed
== END 2022-03-10 11:24 | disposition skilled nursing facility (03) | DRG 241 ==
LOC: ED 17:00 → MS3 17:41
PROVIDERS: Anesthesiology; Family Medicine; Internal Medicine Gastroenterology; Admitting Provider Internal Medicine; Emergency Provider Emergency Medicine; PCP Family Medicine; Visit Provider Internal Medicine
PROC: 0DJ08ZZ Inspection of Upper Intestinal Tract, Via Natural or Artificial Opening Endoscopic (ICD-10-PCS; CPT 43235; principal; 2022-03-03 12:55)
DX: K26.4 Chronic or unspecified duodenal ulcer with hemorrhage (principal); D61.818 Other pancytopenia; M33.20 Polymyositis, organ involvement unspecified; G40.909 Epilepsy, unspecified, not intractable, without status epilepticus; D62 Acute posthemorrhagic anemia; E86.0 Dehydration; E87.8 Other disorders of electrolyte and fluid balance, not elsewhere classified; I10 Essential (primary) hypertension; G62.9 Polyneuropathy, unspecified; E87.6 Hypokalemia; K29.01 Acute gastritis with bleeding; Z20.822 Contact with and (suspected) exposure to COVID-19; Z79.899 Other long term (current) drug therapy
CPT/HCPCS: 36415; 76705; 80048; 80053; 80074; 80076; 80177; 80184; 81001; 81025; 82085; 82550; 82607; 82728; 82746; 82747; 83540; 83550; 83735; 84100; 85014; 85018; 85025; 85045; 85610; 85730; 86038; 86225; 86235; 86703; 86850; 86900; 86901; 87811; 88305; 88342; 97110; 97116; 97162; 97166; 97530; 97535; 99285; J7030; J7120; A4216; J2405; J3490

== ENCOUNTER → 2022-03-11 | Outpatient (REF) | payer MEDICAID, SELFPAY ==
[2022-03-11 09:29] LABS: Absolute Lymphocyte Count 1.33 X10^3/uL (0.83-4.51); Absolute Neutrophil Count 1.7 X10^3/uL (2.0-7.7); Basophil# 0.03 X10^3/uL; Basophil% 0.9 % (0-1); Eosinophil# 0.07 X10^3/uL; Lymphocyte # 1.33 X10^3/ul (0.83-4.51); Lymphocyte % 38.4 % (19-41); Mean Corp Hgb Conc 36.7 g/dL (32-36); Mean Corpuscular Hgb 36.8 pg (27.0-32.0); Mean Corpuscular Volume 100.3 fL (81-99); Mean Platelet Vol. 12.8 fl (6.2-12.0); Monocyte% 8.7 % (0-10); NRBC Flagged by Analyzer 1.2 % (0-5); Neutrophil # 1.65 X10^3/uL (2.7-7.7); Neutrophil % 47.7 % (47-70); POSITIVE COUNT YES; Platelet Count 43 K/mm3 (150-450); RBC Distribution Width CV 14.5 % (11.6-14.6); RBC Distribution Width SD 46.2 fl (35.1-43.9); Red Blood Count 2.99 M/mm3 (4.2-5.4); White Blood Count 3.5 K/mm3 (4.4-11.0)
[2022-03-11 09:31] LABS: Differential Indicated SCAN CRITERIA MET
[2022-03-11 09:53] LABS: Platelet Estimate MKD DEC (ADEQ)
[2022-03-11 13:47] LABS: Anion Gap 10 (5-15); BUN 11 mg/dL (7-18); BUN/Creat Ratio 17.7 RATIO (10-20); Calcium,Total 8.5 mg/dL (8.5-10.1); Chloride 104 mmol/L (98-107); Creatinine, Serum 0.62 mg/dL (0.55-1.02); EST Glomerular Filtration Rate 115 mL/min (>60); Est Glom Filt Rate - Afr Amer 139 mL/min (>60); Glucose 135 mg/dL (74-106); Magnesium 1.7 mg/dL (1.6-2.6); Potassium 3.5 mmol/L (3.5-5.1); Sodium Level 137 mmol/L (136-145)
[2022-03-11 13:58] LABS: Vitamin B12 610 pg/mL (211-911); Vitamin D,25 Hydroxy 17.5 ng/mL
[2022-03-15 09:20] LABS: Pathologist Review Reviewed
== END | disposition home or self-care (01) ==
LOC: OLS.SW 05:00
PROVIDERS: PCP Family Medicine; Visit Provider Internal Medicine
DX: E55.9 Vitamin D deficiency, unspecified (principal); Z79.899 Other long term (current) drug therapy
CPT/HCPCS: 36415; 80048; 82306; 82607; 83735; 85025

== ENCOUNTER → 2022-03-14 | Outpatient (REF) | payer MEDICAID, SELFPAY ==
[2022-03-14 09:04] LABS: Hematocrit 30.3 % (37-47); Hemoglobin 9.8 g/dL (12.0-15.0); Mean Corp Hgb Conc 32.3 g/dL (32-36); Mean Corpuscular Hgb 32.2 pg (27.0-32.0); Mean Corpuscular Volume 99.7 fL (81-99); Platelet Count 107 K/mm3 (150-450); RBC Distribution Width CV 13.3 % (11.6-14.6); RBC Distribution Width SD 48.5 fl (35.1-43.9); Red Blood Count 3.04 M/mm3 (4.2-5.4); White Blood Count 4.2 K/mm3 (4.4-11.0)
[2022-03-14 09:17] LABS: Anion Gap 10 (5-15); BUN 10 mg/dL (7-18); BUN/Creat Ratio 19.3 RATIO (10-20); Calcium,Total 8.6 mg/dL (8.5-10.1); Chloride 104 mmol/L (98-107); Creatinine, Serum 0.52 mg/dL (0.55-1.02); EST Glomerular Filtration Rate 141 mL/min (>60); Est Glom Filt Rate - Afr Amer 170 mL/min (>60); Glucose 82 mg/dL (74-106); Magnesium 2.4 mg/dL (1.6-2.6); Potassium 2.9 mmol/L (3.5-5.1); Sodium Level 139 mmol/L (136-145)
[2022-03-14 10:59] LABS: Hepatitis B Surface Antibody Non-Reactive; Hepatitis C Antibody Non-Reactive (Nonreactive)
[2022-03-15 14:25] LABS: Hepatitis A IgM Antibody Negative (Negative)
== END | disposition home or self-care (01) ==
LOC: OLS.SW 04:00
PROVIDERS: PCP Family Medicine; Referring Provider Internal Medicine; Visit Provider Internal Medicine
DX: K92.2 Gastrointestinal hemorrhage, unspecified (principal); D62 Acute posthemorrhagic anemia; D61.818 Other pancytopenia; M60.9 Myositis, unspecified; G40.89 Other seizures; R74.01 Elevation of levels of liver transaminase levels
CPT/HCPCS: 36415; 80048; 83735; 85027; 86706; 86709; 86803

== ENCOUNTER → 2022-03-18 | Outpatient (REF) | payer MEDICAID, SELFPAY ==
[2022-03-18 09:40] LABS: Platelet Count 128 K/mm3 (150-450)
== END | disposition home or self-care (01) ==
LOC: OLS.SW 05:00
PROVIDERS: PCP Family Medicine; Visit Provider Internal Medicine
DX: D64.9 Anemia, unspecified (principal); K92.2 Gastrointestinal hemorrhage, unspecified
CPT/HCPCS: 36415; 85049

== ENCOUNTER → 2022-03-21 | Outpatient (REF) | payer MEDICAID, SELFPAY ==
[2022-03-21 09:13] LABS: Hematocrit 36.4 % (37-47); Hemoglobin 11.5 g/dL (12.0-15.0); Mean Corp Hgb Conc 31.6 g/dL (32-36); Mean Corpuscular Hgb 32.5 pg (27.0-32.0); Mean Corpuscular Volume 102.8 fL (81-99); Mean Platelet Vol. 11.7 fl (6.2-12.0); Platelet Count 193 K/mm3 (150-450); RBC Distribution Width CV 14.1 % (11.6-14.6); RBC Distribution Width SD 53.1 fl (35.1-43.9); Red Blood Count 3.54 M/mm3 (4.2-5.4)
[2022-03-21 09:48] LABS: Anion Gap 10 (5-15); BUN 8 mg/dL (7-18); BUN/Creat Ratio 12.7 RATIO (10-20); Calcium,Total 9.2 mg/dL (8.5-10.1); Chloride 106 mmol/L (98-107); Creatinine, Serum 0.63 mg/dL (0.55-1.02); EST Glomerular Filtration Rate 113 mL/min (>60); Est Glom Filt Rate - Afr Amer 137 mL/min (>60); Glucose 79 mg/dL (74-106); Magnesium 1.9 mg/dL (1.6-2.6); Potassium 3.1 mmol/L (3.5-5.1); Sodium Level 138 mmol/L (136-145)
== END | disposition home or self-care (01) ==
LOC: OLS.SW 04:00
PROVIDERS: PCP Family Medicine; Referring Provider Internal Medicine; Visit Provider Internal Medicine
DX: I10 Essential (primary) hypertension (principal)
CPT/HCPCS: 36415; 80048; 83735; 85027

== ENCOUNTER 2022-03-30 07:52 | Emergency (ER) | payer MEDICAID, SELFPAY ==
[2022-03-30 07:54] VITALS: BP 140/97; PULSE 79; RESP 16; TEMP 36.1; O2SAT 98; BMI 29.5
--- NOTE | 2022-03-30 08:08 | EDS_ITS ---
HPI History of Present Illness Chief Complaint: Fall Informant: patient Narrative Narrative: Patient is at [facility]. She states they sent her in here because of her blood pressure. On their transfer form they recorded her blood pressure is 135/97. She states she feels the same today as any other day. She does admit that she fell yesterday. She states she fell or rolled out of bed and landed on her buttock. She denies hitting anything else. She states she has been up walking since this. She denies hitting her head or having a headache. She states the buttock really does not even hurt much. She denies being on blood thinners and I do not see any on her med sheet. [facility] Medical History Cognitive dysfunction Debility HTN (hypertension) Morbid obesity Seizure disorder Home Medications ferrous sulfate 325 mg (65 mg iron) tablet 325 mg PO DAILY@0800 supplement [History Last Taken 03/02/22] gabapentin 300 mg capsule 300 mg PO BID neuropathy #60 caps 04/06/20 [Rx Last Taken 03/02/22] levetiracetam 1,000 mg tablet 1,000 mg PO BID seizures #60 tabs 04/06/20 [Rx Last Taken 03/02/22] topiramate 100 mg tablet 100 mg PO BID #60 tabs 04/06/20 [Rx Last Taken 03/02/22] amlodipine 5 mg tablet 5 mg PO DAILY BP 09/16/21 [History Last Taken 03/02/22] phenobarbital 64.8 mg tablet 64.8 mg PO BID SEIZURES 03/02/22 [History Last Taken 03/02/22] acetaminophen 325 mg tablet (Tylenol) 650 mg PO Q6H PRN PRN Pain 1-10 Or Fever>100.7 #0 tabs 03/09/22 [Rx Last Taken Unknown] cyanocobalamin (vitamin B-12) 500 mcg tablet 1,000 mcg PO BREAKFAST #0 tabs 03/09/22 [Rx Last Taken Unknown] folic acid 1 mg tablet 1 mg PO BREAKFAST #0 tabs 03/09/22 [Rx Last Taken Unknown] menthol 0.44 %-zinc oxide 20.6 % topical ointment (Calmoseptine) 1 applic topical TID #0 grams 03/09/22 [Rx Last Taken Unknown] pantoprazole 40 mg tablet,delayed release (Protonix) 40 mg PO DAILY #1 TAB 03/09/22 [Rx Last Taken Unknown] prednisone 5 mg tablet 5 mg PO UD #240 tabs 03/09/22 [Rx Last Taken Unknown] sennosides 8.6 mg-docusate sodium 50 mg tablet (Stool Softener-Stimulant Laxative) 2 tab PO BID PRN PRN Constipation #0 tabs 03/09/22 [Rx Last Taken Unknown] sucralfate 1 gram tablet 1 g PO 0700,1100,1600 #0 tabs 03/09/22 [Rx Last Taken Unknown] Allergy/AdvReac Type Severity Reaction Status Date / Time fluconazole Allergy NEEDS Verified 03/02/22 08:52 FOLLOW-UP naproxen Allergy Hives Verified 03/02/22 08:52 Social History household members: significant other, family and children housing: house Smoking Status: Never smoker alcohol intake: never substance use type: does not use ROS ROS ED Constitutional Constitutional ED: Denies fever(s) Eyes Eyes: Denies change in vision ENT ENT ED: Denies rhinorrhea or sore throat Cardiovascular Cardiovascular: Denies chest pain Respiratory/Chest Respiratory/Chest: Denies cough or dyspnea Gastrointestinal Gastrointestinal: Denies abdominal pain, nausea or vomiting Genitourinary Genitourinary ED: Denies hematuria Musculoskeletal Musculoskeletal: Reports other Details: See history of present illness. ; Denies arthralgias, back pain, myalgias or neck pain Integumentary Reports other Details: Patient states she does bruise easily. ; Denies Abrasions or rash Neurologic Neurologic: Denies headache(s) Hematologic/Lymphatic Hematologic/Lymphatic: Reports easy bleeding and easy bruising Allergic/Immunologic Allergic/Immunologic ED: Denies urticaria EXAM Physical Exam Const Vital Signs: 03/30/22 07:54 03/30/22 09:15 03/30/22 09:15 Temperature 97.0 F L Temperature Source Temporal Pulse Rate 79 Respiratory Rate 16 Respiratory Effort Normal Blood Pressure 140/97 H 158/112 H Blood Pressure Mean 111 127 Pulse Ox 98 Oxygen Delivery Method Room Air Positive well nourished and well developed General Appearance ED: well developed; Negative for diaphoretic HEENT HEENT Narrative: I do not see any signs of facial or head trauma. We looked all through her hair. I see no indication of injury. Mucous membranes are minimally dry. Eyes EOMs intact bilaterally Eyes Narrative: Pupils are about 3 mm and reactive. Conjunctive is not pale. No petechiae. Neck Neck Narrative: No tenderness or pain with range of motion. Chest Wall palpation of chest normal Resp normal respiratory effort and clear to auscultation bilaterally Cardio regular rate and regular rhythm GI normal to inspection, nondistended, normoactive bowel sounds, non-tender and non-distended Back/Spine no CVA tenderness Extremity Extremity Narrative: There are a few small contusions on shins and arms but nothing of significance or that which would be found abnormal. There is a small contusion near the left upper buttock area. It looks to be a little bit older. Its not really tender there. Neuro Neuro Narrative: Patient is awake alert oriented. She is a reasonably good informant for some of her history. She does speak very slowly which is reportedly her normal. Psych Psych Narrative: Flat affect. Skin Skin Narrative: See above. MDM MDM MDM Narrative Medical decision making narrative: My independent interpretation of the patient's single view pelvis x-ray shows no sign of fracture or dislocation. No significant demineralization. Final reading by radiology shows no acute process. Patient's been observed here. She has a slight rise in her blood pressure. This is asymptomatic. She has had blood work done approximately a week ago as an outpatient. I reviewed this blood work that showed normal renal function. Her hemoglobin had risen from her stay for bleeding. I will get her her morning blood pressure meds. I do not think her blood pressure numbers that were seeing here today require aggressive IV therapy or repeat labs. She is asymptomatic with mild elevation in the blood pressure and has not yet had her morning meds. I think she is safe to return to her care facility. Radiography Diagnostic Testing: Clinical Impression(s) from Imaging Studies Pelvis X-Ray 03/30/22 08:35 IMPRESSION: Normal x-ray examination of the pelvis. Electronically Signed: Bartolo Verma MD at 8:51 EST , Discharge Plan Triage Chief Complaint: Fall ED Provider: Jose Moreira Dx/Rx/DC Orders Clinical Impression: Fall at custodial, Contusion of buttock, Elevated blood pressure reading with diagnosis of hypertension Instructions: ED High Blood Pressure Hypertension, ED Fall Prevention Prescriptions: No Action ferrous sulfate 325 MG tablet 325 mg PO DAILY@0800 topiramate 100 MG tablet 100 mg PO BID Qty: 60 0RF gabapentin 300 MG capsule 300 mg PO BID Qty: 60 0RF levetiracetam 1,000 MG tablet 1,000 mg PO BID Qty: 60 0RF amlodipine 5 mg tablet 5 mg PO DAILY phenobarbital 64.8 mg tablet 64.8 mg PO BID Label Comments: TAKE ONE (1) TABLET BY MOUTH TWICE DAILY sucralfate 1 gram Tablet 1 g PO 0700,1100,1600 Qty: 0 0RF sennosides-docusate sodium [Stool Softener-Stimulant Laxat] 8.6-50 mg Tablet 2 tab PO BID PRN PRN (Reason: Constipation) Qty: 0 0RF menthol-zinc oxide [Calmoseptine] 0.44-20.6 % Ointment 1 applic topical TID Qty: 0 0RF Protocol: *Topical Application Instructions APPLICATION INSTRUCTIONS: buttocks cyanocobalamin (vitamin B-12) 500 mcg Tablet 1,000 mcg PO BREAKFAST Qty: 0 0RF folic acid 1 mg Tablet 1 mg PO BREAKFAST Qty: 0 0RF acetaminophen [Tylenol] 325 mg Tablet 650 mg PO Q6H PRN PRN (Reason: Pain 1-10 Or Fever>100.7) Qty: 0 0RF prednisone 5 mg tablet 5 mg PO UD Qty: 240 0RF Rx Instructions: 40 mg p.o. daily x1 week then 35 mg p.o. daily x1 week then 30 mg p.o. daily x1 week then 30 mg p.o. daily x1 week then 25 mg p.o. daily x1 week then 20 mg p.o. daily x1 week then 15 mg p.o. daily x1 week then 10 mg p.o. daily x1 week then 5 mg daily pantoprazole [Protonix] 40 mg tablet,delayed release (DR/EC) 40 mg PO DAILY Qty: 1 0RF Primary Care Provider: Himanshu Sanchez Referrals: Himanshu Sanchez MD [Primary Care Provider] - 3-5 Days Disposition Disposition: Snf Facility
--- NOTE | 2022-03-30 08:35 | RAD_ITS ---
STUDY: X-RAY - PELVIS REASON FOR EXAM: Female, 36 years old. Trauma TECHNIQUE: One view of the pelvis was obtained. COMPARISON: Comparison is made with prior study dated 04/10/2020. FINDINGS: There is a non-specific bowel gas pattern. Normal visualized soft tissue structures. Normal bilateral iliac wings, sacroiliac joints and visualized sacrum. Normal visualized bilateral superior and inferior pubic rami. There are degenerative changes of the pubic symphysis with articular narrowing and sclerosis. Normal ischial tuberosities. Normal visualized right femoral head. Normal right acetabulum. Normal right hip joint. Normal visualized left femoral head. Normal left acetabulum. Normal left hip joint. RAD/Pelvis 1 or 2 Views IMPRESSION: Normal x-ray examination of the pelvis. Electronically Signed: Bartolo Verma MD at 8:51 EST ,
[2022-03-30 09:15] VITALS: BP 158/112
[2022-03-30] MEDS: amLODIPine 5 MG Tablet PO (09:36)
--- NOTE | 2022-03-30 09:43 | NURSING ---
CALLED [facility], ETA IS 40 MIN
--- NOTE | 2022-03-30 09:47 | ED.RN ---
Report given to Renetta at [facility].
== END 2022-03-30 10:21 ==
PROVIDERS: Emergency Provider Emergency Medicine; PCP Family Medicine; Visit Provider Emergency Medicine
DX: S30.0XXA Contusion of lower back and pelvis, initial encounter (principal); I10 Essential (primary) hypertension; W19.XXXA Unspecified fall, initial encounter; Y92.129 Unspecified place in nursing home as the place of occurrence of the external cause
CPT/HCPCS: 72170; 99284

== ENCOUNTER 2022-04-01 18:36 | Emergency (ER) | payer MEDICAID, SELFPAY ==
[2022-04-01 18:38] VITALS: BP 147/100; PULSE 100; RESP 18; TEMP 36.6; O2SAT 100; BMI 28.1
--- NOTE | 2022-04-01 21:54 | EDS_ITS ---
HPI History of Present Illness Chief Complaint: Dizziness Informant: patient Onset/Context/Timing Onset: Today Context: Sudden Onset Timing: Continuous Quality: Diplopia Location: Head Worsened by: Nothing Relieved by: Nothing Narrative Narrative: Presents with dizziness that began today. Patient states she woke up and was feeling dizzy. Patient describes her dizziness as double vision. Patient denies any spinning sensation. Patient denies any blurry vision. Patient states it has been constant all day today. Patient states she fell off the couch earlier today and hit the upper part of her back and the back of her head. Patient denies any loss of consciousness. Patient denies any fevers or chills. Patient denies any nausea or vomiting. Patient denies any hearing loss or tinnitus. [facility] Medical History Cognitive dysfunction Debility HTN (hypertension) Morbid obesity Seizure disorder Home Medications ferrous sulfate 325 mg (65 mg iron) tablet 325 mg PO DAILY@0800 supplement 03/17/20 [History Last Taken 03/02/22] gabapentin 300 mg capsule 300 mg PO BID neuropathy #60 caps 04/06/20 [Rx Last Taken 03/02/22] levetiracetam 1,000 mg tablet 1,000 mg PO BID seizures #60 tabs 04/06/20 [Rx Last Taken 03/02/22] topiramate 100 mg tablet 100 mg PO BID #60 tabs 04/06/20 [Rx Last Taken 03/02/22] amlodipine 5 mg tablet 5 mg PO DAILY BP 09/16/21 [History Last Taken 03/02/22] phenobarbital 64.8 mg tablet 64.8 mg PO BID SEIZURES 03/02/22 [History Last Taken 03/02/22] acetaminophen 325 mg tablet (Tylenol) 650 mg PO Q6H PRN PRN Pain 1-10 Or Fever>100.7 #0 tabs 03/09/22 [Rx Last Taken Unknown] cyanocobalamin (vitamin B-12) 500 mcg tablet 1,000 mcg PO BREAKFAST #0 tabs 0 03/09/22 [Rx Last Taken Unknown] folic acid 1 mg tablet 1 mg PO BREAKFAST #0 tabs 03/09/22 [Rx Last Taken Unknown] menthol 0.44 %-zinc oxide 20.6 % topical ointment (Calmoseptine) 1 applic topical TID #0 grams 03/09/22 [Rx Last Taken Unknown] pantoprazole 40 mg tablet,delayed release (Protonix) 40 mg PO DAILY #1 TAB 03/09/22 [Rx Last Taken Unknown] prednisone 5 mg tablet 5 mg PO UD #240 tabs 03/09/22 [Rx Last Taken Unknown] sennosides 8.6 mg-docusate sodium 50 mg tablet (Stool Softener-Stimulant Laxative) 2 tab PO BID PRN PRN Constipation #0 tabs 03/09/22 [Rx Last Taken Unknown] sucralfate 1 gram tablet 1 g PO 0700,1100,1600 #0 tabs 03/09/22 [Rx Last Taken Unknown] sulfamethoxazole 800 mg-trimethoprim 160 mg tablet 1 tab PO BID #6 TABLETS 04/02/22 [Rx Last Taken Unknown] Allergy/AdvReac Type Severity Reaction Status Date / Time fluconazole Allergy NEEDS Verified 04/01/22 18:41 FOLLOW-UP naproxen Allergy Hives Verified 04/01/22 18:41 Social History household members: significant other, family and children housing: house Smoking Status: Never smoker alcohol intake: never substance use type: does not use ROS ROS ED Constitutional Constitutional ED: Denies chills or fever(s) Eyes Eyes: Reports diplopia; Denies blurry vision ENT ENT ED: Denies rhinorrhea or sore throat Cardiovascular Cardiovascular: Denies chest pain or palpitations Respiratory/Chest Respiratory/Chest: Reports cough; Denies dyspnea Gastrointestinal Gastrointestinal: Denies nausea or vomiting Genitourinary Genitourinary ED: Denies dysuria or hematuria Musculoskeletal Musculoskeletal: Reports back pain; Denies neck pain Integumentary Denies abscess or rash Neurologic Neurologic: Denies headache(s) or weakness Allergic/Immunologic Allergic/Immunologic ED: Denies mouth swelling or urticaria EXAM Physical Exam Const Vital Signs: 04/01/22 18:38 Temperature 97.8 F Temperature Source Temporal Pulse Rate 100 Respiratory Rate 18 Blood Pressure 147/100 H Blood Pressure Mean 115 Pulse Ox 100 Oxygen Delivery Method Room Air Positive well nourished and well developed General Appearance ED: well developed and NAD HEENT Negative for tenderness Eyes PERRL and EOMs intact bilaterally Neck supple and no JVD Resp normal respiratory effort and clear to auscultation bilaterally Cardio regular rate, regular rhythm and no murmurs GI normal to inspection, nondistended, normoactive bowel sounds and non-tender Palpation: soft Back/Spine Back/Spine Narrative: There is mild tenderness of the upper thoracic spine. There is no bony crepitance or step-off. There is no edema or ecchymosis. There is good range of motion. Thoracic Spine / Upper Back: thoracic spinal tenderness T2, T3 and T4 Extremity normal to inspection General Extremety ED: Negative for edema or tenderness General Extremity: Negative for edema Neuro oriented x3, CN's II-XII intact bilaterally and no sensory deficits noted Sensorium / Orientation: alert Motor Exam: strength 5/5 throughout Psych mental status grossly normal Mood & Affect: depressed Skin no rashes or lesions noted MDM MDM MDM Narrative Medical decision making narrative: Differential diagnosis includes stroke, dehydration, intracranial mass, anxiety, closed head injury, urinary tract infection, and labyrinthitis. CBC will be obtained to assess for anemia and leukocytosis. Basic metabolic profile will be obtained to assess for electrolyte abnormality and renal function. Urinalysis will be obtained to assess for urinary tract infection. CT scan of the brain will be obtained to assess for intracranial mass, stroke, and intracranial bleeding. Lab Data Lab results narrative: Urinalysis was reviewed and shows a leukocyte esterases of 500 with positive nitrites and 25-50 white blood cells. There is 2+ bacteria. CBC was reviewed and was within normal limits. Basic metabolic profile was reviewed and showed a mild hypokalemia of 3.3 but was otherwise within normal limits. Labs: Laboratory Results - last 24 hr 04/01/22 04/02/22 04/02/22 22:35 00:01 00:01 WBC 7.5 RBC 4.17 L Hgb 13.2 Hct 43.7 MCV 104.8 H MCH 31.7 MCHC 30.2 L RDW Std Deviation 53.9 H RDW Coeff of [place] 13.8 Plt Count 185 MPV 11.1 Immature Gran % (Auto) 0.300 Neut % (Auto) 70.8 H Lymph % (Auto) 17.7 L [place] % (Auto) 9.8 Eos % (Auto) 1.1 Baso % (Auto) 0.3 Absolute Neuts (auto) 5.3 Absolute Lymphs (auto) 1.32 Nucleated RBC % 0 Sodium 145 Potassium 3.3 L Chloride 110 H Carbon Dioxide 23.0 Anion Gap 12 BUN 12 Creatinine 0.66 Estim Creat Clear Calc 113.49 Est GFR (MDRD) Af Amer 128 Est GFR (MDRD) Non-Af 106 BUN/Creatinine Ratio 18.1 Glucose 102 Calcium 9.4 Urine Color [place] Urine Clarity Sl. Cloudy Urine pH 5.0 Ur Specific [place] 1.025 Urine Protein 30 H Urine Glucose (UA) Normal Urine Ketones 5 H Urine Occult Blood 10 H Urine Nitrite Positive H Urine Bilirubin 1 H Urine Urobilinogen 1 H Ur Leukocyte Esterase 500 H Urine RBC 0 SEEN Urine WBC 25-50 SEEN Ur Squamous Epith Cells 0-5 SEEN Urine Bacteria 2+ Urine Mucus 0 SEEN Urine Trichomonas 0-5 SEEN Radiography Diagnostic Testing: Clinical Impression(s) from Imaging Studies Brain CT 04/01/22 22:01 IMPRESSION: 1. No acute intracranial abnormalities. 2. Age-related changes. Electronically Signed: Rico Ayala MD at 23:55 EST , CT scan of the brain was obtained. There is no acute intracranial abnormality. This was interpreted by the radiologist and was also independently reviewed by myself. Treatment and Re-Evaluation Narrative: Urine culture was ordered. Patient was given a dose of Bactrim here. Patient was given a prescription for Bactrim. Patient was instructed to drink plenty of fluids. Patient was instructed to follow-up with her primary care physician in 3 to 5 days. Patient understood and was agreeable with the plan. All questions were answered. Discharge Plan Triage Chief Complaint: Dizziness ED Provider: Kiel Galvez Dx/Rx/DC Orders Clinical Impression: Urinary tract infection, Poor intravenous access Instructions: ED Cystitis Female Adult Prescriptions: New sulfamethoxazole-trimethoprim [sulfamethoxazole-trimethoprim] 800-160 mg tablet 1 tab PO BID Qty: 6 0RF No Action ferrous sulfate 325 MG tablet 325 mg PO DAILY@0800 topiramate 100 MG tablet 100 mg PO BID Qty: 60 0RF gabapentin 300 MG capsule 300 mg PO BID Qty: 60 0RF levetiracetam 1,000 MG tablet 1,000 mg PO BID Qty: 60 0RF amlodipine 5 mg tablet 5 mg PO DAILY phenobarbital 64.8 mg tablet 64.8 mg PO BID Label Comments: TAKE ONE (1) TABLET BY MOUTH TWICE DAILY sucralfate 1 gram Tablet 1 g PO 0700,1100,1600 Qty: 0 0RF sennosides-docusate sodium [Stool Softener-Stimulant Laxat] 8.6-50 mg Tablet 2 tab PO BID PRN PRN (Reason: Constipation) Qty: 0 0RF menthol-zinc oxide [Calmoseptine] 0.44-20.6 % Ointment 1 applic topical TID Qty: 0 0RF Protocol: *Topical Application Instructions APPLICATION INSTRUCTIONS: buttocks cyanocobalamin (vitamin B-12) 500 mcg Tablet 1,000 mcg PO BREAKFAST Qty: 0 0RF folic acid 1 mg Tablet 1 mg PO BREAKFAST Qty: 0 0RF acetaminophen [Tylenol] 325 mg Tablet 650 mg PO Q6H PRN PRN (Reason: Pain 1-10 Or Fever>100.7) Qty: 0 0RF prednisone 5 mg tablet 5 mg PO UD Qty: 240 0RF Rx Instructions: 40 mg p.o. daily x1 week then 35 mg p.o. daily x1 week then 30 mg p.o. daily x1 week then 30 mg p.o. daily x1 week then 25 mg p.o. daily x1 week then 20 mg p.o. daily x1 week then 15 mg p.o. daily x1 week then 10 mg p.o. daily x1 week then 5 mg daily pantoprazole [Protonix] 40 mg tablet,delayed release (DR/EC) 40 mg PO DAILY Qty: 1 0RF Primary Care Provider: Himanshu Sanchez Referrals: Himanshu Sanchez MD [Primary Care Provider] - 3-5 Days Disposition Disposition: Home, Self Care
--- NOTE | 2022-04-01 22:01 | CT_ITS ---
EXAM: CT HEAD WITHOUT INTRAVENOUS CONTRAST CLINICAL INDICATION: Head injury TECHNIQUE: Multiple axial images were obtained of the head without intravenous contrast. This CT exam was performed using one or more of the following dose reduction techniques: automated exposure control, adjustment of the mA and/or kV according to patient size, and/or use of iterative reconstruction technique. This report was created using [employer] report generation technology. COMPARISON: 02/17/2022 FINDINGS: BRAIN AND EXTRA-AXIAL SPACES: Diffuse cerebral volume loss. Periventricular small vessel ischemic changes. No intra- or extra-axial hemorrhage. No intracranial mass or mass effect. Posterior fossa structures are unremarkable. No hydrocephalus. Basal cisterns are patent. BONES/JOINTS: Unremarkable. No discrete lytic or blastic abnormalities. VASCULATURE: Vascular calcifications. SINUSES: Unremarkable as visualized. Clear. MASTOID AIR CELLS: Unremarkable. Clear. ORBITS: Visualized globes, extraocular muscles, optic nerves and retrobulbar fat appear unremarkable. CT/Brain/Head without Contrast IMPRESSION: 1. No acute intracranial abnormalities. 2. Age-related changes. Electronically Signed: Rico Ayala MD at 23:55 EST ,
[2022-04-01 22:42] LABS: Mucous, Urine 0 SEEN /hpf (<or=2+); Red Blood Cells-Urine 0 SEEN /hpf (0-5)
[2022-04-01 22:54] LABS: Color, Urine Amber (Yellow); Glucose, Dipstick Normal (Normal); Ketone-Dipstick 5 mg/dl (Negative); Leukocyte Esterase-Dipstick 500 /ul (Negative); Nitrite-Dipstick Positive (Negative); Occult Blood-Urine 10 /ul (Negative); Protein-Dipstick 30 mg/dl (Negative); Specific Gravity, Urine 1.025 (1.002-1.030); Urine Clarity Sl. Cloudy (Clear); Urine Urobilinogen 1 mg/dl (Normal)
[2022-04-01 22:56] LABS: Urine Bilirubin Dipstick 1 mg/dL (Negative)
[2022-04-01 23:03] LABS: White Blood Cells 25-50 SEEN /hpf (0-5)
[2022-04-01 23:06] LABS: Bacteria 2+ /hpf (None Seen); Squamous Epithelial Cells - UA 0-5 SEEN /hpf (5-10); Trichomonas 0-5 SEEN /hpf (None Seen)
[2022-04-02 00:06] LABS: Absolute Lymphocyte Count 1.32 X10^3/uL (0.83-4.51); Absolute Neutrophil Count 5.3 X10^3/uL (2.0-7.7); Basophil# 0.02 X10^3/uL; Basophil% 0.3 % (0-1); Eosinophil# 0.08 X10^3/uL; Eosinophils% 1.1 % (0-5); Hematocrit 43.7 % (37-47); Hemoglobin 13.2 g/dL (12.0-15.0); Lymphocyte # 1.32 X10^3/ul (0.83-4.51); Lymphocyte % 17.7 % (19-41); Mean Corp Hgb Conc 30.2 g/dL (32-36); Mean Corpuscular Hgb 31.7 pg (27.0-32.0); Mean Corpuscular Volume 104.8 fL (81-99); Mean Platelet Vol. 11.1 fl (6.2-12.0); Monocyte# 0.73 X10^3/uL; Monocyte% 9.8 % (0-10); NRBC Flagged by Analyzer 0 % (0-5); Neutrophil # 5.29 X10^3/uL (2.7-7.7); Neutrophil % 70.8 % (47-70); Platelet Count 185 K/mm3 (150-450); RBC Distribution Width CV 13.8 % (11.6-14.6); RBC Distribution Width SD 53.9 fl (35.1-43.9); Red Blood Count 4.17 M/mm3 (4.2-5.4); White Blood Count 7.5 K/mm3 (4.4-11.0)
[2022-04-02] MEDS: Smz/Tmp Ds Tablet 1 TABLET PO (00:06)
--- NOTE | 2022-04-02 00:15 | ED.RN ---
Called patient contact Linnea Hancock for a ride home- she did not answer. Pt. knows no other phone numbers. Told patient she would just need to stay here overnight as she cannot find a ride.
[2022-04-02 00:18] LABS: Anion Gap 12 (5-15); BUN 12 mg/dL (7-18); BUN/Creat Ratio 18.1 RATIO (10-20); Calcium,Total 9.4 mg/dL (8.5-10.1); Chloride 110 mmol/L (98-107); Creatinine, Serum 0.66 mg/dL (0.55-1.02); EST Glomerular Filtration Rate 106 mL/min (>60); Est Glom Filt Rate - Afr Amer 128 mL/min (>60); Estimated Creatinine Clearance 113.49 ml/min; Glucose 102 mg/dL (74-106); Potassium 3.3 mmol/L (3.5-5.1); Sodium Level 145 mmol/L (136-145)
[2022-04-02 06:00] VITALS: BP 146/92; PULSE 95; RESP 15; O2SAT 97
[2022-04-02] MEDS: Potassium Chloride Oral Tablet 20 MEQ PO (06:38)
--- NOTE | 2022-04-02 11:18 | ED.RN ---
CONTACTED RICHARD, SHE STATED HER IS NOT HOME WITH THE VEHICLE AT THIS TIME, BUT SHE WILL LET HIM KNOW. UNKNOWN WHEN THEY WILL ARRIVE TO PICK HER UP.
== END 2022-04-02 10:00 | disposition home or self-care (01) ==
PROVIDERS: Emergency Provider Emergency Medicine; PCP Family Medicine; Visit Provider Emergency Medicine
DX: N39.0 Urinary tract infection, site not specified (principal); I10 Essential (primary) hypertension; H53.2 Diplopia; R42 Dizziness and giddiness
CPT/HCPCS: 36415; 70450; 80048; 81001; 85025; 87077; 87086; 87088; 87186; 99283; A4216

== ENCOUNTER 2022-04-06 23:10 | Observation (INO) | payer MEDICAID, SELFPAY ==
[2022-04-06 23:11] VITALS: BP 147/96; PULSE 106; RESP 16; TEMP 36.6; O2SAT 99; BMI 29.2
--- NOTE | 2022-04-06 23:23 | EKG12_ITS ---
Test Reason : NUMB/TINGLING Blood Pressure : / mmHG Vent. Rate : 091 BPM Atrial Rate : 091 BPM P-R Int : 130 ms QRS Dur : 070 ms QT Int : 376 ms P-R-T Axes : 051 017 087 degrees QTc Int : 462 ms Normal sinus rhythm Possible Inferior infarct , age undetermined ST & T wave abnormality, consider lateral ischemia Abnormal ECG Confirmed by SEEMA MONAHAN, BIRD ([id number]), newspaper or periodical editor KG ALLEN ([id number]) on 04/08/2022 10:20:27 AM Referred By: Confirmed By:BIRD STEPHENSON MD
--- NOTE | 2022-04-06 23:24 | EDS_ITS ---
HPI History of Present Illness Chief Complaint: Numb/Ting Informant: patient and EMS Narrative Narrative: Patient presents via EMS secondary to numbness. She states she was sitting watching television tonight when she feels like her whole body went numb. She states has been eating and drinking well lately. No recent changes to her medication. I did note that patient was seen here on 01 April and diagnosed with a UTI. She should currently be on Bactrim. She states has been taking the medication but does not know how much she has left. [facility] Medical History Cognitive dysfunction Debility HTN (hypertension) Morbid obesity Seizure disorder Home Medications ferrous sulfate 325 mg (65 mg iron) tablet 325 mg PO DAILY@0800 supplement 03/17/20 [History Last Taken 03/02/22] gabapentin 300 mg capsule 300 mg PO BID neuropathy #60 caps 04/06/20 [Rx Last Taken 03/02/22] levetiracetam 1,000 mg tablet 1,000 mg PO BID seizures #60 tabs 04/06/20 [Rx Last Taken 03/02/22] topiramate 100 mg tablet 100 mg PO BID #60 tabs 04/06/20 [Rx Last Taken 03/02/22] amlodipine 5 mg tablet 5 mg PO DAILY BP 09/16/21 [History Last Taken 03/02/22] phenobarbital 64.8 mg tablet 64.8 mg PO BID SEIZURES 03/02/22 [History Last Taken 03/02/22] acetaminophen 325 mg tablet (Tylenol) 650 mg PO Q6H PRN PRN Pain 1-10 Or Fever>100.7 #0 tabs 03/09/22 [Rx Last Taken Unknown] cyanocobalamin (vitamin B-12) 500 mcg tablet 1,000 mcg PO BREAKFAST #0 tabs 03/09/22 [Rx Last Taken Unknown] folic acid 1 mg tablet 1 mg PO BREAKFAST #0 tabs 03/09/22 [Rx Last Taken Unknown] menthol 0.44 %-zinc oxide 20.6 % topical ointment (Calmoseptine) 1 applic topical TID #0 grams 03/09/22 [Rx Last Taken Unknown] pantoprazole 40 mg tablet,delayed release (Protonix) 40 mg PO DAILY #1 TAB 03/09/22 [Rx Last Taken Unknown] prednisone 5 mg tablet 5 mg PO UD #240 tabs 03/09/22 [Rx Last Taken Unknown] sennosides 8.6 mg-docusate sodium 50 mg tablet (Stool Softener-Stimulant Laxative) 2 tab PO BID PRN PRN Constipation #0 tabs 03/09/22 [Rx Last Taken Unknown] sucralfate 1 gram tablet 1 g PO 0700,1100,1600 #0 tabs 03/09/22 [Rx Last Taken Unknown] sulfamethoxazole 800 mg-trimethoprim 160 mg tablet 1 tab PO BID #6 TABLETS 04/02/22 [Rx Last Taken Unknown] Allergy/AdvReac Type Severity Reaction Status Date / Time fluconazole Allergy NEEDS Verified 04/06/22 23:11 FOLLOW-UP naproxen Allergy Hives Verified 04/06/22 23:11 Social History household members: significant other, family and children housing: house Smoking Status: Never smoker alcohol intake: never substance use type: does not use ROS ROS ED Constitutional Constitutional ED: Denies chills or fever(s) Eyes Eyes: Denies change in vision or discharge from eye(s) ENT ENT ED: Denies discharge from eye(s), rhinorrhea or sore throat Cardiovascular Cardiovascular: Denies chest pain or palpitations Respiratory/Chest Respiratory/Chest: Denies cough or dyspnea Gastrointestinal Gastrointestinal: Denies abdominal pain, diarrhea, nausea or vomiting Genitourinary Genitourinary ED: Denies difficulty urinating or dysuria Musculoskeletal Musculoskeletal: Denies back pain or extremity pain Integumentary Denies Abrasions or rash Neurologic Neurologic: Reports paresthesias; Denies headache(s) or weakness Psychiatric Psychiatric: Denies anxiety or depression Allergic/Immunologic Allergic/Immunologic ED: Denies lip swelling or urticaria EXAM Physical Exam Const Vital Signs: 04/06/22 23:11 Temperature 97.8 F Temperature Source Temporal Pulse Rate 106 H Respiratory Rate 16 Blood Pressure 147/96 H Blood Pressure Mean 113 Pulse Ox 99 Oxygen Delivery Method Room Air Positive well nourished and well developed General Appearance ED: well developed HEENT Reports normocephalic and head/scalp atraumatic Eyes PERRL and EOMs intact bilaterally Neck supple Chest Wall inspection of chest normal and palpation of chest normal Resp normal respiratory effort and clear to auscultation bilaterally Cardio regular rate and regular rhythm GI normal to inspection, nondistended, normoactive bowel sounds Palpation: soft Extremity normal to inspection Neuro oriented x3 Neuro Narrative: Mild right-sided weakness which is chronic per patient's report. Sensorium / Orientation: alert Psych mental status grossly normal Skin no rashes or lesions noted MDM MDM MDM Narrative Medical decision making narrative: Patient placed on rn cardiac. EKG obtained to evaluate cardiac rhythm. CBC and chemistry studies obtained to evaluate for anemia or electrolyte disturbance. Urinalysis obtained given her recent UTI. Patient given IV fluids. Lab Data Attestation: I reviewed the patient's lab results. Labs: Laboratory Results - last 24 hr 04/06/22 04/06/22 04/07/22 23:40 23:40 00:00 WBC 7.4 RBC 3.99 L Hgb 13.0 Hct 40.4 MCV 101.3 H MCH 32.6 H MCHC 32.2 D RDW Std Deviation 50.3 H RDW Coeff of [place] 13.3 Plt Count 187 MPV 12.0 Immature Gran % (Auto) 0.300 Neut % (Auto) 68.6 Lymph % (Auto) 17.6 L [place] % (Auto) 12.3 H Eos % (Auto) 0.8 Baso % (Auto) 0.4 Absolute Neuts (auto) 5.1 Absolute Lymphs (auto) 1.30 Nucleated RBC % 0 Sodium 140 Potassium 2.6 L* Chloride 107 Carbon Dioxide 23.0 Anion Gap 10 BUN 9 Creatinine 0.84 Estim Creat Clear Calc 89.17 Est GFR (MDRD) Af Amer 97 Est GFR (MDRD) Non-Af 80 BUN/Creatinine Ratio 10.7 Glucose 131 H Calcium 8.9 Total Bilirubin 0.70 Direct Bilirubin 0.23 AST 14 L ALT 23 Alkaline Phosphatase 55 Total Protein 6.6 Albumin 3.7 Globulin 2.9 Urine Color Yellow Urine Clarity Clear Urine pH 6.0 Ur Specific [place] 1.010 Urine Protein 30 H Urine Glucose (UA) Normal Urine Ketones 5 H Urine Occult Blood 10 H Urine Nitrite Negative Urine Bilirubin Negative Urine Urobilinogen 8 H Ur Leukocyte Esterase 500 H Urine RBC 0-5 SEEN Urine WBC 25-50 SEEN Ur Squamous Epith Cells 0 SEEN Urine Bacteria 2+ Urine Mucus 2+ Radiography Diagnostic Testing: Clinical Impression(s) from Imaging Studies Brain CT 04/06/22 23:27 IMPRESSION: No acute intracranial findings. Electronically Signed: Aki Cortez MD at 0:12 EST , EKG Initial EKG: Attestation: I personally reviewed and interpreted this EKG as follows: Interpretation: Sinus Rhythm (Sinus at 91. Nonspecific mild diffuse ST depression, most notable in the lateral precordial leads.) Treatment and Re-Evaluation Narrative: CBC is unremarkable. Chemistry studies significant for potassium low at 2.6. It appears her potassium was in the low 3 range last week. LFTs are unremarkable. Urinalysis continues to show 500 leukocyte esterase, however her nitrites have cleared. She continues to have 25-50 white cells with 2+ bacteria. Patient has been ordered IV potassium replacement. Given her paresthesias and low potassium with weakness I will discuss with hospitalist regarding observation to get her potassium back to normal levels. Discharge Plan Dx/Rx/DC Orders Clinical Impression: Hypokalemia, Paresthesias, UTI (urinary tract infection) Disposition Disposition: Acute Care Hospital [facility]
--- NOTE | 2022-04-06 23:27 | CT_ITS ---
INDICATION: paresthesias EXAMINATION: CT BRAIN - CT Head or Brain W/O Contrast Injection TECHNIQUE: Multiple axial images were obtained of the head without intravenous contrast. A radiation dose optimization technique was used for this scan. IV Contrast dosage and agent: None. COMPARISON: 04/01/2022 FINDINGS: BRAIN PARENCHYMA: No intra- or extra-axial hemorrhage. No evidence of acute infarct. No intracranial mass or mass effect. Stable mild loss with low attenuation of the periventricular white matter typical of chronic small vessel disease. Posterior fossa structures are unremarkable. CSF SPACES: Appropriate for age. No hydrocephalus. Basal cisterns are patent. CALVARIUM, SKULL BASE, PARANASAL SINUSES AND MASTOID AIR CELLS: Scattered mucoperiosteal disease. No discrete lytic or blastic abnormalities. ORBITS: Both globes, extraocular muscles, optic nerves and retrobulbar fat appear unremarkable. CT/Brain/Head without Contrast IMPRESSION: No acute intracranial findings. Electronically Signed: Aki Cortez MD at 0:12 EST ,
[2022-04-06] MEDS: 0.9% Normal Saline 1,000 ML 150 ML IV (23:44)
[2022-04-06 23:46] LABS: Absolute Neutrophil Count 5.1 X10^3/uL (2.0-7.7); Basophil# 0.03 X10^3/uL; Basophil% 0.4 % (0-1); Eosinophil# 0.06 X10^3/uL; Eosinophils% 0.8 % (0-5); Hematocrit 40.4 % (37-47); Lymphocyte % 17.6 % (19-41); Mean Corp Hgb Conc 32.2 g/dL (32-36); Mean Corpuscular Hgb 32.6 pg (27.0-32.0); Mean Corpuscular Volume 101.3 fL (81-99); Monocyte# 0.91 X10^3/uL; Monocyte% 12.3 % (0-10); NRBC Flagged by Analyzer 0 % (0-5); Neutrophil # 5.07 X10^3/uL (2.7-7.7); Neutrophil % 68.6 % (47-70); Platelet Count 187 K/mm3 (150-450); RBC Distribution Width CV 13.3 % (11.6-14.6); RBC Distribution Width SD 50.3 fl (35.1-43.9); Red Blood Count 3.99 M/mm3 (4.2-5.4); White Blood Count 7.4 K/mm3 (4.4-11.0)
[2022-04-07] VITALS (8 sets, daily range): BP systolic 109–154; BP diastolic 60–99; PULSE 88–97; RESP 15–16; TEMP 36.3–36.9; O2SAT 96–100; BMI 27.4
[2022-04-07 00:05] LABS: AST(SGOT) 14 U/L (15-37); Alanine Aminotransfer ALT/SGPT 23 U/L (13-56); Albumin, Serum 3.7 g/dL (3.2-5.0); Alkaline Phosphatase 55 U/L (45-117); Anion Gap 10 (5-15); BUN 9 mg/dL (7-18); BUN/Creat Ratio 10.7 RATIO (10-20); Bilirubin, Direct 0.23 mg/dL (0.00-0.30); Calcium,Total 8.9 mg/dL (8.5-10.1); Chloride 107 mmol/L (98-107); Creatinine, Serum 0.84 mg/dL (0.55-1.02); EST Glomerular Filtration Rate 80 mL/min (>60); Est Glom Filt Rate - Afr Amer 97 mL/min (>60); Estimated Creatinine Clearance 89.17 ml/min; Globulin 2.9 g/dL (2.2-4.2); Glucose 131 mg/dL (74-106); Potassium 2.6 mmol/L (3.5-5.1); Protein, Total 6.6 g/dL (6.4-8.2); Sodium Level 140 mmol/L (136-145)
[2022-04-07 00:11] LABS: Squamous Epithelial Cells - UA 0 SEEN /hpf (5-10)
[2022-04-07 00:12] LABS: Color, Urine Yellow (Yellow); Glucose, Dipstick Normal (Normal); Ketone-Dipstick 5 mg/dl (Negative); Leukocyte Esterase-Dipstick 500 /ul (Negative); Nitrite-Dipstick Negative (Negative); Occult Blood-Urine 10 /ul (Negative); Protein-Dipstick 30 mg/dl (Negative); Urine Bilirubin Dipstick Negative (Negative); Urine Clarity Clear (Clear); Urine Urobilinogen 8 mg/dl (Normal)
[2022-04-07 00:26] LABS: Bacteria 2+ /hpf (None Seen); Mucous, Urine 2+ /hpf (<or=2+); Red Blood Cells-Urine 0-5 SEEN /hpf (0-5); White Blood Cells 25-50 SEEN /hpf (0-5)
[2022-04-07] MEDS: Potassium Chloride 10mEq/100mL 10 MEQ/100 ML IV.SOLN. 100 MEQ IV BOLUS ×4 (00:37→04:17)
--- NOTE | 2022-04-07 01:00 | PCM.HP.STD ---
HPI - General General Date of Admission: 04/07/22 Date of Service: 04/07/22 Chief Complaint: Numbness and tingling HPI Narrative MARY CLAUDIO, is a 36 F with significant history of seizures; right side weakness and cognitive deficits who presents to the emergency department with generalized numbness and tingling sensation. Associated with her symptoms as dizziness which she describes as both vertigo and lightheadedness. Her symptoms started on the same day of presentation. Also she reports weakness. Patient reports that at baseline and occasionally she gets dizzy and weak and her helps her to the bathroom. [facility] Medical History Cognitive dysfunction Debility HTN (hypertension) Morbid obesity Seizure disorder Home Medications ferrous sulfate 325 mg (65 mg iron) tablet 325 mg PO DAILY@0800 supplement 03/17/20 [History Last Taken 03/02/22] gabapentin 300 mg capsule 300 mg PO BID neuropathy #60 caps 04/06/20 [Rx Last Taken 03/02/22] levetiracetam 1,000 mg tablet 1,000 mg PO BID seizures #60 tabs 04/06/20 [Rx Last Taken 03/02/22] topiramate 100 mg tablet 100 mg PO BID #60 tabs 04/06/20 [Rx Last Taken 03/02/22] amlodipine 5 mg tablet 5 mg PO DAILY BP 09/16/21 [History Last Taken 03/02/22] phenobarbital 64.8 mg tablet 64.8 mg PO BID SEIZURES 03/02/22 [History Last Taken 03/02/22] acetaminophen 325 mg tablet (Tylenol) 650 mg PO Q6H PRN PRN Pain 1-10 Or Fever>100.7 #0 tabs 03/09/22 [Rx Last Taken Unknown] cyanocobalamin (vitamin B-12) 500 mcg tablet 1,000 mcg PO BREAKFAST #0 tabs 03/09/22 [Rx Last Taken Unknown] folic acid 1 mg tablet 1 mg PO BREAKFAST #0 tabs 03/09/22 [Rx Last Taken Unknown] menthol 0.44 %-zinc oxide 20.6 % topical ointment (Calmoseptine) 1 applic topical TID #0 grams 03/09/22 [Rx Last Taken Unknown] pantoprazole 40 mg tablet,delayed release (Protonix) 40 mg PO DAILY #1 TAB 03/09/22 [Rx Last Taken Unknown] prednisone 5 mg tablet 5 mg PO UD #240 tabs 03/09/22 [Rx Last Taken Unknown] sennosides 8.6 mg-docusate sodium 50 mg tablet (Stool Softener-Stimulant Laxative) 2 tab PO BID PRN PRN Constipation #0 tabs 03/09/22 [Rx Last Taken Unknown] sucralfate 1 gram tablet 1 g PO 0700,1100,1600 #0 tabs 03/09/22 [Rx Last Taken Unknown] sulfamethoxazole 800 mg-trimethoprim 160 mg tablet 1 tab PO BID #6 TABLETS 04/02/22 [Rx Last Taken Unknown] Allergy/AdvReac Type Severity Reaction Status Date / Time fluconazole Allergy NEEDS Verified 04/06/22 23:11 FOLLOW-UP naproxen Allergy Hives Verified 04/06/22 23:11 Family History (Updated 04/07/22 @ 01:[address] Steven Mullen MD) Other Leukemia no surgical history Social History household members: significant other, family and children housing: house Smoking Status: Never smoker alcohol intake: never substance use type: does not use ROS ROS Narrative Pertinent positives and pertinent negatives as noted in HPI. All other systems were reviewed and are negative Vital Signs Vital Signs Vital Signs: 04/06/22 23:11 Temperature 97.8 F Temperature Source Temporal Pulse Rate 106 H Respiratory Rate 16 Blood Pressure 147/96 H Blood Pressure Mean 113 Pulse Ox 99 Oxygen Delivery Method Room Air Weight Weight: 84.6 kg Body Mass Index (BMI) 29.2 Physical Exam Narrative Physical exam: General: Well-nourished, well-developed. Head: Normocephalic, atraumatic, no tenderness Eyes: Vision is grossly intact. EOMI ENT, no trauma, moist mucous membranes, no rhinorrhea Neck: Nontender, No thyromegaly. CVS: Regular rate and rhythm. S1-S2 present. No murmur, gallop or rub. Respiratory : clear to auscultation bilaterally, chest wall nontender, no wheezing Abdomen: Soft, nontender, nondistended, normal bowel sounds, no masses : Deferred Back: Nontender, no CVA tenderness, no midline spinal tenderness, deformities, step-offs Extremities: Nontender full range of motion, no trauma Skin: Normal color, no trauma, abrasions Neuro: Alert, oriented, cranial nerves II through XII grossly intact. Strength in right upper and right lower extremity 4 out of 5. Strength in left upper and left lower extremity 5 out of 5. Psychiatry: Normal mood. Normal affect. Not depressed. Not anxious. Results Lab / Micro Data Result Diagrams: 04/06/22 23:40 04/06/22 23:40 Labs: Laboratory Results - last 24 hr 04/06/22 23:40: WBC 7.4, RBC 3.99 L, Hgb 13.0, Hct 40.4, MCV 101.3 H, MCH 32.6 H, MCHC 32.2 D, RDW Std Deviation 50.3 H, RDW Coeff of [place] 13.3, Plt Count 187, MPV 12.0, Immature Gran % (Auto) 0.300, Neut % (Auto) 68.6, Lymph % (Auto) 17.6 L, [place] % (Auto) 12.3 H, Eos % (Auto) 0.8, Baso % (Auto) 0.4, Absolute Neuts (auto) 5.1, Absolute Lymphs (auto) 1.30, Nucleated RBC % 0 04/06/22 23:40: Sodium 140, Potassium 2.6 L*, Chloride 107, Carbon Dioxide 23.0, Anion Gap 10, BUN 9, Creatinine 0.84, Estim Creat Clear Calc 89.17, Est GFR (MDRD) Af Amer 97, Est GFR (MDRD) Non-Af 80, BUN/Creatinine Ratio 10.7, Glucose 131 H, Calcium 8.9, Total Bilirubin 0.70, Direct Bilirubin 0.23, AST 14 L, ALT 23, Alkaline Phosphatase 55, Total Protein 6.6, Albumin 3.7, Globulin 2.9 04/07/22 00:00: Urine Color Yellow, Urine Clarity Clear, Urine pH 6.0, Ur Specific [place] 1.010, Urine Protein 30 H, Urine Glucose (UA) Normal, Urine Ketones 5 H, Urine Occult Blood 10 H, Urine Nitrite Negative, Urine Bilirubin Negative, Urine Urobilinogen 8 H, Ur Leukocyte Esterase 500 H, Urine RBC 0-5 SEEN, Urine WBC 25-50 SEEN, Ur Squamous Epith Cells 0 SEEN, Urine Bacteria 2+, Urine Mucus 2+ Radiology Impression Brain CT 04/06/22 23:27 IMPRESSION: No acute intracranial findings. Electronically Signed: Aki Cortez MD at 0:12 EST , Assessment & Plan Assessment/Plan (1) Hypokalemia: (2) Urinary tract infection: (3) Generalized weakness: (4) Numbness and tingling: PLAN: Plan Hypokalemia/numbness and tingling/dizziness Potassium on presentation was 2.6. Trend BMP. EKG showed Q waves in inferior waves; Sinus rhythm. CT brain was visualized and independent interpreted. I agree with the interpretation of no acute intracranial pathology. Observe patient in progressive care unit. Potassium replacements by p.o. and IV. Generalized weakness/ PT and OT to evaluate and treat UTI Home Bactrim continued. DVT prophylaxis Subcutaneous Lovenox ordered. Charges/Coding Visit Charges Inpatient E&M: 03101 Init Hosp L2
[2022-04-07 01:17] LABS: Magnesium 1.6 mg/dL (1.6-2.6)
[2022-04-07] MEDS: Potassium Chloride Oral Tablet 20 MEQ 40 MEQ PO ×3 (03:08→17:32)
[2022-04-07] MEDS: 0.9% Normal Saline 1,000 ML 150 ML IV ×2 (05:31→12:12)
--- NOTE | 2022-04-07 05:54 | NURSING ---
Patient has requested to keep all four side rails up for her safety concern.
[2022-04-07 07:13] LABS: Anion Gap 8 (5-15); BUN 8 mg/dL (7-18); BUN/Creat Ratio 14.4 RATIO (10-20); Chloride 110 mmol/L (98-107); Creatinine, Serum 0.56 mg/dL (0.55-1.02); EST Glomerular Filtration Rate 130 mL/min (>60); Est Glom Filt Rate - Afr Amer 157 mL/min (>60); Estimated Creatinine Clearance 133.76 ml/min; Glucose 96 mg/dL (74-106); Potassium 3.5 mmol/L (3.5-5.1); Sodium Level 140 mmol/L (136-145)
--- NOTE | 2022-04-07 09:40 | RAD_ITS ---
STUDY: X-RAY - LEFT FOOT CLINICAL: Female, 36 years old. PAIN TECHNIQUE: 3 view(s) of the foot. COMPARISON: None. FINDINGS: There is a plantar calcaneal spur. Normal visualized subtalar, talonavicular, calcaneocuboid, tarsal and tarsometatarsal articulations. Normal metatarsi. Normal metatarsophalangeal joint of the great toe. Normal tibial and fibular sesamoid bones. Normal interphalangeal joint of the great toe. Normal phalanges of the great toe. Normal second through fifth metatarsophalangeal joints. Normal interphalangeal joints and phalanges of the lesser toes. Soft tissue swelling. RAD/Foot min 3 Views IMPRESSION: Soft tissue swelling. Plantar spur. Electronically Signed: Bartolo Verma MD at 13:32 EST ,
--- NOTE | 2022-04-07 09:40 | RAD_ITS ---
STUDY: X-RAY - RIGHT FOOT CLINICAL: Female, 36 years old. Foot pain. TECHNIQUE: 3 view(s) of the foot. COMPARISON: None. FINDINGS: Plantar spur. Normal visualized subtalar, talonavicular, calcaneocuboid, tarsal and tarsometatarsal articulations. Normal metatarsi. Normal metatarsophalangeal joint of the great toe. Normal tibial and fibular sesamoid bones. Normal interphalangeal joint of the great toe. Normal phalanges of the great toe. Normal second through fifth metatarsophalangeal joints. Normal interphalangeal joints and phalanges of the lesser toes. Soft tissue swelling. RAD/Foot min 3 Views IMPRESSION: Plantar spur. Soft tissue swelling. Electronically Signed: Bartolo Verma MD at 13:32 EST ,
[2022-04-07] MEDS: Menthol/Lanolin/Calamine/Znox 113 GM Tube 1 APPLIC TOPICAL ×2 (09:50→20:41)
[2022-04-07] MEDS: Acetaminophen 500 MG Tablet 1000 MG PO (09:51)
[2022-04-07] MEDS: 0.9% Saline Lock 10 ML Syringe IV (09:51)
[2022-04-07] MEDS: Enoxaparin 40 MG/0.4 ML Syringe SC (12:18)
--- NOTE | 2022-04-07 12:26 | CASEMGMT ---
SW was informed patient is stating she does not feel safe at home and that she gets called stupid at her home. Patient does have various bruises all over. SW met with patient. Introduced self and role at [facility]. SW asked patient about not feeling safe at home. Patient said her works all day and her kids are at school all day. Patient said she is afraid something will happen to her. SW asked if she feels safe with her and patient stated yes. SW asked about being called stupid at home and patient said, My and I joke around a lot. SW clarified with patient that the reason she does not feel safe at home is because she is alone during the day and patient said yes. SW asked patient if she feels she needs to go to a [facility]. Patient said she thinks that would help. Patient was recently discharged from the [facility], but she could not remember when. Patient went to [facility] and patient said she would be okay with going back to [facility]. SW told her therapy will see her and SW will then work on the referral. Jaycee Steve ASSISTANT ACCOUNT EXECUTIVE LESLIE
--- NOTE | 2022-04-07 12:53 | PCM.HOSP.N ---
Hospitalist Note This is a 36-year-old white female who presented to the emergency department with tingling and numbness all over her body. She has cognitive deficits at baseline and multiple emergency department visits for various complaints. She was recently at [facility] however the dates are unclear at this time. She had associated symptoms on presentation of reported vertigo and lightheadedness and indicated that the symptoms started on the day of presentation. She was diagnosed here with a urinary tract infection and is on antibiotics with Bactrim however she was unclear how much she has left. I did review the culture and sensitivities and the DANIEL was slightly high for Bactrim so I will go ahead and treat her for the full course of Keflex as the DANIEL was better for this because her UA still was suggestive of infection. She was found to be markedly hypokalemic on presentation with a potassium of 2.6. She was aggressively replaced with potassium and on the a.m. of 04/07/2022 her potassium was normalized. On evaluation she was complaining of bilateral foot pain. There is no erythema or swelling. There was some tenderness to palpation but was nonfocal and nonspecific. She states she also had complained of pain in her hand that did not start until she was told her potassium was low. Her hand also appears unremarkable on exam. We did order x-rays and those are currently pending. She did indicate to case management and protective services social worker that she did not feel safe in her home. When they asked more specifics with regards of her not feeling safe she reported that her does call her stupid at home but she reported that she does not feel safe because she is alone during the day as her children go to school and her goes to work. The patient indicated she felt she needed to go to a halfway and was okay with going to [facility] and a referral was sent.
[2022-04-07] MEDS: Cephalexin 500 MG Capsule PO ×2 (14:26→20:41)
--- NOTE | 2022-04-07 14:55 | CASEMGMT ---
ZORAIDA sent referral to [facility] via [facility]. SW also asked CC to start the pre-cert if they are able to take patient. Jaycee NELSON
--- NOTE | 2022-04-07 15:39 | CASEMGMT ---
CHRISS CM in to complete ALLEN form at this time. RN CM explained ALLEN form to patient, patient voiced understanding. Patient signed ALLEN form and filed in chart. Patient provided with copy of signed ALLEN form. Patient had no further questions or concerns at this time.
[2022-04-07] MEDS: Sucralfate 1 GM Tablet PO (17:00)
[2022-04-07] MEDS: MELATONIN 3 MG TABLET PO (20:39)
[2022-04-07] MEDS: Phenobarbital 32.4 MG Tablet 64.8 MG PO (20:39)
[2022-04-07] MEDS: Topiramate 100 MG Tablet PO (20:40)
[2022-04-07] MEDS: Gabapentin 300 MG Capsule PO (20:40)
[2022-04-07] MEDS: levETIRAcetam 1,000 MG Tablet 1000 MG PO (20:41)
[2022-04-08] VITALS (9 sets, daily range): BP systolic 126–153; BP diastolic 77–103; PULSE 90–101; RESP 16–17; TEMP 36.7–36.9; O2SAT 95–99
[2022-04-08] MEDS: Sucralfate 1 GM Tablet PO ×3 (05:49→17:02)
[2022-04-08] MEDS: Cephalexin 500 MG Capsule PO ×3 (05:50→22:17)
[2022-04-08 09:50] LABS: Anion Gap 6 (5-15); BUN 4 mg/dL (7-18); BUN/Creat Ratio 6.9 RATIO (10-20); Calcium,Total 8.7 mg/dL (8.5-10.1); Chloride 111 mmol/L (98-107); Creatinine, Serum 0.58 mg/dL (0.55-1.02); EST Glomerular Filtration Rate 125 mL/min (>60); Est Glom Filt Rate - Afr Amer 151 mL/min (>60); Estimated Creatinine Clearance 129.14 ml/min; Glucose 80 mg/dL (74-106); Potassium 4.4 mmol/L (3.5-5.1); Sodium Level 139 mmol/L (136-145)
--- NOTE | 2022-04-08 10:43 | CASEMGMT ---
SW received a [facility] due to financial risks. ZORAIDA called Vonnie at [facility] and asked her to explain. Vonnie said that due to patient's previous stay they are concerned that patient will get there and not want to leave. Patient would then have a patient liability to pay and they would not be able to get that money as patient's would not pay. SW met with patient. SW provided patient with a list of custodial facility?providers including quality and resource use data and consistent with patient?s preferred geographic region, medical needs, and insurance network [facility]. Patient wanted to stay in [place] so SW will send referrals to [facility] as those are the only other two facilities that take patient's insurance that are in [place]. Referrals sent to [facility] [place] via [facility]. Jaycee Steve RECRUITMENT SPECIALIST LESLIE
[2022-04-08] MEDS: Enoxaparin 40 MG/0.4 ML Syringe SC (11:09)
[2022-04-08] MEDS: Pantoprazole Sodium 40 MG Tablet PO (11:09)
[2022-04-08] MEDS: Ferrous Sulfate 325 MG Tablet PO (11:09)
[2022-04-08] MEDS: Potassium Chloride Oral Tablet 20 MEQ 40 MEQ PO ×2 (11:09→17:02)
[2022-04-08] MEDS: Gabapentin 300 MG Capsule PO ×2 (11:10→22:17)
[2022-04-08] MEDS: Folic Acid 1 MG Tablet PO (11:10)
[2022-04-08] MEDS: predniSONE 20 MG Tablet PO (11:10)
[2022-04-08] MEDS: Topiramate 100 MG Tablet PO ×2 (11:10→22:17)
[2022-04-08] MEDS: levETIRAcetam 1,000 MG Tablet 1000 MG PO ×2 (11:10→22:17)
[2022-04-08] MEDS: Phenobarbital 32.4 MG Tablet 64.8 MG PO ×2 (11:10→22:17)
[2022-04-08] MEDS: amLODIPine 5 MG Tablet PO (11:15)
--- NOTE | 2022-04-08 11:36 | CASEMGMT ---
ZORAIDA spoke with Alberta decker [place] answering her questions regarding patient. When a referral has been sent for a patient under a certain age it has to be sent to their corporate to review. Await response. Jaycee Steve IOS SOFTWARE ENGINEER LESLIE
--- NOTE | 2022-04-08 15:03 | PCM.PN.HOSP ---
Reason for Visit Reason for Visit: Diagnoses Hypokalemia Debility Subjective Subjective Patient denies any foot pain today. She states that she ordered her breakfast and now does not want a bagel and eggs and wants to change her order. Asks me if I will help her with this. Later in the day was reevaluated by physical therapy and has ongoing needs however placement is not required. Discussed with case folder/family welfare social work professor and she will likely need home health however we are unable to get this set up over the weekend. She will likely be here till Monday. Objective Data Objective Data Vital Signs: Vital Signs Temp Pulse Resp BP Pulse Ox O2 Del Method 98.1 F 101 H 16 143/97 H 99 Room Air 04/08/22 14:14 04/08/22 14:14 04/08/22 14:14 04/08/22 14:14 04/08/22 14:14 04/08/22 14:14 Oxygen Delivery Method Room Air Weight: 79.5 kg Body Mass Index (BMI) 27.4 Intake & Output: Intake and Output for Last 24 Hours 04/06/22 04/07/22 04/08/22 23:59 23:59 23:59 Intake Total 4367.5 / 4367.5 240 / 240 Balance 4367.5 / 4367.5 240 / 240 Lab / Micro Data Result Diagrams: 04/06/22 23:40 04/08/22 09:24 Labs: Laboratory Results - last 24 hr 04/08/22 09:24: Sodium 139, Potassium 4.4, Chloride 111 H, Carbon Dioxide 22.0, Anion Gap 6, BUN 4 L, Creatinine 0.58, Estim Creat Clear Calc 129.14, Est GFR (MDRD) Af Amer 151, Est GFR (MDRD) Non-Af 125, BUN/Creatinine Ratio 6.9 L, Glucose 80, Calcium 8.7 Physical Exam Const alert, oriented x3, no apparent distress and well nourished Constitutional Narrative: Overweight, middle-aged, white female, sitting up in bed, patient seems to have cognitive impairment at baseline HEENT head/scalp atraumatic and moist oral mucous membranes HEENT Narrative: Dentition is good, Mallampati is 3, no thrush Head and Scalp: normocephalic Resp normal respiratory effort, no retractions, no use of accessory muscles and clear to auscultation bilaterally Auscultation: crackles, rhonchi and wheezes Cardio regular rate, regular rhythm, S1 normal heart sound, S2 normal heart sound, no murmurs, no rub, no gallops and no clicks GI normal to inspection, nondistended, normoactive bowel sounds, soft to palpation and non-tender Extremity no clubbing, cyanosis or edema Extremity Narrative: 2+ pedal pulses, no tenderness by palpation to bilateral feet today Skin Skin Narrative: Bottom is excoriated Neuro oriented x3, CN's II-XII intact bilaterally, moves all extremities, no focal motor deficits and no sensory deficits noted Speech: speech normal Psych Psych Narrative: Extremely flat, somewhat childlike Assessment & Plan Assessment/Plan (1) Numbness and tingling: (2) Generalized weakness: (3) Urinary tract infection: (4) Hypokalemia: PLAN: Plan Paresthesias/generalized weakness -paresthesias have all resolved -CT done on admission was unremarkable -Patient with multiple, intermittent somatic complaints that are hard to follow -Continue PT/OT -Sitter further outpatient work-up with neurology after discharge if persistent -Patient does have documented history of bilateral neuropathy Bilateral foot pain -X-rays were unremarkable for any bony tissue abnormalities -Resolved today and patient had no pain with firm palpation of bilateral feet in any direction Hypokalemia -Resolved Urinary incontinence -Seems to be voluntary -Patient does not notify nursing and sits in urine without telling anybody -Seems to be psychologically mediated Urinary tract infection--> 2 different species of E. coli -Was on Bactrim however UA still appears to be infected -Organism was sensitive to Bactrim however the DANIEL was high -We will change to Keflex for 3 days--> day 2 of 3 -Both species are sensitive to the same organisms Hypertension -Continue home amlodipine Seizure disorder -Continue home Keppra -Continue home phenobarbital -Continue home Topamax Neuropathy -Continue home gabapentin GERD -continue home PPI by -Continue home Carafate DVT prophylaxis -Continue enoxaparin 40 mg daily CODE STATUS Full code Disposition: Patient not appropriate for prison facility however she is unable to go home without any assistance. Will at least need home health and we are have been unable to find anything thus far therefore she will need to stay until we can arrange for this as unless her clinical situation improves dramatically. Suspect large psychological component in conjunction with baseline cognitive debility. Charges/Coding Visit Charges Inpatient E&M: 56498 Subs Hosp L2
--- NOTE | 2022-04-08 15:31 | CASEMGMT ---
SW received notification that [facility] will take patient. Therapy saw patient and she did walk 70 feet, however patient had an odd gait and was unsteady. SW is concerned that patient's debility is behavioral. SW does not feel that custodial is necessarily appropriate for patient. SW met with patient and introduced self again as patient did not recognize SW. SW asked patient about going home as therapy said she walked down the barber. Patient said she doesn't know if she can. Patient said she was unsteady with the walker. Patient was childlike in how she spoke with SW and would not look at SW. Patient's spoke as if she were a child. Patient does have cognitive delay diagnosis. Patient would trip the screen as SW would have to do a PASRR due to patient being observation status. Patient would trip the screen due to her seizure disorder and cognitive delay. Patient would have to stay in the hospital until Board of DD evaluated patient. This often takes a week or more. Given that ZORAIDA does not feel SNF is the appropriate plan this would be unnecessary and delay discharge. ZORAIDA feels patient should maybe try going home with home health. SW contacted [facility] and they did not set patient up with home health as patient's did not want anyone in their home. ZORAIDA called Board of DD to see if patient is or was active with them and she was not. SW will call patient's to see if there is help for patient at home or if home health can be arranged. Jaycee Steve MSW LESLIE
--- NOTE | 2022-04-08 16:21 | CASEMGMT ---
SW called patient's on a phone number SW found on a previous visit. The number no longer belongs to patient's . SW will talk with patient to obtain a correct number. SW will also monitor how patient continues to do with therapy. Patient has many social issues and has discharge needs. However, at this time SW is not sure what the appropriate plan is. Jaycee Steve LEAD MASON TENDER pipe organ installer
--- NOTE | 2022-04-08 19:38 | CASEMGMT ---
SW Note Informant: Patient and Chart Review SW met with patient in her room. SW introduced self and role. Patient said that she is at the hospital for a seizure. Patient is . Living Situation: Patient resides in a home with her and 4 sons, Jose age 16, Pool age 10 and Cherie age 9. Patient's children attend [employer] schools. Patient denied anyone else resided in the house when specifically asked if anyone else lives there. Support: Patient said that she has no one who lives with us that is a support. SW asked if there was anyone else that was a support and patient said but reports if I start talking to him he'll start having a bad day and I don't want him to so I keep it to myself. Education and Employment: Patient reports she graduated [employer] school. Patient was born in [place]. SW asked if patient had any learning issues or IEP and patient said I don't know. SW asked if patient is employed and patient said I get SSI. SW asked why patient gets SSI and patient said she is on disability . SW asked why patient receives disability and patient said seizure problems. Mental Health: Patient said that she has never been to a counselor or therapist. Patient denied having a lining caser. Patient reports no psych hospitalization. Patient stated she has no psychiatrist. SW asked about any mental health issues and patient said I have depression problem. SW asked what a depression problems looks like for her and patient said I am always down. Patient said that she is sad all the time. SW asked patient if she has ever been on medication for depression and she said no. SW asked patient if she thought that medication may help and patient said maybe. SW asked patient if her doctor knew about her depression and patient said I think he knows about it. Triggers and Stressors: Patient reports that her stressor is the whole hospital thing.. I don't like being here.. I miss my kids. Coping Skills: Playing on phone and watching TV. When SW entered the room patient was playing on her phone. Abuse Issue: Patient denied any physical, sexual or emotional abuse. SW asked patient if she is safe at home and she said yes. Patient said that her Jose does not hurt her. Patient stated if he hits me I will kick his ass and tell him to get the hell out. SW asked patient if she ever hit Jose and asked him to leave and she said he never hit me. Patient said if he did anything wrong if my mom was alive she would tell him to stop it and kick his ass. Patient said that her mom would kick his ass because of what he is putting me through and SW asked what Jose is putting her through and she said seizures. Patient said that her mom when she was 16 from leukemia. Patient has a pillow with her father's face on it in the bed and reported he is also. Substance Abuse: Patient denied SW asked patient if she thought a counselor would be helpful and she said I don't know. SW asked patient if she thought a psychiatrist would be helpful and she said I don't know. SW asked what patient feels would be helpful and patient said I don't know.. I feel lost. Patient said they are trying to get me into a skilled nursing that is so close to my and kids as my doesn't drive and it's hard for me. Patient said I still can't walk good.. was walking good before ended up here. SW asked what patient does at home and patient said I watch TV with my and social work job titles asked patient what she does when her is not there and she said I watch TV by myself. Patient said it scares me because what happens if I have a seizure and sometimes I have stare seizures. SW asked patient if she is linked with Board of DD and she said what is DD? and social work job titles explained this to patient and she said no she is not involved with DD. Patient stated she is linked with [facility] and when asked why she said I can't remember. Patient said that her goes to work from 5am till 2pm. SW asked where her works and patient said I can't remember. SW asked what patient's does and patient said I don't remember. Patient denied being suicidal and denied any previous suicide attempts. Patient denied homicidal ideation. Patient denied violence to self, others or objects. SW again asked patient about talking to a counselor and patient immediately responded by stating see I have a walker over there. Patient said that her sleep is ok. SW asked if patient wakes up during the night and patient said that she wakes up to go to the bathroom and then goes back to sleep. Patient said that she does not know how many hours of sleep she gets at night. Patient said but when I am here they put me in depends and subsequently she is not getting up during the night. SW asked patient about AH/VH. Patient said I hear myself and I talk to myself.. I know it's weird but I answer my own questions. SW asked patient what the voices say and she said why are the kids crazy and why are they nuts and out of control. Sw asked where patient is hearing the voices and patient said inside and outside her head. Unit SW to follow as needed for discharge planning.
[2022-04-08] MEDS: Menthol/Lanolin/Calamine/Znox 113 GM Tube 1 APPLIC TOPICAL (22:17)
[2022-04-09 03:28] VITALS: BP 151/105; PULSE 95; RESP 14; TEMP 36.5; O2SAT 99
[2022-04-09] MEDS: Cephalexin 500 MG Capsule PO ×2 (05:37→13:47)
[2022-04-09] MEDS: Sucralfate 1 GM Tablet PO ×2 (05:37→10:50)
[2022-04-09 07:27] VITALS: O2SAT 97
[2022-04-09 09:09] VITALS: BP 134/96; PULSE 89; RESP 16; TEMP 36.8; O2SAT 98
[2022-04-09] MEDS: Topiramate 100 MG Tablet PO (09:17)
[2022-04-09] MEDS: amLODIPine 5 MG Tablet PO (09:18)
[2022-04-09] MEDS: Pantoprazole Sodium 40 MG Tablet PO (09:18)
[2022-04-09] MEDS: Folic Acid 1 MG Tablet PO (09:19)
[2022-04-09] MEDS: Ferrous Sulfate 325 MG Tablet PO (09:19)
[2022-04-09] MEDS: Enoxaparin 40 MG/0.4 ML Syringe SC (09:19)
[2022-04-09] MEDS: predniSONE 20 MG Tablet PO (09:20)
[2022-04-09] MEDS: Potassium Chloride Oral Tablet 20 MEQ 40 MEQ PO (09:20)
[2022-04-09] MEDS: Menthol/Lanolin/Calamine/Znox 113 GM Tube 1 APPLIC TOPICAL (09:20)
[2022-04-09] MEDS: levETIRAcetam 1,000 MG Tablet 1000 MG PO (09:21)
[2022-04-09] MEDS: Phenobarbital 32.4 MG Tablet 64.8 MG PO (09:25)
[2022-04-09] MEDS: Gabapentin 300 MG Capsule PO (09:25)
[2022-04-09 09:30] VITALS: PULSE 90
--- NOTE | 2022-04-09 11:16 | DCINST_ITS ---
Discharge Instructions Diet Discharge Diet: No restrictions Activity Discharge Activity: Return to Normal Activity Weight Bearing Status: Full weight bearing Follow Up Care Test Results: Test results from this visit will be discussed in further detail at your follow- up appointment, if applicable. Discharge Plan Admission Admit Date/Time: 04/07/22 00:51 Primary Reason for Your Visit: low potassium Attending Provider: Schuyler Coates Primary Care Provider: Himanshu Sanchez Consulting Providers: Steven Mullen ; Awa Massey Discharge Orders/Prescriptions Prescriptions: Continued ferrous sulfate 325 MG tablet 325 mg PO DAILY@0800 gabapentin 300 MG capsule 300 mg PO BID Qty: 60 0RF levetiracetam 1,000 MG tablet 1,000 mg PO BID Qty: 60 0RF amlodipine 5 mg tablet 5 mg PO DAILY phenobarbital 64.8 mg tablet 64.8 mg PO BID Label Comments: TAKE ONE (1) TABLET BY MOUTH TWICE DAILY sennosides-docusate sodium [Stool Softener-Stimulant Laxat] 8.6-50 mg Tablet 2 tab PO BID PRN PRN (Reason: Constipation) Qty: 0 0RF menthol-zinc oxide [Calmoseptine] 0.44-20.6 % Ointment 1 applic topical TID Qty: 0 0RF Protocol: *Topical Application Instructions APPLICATION INSTRUCTIONS: buttocks cyanocobalamin (vitamin B-12) 500 mcg Tablet 1,000 mcg PO BREAKFAST Qty: 0 0RF acetaminophen [Tylenol] 325 mg Tablet 650 mg PO Q6H PRN PRN (Reason: Pain 1-10 Or Fever>100.7) Qty: 0 0RF ferrous sulfate [FeroSul] 325 mg (65 mg iron) tablet sucralfate 1 gram tablet 1 g PO 0700,1100,1600 sulfamethoxazole-trimethoprim 800-160 mg tablet 1 tab PO BID pantoprazole [Protonix] 40 mg tablet,delayed release (DR/EC) 40 mg PO DAILY folic acid 1 mg tablet 1 mg PO BREAKFAST topiramate 100 MG tablet 100 mg PO BID Discontinued prednisone 5 mg tablet prednisone 5 mg tablet 5 mg PO UD Rx Instructions: 40 mg p.o. daily x1 week then 35 mg p.o. daily x1 week then 30 mg p.o. daily x1 week then 30 mg p.o. daily x1 week then 25 mg p.o. daily x1 week then 20 mg p.o. daily x1 week then 15 mg p.o. daily x1 week then 10 mg p.o. daily x1 week then 5 mg daily Referrals / Follow Up: Himanshu Sanchez MD [Primary Care Provider] - Within 1 Week Disposition Disposition (needs filled in before D/C Order can be placed): Home, Self Care
--- NOTE | 2022-04-09 11:33 | PCM.DC.SUM ---
Providers Date of Admission: 04/07/22 Date of Discharge: 04/09/22 Primary Care Physician: Dr. Himanshu Sanchez MD Reason For Visit: ACUTE HYPOKALEMIA Diagnosis Discharge Diagnosis (1) Numbness and tingling: Status: Acute Code(s): R20.0 - Anesthesia of skin; R20.2 - Paresthesia of skin (2) Generalized weakness: Status: Acute Code(s): R53.1 - Weakness (3) Urinary tract infection: Status: Acute Code(s): N39.0 - Urinary tract infection, site not specified (4) Hypokalemia: Status: Acute Code(s): E87.6 - Hypokalemia Plan 1. Generalized weakness-etiology unclear #2 hypokalemia-etiology unclear #3 seizure disorder #4 noncompliance with home medications due to lack of assistance with administering her home medications #5 cognitive impairment-etiology unclear, not felt to be secondary to dementia, possibly secondary to psychosocial reasons #6 cystitis with E. coli-present on admission Medications at Discharge Home Medications ferrous sulfate 325 mg (65 mg iron) tablet 325 mg PO DAILY@0800 supplement 03/17/20 gabapentin 300 mg capsule 300 mg PO BID neuropathy #60 caps 04/06/20 levetiracetam 1,000 mg tablet 1,000 mg PO BID seizures #60 tabs 04/06/20 amlodipine 5 mg tablet 5 mg PO DAILY BP 09/16/21 phenobarbital 64.8 mg tablet 64.8 mg PO BID SEIZURES 03/02/22 acetaminophen 325 mg tablet (Tylenol) 650 mg PO Q6H PRN PRN Pain 1-10 Or Fever>100.7 #0 tabs 03/09/22 cyanocobalamin (vitamin B-12) 500 mcg tablet 1,000 mcg PO BREAKFAST #0 tabs 03/09/22 menthol 0.44 %-zinc oxide 20.6 % topical ointment (Calmoseptine) 1 applic topical TID #0 grams 03/09/22 sennosides 8.6 mg-docusate sodium 50 mg tablet (Stool Softener-Stimulant Laxative) 2 tab PO BID PRN PRN Constipation #0 tabs 03/09/22 ferrous sulfate 325 mg (65 mg iron) tablet (FeroSul) mg 04/07/22 folic acid 1 mg tablet 1 mg PO BREAKFAST supplement 04/07/22 pantoprazole 40 mg tablet,delayed release (Protonix) 40 mg PO DAILY GI 04/07/22 sucralfate 1 gram tablet 1 g PO 0700,1100,1600 GI 04/07/22 sulfamethoxazole 800 mg-trimethoprim 160 mg tablet 1 tab PO BID antibiotic 04/07/22 topiramate 100 mg tablet 100 mg PO BID seizures 04/07/22 Hospital Course Operations None Procedures None Summary of Care Provided Minutes Spent on Discharge: 31 Hospital Course: This 36-year-old white female was seen in the emergency room at [facility] secondary to complaints of whole body numbness patient lives with her and children, furthermore according to the patient's contact center representative (her friend) the patient's 's girlfriend also lives with them. According to this friend of the patient, the patient's provides no assistance with patient's medications so it is unknown whether the patient actually even takes her medications appropriately. Patient had been seen in the emergency room on April 01 and was placed on Bactrim DS for urinary tract infection. Labs obtained in the emergency room during this admission revealed the patient's potassium to be low at 2.6, patient's CBC was unremarkable, patient's urinalysis showed 25-50 WBCs and +[address] was performed and it showed no acute intracranial findings. Patient was placed in observation status on PCU, she was seen by PT and OT, she appeared to have some cognitive impairment either from medical reasons or psychological reasons. Patient initially did not want to go home, she was given supplemental potassium and her potassium corrected without incident. I contacted the patient's PCP and was told that the patient had not been seen in the PCPs office in more than a year. On 04/09/2022, I talked with the patient and she decided that she would rather go home rather than go to an extended care facility. Contact was made by dialysis social worker with the patient's , contact was also made with the patient's friend's who would pick her up at the hospital at the time of her discharge on 04/09/2022. Patient was seen and examined on 04/09/2022: On examination she appeared older than her stated age, she exhibited evidence of cognitive impairment with almost a childlike attitude, she does not appear to be in any distress. Vital signs as documented. Skin warm and dry and without overt rashes. Neck without JVD, thyroid appears normal, trachea is midline, neck is supple. Lungs clear, normal air movement was noted. Heart exam notable for regular rhythm, normal sounds and absence of murmurs, rubs or gallops. Abdomen unremarkable and without evidence of organomegaly, masses, or abdominal aortic enlargement, bowel sounds are present in all 4 quadrants, no abdominal tenderness was noted. Extremities nonedematous, no cyanosis was noted, no clubbing was noted. Neuro: Cranial nerves II through XII are grossly intact, no focal motor deficits were noted, sensation to light touch and pinprick is intact, motor exam 5/5 throughout. Psych: Patient is alert and oriented x3, she does not appear anxious or depressed, she does not appear agitated. Patient was felt to be stable for discharge home on 04/09/2022. It was recommended that she follow-up with her PCP for further care. Weight / BMI Weight Weight: 79.5 kg Body Mass Index (BMI) 27.4 ABG / Lab / Microbiology Data Result Diagrams: 04/06/22 23:40 04/08/22 09:24 D/C Instructions Discharge Diet: No restrictions Weight Bearing Status: Full weight bearing Meaningful Use Info Meaningful Use Diagnoses (Choose all that apply): None applicable Discharge Plan Admission Admit Date/Time: 04/07/22 00:51 Primary Reason for Your Visit: low potassium Attending Provider: Schuyler Coates Primary Care Provider: Himanshu Sanchez Consulting Providers: Steven Mullen ; Awa Massey Discharge Orders/Prescriptions Prescriptions: Continued ferrous sulfate 325 MG tablet 325 mg PO DAILY@0800 gabapentin 300 MG capsule 300 mg PO BID Qty: 60 0RF levetiracetam 1,000 MG tablet 1,000 mg PO BID Qty: 60 0RF amlodipine 5 mg tablet 5 mg PO DAILY phenobarbital 64.8 mg tablet 64.8 mg PO BID Label Comments: TAKE ONE (1) TABLET BY MOUTH TWICE DAILY sennosides-docusate sodium [Stool Softener-Stimulant Laxat] 8.6-50 mg Tablet 2 tab PO BID PRN PRN (Reason: Constipation) Qty: 0 0RF menthol-zinc oxide [Calmoseptine] 0.44-20.6 % Ointment 1 applic topical TID Qty: 0 0RF Protocol: *Topical Application Instructions APPLICATION INSTRUCTIONS: buttocks cyanocobalamin (vitamin B-12) 500 mcg Tablet 1,000 mcg PO BREAKFAST Qty: 0 0RF acetaminophen [Tylenol] 325 mg Tablet 650 mg PO Q6H PRN PRN (Reason: Pain 1-10 Or Fever>100.7) Qty: 0 0RF ferrous sulfate [FeroSul] 325 mg (65 mg iron) tablet sucralfate 1 gram tablet 1 g PO 0700,1100,1600 sulfamethoxazole-trimethoprim 800-160 mg tablet 1 tab PO BID pantoprazole [Protonix] 40 mg tablet,delayed release (DR/EC) 40 mg PO DAILY folic acid 1 mg tablet 1 mg PO BREAKFAST topiramate 100 MG tablet 100 mg PO BID Discontinued prednisone 5 mg tablet prednisone 5 mg tablet 5 mg PO UD Rx Instructions: 40 mg p.o. daily x1 week then 35 mg p.o. daily x1 week then 30 mg p.o. daily x1 week then 30 mg p.o. daily x1 week then 25 mg p.o. daily x1 week then 20 mg p.o. daily x1 week then 15 mg p.o. daily x1 week then 10 mg p.o. daily x1 week then 5 mg daily Referrals / Follow Up: Himanshu Sanchez MD [Primary Care Provider] - Within 1 Week Disposition Disposition (needs filled in before D/C Order can be placed): Home, Self Care Charges/Coding Visit Charges Inpatient E&M: 55701 Disch Hosp >30min
--- NOTE | 2022-04-09 12:31 | CASEMGMT ---
Addendum entered by Jammie Gross 04/09/22 14:16: SW went back to room and inquired about patient's coming to get her. Patient said that her does not drive. SW asked how patient was getting home and she said that her was working on it. Patient said 'the doctor hasn't said anything yet regarding discharge however, the MD had advised that patient was being discharged. Patient provided this customs entry writer with her 's phone number [phone]. SW called Jsoe, patient's . He was advised that patient was going home today. Jose said that she his concern was that he works and patient would be home alone but then voiced he could talk to his neighbor, Linnea, and she could check on her during the day. ZORAIDA discussed the importance of patient being med compliant and Jose said that he reminds patient to take her medication. SW discussed putting alarm on the phone. Jose asked about a phone number for a wheelchair place that you gave me.. I didn't know the name of the place and I wrote it on a ad and I think I threw it away. Of note, patient does not have a medical diagnosis requiring a wheelchair. ZORAIDA provided patient's , Jose with the phone number to [employer]. ZORAIDA called Jose back and said that patient is discharged. Jose said that Linnea's can come to the hospital to mushroom picker patient. ZORAIDA advised that counseling services including case management are available through [facility] and SW asked Jose if he had any thoughts regarding counseling and he was receptive to counseling. ZORAIDA also updated Jose as to the location of the counseling center. Jose said that patient's ride would be there in 15-30 minutes . SW provided patient with [facility] resource list that included phone number for the crisis line as well as counseling center. SW wrote address for the counseling center on the [facility] resource list and also wrote that patient could do walk in appointment. breastfeeding program coordinator updated. Plan: Resources provided Jammie Ginny BEREKET CANDE Original Note: SW met with patient. Patient said I got good news. SW asked what the good news was and patient said I get to go home. Patient said that she was trying to call her but he was at work. Patient denied any linda symptoms. Patient was asked about counseling and patient said that she has been depressed ever since my mom . SW advised that the patient may benefit from support from a counselor. Patient then stated that this customs entry writer could call [facility] to see about an appointment. ZORAIDA called childcare worker production metal sprayer, Lexy, and she is unable to make D/A appointments however she indicated patient could call in and walk in anytime for an assessment. ZORAIDA believes that patient would benefit from casemanagement, psychiatric services and counseling which the counseling center provides. ZORAIDA provided patient with resource list from [facility]. ZORAIDA met with patient and advised that the counseling center takes walk in appointments. SW educated patient on location and address of counseling center. SW asked patient about her concern regarding her being at home alone and having a seizure and patient said that she didn't know. SW asked if patient is med compliant and patient said that she forgets her medication. Patient was encouraged to set alarm to remind her to take her medicine and patient said i forget to set my alarm. SW offered to call patient's and patient said his voice mail is not set up. Jammie CASTELLON
[2022-04-09 13:42] VITALS: BP 137/85; PULSE 99; RESP 102; TEMP 36.2
--- NOTE | 2022-04-09 17:03 | NURSING ---
1100 Dr Acosta notified of questionable abd mass left abd, he reported to the nurse later he had examined the pt and did not find anything.
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
== END 2022-04-09 11:32 | disposition home or self-care (01) ==
LOC: ED 04-07 00:22 → PCU 04-07 01:15
PROVIDERS: Internal Medicine; Admitting Provider Hospitalist; Emergency Provider Emergency Medicine; PCP Family Medicine; Visit Provider Internal Medicine
DX: R20.2 Paresthesia of skin (principal); G40.909 Epilepsy, unspecified, not intractable, without status epilepticus; N30.00 Acute cystitis without hematuria; M79.671 Pain in right foot; R42 Dizziness and giddiness; I10 Essential (primary) hypertension; M79.672 Pain in left foot; R53.1 Weakness; E87.6 Hypokalemia; R20.0 Anesthesia of skin; B96.20 Unspecified Escherichia coli [E. coli] as the cause of diseases classified elsewhere; Z79.899 Other long term (current) drug therapy
CPT/HCPCS: J7030 ×2; 36415; 70450; 73630; 80048; 80076; 81001; 83735; 84133; 85025; 93005; 96361; 96365; 96366; 96372; 97162; 97166; 97530; 97535; 97802; 99221; 99285; J7040; A4216; G0378

== ENCOUNTER 2022-04-10 13:01 | Emergency (ER) | payer MEDICAID, SELFPAY ==
[2022-04-10 13:02] VITALS: BP 148/108; PULSE 99; RESP 16; TEMP 36.6; O2SAT 100; BMI 27.6
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
[2022-04-10 14:33] LABS: Absolute Lymphocyte Count 1.19 X10^3/uL (0.83-4.51); Absolute Neutrophil Count 4.7 X10^3/uL (2.0-7.7); Basophil# 0.01 X10^3/uL; Basophil% 0.2 % (0-1); Eosinophil# 0.17 X10^3/uL; Eosinophils% 2.6 % (0-5); Hematocrit 44.6 % (37-47); Lymphocyte # 1.19 X10^3/ul (0.83-4.51); Lymphocyte % 17.9 % (19-41); Mean Corp Hgb Conc 31.4 g/dL (32-36); Mean Corpuscular Hgb 31.7 pg (27.0-32.0); Mean Corpuscular Volume 101.1 fL (81-99); Monocyte# 0.57 X10^3/uL; Monocyte% 8.6 % (0-10); NRBC Flagged by Analyzer 0 % (0-5); Neutrophil % 70.4 % (47-70); Platelet Count 135 K/mm3 (150-450); RBC Distribution Width CV 13.2 % (11.6-14.6); RBC Distribution Width SD 49.6 fl (35.1-43.9); Red Blood Count 4.41 M/mm3 (4.2-5.4); White Blood Count 6.7 K/mm3 (4.4-11.0)
[2022-04-10 14:49] LABS: Anion Gap 6 (5-15); BUN 4 mg/dL (7-18); BUN/Creat Ratio 6.6 RATIO (10-20); Calcium,Total 8.8 mg/dL (8.5-10.1); Chloride 109 mmol/L (98-107); EST Glomerular Filtration Rate 118 mL/min (>60); Est Glom Filt Rate - Afr Amer 143 mL/min (>60); Estimated Creatinine Clearance 124.84 ml/min; Glucose 95 mg/dL (74-106); Magnesium 1.6 mg/dL (1.6-2.6); Potassium 5.4 mmol/L (3.5-5.1); Sodium Level 138 mmol/L (136-145)
[2022-04-10 15:26] VITALS: BP 125/74; PULSE 62; RESP 15; O2SAT 96
== END 2022-04-10 15:27 | disposition home or self-care (01) ==
PROVIDERS: Emergency Provider Emergency Medicine; PCP Family Medicine; Visit Provider Emergency Medicine
DX: R20.2 Paresthesia of skin (principal); G40.909 Epilepsy, unspecified, not intractable, without status epilepticus; I10 Essential (primary) hypertension; Z87.891 Personal history of nicotine dependence; Z79.899 Other long term (current) drug therapy
CPT/HCPCS: 80048; 83735; 85025; 99285; A4216

== ENCOUNTER 2022-04-12 16:58 | Emergency (ER) | payer MEDICAID, SELFPAY ==
[2022-04-12 17:00] VITALS: BP 143/103; PULSE 93; TEMP 36.8; O2SAT 99; BMI 28.8
--- NOTE | 2022-04-12 17:40 | EX.ED.DYSGE1 ---
HPI History of Present Illness Chief Complaint: Weakness Informant: patient Narrative Narrative: Patient presented by EMS at home today reporting weakness and paresthesias. Of note was seen by myself 2 days ago. Prior that was admitted for 2 days for similar symptoms along with findings of hypokalemia at that time potassium 2.6 which resolved upon discharge. 2 days ago potassium was normal. Concerns for psychosomatic issues with the patient. Patient lives with her who has a girlfriend. She has 4 children in the home. She states since being home she just been laying on the couch. States her brings her food and she can set up to eat. She does not go to the bathroom she states she goes to the bathroom in her adult diaper. She is reporting continued paresthesia for 2 days however during discussion she states that resolved upon arrival to the ED. She presents again reporting she wants admitted to a nursing facility. Denies any cough or urinary symptoms. Note patient was discharged using a walker, from therapy notes she needed encouragement for therapy. Prior similar symptoms: Yes PFSH PFSH Medical History Cognitive dysfunction Debility HTN (hypertension) Hypokalemia Morbid obesity Paresthesias Seizure disorder Urinary tract infection UTI (urinary tract infection) Home Medications ferrous sulfate 325 mg (65 mg iron) tablet 325 mg PO DAILY@0800 supplement 03/17/20 [History Last Taken 03/02/22] gabapentin 300 mg capsule 300 mg PO BID neuropathy #60 caps 04/06/20 [Rx Last Taken 03/02/22] levetiracetam 1,000 mg tablet 1,000 mg PO BID seizures #60 tabs 04/06/20 [Rx Last Taken 03/02/22] amlodipine 5 mg tablet 5 mg PO DAILY BP 09/16/21 [History Last Taken 03/02/22] phenobarbital 64.8 mg tablet 64.8 mg PO BID SEIZURES 03/02/22 [History Last Taken 03/02/22] acetaminophen 325 mg tablet (Tylenol) 650 mg PO Q6H PRN PRN Pain 1-10 Or Fever>100.7 #0 tabs 03/09/22 [Rx Last Taken Unknown] cyanocobalamin (vitamin B-12) 500 mcg tablet 1,000 mcg PO BREAKFAST #0 tabs 03/09/22 [Rx Last Taken Unknown] menthol 0.44 %-zinc oxide 20.6 % topical ointment (Calmoseptine) 1 applic topical TID #0 grams 03/09/22 [Rx Last Taken Unknown] sennosides 8.6 mg-docusate sodium 50 mg tablet (Stool Softener-Stimulant Laxative) 2 tab PO BID PRN PRN Constipation #0 tabs 03/09/22 [Rx Last Taken Unknown] ferrous sulfate 325 mg (65 mg iron) tablet (FeroSul) mg 04/07/22 [History Last Taken Unknown] folic acid 1 mg tablet 1 mg PO BREAKFAST supplement 04/07/22 [History Last Taken Unknown] pantoprazole 40 mg tablet,delayed release (Protonix) 40 mg PO DAILY GI 04/07/22 [History Last Taken Unknown] sucralfate 1 gram tablet 1 g PO 0700,1100,1600 GI 04/07/22 [History Last Taken Unknown] sulfamethoxazole 800 mg-trimethoprim 160 mg tablet 1 tab PO BID antibiotic 04/07/22 [History Last Taken Unknown] topiramate 100 mg tablet 100 mg PO BID seizures 04/07/22 [History Last Taken Unknown] Allergy/AdvReac Type Severity Reaction Status Date / Time fluconazole Allergy NEEDS Verified 04/10/22 13:05 FOLLOW-UP naproxen Allergy Hives Verified 04/10/22 13:05 Family History Other Leukemia Social History household members: significant other, family and children housing: house Smoking Status: Former smoker alcohol intake: never substance use type: does not use ROS ROS ED Constitutional Constitutional ED: Denies chills, fever(s) or sweats Eyes Eyes: Denies change in vision ENT ENT ED: Denies dysphagia or sore throat Cardiovascular Cardiovascular: Denies chest pain, leg edema, palpitations or racing heartbeat Respiratory/Chest Respiratory/Chest: Denies cough, dyspnea or dyspnea on exertion Gastrointestinal Gastrointestinal: Denies abdominal pain, diarrhea, nausea or vomiting Genitourinary Genitourinary ED: Denies dysuria, hematuria or urinary frequency Musculoskeletal Musculoskeletal: Denies back pain, extremity pain or neck pain Integumentary Denies rash or wounds Neurologic Neurologic: Reports weakness; Denies headache(s) or paresthesias EXAM Physical Exam Const Vital Signs: 04/12/22 17:00 04/12/22 17:04 04/12/22 19:40 Temperature 98.2 F Temperature Source Temporal Pulse Rate 93 100 Respiratory Rate 16 Respiratory Pattern Normal Blood Pressure 143/103 H 157/98 H Blood Pressure Mean 116 117 Pulse Ox 99 98 Oxygen Delivery Method Room Air Room Air Positive well nourished and well developed General Appearance ED: well developed and NAD HEENT Reports moist mucous membranes normocephalic and atraumatic Eyes PERRL, EOMs intact bilaterally and conjunctivae normal General Eye ED: Yes normal appearance of both eyes Neck no lymphadenopathy and supple General: Negative for tenderness Chest Wall Chest: Negative for tenderness Resp normal respiratory effort and normal air movement Effort and Inspection: symmetric chest movement; Negative for respiratory distress Cardio regular rate, regular rhythm and no murmurs Peripheral Pulses: pulses 2+ throughout GI normal to inspection, nondistended, normoactive bowel sounds and non-tender Palpation: Negative for guarding or rebound tenderness present Back/Spine no CVA tenderness and no thoracic nor lumbar tenderness Extremity normal to inspection General Extremety ED: Negative for edema or tenderness General Extremity: Negative for edema Neuro oriented x3, CN's II-XII intact bilaterally and no sensory deficits noted Neuro Narrative: Moving all 4 extremities, no sensory deficits. Sensorium / Orientation: awake and alert Skin no rashes or lesions noted and no wounds MDM MDM MDM Narrative Medical decision making narrative: Interventions / MDM: Differential diagnosis: Weakness, developmental delay, somatization Diagnosis considered but do not suspect: N/A My EKG interpretation: N/A Imaging independently reviewed and interpreted by myself: N/A External documents reviewed: N/A Test considered but not ordered:N/A ED course: Patient seen by myself 2 days ago. Extensive discussion and review of records them. Reported paresthesias then that was not there presently. On discussion states paresthesias again resolved upon presentation to the ED. She is moving all extremities. Patient has multiple recurrent returns to the ED. Initial order for labs which unable to obtain by nursing initially. I had case management evaluate the patient and her recent visits. They also agree she does not warrant any inpatient management, they will reach out to developmental delay department who can send out nursing to evaluate the patient at home. They report that this department can potentially evaluate him and feel she needs placement somewhere they have additional resources. They will also discuss with CPS due to patient having 4 children at home to make sure appropriate care is being given at home. Re-evaluation: stable. Discussed with patient if she would like labs checked again however she declines. She is discharged home. Disposition discussed with patient/family/significant other: Patient Case discussed with consulting clinician: N/A Discharge Plan Triage Chief Complaint: Weakness ED Provider: Jose Brown Dx/Rx/DC Orders Clinical Impression: Weakness, Hx of seizure disorder, Paresthesia, Developmental delay, mild Instructions: ED Weakness (Uncertain Cause), ED Paraesthesias Prescriptions: No Action ferrous sulfate 325 MG tablet 325 mg PO DAILY@0800 gabapentin 300 MG capsule 300 mg PO BID Qty: 60 0RF levetiracetam 1,000 MG tablet 1,000 mg PO BID Qty: 60 0RF amlodipine 5 mg tablet 5 mg PO DAILY phenobarbital 64.8 mg tablet 64.8 mg PO BID Label Comments: TAKE ONE (1) TABLET BY MOUTH TWICE DAILY sennosides-docusate sodium [Stool Softener-Stimulant Laxat] 8.6-50 mg Tablet 2 tab PO BID PRN PRN (Reason: Constipation) Qty: 0 0RF menthol-zinc oxide [Calmoseptine] 0.44-20.6 % Ointment 1 applic topical TID Qty: 0 0RF Protocol: *Topical Application Instructions APPLICATION INSTRUCTIONS: buttocks cyanocobalamin (vitamin B-12) 500 mcg Tablet 1,000 mcg PO BREAKFAST Qty: 0 0RF acetaminophen [Tylenol] 325 mg Tablet 650 mg PO Q6H PRN PRN (Reason: Pain 1-10 Or Fever>100.7) Qty: 0 0RF ferrous sulfate [FeroSul] 325 mg (65 mg iron) tablet sucralfate 1 gram tablet 1 g PO 0700,1100,1600 sulfamethoxazole-trimethoprim 800-160 mg tablet 1 tab PO BID pantoprazole [Protonix] 40 mg tablet,delayed release (DR/EC) 40 mg PO DAILY folic acid 1 mg tablet 1 mg PO BREAKFAST topiramate 100 MG tablet 100 mg PO BID Primary Care Provider: Himanshu Sanchez Referrals: Himanshu Sanchez MD [Primary Care Provider] - 3-5 Days Disposition Disposition: Home, Self Care Discharge Date/Time: 04/12/22 19:45
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
[2022-04-12 19:40] VITALS: BP 157/98; PULSE 100; RESP 16; O2SAT 98
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
--- NOTE | 2022-04-14 16:03 | CM.ED ---
Addendum entered and electronically signed by Maye Sorensen 04/14/22 17:42: Received call and message from Katia Westbrook at Board of DD ([phone], extension [phone]) indicating that would be sending police to patient's home to do a welfare check. This song writer called Katia back, but received voicemail. Left this song writer's number and ED SW number in case needed. For continuity of care, handoff to ED SW Jammie Zamora in case of future ED presentation. cathy Original Note: Social Work - ED Per handoff from Erika NELSON, the patient verbally agreeable for referral to Board of DD. Referral to Katia at Service and Support office ([phone]) to help with determination whether patient may be eligible for services through the Board of DD. For continuity of care brief patient history provided, including notation in patient history section of the EMR indicating patient with seizure disorder since the age of 1 or 2 (so before the age of 21), hypoplastic brain, and cognitive dysfunction. Noted concerns about limited support for patient and looking to establish any services which may be of help to the patient. Katia reports will call patient to get some further information. -CANDE James, TOUR COORDINATOR
== END 2022-04-12 19:45 | disposition home or self-care (01) ==
PROVIDERS: Emergency Provider Emergency Medicine; PCP Family Medicine; Visit Provider Emergency Medicine
DX: R53.1 Weakness (principal); I10 Essential (primary) hypertension; R62.50 Unspecified lack of expected normal physiological development in childhood; R20.2 Paresthesia of skin; Z86.69 Personal history of other diseases of the nervous system and sense organs; Z87.891 Personal history of nicotine dependence
CPT/HCPCS: 99284

== ENCOUNTER 2022-04-14 17:33 | Observation (INO) | payer MEDICAID, SELFPAY ==
[2022-04-14 17:34] VITALS: BP 148/96; PULSE 79; RESP 15; TEMP 36.4; O2SAT 99; BMI 28.2
--- NOTE | 2022-04-14 18:06 | EDS_ITS ---
HPI History of Present Illness Chief Complaint: Weakness Detail of Chief Complaint: Failure to thrive. Covered in feces and urine. Informant: patient Onset/Context/Timing Onset: Days Context: Gradual Onset Timing: Continuous Current Severity: Mild Maximum Severity: Mild Narrative Narrative: 36-year-old female history of cognitive dysfunction, hypertension, seizure prior GI bleed. She has been seen here multiple times in the last 2 months. She was just admitted within the last 10 days for hypokalemia. She was seen in the last 24 hours. Basically returns police did a adult check at her home she was lying on her couch covered in urine and feces. They called the squad and had her brou ght in. She has presented this way several times. There are a lot of social situations that are being evaluated in home. She is also been referred to the adult developmental delay board. Children services also involved because her 3- 4 children at home. Reportedly she is and does live in the home also. She denies any complaints. Prior similar symptoms: Yes Recent Illness/Hospitalization: Yes [facility] Medical History Cognitive dysfunction Debility HTN (hypertension) Hypokalemia Morbid obesity Paresthesias Seizure disorder Urinary tract infection UTI (urinary tract infection) Home Medications ferrous sulfate 325 mg (65 mg iron) tablet 325 mg PO DAILY@0800 supplement 03/17/20 [History Last Taken 03/02/22] gabapentin 300 mg capsule 300 mg PO BID neuropathy #60 caps 04/06/20 [Rx Last Taken 03/02/22] levetiracetam 1,000 mg tablet 1,000 mg PO BID seizures #60 tabs 04/06/20 [Rx Last Taken 03/02/22] amlodipine 5 mg tablet 10 mg PO DAILY BP 09/16/21 [History Last Taken 03/02/22] phenobarbital 64.8 mg tablet 64.8 mg PO BID SEIZURES 03/02/22 [History Last Taken 03/02/22] acetaminophen 325 mg tablet (Tylenol) 650 mg PO Q6H PRN PRN Pain 1-10 Or Fever>100.7 #0 tabs 03/09/22 [Rx Last Taken Unknown] cyanocobalamin (vitamin B-12) 500 mcg tablet 1,000 mcg PO BREAKFAST #0 tabs 03/09/22 [Rx Last Taken Unknown] menthol 0.44 %-zinc oxide 20.6 % topical ointment (Calmoseptine) 1 applic topical TID #0 grams 03/09/22 [Rx Last Taken Unknown] sennosides 8.6 mg-docusate sodium 50 mg tablet (Stool Softener-Stimulant Laxative) 2 tab PO BID PRN PRN Constipation #0 tabs 03/09/22 [Rx Last Taken Unknown] ferrous sulfate 325 mg (65 mg iron) tablet (FeroSul) mg 04/07/22 [History Last Taken Unknown] folic acid 1 mg tablet 1 mg PO BREAKFAST supplement 04/07/22 [History Last Taken Unknown] pantoprazole 40 mg tablet,delayed release (Protonix) 40 mg PO DAILY GI 04/07/22 [History Last Taken Unknown] sucralfate 1 gram tablet 1 g PO 0700,1100,1600 GI 04/07/22 [History Last Taken Unknown] sulfamethoxazole 800 mg-trimethoprim 160 mg tablet 1 tab PO BID antibiotic 04/07/22 [History Last Taken Unknown] topiramate 100 mg tablet 100 mg PO BID seizures 04/07/22 [History Last Taken Unknown] Allergy/AdvReac Type Severity Reaction Status Date / Time fluconazole Allergy NEEDS Verified 04/10/22 13:05 FOLLOW-UP naproxen Allergy Hives Verified 04/10/22 13:05 Family History Other Leukemia Social History household members: significant other, family and children housing: house Smoking Status: Former smoker alcohol intake: never substance use type: does not use ROS ROS ED ROS Narrative Denies. Review of Systems ROS Unobtainable: Denies due to encephalopathy Constitutional Constitutional ED: Denies chills or fever(s) Eyes Eyes: Denies blurry vision ENT ENT ED: Denies ear pain Cardiovascular Cardiovascular: Denies chest pain Respiratory/Chest Respiratory/Chest: Denies cough or dyspnea Gastrointestinal Gastrointestinal: Denies abdominal pain Genitourinary Genitourinary ED: Denies dysuria or hematuria Musculoskeletal Musculoskeletal: Denies arthralgias Integumentary Denies abscess Neurologic Neurologic: Denies headache(s) Psychiatric Psychiatric: Denies anxiety Endocrine Endocrinology: Denies cold intolerance Hematologic/Lymphatic Hematologic/Lymphatic: Reports none Allergic/Immunologic Allergic/Immunologic ED: Denies mouth swelling, tongue swelling or urticaria EXAM Physical Exam Narrative Exam Narrative: Well-appearing 36-year-old female. Vital signs are stable afebrile. Pulse ox 99% room air no signs hypoxia. She is in no distress. She sitting upright in bed. Nurses have cleaned her off reportedly she presented covered in urine and feces. H EENT exam unremarkable atraumatic. Neck nontender no lymphadenopathy. Lungs clear to auscultation bilaterally. Heart regular rhythm no murmur. Abdomen soft nontender. Normal bowel sounds no peritoneal signs. Moving all 4 extremities. Nontender no deformity. 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 Normal dorsi plantarflexion. Back nontender. Neurologically she is awake and alert. Answering questions and following commands. Const Vital Signs: 04/14/22 17:34 04/14/22 17:42 04/14/22 19:34 Temperature 97.6 F L Temperature Source Temporal Pulse Rate 79 Respiratory Rate 15 16 Respiratory Effort Normal Non-Labored Respiratory Pattern Normal Blood Pressure 148/96 H Blood Pressure Mean 113 Pulse Ox 99 Oxygen Delivery Method Room Air 04/14/22 21:00 Temperature Temperature Source Pulse Rate 77 Respiratory Rate 16 Respiratory Effort Respiratory Pattern Blood Pressure 135/77 H Blood Pressure Mean 96 Pulse Ox 98 Oxygen Delivery Method Room Air Positive well nourished, well developed, obese and unkempt; Negative for cachectic or contractures General Appearance ED: unkempt, well developed and NAD; Negative for cachectic, contractures, cyanotic, diaphoretic or pallor Nutritional Appearance: obese; Negative for cachectic HEENT Reports moist mucous membranes; Denies dry mucous membranes Negative for trauma or tenderness Mouth ED: No dry mucous membranes Mouth: No dry mucous membranes Eyes PERRL and EOMs intact bilaterally General Eye ED: Negative for pale conjunctiva or scleral icterus Neck no lymphadenopathy, supple and no JVD General: Negative for tenderness Lymph Lymphatic: Negative for other Chest Wall inspection of chest normal and palpation of chest normal Chest: Negative for other Resp normal respiratory effort and clear to auscultation bilaterally Effort and Inspection: Negative for retractions Auscultation: Negative for rales, rhonchi or wheezes Cardio regular rate, regular rhythm, S1 normal heart sound, S2 normal heart sound and no murmurs Palpation: Negative for palpable S3 Rate: Negative for bradycardia Rhythm: Negative for abnormal rhythm GI normal to inspection, nondistended, normoactive bowel sounds, non-tender, non- distended and no masses Inspection: Negative for abdominal distention Auscultation: normoactive bowel sounds Palpation: soft; Negative for tender or guarding Back/Spine no CVA tenderness General Back: Negative for CVA tenderness Cervical Spine: Negative for cervical spine tenderness Thoracic Spine / Upper Back: Negative for thoracic spinal tenderness Extremity normal to inspection General Extremety ED: Negative for edema or tenderness General Extremity: Negative for edema Neuro oriented x3 and CN's II-XII intact bilaterally Sensorium / Orientation: alert; Negative for orientation impaired, lethargic or stuporous Motor Exam: strength 5/5 throughout Psych mental status grossly normal Appearance: unkempt Attitude: No agitated Mood & Affect: Negative for depressed, anxious or tearful Skin no rashes or lesions noted and no wounds General Skin Exam: elasticity normal; Negative for jaundice or pallor Lesions: No lesion noted Rashes: No rashes noted Trauma: Negative for abrasion Wounds: Negative for wounds noted MDM MDM MDM Narrative Medical decision making narrative: 36-year-old female presents uncapped covered in feces and urine. She has had this presentation multiple times. There are multiple issues being investigated in the home including children services and Adult Protective Services. Her exam is benign. She will be evaluated again by manager social seen her in the past. Screening labs are being obtained. She has had recent CAT scans of the brain that were unremarkable and labs that were unremarkable. Multiple repeat exams the last being at 11 PM. Patient resting comfortably. Our social workers evaluated her. She believes she can get her accepted to a mental health facility. There is really no reason to admit her medically. These are all social issues and possibly psychiatric issues. There may be a component of MRDD. That will all need to be worked out. She will remain in the emergency department overnight. Currently she is just resting comfortably in bed. She will be turned over to the overnight physician who really does not have to do anything for her at this time. And manager social will reengage with this patient in the morning. Lab Data Attestation: I reviewed the patient's lab results. Lab results narrative: CBC shows a white count 6.8. H&H 14 and 46. Platelets 174. Electrolytes potassium low at 3.3. Gap is 13 normal BUN and creatinine. Glucose 96. COVID test negative. Tox screen is negative other than barbiturates. Labs: Laboratory Results - last 24 hr 04/14/22 04/14/22 04/14/22 18:25 18:25 22:30 WBC 6.8 RBC 4.58 Hgb 14.6 Hct 46.4 MCV 101.3 H MCH 31.9 MCHC 31.5 L RDW Std Deviation 48.3 H RDW Coeff of [place] 13.0 Plt Count 174 MPV 12.2 H Immature Gran % (Auto) 0.300 Neut % (Auto) 69.6 Lymph % (Auto) 16.5 L [place] % (Auto) 10.6 H Eos % (Auto) 2.6 Baso % (Auto) 0.4 Absolute Neuts (auto) 4.7 Absolute Lymphs (auto) 1.12 Nucleated RBC % 0 Sodium 144 Potassium 3.3 L Chloride 108 H Carbon Dioxide 23.0 Anion Gap 13 BUN 14 Creatinine 0.73 Estim Creat Clear Calc 102.61 Est GFR (MDRD) Af Amer 115 Est GFR (MDRD) Non-Af 95 BUN/Creatinine Ratio 19.3 Glucose 96 Calcium 9.4 Urine Opiates Screen NEGATIVE Urine Methadone Screen NEGATIVE Ur Barbiturates Screen POSITIVE H Ur Phencyclidine Scrn NEGATIVE Ur Amphetamines Screen NEGATIVE MDMA (Ecstasy) Screen NEGATIVE U Benzodiazepines Scrn NEGATIVE Urine Cocaine Screen NEGATIVE U Cannabinoids Screen NEGATIVE Ur Drug Screen Comment Discharge Plan Triage Chief Complaint: Weakness ED Provider: Padilla Huerta Dx/Rx/DC Orders Clinical Impression: Adult failure to thrive, Psychiatric illness, Cognitive dysfunction Prescriptions: No Action ferrous sulfate 325 MG tablet 325 mg PO DAILY@0800 gabapentin 300 MG capsule 300 mg PO BID Qty: 60 0RF levetiracetam 1,000 MG tablet 1,000 mg PO BID Qty: 60 0RF amlodipine 5 mg tablet 10 mg PO DAILY phenobarbital 64.8 mg tablet 64.8 mg PO BID Label Comments: TAKE ONE (1) TABLET BY MOUTH TWICE DAILY sennosides-docusate sodium [Stool Softener-Stimulant Laxat] 8.6-50 mg Tablet 2 tab PO BID PRN PRN (Reason: Constipation) Qty: 0 0RF menthol-zinc oxide [Calmoseptine] 0.44-20.6 % Ointment 1 applic topical TID Qty: 0 0RF Protocol: *Topical Application Instructions APPLICATION INSTRUCTIONS: buttocks cyanocobalamin (vitamin B-12) 500 mcg Tablet 1,000 mcg PO BREAKFAST Qty: 0 0RF acetaminophen [Tylenol] 325 mg Tablet 650 mg PO Q6H PRN PRN (Reason: Pain 1-10 Or Fever>100.7) Qty: 0 0RF ferrous sulfate [FeroSul] 325 mg (65 mg iron) tablet sucralfate 1 gram tablet 1 g PO 0700,1100,1600 sulfamethoxazole-trimethoprim 800-160 mg tablet 1 tab PO BID pantoprazole [Protonix] 40 mg tablet,delayed release (DR/EC) 40 mg PO DAILY folic acid 1 mg tablet 1 mg PO BREAKFAST topiramate 100 MG tablet 100 mg PO BID Primary Care Provider: Himanshu Sanchez Referrals: Himanshu Sanchez MD [Primary Care Provider] -
[2022-04-14 18:36] LABS: Absolute Lymphocyte Count 1.12 X10^3/uL (0.83-4.51); Absolute Neutrophil Count 4.7 X10^3/uL (2.0-7.7); Basophil# 0.03 X10^3/uL; Basophil% 0.4 % (0-1); Eosinophil# 0.18 X10^3/uL; Eosinophils% 2.6 % (0-5); Hematocrit 46.4 % (37-47); Hemoglobin 14.6 g/dL (12.0-15.0); Lymphocyte # 1.12 X10^3/ul (0.83-4.51); Lymphocyte % 16.5 % (19-41); Mean Corp Hgb Conc 31.5 g/dL (32-36); Mean Corpuscular Hgb 31.9 pg (27.0-32.0); Mean Corpuscular Volume 101.3 fL (81-99); Mean Platelet Vol. 12.2 fl (6.2-12.0); Monocyte# 0.72 X10^3/uL; Monocyte% 10.6 % (0-10); NRBC Flagged by Analyzer 0 % (0-5); Neutrophil # 4.73 X10^3/uL (2.7-7.7); Neutrophil % 69.6 % (47-70); Platelet Count 174 K/mm3 (150-450); RBC Distribution Width SD 48.3 fl (35.1-43.9); Red Blood Count 4.58 M/mm3 (4.2-5.4); White Blood Count 6.8 K/mm3 (4.4-11.0)
[2022-04-14 18:49] LABS: Anion Gap 13 (5-15); BUN 14 mg/dL (7-18); BUN/Creat Ratio 19.3 RATIO (10-20); Calcium,Total 9.4 mg/dL (8.5-10.1); Chloride 108 mmol/L (98-107); Creatinine, Serum 0.73 mg/dL (0.55-1.02); EST Glomerular Filtration Rate 95 mL/min (>60); Est Glom Filt Rate - Afr Amer 115 mL/min (>60); Estimated Creatinine Clearance 102.61 ml/min; Glucose 96 mg/dL (74-106); Potassium 3.3 mmol/L (3.5-5.1); Sodium Level 144 mmol/L (136-145)
--- NOTE | 2022-04-14 19:10 | CM.ED ---
SW Note Informant: Chart review and patient Patient was seen by this securities underwriter, in the acute unit, on 04/08 and 04/09/22. On 04/10 she came back to the ED related to weakness and on 04/12/22 she came back to the ED again for weakness. On this date patient presents to the ED in the paper scrubs that were given to her on 04/12/22 and per nursing was covered from head to toe in feces and urine. Chief Complaint: Patient said that she is weak in my legs and subsequently came into the ED. Patient said that the reference data expert came to her house and they assisted her to the bathroom and she almost collapsed and thus EMS was called and patient came to the ED. SW asked why the police were called and patient said I don't know. Patient voiced that she is experiencing stress as my is cheating and I am afraid I will lose my kids. SW asked if there is an open CPS case and patient said I don't know. SW asked patient what she wants from the hospital and patient said help as much as you can. SW asked what help patient wants and patient said I don't know. SW asked patient what happened when she was at home and patient said I don't know. SW asked patient who is caring for their children when patient is at home sitting in her urine and feces and patient said that her is caring for the children. Patient was recently discharged from local SNF. SW asked why patient was at local SNF and patient said help me I guess. Patient is .Patient reports that she is from [place] but moved to [place] and have moved to [place] even prior to her oldest child being born. Living Situation: Patient resides with her and 4 children. Patient voiced that her has his girlfriend, Sheba, living in the home. Patient said that Jose met her on facebook I guess. Patient said that Sheba and Jose had been talking on the phone. SW asked how long Sheba has been living with them and patient said she is staying with us. SW asked how long Sheba has been at the house and patient said I don't know. SW asked when Sheba started staying with them and inquired if it was one week ago, a couple weeks ago or a couple of months ago and patient said a couple of weeks ago. Patient said that she knew that Jose and Sheba were together as she asked Jose, her , to bring the bed downstairs and patient said he ignored me about the bed. Patient said that Jose is having sex with Sheba in our bed. Patient said that Jose said that he is engaged to Sheba. SW asked if patient and Jose are and she said yes. SW asked if Jose has spoken about a divorce and patient said no but then said I told him I wouldn't pay for it. Patient said that she wants Sheba out of the house. SW asked who takes care of the children and patient said my . SW asked about where are the kids when Sheba and Jose are together and patient said that when the children are in bed. SW asked how patient and Jose's relationship was before he had a girlfriend and she said good. Patient voiced that the kids like Sheba. Patient said she had no clue why they liked Sheba. Support and Resources: nobody History: None Education and Employment: Patient graduated from [employer]. She was in special education classes. Patient reports she gets SSI for seizures. Patient reports she is compliant with her seizure medication . Mental Health Treatment: Patient reports that she has never had any mental health treatment. SW provided her resources last week on counseling. Patient said that she has been depressed since her mom , when she was 16 years old. Triggers and Stressors: Patient reports that her stressors are Jose and his girlfriend, Sheba. Patient said that the police said that there are warrants out for Sheba so she will be out of the house soon. Coping Skills: watch TV, play on phone Abuse Issues: Patient reports she is safe and no one is physically harming her. SW asked if anybody is sexually harming her or making her do things she does not want to do and she said no. SW asked about if anyone is making her spend money that she doesn't want and she said no. SW asked who pays the bills. Patient said that they have metro housing and they have food stamps for groceries. Patient reports she pays the electric bills. SW asked about any other bills and patient said I don't think we have any other bills. Patient was asked about credit cards and patient said that she has credit cards but she doesn't pay the bills. Patient was asked about cars and patient said that Jose does not drive so they do not have any bills related to cars. Substance Abuse: Patient said I will be honest with you.. I used to smoke weed. Patient said that she has not used marijuana for a couple of months. Patient denied any other drug or alcohol use. Risk to Self: Patient denied any previous suicide attempt. Patient said that she has suicidal thoughts every now and then.. I think everyone does. Patient denied any intent and rated her intent as a 1 on scale of 1 being low and 10 being high. Patient reports she is not currently suicidal. Patient reports no plans regarding suicide. Patient denied Homicidal Ideation including thoughts, plans or attempts. Violence: Denied violence to self, others and objects. Orientation: Patient knows where she is at, year, her name but did not know the president stating I don't keep up with that shit. Appearance: Disheveled. Unclean. Patient presented to ED in same paper scrubs given to her on 04/12 and was covered in urine and feces. Mood and affect: Patient voiced that she is depressed and has been depressed. Affect is flat Communication: Patient responds with I don't know alot throughout the assessment. After awhile patient did answer more questions. Thought process: Patient denied AH/VH but SW noted that patient often looked off to the side of this securities underwriter. When asked about this patient said I am trying to look at you. General Intellectual Functioning: Below Average. Patient called this securities underwriter a weiwaqas garrett then said your a social weirdo and repeatedly called this securities underwriter that. Patient appears very childlike in her presentation. Patient appears to have developmental delays. [facility] has made referral to Board of DD for assessment of eligibility based on her epilepsy beginning at age 2-3. Judgement: Impaired Insight: Impaired Patient was evaluated by physical therapy last week and they believe that patient can walk however, but voices she can't. Patient is unable to care for herself as evidenced by her lack of self care and making poor decisions regarding her personal safety. Patient acknowledges the stress and when she came to the ED earlier this week she said that she came due to weakness and got tired of sleeping on the couch, as Jose and girlfriend are upstairs in the bed. Patient does appear to be cognitively delayed and [facility] has made referral to [facility] Board of DD. ZORAIDA has also made referral to [facility] regarding the care of the children in the home. Patient voices she is depressed and has been since I was 16. Thus, due to patient current presentation it is this securities underwriter's belief that patient could benefit from inpatient psych for crisis stabilization and med management. ZORAIDA consulted with MD Huerta who agreed with this recommendation. Plan: Inpatient psych Jammie CASTELLON
[2022-04-14 19:34] VITALS: RESP 16
--- NOTE | 2022-04-14 19:54 | CM.ED ---
ZORAIDA called Katia Westbrook at [employer] DD ([phone], extension [phone])
--- NOTE | 2022-04-14 19:56 | CM.ED ---
ZORAIDA called Katia Westbrook at Board of ([phone], extension [phone]) and left voice mail message that patient presented to the ED and we are waiting for psych placement for patient. ZORAIDA left call back number. ZORAIDA called supervisor chlorine liquefaction at [facility] and spoke to Hayley Tolentino and made report regarding patient's presentation to the ED. Jammie CASTELLON
[2022-04-14 21:00] VITALS: BP 135/77; PULSE 77; RESP 16; O2SAT 98
--- NOTE | 2022-04-14 21:25 | CM.ED ---
SW Note SW was advised by RN that patient had bowel movement in her bed and patient needed to be cleaned up by staff. Jammie NELSON
--- NOTE | 2022-04-14 21:39 | CM.ED ---
SW Note ZORAIDA called [facility] and spoke to Chanel about patient having a bowel movement in bed and staff needing to clean her up. Chanel said that patient would be declined due to acuity. SW updated MD Huerta. Plan is for admission to acute. SW spoke to patient about her not being able to go to the bathroom independently will be a barrier to psych. Patient said I can go to the bathroom but my leg hurts by my stomach. SW explained that patient will need to get up and move around to get some movement in her leg and build up the muscle. Patient said so I am not going to that place? and child protective services social worker explained that her having a bowel movement in bed and the staff cleaning her up is not what psych facilities do as part of their treatment. Patient appeared to be somewhat down that she was not going to psychiatric facility. ZORAIDA called [facility]. No answer. Jammie CASTELLON
--- NOTE | 2022-04-14 22:01 | CM.ED ---
ZORAIDA went back in the room and explained to patient that this auto service writer had called [facility]. Patient said when the police came the kids weren't even there. ZORAIDA discussed the concern of her inability to care for the children as she is laying on the couch in urine and feces. Patient said if I get my leg strength up can I go to the place in [place]?. ZORAIDA advised that this auto service writer can not make that decision however, patient will need to walk and go to the bathroom by herself. Patient then asked for her phone. ZORAIDA called Rafia at [facility]. ZORAIDA explained situation. There is possibility that patient could go to [facility] if she needs the higher level of care however [facility] has no [facility] beds for females currently however, there will be discharges tomorrow. Rafia advised to fax the referral. ZORAIDA faxed the referral to [facility]. Update in the daily report. Jammie NELSON
[2022-04-14 22:50] LABS: Amphetamine Urine VISTA NEGATIVE (<1000 ng/mL); Barbiturate Urine VISTA POSITIVE (< 200 ng/mL); Benzodiazepine Urine VISTA NEGATIVE (< 200 ng/mL); Cocaine Urine VISTA NEGATIVE (< 300 ng/mL); Ecstacy Urine VISTA NEGATIVE (< 500 ng/mL); Methadone Urine VISTA NEGATIVE (< 300 ng/mL); PCP Urine VISTA NEGATIVE (< 25 ng/mL); THC Urine VISTA NEGATIVE (< 50 ng/mL); Vista UDS pH Range 5
[2022-04-14 23:00] VITALS: RESP 16
[2022-04-15] VITALS (9 sets, daily range): BP systolic 132–150; BP diastolic 63–95; PULSE 81–91; RESP 14–18; O2SAT 96–98
[2022-04-15 04:13] LABS: Alcohol, Blood (Medical)-Serum < 3.0 mg/dL
--- NOTE | 2022-04-15 10:51 | EKG12_ITS ---
Test Reason : WEAKNESS Blood Pressure : / mmHG Vent. Rate : 092 BPM Atrial Rate : 092 BPM P-R Int : 134 ms QRS Dur : 066 ms QT Int : 376 ms P-R-T Axes : 046 034 076 degrees QTc Int : 464 ms Normal sinus rhythm Cannot rule out Inferior infarct , age undetermined Abnormal ECG Confirmed by SEEMA MONAHAN, BIRD ([id number]), editorial intern KG ALLEN ([id number]) on 04/18/2022 1:53:29 PM Referred By: Confirmed By:BIRD STEPHENSON MD
--- NOTE | 2022-04-15 10:57 | CM.ED ---
Addendum entered by Erika Neal 04/15/22 22:07: ZORAIDA contacted [facility] to inquire about patient's referral, admissions staff report patient was declined. ZORAIDA attempted to contact admissions staff at [facility] in [facility] [place], however, there was no answer at either number by admissions staff. LESLIE Leroy Addendum entered by Erika Neal 04/15/22 17:26: ZORAIDA contacted [facility] to briefly review a referral for patient, admissions staff states patient is not appropriate as she is too young. ZORAIDA contacted [facility] to briefly review a referral for patient, admissions staff states patient is not appropriate as she is too young. SW contacted [facility] to briefly review a referral for patient. Admissions staff stated they will likely decline due to patient not taking care of herself but would review a referral. SW sent referral via fax. ZORAIDA contacted [facility] to inquire about progress with referral. Admissions staff reports patient is under review for the [facility] location and is waiting for one more provider to review the referral. Plan: psych placement pending acceptance from facility LESLIE Leroy Addendum entered by Erika Neal 04/15/22 13:33: ZORAIDA contacted [facility] admissions staff to inquire about patient's referral. Admissions staff stated they received the items they requested and patient's referral is still under review. LESLIE Leroy Addendum entered by Erika Neal 04/15/22 13:09: EKG and UA with test and alcohol levels faxed to [facility] per their request. LESLIE Leroy Original Note: Social Work Note SW met with CHRISS Sotelo to review patient's symptoms and progress over night. CHRISS Sotelo reports limited improvements, explaining patient stood but stated she couldn't walk to use restroom so she is currently using a bed acevedo. CHRISS Garcia reports when patient was brought into ED she was able to move her legs to change and put on socks without an issue. SW met with patient and inquired about how she was feeling. Patient stated she was feeling fine besides her leg hurting. SW encouraged patient to attempt to walk around to exercise her leg, however, patient declined. SW explained patient needed to be able to complete DLS to be transferred to another facility. Patient inquired why the staff at the other facility can't take care of her, SW explained they will be able to help but not with all of her DLS as it is a psychiatric hospital. Patient explained she would prefer to go to a SNF so they will take care of her. SW explained she would be in later today to check on patient, no needs voiced. ZORAIDA contacted admissions staff at [facility] to inquire about patient's referral. Admissions staff stated [facility] was no longer available and reviewed patient's referral, explaining they needed a test, UA, EKG and alcohol levels to continue to review her referral. ZORAIDA informed MD Lopes of tests needed, MD to order. Plan: [facility] pending acceptance Erika Neal MSW, LESLIE
[2022-04-15 12:23] LABS: Color, Urine Yellow (Yellow); Glucose, Dipstick Normal (Normal); Leukocyte Esterase-Dipstick 500 /ul (Negative); Nitrite-Dipstick Positive (Negative); Occult Blood-Urine 10 /ul (Negative); Protein-Dipstick 30 mg/dl (Negative); Urine Clarity Turbid (Clear); Urine Urobilinogen 4 mg/dl (Normal)
[2022-04-15 12:26] LABS: Internal QC Validated? YES +Cl - CLEAR BKGD; Pregnancy, Urine Negative Negative
[2022-04-15 12:27] LABS: Ketone-Dipstick 150 mg/dl (Negative); Urine Bilirubin Dipstick 3 mg/dL (Negative)
[2022-04-15 12:29] LABS: Amorphous Sediment 3+; Bacteria 0 SEEN /hpf (None Seen); Calcium Oxalate Crystals Ur 1+ /hpf (<or=2+); Mucous, Urine 0 SEEN /hpf (<or=2+); Red Blood Cells-Urine 0 SEEN /hpf (0-5); Squamous Epithelial Cells - UA 0 SEEN /hpf (5-10); White Blood Cells 5-10 SEEN /hpf (0-5)
[2022-04-15] MEDS: Ferrous Sulfate 325 MG Tablet PO (14:24)
[2022-04-15] MEDS: amLODIPine 5 MG Tablet 10 MG PO (14:24)
[2022-04-15] MEDS: Cyanocobalamin 500 MCG Tablet 1000 MCG PO (14:24)
[2022-04-15] MEDS: Spironolactone 25 MG Tablet PO ×2 (14:24)
[2022-04-15] MEDS: Sucralfate 1 GM Tablet PO (14:24)
[2022-04-15] MEDS: Pantoprazole Sodium 40 MG Tablet PO (14:24)
[2022-04-15] MEDS: Folic Acid 1 MG Tablet PO (14:25)
[2022-04-15] MEDS: Menthol/Lanolin/Calamine/Znox 113 GM Tube 1 APPLIC TOPICAL ×2 (14:25→22:05)
--- NOTE | 2022-04-15 15:52 | CM.ED ---
Social Work - ED Received call from Katia Westbrook at [facility] Board of DD ([phone], extension [phone]) inquiring on update about this patient. Katia had initiated wellness check for patient on 04.14.2022 which led patient to back to [facility]. This securities underwriter initiated referral to Board of DD due notation in patient's EMR of seizure disorder (occurring age 21), notation of history of hypoplastic brain, and cognitive deficit; exploring possible resources to assist patient and patient's care needs in the community. No determination has yet been made on eligibility for DD services as referral was just initiated this week. For continuity of care of this patient, did return call and give update that patient currently remains at [facility]. -CANDE James, FUNERAL DIRECTOR AND EMBALMER
--- NOTE | 2022-04-15 18:53 | ED.RN ---
Pt. refused vital signs
[2022-04-15] MEDS: levETIRAcetam 1,000 MG Tablet 1000 MG PO (22:01)
[2022-04-15] MEDS: Topiramate 100 MG Tablet PO (22:01)
[2022-04-15] MEDS: Phenobarbital 32.4 MG Tablet 64.8 MG PO (22:02)
[2022-04-15] MEDS: Gabapentin 300 MG Capsule PO (22:02)
[2022-04-15] MEDS: Potassium Chloride Oral Tablet 20 MEQ PO (22:03)
[2022-04-16] VITALS (10 sets, daily range): BP systolic 150–156; BP diastolic 100–105; PULSE 82–99; RESP 16–19; TEMP 36.7; O2SAT 100
[2022-04-16] MEDS: Menthol/Lanolin/Calamine/Znox 113 GM Tube 1 APPLIC TOPICAL ×3 (05:00→23:25)
--- NOTE | 2022-04-16 09:22 | ED.RN ---
THIS RN WENT TO MEDICATE PATIENT. SHE WAS SLEEPING. SHE ROLLED OVER IN BED AND SHOOK HER HEAD WHEN ASKED IF SHE WANTED HER MEDS NOW.
--- NOTE | 2022-04-16 14:21 | ED.RN ---
PT CURRENTLY REFUSING MEDICATIONS AFTER STATING SHE WOULD TAKE THEM
[2022-04-16] MEDS: Ferrous Sulfate 325 MG Tablet PO (15:40)
[2022-04-16] MEDS: Folic Acid 1 MG Tablet PO (15:40)
[2022-04-16] MEDS: Cyanocobalamin 500 MCG Tablet 1000 MCG PO (15:40)
[2022-04-16] MEDS: Potassium Chloride Oral Tablet 20 MEQ PO (15:41)
[2022-04-16] MEDS: Pantoprazole Sodium 40 MG Tablet PO (15:41)
[2022-04-16] MEDS: Sucralfate 1 GM Tablet PO (15:41)
[2022-04-16] MEDS: Phenobarbital 32.4 MG Tablet 64.8 MG PO (15:42)
[2022-04-16] MEDS: Gabapentin 300 MG Capsule PO (15:42)
[2022-04-16] MEDS: levETIRAcetam 1,000 MG Tablet 1000 MG PO (15:42)
[2022-04-16] MEDS: amLODIPine 10 MG Tablet PO (15:43)
[2022-04-16] MEDS: Topiramate 100 MG Tablet PO (15:43)
--- NOTE | 2022-04-16 15:44 | NURSING ---
per report, multiple attempts made by previous RN to give daily medications. Pt originally wanted her medications but then refused. This RN rounding and pt asked for medications. Asked pt since it is late in the afternoon how she would take twice a day medications. Pt said she sometimes only takes them once a day when taking this late. Charted for 2200 medications for twice a day medications.
--- NOTE | 2022-04-16 19:12 | CM.ED ---
Addendum entered by Erika Neal 04/16/22 20:00: Patient was declined by [facility] and [facility] due to acuity. Referral still pending review with [facility] with possible discharges tomorrow. LESLIE Leroy Original Note: ZORAIDA Note ZORAIDA contacted [facility] to inquire about patient's referral. Admissions staff report the patient is on the wait list for the [facility] location. Patient will be reviewed for admission once a bed is available, possibly tomorrow. ZORAIDA consulted with ZORAIDA Sorensen regarding patient's symptoms and presentation in ED. ZORAIDA Sorensen advised this SW that due to patient's decline between ED visits and lack of improvement since presenting to ED, patient would not be appropriate for reevaluation for discharge at this time. ZORAIDA encouraged to contact additional facilities to review referral for patient. If patient is unable to be accepted at psychiatric facility, best plan may be admitting patient for SNF placement as patient would trip the PASSR screen and have to be reviewed by Board of Developmental Disabilities. ZORAIDA contacted [facility] and spoke to the drying machine operator package yarns who attempted to contact SW to intake, however, no one answered for the intake line. ZORAIDA contacted [facility] to discuss a referral for patient, however, admissions staff explained they are unable to accept any outside referrals at this time. ZORAIDA contacted [facility] and briefly reviewed patient's symptoms and safety concerns. [facility] admissions staff reported bed availability and willingness to review a referral. ZORAIDA faxed referral. ZORAIDA contacted [facility] and briefly reviewed patient's symptoms and safety concerns. [facility] admissions staff reported bed availability and willingness to review a referral. ZORAIDA faxed referral. Referrals pending at [facility], [facility] and [facility]. LESLIE Leroy
[2022-04-17] VITALS (8 sets, daily range): BP systolic 139; BP diastolic 96–97; PULSE 90–91; RESP 14–18; O2SAT 98–100
[2022-04-17] MEDS: Sucralfate 1 GM Tablet PO (08:37)
[2022-04-17] MEDS: Menthol/Lanolin/Calamine/Znox 113 GM Tube 1 APPLIC TOPICAL (08:38)
[2022-04-17] MEDS: Ferrous Sulfate 325 MG Tablet PO (09:51)
[2022-04-17] MEDS: Gabapentin 300 MG Capsule PO (09:51)
[2022-04-17] MEDS: Cyanocobalamin 500 MCG Tablet 1000 MCG PO (09:52)
[2022-04-17] MEDS: Phenobarbital 32.4 MG Tablet 64.8 MG PO (09:52)
[2022-04-17] MEDS: levETIRAcetam 1,000 MG Tablet 1000 MG PO (09:52)
[2022-04-17] MEDS: amLODIPine 10 MG Tablet PO (09:52)
[2022-04-17] MEDS: Spironolactone 25 MG Tablet PO (09:52)
[2022-04-17] MEDS: Folic Acid 1 MG Tablet PO (09:52)
[2022-04-17] MEDS: Topiramate 100 MG Tablet PO (09:52)
[2022-04-17] MEDS: Pantoprazole Sodium 40 MG Tablet PO (09:52)
[2022-04-17] MEDS: Potassium Chloride Oral Tablet 20 MEQ PO (09:58)
--- NOTE | 2022-04-17 10:32 | ED.RN ---
[facility] HAS A WAIT LIST. MAY HAVE AN OPENING 04/18/22 BUT COULD NOT GUARANTEE PLACEMENT
--- NOTE | 2022-04-17 17:29 | ED.RN ---
[facility] SAID THEY STILL DO NOT HAVE A BED. MAYBE TOMOOROW MORNING 04/18/22
--- NOTE | 2022-04-17 18:10 | ED.RN ---
THIS RN SPOKE WITH DR. MURILLO, WHO IS CURRENTLY OVERSEEING THE PATIENT CARE. DR. MURILLO INFORMED OF SOCIAL WORK NOTES, AND PLAN OF CARE FOR PT. PT STILL PENDING ACCEPTANCE AT [facility] WHO HAS NOT OFFICIALLY ACCEPTED. PER DR. MURILLO, WE NEED TO AWAIT FOR PT TO BE ACCEPTED OR REFUSED BEFORE TRYING INPATIENT ROUTE OF CARE FOR SNF PLACEMENT.
--- NOTE | 2022-04-17 21:23 | ED.RN ---
PT REFUSES VITALS AND HS MEDICATIONS AT THIS TIME. PT ROLLED BACK OVER AND WENT BACK TO SLEEP
[2022-04-18] VITALS (11 sets, daily range): BP systolic 127–146; BP diastolic 78–121; PULSE 73–100; RESP 14–18; TEMP 36.1–36.8; O2SAT 99–100; BMI 28.2
--- NOTE | 2022-04-18 04:37 | ED.RN ---
[facility] intake calls asking if patient still needs placement. They state because of her inability to care for herself and insurance they are limited on options for her. She states she cannot go to [facility] or one of the other main units. She states she will call back after she makes some phone calls but its a possibility they will have to deflect this patient.
[2022-04-18] MEDS: amLODIPine 10 MG Tablet PO (09:34)
[2022-04-18] MEDS: Pantoprazole Sodium 40 MG Tablet PO (09:34)
[2022-04-18] MEDS: Phenobarbital 32.4 MG Tablet 64.8 MG PO ×2 (09:35→22:03)
[2022-04-18] MEDS: Ferrous Sulfate 325 MG Tablet PO (09:36)
[2022-04-18] MEDS: levETIRAcetam 1,000 MG Tablet 1000 MG PO ×2 (09:37→22:38)
[2022-04-18] MEDS: Sucralfate 1 GM Tablet PO ×2 (09:37→13:06)
[2022-04-18] MEDS: Topiramate 100 MG Tablet PO ×2 (09:38→22:03)
[2022-04-18] MEDS: Folic Acid 1 MG Tablet PO (09:38)
[2022-04-18] MEDS: Spironolactone 25 MG Tablet PO (09:39)
[2022-04-18] MEDS: Cyanocobalamin 500 MCG Tablet 1000 MCG PO (09:39)
[2022-04-18] MEDS: Potassium Chloride Oral Tablet 20 MEQ PO ×2 (09:40→22:03)
[2022-04-18] MEDS: Gabapentin 300 MG Capsule PO ×2 (09:40→22:03)
--- NOTE | 2022-04-18 10:09 | CM.ED ---
Addendum entered by Erika Neal 04/18/22 12:41: SW contacted [facility] to inquire about available beds and their ability to review a referral for patient. Admissions staff explained they are currently full and are no longer accepting females as they are going to be a male only facility moving forward. LESLIE Leroy Original Note: ZORAIDA Note SW contacted [facility] admissions staff to inquire about patient being admitted to their facility. Admissions staff state the patient was declined by their doctors at this time. ZORAIDA informed director of hospitality Alyssa who will follow up with MD to discuss admission to [facility] for SNF placement. SW met with patient to inform her she is being admitted to the hospital to continue to work on finding appropriate placement for patient. SW provided patient with a list of [facility] SNF in network with patient's insurance. Patient reported an understanding and requested this SW leave the list with patient to further review. SW explained another social services manager would continue to assist patient with discharge planning. No questions or other needs voiced. SW contacted [facility] to inquire about bed availability, however, admissions staff are in a meeting. SW to call back in an hr. Plan: admitting to [facility]; review for possible SNF placement LESLIE Leroy
--- NOTE | 2022-04-18 10:40 | PCM.HP.STD ---
HPI - General General Date of Admission: 04/18/22 Date of Service: 04/18/22 Chief Complaint: Failure to Thrive HPI Narrative MARY CLAUDIO, is a 36 F who presented department [facility] on 04/14/2022 when police did an adult check at her home and she was found lying on her couch covered in urine and feces. They called the squad and had her brought in. She lives with her but she reports he cheats on her. They have 4 children together. She states she graduated from [employer] but is unable to tell me the year she graduated. She states she can read a little. She states she has been but unable to tell me how long she has been . She does have frequent presentations to the emergency department and her most recent admission was related to hypokalemia. She was discharged home on 04/09/2022. Since that discharge she been to the emergency department 3 times, on , , and again this presentation on the . She was referred to the adult developmental delay board. Children services is also involved. She has no complaints other than the inability to take care of herself and intermittent leg pain that she states causes her not to be able to take care of herself. She has had work-up for this leg pain and no etiology has been identified. There seem to be possible psychological and significant social issues. Multiple attempts were made by the emergency department to have her placed in a psychiatric facility for ongoing care however no facilities were able to be identified at this time so she will require admission to the hospital until this can be sorted out. Vital signs while in the emergency department have overall been unremarkable. Lab work obtained on the day of admission showed an unremarkable CBC and mild hypokalemia with a potassium of 3.3 on her chemistry panel but this was otherwise unremarkable. Her urine was suggestive of infection however no bacteria was seen on high-power field and she had just recently been treated for urinary tract infection. [facility] Medical History Cognitive dysfunction Debility HTN (hypertension) Hypokalemia Morbid obesity Paresthesias Seizure disorder Urinary tract infection UTI (urinary tract infection) Home Medications ferrous sulfate 325 mg (65 mg iron) tablet 325 mg PO DAILY@0800 supplement 03/17/20 [History Last Taken 1 Day Ago ~04/14/22] gabapentin 300 mg capsule 300 mg PO BID neuropathy #60 caps 04/06/20 [Rx Last Taken 1 Day Ago ~04/14/22] levetiracetam 1,000 mg tablet 1,000 mg PO BID seizures #60 tabs 04/06/20 [Rx Last Taken 1 Day Ago ~04/14/22] amlodipine 5 mg tablet 10 mg PO DAILY BP 09/16/21 [History Last Taken 1 Day Ago ~04/14/22] phenobarbital 64.8 mg tablet 64.8 mg PO BID SEIZURES 03/02/22 [History Last Taken 1 Day Ago ~04/14/22] acetaminophen 325 mg tablet (Tylenol) 650 mg PO Q6H PRN PRN Pain 1-10 Or Fever>100.7 #0 tabs 03/09/22 [Rx Last Taken Unknown] cyanocobalamin (vitamin B-12) 500 mcg tablet 1,000 mcg PO BREAKFAST #0 tabs 03/09/22 [Rx Last Taken 1 Day Ago ~04/14/22] menthol 0.44 %-zinc oxide 20.6 % topical ointment (Calmoseptine) 1 applic topical TID #0 grams 03/09/22 [Rx Last Taken Unknown] sennosides 8.6 mg-docusate sodium 50 mg tablet (Stool Softener-Stimulant Laxative) 2 tab PO BID PRN PRN Constipation #0 tabs 03/09/22 [Rx Last Taken Unknown] folic acid 1 mg tablet 1 mg PO BREAKFAST supplement 04/07/22 [History Last Taken 1 Day Ago ~04/14/22] pantoprazole 40 mg tablet,delayed release (Protonix) 40 mg PO DAILY GI 04/07/22 [History Last Taken 1 Day Ago ~04/14/22] sucralfate 1 gram tablet 1 g PO 0700,1100,1600 GI 04/07/22 [History Last Taken Unknown] topiramate 100 mg tablet 100 mg PO BID seizures 04/07/22 [History Last Taken 1 Day Ago ~04/14/22] potassium chloride 20 mEq tablet,extended release(part/cryst) 20 meq PO BID SUPPLEMENT 04/15/22 [History Last Taken 1 Day Ago ~04/14/22] sertraline 50 mg tablet 50 mg PO DAILY MOOD 04/15/22 [History Last Taken 1 Day Ago ~04/14/22] spironolactone 25 mg tablet 25 mg PO DAILY . 04/15/22 [History Last Taken 1 Day Ago ~04/14/22] Allergy/AdvReac Type Severity Reaction Status Date / Time fluconazole Allergy NEEDS Verified 04/10/22 13:05 FOLLOW-UP naproxen Allergy Hives Verified 04/10/22 13:05 Family History Other Leukemia Social History household members: significant other, family and children housing: house Smoking Status: Former smoker alcohol intake: never substance use type: does not use ROS Constitutional Constitutional: Denies anorexia, change in weight, chills, fatigue, fever(s), malaise, night sweats, weakness or other Eyes Eyes: Denies blurry vision, change in eye color, change in vision, discharge from eye(s), double vision, erythema, eye pain, loss of vision or other ENT HEENT: Denies abnormal hearing, dysphagia, ear pain, epistaxis, headache(s), hearing loss, nasal congestion, nasal discharge, post nasal drip, sinus pressure, sore throat or other Cardiovascular Cardiovascular: Denies chest pain, claudication, dyspnea on exertion, edema, lightheadedness, orthopnea, palpitations, paroxysmal nocturnal dyspnea, rapid heart rate, syncope or other Respiratory/Chest Respiratory/Chest: Denies cough, dyspnea, excessive phlegm production, hemoptysis, productive cough, shortness of breath at rest, shortness of breath with exertion, wheezing or other Gastrointestinal Gastrointestinal: Denies abdominal pain, coffee ground emesis, constipation, diarrhea, dyspepsia, hematemesis, hematochezia, loose stools, melena, nausea, vomiting or other Genitourinary Genitourinary: Denies burning urination, difficulty urinating, dysuria, hematuria, nocturia, urinary frequency, urinary hesitancy, urinary incontinence, urinary urgency or other Musculoskeletal Musculoskeletal: Reports other Details: Left leg pain ; Denies arthralgias, back pain, joint pain, joint stiffness, joint swelling, myalgias or neck pain Neurologic Neurologic: Reports numbness, paresthesias, tingling and other Details: Chronic bilateral lower extremity neuropathy ; Denies abnormal gait, abnormal speech, confusion, disequilibrium, dizziness, focal weakness, headache(s), seizure-like activity, seizures, syncope or tremor(s) Psychiatric Psychiatric: Reports depression; Denies anxiety, homicidal ideation, suicidal ideation or other Endocrine Endocrinology: Denies change in body appearance, cold intolerance, excessive sweating, heat intolerance, polydipsia, polyuria or other Hematologic/Lymphatic Hematologic/Lymphatic: Denies anemia, easy bleeding, easy bruising, lymphadenopathy or other Allergic/Immunologic Allergic/Immunologic: Denies rhinitis, hives, eczemia, asthma or other Vital Signs Vital Signs Vital Signs: 04/17/22 11:00 04/17/22 13:00 04/17/22 19:00 Pulse Rate Respiratory Rate 16 18 14 Blood Pressure Blood Pressure Mean Pulse Ox Oxygen Delivery Method 04/17/22 21:00 04/17/22 23:00 04/18/22 01:00 Pulse Rate 91 Respiratory Rate 14 14 18 Blood Pressure 127/88 H Blood Pressure Mean 101 Pulse Ox 99 Oxygen Delivery Method Room Air 04/18/22 03:00 04/18/22 05:00 04/18/22 07:00 Pulse Rate Respiratory Rate 16 14 16 Blood Pressure Blood Pressure Mean Pulse Ox Oxygen Delivery Method 04/18/22 09:51 Pulse Rate 73 Respiratory Rate 16 Blood Pressure 140/90 H Blood Pressure Mean 106 Pulse Ox 100 Oxygen Delivery Method Room Air Weight Weight: 81.8 kg Body Mass Index (BMI) 28.2 Physical Exam Const alert, oriented x3, no apparent distress and well nourished Constitutional Narrative: Middle-aged, overweight, white female, lying in bed sleeping but awakens easily, upon awakening is able to fully communicate HEENT normocephalic, head/scalp atraumatic, hearing grossly normal bilaterally and moist oral mucous membranes HEENT Narrative: Dentition is fair, Mallampati is 3, no thrush Resp normal respiratory effort, no retractions, no use of accessory muscles and clear to auscultation bilaterally Auscultation: Negative for rales, rhonchi or wheezes Cardio regular rate, regular rhythm, S1 normal heart sound, S2 normal heart sound, no murmurs, no rub, no gallops and no clicks GI normal to inspection, nondistended, normoactive bowel sounds, soft to palpation and non-tender Extremity no clubbing, cyanosis or edema Extremity Narrative: 2+ pedal pulses Skin Skin Narrative: Multiple ecchymotic areas on bilateral upper extremities-patient states these are from needle sticks in the emergency department however they are not in locations he would typically see venipuncture Neuro oriented x3, moves all extremities and no focal motor deficits Neuro Narrative: Speech is normal quality however response time is a bit delayed at times Psych affect normal Results Lab / Micro Data Attestation: I reviewed the patient's lab results. Result Diagrams: 04/14/22 18:25 04/14/22 18:25 Assessment & Plan Assessment/Plan (1) Adult failure to thrive: (2) Hypokalemia: (3) Cognitive dysfunction: PLAN: Plan Failure to Thrive -Suspect there are psychological and social components to this -We will need placement at discharge -PT/OT consultation -Case management consultation/social work consultation Hypokalemia -Slightly low at 3.3 on presentation -Repeat BMP and mag level in a.m. Urinary incontinence -Seems to be voluntary -Patient does not notify nursing and sits in urine without telling anybody -Seems to be psychologically mediated Hypertension -Continue home amlodipine Seizure disorder -Continue home Keppra -Continue home phenobarbital -Continue home Topamax Neuropathy -Continue home gabapentin Suspected developmental delay -Follow-up as above -Patient has never had previous services GERD -continue home PPI by -Continue home Carafate DVT prophylaxis -Continue enoxaparin 40 mg daily CODE STATUS Full code Charges/Coding Visit Charges Inpatient E&M: 14057 Init Hosp L2
--- NOTE | 2022-04-18 13:09 | ED.RN ---
DELAY WITH MEDICATING DUE TO ED CENSUS AND ACUITY
[2022-04-18] MEDS: Menthol/Lanolin/Calamine/Znox 113 GM Tube 1 APPLIC TOPICAL (22:38)
[2022-04-19 03:03] VITALS: BP 150/91; PULSE 97; RESP 18; TEMP 36.6; O2SAT 96
[2022-04-19] MEDS: Sucralfate 1 GM Tablet PO ×3 (06:25→17:04)
[2022-04-19] MEDS: Menthol/Lanolin/Calamine/Znox 113 GM Tube 1 APPLIC TOPICAL ×2 (06:25→21:24)
[2022-04-19 06:29] LABS: Absolute Lymphocyte Count 1.34 X10^3/uL (0.83-4.51); Absolute Neutrophil Count 2.6 X10^3/uL (2.0-7.7); Basophil# 0.03 X10^3/uL; Basophil% 0.6 % (0-1); Eosinophil# 0.13 X10^3/uL; Eosinophils% 2.8 % (0-5); Hematocrit 44.3 % (37-47); Hemoglobin 13.9 g/dL (12.0-15.0); Lymphocyte # 1.34 X10^3/ul (0.83-4.51); Lymphocyte % 28.7 % (19-41); Mean Corp Hgb Conc 31.4 g/dL (32-36); Mean Corpuscular Hgb 31.6 pg (27.0-32.0); Mean Corpuscular Volume 100.7 fL (81-99); Mean Platelet Vol. 12.5 fl (6.2-12.0); Monocyte# 0.55 X10^3/uL; Monocyte% 11.8 % (0-10); NRBC Flagged by Analyzer 0 % (0-5); Neutrophil # 2.61 X10^3/uL (2.7-7.7); Neutrophil % 55.9 % (47-70); POSITIVE COUNT YES; Platelet Count 142 K/mm3 (150-450); RBC Distribution Width CV 12.5 % (11.6-14.6); RBC Distribution Width SD 47.4 fl (35.1-43.9); White Blood Count 4.7 K/mm3 (4.4-11.0)
[2022-04-19 06:33] LABS: Differential Indicated SCAN CRITERIA MET
[2022-04-19 07:05] LABS: Phosphorus 3.7 mg/dL (2.5-4.9)
[2022-04-19 07:08] LABS: AST(SGOT) 19 U/L (15-37); Alanine Aminotransfer ALT/SGPT 16 U/L (13-56); Albumin, Serum 3.3 g/dL (3.2-5.0); Alkaline Phosphatase 64 U/L (45-117); Anion Gap 10 (5-15); BUN 5 mg/dL (7-18); BUN/Creat Ratio 7.1 RATIO (10-20); Calcium,Total 9.3 mg/dL (8.5-10.1); Chloride 108 mmol/L (98-107); EST Glomerular Filtration Rate 99 mL/min (>60); Est Glom Filt Rate - Afr Amer 120 mL/min (>60); Estimated Creatinine Clearance 107.01 ml/min; Globulin 3.2 g/dL (2.2-4.2); Glucose 89 mg/dL (74-106); Magnesium 1.9 mg/dL (1.6-2.6); Protein, Total 6.5 g/dL (6.4-8.2); Sodium Level 137 mmol/L (136-145); Thyroid Stim Hormone (TSH) 3.34 uIU/mL (0.358-3.74)
[2022-04-19 09:05] VITALS: BP 132/97; PULSE 105; RESP 18; TEMP 36.8; O2SAT 95
[2022-04-19] MEDS: Topiramate 100 MG Tablet PO ×2 (09:18→21:26)
[2022-04-19] MEDS: levETIRAcetam 1,000 MG Tablet 1000 MG PO ×2 (09:18→21:26)
[2022-04-19] MEDS: Enoxaparin 40 MG/0.4 ML Syringe SC (09:18)
[2022-04-19] MEDS: Cyanocobalamin 500 MCG Tablet 1000 MCG PO (09:18)
[2022-04-19] MEDS: Potassium Chloride Oral Tablet 20 MEQ PO (09:19)
[2022-04-19] MEDS: amLODIPine 10 MG Tablet PO (09:19)
[2022-04-19] MEDS: Carvedilol 3.125 MG TABLET PO ×2 (09:19→21:26)
[2022-04-19] MEDS: Pantoprazole Sodium 40 MG Tablet PO (09:19)
[2022-04-19] MEDS: Gabapentin 300 MG Capsule PO ×2 (09:19→21:25)
[2022-04-19] MEDS: Phenobarbital 32.4 MG Tablet 64.8 MG PO ×2 (09:19→21:25)
[2022-04-19] MEDS: Folic Acid 1 MG Tablet PO (09:19)
[2022-04-19] MEDS: Spironolactone 25 MG Tablet PO (09:19)
[2022-04-19] MEDS: Ferrous Sulfate 325 MG Tablet PO (09:19)
[2022-04-19] MEDS: Sertraline 50 MG Tablet PO (09:22)
[2022-04-19] MEDS: FLU VACC QS2022-23(6MOS UP)/PF 60 MCG/0.5 ML SYRINGE IM (09:32)
--- NOTE | 2022-04-19 12:05 | CASEMGMT ---
Addendum entered by Sheba Espinoza 04/19/22 15:05: SW in to meet with pt one again to attempt collaborating on SNF choice. Pt refused to wake. Bedside nurse, Tashia stated pt has been sleeping all day and groggy. Suggested to call pt . SW will call and discuss SNF choices. Original Note: Social Work SW in to pt room to follow up on SNF placement after reading ED SW report. Pt sleeping. SW attempted to wake pt. Pt was breathing but refused to open eyes, appeared in deep sleep. SW placed hand on pt shoulder and attempted to wake pt. Pt continued to sleep. SW will follow up with pt later this day. SHAUN Vásquez
[2022-04-19] MEDS: Ensure Plus High Protein 120 ML LIQUID PO ×2 (12:12→17:04)
--- NOTE | 2022-04-19 13:01 | PCM.PN.HOSP ---
Reason for Visit Reason for Visit: Failure to thrive Subjective Subjective No issues overnight. Patient is sitting up in a chair and stating she would like to go back to bed because her pure wick hurts. Objective Data Objective Data Vital Signs: Vital Signs Temp Pulse Resp BP Pulse Ox O2 Del Method 98.2 F 105 H 18 132/97 H 95 Room Air 04/19/22 09:05 04/19/22 09:05 04/19/22 09:05 04/19/22 09:05 04/19/22 09:05 04/19/22 09:26 Oxygen Delivery Method Room Air Weight: 81.8 kg Body Mass Index (BMI) 28.2 Intake & Output: Intake and Output for Last 24 Hours 04/17/22 04/18/22 04/19/22 23:59 23:59 23:59 Intake Total 270 / 270 Output Total 300 / 300 Balance -30 / -30 Lab / Micro Data Result Diagrams: 04/19/22 05:55 04/19/22 05:55 Labs: Laboratory Results - last 24 hr 04/19/22 05:55: WBC 4.7, RBC 4.40, Hgb 13.9, Hct 44.3, MCV 100.7 H, MCH 31.6, MCHC 31.4 L, RDW Std Deviation 47.4 H, RDW Coeff of [place] 12.5, Plt Count 142 L, MPV 12.5 H, Immature Gran % (Auto) 0.200, Neut % (Auto) 55.9, Lymph % (Auto) 28.7, [place] % (Auto) 11.8 H, Eos % (Auto) 2.8, Baso % (Auto) 0.6, Absolute Neuts (auto) 2.6, Absolute Lymphs (auto) 1.34, Nucleated RBC % 0 04/19/22 05:55: Sodium 137, Potassium 4.0, Chloride 108 H, Carbon Dioxide 19.0 L, Anion Gap 10, BUN 5 L, Creatinine 0.70, Estim Creat Clear Calc 107.01, Est GFR (MDRD) Af Amer 120, Est GFR (MDRD) Non-Af 99, BUN/Creatinine Ratio 7.1 L, Glucose 89, Calcium 9.3, Magnesium 1.9, Total Bilirubin 0.50, AST 19, ALT 16, Alkaline Phosphatase 64, Total Protein 6.5, Albumin 3.3, Globulin 3.2, Albumin/Globulin Ratio 1.0, TSH 3.34 04/19/22 05:55: Phosphorus 3.7 Micro: Microbiology 04/14/22 20:08 Nasal Secretion SARS-CoV-2 Antigen (Rapid) - Final Physical Exam Const alert, oriented x3, no apparent distress and well nourished Constitutional Narrative: Middle-aged, overweight, white female, sitting up in a chair, 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 bedside HEENT normocephalic, head/scalp atraumatic, hearing grossly normal bilaterally and moist oral mucous membranes Resp normal respiratory effort, no retractions, no use of accessory muscles and clear to auscultation bilaterally Auscultation: Negative for rales, rhonchi or wheezes Cardio regular rate, regular rhythm, S1 normal heart sound, S2 normal heart sound, no murmurs, no rub, no gallops and no clicks GI normal to inspection, nondistended, normoactive bowel sounds, soft to palpation and non-tender Extremity no clubbing, cyanosis or edema Extremity Narrative: 2+ pedal pulses Neuro oriented x3, moves all extremities and no focal motor deficits Psych Psych Narrative: Affect is flat Mood & Affect: anxious Assessment & Plan Assessment/Plan (1) Adult failure to thrive: (2) Hypokalemia: (3) Cognitive dysfunction: PLAN: Plan Failure to Thrive -Suspect there are psychological and social components to this -We will need placement at discharge -PT/OT consultation -Case management consultation/social work consultation Hypokalemia -Resolved -Decrease daily supplemental potassium from 40 mill equivalents daily to 20 mEq daily -Repeat in a few days Urinary incontinence -Seems to be voluntary -Patient does not notify nursing and sits in urine without telling anybody -Seems to be psychologically mediated -Pure wick in place Hypertension -Continue home amlodipine Seizure disorder -Continue home Keppra -Continue home phenobarbital -Continue home Topamax Neuropathy -Continue home gabapentin Suspected developmental delay -Follow-up as above -Patient has never had previous services GERD -continue home PPI by -Continue home Carafate DVT prophylaxis -Continue enoxaparin 40 mg daily CODE STATUS Full code Charges/Coding Visit Charges Inpatient E&M: 08925 Subs Hosp L2
--- NOTE | 2022-04-19 14:12 | CPS ---
PT DROWSY AND UNABLE TO STAY AWAKE.
[2022-04-19 15:02] VITALS: BP 129/94; PULSE 96; RESP 18; TEMP 36.6; O2SAT 95
--- NOTE | 2022-04-19 15:42 | CASEMGMT ---
Social Work SW called pt , Jose, to discuss SNF Choice. Jose stated no preference, instructed SW to start with highest rated SNF in [place] and work way down list. Pt to [facility] for [facility]. Avenue informed there are no open beds. Next on list is [facility]. Referral sent to [facility]. PLAN: SNF SHAUN Vásquez
--- NOTE | 2022-04-19 20:38 | CPS ---
IS in room. Not done, pt sleeping at this time
[2022-04-19 21:13] VITALS: BP 139/85; PULSE 75; RESP 18; TEMP 36.7; O2SAT 96
[2022-04-20] VITALS (8 sets, daily range): BP systolic 121–149; BP diastolic 85–101; PULSE 87–94; RESP 15–18; TEMP 36.4–36.8; O2SAT 94–100
[2022-04-20] MEDS: Menthol/Lanolin/Calamine/Znox 113 GM Tube 1 APPLIC TOPICAL ×3 (05:03→22:12)
[2022-04-20] MEDS: Sucralfate 1 GM Tablet PO ×3 (06:25→17:13)
--- NOTE | 2022-04-20 07:58 | CASEMGMT ---
Addendum entered by Sheba Espinoza 04/20/22 08:00: Referral sent to [facility]. Original Note: Social Work [facility] unable to accept pt. Will continue down list for acceptance as , Jose has no preference and asked SW to start with highest rated SNFs in [place] and go down list. SHAUN Vásquez
[2022-04-20] MEDS: Folic Acid 1 MG Tablet PO (09:18)
[2022-04-20] MEDS: Ferrous Sulfate 325 MG Tablet PO (09:18)
[2022-04-20] MEDS: Cyanocobalamin 500 MCG Tablet 1000 MCG PO (09:19)
[2022-04-20] MEDS: Potassium Chloride Oral Tablet 20 MEQ PO (09:20)
[2022-04-20] MEDS: Spironolactone 25 MG Tablet PO (09:20)
[2022-04-20] MEDS: Carvedilol 6.25 MG Tablet PO ×2 (09:20→19:57)
[2022-04-20] MEDS: levETIRAcetam 1,000 MG Tablet 1000 MG PO ×2 (09:21→22:11)
[2022-04-20] MEDS: amLODIPine 10 MG Tablet PO (09:21)
[2022-04-20] MEDS: Enoxaparin 40 MG/0.4 ML Syringe SC (09:21)
[2022-04-20] MEDS: Phenobarbital 32.4 MG Tablet 64.8 MG PO ×2 (09:21→22:10)
[2022-04-20] MEDS: Gabapentin 300 MG Capsule PO ×2 (09:21→22:10)
[2022-04-20] MEDS: Pantoprazole Sodium 40 MG Tablet PO (09:21)
[2022-04-20] MEDS: Topiramate 100 MG Tablet PO ×2 (09:22→22:10)
[2022-04-20] MEDS: Sertraline 50 MG Tablet PO (09:22)
[2022-04-20] MEDS: Ensure Plus High Protein 120 ML LIQUID PO ×3 (09:24→17:13)
--- NOTE | 2022-04-20 15:18 | PCM.PN.HOSP ---
Reason for Visit Reason for Visit: Adult failure to thrive Subjective Subjective No issues overnight. Patient has no complaints at this time. Objective Data Objective Data Vital Signs: Vital Signs Temp Pulse Resp BP Pulse Ox O2 Del Method 97.5 F L 92 16 133/101 H 100 Room Air 04/20/22 14:17 04/20/22 14:59 04/20/22 14:59 04/20/22 14:17 04/20/22 14:17 04/20/22 14:59 Oxygen Delivery Method Room Air Weight: 81.8 kg Body Mass Index (BMI) 28.2 Intake & Output: Intake and Output for Last 24 Hours 04/18/22 04/19/22 04/20/22 23:59 23:59 23:59 Intake Total 390 / 390 350 / 350 Output Total 600 / 600 301 / 301 Balance -210 / -210 49 / 49 Lab / Micro Data Result Diagrams: 04/19/22 05:55 04/19/22 05:55 Micro: Microbiology 04/14/22 20:08 Nasal Secretion SARS-CoV-2 Antigen (Rapid) - Final Physical Exam Const alert, oriented x3, no apparent distress and well nourished Constitutional Narrative: Overweight, middle-aged, white female sitting up in chair at the bedside, watching television, appears comfortable nontoxic Psych Psych Narrative: Affect is flat, eye contact is good, mood seems stable Assessment & Plan Assessment/Plan (1) Hypokalemia: (2) Cognitive dysfunction: (3) Adult failure to thrive: PLAN: Plan Failure to Thrive -Suspect there are psychological and social components to this -PT/OT following -Case management consultation/social work following and working on placement Hypokalemia -Resolved -Continue potassium 20 mill equivalents daily -Repeat BMP in a.m. 04/22/2022 Urinary incontinence -Seems to be voluntary -Patient does not notify nursing and sits in urine without telling anybody -Seems to be psychologically mediated -Pure wick in place Hypertension -Continue home amlodipine Seizure disorder -Continue home Keppra -Continue home phenobarbital -Continue home Topamax Neuropathy -Continue home gabapentin Suspected developmental delay -Follow-up as above -Patient has never had previous services GERD -continue home PPI by -Continue home Carafate DVT prophylaxis -Continue enoxaparin 40 mg daily CODE STATUS Full code Charges/Coding Visit Charges Inpatient E&M: 74553 Subs Hosp L1
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
[2022-04-21 02:20] VITALS: BP 126/84; PULSE 88; RESP 14; TEMP 36.6
[2022-04-21] MEDS: Sucralfate 1 GM Tablet PO ×3 (05:59→15:58)
[2022-04-21] MEDS: Menthol/Lanolin/Calamine/Znox 113 GM Tube 1 APPLIC TOPICAL ×2 (05:59→21:30)
[2022-04-21 07:08] LABS: Anion Gap 8 (5-15); BUN 11 mg/dL (7-18); BUN/Creat Ratio 16.4 RATIO (10-20); Calcium,Total 8.8 mg/dL (8.5-10.1); Chloride 107 mmol/L (98-107); Creatinine, Serum 0.67 mg/dL (0.55-1.02); EST Glomerular Filtration Rate 105 mL/min (>60); Est Glom Filt Rate - Afr Amer 127 mL/min (>60); Glucose 98 mg/dL (74-106); Potassium 3.3 mmol/L (3.5-5.1); Sodium Level 137 mmol/L (136-145)
[2022-04-21 08:41] VITALS: O2SAT 98
[2022-04-21 09:30] VITALS: BP 141/100; PULSE 88; RESP 18; TEMP 36.4; O2SAT 95
[2022-04-21] MEDS: Carvedilol 6.25 MG Tablet PO ×2 (09:35→21:27)
[2022-04-21] MEDS: Enoxaparin 40 MG/0.4 ML Syringe SC (09:35)
[2022-04-21] MEDS: amLODIPine 10 MG Tablet PO (09:35)
[2022-04-21] MEDS: Phenobarbital 32.4 MG Tablet 64.8 MG PO ×2 (09:36→21:27)
[2022-04-21] MEDS: Spironolactone 25 MG Tablet PO (09:36)
[2022-04-21] MEDS: Topiramate 100 MG Tablet PO ×2 (09:36→21:27)
[2022-04-21] MEDS: Cyanocobalamin 500 MCG Tablet 1000 MCG PO (09:36)
[2022-04-21] MEDS: Gabapentin 300 MG Capsule PO ×2 (09:37→21:28)
[2022-04-21] MEDS: Pantoprazole Sodium 40 MG Tablet PO (09:37)
[2022-04-21] MEDS: levETIRAcetam 1,000 MG Tablet 1000 MG PO ×2 (09:37→21:29)
[2022-04-21] MEDS: Potassium Chloride Oral Tablet 20 MEQ PO (09:37)
[2022-04-21] MEDS: Folic Acid 1 MG Tablet PO (09:37)
[2022-04-21] MEDS: Sertraline 50 MG Tablet PO (09:37)
[2022-04-21] MEDS: Potassium Chloride Oral Tablet 20 MEQ 40 MEQ PO (09:37)
[2022-04-21] MEDS: Ferrous Sulfate 325 MG Tablet PO (09:37)
--- NOTE | 2022-04-21 14:07 | PCM.PN.HOSP ---
Reason for Visit Reason for Visit: Failure to thrive Subjective Subjective No issues overnight. Patient did walk the halls yesterday with therapy services. So far today has refused to get out of bed however I strongly encouraged her to do so. Nursing encouraged her as well as they were at bedside during my conversation with her today. Still awaiting placement. Objective Data Objective Data Vital Signs: Vital Signs Temp Pulse Resp BP Pulse Ox O2 Del Method 97.5 F L 88 18 141/100 H 95 Room Air 04/21/22 09:30 04/21/22 09:30 04/21/22 09:30 04/21/22 09:30 04/21/22 09:30 04/21/22 09:30 Oxygen Delivery Method Room Air Weight: 81.8 kg Body Mass Index (BMI) 28.2 Intake & Output: Intake and Output for Last 24 Hours 04/19/22 04/20/22 04/21/22 23:59 23:59 23:59 Intake Total 390 / 390 800 / 800 300 / 300 Output Total 600 / 600 301 / 301 Balance -210 / -210 499 / 499 300 / 300 Lab / Micro Data Result Diagrams: 04/19/22 05:55 04/21/22 05:45 Labs: Laboratory Results - last 24 hr 04/21/22 05:45: Sodium 137, Potassium 3.3 L, Chloride 107, Carbon Dioxide 22.0, Anion Gap 8, BUN 11, Creatinine 0.67, Estim Creat Clear Calc 111.80, Est GFR (MDRD) Af Amer 127, Est GFR (MDRD) Non-Af 105, BUN/Creatinine Ratio 16.4, Glucose 98, Calcium 8.8 Micro: Microbiology 04/14/22 20:08 Nasal Secretion SARS-CoV-2 Antigen (Rapid) - Final Physical Exam Const alert, oriented x3, no apparent distress and well nourished Constitutional Narrative: Overweight, middle-aged, lying in bed sleeping initially pretends not to be awake however awakens easily after I tap her arm, appears comfortable, nontoxic, nursing at bedside HEENT normocephalic, head/scalp atraumatic and moist oral mucous membranes Neuro Neuro Narrative: Speech is normal quality however response time is a bit delayed at time Psych Mood & Affect: anxious Assessment & Plan Assessment/Plan (1) Hypokalemia: (2) Cognitive dysfunction: (3) Adult failure to thrive: PLAN: Plan Failure to Thrive -Suspect there are psychological and social components to this -PT/OT following -Case management consultation/social work following and working on placement Hypokalemia -Low at 3.3 today -40 mill equivalents given -Continue potassium 20 mill equivalents daily -Repeat BMP in a.m. 04/22/2022 Urinary incontinence -Seems to be voluntary -Patient does not notify nursing and sits in urine without telling anybody -Seems to be psychologically mediated -Pure wick in place Hypertension -Continue home amlodipine Seizure disorder -Continue home Keppra -Continue home phenobarbital -Continue home Topamax Neuropathy -Continue home gabapentin Suspected developmental delay -Follow-up as above -Patient has never had previous services GERD -continue home PPI by -Continue home Carafate DVT prophylaxis -Continue enoxaparin 40 mg daily CODE STATUS Full code Charges/Coding Visit Charges Inpatient E&M: 11714 Subs Hosp L1
[2022-04-21 14:32] VITALS: BP 114/80; PULSE 79; RESP 18; TEMP 36.8; O2SAT 98
--- NOTE | 2022-04-21 16:40 | CASEMGMT ---
Social Work SW met with pt to discuss discharge plan. Initally pt laying with eyes closed and would not respond to name being called or SW rubbing pt shoulder. SW left and reentered room. Pt then stirring and SW approached pt and she was willing to speak with SW. SW spoke with pt regarding discharge plan. SW explained that SNF were being explored and that [facility] and [facility] were unable to accept. A list of SNF providers including quality and resource use data and consistent with the patient?s preferred geographic region, medical needs, and insurance network were provided from the [facility]. SW explained that [facility] is only [facility] that may be a possibility. Pt states she does not have to stay in [place] but did not take initiation to look at list or give other options. Pt states she is ok with [facility]. SW reached out to [facility] and they have not yet made a decision on acceptance. During conversation pt did make eye contact with this worker and did attempt to converse very quietly. Pt answered I don't know to most questions. SW reviewed chart. Per nursing staff pt did get out of bed today and walk to the bathroom for BM. Pt's previous inability to do this was prohibiting factor in acceptance to psychiatric facility while in the ED. ZORAIDA collaborated with LESLIE Mcguire Steel Wheel Engraver regarding pt case. After discussion, it was decided that a second attempt at psychiatric placement would be warranted at this time. Physician notified and agreeable that this is the correct course of action. Phone call placed to Crisis and SW spoke with Kimberley. SW explained pt history during this hospitalization and referral made. Crisis to come this evening to evaluate pt for placement. Pt bedside nurse updated. Plan: Evaluation for psychiatric hospitalization SHAUN Vega
--- NOTE | 2022-04-21 16:54 | CASEMGMT ---
Social Work For continuity of care of this patient and in direct relation to referral made on 04.14.22, this grant writer called Katia Westbrook at [facility] [employer] of DD ([phone], extension [phone]). Due to patient remaining in the hospital and trying to keep things moving forward, this grant writer inquired whether Board of DD would be able to come to the hospital to speak with patient, to help start process of determining edibility through this agency. Katia indicated that patient will need to know her doctors, as one component of this process. Let Katia know that uncertain whether patient will be able to do this or not (this grant writer has noted in prior visits that patient historically is unable to recall, or name her providers). This grant writer did a brief chart review and noted from ED SW assessment that patient has indicated graduation from [employer] in [place], and on [facility] due to seizure disorder. No history of mental health treatment. Katia will check with gym supervisor to see if this is enough information to get things started. Expressed appreciation, advocating desire to keep things moving forward, to determine what support services will ultimately be available to help this patient in the usp. Update to SHAUN Barba who is assigned SW to MS3. -CANDE James MSW
--- NOTE | 2022-04-21 19:22 | CM.ED ---
SW received letter from [facility] stating that the report this report writer made was not accepted for investigation. Jammie CASTELLON
[2022-04-21 20:30] VITALS: BP 133/92; PULSE 88; RESP 16; TEMP 36.6; O2SAT 99
--- NOTE | 2022-04-21 22:10 | NURSING ---
Crisis team called needed ekg, labs and note for placement. paperwork faxed
[2022-04-22 02:00] VITALS: BP 139/95; PULSE 87; RESP 14; TEMP 36.6; O2SAT 99
[2022-04-22 04:00] LABS: Potassium 3.6 mmol/L (3.5-5.1)
[2022-04-22] MEDS: Menthol/Lanolin/Calamine/Znox 113 GM Tube 1 APPLIC TOPICAL (05:49)
[2022-04-22] MEDS: Sucralfate 1 GM Tablet PO (05:49)
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
--- NOTE | 2022-04-22 09:36 | CASEMGMT ---
Social Work Per reports from nursing staff and physician, pt was discharged this morning to [facility]. SW sent message to [facility] via [employer] to cancel referral. SHAUN Vega
--- NOTE | 2022-05-05 14:45 | CM.ED ---
Social Work Note SW received letter from [facility] explaining their agency was accepting the referral for assessment/investigation given by this social services designee. CSB case management rn is Iona Tinajero and the supervisor coke handling is Patricia Farrell. Erika CUBA, LESLIE
== END 2022-04-22 07:20 ==
LOC: ED 21:52 → MS3 04-18 17:21
PROVIDERS: Emergency Medicine; Family Medicine; Admitting Provider Internal Medicine; Emergency Provider Emergency Medicine; PCP Family Medicine; Visit Provider Internal Medicine
DX: R62.7 Adult failure to thrive (principal); G40.909 Epilepsy, unspecified, not intractable, without status epilepticus; E87.6 Hypokalemia; R53.1 Weakness; I10 Essential (primary) hypertension; Z60.9 Problem related to social environment, unspecified; K21.9 Gastro-esophageal reflux disease without esophagitis; Z87.891 Personal history of nicotine dependence; R32 Unspecified urinary incontinence; G62.9 Polyneuropathy, unspecified; F09 Unspecified mental disorder due to known physiological condition; Z79.899 Other long term (current) drug therapy
CPT/HCPCS: 90686; 36415; 80048; 80053; 80307; 81001; 81025; 82077; 83735; 84100; 84132; 84443; 85025; 87811; 93005; 94668; 96372; 97116; 97162; 97166; 97530; 97535; 99221; 99252; 99285; A4216; G0378; G0463

== ENCOUNTER → 2023-08-17 | Outpatient (REF) | payer MEDICAID, SELFPAY ==
[2023-08-17 08:50] LABS: Hematocrit 41.8 % (37-47); Mean Corp Hgb Conc 31.1 g/dL (32-36); Mean Corpuscular Hgb 29.5 pg (27.0-32.0); Mean Platelet Vol. 13.3 fl (6.2-12.0); Platelet Count 115 K/mm3 (150-450); RBC Distribution Width CV 13.3 % (11.6-14.6); RBC Distribution Width SD 47.2 fl (35.1-43.9); White Blood Count 5.2 K/mm3 (4.4-11.0)
[2023-08-17 09:32] LABS: Anion Gap 6 (5-15); BUN 13 mg/dL (7-18); BUN/Creat Ratio 18.7 RATIO (10-20); Calcium,Total 8.4 mg/dL (8.5-10.1); Chloride 107 mmol/L (98-107); Creatinine, Serum 0.69 mg/dL (0.55-1.02); EST Glomerular Filtration Rate 100 mL/min (>60); Est Glom Filt Rate - Afr Amer 121 mL/min (>60); Glucose 73 mg/dL (74-106); Sodium Level 142 mmol/L (136-145)
[2023-08-19 10:11] LABS: KEPPRA (LEVETIRACETAM) 15.1 ug/mL (10.0-40.0)
== END | disposition home or self-care (01) ==
LOC: OLS.WCC 06:10
PROVIDERS: PCP Family Medicine; Referring Provider Family Medicine; Visit Provider Family Medicine
DX: E87.6 Hypokalemia (principal); Z79.899 Other long term (current) drug therapy
CPT/HCPCS: 36415; 80048; 80177; 85027

== ENCOUNTER → 2023-11-17 | Outpatient (REF) | payer MEDICAID, SELFPAY ==
[2023-11-17 08:13] LABS: Hematocrit 43.6 % (37-47); Mean Corp Hgb Conc 32.1 g/dL (32-36); Mean Corpuscular Hgb 31.7 pg (27.0-32.0); Mean Corpuscular Volume 98.6 fL (81-99); Mean Platelet Vol. 12.3 fl (6.2-12.0); Platelet Count 134 K/mm3 (150-450); RBC Distribution Width CV 12.8 % (11.6-14.6); RBC Distribution Width SD 46.5 fl (35.1-43.9); Red Blood Count 4.42 M/mm3 (4.2-5.4); White Blood Count 5.3 K/mm3 (4.4-11.0)
[2023-11-17 08:31] LABS: Anion Gap 7 (5-15); BUN 9 mg/dL (7-18); BUN/Creat Ratio 12.8 RATIO (10-20); Calcium,Total 8.5 mg/dL (8.5-10.1); Chloride 108 mmol/L (98-107); EST Glomerular Filtration Rate 98 mL/min (>60); Est Glom Filt Rate - Afr Amer 119 mL/min (>60); Glucose 78 mg/dL (74-106); Potassium 3.9 mmol/L (3.5-5.1); Sodium Level 139 mmol/L (136-145)
== END | disposition home or self-care (01) ==
LOC: OLS.WCC 05:00
PROVIDERS: PCP Family Medicine; Visit Provider Family Medicine
DX: E87.6 Hypokalemia (principal); I10 Essential (primary) hypertension; Z79.899 Other long term (current) drug therapy
CPT/HCPCS: 36415; 80048; 85027

== ENCOUNTER → 2023-12-06 05:00 | Outpatient (REF) | payer MEDICAID, SELFPAY ==
[2023-12-06 09:39] LABS: Valproic Acid (Depakene) Level 39 ug/mL (50-100)
== END ==
LOC: OLS.WCC 05:00
PROVIDERS: PCP Family Medicine; Visit Provider Family Medicine
DX: R56.9 Unspecified convulsions (principal)
CPT/HCPCS: 36415; 80164; 80184

== ENCOUNTER → 2024-02-16 | Outpatient (REF) | payer MEDICAID, SELFPAY ==
[2024-02-16 08:13] LABS: Hematocrit 39.8 % (37-47); Hemoglobin 13.1 g/dL (12.0-15.0); Mean Corp Hgb Conc 32.9 g/dL (32-36); Mean Corpuscular Volume 94.1 fL (81-99); Platelet Count 137 K/mm3 (150-450); RBC Distribution Width CV 12.5 % (11.6-14.6); RBC Distribution Width SD 43.4 fl (35.1-43.9); Red Blood Count 4.23 M/mm3 (4.2-5.4); White Blood Count 4.4 K/mm3 (4.4-11.0)
[2024-02-16 08:24] LABS: Anion Gap 3 (5-15); BUN 7 mg/dL (7-18); BUN/Creat Ratio 11.2 RATIO (10-20); Calcium,Total 8.3 mg/dL (8.5-10.1); Chloride 106 mmol/L (98-107); Creatinine, Serum 0.62 mg/dL (0.55-1.02); EST Glomerular Filtration Rate 113 mL/min (>60); Est Glom Filt Rate - Afr Amer 136 mL/min (>60); Glucose 82 mg/dL (74-106); Potassium 3.9 mmol/L (3.5-5.1); Sodium Level 136 mmol/L (136-145)
[2024-02-16 08:26] LABS: Valproic Acid (Depakene) Level 69 ug/mL (50-100)
[2024-02-19 16:08] LABS: KEPPRA (LEVETIRACETAM) 16.5 ug/mL (10.0-40.0)
== END | disposition home or self-care (01) ==
LOC: OLS.WCC 04:00
PROVIDERS: PCP Family Medicine; Referring Provider Family Medicine; Visit Provider Family Medicine
DX: I10 Essential (primary) hypertension (principal); Z79.899 Other long term (current) drug therapy
CPT/HCPCS: 36415; 80048; 80164; 80177; 80184; 85027

== ENCOUNTER → 2024-05-20 | Outpatient (REF) | payer MEDICAID, SELFPAY ==
[2024-05-20 09:06] LABS: Hematocrit 42.2 % (37-47); Hemoglobin 13.7 g/dL (12.0-15.0); Mean Corp Hgb Conc 32.5 g/dL (32-36); Mean Corpuscular Hgb 31.6 pg (27.0-32.0); Mean Corpuscular Volume 97.5 fL (81-99); Mean Platelet Vol. 12.7 fl (6.2-12.0); POSITIVE COUNT YES; RBC Distribution Width CV 12.5 % (11.6-14.6); RBC Distribution Width SD 44.8 fl (35.1-43.9); Red Blood Count 4.33 M/mm3 (4.2-5.4); White Blood Count 4.2 K/mm3 (4.4-11.0)
[2024-05-20 09:30] LABS: Scan Indicated on CBC? Y/N YES- FLAGS NOTED
[2024-05-20 14:44] LABS: Anion Gap 10 (5-15); BUN 8 mg/dL (4-19); BUN/Creat Ratio 10.7 RATIO (10-20); Calcium,Total 8.3 mg/dL (7.6-11.0); Carbon Dioxide 23.8 mmol/L (21.0-32.0); Chloride 100 mmol/L (98-108); Creatinine, Serum 0.73 mg/dL (0.70-1.20); EST Glomerular Filtration Rate 107 (>60); Glucose 72 mg/dL (70-99); Sodium Level 135 mmol/L (133-145)
== END | disposition home or self-care (01) ==
LOC: OLS.WCC 05:00
PROVIDERS: PCP Family Medicine; Visit Provider Family Medicine
DX: I10 Essential (primary) hypertension (principal); Z79.899 Other long term (current) drug therapy
CPT/HCPCS: 36415; 80048; 85027

== ENCOUNTER → 2024-08-21 | Outpatient (REF) | payer MEDICAID, SELFPAY ==
--- OUTSIDE RECORDS SUMMARY | 2024-08-21 04:36 | XMS RPT_ITS | CCD ---
Author Organization 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 Role Phone PROVIDER, UNKNOWN Unavailable Unavailable Gali Hidalgo Unavailable Unavailable Gali Tran Unavailable Unavailable PROVIDER, UNKNOWN Unavailable Unavailable Gali Hidalgo Unavailable Unavailable Ruba Diggs Unavailable Unavailable Gali Hidalgo Primary Care Provider Gali Hidalgo Primary Care Provider Aneesh Ludwig MD Unavailable [phone] Gianfranco Sanchez MD Primary Care Provider Gali Hidalgo Primary Care Provider [phone] Aneesh Ludwig MD Unavailable Gianfranco Sanchez MD Primary Care Provider Aneesh Ludwig MD Unavailable [phone] Gianfranco Sanchez MD Primary Care Provider Dr. Himanshu Sanchez Primary Care Provider [phone] Dr. Padilla Huerta Emergency Provider Dr. Awa Massey Admit Provider Dr. Awa Massey Other Provider Dr. Franky Hatch Other Provider Friend, Dr. Easley Attending Provider Dr. Awa Massey Attending Provider Dr. Franky Hatch Attending Provider Dr. Zara Benson Attending Provider Unavailable Dr. Zara Benson Other Provider Unavailable Dr. Zara Benson Referring Provider Unavailable Dr. Patricia Shannon Emergency Provider Dr. Steven Mullen Admit Provider Dr. Steven Mullen Attending Provider Dr. Steven Mullen Other Provider Dr. Himanshu Sanchez Primary Care Provider Dr. Padilla Huerta Emergency Provider Dr. Awa Massey Admit Provider Dr. Awa Massey Other Provider Dr. Franky Hatch Other Provider Emma, Dr. Easley Attending Provider Dr. Zara Benson Referring Provider Unavailable Dr. Awa Massey Attending Provider Dr. Franky Hatch Attending Provider Dr. Zara Benson Attending Provider Unavailable Marcelino, Dr. Branham Other Provider Unavailable Mirtha, Dr. Gomez Emergency Provider Agbhavik, Dr. Harris Admit Provider Dr. Steven Mullen Attending Provider Dr. Steven Mullen Other Provider Dr. Gali Coates Attending Provider Dr. Gali Coates Other Provider Aneesh Ludwig MD Unavailable Gianfranco Sanchez MD Primary Care Provider Physician, No Pcp Primary Care Provider UnavailDUSTIN Nagel Attending Unavailable PHYSICIAN, NO PCP Primary Care Unavailable Bo MONAHAN, Nila Haywood Primary Care Provider [phone] CONSULT, INFECTIOUS DISEASE Consulting Unav MATTHEW Estes Attending Unavailable RADHA ERICKSON Referring Unavailable HINDRYAN, CHERY Knight Admitting Unavailable ZZ DO NOT USE BO, NILA Primary Care Unavail able WESLEY DO~[id number], MARYJANE Haywood Attending Unavailable WESLEY DO~[id number], MARYJANE Haywood Admitting Unavailable ERASMO PAC, KUNAL Consulting Unavailable ERASMO PAC, ZARA Tee Consulting Unavailable SYLVIA MONAHAN, JUNIOR Tee Consulting Unavailable SYLVIA MONAHAN, JUNIOR Tee Consulting Unavailable MARYJANE DO, LETY Haywood Consulting Unavailable MARYJANE DO, LETY Haywood Consulting Unavailable ZZ DO NOT USE BO, NILA Consulting Unavail able BO MONAHAN, NILA Consulting Unavailable MARYJANE DO, LETY Haywood Consulting Unavailable WESLEY DO~[id number], MARYJANE Haywood Attending Unavailable WESLEY DO~[id number], MARYJANE Haywood Admitting Unavailable ZZ DO NOT USE BO, NILA Primary Care Unavail able MARYJANE TRUONG, LETY Haywood Consulting Unavailable WILI MONAHAN, AMRONI Consulting Unavailable WILI MONAHAN, YAMILETH Consulting Unavailable TETO MONAHAN, IAM Consulting Unavailable TETO MONAHAN, IAM Consulting Unavailable ZZ DO NOT USE BO, NLIA Consulting Unavail able BO MONAHAN, NILA Consulting Unavailable NONE, NONE Consulting Unavailable ZZ DO NOT USE BO, NILA Admitting Unavail able ZZ DO NOT USE BO, NILA Attending Unavail able BO MONAHAN~[id number], BO NILA Primary Care Lizzy vailarosalio WEBBER DR Consulting Unavailable MAUREEN GODOY, OF [facility] ZZ DO NOT USE BO, NILA Attending Unavail able ZZ DO NOT USE BO, NILA Primary Care Unavail able ZZ DO NOT USE BO, NILA Admitting Unavail able NONE NONE, NONE~[id number] NONE Consulting Unavailable NONE, NONE Consulting Unavailable MAUREEN GODOY, [facility] DO NOT USE BO, NILA Attending Unavail able ZZ DO NOT USE BO, NILA Primary Care Unavail able ZZ DO NOT USE BO, NILA Admitting Unavail able NONE NONE, NONE~[id number] NONE Consulting Unavailable NONE, NONE Consulting Unavailable MAUREEN GODOY, [facility] BO MONAHAN, NILA Consulting Unavailable BO MONAHAN~[id number], BO NILA Admitting Lizzy vailable BO MONAHAN~[id number], BO NILA Attending Lizzy vailable BO MONAHAN~[id number], BO NILA Primary Care Lizzy vailable BO MONAHAN, NILA Consulting Unavailable MAUREEN GODOY, [facility] Consulting [facility] DO NOT USE BO, NILA Primary Care Unavail able NIMISHA MONAHAN~[id number], NIMISHA Alex Attending Unavailable NIMISHA MONAHAN~[id number], NIMISHA Alex Admitting Unavailable NONE NONE, NONE~[id number] NONE Consulting Unavailable NONE, NONE Consulting Unavailable MAUREEN [facility] Consulting Unavailable JD MONAHAN, DR CHINA Peña Consulting Unavailabl e NONE, NONE Consulting Unavailable ZZ DO NOT USE BO, NILA Attending Unavail able ZZ DO NOT USE BO, NILA Admitting Unavail able BO MONAHAN~[id number], BO NILA Primary Care Lizzy vailable DECLINED, DR Consulting Unavailable MAUREEN GODOY, [facility] Consulting [facility] DO NOT USE BO, NILA Primary Care Unavail able DRE DO~[id number], DRE RADHA J Admitting Unavailable DRE DO~[id number], DRE RADHA J Attending Unavailable GARCIA GALINDO DO Consulting Unavailable GARCIA GALINDO DO Consulting Unavailable LINDA MONAHAN, CHEMO Andres Consulting Unavailable LINDA MONAHAN, CHEMO Andres Consulting Unavailable HEATHER MONAHAN, DR RICHARD Infante Consulting Unavail able HEATHER MONAHAN, DR RICHARD Infante Consulting Unavail able WILI MONAHAN, YAMILETH Consulting Unavailable WILI MONAHAN, YAMILETH Consulting Unavailable DRE DORADHA Consulting Unavailable DRE RADHA TRUONG Consulting Unavailable EBENEZER RADER DO Consulting Unavailable EBENEZER RADER DO Consulting Unavailable ZZ DO NOT USE BO, NILA Consulting Unavail able BO MONAHAN, NILA Consulting Unavailable Laura MONAHAN, Dr. Downs Primary Care Provider Audie Akers MD Attending Provider Unavailable Audie Akers MD Referring Provider Unavailable Audie Abreu Attending Unavailable Audie Abreu Referring Unavailable Himanshu Grant Primary Care Unavaila rosalio MUNOZ, Himanshu Primary Care Unavaila Audie Dale Attending Unavailable Savage Grantophe Primary Care Unavaila Audie Dale Attending Unavailable Audie Abreu Referring Unavailable Himanshu Grant Primary Care UnavailAudie Falcon Attending Unavailable Himanshu Grant Primary Care UnavailAudie Falcon Attending Unavailable Allergies Allergy Classification Reported Allergen(s) Allergy Type Date of Onset Reaction(s) Facility (20 sources) Naproxen Drug Allergy 05-21-2017 [place], [place] (20 sources) Fluconazole Drug Allergy 07-04-2014 Unknown [facility] Work Phone: (1 source) Fluconazole Drug Allergy [facility] Repository (1 source) Naproxen Drug Allergy [facility] Repository (1 source) Fluconazole Drug Allergy 04-10-2022 [facility] Repository (1 source) Naproxen Drug Allergy 04-10-2022 [facility] Repository Medications Current Medications Medication Drug Class(es) Dates Sig (Normalized) Sig (Original) albuterol 0.833 mg/ml / ipratropium bromide 0.167 mg/ml inhalation solution (2 sources) Anticholinergic, beta2-Adrenergic Agonist Start: 02-23-2019 End: 02-28-2019 ipratropium-albut clifton (DUONEB) nebulizer solution 1 ampule amoxicillin 875 mg / clavulanate 125 mg oral tablet (4 sources) Penicillin-class Antibacterial Start: 10-09-2020 take 875 mg by mouth every twelve hours Amoxicillin-Pot Clavulanate Active 875 MG PO Q12H October 09, 2020 10:39pm Start: 02-27-2019 End: 03-02-2019 take 1 tablet by mouth twice daily amoxicillin-clavulanate (AUGMENTIN) 875-125 MG per tablet Take 1 tablet by mouth 2 times daily for 3 days 6 tablet 0 02/27/2019 03/02/2019 Active carvedilol 6.25 mg oral tablet (1 source) alpha-Adrenergic Clementina, beta-Adrenergic Clementina Start: 04-22-2022 take 1 tablet by mouth twice daily Carvedilol 6.25 mg Tablet Active 6.25 mg PO TWICE A DAY 0 April 22, 2022 1:00am cefTRIAXone sodium 1 g in dextrose 5 % 50 mL IVPB (add-vantage) (1 source) Start: 02-25-2019 cefTRIAXone sodium 1 g in dextrose 5 % 50 mL IVPB (add-vantage) docusate sodium 50 mg / sennosides, chcf 8.6 mg oral tablet (18 sources) Start: 03-09-2022 Sennosides-Docusat e Sodium (Stool Softener-Stimulant Laxat) 8.6-50 mg Tablet Active 2 {tbl} PO TWICE DAILY NEEDED as needed for Constipation 0 March 09, 2022 1:00am Start: 03-09-2022 Start: 04-06-2020 take 2 tablets by mo [facility] twice daily Sennosides-Docusate Sodium Active 2 TABLET PO TWICE A DAY 120 April 06, 2020 12:18pm Start: 04-29-2019 take 2 tablets by mo [facility] twice daily as needed for constipation sennosides-docusate sodium (SENOKOT-S) 8.6-50 MG tablet Take 2 tablets by mouth 2 times daily As needed for constipation 60 tablet 3 04/29/2019 Active Start: 04-25-2019 End: 04-27-2019 sennosides-docusate sodium (SENOKOT-S) 8.6-50 MG tablet 2 tablet 0.4 ml enoxaparin sodium 100 mg/ml prefilled syringe (2 sources) Low Molecular Weight Heparin Start: 04-21-2019 enoxaparin (LOVENOX) injection 40 mg Start: 11-05-2018 enoxaparin (LO VENOX) injection 40 mg erythromycin 0.005 mg/mg ophthalmic ointment (1 source) Macrolide, Macrolide Antimicrobial Start: 08-31-2021 Erythromycin Active 0.5 INCH LEFT EYE THREE TIMES A DAY 3.5 August 31, 2021 12:00am ferrous sulfate 325 mg oral tablet (20 sources) Start: 04-07-2022 Ferrous Sulfat e (Ferosul) 325 mg (65 mg iron) tablet Active MG April 07, 2022 12:00am Start: 03-17-2020 take 1 tablet by mouth once da brenda Ferrous Sulfate 325 MG tablet Active 325 mg PO DAILY@0800 March 17, 2020 1:00am Start: 03-17-2020 [facility] ferrous sulfate 325 mg (65 mg iron) tablet Indications: Iron deficiency anemia, unspecified iron deficiency anemia type Take 1 tablet by mouth daily with breakfast. 30 tablet 2 05/19/2020 Active Start: 04-28-2019 ferrous sulfat e tablet 325 mg Start: 02-27-2019 End: 04-29-2019 take 1 tablet by mouth every other day ferrous sulfate 325 (65 Fe) MG tablet Take 1 tablet by mouth every other day 30 tablet 3 04/29/2019 Active Start: 02-27-2019 ferrous sulfat e tablet 325 mg Comment on above: Take 1 tablet by charis th daily with breakfast. folic acid 1 mg oral tablet (18 sources) Start: 023 End: take 1 tablet by mouth at breakfast Folic Acid 1 mg tablet Active 1 mg PO WITH BREAKFAST April 07, 2022 3:26am furosemide 40 mg oral tablet (1 source) Loop Diuretic take 1 tablet by mouth once daily furOSEmide 40 MG tablet Take 1 tablet by mouth daily. 0 Active 1 ml heparin sodium, porcine 5000 unt/ml prefilled syringe (1 source) Unfractionated Heparin, Anti-coagulant Start: heparin (porcine) injection 5,000 Units 4 ml labetalol hydrochloride 5 mg/ml cartridge (1 source) beta-Adrenergic Clementina Start: labetalol (NORMODYNE;TRANDATE) injection 20 mg levETIRAcetam 1000 mg oral tablet (20 sources) Start: take 1.5 tablets by mouth twice daily Levetiracetam 1000 MG tablet Indications: Status epilepticus Take 1.5 tablets by mouth 2 times daily. 0 04/06/2023 Active Start: 08-29-2021 levETIRAcetam (KEPPRA) tablet 1,000 mg Start: 04-23-2019 levETIRAcetam (KEPPRA) tablet 1,000 mg Start: 04-22-2019 End: 04-23-2019 levETIRAcetam (KEPPRA) 100 M G/ML solution 1,000 mg Start: 02-25-2019 levETIRAcetam (KEPPRA) tablet 1,000 mg Start: 11-07-2018 levETIRAcetam (KEPPRA) tablet 1,000 mg Start: 09-17-2016 End: 04-06-2023 take 1 tablet by mouth twice daily Levetiracetam (Keppra) 1,000 MG tablet Discontinued 1000 mg PO TWICE A DAY January 16, 2018 1:00am April 06, 2020 12:27pm Start: 09-17-2016 End: 06-23-2017 take 1 tablet by mouth every twelve hours Levetiracetam 1,000 MG tablet Discontinued 1000 mg PO Q12H September 17, 2016 12:00am June 23, 2017 10:01am Comment on above: Take 1,000 mg by charis th twice daily. 1 ml LORazepam 2 mg/ml injection (2 sources) Benzodiazepine Start: 04-22-2019 LORazepam (ATIVAN) injection 2 mg Start: 11-07-2018 LORazepam (ATI VAN) injection 2 mg magnesium hydroxide 80 mg/ml oral suspension (3 sources) Start: 04-21-2019 magnesium hydr oxide (MILK OF MAGNESIA) 400 MG/5ML suspension 30 mL Start: 02-23-2019 magnesium hydr oxide (MILK OF MAGNESIA) 400 MG/5ML suspension 30 mL Start: 11-05-2018 magnesium hydr oxide (MILK OF MAGNESIA) 400 MG/5ML suspension 30 mL melatonin 3 mg oral capsule (3 sources) Start: 04-29-2019 take 1 capsule by mouth once daily in the evening Melatonin 3 MG CAPS Take 3 mg by mouth every evening 30 capsule 3 04/29/2019 Active Start: 04-25-2019 melatonin ER t ablet 2 mg Menthol / Zinc Oxide (8 sources) Start: 03-09-2022 Menthol-Zinc O xide (Calmoseptine) 0.44-20.6 % Ointment Active 1 NMA TOPICAL THREE TIMES A DAY 0 March 09, 2022 1:00am Please contact the information source for Protocol details. Start: 03-09-2022 Menthol-Zinc O xide (Calmoseptine) 0.44-20.6 % Ointment Active 1 APPLIC TOPICAL THREE TIMES A DAY 0 March 09, 2022 12:00am miconazole nitrate 0.02 mg/mg topical powder (1 source) Azole Antifungal Start: 02-23-2019 miconazole (MICOTIN) 2 % powder modafinil 200 mg oral tablet (3 sources) Sympathomimetic-li ke Agent Start: 04-06-2020 take 100 mg by mouth once daily Modafinil Active 100 MG PO DAILY@0600 30 April 06, 2020 12:18pm 2 ml ondansetron 2 mg/ml injection (3 sources) Serotonin-3 Receptor Antagonist Start: 04-21-2019 ondansetron (ZOFRAN) injection 4 mg Start: 02-23-2019 ondansetron (Z OFRAN) injection 4 mg Start: 11-05-2018 ondansetron (Z OFRAN) injection 4 mg PHENobarbital 32 mg oral tablet (20 sources) Start: 04-07-2023 End: 04-06-2023 take 1 tablet by mouth once daily PHENobarbital 32.4 MG tablet Indications: Status epilepticus Take 1 tablet by mouth daily. 0 04/07/2023 04/06/2023 Discontinued Start: 04-06-2023 End: 05-06-2023 take 3 tablets by mouth at bedtime PHENobarbital 16.2 MG tablet Indications: Status epilepticus Take 3 tablets by mouth at bedtime. 90 tablet 0 04/06/2023 05/06/2023 Active Start: 04-03-2023 End: 04-06-2023 take 1 tablet by mouth every twenty-four hours PHENobarbital (LUMINAL) tablet 48.6 mg Start: 04-03-2023 End: 05-07-2023 take 1 tablet by mouth once daily PHENobarbital 32.4 M G tablet Indications: Status epilepticus Take 1 tablet by mouth daily. 30 tablet 0 04/07/2023 05/07/2023 Active Start: 03-31-2023 End: 04-03-2023 PHENobarbital (LUMINAL) tabl et 32.4 mg Start: 03-30-2023 End: 04-03-2023 take 1 tablet nasogastric route every twenty-four hours PHENobarbital (LUMINAL) tablet 48.6 mg Start: 02-26-2021 take 1 tablet by charis twice daily Phenobarbital 64.8 mg tablet Active 64.8 mg PO TWICE A DAY March 02, 2022 1:00am Start: 04-06-2020 take 2 tablets by mo [facility] twice daily Phenobarbital Active 64.8 MG PO TWICE A DAY 120 April 06, 2020 12:00am 2 tablets twice a day. Start: 04-27-2019 End: 04-06-2020 take 1 tablet by mouth twice daily Phenobarbital 97.2 MG tablet Discontinued 97.2 mg PO TWICE A DAY May 08, 2019 12:00am April 06, 2020 12:22pm Start: 04-23-2019 End: 04-23-2019 PHENobarbital (LUMINAL) inje ction 120 mg Start: 04-23-2019 End: 04-23-2019 PHENobarbital (LUMINAL) inje ction 60 mg End: 04-06-2023 take 1 tablet by mouth every twenty-four hours PHENobarbital 15 MG tablet Take 1 tablet by mouth every evening. 0 04/06/2023 Discontinued (Stop Taking at Discharge) End: 04-06-2023 take 1 tablet by mouth twice daily phenobarbital 30 MG tablet Take 1 tablet by mouth 2 times daily. 0 04/06/2023 Discontinued (Stop Taking at Discharge) polymyxin b 52413 unt/ml / trimethoprim 1 mg/ml ophthalmic solution (1 source) Dihydrofolate Reductase Inhibitor Antibacterial, Polymyxin-class Antibacterial Start: 02-24-2019 trimethoprim-polymyxin b (POLYTRIM) ophthalmic solution 1 drop microencapsulated potassium chloride 20 meq extended release oral tablet (7 sources) Start: 04-22-2022 End: 04-05-2023 Potassium chloride (K-DUR) tablet ER 40 mEq Start: 04-15-2022 End: 04-22-2022 take 1 tablet by mouth twice daily Potassium Chloride 20 mEq tablet,ER particles/crystals Discontinued 20 meq PO TWICE A DAY April 15, 2022 1:00am April 22, 2022 7:55am Start: 04-28-2019 End: 04-28-2019 potassium chloride (KLOR-CON M) extended release tablet 20 mEq Start: 02-25-2019 End: 02-25-2019 potassium chloride 10 mEq/10 0 mL IVPB (Peripheral Line) promethazine hydrochloride 25 mg oral tablet (1 source) Phenothiazine Start: 04-21-2019 promethazine (PHENERGAN) tablet 12.5 mg sucralfate 1000 mg oral tablet (17 sources) Aluminum Complex Start: 03-09-2022 End: 04-07-2022 Sucralfate 1 gram tablet Active 1 g PO 0700,1100,1600 April 07, 2022 3:26am Start: 03-09-2022 End: 04-07-2022 sulfamethoxazole 800 mg / trimethoprim 160 mg oral tablet (19 sources) Dihydrofolate Reductase Inhibitor Antibacterial, Sulfonamide Antimicrobial Start: 05-04-2022 End: 05-11-2022 take 1 tablet by mouth twice daily sulfamethoxazole-trimethoprim (Bactrim DS) 800-160 mg per tablet Take 1 tablet by mouth 2 (two) times a day for 7 days. 14 each 0 05/04/2022 05/11/2022 Active Start: 04-02-2022 End: 04-07-2022 Sulfamethoxazole-Trimethopri m 800-160 mg tablet Discontinued 1 {tbl} PO TWICE A DAY April 02, 2022 1:00am April 07, 2022 3:28am Start: 04-02-2022 End: 04-07-2022 Start: 04-02-2022 End: 04-07-2022 take 1 tablet by mouth twice daily Sulfamethoxazole-Trimethoprim Active 1 T ABLET PO TWICE A DAY April 07, 2022 2:26am Start: 02-17-2022 take 1 tablet by charis th twice daily Sulfamethoxazole-Trimethoprim Active 1 T ABLET PO TWICE A DAY February 17, 2022 12:00am Start: 09-19-2021 take 1 tablet by charis th twice daily Sulfamethoxazole-Trimethoprim Active 1 T ABLET PO TWICE A DAY September 19, 2021 12:00am triamcinolone acetonide 1 mg/ml topical lotion (4 sources) Corticosteroid triamcinolone (KENALOG) 0.1 % lotion Apply topically 3 times daily as needed 0 Active vitamin b12 0.5 mg oral tablet (11 sources) Vitamin B12 Start: take 2 tablets by mouth at breakfast Cyanocobalamin (Vitamin B-12) 500 mcg Tablet Active 1000 ug PO WITH BREAKFAST 0 March 09, 2022 1:00am Start: 03-09-2022 Start: 03-09-2022 take 1000 ug by mout h at breakfast Cyanocobalamin (Vitamin B-12) Active 1000 MCG PO WITH BREAKFAST March 09, 2022 12:00am (3 sources) Start: 03-09-2022 Completed/Discontinued Medications Medication Drug Class(es) Dates Sig (Normalized) Sig (Original) acetaminophen 325 mg oral tablet (18 sources) Start: 04-02-2023 End: 04-06-2023 take 1 tablet by mouth every four hours as needed Acetaminophen (TYLENOL) tablet 650 mg Start: 03-09-2022 take 1-10 tablets by mouth every six hours as needed for pain Acetaminophen (Tylenol) 325 mg Tablet Active 650 mg PO EVERY 6 HOURS NEEDED as needed for Pain 1-10 Or Fever>100.7 0 March 09, 2022 1:00am Start: 03-09-2022 Start: 04-06-2020 take 650 mg by mouth every four hours as needed Acetaminophen Active 650 MG PO EVERY 4 HOURS NEEDED April 06, 2020 12:18pm Start: 04-21-2019 acetaminophen (TYLENOL) tablet 650 mg Start: 02-23-2019 acetaminophen (TYLENOL) tablet 650 mg Start: 11-08-2018 End: 11-08-2018 acetaminophen (TYLENOL) tabl et 650 mg alteplase (CATHFLO) injection 1 mg (1 source) Start: 02-27-2019 End: 02-27-2019 alteplase (CATHFLO) injection 1 mg amLODIPine 5 mg oral tablet (20 sources) Dihydropyridine Calcium Channel Clementina Start: 04-03-2023 End: 04-06-2023 amLODIPine (NORVASC) tablet 10 mg Start: 04-02-2023 End: 04-03-2023 amLODIPine (NORVASC) tablet 10 mg Start: 09-16-2021 take 2 tablets by mo [facility] once daily Amlodipine 5 mg tablet Active 10 mg PO DAILY September 16, 2021 12:00am Start: 04-22-2019 End: 12-17-2021 take 1 tablet by mouth once daily amLODIPine (NORVASC) 5 mg tablet Take 1 tablet by mouth once daily. 90 tablet 0 12/17/2021 Active Start: 01-19-2018 End: 04-29-2019 take 1 tablet by mouth once daily amLODIPine (NORVASC) 10 MG tablet Take 1 tablet by mouth daily 30 tablet 0 01/19/2018 04/29/2019 Discontinued (Stop Taking at Discharge) Comment on above: [facility] ammonia 150 mg/ml nasal inhalant (1 source) Start: 08-29-2021 End: 08-29-2021 ammonia inhaler 0.3 mL ampicillin-sulbactam (UNASYN) 1.5 g IVPB minibag (1 source) Start: 04-21-2019 End: 04-23-2019 ampicillin-sulbactam (UNASYN) 1.5 g IVPB minibag bisacodyl 10 mg rectal suppository (1 source) Stimulant Laxative Start: 03-30-2023 End: 04-06-2023 bisacodyl (DULCOLAX) suppository 10 mg calcium chloride 0.0014 meq/ml / potassium chloride 0.004 meq/ml / sodium chloride 0.103 meq/ml / sodium lactate 0.028 meq/ml injectable solution (1 source) Start: 11-05-2018 End: 11-06-2018 lactated ringers infusion cefTRIAXone (ROCEPHIN) IV syringe 1 g (1 source) Start: 05-04-2022 End: 05-03-2022 cefTRIAXone (ROCEPHIN) IV syringe 1 g chlorhexidine gluconate 1.2 mg/ml mouthwash (4 sources) Start: 03-31-2023 End: 04-03-2023 chlorhexidine (PERIDEX) 0.12 % oral solution 15 mL Start: 04-21-2019 End: 04-22-2019 chlorhexidine (PERIDEX) 0.12 % solution 15 mL Start: 02-23-2019 End: 02-25-2019 chlorhexidine (PERIDEX) 0.12 % solution 15 mL Start: 11-05-2018 End: 11-06-2018 chlorhexidine (PERIDEX) 0.12 % solution 15 mL dexmedeTOMIDine in sodium chloride 0.9% (PRECEDEX) 400 mcg/100 mL (1 source) Start: 03-31-2023 End: 04-02-2023 dexmedeTOMIDine in sodium chloride 0.9% (PRECEDEX) 400 mcg/100 mL 12 hr dextromethorphan hydrobromide 30 mg / guaiFENesin 600 mg extended release oral tablet (6 sources) Uncompetitive X-xbrekc-G-aspart ate Receptor Antagonist, Sigma-1 Agonist Start: 03-29-2021 take 1 tablet by mouth twice daily dextromethorphan-g uaiFENesin (MUCINEX DM) 30-600 mg per tablet Indications: Cough Take 1 tablet by mouth twice daily. 24 tablet 1 03/29/2021 Active Comment on above: Take 1 tablet by charis twice daily. docusate sodium 100 mg oral capsule (8 sources) Start: 04-02-2020 take 1 capsule by mouth twice daily as needed for constipation docusate sodium (COLACE) 100 mg capsule Indications: Iron deficiency anemia, unspecified iron deficiency anemia type Take 1 capsule by mouth twice daily as needed for Constipation. 30 capsule 3 04/02/2020 Active Comment on above: Take 1 capsule by mo [facility] twice daily as needed for Constipation. Enoxaparin Sodium (LOVENOX) injection 40 mg (1 source) Start: 03-31-2023 End: 04-06-2023 Enoxaparin Sodium (LOVENOX) injection 40 mg esomeprazole 40 mg granules for oral suspension (1 source) Proton Pump Inhibitor Start: 03-30-2023 End: 04-03-2023 esomeprazole (NEXIUM) oral granules packet 40 mg 2 ml famotidine 10 mg/ml injection (5 sources) Histamine-2 Receptor Antagonist Start: 04-21-2019 End: 04-22-2019 famotidine (PEPCID) injection 20 mg Start: 02-25-2019 famotidine (PE PCID) tablet 20 mg Start: 02-23-2019 End: 02-25-2019 famotidine (PEPCID) injectio n 20 mg Start: 11-05-2018 End: 11-06-2018 famotidine (PEPCID) injectio n 20 mg take 1 tablet by charsi once daily faMOTIdine 20 MG tablet Take 1 tablet by mouth daily. 0 Active 2 ml fentaNYL 0.05 mg/ml injection (1 source) Opioid Agonist Start: 02-23-2019 End: 02-23-2019 fentaNYL (SUBLIMAZE) injection 150 mcg Start: 02-23-2019 End: 02-23-2019 fentaNYL (SUBLIMAZE) injecti on 150 mcg gabapentin 400 mg oral capsule (20 sources) Anti-epileptic Agent Start: 04-03-2023 End: 04-06-2023 Gabapentin (NEURONTIN) capsule 400 mg Start: 03-30-2023 End: 04-03-2023 Gabapentin (NEURONTIN) capsu le 400 mg Start: 02-24-2019 gabapentin (NE URONTIN) capsule 600 mg Start: 01-19-2018 End: 04-06-2020 take 1 capsule by mouth twice daily Gabapentin (Neurontin) 300 MG capsule Discontinued 300 mg PO TWICE A DAY June 18, 2018 12:00am April 06, 2020 12:27pm Comment on above: Take 300 mg by mouth twice daily. For 180 days hydrOXYzine hydrochloride 25 mg oral tablet (3 sources) Antihistamine Start: End: take 1 tablet by mouth three times daily as needed hydrOXYzine (ATARAX) 25 MG tablet Take 1 tablet by mouth 3 times daily as needed for Itching 90 tablet 0 01/19/2018 04/29/2019 Discontinued (Stop Taking at Discharge) iron sucrose (VENOFER) 50 mg in sodium chloride 0.9 % 50 mL IVPB (1 source) Start: End: iron sucrose (VENOFER) 50 mg in sodium chloride 0.9 % 50 mL IVPB levETIRAcetam (KEPPRA) 1,000 mg in sodium chloride 0.9 % 100 mL IVPB (1 source) Start: End: levETIRAcetam (KEPPRA) 1,000 mg in sodium chloride 0.9 % 100 mL IVPB levETIRAcetam (KEPPRA) 1,250 mg in Sodium chloride 0.9%, with overfill 122.5 mL (total volume) IVPB (1 source) Start: End: take 1250 mg intravenously every twelve hours levETIRAcetam (KEPPRA) 1,250 mg in Sodium chloride 0.9%, with overfill 122.5 mL (total volume) IVPB levETIRAcetam (KEPPRA) 1,500 mg in sodium chloride 0.9 % 100 mL IVPB (2 sources) Start: End: levETIRAcetam (KEPPRA) 1,500 mg in sodium chloride 0.9 % 100 mL IVPB Start: 11-05-2018 End: 11-05-2018 levETIRAcetam (KEPPRA) 1,500 mg in sodium chloride 0.9 % 100 mL IVPB levETIRAcetam (KEPPRA) 1,500 mg in Sodium chloride 0.9%, with overfill 125 mL (total volume) IVPB (2 sources) Start: 04-06-2023 End: 04-06-2023 take 1500 mg intravenously every twelve hours levETIRAcetam (KEPPRA) 1,500 mg in Sodium chloride 0.9%, with overfill 125 mL (total volume) IVPB Start: 03-30-2023 End: 04-02-2023 take 1500 mg intravenously every twelve hours levETIRAcetam (KEPPRA) 1,500 mg in Sodium chloride 0.9%, with overfill 125 mL (total volume) IVPB 50 ml magnesium sulfate 80 mg/ml injection (1 source) Start: 03-30-2023 End: 04-04-2023 Magnesium sulfate 4 g in sterile water 50 ml premix IVPB 2 ml midazolam 1 mg/ml injection (2 sources) Benzodiazepine Start: 02-23-2019 End: 02-23-2019 midazolam (VERSED) 2 MG/2ML injection midazolam (VERSED) 100 mg in dextrose 5 % 100 mL infusion (2 sources) Start: 04-21-2019 End: 04-23-2019 midazolam (VERSED) 100 mg in dextrose 5 % 100 mL infusion Start: 11-05-2018 End: 11-06-2018 midazolam (VERSED) 100 mg in dextrose 5 % 100 mL infusion pantoprazole 40 mg delayed release oral tablet (18 sources) Proton Pump Inhibitor Start: 03-09-2022 End: 04-06-2023 Pantoprazole (PROTONIX) tablet DR 40 mg PHENobarbital (LUMINAL) 120 mg in sodium chloride 0.9 % 100 mL IVPB (3 sources) Start: 04-25-2019 End: 04-27-2019 PHENobarbital (LUMINAL) 120 mg in sodium chloride 0.9 % 100 mL IVPB Start: 04-24-2019 End: 04-25-2019 PHENobarbital (LUMINAL) 120 mg in sodium chloride 0.9 % 100 mL IVPB Start: 04-24-2019 End: 04-24-2019 PHENobarbital (LUMINAL) 120 mg in sodium chloride 0.9 % 100 mL IVPB phenytoin 50 mg chewable tablet (20 sources) Anti-epileptic Agent Start: 04-22-2019 End: 04-25-2019 phenytoin (DILANTIN) chewable tablet 100 mg Start: 02-23-2019 phenytoin (DIL ANTIN) 125 MG/5ML suspension 100 mg Start: 11-07-2018 phenytoin (DIL ANTIN) chewable tablet 150 mg Start: 01-19-2018 End: 04-29-2019 take 3 tablets by mouth twice daily phenytoin (DILANTIN) 50 MG tablet Take 3 tablets by mouth 2 times daily 180 tablet 0 02/28/2019 04/29/2019 Discontinued (Stop Taking at Discharge) Start: 08-20-2015 End: 08-25-2015 take 3 capsules by mouth twice daily Phenytoin Sodium Extended 100 MG capsule Discontinued 300 mg PO TWICE A DAY 60 August 20, 2015 12:00am August 25, 2015 7:51pm Start: 08-20-2015 End: 08-25-2015 phenytoin (DILANTIN) 1,300 mg in sodium chloride 0.9 % 250 mL IVPB (loading dose) (1 source) Start: 04-21-2019 End: 04-21-2019 phenytoin (DILANTIN) 1,300 mg in sodium chloride 0.9 % 250 mL IVPB (loading dose) phenytoin (DILANTIN) 150 mg in sodium chloride 0.9 % 100 mL IVPB (maintenance dose) (1 source) Start: 11-05-2018 End: 11-07-2018 phenytoin (DILANTIN) 150 mg in sodium chloride 0.9 % 100 mL IVPB (maintenance dose) phenytoin (DILANTIN) 500 mg in sodium chloride 0.9 % 100 mL IVPB (loading dose) (1 source) Start: 02-24-2019 End: 02-24-2019 phenytoin (DILANTIN) 500 mg in sodium chloride 0.9 % 100 mL IVPB (loading dose) piperacillin 4000 mg / tazobactam 500 mg injection (1 source) Penicillin-class Antibacterial, beta Lactamase Inhibitor Start: 02-24-2019 End: 02-25-2019 piperacillin-tazobacta m (ZOSYN) 4.5 g in dextrose 100 mL IVPB extended infusion (premix) polyethylene glycol 3350 [id number] mg powder for oral solution (3 sources) Osmotic Laxative Start: 04-03-2023 End: 04-06-2023 Polyethylene glycol (MIRALAX) packet 17 g Start: 04-01-2023 End: 04-03-2023 Polyethylene glycol (MIRALAX ) packet 17 g Start: 04-26-2019 polyethylene g lycol (GLYCOLAX) packet 17 g predniSONE 5 mg oral tablet (20 sources) Start: 04-07-2022 End: 04-09-2022 Prednisone 5 mg tablet Disco ntinued mg April 07, 2022 1:00am April 09, 2022 12:22pm Start: 04-07-2022 End: 04-09-2022 Prednisone Discontinued MG F ebruary 2022 12:00am April 09, 2022 11:22am Start: 03-09-2022 End: 04-09-2022 Prednisone 5 mg tablet Disco ntinued 5 mg PO DIRECTED April 07, 2022 3:26am April 09, 2022 12:25pm 40 mg p.o. daily x1 week then 35 mg p.o. daily x1 week then 30 mg p.o. daily x1 week then 30 mg p.o. daily x1 week then 25 mg p.o. daily x1 week then 20 mg p.o. daily x1 week then 15 mg p.o. daily x1 week then 10 mg p.o. daily x1 week then 5 mg daily 100 ml propofol 10 mg/ml injection (1 source) General Anesthetic Start: 02-23-2019 End: 02-25-2019 propofol injection sennosides, chcf 8.6 mg oral tablet (3 sources) Start: 04-03-2023 End: 04-06-2023 Senna (SENOKOT) tablet 17.2 mg Start: 04-01-2023 End: 04-03-2023 Senna (SENOKOT) tablet 17.2 mg Start: 03-30-2023 End: 04-01-2023 Senna (SENOKOT) tablet 8.6 m g Sertraline (6 sources) Serotonin Reuptake Inhibitor Start: 04-03-2023 End: 04-06-2023 Sertraline (ZOLOFT) tablet 125 mg Start: 03-31-2023 End: 04-03-2023 Sertraline (ZOLOFT) tablet 1 25 mg Start: 04-15-2022 take 1 tablet by charis th once daily Sertraline 50 mg tablet Active 50 mg PO DAILY April 15, 2022 1:00am take 1 tablet by charis th once daily Sertraline 100 MG tablet Take 1 tablet by mouth daily. Take with 25mg tablet for total dose of 125mg 0 Active take 1 tablet by charis th once daily Sertraline 25 MG tablet Take 1 tablet by mouth daily. Take with 100mg tablet for total dose of 125mg 0 Active 1000 ml sodium chloride 9 mg /ml injection (10 sources) Start: 03-30-2023 End: 04-06-2023 Sodium chloride 0.9% IV solution 250 mL Start: 05-03-2022 End: 05-03-2022 sodium chloride 0.9 % bolus 500 mL Start: 04-21-2019 sodium chlorid e flush 0.9 % injection 10 mL Start: 04-21-2019 sodium chlorid e flush 0.9 % injection 10 mL Start: 02-23-2019 End: 02-25-2019 sodium chloride flush 0.9 % injection 10 mL Start: 11-05-2018 sodium chlorid e flush 0.9 % injection 10 mL spironolactone 25 mg oral tablet (4 sources) Aldosterone Antagonist Start: 04-03-2023 End: 04-06-2023 Spironolactone (ALDACTONE) tablet 50 mg Start: 04-15-2022 take 1 tablet by charis th once daily Spironolactone 25 mg tablet Active 25 mg PO DAILY April 15, 2022 1:00am take 1 tablet by charis th once daily spironolactone 50 MG tablet Take 1 tablet by mouth daily. 0 Active topiramate 100 mg oral tablet (20 sources) Start: 03-17-2020 End: 04-07-2022 take 1 tablet by mouth twice daily Topiramate 100 MG tablet Discontinued 100 mg PO TWICE A DAY 60 April 06, 2020 1:00am April 07, 2022 3:28am Start: 03-17-2020 End: 04-06-2020 take 1 tablet by mouth once daily Topiramate 100 MG tablet Discontinued 100 mg PO DAILY March 17, 2020 1:00am April 06, 2020 12:26pm Start: 02-25-2019 topiramate (TO PAMAX) tablet 125 mg Start: 02-24-2019 End: 02-25-2019 topiramate (TOPAMAX) tablet 125 mg Start: 11-05-2018 End: 11-07-2018 topiramate (TOPAMAX) tablet 25 mg Start: 01-19-2018 End: 04-29-2019 take 100 mg by mouth twice daily Topiramate Active 100 MG PO TWICE A DAY 60 April 06, 2020 12:18pm Comment on above: Take 100 mg by mouth twice daily. vancomycin (VANCOCIN) 1,750 mg in dextrose 5 % 500 mL IVPB (1 source) Start: 02-24-2019 End: 02-25-2019 vancomycin (VANCOCIN) 1,750 mg in dextrose 5 % 500 mL IVPB Vital AF 1.2 Jean Carlos LIQD (1 source) Start: 03-31-2023 End: 04-03-2023 Vital AF 1.2 Jean Carlos LIQD Problems Active Problems Problem Classification Problem Date Documented Da te Episodic/Chronic Acute and unspecified renal failure (20 sources) Injury of kidney; Translations: [Acute kidney failure, unspecified] 03-27-2020 Episodic Acute myocardial infarction (1 source) Non-ST elevation (NSTEMI) myocardial infarction; Translations: [NON-ST ELEVATION MYOCARDIAL INFARCT] Onset: 4 Chronic Administrative/social admission (20 sources) Encounter for issue of repeat prescription; Translations: [Repeated prescription] Onset: 8 09-04-2017 Episodic Allergic reactions (2 sources) Allergy status to analgesic agent status; Translations: [Allergy status to analgesic agent status] Onset: 8 Episodic Anxiety disorders (20 sources) Indifference; Translations: [Demoralization and apathy] 04-06-2020 Episodic Aspiration pneumonitis; food/vomitus (20 sources) Pneumonitis due to inhalation of food and vomit; Translations: [Aspiration pneumonia] Onset: 8 05-21-2017 Episodic Bacterial infection (8 sources) Other staphylococcus as the cause of diseases classified elsewhere; Translations: [Personal history of Methicillin resistant Staphylococcus aureus infection] Onset: 8 Episodic Chronic obstructive pulmonary disease and bronchiectasis (20 sources) Bronchitis; Translations: [Bronchitis, not specified as acute or chronic] 12-22-2018 Episodic Coagulation and hemorrhagic disorders (8 sources) Platelet count below reference range; Translations: [Thrombocytopenia, unspecified] Onset: 1 03-26-2020 Chronic Deficiency and other anemia (12 sources) Pancytopenia; Translations: [Other pancytopenia] 03-02-2022 Chronic Deficiency and other anemia (10 sources) Other pancytopenia; Translations: [Other pancytopenia] Chronic Deficiency and other anemia (20 sources) Iron deficiency anemia; Translations: [Iron deficiency anemia, unspecified] 04-02-2020 Episodic Deficiency and other anemia (12 sources) Anemia; Translations: [Anemia, unspecified] 03-02-2022 Episodic Deficiency and other anemia (11 sources) Anemia, unspecified; Translations: [Anemia, unspecified] Episodic Delirium, dementia, and amnestic and other cognitive disorders (20 sources) Cognitive disorder; Translations: [Unspecified mental disorder due to known physiological condition] 10-09-2020 Chronic Comment on above: acute on chronic Diabetes mellitus without complication (2 sources) Hyperglycemia, unspecified; Translations: [Hyperglycemia, unspecified] Onset: 8 Episodic Diseases of mouth; excluding dental (20 sources) Parotitis; Translations: [Acute sialoadenitis] 10-09-2020 Episodic Diseases of white blood cells (4 sources) Leukocytosis; Translations: [Elevated white blood cell count, unspecified] Onset: 8 10-10-2017 Chronic E Codes: Fall (20 sources) Fall; Translations: [Unspecified fall, initial encounter] Onset: 4 03-30-2022 Episodic Epilepsy; convulsions (20 sources) Epilepsy, unspecified, not intractable, without status epilepticus; Translations: [Epilepsy, unspecified, not intractable, with status epilepticus] Onset: 7 Resolved: 0 01-16-2018 Chronic Comment on above: since age 1 or 2. Hy poplastic left brain Essential hypertension (20 sources) Essential (primary) hypertension; Translations: [Hypertensive disorder] Onset: 8 04-30-2019 Chronic Fever of unknown origin (20 sources) Fever; Translations: [Fever, unspecified] 10-11-2017 Episodic Gastritis and duodenitis (20 sources) Gastritis; Translations: [Gastritis, unspecified, without bleeding] Episodic Gastrointestinal hemorrhage (20 sources) Acute gastrointestinal hemorrhage; Translations: [Gastrointestinal hemorrhage, unspecified] Episodic Headache, including migraine (2 sources) Migraine, unspecified, not intractable, without status migrainosus; Translations: [Migraine, unsp, not intractable, without status migrainosus] Onset: 8 Chronic Malaise and fatigue (20 sources) Asthenia; Translations: [Weakness] 02-23-2019 Episodic Comment on above: due to recent status epilepticus Miscellaneous mental health disorders (20 sources) Dissociative convulsions; 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 Mood disorders (20 sources) Depressive disorder; Translations: [Depression] Onset: 7 09-21-2016 Chronic Mood disorders (2 sources) Major depressive disorder, single episode, unspecified; Translations: [Major depressive disorder, single episode, unspecified] Onset: 8 Nausea and vomiting (20 sources) Nausea and vomiting; Translations: [Nausea with vomiting, unspecified] Episodic Other aftercare (2 sources) long term care phlebotomist (current) use of aspirin; Translations: [senior care (current) use of aspirin] Onset: 8 Episodic Other aftercare (2 sources) Other watermaster (current) 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 therapy; Translations: [[employer]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] Onset: 4 Episodic Other connective tissue disease (1 source) Pain in right lower limb; Translations: [Pain in right leg] Episodic Other connective tissue disease (1 source) Pain in right leg; Translations: [Pain in right leg] Onset: 3 Episodic Other connective tissue disease (3 sources) Other symptoms and signs involving the musculoskeletal system; Translations: [Other musculoskeletal symptoms referable to limbs] Onset: 4 04-06-2023 Episodic Other eye disorders (20 sources) Dermatochalasis of right eyelid; Translations: [Blepharochalasis right eye, unspecified eyelid] 03-18-2019 Episodic Other gastrointestinal disorders (4 sources) Constipation; Translations: [Constipation, unspecified] Resolved: 0 04-30-2019 Episodic Other gastrointestinal disorders (2 sources) Constipation, unspecified; Translations: [Constipation, unspecified] Onset: 4 Episodic Other hereditary and degenerative nervous system conditions (20 sources) Cerebral atrophy; Translations: [Degenerative disease of nervous system, unspecified] 04-02-2020 Chronic Comment on above: Left hemispheric vol ume loss Other injuries and conditions due to external causes (17 sources) Injury of head; Translations: [Unspecified injury of head, initial encounter] 09-29-2021 Episodic Other liver diseases (20 sources) Enzyme level - finding; Translations: [Elevated transaminase measurement] Episodic Other nervous system disorders (20 sources) H/O: epilepsy; Translations: [Personal history of other diseases of the nervous system and sense organs] 03-02-2022 Episodic Other nervous system disorders (11 sources) Personal history of other diseases of the nervous system and sense organs; Translations: [Personal history of other disorders of nervous system and sense organs] Episodic Other nervous system disorders (6 sources) Numbness and tingling sensation of skin; Translations: [Anesthesia of skin] 04-07-2022 Episodic Other nervous system disorders (10 sources) Paresthesia; Translations: [Paresthesia of skin] 04-07-2022 Episodic Other nervous system disorders (5 sources) Anesthesia of skin; Translations: [Disturbance of skin sensation] 04-07-2022 Episodic Other nervous system disorders (2 sources) Paresthesia of skin; Translations: [Disturbance of skin sensation] 04-07-2022 Episodic Other nutritional; endocrine; and metabolic disorders (4 sources) Morbid (severe) obesity due to excess calories; Translations: [Obesity, unspecified] Onset: 8 Chronic Other nutritional; endocrine; and metabolic disorders (11 sources) Obesity; Translations: [Obesity, unspecified] Onset: 8 11-07-2018 Chronic Other nutritional; endocrine; and metabolic disorders (20 sources) Morbid obesity; Translations: [Morbid (severe) obesity due to excess calories] Onset: 8 04-30-2019 Chronic Other nutritional; endocrine; and metabolic disorders (1 source) Body mass index 40+ - severely obese; Translations: [Morbid (severe) obesity due to excess calories] Onset: 8 04-30-2019 Chronic Other nutritional; endocrine; and metabolic disorders (3 sources) Developmental delay; Translations: [Unspecified lack of expected normal physiological development in childhood] 04-12-2022 Episodic Other nutritional; endocrine; and metabolic disorders (2 sources) Adult failure to thrive syndrome; Translations: [Adult failure to thrive] 04-14-2022 Episodic Other nutritional; endocrine; and metabolic disorders (1 source) Adult failure to thrive; Translations: [Adult failure to thrive] 04-18-2022 Episodic Other screening for suspected conditions (not mental disorders or infectious disease) (2 sources) MRI scan abnormal; Translations: [Abnormal findings on diagnostic imaging of other specified body structures] Onset: 7 07-27-2016 Chronic Other screening for suspected conditions (not mental disorders or infectious disease) (3 sources) Raised cardiac enzyme or marker; Translations: [Other specified abnormal findings of blood chemistry] Onset: 4 04-06-2023 Episodic Residual codes; unclassified (10 sources) Obstructive sleep apnea syndrome; Translations: [Obstructive sleep apnea (adult) (pediatric)] Onset: 8 04-30-2019 Chronic Residual codes; unclassified (1 source) Tobacco user; Translations: [Tobacco user] Onset: 0 04-30-2019 Chronic Residual codes; unclassified (20 sources) Noncompliance with medication regimen; Translations: [Patient's other noncompliance with medication regimen] Onset: 7 11-07-2018 Episodic Comment on above: due to not receiving meds in her pill pack Residual codes; unclassified (20 sources) Difficult venous access; Translations: [Other specified health status] 03-27-2020 Episodic Residual codes; unclassified (20 sources) Tobacco use and exposure - finding; Translations: [Tobacco use] 07-20-2017 Episodic Residual codes; unclassified (20 sources) History of clinical finding in subject; Translations: [Personal history of other specified conditions] 03-02-2022 Episodic Residual codes; unclassified (12 sources) Personal history of other specified conditions; Translations: [Personal history of other specified diseases] Episodic Respiratory failure; insufficiency; arrest (20 sources) Acute respiratory failure with hypercapnia; Translations: [Respiratory failure] Onset: 7 10-10-2017 Episodic Screening or history of mental health and substance abuse (2 sources) Personal history of nicotine dependence; Translations: [Personal history of nicotine dependence] Onset: 8 Episodic Septicemia (2 sources) Sepsis, unspecified organism; Translations: [Sepsis, unspecified organism] Onset: 8 Septicemia (except in labor) (8 sources) Sepsis; Translations: [Sepsis due to coagulase negative Staphylococcus] Onset: 8 10-10-2017 Episodic Spondylosis; intervertebral disc disorders; other back problems (20 sources) Chronic low back pain; Translations: [Chronic low back pain] Onset: 1 03-21-2020 Episodic Substance-related disorders (20 sources) Cannabis abuse; Translations: [Cannabis abuse, uncomplicated] Onset: 0 04-30-2019 Chronic Comment on above: states 1-2 times a w [place] [employer] [place]. 1-2 joints. Superficial injury; contusion (13 sources) Contusion of buttock; Translations: [Contusion of lower back and pelvis, initial encounter] Onset: 4 03-30-2022 Episodic Syncope (14 sources) Syncope; Translations: [Syncope and collapse] 11-22-2021 Episodic Unclassified (2 sources) Body mass index (BMI) 40.0-44.9, adult; Translations: [Body mass index (BMI) 40.0-44.9, adult] Onset: 8 Chronic Unclassified (4 sources) Patient's other noncompliance with medication regimen; Translations: [Physical restraint status] Onset: 8 Episodic Unclassified (1 source) CONTACT W/AND (SUSP) EXPOS COVID-19; Translations: [CONTACT W/AND (SUSP) EXPOS COVID-19] Onset: 4 Urinary tract infections (20 sources) Urinary tract infectious disease; Translations: [Urinary tract infection, site not specified] Onset: 3 09-27-2021 Episodic Past or Other Problems Problem Classification Problem Date Documented Date Episodic/Chronic Epilepsy; convulsions (20 sources) Seizure; Translations: [Seizure disorder] Onset: 07-27-2016 01-16-2018 Episodic Fluid and electrolyte disorders (20 sources) Acidosis; Translations: [Metabolic acidosis] Onset: 05-21-2017 Episodic Other circulatory disease (8 sources) Low blood pressure; Translations: [Hypotension, unspecified] Onset: 03-23-2020 03-26-2020 Episodic Other hematologic conditions (4 sources) Microcytosis; Translations: [Other abnormality of red blood cells] Onset: 07-27-2016 07-27-2016 Episodic Other injuries and conditions due to external causes (2 sources) Unspecified injury of lower back, initial encounter; Translations: [UNS INJURY LOWER BACK INITIAL] Onset: 05-09-2023 Episodic Other lower respiratory disease (4 sources) Cough; Translations: [Cough] Resolved: 06-20-2017 06-20-2017 Episodic Other lower respiratory disease (4 sources) H/O: pneumonia; Translations: [Personal history of pneumonia (recurrent)] Onset: 07-27-2016 07-27-2016 Episodic Other nervous system disorders (5 sources) Impaired cognition; Translations: [Other symptoms and signs involving cognitive functions and awareness] Onset: 10-11-2017 11-07-2018 Episodic Other upper respiratory disease (6 sources) Acute bronchospasm; Translations: [Acute bronchospasm] Onset: 05-21-2017 05-21-2017 Episodic Pneumonia (except that caused by tuberculosis or sexually transmitted disease) (4 sources) Pneumonia due to Staphylococcus aureus; Translations: [Pneumonia due to methicillin susceptible Staphylococcus aureus] Onset: 10-11-2017 10-11-2017 Episodic Residual codes; unclassified (4 sources) Altered mental status; Translations: [Altered mental status, unspecified] Onset: 07-27-2016 10-10-2017 Episodic Residual codes; unclassified (2 sources) MRI scan abnormal; Translations: [Abnormal MRI] Onset: 07-27-2016 07-27-2016 Episodic Residual codes; unclassified (1 source) Tobacco user; Translations: [Tobacco use] Onset: 04-30-2019 04-30-2019 Episodic Results Test Name Value Interpretation Reference Range Facility [facility] 07-08-2024 [facility] Letter Text Normal [facility] Anion gap in Serum or Plasma Ordered By: Audie Akers on 05-20-2024 Anion gap [Moles/Vol] 10 mmol/L 07-11 [facility] BUN/creatinine ratioOrdered By: Audie Akers on 05-20-2024 Urea nitrogen/Creatinine [Mass ratio] 10.7 mg/mg 12-16 [facility] Basic Metabolic Profile (BMP )on 05-20-2024 BUN/CRE 10.7 RATIO Normal 12-16 [facility] Comment on above: Order Comment: 122-1 Performed By: #### L 500.2500, L100.0500 #### [facility] [address] [place], [place], [id number] Calcium [Mass/Vol] 8.3 mg/dL Normal 7.6-11.[address] [facility] Comment on above: Order Comment: 122-1 Performed By: #### L 500.2500, L100.0500 #### [facility] [address] [place], [address] Chloride [Moles/Vol] 100 mmol/L Normal 98-108 [facility] Comment on above: Order Comment: 122-1 Performed By: #### L 500.2500, L100.0500 #### [facility] [address] [place], [address] CO2 [Moles/Vol] 23.8 mmol/L Normal 21.0-32.0 [facility] Comment on above: Order Comment: 122-1 Performed By: #### L 500.2500, L100.0500 #### [facility] [address] [place], [address] Creatinine [Mass/Vol] 0.73 mg/dL Normal 0.70-1.20 [facility] Comment on above: Order Comment: 122-1 Performed By: #### L 500.2500, L100.0500 #### [facility] [address] [place], [address] GAP 10 Normal 5-15 [facility] Comment on above: Order Comment: 122-1 Performed By: #### L 500.2500, L100.0500 #### [facility] [address] [place], [address] GFR/1.73 sq M.predicted among non-blacks MDRD (S/P/Bld) [Vol rate/Area] 107 mL/min/{1.73_m2} Normal >60 [facility] Comment on above: Order Comment: 122-1 Result Comment: mL/m in/1.73m2 CKD-EPI Creatinine Equation (2020) Performed By: #### L 500.2500, L100.0500 #### [facility] [address] [place], [address] Glucose [Mass/Vol] 72 mg/dL Normal 70-[address] [facility] Comment on above: Order Comment: 122-1 Performed By: #### L 500.2500, L100.0500 #### [facility] [address] [place], [address] Potassium [Moles/Vol] 4.0 mmol/L Normal 3.3-5.1 [facility] Comment on above: Order Comment: 122-1 Result Comment: Hemo lysis present, Results??could be affected. ?? Performed By: #### L 500.2500, L100.0500 #### [facility] [address] [place], [address] Sodium [Moles/Vol] 135 mmol/L Normal 133-[address] [facility] Comment on above: Order Comment: 122-1 Performed By: #### L 500.2500, L100.0500 #### [facility] [address] [place], [address] Urea nitrogen [Mass/Vol] 8 mg/dL Normal 4-19 [facility] Comment on above: Order Comment: 122-1 Performed By: #### L 500.2500, L100.0500 #### [facility] [address] [place], [address] CBC-Complete Blood Cnt No Di ffon 05-20-2024 PLT Normal 150-450 [facility] Comment on above: Order Comment: 122-1 Result Comment: Plea note: For this sample, a platelet estimate is provided rather than a platelet count due to platelet clumping. Other parameters associated with this sample are not affected by platelet clumping. If a more accurate platelet count is required, a redraw of the patient will be necessary. Performed By: #### L 500.2500, L100.0500 #### [facility] [address] [place], [address] Erythrocyte distribution width (RBC) [Ratio] 12.5 % Normal 11.6-14.6 [facility] Comment on above: Order Comment: 122-1 Performed By: #### L 500.2500, L100.0500 #### [facility] [address] [place], [address] Hematocrit (Bld) [Volume fraction] 42.2 % Normal 37-47 [facility] Comment on above: Order Comment: 122-1 Performed By: #### L 500.2500, L100.0500 #### [facility] [address] [place], [address] Hemoglobin (Bld) [Mass/Vol] 13.7 g/dL Normal 12.0-15.0 [facility] Comment on above: Order Comment: 122-1 Performed By: #### L 500.2500, L100.0500 #### [facility] [address] [place], [address] MCH (RBC) [Entitic mass] 31.6 pg Normal 27.0-32.0 [facility] Comment on above: Order Comment: 122-1 Performed By: #### L 500.2500, L100.0500 #### [facility] [address] [place], [address] MCHC (RBC) [Mass/Vol] 32.5 g/dL Normal 32-36 [facility] Comment on above: Order Comment: 122-1 Performed By: #### L 500.2500, L100.0500 #### [facility] [address] [place], [address] MCV (RBC) [Entitic vol] 97.5 fL Normal 81-99 [facility] Comment on above: Order Comment: 122-1 Performed By: #### L 500.2500, L100.0500 #### [facility] [address] [place], [address] Platelet mean volume (Bld) [Entitic vol] 12.7 fL High 6.2-12.0 [facility] Comment on above: Order Comment: 122-1 Performed By: #### L 500.2500, L100.0500 #### [facility] [address] [place], [address] RBC (Bld) [#/Vol] 4.33 10*6/uL Normal 4.2-5.4 [facility] Comment on above: Order Comment: 122-1 Performed By: #### L 500.2500, L100.0500 #### [facility] [address] [place], [address] RDW SD 44.8 fl High 35.1-43.9 [facility] Comment on above: Order Comment: 122-1 Performed By: #### L 500.2500, L100.0500 #### [facility] [address] [place], [address] WBC (Bld) [#/Vol] 4.2 10*3/uL Low 4.4-11.[address] [facility] Comment on above: Order Comment: 122-1 Performed By: #### L 500.2500, L100.0500 #### [facility] [address] [place], [address] Carbon dioxide, total [Moles /volume] in Central venous bloodOrdered By: Audie Akers on 05-20-2024 CO2 [Moles/Vol] 23.8 mmol/L 21.0-32.0 [facility] Chloride assayOrdered By: Radha Akers on 05-20-2024 Chloride [Moles/Vol] 100 mmol/L 98-108 [facility] Erythrocyte distribution wid th (RBC) [Ratio]Ordered By: Audie Akers on 05-20-2024 Erythrocyte distribution width (RBC) [Entitic vol] 44.8 fL High 35.1-43.9 [facility] Erythrocyte distribution wid th ratioOrdered By: Audie Akers on 05-20-2024 Erythrocyte distribution width (RBC) [Ratio] 12.5 % 11.6-14.6 [facility] GFR/1.73 sq M.predicted brandyn g non-blacks MDRD (S/P/Bld) [Vol rate/Area]Ordered By: Audie Akers on 05-20-2024 Estimated GFR (MDRD) Non-Af Amer 107 >60 [facility] Comment on above: mL/min/1.73m2 CKD-EP I Creatinine Equation (2020) Hematocrit Auto (Bld) [Volum e fraction]Ordered By: Audie Akers on 05-20-2024 Hematocrit (Bld) [Volume fraction] 42.2 % 37-47 [facility] Hemoglobin measurementOrdere d By: Audie Akers on 05-20-2024 Hemoglobin (Bld) [Mass/Vol] 13.7 g/dL 12.0-15.0 [facility] MCV (mean corpuscular volume ) determinationOrdered By: Audie Akers on 05-20-2024 MCV (RBC) [Entitic vol] 97.5 fL 81-99 [facility] Mean corpuscular hemoglobin (MCH) determinationOrdered By: Audie Akers on 05-20-2024 MCH (RBC) [Entitic mass] 31.6 pg 27.0-32.0 [facility] Mean corpuscular hemoglobin concentration (MCHC) determinationOrdered By: Audie Akers on 05-20-2024 MCHC (RBC) [Mass/Vol] 32.5 g/dL 32-36 [facility] Mean platelet volume determi nationOrdered By: Audie Akers on 05-20-2024 Platelet mean volume (Bld) [Entitic vol] 12.7 fL High 6.2-12.0 [facility] Platelet countOrdered By: Radha Akers on 05-20-2024 Platelet Count See comment 150-450 [facility] Comment on above: Please note: For thi s sample, a platelet estimate is provided rather than a platelet count due to platelet clumping. Other parameters associated with this sample are not affected by platelet clumping. If a more accurate platelet count is required, a redraw of the patient will be necessary. Potassium (Unsp spec) [Mass/ Vol]Ordered By: Audie Akers on 05-20-2024 Potassium [Moles/Vol] 4.0 mmol/L 3.3-5.1 [facility] Comment on above: Hemolysis present, R esults could be affected. RBC Auto (Bld) [#/Vol]Ordere d By: Audie Akers on 05-20-2024 RBC (Bld) [#/Vol] 4.33 10*6/uL 4.2-5.4 [facility] Serum creatinine measurement (mass/volume)Ordered By: Audie Akers on 05-20-2024 Creatinine [Mass/Vol] 0.73 mg/dL 0.70-1.20 [facility] Serum glucose measurement (m ass/volume)Ordered By: Audie Akers on 05-20-2024 Glucose [Mass/Vol] 72 mg/dL 70-[address] [facility] Serum or plasma calcium charles urement (mass/volume)Ordered By: Audie Akers on 05-20-2024 Calcium [Mass/Vol] 8.3 mg/dL 7.6-11.[address] [facility] Serum or plasma urea nitroge n measurement (mass/volume)Ordered By: Audie Akers on 05-20-2024 Urea nitrogen [Mass/Vol] 8 mg/dL - [facility] Sodium levelOrdered By: Audie Akers on 05-20-2024 Sodium [Moles/Vol] 135 mmol/L 133-[address] [facility] White blood cell (WBC) count Ordered By: Audie Akers on 05-20-2024 WBC (Bld) [#/Vol] 4.2 10*3/uL Low 4.4-11.[address] [facility] Basic Metabolic Profile (BMP )on 05-17-2024 BUN Normal - [facility] Comment on above: Order Comment: 122.1 Result Comment: UTO X2 Performed By: #### L 501.8100, L500.2500, L3700.3000, L100.0500, L3310.0000 #### [facility] [address] [place], [address] BUN/CRE Normal - [facility] Comment on above: Order Comment: 122.1 Result Comment: UTO X2 Performed By: #### L 501.8100, L500.2500, L3700.3000, L100.0500, L3310.0000 #### [facility] [address] [place], [address] Calcium Normal 7.6-11.0 [facility] Comment on above: Order Comment: 122.1 Result Comment: UTO X2 Performed By: #### L 501.8100, L500.2500, L3700.3000, L100.0500, L3310.0000 #### [facility] [address] [place], [address] CL Normal 98-108 [facility] Comment on above: Order Comment: 122.1 Result Comment: UTO X2 Performed By: #### L 501.8100, L500.2500, L3700.3000, L100.0500, L3310.0000 #### [facility] [address] [place], [address] CO2 Normal 21.0-32.0 [facility] Comment on above: Order Comment: 122.1 Result Comment: UTO X2 Performed By: #### L 501.8100, L500.2500, L3700.3000, L100.0500, L3310.0000 #### [facility] [address] [place], [address] CREAT,SERUM Normal 0.70-1.20 [facility] Comment on above: Order Comment: 122.1 Result Comment: UTO X2 Performed By: #### L 501.8100, L500.2500, L3700.3000, L100.0500, L3310.0000 #### [facility] [address] [place], [address] eGFR Normal >60 [facility] Comment on above: Order Comment: 122.1 Result Comment: UTO X2 Performed By: #### L 501.8100, L500.2500, L3700.3000, L100.0500, L3310.0000 #### [facility] [address] [place], [address] GAP Normal 5-15 [facility] Comment on above: Order Comment: 122.1 Result Comment: UTO X2 Performed By: #### L 501.8100, L500.2500, L3700.3000, L100.0500, L3310.0000 #### [facility] [address] [place], [address] GLU Normal 70-99 [facility] Comment on above: Order Comment: 122.1 Result Comment: UTO X2 Performed By: #### L 501.8100, L500.2500, L3700.3000, L100.0500, L3310.0000 #### [facility] [address] [place], [address] Potassium Normal 3.3-5.1 [facility] Comment on above: Order Comment: 122.1 Result Comment: UTO X2 Performed By: #### L 501.8100, L500.2500, L3700.3000, L100.0500, L3310.0000 #### [facility] [address] [place], [address] Basic Metabolic Profile (BMP) Normal 133-145 [facility] Comment on above: Order Comment: 122.1 Result Comment: UTO X2 Performed By: #### L 501.8100, L500.2500, L3700.3000, L100.0500, L3310.0000 #### [facility] [address] [place], [address] CBC-Complete Blood Cnt No Di ffon 05-17-2024 HCT Normal 37-47 [facility] Comment on above: Result Comment: UTO X2 Performed By: #### L 501.8100, L500.2500, L3700.3000, L100.0500, L3310.0000 #### [facility] [address] [place], [address] HGB Normal 12.0-15.0 [facility] Comment on above: Result Comment: UTO X2 Performed By: #### L 501.8100, L500.2500, L3700.3000, L100.0500, L3310.0000 #### [facility] [address] [place], [address] MCH Normal 27.0-32.0 [facility] Comment on above: Result Comment: UTO X2 Performed By: #### L 501.8100, L500.2500, L3700.3000, L100.0500, L3310.0000 #### [facility] [address] [place], [address] MCHC Normal 32-36 [facility] Comment on above: Result Comment: UTO X2 Performed By: #### L 501.8100, L500.2500, L3700.3000, L100.0500, L3310.0000 #### [facility] [address] [place], [address] MCV Normal 81-99 [facility] Comment on above: Result Comment: UTO X2 Performed By: #### L 501.8100, L500.2500, L3700.3000, L100.0500, L3310.0000 #### [facility] [address] [place], [address] PLT Normal 150-450 [facility] Comment on above: Result Comment: UTO X2 Performed By: #### L 501.8100, L500.2500, L3700.3000, L100.0500, L3310.0000 #### [facility] [address] [place], [address] RBC Normal 4.2-5.4 [facility] Comment on above: Result Comment: UTO X2 Performed By: #### L 501.8100, L500.2500, L3700.3000, L100.0500, L3310.0000 #### [facility] [address] [place], [address] RDW CV Normal 11.6-14.6 [facility] Comment on above: Result Comment: UTO X2 Performed By: #### L 501.8100, L500.2500, L3700.3000, L100.0500, L3310.0000 #### [facility] [address] [place], [address] RDW SD Normal 35.1-43.9 [facility] Comment on above: Result Comment: UTO X2 Performed By: #### L 501.8100, L500.2500, L3700.3000, L100.0500, L3310.0000 #### [facility] [address] [place], [address] WBC Normal 4.4-11.0 [facility] Comment on above: Result Comment: UTO X2 Performed By: #### L 501.8100, L500.2500, L3700.3000, L100.0500, L3310.0000 #### [facility] [address] [place], [address] KEPPRA (LEVETIRACETAM)on KEPPRA 16.5 ug/mL Normal 10.0-40.0 [facility] Comment on above: Order Comment: 122.1 Result Comment: Perf ormed at: [facility] [address] [id number] Material Manager: Cong Morrow PhD, Phone: [phone] Performed at: [facility] [address] [id number] Material Manager: Aury Garcia MD, Phone: [phone] Performed By: #### L 501.8100, L500.2500, L3700.3000, L100.0500, L3310.0000 #### [facility] [address] [place], [address] L3700.3000on 02-19-2024 PHENobarbital [Mass/Vol] 23 ug/mL Normal 15-40 [facility] Comment on above: Order Comment: 122.1 Result Comment: Dete ction Limit = 3 Performed By: #### L 501.8100, L500.2500, L3700.3000, L100.0500, L3310.0000 #### [facility] [address] [place], [address] Basic Metabolic Profile (BMP )on 02-16-2024 BUN/CRE 11.2 RATIO Normal - [facility] Comment on above: Order Comment: 122.1 Performed By: #### L 501.8100, L500.2500, L3700.3000, L100.0500, L3310.0000 #### [facility] [address] [place], [address] CA,Total 8.3 mg/dL Low 8.5-10.1 [facility] Comment on above: Order Comment: 122.1 Performed By: #### L 501.8100, L500.2500, L3700.3000, L100.0500, L3310.0000 #### [facility] [address] [place], [address] Chloride [Moles/Vol] 106 mmol/L Normal 98-107 [facility] Comment on above: Order Comment: 122.1 Performed By: #### L 501.8100, L500.2500, L3700.3000, L100.0500, L3310.0000 #### [facility] [address] [place], [address] CO2 [Moles/Vol] 27.0 mmol/L Normal 21.0-32.0 [facility] Comment on above: Order Comment: 122.1 Performed By: #### L 501.8100, L500.2500, L3700.3000, L100.0500, L3310.0000 #### [facility] [address] [place], [address] Creatinine [Mass/Vol] 0.62 mg/dL Normal 0.55-1.02 [facility] Comment on above: Order Comment: 122.1 Result Comment: The validity of the calculated GFR GFRAA in patients over 70 years has not been determined. Clinical correlation is essential. Performed By: #### L 501.8100, L500.2500, L3700.3000, L100.0500, L3310.0000 #### [facility] [address] [place], [address] EST GFR - AA 136 mL/min Normal >60 [facility] Comment on above: Order Comment: 122.1 Result Comment: Afri can Peruvian GFR Calc Performed By: #### L 501.8100, L500.2500, L3700.3000, L100.0500, L3310.0000 #### [facility] [address] [place], [address] GAP 3 Low 5-15 [facility] Comment on above: Order Comment: 122.1 Performed By: #### L 501.8100, L500.2500, L3700.3000, L100.0500, L3310.0000 #### [facility] [address] [place], [address] GFR/1.73 sq M.predicted among non-blacks MDRD (S/P/Bld) [Vol rate/Area] 113 mL/min/{1.73_m2} Normal >60 [facility] Comment on above: Order Comment: 122.1 Result Comment: Non- GFR Calc Performed By: #### L 501.8100, L500.2500, L3700.3000, L100.0500, L3310.0000 #### [facility] [address] [place], [address] Glucose [Mass/Vol] 82 mg/dL Normal 74-[address] [facility] Comment on above: Order Comment: 122.1 Performed By: #### L 501.8100, L500.2500, L3700.3000, L100.0500, L3310.0000 #### [facility] [address] [place], [address] Potassium [Moles/Vol] 3.9 mmol/L Normal 3.5-5.1 [facility] Comment on above: Order Comment: 122.1 Performed By: #### L 501.8100, L500.2500, L3700.3000, L100.0500, L3310.0000 #### [facility] [address] [place], [address] Sodium [Moles/Vol] 136 mmol/L Normal 136-[address] [facility] Comment on above: Order Comment: 122.1 Performed By: #### L 501.8100, L500.2500, L3700.3000, L100.0500, L3310.0000 #### [facility] [address] [place], [address] Urea nitrogen [Mass/Vol] 7 mg/dL Normal 7-18 [facility] Comment on above: Order Comment: 122.1 Performed By: #### L 501.8100, L500.2500, L3700.3000, L100.0500, L3310.0000 #### [facility] [address] [place], [address] Blood urea nitrogen (BUN)/cr eatinine ratioOrdered By: Audie Akers on 02-16-2024 Urea nitrogen/Creatinine [Mass ratio] 11.2 mg/mg 12-16 [facility] CBC-Complete Blood Cnt No Di ffon 02-16-2024 Erythrocyte distribution width (RBC) [Ratio] 12.5 % Normal 11.6-14.6 [facility] Comment on above: Order Comment: 122.1 Performed By: #### L 501.8100, L500.2500, L3700.3000, L100.0500, L3310.0000 #### [facility] [address] [place], [address] Hematocrit (Bld) [Volume fraction] 39.8 % Normal 37-47 [facility] Comment on above: Order Comment: 122.1 Performed By: #### L 501.8100, L500.2500, L3700.3000, L100.0500, L3310.0000 #### [facility] [address] [place], [address] Hemoglobin (Bld) [Mass/Vol] 13.1 g/dL Normal 12.0-15.0 [facility] Comment on above: Order Comment: 122.1 Performed By: #### L 501.8100, L500.2500, L3700.3000, L100.0500, L3310.0000 #### [facility] [address] [place], [address] MCH (RBC) [Entitic mass] 31.0 pg Normal 27.0-32.0 [facility] Comment on above: Order Comment: 122.1 Performed By: #### L 501.8100, L500.2500, L3700.3000, L100.0500, L3310.0000 #### [facility] [address] [place], [address] MCHC (RBC) [Mass/Vol] 32.9 g/dL Normal 32-36 [facility] Comment on above: Order Comment: 122.1 Performed By: #### L 501.8100, L500.2500, L3700.3000, L100.0500, L3310.0000 #### [facility] [address] [place], [address] MCV (RBC) [Entitic vol] 94.1 fL Normal 81-99 [facility] Comment on above: Order Comment: 122.1 Performed By: #### L 501.8100, L500.2500, L3700.3000, L100.0500, L3310.0000 #### [facility] [address] [place], [address] Platelet mean volume (Bld) [Entitic vol] 12.0 fL Normal 6.2-12.0 [facility] Comment on above: Order Comment: 122.1 Performed By: #### L 501.8100, L500.2500, L3700.3000, L100.0500, L3310.0000 #### [facility] [address] [place], [address] Platelets (Bld) [#/Vol] 137 10*3/uL Low 150-450 [facility] Comment on above: Order Comment: 122.1 Performed By: #### L 501.8100, L500.2500, L3700.3000, L100.0500, L3310.0000 #### [facility] [address] [place], [address] RBC (Bld) [#/Vol] 4.23 10*6/uL Normal 4.2-5.4 [facility] Comment on above: Order Comment: 122.1 Performed By: #### L 501.8100, L500.2500, L3700.3000, L100.0500, L3310.0000 #### [facility] [address] [place], [address] RDW SD 43.4 fl Normal 35.1-43.9 [facility] Comment on above: Order Comment: 122.1 Performed By: #### L 501.8100, L500.2500, L3700.3000, L100.0500, L3310.0000 #### [facility] [address] [place], [address] WBC (Bld) [#/Vol] 4.4 10*3/uL Normal 4.4-11.[address] [facility] Comment on above: Order Comment: 122.1 Performed By: #### L 501.8100, L500.2500, L3700.3000, L100.0500, L3310.0000 #### [facility] [address] [place], [address] Carbon dioxide measurementOr dered By: Audie Akers on 02-16-2024 CO2 [Moles/Vol] 27.0 mmol/L 21.0-32.0 [facility] Chloride measurementOrdered By: Audie Akers on 02-16-2024 Chloride [Moles/Vol] 106 mmol/L 98-107 [facility] Erythrocyte distribution wid th (RBC) [Ratio]Ordered By: Audie Akers on 02-16-2024 Erythrocyte distribution width (RBC) [Entitic vol] 43.4 fL 35.1-43.9 [facility] Erythrocyte distribution wid th ratioOrdered By: Audie Akers on 02-16-2024 Erythrocyte distribution width (RBC) [Ratio] 12.5 % 11.6-14.6 [facility] Estimated glomerular filtrat ion rate (GFR) AmericanOrdered By: Audie Akers on 02-16-2024 Estimated GFR (MDRD) Amer 136 mL/min >60 [facility] Comment on above: GFR Calc Glomerular filtration rate ( GFR) estimationOrdered By: Audie Akers on 02-16-2024 Estimated GFR (MDRD) Non-Af Amer 113 mL/min >60 [facility] Comment on above: Non- GFR Calc Glucose measurementOrdered B y: Audie Akers on 02-16-2024 Glucose [Mass/Vol] 82 mg/dL 74-[address] [facility] Hematocrit Auto (Bld) [Volum e fraction]Ordered By: Audie Akers on 02-16-2024 Hematocrit (Bld) [Volume fraction] 39.8 % 37-47 [facility] Hemoglobin measurementOrdere d By: Audie Akers on 02-16-2024 Hemoglobin (Bld) [Mass/Vol] 13.1 g/dL 12.0-15.0 [facility] LevetiracetamOrdered By: Jesus Akers on 02-16-2024 Levetiracetam (Keppra) Level 16.5 ug/mL 10.0-40.0 [facility] Comment on above: Performed at: - [address] [id number] Director: Cong Morrow PhD, Phone: [phone] at: [facility] [address] [id number] Director: Aury Garcia MD, Phone: [phone] MCV (mean corpuscular volume ) determinationOrdered By: Audie Akers on 02-16-2024 MCV (RBC) [Entitic vol] 94.1 fL 81-99 [facility] Mean corpuscular hemoglobin (MCH) determinationOrdered By: Audie Akers on 02-16-2024 MCH (RBC) [Entitic mass] 31.0 pg 27.0-32.0 [facility] Mean corpuscular hemoglobin concentration (MCHC) determinationOrdered By: Audie Akers on 02-16-2024 MCHC (RBC) [Mass/Vol] 32.9 g/dL 32-36 [facility] Mean platelet volume determi nationOrdered By: Audie Akers on 02-16-2024 Platelet mean volume (Bld) [Entitic vol] 12.0 fL 6.2-12.0 [facility] Platelet countOrdered By: Radha Akers on 02-16-2024 Platelets (Bld) [#/Vol] 137 10*3/uL Low 150-450 [facility] Potassium measurementOrdered By: Audie Akers on 02-16-2024 Potassium [Moles/Vol] 3.9 mmol/L 3.5-5.1 [facility] Quantitative phenobarbital m easurementOrdered By: Audie Akers on 02-16-2024 Phenobarbital Level 23 ug/mL 15-40 [facility] Comment on above: Detection Limit = 3 RBC Auto (Bld) [#/Vol]Ordere d By: Audie Akers on 02-16-2024 RBC (Bld) [#/Vol] 4.23 10*6/uL 4.2-5.4 [facility] Serum anion gap measurementO rdered By: Audie Akers on 02-16-2024 Anion gap [Moles/Vol] 3 mmol/L Low 5-15 [facility] Serum or plasma calcium charles urement (mass/volume)Ordered By: Audie Akers on 02-16-2024 Calcium [Mass/Vol] 8.3 mg/dL Low 8.5-10.[address] [facility] Serum or plasma creatinine m easurement (mass/volume)Ordered By: Audie Akers on 02-16-2024 Creatinine [Mass/Vol] 0.62 mg/dL 0.55-1.02 [facility] Comment on above: The validity of the calculated GFR & GFRAA in patients over 70 years has not been determined. Clinical correlation is essential. Serum or plasma urea nitroge n measurement (mass/volume)Ordered By: Audie Akers on 02-16-2024 Urea nitrogen [Mass/Vol] 7 mg/dL 7-18 [facility] Sodium levelOrdered By: Audie Akers on 02-16-2024 Sodium [Moles/Vol] 136 mmol/L 136-[address] [facility] Valproate levelOrdered By: Philip Akesr on 02-16-2024 Valproic Acid (Depakene) Level 69 ug/mL 50-100 [facility] Valproic Acid (Depakene) Lev yuniel 02-16-2024 VALPROIC ACID 69 ug/mL Normal 50-100 [facility] Comment on above: Order Comment: 122.1 Performed By: #### L 501.8100, L500.2500, L3700.3000, L100.0500, L3310.0000 #### [facility] [address] [place], [address] White blood cell (WBC) count Ordered By: Audie Akers on 02-16-2024 WBC (Bld) [#/Vol] 4.4 10*3/uL 4.4-11.[address] [facility] L3700.3000on 12-07-2023 PHENobarbital [Mass/Vol] 19 ug/mL Normal 15-40 [facility] Comment on above: Order Comment: 122.1 Result Comment: Dete ction Limit = 3 Performed at: [facility] [address] [id number] Material Manager: Cong Morrow PhD, Phone: [phone] Performed By: #### L 501.8100, L500.2500, L3700.3000, L100.0500, L3310.0000 #### [facility] [address] [place], [address] Valproic Acid (Depakene) Lev yuniel 12-06-2023 VALPROIC ACID 39 ug/mL Low 50-100 [facility] Comment on above: Order Comment: 122.1 Performed By: #### L 501.8100, L500.2500, L3700.3000, L100.0500, L3310.0000 #### [facility] [address] [place], [address] Basic Metabolic Profile (BMP )on 11-17-2023 BUN/CRE 12.8 RATIO Normal -20 [facility] Comment on above: Order Comment: 122.1 Performed By: #### L 501.8100, L500.2500, L3700.3000, L100.0500, L3310.0000 #### [facility] [address] [place], [address] CA,Total 8.5 mg/dL Normal 8.5-10.1 [facility] Comment on above: Order Comment: 122.1 Performed By: #### L 501.8100, L500.2500, L3700.3000, L100.0500, L3310.0000 #### [facility] [address] [place], [address] Chloride [Moles/Vol] 108 mmol/L High 98-107 [facility] Comment on above: Order Comment: 122.1 Performed By: #### L 501.8100, L500.2500, L3700.3000, L100.0500, L3310.0000 #### [facility] [address] [place], [address] CO2 [Moles/Vol] 24.0 mmol/L Normal 21.0-32.0 [facility] Comment on above: Order Comment: 122.1 Performed By: #### L 501.8100, L500.2500, L3700.3000, L100.0500, L3310.0000 #### [facility] [address] [place], [address] Creatinine [Mass/Vol] 0.70 mg/dL Normal 0.55-1.02 [facility] Comment on above: Order Comment: 122.1 Result Comment: The validity of the calculated GFR GFRAA in patients over 70 years has not been determined. Clinical correlation is essential. Performed By: #### L 501.8100, L500.2500, L3700.3000, L100.0500, L3310.0000 #### [facility] [address] [place], [address] EST GFR - AA 119 mL/min Normal >60 [facility] Comment on above: Order Comment: 122.1 Result Comment: Afri can Peruvian GFR Calc Performed By: #### L 501.8100, L500.2500, L3700.3000, L100.0500, L3310.0000 #### [facility] [address] [place], [address] GAP 7 Normal 5-15 [facility] Comment on above: Order Comment: 122.1 Performed By: #### L 501.8100, L500.2500, L3700.3000, L100.0500, L3310.0000 #### [facility] [address] [place], [address] GFR/1.73 sq M.predicted among non-blacks MDRD (S/P/Bld) [Vol rate/Area] 98 mL/min/{1.73_m2} Normal >60 [facility] Comment on above: Order Comment: 122.1 Result Comment: Non- GFR Calc Performed By: #### L 501.8100, L500.2500, L3700.3000, L100.0500, L3310.0000 #### [facility] [address] [place], [address] Glucose [Mass/Vol] 78 mg/dL Normal 74-[address] [facility] Comment on above: Order Comment: 122.1 Performed By: #### L 501.8100, L500.2500, L3700.3000, L100.0500, L3310.0000 #### [facility] [address] [place], [address] Potassium [Moles/Vol] 3.9 mmol/L Normal 3.5-5.1 [facility] Comment on above: Order Comment: 122.1 Performed By: #### L 501.8100, L500.2500, L3700.3000, L100.0500, L3310.0000 #### [facility] [address] [place], [address] Sodium [Moles/Vol] 139 mmol/L Normal 136-[address] [facility] Comment on above: Order Comment: 122.1 Performed By: #### L 501.8100, L500.2500, L3700.3000, L100.0500, L3310.0000 #### [facility] [address] [place], [address] Urea nitrogen [Mass/Vol] 9 mg/dL Normal 7-18 [facility] Comment on above: Order Comment: 122.1 Performed By: #### L 501.8100, L500.2500, L3700.3000, L100.0500, L3310.0000 #### [facility] [address] [place], [address] CBC-Complete Blood Cnt No Di ffon 11-17-2023 Erythrocyte distribution width (RBC) [Ratio] 12.8 % Normal 11.6-14.6 [facility] Comment on above: Order Comment: 122.1 Performed By: #### L 501.8100, L500.2500, L3700.3000, L100.0500, L3310.0000 #### [facility] [address] [place], [address] Hematocrit (Bld) [Volume fraction] 43.6 % Normal 37-47 [facility] Comment on above: Order Comment: 122.1 Performed By: #### L 501.8100, L500.2500, L3700.3000, L100.0500, L3310.0000 #### [facility] [address] [place], [address] Hemoglobin (Bld) [Mass/Vol] 14.0 g/dL Normal 12.0-15.0 [facility] Comment on above: Order Comment: 122.1 Performed By: #### L 501.8100, L500.2500, L3700.3000, L100.0500, L3310.0000 #### [facility] [address] [place], [address] MCH (RBC) [Entitic mass] 31.7 pg Normal 27.0-32.0 [facility] Comment on above: Order Comment: 122.1 Performed By: #### L 501.8100, L500.2500, L3700.3000, L100.0500, L3310.0000 #### [facility] [address] [place], [address] MCHC (RBC) [Mass/Vol] 32.1 g/dL Normal 32-36 [facility] Comment on above: Order Comment: 122.1 Performed By: #### L 501.8100, L500.2500, L3700.3000, L100.0500, L3310.0000 #### [facility] [address] [place], [address] MCV (RBC) [Entitic vol] 98.6 fL Normal 81-99 [facility] Comment on above: Order Comment: 122.1 Performed By: #### L 501.8100, L500.2500, L3700.3000, L100.0500, L3310.0000 #### [facility] [address] [place], [address] Platelet mean volume (Bld) [Entitic vol] 12.3 fL High 6.2-12.0 [facility] Comment on above: Order Comment: 122.1 Performed By: #### L 501.8100, L500.2500, L3700.3000, L100.0500, L3310.0000 #### [facility] [address] [place], [address] Platelets (Bld) [#/Vol] 134 10*3/uL Low 150-450 [facility] Comment on above: Order Comment: 122.1 Performed By: #### L 501.8100, L500.2500, L3700.3000, L100.0500, L3310.0000 #### [facility] [address] [place], [address] RBC (Bld) [#/Vol] 4.42 10*6/uL Normal 4.2-5.4 [facility] Comment on above: Order Comment: 122.1 Performed By: #### L 501.8100, L500.2500, L3700.3000, L100.0500, L3310.0000 #### [facility] [address] [place], [address] RDW SD 46.5 fl High 35.1-43.9 [facility] Comment on above: Order Comment: 122.1 Performed By: #### L 501.8100, L500.2500, L3700.3000, L100.0500, L3310.0000 #### [facility] [address] [place], [address] WBC (Bld) [#/Vol] 5.3 10*3/uL Normal 4.4-11.[address] [facility] Comment on above: Order Comment: 122.1 Performed By: #### L 501.8100, L500.2500, L3700.3000, L100.0500, L3310.0000 #### [facility] [address] [place], [address] Basic Metabolic Profile (BMP )on 11-16-2023 BUN Normal -18 [facility] Comment on above: Order Comment: 122.1 Result Comment: UTO- TRY 11/17/23 Performed By: #### L 501.8100, L500.2500, L3700.3000, L100.0500, L3310.0000 #### [facility] [address] [place], [address] BUN/CRE Normal 10-20 [facility] Comment on above: Order Comment: 122.1 Result Comment: UTO- TRY 11/17/23 Performed By: #### L 501.8100, L500.2500, L3700.3000, L100.0500, L3310.0000 #### [facility] [address] [place], [address] CA,Total Normal 8.5-10.1 [facility] Comment on above: Order Comment: 122.1 Result Comment: UTO- TRY 11/17/23 Performed By: #### L 501.8100, L500.2500, L3700.3000, L100.0500, L3310.0000 #### [facility] [address] [place], [address] CL Normal 98-107 [facility] Comment on above: Order Comment: 122.1 Result Comment: UTO- TRY 11/17/23 Performed By: #### L 501.8100, L500.2500, L3700.3000, L100.0500, L3310.0000 #### [facility] [address] [place], [address] CO2 Normal 21.0-32.0 [facility] Comment on above: Order Comment: 122.1 Result Comment: UTO- TRY 11/17/23 Performed By: #### L 501.8100, L500.2500, L3700.3000, L100.0500, L3310.0000 #### [facility] [address] [place], [address] CREAT,SERUM Normal 0.55-1.02 [facility] Comment on above: Order Comment: 122.1 Result Comment: UTO- TRY 11/17/23 Performed By: #### L 501.8100, L500.2500, L3700.3000, L100.0500, L3310.0000 #### [facility] [address] [place], [address] EST GFR Normal >60 [facility] Comment on above: Order Comment: 122.1 Result Comment: UTO- TRY 11/17/23 Performed By: #### L 501.8100, L500.2500, L3700.3000, L100.0500, L3310.0000 #### [facility] [address] [place], [address] EST GFR - AA Normal >60 [facility] Comment on above: Order Comment: 122.1 Result Comment: UTO- TRY 11/17/23 Performed By: #### L 501.8100, L500.2500, L3700.3000, L100.0500, L3310.0000 #### [facility] [address] [place], [address] GAP Normal 5-15 [facility] Comment on above: Order Comment: 122.1 Result Comment: UTO- TRY 11/17/23 Performed By: #### L 501.8100, L500.2500, L3700.3000, L100.0500, L3310.0000 #### [facility] [address] [place], [address] GLU Normal 74-106 [facility] Comment on above: Order Comment: 122.1 Result Comment: UTO- TRY 11/17/23 Performed By: #### L 501.8100, L500.2500, L3700.3000, L100.0500, L3310.0000 #### [facility] [address] [place], [address] Potassium Normal 3.5-5.1 [facility] Comment on above: Order Comment: 122.1 Result Comment: UTO- TRY 11/17/23 Performed By: #### L 501.8100, L500.2500, L3700.3000, L100.0500, L3310.0000 #### [facility] [address] [place], [address] Basic Metabolic Profile (BMP) Normal 136-145 [facility] Comment on above: Order Comment: 122.1 Result Comment: UTO- TRY 11/17/23 Performed By: #### L 501.8100, L500.2500, L3700.3000, L100.0500, L3310.0000 #### [facility] [address] [place], [address] CBC-Complete Blood Cnt No Di ffon 11-16-2023 HCT Normal 37-47 [facility] Comment on above: Order Comment: 122.1 Result Comment: UTO- TRY 11/17/23 Performed By: #### L 501.8100, L500.2500, L3700.3000, L100.0500, L3310.0000 #### [facility] [address] [place], [address] HGB Normal 12.0-15.0 [facility] Comment on above: Order Comment: 122.1 Result Comment: UTO- TRY 11/17/23 Performed By: #### L 501.8100, L500.2500, L3700.3000, L100.0500, L3310.0000 #### [facility] [address] [place], [address] MCH Normal 27.0-32.0 [facility] Comment on above: Order Comment: 122.1 Result Comment: UTO- TRY 11/17/23 Performed By: #### L 501.8100, L500.2500, L3700.3000, L100.0500, L3310.0000 #### [facility] [address] [place], [address] MCHC Normal 32-36 [facility] Comment on above: Order Comment: 122.1 Result Comment: UTO- TRY 11/17/23 Performed By: #### L 501.8100, L500.2500, L3700.3000, L100.0500, L3310.0000 #### [facility] [address] [place], [address] MCV Normal 81-99 [facility] Comment on above: Order Comment: 122.1 Result Comment: UTO- TRY 11/17/23 Performed By: #### L 501.8100, L500.2500, L3700.3000, L100.0500, L3310.0000 #### [facility] [address] [place], [address] PLT Normal 150-450 [facility] Comment on above: Order Comment: 122.1 Result Comment: UTO- TRY 11/17/23 Performed By: #### L 501.8100, L500.2500, L3700.3000, L100.0500, L3310.0000 #### [facility] [address] [place], [address] RBC Normal 4.2-5.4 [facility] Comment on above: Order Comment: 122.1 Result Comment: UTO- TRY 11/17/23 Performed By: #### L 501.8100, L500.2500, L3700.3000, L100.0500, L3310.0000 #### [facility] [address] [place], [address] RDW CV Normal 11.6-14.6 [facility] Comment on above: Order Comment: 122.1 Result Comment: UTO- TRY 11/17/23 Performed By: #### L 501.8100, L500.2500, L3700.3000, L100.0500, L3310.0000 #### [facility] [address] [place], [address] RDW SD Normal 35.1-43.9 [facility] Comment on above: Order Comment: 122.1 Result Comment: UTO- TRY 11/17/23 Performed By: #### L 501.8100, L500.2500, L3700.3000, L100.0500, L3310.0000 #### [facility] [address] [place], [address] WBC Normal 4.4-11.0 [facility] Comment on above: Order Comment: 122.1 Result Comment: UTO- TRY 11/17/23 Performed By: #### L 501.8100, L500.2500, L3700.3000, L100.0500, L3310.0000 #### [facility] [address] [place], [place], [address] Miscellaneous Lab Procedureo n 08-28-2023 [facility] TEST Normal [facility] Comment on above: Order Comment: 122.1 Result Comment: TEST RESULTS LIMITS Phenobarbital, Serum 19 ug/mL 15 - 40 Detection Limit = 3 TESTING PERFORMED AT [facility]. ORIGINAL REPORT ON FILE IN LAB CONTAINS ADDITIONAL TEST SITE INFORMATION. Performed By: #### L 501.8100, L500.2500, L3700.3000, L100.0500, L3310.0000 #### [facility] [address] [place], [address] KEPPRA (LEVETIRACETAM)on KEPPRA 15.1 ug/mL Normal 10.0-40.0 [facility] Comment on above: Result Comment: Perf ormed at: [address] [id number] Material Manager: Aury Garcia MD, Phone: [phone] Performed By: #### L 500.2500, L801.1541, L100.0500, L3310.0000 #### [facility] [address] [place], [address] Basic Metabolic Profile (BMP )on 08-17-2023 BUN/CRE 18.7 RATIO Normal 10-20 [facility] Comment on above: Performed By: #### L 500.2500, L801.1541, L100.0500, L3310.0000 #### [facility] [address] [place], [address] CA,Total 8.4 mg/dL Low 8.5-10.1 [facility] Comment on above: Performed By: #### L 500.2500, L801.1541, L100.0500, L3310.0000 #### [facility] [address] [place], [address] Chloride [Moles/Vol] 107 mmol/L Normal 98-107 [facility] Comment on above: Performed By: #### L 500.2500, L801.1541, L100.0500, L3310.0000 #### [facility] [address] [place], [address] CO2 [Moles/Vol] 29.0 mmol/L Normal 21.0-32.0 [facility] Comment on above: Performed By: #### L 500.2500, L801.1541, L100.0500, L3310.0000 #### [facility] [address] [place], [address] Creatinine [Mass/Vol] 0.69 mg/dL Normal 0.55-1.02 [facility] Comment on above: Result Comment: The validity of the calculated GFR GFRAA in patients over 70 years has not been determined. Clinical correlation is essential. Performed By: #### L 500.2500, L801.1541, L100.0500, L3310.0000 #### [facility] [address] [place], [address] EST GFR - AA 121 mL/min Normal >60 [facility] Comment on above: Result Comment: Afri can Peruvian GFR Calc Performed By: #### L 500.2500, L801.1541, L100.0500, L3310.0000 #### [facility] [address] [place], [address] GAP 6 Normal 5-15 [facility] Comment on above: Performed By: #### L 500.2500, L801.1541, L100.0500, L3310.0000 #### [facility] [address] [place], [address] GFR/1.73 sq M.predicted among non-blacks MDRD (S/P/Bld) [Vol rate/Area] 100 mL/min/{1.73_m2} Normal >60 [facility] Comment on above: Result Comment: Non- GFR Calc Performed By: #### L 500.2500, L801.1541, L100.0500, L3310.0000 #### [facility] [address] [place], [address] Glucose [Mass/Vol] 73 mg/dL Low 74-[address] [facility] Comment on above: Performed By: #### L 500.2500, L801.1541, L100.0500, L3310.0000 #### [facility] [address] [place], [address] Potassium [Moles/Vol] 4.0 mmol/L Normal 3.5-5.1 [facility] Comment on above: Performed By: #### L 500.2500, L801.1541, L100.0500, L3310.0000 #### [facility] [address] [place], [address] Sodium [Moles/Vol] 142 mmol/L Normal 136-[address] [facility] Comment on above: Performed By: #### L 500.2500, L801.1541, L100.0500, L3310.0000 #### [facility] [address] [place], [address] Urea nitrogen [Mass/Vol] 13 mg/dL Normal 7-18 [facility] Comment on above: Performed By: #### L 500.2500, L801.1541, L100.0500, L3310.0000 #### [facility] [address] [place], [address] CBC-Complete Blood Cnt No ffon 08-17-2023 Erythrocyte distribution width (RBC) [Ratio] 13.3 % Normal 11.6-14.6 [facility] Comment on above: Performed By: #### L 500.2500, L801.1541, L100.0500, L3310.0000 #### [facility] [address] [place], [address] Hematocrit (Bld) [Volume fraction] 41.8 % Normal 37-47 [facility] Comment on above: Performed By: #### L 500.2500, L801.1541, L100.0500, L3310.0000 #### [facility] [address] [place], [address] Hemoglobin (Bld) [Mass/Vol] 13.0 g/dL Normal 12.0-15.0 [facility] Comment on above: Performed By: #### L 500.2500, L801.1541, L100.0500, L3310.0000 #### [facility] [address] [place], [address] MCH (RBC) [Entitic mass] 29.5 pg Normal 27.0-32.0 [facility] Comment on above: Performed By: #### L 500.2500, L801.1541, L100.0500, L3310.0000 #### [facility] [address] [place], [address] MCHC (RBC) [Mass/Vol] 31.1 g/dL Low 32-36 [facility] Comment on above: Performed By: #### L 500.2500, L801.1541, L100.0500, L3310.0000 #### [facility] [address] [place], [address] MCV (RBC) [Entitic vol] 95.0 fL Normal 81-99 [facility] Comment on above: Performed By: #### L 500.2500, L801.1541, L100.0500, L3310.0000 #### [facility] [address] [place], [address] Platelet mean volume (Bld) [Entitic vol] 13.3 fL High 6.2-12.0 [facility] Comment on above: Performed By: #### L 500.2500, L801.1541, L100.0500, L3310.0000 #### [facility] [address] [place], [address] Platelets (Bld) [#/Vol] 115 10*3/uL Low 150-450 [facility] Comment on above: Performed By: #### L 500.2500, L801.1541, L100.0500, L3310.0000 #### [facility] [address] [place], [address] RBC (Bld) [#/Vol] 4.40 10*6/uL Normal 4.2-5.4 [facility] Comment on above: Performed By: #### L 500.2500, L801.1541, L100.0500, L3310.0000 #### [facility] [address] [place], [address] RDW SD 47.2 fl High 35.1-43.9 [facility] Comment on above: Performed By: #### L 500.2500, L801.1541, L100.0500, L3310.0000 #### [facility] [address] [place], [address] WBC (Bld) [#/Vol] 5.2 10*3/uL Normal 4.4-11.[address] [facility] Comment on above: Performed By: #### L 500.2500, L801.1541, L100.0500, L3310.0000 #### [facility] [address] [place], [address] KEPPRAon 07-26-2023 levETIRAcetam [Mass/Vol] 15.4 ug/mL Normal 10.0-40.0 [facility] Comment on above: Performed By: #### 2 4321-2, #### [facility] [address] [place] [address] [employer] - [facility] [id number] PHENOBARBITALon 07-26-2023 Phenobarbital, Serum 16 ug/mL Normal 15-40 [facility] Comment on above: Result Comment: Dete ction Limit = 3 Performed By: #### 2 4321-2, #### [facility] [address] [place] [address] [employer] - [facility] [id number] KEPPRAon 06-29-2023 levETIRAcetam [Mass/Vol] 42.7 ug/mL High 10.0-40.0 [facility] Comment on above: Performed By: #### K MARISOL #### Performed for [facility] [address] [place] [address] KEPPRAon 06-09-2023 levETIRAcetam [Mass/Vol] 42.5 ug/mL High 10.0-40.0 [facility] Comment on above: Performed By: #### P SEKOU PEREZ ####Performed for [facility] [place] [address] PHENOBARBITALon 06-07-2023 Phenobarbital, Serum 14 ug/mL Low 15-40 [facility] Comment on above: Result Comment: Dete ction Limit = 3 Performed By: #### P SEKOU PEREZ ####Performed for [facility] [place], [place] [address] PHENOBARBITALon 05-31-2023 Phenobarbital, Serum 13 ug/mL Low 15-40 [facility] Comment on above: Result Comment: Dete ction Limit = 3 Performed By: #### P CHRIS #### Performed for [facility] [address] [place], [place] [address] CT HEAD WITHOUT ONLYon 05-08 CT HEAD WITHOUT ONLY EXAMINATION: CT HEAD WITHOUT CONTRAST CLINICAL INDICATION: Falls COMPARISON: 03/29/2023 TECHNIQUE: Helical imaging of CT head was performed without IV contrast. Radiation dose reduction was achieved using ALARA (as low as reasonably achievable) principals including automatic exposure control, adjusting the mA and/or KV setting according to patient's size and weight, the use of iterative reconstruction techniques as well as performing sagittal and coronal reconstruction images when applicable. FINDINGS: BRAIN PARENCHYMA & EXTRA-AXIAL SPACES: No evidence for acute hemorrhage. Negative for large territory infarct. The right cerebral hemisphere is larger with respect to the left. No focal parenchymal abnormality. Consider right hemimegalencephaly versus mild asymmetric volume loss of the left cerebral hemisphere. No acute extra-axial fluid collection identified. Basal cisterns are patent. VENTRICLES: No evidence of hydrocephalus. SCALP SOFT TISSUES: No significant abnormality. CALVARIUM: No acute process. VISUALIZED PARANASAL SINUSES: No air-fluid levels. MASTOID AIR CELLS: Grossly clear. IMPRESSION: 1. No evidence of acute intracranial abnormality. 2. The right cerebral hemisphere is larger with respect to the left. No focal parenchymal abnormality. Consider right hemimegalencephaly versus mild asymmetric volume loss of the left cerebral hemisphere. 3. Findings are unchanged from the prior study. Normal [facility] CT LUMBAR WITHOUT CONTRAST O NLYon 05-09-2023 CT LUMBAR WITHOUT CONTRAST ONLY EXAMINATION: CT Lumbar Spine Without IV Contrast. CLINICAL INDICATION: Falls TECHNIQUE: Axial images along with multiplanar reconstructions of the lumbar spine were obtained without IV contrast administration. Radiation dose reduction was achieved using ALARA (as low as reasonably achievable) principals including automatic exposure control, adjusting the mA and/or KV setting according to patient's size and weight, the use of iterative reconstruction techniques as well as performing sagittal and coronal reconstruction images when applicable. COMPARISON: None. FINDINGS: ALIGNMENT: Normal alignment. OSSEOUS STRUCTURES: There is no evidence of acute fracture or subluxation. DISC SPACES: Well maintained disc spaces. SOFT TISSUES:Negative for paraspinal hematoma. OTHER: None HARDWARE: None IMPRESSION: 1. No acute fracture or subluxation. Normal [facility] HIP RT 2 OR 3 VIEWSon 2023 HIP RT 2 OR 3 VIEWS EXAM: HIP RT 2 OR 3 VIEWS HISTORY: Falls COMPARISON: None. TECHNIQUE: AP and frog-leg lateral right hip x-rays. FINDINGS: No acute osseous, articular or soft tissue abnormality is seen. There is no significant degenerative change, avascular necrosis or focal bony lesion. IMPRESSION: No acute right hip abnormality. If pain persists, cross-sectional imaging could further evaluate. Normal [facility] KEPPRAon 04-27-2023 levETIRAcetam [Mass/Vol] 29.9 ug/mL Normal 10.0-40.0 [facility] Comment on above: Performed By: #### 2 432-2, #### [facility] [address] [place] [address] [employer] [place] LINK [id number] CULTURE URINEon 04-26-2023 Bacteria identified Cx Nom (U) NO PATHOGENS GROWN AFTER 2 DAYS Normal [facility] Comment on above: Performed By: #### 2 432-2, #### [facility] [address] [facility] [place] [address] [employer] [place] LINK [id number] PHENOBARBITALon 04-25-2023 Phenobarbital, Serum 16 ug/mL Normal 15-40 [facility] Comment on above: Result Comment: Dete ction Limit = 3 Performed By: #### 2 432-2, #### [facility] [address] [place] [address] [employer] [place] LINK [id number] CBC W Auto Differential pane l (Bld)on 04-23-2023 Basophils (Bld) [#/Vol] 0.04 10*3/uL Normal <=0.70 [facility] Comment on above: Performed By: #### 2 4320-03, #### [facility] [address] [place] [address] [employer] [place] CLIA [id number] Basophils/100 WBC (Bld) 0.6 % Normal <=2.0 [facility] Comment on above: Performed By: #### 2 4320-03, #### [facility] [address] [place] [address] [employer] [place] LAMBIA [id number] Eosinophils (Bld) [#/Vol] 0.20 10*3/uL Normal <=0.70 [facility] Comment on above: Performed By: #### 2 4320-03, #### [place] [address] [facility]. [place] [address] [employer] [place] LAMBIA [id number] Eosinophils/100 WBC (Bld) 2.9 % Normal <=10.0 [facility] Comment on above: Performed By: #### 2 4320-03, #### [facility] [address] [place] [address] [employer] [place]AMBIA [id number] Erythrocyte distribution width (RBC) [Entitic vol] 47.1 fL High 36.4-46.3 [facility] Comment on above: Performed By: #### 2 4320-03, #### [facility] [address] [place] [address] [employer] [place]AM[employer]IA [id number] Hematocrit (Bld) [Volume fraction] 42.0 % Normal 37.0-47.0 [facility] Comment on above: Performed By: #### 2 4320-, #### [facility] [address] [place] [address] [employer] [place] [id number] Hemoglobin (Bld) [Mass/Vol] 12.8 g/dL Normal 12.0-16.0 [facility] Comment on above: Performed By: #### 2 4320-2, #### [facility] [address] [place] [address] [employer] [place] [employer] CLIA [id number] Immature granulocytes (Bld) [#/Vol] 0.01 10*3/uL Normal <=0.10 [facility] Comment on above: Performed By: #### 2 4320-2, #### [facility] [address] [place] [address] [employer] [place] [employer] CLIA [id number] Immature granulocytes/100 WBC (Bld) 0.10 % Normal <=1.50 [facility] Comment on above: Performed By: #### 2 4320-03, #### [place] [address] [facility]. [place] [address] [employer] [place] [employer] CLIA [id number] Lymphocytes (Bld) [#/Vol] 1.78 10*3/uL Normal 1.20-3.40 [facility] Comment on above: Performed By: #### 2 4320-03, #### [facility] [address] [facility] [place] [address] [employer] [place] [employer] CLIA [id number] Lymphocytes/100 WBC (Bld) 26.1 % Normal 20.0-40.0 [facility] Comment on above: Performed By: #### 2 4320-03, #### [facility] [address] [place] [address] [employer] [place]AM[employer]IA [id number] MCH (RBC) [Entitic mass] 29.2 pg Normal 27.0-31.0 [facility] Comment on above: Performed By: #### 2 4320-, #### [facility] [address] [place] [address] [employer] [place] [employer] CLIA [id number] MCHC (RBC) [Mass/Vol] 30.5 g/dL Low 32.0-36.0 [facility] Comment on above: Performed By: #### 2 4320-2, #### [facility] [address] [place] [address] [employer] [place] [employer]AM[employer] [id number] MCV (RBC) [Entitic vol] 95.7 fL Normal 80.0-100.0 [facility] Comment on above: Performed By: #### 2 4320-2, #### [place] [address] [place] [address] [employer] [place] [employer]AM[employer] [id number] Monocytes (Bld) [#/Vol] 0.66 10*3/uL High 0.10-0.60 [facility] Comment on above: Performed By: #### 2 4320-2, #### [place] [address] [place] [address] [employer] [place] [employer] CLIA [id number] Monocytes/100 WBC (Bld) 9.7 % High <=8.0 [facility] Comment on above: Performed By: #### 2 4320-2, #### [place] [address] [place] [address] [employer] [place]AM[employer] [id number] Neutrophils (Bld) [#/Vol] 4.13 10*3/uL Normal 1.40-6.50 [facility] Comment on above: Performed By: #### 2 4320-, #### [place] [address] [place] [address] [employer] [place] [employer] CLIA [id number] Neutrophils/100 WBC (Bld) 60.6 % Normal 50.0-70.0 [facility] Comment on above: Performed By: #### 2 4320-2, #### [place] [address] [place] [address] [employer] [place]AM[employer] [id number] Nucleated RBC (Bld) [#/Vol] 0.00 10*3/uL Normal <=0.10 [facility] Comment on above: Performed By: #### 2 4320-2, #### [facility] [address] [place] [address] [employer] [place]AM[employer] [id number] Platelet mean volume (Bld) [Entitic vol] 12.1 fL Normal 9.0-13.0 [facility] Comment on above: Performed By: #### 2 4320-2, #### [facility] [address] [place] [address] [employer] [place] [employer]AM[employer] [id number] Platelets (Bld) [#/Vol] 102 10*3/uL Low 130-400 [facility] Comment on above: Performed By: #### 2 2, #### [facility] [address] [place] [address] [employer] [place]AM[employer] [id number] RBC (Bld) [#/Vol] 4.39 10*6/uL Normal 4.00-6.30 [facility] Comment on above: Performed By: #### 2 4320-03, #### [place] [address] [place] [address] [employer] [place] [employer]AM[employer] [id number] WBC (Bld) [#/Vol] 6.82 10*3/uL Normal 4.80-10.80 [facility] Comment on above: Performed By: #### 2 2, #### [facility] [address] [place] [address] [employer] [place]AM[employer]IA [id number] CHEST AP PORTABLEon 04-23-19 CHEST AP PORTABLE CXR HISTORY: Shortness of breath COMPARISON: 03/29/2023 chest x-ray TECHNIQUE: 1 view chest submitted for review. FINDINGS: The lungs are adequately expanded without evidence of acute infiltrate or effusion. The cardiac silhouette measures within normal. Pulmonary vascularity is unremarkable. Osseous structures demonstrate rightward curvature of the thoracic spine. Clips are seen in the right upper quadrant. IMPRESSION: No plain film evidence for acute cardiopulmonary disease. Normal [facility] Comprehensive metabolic 2000 panelon 04-23-2023 Albumin [Mass/Vol] 3.3 g/dL Low 3.4-5.0 [facility] Comment on above: Performed By: #### 2 432-2, #### [facility] [address] [place] [address] [employer] [place]AM[employer]IA [id number] ALP [Catalytic activity/Vol] 98 U/L Normal 50-136 [facility] Comment on above: Performed By: #### 2 4320-2, #### [facility] [address] [place] [address] [employer] [place] L[employer] [id number] ALT [Catalytic activity/Vol] 26 U/L Normal 14-59 [facility] Comment on above: Performed By: #### 2 4320-2, #### [facility] [address] [place] [address] [employer] [place]AM[employer] [id number] Anion gap [Moles/Vol] 5.0 mmol/L Normal <=15.0 [facility] Comment on above: Performed By: #### 2 4320-2, #### [facility] [address] [place] [address] [employer] [place] [employer] [id number] AST [Catalytic activity/Vol] 21 U/L Normal 15-37 [facility] Comment on above: Performed By: #### 2 4320-2, #### [facility] [address] [place] [address] [employer] [place] L[employer] [id number] Bilirubin [Mass/Vol] 0.3 mg/dL Normal 0.2-1.0 [facility] Comment on above: Performed By: #### 2 4320-2, #### [facility] [address] [place] [address] [employer] [place] LINK [id number] Calcium [Mass/Vol] 8.6 mg/dL Normal 8.5-10.1 [facility] Comment on above: Performed By: #### 2 4320-2, #### [facility] [address] [place] [address] [employer] [place] [employer]AM[employer] [id number] Chloride [Moles/Vol] 108 mmol/L High 98-107 [facility] Comment on above: Performed By: #### 2 4320-2, #### [facility] [address] [place] [address] [employer] [place] [employer]AM[employer] [id number] CO2 [Moles/Vol] 24 mmol/L Normal 21-32 [facility] Comment on above: Performed By: #### 2 4320-2, #### [facility] [address] [place] [address] [employer] [place]AM[employer]IA [id number] Creatinine [Mass/Vol] 0.66 mg/dL Normal 0.51-0.95 [facility] Comment on above: Performed By: #### 2 4320-2, #### [facility] [address] [place] [address] [employer] [place] [employer] [id number] GFR/1.73 sq M.predicted MDRD (S/P/Bld) [Vol rate/Area] mL/min/{1.73_m2} Normal >=59 [facility] Comment on above: Performed By: #### 2 4320-2, #### [facility] [address] [place] [address] [employer] [place] LINK [id number] Glucose [Mass/Vol] 85 mg/dL Normal 74-106 [facility] Comment on above: Performed By: #### 2 4320-2, #### [facility] [address] [place] [address] [employer] [place] [employer] [id number] HGFR GLOMERULAR FILTRATIO N RATE INTERPRETATION~The eGFR is calculated using the MDRD equation.~This equation has been validated in patients with chronic kidney disease;~however, it underestimates the GFR in healthy patients with GFR's over 60 mL/min.~The equation is not valid in children under the age of 18.~NOTE: Criteria for Chronic Kidney Disease:~ ~1. Kidney damage for at least three months, as defined~by structural or functional abnormalities of the kidney,~with or without decreased glomerular filtration rate, manifested by either:~* Pathological abnormalities or~* Markers of Kidney damage, including abnormalities in~the composition of the blood or urine or abnormalities in imaging tests.~ ~2. GFR <60 mL/min/1.73 m squared for at least three months, with or without kidney damage.~ Normal [facility] Comment on above: Performed By: #### 2 4320-, #### [facility] [address] [facility] [place] [address] [employer] [place] [employer] ADONISIA [id number] Potassium [Moles/Vol] 3.7 mmol/L Normal 3.5-5.1 [facility] Comment on above: Performed By: #### 2 4320-03, #### [facility] [address] [facility] [place] [address] [employer] [place] L[employer] [id number] Protein [Mass/Vol] 6.6 g/dL Normal 6.4-8.2 [facility] Comment on above: Performed By: #### 2 4320-03, #### [facility] [address] [facility] [place] [address] [employer] [place] LAMBIA [id number] Sodium [Moles/Vol] 137 mmol/L Normal 136-145 [facility] Comment on above: Performed By: #### 2 4320-03, #### [facility] [address] [facility] [place] [address] [employer] [place] LINK [id number] Urea nitrogen [Mass/Vol] 5 mg/dL Low 7-17 [facility] Comment on above: Performed By: #### 2 4321-2, 15622-2 #### [facility] [address] [place] [address] [employer] [place] L[employer] [id number] MAGNESIUMon 04-23-2023 Magnesium [Mass/Vol] 2.2 mg/dL Normal 1.6-2.6 [facility] Comment on above: Performed By: #### 2 432-2, 48909-7 #### [facility] [address] [place] [address] [employer] [place] LINK [id number] PT and aPTT panel Coag (PPP) on 04-23-2023 aPTT Coag (PPP) [Time] 24.2 s Normal 23.5-31.3 [facility] Comment on above: Performed By: #### 2 432-2, #### [facility] [address] [place] [address] [employer] [place] L[employer] [id number] HPTINR INR REFERENCE RANGE INTERPRETATION Patients on Coumadin 2.0 - 3.0 Patients with mechanical heart valves 2.5 - 3.5 Normal [facility] Comment on above: Performed By: #### 2 4320-2, #### [facility] [address] [place] [address] [employer] [place] LINK [id number] INR Coag (PPP) [Relative time] 1.0 {INR} Normal 0.8-1.1 [facility] Comment on above: Performed By: #### 2 432-2, #### [facility] [address] [place] [address] [employer] [place] L[employer] [id number] PT Coag (PPP) [Time] 10.0 s Normal 9.3-11.5 [facility] Comment on above: Performed By: #### 2 432-2, 12467-8 #### [facility] [address] [place] [address] [employer] [place] LINK [id number] URINALYSIS with reflex to CU LTUREon 04-23-2023 Bacteria LM Ql (Urine sed) Negative Normal TRACE [facility] Comment on above: Performed By: #### 2 4320-2, #### [facility] [address] [place] [address] [employer] [place] LINK [id number] Bilirubin (U) [Mass/Vol] Negative Normal NEGATIVE [facility] Comment on above: Performed By: #### 2 4320-2, #### [facility] [address] [place] [address] [employer] [place] LINK [id number] Clarity (U) CLEAR Normal CLEAR [facility] Comment on above: Performed By: #### 2 4320-2, #### [facility] [address] [place] [address] [employer] [place] LINK [id number] Color (U) YELLOW Normal YELLOW [facility] Comment on above: Performed By: #### 2 4320-, #### [facility] [address] [place] [address] [employer] [place] LINK [id number] Glucose Test strip (U) [Mass/Vol] Negative Normal NEGATIVE [facility] Comment on above: Performed By: #### 2 4320-, #### [facility] [address] [place] [address] [employer] [place] LINK [id number] HMICRO MICROSCOPIC Normal [facility] Comment on above: Performed By: #### 2 4320-, #### [facility] [address] [place] [address] [employer] [place] LINK [id number] Hyaline casts (Urine sed) [#/Area] 0-8 Normal 0-8 [facility] Comment on above: Performed By: #### 2 4320-2, #### [facility] [address] [place] [address] [employer] [place] [employer] CLIA [id number] Ketones (U) [Mass/Vol] Negative Normal NEGATIVE [facility] Comment on above: Performed By: #### 2 432-2, #### [facility] [address] [place] [address] [employer] [place]AMBIA [id number] Leukocyte esterase Qn (U) 3+ Abnormal TRACE [facility] Comment on above: Performed By: #### 2 4320-2, #### [facility] [address] [place] [address] [employer] [place] [employer]AMB[place] [id number] Nitrite Ql (U) Negative Normal NEGATIVE [facility] Comment on above: Performed By: #### 2 4320-, #### [facility] [address] [place] [address] [employer] [place]AM[place]IA [id number] pH (U) 7.0 [pH] Normal 5.5-7.5 [facility] Comment on above: Performed By: #### 2 4320-, #### [facility] [address] [place] [address] [employer] [place] LAMBIA [id number] Protein (U) [Mass/Vol] Negative Normal NEGATIVE [facility] Comment on above: Performed By: #### 2 4320-2, #### [facility] [address] [place] [address] [employer] [place] [employer] CLIA [id number] RBC (U) [#/Vol] Negative Normal NEGATIVE [facility] Comment on above: Performed By: #### 2 4320-2, #### [facility] [address] [place] [address] [employer] [place] LAMBIA [id number] RBC LM.HPF (Urine sed) [#/Area] 0-4 Normal 0-4 [facility] Comment on above: Performed By: #### 2 4320-2, #### [facility] [address] [place] [address] [employer] [place] LINK [id number] Specific gravity (U) [Rel density] 1.007 Low 1.010-1.035 [facility] Comment on above: Performed By: #### 2 4320-2, #### [facility] [address] [place] [address] [employer] [place] LINK [id number] SQUAMOUS EPITHELIALS 10-15 Abnormal 0-5 [facility] Comment on above: Performed By: #### 2 4320-2, #### [facility] [address] [place] [address] [employer] [place] LINK [id number] Urobilinogen Qn (U) 0.2 {Pasquale'U}/dL Normal <=1.0 [facility] Comment on above: Performed By: #### 2 4320-2, #### [facility] [address] [place] [address] [employer] [place] LINK [id number] WBC LM.HPF (Urine sed) [#/Area] 50-100 Abnormal 0-5 [facility] Comment on above: Performed By: #### 2 4320-2, #### [facility] [address] [place] [address] [employer] [place] LINK [id number] VIRAL RESPIRATORY PANELon Adenovirus Not detected Normal NOT DETECTED [facility] Comment on above: Performed By: #### 2 4320-2, #### [facility] [address] [place] [address] [employer] [place] LINK [id number] B parapertussis Not detected Normal NOT DETECTED [facility] Comment on above: Performed By: #### 2 4320-2, #### [facility] [address] [place] [address] [employer] [facility] CLIA [id number] B pertussis Not detected Normal NOT DETECTED [facility] Comment on above: Performed By: #### 2 432-2, #### [facility] [address] [place] [address] [employer] CL[facility] [id number] Chlamydia pneumoniae Not detected Normal NOT DETECTED [facility] Comment on above: Performed By: #### 2 4320-2, #### [facility] [address] [place] [address] [employer] [facility] CLIA [id number] CORONAVIRUS [id number] Not detected Normal NOT DETECTED [facility] Comment on above: Performed By: #### 2 4320-, #### [facility] [address] [place] [address] [employer] [facility] CLIA [id number] CORONAVIRUS [id number] Not detected Normal NOT DETECTED [facility] Comment on above: Performed By: #### 2 4320-, #### [facility] [address] [place] [address] [employer] [facility] CLIA [id number] CORONAVIRUS [id number] Not detected Normal NOT DETECTED [facility] Comment on above: Performed By: #### 2 4320-, #### [facility] [address] [place] [address] [employer] [facility] CLIA [id number] CORONAVIRUS [id number] Not detected Normal NOT DETECTED [facility] Comment on above: Performed By: #### 2 4320-, #### [facility] [address] [place] [address] [employer] [facility] CLIA [id number] HPCR TESTING PERFORMED BY PCR METHODOLOGY Normal [facility] Comment on above: Performed By: #### 2 4320-2, #### [facility] [address] [place] [address] [employer] Apprentice - Eneida LINK [id number] HPCRB TEST PERFORMED USING BIOFIRE Normal [facility] Comment on above: Performed By: #### 2 432-2, #### [facility] [address] [place] [address] [employer] - Eneida LAMBIA [id number] Human Metapneumoviru Not detected Normal NOT DETECTED [facility] Comment on above: Performed By: #### 2 4320-2, #### [facility] [address] [place] [address] [employer] - Eneida Franco CLIA [id number] Influenza A Not detected Normal NOT DETECTED [facility] Comment on above: Performed By: #### 2 4320-, #### [facility] [address] [place] [address] [facility] [facility] CLIA [id number] Influenza A / H1 Normal NOT DETECTED [facility] Comment on above: Performed By: #### 2 4320-, #### [facility] [address] [place] [address] [employer] Service Apprentice - [facility] CLIA [id number] Influenza A / H3 Normal NOT DETECTED [facility] Comment on above: Performed By: #### 2 4320-2, #### [facility] [address] [place] [address] [employer] - Eneida Franco CLIA [id number] Influenza A H1-2009 Normal NOT DETECTED [facility] Comment on above: Performed By: #### 2 4320-2, #### [facility] [address] [place] [address] [employer] App[employer]ice - [facility] ADONISIA [id number] Influenza B Not detected Normal NOT DETECTED [facility] Comment on above: Performed By: #### 2 4320-2, #### [facility] [address] [place] [address] [employer] - [place]ne[place] Franco CLIA [id number] Mycoplasma pneumonia Not detected Normal NOT DETECTED [facility] Comment on above: Performed By: #### 2 4320-2, #### [facility] [address] [place] [address] [employer] - Eneida Franco CLIA [id number] Parainfluenza 1 Not detected Normal NOT DETECTED [facility] Comment on above: Performed By: #### 2 4320-, #### [facility] [address] [place] [address] [facility] [id number] Parainfluenza 2 Not detected Normal NOT DETECTED [facility] Comment on above: Performed By: #### 2 4320-, #### [facility] [address] [place] [address] [facility] [employer] [facility] CLIA [id number] Parainfluenza 3 Not detected Normal NOT DETECTED [facility] Comment on above: Performed By: #### 2 4320-03, #### [facility] [address] [place] [address] [employer] - Ene[place] Franco CLIA [id number] Parainfluenza 4 Not detected Normal NOT DETECTED [facility] Comment on above: Performed By: #### 2 4320-, #### [facility] [address] [place] [address] [facility] [facility] CLIA [id number] Rhinovirus Not detected Normal NOT DETECTED [facility] Comment on above: Performed By: #### 2 4320-, #### [facility] [address] [place] [address] [employer] - Ene[place] Franco CLIA [id number] RSV Ag Ql (Nose) Not detected Normal NOT DETECTED [facility] Comment on above: Performed By: #### 2 4320-, #### [facility] [address] [place], [place] [address] [employer]ice - [employer] LINK [id number] SARS-CoV-2 (COVID-19) RNA MIGUEL+probe Ql (Unsp spec) Not detected Normal NOT DETECTED [facility] Comment on above: Performed By: #### 2 4321-2, #### [facility] [address] [place] [address] [employer] Apprentice - Eneidaarnie CrossFranco CLJENNIFER [id number] CBC,PLATELETSon 04-06-2023 Hematocrit (Bld) [Volume fraction] 48.6 % High 34.9-44.3 [facility] Comment on above: Performed By: #### G AS5L #### [facility] (DEFAULT) [address] [address] Hemoglobin (Bld) [Mass/Vol] 14.7 g/dL Normal 11.4-15.2 [facility] Comment on above: Performed By: #### G AS5L #### [facility] (DEFAULT) [address] [address] MCV (RBC) [Entitic vol] 94.7 fL Normal 79.6-97.7 [facility] Comment on above: Performed By: #### G AS5L #### [facility] (DEFAULT) [address] [address] Mean Cell Hgb 28.7 pg Normal 25.9-33.9 [facility] Comment on above: Performed By: #### G AS5L #### [facility] (DEFAULT) [address] [address] Mean Cell Hgb Conc 30.2 g/dL Low 31.4-35.9 [facility] Comment on above: Performed By: #### G AS5L #### [facility] (DEFAULT) [address] [address] Platelet mean volume (Bld) [Entitic vol] 11.8 fL Normal 8.5-12.2 [facility] Comment on above: Performed By: #### G AS5L #### [facility] (DEFAULT) [address] [place] [address] Platelets (Bld) [#/Vol] 181 10*3/uL Normal 150-393 [facility] Comment on above: Performed By: #### Manda AS5L #### [facility] (DEFAULT) [address] [place] [address] RBC (Bld) [#/Vol] 5.13 10*6/uL High 3.91-5.04 [facility] Comment on above: Performed By: #### Manda AS5L #### [facility] (DEFAULT) [address] [place] [address] RBC Distribution 12.7 % Normal 10.8-14.9 [facility] Comment on above: Performed By: #### Manda AS5L #### [facility] (DEFAULT) [address] [place] [address] WBC (Bld) [#/Vol] 5.80 10*3/uL Normal 3.99-11.19 [facility] Comment on above: Performed By: #### Manda AS5L #### [facility] (DEFAULT) [address] [place] [address] Erythrocyte distribution width (RBC) [Ratio] 12.7 % 10.8 - 14.9 % [facility] Hematocrit (Bld) [Volume fraction] 48.6 % High 34.9 - 44.3 % [facility] Hemoglobin (Bld) [Mass/Vol] 14.7 g/dL 11.4 - 15.2 g/dL [facility] Interpretation and review of laboratory results Abnormal [facility] MCH (RBC) [Entitic mass] 28.7 pg 25.9 - 33.9 pg [facility] MCHC (RBC) [Mass/Vol] 30.2 g/dL Low 31.4 - 35.9 g/dL [facility] MCV (RBC) [Entitic vol] 94.7 fL 79.6 - 97.7 fL [facility] Platelet mean volume (Bld) [Entitic vol] 11.8 fL 8.5 - 12.2 fL [facility] Platelets (Bld) [#/Vol] 181 10*3/uL 150 - 393 K/uL [facility] RBC (Bld) [#/Vol] 5.13 10*6/uL High [facility] WBC (Bld) [#/Vol] 5.80 10*3/uL 3.99 - 11. 19 K/uL [facility] IONIZED CALCIUM, WHOLE BLOOD on 04-06-2023 ICA 3.32 mg/dL Critically low 4.60-5.30 [facility] Comment on above: Performed By: #### U HCG #### [facility] (DEFAULT) [address] [address] IONIZED CALCIUM, WHOLE BLOOD Ordered By: Toby Truong on 04-06-2023 Calcium.ionized (Bld) [Moles/Vol] 3.32 mg/dL Critically low 4.60 - 5.30 mg/dL [facility] Interpretation and review of laboratory results Abnormal [facility] CBC,PLATELETSon 04-05-2023 Hematocrit (Bld) [Volume fraction] 38.5 % Normal 34.9-44.3 [facility] Comment on above: Performed By: #### S CRSB #### [facility] (DEFAULT) [address] [address] Hemoglobin (Bld) [Mass/Vol] 12.3 g/dL Normal 11.4-15.2 [facility] Comment on above: Performed By: #### S CRSB #### [facility] (DEFAULT) [address] [address] MCV (RBC) [Entitic vol] 90.6 fL Normal 79.6-97.7 [facility] Comment on above: Performed By: #### S CRSB #### [facility] (DEFAULT) [address] [address] Mean Cell Hgb 28.9 pg Normal 25.9-33.9 [facility] Comment on above: Performed By: #### S CRSB #### [facility] (DEFAULT) [address] [address] Mean Cell Hgb Conc 31.9 g/dL Normal 31.4-35.9 [facility] Comment on above: Performed By: #### S CRSB #### [facility] (DEFAULT) [address] [address] Platelet mean volume (Bld) [Entitic vol] 11.3 fL Normal 8.5-12.2 [facility] Comment on above: Performed By: #### S CRSB #### [facility] (DEFAULT) [address] [address] Platelets (Bld) [#/Vol] 175 10*3/uL Normal 150-393 [facility] Comment on above: Performed By: #### S CRSB #### [facility] (DEFAULT) [address] [address] RBC (Bld) [#/Vol] 4.25 10*6/uL Normal 3.91-5.04 [facility] Comment on above: Performed By: #### S CRSB #### [facility] (DEFAULT) [address] [address] RBC Distribution 13.1 % Normal 10.8-14.9 [facility] Comment on above: Performed By: #### S CRSB #### [facility] (DEFAULT) [address] [address] WBC (Bld) [#/Vol] 7.22 10*3/uL Normal 3.99-11.19 [facility] Comment on above: Performed By: #### S CRSB #### [facility] (DEFAULT) [address] [address] Erythrocyte distribution width (RBC) [Ratio] 13.1 % 10.8 - 14.9 % [facility] Hematocrit (Bld) [Volume fraction] 38.5 % 34.9 - 44.3 % [facility] Hemoglobin (Bld) [Mass/Vol] 12.3 g/dL 11.4 - 15.2 g/dL [facility] Interpretation and review of laboratory results Normal [facility] MCH (RBC) [Entitic mass] 28.9 pg 25.9 - 33.9 pg [facility] MCHC (RBC) [Mass/Vol] 31.9 g/dL 31.4 - 35.9 g/dL [facility] MCV (RBC) [Entitic vol] 90.6 fL 79.6 - 97.7 fL [facility] Platelet mean volume (Bld) [Entitic vol] 11.3 fL 8.5 - 12.2 fL [facility] Platelets (Bld) [#/Vol] 175 10*3/uL 150 - 393 K/uL [facility] RBC (Bld) [#/Vol] 4.25 10*6/uL [facility] WBC (Bld) [#/Vol] 7.22 10*3/uL 3.99 - 11. 19 K/uL [facility] CHEM 7 (LYTES,BUN,CREA,GLUC) on 04-05-2023 Anion gap [Moles/Vol] 15 mmol/L Normal 7-17 [facility] Comment on above: Performed By: #### U HCG #### [facility] (DEFAULT) [address] [place] [address] Chloride [Moles/Vol] 103 mmol/L Normal 98-108 [facility] Comment on above: Performed By: #### U HCG #### [facility] (DEFAULT) [address] [place] [address] CO2 [Moles/Vol] 22 mmol/L Normal 21-31 [facility] Comment on above: Performed By: #### U HCG #### [facility] (DEFAULT) [address] [place] [address] Creatinine [Mass/Vol] 0.47 mg/dL Low 0.50-1.20 [facility] Comment on above: Performed By: #### U HCG #### [facility] (DEFAULT) [address] [place] [address] eGFR, CKD-EPI, Female > Normal >=60 [facility] Comment on above: Result Comment: Repo rted eGFR is based on the CKD-EPI 2020 equation using creatinine, age, and sex. Performed By: #### U HCG #### [facility] (DEFAULT) [address] [place] [address] Glucose [Mass/Vol] 82 mg/dL Normal 70-99 [facility] Comment on above: Performed By: #### U HCG #### [facility] (DEFAULT) [address] [place] [address] Osmolality [Osmolality] 283 mosm/kg Normal 278-305 [facility] Comment on above: Performed By: #### U HCG #### [facility] (DEFAULT) [address] [place] [address] Potassium [Moles/Vol] 3.4 mmol/L Low 3.5-5.0 [facility] Comment on above: Performed By: #### U HCG #### [facility] (DEFAULT) [address] [place] [address] Sodium [Moles/Vol] 137 mmol/L Normal 135-145 [facility] Comment on above: Performed By: #### U HCG #### [facility] (DEFAULT) [address] [place] [address] Urea nitrogen [Mass/Vol] 6 mg/dL Low 7-25 [facility] Comment on above: Performed By: #### U HCG #### [facility] (DEFAULT) [address] [place] [address] Urea nitrogen/Creatinine [Mass ratio] 13 mg/mg Normal [facility] Comment on above: Performed By: #### U HCG #### [facility] (DEFAULT) [address] [place] [address] Anion gap [Moles/Vol] 15 mmol/L 7 - 17 mmol/L [facility] Chloride [Moles/Vol] 103 mmol/L 98 - 10 8 mmol/L [facility] CO2 [Moles/Vol] 22 mmol/L 21 - 31 mmol/L [facility] Creatinine [Mass/Vol] 0.47 mg/dL Low 0.50 - 1.20 mg/dL [facility] eGFR, CKD-EPI, Female - PINF [facility] Comment on above: Reported eGFR is bas ed on the CKD-EPI 2020 equation using creatinine, age, and sex. Glucose [Mass/Vol] 82 mg/dL 70 - 99 mg/dL [facility] Interpretation and review of laboratory results Abnormal [facility] Osmolality Calc [Osmolality] 283 [facility] Potassium [Moles/Vol] 3.4 mmol/L Low 3.5 - 5.0 mmol/L [facility] Sodium [Moles/Vol] 137 mmol/L 135 - 145 mmol/L [facility] Urea nitrogen [Mass/Vol] 6 mg/dL Low 7 - 25 mg/dL [facility] Urea nitrogen/Creatinine [Mass ratio] 13 mg/mg [facility] IONIZED CALCIUM, WHOLE BLOOD on 04-05-2023 ICA 4.36 mg/dL Low 4.60-5.30 [facility] Comment on above: Performed By: #### S CRSB #### [facility] (DEFAULT) [address] [place] [address] Calcium.ionized (Bld) [Moles/Vol] 4.36 mg/dL Low 4.60 - 5.30 mg/dL [facility] Interpretation and review of laboratory results Abnormal [facility] MAGNESIUMon 04-05-2023 Magnesium [Mass/Vol] 1.6 mg/dL Normal 1.6-2.6 [facility] Comment on above: Performed By: #### U HCG #### [facility] (DEFAULT) [address] [address] Magnesium [Mass/Vol] 1.6 mg/dL 1.6 - 2 .6 mg/dL [facility] No Panel Informationon 04-05 Interpretation and review of laboratory results Normal [facility] PHOSPHATE, INORGANICon 04-05 Phosphorous 3.6 mg/dL Normal 2.2-4.6 [facility] Comment on above: Performed By: #### U HCG #### [facility] (DEFAULT) [address] [address] Phosphate [Mass/Vol] 3.6 mg/dL 2.2 - 4 .6 mg/dL [facility] Bacteria identified Cx Nom ( Bld)on 04-04-2023 Results may be compromised due to volume of BACT\ALERT bottle below 8mLs. The optimal blood volume is 8-10 mls per aerobic/anaerobic blood culture bottle [facility] Bacteria identified Cx Nom (Unsp spec) NO GROWTH DAY 5 OF 5 [facility] CBC,PLATELETSon 04-04-2023 Hematocrit (Bld) [Volume fraction] 38.1 % Normal 34.9-44.3 [facility] Comment on above: Performed By: #### L AB980 #### [facility] (DEFAULT) [address] [address] Hemoglobin (Bld) [Mass/Vol] 11.8 g/dL Normal 11.4-15.2 [facility] Comment on above: Performed By: #### L AB980 #### [facility] (DEFAULT) [address] [address] MCV (RBC) [Entitic vol] 92.7 fL Normal 79.6-97.7 [facility] Comment on above: Performed By: #### L AB980 #### [facility] (DEFAULT) [address] [place] [address] Mean Cell Hgb 28.7 pg Normal 25.9-33.9 [facility] Comment on above: Performed By: #### L AB980 #### [facility] (DEFAULT) [address] [place] [address] Mean Cell Hgb Conc 31.0 g/dL Low 31.4-35.9 [facility] Comment on above: Performed By: #### L AB980 #### [facility] (DEFAULT) [address] [place] [address] Platelet mean volume (Bld) [Entitic vol] 11.7 fL Normal 8.5-12.2 [facility] Comment on above: Performed By: #### L AB980 #### [facility] (DEFAULT) [address] [place] [address] Platelets (Bld) [#/Vol] 161 10*3/uL Normal 150-393 [facility] Comment on above: Performed By: #### L AB980 #### [facility] (DEFAULT) [address] [address] RBC (Bld) [#/Vol] 4.11 10*6/uL Normal 3.91-5.04 [facility] Comment on above: Performed By: #### L AB980 #### [facility] (DEFAULT) [address] [place] [address] RBC Distribution 13.2 % Normal 10.8-14.9 [facility] Comment on above: Performed By: #### L AB980 #### [facility] (DEFAULT) [address] [address] WBC (Bld) [#/Vol] 5.80 10*3/uL Normal 3.99-11.19 [facility] Comment on above: Performed By: #### L AB980 #### [facility] (DEFAULT) [address] [place] [address] Erythrocyte distribution width (RBC) [Ratio] 13.2 % 10.8 - 14.9 % [facility] Hematocrit (Bld) [Volume fraction] 38.1 % 34.9 - 44.3 % [facility] Hemoglobin (Bld) [Mass/Vol] 11.8 g/dL 11.4 - 15.2 g/dL [facility] Interpretation and review of laboratory results Abnormal [facility] MCH (RBC) [Entitic mass] 28.7 pg 25.9 - 33.9 pg [facility] MCHC (RBC) [Mass/Vol] 31.0 g/dL Low 31.4 - 35.9 g/dL [facility] MCV (RBC) [Entitic vol] 92.7 fL 79.6 - 97.7 fL [facility] Platelet mean volume (Bld) [Entitic vol] 11.7 fL 8.5 - 12.2 fL [facility] Platelets (Bld) [#/Vol] 161 10*3/uL 150 - 393 K/uL [facility] RBC (Bld) [#/Vol] 4.11 10*6/uL [facility] WBC (Bld) [#/Vol] 5.80 10*3/uL 3.99 - 11. 19 K/uL [facility] CHEM 7 (LYTES,BUN,CREA,GLUC) on 04-04-2023 Anion gap [Moles/Vol] 12 mmol/L Normal 7-17 [facility] Comment on above: Performed By: #### G AS5L #### [facility] (DEFAULT) [address] [place] [address] Chloride [Moles/Vol] 103 mmol/L Normal 98-108 [facility] Comment on above: Performed By: #### G AS5L #### [facility] (DEFAULT) [address] [place] [address] CO2 [Moles/Vol] 27 mmol/L Normal 21-31 [facility] Comment on above: Performed By: #### G AS5L #### [facility] (DEFAULT) [address] [place] [address] Creatinine [Mass/Vol] 0.43 mg/dL Low 0.50-1.20 [facility] Comment on above: Performed By: #### G AS5L #### [facility] (DEFAULT) [address] [place] [address] eGFR, CKD-EPI, Female > Normal >=60 [facility] Comment on above: Result Comment: Repo rted eGFR is based on the CKD-EPI 2020 equation using creatinine, age, and sex. Performed By: #### G AS5L #### [facility] (DEFAULT) [address] [place] [address] Glucose [Mass/Vol] 79 mg/dL Normal 70-99 [facility] Comment on above: Performed By: #### G AS5L #### [facility] (DEFAULT) [address] [place] [address] Osmolality [Osmolality] 285 mosm/kg Normal 278-305 [facility] Comment on above: Performed By: #### G AS5L #### [facility] (DEFAULT) [address] [place] [address] Potassium [Moles/Vol] 3.5 mmol/L Normal 3.5-5.0 [facility] Comment on above: Performed By: #### G AS5L #### [facility] (DEFAULT) [address] [place] [address] Sodium [Moles/Vol] 138 mmol/L Normal 135-145 [facility] Comment on above: Performed By: #### G AS5L #### [facility] (DEFAULT) [address] [place] [address] Urea nitrogen [Mass/Vol] 9 mg/dL Normal 7-25 [facility] Comment on above: Performed By: #### G AS5L #### [facility] (DEFAULT) [address] [place] [address] Urea nitrogen/Creatinine [Mass ratio] 21 mg/mg Normal [facility] Comment on above: Performed By: #### G AS5L #### [facility] (DEFAULT) [address] [place] [address] Anion gap [Moles/Vol] 12 mmol/L 7 - 17 mmol/L [facility] Chloride [Moles/Vol] 103 mmol/L 98 - 10 8 mmol/L [facility] CO2 [Moles/Vol] 27 mmol/L 21 - 31 mmol/L [facility] Creatinine [Mass/Vol] 0.43 mg/dL Low 0.50 - 1.20 mg/dL [facility] eGFR, CKD-EPI, Female - PINF [facility] Comment on above: Reported eGFR is bas ed on the CKD-EPI 2020 equation using creatinine, age, and sex. Glucose [Mass/Vol] 79 mg/dL 70 - 99 mg/dL [facility] Interpretation and review of laboratory results Abnormal [facility] Osmolality Calc [Osmolality] 285 [facility] Potassium [Moles/Vol] 3.5 mmol/L 3.5 - 5.0 mmol/L [facility] Sodium [Moles/Vol] 138 mmol/L 135 - 145 mmol/L [facility] Urea nitrogen [Mass/Vol] 9 mg/dL 7 - 25 mg/dL [facility] Urea nitrogen/Creatinine [Mass ratio] 21 mg/mg [facility] CULTURE BLOODon 04-04-2023 Bacteria identified Cx Nom (Bld) NO GROWTH OBSERVED AFTER 5 DAYS Normal [facility] Comment on above: Performed By: #### 6 00-7 ####[facility] [facility] [address]Medical Director - Eneida Pearson [id number] Bacteria identified Cx Nom (Bld) GVB Propionibacterium acnes Normal [facility] Comment on above: Performed By: #### 2 4321-2, 72277-6 #### [facility] [address] [place] [address] [employer]eral Service Apprentice - Eneida LINK [id number] GLUCOSE POCon 04-04-2023 Glucose [Mass/Vol] 88 mg/dL 70 - 99 mg/dL [facility] POC Sample Type CAPBL [facility] Test performed at ad dress of the patient encounter. [facility] Glucose [Mass/Vol] 112 mg/dL High 70 - 99 mg/dL [facility] Interpretation and review of laboratory results Abnormal [facility] POC Sample Type CAPBL [facility] Test performed at ad dress of the patient encounter. [facility] Glucose [Mass/Vol] 95 mg/dL 70 - 99 mg/dL [facility] POC Sample Type CAPBL [facility] Test performed at ad dress of the patient encounter. [facility] Glucose [Mass/Vol] 82 mg/dL 70 - 99 mg/dL [facility] POC Sample Type CAPBL [facility] Test performed at ad dress of the patient encounter. [facility] IONIZED CALCIUM, WHOLE BLOOD on 04-04-2023 ICA 4.80 mg/dL Normal 4.60-5.30 [facility] Comment on above: Performed By: #### I CA ####[facility] (DEFAULT)[address] [address] IONIZED CALCIUM, WHOLE BLOOD Ordered By: Sakshi Vargas on 04-04-2023 Calcium.ionized (Bld) [Moles/Vol] 4.80 mg/dL 4.60 - 5.30 mg/dL [facility] Interpretation and review of laboratory results Normal [facility] MAGNESIUMon 04-04-2023 Magnesium [Mass/Vol] 1.7 mg/dL Normal 1.6-2.6 [facility] Comment on above: Performed By: #### G AS5L #### [facility] (DEFAULT) [address] [place], [place] [address] Magnesium [Mass/Vol] 1.7 mg/dL 1.6 - 2 .6 mg/dL [facility] MR Brain WO contraston 04-04 IMPRESSION: 1. Asymmetric volume loss involving the left cerebral hemisphere and cerebellar volume loss involving the left cerebellar hemisphere, could relate to Dzyi-Agoiqkxj-Wskddq syndrome given asymmetric thickening of left parietal bone. Other considerations would include Donald encephalitis and sequelae of long-standing epilepsy. 2. 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 3. Few nonspecific FLAIR hyperintensities in the periventricular and cortical white matter and the posterior fossa. Differential consideration include sequelae of remote demyelination, other infectious/inflammatory insults as well as chronic microvascular ischemic disease. 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 Study includes coronal high resolution T1 MPRAGE, T2 and FLAIR sequences through the temporal lobes, in addition to standard imaging sequences. Study was performed at 1.5 Karen. FINDINGS: As seen on CT head, there is asymmetric volume loss involving the entire left cerebral hemisphere and less pronounced involvement of the left cerebellar hemisphere better appreciated on CT, there is mild asymmetric thickening of the left parietal bone.. The cortical ribbon appears intact. No gross malformation of cortical development is seen. The there is subtle asymmetric volume loss involving the posterior body of the left hippocampus with mildly increased FLAIR hyperintensity (series 14/image 34). Midline structures appear intact. There are scattered T2/FLAIR hyperintensities in the periventricular and subcortical white matter there is also FLAIR hyperintensity along left aspect of the body of the corpus callosum, left basal ganglia as well as the left dorsal anna marie, left cerebellar hemisphere. 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 There is no evidence of acute infarct. There is no evidence of acute infarct. No extracerebral collection. Sellar and parasellar structures are unremarkable. There is parenchymal volume loss prominence of ventricles and sulci. Opacification of the right sphenoid sinus. RADIOLOGY Valerie Perez MD - 04/04/2023 EXAM: MRI BRAIN WITHOUT CONTRAST, 04/04/2023 21:16 PM COMPARISON: CT HEAD WITHOUT CONTRAST March 30, 2023 CLINICAL INDICATIONS: 37 years Female status epilepticus in the setting of Zfku-Mouwgusn-Xhzzjg syndrome; RELEVANT CLINICAL HISTORY: TECHNIQUE: Multisequence, multiplanar MRI of the brain was obtained both before and after intravenous administration of gadolinium-based contrast using a dedicated seizure protocol. Study includes coronal high resolution T1 MPRAGE, T2 and FLAIR sequences through the temporal lobes, in addition to standard imaging sequences. Study was performed at 1.5 Karen. FINDINGS: As seen on CT head, there is asymmetric volume loss involving the entire left cerebral hemisphere and less pronounced involvement of the left cerebellar hemisphere better appreciated on CT, there is mild asymmetric thickening of the left parietal bone.. The cortical ribbon appears intact. No gross malformation of cortical development is seen. The there is subtle asymmetric volume loss involving the posterior body of the left hippocampus with mildly increased FLAIR hyperintensity (series 14/image 34). Midline structures appear intact. There are scattered T2/FLAIR hyperintensities in the periventricular and subcortical white matter there is also FLAIR hyperintensity along left aspect of the body of the corpus callosum, left basal ganglia as well as the left dorsal anna marie, left cerebellar hemisphere. 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 There is no evidence of acute infarct. There is no evidence of acute infarct. No extracerebral collection. Sellar and parasellar structures are unremarkable. There is parenchymal volume loss prominence of ventricles and sulci. Opacification of the right sphenoid sinus. IMPRESSION IMPRESSION: 1. Asymmetric volume loss involving the left cerebral hemisphere and cerebellar volume loss involving the left cerebellar hemisphere, could relate to Dkci-Uzubvjwi-Gjwpap syndrome given asymmetric thickening of left parietal bone. Other considerations would include Donald encephalitis and sequelae of long-standing epilepsy. 2. 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 3. Few nonspecific FLAIR hyperintensities in the periventricular and cortical white matter and the posterior fossa. Differential consideration include sequelae of remote demyelination, other infectious/inflammatory insults as well as chronic microvascular ischemic disease. 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 Study includes coronal high resolution T1 MPRAGE, T2 and FLAIR sequences through the temporal lobes, in addition to standard imaging sequences. Study was performed at 1.5 Karen. FINDINGS: As seen on CT head, there is asymmetric volume loss involving the entire left cerebral hemisphere and less pronounced involvement of the left cerebellar hemisphere better appreciated on CT, there is mild asymmetric thickening of the left parietal bone.. The cortical ribbon appears intact. No gross malformation of cortical development is seen. The there is subtle asymmetric volume loss involving the posterior body of the left hippocampus with mildly increased FLAIR hyperintensity (series 14/image 34). Midline structures appear intact. There are scattered T2/FLAIR hyperintensities in the periventricular and subcortical white matter there is also FLAIR hyperintensity along left aspect of the body of the corpus callosum, left basal ganglia as well as the left dorsal anna marie, left cerebellar hemisphere. 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 There is no evidence of acute infarct. There is no evidence of acute infarct. No extracerebral collection. Sellar and parasellar structures are unremarkable. There is parenchymal volume loss prominence of ventricles and sulci. Opacification of the right sphenoid sinus. IMPRESSION: 1. Asymmetric volume loss involving the left cerebral hemisphere and cerebellar volume loss involving the left cerebellar hemisphere, could relate to Nqup-Wxkqitwn-Rdmjyh syndrome given asymmetric thickening of left parietal bone. Other considerations would include Donald encephalitis and sequelae of long-standing epilepsy. 2. 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 3. Few nonspecific FLAIR hyperintensities in the periventricular and cortical white matter and the posterior fossa. Differential consideration include sequelae of remote demyelination, other infectious/inflammatory insults as well as chronic microvascular ischemic disease. Normal [facility] MRI PLAIN FILM FOR NEURO EXA 04-04-2023 MRI PLAIN FILM FOR NEURO EXAM EXAM: MRI PLAIN FILM FOR NEURO EXAM, 04/03/2023 16:17 PM COMPARISON: No priors available for comparison.. CLINICAL INDICATIONS: 37-year-old female. MRI clearance. FINDINGS: A single AP radiograph of the pelvis was obtained as part of safety screening prior to an MRI examination. No radiopaque foreign bodies or implants are seen that would preclude an MRI examination. No major incidental findings are seen. IMPRESSION: No radiopaque foreign bodies to preclude MRI. Normal [facility] No Panel Informationon 04-04 Interpretation and review of laboratory results Normal [facility] PHENOBARBITAL LEVEL, TROUGH (PRE DRUG LEVEL)on 04-04-2023 PHENobarbital [Mass/Vol] 12.5 ug/mL Low Therapeutic Range: 15.0-40.0 mcg/mL [facility] Comment on above: Order Comment: Colle ct with an ESWAB - Anterior Nares for MRSA + MSSA This test was performed using a real time PCR assay. Results should be interpreted in conjunction with other clinical and laboratory findings. A positive result does not necessarily indicate the presence of viable organism. This test should not be used as a test of cure. For E-swab specimens, this test was developed and its performance characteristics determined by the Clinical Microbiology Laboratory at [facility]. It has not been cleared or approved by the FDA.The laboratory is regulated under CLIA as qualified to perform high-complexity testing. This test is used for clinical purposes. It should not be regarded as investigational or for research. Performed By: #### S CRSB #### [facility] (DEFAULT) [address] [address] Interpretation and review of laboratory results Abnormal [facility] PHENobarbital [Mass/Vol] 12.5 ug/mL Low [facility] PHOSPHATE, INORGANICon 04-04 Phosphorous 3.1 mg/dL Normal 2.2-4.6 [facility] Comment on above: Performed By: #### G AS5L #### [facility] (DEFAULT) [address] [address] Phosphate [Mass/Vol] 3.1 mg/dL 2.2 - 4 .6 mg/dL [facility] CBC,PLATELETSon 04-03-2023 Hematocrit (Bld) [Volume fraction] 37.8 % Normal 34.9-44.3 [facility] Comment on above: Performed By: #### H EMOGC #### [facility] (DEFAULT) [address] [place] [address] Hemoglobin (Bld) [Mass/Vol] 11.8 g/dL Normal 11.4-15.2 [facility] Comment on above: Performed By: #### H EMOGC #### [facility] (DEFAULT) [address] [address] MCV (RBC) [Entitic vol] 92.0 fL Normal 79.6-97.7 [facility] Comment on above: Performed By: #### H EMOGC #### [facility] (DEFAULT) [address] [address] Mean Cell Hgb 28.7 pg Normal 25.9-33.9 [facility] Comment on above: Performed By: #### H EMOGC #### [facility] (DEFAULT) [address] [place] [address] Mean Cell Hgb Conc 31.2 g/dL Low 31.4-35.9 [facility] Comment on above: Performed By: #### H EMOGC #### [facility] (DEFAULT) [address] [place] [address] Platelet mean volume (Bld) [Entitic vol] 12.2 fL Normal 8.5-12.2 [facility] Comment on above: Performed By: #### H EMOGC #### [facility] (DEFAULT) [address] [place] [address] Platelets (Bld) [#/Vol] 162 10*3/uL Normal 150-393 [facility] Comment on above: Performed By: #### H EMO #### [facility] (DEFAULT) [address] [place] [address] RBC (Bld) [#/Vol] 4.11 10*6/uL Normal 3.91-5.04 [facility] Comment on above: Performed By: #### H EMO #### [facility] (DEFAULT) [address] [place] [address] RBC Distribution 13.5 % Normal 10.8-14.9 [facility] Comment on above: Performed By: #### H EMO #### [facility] (DEFAULT) [address] [place] [address] WBC (Bld) [#/Vol] 8.36 10*3/uL Normal 3.99-11.19 [facility] Comment on above: Performed By: #### H EMOGC #### [facility] (DEFAULT) [address] [place] [address] Erythrocyte distribution width (RBC) [Ratio] 13.5 % 10.8 - 14.9 % [facility] Hematocrit (Bld) [Volume fraction] 37.8 % 34.9 - 44.3 % [facility] Hemoglobin (Bld) [Mass/Vol] 11.8 g/dL 11.4 - 15.2 g/dL [facility] Interpretation and review of laboratory results Abnormal [facility] MCH (RBC) [Entitic mass] 28.7 pg 25.9 - 33.9 pg [facility] MCHC (RBC) [Mass/Vol] 31.2 g/dL Low 31.4 - 35.9 g/dL [facility] MCV (RBC) [Entitic vol] 92.0 fL 79.6 - 97.7 fL [facility] Platelet mean volume (Bld) [Entitic vol] 12.2 fL 8.5 - 12.2 fL [facility] Platelets (Bld) [#/Vol] 162 10*3/uL 150 - 393 K/uL [facility] RBC (Bld) [#/Vol] 4.11 10*6/uL [facility] WBC (Bld) [#/Vol] 8.36 10*3/uL 3.99 - 11. 19 K/uL [facility] CHEM 7 (LYTES,BUN,CREA,GLUC) on 04-03-2023 Anion gap [Moles/Vol] 11 mmol/L Normal 7-17 [facility] Comment on above: Performed By: #### U HCG #### [facility] (DEFAULT) [address] [place] [address] Chloride [Moles/Vol] 103 mmol/L Normal 98-108 [facility] Comment on above: Performed By: #### U HCG #### [facility] (DEFAULT) [address] [place] [address] CO2 [Moles/Vol] 29 mmol/L Normal 21-31 [facility] Comment on above: Performed By: #### U HCG #### [facility] (DEFAULT) [address] [place] [address] Creatinine [Mass/Vol] 0.49 mg/dL Low 0.50-1.20 [facility] Comment on above: Performed By: #### U HCG #### [facility] (DEFAULT) [address] [place] [address] eGFR, CKD-EPI, Female > Normal >=60 [facility] Comment on above: Result Comment: Repo rted eGFR is based on the CKD-EPI 2020 equation using creatinine, age, and sex. Performed By: #### U HCG #### [facility] (DEFAULT) [address] [place] [address] Glucose [Mass/Vol] 99 mg/dL Normal 70-99 [facility] Comment on above: Performed By: #### U HCG #### [facility] (DEFAULT) [address] [place] [address] Osmolality [Osmolality] 291 mosm/kg Normal 278-305 [facility] Comment on above: Performed By: #### U HCG #### [facility] (DEFAULT) [address] [place] [address] Potassium [Moles/Vol] 3.6 mmol/L Normal 3.5-5.0 [facility] Comment on above: Performed By: #### U HCG #### [facility] (DEFAULT) [address] [place] [address] Sodium [Moles/Vol] 139 mmol/L Normal 135-145 [facility] Comment on above: Performed By: #### U HCG #### [facility] (DEFAULT) [address] [place] [address] Urea nitrogen [Mass/Vol] 14 mg/dL Normal 7-25 [facility] Comment on above: Performed By: #### U HCG #### [facility] (DEFAULT) [address] [place] [address] Urea nitrogen/Creatinine [Mass ratio] 29 mg/mg Normal [facility] Comment on above: Performed By: #### U HCG #### [facility] (DEFAULT) [address] [place] [address] Anion gap [Moles/Vol] 11 mmol/L 7 - 17 mmol/L [facility] Chloride [Moles/Vol] 103 mmol/L 98 - 10 8 mmol/L [facility] CO2 [Moles/Vol] 29 mmol/L 21 - 31 mmol/L [facility] Creatinine [Mass/Vol] 0.49 mg/dL Low 0.50 - 1.20 mg/dL [facility] eGFR, CKD-EPI, Female - PINF [facility] Comment on above: Reported eGFR is bas ed on the CKD-EPI 2020 equation using creatinine, age, and sex. Glucose [Mass/Vol] 99 mg/dL 70 - 99 mg/dL [facility] Interpretation and review of laboratory results Abnormal [facility] Osmolality Calc [Osmolality] 291 [facility] Potassium [Moles/Vol] 3.6 mmol/L 3.5 - 5.0 mmol/L [facility] Sodium [Moles/Vol] 139 mmol/L 135 - 145 mmol/L [facility] Urea nitrogen [Mass/Vol] 14 mg/dL 7 - 25 mg/dL [facility] Urea nitrogen/Creatinine [Mass ratio] 29 mg/mg [facility] GLUCOSE POCon 04-03-2023 Glucose [Mass/Vol] 103 mg/dL High 70 - 99 mg/dL [facility] Interpretation and review of laboratory results Abnormal [facility] Test performed at ad dress of the patient encounter. [facility] Glucose [Mass/Vol] 84 mg/dL 70 - 99 mg/dL [facility] POC Sample Type [facility] Test performed at ad dress of the patient encounter. [facility] IONIZED CALCIUM, WHOLE BLOOD on 04-03-2023 ICA 4.56 mg/dL Low 4.60-5.30 [facility] Comment on above: Performed By: #### U HCG #### [facility] (DEFAULT) [address] [place] [address] Calcium.ionized (Bld) [Moles/Vol] 4.56 mg/dL Low 4.60 - 5.30 mg/dL [facility] Interpretation and review of laboratory results Abnormal [facility] MAGNESIUMon 04-03-2023 Magnesium [Mass/Vol] 1.8 mg/dL Normal 1.6-2.6 [facility] Comment on above: Performed By: #### U HCG #### [facility] (DEFAULT) [address] [address] Magnesium [Mass/Vol] 1.8 mg/dL 1.6 - 2 .6 mg/dL [facility] MRI PLAIN FILM FOR NEURO EXA 04-03-2023 IMPRESSION: No radiopaque foreign bodies to preclude MRI. OLOGY EXAM: MRI PLAIN FILM FOR NEURO EXAM, 04/03/2023 16:17 PM COMPARISON: No priors available for comparison.. CLINICAL INDICATIONS: 37-year-old female. MRI clearance. FINDINGS: A single AP radiograph of the pelvis was obtained as part of safety screening prior to an MRI examination. No radiopaque foreign bodies or implants are seen that would preclude an MRI examination. No major incidental findings are seen. RADIOLOGY Deedee Nolasco MD, PhD - 04/03/2023 EXAM: MRI PLAIN FILM FOR NEURO EXAM, 04/03/2023 16:17 PM COMPARISON: No priors available for comparison.. CLINICAL INDICATIONS: 37-year-old female. MRI clearance. FINDINGS: A single AP radiograph of the pelvis was obtained as part of safety screening prior to an MRI examination. No radiopaque foreign bodies or implants are seen that would preclude an MRI examination. No major incidental findings are seen. IMPRESSION IMPRESSION: No radiopaque foreign bodies to preclude MRI. [facility] Radiology Study observation (narrative) [facility] MRI PLAIN FILM FOR NEURO EXA MOrdered By: Deedee Flores on 04-03-2023 [facility] Work Phone: No Panel Informationon 04-03 Interpretation and review of laboratory results Normal [facility] PHOSPHATE, INORGANICon 04-03 Phosphorous 3.1 mg/dL Normal 2.2-4.6 [facility] Comment on above: Performed By: #### Manda AS5L #### [facility] (DEFAULT) [address] [address] Phosphate [Mass/Vol] 3.1 mg/dL 2.2 - 4 .6 mg/dL [facility] CBC,PLATELETSon 04-02-2023 Hematocrit (Bld) [Volume fraction] 39.4 % Normal 34.9-44.3 [facility] Comment on above: Performed By: #### Manda AS5L #### [facility] (DEFAULT) [address] [place] [address] Hemoglobin (Bld) [Mass/Vol] 12.3 g/dL Normal 11.4-15.2 [facility] Comment on above: Performed By: #### Manda AS5L #### [facility] (DEFAULT) [address] [address] MCV (RBC) [Entitic vol] 92.7 fL Normal 79.6-97.7 [facility] Comment on above: Performed By: #### G AS5L #### [facility] (DEFAULT) [address] [place] [address] Mean Cell Hgb 28.9 pg Normal 25.9-33.9 [facility] Comment on above: Performed By: #### Manda AS5L #### [facility] (DEFAULT) [address] [place] [address] Mean Cell Hgb Conc 31.2 g/dL Low 31.4-35.9 [facility] Comment on above: Performed By: #### Manda AS5L #### [facility] (DEFAULT) [address] [place] [address] Platelet mean volume (Bld) [Entitic vol] 12.2 fL Normal 8.5-12.2 [facility] Comment on above: Performed By: #### G AS5L #### [facility] (DEFAULT) [address] [place] [address] Platelets (Bld) [#/Vol] 157 10*3/uL Normal 150-393 [facility] Comment on above: Performed By: #### G AS5L #### [facility] (DEFAULT) [address] [place] [address] RBC (Bld) [#/Vol] 4.25 10*6/uL Normal 3.91-5.04 [facility] Comment on above: Performed By: #### G AS5L #### [facility] (DEFAULT) [address] [place] [address] RBC Distribution 13.6 % Normal 10.8-14.9 [facility] Comment on above: Performed By: #### Manda AS5L #### [facility] (DEFAULT) [address] [place] [address] WBC (Bld) [#/Vol] 9.36 10*3/uL Normal 3.99-11.19 [facility] Comment on above: Performed By: #### G AS5L #### [facility] (DEFAULT) [address] [place] [address] Erythrocyte distribution width (RBC) [Ratio] 13.6 % 10.8 - 14.9 % [facility] Hematocrit (Bld) [Volume fraction] 39.4 % 34.9 - 44.3 % [facility] Hemoglobin (Bld) [Mass/Vol] 12.3 g/dL 11.4 - 15.2 g/dL [facility] Interpretation and review of laboratory results Abnormal [facility] MCH (RBC) [Entitic mass] 28.9 pg 25.9 - 33.9 pg [facility] MCHC (RBC) [Mass/Vol] 31.2 g/dL Low 31.4 - 35.9 g/dL [facility] MCV (RBC) [Entitic vol] 92.7 fL 79.6 - 97.7 fL [facility] Platelet mean volume (Bld) [Entitic vol] 12.2 fL 8.5 - 12.2 fL [facility] Platelets (Bld) [#/Vol] 157 10*3/uL 150 - 393 K/uL [facility] RBC (Bld) [#/Vol] 4.25 10*6/uL [facility] WBC (Bld) [#/Vol] 9.36 10*3/uL 3.99 - 11. 19 K/uL [facility] CHEM 7 (LYTES,BUN,CREA,GLUC) on 04-02-2023 Anion gap [Moles/Vol] 12 mmol/L Normal 7-17 [facility] Comment on above: Performed By: #### U HCG #### [facility] (DEFAULT) [address] [place] [address] Chloride [Moles/Vol] 103 mmol/L Normal 98-108 [facility] Comment on above: Performed By: #### U HCG #### [facility] (DEFAULT) [address] [place] [address] CO2 [Moles/Vol] 28 mmol/L Normal 21-31 [facility] Comment on above: Performed By: #### U HCG #### [facility] (DEFAULT) [address] [place] [address] Creatinine [Mass/Vol] 0.56 mg/dL Normal 0.50-1.20 [facility] Comment on above: Performed By: #### U HCG #### [facility] (DEFAULT) [address] [place] [address] eGFR, CKD-EPI, Female > Normal >=60 [facility] Comment on above: Result Comment: Repo rted eGFR is based on the CKD-EPI 2020 equation using creatinine, age, and sex. Performed By: #### U HCG #### [facility] (DEFAULT) [address] [place] [address] Glucose [Mass/Vol] 109 mg/dL High 70-99 [facility] Comment on above: Performed By: #### U HCG #### [facility] (DEFAULT) [address] [place] [address] Osmolality [Osmolality] 291 mosm/kg Normal 278-305 [facility] Comment on above: Performed By: #### U HCG #### [facility] (DEFAULT) [address] [place] [address] Potassium [Moles/Vol] 3.8 mmol/L Normal 3.5-5.0 [facility] Comment on above: Performed By: #### U HCG #### [facility] (DEFAULT) [address] [place] [address] Sodium [Moles/Vol] 139 mmol/L Normal 135-145 [facility] Comment on above: Performed By: #### U HCG #### [facility] (DEFAULT) [address] [place] [address] Urea nitrogen [Mass/Vol] 12 mg/dL Normal 7-25 [facility] Comment on above: Performed By: #### U HCG #### [facility] (DEFAULT) [address] [place] [address] Urea nitrogen/Creatinine [Mass ratio] 21 mg/mg Normal [facility] Comment on above: Performed By: #### U HCG #### [facility] (DEFAULT) [address] [place] [address] Anion gap [Moles/Vol] 12 mmol/L 7 - 17 mmol/L [facility] Chloride [Moles/Vol] 103 mmol/L 98 - 10 8 mmol/L [facility] CO2 [Moles/Vol] 28 mmol/L 21 - 31 mmol/L [facility] Creatinine [Mass/Vol] 0.56 mg/dL 0.50 - 1.20 mg/dL [facility] eGFR, CKD-EPI, Female - PINF [facility] Comment on above: Reported eGFR is bas ed on the CKD-EPI 2020 equation using creatinine, age, and sex. Glucose [Mass/Vol] 109 mg/dL High 70 - 99 mg[facility] Interpretation and review of laboratory results Abnormal [facility] Osmolality Calc [Osmolality] 291 [facility] Potassium [Moles/Vol] 3.8 mmol/L 3.5 - 5.0 mmol/L [facility] Sodium [Moles/Vol] 139 mmol/L 135 - 145 mmol/L [facility] Urea nitrogen [Mass/Vol] 12 mg/dL 7 - 25 mg/dL [facility] Urea nitrogen/Creatinine [Mass ratio] 21 mg/mg [facility] GENERAL PROCEDUREon 04-02-19 Abdulaziz Cruz MD - 04/02/2023 10:20 AM EST Continuous video-EEG recording - FINAL SUMMARY START OF RECORDIN03/30/2023@16:02 Start of Review: 03/31/2023@ 09:00 End of Review: 04/01/2023@ 18:09 HISTORY: 37yoF admitted on 03/30/2023 with status epilepticus. cEEG obtained to monitor for ongoing seizures and treatment response. MEDICATIONS AT START: [START ON 03/31/2023] chlorhexidine 15 mL Mouth/Throat Q12H esomeprazole 40 mg Per NG tube Daily Gabapentin 400 mg Per NG tube Q8H Insulin regular Subcutaneous Q6H levETIRAcetam 1,500 mg Intravenous Q12HNS [START ON 03/31/2023] PHENobarbital 32.4 mg Per NG tube Daily PHENobarbital 48.6 mg Per NG tube Q24H Senna 8.6 mg Oral Daily Or Senna 8.6 mg Per NG tube Daily [START ON 03/31/2023] Sertraline 125 mg Per NG tube Daily Sodium chloride 0.9% w/potassium cl TECHNICAL DESCRIPTION: This is a 21-channel digital EEG recording with time-locked video and single-channel electrocardiogram. Electrodes are placed according to the 10 to 20 International System. The patient was monitored continuously by EEG technicians with EEG reviewed intermittently and annotations made to the EEG record every two hours. Portions of this record are reviewed using bandpass filters of 1 to 70 Hz and sensitivity of 7mV/mm. DESCRIPTION: Clinical State: intubated INTERICTAL: Background: continuous, asymmetric, no PDR, absent AP gradient Superimposed Frequencies: excess beta, alpha , delta/theta Voltage: >20V Reactivity: -03/30/2023@1643(CYSTE): no EEG/clinical reactivity State Change: present without N2 ; quiet state with diffuse decrease in amplitude and fast activity Focal Asymmetry: continuous R hemispheric polymorphic delta slowing Rhythmic or Periodic Patterns: occasional 0.5-1.0Hz SI-LRDA over R hemisphere (not qualifying for ESz nor IIC) Sporadic ED's: Now rare R temporal sharp/spike-waves maximal at T8/F8>P8 with broad field, more frequently noted on LEFT (F7, T7). Brief Rhythmic Discharges: none EKG: NSR ICTAL / EVENTS: Seizure: none Other Clinical Events: none Activation Procedures Hyperventilation: N/A Photic stimulation: N/A Summary of EEG and Behavior: Diffuse slowing/disorganization RIGHT hemispheric slowing compared to the LEFT. Excess beta. Frequent R temporal IEDs evolving to rare RIGHT and frequent LEFT discharges. Occasional 0.5-1.0Hz SI-LRDA (not qualifying for ESz nor IIC). No EKG abnormality Clinical Correlation: This 2 day cEEG was abnormal. The findings were consistent with: 1) Nonspecific moderate diffuse encephalopathy, in part due to medication effect. 2) RIGHT hemispheric structural or physiologic abnormality 3) RIGHT & LEFT temporal cortical irritation and risk for focal onset seizures Kaushal Cruz MD, MSBME [employer] Department of Neurology - Epilepsy Division [facility] Radiology Study observation (narrative) [facility] GLUCOSE POCon 04-02-2023 Glucose [Mass/Vol] 115 mg/dL High 70 - 99 mg/dL [facility] Interpretation and review of laboratory results Abnormal [facility] POC Sample Type CAPBL [facility] Test performed at ad dress of the patient encounter. [facility] Glucose [Mass/Vol] 112 mg/dL High 70 - 99 mg/dL [facility] Interpretation and review of laboratory results Abnormal [facility] POC Sample Type CAPBL [facility] Test performed at ad dress of the patient encounter. [facility] Glucose [Mass/Vol] 123 mg/dL High 70 - 99 mg/dL [facility] Interpretation and review of laboratory results Abnormal [facility] POC Sample Type CAPBL [facility] Test performed at ad dress of the patient encounter[facility] Glucose [Mass/Vol] 129 mg/dL High 70 - 99 mg/dL [facility] Interpretation and review of laboratory results Abnormal [facility] POC Sample Type CAPBL [facility] Test performed at ad dress of the patient encounter. [facility] Glucose [Mass/Vol] 106 mg/dL High 70 - 99 mg/dL [facility] Interpretation and review of laboratory results Abnormal [facility] POC Sample Type CAPBL [facility] Test performed at ad dress of the patient encounter. [facility] Glucose [Mass/Vol] 106 mg/dL High 70 - 99 mg/dL [facility] Interpretation and review of laboratory results Abnormal [facility] POC Sample Type VENO [facility] Test performed at ad dress of the patient encounter. [facility] IONIZED CALCIUM, WHOLE BLOOD on 04-02-2023 ICA 4.26 mg/dL Low 4.60-5.30 [facility] Comment on above: Performed By: #### G AS5L #### [facility] (DEFAULT) [address] [place] [address] IONIZED CALCIUM, WHOLE BLOOD Ordered By: Riddhi Curtis on 04-02-2023 Calcium.ionized (Bld) [Moles/Vol] 4.26 mg/dL Low 4.60 - 5.30 mg/dL [facility] Interpretation and review of laboratory results Abnormal [facility] MAGNESIUMon 04-02-2023 Magnesium [Mass/Vol] 1.9 mg/dL Normal 1.6-2.6 [facility] Comment on above: Performed By: #### S CRSB #### [facility] (DEFAULT) [address] [place] [address] Magnesium [Mass/Vol] 1.9 mg/dL 1.6 - 2 .6 mg/dL [facility] No Panel Informationon 04-02 Interpretation and review of laboratory results Normal [facility] PHOSPHATE, INORGANICon 04-02 Phosphorous 3.1 mg/dL Normal 2.2-4.6 [facility] Comment on above: Performed By: #### U HCG #### [facility] (DEFAULT) [address] [address] Phosphate [Mass/Vol] 3.1 mg/dL 2.2 - 4 .6 mg/dL [facility] Bacteria identified Respirat ory culture Nom (Unsp spec)Ordered By: Terrell Estrada on 04-01-2023 Bacteria identified Cx Nom (Unsp spec) NO GROWTH DAY 2 OF 2 [facility] Microscopic observation Other stain Nom (Unsp spec) Neutrophils, Heavy [facility] Microscopic observation Other stain Nom (Unsp spec) Red Blood Cells Present [facility] Microscopic observation Other stain Nom (Unsp spec) No organisms seen [facility] CBC,PLATELETSon 04-01-2023 Hematocrit (Bld) [Volume fraction] 41.3 % Normal 34.9-44.3 [facility] Comment on above: Performed By: #### T YPEC #### [facility] (DEFAULT) [address] [place] [address] Hemoglobin (Bld) [Mass/Vol] 12.8 g/dL Normal 11.4-15.2 [facility] Comment on above: Performed By: #### T YPEC #### [facility] (DEFAULT) [address] [place] [address] MCV (RBC) [Entitic vol] 92.2 fL Normal 79.6-97.7 [facility] Comment on above: Performed By: #### T YPEC #### [facility] (DEFAULT) [address] [address] Mean Cell Hgb 28.6 pg Normal 25.9-33.9 [facility] Comment on above: Performed By: #### T YPEC #### [facility] (DEFAULT) [address] [address] Mean Cell Hgb Conc 31.0 g/dL Low 31.4-35.9 [facility] Comment on above: Performed By: #### T YPEC #### [facility] (DEFAULT) [address] [address] Platelet mean volume (Bld) [Entitic vol] 12.1 fL Normal 8.5-12.2 [facility] Comment on above: Performed By: #### T YPEC #### [facility] (DEFAULT) [address] [address] Platelets (Bld) [#/Vol] 150 10*3/uL Normal 150-393 [facility] Comment on above: Performed By: #### T YPEC #### [facility] (DEFAULT) [address] [address] RBC (Bld) [#/Vol] 4.48 10*6/uL Normal 3.91-5.04 [facility] Comment on above: Performed By: #### T YPEC #### [facility] (DEFAULT) [address] [address] RBC Distribution 13.3 % Normal 10.8-14.9 [facility] Comment on above: Performed By: #### T YPEC #### [facility] (DEFAULT) [address] [address] WBC (Bld) [#/Vol] 9.01 10*3/uL Normal 3.99-11.19 [facility] Comment on above: Performed By: #### T YPEC #### [facility] (DEFAULT) [address] [address] Erythrocyte distribution width (RBC) [Ratio] 13.3 % 10.8 - 14.9 % [facility] Hematocrit (Bld) [Volume fraction] 41.3 % 34.9 - 44.3 % [facility] Hemoglobin (Bld) [Mass/Vol] 12.8 g/dL 11.4 - 15.2 g/dL [facility] Interpretation and review of laboratory results Abnormal [facility] MCH (RBC) [Entitic mass] 28.6 pg 25.9 - 33.9 pg [facility] MCHC (RBC) [Mass/Vol] 31.0 g/dL Low 31.4 - 35.9 g/dL [facility] MCV (RBC) [Entitic vol] 92.2 fL 79.6 - 97.7 fL [facility] Platelet mean volume (Bld) [Entitic vol] 12.1 fL 8.5 - 12.2 fL [facility] Platelets (Bld) [#/Vol] 150 10*3/uL 150 - 393 K/uL [facility] RBC (Bld) [#/Vol] 4.48 10*6/uL [facility] WBC (Bld) [#/Vol] 9.01 10*3/uL 3.99 - 11. 19 K/uL [facility] CHEM 7 (LYTES,BUN,CREA,GLUC) on 04-01-2023 Anion gap [Moles/Vol] 14 mmol/L Normal 7-17 [facility] Comment on above: Performed By: #### T YPEC #### [facility] (DEFAULT) [address] [place] [address] Chloride [Moles/Vol] 103 mmol/L Normal 98-108 [facility] Comment on above: Performed By: #### T YPEC #### [facility] (DEFAULT) [address] [place] [address] CO2 [Moles/Vol] 26 mmol/L Normal 21-31 [facility] Comment on above: Performed By: #### T YPEC #### [facility] (DEFAULT) [address] [place] [address] Creatinine [Mass/Vol] 0.61 mg/dL Normal 0.50-1.20 [facility] Comment on above: Performed By: #### T YPEC #### [facility] (DEFAULT) [address] [place] [address] eGFR, CKD-EPI, Female > Normal >=60 [facility] Comment on above: Result Comment: Repo rted eGFR is based on the CKD-EPI 2020 equation using creatinine, age, and sex. Performed By: #### T YPEC #### [facility] (DEFAULT) [address] [place] [address] Glucose [Mass/Vol] 99 mg/dL Normal 70-99 [facility] Comment on above: Performed By: #### T YPEC #### [facility] (DEFAULT) [address] [place] [address] Osmolality [Osmolality] 288 mosm/kg Normal 278-305 [facility] Comment on above: Performed By: #### T YPEC #### [facility] (DEFAULT) [address] [place] [address] Potassium [Moles/Vol] 3.5 mmol/L Normal 3.5-5.0 [facility] Comment on above: Performed By: #### T YPEC #### [facility] (DEFAULT) [address] [place] [address] Sodium [Moles/Vol] 139 mmol/L Normal 135-145 [facility] Comment on above: Performed By: #### T YPEC #### [facility] (DEFAULT) [address] [place] [address] Urea nitrogen [Mass/Vol] 8 mg/dL Normal 7-25 [facility] Comment on above: Performed By: #### T YPEC #### [facility] (DEFAULT) [address] [place] [address] Urea nitrogen/Creatinine [Mass ratio] 13 mg/mg Normal [facility] Comment on above: Performed By: #### T YPEC #### [facility] (DEFAULT) [address] [place] [address] Anion gap [Moles/Vol] 14 mmol/L 7 - 17 mmol/L [facility] Chloride [Moles/Vol] 103 mmol/L 98 - 10 8 mmol/L [facility] CO2 [Moles/Vol] 26 mmol/L 21 - 31 mmol/L [facility] Creatinine [Mass/Vol] 0.61 mg/dL 0.50 - 1.20 mg/dL [facility] eGFR, CKD-EPI, Female - PINF [facility] Comment on above: Reported eGFR is bas ed on the CKD-EPI 2020 equation using creatinine, age, and sex. Glucose [Mass/Vol] 99 mg/dL 70 - 99 mg/dL [facility] Osmolality Calc [Osmolality] 288 [facility] Potassium [Moles/Vol] 3.5 mmol/L 3.5 - 5.0 mmol/L [facility] Sodium [Moles/Vol] 139 mmol/L 135 - 145 mmol/L [facility] Urea nitrogen [Mass/Vol] 8 mg/dL 7 - 25 mg/dL [facility] Urea nitrogen/Creatinine [Mass ratio] 13 mg/mg [facility] EEG [employer]INTAINER MONITORINGon 0 04-01-2023 Abdulaziz Cruz MD 04/01/2023 9:05 AM STUDY NAME: Continuous video-EEG recording START OF RECORDIN03/30/2023@16:02 Start of Review: 03/31/2023@12:00 End of Review: 04/01/2023@ 09:00 HISTORY: 37yoF admitted on 03/30/2023 with status epilepticus. cEEG obtained to monitor for ongoing seizures and treatment response. MEDICATIONS AT START: [START ON 03/31/2023] chlorhexidine 15 mL Mouth/Throat Q12H esomeprazole 40 mg Per NG tube Daily Gabapentin 400 mg Per NG tube Q8H Insulin regular Subcutaneous Q6H levETIRAcetam 1,500 mg Intravenous Q12HNS [START ON 03/31/2023] PHENobarbital 32.4 mg Per NG tube Daily PHENobarbital 48.6 mg Per NG tube Q24H Senna 8.6 mg Oral Daily Or Senna 8.6 mg Per NG tube Daily [START ON 03/31/2023] Sertraline 125 mg Per NG tube Daily Sodium chloride 0.9% w/potassium cl TECHNICAL DESCRIPTION: This is a 21-channel digital EEG recording with time-locked video and single-channel electrocardiogram. Electrodes are placed according to the 10 to 20 International System. The patient was monitored continuously by EEG technicians with EEG reviewed intermittently and annotations made to the EEG record every two hours. Portions of this record are reviewed using bandpass filters of 1 to 70 Hz and sensitivity of 7mV/mm. DESCRIPTION: Clinical State: intubated INTERICTAL: Background: continuous, asymmetric, no PDR, absent AP gradient Superimposed Frequencies: excess beta, alpha , delta/theta Voltage: >20V Reactivity: -03/30/2023@1643(CYSTE): no EEG/clinical reactivity State Change: present without N2 ; quiet state with diffuse decrease in amplitude and fast activity Focal Asymmetry: continuous R hemispheric polymorphic delta slowing Rhythmic or Periodic Patterns: occasional 0.5-1.0Hz SI-LRDA over R hemisphere (not qualifying for ESz nor IIC) Sporadic ED's: frequent R temporal sharp/spike-waves maximal at T8/F8>P8 with broad field Brief Rhythmic Discharges: none EKG: NSR ICTAL / EVENTS: Seizure: none Other Clinical Events: none Activation Procedures Hyperventilation: N/A Photic stimulation: N/A Summary of EEG and Behavior: Diffuse slowing/disorganization R hemispheric slowing Excess beta Frequent R temporal IEDs Occasional 0.5-1.0Hz SI-LRDA (not qualifying for ESz nor IIC) No EKG abnormality Clinical Correlation: This 2 day cEEG was abnormal. The findings were consistent with: 1) Nonspecific moderate diffuse encephalopathy, in part due to medication effect 2) R hemispheric structural or physiologic abnormality 3) R temporal cortical irritation and risk for focal onset seizures Kaushal Cruz MD, MSBME [employer] Department of Neurology - Epilepsy Division [facility] GLUCOSE POCon 04-01-2023 Glucose [Mass/Vol] 102 mg/dL High 70 - 99 mg/dL [facility] Interpretation and review of laboratory results Abnormal [facility] POC Sample Type CAPBL [facility] Test performed at ad dress of the patient encounter. [facility] Glucose [Mass/Vol] 100 mg/dL High 70 - 99 mg/dL [facility] Glucose [Mass/Vol] 105 mg/dL High 70 - 99 mg/dL [facility] Glucose [Mass/Vol] 103 mg/dL High 70 - 99 mg/dL [facility] Glucose [Mass/Vol] 97 mg/dL 70 - 99 mg/dL [facility] Interpretation and review of laboratory results Abnormal [facility] POC Sample Type CAPBL [facility] POC Sample Type VENO [facility] IONIZED CALCIUM, WHOLE BLOOD on 04-01-2023 ICA 4.33 mg/dL Low 4.60-5.30 [facility] Comment on above: Performed By: #### G AS5L #### [facility] (DEFAULT) [address] [address] IONIZED CALCIUM, WHOLE BLOOD Ordered By: Kyle Baarjas on 04-01-2023 Calcium.ionized (Bld) [Moles/Vol] 4.33 mg/dL Low 4.60 - 5.30 mg/dL [facility] Interpretation and review of laboratory results Abnormal [facility] MAGNESIUMon 04-01-2023 Magnesium [Mass/Vol] 1.9 mg/dL Normal 1.6-2.6 [facility] Comment on above: Performed By: #### T YPEC #### [facility] (DEFAULT) [address] [address] Magnesium [Mass/Vol] 1.9 mg/dL 1.6 - 2 .6 mg/dL [facility] No Panel Informationon 04-01 Interpretation and review of laboratory results Abnormal [facility] POC Sample Type CAPBL [facility] Test performed at ad dress of the patient encounter. [facility] Interpretation and review of laboratory results Normal [facility] Test performed at ad dress of the patient encounter. [facility] PHENOBARBITAL LEVEL, TROUGH (PRE DRUG LEVEL)on 04-01-2023 PHENobarbital [Mass/Vol] 11.0 ug/mL Low Therapeutic Range: 15.0-40.0 mcg/mL [facility] Comment on above: Order Comment: Pleas e draw level at specified interval PRIOR to dose. Performed By: #### U HCG #### [facility] (DEFAULT) [address] [place] [address] Interpretation and review of laboratory results Abnormal [facility] PHENobarbital [Mass/Vol] 11.0 ug/mL Low [facility] PHOSPHATE, INORGANICon 04-01 Phosphorous 3.4 mg/dL Normal 2.2-4.6 [facility] Comment on above: Performed By: #### T YPEC #### [facility] (DEFAULT) [address] [place] [address] Phosphate [Mass/Vol] 3.4 mg/dL 2.2 - 4 .6 mg/dL [facility] CBC,PLATELETSon 03-31-2023 Hematocrit (Bld) [Volume fraction] 39.4 % Normal 34.9-44.3 [facility] Comment on above: Performed By: #### P LAT, HEMOGC ####[facility] (DEFAULT)[address] [place] [address] Hemoglobin (Bld) [Mass/Vol] 12.6 g/dL Normal 11.4-15.2 [facility] Comment on above: Performed By: #### P LAT, HEMOGC ####[facility] (DEFAULT)[address] [place] [address] MCV (RBC) [Entitic vol] 90.8 fL Normal 79.6-97.7 [facility] Comment on above: Performed By: #### P LAT, HEMOGC ####[facility] (DEFAULT)[address] [place] [address] Mean Cell Hgb 29.0 pg Normal 25.9-33.9 [facility] Comment on above: Performed By: #### P LAT, HEMOGC ####[facility] (DEFAULT)[address] [facility] [address] Mean Cell Hgb Conc 32.0 g/dL Normal 31.4-35.9 [facility] Comment on above: Performed By: #### P LAT, HEMOGC ####[facility] (DEFAULT)[address] [facility] [place] [address] Platelet mean volume (Bld) [Entitic vol] 11.5 fL Normal 8.5-12.2 [facility] Comment on above: Performed By: #### P LAT, HEMOGC ####[facility] (DEFAULT)[address] [place] [address] Platelets (Bld) [#/Vol] 161 10*3/uL Normal 150-393 [facility] Comment on above: Performed By: #### P LAT, HEMOGC ####[facility] (DEFAULT)[address] [place] [address] RBC (Bld) [#/Vol] 4.34 10*6/uL Normal 3.91-5.04 [facility] Comment on above: Performed By: #### P LAT, HEMOGC ####[facility] (DEFAULT)[address] [place] [address] RBC Distribution 13.6 % Normal 10.8-14.9 [facility] Comment on above: Performed By: #### P LAT, HEMOGC ####[facility] (DEFAULT)[address] [place] [address] WBC (Bld) [#/Vol] 7.50 10*3/uL Normal 3.99-11.19 [facility] Comment on above: Performed By: #### P LAT, HEMOGC ####[facility] (DEFAULT)[address] [place] [address] Erythrocyte distribution width (RBC) [Ratio] 13.6 % 10.8 - 14.9 % [facility] Hematocrit (Bld) [Volume fraction] 39.4 % 34.9 - 44.3 % [facility] Hemoglobin (Bld) [Mass/Vol] 12.6 g/dL 11.4 - 15.2 g/dL [facility] Interpretation and review of laboratory results Normal [facility] MCH (RBC) [Entitic mass] 29.0 pg 25.9 - 33.9 pg [facility] MCHC (RBC) [Mass/Vol] 32.0 g/dL 31.4 - 35.9 g/dL [facility] MCV (RBC) [Entitic vol] 90.8 fL 79.6 - 97.7 fL [facility] Platelet mean volume (Bld) [Entitic vol] 11.5 fL 8.5 - 12.2 fL [facility] Platelets (Bld) [#/Vol] 161 10*3/uL 150 - 393 K/uL [facility] RBC (Bld) [#/Vol] 4.34 10*6/uL [facility] WBC (Bld) [#/Vol] 7.50 10*3/uL 3.99 - 11. 19 K/uL [facility] CHEM 7 (LYTES,BUN,CREA,GLUC) on 03-31-2023 Anion gap [Moles/Vol] 13 mmol/L Normal 7-17 [facility] Comment on above: Performed By: #### S CRSB #### [facility] (DEFAULT) [address] [place] [address] Chloride [Moles/Vol] 105 mmol/L Normal 98-108 [facility] Comment on above: Performed By: #### S CRSB #### [facility] (DEFAULT) [address] [place] [address] CO2 [Moles/Vol] 25 mmol/L Normal 21-31 [facility] Comment on above: Performed By: #### S CRSB #### [facility] (DEFAULT) [address] [place] [address] Creatinine [Mass/Vol] 0.67 mg/dL Normal 0.50-1.20 [facility] Comment on above: Performed By: #### S CRSB #### [facility] (DEFAULT) [address] [place] [address] eGFR, CKD-EPI, Female > Normal >=60 [facility] Comment on above: Result Comment: Repo rted eGFR is based on the CKD-EPI 2020 equation using creatinine, age, and sex. Performed By: #### S CRSB #### [facility] (DEFAULT) [address] [place] [address] Glucose [Mass/Vol] 79 mg/dL Normal 70-99 [facility] Comment on above: Performed By: #### S CRSB #### [facility] (DEFAULT) [address] [place] [address] Osmolality [Osmolality] 287 mosm/kg Normal 278-305 [facility] Comment on above: Performed By: #### S CRSB #### [facility] (DEFAULT) [address] [place] [address] Potassium [Moles/Vol] 3.6 mmol/L Normal 3.5-5.0 [facility] Comment on above: Performed By: #### S CRSB #### [facility] (DEFAULT) [address] [place] [address] Sodium [Moles/Vol] 139 mmol/L Normal 135-145 [facility] Comment on above: Performed By: #### S CRSB #### [facility] (DEFAULT) [address] [address] Urea nitrogen [Mass/Vol] 8 mg/dL Normal 7-25 [facility] Comment on above: Performed By: #### S CRSB #### [facility] (DEFAULT) [address] [address] Urea nitrogen/Creatinine [Mass ratio] 12 mg/mg Normal [facility] Comment on above: Performed By: #### S CRSB #### [facility] (DEFAULT) [address] [address] CHEM 7 (LYTES,BUN,CREA,GLUC) Ordered By: Josep Griffin on 03-31-2023 Anion gap [Moles/Vol] 13 mmol/L 7 - 17 mmol/L [facility] Chloride [Moles/Vol] 105 mmol/L 98 - 10 8 mmol/L [facility] CO2 [Moles/Vol] 25 mmol/L 21 - 31 mmol/L [facility] Creatinine [Mass/Vol] 0.67 mg/dL 0.50 - 1.20 mg/dL [facility] eGFR, CKD-EPI, Female - PINF [facility] Comment on above: Reported eGFR is bas ed on the CKD-EPI 2020 equation using creatinine, age, and sex. Glucose [Mass/Vol] 79 mg/dL 70 - 99 mg/dL [facility] Osmolality Calc [Osmolality] 287 [facility] Potassium [Moles/Vol] 3.6 mmol/L 3.5 - 5.0 mmol/L [facility] Sodium [Moles/Vol] 139 mmol/L 135 - 145 mmol/L [facility] Urea nitrogen [Mass/Vol] 8 mg/dL 7 - 25 mg/dL [facility] Urea nitrogen/Creatinine [Mass ratio] 12 mg/mg [facility] EEG FCI MONITORINGon 0 03-31-2023 Torrey Heller MD - 03/31/2023 12:36 PM EST STUDY NAME: Continuous video-EEG recording REFERRING PHYSICIAN: BENTLEY Paniagua DATE AND TIME START OF RECORDIN03/30/2023@1602 DATE AND TIME END OF RECORDIN03/31/2023@1200 (ongoing study) HISTORY: 37yoF admitted on 03/30/2023 with status epilepticus. cEEG obtained to monitor for ongoing seizures and treatment response. MEDICATIONS AT START: [START ON 03/31/2023] chlorhexidine 15 mL Mouth/Throat Q12H esomeprazole 40 mg Per NG tube Daily Gabapentin 400 mg Per NG tube Q8H Insulin regular Subcutaneous Q6H levETIRAcetam 1,500 mg Intravenous Q12HNS [START ON 03/31/2023] PHENobarbital 32.4 mg Per NG tube Daily PHENobarbital 48.6 mg Per NG tube Q24H Senna 8.6 mg Oral Daily Or Senna 8.6 mg Per NG tube Daily [START ON 03/31/2023] Sertraline 125 mg Per NG tube Daily Sodium chloride 0.9% w/potassium cl TECHNICAL DESCRIPTION: This is a 21-channel digital EEG recording with time-locked video and single-channel electrocardiogram. Electrodes are placed according to the 10 to 20 International System. The patient was monitored continuously by EEG technicians with EEG reviewed intermittently and annotations made to the EEG record every two hours. Portions of this record are reviewed using bandpass filters of 1 to 70 Hz and sensitivity of 7mV/mm. DESCRIPTION: Clinical State: intubated INTERICTAL: Background: continuous, asymmetric, no PDR, absent AP gradient Superimposed Frequencies: excess beta, alpha , delta/theta Voltage: >20V Reactivity: -03/30/2023@1643(CYSTE): no EEG/clinical reactivity State Change: present without N2 ; quiet state with diffuse decrease in amplitude and fast activity Focal Asymmetry: continuous R hemispheric polymorphic delta slowing Rhythmic or Periodic Patterns: occasional 0.5-1.0Hz SI-LRDA over R hemisphere (not qualifying for ESz nor IIC) Sporadic ED's: frequent R temporal sharp/spike-waves maximal at T8/F8>P8 with broad field Brief Rhythmic Discharges: none EKG: NSR ICTAL / EVENTS: Seizure: none Other Clinical Events: none Activation Procedures Hyperventilation: N/A Photic stimulation: N/A -- Summary of EEG and Behavior: Diffuse slowing/disorganization R hemispheric slowing Excess beta Frequent R temporal IEDs Occasional 0.5-1.0Hz SI-LRDA (not qualifying for ESz nor IIC) No EKG abnormality Clinical Correlation: This 2 day cEEG was abnormal. The findings were consistent with: 1) Nonspecific moderate diffuse encephalopathy, in part due to medication effect 2) R hemispheric structural or physiologic abnormality 3) R temporal cortical irritation and risk for focal onset seizures This is an ongoing study. The report will be continued in a separate dictation. Torrey Heller MD EEG Attending Golf Instructor Department of Neurology, Epilepsy Division [facility] GLUCOSE POCon 03-31-2023 Glucose [Mass/Vol] 74 mg/dL 70 - 99 mg/dL [facility] Glucose [Mass/Vol] 96 mg/dL 70 - 99 mg/dL [facility] Glucose [Mass/Vol] 72 mg/dL 70 - 99 mg/dL [facility] POC Sample Type CAPBL [facility] Test performed at ad dress of the patient encounter. [facility] Glucose [Mass/Vol] 101 mg/dL High 70 - 99 mg/dL [facility] Glucose [Mass/Vol] 107 mg/dL High 70 - 99 mg/dL [facility] IONIZED CALCIUM, WHOLE BLOOD on 03-31-2023 ICA 3.55 mg/dL Low 4.60-5.30 [facility] Comment on above: Performed By: #### I CA ####[facility] (DEFAULT)[address] [place] [address] IONIZED CALCIUM, WHOLE BLOOD Ordered By: Jackie Ge on 03-31-2023 Calcium.ionized (Bld) [Moles/Vol] 3.55 mg/dL Low 4.60 - 5.30 mg/dL [facility] Interpretation and review of laboratory results Abnormal [facility] MAGNESIUMon 03-31-2023 Magnesium [Mass/Vol] 1.8 mg/dL Normal 1.6-2.6 [facility] Comment on above: Performed By: #### S CRSB #### [facility] (DEFAULT) [address] [place] [address] Magnesium [Mass/Vol] 1.8 mg/dL 1.6 - 2 .6 mg/dL [facility] No Panel Informationon 03-31 POC Sample Type CAPBL [facility] Test performed at ad dress of the patient encounter. [facility] Interpretation and review of laboratory results Normal [facility] Interpretation and review of laboratory results Abnormal [facility] POC Sample Type CAPBL [facility] Test performed at ad dress of the patient encounter. [facility] PHENOBARBITALon 03-31-2023 Phenobarbital, Serum 10 ug/mL Low 15-40 [facility] Comment on above: Result Comment: Dete ction Limit = 3 Performed By: #### P HENOR ####Performed for [facility] [place], [place] [address] PHOSPHATE, INORGANICon 03-31 Phosphorous 3.1 mg/dL Normal 2.2-4.6 [facility] Comment on above: Performed By: #### S CRSB #### [facility] (DEFAULT) [address] [place] [address] Phosphate [Mass/Vol] 3.1 mg/dL 2.2 - 4 .6 mg/dL [facility] PLATELET COUNTon 03-31-2023 Interpretation and review of laboratory results Normal [facility] Platelet mean volume (Bld) [Entitic vol] 11.5 fL 8.5 - 12.2 fL [facility] Platelets (Bld) [#/Vol] 161 10*3/uL 150 - 393 K/uL [facility] SCREEN: MRSA/MSSAOrdered By: Dusty Valdovinos on 03-31-2023 Interpretation and review of laboratory results Abnormal [facility] Methicillin Resistant S. Aureus By Pcr Negative Negative [facility] Staphylococcus Aureus By Pcr Positive Abnormal Negative [facility] This test was perfor med using a real time PCR assay. Results should be interpreted in conjunction with other clinical and laboratory findings. A positive result does not necessarily indicate the presence of viable organism. This test should not be used as a test of cure. For E-swab specimens, this test was developed and its performance characteristics determined by the Clinical Microbiology Laboratory at [facility]. It has not been cleared or approved by the FDA.The laboratory is regulated under CLIA as qualified to perform high-complexity testing. This test is used for clinical purposes. It should not be regarded as investigational or for research. [facility] XR ABDOMEN 1 VIEWon 03-31-19 24 XR ABDOMEN 1 VIEW EXAM: XR ABDOMEN 1 V IEW, 03/30/2023 23:36 PM COMPARISON: Same day CLINICAL INDICATIONS: dth placement FINDINGS: Tubes: None. Limited field of view radiograph of the upper abdomen was obtained to evaluate enteric tube positioning. The Dobbhoff is located with its tip in the proximal small bowel near the ligament of Treitz. Bowel gas pattern is non-obstructive. No gross free air. IMPRESSION: Postpyloric Dobbhoff position. Normal [facility] ABORH TYPE RECONFIRMATIONon 03-30-2023 ABO/RH(D) TYPE Positive Normal [facility] Comment on above: Performed By: #### T YPEC #### [facility] (DEFAULT) [address] [place] [address] ABO/RH(D) TYPE Positive [facility] ARTERIAL BLOOD GAS PLUS LACT ATEon 03-30-2023 Base Excess 1.6 mmol/L Normal -3.0-3.0 [facility] Comment on above: Performed By: #### G AS5L #### [facility] (DEFAULT) [address] [place] [address] FIO2 40 % Normal [facility] Comment on above: Performed By: #### G AS5L #### [facility] (DEFAULT) [address] [place] [address] HCO3 (Bld) [Moles/Vol] 27 mmol/L Normal 22-28 [facility] Comment on above: Performed By: #### G AS5L #### [facility] (DEFAULT) [address] [place] [address] Lactate, Whole Blood 0.8 mmol/L Normal 0.5-1.6 [facility] Comment on above: Performed By: #### G AS5L #### [facility] (DEFAULT) [address] [place] [address] pCO2 44 mm Hg Normal 32-48 [facility] Comment on above: Performed By: #### G AS5L #### [facility] (DEFAULT) [address] [place] [address] PF Ratio 215 Normal [facility] Comment on above: Performed By: #### G AS5L #### [facility] (DEFAULT) [address] [place] [address] pH (Bld) 7.39 [pH] Normal 7.35-7.45 [facility] Comment on above: Performed By: #### G AS5L #### [facility] (DEFAULT) [address] [place] [address] pO2 86 mm Hg Normal 83-108 [facility] Comment on above: Performed By: #### G AS5L #### [facility] (DEFAULT) [address] [place] [address] sO2 98 % Normal 94-98 [facility] Comment on above: Performed By: #### G AS5L #### [facility] (DEFAULT) [address] [place] [address] Specimen type Nom (Spec) Arterial Normal [facility] Comment on above: Performed By: #### G AS5L #### [facility] (DEFAULT) [address] [place] [address] Base excess Calc (Bld) [Moles/Vol] 1.6 mmol/L -3.0 - 3.0 mmol/L [facility] CO2 (Bld) [Partial pressure] 44 mm[Hg] [facility] HCO3 (Bld) [Moles/Vol] 27 mmol/L 22 - 28 mmol/L [facility] Inhaled oxygen concentration 40 % [facility] Lactate [Moles/Vol] 0.8 mmol/L 0.5 - 1. 6 mmol/L [facility] Oxygen (Bld) [Partial pressure] 86 mm[Hg] [facility] Oxygen saturation in Blood 98 % 94 - 98 % [facility] PF Ratio 215 [facility] pH (Bld) 7.39 [pH] 7.35 - 7.45 [facility] Specimen source Nom (Unsp spec) Arterial [facility] BLOOD CULTUREon 03-30-2023 Bacteria identified Cx Nom (Unsp spec) NO GROWTH DAY [address] [facility] Comment on above: Order Comment: 2 Bot tles (1 Set - consists of 1 Aerobic bottle and 1 Anaerobic bottle) -1st Peripheral DrawFor syringe method draw:If able to obtain adequate sample (20 ml) inoculate anaerobic bottle firstIf inadequate sample obtained (less than 20 ml) inoculate aerobic bottle firstFor vacutainer method draw: Fill aerobic bottle first, then anaerobic Performed By: #### L [id number] #### [facility] (DEFAULT) [address] [place] [address] Order Comment: 2 Bot tles (1 Set - consists of 1 Aerobic bottle and 1 Anaerobic bottle) -1st Peripheral DrawFor syringe method draw:If able to obtain adequate sample (20 ml) inoculate anaerobic bottle firstIf inadequate sample obtained (less than 20 ml) inoculate aerobic bottle firstFor vacutainer method draw: Fill aerobic bottle first, then anaerobicResults may be compromised due to volume of BACT\ALERT bottle below 8mLs. The optimal blood volume is 8-10 mls per aerobic/anaerobic blood culture bottle CALCIUMon 03-30-2023 Calcium [Mass/Vol] 8.5 mg/dL Low 8.6-10.5 [facility] Comment on above: Performed By: #### C A, MGO, CHM7, HFP, IPB, CKB #### [facility] (DEFAULT) [address] [address] Calcium [Mass/Vol] 8.5 mg/dL Low 8.6 - 10. 5 mg/dL [facility] Interpretation and review of laboratory results Abnormal [facility] CBC AND ELECTRONIC DIFFon Abs Baso Auto < Normal 0.00-0.15 [facility] Comment on above: Performed By: #### L [id number] #### [facility] (DEFAULT) [address] [address] Basophils/100 WBC (Bld) 0.2 % Normal [facility] Comment on above: Performed By: #### L AB980 #### [facility] (DEFAULT) [address] [address] DIFF STATUS Electronic Differential Normal [facility] Comment on above: Performed By: #### L AB980 #### [facility] (DEFAULT) [address] [address] Eosinophils (Bld) [#/Vol] 0.04 10*3/uL Normal 0.00-0.42 [facility] Comment on above: Performed By: #### L AB980 #### [facility] (DEFAULT) [address] [address] Eosinophils/100 WBC (Bld) 0.5 % Normal [facility] Comment on above: Performed By: #### L AB980 #### [facility] (DEFAULT) [address] [place] [address] Hematocrit (Bld) [Volume fraction] 42.0 % Normal 34.9-44.3 [facility] Comment on above: Performed By: #### L AB980 #### [facility] (DEFAULT) [address] [address] Hemoglobin (Bld) [Mass/Vol] 12.8 g/dL Normal 11.4-15.2 [facility] Comment on above: Performed By: #### L AB980 #### [facility] (DEFAULT) [address] [address] Immature Grans % 0.4 % Normal [facility] Comment on above: Performed By: #### L AB980 #### [facility] (DEFAULT) [address] [address] Immature Grans Absolute < Normal <=0.08 [facility] Comment on above: Performed By: #### L AB980 #### [facility] (DEFAULT) [address] [address] Lymphocytes (Bld) [#/Vol] 1.33 10*3/uL Normal 1.16-3.51 [facility] Comment on above: Performed By: #### L AB980 #### [facility] (DEFAULT) [address] [address] Lymphocytes/100 WBC (Bld) 15.6 % Normal [facility] Comment on above: Performed By: #### L AB980 #### [facility] (DEFAULT) [address] [address] MCV (RBC) [Entitic vol] 94.2 fL Normal 79.6-97.7 [facility] Comment on above: Performed By: #### L AB980 #### [facility] (DEFAULT) [address] [address] Mean Cell Hgb 28.7 pg Normal 25.9-33.9 [facility] Comment on above: Performed By: #### L AB980 #### [facility] (DEFAULT) [address] [place] [address] Mean Cell Hgb Conc 30.5 g/dL Low 31.4-35.9 [facility] Comment on above: Performed By: #### L AB980 #### [facility] (DEFAULT) [address] [address] Monocytes (Bld) [#/Vol] 0.82 10*3/uL Normal 0.22-0.87 [facility] Comment on above: Performed By: #### L AB980 #### [facility] (DEFAULT) [address] [address] Monocytes/100 WBC (Bld) 9.6 % Normal [facility] Comment on above: Performed By: #### L AB980 #### [facility] (DEFAULT) [address] [address] Nucleated RBC 0.0 /100 WBC Normal <=0.2 [facility] Comment on above: Performed By: #### L AB980 #### [facility] (DEFAULT) [address] [address] Platelet mean volume (Bld) [Entitic vol] 12.1 fL Normal 8.5-12.2 [facility] Comment on above: Performed By: #### L AB980 #### [facility] (DEFAULT) [address] [address] Platelets (Bld) [#/Vol] 145 10*3/uL Low 150-393 [facility] Comment on above: Performed By: #### L AB980 #### [facility] (DEFAULT) [address] [address] RBC (Bld) [#/Vol] 4.46 10*6/uL Normal 3.91-5.04 [facility] Comment on above: Performed By: #### L AB980 #### [facility] (DEFAULT) [address] [address] RBC Distribution 13.7 % Normal 10.8-14.9 [facility] Comment on above: Performed By: #### L AB980 #### [facility] (DEFAULT) [address] [place] [address] Segs + Bands Auto 73.7 % Normal [facility] Comment on above: Performed By: #### L AB980 #### [facility] (DEFAULT) [address] [place] [address] Segs + Bands,Absolute Auto 6.31 K/uL Normal 1.64-7.28 [facility] Comment on above: Performed By: #### L AB980 #### [facility] (DEFAULT) [address] [place] [address] WBC (Bld) [#/Vol] 8.55 10*3/uL Normal 3.99-11.19 [facility] Comment on above: Performed By: #### L AB980 #### [facility] (DEFAULT) [address] [place] [address] Basophils (Bld) [#/Vol] K/uL 0.00 - 0.15 K/uL [facility] Basophils/100 WBC (Bld) 0.2 % [facility] Differential cell count method Nom (Bld) Electronic Differential [facility] Eosinophils (Bld) [#/Vol] 0.04 10*3/uL 0.00 - 0.42 K/uL [facility] Eosinophils/100 WBC (Bld) 0.5 % [facility] Erythrocyte distribution width (RBC) [Ratio] 13.7 % 10.8 - 14.9 % [facility] Hematocrit (Bld) [Volume fraction] 42.0 % 34.9 - 44.3 % [facility] Hemoglobin (Bld) [Mass/Vol] 12.8 g/dL 11.4 - 15.2 g/dL [facility] Immature granulocytes (Bld) [#/Vol] K/uL NINF - 0.08 K/uL [facility] Immature granulocytes/100 WBC (Bld) 0.4 % [facility] Interpretation and review of laboratory results Abnormal [facility] Lymphocytes (Bld) [#/Vol] 1.33 10*3/uL 1.16 - 3.51 K/uL [facility] Lymphocytes/100 WBC (Bld) 15.6 % [facility] MCH (RBC) [Entitic mass] 28.7 pg 25.9 - 33.9 pg [facility] MCHC (RBC) [Mass/Vol] 30.5 g/dL Low 31.4 - 35.9 g/dL [facility] MCV (RBC) [Entitic vol] 94.2 fL 79.6 - 97.7 fL [facility] Monocytes (Bld) [#/Vol] 0.82 10*3/uL 0.22 - 0.87 K/uL [facility] Monocytes/100 WBC (Bld) 9.6 % [facility] Neutrophils (Bld) [#/Vol] 6.31 10*3/uL 1.64 - 7.28 K/uL [facility] Nucleated RBC/100 WBC (Bld) [Ratio] 0.0 % [facility] Platelet mean volume (Bld) [Entitic vol] 12.1 fL 8.5 - 12.2 fL [facility] Platelets (Bld) [#/Vol] 145 10*3/uL Low 150 - 393 K/uL [facility] RBC (Bld) [#/Vol] 4.46 10*6/uL [facility] Segmented neutrophils/100 WBC (Bld) 73.7 % [facility] WBC (Bld) [#/Vol] 8.55 10*3/uL 3.99 - 11. 19 K/uL [facility] CBC W Auto Differential pane l (Bld)on 03-30-2023 Basophils (Bld) [#/Vol] 0.03 10*3/uL Normal <=0.70 [facility] Comment on above: Performed By: #### 5 7021-8 ####[facility] Director - Eneidaarnie CrossrellCLIA [id number] Basophils/100 WBC (Bld) 0.3 % Normal <=2.0 [facility] Comment on above: Performed By: #### 5 7021-8 ####[facility] Director - Eneida TayrellCLIA [id number] Eosinophils (Bld) [#/Vol] 0.04 10*3/uL Normal <=0.70 [facility] Comment on above: Performed By: #### 5 7021-8 ####[place] [address] Director - Eneidaarnie FrancoCLIA [id number] Eosinophils/100 WBC (Bld) 0.4 % Normal <=10.0 [facility] Comment on above: Performed By: #### 5 7021-8 ####[facility] Director - Eneida TayrellCLIA [id number] Erythrocyte distribution width (RBC) [Entitic vol] 44.8 fL Normal 36.4-46.3 [facility] Comment on above: Performed By: #### 5 7021-8 ####[facility] Director - Eneidaarnie CrossrellCLIA [id number] Hematocrit (Bld) [Volume fraction] 36.9 % Low 37.0-47.0 [facility] Comment on above: Performed By: #### 5 7021-8 ####[facility] Director - Eneida TayrellCLIA [id number] Hemoglobin (Bld) [Mass/Vol] 12.3 g/dL Normal 12.0-16.0 [facility] Comment on above: Performed By: #### 5 7021-8 ####[facility] Director - Eneida TayrellCLIA [id number] Immature granulocytes (Bld) [#/Vol] 0.03 10*3/uL Normal <=0.10 [facility] Comment on above: Performed By: #### 5 7021-8 ####[facility] Director - Eneida FarrellCLIA [id number] Immature granulocytes/100 WBC (Bld) 0.30 % Normal <=1.50 [facility] Comment on above: Performed By: #### 5 7021-8 ####[facility] Director - Eneida TayrellCLIA [id number] Lymphocytes (Bld) [#/Vol] 1.70 10*3/uL Normal 1.20-3.40 [facility] Comment on above: Performed By: #### 5 7021-8 ####[place] [address] Director - Eneida TayrellCLIA [id number] Lymphocytes/100 WBC (Bld) 16.3 % Low 20.0-40.0 [facility] Comment on above: Performed By: #### 5 7021-8 ####[facility] Director - Eneida TayrellCLIA [id number] MCH (RBC) [Entitic mass] 30.0 pg Normal 27.0-31.0 [facility] Comment on above: Performed By: #### 5 7021-8 ####[facility] Director - Eneida TayrellCLIA [id number] MCHC (RBC) [Mass/Vol] 33.3 g/dL Normal 32.0-36.0 [facility] Comment on above: Performed By: #### 5 7021-8 ####[facility] Director - Eneida TayrellCLIA [id number] MCV (RBC) [Entitic vol] 90.0 fL Normal 80.0-100.0 [facility] Comment on above: Performed By: #### 5 7021-8 ####[place] [address] Director - Eneida FarrellCLIA [id number] Monocytes (Bld) [#/Vol] 0.94 10*3/uL High 0.10-0.60 [facility] Comment on above: Performed By: #### 5 7021-8 ####[facility] Director - Eneida FarrellCLIA [id number] Monocytes/100 WBC (Bld) 9.0 % High <=8.0 [facility] Comment on above: Performed By: #### 5 7021-8 ####[address] Director - Eneida FarrellCLIA [id number] Neutrophils (Bld) [#/Vol] 7.67 10*3/uL High 1.40-6.50 [facility] Comment on above: Performed By: #### 5 7021-8 ####[facility] Director - Eneida FarrellCLIA [id number] Neutrophils/100 WBC (Bld) 73.7 % High 50.0-70.0 [facility] Comment on above: Performed By: #### 5 7021-8 ####[facility] Director - Eneida FarrellCLIA [id number] Nucleated RBC (Bld) [#/Vol] 0.00 10*3/uL Normal <=0.10 [facility] Comment on above: Performed By: #### 5 7021-8 ####[facility] Director - Eneida FarrellCLIA [id number] Platelet mean volume (Bld) [Entitic vol] 11.5 fL Normal 9.0-13.0 [facility] Comment on above: Performed By: #### 5 7021-8 ####[place] [address] Director - Eneida Pearson [id number] Platelets (Bld) [#/Vol] 156 10*3/uL Normal 130-400 [facility] Comment on above: Performed By: #### 5 7021-8 ####[place] [address] Director - Eneida Pearson [id number] RBC (Bld) [#/Vol] 4.10 10*6/uL Normal 4.00-6.30 [facility] Comment on above: Performed By: #### 5 7021-8 ####[place] [address] Director - Eneida Pearson [id number] WBC (Bld) [#/Vol] 10.41 10*3/uL Normal 4.80-10.80 [facility] Comment on above: Performed By: #### 5 7021-8 ####[place] [address] Director - Eneida Pearson [id number] CHEM 7 (LYTES,BUN,CREA,GLUC) on 03-30-2023 Anion gap [Moles/Vol] 12 mmol/L Normal 7-17 [facility] Comment on above: Performed By: #### T YPEC #### [facility] (DEFAULT) [address] [address] Chloride [Moles/Vol] 102 mmol/L Normal 98-108 [facility] Comment on above: Performed By: #### T YPEC #### [facility] (DEFAULT) [address] [place] [address] CO2 [Moles/Vol] 25 mmol/L Normal 21-31 [facility] Comment on above: Performed By: #### T YPEC #### [facility] (DEFAULT) [address] [place] [address] Creatinine [Mass/Vol] 0.82 mg/dL Normal 0.50-1.20 [facility] Comment on above: Performed By: #### T YPEC #### [facility] (DEFAULT) [address] [place] [address] eGFR, CKD-EPI, Female > Normal >=60 [facility] Comment on above: Result Comment: Repo rted eGFR is based on the CKD-EPI 2020 equation using creatinine, age, and sex. Performed By: #### T YPEC #### [facility] (DEFAULT) [address] [place] [address] Glucose [Mass/Vol] 94 mg/dL Normal 70-99 [facility] Comment on above: Performed By: #### T YPEC #### [facility] (DEFAULT) [address] [place] [address] Osmolality [Osmolality] 282 mosm/kg Normal 278-305 [facility] Comment on above: Performed By: #### T YPEC #### [facility] (DEFAULT) [address] [place] [address] Potassium [Moles/Vol] 5.2 mmol/L High 3.5-5.0 [facility] Comment on above: Result Comment: Mode rate Hemolysis Performed By: #### T YPEC #### [facility] (DEFAULT) [address] [place] [address] Sodium [Moles/Vol] 134 mmol/L Low 135-145 [facility] Comment on above: Performed By: #### T YPEC #### [facility] (DEFAULT) [address] [place] [address] Urea nitrogen [Mass/Vol] 8 mg/dL Normal 7-25 [facility] Comment on above: Performed By: #### T YPEC #### [facility] (DEFAULT) [address] [place] [address] Urea nitrogen/Creatinine [Mass ratio] 10 mg/mg Normal [facility] Comment on above: Performed By: #### T YPEC #### [facility] (DEFAULT) [address] [place] [address] Anion gap [Moles/Vol] 12 mmol/L 7 - 17 mmol/L [facility] Chloride [Moles/Vol] 102 mmol/L 98 - 10 8 mmol/L [facility] CO2 [Moles/Vol] 25 mmol/L 21 - 31 mmol/L [facility] Creatinine [Mass/Vol] 0.82 mg/dL 0.50 - 1.20 mg/dL [facility] eGFR, CKD-EPI, Female - PINF [facility] Comment on above: Reported eGFR is bas ed on the CKD-EPI 2020 equation using creatinine, age, and sex. Glucose [Mass/Vol] 94 mg/dL 70 - 99 mg/dL [facility] Osmolality Calc [Osmolality] 282 [facility] Potassium [Moles/Vol] 5.2 mmol/L High 3.5 - 5.0 mmol/L [facility] Comment on above: Moderate Hemolysis Sodium [Moles/Vol] 134 mmol/L Low 135 - 145 mmol/L [facility] Urea nitrogen [Mass/Vol] 8 mg/dL 7 - 25 mg/dL [facility] Urea nitrogen/Creatinine [Mass ratio] 10 mg/mg [facility] CKon 03-30-2023 CK [Catalytic activity/Vol] 503 U/L Critically high 30-184 [facility] Comment on above: Result Comment: Mode rate Hemolysis Performed By: #### T YPEC #### [facility] (DEFAULT) [address] [place] [address] CKOrdered By: Twan archer 03-30-2023 CK [Catalytic activity/Vol] 503 U/L Critically high 30 - 184 U/L [facility] Comment on above: Moderate Hemolysis Interpretation and review of laboratory results Abnormal [facility] CT HEAD WITHOUT CONTRASTon 0 2-01-2024 CT HEAD WITHOUT CONTRAST EXAM: CT HEAD WITHOUT CONTRAST, 03/30/2023 2:26 PM COMPARISON: No priors available for comparison. CLINICAL INDICATIONS: 37 years Female evaluation of structural cause of seizures; TECHNIQUE: A series of transaxial computerized tomographic images are obtained from base of skull to vertex without intravenous contrast. Axial whole-head and thin section posterior fossa slices are provided. Reformats: Sagittal and coronal. FINDINGS: There is asymmetric volume loss in the left cerebral hemisphere and subtly in the left cerebellar hemisphere. There is mild asymmetric prominence of the sulci with prominent CSF space. There is slight increased prominence of the calvarium on the left most evident in the parietal region and there is asymmetric increased size of the left frontal sinus and this could be due to Sbpq-Abosyree-Teudpx syndrome, although the thickening is relatively subtle and other etiologies such as Donald encephalitis would be included in the differential. Consider further evaluation with MRI of the brain. Nolan-white matter differentiation is preserved. No acute large territory infarction is seen. No acute intracranial hemorrhage is seen. No significant mass effect or midline shift. Ventricles are normal in size and configuration for patient age. Skull appears intact. Visualized orbits appear normal. Scattered paranasal sinus opacification, probably related to intubation. Visualized mastoid air cells are clear. IMPRESSION: Asymmetric volume loss is noted in the left cerebral hemisphere and more subtly in the left cerebellar hemisphere. Differential considerations, as above. Normal [facility] CT Head WO contraston 2023 IMPRESSION: Asymmetric volume loss is noted in the left cerebral hemisphere and more subtly in the left cerebellar hemisphere. Differential considerations, as above. OLOGY EXAM: CT HEAD WITHOU T CONTRAST, 03/30/2023 2:26 PM COMPARISON: No priors available for comparison. CLINICAL INDICATIONS: 37 years Female evaluation of structural cause of seizures; TECHNIQUE: A series of transaxial computerized tomographic images are obtained from base of skull to vertex without intravenous contrast. Axial whole-head and thin section posterior fossa slices are provided. Reformats: Sagittal and coronal. FINDINGS: There is asymmetric volume loss in the left cerebral hemisphere and subtly in the left cerebellar hemisphere. There is mild asymmetric prominence of the sulci with prominent CSF space. There is slight increased prominence of the calvarium on the left most evident in the parietal region and there is asymmetric increased size of the left frontal sinus and this could be due to Inny-Yealojsr-Ledmdq syndrome, although the thickening is relatively subtle and other etiologies such as Donald encephalitis would be included in the differential. Consider further evaluation with MRI of the brain. Nolan-white matter differentiation is preserved. No acute large territory infarction is seen. No acute intracranial hemorrhage is seen. No significant mass effect or midline shift. Ventricles are normal in size and configuration for patient age. Skull appears intact. Visualized orbits appear normal. Scattered paranasal sinus opacification, probably related to intubation. Visualized mastoid air cells are clear. RADIOLOGY Eulaloi [place] MD - 03/30/2023 EXAM: CT HEAD WITHOUT CONTRAST, 03/30/2023 2:26 PM COMPARISON: No priors available for comparison. CLINICAL INDICATIONS: 37 years Female evaluation of structural cause of seizures; TECHNIQUE: A series of transaxial computerized tomographic images are obtained from base of skull to vertex without intravenous contrast. Axial whole-head and thin section posterior fossa slices are provided. Reformats: Sagittal and coronal. FINDINGS: There is asymmetric volume loss in the left cerebral hemisphere and subtly in the left cerebellar hemisphere. There is mild asymmetric prominence of the sulci with prominent CSF space. There is slight increased prominence of the calvarium on the left most evident in the parietal region and there is asymmetric increased size of the left frontal sinus and this could be due to Nuak-Eomqolnb-Skdvai syndrome, although the thickening is relatively subtle and other etiologies such as Donald encephalitis would be included in the differential. Consider further evaluation with MRI of the brain. Nolan-white matter differentiation is preserved. No acute large territory infarction is seen. No acute intracranial hemorrhage is seen. No significant mass effect or midline shift. Ventricles are normal in size and configuration for patient age. Skull appears intact. Visualized orbits appear normal. Scattered paranasal sinus opacification, probably related to intubation. Visualized mastoid air cells are clear. IMPRESSION IMPRESSION: Asymmetric volume loss is noted in the left cerebral hemisphere and more subtly in the left cerebellar hemisphere. Differential considerations, as above. [facility] Radiology Study observation (narrative) [facility] CT Head WO contrastOrdered B y: Eulalio [place] on 03-30-2023 [facility] Work Phone: Comprehensive metabolic 2000 panelon 03-30-2023 Albumin [Mass/Vol] 2.9 g/dL Low 3.4-5.0 [facility] Comment on above: Performed By: #### 1 9123-9, ####[facility] Director - Eneida Pearson [id number] ALP [Catalytic activity/Vol] 83 U/L Normal 50-136 [facility] Comment on above: Performed By: #### 1 9123-9, ####[facility] Director - Eneida Pearson [id number] ALT [Catalytic activity/Vol] 20 U/L Normal 14-59 [facility] Comment on above: Performed By: #### 1 9123-9, ####[facility] Director - Eneida Pearson [id number] Anion gap [Moles/Vol] 3.0 mmol/L Normal <=15.0 [facility] Comment on above: Performed By: #### 1 9123-9, ####[facility] Director - Eneida Pearson [id number] AST [Catalytic activity/Vol] 42 U/L High 15-37 [facility] Comment on above: Result Comment: Spec imen slightly hemolyzed. Test results may be affected. Performed By: #### 1 9123-9, ####[facility] Director - Eneida Pearson [id number] Bilirubin [Mass/Vol] 0.4 mg/dL Normal 0.2-1.0 [facility] Comment on above: Performed By: #### 1 9122-10, ####[facility], [place] [address]Hqenhuy Director - Eneida Pearson [id number] Calcium [Mass/Vol] 8.0 mg/dL Low 8.5-10.1 [facility] Comment on above: Performed By: #### 1 9122-10, ####[facility], [place] [address]Ilrtftu Director - Eneida Pearson [id number] Chloride [Moles/Vol] 107 mmol/L Normal 98-107 [facility] Comment on above: Performed By: #### 1 9122-10, ####[facility] Director - Eneida Pearson [id number] CO2 [Moles/Vol] 28 mmol/L Normal 21-32 [facility] Comment on above: Performed By: #### 1 9122-10, ####[facility], [place] [address]Exenjfb Director - Eneida Pearson [id number] Creatinine [Mass/Vol] 0.77 mg/dL Normal 0.51-0.95 [facility] Comment on above: Performed By: #### 1 9122-10, ####[facility], [place] [address]Bvwvtpm Director - Eneida Pearson [id number] GFR/1.73 sq M.predicted MDRD (S/P/Bld) [Vol rate/Area] mL/min/{1.73_m2} Normal >=59 [facility] Comment on above: Performed By: #### 1 9122-10, ####[facility] Director - Eneida Pearson [id number] Glucose [Mass/Vol] 100 mg/dL Normal 74-106 [facility] Comment on above: Performed By: #### 1 23, ####[facility] Director - Eneida Pearson [id number] HGFR GLOMERULAR FILTRATIO N RATE INTERPRETATION~The eGFR is calculated using the MDRD equation.~This equation has been validated in patients with chronic kidney disease;~however, it underestimates the GFR in healthy patients with GFR's over 60 mL/min.~The equation is not valid in children under the age of 18.~NOTE: Criteria for Chronic Kidney Disease:~ ~1. Kidney damage for at least three months, as defined~by structural or functional abnormalities of the kidney,~with or without decreased glomerular filtration rate, manifested by either:~* Pathological abnormalities or~* Markers of Kidney damage, including abnormalities in~the composition of the blood or urine or abnormalities in imaging tests.~ ~2. GFR <60 mL/min/1.73 m squared for at least three months, with or without kidney damage.~ Normal [facility] Comment on above: Performed By: #### 1 9122-10, ####[facility] Director - Eneida Pearson [id number] Potassium [Moles/Vol] 4.0 mmol/L Normal 3.5-5.1 [facility] Comment on above: Result Comment: Spec imen slightly hemolyzed. Test results may be affected. Performed By: #### 1 23, ####[facility] Director - Eneida Pearson [id number] Protein [Mass/Vol] 5.7 g/dL Low 6.4-8.2 [facility] Comment on above: Performed By: #### 1 9123-, ####[facility] Director - Eneida Pearson [id number] Sodium [Moles/Vol] 138 mmol/L Normal 136-145 [facility] Comment on above: Performed By: #### 1 9123-9, 13762-5 ####[facility], [place] [address]Zllijeq Director - Eneida Pearson [id number] Urea nitrogen [Mass/Vol] 9 mg/dL Normal 7-17 [facility] Comment on above: Performed By: #### 1 9123-9, 99870-7 ####[facility], [place] [address]Sasymwo Director - Eneida Pearson [id number] EXTRA MICROon 03-30-2023 [facility] HCG ( test) Ql (U)O rdered By: Ines Clarke on 03-30-2023 Beta HCG ( test) Ql Negative Negative [facility] Interpretation and review of laboratory results Normal [facility] HCG QUALITATIVE, URINEon Beta HCG ( test) Ql (U) Negative Normal Negative [facility] Comment on above: Performed By: #### U HCG #### [facility] (DEFAULT) [address] [address] HEPATIC FUNCTION PANELon Albumin [Mass/Vol] 3.6 g/dL Normal 3.5-5.0 [facility] Comment on above: Performed By: #### T YPEC #### [facility] (DEFAULT) [address] [address] ALP [Catalytic activity/Vol] 71 U/L Normal 32-126 [facility] Comment on above: Performed By: #### T YPEC #### [facility] (DEFAULT) [address] [address] ALT [Catalytic activity/Vol] 12 U/L Normal 9-48 [facility] Comment on above: Result Comment: Mode rate Hemolysis Performed By: #### T YPEC #### [facility] (DEFAULT) [address] [place] [address] AST [Catalytic activity/Vol] 40 U/L High 10-39 [facility] Comment on above: Result Comment: Mode rate Hemolysis Performed By: #### T YPEC #### [facility] (DEFAULT) [address] [place] [address] Bilirubin [Mass/Vol] 0.8 mg/dL Normal <1.5 [facility] Comment on above: Result Comment: Mode rate Hemolysis Performed By: #### T YPEC #### [facility] (DEFAULT) [address] [place] [address] Bilirubin.indirect [Mass/Vol] 0.1 mg/dL Normal <0.3 [facility] Comment on above: Result Comment: Mode rate Hemolysis Performed By: #### T YPEC #### [facility] (DEFAULT) [address] [place] [address] Protein [Mass/Vol] 6.3 g/dL Low 6.4-8.3 [facility] Comment on above: Performed By: #### T YPEC #### [facility] (DEFAULT) [address] [place] [address] Albumin [Mass/Vol] 3.6 g/dL 3.5 - 5.0 g/dL [facility] ALP [Catalytic activity/Vol] 71 U/L 32 - 126 U/L [facility] ALT [Catalytic activity/Vol] 12 U/L 9 - 48 U/L [facility] Comment on above: Moderate Hemolysis AST [Catalytic activity/Vol] 40 U/L High 10 - 39 U/L [facility] Comment on above: Moderate Hemolysis Bilirubin [Mass/Vol] 0.8 mg/dL NINF - 1.5 mg/dL [facility] Comment on above: Moderate Hemolysis Bilirubin.direct [Mass/Vol] 0.1 mg/dL NINF - 0.3 mg/dL [facility] Comment on above: Moderate Hemolysis Protein [Mass/Vol] 6.3 g/dL Low 6.4 - 8.3 g/dL [facility] LOWER RESPIRATORY CULTURE, B ACTERIALon 03-30-2023 Bacteria identified Cx Nom (Unsp spec) NO GROWTH DAY [address] [facility] Comment on above: Performed By: #### L AB980 #### [facility] (DEFAULT) [address] [place] [address] Microscopic observation Gram stain Nom (Unsp spec) Normal [facility] Comment on above: Result Comment: Neut rophils, Heavy Red Blood Cells Present No organisms seen Performed By: #### L AB980 #### [facility] (DEFAULT) [address] [place] [address] MAGNESIUMon 03-30-2023 Magnesium [Mass/Vol] 2.0 mg/dL Normal 1.6-2.6 [facility] Comment on above: Result Comment: Mode rate Hemolysis Performed By: #### T YPEC #### [facility] (DEFAULT) [address] [place] [address] Magnesium [Mass/Vol] 2.0 mg/dL 1.6 - 2 .6 mg/dL [facility] Comment on above: Moderate Hemolysis Magnesium [Mass/Vol] 2.1 mg/dL Normal 1.6-2.6 [facility] Comment on above: Result Comment: Spec imen slightly hemolyzed. Test results may be affected. Performed By: #### 1 9123-9, 53624-5 ####[facility], [place] [address]Cvuaeru Director - Eneida Pearson [id number] No Panel Informationon 03-30 Interpretation and review of laboratory results Abnormal [facility] Interpretation and review of laboratory results Normal [facility] PHOSPHATE, INORGANICon 03-30 Phosphorous 3.6 mg/dL Normal 2.2-4.6 [facility] Comment on above: Result Comment: Mode rate Hemolysis Performed By: #### T YPEC #### [facility] (DEFAULT) [address] [place] [address] Phosphate [Mass/Vol] 3.6 mg/dL 2.2 - 4 .6 mg/dL [facility] Comment on above: Moderate Hemolysis POTASSIUMon 03-30-2023 Potassium [Moles/Vol] 4.6 mmol/L Normal 3.5-5.0 [facility] Comment on above: Order Comment: If po tassium level is less than or equal to 3.0 mmol/L, recheck potassium 4 hours after replacement. Result Comment: Slig htly hemolyzed Performed By: #### K KO #### [facility] (DEFAULT) [address] [place] [address] Interpretation and review of laboratory results Normal [facility] Potassium [Moles/Vol] 4.6 mmol/L 3.5 - 5.0 mmol/L [facility] Comment on above: Slightly hemolyzed [facility] PREALBUMINon 03-30-2023 Prealbumin [Mass/Vol] 21 mg/dL Normal 17-34 [facility] Comment on above: Performed By: #### S CRSB #### [facility] (DEFAULT) [address] [place] [address] Prealbumin [Mass/Vol] 21 mg/dL 17 - 3 4 mg/dL [facility] PT,INR,PTTon 03-30-2023 aPTT Coag (Bld) [Time] 22.9 s Low 24.0-34.3 [facility] Comment on above: Result Comment: Spec imen integrity checked. Performed By: #### T YPEC #### [facility] (DEFAULT) [address] [place] [address] INR Coag (PPP) [Relative time] 1.0 {INR} Normal 0.9-1.1 [facility] Comment on above: Performed By: #### T YPEC #### [facility] (DEFAULT) [address] [place] [address] PT Coag (PPP) [Time] 13.1 s Normal 11.9-14.2 [facility] Comment on above: Performed By: #### T YPEC #### [facility] (DEFAULT) [address] [place] [address] PT,INR,PTTOrdered By: Darcy Oconnor on 03-30-2023 aPTT Coag (PPP) [Time] 22.9 s Low [facility] Comment on above: Specimen integrity c hecked. INR Coag (Bld) [Relative time] 1.0 {INR} 0.9 - 1.1 [facility] Interpretation and review of laboratory results Abnormal [facility] PT Coag (PPP) [Time] 13.1 s [facility] Portable XR Chest Viewson IMPRESSION: Life support devices in place. No acute process. OLOGY EXAM: XR CHEST 1 VIE W PORTABLE, 03/30/2023 12:55 PM COMPARISON: No prior studies available for comparison. CLINICAL INDICATIONS: ett placement RELEVANT CLINICAL HISTORY: FINDINGS: (Adequate technique) Implanted Devices: ET tube tip in the midtrachea, NG tube coiled in the stomach. Thorax: The lungs are clear. No pleural fluid. No mediastinal or hilar abnormality. RADIOLOGY Gali Agrawal MD - 03/30/2023 EXAM: XR CHEST 1 VIEW PORTABLE, 03/30/2023 12:55 PM COMPARISON: No prior studies available for comparison. CLINICAL INDICATIONS: ett placement RELEVANT CLINICAL HISTORY: FINDINGS: (Adequate technique) Implanted Devices: ET tube tip in the midtrachea, NG tube coiled in the stomach. Thorax: The lungs are clear. No pleural fluid. No mediastinal or hilar abnormality. IMPRESSION IMPRESSION: Life support devices in place. No acute process. [facility] Radiology Study observation (narrative) [facility] Portable XR Chest ViewsOrder ed By: Gali Agrawal on 03-30-2023 [facility] Work Phone: SCREEN: MRSA/MSSAon 03-30-19 24 Methicillin Resistant S. Aureus By Pcr Negative Normal Negative [facility] Comment on above: Order Comment: Colle ct with an ESWAB - Anterior Nares for MRSA + MSSA This test was performed using a real time PCR assay. Results should be interpreted in conjunction with other clinical and laboratory findings. A positive result does not necessarily indicate the presence of viable organism. This test should not be used as a test of cure. For E-swab specimens, this test was developed and its performance characteristics determined by the [facility] at [facility]. It has not been cleared or approved by the FDA.The laboratory is regulated under CLIA as qualified to perform high-complexity testing. This test is used for clinical purposes. It should not be regarded as investigational or for research. Performed By: #### S CRSB #### [facility] (DEFAULT) [address] [place] [address] Staphylococcus Aureus By Pcr Positive Abnormal Negative [facility] Comment on above: Order Comment: Colle ct with an ESWAB - Anterior Nares for MRSA + MSSA This test was performed using a real time PCR assay. Results should be interpreted in conjunction with other clinical and laboratory findings. A positive result does not necessarily indicate the presence of viable organism. This test should not be used as a test of cure. For E-swab specimens, this test was developed and its performance characteristics determined by the [facility] at [facility]. It has not been cleared or approved by the FDA.The laboratory is regulated under CLIA as qualified to perform high-complexity testing. This test is used for clinical purposes. It should not be regarded as investigational or for research. Performed By: #### S CRSB #### [facility] (DEFAULT) [address] [address] TROPONIN 1 HOURon 03-30-2023 1 Hour hs-Troponin 147 ng/L High <34 [facility] Comment on above: Order Comment: Colle ct with an ESWAB - Anterior Nares for MRSA + MSSA This test was performed using a real time PCR assay. Results should be interpreted in conjunction with other clinical and laboratory findings. A positive result does not necessarily indicate the presence of viable organism. This test should not be used as a test of cure. For E-swab specimens, this test was developed and its performance characteristics determined by the [facility] at [facility]. It has not been cleared or approved by the FDA.The laboratory is regulated under CLIA as qualified to perform high-complexity testing. This test is used for clinical purposes. It should not be regarded as investigational or for research. Result Comment: Sugg estive of myocardial injury Performed By: #### S CRSB #### [facility] (DEFAULT) [address] [address] Delta hs-Troponin I < Normal <=15 [facility] Comment on above: Order Comment: Colle ct with an ESWAB - Anterior Nares for MRSA + MSSA This test was performed using a real time PCR assay. Results should be interpreted in conjunction with other clinical and laboratory findings. A positive result does not necessarily indicate the presence of viable organism. This test should not be used as a test of cure. For E-swab specimens, this test was developed and its performance characteristics determined by the [facility] at [facility]. It has not been cleared or approved by the FDA.The laboratory is regulated under CLIA as qualified to perform high-complexity testing. This test is used for clinical purposes. It should not be regarded as investigational or for research. Performed By: #### S CRSB #### [facility] (DEFAULT) [address] [place] [address] Delta hs-Troponin I ng/L NINF - 1 5 ng/L [facility] Interpretation and review of laboratory results Abnormal [facility] Troponin I.cardiac High sensitivity method [Mass/Vol] 147 ng/L High NINF - 34 ng/L [facility] Comment on above: Suggestive of myocar dial injury [facility] TROPONIN HIGH SENSITIVITYon 03-30-2023 TNIH 301.70 pg/mL High <=59.00 [facility] Comment on above: Performed By: #### T ROP2 #### [facility] [address] [place] [address] Funeral Service Apprentice - Eneida LAMBMD [id number] TROPONIN I INITIALon 024 hs-Troponin I 150 ng/L High <34 [facility] Comment on above: Order Comment: Colle ct with an ESWAB - Anterior Nares for MRSA + MSSA This test was performed using a real time PCR assay. Results should be interpreted in conjunction with other clinical and laboratory findings. A positive result does not necessarily indicate the presence of viable organism. This test should not be used as a test of cure. For E-swab specimens, this test was developed and its performance characteristics determined by the [facility] at [facility]. It has not been cleared or approved by the FDA.The laboratory is regulated under CLIA as qualified to perform high-complexity testing. This test is used for clinical purposes. It should not be regarded as investigational or for research. Result Comment: Sugg estive of myocardial injury Performed By: #### S CRSB #### [facility] (DEFAULT) [address] [address] TROPONIN I INITIALOrdered By : Pedro Mayorga on 03-30-2023 Interpretation and review of laboratory results Abnormal [facility] Troponin I.cardiac High sensitivity method [Mass/Vol] 150 ng/L High NINF - 34 ng/L [facility] Comment on above: Suggestive of myocar dial injury [facility] TYPE AND SCREENon 03-30-2023 ABO/RH(D) TYPE Positive Normal [facility] Comment on above: Performed By: #### X M #### [facility] (DEFAULT) [address] [address] ABO/RH(D) TYPE Positive [facility] URINALYSIS REFLEX TO CULTURE PERFORMABLEon 03-30-2023 Appearance (U) Clear Normal Clear [facility] Comment on above: Order Comment: For i ndwelling catheters, specimen collection is acceptable on catheter day 1 and 2 only. ? Performed By: #### L AB980 #### [facility] (DEFAULT) [address] [address] Bacteria ABSENT Normal ABSENT [facility] Comment on above: Order Comment: For i ndwelling catheters, specimen collection is acceptable on catheter day 1 and 2 only. ? Performed By: #### L AB980 #### [facility] (DEFAULT) [address] [place] [address] Blood Urine Moderate Abnormal Negative [facility] Comment on above: Order Comment: For i ndwelling catheters, specimen collection is acceptable on catheter day 1 and 2 only. ? Performed By: #### L AB980 #### [facility] (DEFAULT) [address] [place] [address] Color (U) Yellow Normal Yellow [facility] Comment on above: Order Comment: For i ndwelling catheters, specimen collection is acceptable on catheter day 1 and 2 only. ? Performed By: #### L AB980 #### [facility] (DEFAULT) [address] [place] [address] Glucose Ql (U) Negative Normal Negative [facility] Comment on above: Order Comment: For i ndwelling catheters, specimen collection is acceptable on catheter day 1 and 2 only. ? Performed By: #### L AB980 #### [facility] (DEFAULT) [address] [place] [address] Ketones Ql (U) Negative Normal Negative [facility] Comment on above: Order Comment: For i ndwelling catheters, specimen collection is acceptable on catheter day 1 and 2 only. ? Performed By: #### L AB980 #### [facility] (DEFAULT) [address] [place] [address] Leukocyte esterase Test strip Ql (U) Trace Abnormal Negative [facility] Comment on above: Order Comment: For i ndwelling catheters, specimen collection is acceptable on catheter day 1 and 2 only. ? Performed By: #### L AB980 #### [facility] (DEFAULT) [address] [place] [address] Nitrites Urine Negative Normal Negative [facility] Comment on above: Order Comment: For i ndwelling catheters, specimen collection is acceptable on catheter day 1 and 2 only. ? Performed By: #### L AB980 #### [facility] (DEFAULT) [address] [address] pH (U) 6.0 [pH] Normal 5.0-7.0 [facility] Comment on above: Order Comment: For i ndwelling catheters, specimen collection is acceptable on catheter day 1 and 2 only. ? Performed By: #### L [id number] #### [facility] (DEFAULT) [address] [address] Protein Urine 30 mg/dL Abnormal Negative [facility] Comment on above: Order Comment: For i ndwelling catheters, specimen collection is acceptable on catheter day 1 and 2 only. ? Performed By: #### L AB980 #### [facility] (DEFAULT) [address] [address] RBC LM.HPF (Urine sed) [#/Area] /[HPF] Abnormal 0-2 [facility] Comment on above: Order Comment: For i ndwelling catheters, specimen collection is acceptable on catheter day 1 and 2 only. ? Performed By: #### L AB980 #### [facility] (DEFAULT) [address] [address] Specific [place] Urine 1.027 Normal 1.001-1.035 [facility] Comment on above: Order Comment: For i ndwelling catheters, specimen collection is acceptable on catheter day 1 and 2 only. ? Performed By: #### L AB980 #### [facility] (DEFAULT) [address] [address] Squamous/Epithelial Cells 0-2/hpf Normal 0-2/hpf, 3-5/hpf = 1+ [facility] Comment on above: Order Comment: For i ndwelling catheters, specimen collection is acceptable on catheter day 1 and 2 only. ? Performed By: #### L AB980 #### [facility] (DEFAULT) [address] [address] Urobilinogen Urine 1.0 E.U./dL Normal 0.2 E.U/d L, 1.0 E.U/dL [facility] Comment on above: Order Comment: For i ndwelling catheters, specimen collection is acceptable on catheter day 1 and 2 only. ? Performed By: #### L AB980 #### [facility] (DEFAULT) [address] [place] [address] WBC Urine 6 - 10 Abnormal 0 - 5 [facility] Comment on above: Order Comment: For i ndwelling catheters, specimen collection is acceptable on catheter day 1 and 2 only. ? Performed By: #### L AB980 #### [facility] (DEFAULT) [address] [place] [address] URINALYSIS REFLEX TO CULTURE PERFORMABLEOrdered By: Lizabeth Rodriguez on 03-30-2023 Appearance (U) Clear Clear [facility] Bacteria LM Ql (Urine sed) ABSENT ABSENT [facility] Color (U) Yellow Yellow U [facility] Epithelial cells.squamous LM Ql (Urine sed) 0-2/hpf 0-2/hpf, 3-5/hpf = 1+ [facility] Glucose Test strip (U) [Mass/Vol] Negative Negative [facility] Interpretation and review of laboratory results Abnormal [facility] Ketones (U) [Mass/Vol] Negative Negative [facility] Leukocyte esterase Test strip Ql (U) Trace Abnormal Negative [facility] Nitrite Ql (U) Negative Negative [facility] pH (U) 6.0 [pH] 5.0 - 7.0 [facility] Protein (U) [Mass/Vol] 30 mg/dL Abnormal Negative [facility] RBC (U) [#/Vol] Moderate Abnormal Negative [facility] RBC LM.HPF (Urine sed) [#/Area] /[HPF] Abnormal [facility] Specific gravity (U) [Rel density] 1.027 1.001 - 1.035 [facility] Urobilinogen (U) [Mass/Vol] 1.0 E.U./dL 0.2 E.U/dL, 1.0 E.U/dL [facility] WBC LM.HPF (Urine sed) [#/Area] 6 - 10 Abnormal [facility] URINE DRUG SCREEN 03-30 Amphetamine/Methamphe tamine Not detected Normal Cutoff: 500 ng/mL [facility] Comment on above: Order Comment: For m edical purposes only. Positive results are unconfirmed unless otherwise noted. Performed By: #### 1 0DRUG ####[facility] (DEFAULT)[address] [place] [address] Barbiturates Positive Abnormal Cutoff: 200 ng/mL [facility] Comment on above: Order Comment: For edical purposes only. Positive results are unconfirmed unless otherwise noted. Performed By: #### 1 0DRUG ####[facility] (DEFAULT)[address] [place] [address] Benzodiazepines Positive Abnormal Cutoff: 200 ng/mL [facility] Comment on above: Order Comment: For edical purposes only. Positive results are unconfirmed unless otherwise noted. Performed By: #### 1 0DRUG ####[facility] (DEFAULT)[address] [place] [address] Buprenorphine Not detected Normal Cutoff: 5 ng/mL [facility] Comment on above: Order Comment: For edical purposes only. Positive results are unconfirmed unless otherwise noted. Performed By: #### 1 0DRUG ####[facility] (DEFAULT)[address] [place] [address] Cannabinoids Screen Ql (U) Not detected Normal Cutoff: 50 ng/mL [facility] Comment on above: Order Comment: For m edical purposes only. Positive results are unconfirmed unless otherwise noted. Performed By: #### 1 0DRUG ####[facility] (DEFAULT)[address] [place] [address] Cocaine Not detected Normal Cutoff: 150 ng/mL [facility] Comment on above: Order Comment: For edical purposes only. Positive results are unconfirmed unless otherwise noted. Performed By: #### 1 0DRUG ####[facility] (DEFAULT)[address] [place] [address] Fentanyl Positive Abnormal Cutoff: 1 ng/mL [facility] Comment on above: Order Comment: For m edical purposes only. Positive results are unconfirmed unless otherwise noted. Performed By: #### 1 0DRUG ####[facility] (DEFAULT)[address] [place] [address], [place] [address] Methadone Not detected Normal Cutoff: 300 ng/mL [facility] Comment on above: Order Comment: For m edical purposes only. Positive results are unconfirmed unless otherwise noted. Performed By: #### 1 0DRUG ####[facility] (DEFAULT)[address] [place] [address] Opiates Not detected Normal Cutoff: 300 ng/mL [facility] Comment on above: Order Comment: For m edical purposes only. Positive results are unconfirmed unless otherwise noted. Performed By: #### 1 0DRUG ####[facility] (DEFAULT)[address] [place] [address] Oxycodone Not detected Normal Cutoff: 100 ng/mL [facility] Comment on above: Order Comment: For m edical purposes only. Positive results are unconfirmed unless otherwise noted. Performed By: #### 1 0DRUG ####[facility] (DEFAULT)[address] [place] [address] URINE DRUG SCREEN 10Ordered By: Steven Zapata on 03-30-2023 Amphetamine+Methamphe tamine Screen (U) [Mass/Vol] Not detected [facility] Barbiturates Ql (U) Positive Abnormal [facility] Benzodiazepines Ql (U) Positive Abnormal [facility] Buprenorphine Ql (U) Not detected [facility] Cannabinoids Screen Ql (U) Not detected [facility] Cocaine Ql (U) Not detected [facility] fentaNYL Ql (U) Positive Abnormal [facility] Interpretation and review of laboratory results Abnormal [facility] Methadone Ql (U) Not detected [facility] Opiates Ql (U) Not detected [facility] oxyCODONE Ql (U) Not detected [facility] For medical purposes only. Positive results are unconfirmed unless otherwise noted. [facility] XR ABDOMEN 1 VIEWon 03-30-19 XR ABDOMEN 1 VIEW EXAM: XR ABDOMEN 1 V IEW, 03/30/2023 13:34 PM COMPARISON: No prior abdominal radiographs available for comparison. CLINICAL INDICATIONS: tube eval FINDINGS: Tubes: A gastric tube is present which is looped in the proximal stomach with the sidehole well below the GE junction. No gas dilated loops of bowel are seen in the included abdomen. The lower abdomen and pelvis are excluded. No visible pneumatosis or large volume pneumoperitoneum. The liver appears enlarged. The lungs are clear. No concerning osseous abnormality. IMPRESSION: Gastric tube is partially looped in the proximal stomach. Consider repositioning. Normal [facility] XR ABDOMEN 1 VIEW PORTABLEon 03-30-2023 XR ABDOMEN 1 VIEW PORTABLE EXAM: XR ABDOMEN 1 VIEW PORTABLE, 03/30/2023 19:02 PM COMPARISON: Earlier same day radiograph CLINICAL INDICATIONS: interval eval FINDINGS: Tubes: Enteric tube has been slightly retracted but remains looped, now in the proximal stomach. A Law catheter projects over the pelvis. No gross free air. There are couple mildly dilated small bowel loops in a nonobstructive pattern. Cholecystectomy clips. No appreciable acute osseous abnormalities. IMPRESSION: Enteric tube has been slightly retracted but remains looped in the proximal stomach. Repositioning recommended. There are a couple mildly dilated small bowel loops in a pattern suggesting ileus. Normal [facility] XR ABDOMEN 1 VIEW PORTABLE EXAM: XR ABDOMEN 1 VIEW PORTABLE, 03/30/2023 15:49 PM COMPARISON: Abdominal radiograph March 30, 2023 CLINICAL INDICATIONS: confirm placement FINDINGS: Limited [id number] for enteric tube evaluation. NG/OG tube appears looped in the distal stomach with tip in the proximal stomach. No visible pneumatosis or pneumoperitoneum. The visualized bowel loops are nondilated. Cholecystectomy clips. No appreciable acute osseous abnormalities. IMPRESSION: Enteric tube is now looped in the distal stomach with tip in the proximal stomach. Repositioning recommended. Normal [facility] XR Abdomen Single viewon IMPRESSION: Postpyloric Dobbhoff position. OLOGY EXAM: XR ABDOMEN 1 V IEW, 03/30/2023 23:36 PM COMPARISON: Same day CLINICAL INDICATIONS: dth placement FINDINGS: Tubes: None. Limited field of view radiograph of the upper abdomen was obtained to evaluate enteric tube positioning. The Dobbhoff is located with its tip in the proximal small bowel near the ligament of Treitz. Bowel gas pattern is non-obstructive. No gross free air. RADIOLOGY Satish Escobedo M D - 03/30/2023 EXAM: XR ABDOMEN 1 VIEW, 03/30/2023 23:36 PM COMPARISON: Same day CLINICAL INDICATIONS: dth placement FINDINGS: Tubes: None. Limited field of view radiograph of the upper abdomen was obtained to evaluate enteric tube positioning. The Dobbhoff is located with its tip in the proximal small bowel near the ligament of Treitz. Bowel gas pattern is non-obstructive. No gross free air. IMPRESSION IMPRESSION: Postpyloric Dobbhoff position. [facility] Radiology Study observation (narrative) [facility] IMPRESSION: Enteric tube has been slightly retracted but remains looped in the proximal stomach. Repositioning recommended. There are a couple mildly dilated small bowel loops in a pattern suggesting ileus. OLOGY EXAM: XR ABDOMEN 1 V IEW PORTABLE, 03/30/2023 19:02 PM COMPARISON: Earlier same day radiograph CLINICAL INDICATIONS: interval eval FINDINGS: Tubes: Enteric tube has been slightly retracted but remains looped, now in the proximal stomach. A Law catheter projects over the pelvis. No gross free air. There are couple mildly dilated small bowel loops in a nonobstructive pattern. Cholecystectomy clips. No appreciable acute osseous abnormalities. RADIOLOGY Dutch Fitzpatrick MD - 03/30/2023 EXAM: XR ABDOMEN 1 VIEW PORTABLE, 03/30/2023 19:02 PM COMPARISON: Earlier same day radiograph CLINICAL INDICATIONS: interval eval FINDINGS: Tubes: Enteric tube has been slightly retracted but remains looped, now in the proximal stomach. A Law catheter projects over the pelvis. No gross free air. There are couple mildly dilated small bowel loops in a nonobstructive pattern. Cholecystectomy clips. No appreciable acute osseous abnormalities. IMPRESSION IMPRESSION: Enteric tube has been slightly retracted but remains looped in the proximal stomach. Repositioning recommended. There are a couple mildly dilated small bowel loops in a pattern suggesting ileus. [facility] Radiology Study observation (narrative) [facility] IMPRESSION: Enteric tube is now looped in the distal stomach with tip in the proximal stomach. Repositioning recommended. OLOGY EXAM: XR ABDOMEN 1 V IEW PORTABLE, 03/30/2023 15:49 PM COMPARISON: Abdominal radiograph March 30, 2023 CLINICAL INDICATIONS: confirm placement FINDINGS: Limited otlpj-pj-atup for enteric tube evaluation. NG/OG tube appears looped in the distal stomach with tip in the proximal stomach. No visible pneumatosis or pneumoperitoneum. The visualized bowel loops are nondilated. Cholecystectomy clips. No appreciable acute osseous abnormalities. RADIOLOGY Dutch Fitzpatrick MD - 03/30/2023 EXAM: XR ABDOMEN 1 VIEW PORTABLE, 03/30/2023 15:49 PM COMPARISON: Abdominal radiograph March 30, 2023 CLINICAL INDICATIONS: confirm placement FINDINGS: Limited [id number]-[id number] for enteric tube evaluation. NG/OG tube appears looped in the distal stomach with tip in the proximal stomach. No visible pneumatosis or pneumoperitoneum. The visualized bowel loops are nondilated. Cholecystectomy clips. No appreciable acute osseous abnormalities. IMPRESSION IMPRESSION: Enteric tube is now looped in the distal stomach with tip in the proximal stomach. Repositioning recommended. [facility] Radiology Study observation (narrative) [facility] IMPRESSION: Gastric tube is partially looped in the proximal stomach. Consider repositioning. OLOGY EXAM: XR ABDOMEN 1 V IEW, 03/30/2023 13:34 PM COMPARISON: No prior abdominal radiographs available for comparison. CLINICAL INDICATIONS: tube eval FINDINGS: Tubes: A gastric tube is present which is looped in the proximal stomach with the sidehole well below the GE junction. No gas dilated loops of bowel are seen in the included abdomen. The lower abdomen and pelvis are excluded. No visible pneumatosis or large volume pneumoperitoneum. The liver appears enlarged. The lungs are clear. No concerning osseous abnormality. RADIOLOGY Angel Heaton MD - 03/30/2023 EXAM: XR ABDOMEN 1 VIEW, 03/30/2023 13:34 PM COMPARISON: No prior abdominal radiographs available for comparison. CLINICAL INDICATIONS: tube eval FINDINGS: Tubes: A gastric tube is present which is looped in the proximal stomach with the sidehole well below the GE junction. No gas dilated loops of bowel are seen in the included abdomen. The lower abdomen and pelvis are excluded. No visible pneumatosis or large volume pneumoperitoneum. The liver appears enlarged. The lungs are clear. No concerning osseous abnormality. IMPRESSION IMPRESSION: Gastric tube is partially looped in the proximal stomach. Consider repositioning. [facility] Radiology Study observation (narrative) [facility] XR Abdomen Single viewOrdere d By: Satish Escobedo on 03-30-2023 [facility] Work Phone: XR Abdomen Single viewOrdere d By: Dutch Fitzpatrick on 03-30-2023 [facility] Work Phone: XR Abdomen Single viewOrdere d By: Angel Heaton on 03-30-2023 [facility] XR CHEST 1 VIEW PORTABLEon 0 03-30-2023 XR CHEST 1 VIEW PORTABLE EXAM: XR CHEST 1 VIEW PORTABLE, 03/30/2023 12:55 PM COMPARISON: No prior studies available for comparison. CLINICAL INDICATIONS: ett placement RELEVANT CLINICAL HISTORY: FINDINGS: (Adequate technique) Implanted Devices: ET tube tip in the midtrachea, NG tube coiled in the stomach. Thorax: The lungs are clear. No pleural fluid. No mediastinal or hilar abnormality. IMPRESSION: Life support devices in place. No acute process. Normal [facility] CBC W Auto Differential pane l (Bld)on 03-29-2023 Basophils (Bld) [#/Vol] 0.04 10*3/uL Normal <=0.70 [facility] Comment on above: Performed By: #### 2 4320-03, #### [place] [address] [employer] [place] LAMBIA [id number] Basophils/100 WBC (Bld) 0.5 % Normal <=2.0 [facility] Comment on above: Performed By: #### 2 4320-03, #### [place] [address] [employer] [place] LINK [id number] Eosinophils (Bld) [#/Vol] 0.10 10*3/uL Normal <=0.70 [facility] Comment on above: Performed By: #### 2 4320-03, #### [place] [address] [employer] [place] [id number] Eosinophils/100 WBC (Bld) 1.2 % Normal <=10.0 [facility] Comment on above: Performed By: #### 2 4320-03, #### [place] [address] [employer] [place] [id number] Erythrocyte distribution width (RBC) [Entitic vol] 45.6 fL Normal 36.4-46.3 [facility] Comment on above: Performed By: #### 2 4320-2, #### [facility] [address] [place] [address] [employer] [place] [id number] Hematocrit (Bld) [Volume fraction] 44.5 % Normal 37.0-47.0 [facility] Comment on above: Performed By: #### 2 4320-, #### [place] [address] [place] [address] [employer] [place]AM[place] [id number] Hemoglobin (Bld) [Mass/Vol] 14.4 g/dL Normal 12.0-16.0 [facility] Comment on above: Performed By: #### 2 4320-, #### [address] [place] [address] [employer] [place] Franco CLIA [id number] Immature granulocytes (Bld) [#/Vol] 0.03 10*3/uL Normal <=0.10 [facility] Comment on above: Performed By: #### 2 4320-03, #### [place] [address] [place] [address] [employer] [place] [employer] CLIA [id number] Immature granulocytes/100 WBC (Bld) 0.40 % Normal <=1.50 [facility] Comment on above: Performed By: #### 2 4320-03, #### [facility] [address] [place] [address] [employer] [place] CLIA [id number] Lymphocytes (Bld) [#/Vol] 0.93 10*3/uL Low 1.20-3.40 [facility] Comment on above: Performed By: #### 2 4320-2, #### [place] [address] [place] [address] [employer] [place] Franco CLIA [id number] Lymphocytes/100 WBC (Bld) 10.9 % Low 20.0-40.0 [facility] Comment on above: Performed By: #### 2 4320-2, #### [facility] [address] [place] [address] [employer] [place] LINK [id number] MCH (RBC) [Entitic mass] 29.3 pg Normal 27.0-31.0 [facility] Comment on above: Performed By: #### 2 4320-2, #### [facility] [address] [place] [address] [employer] [place] LINK [id number] MCHC (RBC) [Mass/Vol] 32.4 g/dL Normal 32.0-36.0 [facility] Comment on above: Performed By: #### 2 4320-, #### [place] [address] [facility]. [place] [address] [employer] [place] [id number] MCV (RBC) [Entitic vol] 90.6 fL Normal 80.0-100.0 [facility] Comment on above: Performed By: #### 2 4320-, #### [facility] [address] [place] [address] [employer] [place]AM[place] [id number] Monocytes (Bld) [#/Vol] 0.47 10*3/uL Normal 0.10-0.60 [facility] Comment on above: Performed By: #### 2 4320-, #### [facility] [address] [place] [address] [employer] [place]AM[place] [id number] Monocytes/100 WBC (Bld) 5.5 % Normal <=8.0 [facility] Comment on above: Performed By: #### 2 4320-2, #### [facility] [address] [place] [address] [employer] [place]AM[place] [id number] Neutrophils (Bld) [#/Vol] 6.98 10*3/uL High 1.40-6.50 [facility] Comment on above: Performed By: #### 2 4320-2, #### [facility] [address] [place] [address] [employer] [place]AM[place] [id number] Neutrophils/100 WBC (Bld) 81.5 % High 50.0-70.0 [facility] Comment on above: Performed By: #### 2 4320-2, #### [facility] [address] [place] [address] [employer] [place]AMBIA [id number] Nucleated RBC (Bld) [#/Vol] 0.00 10*3/uL Normal <=0.10 [facility] Comment on above: Performed By: #### 2 4320-2, #### [facility] [address] [place] [address] [employer] [place]AMBIA [id number] Platelet mean volume (Bld) [Entitic vol] 11.2 fL Normal 9.0-13.0 [facility] Comment on above: Performed By: #### 2 4320-, #### [facility] [address] [place] [address] [employer] [place]AMBIA [id number] Platelets (Bld) [#/Vol] 188 10*3/uL Normal 130-400 [facility] Comment on above: Performed By: #### 2 4320-2, #### [facility] [address] [place] [address] [employer] [place]AMBIA [id number] RBC (Bld) [#/Vol] 4.91 10*6/uL Normal 4.00-6.30 [facility] Comment on above: Performed By: #### 2 4320-2, #### [facility] [address] [place] [address] [employer] [place]AM[place] [id number] WBC (Bld) [#/Vol] 8.55 10*3/uL Normal 4.80-10.80 [facility] Comment on above: Performed By: #### 2 4321-2, 32827-1 #### [facility] [address] [facility]. [place], [place] [address] [employer] [place] Francoivette LINK [id number] CHEST AP PORTABLEon 03-29-19 24 CHEST AP PORTABLE EXAMINATION: CHEST A P PORTABLE 03/29/2023 3:16 PM PST HISTORY: Seizure disorder TECHNIQUE: Single frontal view of the chest acquired. COMPARISONS: None available at the time of dictation. FINDINGS: Lines/tubes/other: -The endotracheal tube terminates 2.1 cm cranial to the sidney. -The enteric tube terminates in the proximal stomach with the sidehole port well beyond the gastroesophageal junction. Heart and mediastinum: The heart and the mediastinum are within normal limits for technique. Bones: No acute osseous abnormality. Lungs: Focal patchy opacification in the right lower lung. Pleura: There is no significant pleural effusion or pneumothorax. Other: None. IMPRESSION: Mild focal right lung opacification. Differential includes pneumonia, aspiration, and atelectasis. Normal [facility] CKon 03-29-2023 CK [Catalytic activity/Vol] 73 U/L Normal 21-215 [facility] Comment on above: Performed By: #### 2 157-6 ####[facility] [facility].[place] [address]Medical Director - [place] Pearson [id number] CT CERVICAL SPINE WITHOUT ON Young 03-29-2023 CT CERVICAL SPINE WITHOUT ONLY EXAMINATION: CT HEAD WITHOUT CONTRAST CLINICAL INDICATION: Seizure disorder COMPARISON: None. TECHNIQUE: Helical imaging of CT head was performed without IV contrast. Radiation dose reduction was achieved using ALARA (as low as reasonably achievable) principals including automatic exposure control, adjusting the mA and/or KV setting according to patient's size and weight, the use of iterative reconstruction techniques as well as performing sagittal and coronal reconstruction images when applicable. FINDINGS: BRAIN PARENCHYMA & EXTRA-AXIAL SPACES: No evidence for acute hemorrhage. Negative for large territory infarct. The right cerebral hemisphere is larger with respect to the left. No focal parenchymal abnormality. Consider right hemimegalencephaly versus mild asymmetric volume loss of the left cerebral hemisphere. No acute extra-axial fluid collection identified. There is no midline shift. Basal cisterns are patent. VENTRICLES: No evidence of hydrocephalus. SCALP SOFT TISSUES: No significant abnormality. CALVARIUM: No acute process. VISUALIZED PARANASAL SINUSES: No air-fluid levels. MASTOID AIR CELLS: Grossly clear. IMPRESSION: 1. No evidence of acute intracranial abnormality. 2. The right cerebral hemisphere is larger with respect to the left. No focal parenchymal abnormality. Consider right hemimegalencephaly versus mild asymmetric volume loss of the left cerebral hemisphere. EXAMINATION: CT Cervical Spine Without IV Contrast. CLINICAL INDICATION: Seizure disorder TECHNIQUE: Axial images along with multiplanar reconstructions without IV contrast administration. Radiation dose reduction was achieved using ALARA (as low as reasonably achievable) principals including automatic exposure control, adjusting the mA and/or KV setting according to patient's size and weight, the use of iterative reconstruction techniques as well as performing sagittal and coronal reconstruction images when applicable. COMPARISON: None. FINDINGS: ALIGNMENT: Normal alignment. Atlanto-axial relationships are unremarkable. OSSEOUS STRUCTURES: No acute fracture or subluxation. DISC SPACES: Well maintained disc spaces. SOFT TISSUES: Normal prevertebral soft tissue thickness. PARTIALLY IMAGED LUNG APICES: Partially imaged lung apices demonstrate no acute process. HARDWARE: None IMPRESSION: 1. No acute fracture or subluxation. Normal [facility] CT HEAD WITHOUT ONLYon 03-29 CT HEAD WITHOUT ONLY EXAMINATION: CT HEAD WITHOUT CONTRAST CLINICAL INDICATION: Seizure disorder COMPARISON: None. TECHNIQUE: Helical imaging of CT head was performed without IV contrast. Radiation dose reduction was achieved using ALARA (as low as reasonably achievable) principals including automatic exposure control, adjusting the mA and/or KV setting according to patient's size and weight, the use of iterative reconstruction techniques as well as performing sagittal and coronal reconstruction images when applicable. FINDINGS: BRAIN PARENCHYMA & EXTRA-AXIAL SPACES: No evidence for acute hemorrhage. Negative for large territory infarct. The right cerebral hemisphere is larger with respect to the left. No focal parenchymal abnormality. Consider right hemimegalencephaly versus mild asymmetric volume loss of the left cerebral hemisphere. No acute extra-axial fluid collection identified. There is no midline shift. Basal cisterns are patent. VENTRICLES: No evidence of hydrocephalus. SCALP SOFT TISSUES: No significant abnormality. CALVARIUM: No acute process. VISUALIZED PARANASAL SINUSES: No air-fluid levels. MASTOID AIR CELLS: Grossly clear. IMPRESSION: 1. No evidence of acute intracranial abnormality. 2. The right cerebral hemisphere is larger with respect to the left. No focal parenchymal abnormality. Consider right hemimegalencephaly versus mild asymmetric volume loss of the left cerebral hemisphere. EXAMINATION: CT Cervical Spine Without IV Contrast. CLINICAL INDICATION: Seizure disorder TECHNIQUE: Axial images along with multiplanar reconstructions without IV contrast administration. Radiation dose reduction was achieved using ALARA (as low as reasonably achievable) principals including automatic exposure control, adjusting the mA and/or KV setting according to patient's size and weight, the use of iterative reconstruction techniques as well as performing sagittal and coronal reconstruction images when applicable. COMPARISON: None. FINDINGS: ALIGNMENT: Normal alignment. Atlanto-axial relationships are unremarkable. OSSEOUS STRUCTURES: No acute fracture or subluxation. DISC SPACES: Well maintained disc spaces. SOFT TISSUES: Normal prevertebral soft tissue thickness. PARTIALLY IMAGED LUNG APICES: Partially imaged lung apices demonstrate no acute process. HARDWARE: None IMPRESSION: 1. No acute fracture or subluxation. Normal [facility] Comprehensive metabolic 2000 panelon 03-29-2023 Albumin [Mass/Vol] 3.8 g/dL Normal 3.4-5.0 [facility] Comment on above: Performed By: #### 2 4323-8, 34620-4, LIPASE ####[facility] [facility] Director - [facility] [id number] ALP [Catalytic activity/Vol] 112 U/L Normal 50-136 [facility] Comment on above: Performed By: #### 2 4323-8, 72831-4, LIPASE ####[place] [address] Director - [facility] [id number] ALT [Catalytic activity/Vol] 18 U/L Normal 14-59 [facility] Comment on above: Performed By: #### 2 4323-8, 75395-6, LIPASE ####[place] [address], [place] [address]Ycwofay Director - Eneidaarnie CrossrellCLIA [id number] Anion gap [Moles/Vol] 4.0 mmol/L Normal <=15.0 [facility] Comment on above: Performed By: #### 2 4323-8, , LIPASE ####[facility], [place] [address]Jcvabqo Director - Eneida FarrellCLIA [id number] AST [Catalytic activity/Vol] 13 U/L Low 15-37 [facility] Comment on above: Performed By: #### 2 4323-8, , LIPASE ####[facility] Director - Eneidaarnie CrossrellCLIA [id number] Bilirubin [Mass/Vol] 0.3 mg/dL Normal 0.2-1.0 [facility] Comment on above: Performed By: #### 2 432-8, , LIPASE ####[facility] Director - Eneida FarrellCLIA [id number] Calcium [Mass/Vol] 8.7 mg/dL Normal 8.5-10.1 [facility] Comment on above: Performed By: #### 2 432-8, , LIPASE ####[facility] Director - Eneida FarrellCLIA [id number] Chloride [Moles/Vol] 104 mmol/L Normal 98-107 [facility] Comment on above: Performed By: #### 2 4323-8, , LIPASE ####[facility] Director - [place]ne[place] FarrellCLIA [id number] CO2 [Moles/Vol] 30 mmol/L Normal 21-32 [facility] Comment on above: Performed By: #### 2 4323-8, , LIPASE ####[facility] Director - Ene[place] Lili [id number] Creatinine [Mass/Vol] 0.91 mg/dL Normal 0.51-0.95 [facility] Comment on above: Performed By: #### 2 432-8, , LIPASE ####[facility] - [facility] [id number] GFR/1.73 sq M.predicted MDRD (S/P/Bld) [Vol rate/Area] mL/min/{1.73_m2} Normal >=59 [facility] Comment on above: Performed By: #### 2 4322-8, , LIPASE ####[place] [address] - Eneida Pearson [id number] Glucose [Mass/Vol] 128 mg/dL High 74-106 [facility] Comment on above: Performed By: #### 2 8, , LIPASE ####[place] [address] [id number] HGFR GLOMERULAR FILTRATIO N RATE INTERPRETATION~The eGFR is calculated using the MDRD equation.~This equation has been validated in patients with chronic kidney disease;~however, it underestimates the GFR in healthy patients with GFR's over 60 mL/min.~The equation is not valid in children under the age of 18.~NOTE: Criteria for Chronic Kidney Disease:~ ~1. Kidney damage for at least three months, as defined~by structural or functional abnormalities of the kidney,~with or without decreased glomerular filtration rate, manifested by either:~* Pathological abnormalities or~* Markers of Kidney damage, including abnormalities in~the composition of the blood or urine or abnormalities in imaging tests.~ ~2. GFR <60 mL/min/1.73 m squared for at least three months, with or without kidney damage.~ Normal [facility] Comment on above: Performed By: #### 2 432-8, , LIPASE ####[facility], [place] [address]Fnwrbdb Director - Ene[place] Pearson [id number] Potassium [Moles/Vol] 3.9 mmol/L Normal 3.5-5.1 [facility] Comment on above: Performed By: #### 2 4323-8, 73650-5, LIPASE ####[facility], [place] [address]Gmpjmho Director - Ene[place] Pearson [id number] Protein [Mass/Vol] 7.3 g/dL Normal 6.4-8.2 [facility] Comment on above: Performed By: #### 2 4323-8, , LIPASE ####[facility], [place] [address]Rtorxfl Director - Ene[place] Pearson [id number] Sodium [Moles/Vol] 138 mmol/L Normal 136-145 [facility] Comment on above: Performed By: #### 2 4323-8, , LIPASE ####[facility], [place] [address]Gnjxxng Director - Eneida Pearson [id number] Urea nitrogen [Mass/Vol] 9 mg/dL Normal 7-17 [facility] Comment on above: Performed By: #### 2 4323-8, , LIPASE ####[facility], [place] [address]Yyqkthn Director - Ene[place] Pearson [id number] Gas panel (BldA)on 4 Base excess Calc (Bld) [Moles/Vol] -1 mmol/L Normal -2-2 [facility] Comment on above: Performed By: #### 2 4336-0 ####[place] [address], [place] [address]Fbowiye Director - Ene[place] Pearson [id number] for [address] StreethoctSwan [place], [place] [address] Carboxyhemoglobin (BldA) [Mass fraction] 0.6 % Normal [facility] Comment on above: Performed By: #### 2 4336-0 ####[facility], [place] [address]Epbfrmh Director - Ene[place] Pearson [id number] for [facility]Q[place], [place] [address] Chloride [Moles/Vol] 104 mmol/L Normal 98-107 [facility] Comment on above: Performed By: #### 2 4336-0 ####[facility], [place] [address]Iyqoxkg Director - Eneida Pearson [id number] for [facility]Q[place], [place] [address] CO2 (Bld) [Partial pressure] 41.2 mm/Hg Normal 35.0-45.0 [facility] Comment on above: Performed By: #### 2 4336-0 ####[facility], [place] [address]Njbsalz Director - Ene[place] Pearson [id number] for [facility], [place] [address] DEOXYHEMOGLOBIN 1 % Normal [facility] Comment on above: Performed By: #### 2 4336-0 ####[facility], [place] [address]Oikaqrh Director - Eneida Pearson [id number] for [facility]Q[place], [place] [address] FLOW Normal [facility] Comment on above: Performed By: #### 2 4336-0 ####[facility], [place] [address]Zmjvpkw Director - Eneida Pearson [id number] for [facility], [place] [address] Glucose [Mass/Vol] 156 mg/dL High 65-110 [facility] Comment on above: Performed By: #### 2 4336-0 ####[facility], [place] [address]Mkzvsql Director - Eneida Pearson [id number] for [facility]MoHigg[place], [place] [address] HCARBOXY NON-SMOKERS 0.0-1.5% SMOKERS 1.5-5.0% Normal [facility] Comment on above: Performed By: #### 2 4336-0 ####[facility], [place] [address]Xubbwen Director - Eneida Pearson [id number] for [facility]MoHigg[place], [place] [address] HCO3 (Bld) [Moles/Vol] 24.3 mmol/L Normal 22.0-26.0 [facility] Comment on above: Performed By: #### 2 4336-0 ####[place] [address], [place] [address]Mhnoiua Director - Eneida Pearson [id number] for [facility]Q[place], [place] [address] HEADING CO-OXIMETRY CO-OXIMETRY Normal [facility] Comment on above: Performed By: #### 2 4336-0 ####[facility], [place] [address]Peolamp Director - Eneida Pearson [id number] for [place] [address]Q[place], [place] [address] HEADING CO-OXIMETRY CHEMISTRY Normal [facility] Comment on above: Performed By: #### 2 4336-0 ####[facility], [place] [address]Ivgnzer Director - Eneida Pearson [id number] for [place] [address], [place] [address] Hemoglobin (Bld) [Mass/Vol] 14.7 g/dL Normal 12.0-16.0 [facility] Comment on above: Performed By: #### 2 4336-0 ####[facility], [place] [address]Wrowdiy Director - Eneida Pearson [id number] for [facility]MoH[place], [place] [address] IONIZED CA 1.1 mmol/L Normal 1.1-1.4 [facility] Comment on above: Performed By: #### 2 4336-0 ####[facility], [place] [address]Gahuelp Director - Eneida Pearson [id number] for [facility]MoH[place], [place] [address] Lactate [Moles/Vol] 1.2 mmol/L Normal 0.4-2.0 [facility] Comment on above: Performed By: #### 2 4336-0 ####[facility], [place] [address]Fymfrdw Director - Eneida Pearson [id number] for [place] [address] [address]MoH[place], [place] [address] M.A.T. Positive Normal POSITIVE [facility] Comment on above: Performed By: #### 2 4336-0 ####[facility], [place] [address]Wgrzsmm Director - Eneida Pearson [id number] for [place] [address] [address], [place] [address] Methemoglobin (BldA) [Mass fraction] 0.5 % Normal 0.0-1.5 [facility] Comment on above: Performed By: #### 2 4336-0 ####[facility], [place] [address]Vmuljgn Director - Eneida Pearson [id number] for [facility]MoH[place], [place] [address] MODE VENT Normal MODE [facility] Comment on above: Performed By: #### 2 4336-0 ####[facility], [place] [address]Vrwcvwm Director - Eneida Pearson [id number] for [facility]MoH[place], [place] [address] Oxygen (Bld) [Partial pressure] 132 mm/Hg High 80-100 [facility] Comment on above: Performed By: #### 2 4336-0 ####[facility], [place] [address]Ibezqgd Director - Eneida Pearson [id number] for [facility]MoH[place], [place] [address] Oxygen capacity (BldA) [Volume fraction] 40 % Normal [facility] Comment on above: Performed By: #### 2 4336-0 ####[facility], [place] [address]Vaallmy Director - Eneida Pearson [id number] for [facility]Q[place], [place] [address] Oxyhemoglobin (BldA) [Mass fraction] 98 % Normal 92-100 [facility] Comment on above: Performed By: #### 2 4336-0 ####[place] [address], [place] [address]Apyrarg Director - Eneida Pearson [id number] for [place] [address] [address]Q[place], [place] [address] PEEP 5 PEEP PRESSURE Normal [facility] Comment on above: Performed By: #### 2 4336-0 ####[place] [address], [place] [address]Cuofeia Director - Eneida Pearson [id number] for [place] [address] [address]Q[place], [place] [address] pH (Bld) 7.389 [pH] Normal 7.350-7.450 [facility] Comment on above: Performed By: #### 2 4336-0 ####[place] [address], [place] [address]Ulebumo Director - Eneida Pearson [id number] for [place] [address] [address], [place] [address] Potassium [Moles/Vol] 3.7 mmol/L Normal 3.2-5.1 [facility] Comment on above: Performed By: #### 2 4336-0 ####[facility] [address]Medical Director - Eneida Pearson [id number] for [facility]Q[place], [place] [address] RATE 16 Normal [facility] Comment on above: Performed By: #### 2 4336-0 ####[facility] [address]Medical Director - Eneida Pearson [id number] for [facility]Q[place], [place] [address] Sodium [Moles/Vol] 139 mmol/L Normal 131-143 [facility] Comment on above: Performed By: #### 2 4336-0 ####[facility] [address]Medical Director - Eneida Pearson [id number] for [place] [address]Q[place], [place] [address] TIDAL VOLUME 450 mL Normal [facility] Comment on above: Performed By: #### 2 4336-0 ####[facility] [address]Medical Director - Eneida Pearson [id number] for [place] [address]Q[place], [place] [address] Tumor site Nom (Spec) L RADIAL Normal SITE [facility] Comment on above: Performed By: #### 2 4336-0 ####[facility], [place] [address]Gmebecs Director - Eneida Pearson [id number] for [place] [address] [place] [address] [address] Base excess Calc (Bld) [Moles/Vol] -4 mmol/L Low -2-2 [facility] Comment on above: Performed By: #### 2 4321-2, 53281-8 #### [facility] [address] [place] [address] [employer] - [place] LINK [id number] Carboxyhemoglobin (BldA) [Mass fraction] 0.3 % Normal [facility] Comment on above: Performed By: #### 2 4320-, #### [facility] [address] [place] [address] [employer] - [place] LINK [id number] Chloride [Moles/Vol] 102 mmol/L Normal 98-107 [facility] Comment on above: Performed By: #### 2 4320-, #### [facility] [address] [place] [address] [employer] - [place] LINK [id number] CO2 (Bld) [Partial pressure] 67.5 mm/Hg High 35.0-45.0 [facility] Comment on above: Performed By: #### 2 4320-2, #### [facility] [address] [place] [address] [employer]ice - EneidaD.W. McMillan Memorial HospitalFranco JENNIFER [id number] DEOXYHEMOGLOBIN 5 % Normal [facility] Comment on above: Performed By: #### 2 4320-, #### [facility] [address] [place] [address] [employer] App[employer]ice - EneidaMeadowlands Hospital Medical CenterJENNIFER [id number] FLOW Normal [facility] Comment on above: Performed By: #### 2 4320-, #### [facility] [address] [place] [address] [employer] App[employer]ice - EneidaD.W. McMillan Memorial HospitalFranco JENNIFER [id number] Glucose [Mass/Vol] 147 mg/dL High 65-110 [facility] Comment on above: Performed By: #### 2 4320-2, #### [facility] [address] [place] [address] [employer] - Eneida Francoivette LINK [id number] HCARBOXY NON-SMOKERS 0.0-1.5% SMOKERS 1.5-5.0% Normal [facility] Comment on above: Performed By: #### 2 4320-2, #### [facility] [address] [place] [address] [employer] - Eneida LINK [id number] HCO3 (Bld) [Moles/Vol] 25.8 mmol/L Normal 22.0-26.0 [facility] Comment on above: Performed By: #### 2 432-2, #### [facility] [address] [place] [address] [employer] - [place]ne[place] LAMBIA [id number] HEADING CO-OXIMETRY CO-OXIMETRY Normal [facility] Comment on above: Performed By: #### 2 4320-2, #### [facility] [address] [place] [address] [employer] - Eneida LINK [id number] HEADING CO-OXIMETRY CHEMISTRY Normal [facility] Comment on above: Performed By: #### 2 4320-, #### [facility] [address] [place] [address] [employer] - [place] LAMBIA [id number] Hemoglobin (Bld) [Mass/Vol] 15.4 g/dL Normal 12.0-16.0 [facility] Comment on above: Performed By: #### 2 4320-2, #### [facility] [address] [place] [address] [employer] - [place]ne[place] LAMBIA [id number] IONIZED CA 1.2 mmol/L Normal 1.1-1.4 [facility] Comment on above: Performed By: #### 2 4320-2, #### [facility] [address] [place] [address] [employer] - [place]ne[place] LAMBIA [id number] Lactate [Moles/Vol] 1.8 mmol/L Normal 0.4-2.0 [facility] Comment on above: Performed By: #### 2 4320-2, #### [facility] [address] [place] [address] [employer] - Eneida LINK [id number] M.A.T. Positive Normal POSITIVE [facility] Comment on above: Performed By: #### 2 4320-, #### [facility] [address] [place] [address] [employer] - [place] LINK [id number] Methemoglobin (BldA) [Mass fraction] 0.5 % Normal 0.0-1.5 [facility] Comment on above: Performed By: #### 2 4320-, #### [facility] [address] [place] [address] [employer] - [place] LINK [id number] MODE VENT Normal MODE [facility] Comment on above: Performed By: #### 2 4320-03, #### [facility] [address] [place] [address] [employer] - [place]ne[place] LINK [id number] Oxygen (Bld) [Partial pressure] 93 mm/Hg Normal 80-100 [facility] Comment on above: Performed By: #### 2 4320-03, #### [facility] [address] [place] [address] [employer] - [place]ne[place] LINK [id number] Oxygen capacity (BldA) [Volume fraction] 50 % Normal [facility] Comment on above: Performed By: #### 2 4320-, #### [facility] [address] [place] [address] [employer] - [place]ne[place] LINK [id number] Oxyhemoglobin (BldA) [Mass fraction] 95 % Normal 92-100 [facility] Comment on above: Performed By: #### 2 4320-, #### [facility] [address] [place] [address] [employer] - [place]ne[place] LINK [id number] PEEP 5 PEEP PRESSURE Normal [facility] Comment on above: Performed By: #### 2 4320-, #### [facility] [address] [place] [address] [employer] - [place] LINK [id number] pH (Bld) 7.201 [pH] Critically low 7.350-7.450 [facility] Comment on above: Performed By: #### 2 4320-2, #### [facility] [address] [place] [address] [employer] - [place]ne[place] LINK [id number] Potassium [Moles/Vol] 4.1 mmol/L Normal 3.2-5.1 [facility] Comment on above: Performed By: #### 2 4320-03, #### [facility] [address] [place] [address] [employer] - [place]ne[place] LINK [id number] RATE 16 Normal [facility] Comment on above: Performed By: #### 2 4320-03, #### [facility] [address] [place] [address] [employer] - [place] LINK [id number] Sodium [Moles/Vol] 140 mmol/L Normal 131-143 [facility] Comment on above: Performed By: #### 2 4320-2, #### [facility] [address] [place] [address] [employer] - [place]ne[place] LINK [id number] TIDAL VOLUME 400 mL Normal [facility] Comment on above: Performed By: #### 2 4320-2, #### [facility] [address] [place] [address] [employer] - Eneida LINK [id number] Tumor site Nom (Spec) R RADIAL Normal SITE [facility] Comment on above: Performed By: #### 2 4320-2, #### [facility] [address] [place] [address] [employer] - Eneida LINK [id number] LACTATEon 01-31-2024 Lactate [Moles/Vol] 1.5 mmol/L Normal 0.4-2.0 [facility] Comment on above: Performed By: #### 2 524-7 ####[facility] [address]Medical Director - Eneida Pearson [id number] Lactate [Moles/Vol] 1.8 mmol/L Normal 0.4-2.0 [facility] Comment on above: Performed By: #### 2 4321-2, #### [facility] [address] [place] [address] [employer] - Eneida LINK [id number] LIPASEon 03-29-2023 LIPASES 69 U/L Normal 13-75 [facility] Comment on above: Performed By: #### 2 4323-8, , LIPASE ####[facility] Director - Ene[place] Pearson [id number] MAGNESIUMon 03-29-2023 Magnesium [Mass/Vol] 2.4 mg/dL Normal 1.6-2.6 [facility] Comment on above: Performed By: #### 2 3-8, , LIPASE ####[facility] Director - Eneida Pearson [id number] PT and aPTT panel Coag (PPP) on 03-29-2023 aPTT Coag (PPP) [Time] 25.2 s Normal 23.5-31.3 [facility] Comment on above: Performed By: #### 2 4321-2, #### [facility] [address] [place] [address] [employer] - Eneida LINK [id number] HPTINR INR REFERENCE RANGE INTERPRETATION Patients on Coumadin 2.0 - 3.0 Patients with mechanical heart valves 2.5 - 3.5 Normal [facility] Comment on above: Performed By: #### 2 432-2, #### [facility] [address] [place] [address] [employer] - Eneida LINK [id number] INR Coag (PPP) [Relative time] 0.9 {INR} Normal 0.8-1.1 [facility] Comment on above: Performed By: #### 2 432-2, #### [facility] [address] [place] [address] [employer] - Eneida LINK [id number] PT Coag (PPP) [Time] 9.9 s Normal 9.3-11.5 [facility] Comment on above: Performed By: #### 2 4320-2, #### [facility] [address] [place] [address] [employer] - [place]ne[place] LINK [id number] TROPONIN HIGH SENSITIVITYon 03-29-2023 TNIH 309.30 pg/mL High <=59.00 [facility] Comment on above: Performed By: #### 2 4320-03, #### [facility] [address] [place] [address] [employer] - [place]neida Francoivette LINK [id number] TNIH 39.90 pg/mL Normal <=59.00 [facility] Comment on above: Result Comment: <59 pg/mL is considered a negative result. Performed By: #### T ROP2 ####[address] [address]Medical Director - Ene[place] Pearson [id number] URINALYSIS with reflex to CU LTUREon 03-29-2023 Bacteria LM Ql (Urine sed) Normal TRACE [facility] Comment on above: Performed By: #### U AR ####[address] [address]Medical Director - [place]ne[place] Pearson [id number] for [place] [address] Bilirubin (U) [Mass/Vol] Negative Normal NEGATIVE [facility] Comment on above: Performed By: #### U AR ####[facility], [place] [address]Yqgqbjj Director - [place] Pearson [id number] for [facility] [place], [place] [address] Clarity (U) CLEAR Normal CLEAR [facility] Comment on above: Performed By: #### U AR ####[facility] [address]Medical Director - Ene[place] Pearson [id number] for [facility]MoHigginsville, [place] [address] Color (U) YELLOW Normal YELLOW [facility] Comment on above: Performed By: #### U AR ####[facility] [address]Medical Director - Ene[place] Pearson [id number] for [facility]Quitman, [place] [address] Glucose Test strip (U) [Mass/Vol] Negative Normal NEGATIVE [facility] Comment on above: Performed By: #### U AR ####[facility] [address]Medical Director - Eneida Pearson [id number] for [facility]Quit[place], [place] [address] HMICRO MICROSCOPIC Normal [facility] Comment on above: Performed By: #### U AR ####[facility] [address]Medical Director - Eneida Pearson [id number] for [facility]Quitman, [place] [address] Hyaline casts (Urine sed) [#/Area] Normal 0-8 [facility] Comment on above: Performed By: #### U AR ####[facility], [place] [address]Ygnqust Director - [place] Pearson [id number] for [facility]MoHigginsville, [place] [address] Ketones (U) [Mass/Vol] TRACE Abnormal NEGATIVE [facility] Comment on above: Performed By: #### U AR ####[facility], [place] [address]Ggjamho Director - Eneidaarnie CrossEssentia HealthJENNIFER [id number] for [facility]Quit[place], [place] [address] Leukocyte esterase Qn (U) Negative Normal TRACE [facility] Comment on above: Performed By: #### U AR ####[facility], [place] [address]Upviluz Director - [facility] [id number] for [facility]Quit[place], [place] [address] Nitrite Ql (U) Negative Normal NEGATIVE [facility] Comment on above: Performed By: #### U AR ####[facility], [place] [address]Lzqdffd Director - [facility] [id number] for [facility]Quit[place], [place] [address] pH (U) 8.0 [pH] High 5.5-7.5 [facility] Comment on above: Performed By: #### U AR ####[facility]cal Director - [facility] [id number] for [facility]Quit[place], [place] [address] Protein (U) [Mass/Vol] Negative Normal NEGATIVE [facility] Comment on above: Performed By: #### U AR ####[facility], [place] [address]Wtvcoml Director - [facility] [id number] for [facility]Quit[place], [place] [address] RBC (U) [#/Vol] Negative Normal NEGATIVE [facility] Comment on above: Performed By: #### U AR ####[facility]cal Director - [place] Pearson [id number] for [place] [address] [address]Quit[place], [place] [address] RBC LM.HPF (Urine sed) [#/Area] Normal 0-4 [facility] Comment on above: Performed By: #### U AR ####[place] [address], [place] [address]Oyyaflf Director - [place] Pearson [id number] for [place] [address] [address]Quit[place], [place] [address] Specific gravity (U) [Rel density] 1.017 Normal 1.010-1.035 [facility] Comment on above: Performed By: #### U AR ####[place] [address], [place] [address]Nhfpihc Director - [place] Pearson [id number] for [place] [address] [address] [place], [place] [address] SQUAMOUS EPITHELIALS Normal 0-5 [facility] Comment on above: Performed By: #### U AR ####[place] [address], [place] [address]Ssqsaqc Director - [place] Pearson [id number] for [place] [address] [address] [place], [place] [address] Urobilinogen Qn (U) 0.2 {Pasquale'U}/dL Normal <=1.0 [facility] Comment on above: Performed By: #### U AR ####[place] [address], [place] [address]Ddawejv Director - [place] Peasron [id number] for [place] [address] [address]Quit[place], [place] [address] WBC LM.HPF (Urine sed) [#/Area] Normal 0-5 [facility] Comment on above: Performed By: #### U AR ####[place] [address], [place] [address]Oaqtplx Director - [place] Pearson [id number] for [place] [address] [address]Q[place], [place] [address] VIRAL RESPIRATORY PANELon Adenovirus Not detected Normal NOT DETECTED [facility] Comment on above: Performed By: #### R ESPIRA ####[facility]cal Director - [id number] for [facility]Mount [place] [address] B parapertussis Not detected Normal NOT DETECTED [facility] Comment on above: Performed By: #### R ESPIRA ####[facility]cal Director - [id number] for [facility]MoLauren [place] [address] B pertussis Not detected Normal NOT DETECTED [facility] Comment on above: Performed By: #### R ESPIRA ####[facility]cal Director - [id number] for [facility]MoLauren [place] [address] Chlamydia pneumoniae Not detected Normal NOT DETECTED [facility] Comment on above: Performed By: #### R ESPIRA ####[facility]cal Director - [phone] for [facility]MoLauren [place] [address] CORONAVIRUS [id number] Not detected Normal NOT DETECTED [facility] Comment on above: Performed By: #### R ESPIRA ####[facility]cal Director - [facility] [id number] for [facility]MoLauren [place] [address] CORONAVIRUS HKU1 Not detected Normal NOT DETECTED [facility] Comment on above: Performed By: #### R ESPIRA ####[facility]cal Director - [place] [id number] for [facility]Mount [place], [place] [address] CORONAVIRUS NL63 Not detected Normal NOT DETECTED [facility] Comment on above: Performed By: #### R ESPIRA ####[facility], [place] [address]Jtsvxvm Director - [facility] HospitalJENNIFER [id number] for [facility]Mount [place], [place] [address] CORONAVIRUS OC43 Not detected Normal NOT DETECTED [facility] Comment on above: Performed By: #### R ESPIRA ####[facility], [place] [address]Vlumzdm Director - [facility] HospitalJENNIFER [id number] for [facility]Mount [place], [place] [address] HPCR TESTING PERFORMED BY PCR METHODOLOGY Normal [facility] Comment on above: Performed By: #### R ESPIRA ####[facility], [place] [address]Bxivrnz Director - [facility] [id number] for [facility]Mount [place], [place] [address] HPCRB TEST PERFORMED USING BIOFIRE Normal [facility] Comment on above: Performed By: #### R ESPIRA ####[facility], [place] [address]Vfbiqkj Director - [facility] [id number] for [facility] [place], [place] [address] Human Metapneumoviru Not detected Normal NOT DETECTED [facility] Comment on above: Performed By: #### R ESPIRA ####[facility], [place] [address]Zpvyhma Director - [facility] HospitalJENNIFER [id number] for [facility]Mount [place], [place] [address] Influenza A Not detected Normal NOT DETECTED [facility] Comment on above: Performed By: #### R ESPIRA ####[facility], [place] [address]Uemmbbp Director - Ene[place] FarrellCLIA [id number] for [facility]Mount [place], [place] [address] Influenza A / H1 Normal NOT DETECTED [facility] Comment on above: Performed By: #### R ESPIRA ####[facility], [place] [address]Fbyeeky Director - [place]ne[place] FarrellIA [id number] for [facility]Mount [place], [place] [address] Influenza A / H3 Normal NOT DETECTED [facility] Comment on above: Performed By: #### R ESPIRA ####[facility], [place] [address]Jcxovdt Director - [place] FarrellIA [id number] for [facility] [place], [place] [address] Influenza A H1-2009 Normal NOT DETECTED [facility] Comment on above: Performed By: #### R ESPIRA ####[facility], [place] [address]Gtpohft Director - [facility] [id number] for [facility]MoHiggins[place], [place] [address] Influenza B Not detected Normal NOT DETECTED [facility] Comment on above: Performed By: #### R ESPIRA ####[facility], [place] [address]Fevpotw Director - Eneida FarrellIA [id number] for [facility]MoHigg[place], [place] [address] Mycoplasma pneumonia Not detected Normal NOT DETECTED [facility] Comment on above: Performed By: #### R ESPIRA ####[facility], [place] [address]Oneebfc Director - Eneida FarrellCLIA [id number] for [facility]MoHigg[place], [place] [address] Parainfluenza 1 Not detected Normal NOT DETECTED [facility] Comment on above: Performed By: #### R ESPIRA ####[facility]cal Director - [facility] [id number] for [facility] [place], [place] [address] Parainfluenza 2 Not detected Normal NOT DETECTED [facility] Comment on above: Performed By: #### R ESPIRA ####[facility]cal Director - [place] [id number] for [place] [address] [address]Mount [place], [place] [address] Parainfluenza 3 Not detected Normal NOT DETECTED [facility] Comment on above: Performed By: #### R ESPIRA ####[facility]cal Director - [facility] [id number] for [facility]Mount [place], [place] [address] Parainfluenza 4 Not detected Normal NOT DETECTED [facility] Comment on above: Performed By: #### R ESPIRA ####[facility]cal Director - [place] [id number] for [place] [address] [address]Mount [place], [place] [address] Rhinovirus Not detected Normal NOT DETECTED [facility] Comment on above: Performed By: #### R ESPIRA ####[facility]cal Director - [place] [id number] for [place] [address]Mount [place], [place] [address] RSV Ag Ql (Nose) Not detected Normal NOT DETECTED [facility] Comment on above: Performed By: #### R ESPIRA ####[facility]cal Director - [facility] [id number] for [place] [address]Mount [place], [place] [address] SARS-CoV-2 (COVID-19) RNA MIGUEL+probe Ql (Unsp spec) Not detected Normal NOT DETECTED [facility] Comment on above: Performed By: #### R GUICHO ####[place] [address] [address]Medical Director - Ene[place] Pearson [id number] for [address]on RdQuitman, [place] [address] Basic metabolic 2000 panelon 03-06-2023 Anion gap [Moles/Vol] 5.0 mmol/L Normal <=15.0 [facility] Comment on above: Performed By: #### 2 4321-2, #### [facility] [address] [place] [address] [employer] - [place] LAMBIA [id number] Calcium [Mass/Vol] 8.9 mg/dL Normal 8.5-10.1 [facility] Comment on above: Performed By: #### 2 432-2, #### [facility] [address] [place] [address] [employer] - [place] LAMBIA [id number] Chloride [Moles/Vol] 103 mmol/L Normal 98-107 [facility] Comment on above: Performed By: #### 2 432-2, #### [facility] [address] [place] [address] [employer] - [place]ne[place] LAMBIA [id number] CO2 [Moles/Vol] 28 mmol/L Normal 21-32 [facility] Comment on above: Performed By: #### 2 4321-2, #### [facility] [address] [place] [address] [employer] - [place]ne[place] LAMBIA [id number] Creatinine [Mass/Vol] 0.73 mg/dL Normal 0.51-0.95 [facility] Comment on above: Performed By: #### 2 432-2, #### [facility] [address] [place] [address] [employer] - [place]ne[place] LINK [id number] GFR/1.73 sq M.predicted MDRD (S/P/Bld) [Vol rate/Area] mL/min/{1.73_m2} Normal >=59 [facility] Comment on above: Performed By: #### 2 4320-, #### [facility] [address] [place] [address] [employer] - [place] LINK [id number] Glucose [Mass/Vol] 94 mg/dL Normal 74-106 [facility] Comment on above: Performed By: #### 2 4320-03, #### [facility] [address] [place] [address] [employer] - [place]ne[place] LINK [id number] HGFR GLOMERULAR FILTRATIO N RATE INTERPRETATION~The eGFR is calculated using the MDRD equation.~This equation has been validated in patients with chronic kidney disease;~however, it underestimates the GFR in healthy patients with GFR's over 60 mL/min.~The equation is not valid in children under the age of 18.~NOTE: Criteria for Chronic Kidney Disease:~ ~1. Kidney damage for at least three months, as defined~by structural or functional abnormalities of the kidney,~with or without decreased glomerular filtration rate, manifested by either:~* Pathological abnormalities or~* Markers of Kidney damage, including abnormalities in~the composition of the blood or urine or abnormalities in imaging tests.~ ~2. GFR <60 mL/min/1.73 m squared for at least three months, with or without kidney damage.~ Normal [facility] Comment on above: Performed By: #### 2 4320-03, #### [facility] [address] [place] [address] [employer] - [place]ne[place] LINK [id number] Potassium [Moles/Vol] 3.9 mmol/L Normal 3.5-5.1 [facility] Comment on above: Performed By: #### 2 4320-, #### [facility] [address] [place] [address] [employer] - [place]ne[place] LAMBIA [id number] Sodium [Moles/Vol] 136 mmol/L Normal 136-145 [facility] Comment on above: Performed By: #### 2 4320-2, #### [facility] [address] [place] [address] [employer] - [place]ne[place] LAMBIA [id number] Urea nitrogen [Mass/Vol] 6 mg/dL Low 7-17 [facility] Comment on above: Performed By: #### 2 4320-2, #### [address] [place] [address] [employer] - [place] LAMBIA [id number] CBC W Auto Differential pane l (Bld)on 03-06-2023 Basophils (Bld) [#/Vol] 0.06 10*3/uL Normal <=0.70 [facility] Comment on above: Performed By: #### 2 4320-2, #### [facility] [address] [place] [address] [employer] - [place]ne[place] LAMBIA [id number] Basophils/100 WBC (Bld) 1.1 % Normal <=2.0 [facility] Comment on above: Performed By: #### 2 4320-2, #### [address] [place] [address] [employer] - [place]ne[place] LAMBIA [id number] Eosinophils (Bld) [#/Vol] 0.11 10*3/uL Normal <=0.70 [facility] Comment on above: Performed By: #### 2 4320-2, #### [facility] [address] [place] [address] [employer] - [place] LAMBIA [id number] Eosinophils/100 WBC (Bld) 1.9 % Normal <=10.0 [facility] Comment on above: Performed By: #### 2 4320-2, #### [place] [address] [place], [place] [address] [place] [address] [employer] - [place]ne[place] LAMBIA [id number] Erythrocyte distribution width (RBC) [Entitic vol] 44.0 fL Normal 36.4-46.3 [facility] Comment on above: Performed By: #### 2 4320-2, #### [facility] [address] [facility]. [place] [address] [employer] - Ene[place] Franco CLIA [id number] Hematocrit (Bld) [Volume fraction] 46.5 % Normal 37.0-47.0 [facility] Comment on above: Performed By: #### 2 4320-2, #### [address] [place] [address] [employer] - Ene[place] LAMBIA [id number] Hemoglobin (Bld) [Mass/Vol] 14.8 g/dL Normal 12.0-16.0 [facility] Comment on above: Performed By: #### 2 4320-03, #### [place] [address] [facility]. [place] [address] [employer] - Eneida Franco CLIA [id number] Immature granulocytes (Bld) [#/Vol] 0.01 10*3/uL Normal <=0.10 [facility] Comment on above: Performed By: #### 2 4320-03, #### [place] [address] [facility]. [place] [address] [employer] - Eneida Franco CLIA [id number] Immature granulocytes/100 WBC (Bld) 0.20 % Normal <=1.50 [facility] Comment on above: Performed By: #### 2 4320-2, #### [place] [address] [facility]. [place] [address] [employer] - Eneida Franco CLIA [id number] Lymphocytes (Bld) [#/Vol] 1.59 10*3/uL Normal 1.20-3.40 [facility] Comment on above: Performed By: #### 2 4320-, #### [facility] [address] [place] [address] [employer] - [place]ne[place] LAMBIA [id number] Lymphocytes/100 WBC (Bld) 28.1 % Normal 20.0-40.0 [facility] Comment on above: Performed By: #### 2 4320-03, #### [facility] [address] [facility]. [place] [address] [employer] - [place]ne[place] LAMBIA [id number] MCH (RBC) [Entitic mass] 29.0 pg Normal 27.0-31.0 [facility] Comment on above: Performed By: #### 2 4320-03, #### [place] [address] [facility]. [place] [address] [employer] - Ene[place] LINK [id number] MCHC (RBC) [Mass/Vol] 31.8 g/dL Low 32.0-36.0 [facility] Comment on above: Performed By: #### 2 4320-03, #### [place] [address] [employer] - Eneida LINK [id number] MCV (RBC) [Entitic vol] 91.0 fL Normal 80.0-100.0 [facility] Comment on above: Performed By: #### 2 4320-03, #### [place] [address] [facility]. [place] [address] [employer] - Ene[place] LAMBIA [id number] Monocytes (Bld) [#/Vol] 0.51 10*3/uL Normal 0.10-0.60 [facility] Comment on above: Performed By: #### 2 4320-03, #### [facility] [address] [facility]. [place] [address] [employer] - [place] LAMBIA [id number] Monocytes/100 WBC (Bld) 9.0 % High <=8.0 [facility] Comment on above: Performed By: #### 2 4320-2, #### [facility] [address] [place] [address] [employer] - [place] LAMBIA [id number] Neutrophils (Bld) [#/Vol] 3.37 10*3/uL Normal 1.40-6.50 [facility] Comment on above: Performed By: #### 2 4320-2, #### [facility] [address] [place] [address] [employer] - [place] LAMBIA [id number] Neutrophils/100 WBC (Bld) 59.7 % Normal 50.0-70.0 [facility] Comment on above: Performed By: #### 2 4320-, #### [address] [place] [address] [employer] - [place] LAMBIA [id number] Nucleated RBC (Bld) [#/Vol] 0.00 10*3/uL Normal <=0.10 [facility] Comment on above: Performed By: #### 2 4320-2, #### [facility] [address] [place] [address] [employer] - [place] LAMBIA [id number] Platelet mean volume (Bld) [Entitic vol] 12.3 fL Normal 9.0-13.0 [facility] Comment on above: Performed By: #### 2 4320-2, #### [facility] [address] [place] [address] [employer] - [place] LAMBIA [id number] Platelets (Bld) [#/Vol] 192 10*3/uL Normal 130-400 [facility] Comment on above: Performed By: #### 2 4320-2, #### [address] [place] [address] [employer] - [place] LAMBIA [id number] RBC (Bld) [#/Vol] 5.11 10*6/uL Normal 4.00-6.30 [facility] Comment on above: Performed By: #### 2 4321-2, #### [facility] [address] [place] [address] [employer] - [place]ne[place] LINK [id number] WBC (Bld) [#/Vol] 5.65 10*3/uL Normal 4.80-10.80 [facility] Comment on above: Performed By: #### 2 432-2, #### [facility] [address] [place] [address] [employer] - [place]ne[place] LINK [id number] MAGNESIUMon 03-06-2023 Magnesium [Mass/Vol] 2.3 mg/dL Normal 1.6-2.6 [facility] Comment on above: Performed By: #### 2 432-2, #### [facility] [address] [place] [address] [employer] - [place]ne[place] LINK [id number] KEPPRAon 02-09-2023 levETIRAcetam [Mass/Vol] 30.4 ug/mL Normal 10.0-40.0 [facility] Comment on above: Performed By: ###SEKOU REESE #### Performed for [facility] [address] [address] [place], [place] [address] PHENOBARBITALon 02-08-2023 Phenobarbital, Serum 13 ug/mL Low 15-40 [facility] Comment on above: Result Comment: Dete ction Limit = 3 Performed By: #### SEKOU BARRETT #### Performed for [facility] [address] [place], [place] [address] CBC W Auto Differential pane l (Bld)on 02-07-2023 Basophils (Bld) [#/Vol] 0.04 10*3/uL Normal <=0.70 [facility] Comment on above: Performed By: #### 5 7021-8 ####[facility] [address]Medical Director - [place]ne[place] Pearson [id number] Basophils/100 WBC (Bld) 0.7 % Normal <=2.0 [facility] Comment on above: Performed By: #### 5 7021-8 ####[address] Director - Eneidaarnie CuencaIA [id number] Eosinophils (Bld) [#/Vol] 0.18 10*3/uL Normal <=0.70 [facility] Comment on above: Performed By: #### 5 7021-8 ####[address] Director - [place] CuencaIA [id number] Eosinophils/100 WBC (Bld) 3.2 % Normal <=10.0 [facility] Comment on above: Performed By: #### 5 7021-8 ####[address] Director - [place] Pearson [id number] Erythrocyte distribution width (RBC) [Entitic vol] 44.8 fL Normal 36.4-46.3 [facility] Comment on above: Performed By: #### 5 7021-8 ####[address] Director - Eneidaarnie FrancoCLJENNIFER [id number] Hematocrit (Bld) [Volume fraction] 39.5 % Normal 37.0-47.0 [facility] Comment on above: Performed By: #### 5 7021-8 ####[place] [address] Director - [place]ne[place] SalvadorCLIA [id number] Hemoglobin (Bld) [Mass/Vol] 12.8 g/dL Normal 12.0-16.0 [facility] Comment on above: Performed By: #### 5 7021-8 ####[address] Director - Eneidaarnie FrancoCLIA [id number] Immature granulocytes (Bld) [#/Vol] 0.01 10*3/uL Normal <=0.10 [facility] Comment on above: Performed By: #### 5 7021-8 ####[facility] Director - [place]ne[place] Pearson [id number] Immature granulocytes/100 WBC (Bld) 0.20 % Normal <=1.50 [facility] Comment on above: Performed By: #### 5 7021-8 ####[facility] Director - [place] Pearson [id number] Lymphocytes (Bld) [#/Vol] 1.92 10*3/uL Normal 1.20-3.40 [facility] Comment on above: Performed By: #### 5 7021-8 ####[place] [address] Director - Ene[place] Pearson [id number] Lymphocytes/100 WBC (Bld) 33.9 % Normal 20.0-40.0 [facility] Comment on above: Performed By: #### 5 7021-8 ####[facility] Director - [place]ne[place] Pearson [id number] MCH (RBC) [Entitic mass] 29.6 pg Normal 27.0-31.0 [facility] Comment on above: Performed By: #### 5 7021-8 ####[facility] Director - Enedia Pearson [id number] MCHC (RBC) [Mass/Vol] 32.4 g/dL Normal 32.0-36.0 [facility] Comment on above: Performed By: #### 5 7021-8 ####[facility] Director - [place] Pearson [id number] MCV (RBC) [Entitic vol] 91.2 fL Normal 80.0-100.0 [facility] Comment on above: Performed By: #### 5 7021-8 ####[facility] Director - Eneida TayrellCLIA [id number] Monocytes (Bld) [#/Vol] 0.48 10*3/uL Normal 0.10-0.60 [facility] Comment on above: Performed By: #### 5 7021-8 ####[facility] Director - Eneida FarrellCLIA [id number] Monocytes/100 WBC (Bld) 8.5 % High <=8.0 [facility] Comment on above: Performed By: #### 5 7021-8 ####[place] [address] Director - Ene[place] TayrellCLIA [id number] Neutrophils (Bld) [#/Vol] 3.03 10*3/uL Normal 1.40-6.50 [facility] Comment on above: Performed By: #### 5 7021-8 ####[place] [address] Director - [place]ne[place] aTyrellCLIA [id number] Neutrophils/100 WBC (Bld) 53.5 % Normal 50.0-70.0 [facility] Comment on above: Performed By: #### 5 7021-8 ####[facility] Director - Eneidaarnie CrossrellCLIA [id number] Nucleated RBC (Bld) [#/Vol] 0.00 10*3/uL Normal <=0.10 [facility] Comment on above: Performed By: #### 5 7021-8 ####[facility] Director - Eneidaarnie CrossrellCLIA [id number] Platelet mean volume (Bld) [Entitic vol] 12.5 fL Normal 9.0-13.0 [facility] Comment on above: Performed By: #### 5 7021-8 ####[place] [address] Director - Ene[place] Pearson [id number] Platelets (Bld) [#/Vol] 168 10*3/uL Normal 130-400 [facility] Comment on above: Performed By: #### 5 7021-8 ####[facility] Director - Ene[place] Pearson [id number] RBC (Bld) [#/Vol] 4.33 10*6/uL Normal 4.00-6.30 [facility] Comment on above: Performed By: #### 5 7021-8 ####[facility] Director - Ene[place] Pearson [id number] WBC (Bld) [#/Vol] 5.66 10*3/uL Normal 4.80-10.80 [facility] Comment on above: Performed By: #### 5 7021-8 ####[facility] Director - [place]ne[place] Pearson [id number] Comprehensive metabolic 2000 panelon 02-07-2023 Albumin [Mass/Vol] 3.0 g/dL Low 3.4-5.0 [facility] Comment on above: Performed By: #### 2 4321-2, #### [facility] [address] [place] [address] [employer] - [place] LINK [id number] ALP [Catalytic activity/Vol] 97 U/L Normal 50-136 [facility] Comment on above: Performed By: #### 2 4321-2, #### [facility] [address] [place] [address] [employer] - [place] LINK [id number] ALT [Catalytic activity/Vol] 12 U/L Low 14-59 [facility] Comment on above: Performed By: #### 2 4321-2, #### [facility] [address] [place] [address] [employer] - [place] LAMBIA [id number] Anion gap [Moles/Vol] 3.0 mmol/L Normal <=15.0 [facility] Comment on above: Performed By: #### 2 4320-2, #### [facility] [address] [place] [address] [employer] - [place] LAMBIA [id number] AST [Catalytic activity/Vol] 12 U/L Low 15-37 [facility] Comment on above: Result Comment: Spec imen slightly hemolyzed. Test results may be affected. Performed By: #### 2 4320-2, #### [facility] [address] [place] [address] [employer] - [place] LINK [id number] Bilirubin [Mass/Vol] 0.4 mg/dL Normal 0.2-1.0 [facility] Comment on above: Performed By: #### 2 4320-2, #### [facility] [address] [place] [address] [employer] - [place] LAMBIA [id number] Calcium [Mass/Vol] 8.7 mg/dL Normal 8.5-10.1 [facility] Comment on above: Performed By: #### 2 4320-2, #### [facility] [address] [place] [address] [employer] - [place] LAMBIA [id number] Chloride [Moles/Vol] 109 mmol/L High 98-107 [facility] Comment on above: Performed By: #### 2 4320-2, #### [facility] [address] [place] [address] [employer] - [place] LAMBIA [id number] CO2 [Moles/Vol] 27 mmol/L Normal 21-32 [facility] Comment on above: Performed By: #### 2 4320-2, #### [facility] [address] [place] [address] [employer] - [place] LINK [id number] Creatinine [Mass/Vol] 0.67 mg/dL Normal 0.51-0.95 [facility] Comment on above: Performed By: #### 2 4320-03, #### [facility] [address] [place] [address] [employer] - [place] LINK [id number] GFR/1.73 sq M.predicted MDRD (S/P/Bld) [Vol rate/Area] mL/min/{1.73_m2} Normal >=59 [facility] Comment on above: Performed By: #### 2 4320-03, #### [facility] [address] [place] [address] [employer] - [place] LINK [id number] Glucose [Mass/Vol] 76 mg/dL Normal 74-106 [facility] Comment on above: Performed By: #### 2 4320-03, #### [facility] [address] [place] [address] [employer] - [place] LINK [id number] HGFR GLOMERULAR FILTRATIO N RATE INTERPRETATION~The eGFR is calculated using the MDRD equation.~This equation has been validated in patients with chronic kidney disease;~however, it underestimates the GFR in healthy patients with GFR's over 60 mL/min.~The equation is not valid in children under the age of 18.~NOTE: Criteria for Chronic Kidney Disease:~ ~1. Kidney damage for at least three months, as defined~by structural or functional abnormalities of the kidney,~with or without decreased glomerular filtration rate, manifested by either:~* Pathological abnormalities or~* Markers of Kidney damage, including abnormalities in~the composition of the blood or urine or abnormalities in imaging tests.~ ~2. GFR <60 mL/min/1.73 m squared for at least three months, with or without kidney damage.~ Normal [facility] Comment on above: Performed By: #### 2 4320-03, #### [facility] [address] [place] [address] [employer] - [place] LINK [id number] Potassium [Moles/Vol] 4.4 mmol/L Normal 3.5-5.1 [facility] Comment on above: Result Comment: Spec imen slightly hemolyzed. Test results may be affected. Performed By: #### 2 4321-2, 83760-0 #### [facility] [address] [place] [address] [employer] CLIA [id number] Protein [Mass/Vol] 6.2 g/dL Low 6.4-8.2 [facility] Comment on above: Performed By: #### 2 4320-2, 83878-7 #### [facility] [address] [place] [address] [employer] - [facility] CLIA [id number] Sodium [Moles/Vol] 139 mmol/L Normal 136-145 [facility] Comment on above: Performed By: #### 2 4320-2, 11419-4 #### [facility] [address] [place] [address] [employer] - [facility] CLIA [id number] Urea nitrogen [Mass/Vol] 7 mg/dL Normal 7-17 [facility] Comment on above: Performed By: #### 2 432-2, #### [facility] [address] [place] [address] [employer] - [facility] CLIA [id number] Bacteria Ur Culton 3 Bacteria identified Cx Nom (U) Culture, Urine Status = F >10,000 cfu/mL Mixed bacterial reta, results suggest contamination Normal [facility] Comment on above: Performed By: #### 6 30-4 #### [facility] [address] [place] [address] Urinalysis dipstick W Reflex Microscopic panel (U)on 05-04-2022 Bacteria, Urine Occasional Abnormal None [facility] Comment on above: Performed By: #### 5 7020-0 #### [facility] [address] [place] [address] Bilirubin, Urine Negative Normal Negative [facility] Comment on above: Performed By: #### 5 7019-0 #### [facility] [address] [place] [address] Blood, Urine Negative Normal Negative [facility] Comment on above: Performed By: #### 5 7019-0 #### [facility] [address] [place] [address] Clarity (U) Hazy Abnormal Clear [facility] Comment on above: Performed By: #### 5 7019-0 #### [facility] [address] [place] [address] Color (U) Yellow Normal Yellow [facility] Comment on above: Performed By: #### 5 7019-0 #### [facility] [address] [place] [address] Glucose Ql (U) Normal Normal Normal [facility] Comment on above: Performed By: #### 7019-0 #### [facility] [address] [place] [address] Ketones Ql (U) Negative Normal Negative [facility] Comment on above: Performed By: #### 5 7019-0 #### [facility] [address] [place] [address] Leukocytes, Urine 500 WBCs/mcL Abnormal Negative [facility] Comment on above: Performed By: #### 5 7019-0 #### [facility] [address] [place] [address] Mucus, UA Rare Abnormal None [facility] Comment on above: Performed By: #### 5 20-0 #### [facility] [address] [place] [address] Nitrite, Urine Negative Normal Negative [facility] Comment on above: Performed By: #### 5 7019-0 #### [facility] [address] [place] [address] pH (U) 6.0 [pH] Normal 5.0-8.0 [facility] Comment on above: Performed By: #### 5 70-0 #### [facility] [address] [place] [address] Protein, Urine Negative Normal Negative [facility] Comment on above: Performed By: #### 5 7019-0 #### [facility] [address] [place] [address] RBC LM.HPF (Urine sed) [#/Area] 1 /[HPF] Normal 0-5 [facility] Comment on above: Performed By: #### 5 70-0 #### [facility] [address] [place] [address] Specific Swengel Urine 1.017 Normal 1.002-1.030 [facility] Comment on above: Performed By: #### 5 7019-0 #### [facility] [address] [place] [address] Squamous Epithelial, Urine Rare Abnormal None [facility] Comment on above: Performed By: #### 5 70-0 #### [facility] [address] [place] [address] Trichomonas, Urine Rare Abnormal None [facility] Comment on above: Performed By: #### 5 70-0 #### [facility] [address] [place] [address] Urobilinogen, Urine Normal Normal Normal [facility] Comment on above: Performed By: #### 5 7020-0 #### [facility] [address] [place] [address] WBC LM.HPF (Urine sed) [#/Area] 32 /[HPF] High 0-5 [facility] Comment on above: Performed By: #### 5 7020-0 #### [facility] [place] [address] Basic metabolic 2000 panelon 05-03-2022 Anion gap [Moles/Vol] 7 mmol/L 6 - [address] [facility] Self-A-r-T Calcium [Mass/Vol] 9.1 mg/dL 8.9 - 10. 3 mg/dL [employer] Chloride [Moles/Vol] 109 mmol/L High 98 - 10 7 mmol/L [employer] CO2 [Moles/Vol] 23 mmol/L 22 - 32 mmol/L [employer] Creatinine [Mass/Vol] 0.51 mg/dL Low 0.60 - 1.30 mg/dL [employer] GFR/1.73 sq M.predicted among non-blacks MDRD (S/P/Bld) [Vol rate/Area] 123 mL/min/{1.73_m2} - PINF [employer] Comment on above: Effective December 05, 2021, calculation based on the Chronic Kidney Disease Epidemiology Collaboration (CKD-EPI) equation refit without adjustment for race. Glucose [Mass/Vol] 82 mg/dL 70 - 99 mg/dL [employer] Potassium [Moles/Vol] 3.8 mmol/L 3.6 - 5.1 mmol/L [employer] Sodium [Moles/Vol] 139 mmol/L 136 - 145 mmol/L [employer] Urea nitrogen [Mass/Vol] 7 mg/dL Low 8 - 20 mg/dL [employer] Urea nitrogen/Creatinine [Mass ratio] 13.7 mg/mg 12.0 - 20.[address] [employer] [address] HEAD WO CONTRASTon 2022 CT HEAD WO CONTRAST EXAMINATION TYPE: CT HEAD WO CONTRAST DATE OF EXAM : 05/03/2022 6:51 PM HISTORY: altered mental status, COMPARISON: NONE FINDINGS: Cerebral atrophy. Periventricular white matter change compatible with chronic small vessel ischemia. No hydrocephalus. Cisternal spaces are normal in size and morphology. An area of decreased attenuation noted in the posterior right parietal lobe image 16 of series 2. This area measures 1.4 x 1.4 cm. Paranasal sinuses and mastoid air cells are unremarkable. No abnormality of either orbit or globe. IMPRESSION: No acute intracranial hemorrhage or mass effect. Indeterminant 1.4 cm hypoattenuating lesion in the posterior right parietal lobe. This could represent age indeterminant infarct. Follow-up with MRI is recommended. -------- FINAL REPORT -------- Dictated By: Caesar Otoole Dictated Date: 05/03/2022 20:27 Assigned Physician: Caesar Otoole Reviewed and Electronically Signed By: Caesar Otoole Signed Date: 05/03/2022 20:30 Workstation ID: [id number] Transcribed By: Self Edit Transcribed Date: 05/03/2022 20:[address] [facility] CT Head limited WO contrasto n 05-03-2022 No acute intracrania l hemorrhage or mass effect. Indeterminant 1.4 cm hypoattenuating lesion in the posterior right parietal lobe. This could represent age indeterminant infarct. Follow-up with MRI is recommended. -------- FINAL REPORT -------- Dictated By: Caesar Otoole Dictated Date: 05/03/2022 20:27 Assigned Physician: Caesar Otoole Reviewed and Electronically Signed By: Caesar Otoole Signed Date: 05/03/2022 20:30 Workstation ID: [id number] Transcribed By: Self Edit Transcribed Date: 05/03/2022 20:27 POWERSCRIBE EXAMINATION TYPE: CT HEAD WO CONTRAST DATE OF EXAM : 05/03/2022 6:51 PM HISTORY: altered mental status, COMPARISON: NONE FINDINGS: Cerebral atrophy. Periventricular white matter change compatible with chronic small vessel ischemia. No hydrocephalus. Cisternal spaces are normal in size and morphology. An area of decreased attenuation noted in the posterior right parietal lobe image 16 of series 2. This area measures 1.4 x 1.4 cm. Paranasal sinuses and mastoid air cells are unremarkable. No abnormality of either orbit or globe. POWERSCaesar Kyle M D - 05/03/2022 EXAMINATION TYPE: CT HEAD WO CONTRAST DATE OF EXAM : 05/03/2022 6:51 PM HISTORY: altered mental status, COMPARISON: NONE FINDINGS: Cerebral atrophy. Periventricular white matter change compatible with chronic small vessel ischemia. No hydrocephalus. Cisternal spaces are normal in size and morphology. An area of decreased attenuation noted in the posterior right parietal lobe image 16 of series 2. This area measures 1.4 x 1.4 cm. Paranasal sinuses and mastoid air cells are unremarkable. No abnormality of either orbit or globe. IMPRESSION: No acute intracranial hemorrhage or mass effect. Indeterminant 1.4 cm hypoattenuating lesion in the posterior right parietal lobe. This could represent age indeterminant infarct. Follow-up with MRI is recommended. -------- FINAL REPORT -------- Dictated By: Caesar Otoole Dictated Date: 05/03/2022 20:27 Assigned Physician: Caesar Otoole Reviewed and Electronically Signed By: Caesar Otoole Signed Date: 05/03/2022 20:30 Workstation ID: [id number] Transcribed By: Self Edit Transcribed Date: 05/03/2022 20:27 [facility] Self-A-r-T Radiology Study observation (narrative) [employer] CT Head limited WO contrastO rdered By: Caesar Otoole on 05-03-2022 [employer] Work Phone: FLUAV+FLUBV Ag Ql (Unsp spec )on 05-03-2022 FLUAV Ag Ql (Nph) Negative Negative [employer] FLUBV Ag Ql (Nph) Negative Negative [employer] Interpretation and review of laboratory results Normal [facility] Weembaity Self-A-r-T FLUAV+FLUBV Ag Spec Qlon FLUAV+FLUBV Ag Ql (Unsp spec) Influenza A AG Status = F Negative Influenza B AG Status = F Negative Normal Negative [facility] Comment on above: Performed By: #### 2 4015-0 #### [facility] [address] [place] [address] Hemogram and platelets WO di fferential panel (Bld)on 05-03-2022 Basophils (Bld) [#/Vol] 0.03 10*3/uL [employer] Basophils/100 WBC (Bld) 0.6 % 0.0 - 2.0 % [employer] Eosinophils (Bld) [#/Vol] 0.08 10*3/uL [employer] Eosinophils/100 WBC (Bld) 1.5 % 0.0 - 7.0 % [facility] Erythrocyte distribution width (RBC) [Ratio] 13.1 % 11.0 - 14.8 % [facility] Hematocrit (Bld) [Volume fraction] 44.5 % 34.3 - 47.9 % [facility] Hemoglobin (Bld) [Mass/Vol] 13.9 g/dL 12.0 - 16.0 g/dL [facility] Immature granulocytes (Bld) [#/Vol] 0.01 10*3/uL [facility] Immature granulocytes/100 WBC (Bld) 0.2 % 0.0 - 1.2 % [facility] Interpretation and review of laboratory results Abnormal [facility] Lymphocytes (Bld) [#/Vol] 1.57 10*3/uL [facility] Lymphocytes/100 WBC (Bld) 30.1 % 17.9 - 49.6 % [facility] MCH (RBC) [Entitic mass] 30.5 pg [facility] MCHC (RBC) [Mass/Vol] 31.2 g/dL 30.8 - 35.3 g/dL [facility] MCV (RBC) [Entitic vol] 97.6 fL High [facility] Monocytes (Bld) [#/Vol] 0.42 10*3/uL [facility] Monocytes/100 WBC (Bld) 8.0 % 4.0 - 23.0 % [facility] Neutrophils (Bld) [#/Vol] 3.11 10*3/uL [facility] Neutrophils/100 WBC (Bld) 59.6 % 38.1 - 75.5 % [facility] Platelet mean volume (Bld) [Entitic vol] 11.1 fL [facility] Platelets (Bld) [#/Vol] 230 10*3/uL [facility] RBC (Bld) [#/Vol] 4.56 10*6/uL [facility] WBC (Bld) [#/Vol] 5.2 10*3/uL [facility] Basophils (Bld) [#/Vol] 0.03 10*3/uL Normal 0.00-0.20 [facility] Comment on above: Performed By: #### 2 4317-0 #### [facility] [address] [place] [address] Basophils/100 WBC (Bld) 0.6 % Normal 0.0-2.0 [facility] Comment on above: Performed By: #### 2 4317-0 #### [facility] [address] [place] [address] Eosinophils (Bld) [#/Vol] 0.08 10*3/uL Normal 0.00-0.70 [facility] Comment on above: Performed By: #### 2 4317-0 #### [facility] [address] [place] [address] Eosinophils/100 WBC (Bld) 1.5 % Normal 0.0-7.0 [facility] Comment on above: Performed By: #### 2 4317-0 #### [facility] [address] [place] [address] Erythrocyte distribution width (RBC) [Ratio] 13.1 % Normal 11.0-14.8 [facility] Comment on above: Performed By: #### 2 4317-0 #### [facility] [address] [place] [address] Hematocrit (Bld) [Volume fraction] 44.5 % Normal 34.3-47.9 [facility] Comment on above: Performed By: #### 2 4317-0 #### [facility] [address] [place] [address] Hemoglobin (Bld) [Mass/Vol] 13.9 g/dL Normal 12.0-16.0 [facility] Comment on above: Performed By: #### 2 4317-0 #### [facility] [address] [place] [address] Immature granulocytes (Bld) [#/Vol] 0.01 10*3/uL Normal 0.00-0.10 [facility] Comment on above: Performed By: #### 2 4317-0 #### [facility] [address] [place] [address] Immature granulocytes/100 WBC (Bld) 0.2 % Normal 0.0-1.2 [facility] Comment on above: Performed By: #### 2 4317-0 #### [facility] [address] [place] [address] Lymphocytes (Bld) [#/Vol] 1.57 10*3/uL Normal 1.00-4.80 [facility] Comment on above: Performed By: #### 2 7-0 #### [facility] [address] [place] [address] Lymphocytes/100 WBC (Bld) 30.1 % Normal 17.9-49.6 [facility] Comment on above: Performed By: #### 2 4317-0 #### [facility] [address] [place] [address] MCH 30.5 pcg Normal 27.0-34.0 [facility] Comment on above: Performed By: #### 2 4317-0 #### [facility] [address] [place] [address] MCHC (RBC) [Mass/Vol] 31.2 g/dL Normal 30.8-35.3 [facility] Comment on above: Performed By: #### 2 4317-0 #### [facility] [address] [place] [address] MCV (RBC) [Entitic vol] 97.6 fL High 80.0-97.0 [facility] Comment on above: Performed By: #### 2 4317-0 #### [facility] [address] [place] [id number] Monocytes (Bld) [#/Vol] 0.42 10*3/uL Normal 0.00-0.90 [facility] Comment on above: Performed By: #### 2 4317-0 #### [facility] [address] [place] [address] Monocytes/100 WBC (Bld) 8.0 % Normal 4.0-23.0 [facility] Comment on above: Performed By: #### 2 4317-0 #### [facility] [address] [place] [address] Neutrophils Absolute 3.11 K/mcL Normal 1.80-7.70 [facility] Comment on above: Performed By: #### 2 7-0 #### [facility] [address] [place] [address] Neutrophils/100 WBC (Bld) 59.6 % Normal 38.1-75.5 [facility] Comment on above: Performed By: #### 2 4317-0 #### [facility] [address] [place] [address] Platelet mean volume (Bld) [Entitic vol] 11.1 fL Normal 6.2-12.1 [facility] Comment on above: Performed By: #### 2 7-0 #### [facility] [address] [place] [address] Platelets (Bld) [#/Vol] 230 10*3/uL Normal 142-424 [facility] Comment on above: Performed By: #### 2 4317-0 #### [facility] [address] [place] [address] RBC (Bld) [#/Vol] 4.56 10*6/uL Normal 3.74-5.34 [facility] Comment on above: Performed By: #### 2 4317-0 #### [facility] [address] [place] [address] WBC (Bld) [#/Vol] 5.2 10*3/uL Normal 4.6-10.2 [facility] Comment on above: Performed By: #### 2 4317-0 #### [facility] [address] [place] [address] Hepatic function 2000 panelo n 05-03-2022 Albumin [Mass/Vol] 3.5 g/dL 3.5 - 4.8 g/dL [facility] ALP [Catalytic activity/Vol] 54 U/L [facility] ALT [Catalytic activity/Vol] 9 U/L [facility] AST [Catalytic activity/Vol] 11 U/L Low [facility] Bilirubin [Mass/Vol] 0.4 mg/dL 0.3 - 1 .2 mg/dL [facility] Bilirubin.direct [Mass/Vol] mg/dL NINF - 0.5 mg/dL [facility] Bilirubin.indirect [Mass/Vol] [facility] Comment on above: Unable to calculate Indirect Bilirubin. Protein [Mass/Vol] 5.9 g/dL Low 6.1 - 7.9 g/dL [facility] Lipaseon 05-03-2022 Lipase [Catalytic activity/Vol] 37 U/L [facility] Magnesiumon 05-03-2022 Magnesium [Mass/Vol] 1.8 mg/dL 1.8 - 2 .5 mg/dL [facility] No Panel Informationon 05-03 Interpretation and review of laboratory results Abnormal [facility] Interpretation and review of laboratory results Normal [facility] No acute osseous abnormality of the right hip or pelvis. Mild left lung base opacity compatible with atelectasis or infiltrate. -------- FINAL REPORT -------- Dictated By: Caesar Otoole Dictated Date: 05/03/2022 19:25 Assigned Physician: Caesar Otoole Reviewed and Electronically Signed By: Caesar Otoole Signed Date: 05/03/2022 19:27 Workstation ID: [id number] Transcribed By: Self Edit Transcribed Date: 05/03/2022 19:25 POWERSCRIBE EXAMINATION TYPE: XR FEMUR 2+ VIEWS RIGHT, XR CHEST 1 VIEW, XR HIP 2-3 VIEWS RIGHT DATE OF EXAM : 05/03/2022 7:20 PM HISTORY: Seizure, failure to thrive, lethargic, leg and hip pain COMPARISON: NONE FINDINGS: Right hip: Normal osseous mineralization and alignment. No acute fracture or subluxation. No cortical erosive change or periosteal reaction. AP pelvis: Normal osseous mineralization and alignment. There is no acute fracture or subluxation. No cortical erosive change or periosteal reaction. Sacroiliac joints and symphysis pubis are not diastatic. AP chest: Cardiac and mediastinal silhouettes are unremarkable. Right lung is clear. No pleural effusion. Patchy left lung base opacity. POWERSCRIBE Caesar Otoole M D - 05/03/2022 EXAMINATION TYPE: XR FEMUR 2+ VIEWS RIGHT, XR CHEST 1 VIEW, XR HIP 2-3 VIEWS RIGHT DATE OF EXAM : 05/03/2022 7:20 PM HISTORY: Seizure, failure to thrive, lethargic, leg and hip pain COMPARISON: NONE FINDINGS: Right hip: Normal osseous mineralization and alignment. No acute fracture or subluxation. No cortical erosive change or periosteal reaction. AP pelvis: Normal osseous mineralization and alignment. There is no acute fracture or subluxation. No cortical erosive change or periosteal reaction. Sacroiliac joints and symphysis pubis are not diastatic. AP chest: Cardiac and mediastinal silhouettes are unremarkable. Right lung is clear. No pleural effusion. Patchy left lung base opacity. IMPRESSION: No acute osseous abnormality of the right hip or pelvis. Mild left lung base opacity compatible with atelectasis or infiltrate. -------- FINAL REPORT -------- Dictated By: Caesar Otoole Dictated Date: 05/03/2022 19:25 Assigned Physician: Caesar Otoole Reviewed and Electronically Signed By: Caesar Otoole Signed Date: 05/03/2022 19:27 Workstation ID: [id number] Transcribed By: Self Edit Transcribed Date: 05/03/2022 19:25 [facility] Radiology Study observation (narrative) [facility] SARS-CoV-2 (COVID-19) RNA NA A+probe Ql (Resp)on 05-03-2022 Interpretation and review of laboratory results Normal [facility] SARS-CoV-2 (COVID-19) RdRp gene MIGUEL+probe Ql (Resp) Not detected Not Detected [facility] SARS-CoV-2 RNA Resp Ql MIGUEL+p robeon 05-03-2022 SARS-CoV-2 (COVID-19) RNA MIGUEL+probe Ql (Resp) Not detected Normal Not Detected [facility] Comment on above: Performed By: #### 9 [id number] #### [facility] [address] [place] [address] TSH Qnon 05-03-2022 Interpretation and review of laboratory results Normal [facility] Thyroid stimulating hormoneo n 05-03-2022 TSH Qn 3.32 m[IU]/L [facility] Tropinin I.cardiac panel Hig h sensitivity methodon 05-03-2022 Interpretation and review of laboratory results Normal [facility] Troponin I.cardiac High sensitivity method [Mass/Vol] 8 ng/L NINF - 14 ng/L [facility] TSH Qn 3.32 m[IU]/L Normal 0.45-5.33 [facility] Comment on above: Performed By: #### 8 [id number] #### [facility] [address] [place] [address] Urinalysis dipstick W Reflex Microscopic panel (U)Ordered By: Lexy Fierro on 05-03-2022 Bacteria LM.HPF (Urine sed) [#/Area] Occasional Abnormal None /HPF [facility] Bilirubin Ql (U) Negative Negative mg/dL [facility] Clarity (U) Hazy Abnormal Clear [facility] Color (U) Yellow Yellow [facility] Epithelial cells.squamous LM.HPF (Urine sed) [#/Area] Rare Abnormal None /LPF [facility] Glucose Ql (U) Normal Normal mg/dL [facility] Hemoglobin Ql (U) Negative Negative [facility] Interpretation and review of laboratory results Abnormal [facility] Ketones (U) [Mass/Vol] Negative Negative mg/dL [facility] Leukocyte esterase Test strip Ql (U) 500 Abnormal Negative WBCs/mcL [facility] Mucus Ql (Urine sed) Rare Abnormal None /LPF [facility] Nitrite Ql (U) Negative Negative [facility] pH (U) 6.0 [pH] 5.0 - 8.0 pH [facility] Protein (U) [Mass/Vol] Negative Negative mg/dL [facility] RBC LM.HPF (Urine sed) [#/Area] 1 /[HPF] [facility] Specific gravity (U) [Rel density] 1.017 1.002 - 1.030 [facility] Trichomonas sp LM.HPF (Urine sed) [#/Area] Rare Abnormal None /HPF [facility] Urobilinogen (U) [Mass/Vol] Normal Normal mg/dL [facility] WBC LM.HPF (Urine sed) [#/Area] 32 /[HPF] High [facility] XR CHEST 1 VIEWon 05-03-2022 XR CHEST 1 VIEW EXAMINATION TYPE: XR FEMUR 2+ VIEWS RIGHT, XR CHEST 1 VIEW, XR HIP 2-3 VIEWS RIGHT DATE OF EXAM : 05/03/2022 7:20 PM HISTORY: Seizure, failure to thrive, lethargic, leg and hip pain COMPARISON: NONE FINDINGS: Right hip: Normal osseous mineralization and alignment. No acute fracture or subluxation. No cortical erosive change or periosteal reaction. AP pelvis: Normal osseous mineralization and alignment. There is no acute fracture or subluxation. No cortical erosive change or periosteal reaction. Sacroiliac joints and symphysis pubis are not diastatic. AP chest: Cardiac and mediastinal silhouettes are unremarkable. Right lung is clear. No pleural effusion. Patchy left lung base opacity. IMPRESSION: No acute osseous abnormality of the right hip or pelvis. Mild left lung base opacity compatible with atelectasis or infiltrate. -------- FINAL REPORT -------- Dictated By: Caesar Otoole Dictated Date: 05/03/2022 19:25 Assigned Physician: Caesar Otoole Reviewed and Electronically Signed By: Caesar Otoole Signed Date: 05/03/2022 19:27 Workstation ID: [id number] Transcribed By: Self Edit Transcribed Date: 05/03/2022 19:[address] [facility] XR FEMUR 2+ VIEWS RIGHTon XR FEMUR 2+ VIEWS RIGHT EXAMINATION TYPE: XR FEMUR 2+ VIEWS RIGHT, XR CHEST 1 VIEW, XR HIP 2-3 VIEWS RIGHT DATE OF EXAM : 05/03/2022 7:20 PM HISTORY: Seizure, failure to thrive, lethargic, leg and hip pain COMPARISON: NONE FINDINGS: Right hip: Normal osseous mineralization and alignment. No acute fracture or subluxation. No cortical erosive change or periosteal reaction. AP pelvis: Normal osseous mineralization and alignment. There is no acute fracture or subluxation. No cortical erosive change or periosteal reaction. Sacroiliac joints and symphysis pubis are not diastatic. AP chest: Cardiac and mediastinal silhouettes are unremarkable. Right lung is clear. No pleural effusion. Patchy left lung base opacity. IMPRESSION: No acute osseous abnormality of the right hip or pelvis. Mild left lung base opacity compatible with atelectasis or infiltrate. -------- FINAL REPORT -------- Dictated By: Caesar Otoole Dictated Date: 05/03/2022 19:25 Assigned Physician: Caesar Otoole Reviewed and Electronically Signed By: Caesar Otoole Signed Date: 05/03/2022 19:27 Workstation ID: [id number] Transcribed By: Self Edit Transcribed Date: 05/03/2022 19:[address] [facility] XR HIP 2-3 VIEWS RIGHTon XR HIP 2-3 VIEWS RIGHT EXAMINATION TYPE: XR FEMUR 2+ VIEWS RIGHT, XR CHEST 1 VIEW, XR HIP 2-3 VIEWS RIGHT DATE OF EXAM : 05/03/2022 7:20 PM HISTORY: Seizure, failure to thrive, lethargic, leg and hip pain COMPARISON: NONE FINDINGS: Right hip: Normal osseous mineralization and alignment. No acute fracture or subluxation. No cortical erosive change or periosteal reaction. AP pelvis: Normal osseous mineralization and alignment. There is no acute fracture or subluxation. No cortical erosive change or periosteal reaction. Sacroiliac joints and symphysis pubis are not diastatic. AP chest: Cardiac and mediastinal silhouettes are unremarkable. Right lung is clear. No pleural effusion. Patchy left lung base opacity. IMPRESSION: No acute osseous abnormality of the right hip or pelvis. Mild left lung base opacity compatible with atelectasis or infiltrate. -------- FINAL REPORT -------- Dictated By: Caesar Otoole Dictated Date: 05/03/2022 19:25 Assigned Physician: Caesar Otoole Reviewed and Electronically Signed By: Caesar Otoole Signed Date: 05/03/2022 19:27 Workstation ID: [id number] Transcribed By: Self Edit Transcribed Date: 05/03/2022 19:[address] [facility] Absolute lymphocyte countOrd ered By: Dr. Huerta on 04-14-2022 Lymphocytes Auto (Unsp spec) [#/Vol] 1.12 10*3/uL 0.83-4.51 [facility] Amorphous sediment detection in urine sediment by light microscopyOrdered By: Dr. Lopes on 04-14-2022 Amorphous sediment LM Ql (Urine sed) 3+ [facility] Basophil percentageOrdered B y: Dr. Lopes on 04-14-2022 Basophil percentage 5-10 SEEN /hpf 0-5 [facility] Basophil percentageOrdered B y: Dr. Huerta on 04-14-2022 Basophil percentage 96 mg/dL 74-106 [facility] Basophil percentage 144 mmol/L 136-145 [facility] Basophil percentage 3.3 mmol/L 3.5-5.1 [facility] Basophil percentage 108 mmol/L 98-107 [facility] Basophils (Bld) [#/Vol] 6.8 10*3/uL 4.4-11.0 [facility] Basophils (Bld) [#/Vol] 4.7 10*3/uL 2.0-7.7 [facility] Basophils/100 WBC (Bld) 69.6 % 47-70 [facility] Basophils/100 WBC (Bld) 2.6 % 0-5 [facility] Basophils/100 WBC (Bld) 0.4 % 0-1 [facility] Bilirubin Test strip Ql (U)O rdered By: Dr. Loeps on 04-14-2022 Bilirubin Ql (U) 3 mg/dL Negative [facility] Blood erythrocytes count (nu mber/volume)Ordered By: Dr. Huerta on 04-14-2022 RBC (Bld) [#/Vol] 4.58 10*6/uL 4.2-5.4 [facility] Blood hemoglobin measurement (mass/volume)Ordered By: Dr. Huerta on 04-14-2022 Hemoglobin (Bld) [Mass/Vol] 14.6 g/dL 12.0-15.0 [facility] Blood lymphocytes/100 leukoc ytesOrdered By: Dr. Huerta on 04-14-2022 Lymphocytes/100 WBC (Bld) 16.5 % 19-41 [facility] Blood monocytes/100 leukocyt esOrdered By: Dr. Huerta on 04-14-2022 Monocytes/100 WBC (Bld) 10.6 % 0-10 [facility] Blood platelet mean volumeOr dered By: Dr. Huerta on 04-14-2022 Platelet mean volume (Bld) [Entitic vol] 12.2 fL 6.2-12.0 [facility] COVID-19 virus antigen assay Ordered By: Dr. Huerta on 04-14-2022 SARS-CoV-2 (COVID-19) Ag IA.rapid Ql (Resp) [facility] Calcium oxalate crystals det ection in urine sediment by light microscopyOrdered By: Dr. Lopes on 04-14-2022 Calcium oxalate crystals LM Ql (Urine sed) 1+ /hpf [facility] Determination of erythrocyte mean corpuscular volume (MCV)Ordered By: Dr. Huerta on 04-14-2022 MCV (RBC) [Entitic vol] 101.3 fL 81-99 [facility] Hematocrit Auto (Bld) [Volum e fraction]Ordered By: Dr. Huerta on 04-14-2022 Hematocrit (Bld) [Volume fraction] 46.4 % 37-47 [facility] Ketones Test strip Ql (U)Ord ered By: Dr. Lopes on 04-14-2022 Ketones Ql (U) 150 mg/dl Negative [facility] MCHC Auto (RBC) [Mass/Vol]Or dered By: Dr. Huerta on 04-14-2022 MCHC (RBC) [Mass/Vol] 31.5 g/dL 32-36 [facility] Mucus LM Ql (Urine sed)Order ed By: Dr. Lopes on 04-14-2022 Mucus Ql (Urine sed) 0 SEEN /hpf [facility] Nitrite Test strip Ql (U)Ord ered By: Dr. Lopes on 04-14-2022 Nitrite Ql (U) Positive Negative [facility] No Panel InformationOrdered By: Dr. Lopes on 04-14-2022 Negative < 50 ng/mL [facility] No Panel InformationOrdered By: Dr. Huerta on 04-14-2022 [facility] Positive < 200 ng/mL [facility] 31.9 pg 27.0-32.0 [facility] 13.0 % 11.6-14.6 [facility] 48.3 fl 35.1-43.9 [facility] 0.300 % 0.0-0.9 [facility] 0 % 0-5 [facility] 95 mL/min >60 [facility] 115 mL/min >60 [facility] 102.61 ml/min [facility] 19.3 RATIO 10-20 [facility] 23.0 mmol/L 21.0-32.0 [facility] < 3.0 mg/dL [facility] Platelets bldOrdered By: Dr. Huerta on 04-14-2022 Platelets (Bld) [#/Vol] 174 10*3/uL 150-450 [facility] Protein Test strip Ql (U)Ord ered By: Dr. Lopes on 04-14-2022 Protein Ql (U) 30 mg/dl Negative [facility] Serum or plasma calcium charles urement (mass/volume)Ordered By: Dr. Huerta on 04-14-2022 Calcium [Mass/Vol] 9.4 mg/dL 8.5-10.[address] [facility] Serum or plasma creatinine m easurement (mass/volume)Ordered By: Dr. Huerta on 04-14-2022 Creatinine [Mass/Vol] 0.73 mg/dL 0.55-1.02 [facility] Serum or plasma urea nitroge n measurement (mass/volume)Ordered By: Dr. Huerta on 04-14-2022 Urea nitrogen [Mass/Vol] 14 mg/dL 7-18 [facility] Squamous epithelial cells de tection in urine sediment by light microscopyOrdered By: Dr. Lopes on 04-14-2022 Epithelial cells.squamous LM Ql (Urine sed) 0 SEEN /hpf 5-10 [facility] Thin prep Papanicolaou smear with manual screeningOrdered By: Dr. Huerta on 04-14-2022 Thin prep Papanicolaou smear with manual screening 13 5-15 [facility] Urine blood detectionOrdered By: Dr. Lopes on 04-14-2022 RBC Ql (U) 10 /ul Negative [facility] RBC Ql (U) 0 SEEN /hpf 0-5 [facility] Urine clarityOrdered By: Dr. Lopes on 04-14-2022 Clarity (U) Turbid Clear [facility] Urine color determinationOrd ered By: Dr. Lopes on 04-14-2022 Color (U) Yellow Yellow [facility] Urine glucose detectionOrder ed By: Dr. Lopes on 04-14-2022 Glucose Ql (U) Normal mg/dl Normal [facility] Urine leukocyte esterase det ection by dipstickOrdered By: Dr. Lopes on 04-14-2022 Leukocyte esterase Test strip Ql (U) 500 /ul Negative [facility] Urine pHOrdered By: Dr. Luke beltre on 04-14-2022 pH (U) 5.0 [pH] 5.0 - 8.0 [facility] Urine phencyclidine (PCP) de tectionOrdered By: Dr. Huerta on 04-14-2022 Phencyclidine Ql (U) Negative < 25 ng/mL [facility] Urine sediment bacteria coun t by microscopy (number/high power field)Ordered By: Dr. Lopes on 04-14-2022 Bacteria LM.HPF (Urine sed) [#/Area] 0 /[HPF] None Seen [facility] Urine specific gravity measu rementOrdered By: Dr. Lopes on 04-14-2022 Specific gravity (U) [Rel density] 1.030 1.002-1.030 [facility] Urobilinogen Auto test strip Ql (U)Ordered By: Dr. Lopes on 04-14-2022 Urobilinogen Ql (U) 4 mg/dl Normal [facility] Absolute lymphocyte countOrd ered By: Dr. Brown on 04-10-2022 Lymphocytes Auto (Unsp spec) [#/Vol] 1.19 10*3/uL 0.83-4.51 [facility] Basophil percentageOrdered B y: Dr. Brown on 04-10-2022 Basophil percentage 95 mg/dL 74-106 [facility] Basophil percentage 138 mmol/L 136-145 [facility] Basophil percentage 5.4 mmol/L 3.5-5.1 [facility] Basophil percentage 109 mmol/L 98-107 [facility] Basophils (Bld) [#/Vol] 6.7 10*3/uL 4.4-11.0 [facility] Basophils (Bld) [#/Vol] 4.7 10*3/uL 2.0-7.7 [facility] Basophils/100 WBC (Bld) 70.4 % 47-70 [facility] Basophils/100 WBC (Bld) 2.6 % 0-5 [facility] Basophils/100 WBC (Bld) 0.2 % 0-1 [facility] Blood erythrocytes count (nu mber/volume)Ordered By: Dr. Brown on 04-10-2022 RBC (Bld) [#/Vol] 4.41 10*6/uL 4.2-5.4 [facility] Blood hemoglobin measurement (mass/volume)Ordered By: Dr. Brown on 04-10-2022 Hemoglobin (Bld) [Mass/Vol] 14.0 g/dL 12.0-15.0 [facility] Blood lymphocytes/100 leukoc ytesOrdered By: Dr. Brown on 04-10-2022 Lymphocytes/100 WBC (Bld) 17.9 % 19-41 [facility] Blood monocytes/100 leukocyt esOrdered By: Dr. Brown on 04-10-2022 Monocytes/100 WBC (Bld) 8.6 % 0-10 [facility] Blood platelet mean volumeOr dered By: Dr. Brown on 04-10-2022 Platelet mean volume (Bld) [Entitic vol] 12.0 fL 6.2-12.0 [facility] Determination of erythrocyte mean corpuscular volume (MCV)Ordered By: Dr. Brown on 04-10-2022 MCV (RBC) [Entitic vol] 101.1 fL 81-99 [facility] Hematocrit Auto (Bld) [Volum e fraction]Ordered By: Dr. Brown on 04-10-2022 Hematocrit (Bld) [Volume fraction] 44.6 % 37-47 [facility] MCHC Auto (RBC) [Mass/Vol]Or dered By: Dr. Brown on 04-10-2022 MCHC (RBC) [Mass/Vol] 31.4 g/dL 32-36 [facility] No Panel InformationOrdered By: Dr. Brown on 04-10-2022 31.7 pg 27.0-32.0 [facility] 13.2 % 11.6-14.6 [facility] 49.6 fl 35.1-43.9 [facility] 0.300 % 0.0-0.9 [facility] 0 % 0-5 [facility] 118 mL/min >60 [facility] 143 mL/min >60 [facility] 124.84 ml/min [facility] 6.6 RATIO 10-20 [facility] 1.6 mg/dL 1.6-2.6 [facility] 23.0 mmol/L 21.0-32.0 [facility] Platelets bldOrdered By: Dr. Brown on 04-10-2022 Platelets (Bld) [#/Vol] 135 10*3/uL 150-450 [facility] Serum or plasma calcium charles urement (mass/volume)Ordered By: Dr. Brown on 04-10-2022 Calcium [Mass/Vol] 8.8 mg/dL 8.5-10.[address] [facility] Serum or plasma creatinine m easurement (mass/volume)Ordered By: Dr. Brown on 04-10-2022 Creatinine [Mass/Vol] 0.60 mg/dL 0.55-1.02 [facility] Serum or plasma urea nitroge n measurement (mass/volume)Ordered By: Dr. Brown on 04-10-2022 Urea nitrogen [Mass/Vol] 4 mg/dL 7-18 [facility] Thin prep Papanicolaou smear with manual screeningOrdered By: Dr. Brown on 04-10-2022 Thin prep Papanicolaou smear with manual screening 6 5-15 [facility] Basophil percentageOrdered B y: Dr. Massey on 04-08-2022 Basophil percentage 80 mg/dL 74-106 [facility] Basophil percentage 139 mmol/L 136-145 [facility] Basophil percentage 4.4 mmol/L 3.5-5.1 [facility] Basophil percentage 111 mmol/L 98-107 [facility] Chloride [Moles/Vol] 111 mmol/L 98-107 [facility] Glucose [Mass/Vol] 80 mg/dL 74-[address] [facility] Potassium [Moles/Vol] 4.4 mmol/L 3.5-5.1 [facility] Comment on above: Slight Hemolysis, Re sult may be falsely increased. Sodium [Moles/Vol] 139 mmol/L 136-[address] [facility] - Chemistry and C hemistry - challengeOrdered By: Dr. Massey on 04-08-2022 CO2 [Moles/Vol] 22.0 mmol/L 21.0-32.0 [facility] Urea nitrogen/Creatinine [Mass ratio] 6.9 mg/mg 10- [facility] No Panel InformationOrdered By: Dr. Massey on 04-08-2022 Estimated Creatinine Clearance Calc 129.14 ml/min [facility] Estimated GFR (MDRD) Amer 151 mL/min >60 [facility] Comment on above: GFR Calc Estimated GFR (MDRD) Non-Af Amer 125 mL/min >60 [facility] Comment on above: Non- GFR Calc 125 mL/min >60 [facility] 151 mL/min >60 [facility] 129.14 ml/min [facility] 6.9 RATIO 12-16 [facility] 22.0 mmol/L 21.0-32.0 [facility] Serum or plasma calcium charles urement (mass/volume)Ordered By: Dr. Massey on 04-08-2022 Calcium [Mass/Vol] 8.7 mg/dL 8.5-10.[address] [facility] Serum or plasma creatinine m easurement (mass/volume)Ordered By: Dr. Massey on 04-08-2022 Creatinine [Mass/Vol] 0.58 mg/dL 0.55-1.02 [facility] Comment on above: The validity of the calculated GFR & GFRAA in patients over 70 years has not been determined. Clinical correlation is essential. Serum or plasma urea nitroge n measurement (mass/volume)Ordered By: Dr. Massey on 04-08-2022 Urea nitrogen [Mass/Vol] 4 mg/dL 7-18 [facility] Thin prep Papanicolaou smear with manual screeningOrdered By: Dr. Massey on 04-08-2022 Thin prep Papanicolaou smear with manual screening 6 5-15 [facility] Basophil percentageOrdered B y: Dr. Shannon on 04-07-2022 Basophil percentage 25-50 SEEN /hpf 0-5 [facility] Bilirubin Test strip Ql (U)O rdered By: Dr. Shannon on 04-07-2022 Bilirubin Ql (U) Negative Negative [facility] Ketones Test strip Ql (U)Ord ered By: Dr. Shannon on 04-07-2022 Ketones Ql (U) 5 mg/dl Negative [facility] Mucus LM Ql (Urine sed)Order ed By: Dr. Shannon on 04-07-2022 Mucus Ql (Urine sed) 2+ /hpf [facility] Nitrite Test strip Ql (U)Ord ered By: Dr. Shannon on 04-07-2022 Nitrite Ql (U) Negative Negative [facility] No Panel InformationOrdered By: Dr. Mullen on 04-07-2022 Urine Potassium 37.0 mmol/L Not Establ. [facility] 37.0 mmol/L Not Establ. [facility] Protein Test strip Ql (U)Ord ered By: Dr. Shannon on 04-07-2022 Protein Ql (U) 30 mg/dl Negative [facility] Squamous epithelial cells de tection in urine sediment by light microscopyOrdered By: Dr. Shannon on 04-07-2022 Epithelial cells.squamous LM Ql (Urine sed) 0 SEEN /hpf 5-10 [facility] Urine blood detectionOrdered By: Dr. Shannon on 04-07-2022 RBC Ql (U) 10 /ul Negative [facility] RBC Ql (U) 0-5 SEEN /hpf 0-5 [facility] Urine clarityOrdered By: Dr. Shannon on 04-07-2022 Clarity (U) Clear Clear [facility] Urine color determinationOrd ered By: Dr. Shannon on 04-07-2022 Color (U) Yellow Yellow [facility] Urine glucose detectionOrder ed By: Dr. Shannon on 04-07-2022 Glucose Ql (U) Normal mg/dl Normal [facility] Urine leukocyte esterase det ection by dipstickOrdered By: Dr. Shannon on 04-07-2022 Leukocyte esterase Test strip Ql (U) 500 /ul Negative [facility] Urine pHOrdered By: Dr. Eugenie jc on 04-07-2022 pH (U) 6.0 [pH] 5.0 - 8.0 [facility] Urine sediment bacteria coun t by microscopy (number/high power field)Ordered By: Dr. Shannon on 04-07-2022 Bacteria LM.HPF (Urine sed) [#/Area] 2 /[HPF] None Seen [facility] Urine specific gravity measu rementOrdered By: Dr. Shannon on 04-07-2022 Specific gravity (U) [Rel density] 1.010 1.002-1.030 [facility] Urobilinogen Auto test strip Ql (U)Ordered By: Dr. Shannon on 04-07-2022 Urobilinogen Ql (U) 8 mg/dl Normal [facility] Absolute lymphocyte countOrd ered By: Dr. Shannon on 04-06-2022 Lymphocytes Auto (Unsp spec) [#/Vol] 1.30 10*3/uL 0.83-4.51 [facility] Basophil percentageOrdered B y: Dr. Shannon on 04-06-2022 Basophil percentage 6.6 g/dL 6.4-8.2 [facility] Basophil percentage 0.70 mg/dL 0.20-1.00 [facility] Basophils (Bld) [#/Vol] 7.4 10*3/uL 4.4-11.0 [facility] Basophils (Bld) [#/Vol] 5.1 10*3/uL 2.0-7.7 [facility] Basophils/100 WBC (Bld) 0.4 % 0-1 [facility] Basophils/100 WBC (Bld) 68.6 % 47-70 [facility] Basophils/100 WBC (Bld) 0.8 % 0-5 [facility] Bilirubin [Mass/Vol] 0.70 mg/dL 0.20-1.00 [facility] Comment on above: For patients on eltr ombopag therapy, use of Dimension [place] TBIL is not recommended. Eosinophils/100 WBC (Bld) 0.8 % 0-5 [facility] Neutrophils (Bld) [#/Vol] 5.1 10*3/uL 2.0-7.7 [facility] Neutrophils/100 WBC (Bld) 68.6 % 47-70 [facility] Protein [Mass/Vol] 6.6 g/dL 6.4-8.[address] [facility] WBC (Bld) [#/Vol] 7.4 10*3/uL 4.4-11.[address] [facility] Blood erythrocytes count (nu mber/volume)Ordered By: Dr. Shannon on 04-06-2022 RBC (Bld) [#/Vol] 3.99 10*6/uL 4.2-5.4 [facility] Blood hemoglobin measurement (mass/volume)Ordered By: Dr. Shannon on 04-06-2022 Hemoglobin (Bld) [Mass/Vol] 13.0 g/dL 12.0-15.0 [facility] Blood lymphocytes/100 leukoc ytesOrdered By: Dr. Shannon on 04-06-2022 Lymphocytes/100 WBC (Bld) 17.6 % 19-41 [facility] Blood monocytes/100 leukocyt esOrdered By: Dr. Shannon on 04-06-2022 Monocytes/100 WBC (Bld) 12.3 % 0-10 [facility] Blood platelet mean volumeOr dered By: Dr. Shannon on 04-06-2022 Platelet mean volume (Bld) [Entitic vol] 12.0 fL 6.2-12.0 [facility] Determination of erythrocyte mean corpuscular volume (MCV)Ordered By: Dr. Shannon on 04-06-2022 MCV (RBC) [Entitic vol] 101.3 fL 81-99 [facility] Direct bilirubinOrdered By: Dr. Shannon on 04-06-2022 Bilirubin.direct [Mass/Vol] 0.23 mg/dL 0.00-0.30 [facility] Hematocrit Auto (Bld) [Volum e fraction]Ordered By: Dr. Shannon on 04-06-2022 Hematocrit (Bld) [Volume fraction] 40.4 % 37-47 [facility] Laboratory - Chemistry and C hemistry - challengeOrdered By: Dr. Shannon on 04-06-2022 ALP [Catalytic activity/Vol] 55 U/L 45-117 [facility] ALT [Catalytic activity/Vol] 23 U/L 13-56 [facility] Globulin (S) [Mass/Vol] 2.9 g/dL 2.2-4.2 [facility] Laboratory - Chemistry and C hemistry - challengeOrdered By: Dr. Mullen on 04-06-2022 Magnesium [Mass/Vol] 1.6 mg/dL 1.6-2.6 [facility] Laboratory - Hematology and Cell countsOrdered By: Dr. Shannon on 04-06-2022 Erythrocyte distribution width (RBC) [Entitic vol] 50.3 fL 35.1-43.9 [facility] Erythrocyte distribution width (RBC) [Ratio] 13.3 % 11.6-14.6 [facility] Immature granulocytes/100 WBC (Bld) 0.300 % 0.0-0.9 [facility] Comment on above: IG% - Immature Granu locytes (promyelocytes, myelocytes and metamyelocytes) > 1% indicates that a LEFT SHIFT is Present. MCH (RBC) [Entitic mass] 32.6 pg 27.0-32.0 [facility] Nucleated RBC/100 WBC (Bld) [Ratio] 0 % 0-5 [facility] MCHC Auto (RBC) [Mass/Vol]Or dered By: Dr. Shannon on 04-06-2022 MCHC (RBC) [Mass/Vol] 32.2 g/dL 32-36 [facility] Comment on above: Delta: 30.2 on 04/02 No Panel InformationOrdered By: Dr. Shannon on 04-06-2022 32.6 pg 27.0-32.0 [facility] 13.3 % 11.6-14.6 [facility] 50.3 fl 35.1-43.9 [facility] 0.300 % 0.0-0.9 [facility] 0 % 0-5 [facility] 2.9 g/dL 2.2-4.2 [facility] 55 U/L 45-117 [facility] 23 U/L 13-56 [facility] No Panel InformationOrdered By: Dr. Mullen on 04-06-2022 1.6 mg/dL 1.6-2.6 [facility] Platelets bldOrdered By: Dr. Shannon on 04-06-2022 Platelets (Bld) [#/Vol] 187 10*3/uL 150-450 [facility] Serum or plasma albumin charles urement (mass/volume)Ordered By: Dr. Shannon on 04-06-2022 Albumin [Mass/Vol] 3.7 g/dL 3.2-5.[address] [facility] Thin prep Papanicolaou smear with manual screeningOrdered By: Dr. Shannon on 04-06-2022 Thin prep Papanicolaou smear with manual screening 14 U/L 15-37 [facility] Bacteria identified Cx Nom ( U)Ordered By: Dr. Galvez on 04-05-2022 Culture, urine Escherichia coli#2 [facility] Culture, urine Escherichia coli [facility] Culture, urineOrdered By: Dr Chapincito Galvez on 04-05-2022 Bacteria identified Cx Nom (U) Escherichia coli#2 [facility] Bacteria identified Cx Nom (U) Escherichia coli [facility] Absolute lymphocyte countOrd ered By: Dr. Galvez on 04-02-2022 Lymphocytes Auto (Unsp spec) [#/Vol] 1.32 10*3/uL 0.83-4.51 [facility] Basophil percentageOrdered B y: Dr. Galvez on 04-02-2022 Basophil percentage 102 mg/dL 74-106 [facility] Basophil percentage 145 mmol/L 136-145 [facility] Basophil percentage 3.3 mmol/L 3.5-5.1 [facility] Basophil percentage 110 mmol/L 98-107 [facility] Basophils (Bld) [#/Vol] 7.5 10*3/uL 4.4-11.0 [facility] Basophils (Bld) [#/Vol] 5.3 10*3/uL 2.0-7.7 [facility] Basophils/100 WBC (Bld) 0.3 % 0-1 [facility] Basophils/100 WBC (Bld) 70.8 % 47-70 [facility] Basophils/100 WBC (Bld) 1.1 % 0-5 [facility] Chloride [Moles/Vol] 110 mmol/L 98-107 [facility] Eosinophils/100 WBC (Bld) 1.1 % 0-5 [facility] Glucose [Mass/Vol] 102 mg/dL 74-[address] [facility] Comment on above: Fasting Glucose resu lt from 100 to 125 mg/dL suggests IMPAIRED HOMEOSTASIS per A.D.A. criteria. Neutrophils (Bld) [#/Vol] 5.3 10*3/uL 2.0-7.7 [facility] Neutrophils/100 WBC (Bld) 70.8 % 47-70 [facility] Potassium [Moles/Vol] 3.3 mmol/L 3.5-5.1 [facility] Sodium [Moles/Vol] 145 mmol/L 136-[address] [facility] WBC (Bld) [#/Vol] 7.5 10*3/uL 4.4-11.[address] [facility] Blood erythrocytes count (nu mber/volume)Ordered By: Dr. Galvez on 04-02-2022 RBC (Bld) [#/Vol] 4.17 10*6/uL 4.2-5.4 [facility] Blood hemoglobin measurement (mass/volume)Ordered By: Dr. Galvez on 04-02-2022 Hemoglobin (Bld) [Mass/Vol] 13.2 g/dL 12.0-15.0 [facility] Blood lymphocytes/100 leukoc ytesOrdered By: Dr. Galvez on 04-02-2022 Lymphocytes/100 WBC (Bld) 17.7 % 19-41 [facility] Blood monocytes/100 leukocyt esOrdered By: Dr. Galvez on 04-02-2022 Monocytes/100 WBC (Bld) 9.8 % 0-10 [facility] Blood platelet mean volumeOr dered By: Dr. Galvez on 04-02-2022 Platelet mean volume (Bld) [Entitic vol] 11.1 fL 6.2-12.0 [facility] Determination of erythrocyte mean corpuscular volume (MCV)Ordered By: Dr. Galvez on 04-02-2022 MCV (RBC) [Entitic vol] 104.8 fL 81-99 [facility] Hematocrit Auto (Bld) [Volum e fraction]Ordered By: Dr. Galvez on 04-02-2022 Hematocrit (Bld) [Volume fraction] 43.7 % 37-47 [facility] Laboratory - Chemistry and C hemistry - challengeOrdered By: Dr. Galvez on 04-02-2022 CO2 [Moles/Vol] 23.0 mmol/L 21.0-32.0 [facility] Urea nitrogen/Creatinine [Mass ratio] 18.1 mg/mg 10-20 [facility] Laboratory - Hematology and Cell countsOrdered By: Dr. Galvez on 04-02-2022 Erythrocyte distribution width (RBC) [Entitic vol] 53.9 fL 35.1-43.9 [facility] Erythrocyte distribution width (RBC) [Ratio] 13.8 % 11.6-14.6 [facility] Immature granulocytes/100 WBC (Bld) 0.300 % 0.0-0.9 [facility] Comment on above: IG% - Immature Granu locytes (promyelocytes, myelocytes and metamyelocytes) > 1% indicates that a LEFT SHIFT is Present. MCH (RBC) [Entitic mass] 31.7 pg 27.0-32.0 [facility] Nucleated RBC/100 WBC (Bld) [Ratio] 0 % 0-5 [facility] MCHC Auto (RBC) [Mass/Vol]Or dered By: Dr. Galvez on 04-02-2022 MCHC (RBC) [Mass/Vol] 30.2 g/dL 32-36 [facility] No Panel InformationOrdered By: Dr. Galvez on 04-02-2022 Estimated Creatinine Clearance Calc 113.49 ml/min [facility] Estimated GFR (MDRD) Amer 128 mL/min >60 [facility] Comment on above: GFR Calc Estimated GFR (MDRD) Non-Af Amer 106 mL/min >60 [facility] Comment on above: Non- GFR Calc 31.7 pg 27.0-32.0 [facility] 13.8 % 11.6-14.6 [facility] 53.9 fl 35.1-43.9 [facility] 0.300 % 0.0-0.9 [facility] 0 % 0-5 [facility] 106 mL/min >60 [facility] 128 mL/min >60 [facility] 113.49 ml/min [facility] 18.1 RATIO 10-20 [facility] 23.0 mmol/L 21.0-32.0 [facility] Platelets bldOrdered By: Dr. Galvez on 04-02-2022 Platelets (Bld) [#/Vol] 185 10*3/uL 150-450 [facility] Serum or plasma calcium charles urement (mass/volume)Ordered By: Dr. Galvez on 04-02-2022 Calcium [Mass/Vol] 9.4 mg/dL 8.5-10.[address] [facility] Serum or plasma creatinine m easurement (mass/volume)Ordered By: Dr. Galvez on 04-02-2022 Creatinine [Mass/Vol] 0.66 mg/dL 0.55-1.02 [facility] Comment on above: The validity of the calculated GFR & GFRAA in patients over 70 years has not been determined. Clinical correlation is essential. Serum or plasma urea nitroge n measurement (mass/volume)Ordered By: Dr. Galvez on 04-02-2022 Urea nitrogen [Mass/Vol] 12 mg/dL 7-18 [facility] Thin prep Papanicolaou smear with manual screeningOrdered By: Dr. Galvez on 04-02-2022 Thin prep Papanicolaou smear with manual screening 12 5-15 [facility] Basophil percentageOrdered B y: Dr. Galvez on 04-01-2022 Basophil percentage 25-50 SEEN /hpf 0-5 [facility] Bilirubin Test strip Ql (U)O rdered By: Dr. Galvez on 04-01-2022 Bilirubin Ql (U) 1 mg/dL Negative [facility] Comment on above: COLOR OF URINE MAY A FFECT DIPSTICK RESULTS. Ketones Test strip Ql (U)Ord ered By: Dr. Galvez on 04-01-2022 Ketones Ql (U) 5 mg/dl Negative [facility] Mucus LM Ql (Urine sed)Order ed By: Dr. Galvez on 04-01-2022 Mucus Ql (Urine sed) 0 SEEN /hpf [facility] Nitrite Test strip Ql (U)Ord ered By: Dr. Galvez on 04-01-2022 Nitrite Ql (U) Positive Negative [facility] No Panel InformationOrdered By: Dr. Galvez on 04-01-2022 Urine Trichomonas 0-5 SEEN /hpf None Seen [facility] 0-5 SEEN /hpf None Seen [facility] Protein Test strip Ql (U)Ord ered By: Dr. Galvez on 04-01-2022 Protein Ql (U) 30 mg/dl Negative [facility] Squamous epithelial cells de tection in urine sediment by light microscopyOrdered By: Dr. Galvez on 04-01-2022 Epithelial cells.squamous LM Ql (Urine sed) 0-5 SEEN /hpf 5-10 [facility] Urine blood detectionOrdered By: Dr. Galvez on 04-01-2022 RBC Ql (U) 10 /ul Negative [facility] RBC Ql (U) 0 SEEN /hpf 0-5 [facility] Urine clarityOrdered By: Dr. Galvez on 04-01-2022 Clarity (U) Sl. Cloudy Clear [facility] Urine color determinationOrd ered By: Dr. Galvez on 04-01-2022 Color (U) Sheba Yellow [facility] Urine glucose detectionOrder ed By: Dr. Galvez on 04-01-2022 Glucose Ql (U) Normal mg/dl Normal [facility] Urine leukocyte esterase det ection by dipstickOrdered By: Dr. Galvez on 04-01-2022 Leukocyte esterase Test strip Ql (U) 500 /ul Negative [facility] Urine pHOrdered By: Dr. Gloria medina on 04-01-2022 pH (U) 5.0 [pH] 5.0 - 8.0 [facility] Urine sediment bacteria coun t by microscopy (number/high power field)Ordered By: Dr. Galvez on 04-01-2022 Bacteria LM.HPF (Urine sed) [#/Area] 2 /[HPF] None Seen [facility] Urine specific gravity measu rementOrdered By: Dr. Galvez on 04-01-2022 Specific gravity (U) [Rel density] 1.025 1.002-1.030 [facility] Urobilinogen Auto test strip Ql (U)Ordered By: Dr. Galvez on 04-01-2022 Urobilinogen Ql (U) 1 mg/dl Normal [facility] Basophil percentageOrdered B y: Dr. Badillo on 03-21-2022 Basophil percentage 79 mg/dL 74-106 [facility] Basophil percentage 138 mmol/L 136-145 [facility] Basophil percentage 3.1 mmol/L 3.5-5.1 [facility] Basophil percentage 106 mmol/L 98-107 [facility] Basophils (Bld) [#/Vol] 10.0 10*3/uL 4.4-11.0 [facility] Chloride [Moles/Vol] 106 mmol/L 98-107 [facility] Glucose [Mass/Vol] 79 mg/dL 74-[address] [facility] Potassium [Moles/Vol] 3.1 mmol/L 3.5-5.1 [facility] Sodium [Moles/Vol] 138 mmol/L 136-[address] [facility] WBC (Bld) [#/Vol] 10.0 10*3/uL 4.4-11.0 [facility] Blood erythrocytes count (nu mber/volume)Ordered By: Dr. Badillo on 03-21-2022 RBC (Bld) [#/Vol] 3.54 10*6/uL 4.2-5.4 [facility] Blood hemoglobin measurement (mass/volume)Ordered By: Dr. Badillo on 03-21-2022 Hemoglobin (Bld) [Mass/Vol] 11.5 g/dL 12.0-15.0 [facility] Blood platelet mean volumeOr dered By: Dr. Badillo on 03-21-2022 Platelet mean volume (Bld) [Entitic vol] 11.7 fL 6.2-12.0 [facility] Determination of erythrocyte mean corpuscular volume (MCV)Ordered By: Dr. Badillo on 03-21-2022 MCV (RBC) [Entitic vol] 102.8 fL 81-99 [facility] Hematocrit Auto (Bld) [Volum e fraction]Ordered By: Dr. Badillo on 03-21-2022 Hematocrit (Bld) [Volume fraction] 36.4 % 37-47 [facility] Laboratory - Chemistry and C hemistry - challengeOrdered By: Dr. Badillo on 03-21-2022 CO2 [Moles/Vol] 22.0 mmol/L 21.0-32.0 [facility] Magnesium [Mass/Vol] 1.9 mg/dL 1.6-2.6 [facility] Urea nitrogen/Creatinine [Mass ratio] 12.7 mg/mg 10-20 [facility] Laboratory - Hematology and Cell countsOrdered By: Dr. Badillo on 03-21-2022 Erythrocyte distribution width (RBC) [Entitic vol] 53.1 fL 35.1-43.9 [facility] Erythrocyte distribution width (RBC) [Ratio] 14.1 % 11.6-14.6 [facility] MCH (RBC) [Entitic mass] 32.5 pg 27.0-32.0 [facility] MCHC Auto (RBC) [Mass/Vol]Or dered By: Dr. Badillo on 03-21-2022 MCHC (RBC) [Mass/Vol] 31.6 g/dL 32-36 [facility] No Panel InformationOrdered By: Dr. Badillo on 03-21-2022 Estimated GFR (MDRD) Amer 137 mL/min >60 [facility] Comment on above: GFR Calc Estimated GFR (MDRD) Non-Af Amer 113 mL/min >60 [facility] Comment on above: Non- GFR Calc 32.5 pg 27.0-32.0 [facility] 14.1 % 11.6-14.6 [facility] 53.1 fl 35.1-43.9 [facility] 113 mL/min >60 [facility] 137 mL/min >60 [facility] 12.7 RATIO 10-20 [facility] 1.9 mg/dL 1.6-2.6 [facility] 22.0 mmol/L 21.0-32.0 [facility] Platelets bldOrdered By: Dr. Badillo on 03-21-2022 Platelets (Bld) [#/Vol] 193 10*3/uL 150-450 [facility] Serum or plasma calcium charles urement (mass/volume)Ordered By: Dr. Badillo on 03-21-2022 Calcium [Mass/Vol] 9.2 mg/dL 8.5-10.[address] [facility] Serum or plasma creatinine m easurement (mass/volume)Ordered By: Dr. Badillo on 03-21-2022 Creatinine [Mass/Vol] 0.63 mg/dL 0.55-1.02 [facility] Comment on above: The validity of the calculated GFR & GFRAA in patients over 70 years has not been determined. Clinical correlation is essential. Serum or plasma urea nitroge n measurement (mass/volume)Ordered By: Dr. Badillo on 03-21-2022 Urea nitrogen [Mass/Vol] 8 mg/dL 7-18 [facility] Thin prep Papanicolaou smear with manual screeningOrdered By: Dr. Badillo on 03-21-2022 Thin prep Papanicolaou smear with manual screening 10 5-15 [facility] Platelets bldOrdered By: Dr. Badillo on 03-18-2022 Platelets (Bld) [#/Vol] 128 10*3/uL 150-450 [facility] Basophil percentageOrdered B y: Dr. Badillo on 03-14-2022 Basophil percentage 82 mg/dL 74-106 [facility] Basophil percentage 139 mmol/L 136-145 [facility] Basophil percentage 2.9 mmol/L 3.5-5.1 [facility] Basophil percentage 104 mmol/L 98-107 [facility] Basophils (Bld) [#/Vol] 4.2 10*3/uL 4.4-11.0 [facility] Chloride [Moles/Vol] 104 mmol/L 98-107 [facility] Glucose [Mass/Vol] 82 mg/dL 74-[address] [facility] Potassium [Moles/Vol] 2.9 mmol/L 3.5-5.1 [facility] Sodium [Moles/Vol] 139 mmol/L 136-[address] [facility] WBC (Bld) [#/Vol] 4.2 10*3/uL 4.4-11.[address] [facility] Blood erythrocytes count (nu mber/volume)Ordered By: Dr. Badillo on 03-14-2022 RBC (Bld) [#/Vol] 3.04 10*6/uL 4.2-5.4 [facility] Blood hemoglobin measurement (mass/volume)Ordered By: Dr. Badillo on 03-14-2022 Hemoglobin (Bld) [Mass/Vol] 9.8 g/dL 12.0-15.0 [facility] Blood platelet mean volumeOr dered By: Dr. Badillo on 03-14-2022 Platelet mean volume (Bld) [Entitic vol] 12.0 fL 6.2-12.0 [facility] Determination of erythrocyte mean corpuscular volume (MCV)Ordered By: Dr. Badillo on 01-16-2023 MCV (RBC) [Entitic vol] 99.7 fL 81-99 [facility] Hematocrit Auto (Bld) [Volum e fraction]Ordered By: Dr. Badillo on 03-14-2022 Hematocrit (Bld) [Volume fraction] 30.3 % 37-47 [facility] Laboratory - Chemistry and C hemistry - challengeOrdered By: Dr. Badillo on 03-14-2022 CO2 [Moles/Vol] 25.0 mmol/L 21.0-32.0 [facility] Magnesium [Mass/Vol] 2.4 mg/dL 1.6-2.6 [facility] Urea nitrogen/Creatinine [Mass ratio] 19.3 mg/mg 10-20 [facility] Laboratory - Hematology and Cell countsOrdered By: Dr. Badillo on 03-14-2022 Erythrocyte distribution width (RBC) [Entitic vol] 48.5 fL 35.1-43.9 [facility] Erythrocyte distribution width (RBC) [Ratio] 13.3 % 11.6-14.6 [facility] MCH (RBC) [Entitic mass] 32.2 pg 27.0-32.0 [facility] MCHC Auto (RBC) [Mass/Vol]Or dered By: Dr. Badillo on 03-14-2022 MCHC (RBC) [Mass/Vol] 32.3 g/dL 32-36 [facility] No Panel InformationOrdered By: Dr. Badillo on 03-14-2022 Estimated GFR (MDRD) Amer 170 mL/min >60 [facility] Comment on above: GFR Calc Estimated GFR (MDRD) Non-Af Amer 141 mL/min >60 [facility] Comment on above: Non- GFR Calc Hepatitis A IgM Antibody Negative Negative [facility] Comment on above: Performed at: [facility] [address] [id number] Director: Cong Morrow PhD, Phone: [phone] Hepatitis C Antibody Non-Reactive Nonreactive [facility] Comment on above: Non Reactive: < 0.8 Equivocal: >/= 0.8 to < 1.0 Reactive: >/= 1.0The CDC recommends that a reactive/equivocal HCV antibody result be followed up by the HCV Nucleic Acid Amplificationtest (085577) 32.2 pg 27.0-32.0 [facility] 13.3 % 11.6-14.6 [facility] 48.5 fl 35.1-43.9 [facility] 141 mL/min >60 [facility] 170 mL/min >60 [facility] 19.3 RATIO 10-20 [facility] 2.4 mg/dL 1.6-2.6 [facility] 25.0 mmol/L 21.0-32.0 [facility] Negative Negative [facility] Non-Reactive Nonreactive [facility] Platelets bldOrdered By: Dr. Badillo on 03-14-2022 Platelets (Bld) [#/Vol] 107 10*3/uL 150-450 [facility] Serum hepatitis B virus surf marielena antibody IgG detectionOrdered By: Dr. Badillo on 03-14-2022 HBV surface IgG Ql (S) Non-Reactive [facility] Comment on above: Non Reactive: Incons istent with immunity less than <10 mIU/mL Reactive: Consistent with immunity greater than or equal to 10 mIU/mL Serum or plasma calcium charles urement (mass/volume)Ordered By: Dr. Badillo on 03-14-2022 Calcium [Mass/Vol] 8.6 mg/dL 8.5-10.[address] [facility] Serum or plasma creatinine m easurement (mass/volume)Ordered By: Dr. Badillo on 03-14-2022 Creatinine [Mass/Vol] 0.52 mg/dL 0.55-1.02 [facility] Comment on above: The validity of the calculated GFR & GFRAA in patients over 70 years has not been determined. Clinical correlation is essential. Serum or plasma urea nitroge n measurement (mass/volume)Ordered By: Dr. Badillo on 03-14-2022 Urea nitrogen [Mass/Vol] 10 mg/dL 7-18 [facility] Thin prep Papanicolaou smear with manual screeningOrdered By: Dr. Badillo on 03-14-2022 Thin prep Papanicolaou smear with manual screening 10 5-15 [facility] Absolute lymphocyte countOrd ered By: Dr. Badillo on 03-12-2022 Lymphocytes Auto (Unsp spec) [#/Vol] 1.11 10*3/uL 0.83-4.51 [facility] Basophil percentageOrdered B y: Dr. Badillo on 03-12-2022 Basophils (Bld) [#/Vol] 4.1 10*3/uL 4.4-11.0 [facility] Basophils (Bld) [#/Vol] 2.2 10*3/uL 2.0-7.7 [facility] Basophils/100 WBC (Bld) 0.2 % 0-1 [facility] Basophils/100 WBC (Bld) 53.1 % 47-70 [facility] Basophils/100 WBC (Bld) 3.4 % 0-5 [facility] Eosinophils/100 WBC (Bld) 3.4 % 0-5 [facility] Neutrophils (Bld) [#/Vol] 2.2 10*3/uL 2.0-7.7 [facility] Neutrophils/100 WBC (Bld) 53.1 % 47-70 [facility] WBC (Bld) [#/Vol] 4.1 10*3/uL 4.4-11.[address] [facility] Blood erythrocytes count (nu mber/volume)Ordered By: Dr. Badillo on 03-12-2022 RBC (Bld) [#/Vol] 3.15 10*6/uL 4.2-5.4 [facility] Blood hemoglobin measurement (mass/volume)Ordered By: Dr. Badillo on 03-12-2022 Hemoglobin (Bld) [Mass/Vol] 10.2 g/dL 12.0-15.0 [facility] Blood lymphocytes/100 leukoc ytesOrdered By: Dr. Badillo on 03-12-2022 Lymphocytes/100 WBC (Bld) 27.1 % 19-41 [facility] Blood monocytes/100 leukocyt esOrdered By: Dr. Badillo on 03-12-2022 Monocytes/100 WBC (Bld) 12.5 % 0-10 [facility] Blood platelet mean volumeOr dered By: Dr. Badillo on 03-12-2022 Platelet mean volume (Bld) [Entitic vol] 12.3 fL 6.2-12.0 [facility] Determination of erythrocyte mean corpuscular volume (MCV)Ordered By: Dr. Badillo on 03-12-2022 MCV (RBC) [Entitic vol] 96.2 fL 81-99 [facility] Hematocrit Auto (Bld) [Volum e fraction]Ordered By: Dr. Badillo on 03-12-2022 Hematocrit (Bld) [Volume fraction] 30.3 % 37-47 [facility] Laboratory - Hematology and Cell countsOrdered By: Dr. Badillo on 03-12-2022 Erythrocyte distribution width (RBC) [Entitic vol] 45.4 fL 35.1-43.9 [facility] Erythrocyte distribution width (RBC) [Ratio] 13.1 % 11.6-14.6 [facility] Immature granulocytes/100 WBC (Bld) 3.700 % 0.0-0.9 [facility] Comment on above: IG% - Immature Granu locytes (promyelocytes, myelocytes and metamyelocytes) > 1% indicates that a LEFT SHIFT is Present. MCH (RBC) [Entitic mass] 32.4 pg 27.0-32.0 [facility] Nucleated RBC/100 WBC (Bld) [Ratio] 1.5 % 0-5 [facility] MCHC Auto (RBC) [Mass/Vol]Or dered By: Dr. Badillo on 03-12-2022 MCHC (RBC) [Mass/Vol] 33.7 g/dL 32-36 [facility] Comment on above: Delta: 36.7 on 03/11 No Panel InformationOrdered By: Dr. Badillo on 03-12-2022 32.4 pg 27.0-32.0 [facility] 13.1 % 11.6-14.6 [facility] 45.4 fl 35.1-43.9 [facility] 3.700 % 0.0-0.9 [facility] 1.5 % 0-5 [facility] Platelets bldOrdered By: Dr. Badillo on 03-12-2022 Platelets (Bld) [#/Vol] 101 10*3/uL 150-450 [facility] Absolute lymphocyte countOrd ered By: Dr. Badillo on 03-11-2022 Lymphocytes Auto (Unsp spec) [#/Vol] 1.33 10*3/uL 0.83-4.51 [facility] Basophil percentageOrdered B y: Dr. Badillo on 03-11-2022 Basophil percentage 135 mg/dL 74-106 [facility] Basophil percentage 137 mmol/L 136-145 [facility] Basophil percentage 3.5 mmol/L 3.5-5.1 [facility] Basophil percentage 104 mmol/L 98-107 [facility] Chloride [Moles/Vol] 104 mmol/L 98-107 [facility] Glucose [Mass/Vol] 135 mg/dL 74-[address] [facility] Comment on above: Fasting Glucose resu lt greater than or equal to 126 mg/dL suggests DIABETES MELLITUS per A.D.A. criteria. Potassium [Moles/Vol] 3.5 mmol/L 3.5-5.1 [facility] Sodium [Moles/Vol] 137 mmol/L 136-[address] [facility] Basophils (Bld) [#/Vol] 3.5 10*3/uL 4.4-11.0 [facility] Basophils (Bld) [#/Vol] 1.7 10*3/uL 2.0-7.7 [facility] Basophils/100 WBC (Bld) 0.9 % 0-1 [facility] Basophils/100 WBC (Bld) 47.7 % 47-70 [facility] Basophils/100 WBC (Bld) 2.0 % 0-5 [facility] Eosinophils/100 WBC (Bld) 2.0 % 0-5 [facility] Neutrophils (Bld) [#/Vol] 1.7 10*3/uL 2.0-7.7 [facility] Neutrophils/100 WBC (Bld) 47.7 % 47-70 [facility] WBC (Bld) [#/Vol] 3.5 10*3/uL 4.4-11.[address] [facility] Blood erythrocytes count (nu mber/volume)Ordered By: Dr. Badillo on 03-11-2022 RBC (Bld) [#/Vol] 2.99 10*6/uL 4.2-5.4 [facility] Blood hemoglobin measurement (mass/volume)Ordered By: Dr. Badillo on 01-13-2023 Hemoglobin (Bld) [Mass/Vol] 11.0 g/dL 12.0-15.0 [facility] Blood lymphocytes/100 leukoc ytesOrdered By: Dr. Badillo on 03-11-2022 Lymphocytes/100 WBC (Bld) 38.4 % 19-41 [facility] Blood monocytes/100 leukocyt esOrdered By: Dr. Badillo on 03-11-2022 Monocytes/100 WBC (Bld) 8.7 % 0-10 [facility] Blood platelet adequacy dete ction by light microscopyOrdered By: Dr. Badillo on 03-11-2022 Platelets LM Ql (Bld) MKD DEC ADEQ [facility] Blood platelet mean volumeOr dered By: Dr. Badillo on 03-11-2022 Platelet mean volume (Bld) [Entitic vol] 12.8 fL 6.2-12.0 [facility] Determination of erythrocyte mean corpuscular volume (MCV)Ordered By: Dr. Badillo on 03-11-2022 MCV (RBC) [Entitic vol] 100.3 fL 81-99 [facility] Hematocrit Auto (Bld) [Volum e fraction]Ordered By: Dr. Badillo on 03-11-2022 Hematocrit (Bld) [Volume fraction] 30.0 % 37-47 [facility] Laboratory - Chemistry and C hemistry - challengeOrdered By: Dr. Badillo on 03-11-2022 CO2 [Moles/Vol] 23.0 mmol/L 21.0-32.0 [facility] Cobalamin (Vitamin B12) [Mass/Vol] 610 pg/mL 211-911 [facility] Magnesium [Mass/Vol] 1.7 mg/dL 1.6-2.6 [facility] Urea nitrogen/Creatinine [Mass ratio] 17.7 mg/mg 10-20 [facility] Laboratory - Hematology and Cell countsOrdered By: Dr. Badillo on 03-11-2022 Erythrocyte distribution width (RBC) [Entitic vol] 46.2 fL 35.1-43.9 [facility] Erythrocyte distribution width (RBC) [Ratio] 14.5 % 11.6-14.6 [facility] Immature granulocytes/100 WBC (Bld) 2.300 % 0.0-0.9 [facility] Comment on above: IG% - Immature Granu locytes (promyelocytes, myelocytes and metamyelocytes) > 1% indicates that a LEFT SHIFT is Present. MCH (RBC) [Entitic mass] 36.8 pg 27.0-32.0 [facility] Nucleated RBC/100 WBC (Bld) [Ratio] 1.2 % 0-5 [facility] MCHC Auto (RBC) [Mass/Vol]Or dered By: Dr. Badillo on 03-11-2022 MCHC (RBC) [Mass/Vol] 36.7 g/dL 32-36 [facility] Comment on above: Delta: 32.5 on 03/10050 No Panel InformationOrdered By: Dr. Badillo on 03-11-2022 Estimated GFR (MDRD) Amer 139 mL/min >60 [facility] Comment on above: GFR Calc Estimated GFR (MDRD) Non-Af Amer 115 mL/min >60 [facility] Comment on above: Non- GFR Calc Vitamin D 25-Hydroxy 17.5 ng/mL [facility] Comment on above: Vitamin D 25(OH) Sta tus Range Deficiency <20 ng/mL (50nmol/L) Insufficiency 20 - 30 ng/mL (50 - 75 nmol/L) Sufficiency 30 - 100 ng/mL (75 - 250 nmol/L) Toxicity >100 ng/mL (>250 nmol/L) 115 mL/min >60 [facility] 139 mL/min >60 [facility] 17.7 RATIO 10-20 [facility] 1.7 mg/dL 1.6-2.6 [facility] 23.0 mmol/L 21.0-32.0 [facility] 610 pg/mL 211-911 [facility] 17.5 ng/mL [facility] 36.8 pg 27.0-32.0 [facility] 14.5 % 11.6-14.6 [facility] 46.2 fl 35.1-43.9 [facility] 2.300 % 0.0-0.9 [facility] 1.2 % 0-5 [facility] Platelets bldOrdered By: Dr. Badillo on 03-11-2022 Platelets (Bld) [#/Vol] 43 10*3/uL 150-450 [facility] Review by pathologistOrdered By: Dr. Badillo on 03-11-2022 Pathologist review Kirk (Unsp spec) [Interp] Reviewed [facility] Comment on above: Pancytopenia.Leukope lynnette and Neutropenia.Macrocytic anemia.Marked ThrombocytopeniaClinical correlation necessary.Randy Stoddard M.D. 03/15/22 Serum or plasma calcium charles urement (mass/volume)Ordered By: Dr. Badillo on 03-11-2022 Calcium [Mass/Vol] 8.5 mg/dL 8.5-10.[address] [facility] Serum or plasma creatinine m easurement (mass/volume)Ordered By: Dr. Badillo on 03-11-2022 Creatinine [Mass/Vol] 0.62 mg/dL 0.55-1.02 [facility] Comment on above: The validity of the calculated GFR & GFRAA in patients over 70 years has not been determined. Clinical correlation is essential. Serum or plasma urea nitroge n measurement (mass/volume)Ordered By: Dr. Badillo on 03-11-2022 Urea nitrogen [Mass/Vol] 11 mg/dL 7-18 [facility] Thin prep Papanicolaou smear with manual screeningOrdered By: Dr. Badillo on 03-11-2022 Thin prep Papanicolaou smear with manual screening 10 5-15 [facility] Absolute lymphocyte countOrd ered By: Dr. Benson on 03-10-2022 Lymphocytes Auto (Unsp spec) [#/Vol] 1.43 10*3/uL 0.83-4.51 [facility] Basophil percentageOrdered B y: Dr. Benson on 03-10-2022 Basophil percentage Not Reportable [facility] Basophil percentage 84 mg/dL 74-106 [facility] Basophil percentage 5.2 g/dL 6.4-8.2 [facility] Basophil percentage 0.50 mg/dL 0.20-1.00 [facility] Basophil percentage 136 mmol/L 136-145 [facility] Basophil percentage 3.2 mmol/L 3.5-5.1 [facility] Basophil percentage 104 mmol/L 98-107 [facility] Basophils (Bld) [#/Vol] 3.4 10*3/uL 4.4-11.0 [facility] Basophils (Bld) [#/Vol] 1.7 10*3/uL 2.0-7.7 [facility] Bilirubin [Mass/Vol] 0.50 mg/dL 0.20-1.00 [facility] Comment on above: For patients on eltr ombopag therapy, use of Dimension [place] TBIL is not recommended. Chloride [Moles/Vol] 104 mmol/L 98-107 [facility] Glucose [Mass/Vol] 84 mg/dL 74-[address] [facility] Neutrophils (Bld) [#/Vol] 1.7 10*3/uL 2.0-7.7 [facility] Potassium [Moles/Vol] 3.2 mmol/L 3.5-5.1 [facility] Comment on above: Moderate Hemolysis, Result may be falsely increased. Protein [Mass/Vol] 5.2 g/dL 6.4-8.[address] [facility] Sodium [Moles/Vol] 136 mmol/L 136-[address] [facility] WBC (Bld) [#/Vol] 3.4 10*3/uL 4.4-11.[address] [facility] Blood band neutrophil count as percentage of total leukocytesOrdered By: Dr. Benson on 03-10-2022 Band form neutrophils/100 WBC (Bld) 2 % 0-5 [facility] Blood erythrocytes count (nu mber/volume)Ordered By: Dr. Benson on 03-10-2022 RBC (Bld) [#/Vol] 2.87 10*6/uL 4.2-5.4 [facility] Blood hemoglobin measurement (mass/volume)Ordered By: Dr. Benson on 03-10-2022 Hemoglobin (Bld) [Mass/Vol] 9.4 g/dL 12.0-15.0 [facility] Blood lymphocytes/100 leukoc ytesOrdered By: Dr. Benson on 03-10-2022 Lymphocytes/100 WBC (Bld) 42 % 19-41 [facility] Blood monocytes/100 leukocyt esOrdered By: Dr. Benson on 03-10-2022 Monocytes/100 WBC (Bld) 1 % 0-10 [facility] Blood platelet adequacy dete ction by light microscopyOrdered By: Dr. Benson on 03-10-2022 Platelets LM Ql (Bld) MOD DEC ADEQ [facility] Blood platelet mean volumeOr dered By: Dr. eBnson on 03-10-2022 Platelet mean volume (Bld) [Entitic vol] 12.7 fL 6.2-12.0 [facility] Blood segmented neutrophils/ [address]: [address] Benson on 03-10-2022 Segmented neutrophils/100 WBC (Bld) 49 % 47-70 [facility] Determination of erythrocyte mean corpuscular volume (MCV)Ordered By: Dr. Benson on 03-10-2022 MCV (RBC) [Entitic vol] 100.7 fL 81-99 [facility] Direct bilirubinOrdered By: Dr. Benson on 03-10-2022 Bilirubin.direct [Mass/Vol] 0.09 mg/dL 0.00-0.30 [facility] Hematocrit Auto (Bld) [Volum e fraction]Ordered By: Dr. Benson on 03-10-2022 Hematocrit (Bld) [Volume fraction] 28.9 % 37-47 [facility] Laboratory - Chemistry and C hemistry - challengeOrdered By: Dr. Benson on 03-10-2022 ALP [Catalytic activity/Vol] 55 U/L 45-117 [facility] ALT [Catalytic activity/Vol] 169 U/L 13-56 [facility] CO2 [Moles/Vol] 26.0 mmol/L 21.0-32.0 [facility] Globulin (S) [Mass/Vol] 2.7 g/dL 2.2-4.2 [facility] Urea nitrogen/Creatinine [Mass ratio] 25.3 mg/mg 10-20 [facility] Laboratory - Hematology and Cell countsOrdered By: Dr. Benson on 03-10-2022 Erythrocyte distribution width (RBC) [Entitic vol] 46.6 fL 35.1-43.9 [facility] Erythrocyte distribution width (RBC) [Ratio] 12.6 % 11.6-14.6 [facility] MCH (RBC) [Entitic mass] 32.8 pg 27.0-32.0 [facility] Myelocytes/100 WBC (Bld) 3 % 0-0 [facility] MCHC Auto (RBC) [Mass/Vol]Or dered By: Dr. Benson on 03-10-2022 MCHC (RBC) [Mass/Vol] 32.5 g/dL 32-36 [facility] Macrocytes detectionOrdered By: Dr. Benson on 03-10-2022 Macrocytes Ql (Bld) RARE [facility] No Panel InformationOrdered By: Dr. Benson on 03-10-2022 Atypical Lymphocytes 2+ % [facility] Estimated Creatinine Clearance Calc 156.05 ml/min [facility] Estimated GFR (MDRD) Amer 189 mL/min >60 [facility] Comment on above: GFR Calc Estimated GFR (MDRD) Non-Af Amer 156 mL/min >60 [facility] Comment on above: Non- GFR Calc 32.8 pg 27.0-32.0 [facility] 12.6 % 11.6-14.6 [facility] 46.6 fl 35.1-43.9 [facility] 3 % 0-0 [facility] 2+ % [facility] 156 mL/min >60 [facility] 189 mL/min >60 [facility] 156.05 ml/min [facility] 25.3 RATIO 10-20 [facility] 2.7 g/dL 2.2-4.2 [facility] 55 U/L 45-117 [facility] 169 U/L 13-56 [facility] 26.0 mmol/L 21.0-32.0 [facility] Platelets bldOrdered By: Dr. Benson on 03-10-2022 Platelets (Bld) [#/Vol] 69 10*3/uL 150-450 [facility] RBC morphologyOrdered By: Dr Chapincito Benson on 03-10-2022 RBC morphology finding Nom (Bld) NORM C+C NORMAL NORM C&C [facility] Review by pathologiston 02-27 Pathologist review Kirk (Unsp spec) [Interp] June [facility] Work Phone: Review by pathologistOrdered By: Dr. Benson on 03-10-2022 Pathologist review Kirk (Unsp spec) [Interp] Reviewed [facility] Comment on above: Previous reported re sult: Mckayla chi Edited by: RGOPETE on 03/11/22:1143Pancytopenia.Leukopenia and Neutropenia.Macrocytic anemia.ThrombocytopeniaClinical correlation necessary.Randy Stoddard M.D. 03/11/22 AMENDED REPORT 03/11/22 1143 PATH REV previously reported as: Mckayla chi Serum or plasma albumin charles urement (mass/volume)Ordered By: Dr. Benson on 03-10-2022 Albumin [Mass/Vol] 2.5 g/dL 3.2-5.[address] [facility] Serum or plasma calcium charles urement (mass/volume)Ordered By: Dr. Benson on 03-10-2022 Calcium [Mass/Vol] 8.3 mg/dL 8.5-10.[address] [facility] Serum or plasma creatinine m easurement (mass/volume)Ordered By: Dr. Benson on 03-10-2022 Creatinine [Mass/Vol] 0.48 mg/dL 0.55-1.02 [facility] Comment on above: The validity of the calculated GFR & GFRAA in patients over 70 years has not been determined. Clinical correlation is essential. Serum or plasma urea nitroge n measurement (mass/volume)Ordered By: Dr. Benson on 03-10-2022 Urea nitrogen [Mass/Vol] 12 mg/dL 7-18 [facility] Thin prep Papanicolaou smear with manual screeningOrdered By: Dr. Benson on 03-10-2022 Thin prep Papanicolaou smear with manual screening 202 U/L 15-37 [facility] Comment on above: Moderate Hemolysis, Result may be falsely increased. Thin prep Papanicolaou smear with manual screening 6 5-15 [facility] Total cell countOrdered By: Dr. Benson on 03-10-2022 Cells counted Molgen (Bld/Tiss) [#] 100 MANUAL DIFF [facility] Blood metamyelocytes/100 felix kocytesOrdered By: Dr. Benson on 03-09-2022 Metamyelocytes/100 WBC (Bld) 2 % 0-1 [facility] Aldolase ser/plasOrdered By: Dr. Benson on 03-08-2022 Aldolase [Catalytic activity/Vol] 14.9 mU/mL 3.3-10.3 [facility] Comment on above: Performed at: [address] [id number] Director: Cong Morrow PhD, Phone: [phone] Basophil percentageOrdered B y: Dr. Benson on 03-08-2022 Basophil percentage 2.8 mg/dL 2.5-4.9 [facility] Basophil percentage Not Reportable [facility] Basophils/100 WBC (Bld) 0.5 % 0-1 [facility] Basophils/100 WBC (Bld) 0.0 % 0-5 [facility] Eosinophils/100 WBC (Bld) 0.0 % 0-5 [facility] Blood lymphocytes/100 leukoc ytesOrdered By: Dr. Benson on 03-08-2022 Lymphocytes/100 WBC (Bld) 20.5 % 19-41 [facility] Blood manual differential co mment interpretation (narrative result)Ordered By: Dr. Benson on 03-08-2022 Manual differential comment Kirk (Bld) [Interp] SCANNED [facility] Blood monocytes/100 leukocyt esOrdered By: Dr. Benson on 03-08-2022 Monocytes/100 WBC (Bld) 15.6 % 0-10 [facility] Laboratory - Chemistry and C hemistry - challengeOrdered By: Dr. Benson on 03-08-2022 CK [Catalytic activity/Vol] 471 U/L 26-192 [facility] Magnesium [Mass/Vol] 1.8 mg/dL 1.6-2.6 [facility] Laboratory - Hematology and Cell countsOrdered By: Dr. Benson on 03-08-2022 Immature granulocytes/100 WBC (Bld) 1.500 % 0.0-0.9 [facility] Comment on above: IG% - Immature Granu locytes (promyelocytes, myelocytes and metamyelocytes) > 1% indicates that a LEFT SHIFT is Present. Nucleated RBC/100 WBC (Bld) [Ratio] 2.4 % 0-5 [facility] No Panel InformationOrdered By: Dr. Benson on 03-08-2022 Anti-Nuclear Antibody Screen Negative Negative [facility] Comment on above: Performed at: - [address] [id number] Director: Cong Morrow PhD, Phone: [phone] Centromere B Antibody Not Reportable [facility] [employer]IST Antibody Not Reportable [facility] 1.500 % 0.0-0.9 [facility] 2.4 % 0-5 [facility] 471 U/L 26-192 [facility] 1.8 mg/dL 1.6-2.6 [facility] Negative Negative [facility] Not Reportable [facility] Serum DNA double strand anti body assay (units/volume)Ordered By: Dr. Benson on 03-08-2022 DNA double strand Ab Qn (S) Not Reportable [facility] Serum Radha-1 antibody assay (u nits/volume)Ordered By: Dr. Benson on 03-08-2022 Radha-1 extractable nuclear Ab Qn (S) Not Reportable [facility] Serum Scl-70 extractable nuc lear antibody assay (units/volume)Ordered By: Dr. Benson on 03-08-2022 SCL-70 extractable nuclear Ab Qn (S) Not Reportable [facility] Serum Richard extractable nucl ear antibody detectionOrdered By: Dr. Benson on 03-08-2022 Richard extractable nuclear Ab Ql (S) Not Reportable [facility] Serum or plasma albumin/glob ulin mass ratioOrdered By: Dr. Hatch on 03-07-2022 Albumin/Globulin [Mass ratio] 0.8 {ratio} 0.9-2.4 [facility] HIV 1 and HIV-2 antibody ass ay with HIV-1 p24 antigen detectionOrdered By: Dr. Hatch on 03-05-2022 HIV 1+2 Ab+HIV1 p24 Ag IA Ql Non-Reactive Nonreactive [facility] Hemoglobin in reticulocytes (mass per reticulocyte)Ordered By: Dr. Hatch on 03-05-2022 Hemoglobin (Reticulocytes) [Entitic mass] 34.6 pg 30-35 [facility] Iron measurement (mass/mass) Ordered By: Dr. Hatch on 03-05-2022 Iron (Unsp spec) [Mass/Mass] 58 ug/dL 50-170 [facility] No Panel InformationOrdered By: Dr. Hatch on 03-05-2022 Hepatitis A IgM Antibody Negative Negative [facility] Hepatitis B Core IgM Antibody Negative Negative [facility] Hepatitis C Antibody (EIA) <0.1 s/co ratio 0.0-0.9 [facility] Hepatitis C Antibody Comment Comment . [facility] Comment on above: NegativeNot infected with HCV, unless recent infection issuspected or other evidence exists to indicate HCVinfection.Performed at: [facility] [address] [id number] Director: Cong Morrow PhD, Phone: [phone] Negative Negative [facility] <0.1 s/co ratio 0.0-0.9 [facility] Comment . [facility] Immature Reticulocyte Fraction 10.10 % 3.00-15.90 [facility] Reticulocyte Count 0.61 % 0.5-1.[address] [facility] Total Iron Binding Capacity 100 ug/dL 250-450 [facility] 0.61 % 0.5-1.5 [facility] 10.10 % 3.00-15.90 [facility] 100 ug/dL 250-450 [facility] Serum or plasma ferritin amandeep surement (mass/volume)Ordered By: Dr. Hatch on 03-05-2022 Ferritin [Mass/Vol] 120 ng/mL 8-252 [facility] Serum or plasma hepatitis B virus surface antigen detection by immunoassayOrdered By: Dr. Hatch on 03-05-2022 HBV surface Ag IA Ql Negative Negative [facility] Serum or plasma iron saturat ion measurement (mass fraction)Ordered By: Dr. Hatch on 03-05-2022 Iron saturation [Mass fraction] 58.0 % 15.0-55.0 [facility] Laboratory - Hematology and Cell countsOrdered By: Dr. Hatch on 03-04-2022 Anisocytosis Ql (Bld) 1+ [facility] No Panel InformationOrdered By: Dr. Hatch on 03-04-2022 1+ [facility] INR in Blood by Coagulation assayOrdered By: Dr. Felipe on 03-03-2022 INR Coag (Bld) [Relative time] 1.3 {INR} [facility] [facility] CoagulationOrde red By: Dr. Felipe on 03-03-2022 aPTT Coag (Bld) [Time] 29.1 s 24.1-36.2 [facility] PT Coag (PPP) [Time] 16.3 s 11.7-14.9 [facility] No Panel InformationOrdered By: Dr. Felipe on 03-03-2022 Levetiracetam (Keppra) Level 29.1 ug/mL 10.0-40.0 [facility] Comment on above: Performed at: [employer] [address] [id number] Director: Aury Garcia MD, Phone: [phone] 16.3 SECONDS 11.7-14.9 [facility] 29.1 Seconds 24.1-36.2 [facility] 29.1 ug/mL 10.0-40.0 [facility] No Panel InformationOrdered By: Dr. Massey on 03-03-2022 RBC Folate Hemolysate 181.0 ng/mL Not Estab. [facility] Red Blood Cell Folate 642 ng/mL >498 [facility] Comment on above: Performed at: [employer] [address] [id number] Director: Cong Morrow PhD, Phone: [phone] 181.0 ng/mL Not Estab. [facility] 642 ng/mL >498 [facility] Thin prep Papanicolaou smear with manual screeningOrdered By: Dr. Massey on 03-03-2022 Thin prep Papanicolaou smear with manual screening 28.2 % 34.0-46.6 [facility] Absolute lymphocyte counton 03-02-2022 Lymphocytes Auto (Unsp spec) [#/Vol] 0.75 10*3/uL 0.83-4.51 [facility] Work Phone: Basophil percentageOrdered B y: Dr. Huerta on 03-02-2022 Basophil percentage 50-100 SEEN /hpf 0-5 [facility] Basophil percentage 24.3 ug/mL 10.0-40.0 [facility] Basophil percentageon 2022 Basophils/100 WBC (Bld) 0.0 % 0-1 [facility] Work Phone: Bilirubin [Mass/Vol] 0.40 mg/dL 0.20-1.00 [facility] Work Phone: Comment on above: For patients on eltr ombopag therapy, use of [employer] [place] TBIL is not recommended. Chloride [Moles/Vol] 113 mmol/L 98-107 [facility] Work Phone: Eosinophils/100 WBC (Bld) 1.2 % 0-5 [facility] Work Phone: Glucose [Mass/Vol] 90 mg/dL 74-[address] [facility] Work Phone: Neutrophils (Bld) [#/Vol] 1.7 10*3/uL 2.0-7.7 [facility] Work Phone: Neutrophils/100 WBC (Bld) 64.0 % 47-70 [facility] Work Phone: Potassium [Moles/Vol] 3.0 mmol/L 3.5-5.1 [facility] Work Phone: Protein [Mass/Vol] 5.1 g/dL 6.4-8.[address] [facility] Work Phone: Sodium [Moles/Vol] 143 mmol/L 136-[address] [facility] Work Phone: WBC (Bld) [#/Vol] 2.6 10*3/uL 4.4-11.[address] [facility] Work Phone: Bilirubin Test strip Ql (U)O rdered By: Dr. Huerta on 03-02-2022 Bilirubin Ql (U) 1 mg/dL Negative [facility] Comment on above: COLOR OF URINE MAY A FFECT DIPSTICK RESULTS. Blood erythrocytes count (nu mber/volume)on 03-02-2022 RBC (Bld) [#/Vol] 2.76 10*6/uL 4.2-5.4 [facility] Work Phone: Blood hemoglobin measurement (mass/volume)on 03-02-2022 Hemoglobin (Bld) [Mass/Vol] 9.2 g/dL 12.0-15.0 [facility] Work Phone: Blood lymphocytes/100 leukoc yteson 03-02-2022 Lymphocytes/100 WBC (Bld) 29.0 % 19-41 [facility] Work Phone: Blood monocytes/100 leukocyt eson 03-02-2022 Monocytes/100 WBC (Bld) 5.4 % 0-10 [facility] Work Phone: Blood platelet mean volumeon 03-02-2022 Platelet mean volume (Bld) [Entitic vol] 11.8 fL 6.2-12.0 [facility] Work Phone: COVID-19 virus antigen assay Ordered By: Dr. Massey on 03-02-2022 SARS-CoV-2 (COVID-19) Ag IA.rapid Ql (Resp) [facility] Determination of erythrocyte mean corpuscular volume (MCV)on 03-02-2022 MCV (RBC) [Entitic vol] 104.0 fL 81-99 [facility] Work Phone: Hematocrit Auto (Bld) [Volum e fraction]on 03-02-2022 Hematocrit (Bld) [Volume fraction] 28.7 % 37-47 [facility] Work Phone: Ketones Test strip Ql (U)Ord ered By: Dr. Huerta on 03-02-2022 Ketones Ql (U) 15 mg/dl Negative [facility] Laboratory - Chemistry and C hemistry - challengeOrdered By: Dr. Felipe on 03-02-2022 HCG ( test) Ql (U) Negative [facility] Comment on above: Very dilute urine sp ecimens, as indicated by a low specificgravity, may not contain employee representative levels of hCG. If is still suspected, a first morning urinespecimen should be collected 48 hours later and tested. Laboratory - Chemistry and C hemistry - challengeon 03-02-2022 ALP [Catalytic activity/Vol] 40 U/L 45-117 [facility] Work Phone: ALT [Catalytic activity/Vol] 61 U/L 13-56 [facility] Work Phone: [phone] CO2 [Moles/Vol] 21.0 mmol/L 21.0-32.0 [facility] Work Phone: [phone] Globulin (S) [Mass/Vol] 2.5 g/dL 2.2-4.2 [facility] Work Phone: [phone] Urea nitrogen/Creatinine [Mass ratio] 32.1 mg/mg 10-20 [facility] Work Phone: [phone] Laboratory - Chemistry and C hemistry - challengeOrdered By: Dr. Massey on 03-02-2022 Cobalamin (Vitamin B12) [Mass/Vol] 261 pg/mL 211-911 [facility] Laboratory - Hematology and Cell countson 03-02-2022 Erythrocyte distribution width (RBC) [Entitic vol] 50.9 fL 35.1-43.9 [facility] Work Phone: [phone] Erythrocyte distribution width (RBC) [Ratio] 13.4 % 11.6-14.6 [facility] Work Phone: [phone] Immature granulocytes/100 WBC (Bld) 0.400 % 0.0-0.9 [facility] Work Phone: [phone] Comment on above: IG% - Immature Granu locytes (promyelocytes, myelocytes and metamyelocytes) > 1% indicates that a LEFT SHIFT is Present. MCH (RBC) [Entitic mass] 33.3 pg 27.0-32.0 [facility] Work Phone: Nucleated RBC/100 WBC (Bld) [Ratio] 0 % 0-5 [facility] Work Phone: [phone] MCHC Auto (RBC) [Mass/Vol]on 03-02-2022 MCHC (RBC) [Mass/Vol] 32.1 g/dL 32-36 [facility] Work Phone: [phone] Mucus LM Ql (Urine sed)Order ed By: Dr. Huerta on 03-02-2022 Mucus Ql (Urine sed) 0 SEEN /hpf [facility] Nitrite Test strip Ql (U)Ord ered By: Dr. Huerta on 03-02-2022 Nitrite Ql (U) Positive Negative [facility] No Panel InformationOrdered By: Dr. Felipe on 03-02-2022 Negative [facility] No Panel Informationon 03-02 Estimated Creatinine Clearance Calc 133.76 ml/min [facility] Work Phone: [phone] Estimated GFR (MDRD) Amer 156 mL/min >60 [facility] Work Phone: Comment on above: GFR Calc Estimated GFR (MDRD) Non-Af Amer 129 mL/min >60 [facility] Work Phone: Comment on above: Non- GFR Calc No Panel InformationOrdered By: Dr. Massey on 03-02-2022 261 pg/mL 211-911 [facility] Platelets bldon 03-02-2022 Platelets (Bld) [#/Vol] 120 10*3/uL 150-450 [facility] Work Phone: [phone] Protein Test strip Ql (U)Ord ered By: Dr. Huerta on 03-02-2022 Protein Ql (U) 30 mg/dl Negative [facility] Serum or plasma albumin charles urement (mass/volume)on 03-02-2022 Albumin [Mass/Vol] 2.6 g/dL 3.2-5.[address] [facility] Work Phone: [phone] Serum or plasma albumin/glob ulin mass ratioon 03-02-2022 Albumin/Globulin [Mass ratio] 1.0 {ratio} 0.9-2.4 [facility] Work Phone: [phone] Serum or plasma calcium charles urement (mass/volume)on 03-02-2022 Calcium [Mass/Vol] 7.6 mg/dL 8.5-10.[address] [facility] Work Phone: [phone] Serum or plasma creatinine m easurement (mass/volume)on 03-02-2022 Creatinine [Mass/Vol] 0.56 mg/dL 0.55-1.02 [facility] Work Phone: Comment on above: The validity of the calculated GFR & GFRAA in patients over 70 years has not been determined. Clinical correlation is essential. Serum or plasma folate measu rement (mass/volume)Ordered By: Dr. Massey on 03-02-2022 Folate [Mass/Vol] 1.20 ng/mL 3.1-55.4 [facility] Comment on above: Slight Hemolysis, Re sult may be falsely increased. Serum or plasma urea nitroge n measurement (mass/volume)on 03-02-2022 Urea nitrogen [Mass/Vol] 18 mg/dL 7-18 [facility] Work Phone: Squamous epithelial cells de tection in urine sediment by light microscopyOrdered By: Dr. Huerta on 03-02-2022 Epithelial cells.squamous LM Ql (Urine sed) 5-10 SEEN /hpf 5-10 [facility] Thin prep Papanicolaou smear with manual screeningon 03-02-2022 Thin prep Papanicolaou smear with manual screening 310 U/L 15-37 [facility] Work Phone: Thin prep Papanicolaou smear with manual screening 9 5-15 [facility] Work Phone: Urine blood detectionOrdered By: Dr. Huerta on 03-02-2022 RBC Ql (U) 250 /ul Negative [facility] RBC Ql (U) 25-50 SEEN /hpf 0-5 [facility] Urine clarityOrdered By: Dr. Huerta on 03-02-2022 Clarity (U) Cloudy Clear [facility] Urine color determinationOrd ered By: Dr. Huerta on 03-02-2022 Color (U) Sheba Yellow [facility] Urine glucose detectionOrder ed By: Dr. Huerta on 03-02-2022 Glucose Ql (U) Normal mg/dl Normal [facility] Urine leukocyte esterase det ection by dipstickOrdered By: Dr. Huerta on 03-02-2022 Leukocyte esterase Test strip Ql (U) 500 /ul Negative [facility] Urine pHOrdered By: Dr. Zeferino ureña on 03-02-2022 pH (U) 5.0 [pH] 5.0 - 8.0 [facility] Urine sediment bacteria coun t by microscopy (number/high power field)Ordered By: Dr. Huerta on 03-02-2022 Bacteria LM.HPF (Urine sed) [#/Area] 3 /[HPF] None Seen [facility] Urine specific gravity measu rementOrdered By: Dr. Huerta on 03-02-2022 Specific gravity (U) [Rel density] 1.025 1.002-1.030 [facility] Urobilinogen Auto test strip Ql (U)Ordered By: Dr. Huerta on 03-02-2022 Urobilinogen Ql (U) 4 mg/dl Normal [facility] Bacteria identified Cx Nom ( U)Ordered By: Dr. King on 02-19-2022 Culture, urine Positive [facility] Culture, urineOrdered By: Dr Chapincito King on 02-19-2022 Bacteria identified Cx Nom (U) Positive [facility] Absolute lymphocyte countOrd ered By: Dr. King on 02-17-2022 Lymphocytes Auto (Unsp spec) [#/Vol] 1.33 10*3/uL 0.83-4.51 [facility] Amorphous sediment detection in urine sediment by light microscopyOrdered By: Dr. King on 02-17-2022 Amorphous sediment LM Ql (Urine sed) 3+ URATE [facility] Basophil percentageOrdered B y: Dr. King on 02-17-2022 Basophil percentage 25-50 SEEN /hpf 0-5 [facility] Basophil percentage 93 mg/dL 74-106 [facility] Basophil percentage 138 mmol/L 136-145 [facility] Basophil percentage 3.7 mmol/L 3.5-5.1 [facility] Basophil percentage 107 mmol/L 98-107 [facility] Basophils (Bld) [#/Vol] 5.0 10*3/uL 4.4-11.0 [facility] Basophils (Bld) [#/Vol] 3.3 10*3/uL 2.0-7.7 [facility] Basophils/100 WBC (Bld) 0.2 % 0-1 [facility] Basophils/100 WBC (Bld) 66.0 % 47-70 [facility] Basophils/100 WBC (Bld) 1.0 % 0-5 [facility] Chloride [Moles/Vol] 107 mmol/L 98-107 [facility] Eosinophils/100 WBC (Bld) 1.0 % 0-5 [facility] Glucose [Mass/Vol] 93 mg/dL 74-[address] [facility] Neutrophils (Bld) [#/Vol] 3.3 10*3/uL 2.0-7.7 [facility] Neutrophils/100 WBC (Bld) 66.0 % 47-70 [facility] Potassium [Moles/Vol] 3.7 mmol/L 3.5-5.1 [facility] Sodium [Moles/Vol] 138 mmol/L 136-[address] [facility] WBC (Bld) [#/Vol] 5.0 10*3/uL 4.4-11.[address] [facility] Bilirubin Test strip Ql (U)O rdered By: Dr. King on 02-17-2022 Bilirubin Ql (U) 3 mg/dL Negative [facility] Comment on above: COLOR OF URINE MAY A FFECT DIPSTICK RESULTS. Blood erythrocytes count (nu mber/volume)Ordered By: Dr. King on 02-17-2022 RBC (Bld) [#/Vol] 3.35 10*6/uL 4.2-5.4 [facility] Blood hemoglobin measurement (mass/volume)Ordered By: Dr. King on 02-17-2022 Hemoglobin (Bld) [Mass/Vol] 11.2 g/dL 12.0-15.0 [facility] Blood lymphocytes/100 leukoc ytesOrdered By: Dr. King on 02-17-2022 Lymphocytes/100 WBC (Bld) 26.8 % 19-41 [facility] Blood monocytes/100 leukocyt esOrdered By: Dr. King on 02-17-2022 Monocytes/100 WBC (Bld) 5.8 % 0-10 [facility] Blood platelet mean volumeOr dered By: Dr. King on 02-17-2022 Platelet mean volume (Bld) [Entitic vol] 11.2 fL 6.2-12.0 [facility] Determination of erythrocyte mean corpuscular volume (MCV)Ordered By: Dr. King on 02-17-2022 MCV (RBC) [Entitic vol] 103.6 fL 81-99 [facility] Hematocrit Auto (Bld) [Volum e fraction]Ordered By: Dr. King on 02-17-2022 Hematocrit (Bld) [Volume fraction] 34.7 % 37-47 [facility] Ketones Test strip Ql (U)Ord ered By: Dr. King on 02-17-2022 Ketones Ql (U) 50 mg/dl Negative [facility] Laboratory - Chemistry and C hemistry - challengeOrdered By: Dr. King on 02-17-2022 CO2 [Moles/Vol] 26.0 mmol/L 21.0-32.0 [facility] Urea nitrogen/Creatinine [Mass ratio] 14.7 mg/mg 10-20 [facility] Laboratory - Hematology and Cell countsOrdered By: Dr. King on 02-17-2022 Erythrocyte distribution width (RBC) [Entitic vol] 51.4 fL 35.1-43.9 [facility] Erythrocyte distribution width (RBC) [Ratio] 13.2 % 11.6-14.6 [facility] Immature granulocytes/100 WBC (Bld) 0.200 % 0.0-0.9 [facility] Comment on above: IG% - Immature Granu locytes (promyelocytes, myelocytes and metamyelocytes) > 1% indicates that a LEFT SHIFT is Present. MCH (RBC) [Entitic mass] 33.4 pg 27.0-32.0 [facility] Nucleated RBC/100 WBC (Bld) [Ratio] 0 % 0-5 [facility] MCHC Auto (RBC) [Mass/Vol]Or dered By: Dr. King on 02-17-2022 MCHC (RBC) [Mass/Vol] 32.3 g/dL 32-36 [facility] Mucus LM Ql (Urine sed)Order ed By: Dr. King on 02-17-2022 Mucus Ql (Urine sed) 0 SEEN /hpf [facility] Nitrite Test strip Ql (U)Ord ered By: Dr. King on 02-17-2022 Nitrite Ql (U) Positive Negative [facility] No Panel InformationOrdered By: Dr. King on 02-17-2022 Estimated Creatinine Clearance Calc 84.52 ml/min [facility] Estimated GFR (MDRD) Amer 101 mL/min >60 [facility] Comment on above: GFR Calc Estimated GFR (MDRD) Non-Af Amer 83 mL/min >60 [facility] Comment on above: Non- GFR Calc 33.4 pg 27.0-32.0 [facility] 13.2 % 11.6-14.6 [facility] 51.4 fl 35.1-43.9 [facility] 0.200 % 0.0-0.9 [facility] 0 % 0-5 [facility] 83 mL/min >60 [facility] 101 mL/min >60 [facility] 84.52 ml/min [facility] 14.7 RATIO 10-20 [facility] 26.0 mmol/L 21.0-32.0 [facility] Platelets bldOrdered By: Dr. King on 02-17-2022 Platelets (Bld) [#/Vol] 202 10*3/uL 150-450 [facility] Protein Test strip Ql (U)Ord ered By: Dr. King on 02-17-2022 Protein Ql (U) 30 mg/dl Negative [facility] Serum or plasma calcium charles urement (mass/volume)Ordered By: Dr. King on 02-17-2022 Calcium [Mass/Vol] 8.7 mg/dL 8.5-10.[address] [facility] Serum or plasma creatinine m easurement (mass/volume)Ordered By: Dr. King on 02-17-2022 Creatinine [Mass/Vol] 0.82 mg/dL 0.55-1.02 [facility] Comment on above: The validity of the calculated GFR & GFRAA in patients over 70 years has not been determined. Clinical correlation is essential. Serum or plasma urea nitroge n measurement (mass/volume)Ordered By: Dr. King on 02-17-2022 Urea nitrogen [Mass/Vol] 12 mg/dL 7-18 [facility] Squamous epithelial cells de tection in urine sediment by light microscopyOrdered By: Dr. King on 02-17-2022 Epithelial cells.squamous LM Ql (Urine sed) 0-5 SEEN /hpf 5-10 [facility] Thin prep Papanicolaou smear with manual screeningOrdered By: Dr. King on 02-17-2022 Thin prep Papanicolaou smear with manual screening 5 5-15 [facility] Urine blood detectionOrdered By: Dr. King on 02-17-2022 RBC Ql (U) 25 /ul Negative [facility] RBC Ql (U) 0-5 SEEN /hpf 0-5 [facility] Urine clarityOrdered By: Dr. King on 02-17-2022 Clarity (U) Cloudy Clear [facility] Urine color determinationOrd ered By: Dr. King on 02-17-2022 Color (U) Yellow Yellow [facility] Urine glucose detectionOrder ed By: Dr. King on 02-17-2022 Glucose Ql (U) Normal mg/dl Normal [facility] Urine leukocyte esterase det ection by dipstickOrdered By: Dr. King on 02-17-2022 Leukocyte esterase Test strip Ql (U) 500 /ul Negative [facility] Urine pHOrdered By: Dr. India wilson on 02-17-2022 pH (U) 5.0 [pH] 5.0 - 8.0 [facility] Urine sediment bacteria coun t by microscopy (number/high power field)Ordered By: Dr. King on 02-17-2022 Bacteria LM.HPF (Urine sed) [#/Area] 2 /[HPF] None Seen [facility] Urine specific gravity measu rementOrdered By: Dr. King on 02-17-2022 Specific gravity (U) [Rel density] 1.030 1.002-1.030 [facility] Urobilinogen Auto test strip Ql (U)Ordered By: Dr. King on 02-17-2022 Urobilinogen Ql (U) 8 mg/dl Normal [facility] No Panel Informationon 09-23 Levetiracetam (Keppra) Level 34.0 ug/mL 10.0-40.0 [facility] Work Phone: Comment on above: Performed at: [address] [id number] Director: Aury Garcia MD, Phone: [phone] Serum or plasma topiramate m easurement (mass/volume)on 09-23-2021 Topiramate [Mass/Vol] 6.5 ug/mL 2.0-25.0 [facility] Work Phone: Comment on above: Detection Limit = 1. 5 Basophil percentageon 2021 Basophil percentage 10-25 SEEN /hpf 0-5 [facility] Work Phone: Bilirubin Test strip Ql (U)o n 09-19-2021 Bilirubin Ql (U) 3 mg/dL Negative [facility] Work Phone: Comment on above: COLOR OF URINE MAY A FFECT DIPSTICK RESULTS. Ketones Test strip Ql (U)on 09-19-2021 Ketones Ql (U) 15 mg/dl Negative [facility] Work Phone: Mucus LM Ql (Urine sed)on Mucus Ql (Urine sed) 1+ /hpf [facility] Work Phone: Nitrite Test strip Ql (U)on 09-19-2021 Nitrite Ql (U) Positive Negative [facility] Work Phone: Protein Test strip Ql (U)on 09-19-2021 Protein Ql (U) 30 mg/dl Negative [facility] Work Phone: Squamous epithelial cells de tection in urine sediment by light microscopyon 09-19-2021 Epithelial cells.squamous LM Ql (Urine sed) 5-10 SEEN /hpf 5-10 [facility] Work Phone: Urine blood detectionon 08-28 RBC Ql (U) 150 /ul Negative [facility] Work Phone: RBC Ql (U) 5-10 SEEN /hpf 0-5 [facility] Work Phone: Urine clarityon 09-19-2021 Clarity (U) Cloudy Clear [facility] Work Phone: Urine color determinationon 09-19-2021 Color (U) Brown Yellow [facility] Work Phone: Urine glucose detectionon Glucose Ql (U) Normal mg/dl Normal [facility] Work Phone: Urine leukocyte esterase det ection by dipstickon 09-19-2021 Leukocyte esterase Test strip Ql (U) 500 /ul Negative [facility] Work Phone: Urine pHon 09-19-2021 pH (U) 5.0 [pH] 5.0 - 8.0 [facility] Work Phone: Urine sediment bacteria coun t by microscopy (number/high power field)on 09-19-2021 Bacteria LM.HPF (Urine sed) [#/Area] 4 /[HPF] None Seen [facility] Work Phone: Urine sediment yeast count b y microscopy (number/high powered field)on 09-19-2021 Yeast LM.HPF (Urine sed) [#/Area] 1 /[HPF] None Seen [facility] Work Phone: Urine specific gravity measu rementon 09-19-2021 Specific gravity (U) [Rel density] 1.025 1.002-1.030 [facility] Work Phone: Urobilinogen Auto test strip Ql (U)on 09-19-2021 Urobilinogen Ql (U) 8 mg/dl Normal [facility] Work Phone: Basophil percentageon 2021 Basophil percentage 10-25 SEEN /hpf 0-5 [facility] Work Phone: Bilirubin Test strip Ql (U)o n 09-16-2021 Bilirubin Ql (U) 1 mg/dL Negative [facility] Work Phone: Comment on above: COLOR OF URINE MAY A FFECT DIPSTICK RESULTS. Ketones Test strip Ql (U)on 09-16-2021 Ketones Ql (U) 5 mg/dl Negative [facility] Work Phone: Mucus LM Ql (Urine sed)on Mucus Ql (Urine sed) 0 SEEN /hpf [facility] Work Phone: Nitrite Test strip Ql (U)on 09-16-2021 Nitrite Ql (U) Negative Negative [facility] Work Phone: Protein Test strip Ql (U)on 09-16-2021 Protein Ql (U) 30 mg/dl Negative [facility] Work Phone: Squamous epithelial cells de tection in urine sediment by light microscopyon 09-16-2021 Epithelial cells.squamous LM Ql (Urine sed) 25-50 SEEN /hpf 5-10 [facility] Work Phone: Urine blood detectionon 08-28 RBC Ql (U) 150 /ul Negative [facility] Work Phone: RBC Ql (U) 0-5 SEEN /hpf 0-5 [facility] Work Phone: Urine clarityon 09-16-2021 Clarity (U) Cloudy Clear [facility] Work Phone: Urine color determinationon 09-16-2021 Color (U) Yellow Yellow [facility] Work Phone: Urine glucose detectionon Glucose Ql (U) Normal mg/dl Normal [facility] Work Phone: Urine leukocyte esterase det ection by dipstickon 09-16-2021 Leukocyte esterase Test strip Ql (U) 100 /ul Negative [facility] Work Phone: Urine pHon 09-16-2021 pH (U) 5.0 [pH] 5.0 - 8.0 [facility] Work Phone: Urine sediment bacteria coun t by microscopy (number/high power field)on 09-16-2021 Bacteria LM.HPF (Urine sed) [#/Area] 2 /[HPF] None Seen [facility] Work Phone: Urine specific gravity measu rementon 09-16-2021 Specific gravity (U) [Rel density] 1.025 1.002-1.030 [facility] Work Phone: Urobilinogen Auto test strip Ql (U)on 09-16-2021 Urobilinogen Ql (U) 4 mg/dl Normal [facility] Work Phone: Basic Metabolic Panelon 07-0 Calcium [Mass/Vol] 8.9 mg/dL Normal 8.4-10.4 [facility] Comment on above: Performed By: #### B MP3, HEMDF #### [facility] [address], [place] Anion gap [Moles/Vol] 8 mmol/L Normal 3-13 [facility] Comment on above: Performed By: #### B MP3, HEMDF #### [facility] [address], [place] CO2 [Moles/Vol] 20 mmol/L Low 22-30 [facility] Comment on above: Performed By: #### B MP3, HEMDF #### [facility] [facility] [address], [place] Creatinine [Mass/Vol] 0.74 mg/dL Normal 0.52-1.25 [facility] Comment on above: Performed By: #### B MP3, HEMDF #### [facility] [address], [place] eGFR OTHER > 90.0 Normal >60 [facility] Comment on above: Result Comment: KDIG O guidelines provide the following GFR categories: Stage GFR(ml/min/1.73 m2) Terms G1 >=90 Normal or high G2 60-89 Mildly decreased* G3a 45-59 Mildly to moderately decreased G3b 30-44 Moderately to severely decreased G4 15-29 Severely decreased G5 <15 Kidney failure *Relative to young adult level. In the absence of evidence of kidney damage, neither GFR category G1 nor G2 fulfill the criteria for CKD. The CKD-EPI equation is validated in individuals 18 years of age and older. Currently the best equation for estimating glomerular filtration rate (GFR) from serum creatinine in children is the Bedside Galvan equation. It is less accurate in patients with extremes of muscle mass, restriction of dietary protein, ingestion of creatine, extra-renal metabolism of creatinine, or treatment with medications that affect renal tubular creatinine secretion. Performed By: #### B MP3, HEMDF #### [facility] [address], [place] GFR/1.73 sq M.predicted among blacks MDRD (S/P/Bld) [Vol rate/Area] mL/min/{1.73_m2} Normal >60 [facility] Comment on above: Performed By: #### B MP3, HEMDF #### [facility] [address] [place] [address] Glucose [Mass/Vol] 93 mg/dL Normal 70-100 [facility] Comment on above: Result Comment: Mode rately hemolysed, interpret with caution. Performed By: #### B MP3, HEMDF #### [facility] [address] [place] [address] Urea nitrogen [Mass/Vol] 4 mg/dL Low 9-20 [facility] Comment on above: Performed By: #### B MP3, HEMDF #### [facility] [address] [place] [address] Chloride [Moles/Vol] 106 mmol/L Normal 98-107 [facility] Comment on above: Performed By: #### B MP3, HEMDF #### [facility] [address] [place] [address] Potassium [Moles/Vol] 4.5 mmol/L Normal 3.5-5.1 [facility] Comment on above: Result Comment: Mode rately hemolysed, interpret with caution. Performed By: #### B MP3, HEMDF #### [facility] [address] [place] [address] Sodium [Moles/Vol] 135 mmol/L Normal 135-145 [facility] Comment on above: Performed By: #### B MP3, HEMDF #### [facility] [address] [place] [address] Anion gap [Moles/Vol] 8 mmol/L 3 - 13 mmol/L [facility] Calcium [Mass/Vol] 8.9 mg/dL 8.4 - 10. 4 mg/dL [facility] Chloride [Moles/Vol] 106 mmol/L 98 - 10 7 mmol/L [facility] CO2 [Moles/Vol] 20 mmol/L Low 22 - 30 mmol/L [facility] Creatinine [Mass/Vol] 0.74 mg/dL 0.52 - 1.25 mg/dL [facility] EGFR IF NonAfrican Peruvian >90.0 >60 mL/min [facility] Comment on above: KDIGO guidelines pro vide the following GFR categories: Stage GFR(ml/min/1.73 m2) Terms G1 >=90 Normal or high G2 60-89 Mildly decreased* G3a 45-59 Mildly to moderately decreased G3b 30-44 Moderately to severely decreased G4 15-29 Severely decreased G5 <15 Kidney failure *Relative to young adult level. In the absence of evidence of kidney damage, neither GFR category G1 nor G2 fulfill the criteria for CKD. The CKD-EPI equation is validated in individuals 18 years of age and older. Currently the best equation for estimating glomerular filtration rate (GFR) from serum creatinine in children is the Bedside Galvan equation. It is less accurate in patients with extremes of muscle mass, restriction of dietary protein, ingestion of creatine, extra-renal metabolism of creatinine, or treatment with medications that affect renal tubular creatinine secretion. GFR/1.73 sq M.predicted among blacks MDRD (S/P/Bld) [Vol rate/Area] mL/min/{1.73_m2} >60 mL/min [facility] Glucose [Mass/Vol] 93 mg/dL 70 - 100 mg/dL [facility] Comment on above: Moderately hemolysed , interpret with caution. Interpretation and review of laboratory results Abnormal [facility] Potassium [Moles/Vol] 4.5 mmol/L 3.5 - 5.1 mmol/L [facility] Comment on above: Moderately hemolysed , interpret with caution. Sodium [Moles/Vol] 135 mmol/L 135 - 145 mmol/L [facility] Urea nitrogen (BldV) [Mass/Vol] 4 mg/dL Low 9 - 20 mg/dL [facility] Test Performed by [facility], [address] [place] [id number] [place] [address] LAB [facility] CBC with Auto Differentialon 08-29-2021 Absolute Baso # 0.0 10*3/uL 0.0 - 0.2 10*3/uL [facility] Absolute Neut # 4.5 10*3/uL 1.8 - 7.0 10*3/uL [facility] Basophils/100 WBC (Bld) 0.6 % 0.0 - 2.0 % [facility] Eosinophils (Bld) [#/Vol] 0.3 10*3/uL 0.0 - 0.5 10*3/uL [facility] Eosinophils/100 WBC (Bld) 3.7 % 1.0 - 6.0 % [facility] Granulocytes/100 WBC (Bld) 60.5 % 40.0 - 80.0 % [facility] Hematocrit (Bld) [Volume fraction] 47.9 % High 35.0 - 47.0 % [facility] Hemoglobin (Bld) [Mass/Vol] 15.7 g/dL 11.7 - 16.0 g/dL [facility] Interpretation and review of laboratory results Abnormal [facility] Lymphocytes (Bld) [#/Vol] 2.0 10*3/uL 1.0 - 4.3 10*3/uL [facility] Lymphocytes/100 WBC (Bld) 27.1 % 20.0 - 40.0 % [facility] MCH (RBC) [Entitic mass] 30.7 pg 26.0 - 34.0 pg [facility] MCHC (RBC) [Mass/Vol] 32.7 % 32.0 - 36.0 % [facility] MCV (RBC) [Entitic vol] 93.9 fL 79.0 - 98.0 fL [facility] Monocytes (Bld) [#/Vol] 0.6 10*3/uL 0.0 - 0.8 10*3/uL [facility] Monocytes/100 WBC (Bld) 8.1 % 2.0 - 10.0 % [facility] Platelet distribution width (Bld) [Ratio] 13.8 % 11.5 - 14.5 % [facility] Platelet mean volume (Bld) [Entitic vol] 11.1 fL 7.4 - 12.4 fL [facility] Comment on above: MPV is a calculated measurement using platelet volume ratio. Platelets (Bld) [#/Vol] 169 10*3/uL 140 - 440 10*3/uL [facility] RBC (Bld) [#/Vol] 5.11 10*6/uL 3.80 - 5.2 0 10*6/uL [facility] WBC (Bld) [#/Vol] 7.4 10*3/uL 3.6 - 10.7 10*3/uL [facility] Test Performed by [facility], [address] [place] [id number] [place], [place] [address]A ED Provider Noteon 2 ED Provider Note Emergency Department Encounter [facility] EMERGENCY DEPT Patient: Mary Claudio : 1985 Date of Evaluation: 08/29/2021 ED Supervising Physician: Kaela Gonzales MD I independently examined and evaluated Mary Claudio. In brief, Mary Claudio is a 36 y.o. female that presents to the emergency department with a past medical history of triple epic seizures presenting with episodes of staring. Patient is responsive and follows commands but seems to stare the RUE and is not speaking. But she is processing verbal commands and responds to them but simply appears though she did not want to speak. We spoke with her wfulub-dm-tkw who she feels very safe with and has been taking care of her lately and she states that she does have generalized tonic-clonic seizures that are often very bad, and she is been intubated for them before. She says every once in a while but rarely, she will have a true staring spell which will generalize into a seizure. Laboratory work-up is overall unremarkable and patient feels safe going home at this time. What we witnessed here in the ER based on descriptions and my physical exam, is not consistent with a complex partial seizure. She is simply staring off into space does not verbally respond but very much responds to verbal commands very easily which is not consistent with seizure activity. Patient be discharged back to the care of her mwryhn-he-kih. All diagnostic, treatment, and disposition decisions were made by myself in conjunction with the Resident. I also supervised jain portions of any procedures performed by the Resident. For all further details of the patient's emergency department visit, please see their documentation. (Please note that portions of this note may have been completed with a voice recognition program. Efforts were made to edit the dictations but occasionally words are mis-transcribed.) Kaela Gonzales MD [employer] Kaela Gonzales MD 08/29/21 2138 [facility] ED Provider Note [facility] EMERGENCY DEPT EMERGENCY DEPARTMENT ENCOUNTER Pt Name: Mary Claudio Birthdate 1985 Date of evaluation: 08/29/2021 Provider: BETZAIDA HERNANDEZ MD CHIEF COMPLAINT Chief Complaint Patient presents with ? Seizures Patient comes from EMS from the [facility] for a sz. Pt is responsive but not speaking. Patient has hx of sz HISTORY OF PRESENT ILLNESS (Location/Symptom, Timing/Onset, Context/Setting, Quality, Duration, Modifying Factors, Severity) Note limiting factors. I wore a surgical mask for the entirety of this encounter. HPI Mary Claudio is a 36 y.o. female who presents to the emergency department for seizure. Patient has a past medical history of epilepsy, hypertension, depression. Patient was at a water park today with her dktyea-up-iac and her jdoflp-pi-ait's boyfriend and the patient had a stare seizure. Patient was staring off with her eyes open for over an hour, per the patient's oboqmx-fq-tbw. They were unable to wake her from this activity. The patient's iqtwtm-wg-cen states her stay her seizures normally only last 10 to 15 minutes. Patient does have a history of tonic-clonic seizures however she did not have any tonic-clonic activity today. Upon arrival to the emergency department, patient was staring off. She was not speaking but she was following commands. Nursing Notes were reviewed. REVIEW OF SYSTEMS (2+ for level 4; 10+ for level 5) Review of Systems Unable to perform ROS: Patient nonverbal PAST MEDICAL HISTORY Past Medical History: Diagnosis Date ? Cognitive deficits ? Depression ? Hypertension ? MRSA (methicillin resistant staph aureus) culture positive 11/16/15 & 11/15/15 trach asp and blood ? Noncompliance ? Obesity ? Primary seizure disorder (HCC) SURGICAL HISTORY Past Surgical History: Procedure Laterality Date ? SECTION x4 ? CHOLECYSTECTOMY ? TUBAL LIGATION CURRENT MEDICATIONS Previous Medications AMLODIPINE (NORVASC) 5 MG TABLET Take 1 tablet by mouth daily FERROUS SULFATE 325 (65 FE) MG TABLET Take 1 tablet by mouth every other day GABAPENTIN (NEURONTIN) 300 MG CAPSULE Take 1 capsule by mouth 2 times daily for 120 days. LEVETIRACETAM (KEPPRA) 1000 MG TABLET Take 1 tablet by mouth 2 times daily MELATONIN 3 MG CAPS Take 3 mg by mouth every evening SENNOSIDES-DOCUSATE SODIUM (SENOKOT-S) 8.6-50 MG TABLET Take 2 tablets by mouth 2 times daily As needed for constipation TOPIRAMATE (TOPAMAX) 100 MG TABLET Take 1 tablet by mouth 2 times daily TRIAMCINOLONE (KENALOG) 0.1 % LOTION Apply topically 3 times daily as needed ALLERGIES Fluconazole and Naproxen FAMILY HISTORY Family History Problem Relation Age of Onset ? Other Mother Leukemia ? Breast Cancer Maternal Grandmother SOCIAL HISTORY Social History Socioeconomic History ? Marital status: Spouse name: None ? Number of children: None ? Years of education: None ? Highest education level: None Occupational History ? None Tobacco Use ? Smoking status: Former Smoker ? Smokeless tobacco: Never Used Vaping Use ? Vaping Use: Never used Substance and Sexual Activity ? Alcohol use: No ? Drug use: Never ? Sexual activity: None Other Topics Concern ? None Social History Narrative ? None Social Determinants of Health Financial Resource Strain: ? Difficulty of Paying Living Expenses: Not on file Food Insecurity: ? Worried About Running Out of Food in the Last Year: Not on file ? Ran Out of Food in the Last Year: Not on file Transportation Needs: ? Lack of Transportation (Medical): Not on file ? Lack of Transportation (Non-Medical): Not on file Physical Activity: ? Days of Exercise per Week: Not on file ? Minutes of Exercise per Session: Not on file Stress: ? Feeling of Stress : Not on file Social Connections: ? Frequency of Communication with Friends and Family: Not on file ? Frequency of Social Gatherings with Friends and Family: Not on file ? Attends Anabaptism Services: Not on file ? Active Member of Clubs or Organizations: Not on file ? Attends Club or Organization Meetings: Not on file ? Marital Status: Not on file Intimate Partner Violence: ? Fear of Current or Ex-Partner: Not on file ? Emotionally Abused: Not on file ? Physically Abused: Not on file ? Sexually Abused: Not on file Housing Stability: ? Unable to Pay for Housing in the Last Year: Not on file ? Number of Places Lived in the Last Year: Not on file ? Unstable Housing in the Last Year: Not on file SCREENINGS PHYSICAL EXAM (up to 7 for level 4, 8 or more for level 5) ED Triage Vitals [08/29/21 1700] BP Temp Temp src Heart Rate Resp SpO2 Height Weight 139/86 98 ?F (36.7 ?C) -- 64 16 98 % 5' 3 (1.6 m) 285 lb (129.3 kg) Physical Exam Constitutional: General: She is not in acute distress. HENT: Head: Normocephalic and atraumatic. Mouth/Throat: Mouth: Mucous membranes are moist. Ey (more content not included)... Normal [facility] Hemogram w/ Autodiffon 08-29 Abs Baso Cnt 0.0 10*3/uL Normal 0.0-0.2 [facility] Comment on above: Performed By: #### B MP3, HEMDF #### [facility] [address] [place] [address] Abs Neutrophile Cnt 4.5 10*3/uL Normal 1.8-7.0 [facility] Comment on above: Performed By: #### B MP3, HEMDF #### [facility] [address] [place] [address] Basophils/100 WBC (Bld) 0.6 % Normal 0.0-2.0 [facility] Comment on above: Performed By: #### B MP3, HEMDF #### [facility] [address] [place] [address] Eosinophils (Bld) [#/Vol] 0.3 10*3/uL Normal 0.0-0.5 [facility] Comment on above: Performed By: #### B MP3, HEMDF #### [facility] [address] [place] [address] Eosinophils/100 WBC (Bld) 3.7 % Normal 1.0-6.0 [facility] Comment on above: Performed By: #### B MP3, HEMDF #### [facility] [address] [place] [address] Erythrocyte distribution width (RBC) [Ratio] 13.8 % Normal 11.5-14.5 [facility] Comment on above: Performed By: #### B MP3, HEMDF #### [facility] [address] [place] [address] Granulocytes/100 WBC (Bld) 60.5 % Normal 40.0-80.0 [facility] Comment on above: Performed By: #### B MP3, HEMDF #### [facility] [address] [place] [address] Hematocrit (Bld) [Volume fraction] 47.9 % High 35.0-47.0 [facility] Comment on above: Performed By: #### B MP3, HEMDF #### [facility] [address], [place] Hemoglobin (Bld) [Mass/Vol] 15.7 g/dL Normal 11.7-16.0 [facility] Comment on above: Performed By: #### B MP3, HEMDF #### [facility] [address], [place] Lymphocytes (Bld) [#/Vol] 2.0 10*3/uL Normal 1.0-4.3 [facility] Comment on above: Performed By: #### B MP3, HEMDF #### [place] [address], [place] Lymphocytes/100 WBC (Bld) 27.1 % Normal 20.0-40.0 [facility] Comment on above: Performed By: #### B MP3, HEMDF #### [place] [address] [address], [place] MCH (RBC) [Entitic mass] 30.7 pg Normal 26.0-34.0 [facility] Comment on above: Performed By: #### B MP3, HEMDF #### [place] [address] [address], [place] MCHC 32.7 % Normal 32.0-36.0 [facility] Comment on above: Performed By: #### B MP3, HEMDF #### [facility] [address], [place] MCV (RBC) [Entitic vol] 93.9 fL Normal 79.0-98.0 [facility] Comment on above: Performed By: #### B MP3, HEMDF #### [place] [address] [address], [place] Monocytes (Bld) [#/Vol] 0.6 10*3/uL Normal 0.0-0.8 [facility] Comment on above: Performed By: #### B MP3, HEMDF #### [place] [address] [address], [place] Monocytes/100 WBC (Bld) 8.1 % Normal 2.0-10.0 [facility] Comment on above: Performed By: #### B MP3, HEMDF #### [place] [address] [address], [place] Platelet mean volume (Bld) [Entitic vol] 11.1 fL Normal 7.4-12.4 [facility] Comment on above: Result Comment: MPV is a calculated measurement using platelet volume ratio. Performed By: #### B MP3, HEMDF #### [facility] [address], [place] Platelets (Bld) [#/Vol] 169 10*3/uL Normal 140-440 [facility] Comment on above: Performed By: #### B MP3, HEMDF #### [place] [address] [address], [place] RBC (Bld) [#/Vol] 5.11 10*6/uL Normal 3.80-5.20 [facility] Comment on above: Performed By: #### B MP3, HEMDF #### [place] [address] [address], [place] WBC (Bld) [#/Vol] 7.4 10*3/uL Normal 3.6-10.7 [facility] Comment on above: Performed By: #### B MP3, HEMDF #### [place] [address] [address], [place] No Panel Informationon 08-08 Levetiracetam (Keppra) Level 31.3 ug/mL 10.0-40.0 [facility] Work Phone: Comment on above: Performed at: - [place] [facility] [address] [id number] Director: Aury Garcia MD, Phone: [phone] Phenobarbital Level 32.6 ug/mL 10.0-40.0 [facility] Work Phone: Basic Metabolic Panel w/ Ref mavis to MGon 04-30-2019 Anion gap [Moles/Vol] 11 mmol/L [facility], [place] Calcium [Mass/Vol] 8.8 mg/dL 8.4 - 10. 4 mg/dL [place], [place] Chloride [Moles/Vol] 107 mmol/L 98 - 10 7 mmol/L [place] CO2 [Moles/Vol] 18 mmol/L Low 22 - 30 mmol/L [place] Creatinine [Mass/Vol] 0.74 mg/dL 0.52 - 1.25 mg/dL [place] EGFR IF NonAfrican Peruvian >60.0 >60 mL/min [place] Comment on above: Source- MDRD equatio n with creatinine calibration to IDMS(NKDEP) eGFR not recommended for drug dose adjustment GFR/1.73 sq M predicted among blacks MDRD (S/P/Bld) [Vol rate/Area] mL/min/{1.73_m2} >60 mL/min [place] Glucose [Mass/Vol] 92 mg/dL 70 - 100 mg/dL [place] Potassium [Moles/Vol] 3.7 mmol/L 3.5 - 5.1 mmol/L [place] Sodium [Moles/Vol] 136 mmol/L 135 - 145 mmol/L [place] Urea nitrogen [Mass/Vol] 10 mg/dL 7 - 20 mg/dL [place] CBC auto differentialon 03-0 Absolute Baso # 0.1 10*3/uL 0 - 0.2 10*3/uL [place] Absolute Neut # 3.1 10*3/uL 1.8 - 7 10*3/uL [place] Basophils/100 WBC (Bld) 1.0 % 0 - 2 % [place] Eosinophils (Bld) [#/Vol] 0.3 10*3/uL 0 - 0.5 10*3/uL [place] Eosinophils/100 WBC (Bld) 4.9 % 1 - 6 % [place] Erythrocyte distribution width (RBC) [Ratio] 18.7 % High 11.5 - 14.5 % [place] Granulocytes/100 WBC (Bld) 52.6 % 40 - 80 % [place] Hematocrit (Bld) [Volume fraction] 35.5 % 35 - 47 % [place] Hemoglobin (Bld) [Mass/Vol] 11.3 g/dL Low 11.7 - 16 g/dL [place] Interpretation and review of laboratory results Abnormal [place] Lymphocytes (Bld) [#/Vol] 1.9 10*3/uL 1 - 4.3 10*3/uL [place] Lymphocytes/100 WBC (Bld) 31.6 % 20 - 40 % [place] MCH (RBC) [Entitic mass] 25.1 pg Low 26 - 34 pg [place] MCHC (RBC) [Mass/Vol] 31.9 % Low 32 - 36 % [place] MCV (RBC) [Entitic vol] 78.6 fL Low 79 - 98 fL [place] Monocytes (Bld) [#/Vol] 0.6 10*3/uL 0 - 0.8 10*3/uL [place] Monocytes/100 WBC (Bld) 9.9 % 2 - 10 % [place] Platelet mean volume (Bld) [Entitic vol] 9.9 fL 7.4 - 10.4 fL [place] Platelets (Bld) [#/Vol] 244 10*3/uL 140 - 440 10*3/uL [place] RBC (Bld) [#/Vol] 4.51 10*6/uL 3.8 - 5.2 10*6/uL [place] WBC (Bld) [#/Vol] 5.9 10*3/uL 3.6 - 10.7 10*3/uL [place] Test Performed by [address] [address] [place] Magnesiumon 04-30-2019 Magnesium [Mass/Vol] 1.9 mg/dL 1.6 - 2 .3 mg/dL [place] Otheron 04-30-2019 Interpretation and review of laboratory results Abnormal [place] Test Performed by [address] [place] [address] [place] Phosphoruson 04-30-2019 Phosphate [Mass/Vol] 4.6 mg/dL High 2.5 - 4 .5 mg/dL [place] Basic Metabolic Panel w/ Ref mavis to MGon 04-29-2019 Anion gap [Moles/Vol] 7 mmol/L [place] Calcium [Mass/Vol] 8.5 mg/dL 8.4 - 10. 4 mg/dL [place] Chloride [Moles/Vol] 109 mmol/L High 98 - 10 7 mmol/L [place] CO2 [Moles/Vol] 21 mmol/L Low 22 - 30 mmol/L [place] Creatinine [Mass/Vol] 0.75 mg/dL 0.52 - 1.25 mg/dL [place] EGFR IF NonAfrican [place]uvian >60.0 >60 mL/min [place] Comment on above: Source- MDRD equatio n with creatinine calibration to IDMS(NKDEP) eGFR not recommended for drug dose adjustment GFR/1.73 sq M predicted among blacks MDRD (S/P/Bld) [Vol rate/Area] mL/min/{1.73_m2} >60 mL/min [place] Glucose [Mass/Vol] 94 mg/dL 70 - 100 mg/dL [place] Interpretation and review of laboratory results Abnormal [place] Potassium [Moles/Vol] 4.1 mmol/L 3.5 - 5.1 mmol/L [place] Sodium [Moles/Vol] 137 mmol/L 135 - 145 mmol/L [place] Urea nitrogen [Mass/Vol] 11 mg/dL 7 - 20 mg/dL [place] CBC auto differentialon Absolute Baso # 0.1 10*3/uL 0 - 0.2 10*3/uL [place] Absolute Neut # 2.9 10*3/uL 1.8 - 7 10*3/uL [place] Basophils/100 WBC (Bld) 1.2 % 0 - 2 % [place] Eosinophils (Bld) [#/Vol] 0.3 10*3/uL 0 - 0.5 10*3/uL [place] Eosinophils/100 WBC (Bld) 5.6 % 1 - 6 % [place] Erythrocyte distribution width (RBC) [Ratio] 18.9 % High 11.5 - 14.5 % [place] Granulocytes/100 WBC (Bld) 55.2 % 40 - 80 % [place] Hematocrit (Bld) [Volume fraction] 34.5 % Low 35 - 47 % [place] Hemoglobin (Bld) [Mass/Vol] 10.9 g/dL Low 11.7 - 16 g/dL [place] Interpretation and review of laboratory results Abnormal [place] Lymphocytes (Bld) [#/Vol] 1.6 10*3/uL 1 - 4.3 10*3/uL [place] Lymphocytes/100 WBC (Bld) 29.5 % 20 - 40 % [place] MCH (RBC) [Entitic mass] 24.9 pg Low 26 - 34 pg [place] MCHC (RBC) [Mass/Vol] 31.5 % Low 32 - 36 % [place] MCV (RBC) [Entitic vol] 79.0 fL 79 - 98 fL [place] Monocytes (Bld) [#/Vol] 0.5 10*3/uL 0 - 0.8 10*3/uL [place] Monocytes/100 WBC (Bld) 8.5 % 2 - 10 % [place] Platelet mean volume (Bld) [Entitic vol] 9.9 fL 7.4 - 10.4 fL [place] Platelets (Bld) [#/Vol] 227 10*3/uL 140 - 440 10*3/uL [place] RBC (Bld) [#/Vol] 4.37 10*6/uL 3.8 - 5.2 10*6/uL [place] WBC (Bld) [#/Vol] 5.3 10*3/uL 3.6 - 10.7 10*3/uL [facility], [place] Test Performed by [facility], [address] [place] [address], [place] [address] [place], [place] EEG REPORTon 04-29-2019 Rosamaria Powell MD - 04/29/2019 5:15 PM EST PATIENT: MARY CLAUDIO DATE OF SERVICE: 04/29/2019 ORDER NUMBER: DATE OF : 1985 AGE: 33 ADMITTING PHYSICIAN: Ashley Farr MD ATTENDING PHYSICIAN: Haroon Jones MD DICTATING PHYSICIAN: Rosamaria Powell MD EEG REFERRING PHYSICIAN: Not dictated. TEST #: Test - Routine Inpatient 20-Minute EEG: Room #: Indication: This EEG is being requested to diagnose seizures. Findings: Posterior dominant rhythm was absent. Background was described under EEG diagnosis. Sleep was absent. Drowsiness was absent. Photic stimulation was performed with no clear driving response observed. Hyperventilation was deferred. Diagnoses: 1. Continuous breach rhythm in the right centroparietal region suggestive of a skull defect. 2. Continuous low-voltage irregular delta activity and absence of fast frequencies over the left hemisphere. 3. Continuous generalized irregular delta activity. 4. Absent posterior dominant rhythm. Impression: This abnormal EEG is consistent with focal cerebral dysfunction in the right central parietal region as well as possible evidence for left hemispheric dysfunction. There was also evidence of a skull defect over the right centroparietal region. The background is consistent with severe generalized nonspecific cerebral dysfunction. No clear seizures or epileptiform activity were seen. [employer] Job ID: [id number] DOD:04/29/2019 03:55 P RZ/dsk DOT:04/29/2019 05:15 P Job Number: [id number] Document Number: [id number] ###### cc: Ashley Farr MD [facility] [address] [facility] [address] Haroon Jones MD [address] [facility] [address] [place] Folateon 04-29-2019 Folate 4.5 ng/mL 2.8 - 20 ng/mL [place] Magnesiumon 04-29-2019 Magnesium [Mass/Vol] 1.9 mg/dL 1.6 - 2 .3 mg/dL [place] Otheron 04-29-2019 Test Performed by [facility], [address] [place] [id number] [place] Test Performed by [facility], [address] [place] [address] [place] Phenobarbital Levelon 2019 Phenobarbital [Mass/Vol] 17.1 ug/mL 15 - 40 ug/mL [place] Test Performed by [facility], [place] [address] [place] Phosphoruson 04-29-2019 Phosphate [Mass/Vol] 3.9 mg/dL 2.5 - 4 .5 mg/dL [place] Vitamin B12on 04-29-2019 Cobalamin (Vitamin B12) [Mass/Vol] 334 pg/mL 239 - 931 pg/mL [place] Basic Metabolic Panel w/ Ref mavis to MGon 04-28-2019 Anion gap [Moles/Vol] 9 mmol/L [place] Calcium [Mass/Vol] 8.7 mg/dL 8.4 - 10. 4 mg/dL [place] Chloride [Moles/Vol] 110 mmol/L High 98 - 10 7 mmol/L [place] CO2 [Moles/Vol] 18 mmol/L Low 22 - 30 mmol/L [place] Creatinine [Mass/Vol] 0.73 mg/dL 0.52 - 1.25 mg/dL [place] EGFR IF NonAfrican [place]uvian >60.0 >60 mL/min [place] Comment on above: Source- MDRD equatio n with creatinine calibration to IDMS(NKDEP) eGFR not recommended for drug dose adjustment GFR/1.73 sq M predicted among blacks MDRD (S/P/Bld) [Vol rate/Area] mL/min/{1.73_m2} >60 mL/min [place] Glucose [Mass/Vol] 88 mg/dL 70 - 100 mg/dL [place] Interpretation and review of laboratory results Abnormal [place] Potassium [Moles/Vol] 3.7 mmol/L 3.5 - 5.1 mmol/L [place] Sodium [Moles/Vol] 137 mmol/L 135 - 145 mmol/L [place] Urea nitrogen [Mass/Vol] 10 mg/dL 7 - 20 mg/dL [place] CBC auto differentialon Absolute Baso # 0.0 10*3/uL 0 - 0.2 10*3/uL [place] Absolute Neut # 2.2 10*3/uL 1.8 - 7 10*3/uL [place] Basophils/100 WBC (Bld) 1.0 % 0 - 2 % [place] Eosinophils (Bld) [#/Vol] 0.3 10*3/uL 0 - 0.5 10*3/uL [place] Eosinophils/100 WBC (Bld) 7.0 % High 1 - 6 % [place] Erythrocyte distribution width (RBC) [Ratio] 19.3 % High 11.5 - 14.5 % [place] Granulocytes/100 WBC (Bld) 45.4 % 40 - 80 % [place] Hematocrit (Bld) [Volume fraction] 34.3 % Low 35 - 47 % [place] Hemoglobin (Bld) [Mass/Vol] 11.0 g/dL Low 11.7 - 16 g/dL [place] Interpretation and review of laboratory results Abnormal [place] Lymphocytes (Bld) [#/Vol] 1.8 10*3/uL 1 - 4.3 10*3/uL [place] Lymphocytes/100 WBC (Bld) 37.3 % 20 - 40 % [place] MCH (RBC) [Entitic mass] 25.4 pg Low 26 - 34 pg [place] MCHC (RBC) [Mass/Vol] 32.1 % 32 - 36 % [place] MCV (RBC) [Entitic vol] 79.2 fL 79 - 98 fL [place] Monocytes (Bld) [#/Vol] 0.5 10*3/uL 0 - 0.8 10*3/uL [place] Monocytes/100 WBC (Bld) 9.3 % 2 - 10 % [place] Platelet mean volume (Bld) [Entitic vol] 9.4 fL 7.4 - 10.4 fL [place] Platelets (Bld) [#/Vol] 233 10*3/uL 140 - 440 10*3/uL [place] RBC (Bld) [#/Vol] 4.33 10*6/uL 3.8 - 5.2 10*6/uL [place] WBC (Bld) [#/Vol] 4.8 10*3/uL 3.6 - 10.7 10*3/uL [place] Test Performed by [facility], [address] [place] [id number] [place] [address] Ferritinon 04-28-2019 Ferritin [Mass/Vol] 6 ng/mL Low 8 - 252 ng/mL [place] Interpretation and review of laboratory results Abnormal [place] Test Performed by [facility], [address] [place] [id number] [place] [address] Hepatic Function Panelon Albumin [Mass/Vol] 3.6 g/dL 3.5 - 5 g/dL [place] ALP [Catalytic activity/Vol] 98 U/L 38 - 126 U/L [place] ALT [Catalytic activity/Vol] 34 U/L 13 - 69 U/L [place] AST [Catalytic activity/Vol] 26 U/L 15 - 46 U/L [place] Bilirubin Ql (U) 0.2 mg/dL 0.2 - 1.3 mg/dL [place] Bilirubin.direct [Mass/Vol] 0.0 mg/dL 0 - 0.3 mg/dL [place] Protein [Mass/Vol] 6.9 g/dL 6.3 - 8.2 g/dL [place] Test Performed by [facility], [facility] [place], [place] [id number] [place] [address] Iron and TIBCon 03-01-2020 Interpretation and review of laboratory results Abnormal [place] Iron [Mass/Vol] 26 ug/dL Low 37 - 170 ug/dL [place] Sat 9 % Low 15 - 50 % [place] TIBC 288 ug/dL 261 - 497 ug/dL [place] Test Performed by [facility], [address] [place] [id number] [place] [address] Magnesiumon 04-28-2019 Magnesium [Mass/Vol] 2.0 mg/dL 1.6 - 2 .3 mg/dL [place] Otheron 04-28-2019 Test Performed by [facility], [facility] [place], [place] [id number] [place] [address] Phenobarbital Levelon 2019 Phenobarbital [Mass/Vol] 16.7 ug/mL 15 - 40 ug/mL [place] Test Performed by [facility], [address] [place] [address] [place] Phosphoruson 04-28-2019 Phosphate [Mass/Vol] 4.2 mg/dL 2.5 - 4 .5 mg/dL [place] Basic Metabolic Panel w/ Ref mavis to MGon 04-27-2019 Anion gap [Moles/Vol] 8 mmol/L [place] Calcium [Mass/Vol] 8.6 mg/dL 8.4 - 10. 4 mg/dL [place] Chloride [Moles/Vol] 108 mmol/L High 98 - 10 7 mmol/L [place] CO2 [Moles/Vol] 22 mmol/L 22 - 30 mmol/L [place] Creatinine [Mass/Vol] 0.8 mg/dL 0.52 - 1.25 mg/dL [place] EGFR IF NonAfrican [place]uvian >60.0 >60 mL/min [place] Comment on above: Source- MDRD equatio n with creatinine calibration to IDMS(NKDEP) eGFR not recommended for drug dose adjustment GFR/1.73 sq M predicted among blacks MDRD (S/P/Bld) [Vol rate/Area] mL/min/{1.73_m2} >60 mL/min [place] Glucose [Mass/Vol] 90 mg/dL 70 - 100 mg/dL [place] Potassium [Moles/Vol] 3.7 mmol/L 3.5 - 5.1 mmol/L [place] Sodium [Moles/Vol] 137 mmol/L 135 - 145 mmol/L [place] Urea nitrogen [Mass/Vol] 10 mg/dL 7 - 20 mg/dL [place] CBC auto differentialon 03-31 Basophils/100 WBC (Bld) 0.9 % 0 - 2 % [place] Eosinophils/100 WBC (Bld) 4.9 % 1 - 6 % [place] Erythrocyte distribution width (RBC) [Ratio] 19.2 % High 11.5 - 14.5 % [place] Granulocytes/100 WBC (Bld) 57.4 % 40 - 80 % [place] Hematocrit (Bld) [Volume fraction] 35.5 % 35 - 47 % [place] Hemoglobin (Bld) [Mass/Vol] 11.4 g/dL Low 11.7 - 16 g/dL [place] Interpretation and review of laboratory results Abnormal [place] Lymphocytes (Bld) [#/Vol] 1.6 10*3/uL 1 - 4.3 10*3/uL [place] Lymphocytes/100 WBC (Bld) 27.9 % 20 - 40 % [place] MCH (RBC) [Entitic mass] 25.3 pg Low 26 - 34 pg [place] MCV (RBC) [Entitic vol] 78.9 fL Low 79 - 98 fL [place] Monocytes/100 WBC (Bld) 8.9 % 2 - 10 % [place] Platelet mean volume (Bld) [Entitic vol] 9.9 fL 7.4 - 10.4 fL [place] Platelets (Bld) [#/Vol] 256 10*3/uL 140 - 440 10*3/uL [place] RBC (Bld) [#/Vol] 4.50 10*6/uL 3.8 - 5.2 10*6/uL [place] WBC (Bld) [#/Vol] 5.8 10*3/uL 3.6 - 10.7 10*3/uL [place] Test Performed by [facility], [address] [place] [address] [place] Hematologyon 04-27-2019 Eosinophils (Bld) [#/Vol] 0.3 10*3/uL 0 - 0.5 10*3/uL [place] Monocytes (Bld) [#/Vol] 0.5 10*3/uL 0 - 0.8 10*3/uL [place] Magnesiumon 04-27-2019 Magnesium [Mass/Vol] 1.8 mg/dL 1.6 - 2 .3 mg/dL [place] Otheron 04-27-2019 Blood Culture, Routine No growth at 5 days. [place] Test Performed by [facility], [address] [place] [id number] Specimen Source Comment:Blood [place] Interpretation and review of laboratory results Abnormal [place] Test Performed by [facility], [address] [place] [phone] [place] [address] Absolute Baso # 0.1 10*3/uL 0 - 0.2 10*3/uL [place] Absolute Neut # 3.3 10*3/uL 1.8 - 7 10*3/uL [place] MCHC (RBC) [Mass/Vol] 32.0 % 32 - 36 % [place] Phenobarbital Levelon 2019 Phenobarbital [Mass/Vol] 12.7 ug/mL Low 15 - 40 ug/mL [place] Phosphoruson 04-27-2019 Phosphate [Mass/Vol] 4.3 mg/dL 2.5 - 4 .5 mg/dL [place] Basic Metabolic Panel w/ Ref mavis to MGon 04-26-2019 Anion gap [Moles/Vol] 8 mmol/L [place] Calcium [Mass/Vol] 9.0 mg/dL 8.4 - 10. 4 mg/dL [place] Chloride [Moles/Vol] 109 mmol/L High 98 - 10 7 mmol/L [place] CO2 [Moles/Vol] 22 mmol/L 22 - 30 mmol/L [place] Creatinine [Mass/Vol] 0.72 mg/dL 0.52 - 1.25 mg/dL [place] EGFR IF NonAfrican [place]uvian >60.0 >60 mL/min [place] Comment on above: Source- MDRD equatio n with creatinine calibration to IDMS(NKDEP) eGFR not recommended for drug dose adjustment GFR/1.73 sq M predicted among blacks MDRD (S/P/Bld) [Vol rate/Area] mL/min/{1.73_m2} >60 mL/min [place] Glucose [Mass/Vol] 81 mg/dL 70 - 100 mg/dL [place] Potassium [Moles/Vol] 3.8 mmol/L 3.5 - 5.1 mmol/L [place] Sodium [Moles/Vol] 139 mmol/L 135 - 145 mmol/L [place] Urea nitrogen [Mass/Vol] 6 mg/dL Low 7 - 20 mg/dL [place] CBC auto differentialon 03-31-2019 Basophils/100 WBC (Bld) 1.0 % 0 - 2 % [place] Eosinophils/100 WBC (Bld) 5.7 % 1 - 6 % [place] Erythrocyte distribution width (RBC) [Ratio] 18.6 % High 11.5 - 14.5 % [place] Granulocytes/100 WBC (Bld) 60.2 % 40 - 80 % [place] Hematocrit (Bld) [Volume fraction] 36.5 % 35 - 47 % [place] Hemoglobin (Bld) [Mass/Vol] 11.7 g/dL 11.7 - 16 g/dL [place] Lymphocytes (Bld) [#/Vol] 1.3 10*3/uL 1 - 4.3 10*3/uL [place] Lymphocytes/100 WBC (Bld) 24.3 % 20 - 40 % [place] MCH (RBC) [Entitic mass] 25.1 pg Low 26 - 34 pg [place] MCV (RBC) [Entitic vol] 78.4 fL Low 79 - 98 fL [place] Monocytes/100 WBC (Bld) 8.8 % 2 - 10 % [place] Platelet mean volume (Bld) [Entitic vol] 9.7 fL 7.4 - 10.4 fL [place] Platelets (Bld) [#/Vol] 245 10*3/uL 140 - 440 10*3/uL [place] RBC (Bld) [#/Vol] 4.66 10*6/uL 3.8 - 5.2 10*6/uL [place] WBC (Bld) [#/Vol] 5.5 10*3/uL 3.6 - 10.7 10*3/uL [place] EEG REPORTon 04-26-2019 Rosamaria Powell MD - 04/26/2019 3:12 PM EST PATIENT: MARY CLAUDIO DATE OF SERVICE: 04/26/2019 ORDER NUMBER: DATE OF : 1985 AGE: 33 ADMITTING PHYSICIAN: Ashley Farr MD ATTENDING PHYSICIAN: Haroon Jones MD DICTATING PHYSICIAN: Rosamaria Powell MD EEG REFERRING PHYSICIAN: Sharron Hill C.N.P[place]incito TEST #: Test - Continuous Video EEG for 24 Hours: Dates: 04/25/2019 to 04/26/2019. Room #: 333. Indication: This EEG is being requested to diagnose seizures. Findings: Posterior dominant rhythm was present at 10 Hz, medium voltage reactive to eye opening and eye closure symmetric over the occipital regions. The background is described under EEG diagnosis. Sleep was present. Drowsiness was present. Photic stimulation and hyperventilation were deferred. Diagnoses: 1. Rare sharp waves in the right anterior to mid temporal region. 2. Frequent irregular delta activity in the right anterior to mid temporal region. 3. Occasional right temporal intermittent rhythmic delta activity or TIRDA. Impression: This abnormal EEG is consistent with potential epileptogenicity in the right anterior to mid temporal region occurring in the context of a focal cerebral dysfunction in the same region. No clear seizures were recorded. Please note that the majority of this test was affected by artifact. Maia Job ID: [id number] DOD:04/26/2019 12:33 P RZ/dsk DOT:04/26/2019 03:12 P Job Number: [id number] Document Number: [id number] ###### cc: Ashley Farr MD [facility] [address] [facility] [address] [facility] [address] Haroon Jones MD [facility] [address] [facility] [address] [place] Magnesiumon 04-26-2019 Magnesium [Mass/Vol] 1.9 mg/dL 1.6 - 2 .3 mg/dL [place] Otheron 04-26-2019 Interpretation and review of laboratory results Abnormal [place] Test Performed by [address] [address] [place] Phenobarbital Levelon 2019 Interpretation and review of laboratory results Abnormal [place] Phenobarbital [Mass/Vol] 9.9 ug/mL Low 15 - 40 ug/mL [place] Test Performed by [address] [address] [place] Phosphoruson 04-26-2019 Phosphate [Mass/Vol] 3.7 mg/dL 2.5 - 4 .5 mg/dL [place] Basic Metabolic Panel w/ Ref mavis to MGon 04-25-2019 Anion gap [Moles/Vol] 7 mmol/L [place] Calcium [Mass/Vol] 8.8 mg/dL 8.4 - 10. 4 mg/dL [place] Chloride [Moles/Vol] 108 mmol/L High 98 - 10 7 mmol/L [place] CO2 [Moles/Vol] 22 mmol/L 22 - 30 mmol/L [place] Creatinine [Mass/Vol] 0.72 mg/dL 0.52 - 1.25 mg/dL [place] EGFR IF NonAfrican [place]uvian >60.0 >60 mL/min [place] Comment on above: Source- MDRD equatio n with creatinine calibration to IDMS(NKDEP) eGFR not recommended for drug dose adjustment GFR/1.73 sq M predicted among blacks MDRD (S/P/Bld) [Vol rate/Area] mL/min/{1.73_m2} >60 mL/min [place] Glucose [Mass/Vol] 83 mg/dL 70 - 100 mg/dL [place] Interpretation and review of laboratory results Abnormal [place] Potassium [Moles/Vol] 3.6 mmol/L 3.5 - 5.1 mmol/L [place] Sodium [Moles/Vol] 137 mmol/L 135 - 145 mmol/L [place] Urea nitrogen [Mass/Vol] 7 mg/dL 7 - 20 mg/dL [place] CBC auto differentialon 03-31 Absolute Baso # 0.1 10*3/uL 0 - 0.2 10*3/uL [place] Absolute Neut # 4.9 10*3/uL 1.8 - 7 10*3/uL [place] Basophils/100 WBC (Bld) 0.8 % 0 - 2 % [place] Eosinophils (Bld) [#/Vol] 0.4 10*3/uL 0 - 0.5 10*3/uL [place] Eosinophils/100 WBC (Bld) 5.2 % 1 - 6 % [place] Erythrocyte distribution width (RBC) [Ratio] 18.9 % High 11.5 - 14.5 % [place] Granulocytes/100 WBC (Bld) 67.4 % 40 - 80 % [place] Hematocrit (Bld) [Volume fraction] 35.5 % 35 - 47 % [place] Hemoglobin (Bld) [Mass/Vol] 11.5 g/dL Low 11.7 - 16 g/dL [place] Interpretation and review of laboratory results Abnormal [place] Lymphocytes (Bld) [#/Vol] 1.4 10*3/uL 1 - 4.3 10*3/uL [place] Lymphocytes/100 WBC (Bld) 18.6 % Low 20 - 40 % [place] MCH (RBC) [Entitic mass] 25.6 pg Low 26 - 34 pg [place] MCHC (RBC) [Mass/Vol] 32.3 % 32 - 36 % [place] MCV (RBC) [Entitic vol] 79.1 fL 79 - 98 fL [place] Monocytes (Bld) [#/Vol] 0.6 10*3/uL 0 - 0.8 10*3/uL [place] Monocytes/100 WBC (Bld) 8.0 % 2 - 10 % [place] Platelet mean volume (Bld) [Entitic vol] 9.2 fL 7.4 - 10.4 fL [place] Platelets (Bld) [#/Vol] 236 10*3/uL 140 - 440 10*3/uL [place] RBC (Bld) [#/Vol] 4.49 10*6/uL 3.8 - 5.2 10*6/uL [place] WBC (Bld) [#/Vol] 7.3 10*3/uL 3.6 - 10.7 10*3/uL [place] Test Performed by [facility], [address] [place] [address] [place] CK ISOENZYMESon 04-25-2019 Ck Isoenzymes see below SKBL NA [place] Comment on above: [employer] [place] CK-BB None Detected Critically abnormal None Detected % [place] CK-MM 100 % 95 - 100 % [place] CK.MB [Mass/Vol] 0 % <5 [place] Interpretation and review of laboratory results Abnormal [place] Total CK 125 U/L 44 - 196 U/L [place], [place] 1 [place] Magnesiumon 04-25-2019 Magnesium [Mass/Vol] 1.8 mg/dL 1.6 - 2 .3 mg/dL [place] Otheron 04-25-2019 Interpretation and review of laboratory results Abnormal [place] Test Performed by [facility], [place] [address] [place] Test Performed by [facility], [place] [address] [place] Phenobarbital Levelon 2019 Phenobarbital [Mass/Vol] 5.1 ug/mL Low 15 - 40 ug/mL [place] Phenytoin Level, Totalon Interpretation and review of laboratory results Abnormal [place] Phenytoin Lvl 5.3 ug/mL Low 10 - 20 ug/mL [place] Test Performed by [facility], [place] [address] [place] Phosphoruson 04-25-2019 Phosphate [Mass/Vol] 4.2 mg/dL 2.5 - 4 .5 mg/dL [place] Valproic Acid Level, Totalon 04-25-2019 Valproic Acid Lvl <10 Low 50 - 120 ug/mL [place] Basic Metabolic Panel w/ Ref mavis to MGon 04-24-2019 Anion gap [Moles/Vol] 8 mmol/L [place] Calcium [Mass/Vol] 8.9 mg/dL 8.4 - 10. 4 mg/dL [place] Chloride [Moles/Vol] 106 mmol/L 98 - 10 7 mmol/L [place] CO2 [Moles/Vol] 23 mmol/L 22 - 30 mmol/L [place] Creatinine [Mass/Vol] 0.7 mg/dL 0.52 - 1.25 mg/dL [place] EGFR IF NonAfrican [place]uvian >60.0 >60 mL/min [place] Comment on above: Source- MDRD equatio n with creatinine calibration to IDMS(NKDEP) eGFR not recommended for drug dose adjustment GFR/1.73 sq M predicted among blacks MDRD (S/P/Bld) [Vol rate/Area] mL/min/{1.73_m2} >60 mL/min [place] Glucose [Mass/Vol] 82 mg/dL 70 - 100 mg/dL [place] Potassium [Moles/Vol] 3.5 mmol/L 3.5 - 5.1 mmol/L [place] Sodium [Moles/Vol] 136 mmol/L 135 - 145 mmol/L [place] Urea nitrogen [Mass/Vol] 6 mg/dL Low 7 - 20 mg/dL [place] CBC auto differentialon 03-31 Absolute Baso # 0.0 10*3/uL 0 - 0.2 10*3/uL [place] Absolute Neut # 4.1 10*3/uL 1.8 - 7 10*3/uL [place] Basophils/100 WBC (Bld) 0.6 % 0 - 2 % [place] Eosinophils (Bld) [#/Vol] 0.4 10*3/uL 0 - 0.5 10*3/uL [place] Eosinophils/100 WBC (Bld) 5.6 % 1 - 6 % [place] Erythrocyte distribution width (RBC) [Ratio] 18.7 % High 11.5 - 14.5 % [place] Granulocytes/100 WBC (Bld) 59.5 % 40 - 80 % [place] Hematocrit (Bld) [Volume fraction] 34.1 % Low 35 - 47 % [place] Hemoglobin (Bld) [Mass/Vol] 11.2 g/dL Low 11.7 - 16 g/dL [place] Interpretation and review of laboratory results Abnormal [place] Lymphocytes (Bld) [#/Vol] 1.8 10*3/uL 1 - 4.3 10*3/uL [place] Lymphocytes/100 WBC (Bld) 25.9 % 20 - 40 % [place] MCH (RBC) [Entitic mass] 25.9 pg Low 26 - 34 pg [place] MCHC (RBC) [Mass/Vol] 32.7 % 32 - 36 % [place] MCV (RBC) [Entitic vol] 79.1 fL 79 - 98 fL [place] Monocytes (Bld) [#/Vol] 0.6 10*3/uL 0 - 0.8 10*3/uL [place] Monocytes/100 WBC (Bld) 8.4 % 2 - 10 % [place] Platelet mean volume (Bld) [Entitic vol] 9.1 fL 7.4 - 10.4 fL [place] Platelets (Bld) [#/Vol] 229 10*3/uL 140 - 440 10*3/uL [place] RBC (Bld) [#/Vol] 4.31 10*6/uL 3.8 - 5.2 10*6/uL [place] WBC (Bld) [#/Vol] 6.9 10*3/uL 3.6 - 10.7 10*3/uL [place] Test Performed by [facility], [address] [place] [id number] [place] [address] Magnesiumon 04-24-2019 Magnesium [Mass/Vol] 1.8 mg/dL 1.6 - 2 .3 mg/dL [place] Otheron 04-24-2019 Interpretation and review of laboratory results Abnormal [place] Test Performed by [facility], [address] [place] [id number] [place] [address] Phenobarbital Levelon 2019 Interpretation and review of laboratory results Abnormal [place] Phenobarbital [Mass/Vol] ug/mL Low 15 - 40 ug/mL [place] Test Performed by [facility], [address] [place] [id number] [place] [address] Phenytoin Level, Totalon Phenytoin Lvl 7.6 ug/mL Low 10 - 20 ug/mL [place] Phosphoruson 04-24-2019 Phosphate [Mass/Vol] 3.2 mg/dL 2.5 - 4 .5 mg/dL [place] Basic Metabolic Panel w/ Ref mavis to MGon 04-23-2019 Anion gap [Moles/Vol] 6 mmol/L [place] Calcium [Mass/Vol] 8.8 mg/dL 8.4 - 10. 4 mg/dL [place] Chloride [Moles/Vol] 108 mmol/L High 98 - 10 7 mmol/L [place] CO2 [Moles/Vol] 24 mmol/L 22 - 30 mmol/L [place] Creatinine [Mass/Vol] 0.73 mg/dL 0.52 - 1.25 mg/dL [place] EGFR IF NonAfrican [place]uvian >60.0 >60 mL/min [place] Comment on above: Source- MDRD equatio n with creatinine calibration to IDMS(NKDEP) eGFR not recommended for drug dose adjustment GFR/1.73 sq M predicted among blacks MDRD (S/P/Bld) [Vol rate/Area] mL/min/{1.73_m2} >60 mL/min [place] Glucose [Mass/Vol] 80 mg/dL 70 - 100 mg/dL [place] Interpretation and review of laboratory results Abnormal [place] Potassium [Moles/Vol] 3.8 mmol/L 3.5 - 5.1 mmol/L [place] Sodium [Moles/Vol] 138 mmol/L 135 - 145 mmol/L [place] Urea nitrogen [Mass/Vol] 6 mg/dL Low 7 - 20 mg/dL [place] CBC auto differentialon 03-31 Absolute Baso # 0.0 10*3/uL 0 - 0.2 10*3/uL [place] Absolute Neut # 4.5 10*3/uL 1.8 - 7 10*3/uL [place] Basophils/100 WBC (Bld) 0.6 % 0 - 2 % [place] Eosinophils (Bld) [#/Vol] 0.2 10*3/uL 0 - 0.5 10*3/uL [place] Eosinophils/100 WBC (Bld) 3.3 % 1 - 6 % [place] Erythrocyte distribution width (RBC) [Ratio] 18.6 % High 11.5 - 14.5 % [place] Granulocytes/100 WBC (Bld) 63.8 % 40 - 80 % [place] Hematocrit (Bld) [Volume fraction] 35.3 % 35 - 47 % [place] Hemoglobin (Bld) [Mass/Vol] 11.3 g/dL Low 11.7 - 16 g/dL [place] Interpretation and review of laboratory results Abnormal [place] Lymphocytes (Bld) [#/Vol] 1.5 10*3/uL 1 - 4.3 10*3/uL [place] Lymphocytes/100 WBC (Bld) 21.6 % 20 - 40 % [place] MCH (RBC) [Entitic mass] 25.1 pg Low 26 - 34 pg [place] MCHC (RBC) [Mass/Vol] 32.1 % 32 - 36 % [place] MCV (RBC) [Entitic vol] 78.2 fL Low 79 - 98 fL [place] Monocytes (Bld) [#/Vol] 0.8 10*3/uL 0 - 0.8 10*3/uL [place] Monocytes/100 WBC (Bld) 10.7 % High 2 - 10 % [place] Platelet mean volume (Bld) [Entitic vol] 9.1 fL 7.4 - 10.4 fL [place] Platelets (Bld) [#/Vol] 239 10*3/uL 140 - 440 10*3/uL [place] RBC (Bld) [#/Vol] 4.52 10*6/uL 3.8 - 5.2 10*6/uL [place] WBC (Bld) [#/Vol] 7.1 10*3/uL 3.6 - 10.7 10*3/uL [place] Test Performed by [facility], [address] [place] [address] [place] Magnesiumon 04-23-2019 Magnesium [Mass/Vol] 2.0 mg/dL 1.6 - 2 .3 mg/dL [place] Otheron 04-23-2019 Test Performed by [facility], [address] [place] [address] [place] Phenytoin Level, Totalon Interpretation and review of laboratory results Abnormal [place] Phenytoin Lvl 7.7 ug/mL Low 10 - 20 ug/mL [place] Test Performed by [facility], [address] [place] [address] [place] Phosphoruson 04-23-2019 Phosphate [Mass/Vol] 3.0 mg/dL 2.5 - 4 .5 mg/dL [place] Basic Metabolic Panel w/ Ref mavis to MGon 04-22-2019 Anion gap [Moles/Vol] 7 mmol/L [place] Calcium [Mass/Vol] 8.6 mg/dL 8.4 - 10. 4 mg/dL [place] Chloride [Moles/Vol] 106 mmol/L 98 - 10 7 mmol/L [place] CO2 [Moles/Vol] 24 mmol/L 22 - 30 mmol/L [place] Creatinine [Mass/Vol] 0.56 mg/dL 0.52 - 1.25 mg/dL [place] EGFR IF NonAfrican [place] >60.0 >60 mL/min [place] Comment on above: Source- MDRD equatio n with creatinine calibration to IDMS(NKDEP) eGFR not recommended for drug dose adjustment GFR/1.73 sq M predicted among blacks MDRD (S/P/Bld) [Vol rate/Area] mL/min/{1.73_m2} >60 mL/min [place] Glucose [Mass/Vol] 129 mg/dL High 70 - 100 mg/dL [place] Interpretation and review of laboratory results Abnormal [place] Potassium [Moles/Vol] 3.9 mmol/L 3.5 - 5.1 mmol/L [place] Sodium [Moles/Vol] 137 mmol/L 135 - 145 mmol/L [place] Urea nitrogen [Mass/Vol] 5 mg/dL Low 7 - 20 mg/dL [place] Blood Gas, Arterialon 2019 Base Excess, Arterial -1.5 mmol/L -3 - 3 mmol/L [place] HCO3, Arterial 22.8 mmol/L 21 - 25 mmol/L [place] Hemoglobin (Bld) [Mass/Vol] 12.1 g/dL ScreenOnly [place] Interpretation and review of laboratory results Abnormal [place] Oxygen saturation in Blood 99.0 % 95 - 100 % [place] pCO2, Arterial 37.1 mm[Hg] 35 - 45 mm[Hg] [place] pH, Arterial 7.407 [place] pO2, Arterial 143.4 mm[Hg] High 80 - 100 mm[Hg] [place] Sodium [Moles/Vol] 0.40 mmol/L [place] TCO2, Arterial 24 mmol/L 23 - 27 mmol/L [place] Test Performed by [id number] [place] [address] CBC auto differentialon 03-31 Absolute Baso # 0.0 10*3/uL 0 - 0.2 10*3/uL [place] Absolute Neut # 8.8 10*3/uL High 1.8 - 7 10*3/uL [place] Basophils/100 WBC (Bld) 0.3 % 0 - 2 % [place] Eosinophils (Bld) [#/Vol] 0.0 10*3/uL 0 - 0.5 10*3/uL [place] Eosinophils/100 WBC (Bld) 0.3 % Low 1 - 6 % [place] Erythrocyte distribution width (RBC) [Ratio] 18.8 % High 11.5 - 14.5 % [place] Granulocytes/100 WBC (Bld) 80.3 % High 40 - 80 % [place] Hematocrit (Bld) [Volume fraction] 36.3 % 35 - 47 % [place] Hemoglobin (Bld) [Mass/Vol] 11.7 g/dL 11.7 - 16 g/dL [place] Interpretation and review of laboratory results Abnormal [place] Lymphocytes (Bld) [#/Vol] 1.4 10*3/uL 1 - 4.3 10*3/uL [place] Lymphocytes/100 WBC (Bld) 12.6 % Low 20 - 40 % [place] MCH (RBC) [Entitic mass] 25.2 pg Low 26 - 34 pg [place] MCHC (RBC) [Mass/Vol] 32.2 % 32 - 36 % [place] MCV (RBC) [Entitic vol] 78.3 fL Low 79 - 98 fL [place] Monocytes (Bld) [#/Vol] 0.7 10*3/uL 0 - 0.8 10*3/uL [place] Monocytes/100 WBC (Bld) 6.5 % 2 - 10 % [place] Platelet mean volume (Bld) [Entitic vol] 9.3 fL 7.4 - 10.4 fL [place] Platelets (Bld) [#/Vol] 245 10*3/uL 140 - 440 10*3/uL [place] RBC (Bld) [#/Vol] 4.63 10*6/uL 3.8 - 5.2 10*6/uL [place] WBC (Bld) [#/Vol] 10.9 10*3/uL High 3.6 - 10.7 10*3/uL [place] Test Performed by [facility], [address] [place] [id number] [place], [place] [address] EEG REPORTon 04-22-2019 Rosamaria Powell MD - 04/22/2019 10:12 AM EST PATIENT: MARY CLAUDIO DATE OF SERVICE: 04/22/2019 ORDER NUMBER: DATE OF : 1985 AGE: 33 ADMITTING PHYSICIAN: Haroon Jones MD ATTENDING PHYSICIAN: Haroon Jones MD DICTATING PHYSICIAN: Rosamaria Powell MD EEG REFERRING PHYSICIAN: Haroon Jones M.D. TEST #: Test - Routine Inpatient 20-Minute EEG: Room #: T314. Indication: This EEG is being requested to diagnose seizures. Findings: Posterior dominant rhythm was absent. Background was described under EEG diagnosis. Sleep was present and abnormal suggestive of sedated sleep. Drowsiness was absent. Photic stimulation was performed with no clear driving response observed. Hyperventilation was deferred. Diagnoses: 1. Frequent sharp waves and spikes in the left anterior to mid temporal region. 2. Frequent irregular delta activity occurring independently in the bilateral left and right anterior to mid temporal regions. 3. Continuous generalized low-voltage irregular delta activity intermixed with generalized fast frequency suggestive of sedation. 4. Absent posterior dominant rhythm. Impression: This abnormal EEG is consistent with potential epileptogenicity in the left anterior to mid temporal region occurring in the context of bilateral independent left and right focal cerebral dysfunction in the anterior to mid temporal regions. The background is consistent with severe generalized nonspecific cerebral dysfunction. No clear seizures were recorded. Diskriter Job ID: [id number] DOD:04/22/2019 09:03 A BEAN/liss DOT:04/22/2019 10:12 A Job Number: [id number] Document Number: [id number] ###### cc: Haroon Jones MD [facility] [address] [place] [address] EKG 12 Leadon 04-22-2019 [place], [facility] Incoming Cardiology Results From [facility] - 04/22/2019 11:38 AM EST [facility] Test Date: 2019-04-21 Pat Name: Mary Claudio Department: [facility] Room: [facility] Gender: F 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: JENNIFER : 1985 Requested By: FAHAD TILLMAN Order Number: [id number] Reading MD: Jose Garsia Measurements Intervals [place] Rate: 73 P: 50 [place]: 166 QRS: 39 QRSD: 77 T: 53 QT: 391 QTc: 431 Interpretive Statements Sinus rhythm Probable left atrial enlargement Nonspecific ST and T wave changes Electronically Signed On 04-22-2019 11:37:26 EST by Jose Garsia [facility] Test Date: 2019-04-21 Pat Name: Mary Claudio Department: [facility] Room: [facility] Gender: F 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: JENNIFER : 1985 Requested By: FAHAD TILLMAN Order Number: [id number] Reading MD: Jose Garsia Measurements Intervals [place] Rate: 73 P: 50 [place]: 166 QRS: 39 QRSD: 77 T: 53 QT: 391 QTc: 431 Interpretive Statements Sinus rhythm Probable left atrial enlargement Nonspecific ST and T wave changes Electronically Signed On 04-22-2019 11:37:26 EST by Jose Garsia [place] Magnesiumon 04-22-2019 Magnesium [Mass/Vol] 1.9 mg/dL 1.6 - 2 .3 mg/dL [place] Otheron 04-22-2019 Test Performed by [facility], [address] [place] [address] Phenytoin Level, Totalon Interpretation and review of laboratory results Abnormal [place] Phenytoin Lvl 4 ug/mL Low 10 - 20 ug/mL [place] Test Performed by [facility], [address] [place] [address] Phosphoruson 04-22-2019 Phosphate [Mass/Vol] 3.6 mg/dL 2.5 - 4 .5 mg/dL [place] Troponinon 04-22-2019 Troponin I.cardiac [Mass/Vol] 0.033 ng/mL 0 - 0.034 ng/mL [place] Comment on above: . Test Performed by [facility], [address] [place] [address] Interpretation and review of laboratory results Abnormal [place] Troponin I.cardiac [Mass/Vol] 0.051 ng/mL High 0 - 0.034 ng/mL [place] Comment on above: . Test Performed by [facility], [address] [place] [address] XR CHEST 1 VWon 04-22-2019 Patient Name: MARY WOMACK ---Diagnostic Radiology--- Exam Date/Time 04/22/2019 06:15:41 EST Exam CR Chest 1 View Frontal Ordering Physician Fadi ZepedaFAHAD TILLMAN Accession Number [id number] CPT4 Codes 72753 () Reason For Exam intubated Report Clinical History: intubated Comparison: 04/21/2019 Technique: Single AP radiograph of the chest. Findings: Endotracheal tube tip is 2.4 cm above the sidney. NG tube courses below the diaphragm with tip near the gastric fundus. Right IJ central venous catheter tip is in the SVC. Several additional cardiac leads overlie the patient's thorax. Cardiomediastinal silhouette and pulmonary vasculature are normal. Strandy left greater than right basilar atelectasis is present. The lungs and pleural spaces are otherwise clear. Impression: Minimal basilar atelectasis. Lines and tubes, as above. Report Dictated on --- Final --- Dictated: 04/22/2019 6:59 am Dictating Physician: MD BALTAZAR JAMES Signed Date and Time: 04/22/2019 7:00 am Signed by: MD BALTAZAR JAMES Transcribed Date and Time: 04/22/2019 6:59 [facility], [place] [facility], [facility] Incoming Radiology Results From [facility] - 04/22/2019 7:02 AM EST Patient Name: MARY CLAUDIO ---Diagnostic Radiology--- Exam Date/Time 04/22/2019 06:15:41 EST Exam CR Chest 1 View Frontal Ordering Physician [id number] FAHAD GAR Accession Number [id number] CPT4 Codes 08970 () Reason For Exam intubated Report Clinical History: intubated Comparison: 04/21/2019 Technique: Single AP radiograph of the chest. Findings: Endotracheal tube tip is 2.4 cm above the sidney. NG tube courses below the diaphragm with tip near the gastric fundus. Right IJ central venous catheter tip is in the SVC. Several additional cardiac leads overlie the patient's thorax. Cardiomediastinal silhouette and pulmonary vasculature are normal. Strandy left greater than right basilar atelectasis is present. The lungs and pleural spaces are otherwise clear. Impression: Minimal basilar atelectasis. Lines and tubes, as above. Report Dictated on --- Final --- Dictated: 04/22/2019 6:59 am Dictating Physician: MD BALTAZAR JAMES Signed Date and Time: 04/22/2019 7:00 am Signed by: MD BALTAZAR JAMES Transcribed Date and Time: 04/22/2019 6:59 [place], [place] Blood Gas, Arterialon 2019 Base Excess, Arterial -1.7 mmol/L -3 - 3 mmol/L [place] HCO3, Arterial 22.7 mmol/L 21 - 25 mmol/L [place] Hemoglobin (Bld) [Mass/Vol] 12.5 g/dL ScreenOnly [place] Interpretation and review of laboratory results Abnormal [place] Oxygen saturation in Blood 99.4 % 95 - 100 % [place] pCO2, Arterial 37.6 mm[Hg] 35 - 45 mm[Hg] [place] pH, Arterial 7.399 [place] pO2, Arterial 210.4 mm[Hg] High 80 - 100 mm[Hg] [place] Sodium [Moles/Vol] No data [place] TCO2, Arterial 23.9 mmol/L 23 - 27 mmol/L [place] Test Performed by [facility], [address] [place] [id number] [place] C-Reactive Proteinon 020 CRP [Mass/Vol] 24.5 mg/L High 0 - 6 mg/L [place] Comment on above: . CBC auto differentialon 03-31 Absolute Baso # 0.0 10*3/uL 0 - 0.2 10*3/uL [place] Absolute Neut # 10.5 10*3/uL High 1.8 - 7 10*3/uL [place] Basophils/100 WBC (Bld) 0.3 % 0 - 2 % [place] Eosinophils (Bld) [#/Vol] 0.0 10*3/uL 0 - 0.5 10*3/uL [place] Eosinophils/100 WBC (Bld) 0.2 % Low 1 - 6 % [place] Erythrocyte distribution width (RBC) [Ratio] 19.4 % High 11.5 - 14.5 % [place] Granulocytes/100 WBC (Bld) 83.0 % High 40 - 80 % [place] Hematocrit (Bld) [Volume fraction] 36.3 % 35 - 47 % [place] Hemoglobin (Bld) [Mass/Vol] 11.7 g/dL 11.7 - 16 g/dL [place] Interpretation and review of laboratory results Abnormal [place] Lymphocytes (Bld) [#/Vol] 1.3 10*3/uL 1 - 4.3 10*3/uL [place] Lymphocytes/100 WBC (Bld) 10.4 % Low 20 - 40 % [place] MCH (RBC) [Entitic mass] 25.1 pg Low 26 - 34 pg [place] MCHC (RBC) [Mass/Vol] 32.2 % 32 - 36 % [place] MCV (RBC) [Entitic vol] 78.0 fL Low 79 - 98 fL [place] Monocytes (Bld) [#/Vol] 0.8 10*3/uL 0 - 0.8 10*3/uL [place] Monocytes/100 WBC (Bld) 6.1 % 2 - 10 % [place] Platelet mean volume (Bld) [Entitic vol] 9.1 fL 7.4 - 10.4 fL [place] Platelets (Bld) [#/Vol] 247 10*3/uL 140 - 440 10*3/uL [place] RBC (Bld) [#/Vol] 4.66 10*6/uL 3.8 - 5.2 10*6/uL [place] WBC (Bld) [#/Vol] 12.6 10*3/uL High 3.6 - 10.7 10*3/uL [place] CKon 04-21-2019 Total CK 133 U/L 30 - 170 U/L [place] CT HEAD WO CONTRASTon 2019 [facility], [facility] Incoming Radiology Results From [facility] - 04/21/2019 11:42 PM EST Patient Name: MARY CLAUDIO ---CT--- Exam Date/Time 04/21/2019 23:31:[address] Head or Brain w/o Contrast Ordering Physician MD SILVERIO BRANAVAN Accession Number [id number] CPT4 Codes 52720 () Reason For Exam status epilepticus Report Examination: CT Head Clinical Information: Seizure Comparison: November 05, 2018 Findings: Serial axial [address] images were obtained through the skull without intravenous contrast. Coronal, sagittal, and axial images were reconstructed. The ventricular system and cortical sulci are within normal limits. Young white differentiation is well preserved. There is no evidence of gross mass, hemorrhage or edema. Stable prominent CSF space versus small remote lacunar infarct along the left external capsule, unchanged. No areas of mass-effect or infarct are seen. Sinuses appear well pneumatized. Impression: Unremarkable noncontrast CT scan of the head. No evidence of acute intracranial process. Report Dictated on --- Final --- Dictated: 04/21/2019 11:39 pm Dictating Physician: MD CAO JASON Signed Date and Time: 04/21/2019 11:41 pm Signed by: MD CAO JASON Transcribed Date and Time: 04/21/2019 11:39 [place] Patient Name: MARY WOMACK ---CT--- Exam Date/Time 04/21/2019 23:31:[address] Head or Brain w/o Contrast Ordering Physician MD SILVERIO BRANAVAN Accession Number [id number] CPT4 Codes 03210 () Reason For Exam status epilepticus Report Examination: CT Head Clinical Information: Seizure Comparison: November 05, 2018 Findings: Serial axial [address] images were obtained through the skull without intravenous contrast. Coronal, sagittal, and axial images were reconstructed. The ventricular system and cortical sulci are within normal limits. Young white differentiation is well preserved. There is no evidence of gross mass, hemorrhage or edema. Stable prominent CSF space versus small remote lacunar infarct along the left external capsule, unchanged. No areas of mass-effect or infarct are seen. Sinuses appear well pneumatized. Impression: Unremarkable noncontrast CT scan of the head. No evidence of acute intracranial process. Report Dictated on --- Final --- Dictated: 04/21/2019 11:39 pm Dictating Physician: MD CAO JASON Signed Date and Time: 04/21/2019 11:41 pm Signed by: MD CAO JASON Transcribed Date and Time: 04/21/2019 11:39 [place] Comprehensive Metabolic Pane l w/ Reflex to MGon 04-21-2019 Albumin [Mass/Vol] 3.6 g/dL 3.5 - 5 g/dL [place] ALP [Catalytic activity/Vol] 113 U/L 38 - 126 U/L [place] ALT [Catalytic activity/Vol] 27 U/L 13 - 69 U/L [place] Anion gap [Moles/Vol] 6 mmol/L [place] AST [Catalytic activity/Vol] 26 U/L 15 - 46 U/L [place] Bilirubin Ql (U) 0.2 mg/dL 0.2 - 1.3 mg/dL [place] Calcium [Mass/Vol] 8.4 mg/dL 8.4 - 10. 4 mg/dL [place] Chloride [Moles/Vol] 102 mmol/L 98 - 10 7 mmol/L [place] CO2 [Moles/Vol] 24 mmol/L 22 - 30 mmol/L [place] Creatinine [Mass/Vol] 0.59 mg/dL 0.52 - 1.25 mg/dL [place] EGFR IF NonAfrican [place]uvian >60.0 >60 mL/min [place] Comment on above: Source- MDRD equatio n with creatinine calibration to IDMS(NKDEP) eGFR not recommended for drug dose adjustment GFR/1.73 sq M predicted among blacks MDRD (S/P/Bld) [Vol rate/Area] mL/min/{1.73_m2} >60 mL/min [place] Glucose [Mass/Vol] 107 mg/dL High 70 - 100 mg/dL [place] Potassium [Moles/Vol] 3.7 mmol/L 3.5 - 5.1 mmol/L [place] Protein [Mass/Vol] 7.0 g/dL 6.3 - 8.2 g/dL [place] Sodium [Moles/Vol] 133 mmol/L Low 135 - 145 mmol/L [place] Urea nitrogen [Mass/Vol] 6 mg/dL Low 7 - 20 mg/dL [place] HCG, QUANTITATIVE, on 04-21-2019 hCG Quant <2 <3 m[IU]/mL [place] Test Performed by [facility], [address] [place] [address] Hemoglobin A1Con 04-21-2019 eAG 100 mg/dL [place] HbA1c (Bld) [Mass fraction] 5.1 % 4 - 5.7 % [place] Comment on above: --HgbA1C levels may not be accurate in patients who have renal disease, received recent blood transfusions, are anemic, or who have dyshemoglobinemia. Test Performed by [facility], [address] [place] [address] Lactate Dehydrogenaseon 03-31 LD 164 U/L 50 - 170 U/L [place] Lactic Acid, Plasmaon 2019 Interpretation and review of laboratory results Abnormal [place] Lactate [Moles/Vol] 0.6 mmol/L Low 0.7 - 2 mmol/L [place] Magnesiumon 04-21-2019 Magnesium [Mass/Vol] 1.8 mg/dL 1.6 - 2 .3 mg/dL [place] Otheron 04-21-2019 Interpretation and review of laboratory results Abnormal [place] Test Performed by [facility], [facility] [address] Test Performed by [facility], [facility] [address] Test Performed by [facility], [facility] [address] Phenytoin Level, Totalon Interpretation and review of laboratory results Abnormal [place] Phenytoin Lvl <3.0 Low 10 - 20 ug/mL [place] Test Performed by [facility], [address] [place] [address] [place] Phosphoruson 04-21-2019 Phosphate [Mass/Vol] 3.6 mg/dL 2.5 - 4 .5 mg/dL [place] Procalcitoninon 04-21-2019 Interpretation and review of laboratory results Abnormal [place] Procalcitonin 0.1 ng/mL Abnormal <0.10 [place] Sodium [Moles/Vol] See Below [place], [place] Comment on above: PCT <0.50 = Low risk of severe sepsis and/or septic shock. PCT >2.00 = High risk of severe sepsis and/or septic shock. Test Performed by [facility], [address] [place] [id number] [place] [address] Sedimentation Rateon 020 Interpretation and review of laboratory results Abnormal [place] Sed Rate 50 mm/h High 0 - 20 mm/h [place] Test Performed by [facility], [address] [place] [id number] [place] [address] T4, FREEon 04-21-2019 Free T4 [Mass/Vol] 1.09 ng/dL 0.78 - 2. 19 ng/dL [place] Test Performed by [facility], [address] [place] [address] [place] TSH without Reflexon 020 TSH Qn 1.026 u[IU]/mL 0.465 - 4.68 u[IU]/mL [place] Test Performed by [facility], [address] [place] [id number] [place] [address] Troponinon 04-21-2019 Interpretation and review of laboratory results Abnormal [place] Troponin I.cardiac [Mass/Vol] 0.052 ng/mL High 0 - 0.034 ng/mL [place] Comment on above: . Test Performed by [facility], [address] [place] [address] [place] URINE DRUG SCREENon 04-21-19 20 Amphetamines, urine Negative [facility], [place] Barbiturates, Ur Negative [facility] Benzodiazepine Ur Qual Positive [facility] Cocaine Metabolites, Ur Negative [facility] Methadone, Urine Negative [facility] Opiates, Urine Negative [facility] Oxycodone Screen, Ur Negative [facility] PCP, Urine Negative [facility], [place] Comment on above: The expected value f or all of the drugs listed above is Negative. The following drugs or drug groups have been screened for by Immunoassay at the following thresholds: Amphetamine class (1000 ng/mL), Barbiturates (200 ng/mL), Benzodiazepines (200 ng/mL), Cocaine (300 ng/mL), Methadone (300 ng/mL), Opiates (300 ng/mL), Oxycodone (100 ng/mL), and PCP (25 ng/mL). NOTE: These results are for medical treatment only. Analysis performed using non-forensic procedures. POSITIVE results are NOT confirmed by a more specific alternative method unless requested. If confirmation is needed, request confirmation under separate order. Test Performed by [facility], [address] [place] [id number] [place] Urinalysison 04-21-2019 Appearance (U) Clear Clear NA [place] Bilirubin Urine Negative Negative mg/dL [place] Color (U) Light-Yellow Lt. Yellow NA [place] Glucose, Ur Normal Normal (<70) mg/dL [place] Ketones Ql (U) Negative Negative mg/dL [facility], [place] LEUKOCYTES, UA Negative Negative Felix/uL [place] Nitrite, Urine Negative Negative NA [place] Occult Blood,Urine Negative Negative mg/dL [place] pH (U) 6.0 [pH] [place] Protein (U) [Mass/Vol] Negative Negative mg/dL [place] Specific [place], Urine 1.011 [place] Urobilinogen, Urine Normal Normal ( 0-1) mg/dL [place] XR ABDOMEN (KUB) (SINGLE AP VIEW)on 04-21-2019 [facility], [facility] Incoming Radiology Results From [facility] - 04/21/2019 7:48 PM EST Patient Name: MARY CLAUDIO ---Diagnostic Radiology--- Exam Date/Time 04/21/2019 19:39:52 EST Exam CR Abdomen AP Ordering Physician MD JOSE L, MARIBELL Accession Number [id number] CPT4 Codes 02956 () Reason For Exam OG placement Report KUB CLINICAL INDICATION: Oral gastric tube placement Supine image of the abdomen was obtained targeted to the left side of the abdomen. Oral gastric tube is partially coiled in the fundus of the stomach. Air is noted within the stomach and there is patchy nondilated small bowel and colon gas. Surgical clips are noted in the right upper abdomen probably from cholecystectomy. No acute osseous abnormality is noted. IMPRESSION: Oral gastric tube terminates in the fundus of the stomach with a partial redundant loop Report Dictated on --- Final --- Dictated: 04/21/2019 7:45 pm Dictating Physician: MD LAL DIANE Signed Date and Time: 04/21/2019 7:46 pm Signed by: MD LAL DIANE Transcribed Date and Time: 04/21/2019 7:45 [place] Patient Name: MARY WOMACK ---Diagnostic Radiology--- Exam Date/Time 04/21/2019 19:39:52 EST Exam CR Abdomen AP Ordering Physician MD JOSE L, MARIBELL Accession Number [id number] CPT4 Codes 88569 () Reason For Exam OG placement Report KUB CLINICAL INDICATION: Oral gastric tube placement Supine image of the abdomen was obtained targeted to the left side of the abdomen. Oral gastric tube is partially coiled in the fundus of the stomach. Air is noted within the stomach and there is patchy nondilated small bowel and colon gas. Surgical clips are noted in the right upper abdomen probably from cholecystectomy. No acute osseous abnormality is noted. IMPRESSION: Oral gastric tube terminates in the fundus of the stomach with a partial redundant loop Report Dictated on --- Final --- Dictated: 04/21/2019 7:45 pm Dictating Physician: MD LAL DIANE Signed Date and Time: 04/21/2019 7:46 pm Signed by: MD LAL DIANE Transcribed Date and Time: 04/21/2019 7:45 [place] XR CHEST PORTABLEon 04-21-19 Patient Name: MARY WOMACK ---Diagnostic Radiology--- Exam Date/Time 04/21/2019 19:39:52 EST Exam CR Chest Portable Ordering Physician MD DOMINGO ASHLEY Accession Number [id number] CPT4 Codes 16409 () Reason For Exam Line placement Report SINGLE FRONTAL VIEW OF THE CHEST CLINICAL INDICATION: Line placement TECHNIQUE: Single frontal view of the chest COMPARISON: Earlier today FINDINGS: NG tube tip is in the gastric fundus. Right jugular catheter tip is in the SVC. Endotracheal tube tip 3 cm above the sidney. Minor atelectasis at the lung bases. Lung volumes are low. Heart size normal. No pneumothorax seen. IMPRESSION: 1. Minor atelectasis at the lung bases. Tubes/lines as described. Report Dictated on --- Final --- Dictated: 04/21/2019 7:44 pm Dictating Physician: MD ZIMMERMAN JOHN R Signed Date and Time: 04/21/2019 7:47 pm Signed by: MD ZIMMERMAN JOHN R Transcribed Date and Time: 04/21/2019 7:44 [place], [facility] Incoming Radiology Results From [facility] - 04/21/2019 7:48 PM EST Patient Name: MARY CLAUDIO ---Diagnostic Radiology--- Exam Date/Time 04/21/2019 19:39:52 EST Exam CR Chest Portable Ordering Physician MD DOMINGO ASHLEY Accession Number [id number] CPT4 Codes 34326 () Reason For Exam Line placement Report SINGLE FRONTAL VIEW OF THE CHEST CLINICAL INDICATION: Line placement TECHNIQUE: Single frontal view of the chest COMPARISON: Earlier today FINDINGS: NG tube tip is in the gastric fundus. Right jugular catheter tip is in the SVC. Endotracheal tube tip 3 cm above the sidney. Minor atelectasis at the lung bases. Lung volumes are low. Heart size normal. No pneumothorax seen. IMPRESSION: 1. Minor atelectasis at the lung bases. Tubes/lines as described. Report Dictated on --- Final --- Dictated: 04/21/2019 7:44 pm Dictating Physician: MD ZIMMERMAN JOHN R Signed Date and Time: 04/21/2019 7:47 pm Signed by: MD ZIMMERMAN JOHN R Transcribed Date and Time: 04/21/2019 7:44 [place] Patient Name: MARY WOMACK ---Diagnostic Radiology--- Exam Date/Time 04/21/2019 17:53:57 EST Exam CR Chest Portable Ordering Physician FAHAD MARROQUIN Accession Number [id number] CPT4 Codes 48498 () Reason For Exam ETT and OG placement Report SINGLE FRONTAL VIEW OF THE CHEST CLINICAL INDICATION: ETT and OG placement TECHNIQUE: Single frontal view of the chest COMPARISON: 02/23/2019 FINDINGS: Endotracheal tube tip 3.2 cm above the sidney. NG tube tip in the gastric fundus. Normal heart size. Low lung volumes. Mild bibasilar atelectasis. No pneumothorax or pleural effusion. IMPRESSION: 1. Mild bibasilar atelectasis. Report Dictated on --- Final --- Dictated: 04/21/2019 6:07 pm Dictating Physician: MD ZIMMERMAN JOHN R Signed Date and Time: 04/21/2019 6:08 pm Signed by: MD ZIMMERMAN JOHN R Transcribed Date and Time: 04/21/2019 6:07 [place], [facility] Incoming Radiology Results From [facility] - 04/21/2019 6:09 PM EST Patient Name: MARY CLAUDIO ---Diagnostic Radiology--- Exam Date/Time 04/21/2019 17:53:57 EST Exam CR Chest Portable Ordering Physician [id number] -FAHAD TILLMAN Accession Number [id number] CPT4 Codes 77150 () Reason For Exam ETT and OG placement Report SINGLE FRONTAL VIEW OF THE CHEST CLINICAL INDICATION: ETT and OG placement TECHNIQUE: Single frontal view of the chest COMPARISON: 02/23/2019 FINDINGS: Endotracheal tube tip 3.2 cm above the sidney. NG tube tip in the gastric fundus. Normal heart size. Low lung volumes. Mild bibasilar atelectasis. No pneumothorax or pleural effusion. IMPRESSION: 1. Mild bibasilar atelectasis. Report Dictated on --- Final --- Dictated: 04/21/2019 6:07 pm Dictating Physician: MD ZIMMERMAN JOHN R Signed Date and Time: 04/21/2019 6:08 pm Signed by: MD ZIMMERMAN JOHN R Transcribed Date and Time: 04/21/2019 6:07 [place] POCT GlucoseOrdered By: Juliocesar Johnson on 02-28-2019 Glucose [Mass/Vol] 85 mg/dL 70 - 100 mg/dL [facility] Work Phone: Comment on above: Test performed by [employer] ucose meter. Results may be 10%-15% lower than serum/plasma values. (CLIA ID [id number]) Test Performed by [employer] [facility], [facility] [place] [address] [facility] Work Phone: Glucose [Mass/Vol] 92 mg/dL 70 - 100 mg/dL [facility] Work Phone: Comment on above: Test performed by gl ucose meter. Results may be 10%-15% lower than serum/plasma values. (CLIA ID [id number]) Test Performed by [employer] [facility], [facility] [place] [address] [facility] Work Phone: Basic Metabolic Panel w/ Ref mavis to MGOrdered By: Kobi Quiles on 02-27-2019 Anion gap [Moles/Vol] 6 mmol/L [facility] Work Phone: Calcium [Mass/Vol] 8.8 mg/dL 8.4 - 10. 4 mg/dL [facility] Work Phone: [phone] Chloride [Moles/Vol] 111 mmol/L High 98 - 10 7 mmol/L [facility] Work Phone: [phone] CO2 [Moles/Vol] 23 mmol/L 22 - 30 mmol/L [facility] Work Phone: [phone] Creatinine [Mass/Vol] 0.83 mg/dL 0.52 - 1.25 mg/dL [facility] Work Phone: [phone] IF NonAfrican Peruvian >60.0 >60 mL/min [facility] Work Phone: [phone] Comment on above: Source- MDRD equatio n with creatinine calibration to IDMS(NKDEP) eGFR not recommended for drug dose adjustment GFR/1.73 sq M.predicted among blacks MDRD (S/P/Bld) [Vol rate/Area] mL/min/{1.73_m2} >60 mL/min [facility] Work Phone: [phone] Glucose [Mass/Vol] 91 mg/dL 70 - 100 mg/dL [facility] Work Phone: [phone] Interpretation and review of laboratory results Abnormal [facility] Work Phone: [phone] Potassium [Moles/Vol] 3.6 mmol/L 3.5 - 5.1 mmol/L [facility] Work Phone: [phone] Sodium [Moles/Vol] 141 mmol/L 135 - 145 mmol/L [facility] Work Phone: [phone] Urea nitrogen [Mass/Vol] 8 mg/dL 7 - 20 mg/dL [facility] Work Phone: [phone] CBC auto differentialOrdered By: Kobi Quiles on 02-27-2019 Absolute Baso # 0.1 10*3/uL 0 - 0.2 10*3/uL [facility] Work Phone: Absolute Neut # 3.7 10*3/uL 1.8 - 7 10*3/uL [facility] Work Phone: Basophils/100 WBC (Bld) 1.1 % 0 - 2 % [facility] Work Phone: Eosinophils (Bld) [#/Vol] 0.5 10*3/uL 0 - 0.5 10*3/uL [employer] Work Phone: [phone] Eosinophils/100 WBC (Bld) 8.0 % High 1 - 6 % [facility] Work Phone: Erythrocyte distribution width (RBC) [Ratio] 18.1 % High 11.5 - 14.5 % [employer] Work Phone: Granulocytes/100 WBC (Bld) 56.8 % 40 - 80 % [employer] Work Phone: Hematocrit (Bld) [Volume fraction] 31.9 % Low 35 - 47 % [facility] Work Phone: Hemoglobin (Bld) [Mass/Vol] 10.0 g/dL Low 11.7 - 16 g/dL [employer] Work Phone: [phone] Interpretation and review of laboratory results Abnormal [employer] Work Phone: Lymphocytes (Bld) [#/Vol] 1.6 10*3/uL 1 - 4.3 10*3/uL [employer] Work Phone: [phone] Lymphocytes/100 WBC (Bld) 24.3 % 20 - 40 % [employer] Work Phone: MCH (RBC) [Entitic mass] 23.1 pg Low 26 - 34 pg [employer] Work Phone: 1 MCHC 31.5 % Low 32 - 36 % [employer] Work Phone: MCV (RBC) [Entitic vol] 73.3 fL Low 79 - 98 fL [facility] Work Phone: 22 Monocytes (Bld) [#/Vol] 0.6 10*3/uL 0 - 0.8 10*3/uL [facility] Work Phone: 22 Monocytes/100 WBC (Bld) 9.8 % 2 - 10 % [employer] Work Phone: Platelet mean volume (Bld) [Entitic vol] 9.2 fL 7.4 - 10.4 fL [employer] Work Phone: 22 Platelets (Bld) [#/Vol] 234 10*3/uL 140 - 440 10*3/uL [facility] Work Phone: 1 RBC (Bld) [#/Vol] 4.34 10*6/uL 3.8 - 5.2 10*6/uL [facility] Work Phone: WBC (Bld) [#/Vol] 6.4 10*3/uL 3.6 - 10.7 10*3/uL [facility] Work Phone: Test Performed by [facility], [address] [place] [address] [facility] Work Phone: MagnesiumOrdered By: Kobi pavon on 02-27-2019 Magnesium [Mass/Vol] 2.0 mg/dL 1.6 - 2 .3 mg/dL [facility] Work Phone: No Panel InformationOrdered By: Kobi Quiles on 02-27-2019 Test Performed by [facility], [facility] [place] [address] [facility] Work Phone: POCT GlucoseOrdered By: Juliocesar Johnson on 02-27-2019 Glucose [Mass/Vol] 84 mg/dL 70 - 100 mg/dL [facility] Work Phone: Comment on above: Test performed by [employer] ucose meter. Results may be 10%-15% lower than serum/plasma values. (CLIA ID [id number]) Test Performed by [facility], [facility] [place] [address] [employer] Work Phone: PhosphorusOrdered By: Kobi wiggins on 02-27-2019 Phosphate [Mass/Vol] 4.3 mg/dL 2.5 - 4 .5 mg/dL [facility] Work Phone: XR CHEST PORTABLEOrdered By: Kobi Quiles on 02-27-2019 Patient Name: MARY WOMACK ---Diagnostic Radiology--- Exam Date/Time 02/27/2019 07:19:47 EST Exam CR Chest Portable Ordering Physician DO QUILES PAUL Accession Number [id number] CPT4 Codes 16761 () Reason For Exam PNA Report PORTABLE CHEST X-RAY CLINICAL INDICATION: Pneumonia A portable frontal view of the chest was obtained. COMPARISON: 02/26/2019 FINDINGS: The cardiac silhouette is within normal limits. Right jugular catheter terminates over the superior vena cava, unchanged. No focal consolidation is seen within the lungs. There is no large pleural effusion or pneumothorax. The bony structures of the chest are unremarkable as visualized. IMPRESSION: No significant change when compared with the previous study. Report Dictated on --- Final --- Dictated: 02/27/2019 7:52 am Dictating Physician: MD FAUSTIN JONATHAN R Signed Date and Time: 02/27/2019 7:53 am Signed by: MD FAUSTIN JONATHAN R Transcribed Date and Time: 02/27/2019 7:52 [facility] Work Phone: [facility], [facility] Incoming [facility] Results From [facility] - 02/27/2019 7:54 AM EST Patient Name: MARY CLAUDIO ---Diagnostic Radiology--- Exam Date/Time 02/27/2019 07:19:47 EST Exam CR Chest Portable Ordering Physician DO QUILES PAUL Accession Number [id number] CPT4 Codes 77004 () Reason For Exam PNA Report PORTABLE CHEST X-RAY CLINICAL INDICATION: Pneumonia A portable frontal view of the chest was obtained. COMPARISON: 02/26/2019 FINDINGS: The cardiac silhouette is within normal limits. Right jugular catheter terminates over the superior vena cava, unchanged. No focal consolidation is seen within the lungs. There is no large pleural effusion or pneumothorax. The bony structures of the chest are unremarkable as visualized. IMPRESSION: No significant change when compared with the previous study. Report Dictated on --- Final --- Dictated: 02/27/2019 7:52 am Dictating Physician: MD FAUSTIN JONATHAN R Signed Date and Time: 02/27/2019 7:53 am Signed by: MD FAUSTIN JONATHAN R Transcribed Date and Time: 02/27/2019 7:52 [facility] Work Phone: Basic Metabolic Panel w/ Ref mavis to MGOrdered By: Kobi Quiles on 02-26-2019 Anion gap [Moles/Vol] 8 mmol/L [facility] Work Phone: [phone] Calcium [Mass/Vol] 9.1 mg/dL 8.4 - 10. 4 mg/dL [facility] Work Phone: [phone] Chloride [Moles/Vol] 111 mmol/L High 98 - 10 7 mmol/L [facility] Work Phone: [phone] CO2 [Moles/Vol] 22 mmol/L 22 - 30 mmol/L [facility] Work Phone: [phone] Creatinine [Mass/Vol] 0.89 mg/dL 0.52 - 1.25 mg/dL [facility] Work Phone: [phone] EGFR IF NonAfrican Peruvian >60.0 >60 mL/min [facility] Work Phone: [phone] Comment on above: Source- MDRD equatio n with creatinine calibration to IDMS(NKDEP) eGFR not recommended for drug dose adjustment GFR/1.73 sq M.predicted among blacks MDRD (S/P/Bld) [Vol rate/Area] mL/min/{1.73_m2} >60 mL/min [facility] Work Phone: [phone] Glucose [Mass/Vol] 95 mg/dL 70 - 100 mg/dL [facility] Work Phone: [phone] Interpretation and review of laboratory results Abnormal [facility] Work Phone: [phone] Potassium [Moles/Vol] 4.0 mmol/L 3.5 - 5.1 mmol/L [facility] Work Phone: [phone] Sodium [Moles/Vol] 142 mmol/L 135 - 145 mmol/L [facility] Work Phone: [phone] Urea nitrogen [Mass/Vol] 6 mg/dL Low 7 - 20 mg/dL [facility] Work Phone: [phone] CBC auto differentialOrdered By: Kobi Quiles on 02-26-2019 Absolute Baso # 0.1 10*3/uL 0 - 0.2 10*3/uL [facility] Work Phone: [phone] Absolute Neut # 6.7 10*3/uL 1.8 - 7 10*3/uL [facility] Work Phone: [phone] 22 Basophils/100 WBC (Bld) 1.0 % 0 - 2 % [facility] Work Phone: Eosinophils (Bld) [#/Vol] 0.8 10*3/uL High 0 - 0.5 10*3/uL [facility] Work Phone: 22 Eosinophils/100 WBC (Bld) 7.8 % High 1 - 6 % [facility] Work Phone: 22 Erythrocyte distribution width (RBC) [Ratio] 18.0 % High 11.5 - 14.5 % [employer] Work Phone: 22 Granulocytes/100 WBC (Bld) 66.6 % 40 - 80 % [employer] Work Phone: Hematocrit (Bld) [Volume fraction] 33.5 % Low 35 - 47 % [employer] Work Phone: Hemoglobin (Bld) [Mass/Vol] 10.7 g/dL Low 11.7 - 16 g/dL [employer] Work Phone: Interpretation and review of laboratory results Abnormal [employer] Work Phone: Lymphocytes (Bld) [#/Vol] 1.6 10*3/uL 1 - 4.3 10*3/uL [employer] Work Phone: 22 Lymphocytes/100 WBC (Bld) 16.1 % Low 20 - 40 % [employer] Work Phone: MCH (RBC) [Entitic mass] 23.2 pg Low 26 - 34 pg [facility] Work Phone: 22 MCHC 31.9 % Low 32 - 36 % [facility] Work Phone: 22 MCV (RBC) [Entitic vol] 72.6 fL Low 79 - 98 fL [employer] Work Phone: Monocytes (Bld) [#/Vol] 0.9 10*3/uL High 0 - 0.8 10*3/uL [facility] Work Phone: 22 Monocytes/100 WBC (Bld) 8.5 % 2 - 10 % [employer] Work Phone: 22 Platelet mean volume (Bld) [Entitic vol] 9.4 fL 7.4 - 10.4 fL [employer] Work Phone: 1 Platelets (Bld) [#/Vol] 254 10*3/uL 140 - 440 10*3/uL [employer] Work Phone: RBC (Bld) [#/Vol] 4.62 10*6/uL 3.8 - 5.2 10*6/uL [facility] Work Phone: WBC (Bld) [#/Vol] 10.0 10*3/uL 3.6 - 10.7 10*3/uL [employer] Work Phone: Test Performed by [employer] [place] [address] [employer] Work Phone: Culture Blood #2Ordered By: Williams Apple on 02-26-2019 Blood Culture, Routine POSITIVE: Staphylococcus species (probable Coagulase negative Staph) DETECTED. POSITIVE: mecA (methicillin resistance gene) DETECTED. Presumptive identification performed using [employer] PCR methodology; confirmatory identification to follow. _ The [employer] Blood Culture Identification PCR Panel can detect the following targets: Staphylococcus aureus, Staphylococcus species, Enterococcus species, Streptococcus species, Streptococcus agalactiae (Group B), Streptococcus pneumoniae, Streptococcus pyogenes (Group A), Listeria monocytogenes, Acinetobacter baumannii complex, Enterobacteriaceae, Enterobacter cloacae complex, Escherichia coli, Klebsiella oxytoca, Klebsiella pneumoniae, Proteus species, Serratia marcescens, Pseudomonas aeruginosa, Haemophilus influenzae, Neisseria meningitidis, Petrona albicans, Petrona glabrata, Petrona krusei, Petrona parapsilosis, Petrona tropicalis Abnormal [employer] Work Phone: Blood Culture, Routine Staphylococcus epidermidis Abnormal [employer] Work Phone: Blood Culture, Routine Isolated: Contamination likely unless additional blood culture sets are found to be positive with the same organism. [employer] Work Phone: Interpretation and review of laboratory results Abnormal [employer] Work Phone: Test Performed by [facility] [place] [address] Specimen Source Comment:Blood [employer] Work Phone: ) MagnesiumOrdered By: Kobi pavon on 02-26-2019 Magnesium [Mass/Vol] 2.0 mg/dL 1.6 - 2 .3 mg/dL [facility] Work Phone: [phone] Panel InformationOrdered By: Kobi Quiles on 02-26-2019 Test Performed by [facility], [address] [place] [id number] [facility] Work Phone: [phone] PhosphorusOrdered By: Kobi wiggins on 02-26-2019 Phosphate [Mass/Vol] 3.7 mg/dL 2.5 - 4 .5 mg/dL [facility] Work Phone: [phone] Respiratory CultureOrdered B y: Haroon Jones on 02-26-2019 Interpretation and review of laboratory results Abnormal [facility] Work Phone: [phone] Respiratory Culture Rare normal respirat ory reta. Abnormal [facility] Work Phone: [phone] Respiratory Culture Streptococcus pneumoniae Abnormal [facility] Work Phone: [phone] Respiratory Culture Many [facility] Work Phone: [phone] Test Performed by [facility], [address] [place] [address] Specimen Source Comment:Sputum [facility] Work Phone: [phone] XR CHEST PORTABLEOrdered By: Kobi Qiules on 02-26-2019 Patient Name: MARY WOMACK ---Diagnostic Radiology--- Exam Date/Time 02/26/2019 05:56:03 EST Exam CR Chest Portable Ordering Physician DO QUILES PAUL Accession Number [id number] CPT4 Codes 94949 () Reason For Exam PNA Report CLINICAL INFORMATION: Shortness of breath. Now extubated. Portable view of the chest at 0545 hours is provided and compared to a previous study dated February 23, 2019. FINDINGS: The patient is now extubated. A right IJ line remains in place. The distal tip is in the superior vena cava. The cardiac silhouette and mediastinum are otherwise unremarkable. There are no significant infiltrates. IMPRESSION: 1. No significant infiltrates. Report Dictated on --- Final --- Dictated: 02/26/2019 7:25 am Dictating Physician: MD PARADA JEFFREY Signed Date and Time: 02/26/2019 7:26 am Signed by: MD PARADA JEFFREY Transcribed Date and Time: 02/26/2019 7:25 [facility] Work Phone: [facility], [facility] In[facility] Rad[facility] Results From [facility] - 02/26/2019 7:27 AM EST Patient Name: MARY CLAUDIO ---Diagnostic Radiology--- Exam Date/Time 02/26/2019 05:56:03 EST Exam CR Chest Portable Ordering Physician DO QUILES PAUL Accession Number [id number] CPT4 Codes 78413 () Reason For Exam PNA Report CLINICAL INFORMATION: Shortness of breath. Now extubated. Portable view of the chest at 0545 hours is provided and compared to a previous study dated February 23, 2019. FINDINGS: The patient is now extubated. A right IJ line remains in place. The distal tip is in the superior vena cava. The cardiac silhouette and mediastinum are otherwise unremarkable. There are no significant infiltrates. IMPRESSION: 1. No significant infiltrates. Report Dictated on --- Final --- Dictated: 02/26/2019 7:25 am Dictating Physician: MD PARADA JEFFREY Signed Date and Time: 02/26/2019 7:26 am Signed by: MD PARADA JEFFREY Transcribed Date and Time: 02/26/2019 7:25 [facility] Work Phone: Basic Metabolic Panel w/ Ref mavis to MGOrdered By: Kobi Quiles on 02-25-2019 Anion gap [Moles/Vol] 6 mmol/L [facility] Work Phone: Calcium [Mass/Vol] 8.5 mg/dL 8.4 - 10. 4 mg/dL [facility] Work Phone: Chloride [Moles/Vol] 108 mmol/L High 98 - 10 7 mmol/L [facility] Work Phone: CO2 [Moles/Vol] 23 mmol/L 22 - 30 mmol/L [facility] Work Phone: Creatinine [Mass/Vol] 0.85 mg/dL 0.52 - 1.25 mg/dL [employer] Work Phone: [phone] EGFR IF NonAfrican Peruvian >60.0 >60 mL/min [employer] Work Phone: [phone] Comment on above: Source- MDRD equatio n with creatinine calibration to IDMS(NKDEP) eGFR not recommended for drug dose adjustment GFR/1.73 sq M.predicted among blacks MDRD (S/P/Bld) [Vol rate/Area] mL/min/{1.73_m2} >60 mL/min [facility] Work Phone: [phone] Glucose [Mass/Vol] 87 mg/dL 70 - 100 mg/dL [employer] Work Phone: [phone] Interpretation and review of laboratory results Abnormal [employer] Work Phone: [phone] Potassium [Moles/Vol] 3.4 mmol/L Low 3.5 - 5.1 mmol/L [employer] Work Phone: [phone] Sodium [Moles/Vol] 138 mmol/L 135 - 145 mmol/L [employer] Work Phone: [phone] Urea nitrogen [Mass/Vol] 5 mg/dL Low 7 - 20 mg/dL [employer] Work Phone: [phone] CBC auto differentialOrdered By: Kobi Quiles on 02-25-2019 Absolute Baso # 0.1 10*3/uL 0 - 0.2 10*3/uL [employer] Work Phone: [phone] Absolute Neut # 7.6 10*3/uL High 1.8 - 7 10*3/uL [employer] Work Phone: [phone] Basophils/100 WBC (Bld) 0.9 % 0 - 2 % [employer] Work Phone: [phone] Eosinophils (Bld) [#/Vol] 0.6 10*3/uL High 0 - 0.5 10*3/uL [employer] Work Phone: Eosinophils/100 WBC (Bld) 5.6 % 1 - 6 % [employer] Work Phone: [phone] Erythrocyte distribution width (RBC) [Ratio] 17.7 % High 11.5 - 14.5 % [employer] Work Phone: [phone] Granulocytes/100 WBC (Bld) 72.1 % 40 - 80 % [facility] Work Phone: 1 Hematocrit (Bld) [Volume fraction] 33.5 % Low 35 - 47 % [employer] Work Phone: 1 Hemoglobin (Bld) [Mass/Vol] 10.5 g/dL Low 11.7 - 16 g/dL [employer] Work Phone: 1 Interpretation and review of laboratory results Abnormal [employer] Work Phone: 1 Lymphocytes (Bld) [#/Vol] 1.4 10*3/uL 1 - 4.3 10*3/uL [employer] Work Phone: 1 Lymphocytes/100 WBC (Bld) 13.8 % Low 20 - 40 % [employer] Work Phone: 1 MCH (RBC) [Entitic mass] 22.7 pg Low 26 - 34 pg [employer] Work Phone: MCHC 31.2 % Low 32 - 36 % [employer] Work Phone: 1 MCV (RBC) [Entitic vol] 72.7 fL Low 79 - 98 fL [employer] Work Phone: 1 Monocytes (Bld) [#/Vol] 0.8 10*3/uL 0 - 0.8 10*3/uL [employer] Work Phone: 1 22 Monocytes/100 WBC (Bld) 7.6 % 2 - 10 % [employer] Work Phone: Platelet mean volume (Bld) [Entitic vol] 9.4 fL 7.4 - 10.4 fL [employer] Work Phone: 1 22 Platelets (Bld) [#/Vol] 242 10*3/uL 140 - 440 10*3/uL [facility] Work Phone: 22 RBC (Bld) [#/Vol] 4.60 10*6/uL 3.8 - 5.2 10*6/uL [employer] Work Phone: 1 22 WBC (Bld) [#/Vol] 10.5 10*3/uL 3.6 - 10.7 10*3/uL [employer] Work Phone: 1 Test Performed by [employer], [place] [address] [facility] Work Phone: MagnesiumOrdered By: Kobi pavon on 02-25-2019 Magnesium [Mass/Vol] 2.0 mg/dL 1.6 - 2 .3 mg/dL [facility] Work Phone: 1 No Panel InformationOrdered By: Kobi Quiles on 02-25-2019 Test Performed by [employer], [facility] [place] [address] [employer] Work Phone: PhosphorusOrdered By: Kobi wiggins on 02-25-2019 Phosphate [Mass/Vol] 3.0 mg/dL 2.5 - 4 .5 mg/dL [facility] Work Phone: 1 Basic Metabolic Panel w/ Ref mavis to MGOrdered By: Kobi Quiles on 02-24-2019 Anion gap [Moles/Vol] 5 mmol/L [facility] Work Phone: Calcium [Mass/Vol] 8.7 mg/dL 8.4 - 10. 4 mg/dL [facility] Work Phone: Chloride [Moles/Vol] 109 mmol/L High 98 - 10 7 mmol/L [facility] Work Phone: CO2 [Moles/Vol] 25 mmol/L 22 - 30 mmol/L [facility] Work Phone: Creatinine [Mass/Vol] 0.9 mg/dL 0.52 - 1.25 mg/dL [facility] Work Phone: EGFR IF NonAfrican Peruvian >60.0 >60 mL/min [facility] Work Phone: Comment on above: Source- MDRD equatio n with creatinine calibration to IDMS(NKDEP) eGFR not recommended for drug dose adjustment GFR/1.73 sq M.predicted among blacks MDRD (S/P/Bld) [Vol rate/Area] mL/min/{1.73_m2} >60 mL/min [facility] Work Phone: [phone] Glucose [Mass/Vol] 88 mg/dL 70 - 100 mg/dL [employer] Work Phone: [phone] Potassium [Moles/Vol] 3.7 mmol/L 3.5 - 5.1 mmol/L [employer] Work Phone: [phone] Sodium [Moles/Vol] 139 mmol/L 135 - 145 mmol/L [employer] Work Phone: [phone] Urea nitrogen [Mass/Vol] 7 mg/dL 7 - 20 mg/dL [employer] Work Phone: [phone] CBC auto differentialOrdered By: Kobi Quiles on 02-24-2019 Absolute Baso # 0.1 10*3/uL 0 - 0.2 10*3/uL [employer] Work Phone: [phone] Absolute Neut # 7.6 10*3/uL High 1.8 - 7 10*3/uL [employer] Work Phone: [phone] Basophils/100 WBC (Bld) 0.6 % 0 - 2 % [employer] Work Phone: Eosinophils (Bld) [#/Vol] 0.4 10*3/uL 0 - 0.5 10*3/uL [employer] Work Phone: [phone] Eosinophils/100 WBC (Bld) 3.5 % 1 - 6 % [employer] Work Phone: [phone] Erythrocyte distribution width (RBC) [Ratio] 17.6 % High 11.5 - 14.5 % [employer] Work Phone: [phone] Granulocytes/100 WBC (Bld) 70.5 % 40 - 80 % [employer] Work Phone: Hematocrit (Bld) [Volume fraction] 34.4 % Low 35 - 47 % [employer] Work Phone: [phone] Hemoglobin (Bld) [Mass/Vol] 10.8 g/dL Low 11.7 - 16 g/dL [employer] Work Phone: [phone] Interpretation and review of laboratory results Abnormal [employer] Work Phone: [phone] Lymphocytes (Bld) [#/Vol] 1.9 10*3/uL 1 - 4.3 10*3/uL [employer] Work Phone: [phone] Lymphocytes/100 WBC (Bld) 17.3 % Low 20 - 40 % [facility] Work Phone: 1() MCH (RBC) [Entitic mass] 22.8 pg Low 26 - 34 pg [facility] Work Phone: 1() MCHC 31.5 % Low 32 - 36 % [facility] Work Phone: 1() MCV (RBC) [Entitic vol] 72.4 fL Low 79 - 98 fL [facility] Work Phone: 1() Monocytes (Bld) [#/Vol] 0.9 10*3/uL High 0 - 0.8 10*3/uL [facility] Work Phone: 1() Monocytes/100 WBC (Bld) 8.1 % 2 - 10 % [facility] Work Phone: 1( Platelet mean volume (Bld) [Entitic vol] 9.4 fL 7.4 - 10.4 fL [facility] Work Phone: () Platelets (Bld) [#/Vol] 255 10*3/uL 140 - 440 10*3/uL [facility] Work Phone: 1( RBC (Bld) [#/Vol] 4.75 10*6/uL 3.8 - 5.2 10*6/uL [facility] Work Phone: 1() WBC (Bld) [#/Vol] 10.8 10*3/uL High 3.6 - 10.7 10*3/uL [facility] Work Phone: Test Performed by [employer], [facility] [place] [address] [facility] Work Phone: Gram StainOrdered By: Rex Jones on 02-24-2019 Gram Stain Result Many polymorphonucle ar cells/lpf. Many gram positive cocci. Rare gram negative diplococci. [employer] Work Phone: Test Performed by [employer] [employer] [facility] [place] [address] Specimen Source Comment:Sputum [facility] Work Phone: Lactic Acid, PlasmaOrdered B y: Haroon Jones on 02-24-2019 Interpretation and review of laboratory results Abnormal [facility] Work Phone: 1 Lactate [Moles/Vol] 0.6 mmol/L Low 0.7 - 2 mmol/L [facility] Work Phone: 1 Test Performed by [facility], [address] [place] [address] [facility] Work Phone: 1 Interpretation and review of laboratory results Abnormal [facility] Work Phone: 1 Lactate [Moles/Vol] 0.6 mmol/L Low 0.7 - 2 mmol/L [facility] Work Phone: 1 Test Performed by [facility], [address] [place] [address] [facility] Work Phone: 1 Legionella antigen, urineOrd ered By: Haroon Jones on 02-24-2019 LEGIONELLA ANTIGEN Not detected [facility] Work Phone: 1 MagnesiumOrdered By: Kobi pavon on 02-24-2019 Magnesium [Mass/Vol] 2.3 mg/dL 1.6 - 2 .3 mg/dL [facility] Work Phone: 1 No Panel InformationOrdered By: Haroon Jones on 02-24-2019 Test Performed by [facility], [address] [place] [id number] Specimen Source Comment:Urine voided [facility] Work Phone: 1 No Panel InformationOrdered By: Williams Apple on 02-24-2019 Interpretation and review of laboratory results Abnormal [facility] Work Phone: 1 Test Performed by [facility], [facility] [place] [address] [facility] Work Phone: 1 PhosphorusOrdered By: Kobi wiggins on 02-24-2019 Phosphate [Mass/Vol] 3.8 mg/dL 2.5 - 4 .5 mg/dL [facility] Work Phone: ProcalcitoninOrdered By: Brittany Quiles on 02-24-2019 Interpretation See Below [facility] Work Phone: 1 Comment on above: PCT <0.50 = Low risk of severe sepsis and/or septic shock. PCT >2.00 = High risk of severe sepsis and/or septic shock. Interpretation and review of laboratory results Abnormal [facility] Work Phone: [phone] Procalcitonin 0.14 ng/mL Abnormal <0.10 [facility] Work Phone: 1 Test Performed by [facility], [address] [place] [address] [facility] Work Phone: Respiratory Virus PCR PanelO rdered By: Haroon Jones on 02-24-2019 Respiratory Panel PCR NEGATIVE: No targe ts were detected by the [employer] Upper Respiratory Pathogens PCR Panel. _ The [employer] Upper Respiratory Pathogens PCR Panel can detect the following targets: Adenovirus, Coronavirus 229E, Coronavirus HKU1, Coronavirus NL63, Coronavirus OC43, Human Metapneumovirus, Human Rhinovirus/Enterovirus, Influenza A, Influenza B, Parainfluenza Virus 1, Parainfluenza Virus 2, Parainfluenza Virus 3, Parainfluenza Virus 4, Respiratory Syncytial Virus, Bordetella pertussis, Bordetella parapertussis, Chlamydia pneumoniae, Mycoplasma pneumoniae [facility] Work Phone: [phone] Test Performed by [facility], [address] [place] [address] Specimen Source Comment:Nasopharyngeal [facility] Work Phone: Strep Pneumoniae AntigenOrde red By: Haroon Jnoes on 02-24-2019 STREP PNEUMONIAE ANTIGEN, URINE Not detected [facility] Work Phone: 1 TriglyceridesOrdered By: Richard Apple on 02-24-2019 Triglyceride [Mass/Vol] 156 mg/dL Abnormal <150 [facility] Work Phone: [phone] XR ABDOMEN (KUB) (SINGLE AP VIEW)Ordered By: Kobi Quiles on 02-24-2019 Patient Name: MARY WOMACK ---Diagnostic Radiology--- Exam Date/Time 02/24/2019 15:47:17 EST Exam CR Abdomen AP Ordering Physician DO QUILES PAUL Accession Number [id number] CPT4 Codes 54114 () Reason For Exam tube replacement Report HISTORY: Tube replacement A supine plain film of the abdomen was obtained. Comparisons available: 06/19/2018 Findings: A portion of the right abdomen has been excluded. Enteric tube tip passes below diaphragm, tip in the gastric fundus. There is gaseous distention of both small and large bowel loops. No air-fluid levels are identified. No gross free air. Lung bases are clear. IMPRESSION: Enteric tube as above. Gaseous distention of large and small bowel loops suggests ileus. Report Dictated on --- Final --- Dictated: 02/24/2019 4:16 pm Dictating Physician: MD GLASER KEVIN Signed Date and Time: 02/24/2019 4:17 pm Signed by: MD GLASER KEVIN Transcribed Date and Time: 02/24/2019 4:16 [facility] Work Phone: [facility], [facility] Incoming Radiology Results From [facility] - 02/24/2019 4:18 PM EST Patient Name: MARY CLAUDIO ---Diagnostic Radiology--- Exam Date/Time 02/24/2019 15:47:17 EST Exam CR Abdomen AP Ordering Physician DO QUILES PAUL Accession Number [id number] CPT4 Codes 82674 () Reason For Exam tube replacement Report HISTORY: Tube replacement A supine plain film of the abdomen was obtained. Comparisons available: 06/19/2018 Findings: A portion of the right abdomen has been excluded. Enteric tube tip passes below diaphragm, tip in the gastric fundus. There is gaseous distention of both small and large bowel loops. No air-fluid levels are identified. No gross free air. Lung bases are clear. IMPRESSION: Enteric tube as above. Gaseous distention of large and small bowel loops suggests ileus. Report Dictated on --- Final --- Dictated: 02/24/2019 4:16 pm Dictating Physician: MD GLASER KEVIN Signed Date and Time: 02/24/2019 4:17 pm Signed by: MD GLASER KEVIN Transcribed Date and Time: 02/24/2019 4:16 [facility] Work Phone: XR ABDOMEN (KUB) (SINGLE AP VIEW)Ordered By: Haroon Jones on 02-24-2019 Patient Name: MARY WOMACK ---Diagnostic Radiology--- Exam Date/Time 02/24/2019 06:29:13 EST Exam CR Abdomen AP Ordering Physician ALISON JONES MD, HAROON Warren Accession Number [id number] CPT4 Codes 79138 () Reason For Exam NG - Dobhoff placement confirmation Report HISTORY: Dobbhoff tube placement confirmation A supine plain film of the abdomen was obtained. Comparisons available: 06/19/2018 Findings: A portion of the right abdomen has been excluded. A Dobbhoff tube is identified. The tip and side port are below the level of the diaphragm and project over the gastric bubble. There is gaseous distention of both small and large bowel loops. No air-fluid levels are identified. No gross free air. Lung bases are clear. IMPRESSION: Dobbhoff tube as above. Gaseous distention of large and small bowel loops suggests ileus. Report Dictated on --- Final --- Dictated: 02/24/2019 7:02 am Dictating Physician: MD FLOOD TOM A Signed Date and Time: 02/24/2019 7:04 am Signed by: MD FLOOD TOM A Transcribed Date and Time: 02/24/2019 7:02 [facility] Work Phone: [facility], [facility] Incoming Radiology Results From [facility] - 02/24/2019 7:05 AM EST Patient Name: MARY CLAUDIO ---Diagnostic Radiology--- Exam Date/Time 02/24/2019 06:29:13 EST Exam CR Abdomen AP Ordering Physician ALISON JONES MD, HAROON Warren Accession Number [id number] CPT4 Codes 72637 () Reason For Exam NG - Dobhoff placement confirmation Report HISTORY: Dobbhoff tube placement confirmation A supine plain film of the abdomen was obtained. Comparisons available: 06/19/2018 Findings: A portion of the right abdomen has been excluded. A Dobbhoff tube is identified. The tip and side port are below the level of the diaphragm and project over the gastric bubble. There is gaseous distention of both small and large bowel loops. No air-fluid levels are identified. No gross free air. Lung bases are clear. IMPRESSION: Dobbhoff tube as above. Gaseous distention of large and small bowel loops suggests ileus. Report Dictated on --- Final --- Dictated: 02/24/2019 7:02 am Dictating Physician: MD FLOOD TOM A Signed Date and Time: 02/24/2019 7:04 am Signed by: MD FLOOD TOM A Transcribed Date and Time: 02/24/2019 7:02 [facility] Work Phone: [phone] AmmoniaOrdered By: Williams Apple on 02-23-2019 Ammonia (P) [Mass/Vol] ug/dL 9 - 30 umol/L [facility] Work Phone: [phone] Test Performed by [address] [address] [facility] Work Phone: [phone] Metabolic Panel w/ Ref mavis to MGOrdered By: Kobi Quiles on 02-23-2019 Anion gap [Moles/Vol] 8 mmol/L [facility] Work Phone: [phone] Calcium [Mass/Vol] 8.6 mg/dL 8.4 - 10. 4 mg/dL [facility] Work Phone: [phone] Chloride [Moles/Vol] 109 mmol/L High 98 - 10 7 mmol/L [facility] Work Phone: [phone] CO2 [Moles/Vol] 23 mmol/L 22 - 30 mmol/L [facility] Work Phone: [phone] Creatinine [Mass/Vol] 0.77 mg/dL 0.52 - 1.25 mg/dL [facility] Work Phone: [phone] EGFR IF NonAfrican Peruvian >60.0 >60 mL/min [facility] Work Phone: [phone] Comment on above: Source- MDRD equatio n with creatinine calibration to IDMS(NKDEP) eGFR not recommended for drug dose adjustment GFR/1.73 sq M.predicted among blacks MDRD (S/P/Bld) [Vol rate/Area] mL/min/{1.73_m2} >60 mL/min [facility] Work Phone: Glucose [Mass/Vol] 117 mg/dL High 70 - 100 mg/dL [facility] Work Phone: [phone] Interpretation and review of laboratory results Abnormal [facility] Work Phone: [phone] Potassium [Moles/Vol] 3.7 mmol/L 3.5 - 5.1 mmol/L [facility] Work Phone: [phone] Sodium [Moles/Vol] 140 mmol/L 135 - 145 mmol/L [facility] Work Phone: [phone] Urea nitrogen [Mass/Vol] 5 mg/dL Low 7 - 20 mg/dL [facility] Work Phone: [phone] Blood Gas, ArterialOrdered B y: Terrell Ghada on 02-23-2019 Base Excess, Arterial -2.8 mmol/L -3 - 3 mmol/L [facility] Work Phone: [phone] CO2 [Moles/Vol] 22.6 mmol/L Low 23 - 27 mmol/L [facility] Work Phone: [phone] FIO2 Arterial 0.30 [facility] Work Phone: HCO3 (Bld) [Moles/Vol] 21.5 mmol/L 21 - 25 mmol/L [facility] Work Phone: [phone] Hemoglobin (Bld) [Mass/Vol] 11.8 g/dL ScreenOnly [facility] Work Phone: [phone] Interpretation and review of laboratory results Abnormal [facility] Work Phone: [phone] Oxygen saturation in Blood 98.6 % 95 - 100 % [facility] Work Phone: [phone] pCO2, Arterial 35.9 mm[Hg] 35 - 45 mm[Hg] [facility] Work Phone: [phone] pH, Arterial 7.396 [facility] Work Phone: [phone] pO2, Arterial 119.2 mm[Hg] High 80 - 100 mm[Hg] [facility] Work Phone: [phone] Test Performed by [facility], [address] [place] [address] [facility] Work Phone: [phone] Blood gas, arterialOrdered B y: Franky Hanson on 02-23-2019 Base Excess, Arterial -2.4 mmol/L -3 - 3 mmol/L [facility] Work Phone: [phone] CO2 [Moles/Vol] 23.3 mmol/L 23 - 27 mmol/L [facility] Work Phone: [phone] FIO2 Arterial No data [facility] Work Phone: [phone] HCO3 (Bld) [Moles/Vol] 22.1 mmol/L 21 - 25 mmol/L [facility] Work Phone: [phone] Hemoglobin (Bld) [Mass/Vol] 11.7 g/dL ScreenOnly [facility] Work Phone: [phone] Interpretation and review of laboratory results Abnormal [facility] Work Phone: [phone] Oxygen saturation in Blood 97.2 % 95 - 100 % [facility] Work Phone: [phone] pCO2, Arterial 37.4 mm[Hg] 35 - 45 mm[Hg] [facility] Work Phone: [phone] pH, Arterial 7.390 [facility] Work Phone: [phone] pO2, Arterial 101.2 mm[Hg] High 80 - 100 mm[Hg] [facility] Work Phone: [phone] Test Performed by [facility], [address] [place] [address] [employer] Work Phone: [phone] CBC auto differentialOrdered By: Kobi uQiles on 02-23-2019 Absolute Baso # 0.0 10*3/uL 0 - 0.2 10*3/uL [employer] Work Phone: [phone] Absolute Neut # 7.9 10*3/uL High 1.8 - 7 10*3/uL [facility] Work Phone: [phone] Basophils/100 WBC (Bld) 0.3 % 0 - 2 % [facility] Work Phone: [phone] Eosinophils (Bld) [#/Vol] 0.0 10*3/uL 0 - 0.5 10*3/uL [employer] Work Phone: [phone] Eosinophils/100 WBC (Bld) 0.3 % Low 1 - 6 % [employer] Work Phone: [phone] Erythrocyte distribution width (RBC) [Ratio] 17.6 % High 11.5 - 14.5 % [employer] Work Phone: [phone] Granulocytes/100 WBC (Bld) 81.6 % High 40 - 80 % [employer] Work Phone: Hematocrit (Bld) [Volume fraction] 34.7 % Low 35 - 47 % [employer] Work Phone: 1 Hemoglobin (Bld) [Mass/Vol] 10.9 g/dL Low 11.7 - 16 g/dL [employer] Work Phone: [phone] Interpretation and review of laboratory results Abnormal [employer] Work Phone: 1 Lymphocytes (Bld) [#/Vol] 1.0 10*3/uL 1 - 4.3 10*3/uL [employer] Work Phone: 1 Lymphocytes/100 WBC (Bld) 10.7 % Low 20 - 40 % [employer] Work Phone: MCH (RBC) [Entitic mass] 22.9 pg Low 26 - 34 pg [employer] Work Phone: ) MCHC 31.4 % Low 32 - 36 % [employer] Work Phone: 1 MCV (RBC) [Entitic vol] 73.1 fL Low 79 - 98 fL [employer] Work Phone: Monocytes (Bld) [#/Vol] 0.7 10*3/uL 0 - 0.8 10*3/uL [employer] Work Phone: 1) Monocytes/100 WBC (Bld) 7.1 % 2 - 10 % [employer] Work Phone: Platelet mean volume (Bld) [Entitic vol] 9.3 fL 7.4 - 10.4 fL [employer] Work Phone: 1) Platelets (Bld) [#/Vol] 270 10*3/uL 140 - 440 10*3/uL [employer] Work Phone: RBC (Bld) [#/Vol] 4.74 10*6/uL 3.8 - 5.2 10*6/uL [employer] Work Phone: 22 WBC (Bld) [#/Vol] 9.7 10*3/uL 3.6 - 10.7 10*3/uL [facility] Work Phone: Test Performed by [facility], [address] [place] [address], [place] [address] [facility] Work Phone: CKOrdered By: Terrellrandal Urrutia on 02-23-2019 CK [Catalytic activity/Vol] 113 U/L 30 - 170 U/L [facility] Work Phone: Cannabinoid, Urine, Screenin g, Critical CareOrdered By: Terrell Urrutia on 02-23-2019 THC Negative [facility] Work Phone: Comment on above: Threshold= 50 ng/mL EEG REPORTOrdered By: Zara Estrada on 02-23-2019 Zara Estrada MD - 02/23/2019 4:31 PM EST PATIENT: MARY CLAUDIO DATE OF SERVICE: 02/23/2019 ORDER NUMBER: DATE OF : 1985 AGE: 33 ADMITTING PHYSICIAN: Franky Hanson MD ATTENDING PHYSICIAN: Franky Hanson MD DICTATING PHYSICIAN: Zara Estrada MD EEG REFERRING PHYSICIAN: Dr. Hanson TEST #: [id number] Test - EEG: History: A 33-year-old woman being evaluated for possible status epilepticus. Description: DICTATION ENDS ABRUPTLY [employer] Job ID: [id number] DOD:02/23/2019 03:15 P DWT/dsk DOT:02/23/2019 04:31 P Job Number: [id number] Document Number: [id number] ###### cc: Franky Hanson MD [address] [place] [address] [address] [facility] [address] [facility] Work Phone: Zara Estrada MD - 02/23/2019 4:16 PM EST PATIENT: MARY CLAUDIO DATE OF SERVICE: 02/23/2019 ORDER NUMBER: DATE OF : 1985 AGE: 33 ADMITTING PHYSICIAN: Franky Hanson MD ATTENDING PHYSICIAN: Franky Hanson MD DICTATING PHYSICIAN: Zara Estrada MD EEG REFERRING PHYSICIAN: TEST #: ADDENDUM Test - EEG: Description: A 21-channel digital EEG is reviewed. Initially, the predominant background is a low amplitude mixture of alpha and beta frequencies without a predominant frequency. Frequently throughout the recording, the background of the right frontocentral region becomes much more sharply configured than is ever seen contralaterally. There is some spread of this activity into the right temporal region. A few sharp transients are seen throughout the recording in the left anterior temporal region. Photic stimulation without significant photic driving. No significant amount of drowsiness is recorded. No sleep transients are seen. Interpretation: Abnormal EEG due to the presence of persistent sharply configured activity from the right frontocentral region, and independently, occasional epileptiform transients from the left anterior temporal lobe. Would correlate with imaging to rule out underlying abnormalities in these areas. This recording does suggest a significant tendency toward seizure, but no seizure is recorded. Please correlate clinically. [facility] Job ID: [id number] DOD:02/23/2019 03:23 P DWT/dsk DOT:02/23/2019 04:16 P Job Number: [id number] Document Number: [id number] ###### cc: Franky Hanson MD [address] [place] [address] [address] [place] [id number] [facility] Work Phone: [phone] FerritinOrdered By: Terrell vargas on 02-23-2019 Ferritin [Mass/Vol] 6 ng/mL Low 8 - 252 ng/mL [facility] Work Phone: [phone] Interpretation and review of laboratory results Abnormal [facility] Work Phone: [phone] Test Performed by [facility], [address] [place] [address] [facility] Work Phone: [phone] Hemoglobin [id number] By: Kelly Urrutia on 02-23-2019 HbA1c (Bld) [Mass fraction] 5.2 % 4 - 5.7 % [facility] Work Phone: [phone] Comment on above: --HgbA1C levels may not be accurate in patients who have renal disease, received recent blood transfusions, are anemic, or who have dyshemoglobinemia. Magnesium [Mass/Vol] 103 mg/dL [facility] Work Phone: [phone] Test Performed by [employer] [facility], [facility] [place] [address] [facility] Work Phone: [phone] Hepatic Function PanelOrdere d By: Williams Apple on 02-23-2019 Albumin [Mass/Vol] 3.7 g/dL 3.5 - 5 g/dL [facility] Work Phone: 1 ALP [Catalytic activity/Vol] 117 U/L 38 - 126 U/L [facility] Work Phone: ALT [Catalytic activity/Vol] 26 U/L 13 - 69 U/L [facility] Work Phone: AST [Catalytic activity/Vol] 23 U/L 15 - 46 U/L [facility] Work Phone: Bilirubin [Mass/Vol] 0.3 mg/dL 0.2 - 1 .3 mg/dL [facility] Work Phone: Bilirubin.indirect [Mass/Vol] 0.0 mg/dL 0 - 0.3 mg/dL [facility] Work Phone: Protein [Mass/Vol] 7.1 g/dL 6.3 - 8.2 g/dL [facility] Work Phone: Test Performed by [employer], [facility] [place] [address] [facility] Work Phone: Iron and TIBCOrdered By: Rodney Urrutia on 02-23-2019 Interpretation and review of laboratory results Abnormal [facility] Work Phone: Iron [Mass/Vol] 32 ug/dL Low 37 - 170 ug/dL [facility] Work Phone: Sat 10 % Low 15 - 50 % [facility] Work Phone: TIBC 327 ug/dL 261 - 497 ug/dL [facility] Work Phone: Test Performed by [employer], [facility] [place] [address] [facility] Work Phone: Lactic Acid, PlasmaOrdered B y: Haroon Jones on 02-23-2019 Interpretation and review of laboratory results Abnormal [facility] Work Phone: [phone] Lactate [Moles/Vol] 0.6 mmol/L Low 0.7 - 2 mmol/L [facility] Work Phone: 1 Test Performed by [facility], [address] [place] [address] [facility] Work Phone: 1 Lactic Acid, PlasmaOrdered B y: Terrell Urrutia on 02-23-2019 Lactate [Moles/Vol] 0.8 mmol/L 0.7 - 2 mmol/L [facility] Work Phone: 1 MagnesiumOrdered By: Kobi pavon on 02-23-2019 Magnesium [Mass/Vol] 2.1 mg/dL 1.6 - 2 .3 mg/dL [facility] Work Phone: 1 No Panel InformationOrdered By: Zoe Mills on 02-23-2019 Test Performed by [facility], [address] [place] [address] [facility] Work Phone: 1 No Panel InformationOrdered By: Kobi Quiles on 02-23-2019 Test Performed by [facility], [address] [place] [address] [facility] Work Phone: 1 Phenytoin Level, TotalOrdere d By: Zoe Mills on 02-23-2019 Interpretation and review of laboratory results Abnormal [facility] Work Phone: 1 Phenytoin Lvl 9.3 ug/mL Low 10 - 20 ug/mL [facility] Work Phone: PhosphorusOrdered By: Kobi wiggins on 02-23-2019 Phosphate [Mass/Vol] 3.4 mg/dL 2.5 - 4 .5 mg/dL [facility] Work Phone: 1 XR CHEST PORTABLEOrdered By: Franky Hanson on 02-23-2019 Patient Name: MARY WOMACK ---Diagnostic Radiology--- Exam Date/Time 02/23/2019 06:33:11 EST Exam CR Chest Portable Ordering Physician FRANKY HANSON Accession Number [id number] CPT4 Codes 23552 () Reason For Exam ETT Placement Report EXAMINATION: Portable Chest, 0556 hours 02/23/2019. COMPARISON: 0447 hours 02/23/2019. REASON FOR STUDY: Endotracheal tube placement. FINDINGS: The cardiac silhouette is enlarged. The aorta is atherosclerotic. The lungs are diminished in volume. Curvilinear opacities are present at the left base. Osseous structures appear intact. Support Devices: Endotracheal tube projects about 5 cm above the sidney. Orogastric tube courses into the abdomen. Right internal jugular catheter projects over the azygos arch, likely in the superior vena cava. CONCLUSION(S): 1. Minimal left basilar subsegmental atelectasis with improvement. 2. Cardiomegaly. 3. Stable position of support devices. Report Dictated on --- Final --- Dictated: 02/23/2019 7:17 am Dictating Physician: MD MACDONALD B NELSON Signed Date and Time: 02/23/2019 7:19 am Signed by: MD MACDONALD B NELSON Transcribed Date and Time: 02/23/2019 7:17 [facility] Work Phone: [facility], [facility] Incoming Radiology Results From [facility] - 02/23/2019 7:20 AM EST Patient Name: MARY CLAUDIO ---Diagnostic Radiology--- Exam Date/Time 02/23/2019 06:33:11 EST Exam CR Chest Portable Ordering Physician FRANKY HANSON Accession Number [id number] CPT4 Codes 62182 () Reason For Exam ETT Placement Report EXAMINATION: Portable Chest, 0556 hours 02/23/2019. COMPARISON: 0447 hours 02/23/2019. REASON FOR STUDY: Endotracheal tube placement. FINDINGS: The cardiac silhouette is enlarged. The aorta is atherosclerotic. The lungs are diminished in volume. Curvilinear opacities are present at the left base. Osseous structures appear intact. Support Devices: Endotracheal tube projects about 5 cm above the sidney. Orogastric tube courses into the abdomen. Right internal jugular catheter projects over the azygos arch, likely in the superior vena cava. CONCLUSION(S): 1. Minimal left basilar subsegmental atelectasis with improvement. 2. Cardiomegaly. 3. Stable position of support devices. Report Dictated on --- Final --- Dictated: 02/23/2019 7:17 am Dictating Physician: MD MACDONALD B NELSON Signed Date and Time: 02/23/2019 7:19 am Signed by: MD MACDONALD B NELSON Transcribed Date and Time: 02/23/2019 7:17 [facility] Work Phone: Patient Name: MARY WOMACK ---Diagnostic Radiology--- Exam Date/Time 02/23/2019 04:57:52 EST Exam CR Chest Portable Ordering Physician FRANKY HANSON Accession Number [id number] CPT4 Codes 98737 () Reason For Exam Central line placement - Right IJ CVC Report PORTABLE CHEST CLINICAL INDICATION: Central line placement COMPARISON: None. TECHNIQUE: Portable AP chest. FINDINGS: Right IJ central venous catheter tip is at the mid SVC. ET tube tip is 2 cm above sidney. NG tube tip extends below the gastric body off lower edge of image. Left lower lobe streaky densities are noted. No pneumothorax or pleural effusion is evident. The cardiac and mediastinal silhouette are normal. No pulmonary vascular congestion is seen. The bony thorax is unremarkable. Right upper quadrant close thickening clips. IMPRESSION: Lines and tubes as above. No pneumothorax. Left basilar subsegmental atelectasis versus infiltrate. Follow-up chest radiograph is suggested until clear. Report Dictated on Workstation: [id number] --- Final --- Dictated: 02/23/2019 5:01 am Dictating Physician: ZARA DE LA ROSA DO, I Signed Date and Time: 02/23/2019 5:03 am Signed by: ZARA DE LA ROSA DO, I Transcribed Date and Time: 02/23/2019 5:01 [facility] Work Phone: [facility], [facility] Incoming Radiology Results From [facility] - 02/23/2019 5:04 AM EST Patient Name: MARY CLAUDIO ---Diagnostic Radiology--- Exam Date/Time 02/23/2019 04:57:52 EST Exam CR Chest Portable Ordering Physician FRANKY HANSON Accession Number [id number] CPT4 Codes 95011 () Reason For Exam Central line placement - Right IJ CVC Report PORTABLE CHEST CLINICAL INDICATION: Central line placement COMPARISON: None. TECHNIQUE: Portable AP chest. FINDINGS: Right IJ central venous catheter tip is at the mid SVC. ET tube tip is 2 cm above sidney. NG tube tip extends below the gastric body off lower edge of image. Left lower lobe streaky densities are noted. No pneumothorax or pleural effusion is evident. The cardiac and mediastinal silhouette are normal. No pulmonary vascular congestion is seen. The bony thorax is unremarkable. Right upper quadrant close thickening clips. IMPRESSION: Lines and tubes as above. No pneumothorax. Left basilar subsegmental atelectasis versus infiltrate. Follow-up chest radiograph is suggested until clear. Report Dictated on Workstation: [id number] --- Final --- Dictated: 02/23/2019 5:01 am Dictating Physician: ZARA DE LA ROSA DO, I Signed Date and Time: 02/23/2019 5:03 am Signed by: ZARA DE LA ROSA DO, I Transcribed Date and Time: 02/23/2019 5:01 [facility] Work Phone: Basic Metabolic Panel w/ Ref mavis to MGon 11-07-2018 Anion gap [Moles/Vol] 9 mmol/L [place], [place] Calcium [Mass/Vol] 8.9 mg/dL 8.4 - 10. 4 mg/dL [place] Chloride [Moles/Vol] 106 mmol/L 98 - 10 7 mmol/L [place] CO2 [Moles/Vol] 23 mmol/L 22 - 30 mmol/L [place] Creatinine [Mass/Vol] 0.78 mg/dL 0.52 - 1.25 mg/dL [place] EGFR IF NonAfrican [place]uvian >60.0 >60 mL/min [place] Comment on above: Source- MDRD equatio n with creatinine calibration to IDMS(NKDEP) eGFR not recommended for drug dose adjustment GFR/1.73 sq M predicted among blacks MDRD (S/P/Bld) [Vol rate/Area] mL/min/{1.73_m2} >60 mL/min [place] Glucose [Mass/Vol] 85 mg/dL 70 - 100 mg/dL [place] Interpretation and review of laboratory results Abnormal [place] Potassium [Moles/Vol] 3.5 mmol/L 3.5 - 5.1 mmol/L [place] Sodium [Moles/Vol] 138 mmol/L 135 - 145 mmol/L [place] Urea nitrogen [Mass/Vol] 6 mg/dL Low 7 - 20 mg/dL [place] CBC auto differentialon 10-28 Absolute Baso # 0.0 10*3/uL 0 - 0.2 10*3/uL [place] Absolute Neut # 6.3 10*3/uL 1.8 - 7 10*3/uL [place] Basophils/100 WBC (Bld) 0.6 % 0 - 2 % [place] Eosinophils (Bld) [#/Vol] 0.2 10*3/uL 0 - 0.5 10*3/uL [place] Eosinophils/100 WBC (Bld) 2.9 % 1 - 6 % [place] Erythrocyte distribution width (RBC) [Ratio] 15.3 % High 11.5 - 14.5 % [place] Granulocytes/100 WBC (Bld) 74.7 % 40 - 80 % [place] Hematocrit (Bld) [Volume fraction] 30.9 % Low 35 - 47 % [place] Hemoglobin (Bld) [Mass/Vol] 10.1 g/dL Low 11.7 - 16 g/dL [place] Interpretation and review of laboratory results Abnormal [place] Lymphocytes (Bld) [#/Vol] 1.1 10*3/uL 1 - 4.3 10*3/uL [place] Lymphocytes/100 WBC (Bld) 13.2 % Low 20 - 40 % [place] MCH (RBC) [Entitic mass] 24.8 pg Low 26 - 34 pg [place] MCHC (RBC) [Mass/Vol] 32.6 % 32 - 36 % [place] MCV (RBC) [Entitic vol] 76.2 fL Low 79 - 98 fL [place] Monocytes (Bld) [#/Vol] 0.7 10*3/uL 0 - 0.8 10*3/uL [place] Monocytes/100 WBC (Bld) 8.6 % 2 - 10 % [place] Platelet mean volume (Bld) [Entitic vol] 9.5 fL 7.4 - 10.4 fL [place] Platelets (Bld) [#/Vol] 230 10*3/uL 140 - 440 10*3/uL [place] RBC (Bld) [#/Vol] 4.06 10*6/uL 3.8 - 5.2 10*6/uL [place] WBC (Bld) [#/Vol] 8.4 10*3/uL 3.6 - 10.7 10*3/uL [place] Test Performed by [id number] [place] [address] EKG 12 [place] 11-07-2018 [facility] Test Date: 2018-11-06 Pat Name: Mary Claudio Department: [facility] Room: [facility] Gender: F 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1985 Requested By: Order Number: [id number] Reading MD: Vinicio Sanders Measurements Intervals [place] Rate: 92 P: 21 [place]: 169 QRS: 31 QRSD: 77 T: 43 QT: 378 QTc: 468 Interpretive Statements Sinus rhythm Electronically Signed On 11-07-2018 15:27:40 EDT by Vinicio Sanders [place], [place] Saul, [facility] Incoming Cardiology Results From [facility] - 11/07/2018 3:28 PM EDT [facility] Test Date: 2018-11-06 Pat Name: Mary Claudio Department: 1A Room: [facility] Gender: F 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1985 Requested By: Order Number: [id number] Reading MD: Vinicio Sanders Measurements Intervals [place] Rate: 92 P: 21 [place]: 169 QRS: 31 QRSD: 77 T: 43 QT: 378 QTc: 468 Interpretive Statements Sinus rhythm Electronically Signed On 11-07-2018 15:27:40 EDT by Vinicio Sanders [place] Magnesiumon 11-07-2018 Magnesium [Mass/Vol] 2.0 mg/dL 1.6 - 2 .3 mg/dL [place] Otheron 11-07-2018 Test Performed by [facility], [address] [place] [address] [place] Phosphoruson 11-07-2018 Phosphate [Mass/Vol] 2.6 mg/dL 2.5 - 4 .5 mg/dL [place] Basic Metabolic Panel w/ Ref mavis to MGon 11-06-2018 Anion gap [Moles/Vol] 7 mmol/L [place] Calcium [Mass/Vol] 8.8 mg/dL 8.4 - 10. 4 mg/dL [place] Chloride [Moles/Vol] 104 mmol/L 98 - 10 7 mmol/L [place] CO2 [Moles/Vol] 27 mmol/L 22 - 30 mmol/L [place] Creatinine [Mass/Vol] 0.79 mg/dL 0.52 - 1.25 mg/dL [place] EGFR IF NonAfrican [place]uvian >60.0 >60 mL/min [place] Comment on above: Source- MDRD equatio n with creatinine calibration to IDMS(NKDEP) eGFR not recommended for drug dose adjustment GFR/1.73 sq M predicted among blacks MDRD (S/P/Bld) [Vol rate/Area] mL/min/{1.73_m2} >60 mL/min [place] Glucose [Mass/Vol] 124 mg/dL High 70 - 100 mg/dL [place] Interpretation and review of laboratory results Abnormal [place] Potassium [Moles/Vol] 4.0 mmol/L 3.5 - 5.1 mmol/L [place] Sodium [Moles/Vol] 137 mmol/L 135 - 145 mmol/L [place] Urea nitrogen [Mass/Vol] 5 mg/dL Low 7 - 20 mg/dL [place] CBC auto differentialon 10-28 Absolute Baso # 0.0 10*3/uL 0 - 0.2 10*3/uL [place] Absolute Neut # 10.1 10*3/uL High 1.8 - 7 10*3/uL [place] Basophils/100 WBC (Bld) 0.3 % 0 - 2 % [place] Eosinophils (Bld) [#/Vol] 0.0 10*3/uL 0 - 0.5 10*3/uL [place] Eosinophils/100 WBC (Bld) 0.0 % Low 1 - 6 % [place] Erythrocyte distribution width (RBC) [Ratio] 15.3 % High 11.5 - 14.5 % [place] Granulocytes/100 WBC (Bld) 84.8 % High 40 - 80 % [place] Hematocrit (Bld) [Volume fraction] 30.7 % Low 35 - 47 % [place] Hemoglobin (Bld) [Mass/Vol] 10.0 g/dL Low 11.7 - 16 g/dL [place] Interpretation and review of laboratory results Abnormal [place] Lymphocytes (Bld) [#/Vol] 1.0 10*3/uL 1 - 4.3 10*3/uL [place] Lymphocytes/100 WBC (Bld) 8.5 % Low 20 - 40 % [place] MCH (RBC) [Entitic mass] 24.6 pg Low 26 - 34 pg [place] MCHC (RBC) [Mass/Vol] 32.4 % 32 - 36 % [place] MCV (RBC) [Entitic vol] 75.9 fL Low 79 - 98 fL [place] Monocytes (Bld) [#/Vol] 0.8 10*3/uL 0 - 0.8 10*3/uL [place] Monocytes/100 WBC (Bld) 6.4 % 2 - 10 % [place] Platelet mean volume (Bld) [Entitic vol] 9.7 fL 7.4 - 10.4 fL [place] Platelets (Bld) [#/Vol] 268 10*3/uL 140 - 440 10*3/uL [place] RBC (Bld) [#/Vol] 4.05 10*6/uL 3.8 - 5.2 10*6/uL [place] WBC (Bld) [#/Vol] 11.9 10*3/uL High 3.6 - 10.7 10*3/uL [place] Test Performed by [facility], [place] [address] [place] EKG 12 Leadon 11-06-2018 [facility] Test Date: 2018-11-05 Pat Name: Mary Claudio Department: 1AT3 Room: [facility] Gender: F 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: [facility] : 1985 Requested By: Order Number: [id number] Reading MD: Steven Fuentes Measurements Intervals [place] Rate: 84 P: 75 [place]: 163 QRS: 75 QRSD: 79 T: 74 QT: 386 QTc: 457 Interpretive Statements Sinus rhythm Diffuse ST elevation consider pericarditis Electronically Signed On 11-06-2018 15:48:39 EDT by Steven [place], [facility] Incoming Cardiology Results From [facility] - 11/06/2018 3:49 PM EDT [facility] Test Date: 2018-11-05 Pat Name: Mary Claudio Department: 1AT3 Room: [facility] Gender: F 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: [facility] : 1985 Requested By: Order Number: [id number] Reading MD: Steven Fuentes Measurements Intervals [place] Rate: 84 P: 75 [place]: 163 QRS: 75 QRSD: 79 T: 74 QT: 386 QTc: 457 Interpretive Statements Sinus rhythm Diffuse ST elevation consider pericarditis Electronically Signed On 11-06-2018 15:48:39 EDT by Steven [place] Magnesiumon 11-06-2018 Magnesium [Mass/Vol] 2.0 mg/dL 1.6 - 2 .3 mg/dL [place] Otheron 11-06-2018 Test Performed by [facility], [place] [address] [place] Phosphoruson 11-06-2018 Phosphate [Mass/Vol] 3.5 mg/dL 2.5 - 4 .5 mg/dL [place] Add On Lab Teston 11-05-2018 Sodium [Moles/Vol] Rejected [place] Test Performed by [facility], [address] [place] [address] [place] Blood Gas, Arterialon 2018 Base Excess, Arterial -0.8 mmol/L -3 - 3 mmol/L [place] HCO3, Arterial 24.1 mmol/L 21 - 25 mmol/L [place] Hemoglobin (Bld) [Mass/Vol] 11.5 g/dL ScreenOnly [place] Interpretation and review of laboratory results Abnormal [place] Oxygen saturation in Blood 99.5 % 95 - 100 % [place] pCO2, Arterial 40.5 mm[Hg] 35 - 45 mm[Hg] [place] pH, Arterial 7.392 [place] pO2, Arterial 250.7 mm[Hg] High 80 - 100 mm[Hg] [place] Sodium [Moles/Vol] 80% [place] TCO2, Arterial 25.3 mmol/L 23 - 27 mmol/L [place] Test Performed by [address] [address] [place] CBC Auto Differentialon Absolute Baso # 0.0 10*3/uL 0 - 0.2 10*3/uL [place] Absolute Neut # 14.5 10*3/uL High 1.8 - 7 10*3/uL [place] Basophils/100 WBC (Bld) 0.2 % 0 - 2 % [place] Eosinophils (Bld) [#/Vol] 0.1 10*3/uL 0 - 0.5 10*3/uL [place] Eosinophils/100 WBC (Bld) 0.3 % Low 1 - 6 % [place] Erythrocyte distribution width (RBC) [Ratio] 15.1 % High 11.5 - 14.5 % [place] Granulocytes/100 WBC (Bld) 88.4 % High 40 - 80 % [place] Hematocrit (Bld) [Volume fraction] 34.6 % Low 35 - 47 % [place] Hemoglobin (Bld) [Mass/Vol] 11.0 g/dL Low 11.7 - 16 g/dL [place] Interpretation and review of laboratory results Abnormal [place] Lymphocytes (Bld) [#/Vol] 0.8 10*3/uL Low 1 - 4.3 10*3/uL [place] Lymphocytes/100 WBC (Bld) 5.1 % Low 20 - 40 % [place] MCH (RBC) [Entitic mass] 24.3 pg Low 26 - 34 pg [place] MCHC (RBC) [Mass/Vol] 31.6 % Low 32 - 36 % [place] MCV (RBC) [Entitic vol] 76.8 fL Low 79 - 98 fL [place] Monocytes (Bld) [#/Vol] 1.0 10*3/uL High 0 - 0.8 10*3/uL [place] Monocytes/100 WBC (Bld) 6.0 % 2 - 10 % [place] Platelet mean volume (Bld) [Entitic vol] 9.7 fL 7.4 - 10.4 fL [place] Platelets (Bld) [#/Vol] 282 10*3/uL 140 - 440 10*3/uL [place] RBC (Bld) [#/Vol] 4.51 10*6/uL 3.8 - 5.2 10*6/uL [place] WBC (Bld) [#/Vol] 16.4 10*3/uL High 3.6 - 10.7 10*3/uL [place] Test Performed by [facility], [address] [place] [address] [place] CT HEAD WO CONTRASTon 2018 Patient Name: MARY WOMACK Naresh ---CT--- Exam Date/Time 11/05/2018 18:36:[address] Head or Brain w/o Contrast Ordering Physician MD BENÍTEZ MATTHEW Accession Number [id number] CPT4 Codes 71478 () Reason For Exam seizures Report HEAD CT WITHOUT IV CONTRAST History: Seizures Comparison: 06/18/2018 Technique: Axial and multiplanar sagittal and coronal reconstruction CT images obtained from the base to the vertex of the brain without IV contrast enhancement Findings: There is mild parenchymal volume loss with prominent cortical sulci and fissures, more pronounced on the left than the right, not significantly changed from the prior exam. The ventricles are normal in size for age. There is focal hypodensity suggesting prominent CSF space versus small remote lacunar infarct along the left external capsule, unchanged. There is no intracranial hemorrhage, midline shift, or other mass effect in the brain. The exam is limited without contrast enhancement. Paranasal sinuses are not completely visualized. There is mild right maxillary sinus mucosal thickening. The bilateral mastoid air cells are clear. IMPRESSION: Mild parenchymal volume loss more on the left. Prominent CSF space versus tiny remote left external capsule lacunar infarct. No evidence of acute intracranial process. Report Dictated on --- Final --- Dictated: 11/05/2018 7:03 pm Dictating Physician: MD MARCUS AHMAD Signed Date and Time: 11/05/2018 7:10 pm Signed by: MD MARCUS AHMAD Transcribed Date and Time: 11/05/2018 7:03 [facility] [place], [place], [place] Incoming Radiology Results From [facility] - 11/05/2018 7:11 PM EDT Patient Name: MARY CLAUDIO ---CT--- Exam Date/Time 11/05/2018 18:36:[address] Head or Brain w/o Contrast Ordering Physician MD BENÍTEZ MATTHEW Accession Number [id number] CPT4 Codes 65370 () Reason For Exam seizures Report HEAD CT WITHOUT IV CONTRAST History: Seizures Comparison: 06/18/2018 Technique: Axial and multiplanar sagittal and coronal reconstruction CT images obtained from the base to the vertex of the brain without IV contrast enhancement Findings: There is mild parenchymal volume loss with prominent cortical sulci and fissures, more pronounced on the left than the right, not significantly changed from the prior exam. The ventricles are normal in size for age. There is focal hypodensity suggesting prominent CSF space versus small remote lacunar infarct along the left external capsule, unchanged. There is no intracranial hemorrhage, midline shift, or other mass effect in the brain. The exam is limited without contrast enhancement. Paranasal sinuses are not completely visualized. There is mild right maxillary sinus mucosal thickening. The bilateral mastoid air cells are clear. IMPRESSION: Mild parenchymal volume loss more on the left. Prominent CSF space versus tiny remote left external capsule lacunar infarct. No evidence of acute intracranial process. Report Dictated on --- Final --- Dictated: 11/05/2018 7:03 pm Dictating Physician: MD MARCUS AHMAD Signed Date and Time: 11/05/2018 7:10 pm Signed by: MD MARCUS AHMAD Transcribed Date and Time: 11/05/2018 7:03 [place] Comprehensive Metabolic Pane enoc 11-05-2018 Albumin [Mass/Vol] 3.9 g/dL 3.5 - 5 g/dL [place] ALP [Catalytic activity/Vol] 129 U/L High 38 - 126 U/L [place] ALT [Catalytic activity/Vol] 28 U/L 13 - 69 U/L [place] Anion gap [Moles/Vol] 9 mmol/L [place] AST [Catalytic activity/Vol] 50 U/L High 15 - 46 U/L [place] Bilirubin Ql (U) 0.2 mg/dL 0.2 - 1.3 mg/dL [place] Calcium [Mass/Vol] 8.6 mg/dL 8.4 - 10. 4 mg/dL [place] Chloride [Moles/Vol] 104 mmol/L 98 - 10 7 mmol/L [place] CO2 [Moles/Vol] 25 mmol/L 22 - 30 mmol/L [place] Creatinine [Mass/Vol] 0.93 mg/dL 0.52 - 1.25 mg/dL [place] EGFR IF NonAfrican Peruvian >60.0 >60 mL/min [place] Comment on above: Source- MDRD equatio n with creatinine calibration to IDMS(NKDEP) eGFR not recommended for drug dose adjustment GFR/1.73 sq M predicted among blacks MDRD (S/P/Bld) [Vol rate/Area] mL/min/{1.73_m2} >60 mL/min [place] Glucose [Mass/Vol] 150 mg/dL High 70 - 100 mg/dL [place] Interpretation and review of laboratory results Abnormal [place] Potassium [Moles/Vol] 4.3 mmol/L 3.5 - 5.1 mmol/L [place] Protein [Mass/Vol] 7.3 g/dL 6.3 - 8.2 g/dL [place] Sodium [Moles/Vol] 138 mmol/L 135 - 145 mmol/L [place] Urea nitrogen [Mass/Vol] 6 mg/dL Low 7 - 20 mg/dL [place] EEG REPORTon 11-05-2018 Rosamaria Powell MD - 11/05/2018 6:22 PM EDT PATIENT: MARY CLAUDIO DATE OF SERVICE: 11/05/2018 ORDER NUMBER: DATE OF : 1985 AGE: 33 ADMITTING PHYSICIAN: Lety Benítez MD ATTENDING PHYSICIAN: Lety Benítez MD DICTATING PHYSICIAN: Rosamaria Powell MD EEG REFERRING PHYSICIAN: Dr. Benítez TEST #: Test - Routine Inpatient 20-Minute EEG: Room #: T322. Indications: This EEG has been requested to diagnose seizures. Findings: Posterior dominant rhythm was absent. Background was described under EEG diagnosis. Sleep was present and abnormal with asymmetric spindle-like frequency. The spindles were absent in the right hemisphere. Drowsiness was absent. Photic stimulation was performed with no clear driving response observed. Hyperventilation was deferred. Diagnoses: 1. Rare low-amplitude sharp waves in the right frontal region. 2. Absence of fast frequency over the right hemisphere. 3. Continuous generalized irregular delta activity. 4. Absent posterior dominant rhythm. Impression: This abnormal EEG is consistent with potential epileptogenicity in the right frontal region as well as right hemispheric dysfunction. There was also evidence for severe generalized nonspecific cerebral dysfunction. No clear seizures were recorded. Marian[employer] Job ID: [id number] DOD:11/05/2018 05:45 P RZ/dsk DOT:11/05/2018 06:22 P Job Number: [id number] Document Number: [id number] ###### cc: Lety Benítez MD [facility] [address] [facility] [address] [place] Lactic Acid, Plasmaon 2018 Lactate [Moles/Vol] 1.6 mmol/L 0.7 - 2 mmol/L [place] Otheron 11-05-2018 Interpretation and review of laboratory results Abnormal [place] Test Performed by [id number] [place] [address] Test Performed by [id number] [place] [address] PHENYTOIN LEVEL, TOTALon Phenytoin Lvl 3.5 ug/mL Low 10 - 20 ug/mL [place] Procalcitoninon 11-05-2018 Procalcitonin 0.17 ng/mL Abnormal <0.10 [place] Sodium [Moles/Vol] See Below [place], [place] Comment on above: PCT <0.50 = Low risk of severe sepsis and/or septic shock. PCT >2.00 = High risk of severe sepsis and/or septic shock. XR CHEST PORTABLEon 11-06-19 19 Patient Name: MARY WOMACK ---Diagnostic Radiology--- Exam Date/Time 11/05/2018 15:11:22 EDT Exam CR Chest Portable Ordering Physician [id number] HADDAD Accession Number [id number] CPT4 Codes 80669 () Reason For Exam Respiratory failure Report Clinical indications: Respiratory failure FINDINGS: A single view is submitted and compared with a prior exam from 06/19/2018. NG tube projects off bottom of film. ET tube remains in satisfactory position, approximately 2.5 cm from the sidney. The cardiomediastinal silhouette is stable and unremarkable. Lungs appear clear, with no definitive evidence of infiltrate, effusion, CHF or pneumothorax. Osseous and soft tissue structures are intact. IMPRESSION: Satisfactory position and appearance of life-support appliances, no other evidence of acute process or interval change. Report Dictated on --- Final --- Dictated: 11/05/2018 2:16 pm Dictating Physician: MD EDWARDS RUSSELL Signed Date and Time: 11/05/2018 2:19 pm Signed by: MD EDWARDS RUSSELL Transcribed Date and Time: 11/05/2018 2:16 [facility] [place], [place] Incoming Radiology Results From [facility] - 11/05/2018 3:11 PM EDT Patient Name: MARY CLAUDIO ---Diagnostic Radiology--- Exam Date/Time 11/05/2018 15:11:22 EDT Exam CR Chest Portable Ordering Physician [id number] HADDAD Accession Number [id number] CPT4 Codes 95311 () Reason For Exam Respiratory failure Report Clinical indications: Respiratory failure FINDINGS: A single view is submitted and compared with a prior exam from 06/19/2018. NG tube projects off bottom of film. ET tube remains in satisfactory position, approximately 2.5 cm from the sidney. The cardiomediastinal silhouette is stable and unremarkable. Lungs appear clear, with no definitive evidence of infiltrate, effusion, CHF or pneumothorax. Osseous and soft tissue structures are intact. IMPRESSION: Satisfactory position and appearance of life-support appliances, no other evidence of acute process or interval change. Report Dictated on --- Final --- Dictated: 11/05/2018 2:16 pm Dictating Physician: MD EDWARDS RUSSELL Signed Date and Time: 11/05/2018 2:19 pm Signed by: MD EDWARDS RUSSELL Transcribed Date and Time: 11/05/2018 2:16 [facility] Procalcitoninon 05-24-2017 Procalcitonin <0.10 Normal <0.[address] [facility] Comment on above: Performed By: #### P JEAN CARLOS ####The performing lab is in the report. CR Chest Portableon 05-24-19 18 CR Chest Portable Patient Name: MARY WOMACK Diagnostic Radiology Exam Date/Time 05/23/2017 06:05:53 EDT Exam CR Chest Portable Ordering Physician LILLIAM SAMPSON KELSEY A Accession Number [id number] CPT4 Codes 29889 () Reason For Exam aspiration Report Indication: Aspiration. Comparison: 05/22/2017. Technique: A single frontal view of chest was obtained. Findings: Trachea is midline. The lungs are clear. No pleural effusion or pneumothorax. Pulmonary vasculature is normal. Heart size is normal. There is a right IJ central venous catheter in stable position. Impression: No acute cardiopulmonary findings. Report Dictated on Workstation: [id number] Final Dictating Physician: MD FLOOD TOM A Signed Date and Time: 05/23/2017 6:52 am Signed by: MD FLOOD TOM A Transcribed Date and Time: 05/23/2017 6:53 Normal [facility] Levetiracetamon 05-23-2017 Levetiracetam 12 ug/mL Normal 12-46 [facility] [employer] [facility] Comment on above: Result Comment: INTE RPRETIVE INFORMATION: Keppra (Levetiracetam)Therapeutic Range: 12-46 ug/mLToxic: Not well EstablishedPharmacokinetics of levetiracetam are affected by renal function.Adverse effects may include somnolence, weakness, headache andvomiting.Performed by [facility],[address] [place] [id number] [email or web address], Zhen Alexis MD - Lab. Director Performed By: #### L HEAVEN ####The performing lab is in the report. Levetiracetam 7 ug/mL Low 12-46 [facility] Comment on above: Result Comment: INTE RPRETIVE INFORMATION: Keppra (Levetiracetam)Therapeutic Range: 12-46 ug/mLToxic: Not well EstablishedPharmacokinetics of levetiracetam are affected by renal function.Adverse effects may include somnolence, weakness, headache andvomiting.Performed by [facility] [facility],[address] [facility] [place] [address] [email or web address], Zhen Alexis MD - Lab. Director Performed By: #### L HEAVEN ####The performing lab is in the report. Procalcitoninon 05-23-2017 Procalcitonin <0.10 Normal <0.10 [facility] Comment on above: Performed By: #### P JEAN CARLOS ####The performing lab is in the report. Interpretation See Below Normal [facility] Comment on above: Result Comment: PCT <0.50 = Low risk of severe sepsis and/or septic shock.PCT >2.00 = High risk of severe sepsis and/or septic shock. Performed By: #### P JEAN CARLOS ####The performing lab is in the report. Interpretation See Below Normal [facility] Comment on above: Result Comment: PCT <0.50 = Low risk of severe sepsis and/or septic shock.PCT >2.00 = High risk of severe sepsis and/or septic shock. Performed By: #### P JEAN CARLOS ####The performing lab is in the report. Topiramateon 05-23-2017 Topiramate <1.5 Low 5.0-20.0 [facility] Comment on above: Result Comment: INTE RPRETIVE INFORMATION: TopiramateTherapeutic range: 5.0-20.0 ug/mLToxic: Not well establishedPharmacokinetics varies widely, particularly with co-medications,age, and/or compromised renal function. Adverse effects mayinclude somnolence, fatigue, and dizziness.Performed by [facility] [facility],[address] [place] [address] [email or web address], Zhen Alexis MD - Lab. Director Performed By: #### T OPO ####The performing lab is in the report. CR Chest Portableon 05-23-19 18 CR Chest Portable Patient Name: MARY WOMACK Diagnostic Radiology Exam Date/Time 05/22/2017 06:32:22 EDT Exam CR Chest Portable Ordering Physician PRAKASH VÁSQUEZ Accession Number [id number] CPT4 Codes 23582 () Reason For Exam ARF Report CHEST (Frontal View) History: Respiratory abnormality Comparison: 05/21/2017 Findings: Frontal chest view shows interstitial prominence with without acute infiltrate. Pulmonary congestion have decreased compared to last exam. The heart is borderline in size. Tracheal and enteric tubes, and right-sided IJ catheter are similar to last exam. There is no mediastinal widening, pleural effusion, or other significant interval change. Report Dictated on Final Dictating Physician: MD MARCUS AHMAD Signed Date and Time: 05/22/2017 7:22 am Signed by: MD MARCUS AHMAD Transcribed Date and Time: 05/22/2017 7:23 Normal [facility] Echo Complete w/wo Contrasto n 05-22-2017 Echo Complete w/wo Contrast Patient Name: MARY CLAUDIO Ultrasound Exam Date/Time 05/22/2017 13:25:35 EDT Exam Echo Complete w/wo Contrast Ordering Physician PRAKASH VÁSQUEZ Accession Number [id number] Reason For Exam abnormal ekg Report TRANSTHORACIC ECHOCARDIOGRAM PATIENT: Mary Claudio STUDY DATE: 05/22/2017 : 1985 AGE: 31 HT/WT: 162.6 cm (64 117.9 kg in) (259.4 lb) GENDER: F BP: 123 / 74 LOCATION: [facility] PATIENT Inpatient [facility] STATUS: *ORDERING PHYSICIAN: * Prakash Vásquez *READING PHYSICIAN: * Ascencion Womack MD *CUSTOMER RELATIONSHIP SPECIALIST: * Nichole Guzmán --- INDICATIONS: ECG, Abnormal (R9431). --- CONCLUSIONS SUMMARY: 1. Left ventricle: The cavity size is normal. Wall thickness is normal. There are no regional wall motion abnormalities. E/e' average: 7.6 2. Right ventricle: Systolic function is normal. RV systolic pressure (S, est): 29 mm Hg. 3. Mitral valve: There is no significant regurgitation. 4. Aortic valve: There is no significant regurgitation. 5. Tricuspid valve: There is trivial, less than 1+ regurgitation. 6. Pulmonary arteries: PA peak pressure: 29 mm Hg (S). --- STUDY DATA: Complete transthoracic echocardiogram. Procedure: Image quality was fair. The study was technically limited due to poor acoustic window availability, poor patient compliance, and body habitus. Intravenous imaging enhancement (Definity) was administered. Definity lot #: [id number]. M-mode, complete 2D, complete spectral Doppler, and color flow Doppler images were acquired and archived for permanent storage and are available for subsequent review. Study status: Routine. Patient status: Inpatient. --- FINDINGS LEFT VENTRICLE: The cavity size is normal. Wall thickness is normal. Systolic function is normal. The estimated ejection fraction is 63%. There are no regional wall motion abnormalities. E/e' average: 7.6 RIGHT VENTRICLE: The cavity size is normal. Systolic function is normal. Right ventricular systolic pressure is within the normal range. VENTRICULAR SEPTUM: The septum is normal. There is no evidence of a ventricular septal defect. LEFT ATRIUM: The atrium is normal in size. RIGHT ATRIUM: The atrium is normal in size. ATRIAL SEPTUM: The interatrial septum is normal. Color Doppler shows no evidence of shunt. Doppler shows no evidence of shunt. MITRAL VALVE: Structurally normal valve. Doppler: There is no significant regurgitation. Peak gradient (D): 3 mm Hg. AORTIC VALVE: Structurally normal valve. Trileaflet. Doppler: There is no significant regurgitation. Peak gradient (S): 12 mm Hg. Peak velocity (S): 1.7 m/sec. TRICUSPID VALVE: Structurally normal valve. Doppler: There is trivial, less than 1+ regurgitation. PULMONIC VALVE: Structurally normal valve. Doppler: There is mild, 1+ regurgitation. AORTA: The aorta is normal. Aortic root: The aortic root is normal in size. Ascending aorta: The ascending aorta is normal in size. PULMONARY ARTERY: Main pulmonary artery: Normal. PERICARDIUM: There is no pericardial effusion. SYSTEMIC VEINS: Inferior vena cava: The vessel is normal. The IVC collapses by greater than 50% with inspiration. --- Measurements Left ventricle Value Reference LV ID, ED 4.8 cm 3.9 - 5.3 LV ID, ES 2.8 cm --------- LV PW thickness, ED (H) 1.1 cm 0.6 - 0.9 LV end-systolic volume 21 ml 19 - 49 LV ejection fraction 81 % >=55 LV end-systolic volume/bsa (L) 9 ml/m2 12 - 30 LV end-diastolic volume, 1-p A4C (L) 40 ml 56 - 104 LV end-systolic volume, 1-p A4C (L) 15 ml 19 - 49 LV E/e', lateral 7.6 --------- LV E/e', medial 9.2 --------- LV E/e', average 8.3 --------- Ventricular septum Value Reference IVS thickness, ED (H) 1.0 cm 0.6 - 0.9 LVOT Value Reference LVOT ID, A-P 1.9 cm --------- LVOT mean velocity, S 1.1 m/sec --------- LVOT VTI, S 32.4 cm --------- LVOT peak gradient, S 8 mm Hg --------- Stroke volume (SV), LVOT DP 89 ml --------- Stroke index (SV/bsa), LVOT DP 38 ml/m2 --------- Aortic valve Value Reference Aortic valve peak velocity, S 1.7 m/sec --------- Aortic peak gradient, S 12 mm Hg --------- Aorta Value Reference Aortic root ID, ED (sinus) 2.8 cm <4.1 Left atrium Value Reference LA volume/bsa, ES, 2-p 26 ml/m2 --------- Mitral valve Value Reference Mitral E-wave peak velocity 0.8 m/sec --------- Mitral A-wave peak velocity 1 m/sec --------- Mitral deceleration time 156 ms --------- Mitral peak gradient, D 3 mm Hg --------- Mitral E/A ratio, peak 0.9 --------- Mitral regurg vena contracta 0.28 cm --------- Pulmonary arteries Value Reference PA pressure, S, DP 29 mm Hg --------- Tricuspid valve Value Reference Tricuspid peak RV-RA gradient 26 mm Hg --------- Right atrium Value Reference RA area, ES, A4C 14 cm2 10 - 18 Systemic veins Value Reference Estimated RAP 3 mm Hg --------- Right ventricle Value Reference RV pressure, S, DP 29 mm Hg --------- RV s', lateral, S 0.19 m/sec --------- Legend: (L) and (H) gali values outside specified reference range. Electronically signed by Ascencion Womack MD 05/22/2017 17:09 Final Dictated: 05/22/2017 5:09 pm Dictating Physician: ASCENCION WOMACK Signed Date and Time: 05/22/2017 5:09 pm Signed by: ASCENCION WOMACK Normal [facility] Procalcitoninon 05-22-2017 Procalcitonin 0.25 ng/mL Abnormal <0.10 [facility] [facility] Comment on above: Performed By: #### P JEAN CARLOS ####The performing lab is in the report. CR Chest Portableon 05-22-19 18 CR Chest Portable Patient Name: MARY WOMACK Diagnostic Radiology Exam Date/Time 05/21/2017 13:35:00 EDT Exam CR Chest Portable Ordering Physician PRAKASH VÁSQUEZ Accession Number [id number] CPT4 Codes 22398 () Reason For Exam RT. IJ CVP LINE PLACEMENT Report EXAMINATION: Portable Chest, 1336 hours 05/21/2017. COMPARISON: 0822 hours 05/21/2017. REASON FOR STUDY: Right IJ line placement. FINDINGS: The cardiac silhouette is enlarged. No mediastinal abnormality is observed. The lungs are diminished in volume. Parenchymal markings are poorly defined. A right jugular line projects over the azygos arch. An endotracheal tube is about 3 cm above the sidney. An orogastric tube courses into the abdomen. CONCLUSION(S): 1. Interstitial edema with no significant change. 2. Right jugular catheter in the vicinity of the superior vena cava previously shown devices are not appreciably changed in position. Report Dictated on Final Dictating Physician: MD MACDONALD B NELSON Signed Date and Time: 05/21/2017 2:15 pm Signed by: MD MACDONALD B NELSON Transcribed Date and Time: 05/21/2017 2:16 Normal [facility] CR Chest Portable Patient Name: MARY WOMACK Diagnostic Radiology Exam Date/Time 05/21/2017 08:25:00 EDT Exam CR Chest Portable Ordering Physician MD MCKEON DAVID B Accession Number [id number] CPT4 Codes 19535 () Reason For Exam Postintubation Report PORTABLE CHEST, supine 05/21/2017 8:22 AM Clinical indication: Postintubation Comparison: 05/21/2017 7:02 AM. Endotracheal tube tip projects about 2 cm above the sidney. Oral gastric tube extends below the diaphragm and off the lower margin of the image. The cardiac silhouette and mediastinal contours are unchanged from the earlier exam. Lung volumes are shallow. Asymmetry in the density of the hemithoraces is noted without significant patient rotation. This is probably related to differences in thickness of overlying soft tissues from positioning of the breasts, although dependently layering pleural fluid on the left is possible. IMPRESSION: Interval insertion of endotracheal and oral gastric tubes Asymmetric increased density left hemithorax which may be due to differences in positioning of overlying breast tissue versus dependently layering pleural fluid Report Dictated on Final Dictating Physician: MD LAL DIANE Signed Date and Time: 05/21/2017 8:52 am Signed by: MD LAL DIANE Transcribed Date and Time: 05/21/2017 8:53 Normal [facility] CR Chest Portable Patient Name: MARY WOMACK Diagnostic Radiology Exam Date/Time 05/21/2017 07:04:56 EDT Exam CR Chest Portable Ordering Physician MD MANCINI JEFFREY B Accession Number [id number] CPT4 Codes 50254 () Reason For Exam seizures Report PORTABLE CHEST, supine Clinical indication: seizures Comparison: 09/19/2016. Since the previous study life-support tubes have been removed. There are no tubes noted currently. The cardiac silhouette is unchanged in size and does not appear enlarged. The patient is shallow inspiration. Asymmetry in the density of the chest appears related to patient rotation towards the left. No definite focal consolidative infiltrates are noted. There are no pleural effusions. IMPRESSION: Shallow inspiration with no definite acute abnormality Report Dictated on Final Dictating Physician: MD LAL DIANE Signed Date and Time: 05/21/2017 7:13 am Signed by: MD LAL DIANE Transcribed Date and Time: 05/21/2017 7:14 Normal [facility] CT Head or Brain w/o Contras ton 05-21-2017 CT Head or Brain w/o Contrast Patient Name: MARY CLAUDIO CT Exam Date/Time 05/21/2017 11:28:[address] Head or Brain w/o Contrast Ordering Physician MD MANCINI JEFFREY B Accession Number [id number] CPT4 Codes 31068 () Reason For Exam seizures x 4, h/o epilepsy Report CT HEAD: CLINICAL INDICATION: Seizures, history of epilepsy TECHNIQUE: Transaxial CT sequence performed through the head with 3 mm reconstruction. Sagittal and Coronal reconstruction images included. COMPARISON: Head CT dated 07/27/2016 FINDINGS: There is asymmetric atrophy of the left cerebral hemisphere, stable in appearance compared to prior exams. Ventricles and sulci are otherwise normal in size and configuration. No extra-axial collection. No acute intracranial hemorrhage. No mass effect or midline shift. No CT evidence of an acute large territorial infarction. Mild mucosal thickening of the imaged maxillary sinuses. Remainder of the imaged paranasal sinuses and mastoid air cells are well aerated. Calvarium is unremarkable. IMPRESSION: 1. No acute intracranial hemorrhage or mass effect. 2. Stable asymmetric atrophy of the left cerebral hemisphere. Report Dictated on Final Dictating Physician: MD GLASER KEVIN Signed Date and Time: 05/21/2017 11:51 am Signed by: MD GLASER KEVIN Transcribed Date and Time: 05/21/2017 11:52 Normal [facility] Procalcitoninon 05-21-2017 Interpretation See Below Normal [facility] Comment on above: Result Comment: PCT <0.50 = Low risk of severe sepsis and/or septic shock.PCT >2.00 = High risk of severe sepsis and/or septic shock. Performed By: #### P JEAN CARLOS ####The performing lab is in the report. COVID-19 virus antigen assay SARS-CoV-2 (COVID-19) Ag IA.rapid Ql (Resp) [facility] Work Phone: Culture, urine Bacteria identified Cx Nom (U) Positive [facility] Work Phone: Bacteria identified Cx Nom (U) Escherichia coli [facility] Work Phone: Vital Signs Date Time Vital Sign Value Performing Clinician Facility 04-06-2023 15:36-0500 Body temperature 97.59 [degF] Chery Schmitz MD Work Phone: [facility] 04-06-2023 15:36-0500 Diastolic blood pressure 89 mm[Hg] Chery Schmitz MD Work Phone: [facility] 04-06-2023 15:36-0500 Heart rate 89 /min Chery Schmitz MD Work Phone: [facility] 04-06-2023 15:36-0500 Respiratory rate 18 /min Chery Schmitz MD Work Phone: [facility] 04-06-2023 15:36-0500 SaO2% (BldA) [Mass fraction] 99 % Chery Schmitz MD Work Phone: [facility] 04-06-2023 15:36-0500 Systolic blood pressure 141 mm[Hg] Chery Schmitz MD Work Phone: [facility] 04-02-2023 08:00-0500 Body mass index (BMI) [Ratio] 34.05 kg/m2 Chery Schmitz MD Work Phone: [facility] 04-02-2023 08:00-0500 Body weight 87.18 kg Chery Schmitz MD Work Phone: [facility] 03-31-2023 08:00-0500 Body height 160 cm Chery Schmitz MD Work Phone: [facility] Comment on above: per Care Everywhere 03-29-2023 21:05-0500 SaO2% (BldA) [Mass fraction] 99 % NILA ZZ DO NOT USE [facility] Comment on above: Performed By: #### [id number] ####[facility], [place] [address]Osvjncw Director - Eneida Pearson [id number] for [facility], [place] [address] 03-29-2023 17:48-0500 SaO2% (BldA) [Mass fraction] 96 % NILA ZZ DO NOT USE [facility] Comment on above: Performed By: #### [id number], [id number] #### [facility] [address] [place], [place] [address] Funeral Service Apprentice - Eneida LINK [id number] 05-04-2022 01:09-0500 Diastolic blood pressure 90 mm[Hg] Dustin Bear DO Work Phone: [facility] 05-04-2022 01:09-0500 Heart rate 94 /min Dustin Bear DO Work Phone: [facility] 05-04-2022 01:09-0500 Respiratory rate 16 /min Dustin Bear DO Work Phone: [facility] 05-04-2022 01:09-0500 SaO2% (BldA) [Mass fraction] 98 % Dustin Bear DO Work Phone: [facility] 05-04-2022 01:09-0500 Systolic blood pressure 127 mm[Hg] Dustin Bear DO Work Phone: [facility] 05-03-2022 20:56-0500 Body temperature 98.01 [degF] Dustin Bear DO Work Phone: [facility] 04-18-2022 17:00-0500 Respiratory rate 16 /min Dr. Himanshu Sanchez Work Phone: [facility] 04-18-2022 13:09-0500 Body temperature 97 [degF] Dr. Himanshu Sanchez Work Phone: 2(402)989-688286 [place] [address] 04-18-2022 13:09-0500 Diastolic blood pressure 78 mm[Hg] Dr. Himanshu Sanchez Work Phone: 3(039)498-525286 [place] [address] 04-18-2022 13:09-0500 Heart rate 78 /min Dr. Himanshu Sanchez Work Phone: 3(716)408-256786 [place] [address] 04-18-2022 13:09-0500 Systolic blood pressure 131 mm[Hg] Dr. Himanshu Sanchez Work Phone: 3(113)234-435586 [place] [address] 04-18-2022 09:51-0500 SaO2% (BldA) [Mass fraction] 100 % Dr. Himanshu Sanchez Work Phone: 7(330)034-887186 [place] [address] 04-14-2022 17:34-0500 Body height 170.[address] Himanshu Sanchez Work Phone: 8(555)329-076786 [place] [address] 04-14-2022 17:34-0500 Body mass index (BMI) [Ratio] 28.2 kg/m2 Dr. Himanshu Sanchez Work Phone: 7(539)099-007986 [place] [address] 04-14-2022 17:34-0500 Body weight 81.[address] Himanshu Sanchez Work Phone: 8(862)260-076586 [place] [address] 04-12-2022 19:40-0500 Diastolic blood pressure 98 mm[Hg] Dr. Himanshu Sanchez Work Phone: 8(655)645-705986 [place] [address] 04-12-2022 19:40-0500 Heart rate 100 /min Dr. Himanshu Sanchez Work Phone: 7(614)568-484086 [place] [address] 04-12-2022 19:40-0500 Respiratory rate 16 /min Dr. Himanshu Sanchez Work Phone: 3(527)822-872586 [place] [address] 04-12-2022 19:40-0500 SaO2% (BldA) [Mass fraction] 98 % Dr. Himanshu Sanchez Work Phone: 7(259)576-725986 [place] [address] 02-14-2023 19:40-0500 Systolic blood pressure 157 mm[Hg] Dr. Himanshu Sanchez Work Phone: 3(954)616-512186 [place] [address] 04-12-2022 17:00-0500 Body height 170.[address] Himanshu Sanchez Work Phone: 9(291)332-452486 [place] [address] 04-12-2022 17:00-0500 Body mass index (BMI) [Ratio] 28.8 kg/m2 Dr. Himanshu Sanchez Work Phone: 2(662)880-840086 [place] [address] 04-12-2022 17:00-0500 Body temperature 98.2 [degF] Dr. Himanshu Sanchez Work Phone: 2(401)856-650486 [place] [address] 04-12-2022 17:00-0500 Body weight 83.[address] Himanshu Sanchez Work Phone: 9(467)264-323386 [place] [address] 04-10-2022 15:26-0500 Diastolic blood pressure 74 mm[Hg] Dr. Himanshu Sanchez Work Phone: 3(532)671-649486 [place] [address] 04-10-2022 15:26-0500 Heart rate 62 /min Dr. Himanshu Sanchez Work Phone: 0(775)752-837186 [place] [address] 04-10-2022 15:26-0500 Respiratory rate 15 /min Dr. Himanshu Sanchez Work Phone: 0(248)977-263586 [place] [address] 04-10-2022 15:26-0500 SaO2% (BldA) [Mass fraction] 96 % Dr. Himanshu Sanchez Work Phone: 5(893)859-210186 [place] [address] 04-10-2022 15:26-0500 Systolic blood pressure 125 mm[Hg] Dr. Himanshu Sanchez Work Phone: 0(585)487-293786 [place] [address] 04-10-2022 13:02-0500 Body height 170.[address] Himanshu Sanchez Work Phone: 0(075)885-788286 [place] [address] 04-10-2022 13:02-0500 Body mass index (BMI) [Ratio] 27.6 kg/m2 Dr. Himanshu Sanchez Work Phone: 4(025)051-707586 [place] [address] 04-10-2022 13:02-0500 Body temperature 97.8 [degF] Dr. Himanshu Sanchez Work Phone: 5(346)321-846886 [place] [address] 04-10-2022 13:02-0500 Body weight 79.[address] Himanshu Sanchez Work Phone: 3(758)727-445086 [place] [address] 04-09-2022 13:42-0500 Body temperature 97.1 [degF] Dr. Himanshu Sanchez Work Phone: 1(067)523-904386 [place] [address] 04-09-2022 13:42-0500 Diastolic blood pressure 85 mm[Hg] Dr. Himanshu Sanchez Work Phone: 0(739)565-675486 [place] [address] 04-09-2022 13:42-0500 Heart rate 99 /min Dr. Himanshu Sanchez Work Phone: 6(448)219-285186 [place] [address] 04-09-2022 13:42-0500 Respiratory rate 102 /min Dr. Himanshu Sanchez Work Phone: 2(810)777-231886 [place] [address] 04-09-2022 13:42-0500 Systolic blood pressure 137 mm[Hg] Dr. Himanshu Sanchez Work Phone: 2(553)811-467686 [place] [address] 04-09-2022 09:09-0500 SaO2% (BldA) [Mass fraction] 98 % Dr. Himanshu Sanchez Work Phone: 9(713)132-539686 [place] [address] 04-08-2022 17:00-0500 Body temperature 98.2 [degF] Dr. Himanshu Sanchez Work Phone: 5(290)192-416086 [place] [address] 04-08-2022 17:00-0500 Diastolic blood pressure 96 mm[Hg] Dr. Himanshu Sanchez Work Phone: 1(484)485-826686 [place] [address] 04-08-2022 17:00-0500 Heart rate 100 /min Dr. Himanshu Sanchez Work Phone: 3(019)203-024386 [place] [address] 04-08-2022 17:00-0500 Respiratory rate 16 /min Dr. Himanshu Sanchez Work Phone: 8(536)117-264486 [place] [address] 04-08-2022 17:00-0500 SaO2% (BldA) [Mass fraction] 97 % Dr. Himanshu Sanchez Work Phone: 7(656)011-197286 [place] [address] 04-08-2022 17:00-0500 Systolic blood pressure 153 mm[Hg] Dr. Himanshu Sanchez Work Phone: 4(405)704-655886 [place] [address] 04-07-2022 15:30-0500 Body height 170.[address] Himanshu Sanchez Work Phone: 2(095)568-176786 [place] [address] 04-07-2022 15:30-0500 Body weight 79.[address] Himanshu Sanchez Work Phone: 9(160)292-931886 [place] [address] 04-07-2022 02:07-0500 Body mass index (BMI) [Ratio] 27.4 kg/m2 Dr. Himanshu Sanchez Work Phone: 2(093)725-511686 [place] [address] 04-02-2022 06:00-0500 Diastolic blood pressure 92 mm[Hg] Dr. Himanshu Sanchez Work Phone: 7(029)949-153986 [place] [address] 04-02-2022 06:00-0500 Heart rate 95 /min Dr. Himanshu Sanchez Work Phone: 6(844)691-843886 [place] [address] 04-02-2022 06:00-0500 Respiratory rate 15 /min Dr. Himanshu Sanchez Work Phone: 5(666)564-294986 [place] [address] 04-02-2022 06:00-0500 SaO2% (BldA) [Mass fraction] 97 % Dr. Himanshu Sanchez Work Phone: 0(743)306-942886 [place] [address] 04-02-2022 06:00-0500 Systolic blood pressure 146 mm[Hg] Dr. Himanshu Sanchez Work Phone: 2(926)500-998086 [place] [address] 04-01-2022 18:38-0500 Body height 170.[address] Himanshu Sanchez Work Phone: 2(997)607-198586 [place] [address] 04-01-2022 18:38-0500 Body mass index (BMI) [Ratio] 28.1 kg/m2 Dr. Himanshu Sanchez Work Phone: 1(656)198-270024 [place] [address] 04-01-2022 18:38-0500 Body temperature 97.8 [degF] Dr. Himanshu Sanchez Work Phone: 0(166)477-331386 [place] [address] 04-01-2022 18:38-0500 Body weight 81.[address] Himanshu Sanchez Work Phone: 4(806)456-817186 [place] [address] 03-30-2022 09:15-0500 Diastolic blood pressure 112 mm[Hg] Dr. Himanshu Sanchez Work Phone: 5(092)396-999886 [place] [address] 03-30-2022 09:15-0500 Systolic blood pressure 158 mm[Hg] Dr. Himanshu Sanchez Work Phone: 3(652)000-712086 [place] [address] 03-30-2022 07:54-0500 Body height 170.[address] Himanshu Sanchez Work Phone: 8(210)821-996686 [place] [address] 03-30-2022 07:54-0500 Body mass index (BMI) [Ratio] 29.5 kg/m2 Dr. Himanshu Sanchez Work Phone: 9(576)801-443286 [place] [address] 03-30-2022 07:54-0500 Body temperature 97 [degF] Dr. Himanshu Sanchez Work Phone: 1(540)531-061986 [place] [address] 03-30-2022 07:54-0500 Body weight 85.[address] Himanshu Sanchez Work Phone: 7(615)867-480786 [place] [address] 03-30-2022 07:54-0500 Heart rate 79 /min Dr. Himanshu Sanchez Work Phone: 7(583)918-960424 [place] [address] 03-30-2022 07:54-0500 Respiratory rate 16 /min Dr. Himanshu Sanchez Work Phone: 0(830)479-731386 [place] [address] 03-30-2022 07:54-0500 SaO2% (BldA) [Mass fraction] 98 % Dr. Himanshu Sanchez Work Phone: 4(654)558-253586 [place] [address] 03-10-2022 09:03-0500 Body temperature 97.5 [degF] Dr. Himanshu Sanchez Work Phone: [facility] 03-10-2022 09:03-0500 Diastolic blood pressure 96 mm[Hg] Dr. Himanshu Sanchez Work Phone: [facility] 03-10-2022 09:03-0500 Heart rate 71 /min Dr. Himanshu Sanchez Work Phone: [facility] 03-10-2022 09:03-0500 Respiratory rate 18 /min Dr. Himanshu Sanchez Work Phone: [facility] 03-10-2022 09:03-0500 SaO2% (BldA) [Mass fraction] 95 % Dr. Himanshu Sanchez Work Phone: [facility] 03-10-2022 09:03-0500 Systolic blood pressure 160 mm[Hg] Dr. Himanshu Sanchez Work Phone: [facility] 03-07-2022 11:11-0500 Body height 170.[address] Himanshu Sanchez Work Phone: [facility] Work Phone: 03-07-2022 11:11-0500 Body weight 88.[address] Himanshu Sanchez Work Phone: [facility] 03-02-2022 18:22-0500 Body temperature 97 [degF] [facility] Work Phone: 03-02-2022 18:22-0500 Diastolic blood pressure 90 mm[Hg] [facility] Work Phone: 03-02-2022 18:22-0500 Heart rate 76 /min [facility] Work Phone: 03-02-2022 18:22-0500 Respiratory rate 14 /min [facility] Work Phone: 03-02-2022 18:22-0500 SaO2% (BldA) [Mass fraction] 95 % [facility] Work Phone: 03-02-2022 18:22-0500 Systolic blood pressure 135 mm[Hg] [facility] Work Phone: 03-02-2022 17:55-0500 Body mass index (BMI) [Ratio] 30.5 kg/m2 Dr. Himanshu Sanchez Work Phone: [facility] 03-02-2022 08:38-0500 Body height 170.18 cm [facility] Work Phone: 03-02-2022 08:38-0500 Body mass index (BMI) [Ratio] 34.4 kg/m2 [facility] Work Phone: 03-02-2022 08:38-0500 Body weight 99.79 kg [facility] Work Phone: 02-17-2022 18:51-0500 Heart rate 98 /min [facility] 02-17-2022 18:51-0500 Respiratory rate 18 /min [facility] 02-17-2022 14:37-0500 Body height 165.1 cm [facility] Work Phone: 02-17-2022 14:37-0500 Body mass index (BMI) [Ratio] 38.2 kg/m2 [facility] 02-17-2022 14:37-0500 Body temperature 97.6 [degF] [facility] 02-17-2022 14:37-0500 Body weight 104.32 kg [facility] 02-17-2022 14:37-0500 Diastolic blood pressure 105 mm[Hg] [facility] 02-17-2022 14:37-0500 SaO2% (BldA) [Mass fraction] 100 % [facility] 02-17-2022 14:37-0500 Systolic blood pressure 148 mm[Hg] [facility] 11-14-2021 22:48-0400 Diastolic blood pressure 90 mm[Hg] [facility] Work Phone: 11-14-2021 22:48-0400 Heart rate 74 /min [facility] Work Phone: 11-14-2021 22:48-0400 Respiratory rate 16 /min [facility] Work Phone: 11-14-2021 22:48-0400 SaO2% (BldA) [Mass fraction] 98 % [facility] Work Phone: 11-14-2021 22:48-0400 Systolic blood pressure 136 mm[Hg] [facility] Work Phone: 11-14-2021 16:31-0400 Body height 165.1 cm [facility] Work Phone: 11-14-2021 16:31-0400 Body mass index (BMI) [Ratio] 37.4 kg/m2 [facility] Work Phone: 11-14-2021 16:31-0400 Body temperature 97.8 [degF] [facility] Work Phone: 11-14-2021 16:31-0400 Body weight 102.05 kg [facility] Work Phone: 10-10-2021 19:34-0400 Diastolic blood pressure 80 mm[Hg] [facility] Work Phone: 10-10-2021 19:34-0400 Heart rate 78 /min [facility] Work Phone: 10-10-2021 19:34-0400 Respiratory rate 15 /min [facility] Work Phone: 10-10-2021 19:34-0400 SaO2% (BldA) [Mass fraction] 99 % [facility] Work Phone: 10-10-2021 19:34-0400 Systolic blood pressure 135 mm[Hg] [facility] Work Phone: 10-10-2021 18:54-0400 Body height 165.1 cm [facility] Work Phone: 10-10-2021 18:54-0400 Body mass index (BMI) [Ratio] 39.9 kg/m2 [facility] Work Phone: 10-10-2021 18:54-0400 Body temperature 98 [degF] [facility] Work Phone: 10-10-2021 18:54-0400 Body weight 108.9 kg [facility] Work Phone: 10-04-2021 15:00-0400 Body weight 110.22 kg Maribell Lombardihof [employer] PA[employer] MIXING SUPERVISOR.MUSIC PROMOTER Work Phone: [facility] 10-04-2021 15:00-0400 Diastolic blood pressure 72 mm[Hg] Maribell Lombardihof COLOR PASTE MIXING SUPERVISOR.MUSIC PROMOTER Work Phone: [facility] 10-04-2021 15:00-0400 Heart rate 73 /min Maribell Lombardihof COLOR PASTE MIXING SUPERVISOR.MUSIC PROMOTER Work Phone: [facility] 10-04-2021 15:00-0400 Respiratory rate 16 /min Maribell Lombardihof COLOR PASTE MIXING SUPERVISOR.MUSIC PROMOTER Work Phone: [facility] 10-04-2021 15:00-0400 SaO2% (BldA) [Mass fraction] 98 % Maribellbassam Lombardihof COLOR PASTE MIXING SUPERVISOR.MUSIC PROMOTER Work Phone: [facility] 10-04-2021 15:00-0400 Systolic blood pressure 130 mm[Hg] Maribell Lombardihof COLOR PASTE MIXING SUPERVISOR.MUSIC PROMOTER Work Phone: [facility] 09-23-2021 15:29-0400 Body height 172.72 cm [facility] Work Phone: 09-23-2021 15:29-0400 Body mass index (BMI) [Ratio] 36.1 kg/m2 [facility] Work Phone: 09-23-2021 15:29-0400 Body temperature 98.4 [degF] [facility] Work Phone: 09-23-2021 15:29-0400 Body weight 107.95 kg [facility] Work Phone: 09-23-2021 15:29-0400 Diastolic blood pressure 73 mm[Hg] [facility] Work Phone: 09-23-2021 15:29-0400 Heart rate 79 /min [facility] Work Phone: 09-23-2021 15:29-0400 Respiratory rate 16 /min [facility] Work Phone: 09-23-2021 15:29-0400 SaO2% (BldA) [Mass fraction] 95 % [facility] Work Phone: 09-23-2021 15:29-0400 Systolic blood pressure 130 mm[Hg] [facility] Work Phone: 09-21-2021 19:39-0400 Body height 167.64 cm [facility] Work Phone: 09-21-2021 19:39-0400 Body mass index (BMI) [Ratio] 39.9 kg/m2 [facility] Work Phone: 09-21-2021 19:39-0400 Body temperature 97.4 [degF] [facility] Work Phone: 09-21-2021 19:39-0400 Body weight 112.1 kg [facility] Work Phone: 09-21-2021 19:39-0400 Diastolic blood pressure 57 mm[Hg] [facility] Work Phone: 09-21-2021 19:39-0400 Heart rate 76 /min [facility] Work Phone: 09-21-2021 19:39-0400 Respiratory rate 18 /min [facility] Work Phone: 09-21-2021 19:39-0400 SaO2% (BldA) [Mass fraction] 96 % [facility] Work Phone: 09-21-2021 19:39-0400 Systolic blood pressure 125 mm[Hg] [facility] Work Phone: 09-19-2021 22:26-0400 Respiratory rate 16 /min [facility] Work Phone: 09-19-2021 20:14-0400 Body height 167.64 cm [facility] Work Phone: 09-19-2021 20:14-0400 Body mass index (BMI) [Ratio] 39.9 kg/m2 [facility] Work Phone: 09-19-2021 20:14-0400 Body temperature 96.7 [degF] [facility] Work Phone: 09-19-2021 20:14-0400 Body weight 112.21 kg [facility] Work Phone: 09-19-2021 20:14-0400 Diastolic blood pressure 80 mm[Hg] [facility] Work Phone: 09-19-2021 20:14-0400 Heart rate 67 /min [facility] Work Phone: 09-19-2021 20:14-0400 SaO2% (BldA) [Mass fraction] 98 % [facility] Work Phone: 09-19-2021 20:14-0400 Systolic blood pressure 135 mm[Hg] [facility] Work Phone: 09-16-2021 21:16-0400 Body height 167.64 cm [facility] Work Phone: 09-16-2021 21:16-0400 Body mass index (BMI) [Ratio] 39.6 kg/m2 [facility] Work Phone: 09-16-2021 21:16-0400 Body temperature 98.1 [degF] [facility] Work Phone: 09-16-2021 21:16-0400 Body weight 111.4 kg [facility] Work Phone: 09-16-2021 21:16-0400 Diastolic blood pressure 118 mm[Hg] [facility] Work Phone: 09-16-2021 21:16-0400 Heart rate 68 /min [facility] Work Phone: 09-16-2021 21:16-0400 Respiratory rate 18 /min [facility] Work Phone: 09-16-2021 21:16-0400 SaO2% (BldA) [Mass fraction] 96 % [facility] Work Phone: 09-16-2021 21:16-0400 Systolic blood pressure 157 mm[Hg] [facility] Work Phone: 09-06-2021 19:07-0400 Diastolic blood pressure 89 mm[Hg] [facility] Work Phone: 09-06-2021 19:07-0400 Heart rate 91 /min [facility] Work Phone: 09-06-2021 19:07-0400 Respiratory rate 13 /min [facility] Work Phone: 09-06-2021 19:07-0400 SaO2% (BldA) [Mass fraction] 99 % [facility] Work Phone: 09-06-2021 19:07-0400 Systolic blood pressure 136 mm[Hg] [facility] Work Phone: 09-06-2021 16:33-0400 Body mass index (BMI) [Ratio] 40.1 kg/m2 [facility] Work Phone: 09-06-2021 16:33-0400 Body temperature 98.3 [degF] [facility] Work Phone: 09-06-2021 16:33-0400 Body weight 113 kg [facility] Work Phone: 08-31-2021 13:50-0400 Body height 167.64 cm [facility] Work Phone: 08-31-2021 13:50-0400 Body mass index (BMI) [Ratio] 35.5 kg/m2 [facility] Work Phone: 08-31-2021 13:50-0400 Body temperature 98 [degF] [facility] Work Phone: 08-31-2021 13:50-0400 Body weight 99.79 kg [facility] Work Phone: 08-31-2021 13:50-0400 Diastolic blood pressure 73 mm[Hg] [facility] Work Phone: 08-31-2021 13:50-0400 Heart rate 66 /min [facility] Work Phone: 08-31-2021 13:50-0400 Respiratory rate 18 /min [facility] Work Phone: 08-31-2021 13:50-0400 SaO2% (BldA) [Mass fraction] 98 % [facility] Work Phone: 08-31-2021 13:50-0400 Systolic blood pressure 123 mm[Hg] [facility] Work Phone: 08-29-2021 21:40-0400 Diastolic blood pressure 88 mm[Hg] Kaela Gonzales MD Work Phone: [facility] 08-29-2021 21:40-0400 Heart rate 62 /min Kaela Gonzales MD Work Phone: [facility] 08-29-2021 21:40-0400 Respiratory rate 16 /min Kaela Gonzales MD Work Phone: [facility] 08-29-2021 21:40-0400 SaO2% (BldA) [Mass fraction] 100 % Kaela Gonzales MD Work Phone: [facility] 08-29-2021 21:40-0400 Systolic blood pressure 132 mm[Hg] Kaela Gonzales MD Work Phone: [facility] 08-29-2021 17:00-0400 Body height 160 cm Kaela Gonzales MD Work Phone: [facility] 08-29-2021 17:00-0400 Body mass index (BMI) [Ratio] 50.49 kg/m2 Kaela Gonzales MD Work Phone: [facility] 08-29-2021 17:00-0400 Body temperature 98.01 [degF] Kaela Gonzales MD Work Phone: [facility] 08-29-2021 17:00-0400 Body weight 129.28 kg Kaela Gonzales MD Work Phone: [facility] 08-08-2021 13:46-0400 Diastolic blood pressure 66 mm[Hg] [facility] Work Phone: 08-08-2021 13:46-0400 Heart rate 78 /min [facility] Work Phone: 08-08-2021 13:46-0400 Respiratory rate 18 /min [facility] Work Phone: 08-08-2021 13:46-0400 Systolic blood pressure 126 mm[Hg] [facility] Work Phone: 08-08-2021 13:15-0400 SaO2% (BldA) [Mass fraction] 97 % [facility] Work Phone: 08-08-2021 11:55-0400 Body height 165.1 cm [facility] Work Phone: 08-08-2021 11:55-0400 Body mass index (BMI) [Ratio] 41.8 kg/m2 [facility] Work Phone: 08-08-2021 11:55-0400 Body temperature 97.5 [degF] [facility] Work Phone: 08-08-2021 11:55-0400 Body weight 114 kg [facility] Work Phone: 07-29-2021 14:25-0400 Diastolic blood pressure 70 mm[Hg] [facility] Work Phone: 07-29-2021 14:25-0400 Systolic blood pressure 146 mm[Hg] [facility] Work Phone: 07-29-2021 13:14-0400 Body height 165.1 cm [facility] Work Phone: 07-29-2021 13:14-0400 Body mass index (BMI) [Ratio] 42 kg/m2 [facility] Work Phone: 07-29-2021 13:14-0400 Body temperature 96.7 [degF] [facility] Work Phone: 07-29-2021 13:14-0400 Body weight 114.57 kg [facility] Work Phone: 07-29-2021 13:14-0400 Heart rate 71 /min [facility] Work Phone: 07-29-2021 13:14-0400 Respiratory rate 18 /min [facility] Work Phone: 07-29-2021 13:14-0400 SaO2% (BldA) [Mass fraction] 97 % [facility] Work Phone: 04-30-2019 12:07-0500 Pulse (Heart Rate) 66 /min [facility] [place] 04-30-2019 11:54-0500 Body Temperature 96.49 [degF] [facility] 04-30-2019 11:54-0500 BP Diastolic 82 mm[Hg] [facility] 04-30-2019 11:54-0500 BP Systolic 127 mm[Hg] [facility] 04-30-2019 11:54-0500 Pulse Oximetry 100 % [facility] 04-30-2019 11:54-0500 Respiratory Rate 13 /min [facility] 04-23-2019 09:57-0500 Height 172.7 cm [facility] 04-23-2019 07:00-0500 BMI (Body Mass Index) 43.44 kg/m2 Haroon Matriano [facility], [place] 04-23-2019 07:00-0500 Body weight 129.6 kg Haroon [facility] 02-28-2019 13:53-0500 Body temperature 98.49 [degF] Franky Hanson MD Work Phone: [employer] Work Phone: 02-28-2019 13:53-0500 Diastolic blood pressure 51 mm[Hg] Franky Hanson MD Work Phone: [employer] Work Phone: 02-28-2019 13:53-0500 Heart rate 66 /min Franky Hanson MD Work Phone: [employer] Work Phone: 02-28-2019 13:53-0500 Respiratory rate 16 /min Franky Hanson MD Work Phone: [employer] Work Phone: 02-28-2019 13:53-0500 SaO2% (BldA) [Mass fraction] 96 % Franky Hanson MD Work Phone: [employer] Work Phone: 02-28-2019 13:53-0500 Systolic blood pressure 100 mm[Hg] Franky Hanson MD Work Phone: [employer] Work Phone: 02-26-2019 06:00-0500 Body mass index (BMI) [Ratio] 46.66 kg/m2 Franky Hanson MD Work Phone: [employer] Work Phone: 02-26-2019 06:00-0500 Body weight 123.3 kg Franky Hanson MD Work Phone: [employer] Work Phone: 02-23-2019 23:35-0500 Body height 162.6 cm Franky Hanson MD Work Phone: [employer] Work Phone: 11-08-2018 12:35-0400 Body Temperature 97.81 [degF] [facility] 11-08-2018 12:35-0400 BP Diastolic 81 mm[Hg] [facility] 11-08-2018 12:35-0400 BP Systolic 117 mm[Hg] [facility] 11-08-2018 12:35-0400 Pulse (Heart Rate) 74 /min [facility] 11-08-2018 12:35-0400 Pulse Oximetry 100 % [facility] 11-08-2018 12:35-0400 Respiratory Rate 18 /min [facility] 11-06-2018 11:13-0400 BMI (Body Mass Index) 40.9 kg/m2 [facility] 11-06-2018 11:13-0400 Body weight 122 kg [facility] 11-06-2018 11:13-0400 Height 172.7 cm [facility] En[facility]ters Encounter Date Encounter Type Care Provider Facility Start: 05-20-2024 End: 05-20-[address] Himanshu Sanchez MD Work Phone: [facility] Work Phone: Start: 05-20-2024 End: 05-20-2024 Departed Referred Audie wilson Start: 05-20-2024 End: 05-20-2024 ambulatory Himanshu MUNOZ Facility:[facility] Start: 02-16-2024 End: 02-16-2024 Departed Referred Audie wilson Start: 02-16-2024 End: 02-16-2024 ambulatory Audie MUNOZ Facility:[facility] Start: 12-06-2023 ambulatory Himanshu MUNOZ Facility:[facility] Start: 11-17-2023 End: 11-17-2023 ambulatory Himanshu MUNOZ Facility:[facility] Start: 08-17-2023 End: 08-17-2023 ambulatory Audie MUNOZ Facility:[facility] Start: 07-25-2023 End: 07-25-2023 ambulatory NILA BacaZ DO NOT USE BO Facility:[facility] Start: 06-27-2023 End: 06-27-2023 ambulatory NILA SORIANO MD Facility:[facility] Start: 06-06-2023 End: 06-06-2023 ambulatory NILA BECERRA DO NOT USE BO Facility:[facility] Start: 05-30-2023 End: 05-30-2023 ambulatory NILA BECERRA DO NOT USE BO Facility:[facility] Start: 05-09-2023 End: 05-09-2023 Emergency department patient visit LETY WESLEY DO Facility:[facility] Start: 04-23-2023 End: 04-24-2023 Emergency department patient visit NILA BECERRA DO NOT USE BO Facility:[facility] Start: 03-30-2023 End: 04-06-2023 Evaluation and management of inpatient INFECTIOUS DISEASE CONSULT Facility:[facility] Start: 03-30-2023 End: 04-06-2023 Evaluation and management of inpatient Chery Schmitz MD Work Phone: [id number] Comment on above: Status epilepticus Start: 03-29-2023 End: 03-30-2023 Emergency department patient visit NILA BECERRA DO NOT USE BO Facility:[facility] Start: 03-06-2023 End: 03-06-2023 ambulatory NONE NONE Facility:[facility] Start: 02-07-2023 End: 02-07-2023 ambulatory NONE NONE Facility:[facility] Start: 05-03-2022 End: 05-04-2022 Emergency department patient visit DUSTIN CARTAGENA [facility] Start: 05-03-2022 End: 05-04-2022 Emergency department patient visit Dustin Cartagena DO Work Phone: [facility] Comment on above: Urinary tract infect ion without hematuria, site unspecified (Primary Dx); Right leg pain Start: 05-03-2022 End: 05-04-2022 Evaluation and management of inpatient Dustin Cartagena DO Work Phone: [facility] Start: 04-18-[address] Ariadna Sanchez Work Phone: [facility] Work Phone: Start: 04-18-2022 Dr. Himanshu Sanchez Work Phone: [facility] Inpatient Physicians Start: 04-12-2022 End: 04-12-2022 Emergency department patient visit Dr. Himanshu Sanchez Work Phone: [facility] Work Phone: Start: 04-12-2022 End: 04-12-2022 Dr. 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 Himanshu Sanchez Work Phone: [facility] Work Phone: Start: 04-10-2022 End: 04-10-2022 Dr. Himanshu Sanchez Work Phone: [facility] Start: 04-09-2022 Dr. Himanshu Sanchez Work Phone: [facility] Inpatient Physicians Start: 04-08-2022 Non-patient / Non-visit Dr. Senia Sanchez Work Phone: [facility] Start: 04-08-2022 Dr. Himanshu Sanchez Work Phone: [facility] In[facility] Start: 04-07-2022 Non-patient / Non-visit Dr. Senia Sanchez Work Phone: [facility] In[facility] Phys[facility] Start: 04-07-2022 End: 04-09-2022 Evaluation and management of inpatient Dr. Himanshu Sanchez Work Phone: [facility] Start: 04-07-2022 End: 04-09-[address] Himanshu Sanchez Work Phone: [facility] Work Phone: Start: 04-07-2022 End: 04-09-2022 Dr. Himanshu Sanchez Work Phone: [facility] Start: 04-01-2022 End: 04-02-2022 Emergency department patient [facility] Start: 04-01-2022 End: 04-02-2022 Dr. Himanshu Sanchez Work Phone: [facility] Start: 03-30-2022 End: 03-30-2022 Emergency department patient visit Dr. Himanshu Sanchez Work Phone: [facility] Start: 03-30-2022 End: 03-30-2022 Dr. Himanshu Sanchez Work Phone: [facility] Start: 03-21-2022 End: 03-21-[address] Himanshu Sanchez Work Phone: [facility] Work Phone: Start: 03-21-2022 End: 03-21-[address] Himanshu Sanchez Work Phone: [facility] Start: 03-21-[address] Savage Snachez Work Phone: [facility] Start: 03-21-2022 End: 03-21-2022 Dr. Himanshu Sanchez Work Phone: [facility] Start: 03-18-2022 End: 03-18-[address] Himanshu Sanchez Work Phone: [facility] Work Phone: Start: 03-18-2022 End: 03-18-[address] Himanshu Sanchez Work Phone: [facility] Start: 03-18-[address] Savage Sanchez Work Phone: [phone] [place] [address] Start: 03-18-2022 End: 03-18-2022 Dr. Himanshu Sanchez Work Phone: [phone] [place] [address] Start: 03-14-2022 End: 03-14-[address] Himanshu Sanchez Work Phone: [phone] [place] [address] Work Phone: Start: 03-14-2022 End: 03-14-[address] Himanshu Sanchez Work Phone: [phone] [place] [address] Start: 03-14-[address] Savage Sanchez Work Phone: [phone] [place] [address] Start: 03-14-2022 End: 03-14-2022 Dr. Himanshu Sanchez Work Phone: [phone] [place] [address] Start: 03-12-[address] Savage Sanchez Work Phone: [phone] [place] [address] Start: 03-12-2022 Dr. Himanshu Sanchez Work Phone: [facility] Start: 03-11-2022 End: 03-11-[address] Himanshu Sanchez Work Phone: [phone] [place] [address] Start: 03-11-[address] Savage Sanchez Work Phone: [phone] [place] [address] Start: 03-11-2022 End: 03-11-2022 Dr. Himanshu Sanchez Work Phone: [facility] Start: 03-10-2022 Non-patient / Non-visit Dr. Senia Sanchez Work Phone: [facility] In[facility] Phys[facility] Start: 03-10-2022 Dr. Himanshu Sanchez Work Phone: [facility] Start: 03-09-2022 Non-patient / Non-visit Dr. Senia Sanchez Work Phone: [facility] In[facility] Phys[facility] Start: 03-09-2022 Dr. Himanshu Sanchez Work Phone: [facility] In[facility] Phys[facility] Start: 03-08-2022 Non-patient / Non-visit Dr. Senia Sanchez Work Phone: [facility] Start: 03-08-2022 Dr. Himanshu Sanchez Work Phone: [facility] Start: 03-08-2022 Non-patient / Non-visit Dr. Senia Sanchez Work Phone: [facility] In[facility] Phys[facility] Start: 03-08-2022 Dr. Himanshu Sanchez Work Phone: [facility] Phys[facility] Start: 03-07-2022 Non-patient / Non-visit Dr. Senia Sanchez Work Phone: [facility] Start: 03-07-2022 Dr. Himanshu Sanchez Work Phone: [facility] Start: 03-07-2022 Non-patient / Non-visit Dr. Senia Sanchez Work Phone: [facility] Start: 03-07-2022 Dr. Himanshu Sanchez Work Phone: [facility] Start: 03-06-2022 Non-patient / Non-visit Dr. Senia Sanchez Work Phone: [facility] Start: 03-06-2022 Dr. Himanshu Sanchez Work Phone: [facility] Start: 03-06-2022 Non-patient / Non-visit Dr. Senia Sanchez Work Phone: [facility] Start: 03-06-2022 Dr. Himanshu Sanchez Work Phone: [phone] [place] [address] Inpatient Physicians Start: 03-05-2022 Non-patient / Non-visit Dr. Senia Sanchez Work Phone: [facility] Start: 03-05-2022 Dr. Himanshu Sanchez Work Phone: [facility] Start: 03-04-2022 Non-patient / Non-visit Dr. Senia Sanchez Work Phone: [facility] Start: 03-04-2022 Dr. Himanshu Sanchez Work Phone: [facility] Start: 03-04-2022 Non-patient / Non-visit Dr. Senia Sanchez Work Phone: [facility] Start: 03-04-2022 Dr. Himanshu Sanchez Work Phone: [facility] Start: 03-03-2022 Non-patient / Non-visit Dr. Senia Sanchez Work Phone: [facility] Start: 03-03-2022 Dr. Himanshu Sanchez Work Phone: [facility] Start: 03-03-2022 Non-patient / Non-visit Dr. Senia Sanchez Work Phone: [facility] Start: 03-03-2022 Dr. Himanshu Sanchez Work Phone: [facility] Start: 03-02-2022 Non-patient / Non-visit Dr. Senia Sanchez Work Phone: [facility] In[facility] Phys[facility] Start: 03-02-2022 End: 03-10-2022 Evaluation and management of inpatient [facility] Start: 03-02-2022 End: 03-10-2022 Dr. Himanshu Sanchez Work Phone: [facility] Start: 02-17-2022 End: 02-17-2022 [facility] Start: 02-17-2022 End: 02-17-2022 Dr. Himanshu Sanchez Work Phone: [facility] Start: 12-17-2021 Refill Katia Herrera APRN.MUSIC PROMOTER Work Phone: [facility] Comment on above: Refill Request Start: 12-09-2021 Telephone encounter Himanshu Sanchez MD Work Phone: [facility] Comment on above: [facility] Start: 11-16-2021 Telephone encounter Himanshu Sanchez MD Work Phone: [facility] Comment on above: Appointment Start: 11-14-2021 End: 11-14-2021 Emergency department patient visit [facility] Start: 10-10-2021 End: 10-10-2021 Emergency department patient visit [facility] Start: 10-04-2021 End: 10-04-2021 Patient encounter procedure Maribell Bernard APRN.MUSIC PROMOTER Work Phone: [facility] Comment on above: Breakthrough seizure (HCC) (Primary Dx) Start: 09-23-2021 End: 09-23-2021 Emergency department patient visit [facility] Start: 09-22-2021 Refill Gianfranco Sanchez MD Work Phone: [facility] Comment on above: Refill Request Start: 09-21-2021 End: 09-21-2021 [facility] Start: 09-19-2021 End: 09-19-2021 [facility] Start: 09-16-2021 End: 09-16-2021 Emergency department patient visit [facility] Start: 09-06-2021 End: 09-06-2021 Emergency department patient visit [facility] Start: 08-31-2021 End: 08-31-2021 [facility] Start: 08-29-2021 End: 08-29-2021 Emergency department patient visit Kaela Gonzales MD Work Phone: [facility] Emergency Dept Comment on above: Seizure (HCC) (Prima ry Dx) Start: 08-08-2021 End: 08-08-2021 Emergency department patient visit [facility] Start: 07-29-2021 End: 07-29-2021 [facility] Start: 03-10-2021 Telephone encounter Katia ewing APRN.CNP Work Phone: [facility] Comment on above: Covid Test Result Start: 07-21-2020 Telephone encounter Himanshu Sanchez MD Work Phone: [facility] Comment on above: Discharge from [facility] n ext week Start: 04-21-2019 End: 04-30-2019 Evaluation and management of inpatient Haroon Jones Work Phone: [facility] Comment on above: Status epilepticus ( HCC) (Primary Dx); Seizure (HCC) Start: 02-23-2019 End: 02-28-2019 Evaluation and management of inpatient Franky Hanson MD Work Phone: [facility] Start: 11-05-2018 End: 11-08-2018 Evaluation and management of inpatient Lety Jeyson Work Phone: [facility] Start: 06-09-2017 Emergency department patient visit UNKNOWN PROVIDER [facility] Start: 05-21-2017 Evaluation and management of inpatient UNKNOWN PROVIDER [facility] Procedures Date Procedure Procedure Detail Performing Clinician Start: 04-06-2023 Blood count complete automated Nic knight [employer] SUPERVISOR-MUSIC PROMOTER Work Phone: Start: 04-05-2023 Assay of magnesium Nic Amaya [employer] PA[employer] MIXING SUPERVISOR-MUSIC PROMOTER Work Phone: Start: 04-04-2023 Mri brain brain stem w/o contrast material Sakina Solis MD Work Phone: Start: 04-04-2023 Drug screen quantitative phenobarbital Linnea Alex Aj [employer] PA[employer] MIXING SUPERVISOR-MUSIC PROMOTER Work Phone: Start: 04-04-2023 Glucose measurement, blood Tashia garrett MD Work Phone: Start: 04-04-2023 Glucose measurement, blood Jeff galarza MD Work Phone: Start: 04-04-2023 Assay of magnesium Nic Amaya [employer] PA[employer] MIXING SUPERVISOR-MUSIC PROMOTER Work Phone: Start: 04-04-2023 Glucose measurement, blood Jeff galarza MD Work Phone: Start: 04-03-2023 Glucose measurement, blood Tashia garrett MD Work Phone: Start: 04-03-2023 MRI PLAIN FILM FOR NEURO EXAM Mukesh Nolan MD Work Phone: Start: 04-03-2023 Glucose measurement, blood Mukesh Nolan MD Work Phone: Start: 04-03-2023 Glucose measurement, blood Chery cano MD Work Phone: Start: 04-02-2023 Assay of magnesium Nicdavey Castañedarell [employer] PA[employer] MIXING SUPERVISOR-MUSIC PROMOTER Work Phone: Start: 04-02-2023 Glucose measurement, blood Chery cano MD Work Phone: Start: 04-02-2023 Glucose measurement, blood Chery cano MD Work Phone: Start: 04-02-2023 Glucose measurement, blood Chery cano MD Work Phone: Start: 04-02-2023 GENERAL PROCEDURE Abdulaziz Cruz MD Work Phone: Start: 04-02-2023 Glucose measurement, blood Chery cano MD Work Phone: Start: 04-02-2023 Assay of magnesium Nic Amaya [employer] PA[employer] MIXING SUPERVISOR-MUSIC PROMOTER Work Phone: Start: 04-02-2023 End: 04-02-2023 Glucose measurement, blood Chery cano MD Work Phone: Start: 04-01-2023 Glucose measurement, blood Chery cano MD Work Phone: Start: 04-01-2023 Glucose measurement, blood Chery cano MD Work Phone: Start: 04-01-2023 Eeg extended monitoring 61-119 minutes Richard Zhang COL[employer] PA[employer] MIXING SUPERVISOR-MUSIC PROMOTER Work Phone: Start: 04-01-2023 Drug screen quantitative phenobarbital Sakina Solis MD Work Phone: Start: 04-01-2023 Glucose measurement, blood Chery cano MD Work Phone: Start: 04-01-2023 Assay of magnesium Nic Amaya [employer] PA[employer] MIXING SUPERVISOR-MUSIC PROMOTER Work Phone: Start: 04-01-2023 Glucose measurement, blood Chery cano MD Work Phone: Start: 03-31-2023 Glucose measurement, blood Chery cano MD Work Phone: Start: 03-31-2023 Eeg extended monitoring 61-119 minutes Torrey Heller MD Work Phone: Start: 03-31-2023 Glucose measurement, blood Chery cano MD Work Phone: Start: 03-31-2023 Glucose measurement, blood Chery cano MD Work Phone: Start: 03-31-2023 Assay of magnesium Nic Amaya [employer] PA[employer] MIXING SUPERVISOR-MUSIC PROMOTER Work Phone: Start: 03-31-2023 Calcium ionized Nic Amaya [employer] MIXING SUPERVISOR-MUSIC PROMOTER Work Phone: Start: 03-30-2023 Radiologic exam abdomen 1 view Linnea Rocha [employer] PA[employer] MIXING SUPERVISOR-MUSIC PROMOTER Work Phone: Start: 03-30-2023 Glucose measurement, blood Chery cano MD Work Phone: Start: 03-30-2023 Radiologic exam abdomen 1 view Vikas Martinez MD Work Phone: Start: 03-30-2023 Glucose measurement, blood Chery cano MD Work Phone: Start: 03-30-2023 TROPONIN 1 HOUR Vikas Martinez MD Work Phone: Start: 03-30-2023 Radiologic exam abdomen 1 view Sakina Moody MD Work Phone: Start: 03-30-2023 Ct head/brain w/o contrast material Vikas Martinez MD Work Phone: Start: 03-30-2023 HIGH SENSITIVITY TROPONIN I X2 Vikas Martinez MD Work Phone: Start: 03-30-2023 Potassium serum plasma/whole blood Neela Zhang [employer] M[employer]ING SUPERVISOR-MUSIC PROMOTER Work Phone: Start: 03-30-2023 TROPONIN I INITIAL Vikas Martinez MD Work Phone: Start: 03-30-2023 End: 03-30-2023 Antibody screen Chery Schmitz MD Work Phone: Comment on above: Performed By: #### XM #### [facility] ([facility]) [address] [place] [address] Start: 03-30-2023 Blood gases any combination ph pco2 po2 co2 hco3 Richard Archer Zhang [employer] M[employer]ING SUPERVISOR-MUSIC PROMOTER Work Phone: Start: 03-30-2023 Smr prim src gram/giemsa stain bct fungi/cell Richard Archer Vicente [employer] MIXING SUPERVISOR-MUSIC PROMOTER Work Phone: Start: 03-30-2023 Radiologic exam abdomen 1 view Vikas Martinez MD Work Phone: Start: 03-30-2023 End: 03-30-2023 Drug tst prsmv instrmnt chem analyzers pr date Richard Archer Zhang [employer] MIXING SUPERVISOR-MUSIC PROMOTER Work Phone: Start: 03-30-2023 EXTRA MICRO Richard Archer Zhang [employer] MIXING SUPERVISOR-MUSIC PROMOTER Work Phone: Start: 03-30-2023 URINALYSIS REFLEX TO CULTURE Richard Jesus [employer] MIXING SUPERVISOR-MUSIC PROMOTER Work Phone: Start: 03-30-2023 Urine test visual color cmprsn meths Richard Archer Vicente [employer] MIXING SUPERVISOR-MUSIC PROMOTER Work Phone: Start: 03-30-2023 ABORH TYPE RECONFIRMATION Dillan Coulter MD Work Phone: Start: 03-30-2023 CBC AND ELECTRONIC DIFF Richard Archer Zhang [employer] MIXING SUPERVISOR-MUSIC PROMOTER Work Phone: Start: 03-30-2023 Complete blood count with white cell differential, automated Richard Archer Vicente [employer] MIXING SUPERVISOR-MUSIC PROMOTER Work Phone: Start: 03-30-2023 Radiologic exam chest single view Richard Zhang [employer] MIXING SUPERVISOR-MUSIC PROMOTER Work Phone: Start: 03-30-2023 Bilirubin direct Richard Archer Zhang [employer] PA[employer] MIXING SUPERVISOR-MUSIC PROMOTER Work Phone: Start: 03-30-2023 End: 03-30-2023 Iadna s aureus amplified probe tq Richard Archer Zhang [employer] MIXING SUPERVISOR-MUSIC PROMOTER Work Phone: Start: 03-30-2023 Glucose measurement, blood Chery cano MD Work Phone: Start: 05-03-2022 End: 05-03-2022 Culture bacterial quanttative colony count urine Dustin Cartagena DO Work Phone: Start: 05-03-2022 Radex hip unilateral with pelvis 2-3 views Dustin Cartagena DO Work Phone: Start: 05-03-2022 Radiologic exam chest single view Dustin Cartagena DO Work Phone: Start: 05-03-2022 Ct head/brain w/o contrast material Dustin Cartagena DO Work Phone: Start: 05-03-2022 CBC W Auto Differential panel - Blood Dustin Cartagena DO Work Phone: Start: 05-03-2022 Comprehensive metabolic panel Dustin wilson DO Work Phone: Start: 05-03-2022 Infectious agent dna/rna influenza 1st 2 types Dustin Cartagena DO Work Phone: Start: 05-03-2022 Sars-cov-2 detection by dna/rna Dustin Rod ear DO Work Phone: Start: 05-03-2022 Ecg routine ecg w/least 12 lds trcg only w/o i&r Dustin Cartagena DO Work Phone: Start: 04-07-2022 X-ray of both feet Dr. Himanshu Sanchez Work Phone: Start: 04-06-2022 CT of head without contrast Dr. Arnol Sanchez Work Phone: Start: 04-01-2022 CT of head without contrast Dr. Arnol Sanchez Work Phone: Start: 03-30-2022 Pelvis X-ray Dr. Himanshu Sanchez Work Phone: Start: 03-03-[address] Néstor Sanchez Work Phone: Start: 03-02-[address] Néstor Sanchez Work Phone: Start: 02-17-2022 CT cervical spine without contrast Start: 02-17-2022 CT of head without contrast Start: 09-21-2021 CT of head without contrast Start: 08-29-2021 Basic metabolic panel calcium total Kaela Gonzales MD Work Phone: Start: 04-30-2019 Assay of magnesium Edward A Huerta Work Phone: Start: 04-30-2019 Assay of phosphorus inorganic Edward A W right Work Phone: Start: 04-30-2019 BASIC METABOLIC PANEL W/ REFLEX TO MG FOR LOW K Edward A Bradley Work Phone: Start: 04-30-2019 Blood count complete auto&auto difrntl wbc Elio A Huerta Work Phone: Start: 04-29-2019 EEG REPORT Rosamaria Powell Work Phone: Start: 04-29-2019 Assay of folic acid serum Manoj Klein Sing h Work Phone: Start: 04-29-2019 Assay of magnesium Elio A Huerta Work Phone: Start: 04-29-2019 Assay of phosphorus inorganic Edward A W right Work Phone: Start: 04-29-2019 BASIC METABOLIC PANEL W/ REFLEX TO MG FOR LOW K Carlosward A Bradley Work Phone: Start: 04-29-2019 Cyanocobalamin vitamin b-12 Manoj Klein Si [facility] Work Phone: Start: 04-29-2019 Drug screen quantitative phenobarbital Zoe Mills Work Phone: Start: 04-29-2019 Blood count complete auto&auto difrntl wbc Elio A Bradley Work Phone: Start: 04-29-2019 EEG Zoe Mills Work Phone: Start: 04-28-2019 Hepatic function panel Zoe Mills Work Phone: Start: 04-28-2019 Assay of ferritin Manoj Klein Sean Work Phone: Start: 04-28-2019 Assay of magnesium Edward A Huerta Work Phone: Start: 04-28-2019 Assay of phosphorus inorganic Edward A W right Work Phone: Start: 04-28-2019 BASIC METABOLIC PANEL W/ REFLEX TO MG FOR LOW K Edward A Huerta Work Phone: Start: 04-28-2019 Blood count complete auto&auto difrntl wbc Edward A Huerta Work Phone: Start: 04-28-2019 Drug screen quantitative phenobarbital Zoe Mills Work Phone: Start: 04-28-2019 Iron binding capacity Manoj Klein Sean Work Phone: Start: 04-27-2019 Assay of magnesium Edward A Huerta Work Phone: Start: 04-27-2019 Assay of phosphorus inorganic Edward A W right Work Phone: Start: 04-27-2019 BASIC METABOLIC PANEL W/ REFLEX TO MG FOR LOW K Edward A Huerta Work Phone: Start: 04-27-2019 Blood count complete auto&auto difrntl wbc Edward A Huerta Work Phone: Start: 04-27-2019 Drug screen quantitative phenobarbital Sharron Hill Work Phone: Start: 04-26-2019 EEG REPORT Rosamaria Powell Work Phone: Start: 04-26-2019 Assay of magnesium Edward A Huerta Work Phone: Start: 04-26-2019 Assay of phosphorus inorganic Edward A W right Work Phone: Start: 04-26-2019 BASIC METABOLIC PANEL W/ REFLEX TO MG FOR LOW K Edward A Huerta Work Phone: Start: 04-26-2019 Blood count complete auto&auto difrntl wbc Edward A Huerta Work Phone: Start: 04-26-2019 Drug screen quantitative phenobarbital Sharron Latoya. Gezzar Work Phone: Start: 04-25-2019 Assay of magnesium Edward A Huerta Work Phone: Start: 04-25-2019 Assay of phosphorus inorganic Edward A W right Work Phone: Start: 04-25-2019 BASIC METABOLIC PANEL W/ REFLEX TO MG FOR LOW K Edward A Huerta Work Phone: Start: 04-25-2019 Blood count complete auto&auto difrntl wbc Edward A Huerta Work Phone: Start: 04-25-2019 Drug assay valproic dipropylacetic acid total Sharron Latoya. Ronniepbar Work Phone: Start: 04-25-2019 Drug screen quantitative phenobarbital Sharron Latoya. Gezzar Work Phone: Start: 04-25-2019 Drug screen quantitative phenytoin total Edward A Huerta Work Phone: Start: 04-24-2019 EEG Sharron Latoya. Gezzgene Work Phone: Start: 04-24-2019 Assay of magnesium Edward A Huerta Work Phone: Start: 04-24-2019 Assay of phosphorus inorganic Edward A W right Work Phone: Start: 04-24-2019 BASIC METABOLIC PANEL W/ REFLEX TO MG FOR LOW K Edward A Huerta Work Phone: Start: 04-24-2019 Blood count complete auto&auto difrntl wbc Edward A Huerta Work Phone: Start: 04-24-2019 Drug screen quantitative phenobarbital Edward A Huerta Work Phone: Start: 04-24-2019 Drug screen quantitative phenytoin total Edward A Huerta Work Phone: Start: 04-23-2019 Assay of magnesium Edward A Huerta Work Phone: Start: 04-23-2019 Assay of phosphorus inorganic Edward A W right Work Phone: Start: 04-23-2019 BASIC METABOLIC PANEL W/ REFLEX TO MG FOR LOW K Eilo Huerta Work Phone: Start: 04-23-2019 Blood count complete auto&auto difrntl wbc Elio Huerta Work Phone: Start: 04-23-2019 Drug screen quantitative phenytoin total Branavan Ragunanthan Work Phone: Start: 04-22-2019 EXTUBATION Ann Marieronald Johnson Work Phone: Start: 04-22-2019 EEG REPORT Rosamaria Powell Work Phone: Start: 04-22-2019 Assay of troponin quantitative Maribell Isai Jose L Start: 04-22-2019 Chest x-ray 1 view frontal Fahad Tillman Work Phone: Start: 04-22-2019 BLOOD GAS, ARTERIAL Branavan Ragunanthan Work Phone: Start: 04-22-2019 Assay of magnesium Elio Huerta Work Phone: Start: 04-22-2019 Assay of phosphorus inorganic Elio lovett Work Phone: Start: 04-22-2019 Assay of troponin quantitative Branavan Ragunanthan Work Phone: Start: 04-22-2019 BASIC METABOLIC PANEL W/ REFLEX TO MG FOR LOW K Elio Huerta Work Phone: Start: 04-22-2019 Blood count complete auto&auto difrntl wbc Elio Huerta Work Phone: Start: 04-22-2019 Drug screen quantitative phenytoin total Branavan Ragunanthan Work Phone: Start: 04-21-2019 Ct head/brain w/o contrast material Branavan Ragunanthan Work Phone: Start: 04-21-2019 Culture bacterial blood aerobic w/id isolates Branavan Ragunanthan Work Phone: Start: 04-21-2019 CULTURE, BLOOD 1 Branavan Ragunanthan Work Phone: Start: 04-21-2019 Drug screen class list a Branavan Ragunanthan Work Phone: Start: 04-21-2019 Urnls dip stick/tablet rgnt auto w/o microscopy Darenavan Ulicesntmj Work Phone: Start: 04-21-2019 Assay of free thyroxine Branavan Clarenceunanthan Work Phone: Start: 04-21-2019 Assay of lactate Darenavan Ulicesntmj Work Phone: Start: 04-21-2019 Assay of magnesium Edward A Huerta Work Phone: Start: 04-21-2019 Assay of phosphorus inorganic Edward A W right Work Phone: Start: 04-21-2019 Assay of thyroid stimulating hormone tsh Darenavan Ulicesntmj Work Phone: Start: 04-21-2019 Assay of troponin quantitative Darenavan Ulicesnthan Work Phone: Start: 04-21-2019 Blood count complete auto&auto difrntl wbc Edward A Huerta Work Phone: Start: 04-21-2019 C-reactive protein Darenavan Ulicesntmj Work Phone: Start: 04-21-2019 Creatine kinase isoenzymes Darenavan Ulicesntmj Work Phone: Start: 04-21-2019 Creatine kinase total Darenavan Clarenceunantmj Work Phone: Start: 04-21-2019 Drug screen quantitative phenytoin total Darenavan Ragunanthan Work Phone: Start: 04-21-2019 Gonadotropin chorionic quantitative Branavan Ragunanthan Work Phone: Start: 04-21-2019 Hemoglobin glycosylated a1c Darenavan Clarenceunanthan Work Phone: Start: 04-21-2019 Lactate dehydrogenase ldh Darenavan Ragunanthan Work Phone: Start: 04-21-2019 Procalcitonin (pct) Darenavan Clarenceunanthan Work Phone: Start: 04-21-2019 Sedimentation rate rbc automated Branava n Ragunanthan Work Phone: Start: 04-21-2019 Radiologic exam abdomen 1 view Maribell Domingo Start: 04-21-2019 Radiologic exam chest single view Maribell Domingo Start: 04-21-2019 BLOOD GAS, ARTERIAL Fahad Tillman Work Phone: Start: 04-21-2019 Radiologic exam chest single view Fahad Tillman Work Phone: Start: 04-21-2019 Ecg routine ecg w/least 12 lds w/i&r Fahad Tillman Work Phone: Start: 04-21-2019 EEG Fahad Tillman Work Phone: Start: 02-28-2019 Gluc bld gluc mntr dev cleared fda spec home use Jeanmarie Johnson MD Work Phone: Start: 02-28-2019 Gluc bld gluc mntr dev cleared fda spec home use Jeanmarie Johnson MD Work Phone: Start: 02-27-2019 Gluc bld gluc mntr dev cleared fda spec home use Jeanmarie Johnson MD Work Phone: Start: 02-27-2019 Assay of magnesium Kobi Quiles DO Work Phone: Start: 02-27-2019 BASIC METABOLIC PANEL W/ REFLEX TO MG FOR LOW K Kobi Quiles DO Work Phone: Start: 02-27-2019 Radiologic exam chest single view Kobi Marcel feliciano Work Phone: Start: 02-26-2019 Assay of magnesium Kobi Quiles DO Work Phone: Start: 02-26-2019 BASIC METABOLIC PANEL W/ REFLEX TO MG FOR LOW K Kobi Quiles DO Work Phone: Start: 02-26-2019 Radiologic exam chest single view Kobi wiggins DO Work Phone: Start: 02-25-2019 WOOD HEEL FITTER MACHINE CLINICAL BEDSIDE SWALLOW EVALUATION & TREATMENT Kobi Etta TRUONG Work Phone: Start: 02-25-2019 End: 02-25-2019 Assay of magnesium Kobi Quiles DO Work Phone: Start: 02-25-2019 BASIC METABOLIC PANEL W/ REFLEX TO MG FOR LOW K Kobi Quiles DO Work Phone: Start: 02-24-2019 Assay of lactate Haroon Jones MD Work Phone: Start: 02-24-2019 Assay of lactate Haroon Jones MD Work Phone: Start: 02-24-2019 Procalcitonin (pct) Kobi Quiles DO Work Phone: Start: 02-24-2019 Culture bacterial blood aerobic w/id isolates Williams Apple DO Work Phone: Start: 02-24-2019 STREP PNEUMONIAE ANTIGEN Haroon Jones MD Work Phone: Start: 02-24-2019 End: 02-24-2019 Smr prim src gram/giemsa stain bct fungi/cell Haroon Jones MD Work Phone: Start: 02-24-2019 End: 02-24-2019 Radiologic exam abdomen 1 view Haroon Jones MD Work Phone: Start: 02-24-2019 Assay of magnesium Kobi Quiles DO Work Phone: Start: 02-24-2019 BASIC METABOLIC PANEL W/ REFLEX TO MG FOR LOW K Kobi Quiles DO Work Phone: Start: 02-23-2019 End: 02-23-2019 EEG REPORT Zara Estrada MD Work Phone: Start: 02-23-2019 Drug screen quantitative phenytoin total Zoe Mills MD Work Phone: Start: 02-23-2019 CANNABINOID, URINE, SCREENING, CRITICAL CARE Terrell Urrutia MD Work Phone: Start: 02-23-2019 End: 02-23-2019 Assay of ammonia Williams Apple DO Work Phone: Start: 02-23-2019 Hepatic function panel Williams Beltre Work Phone: Start: 02-23-2019 BLOOD GAS, ARTERIAL Franky Hanson MD Work Phone: Start: 02-23-2019 BASIC METABOLIC PANEL W/ REFLEX TO MG FOR LOW K Kobi Quiles DO Work Phone: Start: 02-23-2019 Creatine kinase total Terrell Infante Work Phone: Start: 02-23-2019 End: 02-23-2019 Radiologic exam chest single view Junie Hanson MD Work Phone: Start: 02-23-2019 BLOOD GAS, ARTERIAL Terrell Urrutia MD Work Phone: Start: 02-23-2019 EEG Terrell Urrutia MD Work Phone: Start: 02-23-2019 RESPIRATORY CARE EVALUATION ONLY Terrell Urrutia MD Work Phone: Start: 12-07-2018 Adult depression screening assessment Gianfranco Sanchez MD Work Phone: Start: 11-07-2018 Assay of magnesium Chung Barrettt Work Phone: Start: 11-07-2018 Assay of phosphorus inorganic Chung Novak ubert Work Phone: Start: 11-07-2018 BASIC METABOLIC PANEL W/ REFLEX TO MG FOR LOW K Chung Mon Work Phone: Start: 11-07-2018 Blood count complete auto&auto difrntl wbc Chung Barrettt Work Phone: Start: 11-06-2018 Ecg routine ecg w/least 12 lds w/i&r Lety Jeyson Work Phone: Start: 11-06-2018 EXTUBATION Lety Benítez Work Phone: Start: 11-06-2018 Assay of magnesium Chung Groubert Work Phone: Start: 11-06-2018 Assay of phosphorus inorganic Chung Scarlet ubert Work Phone: Start: 11-06-2018 BASIC METABOLIC PANEL W/ REFLEX TO MG FOR LOW K Chung Groubert Work Phone: Start: 11-06-2018 Blood count complete auto&auto difrntl wbc Chung Barrettt Work Phone: Start: 11-05-2018 Ct head/brain w/o contrast material Lety Benítez Work Phone: Start: 11-05-2018 EEG REPORT Rosamaria Powell Work Phone: Start: 11-05-2018 Drug screen quantitative phenytoin total Lety Benítez Work Phone: Start: 11-05-2018 ADD ON LAB TEST Lety Benítez Work Phone: Start: 11-05-2018 BLOOD GAS, ARTERIAL Chung [employer] Work Phone: Start: 11-05-2018 Ecg routine ecg w/least 12 lds w/i&r [employer]ung [employer] Work Phone: Start: 11-05-2018 Radiologic exam chest single view Chung [employer] Work Phone: Start: 11-05-2018 Assay of lactate Chung [employer] Work Phone: Start: 11-05-2018 Blood count complete auto&auto difrntl wbc Chung [employer] Work Phone: Start: 11-05-2018 Comprehensive metabolic panel Moove In Work Phone: Start: 11-05-2018 Procalcitonin (pct) Chung [employer] Work Phone: Start: 11-05-2018 EEG Chung [employer] Work Phone: Bacteria identified in Urine by Culture Urine culture Urine culture Dr. Himanshu Sanchez Work Phone: Urine culture Dr. Himanshu Sanchez Work Phone: Viral antigen assay Dr. Ariadna Sanchez Work Phone: Viral antigen assay Dr. Ariadna Sanchez Work Phone: Viral antigen assay Dr. Ariadna Sanchez Work Phone: Dr. Himanshu Sanchez Work Phone: Plan of Treatment Date Care Activity Detail Author Start: 2034 Shingles Vaccine (1 of 2) Shingles Vaccine (1 of 2) [facility] [place], [place] Start: 02-15-2029 DTaP,Tdap,and Td Vaccines (2 - Td or Tdap) DTaP,Tdap,and Td Vaccines (2 - Td or Tdap) [facility] Start: 02-15-2029 Tetanus vaccination TETANUS [facility] Start: 11-25-2024 HPV TESTING HPV TESTING [facility] Start: 11-25-2024 PAP TESTING PAP TESTING [facility] Start: 04-05-2024 Potassium [Moles/volume] in Serum or Plasma POTASSIUM [facility] Start: 05-04-2023 Hypertension/CHF/CAD Annual BMP Blood Test Hypertension/CHF/CAD Annual BMP Blood Test [facility] Start: 05-03-2023 End: 05-03-2023 Patient encounter procedure 05/03/2023 9:00 AM EST Office Visit [facility] [address] [place] [address] Temitope Harris MD [address] [place] [address] [facility] Start: 04-06-2023 End: 04-06-2024 Echocardiography ECHOCARDIOGRAM Echocardiography Routine Status epilepticus Troponin level elevated Expected: 04/06/2023, Expires: 04/06/2024 [facility] Comment on above: Expected: 04/06/2023, Expires: Start: 10-28-2022 Influenza vaccination INFLUENZA VACCINE (#1) [facility] Start: 10-04-2022 ANNUAL PCP TEAM CHRONIC DISEASE VISIT ANNUAL PCP TEAM CHRONIC DISEASE VISIT [facility] Start: 05-03-2022 Adolescent depression screening assessment Depression Screening [facility] Start: 05-03-2022 Hepatitis C screening Hepatitis C Screening [facility] Start: 05-03-2022 HIV screening HIV Screening [facility] Start: 05-03-2022 Lipid panel Cholesterol Screening (Lipid Panel) [facility] Start: 05-03-2022 Social Influencers of Health Screening Social Influencers of Health Screening [facility] Start: 04-18-2022 Verification routine [facility] Start: 04-18-2022 Admission procedure [facility] Start: 04-14-2022 [facility] Start: 04-14-2022 Consultation [facility] Start: 04-12-2022 [facility] Start: 04-09-2022 Patient discharge [facility] Start: 04-07-2022 Assessment of risk of venous thromboembolism [facility] Start: 04-07-2022 Insertion of catheter into peripheral vein [facility] Start: 04-07-2022 Measuring intake and output [facility] Start: 04-07-2022 Oxygen therapy [facility] Start: 04-07-2022 Providing care according to standard [facility] Start: 04-07-2022 Provision of activity privileges [facility] Start: 04-07-2022 Referral to occupational therapist [facility] Start: 04-07-2022 Referral to service [facility] Start: 04-07-2022 [facility] Start: 04-07-2022 Following clinical pathway protocol [facility] Start: 04-07-2022 Verification routine [facility] Start: 04-07-2022 Admission procedure [facility] Start: 04-07-2022 Patient referral to dietitian [facility] Start: 04-01-2022 [facility] Start: 03-30-2022 [facility] Start: 03-29-2022 ANNUAL PCP TEAM CHRONIC DISEASE VISIT ANNUAL PCP TEAM CHRONIC DISEASE VISIT [facility] Start: 03-29-2022 BP CONTROLLED (<130/80) BP CONTROLLED (<130/80) [facility] Start: 03-09-2022 Patient discharge [facility] Start: 03-07-2022 [facility] Start: 03-03-2022 End: 03-03-2022 [facility] Work Phone: Start: 03-03-2022 Application of intermittent pneumatic compression device [facility] Start: 03-02-2022 Referral to occupational therapist [facility] Start: 03-02-2022 Ambulation without limitation [facility] Start: 03-02-2022 Assessment of risk of venous thromboembolism [facility] Start: 03-02-2022 Documentation procedure [facility] Start: 03-02-2022 Folic acid measurement, RBC [facility] Work Phone: Start: 03-02-2022 Incentive spirometry [facility] Start: 03-02-2022 Insertion of catheter into peripheral vein [facility] Start: 03-02-2022 Oxygen therapy [facility] Work Phone: Start: 03-02-2022 Providing care according to standard [facility] Start: 03-02-2022 Referral to gastroenterology service [facility] Start: 03-02-2022 End: 03-02-2022 Referral to service [facility] Start: 03-02-2022 Ultrasonography of abdomen Abdomen Limited [facility] Work Phone: Start: 03-02-2022 Vitamin B12 measurement [facility] Work Phone: Start: 03-02-2022 [facility] Start: 03-02-2022 Gastrointestinal pathogens panel - Stool by MIGUEL with probe detection [facility] Work Phone: Start: 03-02-2022 SARS-CoV-2 (COVID-19) Ag [Presence] in Respiratory specimen by Rapid immunoassay [facility] Work Phone: Start: 03-02-2022 Measurement of occult blood in stool specimen using immunoassay [facility] Work Phone: Start: 03-02-2022 Following clinical pathway protocol [facility] Start: 03-02-2022 Catheterization of vein [facility] Start: 03-02-2022 End: 03-02-2022 [facility] Work Phone: Start: 03-02-2022 Verification routine [facility] Work Phone: Start: 03-02-2022 Admission procedure [facility] Start: 03-02-2022 Patient referral to dietitian [facility] Start: 02-27-2022 DEPRESSION ASSESSMENT DEPRESSION ASSESSMENT [facility] Start: 02-17-2022 [facility] Work Phone: Start: 11-14-2021 Drug screen quantitative phenobarbital ASSAY OF PHENOBARBITAL [facility] Work Phone: Start: 10-28-2021 Influenza vaccination [facility] Start: 09-23-2021 Measurement of substance [facility] Work Phone: Start: 09-23-2021 Seizure precautions [facility] Work Phone: Start: 09-19-2021 [facility] Work Phone: Start: 09-16-2021 [facility] Work Phone: Start: 02-27-2021 DEPRESSION ASSESSMENT DEPRESSION ASSESSMENT [facility] Start: 02-16-2020 BP CONTROLLED (<130/80) BP CONTROLLED (<130/80) [facility] Start: 12-08-2019 Adult depression screening assessment DEPRESSION SCREENING [facility] Start: 02-16-2019 DTaP/Tdap/Td vaccine (1 - Tdap) DTaP/Tdap/Td vaccine (1 - Tdap) [facility] Start: 02-16-2019 Urine microalbumin profile DTAP,TDAP,TD (1 - Tdap) [facility] Start: 2014 Screening for malignant neoplasm of cervix [facility] Start: 2005 Cervical cancer screen Cervical cancer screen [place], [place] Start: 2005 Screening for malignant neoplasm of cervix [facility] Start: 07-03-2003 DTaP/Tdap/Td vaccine (1 - Tdap) DTaP/Tdap/Td vaccine (1 - Tdap) [place] Start: 07-03-2003 Third diphtheria, tetanus and acellular pertussis (DTaP) vaccination TDAP (ADULT) [facility] Start: 2002 HEPATITIS C SCREENING HEPATITIS C SCREENING [facility] Start: 2002 Hepatitis C screening Hepatitis C screen [facility] Start: 07-03-1999 HIV screen HIV screen [place], [place] Start: 07-03-1999 HIV screening [facility] Start: 1997 Varicella Vaccine (1 of 2 - 13+ 2-dose series) Varicella Vaccine (1 of 2 - 13+ 2-dose series) [place], [place] Start: 1996 Depression Monitoring Depression Monitoring [facility] Start: 07-03-1995 DTaP/Tdap/Td vaccine (1 - Tdap) DTaP/Tdap/Td vaccine (1 - Tdap) [facility] Work Phone: Start: 1990 Pneumococcal 0-64 years Vaccine (1 of 1 - PPSV23) Pneumococcal 0-64 years Vaccine (1 of 1 - PPSV23) [place], [place] Start: 1989 COVID-19 VACCINE (#1) COVID-19 VACCINE (#1) [facility] Start: 1989 COVID-19 VACCINE (1) COVID-19 VACCINE (1) [facility] Start: 1985 Hepatitis A Vaccines (1 of 2 - Risk 2-dose series) Hepatitis A Vaccines (1 of 2 - Risk 2-dose series) [facility] Start: 1985 Varicella vaccine (1 of 2 - 2-dose childhood series) Varicella vaccine (1 of 2 - 2-dose childhood series) [facility] Start: 01-02-1985 COVID-19 VACCINE (#1) COVID-19 VACCINE (#1) [facility] Start: 1984 HEPATITIS B (1 of 3 - 3-dose series) HEPATITIS B (1 of 3 - 3-dose series) [facility] Start: 1984 Hepatitis B vaccination HEP B VACCINE (1 of 3 - 3-dose series) [facility] Start: 1984 Hepatitis B Vaccines (1 of 3 - 3-dose series) Hepatitis B Vaccines (1 of 3 - 3-dose series) [facility] Start: 1984 Hepatitis C screening HEPATITIS C VIRUS SCREENING [facility] Alanine aminotransfe rase [Enzymatic activity/volume] in Serum or Plasma [facility] Work Phone: Albumin [Mass/volume ] in Serum or Plasma [facility] Work Phone: Alkaline phosphatase [Enzymatic activity/volume] in Serum or Plasma [facility] Work Phone: Anion gap measurement [facility] Work Phone: Aspartate aminotransferase [Enzymatic activity/volume] in Serum or Plasma [facility] Work Phone: Bacteria identified in Urine by Culture Urine Culture [facility] Work Phone: Bacteria identified in Urine by Culture Culture urine Microbiology STAT 05/03/2022 11:49 PM EST [employer] End: 11-08-2018 Basic metabolic 2000 panel Basic Metabolic Panel Lab Routine Tomorrow AM for 1 Occurrences starting 11/08/2018 until 11/08/2018 [facility] on above: Tomorrow AM for 1 Occurrences starting 0 11/08/2018 until 11/08/2018 Basic Metabolic Pane l w/ Reflex to MG Basic Metabolic Panel w/ Reflex to MG Lab Routine Daily until discontinued starting 04/22/2019, 9 completed [facility] Comment on above: Daily until discontinued starting 2019, 9 completed Bilirubin, total measurement [facility] Work Phone: Blood Gas, Arterial Blood Gas, A rterial Lab Routine 04/22/2019 3:20 AM ABELINO [facility] ELIZA GRESHAM BUN/Creatinine ratio [facility] Work Phone: Calcium [Mass/volume ] in Serum or Plasma [facility] Work Phone: Carbon dioxide, tota l [Moles/volume] in Serum or Plasma [facility] Work Phone: End: 11-08-2018 CBC CBC Lab Routine Tomorrow AM for 1 Occurrences starting 11/08/2018 until 11/08/2018 [facility] Comment on above: Tomorrow AM for 1 Occurrences starting 0 11/08/2018 until 11/08/2018 CBC auto differential CBC auto d ifferential Lab Routine Daily until discontinued starting 04/21/2019, 10 [facility] Comment on above: Daily until discontinued starting 2019, 10 completed Chloride [Moles/volu me] in Serum or Plasma [facility] Work Phone: Creatinine [Moles/vo lume] in Serum or Plasma [facility] Work Phone: End: 02-24-2019 Culture Blood #1 Culture Blood #1 Microbiology STAT One Time for 1 Occurrences starting 02/24/2019 until 02/24/2019 [facility] Work Phone: Comment on above: One Time for 1 Occurrences starting 01/28 until 02/24/2019 Culture Blood #1 Culture Blood # 1 Microbiology STAT 02/25/2019 1:00 PM EST [employer] Work Phone: ECG 12 lead ECG 12 lead ECG Routine 05/03/2022 6:25 PM EST [employer] Work Phone: End: 04-03-2023 Echocardiography ECHOCARDIOGRAM Echocardiography Routine One Time for 1 Occurrences starting 04/03/2023 until 04/03/2023 [facility] Comment on above: One Time for 1 Occurrences starting 06/2023 until 04/03/2023 Folate [Mass/volume] in Serum or Plasma [facility] Work Phone: Folic acid measureme nt, RBC [facility] Work Phone: Glucose [Mass/volume ] in Serum or Plasma [facility] Work Phone: Hematocrit [Volume Fraction] of Blood [facility] Work Phone: Hemoglobin [Mass/vol ume] in Blood [facility] Work Phone: HHN Treatment HHN Treatment Respiratory Care Routine 0600, 1000, 1400, 1800, 2200 until discontinued starting 02/23/2019 [facility] Work Phone: Comment on above: 0600, 1000, 1400, 1800, 2200 until disco ntinued starting 02/23/2019 Initiate Oxygen Ther apy Protocol [facility] [place] Comment on above: Daily until discontinued starting 2018 Daily until disconti nued starting 02/23/2019 Leukocytes [#/volume ] in Blood [facility] Work Phone: Magnesium [Mass/Vol] [facility] [place] Comment on above: Daily until discontinued starting 2019, 10 completed Mean corpuscular hemoglobin concentration determination [facility] Work Phone: Mean corpuscular hemoglobin determination [facility] Work Phone: Measurement of occul t blood in stool specimen using immunoassay [facility] Work Phone: Measurement of renal function [facility] Work Phone: [facility] Work Phone: Neutrophil count [facility] Work Phone: Neutrophil percent differential count [facility] Work Phone: End: 02-23-2019 OCCULT BLOOD X 3, STOOL OCCULT BLOOD X 3, STOOL Lab Routine One Time for 1 Occurrences starting 02/23/2019 until 02/23/2019 [facility] Work Phone: Comment on above: One Time for 1 Occurrences starting 01/28 until 02/23/2019 Patient Education [facility] Work Phone: Patient referral [facility] Work Phone: PHENobarbital [Mass/volume] in Serum or Plasma [facility] Work Phone: End: 11-08-2018 Phenytoin Level, Total Phenytoin Level, Total Lab Routine Tomorrow AM for 1 Occurrences starting 11/08/2018 until 11/08/[address] [facility] Comment on above: Tomorrow AM for 1 Occurrences starting 0 11/08/2018 until 11/08/2018 End: 04-23-2019 Phenytoin Level, Total Phenytoin Level, Total Lab Add-On One Time for 1 Occurrences starting 04/23/2019 until 04/23/2019 [facility] Comment on above: One Time for 1 Occurrences starting 03/31 until 04/23/2019 End: 04-25-2019 Phenytoin Level, Total Phenytoin Level, Total Lab Add-On One Time for 1 Occurrences starting 04/25/2019 until 04/25/2019 [facility] Comment on above: One Time for 1 Occurrences starting 03/31 until 04/25/2019 Phosphate [Mass/Vol] Phosphorus Lab Routine Daily until discontinued starting 04/21/2019, 10 completed [employer] OHELIZA Comment on above: Daily until discontinued starting 2019, 10 completed Platelets [#/volume] in Blood [facility] Work Phone: Potassium [Moles/vol ume] in Serum or Plasma [facility] Work Phone: Pulse oximetry, continuous [facility] Comment on above: Every 4hr until discontinued starting Every 4hr until disc ontinued starting 02/23/2019 Red blood cell count [facility] Work Phone: Red cell distributio n width determination [facility] Work Phone: Sodium [Moles/volume ] in Serum or Plasma [facility] Work Phone: End: 03-30-2023 Standard ECG ECG ECG Routine One Time for 1 Occurrences starting 03/30/2023 until 03/30/2023 [facility] Work Phone: Comment on above: One Time for 1 Occurrences starting 02/2023 until 03/30/2023 Topiramate [Mass/vol ume] in Serum or Plasma [facility] Work Phone: Total protein measurement [facility] Work Phone: Troponin I.cardiac [Mass/Vol] Troponin Lab Timed 04/22/2019 12:27 AM [facility] [place] Urea nitrogen [Mass/volume] in Serum or Plasma [facility] Work Phone: Urine culture Urine Culture [facility] Urine culture Urine Culture [facility] Vitamin B12 measurement [facility] Work Phone: [facility] Immunizations Immunization Date Immunization Notes Care Provider [facility] 04-19-2022 influenza, injectabl e, quadrivalent, preservative free Dr. Himanshu Sanchez MD Work Phone: [facility] 04-19-2022 influenza virus vaccine, unspecified formulation Chery Schmitz MD Work Phone: [facility] 02-12-2021 influenza, injectabl e, quadrivalent, contains preservative Katia Herrera APRN.CNP Work Phone: [facility] 12-30-2019 influenza, injectabl e, quadrivalent, contains preservative Gianfranco Sanchez MD Work Phone: [facility] 02-15-2019 tetanus and diphther ia toxoids, adsorbed, preservative free, for adult use (5 Lf of tetanus toxoid and 2 Lf of diphtheria toxoid) Haroon Piper [facility] 12-07-2018 influenza virus vaccine, unspecified formulation Haroon [place], [place] 12-07-2018 influenza, injectabl e, quadrivalent, contains preservative Gianfranco Sanchez MD Work Phone: [facility] 11-06-2018 influenza, injectabl e, quadrivalent, preservative free Lety Benítez [facility] 11-06-2018 influenza quadrivale nt split vaccine (FLUZONE;FLUARIX;FLULA MORALES;AFLURIA) injection 0.5 mL Lety Benítez [place], [place] Payers Date Payer Category Payer Self-pay [id number] 2017 Medicaid 2017 Medicaid [employer] [employer] [id number] 2017-Present [phone] [place] [id number] Medicaid [id number] 2017 Unknown [facility] xxxxxxxxxxxx 2017-Present [phone] [address] xxxxxxxxxxxx [id number] 1984 Unknown [id number] 3 1984 Unknown [id number] 1984 Unknown [id number] 1984 Unknown [id number] 1984 Unknown [id number] 1984 Unknown [id number] 1984 Unknown [id number] 1984 Unknown [id number] 1984 Unknown [id number] 1984 Unknown [id number] 1984 Unknown [id number] 1959 Medicaid [id number] Unknown [id number] Unknown [id number] Unknown [id number] Unknown [id number] Unknown [id number] Social History Date Type Detail Facility Start: 06-21-2018 End: 04-18-2022 Tobacco smoking status INIS Former smoker [facility] Work Phone: Start: 06-21-2018 Alcohol intake No [place], [place] Start: 1985 Sex Assigned At Not on file [place] Start: 06-21-2018 End: 08-29-2021 Alcohol intake Current non-drinker of alcohol (finding) [facility] Work Phone: Start: 06-23-2015 End: 12-07-2018 Tobacco use and exposure Smokeless tobacco non-user [facility] Work Phone: Start: 06-15-2020 End: 10-04-2021 Alcohol intake Lifetime non-drinker (finding) [facility] Start: 06-15-2020 End: 10-04-2021 Alcohol intake [facility] Start: 11-26-2019 History SDOH Alcohol Frequency 1 [facility] Start: 06-23-2015 History SDOH Alcohol Comment rarely [facility] Start: 02-27-2021 End: 03-29-2021 Exposure to SARS-CoV-2 (event) Yes [facility] Start: 07-29-2021 End: 04-14-2022 Tobacco smoking status NHIS Unknown if ever smoked [facility] Start: 04-02-2020 Occasional [facility] Start: 04-02-2020 Marijuana [facility] Start: 04-02-2020 With Family [facility] Start: 04-02-2020 Cigarettes [facility] Start: 1985 Sex Assigned At Female [facility] Start: 08-19-2021 End: 05-03-2022 Exposure to SARS-CoV-2 (event) Not sure [facility] Work Phone: History of tobacco use Current smoker [facility] Start: 06-06-2024 Sex Female (finding) [facility] NEGATED: Highlighted row [facility] Goals Date Patient Goal Desired Activity /State Functional Status Date Assessment Result Facility 04-09-2022 Functional status Ambulates [facility] Work Phone: 04-08-2022 Functional status Ambulates [facility] Work Phone: 04-07-2022 Functional status Rolling Walker [facility] Work Phone: 03-10-2022 Functional status Bedrest [facility] Work Phone: Mental Status Date Assessment Result Facility 04-14-2022 Cognitive function Awake;Alert;A ppropriate;Follow s Commands [facility] Work Phone: 04-12-2022 Cognitive function Awake;Alert;A ppropriate;Follow s Commands [facility] Work Phone: 04-10-2022 Cognitive function Awake;Alert [facility] Work Phone: 04-09-2022 Cognitive function Passive;Fatigued;Uncoo perative [facility] Work Phone: 04-09-2022 Cognitive function Touch/Shaking [facility] Work Phone: 04-08-2022 Cognitive function Voice/Name [facility] Work Phone: 04-01-2022 Cognitive function Awake;Alert;A ppropriate;Follow s Commands [facility] Work Phone: 03-10-2022 Cognitive function Voice/Name [facility] Work Phone: 02-17-2022 Cognitive function Awake;Alert;A ppropriate;Follow s Commands [facility] Work Phone: 11-14-2021 Cognitive function Cooperative [facility] Work Phone: 10-10-2021 Cognitive function Voice/Name [facility] Work Phone: 09-23-2021 Cognitive function Voice/Name [facility] Work Phone: 09-19-2021 Cognitive function Voice/Name [facility] Work Phone: 09-16-2021 Cognitive function Level Of Cons ciousness Awake;Appropriate;Drowsy [facility] Work Phone: 09-06-2021 Cognitive function Inappropriate;Posticta l [facility] Work Phone: 08-08-2021 Cognitive function Level Of Cons ciousness Awake;Alert;Appropriate [facility] Work Phone: 07-29-2021 Cognitive function Level Of Cons ciousness Awake;Alert;Appropriate;Follow s Commands [facility] Work Phone: Clinical Notes 02-28-2019 to 04-26-2023 Nursing Notes - Idalmis Bishop RN - 04/06/2023 3:03 PM ESTNursing Notes - Idalmis Bishop RN - 04/06/2023 3:03 PM ESTPlan of Care - Idalmis Bishop RN - 04/06/2023 3:02 PM EST Note Date & Type Note Facility 04-26-2023 Note PROCEDURE: SHOULDER LEFT COMPLETE, 04/26/2023 8:00 AM EST CLINICAL INDICATIONS: Left shoulder pain. COMPARISON: None. TECHNIQUE: Left shoulder, 2 views. FINDINGS: The bones are normal in density. Mild glenohumeral osteoarthrosis is seen. There is possible remote traumatic deformity of the lateral clavicle, osseous union. Acute osseous pathology is not evident. Chest wall abnormality is not evident. Regional soft tissues normal. IMPRESSION: 1. Mild osteoarthrosis. 2. 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 3. No acute osseous pathology. [facility] 04-06-2023 Nurse Note AVS reviewed with patient. Patient acknowledges understanding of discharge instructions and denies questions at this time. PIV removed per policy. SHEYLA faxed to the facility and report was given. Idalmis Felix RN [facility] 04-06-2023 Miscellaneous Notes AVS reviewed with patient. Patient acknowledges understanding of discharge instructions and denies questions at this time. PIV removed per policy. SHEYLA faxed to the facility and report was given. Idalmis Felix RN Problem: Patient Care Overview Goal: Plan of Care Review Outcome: Adequate for Discharge Goal: Individualization & Mutuality Outcome: Adequate for Discharge Goal: Discharge Needs Assessment Outcome: Adequate for Discharge Goal: Interdisciplinary Rounds/Family Conf Outcome: Adequate for Discharge Problem: Nutrition, Enteral (Adult) Goal: Signs and Symptoms of Listed Potential Problems Will be Absent, Minimized or Managed (Nutrition, Enteral) Description: Signs and symptoms of listed potential problems will be absent, minimized or managed by discharge/transition of care (reference Nutrition, Enteral (Adult) CPG). Outcome: Adequate for Discharge Problem: Mobility, Physical Impaired (Adult) Goal: Identify Related Risk Factors and Signs and Symptoms Description: Related risk factors and signs and symptoms are identified upon initiation of Human Response Clinical Practice Guideline (CPG) Outcome: Adequate for Discharge Goal: Enhanced Mobility Skills Description: Patient will demonstrate the desired outcomes by discharge/transition of care. Outcome: Adequate for Discharge Goal: Enhanced Functionality Ability Description: Patient will demonstrate the desired outcomes by discharge/transition of care. Outcome: Adequate for Discharge BEHAVIORAL EMERGENCY RESPONSE TEAM (ERIN) RN NOTE 04/06/2023 Mary Claudio : 1985 Called to see patient by Trisha BANERJEE who reports pt has been screaming and is restless, anxious, and frustrated with being in the hospital. On arrival, pt had calmed and RN was providing care. This RN introduced self and provided education on the role of ERIN. Pt explained that she was frustrated with being stuck in a room and requested to take a walk with staff. Pt was brought a coloring book and word-search book and pt expressed thankfulness and states, I love word-searches. DEVELOPMENT COACH and bedside RN assisted pt to ambulate around the unit. No further needs noted for the ERIN at this time. Pt did not appear to be in distress. Call ERIN as needed if/when behavioral or emotional issues arise. ERIN is available daily between [phone]. Robby SIMMONS, RN- ERIN Pager: [phone] ERIN Phone: [phone] Neurology plan of care: Notified that the patient had a 30 second generalized seizure with prodrome of being agitated and feeling hot; seizure included loss of bladder and bowel, the patient was post ictal afterward. No rescue medications were given. Recommend: - increase keppra to 1.5g BID at this time - continue PHB 32.4 mg/48.6 mg - continue gabapentin 400 mg q8h - referral to [facility] epilepsy clinic on discharge Discussed with Dr. Martínez. Nithya Judd MD Neurology, PGY-4 Pager #[phone] BEHAVIORAL EMERGENCY RESPONSE TEAM (ERIN) NOTE 04/05/2023 Mary Claudio : 1985 Called to see patient by Rex BANERJEE for patient agitated and yelling. She is stating she is hot and wants to leave her room. RN at bedside attempting to assist patient. On [facility] arrival to bedside primary RN reports patient was screaming and upset, and then began to have what appeared to be a seizure. She had soiled herself during and staff were in room assisting with getting patient cleaned up. During this process patient begins to again yell that she is hot and wants to go outside. Patient eventually agrees to allow herself be cleaned and have a fresh gown put on before taking a walk in the barber. Thermostat in room was adjusted to 68 degrees per her complaint that room was too hot. Patient is able to ambulate in hallway with assistance from RN, gait belt, and walker. Staff followed her with a chair in case it was needed. Patient states she does not want to go back in her room at this time. When asked why the only reasoning she can give is, I'm hot. Patient is agreeable to sitting in reclining chair in hallway outside of her door. She is calmer while sitting in barber, and begins to appear drowsy after a short time. Pillow and sheet provided for comfort. Recommendations/plan include: Patient may benefit from brief frequent checks and/or having time to sit in hallway where she can see staff. She hints that she does not like being alone in her room, although she does not answer when asked if this was a factor. The Behavioral Emergency Response Team is available [phone] every day. Please use ERIN as a resource for patient as needed. Report given to Rex BANERJEE. ERIN Pager: [phone] ERIN Overnight Call: Previous Progress Notes and/or H&P Reviewed. Notified of MRI brain results in . IMPRESSION IMPRESSION: 1. Asymmetric volume loss involving the left cerebral hemisphere and cerebellar volume loss involving the left cerebellar hemisphere, could relate to Hpga-Hlvkkjuq-Nmihgj syndrome given asymmetric thickening of left parietal bone. Other considerations would include Donald encephalitis and sequelae of long-standing epilepsy. 2. 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 3. Few nonspecific FLAIR hyperintensities in the periventricular and cortical white matter and the posterior fossa. Differential consideration include sequelae of remote demyelination, other infectious/inflammatory insults as well as chronic microvascular ischemic disease. Neurological exam is stable with left upper extremity weakness. Defer to Neurology, we will need to discuss. Patient was transferred out of [facility] 04/04 . Not sure if needs a new formal neurology consult. Page neuro on-call Addendum On-call Neurology requested to place a routine consult MRI looks stable from previous. Problem: Patient Care Overview Goal: Plan of Care Review Outcome: Ongoing Goal: Individualization & Mutuality Outcome: Ongoing Goal: Discharge Needs Assessment Outcome: Ongoing Goal: Interdisciplinary Rounds/Family Conf Outcome: Ongoing Problem: Nutrition, Enteral (Adult) Goal: Signs and Symptoms of Listed Potential Problems Will be Absent, Minimized or Managed (Nutrition, Enteral) Description: Signs and symptoms of listed potential problems will be absent, minimized or managed by discharge/transition of care (reference Nutrition, Enteral (Adult) CPG). Outcome: Ongoing Problem: Mobility, Physical Impaired (Adult) Goal: Identify Related Risk Factors and Signs and Symptoms Description: Related risk factors and signs and symptoms are identified upon initiation of Human Response Clinical Practice Guideline (CPG) Outcome: Ongoing Goal: Enhanced Mobility Skills Description: Patient will demonstrate the desired outcomes by discharge/transition of care. Outcome: Ongoing Goal: Enhanced Functionality Ability Description: Patient will demonstrate the desired outcomes by discharge/transition of care. Outcome: Ongoing Problem: PT - Mobility Goal: Ambulation - Patient will ambulate 150 feet with supervision and wheeled walker to improve ability to safely navigate home and community. Outcome: Progressing Toward Goal Problem: PT - Transfers Goal: Supine <-> Sit Transfers - Patient will perform supine to/from sit transfers with modified independence and with use of hospital bed features in order to improve functional mobility and safety. Outcome: Progressing Toward Goal Goal: Stand/Squat Pivot Transfers - Patient will perform stand pivot transfer to/from bed/chair/commode with supervision and wheeled walker in order to improve functional mobility and safety. Outcome: Progressing Toward Goal I assumed care of this patient from offgoing provider Dr. Fagan at 0700 today, I have reviewed relevant documentation, test results, I have examined the patient and discussed plan of care with bedside nurse and relevant consultants. Updates to plan of care are as follows: Awaiting MRI, TTE per recs Complaining of headache, given tylenol and heat packs for relief, mental status overall improved OSH cultures 1/2 positive for p. Acnes. Potentially contaminant, I do not see record of indwelling hardware to cause PHI (not found on MRI screen XR either), given this can be associated with meningitis and patient had prolonged NCCU stay for status with unclear trigger will verify with ID whether further workup for this is indicated. Updated guardian Trina Ren regarding above. Notified MD Yasmin that OSH hospital this patient came from called and reported 1 of 2 cultures on 03/29 had propionibacterium acnes growing. Val Mendoza RN Hospital Medicine Transfer Note Patient: Mary Claudio, : 1985, Impression / Plan Mary Claudio is a 37 y.o. female with PMH epilepsy, cognitive impairment (Symc-Hyehtvkl-Iejyks Syndrome) presenting initially to OSH for status epilepticus, transferred to [facility] for further management. 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 - initially required intubation, extubated 04/03 - continue maintenance AED w/ keppra 1250mg BID, phenobarb 32.4mg qam + 48.6mg at bedtime - recheck phenobarb level 04/04 - MRI brain pending - no seizures on cEEG (03/30 - 04/01), discontinued - outpatient referral to neuro placed LUE weakness - neuro checks - f/up MRI brain Elevated trop ?Cardiomyopathy - elevated trop w/o delta at admission, possibly 2/2 critical illness, status epilepticus - f/up echo ordered in NCCU (pt reportedly w/ possible hx of cardiomyopathy?) - echo in 02/2020 w/ EF 59% Constipation - bowel regimen AHRF 2/ status epilepticus, resolved - extubated 04/03 Depression/anxiety: cont sertraline HTN: continue home amlodipine, spironolactone; home lasix held; titrate as needed, PCP follow-up GERD: cont PPI Complexity. Hypocalcemia - Continue to monitor and replete. Obesity Body mass index is 34.05 kg/m . - Follow with PCP for dietary and lifestyle modifications. DVT prophylaxis: lovenox Anticipated disposition: pending course Code status: FULL Interval History / Subjective Patient initially presented to OSH w/ status epilepticus requiring intubation, transferred to [facility]. Loaded w/ keppra and phenobarb. EEG at [facility] w/o evidence of seizures. Patient extubated on 04/03, transferred to floor. Exam w/ some concern for left arm weakness, MRI pending. Objective Temp: [98 F (36.7 C)-98.4 F (36.9 C)] 98 F (36.7 C) Pulse (Heart Rate): [67-92] 72 Resp Rate: [11-24] 18 BP: (119-155)/(60-98) 140/63 O2 Sat (%): [92 %-100 %] 95 % Physical Exam Gen: Alert, NAD ENT: MMM Resp: normal effort Cardio: No KENDALL GI: S/NT/ND Neuro: moving all extremities spontaneously Psych: appropriate affect and cognition Data Review Bun/Creat/Cl/CO2/Glucose: --/--/--/--/103 (04/03 1126) Problem: PT - Mobility Goal: Ambulation - Patient will ambulate 150 feet with supervision and wheeled walker to improve ability to safely navigate home and community. Outcome: Ongoing Problem: PT - Transfers Goal: Supine <-> Sit Transfers - Patient will perform supine to/from sit transfers with modified independence and with use of hospital bed features in order to improve functional mobility and safety. Outcome: Ongoing Goal: Stand/Squat Pivot Transfers - Patient will perform stand pivot transfer to/from bed/chair/commode with supervision and wheeled walker in order to improve functional mobility and safety. Outcome: Ongoing Problem: OT - ADLs Goal: Grooming - Patient will complete grooming in standing with contact guard assistance x5 min for improved ability to safely complete ADLs. Outcome: Ongoing Goal: Toileting - Patient will complete toileting task with minimal assistance and adaptive equipment as needed for improved ability to safely complete self-care activities. Outcome: Ongoing Problem: OT - Transfers Goal: Transfers Sit/Stand - Patient will demonstrate good safety awareness during sit to/from stand functional transfer with contact guard assistance and wheeled walker to demonstrate safe functional transfers. Outcome: Ongoing Problem: OT - Endurance Goal: Endurance Functional Mobility - Patient will complete distance needed to access restroom with no greater than 1 rest breaks and ww and CGA for improved tolerance to safely complete I/ADL's Outcome: Ongoing Problem: OT - Cognition Goal: Cognition Simple ADL - Patient will demonstrate improved cognition, completing simple ADL task for 15 minutes with no greater than min cues required to maintain attention. Outcome: Ongoing Problem: OT - Strength/ROM Goal: Neuro Re-education - Patient will participate in neuro re-ed of left upper extremity with supervision and 100% accuracy for improved functional use in ADLs. Outcome: Ongoing Problem: Patient Care Overview Goal: Plan of Care Review Outcome: Progressing Toward Goal Goal: Individualization & Mutuality Outcome: Progressing Toward Goal Goal: Discharge Needs Assessment Outcome: Progressing Toward Goal Goal: Interdisciplinary Rounds/Family Conf Outcome: Progressing Toward Goal Problem: Ventilation, Mechanical Invasive (Adult) Goal: Signs and Symptoms of Listed Potential Problems Will be Absent, Minimized or Managed (Ventilation, Mechanical Invasive) Description: Signs and symptoms of listed potential problems will be absent, minimized or managed by discharge/transition of care (reference Ventilation, Mechanical Invasive (Adult) CPG). Outcome: Completed Problem: Nutrition, Enteral (Adult) Goal: Signs and Symptoms of Listed Potential Problems Will be Absent, Minimized or Managed (Nutrition, Enteral) Description: Signs and symptoms of listed potential problems will be absent, minimized or managed by discharge/transition of care (reference Nutrition, Enteral (Adult) CPG). Outcome: Progressing Toward Goal Problem: Mobility, Physical Impaired (Adult) Goal: Identify Related Risk Factors and Signs and Symptoms Description: Related risk factors and signs and symptoms are identified upon initiation of Human Response Clinical Practice Guideline (CPG) Outcome: Progressing Toward Goal Goal: Enhanced Mobility Skills Description: Patient will demonstrate the desired outcomes by discharge/transition of care. Outcome: Progressing Toward Goal Goal: Enhanced Functionality Ability Description: Patient will demonstrate the desired outcomes by discharge/transition of care. Outcome: Progressing Toward Goal Problem: Patient Care Overview Goal: Plan of Care Review Outcome: Progressing Toward Goal Goal: Individualization & Mutuality Outcome: Progressing Toward Goal Goal: Discharge Needs Assessment Outcome: Progressing Toward Goal Goal: Interdisciplinary Rounds/Family Conf Outcome: Progressing Toward Goal Problem: Ventilation, Mechanical Invasive (Adult) Goal: Signs and Symptoms of Listed Potential Problems Will be Absent, Minimized or Managed (Ventilation, Mechanical Invasive) Description: Signs and symptoms of listed potential problems will be absent, minimized or managed by discharge/transition of care (reference Ventilation, Mechanical Invasive (Adult) CPG). Outcome: Progressing Toward Goal Problem: Nutrition, Enteral (Adult) Goal: Signs and Symptoms of Listed Potential Problems Will be Absent, Minimized or Managed (Nutrition, Enteral) Description: Signs and symptoms of listed potential problems will be absent, minimized or managed by discharge/transition of care (reference Nutrition, Enteral (Adult) CPG). Outcome: Progressing Toward Goal Problem: Nutrition, Enteral (Adult) Goal: Signs and Symptoms of Listed Potential Problems Will be Absent, Minimized or Managed (Nutrition, Enteral) Description: Signs and symptoms of listed potential problems will be absent, minimized or managed by discharge/transition of care (reference Nutrition, Enteral (Adult) CPG). Outcome: Ongoing Nutrition Recommendations and Plan of Care: Initiate TF of Vital AF 1.2 at 10 mL/hr. Increase by 10 mL/hr q4 hours as tolerated until goal rate of 55 mL/hr is achieved to provide 1320 mL total volume, 1584 kcal (25 kcal/kg adj IBW), and 99 g PRO (1.9 g/kg IBW). Free water per primary team. Recommend minimum of 30 mL q4 hours x 6 daily to maintain tube patency. Monitor TF intake, TF tolerance, GI function, skin integrity, weight changes, and labs. RD to continue to follow. Call from EMU: - pt having R epileptiform discharges on cEEG, associated with rhythmic activity, however this activity appears to be stimulus induced. Unclear if true seizures. --> Discussed with Dr. Schmitz. Will continue to monitor for now, hold on any medication changes. On admission to [facility], from outside facility a dual RN initial assessment of skin condition was performed by Destiny Ley RN and Sandy Whatley. Skin Assessment: Skin not within defined limits. - Wound(s) identified: Yes - Photo taken and uploaded into notes in IHIS: Yes Nikolai Score: 14 LDA Added:Yes Destiny Ley RN documented in this encounter [facility] 04-06-2023 Plan of care note Problem: Patient Care Overview Goal: Plan of Care Review Outcome: Adequate for Discharge Goal: Individualization & Mutuality Outcome: Adequate for Discharge Goal: Discharge Needs Assessment Outcome: Adequate for Discharge Goal: Interdisciplinary Rounds/Family Conf Outcome: Adequate for Discharge Problem: Nutrition, Enteral (Adult) Goal: Signs and Symptoms of Listed Potential Problems Will be Absent, Minimized or Managed (Nutrition, Enteral) Description: Signs and symptoms of listed potential problems will be absent, minimized or managed by discharge/transition of care (reference Nutrition, Enteral (Adult) CPG). Outcome: Adequate for Discharge Problem: Mobility, Physical Impaired (Adult) Goal: Identify Related Risk Factors and Signs and Symptoms Description: Related risk factors and signs and symptoms are identified upon initiation of Human Response Clinical Practice Guideline (CPG) Outcome: Adequate for Discharge Goal: Enhanced Mobility Skills Description: Patient will demonstrate the desired outcomes by discharge/transition of care. Outcome: Adequate for Discharge Goal: Enhanced Functionality Ability Description: Patient will demonstrate the desired outcomes by discharge/transition of care. Outcome: Adequate for Discharge [facility] 04-06-2023 History of Present illness Narrative Occupational Therapy Attempt Note 04/06/2023 OT Therapy Completed: Attempted Attempted Reason: Other (see comments) (Pt is prepping for discharge later today) Ruchi Quezada OT Time In: 1327 Time Out: 1327 Total Visit Time: 0 minutes Total Treatment Time (skilled, billable minutes): 0 minutes Social Work Final Discharge Plan and Transportation Final Discharge Planning Discharge Disposition: [facility]-Way Facility Services at Discharge: Half-Way, Physical Therapy, Occupational Therapy Community Agency Name(s) For Handoff: [facility] Phone For Handoff: Fax For Handoff: Selected Continued Care - Admitted Since 03/30/2023 Destination Coordination complete. Service Provider Selected Services Address Phone Fax Patient Preferred [facility] [address] [facility] [id number] [phone] -- Plan [facility]: [facility] Patient/Family In Agreement With Plan: yes Transportation Transport Request Mode of Transfer: BLS Name of Discharge Transport Company: [employer] [facility] ETA: [phone] Patient medically stable for discharge per physician/medical team. SW confirmed with SNF that they are able to accept the patient this date. Insurance pre-certification is not required. SW arranged transport as indicated above, ETA is [phone]. The patient has no specialized equipment needs for transportation. AVS/SHEYLA completed from a SW standpoint. SW updated the bedside RN, CCM, facility and patient/employee representative of the discharge plan and transport time. Patient/Rate Analyst remain in agreement with the discharge plan. Bedside RN to call report and fax AVS/SHEYLA. Ambulance form left at the nuclear unit operator desk with a request for a printed transfer report. Discharge Instruction for Bedside RN: 1. Confirm the Ambulatory Order is in the SHEYLA. 2. Print the SHEYLA and AVS. 3. Print the Discharge Summary for facilities (if available). 4. Fax SHEYLA, AVS and Discharge Summary (when applicable) to agency or facility. 5. Call the agency or facility for report. SHAUN Wiggins Mastic Man [facility] 8th floor [phone] [facility] Medicine Progress Note Patient: Mary Claudio, : 1985, Impression / Plan Mary Claudio is a 37 y.o. female with PMH epilepsy, cognitive impairment (Qrul-Sydwmvtb-Whlzvw Syndrome) presenting initially to OSH for status epilepticus, transferred to [facility] for further management. 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 - initially required intubation, extubated 2/ - continue maintenance AED w/ keppra 1250mg BID, phenobarb 32.4mg qam + 48.6mg at bedtime - recheck phenobarb level 04/04 - MRI brain pending - no seizures on cEEG (03/30 - 04/01), discontinued - outpatient referral to neuro placed - Additional 30 second generalized seizure today with prodrome, loss of bladder/bowel continence, post ictal confusion with agitation, able to redirect to baseline -Notified neuro of repeat seizure episode, follow up additional recommendations LUE weakness - neuro checks - MRI brain with expected findings due to known chronic condition per neurology - Overall improved, may be partially exacerbated by recent illness with status epilepticus now improved Elevated trop ?Cardiomyopathy - elevated trop w/o delta at admission, possibly 2/2 critical illness, status epilepticus - f/up echo ordered in NCCU (pt reportedly w/ possible hx of cardiomyopathy?) - echo in 02/2020 w/ EF 59% Constipation [facility] status epilepticus, resolved - extubated 04/03 Depression/anxiety: cont sertraline HTN: continue home amlodipine, spironolactone; home lasix held; titrate as needed, PCP follow-up GERD: cont PPI Complexity. Hypocalcemia - Continue to monitor and replete. Obesity Body mass index is 34.05 kg/m . - Follow with PCP for dietary and lifestyle modifications. DVT prophylaxis: lovenox Anticipated disposition: pending course Code status: FULL Complexity. Hypokalemia - Continue to monitor and replete. Hypocalcemia - Continue to monitor and replete. Obesity Body mass index is 34.05 kg/m . - Follow with PCP for dietary and lifestyle modifications. Any conditions listed below are present on admission unless otherwise specified. . DVT prophylaxis with lovenox Anticipated Disposition: return to F Code status is Full Code Interval History / Subjective Doing well this morning, headache improved Around 3:30 had sudden change in behavior- complaining of feeling hot, upset, followed by sudden period of unreponsiveness with generalized movement and loss of bowel/bladder continence, confused and agitated afterwards but able to calm with redirection from nursing staff and ERIN team. Objective Temp: [97.6 F (36.4 C)-98.3 F (36.8 C)] 98.3 F (36.8 C) Pulse (Heart Rate): [71-92] 92 Resp Rate: [15-18] 18 BP: (92-171)/(50-93) 138/86 O2 Sat (%): [95 %-99 %] 96 % Physical Exam Gen: A, A, NAD ENT: MMM Resp: CTA bilat, normal effort Cardio: RRR, normal S1, S2, No KENDALL GI: S/NT/ND, NABS Neuro/Psych: Ox3, appropriate affect and cognition Post seizure episode- Upset and tearful, able to redirect with reassurance and answer questions appropriately, moves all extremities equally Data Review WBC/Hgb/Hct/Plts: 7.22/12.3/38.5/175 (04/05 53) Na/K+/Phos/Mg/Ca: 137/3.4/3.6/1.6/-- (04/05 53) Bun/Creat/Cl/CO2/Glucose: 6/0.47/103/22/82 (04/05 53) Summary: Echo Attempted echo. The patient was very agitated and screaming at staff. Will attempt echo at a better time, Acute Physical Therapy Treatment Prior to Admission [facility] score(s): PRIOR LEVEL AM-PAC Mobility Raw Score: 23 Current AM-PAC score(s): CURRENT AM-PAC Mobility Raw Score: 16 Based on the above AM-PAC score(s) and PT clinical judgment, patient is a good candidate for discharge to [facility] Facility return Barriers to discharge home: Patient needs assistance with functional mobility (Patient previously at SNF) Mobility equipment available at home: ADL equipment available at home: Equipment needed for discharge: to be determined Current therapy frequency recommendation in acute: Therapy Frequency: 3 times a week Precautions and Weightbearing Status: Existing Precautions/Restrictions: fall Patient Safety Communication Prior to Visit: Nursing Subjective: Pt was agreeable to participate in therapy session Pain: General Pain Documentation (Adult, OB, Peds) Presence of Pain: denies pain/discomfort Presence of Pain Score (Auto-calculated): 0 Objective/Observation: Vitals/Vitals Responses to Treatment: WFL O2 Device: room air Cognition Overall Cognitive Status: Impaired Arousal/Alertness: Delayed responses to stimuli Orientation Level: Oriented to person, Oriented to place Following Commands: Follows one step commands with repetition, Follows one step commands with increased time Safety Judgment: Decreased awareness of need for assistance, Decreased awareness of need for safety Extremity Assessments: See PT Evaluation flowsheet for Extremity Measurement updates. Skin and Edema: Balance: Sitting Balance Static Sitting-Level of Assistance: Standby Dynamic Sitting-Level of Assistance: Contact guard Standing Balance Static Standing-Level of Assistance: Contact guard Standing-Balance Support: Gait belt, Bilateral hand held assist, 2 wheeled walker Skilled Rationale: Hand placement, Sequencing, Positioning Standing Balance Skilled Intervention/Details: Pt completed standing multiple times throughout session with contact guard assist. Pt required cues for full extension and midline posture Mobility Assessment/Intervention: Supine to Sit Mobility [place] Level: Supine->Sit: stand-by assist Bed Features/Set-up: Supine->Sit: Head of bed elevated, Use of bed rail Skilled Rationale: Sequencing, Hand placement, Verbal cues, Positioning Skilled Intervention/Details: Supine->Sit: cues for safety Transfer Assessment/Intervention: Sit to Stand Transfer [place] Level: Sit->Stand: contact guard assist Assistive Device: Sit->Stand: gait belt, 2 wheeled walker Skilled Rationale: Positioning, Sequencing, Hand placement, Verbal cues Skilled Intervention/Details: Sit->Stand: Pt educated in multiple sit to stand transfers throughout out session with contact guard assist. Pt required cues for proper hand placement and eccentric quad control when sitting. Bed-Chair Transfer [place] Level: Bed<->Chair: minimum assist (75% patient effort) Assistive Device: Bed<->Chair: gait belt Skilled Rationale: Positioning, Sequencing, Hand placement, Verbal cues Skilled Intervention/Details: Bed<->Chair: Pt completed x 2-3 steps from bed to chair Gait/Functional Mobility Assessment/Intervention: Gait Assessment [place] Level: Gait: minimum assist (75% patient effort) Physical Assist: Gait: chair follow Assistive Device: Gait: gait belt, 2 wheeled walker Ambulation Distance (Feet): 100 Gait Deviations Identified: decreased stevie, decreased gait speed, decreased heel strike, decreased step length, decreased stride length, decreased weight shifting Gait Skilled Rationale: verbal, upright posture, increase step length Skilled Intervention/Details - Gait: Pt educated in gait training x 100 feet with WW and min assist. Pt requried frequent cues for safety and clearance of left LE during functional mobility. Pt with deviated path toward right frequently running into objects. Pt required extensive assist with WW Stairs Assessment/Intervention: Outcome Score(s): CURRENT AM-[facility] Basic Mobility Inpatient Short Form Turning over in bed: 3 - A Little Assistance Sitting/standing from chair: 3 - A Little Assistance Moving from lying on back to sittin - A Little Assistance Moving to and from bed to chair: 3 - A Little Assistance Walk in hospital room: 3 - A Little Assistance Climbing 3-5 steps with a railin - Total Assistance CURRENT [facility] Mobility Raw Score: 16 CURRENT [facility] Mobility Functional Limitation/Modifier: 54.16% Currently Impaired in Basic Mobility - CK Interventions: Assessment & Plan: Pt making good progress toward therapy goals, improved balance/endurance and gait distance Patient Instruction/Education this session: role of PT and PT Plan of care Plan for next session: Progress gait training distance and standing balance Acute PT Goals Plan of Care by Matthew Edward PT at 04/04/2023 3:00 PM Version 1 of 1 Problem: PT - Mobility Goal: Ambulation - Patient will ambulate 150 feet with supervision and wheeled walker to improve ability to safely navigate home and community. Outcome: Progressing Toward Goal Problem: PT - Transfers Goal: Supine <-> Sit Transfers - Patient will perform supine to/from sit transfers with modified independence and with use of hospital bed features in order to improve functional mobility and safety. Outcome: Progressing Toward Goal Goal: Stand/Squat Pivot Transfers - Patient will perform stand pivot transfer to/from bed/chair/commode with supervision and wheeled walker in order to improve functional mobility and safety. Outcome: Progressing Toward Goal PT treatment consisted of the following to progress towards the above goal(s): PT Evaluation and Treatment Time Therapeutic Activity Time Entry: 12 Gait Training Time Entry: 12 Treating Therapist: Matthew Edward PT Additional Details: PT Co-Eval/Treatment Information Co-evaluation/co-treatment performed?: No simultaneous skilled care performed PPE used during patient interaction: facemask, gloves Patient location at end of session: chair Alarms on at end of session: chair alarm Needs in reach. Time In: 1420 Time Out: 1444 Total Visit Time: 24 minutes Total Treatment Time (skilled, billable minutes): 24 minutes Upon discontinuation of Acute Care Physical Therapy Services or patient discharge from the hospital this note represents the current Physical Therapy Discharge Summary. Placement Plan Expected Discharge Date: TBD Referred Level of Care: SNF Barriers: transportation Current Referrals and Status 1. [facility]- accepted and reserved Pt has a guardian and plans to return to the [facility]. SHAUN Conway Neuro Critical Care Supervisor [employer] Available by secure chat Acute Physical Therapy Evaluation Prior to Admission AMPA score(s): PRIOR LEVEL AM-PAC Mobility Raw Score: 23 Current AM-PAC score(s): CURRENT AM-PAC Mobility Raw Score: 11 Based on the above AM-PAC score(s) and PT clinical judgment, patient is a good candidate for discharge to [facility] Facility return Barriers to discharge home: Patient needs assistance with functional mobility (Patient previously at SNF) Mobility equipment available at home: ADL equipment available at home: Equipment needed for discharge: to be determined Current therapy frequency recommendation in acute: Therapy Frequency: 3 times a week Activity Recommendations for outside of rehab session: OOB to chair for meals, x2 assist Precautions and Weightbearing Status: Existing Precautions/Restrictions: no known precautions/restrictions Patient Safety Communication Prior to Visit: Nursing Subjective: Patient supine in bed upon arrival and agreeable to therapy. Pain: General Pain Documentation (Adult, OB, Peds) Presence of Pain: complains of pain/discomfort Pain Location: neck DVPRS (Defense and Veterans Pain Rating Scale) DVPRS: Rest: 5- moderate pain DVPRS: Activity: 5- moderate pain Home Setting Residence: Care Home Lives With: facility resident First floor setup: bedroom, grab bars, walk-in shower Number of stairs to enter home: 0 Home Environment Details: Patient lives in SNF at baseline. Per SNF, patient was modified independent/supervision with mobility with walker. Previous Level of Function Bed Mobility/Transfers: independent Ambulation Skills: needs device Assistive Device: 2 wheeled walker Prior Level of Function Details: Lives at [facility] and was modified independent/supervision for mobility within facility. Objective/Observation: Vitals/Vitals Responses to Treatment: No adverse reactions noted throughout session. O2 Device: room air Cognition Overall Cognitive Status: Impaired Arousal/Alertness: Delayed responses to stimuli Orientation Level: Oriented to person, Oriented to place Extremity Assessments: RLE Assessment RLE Assessment: Within Functional Limits, Strength WFL LLE Assessment LLE Assessment: Within Functional Limits, Strength WFL Sensation Overall Sensation: Intact Mobility Assessment: Rolling/Turning Mobility [place] Level: Rolling/Turning: minimum assist (75% patient effort) Physical Assist: Rolling/Turnin person assist Bed Features/Set-up: Rolling/Turning: Head of bed elevated, Use of bed rail Skilled Rationale: Verbal cues, Hand placement, Sequencing Supine to Sit Mobility [place] Level: Supine->Sit: minimum assist (75% patient effort) Physical Assist: Supine->Sit: 2 person assist Bed Features/Set-up: Supine->Sit: Head of bed elevated Skilled Rationale: Verbal cues, Hand placement, Sequencing, Initiation and execution of task Balance: Sitting Balance Static Sitting-Level of Assistance: Contact guard Dynamic Sitting-Level of Assistance: Minimum assistance Skilled Rationale: Verbal cues, Positioning, Hand placement, Full extension to upright positioning/posture, Finding/maintaining midline positioning Standing Balance Static Standing-Level of Assistance: Moderate assistance, 2-person assist Dynamic Standing-Level of Assistance: Moderate assistance, 2-person assist Standing-Balance Support: Gait belt, Bilateral hand held assist Skilled Rationale: Verbal cues, Sequencing, Hand placement, Positioning, Full extension to upright positioning/posture, Facilitate anterior shift, Cues for increased safety Transfer Assessment: Sit to Stand Transfer [place] Level: Sit->Stand: moderate assist (50% patient effort) Physical Assist: Sit->Stand: 2 person assist Assistive Device: Sit->Stand: gait belt, hand held assist Skilled Rationale: Verbal cues, Hand placement, Positioning, Sequencing, Facilitate anterior shift, Full extension to upright positioning/posture, Finding/maintaining midline positioning Stand to Sit Transfer [place] Level: Stand->Sit: moderate assist (50% patient effort) Physical Assist: Stand->Sit: 2 person assist Assistive Device: Stand->Sit: gait belt, armed chair Skilled Rationale: Verbal cues, Controlled descent for sitting, Sequencing Gait/Functional Mobility: Gait Assessment [place] Level: Gait: moderate assist (50% patient effort) Physical Assist: Gait: 2 person assist Assistive Device: Gait: gait belt, hand held assist Ambulation Distance (Feet): 3 (bed to chair) Gait Deviations Identified: decreased stevie, decreased gait speed, decreased stride length, flexed posture, increased postural sway Gait Skilled Rationale: verbal, upright posture, increase step length, improve foot placement, increase foot clearance Stairs: Outcome Score(s): CURRENT [facility] Basic Mobility Inpatient Short Form Turning over in bed: 2 - A Lot of Assistance Sitting/standing from chair: 2 - A Lot of Assistance Moving from lying on back to sittin - A Lot of Assistance Moving to and from bed to chair: 2 - A Lot of Assistance Walk in hospital room: 2 - A Lot of Assistance Climbing 3-5 steps with a railin - Total Assistance CURRENT [facility] Mobility Raw Score: 11 CURRENT [facility] Mobility Functional Limitation/Modifier: 72.57% Currently Impaired in Basic Mobility - CL Interventions: Assessment & Plan: Patient was admitted for Status epilepticus [G40.901] with intubation on 03/30/23 and extubated on 04/02/23 and seen for therapy evaluation related to decreased functional mobility and ambulation with increased risk for falls. Exam findings include impairments in: Balance, Transfers, Gait/Locomotion, Aerobic capacity/endurance. These impairments contribute to functional limitations including Decreased ambulation distance/endurance, Increased fall risk, Limited standing tolerance, Difficulty with bed mobility, Difficulty with transfers, Decreased functional mobility. Patient presents with decreased functional mobility with increased risk for falls requiring increased assist. Patient would benefit from PT to improve functional independence and mobility to allow for improved quality of life. Current clinical presentation is Evolving - changing/inconsistent clinical characteristics (Moderate). Patient history factors impacting Plan Of Care include PLOF and impaired cognition.. Patient will benefit from skilled physical therapy to address these impairments, functional limitations, and participation restrictions and has good rehab potential to achieve therapy goals. Planned Therapy Interventions: balance training, bed mobility training, endurance, functional activity tolerance, gait training, neuromuscular re-education, transfer training Patient Instruction/Education this session: Educated on role of PT and PT plan of care Plan for next session: gait training and progress standing balance Acute PT Goals Plan of Care by Audie Garg PT at 04/03/2023 12:27 PM Version 1 of 1 Problem: PT - Mobility Goal: Ambulation - Patient will ambulate 150 feet with supervision and wheeled walker to improve ability to safely navigate home and community. Outcome: Ongoing Problem: PT - Transfers Goal: Supine <-> Sit Transfers - Patient will perform supine to/from sit transfers with modified independence and with use of hospital bed features in order to improve functional mobility and safety. Outcome: Ongoing Goal: Stand/Squat Pivot Transfers - Patient will perform stand pivot transfer to/from bed/chair/commode with supervision and wheeled walker in order to improve functional mobility and safety. Outcome: Ongoing PT treatment consisted of the following to progress towards the above goal(s): PT Evaluation and Treatment Time PT Evaluation (Moderate) Time Entry: 14 Evaluating Therapist: Audie Garg PT Additional Details: PT Co-Eval/Treatment Information Co-evaluation/co-treatment performed?: Yes, simultaneous billable skilled care was necessary due to medical complexity and functional deficits Other discipline: OT Rationale for need to co-eval/treat: postural control, coordination issues Co-treatment goal focus: mobility, transfer, balance Evaluation Complexity Components History: Moderate (1-2 personal factors and/or comorbidities) Body Systems Review: Moderate (Addressing a total of 3 or more elements) Clinical Presentation: Evolving - changing/inconsistent clinical characteristics (Moderate) Clinical Decision Making: Moderate Time In: 08 Time Out: 0853 Total Visit Time: 14 minutes Total Treatment Time (skilled, billable minutes): 14 minutes PPE used during patient interaction: facemask, gloves Patient location at end of session: chair, RN aware Alarms on at end of session: chair alarm, RN aware Needs in reach. Upon discontinuation of Acute Care Physical Therapy Services or patient discharge from the hospital this note represents the current Physical Therapy Discharge Summary. 04/03/2023 9:03 AM NEUROICU ATTENDING CRITICAL CARE NOTE: I have examined Mary Claudio, reviewed the events of the previous 24 hours, and reviewed, confirmed and amended the resident's data, history and physical exam as needed. Multidisciplinary rounds occurred at the bedside. The case has been discussed with the NCC team. ICU Day 4 I note the following in my assessment and will implement this plan of coordinated critical care management as follows: Summary: 37 yo woman with hx of epilepsy, cognitive impairments( Hqew-Cwwqwxmw-Txjjxa Syndrome ) She was transferred to [facility] for SE, Loaded with Keppra and Phenobabital, Extubated at [facility], EEG with no electrographic seizures 24-HR EVENTS: 04/03: extubated during the day, cont Keppra and Phenobarbital Other Imaging/Data Clinical Exam: Drips (current): Temp: [97.9 F (36.6 C)-99.2 F (37.3 C)] 98.1 F (36.7 C) Pulse (Heart Rate): [75-100] 75 Resp Rate: [9-27] 22 BP: (119-165)/(58-104) 127/98 O2 Sat (%): [92 %-99 %] 97 % Systemic Exam: GENERAL: Alert, no acute distress HEENT: normocephalic, CARDIO: +S1S2, RRR, no m/r/g, no edema PULM: clear to auscultation bilaterally, equal chest rise; ABDOMINAL: soft, nontender, nondistended, active bowel sounds EXTREMITIES: no wounds or lesions Neurologic Exam: [place] Coma Scale: E: Opens spontaneously:4 V: Confused (+4) M: Obeys commands (+6) Total: 14 Mental Status: alert Orientation: oriented to person and place 0=No aphasia, normal, dysarthria Cranial Nerves: Blink to threat present bilaterally Pupils: YO Extraocular movements: intact Corneal reflex: present bilaterally Face: symmetric bilaterally Motor exam: Left arm weakness (move antigravity with a minimal drift) NEUROLOGIC: Data: Neuroimaging: LAST IMAGES: Most Recent CT Asymmetric volume loss is noted in the left cerebral hemisphere and more subtly in the left cerebellar hemisphere. Differential considerations, as above. Most Recent MRI p Neuromonitoring (24-h): EEG: RIGHT hemispheric slowing compared to the LEFT. Excess beta. Frequent R temporal IEDs evolving to rare RIGHT and frequent LEFT discharges. Occasional 0.5-1.0Hz SI-LRDA (not qualifying for ESz nor IIC). No EKG abnormality TCD: none Assessment: Hx of cognitive impairment Tevv-Jdglpxue-Hetpxl Syndrome Epilepsy Status epilepticus Plan: Neuro checks q4h Off EEG Keppra cont 1250 mg BID Phenobarbital 32.2 MRI brain w.wo cont to evaluate left side weakness SBP<160 PAIN, SEDATION: Plan: Analgesia: Tyelenol Neurontin 400 mg TID Sedation: avoid Mobilization: avoid PT/OT RESPIRATORY: Data: On mechanical ventilation: none Vent setting: Oxygen Therapy O2 Sat (%): 97 % O2 Device: room air Flow (L/min): 3 Oxygen Concentration (%): 33 Ventilator Settings and Monitoring (Adult/Peds) Ventilator/Non-Ventilator Mode: EXT (Extubation) Total Respiratory Rate: 21 PEEP (cm H2O): 5 Pressure Support (cmH2O): 5 Peak Inspiratory Pressure (cmH2O): 10 I:E Ratio: 1.3:1 Secretions: - Assessment: No Current Issues Extubated on 04/03 Plan: Du-nebs PRN CPT PRN Spo2>92 ABG prn CXR Life support devices in place. No acute process. CARDIOVASCULAR: Data: TTE: Pending Hs-Troponin peaked at 300 Adv Hemodynamic Monitoring (24-h): Assessment: Essential HTN Plan: SBP<160 MAP>65 Amlodipine 10 mg daily Restart home Aldactone Restart home lasix RENAL/ FLUIDS / ELECTROLYTES:: IV fluid: none Recent Labs 04/01/23 0003 04/02/23 0010 04/02/23 2347 SODIUM 139 139 139 POTASSIUM 3.5 3.8 3.6 CHLORIDE 103 103 103 CO2 26 28 29 BUN 8 12 14 CREATSERUM 0.61 0.56 0.49* MAGNESIUM 1.9 1.9 1.8 PHOSPHORUS 3.4 3.1 3.1 ICA 4.33* 4.26* 4.56* I/O last 3 completed shifts: In: 1885.9 [P.O.:400; I.V.:47.9; NG/GT:1315.3; IV Piggyback:122.6] Out: 400 [Urine:400] UOP ml/kg/hr Assessment: SERAFIN Plan: ICU electrolytes replacement Goal Serum K >3.5-4, PO4 >3, Mg >2 AND Ionized CA >1.00 Strict Input AND Output Nurse Driven Law Protocol GASTROINTESTINAL/NUTRITION: Data: No results for input(s): ALBUMIN, PREALBUMIN, CRP, BILIDIRECT, BILITOTAL, ALKPHOS, ALT, AST, TP, AMYLASE, LIPASE in the last 72 hours. - DIET REGULAR Diet Soft and Bite Sized (IDDSI 6) AAT - Cinthya Swallow Screening Result: passed=cleared for oral intake Assessment: No Current Issues - Plan: GI Prophylaxis: none BMI: Body mass index is 34.05 kg/m . - Consult nutrition for malnutrition screening Diet: Taking PO diet Bowel regimen: - Last Bowel Movement: 04/02/23 - Senna, miralax ENDOCRINE: Data: Recent Labs 04/02/23 1714 04/02/23 2304 04/02/23 2347 04/03/23 0605 GLUCOSE 112* 115* 99 84 Insulin TDD: Assessment: No Current Issues Plan: - Goal blood glucose 140-180 - Insulin SSI: Q6H INFECTIOUS DISEASE: Data: Recent Labs 04/01/23 0003 04/02/23 0010 04/02/23 2347 WBC 9.01 9.36 8.36 - Temp (24hrs), Av.4 F (36.9 C), Min:97.9 F (36.6 C), Max:99.2 F (37.3 C) UA: wbc, positive leuk Micro: Most recent and positive cultures: Assessment: No active issues Plan: Monitor fever curve and obtain Glaser Cx and CXR if febrile PRN Tylenol for T>100.4F Follow-Up Pending Cultures Antibiotics: none HEMATOLOGIC: Data: Recent Labs 04/01/23 0003 04/02/23 0010 04/02/23 2347 HGB 12.8 12.3 11.8 HCT 41.3 39.4 37.8 PLATELET 150 157 162 Last Screening LE U/S Assessment: No Current Issues Plan: DVT Prophylaxis: LVX Monitor CBC and Coagulation Profile Target Hgb 7-9 G/dL ACTIVE LINES/DRAINS - Patient Lines/Drains/Airways Status Active Lines, Drains, Airways, & Wound Overview Name Placement date Placement time Site Days Midline Catheter - Single Lumen EPIV AST 03/31/23 0930 brachial vein, left open-ended catheter 18 gauge 03/31/23 0930 -- 2 Peripheral IV Line - Single Lumen 03/30/23 1200 forearm, anterior, left 20 gauge 03/30/23 1200 -- 3 Peripheral IV Line - Single Lumen 03/31/23 0139 blue forearm, posterior, left 22 gauge 03/31/23 0139 -- 3 Wound Skin Tear 03/30/23 1200 Anterior;Left;Lower Leg 03/30/23 1200 Leg 3 Wound Friction 03/30/23 1200 Buttocks 03/30/23 1200 Buttocks 3 Active Medications: amLODIPine 10 mg Oral Daily enoxaparin 40 mg Subcutaneous Daily Gabapentin 400 mg Oral Q8H levETIRAcetam 1,250 mg Intravenous Q12HNS Pantoprazole 40 mg Oral Daily PHENobarbital 32.4 mg Oral Daily PHENobarbital 48.6 mg Oral Q24H Polyethylene glycol 17 g Oral Daily Senna 17.2 mg Oral Daily Sertraline 125 mg Oral Daily Acetaminophen, bisacodyl, Calcium Gluconate OR calcium gluconate, hydrALAZINE OR hydrALAZINE, Labetalol OR Labetalol, magnesium sulfate, potassium chloride OR Potassium chloride OR Potassium Bicarb-Citric Acid OR potassium chloride, Sodium chloride 0.9%, sodium phosphate OR sodium phosphate Active Problems: Patient Active Problem List Diagnosis Status epilepticus DISPOSITION: transfer to step down CODE STATUS: Full Code Mukesh Nolan MD, Division of Neurocritical Care 04/03/2023 9:03 AM Acute Occupational Therapy Evaluation Prior to Admission AM-PAC Score: Current AM-PAC score(s): CURRENT AM-PAC Mobility Raw Score: 11 CURRENT AM-PAC Activity Raw Score: 15 Based on the above AM-PAC score(s) and OT clinical judgment, discharge destination recommendation is: [facility] Facility return Mobility equipment available at home: ADL equipment available at home: Equipment recommendations for discharge: Current therapy frequency recommendation(s) in acute: 5 times a week Precautions and Weightbearing Status: Patient Safety Communication Prior to Visit: Nursing Subjective: Pt agreeable to OT services. Pain: General Pain Documentation (Adult, OB, Peds) Presence of Pain: complains of pain/discomfort Pain Location: neck Home Setting Residence: Care Home Lives With: facility resident First floor setup: bedroom, grab bars, walk-in shower Number of stairs to enter home: 0 Home Environment Details: Patient lives in SNF at baseline. Per SNF, patient was modified independent/supervision with mobility with walker. Previous Level of Function Bed Mobility/Transfers: independent Ambulation Skills: needs device Assistive Device: 2 wheeled walker Prior Level of Function Details: Lives at SNF and was modified independent/supervision for mobility within facility. Objective/Observation: Vitals/Vitals Responses to Treatment: VSS O2 Device: room air Vision Screen Currently wearing corrective lenses: No Cognition Overall Cognitive Status: Impaired Arousal/Alertness: Delayed responses to stimuli Orientation Level: Oriented to person, Oriented to place Following Commands: Follows one step commands with increased time Safety Judgment: Decreased awareness of need for safety, Decreased awareness of need for assistance Awareness of Errors: Decreased awareness of errors, Assistance required to identify errors made, Assistance required to correct errors made Deficits: Decreased awareness of deficits ADLs: ADL Assessment: Bathing Deficit, UE Dressing Deficit, Toileting Deficit, Grooming Deficit ADL Anticipated Performance (ADLs not directly observed this session): Bathing, Grooming, UE Dressing, LE Dressing, Toileting Eating Assistance: Minimal Grooming Assistance: Minimal Bathing Assistance: Moderate UE Dressing Assistance: Minimal LE Dressing Assistance: Moderate Toilet Assistance: Moderate Balance: Sitting Balance Static Sitting-Level of Assistance: Contact guard Dynamic Sitting-Level of Assistance: Minimum assistance Skilled Rationale: Verbal cues, Positioning, Hand placement, Full extension to upright positioning/posture, Finding/maintaining midline positioning Sitting Balance Skilled Intervention/Details: Pt CGA for static sitting balance requiring min A for dynamic sitting balance to maintain posture and maintain midline position. Standing Balance Static Standing-Level of Assistance: Moderate assistance, 2-person assist Dynamic Standing-Level of Assistance: Moderate assistance, 2-person assist Standing-Balance Support: Gait belt, Bilateral hand held assist Skilled Rationale: Verbal cues, Positioning, Tactile cues, Full extension to upright positioning/posture, Finding/maintaining midline positioning Standing Balance Skilled Intervention/Details: Pt able to maintain standing balance with mod A x2 requiring assistance to maintain balance and cues for technique of activity. Rolling/Turning Mobility [place] Level: Rolling/Turning: minimum assist (75% patient effort) Physical Assist: Rolling/Turnin person assist Bed Features/Set-up: Rolling/Turning: Head of bed elevated, Use of bed rail Skilled Rationale: Verbal cues, Hand placement, Sequencing, Technique of activity Skilled Intervention/Details: Rolling/Turning: (Pt required verbal/tactile cues for task initiation, and positioning.) Supine to Sit Mobility [place] Level: Supine->Sit: minimum assist (75% patient effort) Physical Assist: Supine->Sit: 2 person assist Bed Features/Set-up: Supine->Sit: Head of bed elevated Skilled Rationale: Verbal cues, Tactile cues, Hand placement, Initiation and execution of task, Sequencing Skilled Intervention/Details: Supine->Sit: Pt able to complete sup -> sit with min A x2 for LE and trunk management. Transfer Assessment: Sit to Stand Transfer [place] Level: Sit->Stand: moderate assist (50% patient effort) Physical Assist: Sit->Stand: 2 person assist Assistive Device: Sit->Stand: gait belt, hand held assist Skilled Rationale: Verbal cues, Tactile cues, Hand placement, Facilitate anterior shift, Full extension to upright positioning/posture, Positioning, Sequencing, Finding/maintaining midline positioning Skilled Intervention/Details: Sit->Stand: Pt able to complete sit to stand Mod A x2 requiring verbal and tactile cues for task initiation, and postural alignment. Stand to Sit Transfer [place] Level: Stand->Sit: moderate assist (50% patient effort) Physical Assist: Stand->Sit: 2 person assist Assistive Device: Stand->Sit: gait belt, armed chair Skilled Rationale: Verbal cues, Controlled descent for sitting, Sequencing CURRENT [facility] Daily Activity Inpatient Short Form Putting on/Taking Off Lower Body Clothin - A Lot of Assistance Bathin - A Lot of Assistance Toiletin - A Lot of Assistance Putting on/Taking Off Upper Body Clothin - A Little Assistance Groomin - A Little Assistance Eatin - A Little Assistance CURRENT -[facility] Activity Raw Score: 15 CURRENT -[facility] Activity Functional Limitation/Modifier: 56.46% Currently Impaired in Daily Activity - CK Assessment & Plan: Patient was admitted for seizure disorder and recently extubated on 04/02/22. Pt was seen for OT therapy evaluation related to overall ability to complete functional tasks. Pt presented this day with limited LUE AROM and weakness. Pt was able to sit EOB requiring Min A to maintain balance and postural control. Pt was able to maintain standing balance with Mod A x2 and complete stand to sit transfer to the bed side chair with Mod A x2.Pt should continue to receive skilled OT services to maximize functional outcomes. Exam findings include impairments in: aerobic capacity, balance, coordination, endurance, posture, muscle performance. These impairments contribute to occupational performance limitations including grooming, bathing, eating, toileting, UE and LE dressing. Patient will benefit from skilled occupational therapy to address these impairments, occupational performance limitations, and participation restrictions. Patient's rehab potential is: good. Planned Therapy Interventions (OT Eval): ADL retraining, IADL retraining, balance training, cognitive training, fine motor coordination training Patient Instruction/Education this session: Plan for next session: (Continue to progress dynamic sitting balance, challenge LUE for functional use, increase standing tolerance.) Acute OT Goals Plan of Care by Krystyna Davalos OT at 04/03/2023 8:50 AM Version 1 of 1 Problem: OT - ADLs Goal: Grooming - Patient will complete grooming in standing with contact guard assistance x5 min for improved ability to safely complete ADLs. Outcome: Ongoing Goal: Toileting - Patient will complete toileting task with minimal assistance and adaptive equipment as needed for improved ability to safely complete self-care activities. Outcome: Ongoing Problem: OT - Transfers Goal: Transfers Sit/Stand - Patient will demonstrate good safety awareness during sit to/from stand functional transfer with contact guard assistance and wheeled walker to demonstrate safe functional transfers. Outcome: Ongoing Problem: OT - Endurance Goal: Endurance Functional Mobility - Patient will complete distance needed to access restroom with no greater than 1 rest breaks and ww and CGA for improved tolerance to safely complete I/ADL's Outcome: Ongoing Problem: OT - Cognition Goal: Cognition Simple ADL - Patient will demonstrate improved cognition, completing simple ADL task for 15 minutes with no greater than min cues required to maintain attention. Outcome: Ongoing Problem: OT - Strength/ROM Goal: Neuro Re-education - Patient will participate in neuro re-ed of left upper extremity with supervision and 100% accuracy for improved functional use in ADLs. Outcome: Ongoing OT treatment consisted of the following to work and progress towards the above goal(s): OT Evaluation and Treatment Time OT Evaluation (High) Time Entry: 14 Evaluating Therapist: Erich Lawrence Additional Details: OT Co-Eval/Treatment Information Co-evaluation/co-treatment performed?: Yes, simultaneous billable skilled care was necessary due to medical complexity and functional deficits Other discipline: PT Co-treatment goal focus: balance, mobility, self-care OT Evaluation Complexity Occupational Profile and Client History: High - extensive history Assessment of Occupational Performance: High (5 or more performance deficits) Clinical Decision/Performance Deficits: High (comprehensive assessments w/multiple treatment options) Time In: 838 Time Out: 852 Total Visit Time: 14 minutes PPE used during patient interaction: facemask, gloves Patient location at end of session: chair Alarms on at end of session: chair alarm Needs in reach. Upon discontinuation of Acute Care Occupational Therapy Services or patient discharge from the hospital this note represents the current Occupational Therapy Discharge Summary. Associated attestation - Krystyna Davalos OT - 04/03/2023 3:22 PM EST I, Krystnya Davalos OT, provided direct guidance in the room during this patient care session. I attest that all documentation reflects accurate skilled clinical decisions and judgements. NEUROCRITICAL CARE PROGRESS NOTE HOSPITAL VISIT DEMOGRAPHICS Patient: Mary Claudio Code status: Full Code Admission date: 03/30/2023 12:01 PM Hospital days: LOS: 4 days HISTORY OF PRESENT ILLNESS Mary Claudio is a 37 y.o. female with a past pertinent medical history of seizure disorder who initially presented to an OSH ED from her ECF in status. There is no clear chronicity regarding how long she had been in status, but it is thought to be ~ 1 hour. At the OSH, she received a total of 20 mg of Versed and loaded with keppra and phenobarbital. Given concern for inability to protect the airway, she was intubated and started on propofol and a fosphenytoin load of 2g IV. Additionally, she was noted to have a respiratory acidosis and elevated troponin of 309.3 -- likely related to demand ischemia. On review of chart, she has had several ER visits secondary to status epilepticus relating to medication non-adherence. She previously took Keppra, topiramate, and phenobarbital. Her seizure presentation is typically GTC. Previous Brain MRI in 2020 showed atrophy of the left cerebral and cerebellar hemispheres most consistent with Hqob-Umtggizq-Kmwnoj Syndrome. INTERVAL HISTORY SINCE ADMISSION 03/30/2023: NCCU Admission 03/31/2023: started on lovenox; no seizures on cEEG; started on TF; neurochecks expanded to q8, precedex overnight 04/01: increase bowel regimen 04/02: extubated, decrease Keppra to 1250mg BID, restart home Amlodipine 04/03: TTE. Restart home spironolactone. Transfer to [facility] PHYSICAL EXAM GENERAL: opens eyes to voice. Working with PT and OT to get to chair HEENT: normocephalic CARDIO: +S1S2, RRR, no murmurs no edema. NSR on tele PULM: clear to auscultation bilaterally, diminished throughout. NSR on tele ABDOMINAL: soft, nontender, nondistended, active bowel sounds EXTREMITIES: no wounds or lesions VASCULAR: 2+ distal pulses, capillary refill <3 seconds NEURO: AOx3 (unsure of which hospital), FC throughout but slower responses. LUE with drift, 4/5 in LUE/LLE. ASSESSMENT AND PLAN Neuro: Seizures Imjo-Anezilii-Durjhy Syndrome - Seizure Management - Monitor neurostatus with neurochecks Q8H - Initial seizure presentation: GTC - Loaded with 20 mg of Versed, 2g IV Fosphenytoin, 32.4 mg phenobarbital, - Propofol/versed/ketamine gtt; provider to titrate - Home AED regimen: Keppra 1000 mg, bid; Phenobarbital 15 mg - Maintenance AED regimen and recent drug levels: - Keppra 1250 mg Q12H - Phenobarbital 32.4g QAM + 48.6mg at bedtime - trough level subtherapeutic at 11 (04/01) - recheck level 2/6 AM: P - OP Neurology referral placed for formal work-up of epilepsy in setting of frequent breakthrough seizures Recent Labs 04/01/23 0809 PHENOBARBITA 11.0* - Monitor CK on admission - 03/30 - 04/01 cEEG - Last electrographic seizure: None - read: Nonspecific moderate diffuse encephalopathy, in part due to medication effect. Right hemispheric structural or physiologic abnormality. 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 - MRI brain w/o contrast ordered - Metabolic: - Check ammonia, amylase, lipase, LFTs No results for input(s): AMMONIA, AMYLASE, LIPASE, TSH, T4FREE, B12, FOLATE in the last 72 hours. Invalid input(s): LFT - Pain/Sedation management - Gabapentin 400mg q8h - tylenol prn Psych: Anxiety Depression - Sertraline 125 mg; home dose Pulm: Acute Hypoxic Respiratory Failure (resolved) ANIRUDH Ventilator/Non-Ventilator Mode: EXT (Extubation) Set Respiratory Rate/Release Rate: 8 PEEP (cm H2O): 5 Pressure Support (cmH2O): 5 O2 Sat (%): 97 % (04/03 599) O2 Device: room air (04/02 1999) - 03/30 intubated at OSH for low GCS in the setting of seizures - Extubated 04/02 - Goal SpO2 >92%; wean FiO2 as tolerated - - EAW3QOH, encourage pulmonary toileting - Imaging: - 03/30 CXR: normal CP result, no acute pathology Cards: Cardiomyopathy Acute NSTEMI HTN Temp: [97.9 F (36.6 C)-99.2 F (37.3 C)] 97.9 F (36.6 C) Pulse (Heart Rate): [75-100] 75 Resp Rate: [9-27] 22 BP: (119-165)/(58-104) 127/98 O2 Sat (%): [92 %-99 %] 97 % Weight: [87.2 kg (192 lb 3.2 oz)] 87.2 kg (192 lb 3.2 oz) - Goal SBP <160, MAP >65 - Home antihypertensives: amlodipine 10 mg, furosemide 40 mg; spironolactone 50 mg - PRN labetalol and hydralazine - amlodipine 10mg restarted 04/02 - add home spironolactone 50 mg daily - Imaging: - 03/23/2020 TTE: Normal ejection fraction with no wall motion abnormalities - repeat TTE: P - 03/30 ECG: NSR, no abnormalities Renal/: hypocalcemia - Fluid Balance: - Goal: euvolemia Intake/Output Summary (Last 24 hours) at 04/03/2023 1139 Last data filed at 04/02/2023 2356 Gross per 24 hour Intake 1386.08 ml Output 400 ml Net 986.08 ml - Continue PureWick - Maintenance: n/a - Daily Chem 10; electrolytes replaced per NCCU protocol Recent Labs 04/02/23 0010 04/02/23 2347 SODIUM 139 139 POTASSIUM 3.8 3.6 CHLORIDE 103 103 CO2 28 29 BUN 12 14 CREATSERUM 0.56 0.49* MAGNESIUM 1.9 1.8 PHOSPHORUS 3.1 3.1 ICA 4.26* 4.56* GI/Nutrition: GERD No results for input(s): ALBUMIN, BILIDIRECT, BILITOTAL, ALKPHOS, ALT, AST, TP, AMYLASE, LIPASE in the last 72 hours. - DIET TUBE FEEDING WITH TRAY Diet Soft and Bite Sized (IDDSI 6) AAT - [place] Swallow Screening Result: passed=cleared for oral intake - Body mass index is 34.05 kg/m . - Vital AF 1.2 @ 55 cc/hr - Bowel regimen: - Last Bowel Movement: 04/02/23 - Senna doubled, miralax scheduled Stress Ulcer Prophylaxis: Esomeprazole Endo: No Current Issues - Goal blood glucose 140-180 - Insulin SSI: assess for need Recent Labs 04/02/23 1714 04/02/23 2304 04/02/23 2347 04/03/23 0605 GLUCOSE 112* 115* 99 84 ID: No Current Issues Recent Labs 04/02/23 0010 04/02/23 2347 WBC 9.36 8.36 - Temp (24hrs), Av.4 F (36.9 C), Min:97.9 F (36.6 C), Max:99.2 F (37.3 C) - PRN Tylenol for T>100.4F - Most recent and positive cultures: Date Collected Source Result Date Finalized 03/30 Staph swab MSSA 03/30 BCx negative 03/30 BAL negative - Antiinfectives: Start Date Antiinfective Coverage Course Length Stop Date Heme/Onc: Anemia 2/2 iron deficiency Recent Labs 04/02/23 0010 04/02/23 2347 WBC 9.36 8.36 RBC 4.25 4.11 HGB 12.3 11.8 HCT 39.4 37.8 PLATELET 157 162 - Goal plt >100, INR <1.4, Hgb >7 Musc: No Current Issues - PT/OT consulted and following - Current Activity Order: AAAT Social/Dispo: - Code status: Full Code - 03/30: Medications reconciled - 04/03 Pt updated on plan of care. - Discharge planning per PCRM/SW. Complexity. Hypocalcemia - Continue to monitor and replete. Obesity Body mass index is 34.05 kg/m . - Follow with PCP for dietary and lifestyle modifications. Any conditions listed below are present on admission unless otherwise specified. . ICU Checklist: [ ] CAM-ICU [ ] ICU Diary daily [ ] SAT [ ] SBT [] DVT ppx; [x] SCDs; [x] Lovenox, [ ] heparin [x] Stress ulcer prophylaxis: Nexium - Lines/Tubes: Midline Patient seen and plan of care discussed with NCCU Attending, Dr. Nolan Transfer to [facility]. BENTLEY Martines Service pager: [phone] Service [facility]iah #: [id number] (Beds [phone] and beds), Isiah #: [id number] (Beds [phone] and [facility]) 04/03/23 7:11 AM Respiratory Status Update: Mary Claudio has been liberated from mechanical ventilation. Recent Vitals and Breath Sounds: Blood pressure 161/77, pulse 93, temperature 98.4 F (36.9 C), temperature source Oral, resp. rate (!) 26, height 1.6 m (5' 3), weight 87.2 kg (192 lb 3.2 oz), SpO2 98 %. 3L NC Post-Extubation Orders and Indications: O2,Cough Respiratory Plan of Care: Cough and deep breathing,wean O2. The patients respiratory plan of care was updated by Cash Guevara RCP 04/02/2023 11:23 AM I have seen and examined the patient with the resident/SEWING TEACHER on 03/31 I have personally reviewed all the imaging and laboratory data and also reviewed the note. I agree with the assessment and plan with the following additions : BP 147/73 Pulse 88 Temp 99.7 F (37.6 C) (Oral) Resp 15 Ht 1.6 m (5' 3) Comment: per Care Everywhere Wt 89 kg (196 lb 3.4 oz) SpO2 95% BMI 34.76 kg/m General: no signs of distress HEENT: no bruits, no neck stiffness CVS: regular rate and rhythm , no murmur. Lungs: clear to auscultation, no wheezes or crackles Abdomen: soft non tender non distended, +ve Bowel sounds. Extremities: no edema, + pulses Neuro:MS: Sedation held Not FC Pupils reacting to light Corneals, gaga nd cough intact Moves the right UE antigravity Trace response to pain in left UE and aga LE HCT: Left cerebral and cerebellar atrophy Assessment and Plan: This is a 37 yo female with H/o epilepsy, HTN, ? 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 1. CLINICAL RESEARCH MONITOR: Status epilepticus W/up for etiology of relapse of SZ Continue Keppra - reduce to 1250 BID. Was on 1000 BID. Continue Phenobarb. Level bit low DW patient if she was compliant Plan MRI Brain 2. Pulmonary: Acute Respiratory failure. ANIRUDH.CPAP SBT, plan extubation 3. CVS: HTN. Target <160. Resume antiHTN Elevated troponin likely demand ischemia, improving 4. GI: Tube feeds hold 5. Renal: stable 6. ID: Stable. 7. Hem: Stable 8. Endo: SSI 9. Prophylaxis:GI, DVT proph. Lovenox This critically ill patient is unstable and is at high risk of imminent or life threatening deterioration due to her Status epilepticus, respiratory failure I personally spent 35 min of critical care time assessing and formulating a plan for this patient which was exclusive of time spent on procedures or teaching. Management of Status epilepticus, patient's airway and ventilator was performed. Chery Schmitz MD [facility] Department of Neurology NEUROCRITICAL CARE PROGRESS NOTE HOSPITAL VISIT DEMOGRAPHICS Patient: Mary Claudio Code status: Full Code Admission date: 03/30/2023 12:01 PM Hospital days: LOS: 3 days CHIEF COMPLAINT Status Epilepticus HISTORY OF PRESENT ILLNESS Mary Claudio is a 37 y.o. female with a past pertinent medical history of seizure disorder who initially presented to an OSH ED from her ECF in status. There is no clear chronicity regarding how long she had been in status, but it is thought to be ~ 1 hour. At the OSH, she received a total of 20 mg of Versed and loaded with keppra and phenobarbital. Given concern for inability to protect the airway, she was intubated and started on propofol and a fosphenytoin load of 2g IV. Additionally, she was noted to have a respiratory acidosis and elevated troponin of 309.3 -- likely related to demand ischemia. On review of chart, she has had several ER visits secondary to status epilepticus relating to medication non-adherence. She previously took Keppra, topiramate, and phenobarbital. Her seizure presentation is typically GTC. Previous Brain MRI in 2020 showed atrophy of the left cerebral and cerebellar hemispheres most consistent with Bsjz-Qoiuqkma-Rmwcck Syndrome. INTERVAL HISTORY SINCE ADMISSION 03/30/2023: NCCU Admission 03/31/2023: started on lovenox; no seizures on cEEG; started on TF; neurochecks expanded to q8, precedex overnight 04/01: increase bowel regimen 04/02: extubated, decrease Keppra to 1250mg BID, restart home Amlodipine REVIEW OF SYSTEMS Review of systems not obtained due to obtundation. HISTORY No past medical history on file. No past surgical history on file. Social History Socioeconomic History Marital status: Not on file Spouse name: Not on file Number of children: Not on file Years of education: Not on file Highest education level: Not on file Occupational History Not on file Tobacco Use Smoking status: Not on file Smokeless tobacco: Not on file Substance and Sexual Activity Alcohol use: Not on file Drug use: Not on file Sexual activity: Not on file Other Topics Concern Not on file Social History Narrative Not on file Social Determinants of Health Financial Resource Strain: Not on file Food Insecurity: Not on file Transportation Needs: Not on file Physical Activity: Not on file Stress: Not on file Social Connections: Not on file Intimate Partner Violence: Not on file Housing Stability: Not on file ALLERGIES AND HOME MEDICATIONS Allergies: has no allergies on file. Home Medications: Medications Prior to Admission Medication Sig Dispense Refill Last Dose amLODIPine 10 MG tablet Take 1 tablet by mouth daily. faMOTIdine 20 MG tablet Take 1 tablet by mouth daily. Folic acid 1 MG tablet Take 1 tablet by mouth daily. furOSEmide 40 MG tablet Take 1 tablet by mouth daily. Gabapentin 400 MG capsule Take 1 capsule by mouth 3 times daily. Levetiracetam 1000 MG tablet Take 1 tablet by mouth 2 times daily. PHENobarbital 15 MG tablet Take 1 tablet by mouth every evening. phenobarbital 30 MG tablet Take 1 tablet by mouth 2 times daily. Potassium chloride 20 MEQ Tab CR tablet Take 1 tablet by mouth 2 times daily. Sertraline 100 MG tablet Take 1 tablet by mouth daily. Take with 25mg tablet for total dose of 125mg Sertraline 25 MG tablet Take 1 tablet by mouth daily. Take with 100mg tablet for total dose of 125mg spironolactone 50 MG tablet Take 1 tablet by mouth daily. Prior to Arrival Meds: Medications Prior to Admission Medication Sig Dispense Refill Last Dose amLODIPine 10 MG tablet Take 1 tablet by mouth daily. faMOTIdine 20 MG tablet Take 1 tablet by mouth daily. Folic acid 1 MG tablet Take 1 tablet by mouth daily. furOSEmide 40 MG tablet Take 1 tablet by mouth daily. Gabapentin 400 MG capsule Take 1 capsule by mouth 3 times daily. Levetiracetam 1000 MG tablet Take 1 tablet by mouth 2 times daily. PHENobarbital 15 MG tablet Take 1 tablet by mouth every evening. phenobarbital 30 MG tablet Take 1 tablet by mouth 2 times daily. Potassium chloride 20 MEQ Tab CR tablet Take 1 tablet by mouth 2 times daily. Sertraline 100 MG tablet Take 1 tablet by mouth daily. Take with 25mg tablet for total dose of 125mg Sertraline 25 MG tablet Take 1 tablet by mouth daily. Take with 100mg tablet for total dose of 125mg spironolactone 50 MG tablet Take 1 tablet by mouth daily. Hospital Medications: Infusions: Vital AF 1.2 Jean Carlos 55 mL/hr (04/01/231999) Scheduled: chlorhexidine 15 mL Mouth/Throat Q12H enoxaparin 40 mg Subcutaneous Daily esomeprazole 40 mg Per NG tube Daily Gabapentin 400 mg Per NG tube Q8H Insulin regular Subcutaneous Q6H levETIRAcetam 1,500 mg Intravenous Q12HNS PHENobarbital 32.4 mg Per NG tube Daily PHENobarbital 48.6 mg Per NG tube Q24H Polyethylene glycol 17 g Per NG tube Daily Senna 17.2 mg Per NG tube Daily Sertraline 125 mg Per NG tube Daily PRN: bisacodyl, Calcium Gluconate OR calcium gluconate, Insulin regular AND BLOOD GLUCOSE (POC DEVICE) AND BLOOD GLUCOSE (POC DEVICE) UDPRN AND COMMUNICATION ORDER FOR NURSING CARE: For Blood Glucose LESS THAN 80 mg/dl AND Dextrose AND glucose AND NOTIFY PHYSICIAN, Blood Glucose LESS THAN 80 mg/dl, hydrALAZINE OR hydrALAZINE, Labetalol OR Labetalol, magnesium sulfate, potassium chloride OR Potassium chloride OR Potassium Bicarb-Citric Acid OR potassium chloride, Sodium chloride 0.9%, sodium phosphate OR sodium phosphate PHYSICAL EXAM GENERAL: opens eyes to voice HEENT: normocephalic, cEEG in-place CARDIO: +S1S2, RRR, no m/r/g, no edema PULM: clear to auscultation bilaterally ABDOMINAL: soft, nontender, nondistended, active bowel sounds EXTREMITIES: no wounds or lesions VASCULAR: 2+ distal pulses, capillary refill <3 seconds NEURO: Alert, following commands to show thumbs up and wiggle toes No response to NS in the LUE C/c/g +, PERRL; normal vestibulo-ocular reflex ASSESSMENT AND PLAN Neuro: Seizures Qvzu-Eiwcmkuh-Ltdtfm Syndrome - Seizure Management - Monitor neurostatus with neurochecks Q8H - Initial seizure presentation: GTC - Loaded with 20 mg of Versed, 2g IV Fosphenytoin, 32.4 mg phenobarbital, - Propofol/versed/ketamine gtt; provider to titrate - Home AED regimen: Keppra 1000 mg, bid; Phenobarbital 15 mg - Maintenance AED regimen and recent drug levels: - Keppra 1250 mg Q12H - Phenobarbital 32.4g QAM + 48.6mg at bedtime - trough level subtherapeutic at 11 (2/3) - recheck level / Recent Labs 04/01/23 0809 PHENOBARBITA 11.0* - Monitor CK on admission and Q6H (see renal) - 03/30 - 04/01 cEEG - Last electrographic seizure: None - read: Nonspecific moderate diffuse encephalopathy, in part due to medication effect. Right hemispheric structural or physiologic abnormality. 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 - MRI brain w/o contrast ordered - Metabolic: - Check ammonia, amylase, lipase, LFTs No results for input(s): AMMONIA, AMYLASE, LIPASE, TSH, T4FREE, B12, FOLATE in the last 72 hours. Invalid input(s): LFT - Pain/Sedation management - Gabapentin 400mg q8h Psych: Anxiety Depression - Sertraline 125 mg; home dose Pulm: Acute Hypoxic Respiratory Failure ANIRUDH Ventilator/Non-Ventilator Mode: CPAP/PS Set Respiratory Rate/Release Rate: 8 PEEP (cm H2O): 6 Pressure Support (cmH2O): 8 O2 Sat (%): 94 % (04/02 799) O2 Device: ventilator (mechanical ventilation) (04/02 733) Oxygen Concentration (%): 30 (04/02 799) - Goal SpO2 >92%; wean FiO2 as tolerated - - [id number], encourage pulmonary toileting - Extubated 04/02 - possibly related to medication side effects Imaging: - 03/30 CXR: normal CP result, no acute pathology Cards: Cardiomyopathy Acute NSTEMI HTN Temp: [98.4 F (36.9 C)-99.7 F (37.6 C)] 98.4 F (36.9 C) Pulse (Heart Rate): [73-95] 91 Resp Rate: [11-23] 18 BP: (131-164)/(67-97) 143/85 O2 Sat (%): [90 %-100 %] 94 % Weight: [87.2 kg (192 lb 3.2 oz)] 87.2 kg (192 lb 3.2 oz) - Goal SBP <160, MAP >65 - Home antihypertensives: amlodipine 10 mg, furosemide 40 mg; spironolactone 50 mg - PRN labetalol and hydralazine - restart amlodipine 10mg (04/02) - 03/23/2020 TTE: Normal ejection fraction with no wall motion abnormalities - 03/29 troponin: 303 (OSH); 150 --> 147 (No additional orders) - 03/30 ECG: NSR, no abnormalities - Statin Therapy: not indicated Renal/: No Current Issues - Fluid Balance: - Goal: euvolemia Intake/Output Summary (Last 24 hours) at 04/02/2023 0841 Last data filed at 04/02/2023 0800 Gross per 24 hour Intake 1883.24 ml Output 1140 ml Net 743.24 ml - Continue PureWick - Maintenance: n/a - Daily Chem 10; electrolytes replaced per NCCU protocol Recent Labs 03/30/23 1230 03/30/23 1424 04/01/23 0003 04/02/23 0010 SODIUM 134* < > 139 139 POTASSIUM 5.2* < > 3.5 3.8 CHLORIDE 102 < > 103 103 CO2 25 < > 26 28 BUN 8 < > 8 12 CREATSERUM 0.82 < > 0.61 0.56 MAGNESIUM 2.0 < > 1.9 1.9 PHOSPHORUS 3.6 < > 3.4 3.1 ICA -- < > 4.33* 4.26* CPK 503* -- -- -- < > = values in this interval not displayed. GI/Nutrition: GERD Recent Labs 03/30/23 1230 ALBUMIN 3.6 BILIDIRECT 0.1 BILITOTAL 0.8 ALKPHOS 71 ALT 12 AST 40* TP 6.3* - DIET NPO AND TUBE FEEDING with meds AAT - - Body mass index is 34.05 kg/m . 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 - Temp (24hrs), Av.9 F (37.2 C), Min:98.4 F (36.9 C), Max:99.7 F (37.6 C) - PRN Tylenol for T>100.4F - Most recent and positive cultures: Date Collected Source Result Date Finalized 03/30 Staph swab MSSA 03/30 BCx NGTD 03/30 BAL negative - Antiinfectives: Start Date Antiinfective Coverage Course Length Stop Date Heme/Onc: Anemia 03/31 iron deficiency Recent Labs 03/30/23 1230 03/30/23 1311 04/01/23 0003 04/02/23 0010 WBC -- < > 9.01 9.36 RBC -- < > 4.48 4.25 HGB -- < > 12.8 12.3 HCT -- < > 41.3 39.4 PLATELET -- < > 150 157 PT 13.1 -- -- -- PTT 22.9* -- -- -- INR 1.0 -- -- -- < > = values in this interval not displayed. - Goal plt >100, INR <1.4, Hgb >7 - Lovenox for DVT Ppx started 03/31 Musc: No Current Issues - PT/OT consulted and following - Current Activity Order: AAAT Social/Dispo: - Code status: Full Code - 03/30: Medications reconciled - Discharge planning per PCRM/SW. Complexity. Hypocalcemia - Continue to monitor and replete. Obesity Body mass index is 34.05 kg/m . - Follow with PCP for dietary and lifestyle modifications. Any conditions listed below are present on admission unless otherwise specified. . ICU Checklist: [ ] CAM-ICU [ ] ICU Diary daily [ ] SAT [ ] SBT [x] DVT ppx; [ ] SCDs; [x] Lovenox, [ ] heparin [x] Stress ulcer prophylaxis: Nexium - Lines/Tubes: Midline Discussed with NCCU Attending, Dr. Ainsley Solis MD Service pager: [phone] Service [facility] #: [id number] (Beds [phone] and beds), [facility] #: [id number] (Beds [phone] and [facility]) 04/02/23 8:41 AM I have seen and examined the patient with the resident/SEWING TEACHER on 03/31 I have personally reviewed all the imaging and laboratory data and also reviewed the note. I agree with the assessment and plan with the following additions : BP 146/77 Pulse 80 Temp 98.8 F (37.1 C) (Oral) Resp 16 Ht 1.6 m (5' 3) Comment: per Care Everywhere Wt 89 kg (196 lb 3.4 oz) SpO2 98% BMI 34.76 kg/m General: no signs of distress HEENT: no bruits, no neck stiffness CVS: regular rate and rhythm , no murmur. Lungs: clear to auscultation, no wheezes or crackles Abdomen: soft non tender non distended, +ve Bowel sounds. Extremities: no edema, + pulses Neuro:MS: Sedation held Not FC Pupils reacting to light Corneals, gaga nd cough intact Moves the right UE antigravity Trace response to pain in left UE and aga LE HCT: Left cerebral and cerebellar atrophy Assessment and Plan: This is a 37 yo female with H/o epilepsy, HTN, ? 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 1. CLINICAL RESEARCH MONITOR: Status epilepticus W/up for etiology of relapse of SZ Continue Keppra and Phenobarb Phenoarb level after few doses CEEG if negative DC, Plan MRI Brain 2. Pulmonary: Acute Respiratory failure. ANIRUDH. CMV for now. CPAP if waking up more 3. CVS: HTN. Target <160. Resume antiHTN as needed Elevated troponin likely demand ischemia, improving 4. GI: Tube feeds 5. Renal: stable 6. ID: Stable. Glaser Cx 7. Hem: Stable 8. Endo: SSI 9. Prophylaxis:GI, DVT proph. Lovenox This critically ill patient is unstable and is at high risk of imminent or life threatening deterioration due to her Status epilepticus, respiratory failure I personally spent 35 min of critical care time assessing and formulating a plan for this patient which was exclusive of time spent on procedures or teaching. Management of Status epilepticus, patient's airway and ventilator was performed. Chery Schmitz MD [facility] Department of Neurology Long-Term EEG Daily EEG Report: Start Time: 03/30/2023@1602 Reviewed: 03/31/2023@0000-03/31/2023@1200 History/Indication: 37yoF admitted on 03/30/2023 with status epilepticus. cEEG obtained to monitor for ongoing seizures and treatment response. Medications: chlorhexidine 15 mL Mouth/Throat Q12H enoxaparin 40 mg Subcutaneous Daily esomeprazole 40 mg Per NG tube Daily Gabapentin 400 mg Per NG tube Q8H Insulin regular Subcutaneous Q6H levETIRAcetam 1,500 mg Intravenous Q12HNS PHENobarbital 32.4 mg Per NG tube Daily PHENobarbital 48.6 mg Per NG tube Q24H Senna 8.6 mg Oral Daily Or Senna 8.6 mg Per NG tube Daily Sertraline 125 mg Per NG tube Daily Vital AF 1.2 Jean Carlos Technical Description: This is a 21-channel digital EEG recording with time-locked video and single-channel electrocardiogram. Electrodes are placed according to the 10 to 20 International System. The patient was monitored continuously by EEG technicians with EEG reviewed intermittently and annotations made to the EEG record every two hours. Portions of this record are reviewed using bandpass filters of 1 to 70 Hz and sensitivity of 7mV/mm. EEG Findings Clinical State: intubated INTERICTAL: Background: continuous, asymmetric, no PDR, absent AP gradient Superimposed Frequencies: excess beta, alpha , delta/theta Voltage: >20V Reactivity: -03/30/2023@1643(CYSTE): no EEG/clinical reactivity State Change: present without N2 ; quiet state with diffuse decrease in amplitude and fast activity Focal Asymmetry: continuous R hemispheric polymorphic delta slowing Rhythmic or Periodic Patterns: occasional 0.5-1.0Hz SI-LRDA over R hemisphere (not qualifying for ESz nor IIC) Sporadic ED's: frequent R temporal sharp/spike-waves maximal at T8/F8>P8 with broad field Brief Rhythmic Discharges: none EKG: NSR ICTAL / EVENTS: Seizure: none Other Clinical Events: none Activation Procedures Hyperventilation: N/A Photic stimulation: N/A Summary EEG findings: Diffuse slowing/disorganization R hemispheric slowing Excess beta Frequent R temporal IEDs Occasional 0.5-1.0Hz SI-LRDA (not qualifying for ESz nor IIC) No EKG abnormality Impression: Nonspecific moderate diffuse encephalopathy, in part due to medication effect R hemispheric structural or physiologic abnormality R temporal cortical irritation and risk for focal onset seizures D/W primary team This is an ongoing cEEG study and this note is updated periodically. The complete report will be available when the study is ended. Torrey Heller MD Golf Instructor Department of Neurology, Epilepsy Division Discharge Planning Patient Assessment Admission Assessment Patient Assessment Completed: Initial Anticipated discharge disposition: Extended Care Facility Reason for Admission: Seizures Is the patient able to participate in the assessment?: No Explanation of why patient is unable to participate: Intubated Information source: Other Explanation of Other: Guardian Information Source Name/Contact: Trina Ren Demographics Verified and Updated: Yes Has the patient been admitted to any hospital in the last 30 days?: Transferred From Outside Hospital Advanced Care Planning Has the patient completed Advance Directives?: Not Completed Referral to Social Work for Advance Care Planning? : Patient Declines Legal Next of Kin Does the patient have a Guardian?: Yes Name and Contact information: (S) Trina Ren- [phone] Spouse: No Adult Child(mary), List All Adult Children: No Parent(s) - List All Living Parents: No Nearest Adult Related by Blood or Adoption: No Patient Reports No Relatives by Blood or Adoption.: Unable to Assess Referral to Social Work to Identify Legal Next of Kin?: No Reviewed and Updated in Demographics? : Yes Outpatient Providers Does patient have a primary care physician? 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 : none Initial ADLs Prior to Arrival What is the patient's baseline physical functioning prior to this acute illness?: completely dependent What is the patient's baseline cognitive functioning prior to this acute illness?: 24 hour supervision Is the patient's baseline functioning changed by this acute illness? : No Medication Management Does the patient have prescription insurance coverage? 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 : No Employed?: Disabled Coping/Stress Concerns about patient s coping and stress?: Unable to Assess Concerns about patient s caregiver s coping and stress?: Unable to Assess Values and Beliefs Cultural or confucianism practices that may impact discharge planning and/or medical care?: Unable to Assess Initial Discharge Planning Anticipated discharge disposition: Extended Care Facility Transportation Available for Discharge: Ambulance Anticipated DME: none Anticipated Services at Discharge: Half-Way Patient Assessment Completed: Initial Expected Discharge Date: Unknown Discharge Planning Summary Pt resides at the [facility], . Pt has a guardian, Trina Ren, H: [phone], W: [phone]. Guardianship letter in the chart. Guardian shared that discharge plan is for pt to return to the [facility]. Case Management Plan SW will continue to follow for discharge planning needs. SHAUN Conway Neuro Critical Care Supervisor [employer] Available by secure chat NUTRITION CONSULT: TUBE FEED ASSESSMENT Nutrition Recommendations and Plan of Care: Initiate TF of Vital AF 1.2 at 10 mL/hr. Increase by 10 mL/hr q4 hours as tolerated until goal rate of 55 mL/hr is achieved to provide 1320 mL total volume, 1584 kcal (25 kcal/kg adj IBW), and 99 g PRO (1.9 g/kg IBW). Free water per primary team. Recommend minimum of 30 mL q4 hours x 6 daily to maintain tube patency. Monitor TF intake, TF tolerance, GI function, skin integrity, weight changes, and labs. RD to continue to follow. Per HPI, Mary Claudio is a 37 y.o. female with a past pertinent medical history of seizure disorder who initially presented to an OSH ED from her F in status. At the OSH, she received a total of 20 mg of Versed and loaded with keppra and phenobarbital. Given concern for inability to protect the airway, she was intubated and started on propofol and a fosphenytoin load of 2g IV. Additionally, she was noted to have a respiratory acidosis and elevated troponin of 309.3 -- likely related to demand ischemia. 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 Nutrition has been consulted for tube feed assessment. Past History No past medical history on file. No past surgical history on file. Nutrition History/Assessment: Pt seen this morning. Pt remains intubated, not on any gtts. No family in room to speak with. Discussed pt on NCCU rounds. Pt received significant anti-seizure medication at OSH. Had started to wean vent but pt put back on rate this morning d/t apnea. Pt to remain on cEEG. Plans to start TF today. Nutrition Focused Physical Exam: deferred d/t MV has no allergies on file. Current Diet Orders Procedures DIET NPO AND TUBE FEEDING with meds Standing Status: Standing Number of Occurrences: 1 Order Specific Question: NPO Meds: Answer: with meds Ht: 5' 3 Current Wt: 89 kg (196#) Admit Wt: 89 kg (196 lb 3.4 oz) IBW: 52.3 kg (115#) %IBW: 170% BMI: 34.8 Weight History: Limited weight history available in EMR. Pt with insignificant 19% weight loss x ~1.5 years (equivalent to ~12.7% 1 year which is not considered nutritionally significant). Wt Readings from Last 20 Encounters: 03/30/23 89 kg (196 lb 3.4 oz) 10/04/21 110.2 kg - Care Everywhere meds reviewed: Scheduled: Reviewed, includes Nexium insulin, Keppra, phenobarbital, senna Continuous: none Labs reviewed: Sodium Date Value Ref Range Status 03/31/2023 139 135 - 145 mmol/L Final Potassium Date Value Ref Range Status 03/31/2023 3.6 3.5 - 5.0 mmol/L Final Chloride Date Value Ref Range Status 03/31/2023 105 98 - 108 mmol/L Final CO2 Date Value Ref Range Status 03/31/2023 25 21 - 31 mmol/L Final BUN Date Value Ref Range Status 03/31/2023 8 7 - 25 mg/dL Final Creatinine Date Value Ref Range Status 03/31/2023 0.67 0.50 - 1.20 mg/dL Final Magnesium Date Value Ref Range Status 03/31/2023 1.8 1.6 - 2.6 mg/dL Final Phosphorous Date Value Ref Range Status 03/31/2023 3.1 2.2 - 4.6 mg/dL Final Albumin Date Value Ref Range Status 03/30/2023 3.6 3.5 - 5.0 g/dL Final Prealbumin Date Value Ref Range Status 03/30/2023 21 17 - 34 mg/dL Final Glucose Date Value Ref Range Status 03/31/2023 79 70 - 99 mg/dL Final WBC/Hgb/Hct/Plts: 7.50/12.6/39.4/161 (03/31 516) Lab Results Component Value Date GLUCOSE 79 03/31/2023 GLUCOSE 72 03/30/2023 GLUCOSE 107 (H) 03/30/2023 GLUCOSE 94 03/30/2023 GLUCOSE 101 (H) 03/30/2023 No results found for: HGBA1C No results found for: [id number] GI: 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 Skin: Nikolai Score: 13 Edema- none documented Active Wounds: Wound Skin Tear 03/30/23 1200 Anterior;Left;Lower Leg (1) Wound Friction 03/30/23 1200 Buttocks (1) Respiratory: Oxygen therapy: MV (A/C PRVC) PEEP: 6 FiO2: 30% Cognitive Status: obtunded Estimated Nutrition Needs: Weight Used: 64 kg (adj IBW for BMI of 25) & 52 kg (IBW) EEN: 0034-1405 kcal/day (25-30 kcal/kg adjusted IBW) Or 3562-5999 kcal/day (30-35 kcal/kg IBW) EPN: 78-104 g/day (1.5-2.0 g/kg IBW) EFN: 4746-3850 mL/day (25-30 mL/kg adj IBW) Malnutrition Diagnosis: Indications of Malnutrition: Unable to assess (d/t MV/obtundation) based on the AND/ASPEN Malnutrition Criteria [address], LD, [facility] Pager #[phone] I have seen and examined the patient with the resident/SEWING TEACHER on 03/31 I have personally reviewed all the imaging and laboratory data and also reviewed the note. I agree with the assessment and plan with the following additions : BP 155/85 Pulse 67 Temp 97.6 F (36.4 C) (Oral) Resp 14 Wt 89 kg (196 lb 3.4 oz) SpO2 100% General: no signs of distress HEENT: no bruits, no neck stiffness CVS: regular rate and rhythm , no murmur. Lungs: clear to auscultation, no wheezes or crackles Abdomen: soft non tender non distended, +ve Bowel sounds. Extremities: no edema, + pulses Neuro:MS: Sedation held Not FC Pupils reacting to light Corneals, gaga nd cough intact Moves the right UE antigravity Trace response to pain in left UE and aga LE HCT: Left cerebral and cerebellar atrophy Assessment and Plan: This is a 37 yo female with H/o epilepsy, HTN, ? 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 Prior Brain MRI Left cerebral and left cerebellar atrophy concerning for Iegd-Atpungkh-Qzkivb syndrome vs Donald encephalitis. 1. CLINICAL RESEARCH MONITOR: Status epilepticus W/up for etiology of relapse of SZ Continue Keppra and Phenobarb Phenoarb level after few doses CEEG, CT brain 2. Pulmonary: Acute Respiratory failure. ANIRUDH. CMV for now 3. CVS: HTN. Target <160. Resume antiHTN as needed Elevated troponin likely demand ischemia, improving 4. GI: Tube feeds 5. Renal: DC IVF 6. ID: Stable. Glaser Cx 7. Hem: Stable 8. Endo: SSI 9. Prophylaxis:GI, DVT proph. Lovenox DC Law This critically ill patient is unstable and is at high risk of imminent or life threatening deterioration due to her Status epilepticus, respiratory failure I personally spent 35 min of critical care time assessing and formulating a plan for this patient which was exclusive of time spent on procedures or teaching. Management of Status epilepticus, patient's airway and ventilator was performed. Chery Schmitz MD [employer] Department of Neurology Long-Term EEG Daily EEG Report: Start Time: 03/30/2023@1602 Reviewed: 03/30/2023@1602-03/30/2023@2359 History/Indication: 37yoF admitted on 03/30/2023 with status epilepticus. cEEG obtained to monitor for ongoing seizures and treatment response. Medications: [START ON 03/31/2023] chlorhexidine 15 mL Mouth/Throat Q12H esomeprazole 40 mg Per NG tube Daily Gabapentin 400 mg Per NG tube Q8H Insulin regular Subcutaneous Q6H levETIRAcetam 1,500 mg Intravenous Q12HNS [START ON 03/31/2023] PHENobarbital 32.4 mg Per NG tube Daily PHENobarbital 48.6 mg Per NG tube Q24H Senna 8.6 mg Oral Daily Or Senna 8.6 mg Per NG tube Daily [START ON 03/31/2023] Sertraline 125 mg Per NG tube Daily Sodium chloride 0.9% w/potassium cl Technical Description: This is a 21-channel digital EEG recording with time-locked video and single-channel electrocardiogram. Electrodes are placed according to the 10 to 20 International System. The patient was monitored continuously by EEG technicians with EEG reviewed intermittently and annotations made to the EEG record every two hours. Portions of this record are reviewed using bandpass filters of 1 to 70 Hz and sensitivity of 7mV/mm. EEG Findings Clinical State: intubated INTERICTAL: Background: continuous, asymmetric, no PDR, absent AP gradient Superimposed Frequencies: excess beta, alpha , delta/theta Voltage: >20V Reactivity: -03/30/2023@1643(CYSTE): no EEG/clinical reactivity State Change: present without N2 ; quiet state with diffuse decrease in amplitude and fast activity Focal Asymmetry: continuous R hemispheric polymorphic delta slowing Rhythmic or Periodic Patterns: occasional 0.5-1.0Hz SI-LRDA over R hemisphere Sporadic ED's: frequent R temporal sharp/spike-waves maximal at T8/F8>P8 with broad field Brief Rhythmic Discharges: none EKG: NSR ICTAL / EVENTS: Seizure: none Other Clinical Events: none Activation Procedures Hyperventilation: N/A Photic stimulation: N/A Summary EEG findings: Diffuse slowing/disorganization R hemispheric slowing Excess beta Frequent R temporal IEDs Occasional 0.5-1.0Hz SI-LRDA No EKG abnormality Impression: Nonspecific moderate diffuse encephalopathy, in part due to medication effect R hemispheric structural or physiologic abnormality R temporal cortical irritation and risk for focal onset seizures D/W primary team This is an ongoing cEEG study and this note is updated periodically. The complete report will be available when the study is ended. Torrey Heller MD Golf Instructor Department of Neurology, Epilepsy Division Vent Settings: Ventilator/Non-Ventilator Mode: A/C PRVC Set/Target Tidal Volume: 350 Set Respiratory Rate/Release Rate: 18 PEEP (cm H2O): 6 30% Recent ABG/VBG: pH/PCO2/PO2/HCO3: 7.39/44/86/27 (03/30 1337) Plan of Care: Wean vent per protocol, provide pulmonary hygiene, and daily SBTs when the pt qualifies. The patients respiratory plan of care was updated by Denilson Tamez RCP 03/30/2023 5:42 PM I have seen and examined the patient with the resident/SEWING TEACHER today. I have personally reviewed all the imaging and laboratory data and also reviewed the note. I agree with the assessment and plan with the following additions : BP 135/90 (BP Location: Left arm, BP Position: Lying) Pulse 68 Temp 97.9 F (36.6 C) (Oral) Resp 19 SpO2 100% General: no signs of distress HEENT: no bruits, no neck stiffness CVS: regular rate and rhythm , no murmur. Lungs: clear to auscultation, no wheezes or crackles Abdomen: soft non tender non distended, +ve Bowel sounds. Extremities: no edema, + pulses Neuro:MS: Sedation held Not FC Pupils reacting to light Corneals, gaga nd cough intact Moves the right UE antigravity Trace response to pain in left UE and aga LE HCT: P Assessment and Plan: This is a 37 yo female with H/o epilepsy, HTN, ? 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 1. CLINICAL RESEARCH MONITOR: Status epilepticus W/up for etiology of relapse of SZ Continue Keppra and Phenobarb Phenoarb level after few doses Hold Ativan drip CEEG, CT brain 2. Pulmonary: Acute Respiratory failure. ANIRUDH. CXR, ABG. Wean vent as tolerated. 3. CVS: HTN. Target <160. Resume antiHTN as needed Elevated troponin likely demand ischemia 4. GI: NPO for now 5. Renal: F/up UOP. Lactate, CK. Continue IVF 6. ID: Stable. Glaser Cx 7. Hem: Stable 8. Endo: SSI 9. Prophylaxis:GI, DVT proph This critically ill patient is unstable and is at high risk of imminent or life threatening deterioration due to her Status epilepticus, respiratory failure I personally spent 35 min of critical care time assessing and formulating a plan for this patient which was exclusive of time spent on procedures or teaching. Management of Status epilepticus, patient's airway and ventilator was performed. Chery Schmitz MD [employer] Department of Neurology Department of Pharmacy Outside Facility Transfer Note Patient: Mary Claudio Room/Bed: 1013/A Patient has transferred from the Emergency Department at [facility] . I have contacted the facility and confirmed the following antimicrobial, antiepileptic, and anticoagulant medications were received by the patient prior to arrival at [facility]: Antiepileptics: Fosphenytoin 1000mg 03/29/23 @ 1815 Fosphenytoin 1000mg 03/29/23 @ 1905 Ativan 2mg IVP 03/29/23 @ 1831 Ativan 2mg IVP 03/29/23 @ 1935 Versed gtt 03/29/23 @ 2114 (continued through 03/30 prior to tx) Propofol gtt 03/29/23 @ 1821 Keppra 1000mg IV 03/30/23 @ 0600 Phenobarbital 32.4mg per NG tube 03/30/23 @ 0642 Antibiotics: Zosyn 4.5g IV x1 03/29/23 @ 2004 Other: Fentanyl gtt 03/29/23 No anticoagulants were administered per RN. Please feel free to contact me with any further questions. Name: Mirella Duarte RPH Phone #: [phone] Date/Time: 03/30/2023 12:51 PM documented in this encounter [facility] 04-06-2023 Hospital course Narrative Images from the original note were not included. Hospital Medicine Discharge Summary Patient Name Mary Claudio Age (Date of ) 37 y.o. (1985) Admit Date 03/30/2023 Discharge Date 04/06/2023 Inpatient Days 7 Primary Diagnoses Status epilepticus Action Items Outpatient echocardiogram Follow-up with neurology in epilepsy clinic Dear Doctors, I recently had the opportunity to care for Mary Claudio during her recent hospital stay at [facility]. As you may know, Ms. Claudio is a 37 y.o. female epilepsy, Kqnp-Fduggexq-Psbfbu syndrome who presented with status epilepticus. She was admitted to the NCCU and her seizures were controlled with keppra/phenobarbital. She was ultimately extubated on 04/03 and repeat EEG did not reveal any further seizures. She did have a brief seizure lasting less than 30 seconds on the evening of 04/04 for which neurology recommended increasing her keppra dose and continued outpatient follow-up in epilepsy clinic. She did briefly express some left sided weakness but MRI was unrevealing for an acute pathology. She did have a mild troponin leak on admission and echo was attempted but the patient became too agitated to complete testing. This will be deferred to outpatient. Upon discharge the patient's code was Full Code Please see the remainder of this document for relevant data from this admission as well as the patient's discharge instructions and follow-up appointments.. An electronic copy of the patient's records can be obtained via [facility] at [email or web address] It has been my pleasure participating in this patient's care. Please contact me with any questions or concerns regarding her hospital stay. The total time of discharge was 40 minutes. Sincerely, Matthew Lima MD Division of Hospital Medicine Relevant Data from this Admission Vitals BP: 146/87 Pulse (Heart Rate): 84 Resp Rate: 18 Temp: 97.5 F (36.4 C) O2 Sat (%): 97 % Weight: 87.2 kg (192 lb 3.2 oz) Physical Exam on Discharge Resp: lungs clear to auscultation bilaterally, normal work of breathing CV:: RRR, systolic murmur, normal S1 and S2, No KENDALL Psych: Ox3, appropriate affect and cognition Recent Labs 04/05/23 0054 04/06/23 0617 WBC 7.22 5.80 HGB 12.3 14.7 PLATELET 175 181 SODIUM 137 -- POTASSIUM 3.4* -- CO2 22 -- ANIONGAP 15 -- BUN 6* -- CREATSERUM 0.47* -- MAGNESIUM 1.6 -- PHOSPHORUS 3.6 -- Indications of Malnutrition: Unable to assess (d/t MV/obtundation) Patient Instructions on Discharge No future appointments. [place] [phone] Medication List CHANGE how you take these medications Levetiracetam 1000 MG TABS What changed: how much to take * PHENobarbital 16.2 MG TABS Commonly known as: LUMINAL What changed: medication strength how much to take when to take this * PHENobarbital 32.4 MG TABS Commonly known as: LUMINAL Start taking on: April 07, 2023 What changed: medication strength how much to take when to take this * This list has 2 medication(s) that are the same as other medications prescribed for you. Read the directions carefully, and ask your doctor or other care provider to review them with you. CONTINUE taking these medications amLODIPine 10 MG TABS Commonly known as: NORVASC faMOTIdine 20 MG TABS Commonly known as: PEPCID Folic acid 1 MG TABS Commonly known as: FOLVITE furOSEmide 40 MG TABS Commonly known as: LASIX Gabapentin 400 MG CAPS Commonly known as: NEURONTIN Potassium chloride 20 MEQ tab ER tablet Commonly known as: K-DUR * Sertraline 100 MG TABS Commonly known as: ZOLOFT * Sertraline 25 MG TABS Commonly known as: ZOLOFT spironolactone 50 MG TABS Commonly known as: ALDACTONE * This list has 2 medication(s) that are the same as other medications prescribed for you. Read the directions carefully, and ask your doctor or other care provider to review them with you. Discharge Orders AMB REFERRAL TO NEUROLOGY AMB REFERRAL TO NEUROLOGY Discharge Condition: Improving Discharge Summary: Enclosed Admission H&P Valid: Yes Patient Aware of Diagnosis: Yes Free of Communicable Disease: Yes Rehab Potential: Excellent Level of Care: Skilled Activity as tolerated Diet (specify) Vital Signs per Facility Protocol Physical Therapy Eval and Treat per Facility Occupational Therapy Eval and Treat per Facility ECHOCARDIOGRAM TRANSTHORACIC documented in this encounter [facility] 04-06-2023 Nurse Note BEHAVIORAL EMERGENCY RESPONSE TEAM (ERIN) RN NOTE 04/06/2023 Mary Claudio : 1985 Called to see patient by Trisha BANERJEE who reports pt has been screaming and is restless, anxious, and frustrated with being in the hospital. On arrival, pt had calmed and RN was providing care. This RN introduced self and provided education on the role of ERIN. Pt explained that she was frustrated with being stuck in a room and requested to take a walk with staff. Pt was brought a coloring book and word-search book and pt expressed thankfulness and states, I love word-searches. DEVELOPMENT COACH and bedside RN assisted pt to ambulate around the unit. No further needs noted for the ERIN at this time. Pt did not appear to be in distress. Call ERIN as needed if/when behavioral or emotional issues arise. ERIN is available daily between [phone]. Robby SIMMONS, RN- ERIN Pager: [phone] ERIN Phone: [phone] [facility] 04-05-2023 Plan of care note Neurology plan of care: Notified that the patient had a 30 second generalized seizure with prodrome of being agitated and feeling hot; seizure included loss of bladder and bowel, the patient was post ictal afterward. No rescue medications were given. Recommend: - increase keppra to 1.5g BID at this time - continue PHB 32.4 mg/48.6 mg - continue gabapentin 400 mg q8h - referral to [facility] on discharge Discussed with Dr. Martínez. Nithya Judd MD Neurology, PGY-4 Pager #[phone] [facility] Work Phone: 04-05-2023 Nurse Note BEHAVIORAL EMERGENCY RESPONSE TEAM (ERIN) NOTE 04/05/2023 Mary Claudio : 1985 Called to see patient by Rex BANERJEE for patient agitated and yelling. She is stating she is hot and wants to leave her room. RN at bedside attempting to assist patient. On [facility] arrival to bedside primary RN reports patient was screaming and upset, and then began to have what appeared to be a seizure. She had soiled herself during and staff were in room assisting with getting patient cleaned up. During this process patient begins to again yell that she is hot and wants to go outside. Patient eventually agrees to allow herself be cleaned and have a fresh gown put on before taking a walk in the barber. Thermostat in room was adjusted to 68 degrees per her complaint that room was too hot. Patient is able to ambulate in hallway with assistance from RN, gait belt, and walker. Staff followed her with a chair in case it was needed. Patient states she does not want to go back in her room at this time. When asked why the only reasoning she can give is, I'm hot. Patient is agreeable to sitting in reclining chair in hallway outside of her door. She is calmer while sitting in barber, and begins to appear drowsy after a short time. Pillow and sheet provided for comfort. Recommendations/plan include: Patient may benefit from brief frequent checks and/or having time to sit in hallway where she can see staff. She hints that she does not like being alone in her room, although she does not answer when asked if this was a factor. The [facility] Team is available [phone] every day. Please use ERIN as a resource for patient as needed. Report given to Rex KHAN Pager: [phone] ERIN [facility] 04-05-2023 Consult note Associated Order (s): IP CONSULT TO INFECTIOUS DISEASE INFECTIOUS DISEASE CONSULT NOTE Referring MD: Tashia Hoffman MD Reason for Consult: Osh blood cultures 1/2 positive for p acnes. Clinically stable after treatment in ICU for status epilepticus Chief Complaint: status epilepticus HPI: Mary Claudio is a 37 y.o. female pmhx epilepsy, cognitive impairment (Phbw-Yalhokuc-Tpaxnp Syndrome) presenting initially to OSH for status epilepticus, transferred to [facility] for further management, we are being consulted for 1/2 P Acnes + blood cultures at OSH She reports that prior to hospitalization she did not have any fevers chills or night sweats. She does not really remember her hospitalization, though she does report that since moving from the ICU, she has a mild cough that is occasionally productive of sputum, denies dyspnea and is on room air. Has some generalized abdominal pain, denies dysuria, nausea, vomiting. She reports she had a BM this morning without melena or red blood. She reports some neck pain and stiffness, but ROM is intact. Denies any vision changes or headaches. She has been afebrile and HD stable, there is no leukocytosis. She had MRI brain that showed sequela of her previously known Aevm-Ptzjxmgj-Dxqrlm syndrome, sequelae of long-standing epilepsy and nonspecific FLAIR hyperintensities, neurology is following. Antibiotics Received: none Exposures and Risk Factors Sick Contacts: none Travel: no Animal Contact or Insect Bites: no TB risk factors: none Occupational or Environmental Exposures: none Implants/hardware: none Drug use: no Sexual Activity: no concern for STIs Review of Systems - (all positives in bold, otherwise negative) GENERAL: fever, chills, weight loss, fatigue, night sweats EYES: blurry vision, eye pain HENT: headache, hearing loss, sore throat, dysphagia, sinus pain CARDIO: chest pain, palpitations, orthopnea PULM: shortness of breath, wheezing, cough, sputum, hemoptysis GI: nausea, vomiting, diarrhea, abdominal pain, blood in stool : urinary frequency, urgency, dysuria, urethral discharge MSK: joint pain, back pain, swelling SKIN: rash, redness HEME: easy bruising, bleeding No past medical history on file. No past surgical history on file. Social History Socioeconomic History Marital status: No family history on file. Medications Prior to Admission Medication Sig Dispense Refill Last Dose amLODIPine 10 MG tablet Take 1 tablet by mouth daily. faMOTIdine 20 MG tablet Take 1 tablet by mouth daily. Folic acid 1 MG tablet Take 1 tablet by mouth daily. furOSEmide 40 MG tablet Take 1 tablet by mouth daily. Gabapentin 400 MG capsule Take 1 capsule by mouth 3 times daily. Levetiracetam 1000 MG tablet Take 1 tablet by mouth 2 times daily. PHENobarbital 15 MG tablet Take 1 tablet by mouth every evening. phenobarbital 30 MG tablet Take 1 tablet by mouth 2 times daily. Potassium chloride 20 MEQ Tab CR tablet Take 1 tablet by mouth 2 times daily. Sertraline 100 MG tablet Take 1 tablet by mouth daily. Take with 25mg tablet for total dose of 125mg Sertraline 25 MG tablet Take 1 tablet by mouth daily. Take with 100mg tablet for total dose of 125mg spironolactone 50 MG tablet Take 1 tablet by mouth daily. Inpatient Medications: amLODIPine 10 mg Oral Daily enoxaparin 40 mg Subcutaneous Daily Gabapentin 400 mg Oral Q8H levETIRAcetam 1,250 mg Intravenous Q12HNS Pantoprazole 40 mg Oral Daily PHENobarbital 32.4 mg Oral Daily PHENobarbital 48.6 mg Oral Q24H Polyethylene glycol 17 g Oral Daily Senna 17.2 mg Oral Daily Sertraline 125 mg Oral Daily Spironolactone 50 mg Oral Daily Not on File OBJECTIVE FINDINGS: Vital Signs (24hrs): Temp: [97.6 F (36.4 C)-98.3 F (36.8 C)] 98 F (36.7 C) Pulse (Heart Rate): [71-85] 75 Resp Rate: [15-18] 16 BP: (92-171)/(50-93) 159/93 O2 Sat (%): [95 %-99 %] 95 % Physical Exam: GEN: Awake, resting comfortably EYES: EOMI, no scleral icterus HENT: MMM. No oral lesions. Poor dentition. NECK: Supple, no cervical lymphadenopathy or meningismus. CARDIO: RRR, no murmur. PULM/CHEST: CTAB. No increased work of breathing ABD: Soft, mild diffuse tenderness, not distended MSK: no obvious effusion, swelling, increased warmth, or erythema of major joints. No pedal edema. SKIN: No rashes. Hands and fingers appear normal. No stigmata of endocarditis. NEURO: AOx3. Moves all four extremities. Diagnostic Data: Lab Results Component Value Date WBC 7.22 04/05/2023 HGB 12.3 04/05/2023 HCT 38.5 04/05/2023 PLATELET 175 04/05/2023 MCV 90.6 04/05/2023 Lab Results Component Value Date RBCDISTRIBU 13.1 04/05/2023 GRNLOCYT 73.7 03/30/2023 LYMPHOCYT 15.6 03/30/2023 MONOCYTELEC 9.6 03/30/2023 EOSINOPHILS 0.5 03/30/2023 BASOPHILS 0.2 03/30/2023 LYMPHOCYTABS 1.33 03/30/2023 EOSINOPHLABS 0.04 03/30/2023 PLATELET 175 04/05/2023 MPV 11.3 04/05/2023 Bun/Creat/Cl/CO2/Glucose: 6/0.47/103/22/82 (04/05 53) Na/K+/Phos/Mg/Ca: 137/3.4/3.6/1.6/-- (04/05 53) Estimated Creatinine Clearance: 170 mL/min (A) (by C-G formula based on SCr of 0.47 mg/dL (L)). Lab Results Component Value Date ALT 12 03/30/2023 AST 40 (H) 03/30/2023 ALKPHOS 71 03/30/2023 BILITOTAL 0.8 03/30/2023 BILIDIRECT 0.1 03/30/2023 No results found for: SEDRATE No results found for: CRP Urinalysis Lab Results Component Value Date SPGRVTYUR 1.027 03/30/2023 GLUCOSEURINE Negative 03/30/2023 KETONESURINE Negative 03/30/2023 BLOODURINE Moderate (A) 03/30/2023 NITRITESURIN Negative 03/30/2023 LEUKOCESTUR Trace (A) 03/30/2023 WBCURINE 6 - 10 (A) 03/30/2023 RBCURINE >25 (A) 03/30/2023 BACTERIAURIN ABSENT 03/30/2023 Microbiology and Other Significant ID Labs: (personally reviewed) Imaging: (personally reviewed) MRI BRAIN WITHOUT CONTRAST Final Result IMPRESSION: 1. Asymmetric volume loss involving the left cerebral hemisphere and cerebellar volume loss involving the left cerebellar hemisphere, could relate to Wrfv-Avxpqtqw-Nxhjfn syndrome given asymmetric thickening of left parietal bone. Other considerations would include Donald encephalitis and sequelae of long-standing epilepsy. 2. 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 3. Few nonspecific FLAIR hyperintensities in the periventricular and cortical white matter and the posterior fossa. Differential consideration include sequelae of remote demyelination, other infectious/inflammatory insults as well as chronic microvascular ischemic disease. PLAIN FILM FOR NEURO EXAM Final Result IMPRESSION: No radiopaque foreign bodies to preclude MRI. ABDOMEN 1 VIEW Final Result IMPRESSION: Postpyloric Dobbhoff position. ABDOMEN 1 VIEW PORTABLE Final Result IMPRESSION: Enteric tube has been slightly retracted but remains looped in the proximal stomach. Repositioning recommended. There are a couple mildly dilated small bowel loops in a pattern suggesting ileus. ABDOMEN 1 VIEW PORTABLE Final Result IMPRESSION: Enteric tube is now looped in the distal stomach with tip in the proximal stomach. Repositioning recommended. HEAD WITHOUT CONTRAST Final Result IMPRESSION: Asymmetric volume loss is noted in the left cerebral hemisphere and more subtly in the left cerebellar hemisphere. Differential considerations, as above. ABDOMEN 1 VIEW Final Result IMPRESSION: Gastric tube is partially looped in the proximal stomach. Consider repositioning. CHEST 1 VIEW PORTABLE Final Result IMPRESSION: Life support devices in place. No acute process. CARDIOGRAM (Results Pending) ASSESSMENT: Mary Claudio is a 37 y.o. female pmhx epilepsy, cognitive impairment (Jtyi-Khaqqsan-Bvyhkq Syndrome) presenting initially to OSH for status epilepticus, transferred to [facility] for further management, we are being consulted for 1/2 P Acnes + blood cultures at OSH. P. Acnes (Cutibacterium acnes) positive blood culture- likely contaminate, has not received antibiotics while at [facility], remains afebrile and HD stable. Very low concern for bacteremia. RECOMMENDATIONS: Diagnostics: none Therapeutics: Would continue to monitor off of antimicrobials [facility] ID Team 2 will sign off. Please call with questions. Deepak Greene MD Resident Physician Department of Internal Medicine [facility] Pager [phone] Associated attestation - Tenisha Steiner MD - 04/05/2023 2:55 PM EST I agree with Dr. Greene's note below, patient seen and examined on 04/05. I have edited the note to reflect my thoughts including the history, physical exam, and medical decisions. I have independently interviewed and examined the patient and I discussed the findings and therapeutic plan with the fellow and we collaborated on medical decision making for this patient. Patient with one of two blood cultures with P. acnes. This is most likely a contaminant, and would not recommend treatment; as subsequent blood cultures were no growth. ID Team 2 will sign off. Please page the ID Team 2 pager. DO NOT PAGE THE ON-CALL FELLOW PAGER, UNLESS THE TEAM 2 PAGER IS UNAVAILABLE. Tenisha Steiner MD [employer] Division of Infectious Diseases Pager #[phone] [facility] Work Phone: 04-05-2023 Consult note Associated Order (s): IP CONSULT TO INFECTIOUS DISEASE INFECTIOUS DISEASE CONSULT NOTE Referring MD: Tashia Hoffman MD Reason for Consult: Osh blood cultures 1/2 positive for p acnes. Clinically stable after treatment in ICU for status epilepticus Chief Complaint: status epilepticus HPI: Mary Claudio is a 37 y.o. female pmhx epilepsy, cognitive impairment (Dncm-Exrfmzsk-Bfmxih Syndrome) presenting initially to OSH for status epilepticus, transferred to [facility] for further management, we are being consulted for 1/2 P Acnes + blood cultures at OSH She reports that prior to hospitalization she did not have any fevers chills or night sweats. She does not really remember her hospitalization, though she does report that since moving from the ICU, she has a mild cough that is occasionally productive of sputum, denies dyspnea and is on room air. Has some generalized abdominal pain, denies dysuria, nausea, vomiting. She reports she had a BM this morning without melena or red blood. She reports some neck pain and stiffness, but ROM is intact. Denies any vision changes or headaches. She has been afebrile and HD stable, there is no leukocytosis. She had MRI brain that showed sequela of her previously known Ympu-Wsredege-Exneyy syndrome, sequelae of long-standing epilepsy and nonspecific FLAIR hyperintensities, neurology is following. Antibiotics Received: none Exposures and Risk Factors Sick Contacts: none Travel: no Animal Contact or Insect Bites: no TB risk factors: none Occupational or Environmental Exposures: none Implants/hardware: none Drug use: no Sexual Activity: no concern for STIs Review of Systems - (all positives in bold, otherwise negative) GENERAL: fever, chills, weight loss, fatigue, night sweats EYES: blurry vision, eye pain HENT: headache, hearing loss, sore throat, dysphagia, sinus pain CARDIO: chest pain, palpitations, orthopnea PULM: shortness of breath, wheezing, cough, sputum, hemoptysis GI: nausea, vomiting, diarrhea, abdominal pain, blood in stool : urinary frequency, urgency, dysuria, urethral discharge MSK: joint pain, back pain, swelling SKIN: rash, redness HEME: easy bruising, bleeding No past medical history on file. No past surgical history on file. Social History Socioeconomic History Marital status: No family history on file. Medications Prior to Admission Medication Sig Dispense Refill Last Dose amLODIPine 10 MG tablet Take 1 tablet by mouth daily. faMOTIdine 20 MG tablet Take 1 tablet by mouth daily. Folic acid 1 MG tablet Take 1 tablet by mouth daily. furOSEmide 40 MG tablet Take 1 tablet by mouth daily. Gabapentin 400 MG capsule Take 1 capsule by mouth 3 times daily. Levetiracetam 1000 MG tablet Take 1 tablet by mouth 2 times daily. PHENobarbital 15 MG tablet Take 1 tablet by mouth every evening. phenobarbital 30 MG tablet Take 1 tablet by mouth 2 times daily. Potassium chloride 20 MEQ Tab CR tablet Take 1 tablet by mouth 2 times daily. Sertraline 100 MG tablet Take 1 tablet by mouth daily. Take with 25mg tablet for total dose of 125mg Sertraline 25 MG tablet Take 1 tablet by mouth daily. Take with 100mg tablet for total dose of 125mg spironolactone 50 MG tablet Take 1 tablet by mouth daily. Inpatient Medications: amLODIPine 10 mg Oral Daily enoxaparin 40 mg Subcutaneous Daily Gabapentin 400 mg Oral Q8H levETIRAcetam 1,250 mg Intravenous Q12HNS Pantoprazole 40 mg Oral Daily PHENobarbital 32.4 mg Oral Daily PHENobarbital 48.6 mg Oral Q24H Polyethylene glycol 17 g Oral Daily Senna 17.2 mg Oral Daily Sertraline 125 mg Oral Daily Spironolactone 50 mg Oral Daily Not on File OBJECTIVE FINDINGS: Vital Signs (24hrs): Temp: [97.6 F (36.4 C)-98.3 F (36.8 C)] 98 F (36.7 C) Pulse (Heart Rate): [71-85] 75 Resp Rate: [15-18] 16 BP: (92-171)/(50-93) 159/93 O2 Sat (%): [95 %-99 %] 95 % Physical Exam: GEN: Awake, resting comfortably EYES: EOMI, no scleral icterus HENT: MMM. No oral lesions. Poor dentition. NECK: Supple, no cervical lymphadenopathy or meningismus. CARDIO: RRR, no murmur. PULM/CHEST: CTAB. No increased work of breathing ABD: Soft, mild diffuse tenderness, not distended MSK: no obvious effusion, swelling, increased warmth, or erythema of major joints. No pedal edema. SKIN: No rashes. Hands and fingers appear normal. No stigmata of endocarditis. NEURO: AOx3. Moves all four extremities. Diagnostic Data: Lab Results Component Value Date WBC 7.22 04/05/2023 HGB 12.3 04/05/2023 HCT 38.5 04/05/2023 PLATELET 175 04/05/2023 MCV 90.6 04/05/2023 Lab Results Component Value Date RBCDISTRIBU 13.1 04/05/2023 GRNLOCYT 73.7 03/30/2023 LYMPHOCYT 15.6 03/30/2023 MONOCYTELEC 9.6 03/30/2023 EOSINOPHILS 0.5 03/30/2023 BASOPHILS 0.2 03/30/2023 LYMPHOCYTABS 1.33 03/30/2023 EOSINOPHLABS 0.04 03/30/2023 PLATELET 175 04/05/2023 MPV 11.3 04/05/2023 Bun/Creat/Cl/CO2/Glucose: 6/0.47/103/22/82 (04/05 53) Na/K+/Phos/Mg/Ca: 137/3.4/3.6/1.6/-- (04/05 53) Estimated Creatinine Clearance: 170 mL/min (A) (by C-G formula based on SCr of 0.47 mg/dL (L)). Lab Results Component Value Date ALT 12 03/30/2023 AST 40 (H) 03/30/2023 ALKPHOS 71 03/30/2023 BILITOTAL 0.8 03/30/2023 BILIDIRECT 0.1 03/30/2023 No results found for: SEDRATE No results found for: CRP Urinalysis Lab Results Component Value Date SPGRVTYUR 1.027 03/30/2023 GLUCOSEURINE Negative 03/30/2023 KETONESURINE Negative 03/30/2023 BLOODURINE Moderate (A) 03/30/2023 NITRITESURIN Negative 03/30/2023 LEUKOCESTUR Trace (A) 03/30/2023 WBCURINE 6 - 10 (A) 03/30/2023 RBCURINE >25 (A) 03/30/2023 BACTERIAURIN ABSENT 03/30/2023 Microbiology and Other Significant ID Labs: (personally reviewed) Imaging: (personally reviewed) MRI BRAIN WITHOUT CONTRAST Final Result IMPRESSION: 1. Asymmetric volume loss involving the left cerebral hemisphere and cerebellar volume loss involving the left cerebellar hemisphere, could relate to Qqfs-Yefsqklj-Dsajye syndrome given asymmetric thickening of left parietal bone. Other considerations would include Donald encephalitis and sequelae of long-standing epilepsy. 2. 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 3. Few nonspecific FLAIR hyperintensities in the periventricular and cortical white matter and the posterior fossa. Differential consideration include sequelae of remote demyelination, other infectious/inflammatory insults as well as chronic microvascular ischemic disease. PLAIN FILM FOR NEURO EXAM Final Result IMPRESSION: No radiopaque foreign bodies to preclude MRI. ABDOMEN 1 VIEW Final Result IMPRESSION: Postpyloric Dobbhoff position. ABDOMEN 1 VIEW PORTABLE Final Result IMPRESSION: Enteric tube has been slightly retracted but remains looped in the proximal stomach. Repositioning recommended. There are a couple mildly dilated small bowel loops in a pattern suggesting ileus. ABDOMEN 1 VIEW PORTABLE Final Result IMPRESSION: Enteric tube is now looped in the distal stomach with tip in the proximal stomach. Repositioning recommended. HEAD WITHOUT CONTRAST Final Result IMPRESSION: Asymmetric volume loss is noted in the left cerebral hemisphere and more subtly in the left cerebellar hemisphere. Differential considerations, as above. ABDOMEN 1 VIEW Final Result IMPRESSION: Gastric tube is partially looped in the proximal stomach. Consider repositioning. CHEST 1 VIEW PORTABLE Final Result IMPRESSION: Life support devices in place. No acute process. CARDIOGRAM (Results Pending) ASSESSMENT: Mary Claudio is a 37 y.o. female pmhx epilepsy, cognitive impairment (Yren-Bhqcokmz-Nkkmql Syndrome) presenting initially to OSH for status epilepticus, transferred to [facility] for further management, we are being consulted for 1/2 P Acnes + blood cultures at OSH. P. Acnes (Cutibacterium acnes) positive blood culture- likely contaminate, has not received antibiotics while at [facility], remains afebrile and HD stable. Very low concern for bacteremia. RECOMMENDATIONS: Diagnostics: none Therapeutics: Would continue to monitor off of antimicrobials [facility] ID Team 2 will sign off. Please call with questions. Deepak Greene MD Resident Physician Department of Internal Medicine [facility] Pager [phone] Associated attestation - Tenisha Steiner MD - 04/05/2023 2:55 PM EST I agree with Dr. Greene's note below, patient seen and examined on 04/05. I have edited the note to reflect my thoughts including the history, physical exam, and medical decisions. I have independently interviewed and examined the patient and I discussed the findings and therapeutic plan with the fellow and we collaborated on medical decision making for this patient. Patient with one of two blood cultures with P. acnes. This is most likely a contaminant, and would not recommend treatment; as subsequent blood cultures were no growth. ID Team 2 will sign off. Please page the ID Team 2 pager. DO NOT PAGE THE ON-CALL FELLOW PAGER, UNLESS THE TEAM 2 PAGER IS UNAVAILABLE. Tenisha Steiner MD [employer] Division of Infectious Diseases Pager #[phone] Vascular Access Consult Note: MIDLINE Consultation and Evaluation NOTE: When drawing from midline, 1.) Scrub the hub and use a tourniquet HIGH on the arm 2.) For labs, use a SYRINGE and not a Vacutainer 3.) GENTLY fill syringe, do not pull back vigorously on plunger 4.) May require SLIGHT backward traction on hub while drawing sample 5.) PULSATILE flush of 10mL normal saline Patient seen and evaluated for MIDLINE catheter insertion using ultrasound guidance. ID band present, allergies and limb precautions verified with patient/nurse. Skin integrity within normal limits at time of insertion. No evidence of ecchymosis, infiltration, hematoma, edema, or any condition that would prevent safe insertion of a MIDLINE catheter with ultrasound. I have reviewed pertinent laboratory results. Lab Results Component Value Date WBC 7.50 03/31/2023 HGB 12.6 03/31/2023 HCT 39.4 03/31/2023 PLATELET 161 03/31/2023 PLATELET 161 03/31/2023 MCV 90.8 03/31/2023 Lab Results Component Value Date CREATSERUM 0.67 03/31/2023 Lab Results Component Value Date INR 1.0 03/30/2023 PT 13.1 03/30/2023 Lab Results Component Value Date PTT 22.9 (L) 03/30/2023 Temp Readings from Last 1 Encounters: 03/31/23 99 F (37.2 C) I have discussed the following issues with the ordering clinician: N/A Procedure explained to patient. Anatomical distortion to interfere with placement: attempted x2 on right, unable to advance Arm preference for venous access: Left Arm Patient is cooperative, no distress, appears stated age Patient Teaching: No Family Teaching: No PROCEDURE DETAILS: MIDLINE Insertion Procedure Using standard sterile technique access was obtained. Good blood return noted, catheter flushed easily with 10mL normal saline. Statlock securement device placed dressing applied. Patient denies pain at insertion site. Midline Catheter - Single Lumen EPIV AST 03/31/23 0930 brachial vein, left open-ended catheter 18 gauge (Active) 03/31/23 0930 Midline Type: EPIV Classification: AST Present On Admission : no Lumen 1: Additional Lumens: Lumen 2: Lumen 3: Lumen 4: Lumen 5: Location: brachial vein, left Device: open-ended catheter Size: 18 gauge Inserted Catheter Length (cm): 10 Guiding Device: ultrasound Skate Hop/Lot Number: [id number] Inserted By: registered nurse Unsuccessful Insertion Attempts: 2 Unsuccessful Insertion Attempt Location(s): Pain Prevention: Patient Tolerance: Insertion: tolerated well Catheter Length Distal to Site (cm): Removal Indication: Additional Comments: (Retired/Read Only) Side: (Retired/Read Only) Location: Drain/Device Type: Pain Prevention: Peripheral IV Line - Single Lumen 03/30/23 1200 forearm, anterior, left 20 gauge (Active) 03/30/23 1200 Present On Admission : yes Guiding Device: Lumen 1: Additional Lumens: Lumen 2: Location: forearm, anterior, left Device/Lot Number: Gauge/Length: 20 gauge Unsuccessful Insertion Attempts: Unsuccessful Attempt Location/Site: Pain Prevention/Patient Tolerance: Removal: Additional Comments: Lumen 3: Peripheral IV Present on Admission: (Retired/Read Only) Location: (Retired/Read Only) Device: (Retired/Read Only) Gauge/Length: Skate Hop/Lot Number: Unsuccessful Insertion Attempts: (Retired/Read Only) Unsuccessful Attempt Locations: Pain Prevention: Patient Tolerance: Insertion: Removal Indication: Peripheral IV Location - Orientation: Peripheral IV Location: Insertion Site WDL WDL 03/31/23 08 Site Preparation/Maintenance dressing: dry and intact 03/31/23 08 Securement catheter stabilization device, secured with 03/31/23 08 Lumen 1 Patency/Maintenance flushed without difficulty 03/31/23 08 Phlebitis 0-->no symptoms 03/31/23 08 Infiltration 0-->no symptoms 03/31/23 08 Indication medication therapy;fluid therapy 03/31/23 08 Peripheral IV Line - Single Lumen 03/31/23 0139 blue forearm, posterior, left 22 gauge (Active) 03/31/23 0139 Present On Admission : no Guiding Device: ultrasound Lumen 1: blue Additional Lumens: Lumen 2: Location: forearm, posterior, left Device/Lot Number: Gauge/Length: 22 gauge Unsuccessful Insertion Attempts: Unsuccessful Attempt Location/Site: Pain Prevention/Patient Tolerance: tolerated well Removal: Additional Comments: Lumen 3: Peripheral IV Present on Admission: (Retired/Read Only) Location: (Retired/Read Only) Device: (Retired/Read Only) Gauge/Length: Skate Hop/Lot Number: Unsuccessful Insertion Attempts: (Retired/Read Only) Unsuccessful Attempt Locations: Pain Prevention: Patient Tolerance: Insertion: Removal Indication: Peripheral IV Location - Orientation: Peripheral IV Location: Insertion Site WDL WDL 03/31/23799 Site Preparation/Maintenance dressing: dry and intact 03/31/23799 Securement catheter stabilization device, secured with 03/31/23799 Lumen 1 Patency/Maintenance flushed without difficulty 03/31/23799 Phlebitis 0-->no symptoms 03/31/23799 Infiltration 0-->no symptoms 03/31/23799 Indication fluid therapy;medication therapy 03/31/23799 Patient tolerated procedure well without any complications. Primary RN notified of procedure completion. Extra insertion note if applicable: MIDLINES ARE NOT RECOMMENDED FOR INFUSION OF VESICANTS MIDLINES ARE NOT A GUARANTEED SOURCE FOR RELIABLE BLOOD COLLECTION [X] Antimicrobial dressing. [] Unable to place antimicrobial foam disc/drsg due to: N/A [] Obtained labs. [X] Call light in reach. [X] Bed low and locked. [X] Tray table within reach. Education: Patient/Family informed to notify nurse of any complications including pain, redness, swelling, or leaking post insertion. Thank you for allowing our team to participate in the care of this patient. Vascular Access Team [phone] Vascular Access Consult Note Assessment: Patient seen and evaluated for Ultrasound guided lab draw. ID band present, patient verification completed, allergies verified, and patient/nurse questioned of limb precautions. Skin integrity assessed at time of insertion, no condition present that would prevent safe insertion of a peripheral IV with ultrasound to complete lab draw. Lab request verified, lab orders current. Insertion Using aseptic technique, Ultrasound guided PIV catheter inserted into RAC site to obtain lab draw. Specimen collected. Ultrasound guided PIV removed. Specimen labeled at bedside. Collection process verified in [facility] bedside RN notified of the above Patient safety check completed prior to exiting room [x]Call light. [x]Bed locked. [x]Bed low. [x]Tray table within reach. Thank you for allowing our team to participate in the care of this patient. Vascular Access Team [id number] documented in this encounter [facility] 04-04-2023 Nurse procedure note Overnight Call: Previous Progress Notes and/or H&P Reviewed. Notified of MRI brain results in . IMPRESSION IMPRESSION: 1. Asymmetric volume loss involving the left cerebral hemisphere and cerebellar volume loss involving the left cerebellar hemisphere, could relate to Kdqg-Owgebets-Adauux syndrome given asymmetric thickening of left parietal bone. Other considerations would include Donald encephalitis and sequelae of long-standing epilepsy. 2. 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 3. Few nonspecific FLAIR hyperintensities in the periventricular and cortical white matter and the posterior fossa. Differential consideration include sequelae of remote demyelination, other infectious/inflammatory insults as well as chronic microvascular ischemic disease. Neurological exam is stable with left upper extremity weakness. Defer to Neurology, we will need to discuss. Patient was transferred out of NCCU 04/04 . Not sure if needs a new formal neurology consult. Page neuro on-call Addendum On-call Neurology requested to place a routine consult MRI looks stable from previous. [facility] Work Phone: 04-04-2023 Plan of care note Problem: Patient Care Overview Goal: Plan of Care Review Outcome: Ongoing Goal: Individualization & Mutuality Outcome: Ongoing Goal: Discharge Needs Assessment Outcome: Ongoing Goal: Interdisciplinary Rounds/Family Conf Outcome: Ongoing Problem: Nutrition, Enteral (Adult) Goal: Signs and Symptoms of Listed Potential Problems Will be Absent, Minimized or Managed (Nutrition, Enteral) Description: Signs and symptoms of listed potential problems will be absent, minimized or managed by discharge/transition of care (reference Nutrition, Enteral (Adult) CPG). Outcome: Ongoing Problem: Mobility, Physical Impaired (Adult) Goal: Identify Related Risk Factors and Signs and Symptoms Description: Related risk factors and signs and symptoms are identified upon initiation of Human Response Clinical Practice Guideline (CPG) Outcome: Ongoing Goal: Enhanced Mobility Skills Description: Patient will demonstrate the desired outcomes by discharge/transition of care. Outcome: Ongoing Goal: Enhanced Functionality Ability Description: Patient will demonstrate the desired outcomes by discharge/transition of care. Outcome: Ongoing [facility] 04-04-2023 Plan of care note Problem: PT - Mobility Goal: Ambulation - Patient will ambulate 150 feet with supervision and wheeled walker to improve ability to safely navigate home and community. Outcome: Progressing Toward Goal Problem: PT - Transfers Goal: Supine <-> Sit Transfers - Patient will perform supine to/from sit transfers with modified independence and with use of hospital bed features in order to improve functional mobility and safety. Outcome: Progressing Toward Goal Goal: Stand/Squat Pivot Transfers - Patient will perform stand pivot transfer to/from bed/chair/commode with supervision and wheeled walker in order to improve functional mobility and safety. Outcome: Progressing Toward Goal [facility] 04-04-2023 Plan of care note I assumed care of this patient from offgoing provider Dr. Fagan at 0700 today, I have reviewed relevant documentation, test results, I have examined the patient and discussed plan of care with bedside nurse and relevant consultants. Updates to plan of care are as follows: Awaiting MRI, TTE per recs Complaining of headache, given tylenol and heat packs for relief, mental status overall improved OSH cultures 1/2 positive for p. Acnes. Potentially contaminant, I do not see record of indwelling hardware to cause PHI (not found on MRI screen XR either), given this can be associated with meningitis and patient had prolonged NCCU stay for status with unclear trigger will verify with ID whether further workup for this is indicated. Updated guardian Trina Ren regarding above. [facility] 04-04-2023 Nurse Note Notified MD Yasmin that [facility] hospital this patient came from called and reported 1 of 2 cultures on 03/29 had propionibacterium acnes growing. Val Mendoza RN [facility] 04-04-2023 Hospital Discharge instructions Darlyn Modi RN - 04/04/2023 7:57 AM EST Patient Experience Survey Reminder You may receive a survey in the mail within a few weeks regarding your hospitalization. This helps us to improve the care and services we provide at [facility]. We truly appreciate you taking the time to fill this out. We particularly welcome any specific comments you may have (good or bad!) regarding your experience at [facility] so that we may use them to continue to strive towards excellence for our patients. documented in this encounter [facility] 04-04-2023 Progress note Formatting of t his note is different from the original. Hospital Medicine Transfer Note Patient: Mary Claudio, : 1985, Impression / Plan Mary Claudio is a 37 y.o. female with H epilepsy, cognitive impairment (Hshr-Tnnviozr-Zvkags Syndrome) presenting initially to [facility] for status epilepticus, transferred to [facility] for further management. 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 - initially required intubation, extubated 04/03 - continue maintenance AED w/ keppra 1250mg BID, phenobarb 32.4mg qam + 48.6mg at bedtime - recheck phenobarb level 04/04 - MRI brain pending - no seizures on cEEG (03/30 - 04/01), discontinued - outpatient referral to neuro placed JEANE weakness - neuro checks - f/up MRI brain Elevated trop ?Cardiomyopathy - elevated trop w/o delta at admission, possibly 2/2 critical illness, status epilepticus - f/up echo ordered in NCCU (pt reportedly w/ possible hx of cardiomyopathy?) - echo in 02/2020 w/ EF 59% Constipation - bowel regimen AHRF 2/2 status epilepticus, resolved - extubated 04/03 Depression/anxiety: cont sertraline HTN: continue home amlodipine, spironolactone; home lasix held; titrate as needed, PCP follow-up GERD: cont PPI Complexity. Hypocalcemia - Continue to monitor and replete. Obesity Body mass index is 34.05 kg/m . - Follow with PCP for dietary and lifestyle modifications. DVT prophylaxis: lovenox Anticipated disposition: pending course Code status: FULL Interval History / Subjective Patient initially presented to [facility] w/ status epilepticus requiring intubation, transferred to [facility]. Loaded w/ keppra and phenobarb. EEG at [facility] w/o evidence of seizures. Patient extubated on 04/03, transferred to floor. Exam w/ some concern for left arm weakness, MRI pending. Objective Temp: [98 F (36.7 C)-98.4 F (36.9 C)] 98 F (36.7 C) Pulse (Heart Rate): [67-92] 72 Resp Rate: [11-24] 18 BP: (119-155)/(60-98) 140/63 O2 Sat (%): [92 %-100 %] 95 % Physical Exam Gen: Alert, NAD ENT: MMM Resp: normal effort Cardio: No KENDALL GI: S/NT/ND Neuro: moving all extremities spontaneously Psych: appropriate affect and cognition Data Review Bun/Creat/Cl/CO2/Glucose: --/--/--/--/103 (04/03 1126) [facility] Work Phone: 04-03-2023 Plan of care note Problem: PT - Mobility Goal: Ambulation - Patient will ambulate 150 feet with supervision and wheeled walker to improve ability to safely navigate home and community. Outcome: Ongoing Problem: PT - Transfers Goal: Supine <-> Sit Transfers - Patient will perform supine to/from sit transfers with modified independence and with use of hospital bed features in order to improve functional mobility and safety. Outcome: Ongoing Goal: Stand/Squat Pivot Transfers - Patient will perform stand pivot transfer to/from bed/chair/commode with supervision and wheeled walker in order to improve functional mobility and safety. Outcome: Ongoing [facility] 04-03-2023 Plan of care note Problem: OT - ADLs Goal: Grooming - Patient will complete grooming in standing with contact guard assistance x5 min for improved ability to safely complete ADLs. Outcome: Ongoing Goal: Toileting - Patient will complete toileting task with minimal assistance and adaptive equipment as needed for improved ability to safely complete self-care activities. Outcome: Ongoing Problem: OT - Transfers Goal: Transfers Sit/Stand - Patient will demonstrate good safety awareness during sit to/from stand functional transfer with contact guard assistance and wheeled walker to demonstrate safe functional transfers. Outcome: Ongoing Problem: OT - Endurance Goal: Endurance Functional Mobility - Patient will complete distance needed to access restroom with no greater than 1 rest breaks and ww and CGA for improved tolerance to safely complete I/ADL's Outcome: Ongoing Problem: OT - Cognition Goal: Cognition Simple ADL - Patient will demonstrate improved cognition, completing simple ADL task for 15 minutes with no greater than min cues required to maintain attention. Outcome: Ongoing Problem: OT - Strength/ROM Goal: Neuro Re-education - Patient will participate in neuro re-ed of left upper extremity with supervision and 100% accuracy for improved functional use in ADLs. Outcome: Ongoing [facility] 04-02-2023 Plan of care note Problem: Patient Care Overview Goal: Plan of Care Review Outcome: Progressing Toward Goal Goal: Individualization & Mutuality Outcome: Progressing Toward Goal Goal: Discharge Needs Assessment Outcome: Progressing Toward Goal Goal: Interdisciplinary Rounds/Family Conf Outcome: Progressing Toward Goal Problem: Ventilation, Mechanical Invasive (Adult) Goal: Signs and Symptoms of Listed Potential Problems Will be Absent, Minimized or Managed (Ventilation, Mechanical Invasive) Description: Signs and symptoms of listed potential problems will be absent, minimized or managed by discharge/transition of care (reference Ventilation, Mechanical Invasive (Adult) CPG). Outcome: Completed Problem: Nutrition, Enteral (Adult) Goal: Signs and Symptoms of Listed Potential Problems Will be Absent, Minimized or Managed (Nutrition, Enteral) Description: Signs and symptoms of listed potential problems will be absent, minimized or managed by discharge/transition of care (reference Nutrition, Enteral (Adult) CPG). Outcome: Progressing Toward Goal Problem: Mobility, Physical Impaired (Adult) Goal: Identify Related Risk Factors and Signs and Symptoms Description: Related risk factors and signs and symptoms are identified upon initiation of Human Response Clinical Practice Guideline (CPG) Outcome: Progressing Toward Goal Goal: Enhanced Mobility Skills Description: Patient will demonstrate the desired outcomes by discharge/transition of care. Outcome: Progressing Toward Goal Goal: Enhanced Functionality Ability Description: Patient will demonstrate the desired outcomes by discharge/transition of care. Outcome: Progressing Toward Goal [facility] 04-02-2023 Procedure note Associated Ord er(s): GENERAL PROCEDURE Continuous video-EEG recording - FINAL SUMMARY START OF RECORDIN03/30/2023@16:02 Start of Review: 03/31/2023@ 09:00 End of Review: 04/01/2023@ 18:09 HISTORY: 37yoF admitted on 03/30/2023 with status epilepticus. cEEG obtained to monitor for ongoing seizures and treatment response. MEDICATIONS AT START: [START ON 03/31/2023] chlorhexidine 15 mL Mouth/Throat Q12H esomeprazole 40 mg Per NG tube Daily Gabapentin 400 mg Per NG tube Q8H Insulin regular Subcutaneous Q6H levETIRAcetam 1,500 mg Intravenous Q12HNS [START ON 03/31/2023] PHENobarbital 32.4 mg Per NG tube Daily PHENobarbital 48.6 mg Per NG tube Q24H Senna 8.6 mg Oral Daily Or Senna 8.6 mg Per NG tube Daily [START ON 03/31/2023] Sertraline 125 mg Per NG tube Daily Sodium chloride 0.9% w/potassium cl TECHNICAL DESCRIPTION: This is a 21-channel digital EEG recording with time-locked video and single-channel electrocardiogram. Electrodes are placed according to the 10 to 20 International System. The patient was monitored continuously by EEG technicians with EEG reviewed intermittently and annotations made to the EEG record every two hours. Portions of this record are reviewed using bandpass filters of 1 to 70 Hz and sensitivity of 7mV/mm. DESCRIPTION: Clinical State: intubated INTERICTAL: Background: continuous, asymmetric, no PDR, absent AP gradient Superimposed Frequencies: excess beta, alpha , delta/theta Voltage: >20V Reactivity: -03/30/2023@1643(CYSTE): no EEG/clinical reactivity State Change: present without N2 ; quiet state with diffuse decrease in amplitude and fast activity Focal Asymmetry: continuous R hemispheric polymorphic delta slowing Rhythmic or Periodic Patterns: occasional 0.5-1.0Hz SI-LRDA over R hemisphere (not qualifying for ESz nor IIC) Sporadic ED's: Now rare R temporal sharp/spike-waves maximal at T8/F8>P8 with broad field, more frequently noted on LEFT (F7, T7). Brief Rhythmic Discharges: none EKG: NSR ICTAL / EVENTS: Seizure: none Other Clinical Events: none Activation Procedures Hyperventilation: N/A Photic stimulation: N/A Summary of EEG and Behavior: Diffuse slowing/disorganization RIGHT hemispheric slowing compared to the LEFT. Excess beta. Frequent R temporal IEDs evolving to rare RIGHT and frequent LEFT discharges. Occasional 0.5-1.0Hz SI-LRDA (not qualifying for ESz nor IIC). No EKG abnormality Clinical Correlation: This 2 day cEEG was abnormal. The findings were consistent with: 1) Nonspecific moderate diffuse encephalopathy, in part due to medication effect. 2) RIGHT hemispheric structural or physiologic abnormality 3) RIGHT & LEFT temporal cortical irritation and risk for focal onset seizures Kaushal Cruz MD, MSBME [employer] Department of Neurology - Epilepsy Division [facility] Work Phone: 04-02-2023 Procedure note Associated Ord er(s): GENERAL PROCEDURE Continuous video-EEG recording - FINAL SUMMARY START OF RECORDIN03/30/2023@16:02 Start of Review: 03/31/2023@ 09:00 End of Review: 04/01/2023@ 18:09 HISTORY: 37yoF admitted on 03/30/2023 with status epilepticus. cEEG obtained to monitor for ongoing seizures and treatment response. MEDICATIONS AT START: [START ON 03/31/2023] chlorhexidine 15 mL Mouth/Throat Q12H esomeprazole 40 mg Per NG tube Daily Gabapentin 400 mg Per NG tube Q8H Insulin regular Subcutaneous Q6H levETIRAcetam 1,500 mg Intravenous Q12HNS [START ON 03/31/2023] PHENobarbital 32.4 mg Per NG tube Daily PHENobarbital 48.6 mg Per NG tube Q24H Senna 8.6 mg Oral Daily Or Senna 8.6 mg Per NG tube Daily [START ON 03/31/2023] Sertraline 125 mg Per NG tube Daily Sodium chloride 0.9% w/potassium cl TECHNICAL DESCRIPTION: This is a 21-channel digital EEG recording with time-locked video and single-channel electrocardiogram. Electrodes are placed according to the 10 to 20 International System. The patient was monitored continuously by EEG technicians with EEG reviewed intermittently and annotations made to the EEG record every two hours. Portions of this record are reviewed using bandpass filters of 1 to 70 Hz and sensitivity of 7mV/mm. DESCRIPTION: Clinical State: intubated INTERICTAL: Background: continuous, asymmetric, no PDR, absent AP gradient Superimposed Frequencies: excess beta, alpha , delta/theta Voltage: >20V Reactivity: -03/30/2023@1643(CYSTE): no EEG/clinical reactivity State Change: present without N2 ; quiet state with diffuse decrease in amplitude and fast activity Focal Asymmetry: continuous R hemispheric polymorphic delta slowing Rhythmic or Periodic Patterns: occasional 0.5-1.0Hz SI-LRDA over R hemisphere (not qualifying for ESz nor IIC) Sporadic ED's: Now rare R temporal sharp/spike-waves maximal at T8/F8>P8 with broad field, more frequently noted on LEFT (F7, T7). Brief Rhythmic Discharges: none EKG: NSR ICTAL / EVENTS: Seizure: none Other Clinical Events: none Activation Procedures Hyperventilation: N/A Photic stimulation: N/A Summary of EEG and Behavior: Diffuse slowing/disorganization RIGHT hemispheric slowing compared to the LEFT. Excess beta. Frequent R temporal IEDs evolving to rare RIGHT and frequent LEFT discharges. Occasional 0.5-1.0Hz SI-LRDA (not qualifying for ESz nor IIC). No EKG abnormality Clinical Correlation: This 2 day cEEG was abnormal. The findings were consistent with: 1) Nonspecific moderate diffuse encephalopathy, in part due to medication effect. 2) RIGHT hemispheric structural or physiologic abnormality 3) RIGHT & LEFT temporal cortical irritation and risk for focal onset seizures Kaushal Cruz MD, MSBME [employer] Department of Neurology - Epilepsy Division [facility] Associated Order(s): EEG [facility]CI MONITORING STUDY NAME: Continuous video-EEG recording START OF RECORDIN03/30/2023@16:02 Start of Review: 03/31/2023@12:00 End of Review: 04/01/2023@ 09:00 HISTORY: 37yoF admitted on 03/30/2023 with status epilepticus. cEEG obtained to monitor for ongoing seizures and treatment response. MEDICATIONS AT START: [START ON 03/31/2023] chlorhexidine 15 mL Mouth/Throat Q12H esomeprazole 40 mg Per NG tube Daily Gabapentin 400 mg Per NG tube Q8H Insulin regular Subcutaneous Q6H levETIRAcetam 1,500 mg Intravenous Q12HNS [START ON 03/31/2023] PHENobarbital 32.4 mg Per NG tube Daily PHENobarbital 48.6 mg Per NG tube Q24H Senna 8.6 mg Oral Daily Or Senna 8.6 mg Per NG tube Daily [START ON 03/31/2023] Sertraline 125 mg Per NG tube Daily Sodium chloride 0.9% w/potassium cl TECHNICAL DESCRIPTION: This is a 21-channel digital EEG recording with time-locked video and single-channel electrocardiogram. Electrodes are placed according to the 10 to 20 International System. The patient was monitored continuously by EEG technicians with EEG reviewed intermittently and annotations made to the EEG record every two hours. Portions of this record are reviewed using bandpass filters of 1 to 70 Hz and sensitivity of 7mV/mm. DESCRIPTION: Clinical State: intubated INTERICTAL: Background: continuous, asymmetric, no PDR, absent AP gradient Superimposed Frequencies: excess beta, alpha , delta/theta Voltage: >20V Reactivity: -03/30/2023@1643(CYSTE): no EEG/clinical reactivity State Change: present without N2 ; quiet state with diffuse decrease in amplitude and fast activity Focal Asymmetry: continuous R hemispheric polymorphic delta slowing Rhythmic or Periodic Patterns: occasional 0.5-1.0Hz SI-LRDA over R hemisphere (not qualifying for ESz nor IIC) Sporadic ED's: frequent R temporal sharp/spike-waves maximal at T8/F8>P8 with broad field Brief Rhythmic Discharges: none EKG: NSR ICTAL / EVENTS: Seizure: none Other Clinical Events: none Activation Procedures Hyperventilation: N/A Photic stimulation: N/A Summary of EEG and Behavior: Diffuse slowing/disorganization R hemispheric slowing Excess beta Frequent R temporal IEDs Occasional 0.5-1.0Hz SI-LRDA (not qualifying for ESz nor IIC) No EKG abnormality Clinical Correlation: This 2 day cEEG was abnormal. The findings were consistent with: 1) Nonspecific moderate diffuse encephalopathy, in part due to medication effect 2) R hemispheric structural or physiologic abnormality 3) R temporal cortical irritation and risk for focal onset seizures Kaushal Cruz MD, MSBME [employer] Department of Neurology - Epilepsy Division [facility] Associated Order(s): EEG TELEGRAPH PLANT MAINTAINER MONITORING Procedure(s): EEG [facility]CI MONITORING STUDY NAME: Continuous video-EEG recording REFERRING PHYSICIAN: BENTLEY Paniagua DATE AND TIME START OF RECORDIN03/30/2023@1602 DATE AND TIME END OF RECORDIN03/31/2023@1200 (ongoing study) HISTORY: 37yoF admitted on 03/30/2023 with status epilepticus. cEEG obtained to monitor for ongoing seizures and treatment response. MEDICATIONS AT START: [START ON 03/31/2023] chlorhexidine 15 mL Mouth/Throat Q12H esomeprazole 40 mg Per NG tube Daily Gabapentin 400 mg Per NG tube Q8H Insulin regular Subcutaneous Q6H levETIRAcetam 1,500 mg Intravenous Q12HNS [START ON 03/31/2023] PHENobarbital 32.4 mg Per NG tube Daily PHENobarbital 48.6 mg Per NG tube Q24H Senna 8.6 mg Oral Daily Or Senna 8.6 mg Per NG tube Daily [START ON 03/31/2023] Sertraline 125 mg Per NG tube Daily Sodium chloride 0.9% w/potassium cl TECHNICAL DESCRIPTION: This is a 21-channel digital EEG recording with time-locked video and single-channel electrocardiogram. Electrodes are placed according to the 10 to 20 International System. The patient was monitored continuously by EEG technicians with EEG reviewed intermittently and annotations made to the EEG record every two hours. Portions of this record are reviewed using bandpass filters of 1 to 70 Hz and sensitivity of 7mV/mm. DESCRIPTION: Clinical State: intubated INTERICTAL: Background: continuous, asymmetric, no PDR, absent AP gradient Superimposed Frequencies: excess beta, alpha , delta/theta Voltage: >20V Reactivity: -03/30/2023@1643(CYSTE): no EEG/clinical reactivity State Change: present without N2 ; quiet state with diffuse decrease in amplitude and fast activity Focal Asymmetry: continuous R hemispheric polymorphic delta slowing Rhythmic or Periodic Patterns: occasional 0.5-1.0Hz SI-LRDA over R hemisphere (not qualifying for ESz nor IIC) Sporadic ED's: frequent R temporal sharp/spike-waves maximal at T8/F8>P8 with broad field Brief Rhythmic Discharges: none EKG: NSR ICTAL / EVENTS: Seizure: none Other Clinical Events: none Activation Procedures Hyperventilation: N/A Photic stimulation: N/A Summary of EEG and Behavior: Diffuse slowing/disorganization R hemispheric slowing Excess beta Frequent R temporal IEDs Occasional 0.5-1.0Hz SI-LRDA (not qualifying for ESz nor IIC) No EKG abnormality Clinical Correlation: This 2 day cEEG was abnormal. The findings were consistent with: 1) Nonspecific moderate diffuse encephalopathy, in part due to medication effect 2) R hemispheric structural or physiologic abnormality 3) R temporal cortical irritation and risk for focal onset seizures This is an ongoing study. The report will be continued in a separate dictation. Torrey Heller MD EEG Attending Golf Instructor Department of Neurology, Epilepsy Division [facility] documented in this encounter [facility] 04-01-2023 Plan of care note Problem: Patient Care Overview Goal: Plan of Care Review Outcome: Progressing Toward Goal Goal: Individualization & Mutuality Outcome: Progressing Toward Goal Goal: Discharge Needs Assessment Outcome: Progressing Toward Goal Goal: Interdisciplinary Rounds/Family Conf Outcome: Progressing Toward Goal Problem: Ventilation, Mechanical Invasive (Adult) Goal: Signs and Symptoms of Listed Potential Problems Will be Absent, Minimized or Managed (Ventilation, Mechanical Invasive) Description: Signs and symptoms of listed potential problems will be absent, minimized or managed by discharge/transition of care (reference Ventilation, Mechanical Invasive (Adult) CPG). Outcome: Progressing Toward Goal Problem: Nutrition, Enteral (Adult) Goal: Signs and Symptoms of Listed Potential Problems Will be Absent, Minimized or Managed (Nutrition, Enteral) Description: Signs and symptoms of listed potential problems will be absent, minimized or managed by discharge/transition of care (reference Nutrition, Enteral (Adult) CPG). Outcome: Progressing Toward Goal [facility] 04-01-2023 Procedure note Associated Ord er(s): EEG [facility] MONITORING STUDY NAME: Continuous video-EEG recording START OF RECORDIN03/30/2023@16:02 Start of Review: 03/31/2023@12:00 End of Review: 04/01/2023@ 09:00 HISTORY: 37yoF admitted on 03/30/2023 with status epilepticus. cEEG obtained to monitor for ongoing seizures and treatment response. MEDICATIONS AT START: [START ON 03/31/2023] chlorhexidine 15 mL Mouth/Throat Q12H esomeprazole 40 mg Per NG tube Daily Gabapentin 400 mg Per NG tube Q8H Insulin regular Subcutaneous Q6H levETIRAcetam 1,500 mg Intravenous Q12HNS [START ON 03/31/2023] PHENobarbital 32.4 mg Per NG tube Daily PHENobarbital 48.6 mg Per NG tube Q24H Senna 8.6 mg Oral Daily Or Senna 8.6 mg Per NG tube Daily [START ON 03/31/2023] Sertraline 125 mg Per NG tube Daily Sodium chloride 0.9% w/potassium cl TECHNICAL DESCRIPTION: This is a 21-channel digital EEG recording with time-locked video and single-channel electrocardiogram. Electrodes are placed according to the 10 to 20 International System. The patient was monitored continuously by EEG technicians with EEG reviewed intermittently and annotations made to the EEG record every two hours. Portions of this record are reviewed using bandpass filters of 1 to 70 Hz and sensitivity of 7mV/mm. DESCRIPTION: Clinical State: intubated INTERICTAL: Background: continuous, asymmetric, no PDR, absent AP gradient Superimposed Frequencies: excess beta, alpha , delta/theta Voltage: >20V Reactivity: -03/30/2023@1643(CYSTE): no EEG/clinical reactivity State Change: present without N2 ; quiet state with diffuse decrease in amplitude and fast activity Focal Asymmetry: continuous R hemispheric polymorphic delta slowing Rhythmic or Periodic Patterns: occasional 0.5-1.0Hz SI-LRDA over R hemisphere (not qualifying for ESz nor IIC) Sporadic ED's: frequent R temporal sharp/spike-waves maximal at T8/F8>P8 with broad field Brief Rhythmic Discharges: none EKG: NSR ICTAL / EVENTS: Seizure: none Other Clinical Events: none Activation Procedures Hyperventilation: N/A Photic stimulation: N/A Summary of EEG and Behavior: Diffuse slowing/disorganization R hemispheric slowing Excess beta Frequent R temporal IEDs Occasional 0.5-1.0Hz SI-LRDA (not qualifying for ESz nor IIC) No EKG abnormality Clinical Correlation: This 2 day cEEG was abnormal. The findings were consistent with: 1) Nonspecific moderate diffuse encephalopathy, in part due to medication effect 2) R hemispheric structural or physiologic abnormality 3) R temporal cortical irritation and risk for focal onset seizures AChapincito Cruz MD, MSE [facility] Department of Neurology - Epilepsy Division [facility] 04-01-2023 History and physical note NEUROCRITICAL CARE PROGRESS NOTE HOSPITAL VISIT DEMOGRAPHICS Patient: Mary Claudio Code status: Full Code Admission date: 03/30/2023 12:01 PM Hospital days: LOS: 2 days CHIEF COMPLAINT Status Epilepticus HISTORY OF PRESENT ILLNESS Mary Claudio is a 37 y.o. female with a past pertinent medical history of seizure disorder who initially presented to an OSH ED from her ECF in status. There is no clear chronicity regarding how long she had been in status, but it is thought to be ~ 1 hour. At the OSH, she received a total of 20 mg of Versed and loaded with keppra and phenobarbital. Given concern for inability to protect the airway, she was intubated and started on propofol and a fosphenytoin load of 2g IV. Additionally, she was noted to have a respiratory acidosis and elevated troponin of 309.3 -- likely related to demand ischemia. On review of chart, she has had several ER visits secondary to status epilepticus relating to medication non-adherence. She previously took Keppra, topiramate, and phenobarbital. Her seizure presentation is typically GTC. 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 INTERVAL HISTORY SINCE ADMISSION 03/30/2023: NCCU Admission 03/31/2023: started on lovenox; no seizures on cEEG; started on TF; neurochecks expanded to q8, precedex overnight 04/01: increase BM REVIEW OF SYSTEMS Review of systems not obtained due to obtundation. HISTORY No past medical history on file. No past surgical history on file. Social History Socioeconomic History Marital status: Not on file Spouse name: Not on file Number of children: Not on file Years of education: Not on file Highest education level: Not on file Occupational History Not on file Tobacco Use Smoking status: Not on file Smokeless tobacco: Not on file Substance and Sexual Activity Alcohol use: Not on file Drug use: Not on file Sexual activity: Not on file Other Topics Concern Not on file Social History Narrative Not on file Social Determinants of Health Financial Resource Strain: Not on file Food Insecurity: Not on file Transportation Needs: Not on file Physical Activity: Not on file Stress: Not on file Social Connections: Not on file Intimate Partner Violence: Not on file Housing Stability: Not on file ALLERGIES AND HOME MEDICATIONS Allergies: has no allergies on file. Home Medications: Medications Prior to Admission Medication Sig Dispense Refill Last Dose amLODIPine 10 MG tablet Take 1 tablet by mouth daily. faMOTIdine 20 MG tablet Take 1 tablet by mouth daily. Folic acid 1 MG tablet Take 1 tablet by mouth daily. furOSEmide 40 MG tablet Take 1 tablet by mouth daily. Gabapentin 400 MG capsule Take 1 capsule by mouth 3 times daily. Levetiracetam 1000 MG tablet Take 1 tablet by mouth 2 times daily. PHENobarbital 15 MG tablet Take 1 tablet by mouth every evening. phenobarbital 30 MG tablet Take 1 tablet by mouth 2 times daily. Potassium chloride 20 MEQ Tab CR tablet Take 1 tablet by mouth 2 times daily. Sertraline 100 MG tablet Take 1 tablet by mouth daily. Take with 25mg tablet for total dose of 125mg Sertraline 25 MG tablet Take 1 tablet by mouth daily. Take with 100mg tablet for total dose of 125mg spironolactone 50 MG tablet Take 1 tablet by mouth daily. Prior to Arrival Meds: Medications Prior to Admission Medication Sig Dispense Refill Last Dose amLODIPine 10 MG tablet Take 1 tablet by mouth daily. faMOTIdine 20 MG tablet Take 1 tablet by mouth daily. Folic acid 1 MG tablet Take 1 tablet by mouth daily. furOSEmide 40 MG tablet Take 1 tablet by mouth daily. Gabapentin 400 MG capsule Take 1 capsule by mouth 3 times daily. Levetiracetam 1000 MG tablet Take 1 tablet by mouth 2 times daily. PHENobarbital 15 MG tablet Take 1 tablet by mouth every evening. phenobarbital 30 MG tablet Take 1 tablet by mouth 2 times daily. Potassium chloride 20 MEQ Tab CR tablet Take 1 tablet by mouth 2 times daily. Sertraline 100 MG tablet Take 1 tablet by mouth daily. Take with 25mg tablet for total dose of 125mg Sertraline 25 MG tablet Take 1 tablet by mouth daily. Take with 100mg tablet for total dose of 125mg spironolactone 50 MG tablet Take 1 tablet by mouth daily. Hospital Medications: Infusions: dexmedeTOMIDine 0.1 mcg/kg/hr (04/01/23799) Vital AF 1.2 Jean Carlos 55 mL/hr (04/01/23799) Scheduled: chlorhexidine 15 mL Mouth/Throat Q12H enoxaparin 40 mg Subcutaneous Daily esomeprazole 40 mg Per NG tube Daily Gabapentin 400 mg Per NG tube Q8H Insulin regular Subcutaneous Q6H levETIRAcetam 1,500 mg Intravenous Q12HNS PHENobarbital 32.4 mg Per NG tube Daily PHENobarbital 48.6 mg Per NG tube Q24H Polyethylene glycol 17 g Per NG tube Daily Senna 17.2 mg Per NG tube Daily Sertraline 125 mg Per NG tube Daily PRN: bisacodyl, Calcium Gluconate OR calcium gluconate, Insulin regular AND BLOOD GLUCOSE (POC DEVICE) AND BLOOD GLUCOSE (POC DEVICE) UDPRN AND COMMUNICATION ORDER FOR NURSING CARE: For Blood Glucose LESS THAN 80 mg/dl AND Dextrose AND glucose AND NOTIFY PHYSICIAN, Blood Glucose LESS THAN 80 mg/dl, hydrALAZINE OR hydrALAZINE, Labetalol OR Labetalol, magnesium sulfate, potassium chloride OR Potassium chloride OR Potassium Bicarb-Citric Acid OR potassium chloride, Sodium chloride 0.9%, sodium phosphate OR sodium phosphate PHYSICAL EXAM GENERAL: Intubated HEENT: normocephalic, cEEG in-place CARDIO: +S1S2, RRR, no m/r/g, no edema PULM: clear to auscultation bilaterally; mechanically ventilated ABDOMINAL: soft, nontender, nondistended, active bowel sounds EXTREMITIES: no wounds or lesions VASCULAR: 2+ distal pulses, capillary refill <3 seconds NEURO: Intubated C/c/g +, PERRLA; normal vestibulo- ocular reflex Localizing in the RUE/BLE No response to NS in the LUE ASSESSMENT AND PLAN Neuro: Seizures Cuge-Khgfgqmq-Ylerda Syndrome - Seizure Management - Monitor neurostatus with neurochecks Q8H - Initial seizure presentation: GTC - Loaded with 20 mg of Versed, 2g IV Fosphenytoin, 32.4 mg phenobarbital, - Propofol/versed/ketamine gtt; provider to titrate - Home AED regimen: Keppra 1000 mg, bid; Phenobarbital 15 mg - Maintenance AED regimen and recent drug levels: - Keppra 1500 mg Q12H - Phenobarbital 32.4 Q12H - trough level subtherapeutic at 11 (2/3) Recent Labs 04/01/23 0809 PHENOBARBITA 11.0* - Monitor CK on admission and Q6H (see renal) - 03/30/2023 cEEG, DC 2/3 - Last electrographic seizure: None - read: Nonspecific moderate diffuse encephalopathy, in part due to medication effect. R hemispheric structural or physiologic abnormality. 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 - MRI brain w/o contrast ordered - Metabolic: - Check ammonia, amylase, lipase, LFTs No results for input(s): AMMONIA, AMYLASE, LIPASE, TSH, T4FREE, B12, FOLATE in the last 72 hours. Invalid input(s): LFT - Pain/Sedation management - Gabapentin 400q8 - precedex gtt Psych: Anxiety Depression - Sertraline 125 mg; home dose Pulm: Acute Hypoxic Respiratory Failure ANIRUDH Ventilator/Non-Ventilator Mode: A/C PRVC Set Respiratory Rate/Release Rate: 16 PEEP (cm H2O): 6 Pressure Support (cmH2O): 10 O2 Sat (%): 100 % (04/01 1000) O2 Device: ventilator (mechanical ventilation) (04/01 0800) Oxygen Concentration (%): 30 (04/01 1000) - Goal SpO2 >92%; wean FiO2 as tolerated - - [id number], encourage pulmonary toileting - Trialed on CPAP; multiple apnea episodes, placed back onto rate - likely related to medication side effects Imaging: - 03/30 CXR: normal CP result, no acute pathology Cards: Cardiomyopathy Acute NSTEMI HTN Temp: [97.5 F (36.4 C)-99.3 F (37.4 C)] 97.5 F (36.4 C) Pulse (Heart Rate): [73-100] 79 Resp Rate: [10-21] 18 BP: (118-183)/(62-86) 139/78 O2 Sat (%): [96 %-100 %] 100 % - Goal SBP <160, MAP >65 - Home antihypertensives: amlodipine 10 mg, furosemide 40 mg; spironolactone 50 mg - PRN labetalol and hydralazine - 03/23/2020 TTE: Normal ejection fraction with no wall motion abnormalities - 03/29 troponin: 303 (OSH); 150 --> 147 (No additional orders) - 03/30 ECG: NSR, no abnormalities - Statin Therapy: not indicated Renal/: No Current Issues - Fluid Balance: - Goal: euvolemia Intake/Output Summary (Last 24 hours) at 04/01/2023 1038 Last data filed at 04/01/2023 0800 Gross per 24 hour Intake 1174.03 ml Output 1600 ml Net -425.97 ml - Continue PureWick - Maintenance: n/a - Daily Chem 10; electrolytes replaced per NCCU protocol Recent Labs 03/30/23 1230 03/30/23 1424 03/31/23 0123 03/31/23 0517 04/01/23 0003 SODIUM 134* -- -- 139 139 POTASSIUM 5.2* < > -- 3.6 3.5 CHLORIDE 102 -- -- 105 103 CO2 25 -- -- 25 26 BUN 8 -- -- 8 8 CREATSERUM 0.82 -- -- 0.67 0.61 MAGNESIUM 2.0 -- -- 1.8 1.9 PHOSPHORUS 3.6 -- -- 3.1 3.4 ICA -- -- 3.55* -- 4.33* CPK 503* -- -- -- -- < > = values in this interval not displayed. GI/Nutrition: GERD Recent Labs 03/30/23 1230 ALBUMIN 3.6 BILIDIRECT 0.1 BILITOTAL 0.8 ALKPHOS 71 ALT 12 AST 40* TP 6.3* - DIET NPO AND TUBE FEEDING with meds AAT - - Body mass index is 34.76 kg/m . 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) - Senna doubled, miralax scheduled Stress Ulcer Prophylaxis: Esomeprazole Endo: No Current Issues - Goal blood glucose 140-180 Recent Labs 03/31/23 1106 03/31/23 1750 04/01/23 0003 GLUCOSE 96 103* 97 99 - Insulin SSI: assess for need ID: No Current Issues Recent Labs 03/30/23 1337 03/31/23 0517 04/01/23 0003 WBC -- 7.50 9.01 LACT 0.8 -- -- - Temp (24hrs), Av.7 F (37.1 C), Min:97.5 F (36.4 C), Max:99.3 F (37.4 C) - PRN Tylenol for T>100.4F - Most recent and positive cultures: Date Collected Source Result Date Finalized 2/1 Staph swab MSSA 03/30 BCx NGTD 03/30 BAL negative - Antiinfectives: Start Date Antiinfective Coverage Course Length Stop Date Heme/Onc: Anemia 03/31 iron deficiency Recent Labs 03/30/23 1230 03/30/23 1311 03/31/23 0517 04/01/23 0003 WBC -- < > 7.50 9.01 RBC -- < > 4.34 4.48 HGB -- < > 12.6 12.8 HCT -- < > 39.4 41.3 PLATELET -- < > 161 161 150 PT 13.1 -- -- -- PTT 22.9* -- -- -- INR 1.0 -- -- -- < > = values in this interval not displayed. - Goal plt >100, INR <1.4, Hgb >7 - Lovenox for DVT Ppx started 03/31 Musc: No Current Issues - PT/OT consulted and following - Current Activity Order: AAAT Social/Dispo: - Code status: Full Code - 03/30: Medications reconciled - Discharge planning per PCRM/SW. Complexity. Hypocalcemia - Continue to monitor and replete. Obesity Body mass index is 34.76 kg/m . - Follow with PCP for dietary and lifestyle modifications. Any conditions listed below are present on admission unless otherwise specified. . ICU Checklist: [ ] CAM-ICU [ ] ICU Diary daily [ ] SAT [ ] SBT [x] DVT ppx; [ ] SCDs; [x] Lovenox, [ ] heparin [x] Stress ulcer prophylaxis: Nexium - Lines/Tubes: Lucila: inserted 03/29, (indication:BP monitoring) Discussed with NCCU Attending, Dr. Ainsley Solis MD Service pager: [phone] Service [place] #: [id number] (Beds [phone] and beds), [place] #: [id number] (Beds [phone] and [facility]) 04/01/23 10:38 AM [facility] 04-01-2023 History and physical note NEUROCRITICAL CARE PROGRESS NOTE HOSPITAL VISIT DEMOGRAPHICS Patient: Mary Claudio Code status: Full Code Admission date: 03/30/2023 12:01 PM Hospital days: LOS: 2 days CHIEF COMPLAINT Status Epilepticus HISTORY OF PRESENT ILLNESS Mary Claudio is a 37 y.o. female with a past pertinent medical history of seizure disorder who initially presented to an OSH ED from her ECF in status. There is no clear chronicity regarding how long she had been in status, but it is thought to be ~ 1 hour. At the OSH, she received a total of 20 mg of Versed and loaded with keppra and phenobarbital. Given concern for inability to protect the airway, she was intubated and started on propofol and a fosphenytoin load of 2g IV. Additionally, she was noted to have a respiratory acidosis and elevated troponin of 309.3 -- likely related to demand ischemia. On review of chart, she has had several ER visits secondary to status epilepticus relating to medication non-adherence. She previously took Keppra, topiramate, and phenobarbital. Her seizure presentation is typically GTC. 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 INTERVAL HISTORY SINCE ADMISSION 03/30/2023: NCCU Admission 03/31/2023: started on lovenox; no seizures on cEEG; started on TF; neurochecks expanded to q8, precedex overnight 04/01: increase BM REVIEW OF SYSTEMS Review of systems not obtained due to obtundation. HISTORY No past medical history on file. No past surgical history on file. Social History Socioeconomic History Marital status: Not on file Spouse name: Not on file Number of children: Not on file Years of education: Not on file Highest education level: Not on file Occupational History Not on file Tobacco Use Smoking status: Not on file Smokeless tobacco: Not on file Substance and Sexual Activity Alcohol use: Not on file Drug use: Not on file Sexual activity: Not on file Other Topics Concern Not on file Social History Narrative Not on file Social Determinants of Health Financial Resource Strain: Not on file Food Insecurity: Not on file Transportation Needs: Not on file Physical Activity: Not on file Stress: Not on file Social Connections: Not on file Intimate Partner Violence: Not on file Housing Stability: Not on file ALLERGIES AND HOME MEDICATIONS Allergies: has no allergies on file. Home Medications: Medications Prior to Admission Medication Sig Dispense Refill Last Dose amLODIPine 10 MG tablet Take 1 tablet by mouth daily. faMOTIdine 20 MG tablet Take 1 tablet by mouth daily. Folic acid 1 MG tablet Take 1 tablet by mouth daily. furOSEmide 40 MG tablet Take 1 tablet by mouth daily. Gabapentin 400 MG capsule Take 1 capsule by mouth 3 times daily. Levetiracetam 1000 MG tablet Take 1 tablet by mouth 2 times daily. PHENobarbital 15 MG tablet Take 1 tablet by mouth every evening. phenobarbital 30 MG tablet Take 1 tablet by mouth 2 times daily. Potassium chloride 20 MEQ Tab CR tablet Take 1 tablet by mouth 2 times daily. Sertraline 100 MG tablet Take 1 tablet by mouth daily. Take with 25mg tablet for total dose of 125mg Sertraline 25 MG tablet Take 1 tablet by mouth daily. Take with 100mg tablet for total dose of 125mg spironolactone 50 MG tablet Take 1 tablet by mouth daily. Prior to Arrival Meds: Medications Prior to Admission Medication Sig Dispense Refill Last Dose amLODIPine 10 MG tablet Take 1 tablet by mouth daily. faMOTIdine 20 MG tablet Take 1 tablet by mouth daily. Folic acid 1 MG tablet Take 1 tablet by mouth daily. furOSEmide 40 MG tablet Take 1 tablet by mouth daily. Gabapentin 400 MG capsule Take 1 capsule by mouth 3 times daily. Levetiracetam 1000 MG tablet Take 1 tablet by mouth 2 times daily. PHENobarbital 15 MG tablet Take 1 tablet by mouth every evening. phenobarbital 30 MG tablet Take 1 tablet by mouth 2 times daily. Potassium chloride 20 MEQ Tab CR tablet Take 1 tablet by mouth 2 times daily. Sertraline 100 MG tablet Take 1 tablet by mouth daily. Take with 25mg tablet for total dose of 125mg Sertraline 25 MG tablet Take 1 tablet by mouth daily. Take with 100mg tablet for total dose of 125mg spironolactone 50 MG tablet Take 1 tablet by mouth daily. Hospital Medications: Infusions: dexmedeTOMIDine 0.1 mcg/kg/hr (04/01/23799) Vital AF 1.2 Jean Carlos 55 mL/hr (04/01/23799) Scheduled: chlorhexidine 15 mL Mouth/Throat Q12H enoxaparin 40 mg Subcutaneous Daily esomeprazole 40 mg Per NG tube Daily Gabapentin 400 mg Per NG tube Q8H Insulin regular Subcutaneous Q6H levETIRAcetam 1,500 mg Intravenous Q12HNS PHENobarbital 32.4 mg Per NG tube Daily PHENobarbital 48.6 mg Per NG tube Q24H Polyethylene glycol 17 g Per NG tube Daily Senna 17.2 mg Per NG tube Daily Sertraline 125 mg Per NG tube Daily PRN: bisacodyl, Calcium Gluconate OR calcium gluconate, Insulin regular AND BLOOD GLUCOSE (POC DEVICE) AND BLOOD GLUCOSE (POC DEVICE) UDPRN AND COMMUNICATION ORDER FOR NURSING CARE: For Blood Glucose LESS THAN 80 mg/dl AND Dextrose AND glucose AND NOTIFY PHYSICIAN, Blood Glucose LESS THAN 80 mg/dl, hydrALAZINE OR hydrALAZINE, Labetalol OR Labetalol, magnesium sulfate, potassium chloride OR Potassium chloride OR Potassium Bicarb-Citric Acid OR potassium chloride, Sodium chloride 0.9%, sodium phosphate OR sodium phosphate PHYSICAL EXAM GENERAL: Intubated HEENT: normocephalic, cEEG in-place CARDIO: +S1S2, RRR, no m/r/g, no edema PULM: clear to auscultation bilaterally; mechanically ventilated ABDOMINAL: soft, nontender, nondistended, active bowel sounds EXTREMITIES: no wounds or lesions VASCULAR: 2+ distal pulses, capillary refill <3 seconds NEURO: Intubated C/c/g +, PERRLA; normal vestibulo- ocular reflex Localizing in the RUE/BLE No response to NS in the LUE ASSESSMENT AND PLAN Neuro: Seizures Iczq-Cbjpwazc-Mlvsqv Syndrome - Seizure Management - Monitor neurostatus with neurochecks Q8H - Initial seizure presentation: GTC - Loaded with 20 mg of Versed, 2g IV Fosphenytoin, 32.4 mg phenobarbital, - Propofol/versed/ketamine gtt; provider to titrate - Home AED regimen: Keppra 1000 mg, bid; Phenobarbital 15 mg - Maintenance AED regimen and recent drug levels: - Keppra 1500 mg Q12H - Phenobarbital 32.4 Q12H - trough level subtherapeutic at 11 (2/3) Recent Labs 04/01/23 0809 PHENOBARBITA 11.0* - Monitor CK on admission and Q6H (see renal) - 03/30/2023 cEEG, DC 2/3 - Last electrographic seizure: None - read: Nonspecific moderate diffuse encephalopathy, in part due to medication effect. R hemispheric structural or physiologic abnormality. 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 - MRI brain w/o contrast ordered - Metabolic: - Check ammonia, amylase, lipase, LFTs No results for input(s): AMMONIA, AMYLASE, LIPASE, TSH, T4FREE, B12, FOLATE in the last 72 hours. Invalid input(s): LFT - Pain/Sedation management - Gabapentin 400q8 - precedex gtt Psych: Anxiety Depression - Sertraline 125 mg; home dose Pulm: Acute Hypoxic Respiratory Failure ANIRUDH Ventilator/Non-Ventilator Mode: A/C PRVC Set Respiratory Rate/Release Rate: 16 PEEP (cm H2O): 6 Pressure Support (cmH2O): 10 O2 Sat (%): 100 % (04/01 1000) O2 Device: ventilator (mechanical ventilation) (04/01 0800) Oxygen Concentration (%): 30 (04/01 1000) - Goal SpO2 >92%; wean FiO2 as tolerated - - [id number], encourage pulmonary toileting - Trialed on CPAP; multiple apnea episodes, placed back onto rate - likely related to medication side effects Imaging: - 03/30 CXR: normal CP result, no acute pathology Cards: Cardiomyopathy Acute NSTEMI HTN Temp: [97.5 F (36.4 C)-99.3 F (37.4 C)] 97.5 F (36.4 C) Pulse (Heart Rate): [73-100] 79 Resp Rate: [10-21] 18 BP: (118-183)/(62-86) 139/78 O2 Sat (%): [96 %-100 %] 100 % - Goal SBP <160, MAP >65 - Home antihypertensives: amlodipine 10 mg, furosemide 40 mg; spironolactone 50 mg - PRN labetalol and hydralazine - 03/23/2020 TTE: Normal ejection fraction with no wall motion abnormalities - 1/31 troponin: 303 (OSH); 150 --> 147 (No additional orders) - 03/30 ECG: NSR, no abnormalities - Statin Therapy: not indicated Renal/: No Current Issues - Fluid Balance: - Goal: euvolemia Intake/Output Summary (Last 24 hours) at 04/01/2023 1038 Last data filed at 04/01/2023 0800 Gross per 24 hour Intake 1174.03 ml Output 1600 ml Net -425.97 ml - Continue PureWick - Maintenance: n/a - Daily Chem 10; electrolytes replaced per NCCU protocol Recent Labs 03/30/23 1230 03/30/23 1424 03/31/23 0123 03/31/23 0517 04/01/23 0003 SODIUM 134* -- -- 139 139 POTASSIUM 5.2* < > -- 3.6 3.5 CHLORIDE 102 -- -- 105 103 CO2 25 -- -- 25 26 BUN 8 -- -- 8 8 CREATSERUM 0.82 -- -- 0.67 0.61 MAGNESIUM 2.0 -- -- 1.8 1.9 PHOSPHORUS 3.6 -- -- 3.1 3.4 ICA -- -- 3.55* -- 4.33* CPK 503* -- -- -- -- < > = values in this interval not displayed. GI/Nutrition: GERD Recent Labs 03/30/23 1230 ALBUMIN 3.6 BILIDIRECT 0.1 BILITOTAL 0.8 ALKPHOS 71 ALT 12 AST 40* TP 6.3* - DIET NPO AND TUBE FEEDING with meds AAT - - Body mass index is 34.76 kg/m . 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) - Senna doubled, miralax scheduled Stress Ulcer Prophylaxis: Esomeprazole Endo: No Current Issues - Goal blood glucose 140-180 Recent Labs 03/31/23 1106 03/31/23 1750 04/01/23 0003 GLUCOSE 96 103* 97 99 - Insulin SSI: assess for need ID: No Current Issues Recent Labs 03/30/23 1337 03/31/23 0517 04/01/23 0003 WBC -- 7.50 9.01 LACT 0.8 -- -- - Temp (24hrs), Av.7 F (37.1 C), Min:97.5 F (36.4 C), Max:99.3 F (37.4 C) - PRN Tylenol for T>100.4F - Most recent and positive cultures: Date Collected Source Result Date Finalized 03/30 Staph swab MSSA 03/30 BCx NGTD 03/30 BAL negative - Antiinfectives: Start Date Antiinfective Coverage Course Length Stop Date Heme/Onc: Anemia 03/31 iron deficiency Recent Labs 03/30/23 1230 03/30/23 1311 03/31/23 0517 04/01/23 0003 WBC -- < > 7.50 9.01 RBC -- < > 4.34 4.48 HGB -- < > 12.6 12.8 HCT -- < > 39.4 41.3 PLATELET -- < > 161 161 150 PT 13.1 -- -- -- PTT 22.9* -- -- -- INR 1.0 -- -- -- < > = values in this interval not displayed. - Goal plt >100, INR <1.4, Hgb >7 - Lovenox for DVT Ppx started 03/31 Musc: No Current Issues - PT/OT consulted and following - Current Activity Order: AAAT Social/Dispo: - Code status: Full Code - 03/30: Medications reconciled - Discharge planning per PCRM/SW. Complexity. Hypocalcemia - Continue to monitor and replete. Obesity Body mass index is 34.76 kg/m . - Follow with PCP for dietary and lifestyle modifications. Any conditions listed below are present on admission unless otherwise specified. . ICU Checklist: [ ] CAM-ICU [ ] ICU Diary daily [ ] SAT [ ] SBT [x] DVT ppx; [ ] SCDs; [x] Lovenox, [ ] heparin [x] Stress ulcer prophylaxis: Nexium - Lines/Tubes: Napavine: inserted 03/29, (indication:BP monitoring) Discussed with NCCU Attending, Dr. Ainsley Solis MD Service pager: [phone] Service [place] #: [id number] (Beds [phone] and beds), [place] #: [id number] (Beds [phone] and [facility] beds) 04/01/23 10:38 AM NEUROCRITICAL CARE HISTORY AND PHYSICAL HOSPITAL VISIT DEMOGRAPHICS Patient: Mary Claudio Code status: Full Code Admission date: 03/30/2023 12:01 PM Hospital days: LOS: 1 day CHIEF COMPLAINT Status Epilepticus HISTORY OF PRESENT ILLNESS Mary Claudio is a 37 y.o. female with a past pertinent medical history of seizure disorder who initially presented to an OSH ED from her ECF in status. There is no clear chronicity regarding how long she had been in status, but it is thought to be ~ 1 hour. At the OSH, she received a total of 20 mg of Versed and loaded with keppra and phenobarbital. Given concern for inability to protect the airway, she was intubated and started on propofol and a fosphenytoin load of 2g IV. Additionally, she was noted to have a respiratory acidosis and elevated troponin of 309.3 -- likely related to demand ischemia. On review of chart, she has had several ER visits secondary to status epilepticus relating to medication non-adherence. She previously took Keppra, topiramate, and phenobarbital. Her seizure presentation is typically GTC. 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 INTERVAL HISTORY SINCE ADMISSION 03/30/2023: NCCU Admission 03/31/2023: Phenobarb trough; started on lovenox; no seizures on cEEG; started on TF; neurochecks expanded to q8 REVIEW OF SYSTEMS Review of systems not obtained due to obtundation. HISTORY No past medical history on file. No past surgical history on file. Social History Socioeconomic History Marital status: Not on file Spouse name: Not on file Number of children: Not on file Years of education: Not on file Highest education level: Not on file Occupational History Not on file Tobacco Use Smoking status: Not on file Smokeless tobacco: Not on file Substance and Sexual Activity Alcohol use: Not on file Drug use: Not on file Sexual activity: Not on file Other Topics Concern Not on file Social History Narrative Not on file Social Determinants of Health Financial Resource Strain: Not on file Food Insecurity: Not on file Transportation Needs: Not on file Physical Activity: Not on file Stress: Not on file Social Connections: Not on file Intimate Partner Violence: Not on file Housing Stability: Not on file ALLERGIES AND HOME MEDICATIONS Allergies: has no allergies on file. Home Medications: Medications Prior to Admission Medication Sig Dispense Refill Last Dose amLODIPine 10 MG tablet Take 1 tablet by mouth daily. faMOTIdine 20 MG tablet Take 1 tablet by mouth daily. Folic acid 1 MG tablet Take 1 tablet by mouth daily. furOSEmide 40 MG tablet Take 1 tablet by mouth daily. Gabapentin 400 MG capsule Take 1 capsule by mouth 3 times daily. Levetiracetam 1000 MG tablet Take 1 tablet by mouth 2 times daily. PHENobarbital 15 MG tablet Take 1 tablet by mouth every evening. phenobarbital 30 MG tablet Take 1 tablet by mouth 2 times daily. Potassium chloride 20 MEQ Tab CR tablet Take 1 tablet by mouth 2 times daily. Sertraline 100 MG tablet Take 1 tablet by mouth daily. Take with 25mg tablet for total dose of 125mg Sertraline 25 MG tablet Take 1 tablet by mouth daily. Take with 100mg tablet for total dose of 125mg spironolactone 50 MG tablet Take 1 tablet by mouth daily. Prior to Arrival Meds: Medications Prior to Admission Medication Sig Dispense Refill Last Dose amLODIPine 10 MG tablet Take 1 tablet by mouth daily. faMOTIdine 20 MG tablet Take 1 tablet by mouth daily. Folic acid 1 MG tablet Take 1 tablet by mouth daily. furOSEmide 40 MG tablet Take 1 tablet by mouth daily. Gabapentin 400 MG capsule Take 1 capsule by mouth 3 times daily. Levetiracetam 1000 MG tablet Take 1 tablet by mouth 2 times daily. PHENobarbital 15 MG tablet Take 1 tablet by mouth every evening. phenobarbital 30 MG tablet Take 1 tablet by mouth 2 times daily. Potassium chloride 20 MEQ Tab CR tablet Take 1 tablet by mouth 2 times daily. Sertraline 100 MG tablet Take 1 tablet by mouth daily. Take with 25mg tablet for total dose of 125mg Sertraline 25 MG tablet Take 1 tablet by mouth daily. Take with 100mg tablet for total dose of 125mg spironolactone 50 MG tablet Take 1 tablet by mouth daily. Hospital Medications: Infusions: Vital AF 1.2 Jean Carlos 10 mL/hr (03/31/23 0958) Scheduled: chlorhexidine 15 mL Mouth/Throat Q12H enoxaparin 40 mg Subcutaneous Daily esomeprazole 40 mg Per NG tube Daily Gabapentin 400 mg Per NG tube Q8H Insulin regular Subcutaneous Q6H levETIRAcetam 1,500 mg Intravenous Q12HNS PHENobarbital 32.4 mg Per NG tube Daily PHENobarbital 48.6 mg Per NG tube Q24H Senna 8.6 mg Oral Daily Or Senna 8.6 mg Per NG tube Daily Sertraline 125 mg Per NG tube Daily PRN: bisacodyl, Calcium Gluconate OR calcium gluconate, Insulin regular AND BLOOD GLUCOSE (POC DEVICE) AND BLOOD GLUCOSE (POC DEVICE) UDPRN AND COMMUNICATION ORDER FOR NURSING CARE: For Blood Glucose LESS THAN 80 mg/dl AND Dextrose AND glucose AND NOTIFY PHYSICIAN, Blood Glucose LESS THAN 80 mg/dl, hydrALAZINE OR hydrALAZINE, Labetalol OR Labetalol, magnesium sulfate, Polyethylene glycol OR Polyethylene glycol, potassium chloride OR Potassium chloride OR Potassium Bicarb-Citric Acid OR potassium chloride, Sodium chloride 0.9%, sodium phosphate OR sodium phosphate PHYSICAL EXAM GENERAL: Intubated HEENT: normocephalic, cEEG in-place CARDIO: +S1S2, RRR, no m/r/g, no edema PULM: clear to auscultation bilaterally; mechanically ventilated ABDOMINAL: soft, nontender, nondistended, active bowel sounds EXTREMITIES: no wounds or lesions VASCULAR: 2+ distal pulses, capillary refill <3 seconds NEURO: Intubated C/c/g +, PERRLA; normal vestibulo- ocular reflex Localizing in the RUE/BLE No response to NS in the LUE ASSESSMENT AND PLAN Neuro: Seizures - Seizure Management - Monitor neurostatus with neurochecks Q8H - Initial seizure presentation: GTC - Loaded with 20 mg of Versed, 2g IV Fosphenytoin, 32.4 mg phenobarbital, - Propofol/versed/ketamine gtt; provider to titrate - Home AED regimen: Keppra 1000 mg, bid; Phenobarbital 15 mg - Maintenance AED regimen and recent drug levels: - Keppra 1500 mg Q12H - Phenobarbital 32.4 Q12H No results for input(s): PHNYTOINFREE, LEVETIRACETA, YLACO, TOPIRAMSO, GABAPENTINSE, PHENOBARBITA in the last 72 hours. - Monitor CK on admission and Q6H (see renal) - 03/30/2023 cEEG placed. 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 - Metabolic: - Check ammonia, amylase, lipase, LFTs No results for input(s): AMMONIA, AMYLASE, LIPASE, TSH, T4FREE, B12, FOLATE in the last 72 hours. Invalid input(s): LFT Pentobarbital Trough: - 03/31/23: Pending - Pain/Sedation management - Gabapentin 400q8 Psych: Anxiety Depression - Sertraline 125 mg; home dose Pulm: Acute Hypoxic Respiratory Failure ANIRUDH Ventilator/Non-Ventilator Mode: A/C PRVC Set Respiratory Rate/Release Rate: 16 PEEP (cm H2O): 6 O2 Sat (%): 100 % (03/31 1326) O2 Device: ventilator (mechanical ventilation) (03/31 1325) Oxygen Concentration (%): 30 (03/31 1326) - Goal SpO2 >92%; wean FiO2 as tolerated - - [id number], encourage pulmonary toileting - Trialed on CPAP; multiple apnea episodes, placed back onto rate - likely related to medication side effects Imaging: - 03/30 CXR: normal CP result, no acute pathology Cards: Cardiomyopathy Acute NSTEMI HTN Temp: [97.6 F (36.4 C)-99.3 F (37.4 C)] 99.1 F (37.3 C) Pulse (Heart Rate): [67-108] 84 Resp Rate: [1-24] 16 BP: (122-163)/(70-108) 156/73 O2 Sat (%): [98 %-100 %] 100 % Weight: [89 kg (196 lb 3.4 oz)] 89 kg (196 lb 3.4 oz) - Goal SBP <160, MAP >65 - Home antihypertensives: amlodipine 10 mg, furosemide 40 mg; spironolactone 50 mg - PRN labetalol and hydralazine - 03/23/2020 TTE: Normal ejection fraction with no wall motion abnormalities - 03/29 troponin: 303 (OSH); 150 --> 147 (No additional orders) - 03/30 ECG: NSR, no abnormalities - Statin Therapy: not indicated Renal/: No Current Issues - Fluid Balance: - Goal: euvolemia Intake/Output Summary (Last 24 hours) at 03/31/2023 1348 Last data filed at 03/31/2023 1200 Gross per 24 hour Intake 787.17 ml Output 1228 ml Net -440.83 ml - Continue law, (indication: input/output monitoring) - Maintenance: 0.9NS w/ 20 KCl @ 75mL/hr - Daily Chem 10; electrolytes replaced per NCCU protocol Recent Labs 03/30/23 1230 03/30/23 1424 03/31/23 0123 03/31/23 0517 SODIUM 134* -- -- 139 POTASSIUM 5.2* 4.6 -- 3.6 CHLORIDE 102 -- -- 105 CO2 25 -- -- 25 BUN 8 -- -- 8 CREATSERUM 0.82 -- -- 0.67 MAGNESIUM 2.0 -- -- 1.8 PHOSPHORUS 3.6 -- -- 3.1 ICA -- -- 3.55* -- CPK 503* -- -- -- GI/Nutrition: GERD Recent Labs 03/30/23 1230 ALBUMIN 3.6 BILIDIRECT 0.1 BILITOTAL 0.8 ALKPHOS 71 ALT 12 AST 40* TP 6.3* - DIET NPO AND TUBE FEEDING with meds AAT - - Body mass index is 34.76 kg/m . 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) - Senna, miralax Stress Ulcer Prophylaxis: Famotidine 20 mg Endo: No Current Issues - Goal blood glucose 140-180 Recent Labs 03/30/23 2328 03/31/23 0517 03/31/23 0559 03/31/23 1106 GLUCOSE 72 79 74 96 - Insulin SSI: assess for need ID: No Current Issues Recent Labs 03/30/23 1311 03/30/23 1337 03/31/23 0517 WBC 8.55 -- 7.50 LACT -- 0.8 -- - Temp (24hrs), Av.8 F (37.1 C), Min:97.6 F (36.4 C), Max:99.3 F (37.4 C) - PRN Tylenol for T>100.4F - Most recent and positive cultures: Date Collected Source Result Date Finalized - Antiinfectives: Start Date Antiinfective Coverage Course Length Stop Date Heme/Onc: Anemia 2/2 iron deficiency Recent Labs 03/30/23 1230 03/30/23 1311 03/31/23 0517 WBC -- 8.55 7.50 RBC -- 4.46 4.34 HGB -- 12.8 12.6 HCT -- 42.0 39.4 PLATELET -- 145* 161 161 PT 13.1 -- -- PTT 22.9* -- -- INR 1.0 -- -- - Goal plt >100, INR <1.4, Hgb >7 Musc: No Current Issues - PT/OT consulted and following - Current Activity Order: AAAT Social/Dispo: - Code status: Full Code - 03/30: Medications reconciled - Discharge planning per PCRM/SW. Complexity. Hypocalcemia - Continue to monitor and replete. Obesity Body mass index is 34.76 kg/m . - Follow with PCP for dietary and lifestyle modifications. Any conditions listed below are present on admission unless otherwise specified. . ICU Checklist: [ ] CAM-ICU [ ] ICU Diary daily [ ] SAT [ ] SBT [x] DVT ppx; [ ] SCDs; [x] Lovenox, [ ] heparin - started on Lovenox 03/31 [ ] Stress ulcer prophylaxis: Famotidine (indication: stress ulcer prophylaxis/GERD) - Lines/Tubes: Lucila: inserted 03/29, (indication:BP monitoring) Discussed with NCCU Attending, Dr. Ainsley Martinez MD Service pager: [phone] Service [place] #: [id number] (Beds [phone] and beds), [place] #: [id number] (Beds [phone] and [facility]) 03/31/23 1:48 PM NEUROCRITICAL CARE HISTORY AND PHYSICAL HOSPITAL VISIT DEMOGRAPHICS Patient: Mary Claudio Code status: Full Code Admission date: 03/30/2023 12:01 PM Hospital days: LOS: 0 days CHIEF COMPLAINT Status Epilepticus HISTORY OF PRESENT ILLNESS Mary Claudio is a 37 y.o. female with a past pertinent medical history of seizure disorder who initially presented to an OSH ED from her ECF in status. There is no clear chronicity regarding how long she had been in status, but it is thought to be ~ 1 hour. At the OSH, she received a total of 20 mg of Versed and loaded with keppra and phenobarbital. Given concern for inability to protect the airway, she was intubated and started on propofol and a fosphenytoin load of 2g IV. Additionally, she was noted to have a respiratory acidosis and elevated troponin of 309.3 -- likely related to demand ischemia. On review of chart, she has had several ER visits secondary to status epilepticus relating to medication non-adherence. She previously took Keppra, topiramate, and phenobarbital. Her seizure presentation is typically GTC. 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 INTERVAL HISTORY SINCE ADMISSION 03/30/2023: NCCU Admission REVIEW OF SYSTEMS Review of systems not obtained due to obtundation. HISTORY No past medical history on file. No past surgical history on file. Social History Socioeconomic History Marital status: Not on file Spouse name: Not on file Number of children: Not on file Years of education: Not on file Highest education level: Not on file Occupational History Not on file Tobacco Use Smoking status: Not on file Smokeless tobacco: Not on file Substance and Sexual Activity Alcohol use: Not on file Drug use: Not on file Sexual activity: Not on file Other Topics Concern Not on file Social History Narrative Not on file Social Determinants of Health Financial Resource Strain: Not on file Food Insecurity: Not on file Transportation Needs: Not on file Physical Activity: Not on file Stress: Not on file Social Connections: Not on file Intimate Partner Violence: Not on file Housing Stability: Not on file ALLERGIES AND HOME MEDICATIONS Allergies: has no allergies on file. Home Medications: No medications prior to admission. Prior to Arrival Meds: No medications prior to admission. Hospital Medications: Infusions: Sodium chloride 0.9% w/potassium cl Scheduled: [START ON 03/31/2023] chlorhexidine 15 mL Mouth/Throat Q12H esomeprazole 40 mg Per NG tube Daily Gabapentin 300 mg Per NG tube BID Insulin regular Subcutaneous Q6H levETIRAcetam 1,500 mg Intravenous Q12HNS PHENobarbital 32.4 mg Per NG tube Q12H Senna 8.6 mg Oral Daily Or Senna 8.6 mg Per NG tube Daily Sertraline 100 mg Per NG tube Daily PRN: bisacodyl, Calcium Gluconate OR calcium gluconate, Insulin regular AND BLOOD GLUCOSE (POC DEVICE) AND BLOOD GLUCOSE (POC DEVICE) UDPRN AND COMMUNICATION ORDER FOR NURSING CARE: For Blood Glucose LESS THAN 80 mg/dl AND Dextrose AND glucose AND NOTIFY PHYSICIAN, Blood Glucose LESS THAN 80 mg/dl, hydrALAZINE OR hydrALAZINE, Labetalol OR Labetalol, magnesium sulfate, Polyethylene glycol OR Polyethylene glycol, potassium chloride OR Potassium chloride OR Potassium Bicarb-Citric Acid OR potassium chloride, Sodium chloride 0.9%, sodium phosphate OR sodium phosphate PHYSICAL EXAM GENERAL: Intubated HEENT: normocephalic, cEEG in-place CARDIO: +S1S2, RRR, no m/r/g, no edema PULM: clear to auscultation bilaterally; mechanically ventilated ABDOMINAL: soft, nontender, nondistended, active bowel sounds EXTREMITIES: no wounds or lesions VASCULAR: 2+ distal pulses, capillary refill <3 seconds NEURO: Intubated C/c/g +, PERRLA; normal vestibulo- ocular reflex Spontaneously moving RUE Localizing in BLE No response to NS in LUE ASSESSMENT AND PLAN Neuro: Seizures - Seizure Management - Monitor neurostatus with neurochecks Q1H and pupilometer Q1H - Initial seizure presentation: GTC - Loaded with 20 mg of Versed, 2g IV Fosphenytoin, 32.4 mg phenobarbital, - Propofol/versed/ketamine gtt; provider to titrate - Home AED regimen: Keppra 1000 mg, bid; Phenobarbital 15 mg - Maintenance AED regimen and recent drug levels: - Keppra 1500 mg Q12H - Phenobarbital 32.4 Q12H No results for input(s): PHNYTOINFREE, LEVETIRACETA, YLACO, TOPIRAMSO, GABAPENTINSE, PHENOBARBITA in the last 72 hours. - Monitor CK on admission and Q6H (see renal) - 03/30/2023 cEEG placed. 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 - Metabolic: - Check ammonia, amylase, lipase, LFTs No results for input(s): AMMONIA, AMYLASE, LIPASE, TSH, T4FREE, B12, FOLATE in the last 72 hours. Invalid input(s): LFT Ammonia (OSH): Amylase (OSH): Lipase (OSH): LFT's (OSH): - Pain/Sedation management - Tylenol 650mg Q4H PRN Psych: Anxiety Depression - Sertraline 100/25 mg; home dose - hold for now Pulm: Acute Hypoxic Respiratory Failure ANIRUDH Ventilator/Non-Ventilator Mode: A/C PRVC Set Respiratory Rate/Release Rate: 18 PEEP (cm H2O): 6 O2 Sat (%): 100 % (03/30 1205) O2 Device: ventilator (mechanical ventilation) (03/30 1200) Oxygen Concentration (%): 30 (03/30 1205) - Goal SpO2 >92%; wean FiO2 as tolerated - - [id number], encourage pulmonary toileting - 03/30 CXR: normal CP result, no acute pathology Cards: Cardiomyopathy Acute NSTEMI HTN Temp: [97.9 F (36.6 C)] 97.9 F (36.6 C) Pulse (Heart Rate): [68] 68 Resp Rate: [19] 19 BP: (135)/(90) 135/90 O2 Sat (%): [100 %] 100 % - Goal SBP <160, MAP >65 - Home antihypertensives: amlodipine 10 mg, furosemide 40 mg; spironolactone 50 mg - PRN labetalol and hydralazine - 03/23/2020 TTE: Normal ejection fraction with no wall motion abnormalities - 03/29 troponin: 303 (OSH) - repeat - 03/30 ECG: NSR, no abnormalities - Statin Therapy: not indicated Renal/: No Current Issues - Fluid Balance: - Goal: euvolemia No intake or output data in the 24 hours ending 03/30/23 1331 - Continue law, (indication: input/output monitoring) - Maintenance: 0.9NS w/ 20 KCl @ 75mL/hr - Daily Chem 10; electrolytes replaced per NCCU protocol No results for input(s): SODIUM, POTASSIUM, CHLORIDE, CO2, BUN, CREATSERUM, MAGNESIUM, PHOSPHORUS, ICA, CPK in the last 72 hours. GI/Nutrition: GERD No results for input(s): ALBUMIN, BILIDIRECT, BILITOTAL, ALKPHOS, ALT, AST, TP, AMYLASE, LIPASE in the last 72 hours. - DIET NPO with meds AAT - - There is no height or weight on file to calculate BMI. - Bowel regimen: - - Senna, miralax Endo: No Current Issues - Goal blood glucose 140-180 No results for input(s): GLUCOSE, HGBA1C in the last 72 hours. - Insulin SSI: assess for need ID: No Current Issues No results for input(s): WBC, LACT, PROCALCITONI in the last 72 hours. - Temp (24hrs), Av.9 F (36.6 C), Min:97.9 F (36.6 C), Max:97.9 F (36.6 C) - PRN Tylenol for T>100.4F - Most recent and positive cultures: Date Collected Source Result Date Finalized - Antiinfectives: Start Date Antiinfective Coverage Course Length Stop Date Heme/Onc: Anemia 2/2 iron deficiency No results for input(s): WBC, RBC, HGB, HCT, PLATELET, PT, PTT, INR, FIBRINOGEN in the last 72 hours. - Goal plt >100, INR <1.4, Hgb >7 Musc: No Current Issues - PT/OT consulted and following - Current Activity Order: AAAT Social/Dispo: - Code status: Full Code - 03/30: Medications reconciled - Discharge planning per PCRM/SW. Complexity. Any conditions listed below are present on admission unless otherwise specified. . ICU Checklist: [ ] CAM-ICU [ ] ICU Diary daily [ ] SAT [ ] SBT [x] DVT ppx; [ ] SCDs; [x] Lovenox, [ ] heparin [ ] Stress ulcer prophylaxis: Famotidine (indication: stress ulcer prophylaxis/GERD) - Lines/Tubes: Napavine: inserted 03/29, (indication:BP monitoring) Law: inserted 03/30, (indication:Input/Output Monitoring) Discussed with NCCU Attending, Dr. Ainsley Martinez MD Service pager: [phone] Service [place] #: [id number] (Beds [phone] and beds), [place] #: [id number] (Beds [phone] and [facility] beds) 03/30/23 12:35 PM documented in this encounter [facility] 03-31-2023 History and physical note NEUROCRITICAL CARE HISTORY AND PHYSICAL HOSPITAL VISIT DEMOGRAPHICS Patient: Mary Claudio Code status: Full Code Admission date: 03/30/2023 12:01 PM Hospital days: LOS: 1 day CHIEF COMPLAINT Status Epilepticus HISTORY OF PRESENT ILLNESS Mary Claudio is a 37 y.o. female with a past pertinent medical history of seizure disorder who initially presented to an OSH ED from her ECF in status. There is no clear chronicity regarding how long she had been in status, but it is thought to be ~ 1 hour. At the OSH, she received a total of 20 mg of Versed and loaded with keppra and phenobarbital. Given concern for inability to protect the airway, she was intubated and started on propofol and a fosphenytoin load of 2g IV. Additionally, she was noted to have a respiratory acidosis and elevated troponin of 309.3 -- likely related to demand ischemia. On review of chart, she has had several ER visits secondary to status epilepticus relating to medication non-adherence. She previously took Keppra, topiramate, and phenobarbital. Her seizure presentation is typically GTC. 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 INTERVAL HISTORY SINCE ADMISSION 03/30/2023: NCCU Admission 03/31/2023: Phenobarb trough; started on lovenox; no seizures on cEEG; started on TF; neurochecks expanded to q8 REVIEW OF SYSTEMS Review of systems not obtained due to obtundation. HISTORY No past medical history on file. No past surgical history on file. Social History Socioeconomic History Marital status: Not on file Spouse name: Not on file Number of children: Not on file Years of education: Not on file Highest education level: Not on file Occupational History Not on file Tobacco Use Smoking status: Not on file Smokeless tobacco: Not on file Substance and Sexual Activity Alcohol use: Not on file Drug use: Not on file Sexual activity: Not on file Other Topics Concern Not on file Social History Narrative Not on file Social Determinants of Health Financial Resource Strain: Not on file Food Insecurity: Not on file Transportation Needs: Not on file Physical Activity: Not on file Stress: Not on file Social Connections: Not on file Intimate Partner Violence: Not on file Housing Stability: Not on file ALLERGIES AND HOME MEDICATIONS Allergies: has no allergies on file. Home Medications: Medications Prior to Admission Medication Sig Dispense Refill Last Dose amLODIPine 10 MG tablet Take 1 tablet by mouth daily. faMOTIdine 20 MG tablet Take 1 tablet by mouth daily. Folic acid 1 MG tablet Take 1 tablet by mouth daily. furOSEmide 40 MG tablet Take 1 tablet by mouth daily. Gabapentin 400 MG capsule Take 1 capsule by mouth 3 times daily. Levetiracetam 1000 MG tablet Take 1 tablet by mouth 2 times daily. PHENobarbital 15 MG tablet Take 1 tablet by mouth every evening. phenobarbital 30 MG tablet Take 1 tablet by mouth 2 times daily. Potassium chloride 20 MEQ Tab CR tablet Take 1 tablet by mouth 2 times daily. Sertraline 100 MG tablet Take 1 tablet by mouth daily. Take with 25mg tablet for total dose of 125mg Sertraline 25 MG tablet Take 1 tablet by mouth daily. Take with 100mg tablet for total dose of 125mg spironolactone 50 MG tablet Take 1 tablet by mouth daily. Prior to Arrival Meds: Medications Prior to Admission Medication Sig Dispense Refill Last Dose amLODIPine 10 MG tablet Take 1 tablet by mouth daily. faMOTIdine 20 MG tablet Take 1 tablet by mouth daily. Folic acid 1 MG tablet Take 1 tablet by mouth daily. furOSEmide 40 MG tablet Take 1 tablet by mouth daily. Gabapentin 400 MG capsule Take 1 capsule by mouth 3 times daily. Levetiracetam 1000 MG tablet Take 1 tablet by mouth 2 times daily. PHENobarbital 15 MG tablet Take 1 tablet by mouth every evening. phenobarbital 30 MG tablet Take 1 tablet by mouth 2 times daily. Potassium chloride 20 MEQ Tab CR tablet Take 1 tablet by mouth 2 times daily. Sertraline 100 MG tablet Take 1 tablet by mouth daily. Take with 25mg tablet for total dose of 125mg Sertraline 25 MG tablet Take 1 tablet by mouth daily. Take with 100mg tablet for total dose of 125mg spironolactone 50 MG tablet Take 1 tablet by mouth daily. Hospital Medications: Infusions: Vital AF 1.2 Jean Carlos 10 mL/hr (03/31/23 0958) Scheduled: chlorhexidine 15 mL Mouth/Throat Q12H enoxaparin 40 mg Subcutaneous Daily esomeprazole 40 mg Per NG tube Daily Gabapentin 400 mg Per NG tube Q8H Insulin regular Subcutaneous Q6H levETIRAcetam 1,500 mg Intravenous Q12HNS PHENobarbital 32.4 mg Per NG tube Daily PHENobarbital 48.6 mg Per NG tube Q24H Senna 8.6 mg Oral Daily Or Senna 8.6 mg Per NG tube Daily Sertraline 125 mg Per NG tube Daily PRN: bisacodyl, Calcium Gluconate OR calcium gluconate, Insulin regular AND BLOOD GLUCOSE (POC DEVICE) AND BLOOD GLUCOSE (POC DEVICE) UDPRN AND COMMUNICATION ORDER FOR NURSING CARE: For Blood Glucose LESS THAN 80 mg/dl AND Dextrose AND glucose AND NOTIFY PHYSICIAN, Blood Glucose LESS THAN 80 mg/dl, hydrALAZINE OR hydrALAZINE, Labetalol OR Labetalol, magnesium sulfate, Polyethylene glycol OR Polyethylene glycol, potassium chloride OR Potassium chloride OR Potassium Bicarb-Citric Acid OR potassium chloride, Sodium chloride 0.9%, sodium phosphate OR sodium phosphate PHYSICAL EXAM GENERAL: Intubated HEENT: normocephalic, cEEG in-place CARDIO: +S1S2, RRR, no m/r/g, no edema PULM: clear to auscultation bilaterally; mechanically ventilated ABDOMINAL: soft, nontender, nondistended, active bowel sounds EXTREMITIES: no wounds or lesions VASCULAR: 2+ distal pulses, capillary refill <3 seconds NEURO: Intubated C/c/g +, PERRLA; normal vestibulo- ocular reflex Localizing in the RUE/BLE No response to NS in the LUE ASSESSMENT AND PLAN Neuro: Seizures - Seizure Management - Monitor neurostatus with neurochecks Q8H - Initial seizure presentation: GTC - Loaded with 20 mg of Versed, 2g IV Fosphenytoin, 32.4 mg phenobarbital, - Propofol/versed/ketamine gtt; provider to titrate - Home AED regimen: Keppra 1000 mg, bid; Phenobarbital 15 mg - Maintenance AED regimen and recent drug levels: - Keppra 1500 mg Q12H - Phenobarbital 32.4 Q12H No results for input(s): PHNYTOINFREE, LEVETIRACETA, YLACO, TOPIRAMSO, GABAPENTINSE, PHENOBARBITA in the last 72 hours. - Monitor CK on admission and Q6H (see renal) - 03/30/2023 cEEG placed. 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 - Metabolic: - Check ammonia, amylase, lipase, LFTs No results for input(s): AMMONIA, AMYLASE, LIPASE, TSH, T4FREE, B12, FOLATE in the last 72 hours. Invalid input(s): LFT Pentobarbital Trough: - 03/31/23: Pending - Pain/Sedation management - Gabapentin 400q8 Psych: Anxiety Depression - Sertraline 125 mg; home dose Pulm: Acute Hypoxic Respiratory Failure ANIRUDH Ventilator/Non-Ventilator Mode: A/C PRVC Set Respiratory Rate/Release Rate: 16 PEEP (cm H2O): 6 O2 Sat (%): 100 % (03/31 1325) O2 Device: ventilator (mechanical ventilation) (03/31 1325) Oxygen Concentration (%): 30 (03/31 1325) - Goal SpO2 >92%; wean FiO2 as tolerated - - TSN5BPY, encourage pulmonary toileting - Trialed on CPAP; multiple apnea episodes, placed back onto rate - likely related to medication side effects Imaging: - 03/30 CXR: normal CP result, no acute pathology Cards: Cardiomyopathy Acute NSTEMI HTN Temp: [97.6 F (36.4 C)-99.3 F (37.4 C)] 99.1 F (37.3 C) Pulse (Heart Rate): [67-108] 84 Resp Rate: [1-24] 16 BP: (122-163)/(70-108) 156/73 O2 Sat (%): [98 %-100 %] 100 % Weight: [89 kg (196 lb 3.4 oz)] 89 kg (196 lb 3.4 oz) - Goal SBP <160, MAP >65 - Home antihypertensives: amlodipine 10 mg, furosemide 40 mg; spironolactone 50 mg - PRN labetalol and hydralazine - 03/23/2020 TTE: Normal ejection fraction with no wall motion abnormalities - 03/29 troponin: 303 (OSH); 150 --> 147 (No additional orders) - 03/30 ECG: NSR, no abnormalities - Statin Therapy: not indicated Renal/: No Current Issues - Fluid Balance: - Goal: euvolemia Intake/Output Summary (Last 24 hours) at 03/31/2023 1348 Last data filed at 03/31/2023 1200 Gross per 24 hour Intake 787.17 ml Output 1228 ml Net -440.83 ml - Continue thanh, (indication: input/output monitoring) - Maintenance: 0.9NS w/ 20 KCl @ 75mL/hr - Daily Chem 10; electrolytes replaced per NCCU protocol Recent Labs 03/30/23 1230 03/30/23 1424 03/31/23 0123 03/31/23 0517 SODIUM 134* -- -- 139 POTASSIUM 5.2* 4.6 -- 3.6 CHLORIDE 102 -- -- 105 CO2 25 -- -- 25 BUN 8 -- -- 8 CREATSERUM 0.82 -- -- 0.67 MAGNESIUM 2.0 -- -- 1.8 PHOSPHORUS 3.6 -- -- 3.1 ICA -- -- 3.55* -- CPK 503* -- -- -- GI/Nutrition: GERD Recent Labs 03/30/23 1230 ALBUMIN 3.6 BILIDIRECT 0.1 BILITOTAL 0.8 ALKPHOS 71 ALT 12 AST 40* TP 6.3* - DIET NPO AND TUBE FEEDING with meds AAT - - Body mass index is 34.76 kg/m . 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) - Senna, miralax Stress Ulcer Prophylaxis: Famotidine 20 mg Endo: No Current Issues - Goal blood glucose 140-180 Recent Labs 03/30/23 2328 03/31/23 0517 03/31/23 0559 03/31/23 1106 GLUCOSE 72 79 74 96 - Insulin SSI: assess for need ID: No Current Issues Recent Labs 03/30/23 1311 03/30/23 1337 03/31/23 0517 WBC 8.55 -- 7.50 LACT -- 0.8 -- - Temp (24hrs), Av.8 F (37.1 C), Min:97.6 F (36.4 C), Max:99.3 F (37.4 C) - PRN Tylenol for T>100.4F - Most recent and positive cultures: Date Collected Source Result Date Finalized - Antiinfectives: Start Date Antiinfective Coverage Course Length Stop Date Heme/Onc: Anemia 2/2 iron deficiency Recent Labs 03/30/23 1230 03/30/23 1311 03/31/23 0517 WBC -- 8.55 7.50 RBC -- 4.46 4.34 HGB -- 12.8 12.6 HCT -- 42.0 39.4 PLATELET -- 145* 161 161 PT 13.1 -- -- PTT 22.9* -- -- INR 1.0 -- -- - Goal plt >100, INR <1.4, Hgb >7 Musc: No Current Issues - PT/OT consulted and following - Current Activity Order: AAAT Social/Dispo: - Code status: Full Code - 03/30: Medications reconciled - Discharge planning per PCRM/SW. Complexity. Hypocalcemia - Continue to monitor and replete. Obesity Body mass index is 34.76 kg/m . - Follow with PCP for dietary and lifestyle modifications. Any conditions listed below are present on admission unless otherwise specified. . ICU Checklist: [ ] CAM-ICU [ ] ICU Diary daily [ ] SAT [ ] SBT [x] DVT ppx; [ ] SCDs; [x] Lovenox, [ ] heparin - started on Lovenox 03/31 [ ] Stress ulcer prophylaxis: Famotidine (indication: stress ulcer prophylaxis/GERD) - Lines/Tubes: Napavine: inserted 03/29, (indication:BP monitoring) Discussed with NCCU Attending, Dr. Ainsley Martinez MD Service pager: [phone] Service [place] #: [id number] (Beds [id number] and beds), [place] #: [id number] (Beds [id number] and [facility] beds) 03/31/23 1:48 PM [facility] Work Phone: 03-31-2023 Procedure note Associated Ord er(s): EEG [facility]CI MONITORING Procedure(s): EEG TELEGRAPH PLANT MAINTAINER MONITORING STUDY NAME: Continuous video-EEG recording REFERRING PHYSICIAN: Richard Zhang APRN-ASHLEY DATE AND TIME START OF RECORDIN03/30/2023@1602 DATE AND TIME END OF RECORDIN03/31/2023@1200 (ongoing study) HISTORY: 37yoF admitted on 03/30/2023 with status epilepticus. cEEG obtained to monitor for ongoing seizures and treatment response. MEDICATIONS AT START: [START ON 03/31/2023] chlorhexidine 15 mL Mouth/Throat Q12H esomeprazole 40 mg Per NG tube Daily Gabapentin 400 mg Per NG tube Q8H Insulin regular Subcutaneous Q6H levETIRAcetam 1,500 mg Intravenous Q12HNS [START ON 03/31/2023] PHENobarbital 32.4 mg Per NG tube Daily PHENobarbital 48.6 mg Per NG tube Q24H Senna 8.6 mg Oral Daily Or Senna 8.6 mg Per NG tube Daily [START ON 03/31/2023] Sertraline 125 mg Per NG tube Daily Sodium chloride 0.9% w/potassium cl TECHNICAL DESCRIPTION: This is a 21-channel digital EEG recording with time-locked video and single-channel electrocardiogram. Electrodes are placed according to the 10 to 20 International System. The patient was monitored continuously by EEG technicians with EEG reviewed intermittently and annotations made to the EEG record every two hours. Portions of this record are reviewed using bandpass filters of 1 to 70 Hz and sensitivity of 7mV/mm. DESCRIPTION: Clinical State: intubated INTERICTAL: Background: continuous, asymmetric, no PDR, absent AP gradient Superimposed Frequencies: excess beta, alpha , delta/theta Voltage: >20V Reactivity: -03/30/2023@1643(CYSTE): no EEG/clinical reactivity State Change: present without N2 ; quiet state with diffuse decrease in amplitude and fast activity Focal Asymmetry: continuous R hemispheric polymorphic delta slowing Rhythmic or Periodic Patterns: occasional 0.5-1.0Hz SI-LRDA over R hemisphere (not qualifying for ESz nor IIC) Sporadic ED's: frequent R temporal sharp/spike-waves maximal at T8/F8>P8 with broad field Brief Rhythmic Discharges: none EKG: NSR ICTAL / EVENTS: Seizure: none Other Clinical Events: none Activation Procedures Hyperventilation: N/A Photic stimulation: N/A Summary of EEG and Behavior: Diffuse slowing/disorganization R hemispheric slowing Excess beta Frequent R temporal IEDs Occasional 0.5-1.0Hz SI-LRDA (not qualifying for ESz nor IIC) No EKG abnormality Clinical Correlation: This 2 day cEEG was abnormal. The findings were consistent with: 1) Nonspecific moderate diffuse encephalopathy, in part due to medication effect 2) R hemispheric structural or physiologic abnormality 3) R temporal cortical irritation and risk for focal onset seizures This is an ongoing study. The report will be continued in a separate dictation. Torrey Heller MD EEG Attending Golf Instructor Department of Neurology, Epilepsy Division [facility] 03-31-2023 Consult note Formatting of th is note is different from the original. Vascular Access Consult Note: MIDLINE Consultation and Evaluation NOTE: When drawing from midline, 1.) Scrub the hub and use a tourniquet HIGH on the arm 2.) For labs, use a SYRINGE and not a Vacutainer 3.) GENTLY fill syringe, do not pull back vigorously on plunger 4.) May require SLIGHT backward traction on hub while drawing sample 5.) PULSATILE flush of 10mL normal saline Patient seen and evaluated for MIDLINE catheter insertion using ultrasound guidance. ID band present, allergies and limb precautions verified with patient/nurse. Skin integrity within normal limits at time of insertion. No evidence of ecchymosis, infiltration, hematoma, edema, or any condition that would prevent safe insertion of a MIDLINE catheter with ultrasound. I have reviewed pertinent laboratory results. Lab Results Component Value Date WBC 7.50 03/31/2023 HGB 12.6 03/31/2023 HCT 39.4 03/31/2023 PLATELET 161 03/31/2023 PLATELET 161 03/31/2023 MCV 90.8 03/31/2023 Lab Results Component Value Date CREATSERUM 0.67 03/31/2023 Lab Results Component Value Date INR 1.0 03/30/2023 PT 13.1 03/30/2023 Lab Results Component Value Date PTT 22.9 (L) 03/30/2023 Temp Readings from Last 1 Encounters: 03/31/23 99 F (37.2 C) I have discussed the following issues with the ordering clinician: N/A Procedure explained to patient. Anatomical distortion to interfere with placement: attempted x2 on right, unable to advance Arm preference for venous access: Left Arm Patient is cooperative, no distress, appears stated age Patient Teaching: No Family Teaching: No PROCEDURE DETAILS: MIDLINE Insertion Procedure Using standard sterile technique access was obtained. Good blood return noted, catheter flushed easily with 10mL normal saline. Statlock securement device placed dressing applied. Patient denies pain at insertion site. Midline Catheter - Single Lumen EPIV AST 03/31/23 0930 brachial vein, left open-ended catheter 18 gauge (Active) 03/31/23 0930 Midline Type: EPIV Classification: AST Present On Admission : no Lumen 1: Additional Lumens: Lumen 2: Lumen 3: Lumen 4: Lumen 5: Location: brachial vein, left Device: open-ended catheter Size: 18 gauge Inserted Catheter Length (cm): 10 Guiding Device: ultrasound Skate Hop/Lot Number: [id number] Inserted By: registered nurse Unsuccessful Insertion Attempts: 2 Unsuccessful Insertion Attempt Location(s): Pain Prevention: Patient Tolerance: Insertion: tolerated well Catheter Length Distal to Site (cm): Removal Indication: Additional Comments: (Retired/Read Only) Side: (Retired/Read Only) Location: Drain/Device Type: Pain Prevention: Peripheral IV Line - Single Lumen 03/30/23 1200 forearm, anterior, left 20 gauge (Active) 03/30/23 1200 Present On Admission : yes Guiding Device: Lumen 1: Additional Lumens: Lumen 2: Location: forearm, anterior, left Device/Lot Number: Gauge/Length: 20 gauge Unsuccessful Insertion Attempts: Unsuccessful Attempt Location/Site: Pain Prevention/Patient Tolerance: Removal: Additional Comments: Lumen 3: Peripheral IV Present on Admission: (Retired/Read Only) Location: (Retired/Read Only) Device: (Retired/Read Only) Gauge/Length: Skate Hop/Lot Number: Unsuccessful Insertion Attempts: (Retired/Read Only) Unsuccessful Attempt Locations: Pain Prevention: Patient Tolerance: Insertion: Removal Indication: Peripheral IV Location - Orientation: Peripheral IV Location: Insertion Site WDL WDL 03/31/23 08 Site Preparation/Maintenance dressing: dry and intact 03/31/23 08 Securement catheter stabilization device, secured with 03/31/23 08 Lumen 1 Patency/Maintenance flushed without difficulty 03/31/23 08 Phlebitis 0-->no symptoms 03/31/23 08 Infiltration 0-->no symptoms 03/31/23 08 Indication medication therapy;fluid therapy 03/31/23 08 Peripheral IV Line - Single Lumen 03/31/23 0139 blue forearm, posterior, left 22 gauge (Active) 03/31/23 0139 Present On Admission : no Guiding Device: ultrasound Lumen 1: blue Additional Lumens: Lumen 2: Location: forearm, posterior, left Device/Lot Number: Gauge/Length: 22 gauge Unsuccessful Insertion Attempts: Unsuccessful Attempt Location/Site: Pain Prevention/Patient Tolerance: tolerated well Removal: Additional Comments: Lumen 3: Peripheral IV Present on Admission: (Retired/Read Only) Location: (Retired/Read Only) Device: (Retired/Read Only) Gauge/Length: Skate Hop/Lot Number: Unsuccessful Insertion Attempts: (Retired/Read Only) Unsuccessful Attempt Locations: Pain Prevention: Patient Tolerance: Insertion: Removal Indication: Peripheral IV Location - Orientation: Peripheral IV Location: Insertion Site WDL WDL 03/31/23799 Site Preparation/Maintenance dressing: dry and intact 03/31/23799 Securement catheter stabilization device, secured with 03/31/23799 Lumen 1 Patency/Maintenance flushed without difficulty 03/31/23799 Phlebitis 0-->no symptoms 03/31/23799 Infiltration 0-->no symptoms 03/31/23799 Indication fluid therapy;medication therapy 03/31/23799 Patient tolerated procedure well without any complications. Primary RN notified of procedure completion. Extra insertion note if applicable: MIDLINES ARE NOT RECOMMENDED FOR INFUSION OF VESICANTS MIDLINES ARE NOT A GUARANTEED SOURCE FOR RELIABLE BLOOD COLLECTION [X] Antimicrobial dressing. [] Unable to place antimicrobial foam disc/drsg due to: N/A [] Obtained labs. [X] Call light in reach. [X] Bed low and locked. [X] Tray table within reach. Education: Patient/Family informed to notify nurse of any complications including pain, redness, swelling, or leaking post insertion. Thank you for allowing our team to participate in the care of this patient. Vascular Access Team [phone] [facility] 03-31-2023 Plan of care note Problem: Nutrition, Enteral (Adult) Goal: Signs and Symptoms of Listed Potential Problems Will be Absent, Minimized or Managed (Nutrition, Enteral) Description: Signs and symptoms of listed potential problems will be absent, minimized or managed by discharge/transition of care (reference Nutrition, Enteral (Adult) CPG). Outcome: Ongoing Nutrition Recommendations and Plan of Care: Initiate TF of Vital AF 1.2 at 10 mL/hr. Increase by 10 mL/hr q4 hours as tolerated until goal rate of 55 mL/hr is achieved to provide 1320 mL total volume, 1584 kcal (25 kcal/kg adj IBW), and 99 g PRO (1.9 g/kg IBW). Free water per primary team. Recommend minimum of 30 mL q4 hours x 6 daily to maintain tube patency. Monitor TF intake, TF tolerance, GI function, skin integrity, weight changes, and labs. RD to continue to follow. [facility] 03-31-2023 Consult note Formatting of th is note might be different from the original. Vascular Access Consult Note Assessment: Patient seen and evaluated for Ultrasound guided lab draw. ID band present, patient verification completed, allergies verified, and patient/nurse questioned of limb precautions. Skin integrity assessed at time of insertion, no condition present that would prevent safe insertion of a peripheral IV with ultrasound to complete lab draw. Lab request verified, lab orders current. Insertion Using aseptic technique, Ultrasound guided PIV catheter inserted into RAC site to obtain lab draw. Specimen collected. Ultrasound guided PIV removed. Specimen labeled at bedside. Collection process verified in IHIS bedside RN notified of the above Patient safety check completed prior to exiting room [x]Call light. [x]Bed locked. [x]Bed low. [x]Tray table within reach. Thank you for allowing our team to participate in the care of this patient. Vascular Access Team [phone] [facility] 03-31-2023 Nurse procedure note Call from EMU: - pt having R epileptiform discharges on cEEG, associated with rhythmic activity, however this activity appears to be stimulus induced. Unclear if true seizures. --> Discussed with Dr. Schmitz. Will continue to monitor for now, hold on any medication changes. [facility] 03-30-2023 Note Acute Coronary Syndr ome (ACS): Initial Evaluation and Management: [email or web address] [facility] 03-30-2023 Nurse Note On admission to [facility], from outside facility a dual RN initial assessment of skin condition was performed by Destiny Ley RN and Sandy Whatley. Skin Assessment: Skin not within defined limits. - Wound(s) identified: Yes - Photo taken and uploaded into notes in IHIS: Yes Nikolai Score: 14 LDA Added:Yes Destiny Ley RN [facility] 03-30-2023 Note Acute Coronary Syndr ome (ACS): Initial Evaluation and Management: [email or web address] [facility] 03-30-2023 History and physical note NEUROCRITICAL CARE HISTORY AND PHYSICAL HOSPITAL VISIT DEMOGRAPHICS Patient: Mary Claudio Code status: Full Code Admission date: 03/30/2023 12:01 PM Hospital days: LOS: 0 days CHIEF COMPLAINT Status Epilepticus HISTORY OF PRESENT ILLNESS Mary Claudio is a 37 y.o. female with a past pertinent medical history of seizure disorder who initially presented to an OSH ED from her [facility] in status. There is no clear chronicity regarding how long she had been in status, but it is thought to be ~ 1 hour. At the OSH, she received a total of 20 mg of Versed and loaded with keppra and phenobarbital. Given concern for inability to protect the airway, she was intubated and started on propofol and a fosphenytoin load of 2g IV. Additionally, she was noted to have a respiratory acidosis and elevated troponin of 309.3 -- likely related to demand ischemia. On review of chart, she has had several ER visits secondary to status epilepticus relating to medication non-adherence. She previously took Keppra, topiramate, and phenobarbital. Her seizure presentation is typically GTC. 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 INTERVAL HISTORY SINCE ADMISSION 03/30/2023: NCCU Admission REVIEW OF SYSTEMS Review of systems not obtained due to obtundation. HISTORY No past medical history on file. No past surgical history on file. Social History Socioeconomic History Marital status: Not on file Spouse name: Not on file Number of children: Not on file Years of education: Not on file Highest education level: Not on file Occupational History Not on file Tobacco Use Smoking status: Not on file Smokeless tobacco: Not on file Substance and Sexual Activity Alcohol use: Not on file Drug use: Not on file Sexual activity: Not on file Other Topics Concern Not on file Social History Narrative Not on file Social Determinants of Health Financial Resource Strain: Not on file Food Insecurity: Not on file Transportation Needs: Not on file Physical Activity: Not on file Stress: Not on file Social Connections: Not on file Intimate Partner Violence: Not on file Housing Stability: Not on file ALLERGIES AND HOME MEDICATIONS Allergies: has no allergies on file. Home Medications: No medications prior to admission. Prior to Arrival Meds: No medications prior to admission. Hospital Medications: Infusions: Sodium chloride 0.9% w/potassium cl Scheduled: [START ON 03/31/2023] chlorhexidine 15 mL Mouth/Throat Q12H esomeprazole 40 mg Per NG tube Daily Gabapentin 300 mg Per NG tube BID Insulin regular Subcutaneous Q6H levETIRAcetam 1,500 mg Intravenous Q12HNS PHENobarbital 32.4 mg Per NG tube Q12H Senna 8.6 mg Oral Daily Or Senna 8.6 mg Per NG tube Daily Sertraline 100 mg Per NG tube Daily PRN: bisacodyl, Calcium Gluconate OR calcium gluconate, Insulin regular AND BLOOD GLUCOSE (POC DEVICE) AND BLOOD GLUCOSE (POC DEVICE) UDPRN AND COMMUNICATION ORDER FOR NURSING CARE: For Blood Glucose LESS THAN 80 mg/dl AND Dextrose AND glucose AND NOTIFY PHYSICIAN, Blood Glucose LESS THAN 80 mg/dl, hydrALAZINE OR hydrALAZINE, Labetalol OR Labetalol, magnesium sulfate, Polyethylene glycol OR Polyethylene glycol, potassium chloride OR Potassium chloride OR Potassium Bicarb-Citric Acid OR potassium chloride, Sodium chloride 0.9%, sodium phosphate OR sodium phosphate PHYSICAL EXAM GENERAL: Intubated HEENT: normocephalic, cEEG in-place CARDIO: +S1S2, RRR, no m/r/g, no edema PULM: clear to auscultation bilaterally; mechanically ventilated ABDOMINAL: soft, nontender, nondistended, active bowel sounds EXTREMITIES: no wounds or lesions VASCULAR: 2+ distal pulses, capillary refill <3 seconds NEURO: Intubated C/c/g +, PERRLA; normal vestibulo- ocular reflex Spontaneously moving RUE Localizing in BLE No response to NS in LUE ASSESSMENT AND PLAN Neuro: Seizures - Seizure Management - Monitor neurostatus with neurochecks Q1H and pupilometer Q1H - Initial seizure presentation: GTC - Loaded with 20 mg of Versed, 2g IV Fosphenytoin, 32.4 mg phenobarbital, - Propofol/versed/ketamine gtt; provider to titrate - Home AED regimen: Keppra 1000 mg, bid; Phenobarbital 15 mg - Maintenance AED regimen and recent drug levels: - Keppra 1500 mg Q12H - Phenobarbital 32.4 Q12H No results for input(s): PHNYTOINFREE, LEVETIRACETA, YLACO, TOPIRAMSO, GABAPENTINSE, PHENOBARBITA in the last 72 hours. - Monitor CK on admission and Q6H (see renal) - 03/30/2023 cEEG placed. 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 - Metabolic: - Check ammonia, amylase, lipase, LFTs No results for input(s): AMMONIA, AMYLASE, LIPASE, TSH, T4FREE, B12, FOLATE in the last 72 hours. Invalid input(s): LFT Ammonia (OSH): Amylase (OSH): Lipase (OSH): LFT's (OSH): - Pain/Sedation management - Tylenol 650mg Q4H PRN Psych: Anxiety Depression - Sertraline 100/25 mg; home dose - hold for now Pulm: Acute Hypoxic Respiratory Failure ANIRUDH Ventilator/Non-Ventilator Mode: A/C PRVC Set Respiratory Rate/Release Rate: 18 PEEP (cm H2O): 6 O2 Sat (%): 100 % (03/30 1205) O2 Device: ventilator (mechanical ventilation) (03/30 1200) Oxygen Concentration (%): 30 (03/30 1205) - Goal SpO2 >92%; wean FiO2 as tolerated - - [id number], encourage pulmonary toileting - 03/30 CXR: normal CP result, no acute pathology Cards: Cardiomyopathy Acute NSTEMI HTN Temp: [97.9 F (36.6 C)] 97.9 F (36.6 C) Pulse (Heart Rate): [68] 68 Resp Rate: [19] 19 BP: (135)/(90) 135/90 O2 Sat (%): [100 %] 100 % - Goal SBP <160, MAP >65 - Home antihypertensives: amlodipine 10 mg, furosemide 40 mg; spironolactone 50 mg - PRN labetalol and hydralazine - 03/23/2020 TTE: Normal ejection fraction with no wall motion abnormalities - 03/29 troponin: 303 (OSH) - repeat - 03/30 ECG: NSR, no abnormalities - Statin Therapy: not indicated Renal/: No Current Issues - Fluid Balance: - Goal: euvolemia No intake or output data in the 24 hours ending 03/30/23 1331 - Continue law, (indication: input/output monitoring) - Maintenance: 0.9NS w/ 20 KCl @ 75mL/hr - Daily Chem 10; electrolytes replaced per NCCU protocol No results for input(s): SODIUM, POTASSIUM, CHLORIDE, CO2, BUN, CREATSERUM, MAGNESIUM, PHOSPHORUS, ICA, CPK in the last 72 hours. GI/Nutrition: GERD No results for input(s): ALBUMIN, BILIDIRECT, BILITOTAL, ALKPHOS, ALT, AST, TP, AMYLASE, LIPASE in the last 72 hours. - DIET NPO with meds AAT - - There is no height or weight on file to calculate BMI. - Bowel regimen: - - Senna, miralax Endo: No Current Issues - Goal blood glucose 140-180 No results for input(s): GLUCOSE, HGBA1C in the last 72 hours. - Insulin SSI: assess for need ID: No Current Issues No results for input(s): WBC, LACT, PROCALCITONI in the last 72 hours. - Temp (24hrs), Av.9 F (36.6 C), Min:97.9 F (36.6 C), Max:97.9 F (36.6 C) - PRN Tylenol for T>100.4F - Most recent and positive cultures: Date Collected Source Result Date Finalized - Antiinfectives: Start Date Antiinfective Coverage Course Length Stop Date Heme/Onc: Anemia 2/2 iron deficiency No results for input(s): WBC, RBC, HGB, HCT, PLATELET, PT, PTT, INR, FIBRINOGEN in the last 72 hours. - Goal plt >100, INR <1.4, Hgb >7 Musc: No Current Issues - PT/OT consulted and following - Current Activity Order: AAAT Social/Dispo: - Code status: Full Code - 03/30: Medications reconciled - Discharge planning per PCRM/SW. Complexity. Any conditions listed below are present on admission unless otherwise specified. . ICU Checklist: [ ] CAM-ICU [ ] ICU Diary daily [ ] SAT [ ] SBT [x] DVT ppx; [ ] SCDs; [x] Lovenox, [ ] heparin [ ] Stress ulcer prophylaxis: Famotidine (indication: stress ulcer prophylaxis/GERD) - Lines/Tubes: [place]: inserted 03/29, (indication:BP monitoring) Law: inserted 03/30, (indication:Input/Output Monitoring) Discussed with NCCU Attending, Dr. Ainsley Martinez MD Service pager: [phone] Service [place] #: [id number] (Beds [phone] and beds), [place] #: [id number] (Beds [phone] and [facility]) 03/30/23 12:35 PM [facility] 05-04-2022 History of Present illness Narrative Images from the original note were not included. [facility] Psychiatric Transportation Request Of Note: For the safety of the patient and EMS crews the patient must remain in the purple psychiatric gown. Patient belongings must be kept away from the patient at all times. A PCS and or CMN will need to be provided before the transportation to the EMS Crews. Psychiatric Transports Only Ambulance Requesting Staff Member Call Back Number: [phone] Requesting Hospital: [facility]-38/-[id number] Attending Provider: Dustin Cartagena DO Patient Name: First Robson Blank Crystal : 1985 Destination Name: [facility] [address] , [place] [address] Primary Insurance: Payor: [facility] MEDICAID ADVANTAGE / Plan: [facility] MEDICAID ADVANTAGE / Product Type: *No Product type* / [place] Slipped: PINK SLIPPED Psychiatric Diagnosis: Depression, failure to thrive Reason For Visit Chief Complaint Patient presents with Altered Mental Status Pt presents as a voluntary from [facility] where nurses state she is acting confused and might have had an absent seizure. Hx seizures. Pt also complaining of left leg pain denies any injuries. Past Medical History: has no past medical history on file. Length of Stay: Less than 12 hours Patient Weight: Is the Patient Combative or Discussed Elopement? No Has the patient required Physical or Chemical restraints? No Will the patient require restraints during transport? No Requested Heading Repairer Date & Time: DEBBIE Other Important Information: Patient returning to [facility] Images from the original note were not included. Mary Claudio is a 36 y.o. female with a history of cognitive delay, failure to thrive, seizure disorder presenting from [facility] for evaluation for increased lethargy as well as leg pain and possible seizure activity. Patient is a poor historian. She states that she is here because she had an absence seizure yesterday evening. She also has some right leg pain. She does have some areas of bruising diffusely over her body that are random. No obvious deformity of the right lower extremity but she points to her mid anterior thigh as location of pain. Denies any hip or knee pain. No numbness, tingling or weakness. She generally feels weak. REVIEW OF SYSTEMS: A ten point review of systems was conducted and was negative aside from as noted in the HPI and/or in other provider documentation. No past medical history on file. No past surgical history on file. No Known Allergies Social History Socioeconomic History Marital status: Spouse name: Not on file Number of children: Not on file Years of education: Not on file Highest education level: Not on file Occupational History Not on file Tobacco Use Smoking status: Not on file Smokeless tobacco: Not on file Substance and Sexual Activity Alcohol use: Not on file Drug use: Not on file Sexual activity: Not on file Other Topics Concern Not on file Social History Narrative Not on file Home Medications None Physical Exam Physical Exam Visit Vitals BP (!) 140/93 Pulse 91 Temp 36.7 C (98 F) Resp 18 SpO2 93% CONSTITUTIONAL: NAD EYES: PERRL. EOMI. No conjunctival injection. No icterus. HENT: External ears normal, external nose normal. Mouth and throat clear. Mucous membranes are dry. Neck supple non-tender. Head atraumatic. RESPIRATORY: Normal chest excursion with respiration. Clear to auscultation, no wheezes. CARDIOVASCULAR: Regular rhythm. No murmurs. No cyanosis. No peripheral edema. GASTROINTESTINAL: Abdomen soft, non-distended, non-tender, no guarding or rigidity. NEUROLOGICAL: Awake, alert.slow speech. 4 out of 5 strength in bilateral upper and lower extremities. Sensation intact in bilateral upper extremities. Cranial nerves II through XII intact. PSYCHOLOGICAL: The patient's mood and manner are appropriate. Grooming and personal hygiene are appropriate. INTEGUMENTARY: Warm and dry. No rash noted. MUSCULOSKELETAL: There are no deformities noted, grossly normal strength. Medical Decision Making Patient is a 36 y.o. female presenting to the ED for evaluation of right leg pain and possible seizure yesterday evening. She was monitored in the emergency department. No further seizure activity. Patient able to answer my questions appropriately appears to be at her baseline. She underwent work-up in which her head CT was negative. Chest x-ray showing small area of possible atelectasis versus infiltrate. Likely atelectasis at this time. Patient denies any shortness of breath or productive cough. Urine does have leukocytes in the 500 range with bacteria present. Suspect likely UTI. As far as the right lower extremity pain she has full range of motion of the right lower extremity pain seems to be more so over the right anterior thigh. No calf tenderness or posterior leg tenderness or inner thigh tenderness to suggest DVT. No asymmetrical edema. X-ray negative for any fracture including the hip and femur. At this time patient will be discharged with recommendations to follow-up with her primary care physician. I spoke with Mena who is a nurse that cares for the patient's nights. She states that there was concern for the night previous that she would perhaps have a focal seizure. Throughout the day she seemed more tired than usual and they are unsure if that was behavior also err on the side of caution I sent her to the ER for evaluation. I discussed that while in the ER the patient has been alert during her hours long stay. She did answer my questions appropriately after discussing the patient's current status it does appear that she is at her normal baseline. Discussed recommendations to follow-up with her neurologist and plan to treat for UTI. Agreeable with that plan. Differential Diagnosis Considered -: Yes, the differential associated with the patient's presentation includes Seizure, failure to thrive, UTI, PNA, hypokalemia, dehdyration, left fracture, among other differentials. Escalation of care including admission/observation considered -: admission for failure to thrive and neuro consult I reviewed the patient's EKG is performed at 18: 25 showed sinus rhythm 83 bpm. Normal axis. Intervals within normal limits. Isolated PVC. Review of External Record -: Yes: Outpatient record Patient has her records from [facility] in her chart at this time she has a history and physical which was performed on April 22, 2022 at 2 PM. This was brought with her by EMS. She was admitted to [facility] for failure to thrive. Found on her couch in her home lying in urine and feces. All protective service found her that way in the home. She lives with her and 4 children as well as her 's girlfriend. She has frequent admissions to the ED related to hypokalemia. Discharged on 07/07/2022. Referred to adult developmental delay board. He has a difficult time recalling any of her past information she is a poor historian. Indicates she has a history of seizures however is unable to relay when the last seizure was present. Medical history includes cognitive dysfunction, debility, hypertension, hypokalemia, morbid obesity, paresthesias, seizure disorder as well as recent UTI. Clinical Impressions as of 05/04/22 0004 Urinary tract infection without hematuria, site unspecified Right leg pain DIAGNOSTIC IMPRESSION: 1. Urinary tract infection without hematuria, site unspecified 2. Right leg pain DISPOSITION: Discharge Dustin Cartagena, DO 05/03/22 1803 Dustin Cartagena, DO 05/03/22 1828 Dustin Cartagena, DO 05/04/22 0004 Dustin Cartagena, DO 05/04/22 0007 Dustin Cartagena, 05/04/22 0008 Dustin Osiel, 05/04/22 0020 documented in this encounter [facility] 05-04-2022 Hospital Discharge instructions Dustin Cartagena DO - 05/04/2022 12:08 AM EST 1. Please follow up with your primary care physician within 2-3 days. 2. Please return to the Emergency Department if symptoms worsen, if you have any other concerns, or for any of the following reasons: Fever, vision changes, chest pain, shortness of breath, difficulty breathing, abdominal pain, numbness or tingling, or any weaknesses. 3. Please take medications as prescribed. The following attachments cannot be sent through Care Everywhere.UTI (Urinary Tract Infection): Female (Swedish)Leg Pain (Swedish)documented in this encounter [facility] 05-03-2022 Note Formatting of this n ote might be different from the original. Bed: BP-38 Expected date: Expected time: Means of arrival: Comments: Medic [facility] 05-03-2022 Miscellaneous Notes Bed: BP-38 Expected date: Expected time: Means of arrival: Comments: Medic documented in this encounter [facility] 04-19-2022 Miscellaneous Notes Reviewed. Patient was admitted and will be transferred to [facility]. Zita Myers LPN Recommend OV in 5-7 days for ER follow up. Patient seen in ER again for weakness. Telephoned patient, unable to get ahold of. Letter sent. Scan on 04/12/2022 11:00 PM by External Provider: ED Summary Thank you. If she does not call back by Monday, would recommend sending her a letter. Patient seen in [facility] ER 3x this month. Was in [facility], then [facility] rehab floor and now recent discharge says to follow up with PCP within one week. Call to patient, went to but unable to leave message. Below I will attach ED summaries. All other testing and hospital paper work is scanned into chart. Scan on 03/31/2022 9:24 PM by External Provider: ED Summary Scan on 04/07/2022 5:30 AM by External Provider: ED Summary Scan on 04/10/2022 3:31 PM by External Provider: ED Summary documented in this encounter [facility] 04-18-2022 History and physi jean carlos note Note Date/Time April 18, 2022 10:42am [facility] Medical Records Department [address] [place] [address] H&P Exam - Hospitalist 04/18/22 1040 MR#: [id number] Acct: [id number] Name: MARY CLAUDIO Rep #:[id number] : 1985 36 From: Awa Massey DO PCP: Dr. Himanshu Sanchez MD Status :REG ER Location: ED HPI - General General Date of Admission: 04/18/22 Date of Service: 04/18/22 Chief Complaint: Failure to Thrive HPI Narrative MARY CLAUDIO, is a 36 F who presented department [facility] on 04/14/2022 when police did an adult check at her home and she was found lying on her couch covered in urine and feces. They called the squad and had her brought in. She lives with her but she reports he cheats on her. They have 4 children together. She states she graduated from [employer] butis unable to tell me the year she graduated. She states she can read a little. She states she has been but unable to tell me how long she has been . She does have frequent presentations to the emergency department and her most recent admission was related to hypokalemia. She was discharged home on 04/09/2022. Since that discharge she been to the emergency department 3 times, on , , and again this presentation on the . She was referredto the adult developmental delay board. Children services is also involved. She has no complaints other than the inability to take care of herself and intermittent leg pain that she states causes her not to be able to take care of herself. She has had work-up for this leg pain and no etiology has been identified. There seem to be possible psychological and significant social issues. Multiple attempts were made by the emergency department to have her placed in a psychiatric facility for ongoing care however no facilities were able to be identified at this time so she will require admission to the hospitaluntil this can be sorted out. Vital signs while in the emergency department have overall been unremarkable. Lab work obtained on the day of admission showed an unremarkable CBC and mild hypokalemia with a potassium of 3.3 on her chemistry panel but this was otherwise unremarkable. Her urine was suggestive of infection however no bacteria was seen on high-power field and she had just recently been treated for urinary tract infection. [facility] Medical History Cognitive dysfunction Debility HTN (hypertension) Hypokalemia Morbid obesity Paresthesias Seizure disorder Urinary tract infection UTI (urinary tract infection) Home Medications ferrous sulfate 325 mg (65 mg iron) tablet 325 mg PO DAILY@0800 supplement 03/17/20 [History Last Taken 1 Day Ago ~04/14/22] gabapentin 300 mg capsule 300 mg PO BID neuropathy #60 caps 04/06/20 [Rx Last Taken 1 Day Ago ~04/14/22] levetiracetam 1,000 mg tablet 1,000 mg PO BID seizures #60 tabs 04/06/20 [Rx Last Taken 1 Day Ago ~04/14/22] amlodipine 5 mg tablet 10 mg PO DAILY BP 09/16/21 [History Last Taken 1 Day Ago ~04/14/22] phenobarbital 64.8 mg tablet 64.8 mg PO BID SEIZURES 03/02/22 [History Last Taken 1 Day Ago ~04/14/22] acetaminophen 325 mg tablet (Tylenol) 650 mg PO Q6H PRN PRN Pain 1-10 Or Fever>100.7 #0 tabs 03/09/22 [Rx Last Taken Unknown] cyanocobalamin (vitamin B-12) 500 mcg tablet 1,000 mcg PO BREAKFAST #0 tabs 03/09/22 [Rx Last Taken 1 Day Ago ~04/14/22] menthol 0.44 %-zinc oxide 20.6 % topical ointment (Calmoseptine) 1 applic topical TID #0 grams 03/09/22 [Rx Last Taken Unknown] sennosides 8.6 mg-docusate sodium 50 mg tablet (Stool Softener-Stimulant Laxative) 2 tab PO BID PRN PRN Constipation #0 tabs 03/09/22 [Rx Last Taken Unknown] folic acid 1 mg tablet 1 mg PO BREAKFAST supplement 04/07/22 [History Last Taken 1 Day Ago ~04/14/22] pantoprazole 40 mg tablet,delayed release (Protonix) 40 mg PO DAILY GI 04/07/22 [History Last Taken 1 Day Ago ~04/14/22] sucralfate 1 gram tablet 1 g PO 0700,1100,1600 GI 04/07/22 [History Last Taken Unknown] topiramate 100 mg tablet 100 mg PO BID seizures 04/07/22 [History Last Taken 1 Day Ago ~04/14/22] potassium chloride 20 mEq tablet,extended release(part/cryst) 20 meq PO BID SUPPLEMENT 04/15/22 [History Last Taken 1 Day Ago ~04/14/22] sertraline 50 mg tablet 50 mg PO DAILY MOOD 04/15/22 [History Last Taken 1 Day Ago ~04/14/22] spironolactone 25 mg tablet 25 mg PO DAILY . 04/15/22 [History Last Taken 1 Day Ago ~04/14/22] Allergy/AdvReac Type Severity Reaction Status Date / Time fluconazole Allergy NEEDS Verified 04/10/22 13:05 FOLLOW-UP naproxen Allergy Hives Verified 04/10/22 13:05 Family History Other Leukemia Social History household members: significant other, family and children housing: house Smoking Status: Former smoker alcohol intake: never substance use type: does not use ROS Constitutional Constitutional: Denies anorexia, change in weight, chills, fatigue, fever(s), malaise, night sweats, weakness or other Eyes Eyes: Denies blurry vision, change in eye color, change in vision, discharge from eye(s), double vision, erythema, eye pain, loss of vision or other ENT HEENT: Denies abnormal hearing, dysphagia, ear pain, epistaxis, headache(s), hearing loss, nasal congestion, nasal discharge, post nasal drip, sinus pressure, sore throat or other Cardiovascular Cardiovascular: Denies chest pain, claudication, dyspnea on exertion, edema, lightheadedness, orthopnea, palpitations, paroxysmal nocturnal dyspnea, rapid heart rate, syncope or other Respiratory/Chest Respiratory/Chest: Denies cough, dyspnea, excessive phlegm production, hemoptysis, productive cough, shortness of breath at rest, shortness of breath with exertion, wheezing or other Gastrointestinal Gastrointestinal: Denies abdominal pain, coffee ground emesis, constipation, diarrhea, dyspepsia, hematemesis, hematochezia, loose stools, melena, nausea, vomiting or other Genitourinary Genitourinary: Denies burning urination, difficulty urinating, dysuria, hematuria, nocturia, urinary frequency, urinary hesitancy, urinary incontinence,urinary urgency or other Musculoskeletal Musculoskeletal: Reports other Details: Left leg pain ; Denies arthralgias, back pain, joint pain, joint stiffness, joint swelling, myalgias or neck pain Neurologic Neurologic: Reports numbness, paresthesias, tingling and other Details: Chronic bilateral lower extremity neuropathy ; Denies abnormal gait, abnormal speech, confusion, disequilibrium, dizziness, focal weakness, headache(s), seizure-like activity, seizures, syncope or tremor(s) Psychiatric Psychiatric: Reports depression; Denies anxiety, homicidal ideation, suicidal ideation or other Endocrine Endocrinology: Denies change in body appearance, cold intolerance, excessive sweating, heat intolerance, polydipsia, polyuria or other Hematologic/Lymphatic Hematologic/Lymphatic: Denies anemia, easy bleeding, easy bruising, lymphadenopathy or other Allergic/Immunologic Allergic/Immunologic: Denies rhinitis, hives, eczemia, asthma or other Vital Signs Vital Signs Vital Signs: 04/17/22 11:00 04/17/22 13:00 04/17/22 19:00 Pulse Rate Respiratory Rate 16 18 14 Blood Pressure Blood Pressure Mean Pulse Ox Oxygen Delivery Method 04/17/22 21:00 04/17/22 23:00 04/18/22 01:00 Pulse Rate 91 Respiratory Rate 14 14 18 Blood Pressure 127/88 H Blood Pressure Mean 101 Pulse Ox 99 Oxygen Delivery Method Room Air 04/18/22 03:00 04/18/22 05:00 04/18/22 07:00 Pulse Rate Respiratory Rate 16 14 16 Blood Pressure Blood Pressure Mean Pulse Ox Oxygen Delivery Method 04/18/22 09:51 Pulse Rate 73 Respiratory Rate 16 Blood Pressure 140/90 H Blood Pressure Mean 106 Pulse Ox 100 Oxygen Delivery Method Room Air Weight Weight: 81.8 kg Body Mass Index (BMI) 28.2 Physical Exam Const alert, oriented x3, no apparent distress and well nourished Constitutional Narrative: Middle-aged, overweight, white female, lying in bed sleeping but awakens easily,upon awakening is able to fully communicate HEENT normocephalic, head/scalp atraumatic, hearing grossly normal bilaterally and moist oral mucous membranes HEENT Narrative: Dentition is fair, Mallampati is 3, no thrush Resp normal respiratory effort, no retractions, no use of accessory muscles and clearto auscultation bilaterally Auscultation: Negative for rales, rhonchi or wheezes Cardio regular rate, regular rhythm, S1 normal heart sound, S2 normal heart sound, no murmurs, no rub, no gallops and no clicks GI normal to inspection, nondistended, normoactive bowel sounds, soft to palpation and non-tender Extremity no clubbing, cyanosis or edema Extremity Narrative: 2+ pedal pulses Skin Skin Narrative: Multiple ecchymotic areas on bilateral upper extremities-patient states these are from needle sticks in the emergency department however they are not in locations he would typically see venipuncture Neuro oriented x3, moves all extremities and no focal motor deficits Neuro Narrative: Speech is normal quality however response time is a bit delayed at times Psych affect normal Results Lab / Micro Data Attestation: I reviewed the patient's lab results. Result Diagrams: 04/14/22 18:25 04/14/22 18:25 Assessment & Plan Assessment/Plan (1) Adult failure to thrive: (2) Hypokalemia: (3) Cognitive dysfunction: PLAN: Plan Failure to Thrive -Suspect there are psychological and social components to this -We will need placement at discharge -PT/OT consultation -Case management consultation/social work consultation Hypokalemia -Slightly low at 3.3 on presentation -Repeat BMP and mag level in a.m. Urinary incontinence -Seems to be voluntary -Patient does not notify nursing and sits in urine without telling anybody -Seems to be psychologically mediated Hypertension -Continue home amlodipine Seizure disorder -Continue home Keppra -Continue home phenobarbital -Continue home Topamax Neuropathy -Continue home gabapentin Suspected developmental delay -Follow-up as above -Patient has never had previous services GERD -continue home PPI by -Continue home Carafate DVT prophylaxis -Continue enoxaparin 40 mg daily CODE STATUS Full code Charges/Coding Visit Charges Inpatient E&M: 89609 Init Hosp L2 04/18/22 1148 <Electronically signed by Awa Massey DO> Cosigner Signature (if applicable): CC: Dr. Himanshu Sanchez MD; Dr. Awa Massey DO~ Signed [facility] Work Phone: [phone] 416-151602-20-[address] King [facility] April 18, 2022 10:28am Note Date/Time April 14, 2022 6:11pm [facility] Medical Records Department [address] [place] [address] Emergency Department Summary 04/14/22 MR#: [id number] Acct: [id number] Name: MARY CLAUDIO Rep #:[id number] : 1985 36 From: Padilla Huerta MD PCP: Dr. Himanshu Sanchez MD Status :REG ER Location: ED ADDENDUM by Dr. Joo King MD on 04/18/22 at 1028 Patient turned over to md at transition between night and morning shifts. Patient underwent medical evaluation and has been unremarkable, social work is aware of the patient has tried to get her to a psychiatric facility but every facility in the state has declined her from the report I have been given. We were waiting on [facility] which was the last facility and they just declined the patient, saying that she is not appropriate for inpatient psychiatric care. drive worker has deemed her unable to care for herself at home and therefore inappropriate to be discharged at this time. Apparently children services and APS are involved. The patient requires placement to extended care facility, will discuss with hospitalist for admission for further evaluation for placement. 04/18/22 1028<Electronically signed by Joo King MD> Cosigner Signature (if applicable): cc: Dr. Himanshu Sanchez MD ~* Signed ADDENDUM by Dr. Dheeraj Lopes MD on 04/15/22 at 1601 EKG reveals a normal sinus rhythm rate of 92. [place] interval is 134 ms. QRS duration 60 ms. QT duration is 376 ms. [place] is normal. EKG is normal. Serum test was negative. UA was unremarkable. 04/15/22 1601<Electronically signed by Dheeraj Lopes MD> Cosigner Signature (if applicable): cc: Dr. Himanshu Sanchez MD ~* Signed ADDENDUM by Dr. Dheeraj Lopes MD on 04/15/22 at 1052 Patient's care was transferred to md this morning. Patient had uneventful night. Patient was seen by case management. She contacted facility. There is a new physician on duty. The new physician is requesting a test, UA, EKG and alcohol level. These were ordered. The nurse entered patient's meds which she has not received since she arrived in the emergency department. 04/15/22 1053<Electronically signed by Dheeraj Lopes MD> Cosigner Signature (if applicable): cc: Dr. Himanshu Sanchez MD ~* Signed HPI History of Present Illness Chief Complaint: Weakness Detail of Chief Complaint: Failure to thrive. Covered in feces and urine. Informant: patient Onset/Context/Timing Onset: Days Context: Gradual Onset Timing: Continuous Current Severity: Mild Maximum Severity: Mild Narrative Narrative: 36-year-old female history of cognitive dysfunction, hypertension, seizure priorGI bleed. She has been seen here multiple times in the last 2 months. She was just admitted within the last 10 days for hypokalemia. She was seen in the last24 hours. Basically returns police did a adult check at her home she was lying on her couch covered in urine and feces. They called the squad and had her brought in. She has presented this way several times. There are a lot of social situations that are being evaluated in home. She is also been referred to the adult developmental delay board. Children services also involved becauseher 3-4 children at home. Reportedly she is and does live in the home also. She denies any complaints. Prior similar symptoms: Yes Recent Illness/Hospitalization: Yes [facility] Medical History Cognitive dysfunction Debility HTN (hypertension) Hypokalemia Morbid obesity Paresthesias Seizure disorder Urinary tract infection UTI (urinary tract infection) Home Medications ferrous sulfate 325 mg (65 mg iron) tablet 325 mg PO DAILY@0800 supplement 03/17/20 [History Last Taken 03/02/22] gabapentin 300 mg capsule 300 mg PO BID neuropathy #60 caps 04/06/20 [Rx Last Taken 03/02/22] levetiracetam 1,000 mg tablet 1,000 mg PO BID seizures #60 tabs 04/06/20 [Rx Last Taken 03/02/22] amlodipine 5 mg tablet 10 mg PO DAILY BP 09/16/21 [History Last Taken 03/02/22] phenobarbital 64.8 mg tablet 64.8 mg PO BID SEIZURES 03/02/22 [History Last Taken 03/02/22] acetaminophen 325 mg tablet (Tylenol) 650 mg PO Q6H PRN PRN Pain 1-10 Or Fever>100.7 #0 tabs 03/09/22 [Rx Last Taken Unknown] cyanocobalamin (vitamin B-12) 500 mcg tablet 1,000 mcg PO BREAKFAST #0 tabs 03/09/22 [Rx Last Taken Unknown] menthol 0.44 %-zinc oxide 20.6 % topical ointment (Calmoseptine) 1 applic topical TID #0 grams 03/09/22 [Rx Last Taken Unknown] sennosides 8.6 mg-docusate sodium 50 mg tablet (Stool Softener-Stimulant Laxative) 2 tab PO BID PRN PRN Constipation #0 tabs 03/09/22 [Rx Last Taken Unknown] ferrous sulfate 325 mg (65 mg iron) tablet (FeroSul) mg 04/07/22 [History Last Taken Unknown] folic acid 1 mg tablet 1 mg PO BREAKFAST supplement 04/07/22 [History Last Taken Unknown] pantoprazole 40 mg tablet,delayed release (Protonix) 40 mg PO DAILY GI 04/07/22 [History Last Taken Unknown] sucralfate 1 gram tablet 1 g PO 0700,1100,1600 GI 04/07/22 [History Last Taken Unknown] sulfamethoxazole 800 mg-trimethoprim 160 mg tablet 1 tab PO BID antibiotic 04/07/22 [History Last Taken Unknown] topiramate 100 mg tablet 100 mg PO BID seizures 04/07/22 [History Last Taken Unknown] Allergy/AdvReac Type Severity Reaction Status Date / Time fluconazole Allergy NEEDS Verified 04/10/22 13:05 FOLLOW-UP naproxen Allergy Hives Verified 04/10/22 13:05 Family History Other Leukemia Social History household members: significant other, family and children housing: house Smoking Status: Former smoker alcohol intake: never substance use type: does not use ROS ROS ED ROS Narrative Denies. Review of Systems ROS Unobtainable: Denies due to encephalopathy Constitutional Constitutional ED: Denies chills or fever(s) Eyes Eyes: Denies blurry vision ENT ENT ED: Denies ear pain Cardiovascular Cardiovascular: Denies chest pain Respiratory/Chest Respiratory/Chest: Denies cough or dyspnea Gastrointestinal Gastrointestinal: Denies abdominal pain Genitourinary Genitourinary ED: Denies dysuria or hematuria Musculoskeletal Musculoskeletal: Denies arthralgias Integumentary Denies abscess Neurologic Neurologic: Denies headache(s) Psychiatric Psychiatric: Denies anxiety Endocrine Endocrinology: Denies cold intolerance Hematologic/Lymphatic Hematologic/Lymphatic: Reports none Allergic/Immunologic Allergic/Immunologic ED: Denies mouth swelling, tongue swelling or urticaria EXAM Physical Exam Narrative Exam Narrative: Well-appearing 36-year-old female. Vital signs are stable afebrile. Pulse ox 99% room air no signs hypoxia. She is in no distress. She sitting upright in bed. Nurses have cleaned her off reportedly she presented covered in urine and feces. H EENT exam unremarkable atraumatic. Neck nontender no lymphadenopathy. Lungs clear to auscultation bilaterally. Heart regular rhythm no murmur. Abdomen soft nontender. Normal bowel sounds no peritoneal signs. Moving all 4 extremities. Nontender no deformity. Normal control chemist strength. Normal dorsi plantarflexion. Back nontender. Neurologically she is awake and alert. Answering questions and following commands. Const Vital Signs: 04/14/22 17:34 04/14/22 17:42 04/14/22 19:34 Temperature 97.6 F L Temperature Source Temporal Pulse Rate 79 Respiratory Rate 15 16 Respiratory Effort Normal Non-Labored Respiratory Pattern Normal Blood Pressure 148/96 H Blood Pressure Mean 113 Pulse Ox 99 Oxygen Delivery Method Room Air 04/14/22 21:00 Temperature Temperature Source Pulse Rate 77 Respiratory Rate 16 Respiratory Effort Respiratory Pattern Blood Pressure 135/77 H Blood Pressure Mean 96 Pulse Ox 98 Oxygen Delivery Method Room Air Positive well nourished, well developed, obese and unkempt; Negative for cachectic or contractures General Appearance ED: unkempt, well developed and NAD; Negative for cachectic, contractures, cyanotic, diaphoretic or pallor Nutritional Appearance: obese; Negative for cachectic HEENT Reports moist mucous membranes; Denies dry mucous membranes Negative for trauma or tenderness Mouth ED: No dry mucous membranes Mouth: No dry mucous membranes Eyes PERRL and EOMs intact bilaterally General Eye ED: Negative for pale conjunctiva or scleral icterus Neck no lymphadenopathy, supple and no JVD General: Negative for tenderness Lymph Lymphatic: Negative for other Chest Wall inspection of chest normal and palpation of chest normal Chest: Negative for other Resp normal respiratory effort and clear to auscultation bilaterally Effort and Inspection: Negative for retractions Auscultation: Negative for rales, rhonchi or wheezes Cardio regular rate, regular rhythm, S1 normal heart sound, S2 normal heart sound and no murmurs Palpation: Negative for palpable S3 Rate: Negative for bradycardia Rhythm: Negative for abnormal rhythm GI normal to inspection, nondistended, normoactive bowel sounds, non-tender, non-distended and no masses Inspection: Negative for abdominal distention Auscultation: normoactive bowel sounds Palpation: soft; Negative for tender or guarding Back/Spine no CVA tenderness General Back: Negative for CVA tenderness Cervical Spine: Negative for cervical spine tenderness Thoracic Spine / Upper Back: Negative for thoracic spinal tenderness Extremity normal to inspection General Extremety ED: Negative for edema or tenderness General Extremity: Negative for edema Neuro oriented x3 and CN's II-XII intact bilaterally Sensorium / Orientation: alert; Negative for orientation impaired, lethargic or stuporous Motor Exam: strength 5/5 throughout Psych mental status grossly normal Appearance: unkempt Attitude: No agitated Mood & Affect: Negative for depressed, anxious or tearful Skin no rashes or lesions noted and no wounds General Skin Exam: elasticity normal; Negative for jaundice or pallor Lesions: No lesion noted Rashes: No rashes noted Trauma: Negative for abrasion Wounds: Negative for wounds noted MDM MDM MDM Narrative Medical decision making narrative: 36-year-old female presents uncapped covered in feces and urine. She has had this presentation multiple times. There are multiple issues being investigated in the home including children services and Adult Protective Services. Her examis benign. She will be evaluated again by psychiatric social worker seen her in the past. Screening labs are being obtained. She has had recent CAT scans of the brain that were unremarkable and labs that were unremarkable. Multiple repeat exams the last being at 11 PM. Patient resting comfortably. Our social workers evaluated her. She believes she can get her accepted to a mental health facility. There is really no reason to admit her medically. These are all social issues and possibly psychiatric issues. There may be a component of MRDD. That will all need to be worked out. She will remain in theemergency department overnight. Currently she is just resting comfortably in bed. She will be turned over to the overnight physician who really does not have to do anything for her at this time. And psychiatric social worker will reengage with this patient in the morning. Lab Data Attestation: I reviewed the patient's lab results. Lab results narrative: CBC shows a white count 6.8. H&H 14 and 46. Platelets 174. Electrolytes potassium low at 3.3. Gap is 13 normal BUN and creatinine. Glucose 96. COVID test negative. Tox screen is negative other than barbiturates. Labs: Laboratory Results - last 24 hr 04/14/22 04/14/22 04/14/22 18:25 18:25 22:30 WBC 6.8 RBC 4.58 Hgb 14.6 Hct 46.4 MCV 101.3 H MCH 31.9 MCHC 31.5 L RDW Std Deviation 48.3 H RDW Coeff of [place] 13.0 Plt Count 174 MPV 12.2 H Immature Gran % (Auto) 0.300 Neut % (Auto) 69.6 Lymph % (Auto) 16.5 L [place] % (Auto) 10.6 H Eos % (Auto) 2.6 Baso % (Auto) 0.4 Absolute Neuts (auto) 4.7 Absolute Lymphs (auto) 1.12 Nucleated RBC % 0 Sodium 144 Potassium 3.3 L Chloride 108 H Carbon Dioxide 23.0 Anion Gap 13 BUN 14 Creatinine 0.73 Estim Creat Clear Calc 102.61 Est GFR (MDRD) Af Amer 115 Est GFR (MDRD) Non-Af 95 BUN/Creatinine Ratio 19.3 Glucose 96 Calcium 9.4 Urine Opiates Screen NEGATIVE Urine Methadone Screen NEGATIVE Ur Barbiturates Screen POSITIVE H Ur Phencyclidine Scrn NEGATIVE Ur Amphetamines Screen NEGATIVE MDMA (Ecstasy) Screen NEGATIVE U Benzodiazepines Scrn NEGATIVE Urine Cocaine Screen NEGATIVE U Cannabinoids Screen NEGATIVE Ur Drug Screen Comment Discharge Plan Triage Chief Complaint: Weakness ED Provider: Padilla Huerta Dx/Rx/DC Orders Clinical Impression: Adult failure to thrive, Psychiatric illness, Cognitive dysfunction Prescriptions: No Action ferrous sulfate 325 MG tablet 325 mg PO DAILY@0800 gabapentin 300 MG capsule 300 mg PO BID Qty: 60 0RF levetiracetam 1,000 MG tablet 1,000 mg PO BID Qty: 60 0RF amlodipine 5 mg tablet 10 mg PO DAILY phenobarbital 64.8 mg tablet 64.8 mg PO BID Label Comments: TAKE ONE (1) TABLET BY MOUTH TWICE DAILY sennosides-docusate sodium [Stool Softener-Stimulant Laxat] 8.6-50 mg Tablet 2 tab PO BID PRN PRN (Reason: Constipation) Qty: 0 0RF menthol-zinc oxide [Calmoseptine] 0.44-20.6 % Ointment 1 applic topical TID Qty: 0 0RF Protocol: *Topical Application Instructions APPLICATION INSTRUCTIONS: buttocks cyanocobalamin (vitamin B-12) 500 mcg Tablet 1,000 mcg PO BREAKFAST Qty: 0 0RF acetaminophen [Tylenol] 325 mg Tablet 650 mg PO Q6H PRN PRN (Reason: Pain 1-10 Or Fever>100.7) Qty: 0 0RF ferrous sulfate [FeroSul] 325 mg (65 mg iron) tablet sucralfate 1 gram tablet 1 g PO 0700,1100,1600 sulfamethoxazole-trimethoprim 800-160 mg tablet 1 tab PO BID pantoprazole [Protonix] 40 mg tablet,delayed release (DR/EC) 40 mg PO DAILY folic acid 1 mg tablet 1 mg PO BREAKFAST topiramate 100 MG tablet 100 mg PO BID Primary Care Provider: Himanshu Sanchez Referrals: Himanshu Sanchez MD [Primary Care Provider] - What to do if you have Problems For any increased pain, shortness of breath, bleeding, nausea or vomiting, chestpain, or any unexpected problems, contact your Primary Care Provider. Call [facility] ([phone]) or report to the closest Emergency Room. Call 911 if necessary. 04/14/222307 <Electronically signed by Padilla Huerta MD> Cosigner Signature (if applicable): CC: Dr. Himanshu Sanchez MD ~ Signed [facility] Work Phone: [phone] 540-576502-12-[address] Brown [facility] April 10, 2022 3:25pm Note Date/Time April 10, 2022 1:28pm [facility] Medical Records Department [address] [place] [id number] Emergency Department Summary 04/10/22 MR#: [id number] Acct: [id number] Name: MARY CLAUDIO Rep #:[id number] : 1985 36 From: Jose Wood PCP: Dr. Himanshu Sanchez MD Status :REG ER Location: ED HPI History of Present Illness Chief Complaint: General Illness Informant: patient and EMS Narrative Narrative: Brought in by EMS from home reported waking off the couch with generalized paresthesias. No weakness. Reports this is happened in the past however she isunclear exactly when things a week ago. Records noted she was just discharged yesterday to day stay for similar noting potassium 2.6 which was improved prior to discharge. Patient was able to get off the cot from EMS going into triage andwalking through triage. Patient states she lives with her spouse has 4 kids of her records note there is another significant other that lives at the home of her spouses.Patient denies any headache. Denies any family history of MS.Deniesrecent vomiting or diarrhea. Prior similar symptoms: Yes [facility] Medical History Cognitive dysfunction Debility HTN (hypertension) Hypokalemia Morbid obesity Paresthesias Seizure disorder Urinary tract infection UTI (urinary tract infection) Home Medications ferrous sulfate 325 mg (65 mg iron) tablet 325 mg PO DAILY@0800 supplement 03/17/20 [History Last Taken 03/02/22] gabapentin 300 mg capsule 300 mg PO BID neuropathy #60 caps 04/06/20 [Rx Last Taken 03/02/22] levetiracetam 1,000 mg tablet 1,000 mg PO BID seizures #60 tabs 04/06/20 [Rx Last Taken 03/02/22] amlodipine 5 mg tablet 5 mg PO DAILY BP 09/16/21 [History Last Taken 03/02/22] phenobarbital 64.8 mg tablet 64.8 mg PO BID SEIZURES 03/02/22 [History Last Taken 03/02/22] acetaminophen 325 mg tablet (Tylenol) 650 mg PO Q6H PRN PRN Pain 1-10 Or Fever>100.7 #0 tabs 03/09/22 [Rx Last Taken Unknown] cyanocobalamin (vitamin B-12) 500 mcg tablet 1,000 mcg PO BREAKFAST #0 tabs 03/09/22 [Rx Last Taken Unknown] menthol 0.44 %-zinc oxide 20.6 % topical ointment (Calmoseptine) 1 applic topical TID #0 grams 03/09/22 [Rx Last Taken Unknown] sennosides 8.6 mg-docusate sodium 50 mg tablet (Stool Softener-Stimulant Laxative) 2 tab PO BID PRN PRN Constipation #0 tabs 03/09/22 [Rx Last Taken Unknown] ferrous sulfate 325 mg (65 mg iron) tablet (FeroSul) mg 04/07/22 [History Last Taken Unknown] folic acid 1 mg tablet 1 mg PO BREAKFAST supplement 04/07/22 [History Last Taken Unknown] pantoprazole 40 mg tablet,delayed release (Protonix) 40 mg PO DAILY GI 04/07/22 [History Last Taken Unknown] sucralfate 1 gram tablet 1 g PO 0700,1100,1600 GI 04/07/22 [History Last Taken Unknown] sulfamethoxazole 800 mg-trimethoprim 160 mg tablet 1 tab PO BID antibiotic 04/07/22 [History Last Taken Unknown] topiramate 100 mg tablet 100 mg PO BID seizures 04/07/22 [History Last Taken Unknown] Allergy/AdvReac Type Severity Reaction Status Date / Time fluconazole Allergy NEEDS Verified 04/10/22 13:05 FOLLOW-UP naproxen Allergy Hives Verified 04/10/22 13:05 Family History Other Leukemia Social History household members: significant other, family and children housing: house Smoking Status: Former smoker alcohol intake: never substance use type: does not use ROS ROS ED Constitutional Constitutional ED: Denies chills, fever(s) or sweats Eyes Eyes: Denies change in vision ENT ENT ED: Denies dysphagia or sore throat Cardiovascular Cardiovascular: Denies chest pain, leg edema, palpitations or racing heartbeat Respiratory/Chest Respiratory/Chest: Denies cough, dyspnea or dyspnea on exertion Gastrointestinal Gastrointestinal: Denies abdominal pain, diarrhea, nausea or vomiting Genitourinary Genitourinary ED: Denies dysuria, hematuria or urinary frequency Musculoskeletal Musculoskeletal: Denies back pain, extremity pain or neck pain Integumentary Denies rash or wounds Neurologic Neurologic: Reports paresthesias; Denies headache(s) or weakness EXAM Physical Exam Const Vital Signs: 04/10/22 13:02 04/10/22 13:12 Temperature 97.8 F Temperature Source Temporal Pulse Rate 99 Respiratory Rate 16 Respiratory Pattern Normal Blood Pressure 148/108 H Blood Pressure Mean 121 Pulse Ox 100 Oxygen Delivery Method Room Air Positive well nourished and well developed General Appearance ED: well developed and NAD HEENT Reports moist mucous membranes normocephalic and atraumatic Eyes PERRL, EOMs intact bilaterally and conjunctivae normal General Eye ED: Yes normal appearance of both eyes Neck no lymphadenopathy and supple General: Negative for tenderness Chest Wall Chest: Negative for tenderness Resp normal respiratory effort and normal air movement Effort and Inspection: symmetric chest movement; Negative for respiratory distress Cardio regular rate, regular rhythm and no murmurs Peripheral Pulses: pulses 2+ throughout GI normal to inspection, nondistended, normoactive bowel sounds and non-tender Palpation: Negative for guarding or rebound tenderness present Back/Spine no CVA tenderness and no thoracic nor lumbar tenderness Extremity normal to inspection General Extremety ED: Negative for edema or tenderness General Extremity: Negative for edema Neuro oriented x3, CN's II-XII intact bilaterally and no sensory deficits noted Neuro Narrative: Withdrawing all 4 extremities from pinching. No objective paresthesias. Sensorium / Orientation: awake and alert Skin no rashes or lesions noted and no wounds MDM MDM MDM Narrative Medical decision making narrative: Interventions / MDM: Differential diagnosis:Nonspecific paresthesias, metabolic abnormalities, psychosomatic disorder Diagnosis considered but do not suspect: N/A My EKG interpretation: N/A Imaging independently reviewed and interpreted by myself: N/A External documents reviewed: N/A Test considered but not ordered:N/A ED course: Patient reporting paresthesias all over however sensation intact withdrawing to pain. Review of records she had recent metabolic issues with potassium 2.6. I recheck labs, potassium hemolyzed at 5.4 she has a creatinine 0.6. Therefore this is not going to be low. Hemoglobin 14. She ambulated off the cot into the room. There is no weakness. Discussed results with the patient. Reviewing records from hospitalist last 2 days, there was thought of referring her to neurology if symptoms recur. She denies family history of multiple sclerosis. This can be further work-up as an outpatient as there is noweakness or paresthesia at this time. Also concerns possible somatization due to her home situation. From records noted there was another significant other living at her home of her . When I discussed with her plan discharge she became tearful stating she did not want to come home due to her ignoringher. There are 4 kids. She denies suicidal homicidal ideations. Discussed this is a social issue not a medical issue. Reviewing of case management notes noted she is given follow-up with [facility] services. Review of physical therapy and Occupational Therapy notes she was initially hesitant to do therapy however when encouraged was able to do this. Therefore there is no reason for hospitalization at this time. She will be discharged with outpatient follow-up with her PCP and given neurology for follow-up. Re-evaluation: stable Disposition discussed with patient/family/significant other: Patient Case discussed with consulting clinician: N/A Lab Data Attestation: I reviewed the patient's lab results. Labs: Laboratory Results - last 24 hr 04/10/22 04/10/22 14:25 14:25 WBC 6.7 RBC 4.41 Hgb 14.0 Hct 44.6 MCV 101.1 H MCH 31.7 MCHC 31.4 L RDW Std Deviation 49.6 H RDW Coeff of [place] 13.2 Plt Count 135 L MPV 12.0 Immature Gran % (Auto) 0.300 Neut % (Auto) 70.4 H Lymph % (Auto) 17.9 L [place] % (Auto) 8.6 Eos % (Auto) 2.6 Baso % (Auto) 0.2 Absolute Neuts (auto) 4.7 Absolute Lymphs (auto) 1.19 Nucleated RBC % 0 Sodium 138 Potassium 5.4 H Chloride 109 H Carbon Dioxide 23.0 Anion Gap 6 BUN 4 L Creatinine 0.60 Estim Creat Clear Calc 124.84 Est GFR (MDRD) Af Amer 143 Est GFR (MDRD) Non-Af 118 BUN/Creatinine Ratio 6.6 L Glucose 95 Calcium 8.8 Magnesium 1.6 Discharge Plan Triage Chief Complaint: General Illness ED Provider: Jose Brown Dx/Rx/DC Orders Clinical Impression: Paresthesia, Hx of seizure disorder, Somatization disorder Instructions: ED Paraesthesias Prescriptions: No Action ferrous sulfate 325 MG tablet 325 mg PO DAILY@0800 gabapentin 300 MG capsule 300 mg PO BID Qty: 60 0RF levetiracetam 1,000 MG tablet 1,000 mg PO BID Qty: 60 0RF amlodipine 5 mg tablet 5 mg PO DAILY phenobarbital 64.8 mg tablet 64.8 mg PO BID Label Comments: TAKE ONE (1) TABLET BY MOUTH TWICE DAILY sennosides-docusate sodium [Stool Softener-Stimulant Laxat] 8.6-50 mg Tablet 2 tab PO BID PRN PRN (Reason: Constipation) Qty: 0 0RF menthol-zinc oxide [Calmoseptine] 0.44-20.6 % Ointment 1 applic topical TID Qty: 0 0RF Protocol: *Topical Application Instructions APPLICATION INSTRUCTIONS: buttocks cyanocobalamin (vitamin B-12) 500 mcg Tablet 1,000 mcg PO BREAKFAST Qty: 0 0RF acetaminophen [Tylenol] 325 mg Tablet 650 mg PO Q6H PRN PRN (Reason: Pain 1-10 Or Fever>100.7) Qty: 0 0RF ferrous sulfate [FeroSul] 325 mg (65 mg iron) tablet sucralfate 1 gram tablet 1 g PO 0700,1100,1600 sulfamethoxazole-trimethoprim 800-160 mg tablet 1 tab PO BID pantoprazole [Protonix] 40 mg tablet,delayed release (DR/EC) 40 mg PO DAILY folic acid 1 mg tablet 1 mg PO BREAKFAST topiramate 100 MG tablet 100 mg PO BID Primary Care Provider: Himanshu Sanchez Referrals: Greyson Hanks MD [Non-Staff -Ordering Privileges] - 1-2 Weeks Himanshu Sanchez MD [Primary Care Provider] - 2 Days Activity Restrictions/Additional Instructions: Your electrolytes are normal today. Follow-up with neurology for your nonspecific paresthesias. Follow-up with your doctor for reevaluation. Disposition Disposition: Home, Self Care What to do if you have Problems For any increased pain, shortness of breath, bleeding, nausea or vomiting, chestpain, or any unexpected problems, contact your Primary Care Provider. Call [facility] ([phone]) or report to the closest Emergency Room. Call 911 if necessary. 04/10/22 1525 <Electronically signed by Jose Wood> Cosigner Signature (if applicable): CC: Dr. Himanshu Sanchez MD ~ Signed [facility] Work Phone: [phone]) 270-663402-11-[address] Coates [facility] April 09, 2022 11:33am Note Date/Time April 09, 2022 11:17am [facility] Medical Records Department [address] [place] [address] Instructions for Home/Discharge Instructions 04/09/22 1116 MR#: [id number] Acct: [id number] Name: MARY CLAUDIO Rep #:[id number] : 1985 36 From: Gali Coates DO PCP: Dr. Himanshu Sanchez MD Status :ADM RORY Discharge Instructions Diet Discharge Diet: No restrictions Activity Discharge Activity: Return to Normal Activity Weight Bearing Status: Full weight bearing Follow Up Care Test Results: Test results from this visit will be discussed in further detail at your follow- up appointment, if applicable. Discharge Plan Admission Admit Date/Time: 04/07/22 00:51 Primary Reason for Your Visit: low potassium Attending Provider: Gali Coates Primary Care Provider: Himanshu Sanchez Consulting Providers: Steven Mullen ; Awa Massey Discharge Orders/Prescriptions Prescriptions: Continued ferrous sulfate 325 MG tablet 325 mg PO DAILY@0800 gabapentin 300 MG capsule 300 mg PO BID Qty: 60 0RF levetiracetam 1,000 MG tablet 1,000 mg PO BID Qty: 60 0RF amlodipine 5 mg tablet 5 mg PO DAILY phenobarbital 64.8 mg tablet 64.8 mg PO BID Label Comments: TAKE ONE (1) TABLET BY MOUTH TWICE DAILY sennosides-docusate sodium [Stool Softener-Stimulant Laxat] 8.6-50 mg Tablet 2 tab PO BID PRN PRN (Reason: Constipation) Qty: 0 0RF menthol-zinc oxide [Calmoseptine] 0.44-20.6 % Ointment 1 applic topical TID Qty: 0 0RF Protocol: *Topical Application Instructions APPLICATION INSTRUCTIONS: buttocks cyanocobalamin (vitamin B-12) 500 mcg Tablet 1,000 mcg PO BREAKFAST Qty: 0 0RF acetaminophen [Tylenol] 325 mg Tablet 650 mg PO Q6H PRN PRN (Reason: Pain 1-10 Or Fever>100.7) Qty: 0 0RF ferrous sulfate [FeroSul] 325 mg (65 mg iron) tablet sucralfate 1 gram tablet 1 g PO 0700,1100,1600 sulfamethoxazole-trimethoprim 800-160 mg tablet 1 tab PO BID pantoprazole [Protonix] 40 mg tablet,delayed release (DR/EC) 40 mg PO DAILY folic acid 1 mg tablet 1 mg PO BREAKFAST topiramate 100 MG tablet 100 mg PO BID Discontinued prednisone 5 mg tablet prednisone 5 mg tablet 5 mg PO UD Rx Instructions: 40 mg p.o. daily x1 week then 35 mg p.o. daily x1 week then 30 mg p.o. daily x1 week then 30 mg p.o. daily x1 week then 25 mg p.o. daily x1 week then 20 mg p.o. daily x1 week then 15 mg p.o. daily x1 week then 10 mg p.o. daily x1 week then 5 mg daily Referrals / Follow Up: Himanshu Sanchez MD [Primary Care Provider] - Within 1 Week Disposition Disposition (needs filled in before D/C Order can be placed): Home, Self Care 04/09/22 1133<Electronically signed by Gali Coates DO>Gali Coates DO CC: Dr. Himanshu Sanchez MD; Dr. Steven Mullen MD; Dr. Awa Massey DO ~ Signed [facility] Work Phone: [phone]) 394-652802-10-[address] Massey [facility] April 08, 2022 3:14pm Note Date/Time April 08, 2022 3:14pm [facility] Medical Records Department [address] [place] [address] Progress Note - Hospitalist 04/08/22 1503 MR#: [id number] Acct: [id number] Name: MARY CLAUDIO Rep #:[id number] : 1985 36 From: Awa Massey DO PCP: Dr. Himanshu Sanchez MD Status :ADM RORY Location: [place] [address] Reason for Visit Reason for Visit: Diagnoses Hypokalemia Debility Subjective Subjective Patient denies any foot pain today. She states that she ordered her breakfast and now does not want a bagel and eggs and wants to change her order. Asks me if I will help her with this. Later in the day was reevaluated by physical therapy and has ongoing needs however placement is not required. Discussed withcase mortgage operations manager/social worker health services and she will likely need home health however we are unable to get this set up over the weekend. She will likely be here till Monday. Objective Data Objective Data Vital Signs: Vital Signs Temp Pulse Resp BP Pulse Ox O2 Del Method 98.1 F 101 H 16 143/97 H 99 Room Air 04/08/22 14:14 04/08/22 14:14 04/08/22 14:14 04/08/22 14:14 04/08/22 14:14 04/08/22 14:14 Oxygen Delivery Method Room Air Weight: 79.5 kg Body Mass Index (BMI) 27.4 Intake & Output: Intake and Output for Last 24 Hours 04/06/22 04/07/22 04/08/22 23:59 23:59 23:59 Intake Total 4367.5 / 4367.5 240 / 240 Balance 4367.5 / 4367.5 240 / 240 Lab / Micro Data Result Diagrams: 04/06/22 23:40 04/08/22 09:24 Labs: Laboratory Results - last 24 hr 04/08/22 09:24: Sodium 139, Potassium 4.4, Chloride 111 H, Carbon Dioxide 22.0, Anion Gap 6, BUN 4 L, Creatinine 0.58, Estim Creat Clear Calc 129.14, Est GFR (MDRD) Af Amer 151, Est GFR (MDRD) Non-Af 125, BUN/Creatinine Ratio 6.9 L, Glucose 80, Calcium 8.7 Physical Exam Const alert, oriented x3, no apparent distress and well nourished Constitutional Narrative: Overweight, middle-aged, white female, sitting up in bed, patient seems to have cognitive impairment at baseline HEENT head/scalp atraumatic and moist oral mucous membranes HEENT Narrative: Dentition is good, Mallampati is 3, no thrush Head and Scalp: normocephalic Resp normal respiratory effort, no retractions, no use of accessory muscles and clearto auscultation bilaterally Auscultation: crackles, rhonchi and wheezes Cardio regular rate, regular rhythm, S1 normal heart sound, S2 normal heart sound, no murmurs, no rub, no gallops and no clicks GI normal to inspection, nondistended, normoactive bowel sounds, soft to palpation and non-tender Extremity no clubbing, cyanosis or edema Extremity Narrative: 2+ pedal pulses, no tenderness by palpation to bilateral feet today Skin Skin Narrative: Bottom is excoriated Neuro oriented x3, CN's II-XII intact bilaterally, moves all extremities, no focal motor deficits and no sensory deficits noted Speech: speech normal Psych Psych Narrative: Extremely flat, somewhat childlike Assessment & Plan Assessment/Plan (1) Numbness and tingling: (2) Generalized weakness: (3) Urinary tract infection: (4) Hypokalemia: PLAN: Plan Paresthesias/generalized weakness -paresthesias have all resolved -CT done on admission was unremarkable -Patient with multiple, intermittent somatic complaints that are hard to follow -Continue PT/OT -Sitter further outpatient work-up with neurology after discharge if persistent -Patient does have documented history of bilateral neuropathy Bilateral foot pain -X-rays were unremarkable for any bony tissue abnormalities -Resolved today and patient had no pain with firm palpation of bilateral feet inany direction Hypokalemia -Resolved Urinary incontinence -Seems to be voluntary -Patient does not notify nursing and sits in urine without telling anybody -Seems to be psychologically mediated Urinary tract infection--> 2 different species of E. coli -Was on Bactrim however UA still appears to be infected -Organism was sensitive to Bactrim however the DANIEL was high -We will change to Keflex for 3 days--> day 2 of 3 -Both species are sensitive to the same organisms Hypertension -Continue home amlodipine Seizure disorder -Continue home Keppra -Continue home phenobarbital -Continue home Topamax Neuropathy -Continue home gabapentin GERD -continue home PPI by -Continue home Carafate DVT prophylaxis -Continue enoxaparin 40 mg daily CODE STATUS Full code Disposition: Patient not appropriate for senior living facility however she is unable to gohome without any assistance. Will at least need home health and we are have been unable to find anything thus far therefore she will need to stay until we can arrange for this as unless her clinical situation improves dramatically. Suspect large psychological component in conjunction with baseline cognitive debility. Charges/Coding Visit Charges Inpatient E&M: 21548 Subs Hosp L2 04/08/22 1514 <Electronically signed by Awa Massey DO> Cosigner Signature (if applicable): CC: ~ Signed [facility] Work Phone: 1(145) 770-489102-09-[address] Massey [facility] April 07, 2022 12:59pm Note Date/Time April 07, 2022 1 2:59pm [facility] Medical Records Department [address] [place] [address] Progress Note - Hospitalist 04/07/22 1253 MR#: [id number] Acct: [id number] Name: MARY CLAUDIO Rep #:[id number] : 1985 36 From: Awa Massey DO PCP: Dr. Himanshu Sanchez MD Status :ADM RORY Location: [place] [address] Hospitalist Note This is a 36-year-old white female who presented to the emergency department with tingling and numbness all over her body. She has cognitive deficits at baseline and multiple emergency department visits for various complaints. She was recently at [facility] however the dates are unclear at this time. She had associated symptoms on presentation of reported vertigo and lightheadedness and indicated that the symptoms started on the day of presentation. She was diagnosed here with a urinary tract infection and is on antibiotics with Bactrim however she was unclear how much she has left. I did review the culture and sensitivities and the DANIEL was slightly high for Bactrim so I will go ahead and treat her for the full course of Keflex as the DANIEL was better for this because her UA still was suggestive of infection. She was foundto be markedly hypokalemic on presentation with a potassium of 2.6. She was aggressively replaced with potassium and on the a.m. of 04/07/2022 her potassium was normalized. On evaluation she was complaining of bilateral foot pain. There is no erythema or swelling. There was some tenderness to palpation but was nonfocal and nonspecific. She states she also had complained of pain in herhand that did not start until she was told her potassium was low. Her hand alsoappears unremarkable on exam. We did order x-rays and those are currently pending. She did indicate to case management and social worker health services that she did notfeel safe in her home. When they asked more specifics with regards of her not feeling safe she reported that her does call her stupid at home but she reported that she does not feel safe because she is alone during the day as her children go to school and her goes to work. The patient indicated she felt she needed to go to a fci and was okay with going to [facility], [place] and a referral was sent. 04/07/22 3780 <Electronically signed by Awa Massey DO> Cosigner Signature (if applicable): CC: ~ Signed [facility] Work Phone: 1(606) 189-718402-09-[address] Shannon [facility] April 07, 2022 5:24am Note Date/Time April 06, 2022 1 1:27pm [facility] Medical Records Department [address] [place] [address] [place] [address] Emergency Department Summary 04/06/22 MR#: [id number] Acct: [id number] Name: MARY CLAUDIO Rep #:[id number] : 1985 36 From: Patricia Shannon MD PCP: Dr. Himanshu Sanchez MD Status :ADM RORY Location: [place] [address] HPI History of Present Illness Chief Complaint: Numb/Ting Informant: patient and EMS Narrative Narrative: Patient presents via EMS secondary to numbness. She states she was sitting watching television tonight when she feels like her whole body went numb. She states has been eating and drinking well lately. No recent changes to her medication. I did note that patient was seen here on 01 April and diagnosed with a UTI. She should currently be on Bactrim. She states has been taking themedication but does not know how much she has left. [facility] Medical History Cognitive dysfunction Debility HTN (hypertension) Morbid obesity Seizure disorder Home Medications ferrous sulfate 325 mg (65 mg iron) tablet 325 mg PO DAILY@0800 supplement 03/17/20 [History Last Taken 03/02/22] gabapentin 300 mg capsule 300 mg PO BID neuropathy #60 caps 04/06/20 [Rx Last Taken 03/02/22] levetiracetam 1,000 mg tablet 1,000 mg PO BID seizures #60 tabs 04/06/20 [Rx Last Taken 03/02/22] topiramate 100 mg tablet 100 mg PO BID #60 tabs 04/06/20 [Rx Last Taken 03/02/22] amlodipine 5 mg tablet 5 mg PO DAILY BP 09/16/21 [History Last Taken 03/02/22] phenobarbital 64.8 mg tablet 64.8 mg PO BID SEIZURES 03/02/22 [History Last Taken 03/02/22] acetaminophen 325 mg tablet (Tylenol) 650 mg PO Q6H PRN PRN Pain 1-10 Or Fever>100.7 #0 tabs 03/09/22 [Rx Last Taken Unknown] cyanocobalamin (vitamin B-12) 500 mcg tablet 1,000 mcg PO BREAKFAST #0 tabs 03/09/22 [Rx Last Taken Unknown] folic acid 1 mg tablet 1 mg PO BREAKFAST #0 tabs 03/09/22 [Rx Last Taken Unknown] menthol 0.44 %-zinc oxide 20.6 % topical ointment (Calmoseptine) 1 applic topical TID #0 grams 03/09/22 [Rx Last Taken Unknown] pantoprazole 40 mg tablet,delayed release (Protonix) 40 mg PO DAILY #1 TAB 03/09/22 [Rx Last Taken Unknown] prednisone 5 mg tablet 5 mg PO UD #240 tabs 03/09/22 [Rx Last Taken Unknown] sennosides 8.6 mg-docusate sodium 50 mg tablet (Stool Softener-Stimulant Laxative) 2 tab PO BID PRN PRN Constipation #0 tabs 03/09/22 [Rx Last Taken Unknown] sucralfate 1 gram tablet 1 g PO 0700,1100,1600 #0 tabs 03/09/22 [Rx Last Taken Unknown] sulfamethoxazole 800 mg-trimethoprim 160 mg tablet 1 tab PO BID #6 TABLETS 04/02/22 [Rx Last Taken Unknown] Allergy/AdvReac Type Severity Reaction Status Date / Time fluconazole Allergy NEEDS Verified 04/06/22 23:11 FOLLOW-UP naproxen Allergy Hives Verified 04/06/22 23:11 Social History household members: significant other, family and children housing: house Smoking Status: Never smoker alcohol intake: never substance use type: does not use ROS ROS ED Constitutional Constitutional ED: Denies chills or fever(s) Eyes Eyes: Denies change in vision or discharge from eye(s) ENT ENT ED: Denies discharge from eye(s), rhinorrhea or sore throat Cardiovascular Cardiovascular: Denies chest pain or palpitations Respiratory/Chest Respiratory/Chest: Denies cough or dyspnea Gastrointestinal Gastrointestinal: Denies abdominal pain, diarrhea, nausea or vomiting Genitourinary Genitourinary ED: Denies difficulty urinating or dysuria Musculoskeletal Musculoskeletal: Denies back pain or extremity pain Integumentary Denies Abrasions or rash Neurologic Neurologic: Reports paresthesias; Denies headache(s) or weakness Psychiatric Psychiatric: Denies anxiety or depression Allergic/Immunologic Allergic/Immunologic ED: Denies lip swelling or urticaria EXAM Physical Exam Const Vital Signs: 04/06/22 23:11 Temperature 97.8 F Temperature Source Temporal Pulse Rate 106 H Respiratory Rate 16 Blood Pressure 147/96 H Blood Pressure Mean 113 Pulse Ox 99 Oxygen Delivery Method Room Air Positive well nourished and well developed General Appearance ED: well developed HEENT Reports normocephalic and head/scalp atraumatic Eyes PERRL and EOMs intact bilaterally Neck supple Chest Wall inspection of chest normal and palpation of chest normal Resp normal respiratory effort and clear to auscultation bilaterally Cardio regular rate and regular rhythm GI normal to inspection, nondistended, normoactive bowel sounds Palpation: soft Extremity normal to inspection Neuro oriented x3 Neuro Narrative: Mild right-sided weakness which is chronic per patient's report. Sensorium / Orientation: alert Psych mental status grossly normal Skin no rashes or lesions noted MDM MDM MDM Narrative Medical decision making narrative: Patient placed on palliative care nurse. EKG obtained to evaluate cardiac rhythm. CBC and chemistry studies obtained to evaluate for anemia or electrolyte disturbance. Urinalysis obtained given her recent UTI. Patient given IV fluids. Lab Data Attestation: I reviewed the patient's lab results. Labs: Laboratory Results - last 24 hr 04/06/22 04/06/22 04/07/22 23:40 23:40 00:00 WBC 7.4 RBC 3.99 L Hgb 13.0 Hct 40.4 MCV 101.3 H MCH 32.6 H MCHC 32.2 D RDW Std Deviation 50.3 H RDW Coeff of Enedina 13.3 Plt Count 187 MPV 12.0 Immature Gran % (Auto) 0.300 Neut % (Auto) 68.6 Lymph % (Auto) 17.6 L Shawnee % (Auto) 12.3 H Eos % (Auto) 0.8 Baso % (Auto) 0.4 Absolute Neuts (auto) 5.1 Absolute Lymphs (auto) 1.30 Nucleated RBC % 0 Sodium 140 Potassium 2.6 L* Chloride 107 Carbon Dioxide 23.0 Anion Gap 10 BUN 9 Creatinine 0.84 Estim Creat Clear Calc 89.17 Est GFR (MDRD) Af Amer 97 Est GFR (MDRD) Non-Af 80 BUN/Creatinine Ratio 10.7 Glucose 131 H Calcium 8.9 Total Bilirubin 0.70 Direct Bilirubin 0.23 AST 14 L ALT 23 Alkaline Phosphatase 55 Total Protein 6.6 Albumin 3.7 Globulin 2.9 Urine Color Yellow Urine Clarity Clear Urine pH 6.0 Ur Specific Swengel 1.010 Urine Protein 30 H Urine Glucose (UA) Normal Urine Ketones 5 H Urine Occult Blood 10 H Urine Nitrite Negative Urine Bilirubin Negative Urine Urobilinogen 8 H Ur Leukocyte Esterase 500 H Urine RBC 0-5 SEEN Urine WBC 25-50 SEEN Ur Squamous Epith Cells 0 SEEN Urine Bacteria 2+ Urine Mucus 2+ Radiography Diagnostic Testing: Clinical Impression(s) from Imaging Studies Brain CT 04/06/22 23:27 IMPRESSION: No acute intracranial findings. Electronically Signed: Aki Cortez MD at 0:12 EST , EKG Initial EKG: Attestation: I personally reviewed and interpreted this EKG as follows: Interpretation: Sinus Rhythm (Sinus at 91. Nonspecific mild diffuse ST depression, most notable in the lateral precordial leads.) Treatment and Re-Evaluation Narrative: CBC is unremarkable. Chemistry studies significant for potassium low at 2.6. It appears her potassium was in the low 3 range last week. LFTs are unremarkable. Urinalysis continues to show 500 leukocyte esterase, however her nitrites have cleared. She continues to have 25-50 white cells with 2+ bacteria. Patient has been ordered IV potassium replacement. Given her paresthesias and low potassium with weakness I will discuss with hospitalist regarding observation to get her potassium back to normal levels. Discharge Plan Dx/Rx/DC Orders Clinical Impression: Hypokalemia, Paresthesias, UTI (urinary tract infection) Disposition Disposition: Acute Care Hospital [facility] What to do if you have Problems For any increased pain, shortness of breath, bleeding, nausea or vomiting, chestpain, or any unexpected problems, contact your Primary Care Provider. Call [facility] ([phone]) or report to the closest Emergency Room. Call 911 if necessary. 04/07/22523 <Electronically signed by Patricia Shannon MD> Cosigner Signature (if applicable): CC: Dr. Himanshu Sanchez MD ~ Signed [facility] Work Phone: 1(267) 421-931102-09-2023 History and physical note Author Dr. Mullen [facility] April 07, 2022 1:30am Note Date/Time April 07, 2022 1 :00am [facility] Medical Records Department [address] [place] [address] H&P Exam - Hospitalist 04/07/22 0100 MR#: [id number] Acct: [id number] Name: MARY CLAUDIO Rep #:[id number] : 1985 36 From: Steven Mullen MD PCP: Dr. Himanshu Sanchez MD Status :ADM RORY Location: [address] HPI - General General Date of Admission: 04/07/22 Date of Service: 04/07/22 Chief Complaint: Numbness and tingling HPI Narrative MARY CLAUDIO, is a 36 F with significant history of seizures; right side weakness and cognitive deficits who presents to the emergency department with generalized numbness and tingling sensation. Associated with her symptoms as dizziness which she describes as both vertigo and lightheadedness. Her symptomsstarted on the same day of presentation. Also she reports weakness. Patient reports that at baseline and occasionally she gets dizzy and weak and her helps her to the bathroom. [facility] Medical History Cognitive dysfunction Debility HTN (hypertension) Morbid obesity Seizure disorder Home Medications ferrous sulfate 325 mg (65 mg iron) tablet 325 mg PO DAILY@0800 supplement 03/17/20 [History Last Taken 03/02/22] gabapentin 300 mg capsule 300 mg PO BID neuropathy #60 caps 04/06/20 [Rx Last Taken 03/02/22] levetiracetam 1,000 mg tablet 1,000 mg PO BID seizures #60 tabs 04/06/20 [Rx Last Taken 03/02/22] topiramate 100 mg tablet 100 mg PO BID #60 tabs 04/06/20 [Rx Last Taken 03/02/22] amlodipine 5 mg tablet 5 mg PO DAILY BP 09/16/21 [History Last Taken 03/02/22] phenobarbital 64.8 mg tablet 64.8 mg PO BID SEIZURES 03/02/22 [History Last Taken 03/02/22] acetaminophen 325 mg tablet (Tylenol) 650 mg PO Q6H PRN PRN Pain 1-10 Or Fever>100.7 #0 tabs 03/09/22 [Rx Last Taken Unknown] cyanocobalamin (vitamin B-12) 500 mcg tablet 1,000 mcg PO BREAKFAST #0 tabs 03/09/22 [Rx Last Taken Unknown] folic acid 1 mg tablet 1 mg PO BREAKFAST #0 tabs 03/09/22 [Rx Last Taken Unknown] menthol 0.44 %-zinc oxide 20.6 % topical ointment (Calmoseptine) 1 applic topical TID #0 grams 03/09/22 [Rx Last Taken Unknown] pantoprazole 40 mg tablet,delayed release (Protonix) 40 mg PO DAILY #1 TAB 03/09/22 [Rx Last Taken Unknown] prednisone 5 mg tablet 5 mg PO UD #240 tabs 03/09/22 [Rx Last Taken Unknown] sennosides 8.6 mg-docusate sodium 50 mg tablet (Stool Softener-Stimulant Laxative) 2 tab PO BID PRN PRN Constipation #0 tabs 03/09/22 [Rx Last Taken Unknown] sucralfate 1 gram tablet 1 g PO 0700,1100,1600 #0 tabs 03/09/22 [Rx Last Taken Unknown] sulfamethoxazole 800 mg-trimethoprim 160 mg tablet 1 tab PO BID #6 TABLETS 04/02/22 [Rx Last Taken Unknown] Allergy/AdvReac Type Severity Reaction Status Date / Time fluconazole Allergy NEEDS Verified 04/06/22 23:11 FOLLOW-UP naproxen Allergy Hives Verified 04/06/22 23:11 Family History (Updated 04/07/22 @ 01:[address] Steven Mullen MD) Other Leukemia no surgical history Social History household members: significant other, family and children housing: house Smoking Status: Never smoker alcohol intake: never substance use type: does not use ROS ROS Narrative Pertinent positives and pertinent negatives as noted in HPI. All other systems were reviewed and are negative Vital Signs Vital Signs Vital Signs: 04/06/22 23:11 Temperature 97.8 F Temperature Source Temporal Pulse Rate 106 H Respiratory Rate 16 Blood Pressure 147/96 H Blood Pressure Mean 113 Pulse Ox 99 Oxygen Delivery Method Room Air Weight Weight: 84.6 kg Body Mass Index (BMI) 29.2 Physical Exam Narrative Physical exam: General: Well-nourished, well-developed. Head: Normocephalic, atraumatic, no tenderness Eyes: Vision is grossly intact. EOMI ENT, no trauma, moist mucous membranes, no rhinorrhea Neck: Nontender, No thyromegaly. CVS: Regular rate and rhythm. S1-S2 present. No murmur, gallop or rub. Respiratory : clear to auscultation bilaterally, chest wall nontender, no wheezing Abdomen: Soft, nontender, nondistended, normal bowel sounds, no masses : Deferred Back: Nontender, no CVA tenderness, no midline spinal tenderness, deformities, step-offs Extremities: Nontender full range of motion, no trauma Skin: Normal color, no trauma, abrasions Neuro: Alert, oriented, cranial nerves II through XII grossly intact. Strength in right upper and right lower extremity 4 out of 5. Strength in left upper andleft lower extremity 5 out of 5. Psychiatry: Normal mood. Normal affect. Not depressed. Not anxious. Results Lab / Micro Data Result Diagrams: 04/06/22 23:40 04/06/22 23:40 Labs: Laboratory Results - last 24 hr 04/06/22 23:40: WBC 7.4, RBC 3.99 L, Hgb 13.0, Hct 40.4, MCV 101.3 H, MCH 32.6 H, MCHC 32.2 D, RDW Std Deviation 50.3 H, RDW Coeff of Enedina 13.3, Plt Count 187, MPV 12.0, Immature Gran % (Auto) 0.300, Neut % (Auto) 68.6, Lymph % (Auto) 17.6 L, Shawnee % (Auto) 12.3 H, Eos % (Auto) 0.8, Baso % (Auto) 0.4, Absolute Neuts (auto) 5.1, Absolute Lymphs (auto) 1.30, Nucleated RBC % 0 04/06/22 23:40: Sodium 140, Potassium 2.6 L*, Chloride 107, Carbon Dioxide 23.0,Anion Gap 10, BUN 9, Creatinine 0.84, Estim Creat Clear Calc 89.17, Est GFR (MDRD) Af Amer 97, Est GFR (MDRD) Non-Af 80, BUN/Creatinine Ratio 10.7, Glucose 131 H, Calcium 8.9, Total Bilirubin 0.70, Direct Bilirubin 0.23, AST 14 L, ALT 23, Alkaline Phosphatase 55, Total Protein 6.6, Albumin 3.7, Globulin 2.9 04/07/22 00:00: Urine Color Yellow, Urine Clarity Clear, Urine pH 6.0, Ur Specific Swengel 1.010, Urine Protein 30 H, Urine Glucose (UA) Normal, Urine Ketones 5 H, Urine Occult Blood 10 H, Urine Nitrite Negative, Urine Bilirubin Negative, Urine Urobilinogen 8 H, Ur Leukocyte Esterase 500 H, Urine RBC 0-5 SEEN, Urine WBC 25- 50 SEEN, Ur Squamous Epith Cells 0 SEEN, Urine Bacteria 2+, Urine Mucus 2+ Radiology Impression Brain CT 04/06/22 23:27 IMPRESSION: No acute intracranial findings. Electronically Signed: Aki Cortez MD at 0:12 EST , Assessment & Plan Assessment/Plan (1) Hypokalemia: (2) Urinary tract infection: (3) Generalized weakness: (4) Numbness and tingling: PLAN: Plan Hypokalemia/numbness and tingling/dizziness Potassium on presentation was 2.6. Trend BMP. EKG showed Q waves in inferior waves; Sinus rhythm. CT brain was visualized and independent interpreted. I agree with the interpretation of no acute intracranial pathology. Observe patient in progressive care unit. Potassium replacements by p.o. and IV. Generalized weakness/ PT and OT to evaluate and treat UTI Home Bactrim continued. DVT prophylaxis Subcutaneous Lovenox ordered. Charges/Coding Visit Charges Inpatient E&M: 17767 Init Hosp L2 04/07/22 0130 <Electronically signed by Steven Mullen MD> Cosigner Signature (if applicable): CC: Dr. Himanshu Sanchez MD; Dr. Steven Mullen MD~ Signed [facility] Work Phone: 1(881) 392-155602-04-[address] Galvez [facility] April 02, 2022 12:55am Note Date/Time April 01, 2022 9 :57pm [facility] Medical Records Department [address] [place] [id number] Emergency Department Summary 04/01/22 MR#: [id number] Acct: [id number] Name: MARY CLAUDIO Rep #:[id number] : 1985 36 From: Kiel Beltre PCP: Dr. Himanshu Sanchez MD Status :REG ER Location: ED HPI History of Present Illness Chief Complaint: Dizziness Informant: patient Onset/Context/Timing Onset: Today Context: Sudden Onset Timing: Continuous Quality: Diplopia Location: Head Worsened by: Nothing Relieved by: Nothing Narrative Narrative: Presents with dizziness that began today. Patient states she woke up and was feeling dizzy. Patient describes her dizziness as double vision. Patient denies any spinning sensation. Patient denies any blurry vision. Patient states it has been constant all day today. Patient states she fell off the couch earlier today and hit the upper part of her back and the back of her head. Patient denies any loss of consciousness. Patient denies any fevers or chills. Patient denies any nausea or vomiting. Patient denies any hearing loss or tinnitus. [facility] Medical History Cognitive dysfunction Debility HTN (hypertension) Morbid obesity Seizure disorder Home Medications ferrous sulfate 325 mg (65 mg iron) tablet 325 mg PO DAILY@0800 supplement 03/17/20 [History Last Taken 03/02/22] gabapentin 300 mg capsule 300 mg PO BID neuropathy #60 caps 04/06/20 [Rx Last Taken 03/02/22] levetiracetam 1,000 mg tablet 1,000 mg PO BID seizures #60 tabs 04/06/20 [Rx Last Taken 03/02/22] topiramate 100 mg tablet 100 mg PO BID #60 tabs 04/06/20 [Rx Last Taken 03/02/22] amlodipine 5 mg tablet 5 mg PO DAILY BP 09/16/21 [History Last Taken 03/02/22] phenobarbital 64.8 mg tablet 64.8 mg PO BID SEIZURES 03/02/22 [History Last Taken 03/02/22] acetaminophen 325 mg tablet (Tylenol) 650 mg PO Q6H PRN PRN Pain 1-10 Or Fever>100.7 #0 tabs 03/09/22 [Rx Last Taken Unknown] cyanocobalamin (vitamin B-12) 500 mcg tablet 1,000 mcg PO BREAKFAST #0 tabs 03/09/22 [Rx Last Taken Unknown] folic acid 1 mg tablet 1 mg PO BREAKFAST #0 tabs 03/09/22 [Rx Last Taken Unknown] menthol 0.44 %-zinc oxide 20.6 % topical ointment (Calmoseptine) 1 applic topical TID #0 grams 03/09/22 [Rx Last Taken Unknown] pantoprazole 40 mg tablet,delayed release (Protonix) 40 mg PO DAILY #1 TAB 03/09/22 [Rx Last Taken Unknown] prednisone 5 mg tablet 5 mg PO UD #240 tabs 03/09/22 [Rx Last Taken Unknown] sennosides 8.6 mg-docusate sodium 50 mg tablet (Stool Softener-Stimulant Laxative) 2 tab PO BID PRN PRN Constipation #0 tabs 03/09/22 [Rx Last Taken Unknown] sucralfate 1 gram tablet 1 g PO 0700,1100,1600 #0 tabs 03/09/22 [Rx Last Taken Unknown] sulfamethoxazole 800 mg-trimethoprim 160 mg tablet 1 tab PO BID #6 TABLETS 04/02/22 [Rx Last Taken Unknown] Allergy/AdvReac Type Severity Reaction Status Date / Time fluconazole Allergy NEEDS Verified 04/01/22 18:41 FOLLOW-UP naproxen Allergy Hives Verified 04/01/22 18:41 Social History household members: significant other, family and children housing: house Smoking Status: Never smoker alcohol intake: never substance use type: does not use ROS ROS ED Constitutional Constitutional ED: Denies chills or fever(s) Eyes Eyes: Reports diplopia; Denies blurry vision ENT ENT ED: Denies rhinorrhea or sore throat Cardiovascular Cardiovascular: Denies chest pain or palpitations Respiratory/Chest Respiratory/Chest: Reports cough; Denies dyspnea Gastrointestinal Gastrointestinal: Denies nausea or vomiting Genitourinary Genitourinary ED: Denies dysuria or hematuria Musculoskeletal Musculoskeletal: Reports back pain; Denies neck pain Integumentary Denies abscess or rash Neurologic Neurologic: Denies headache(s) or weakness Allergic/Immunologic Allergic/Immunologic ED: Denies mouth swelling or urticaria EXAM Physical Exam Const Vital Signs: 04/01/22 18:38 Temperature 97.8 F Temperature Source Temporal Pulse Rate 100 Respiratory Rate 18 Blood Pressure 147/100 H Blood Pressure Mean 115 Pulse Ox 100 Oxygen Delivery Method Room Air Positive well nourished and well developed General Appearance ED: well developed and NAD HEENT Negative for tenderness Eyes PERRL and EOMs intact bilaterally Neck supple and no JVD Resp normal respiratory effort and clear to auscultation bilaterally Cardio regular rate, regular rhythm and no murmurs GI normal to inspection, nondistended, normoactive bowel sounds and non-tender Palpation: soft Back/Spine Back/Spine Narrative: There is mild tenderness of the upper thoracic spine. There is no bony crepitance or step-off. There is no edema or ecchymosis. There is good range of motion. Thoracic Spine / Upper Back: thoracic spinal tenderness T2, T3 and T4 Extremity normal to inspection General Extremety ED: Negative for edema or tenderness General Extremity: Negative for edema Neuro oriented x3, CN's II-XII intact bilaterally and no sensory deficits noted Sensorium / Orientation: alert Motor Exam: strength 5/5 throughout Psych mental status grossly normal Mood & Affect: depressed Skin no rashes or lesions noted MDM MDM MDM Narrative Medical decision making narrative: Differential diagnosis includes stroke, dehydration, intracranial mass, anxiety,closed head injury, urinary tract infection, and labyrinthitis. CBC will be obtained to assess for anemia and leukocytosis. Basic metabolic profile will beobtained to assess for electrolyte abnormality and renal function. Urinalysis will be obtained to assess for urinary tract infection. CT scan of the brain will be obtained to assess for intracranial mass, stroke, and intracranial bleeding. Lab Data Lab results narrative: Urinalysis was reviewed and shows a leukocyte esterases of 500 with positive nitrites and 25-50 white blood cells. There is 2+ bacteria. CBC was reviewed and was within normal limits. Basic metabolic profile was reviewed and showed amild hypokalemia of 3.3 but was otherwise within normal limits. Labs: Laboratory Results - last 24 hr 04/01/22 04/02/22 04/02/22 22:35 00:01 00:01 WBC 7.5 RBC 4.17 L Hgb 13.2 Hct 43.7 MCV 104.8 H MCH 31.7 MCHC 30.2 L RDW Std Deviation 53.9 H RDW Coeff of Enedina 13.8 Plt Count 185 MPV 11.1 Immature Gran % (Auto) 0.300 Neut % (Auto) 70.8 H Lymph % (Auto) 17.7 L Shawnee % (Auto) 9.8 Eos % (Auto) 1.1 Baso % (Auto) 0.3 Absolute Neuts (auto) 5.3 Absolute Lymphs (auto) 1.32 Nucleated RBC % 0 Sodium 145 Potassium 3.3 L Chloride 110 H Carbon Dioxide 23.0 Anion Gap 12 BUN 12 Creatinine 0.66 Estim Creat Clear Calc 113.49 Est GFR (MDRD) Af Amer 128 Est GFR (MDRD) Non-Af 106 BUN/Creatinine Ratio 18.1 Glucose 102 Calcium 9.4 Urine Color Sheba Urine Clarity Sl. Cloudy Urine pH 5.0 Ur Specific Swengel 1.025 Urine Protein 30 H Urine Glucose (UA) Normal Urine Ketones 5 H Urine Occult Blood 10 H Urine Nitrite Positive H Urine Bilirubin 1 H Urine Urobilinogen 1 H Ur Leukocyte Esterase 500 H Urine RBC 0 SEEN Urine WBC 25-50 SEEN Ur Squamous Epith Cells 0-5 SEEN Urine Bacteria 2+ Urine Mucus 0 SEEN Urine Trichomonas 0-5 SEEN Radiography Diagnostic Testing: Clinical Impression(s) from Imaging Studies Brain CT 04/01/22 22:01 IMPRESSION: 1. No acute intracranial abnormalities. 2. Age-related changes. Electronically Signed: Rico Ayala MD at 23:55 EST , CT scan of the brain was obtained. There is no acute intracranial abnormality. This was interpreted by the radiologist and was also independently reviewed by myself. Treatment and Re-Evaluation Narrative: Urine culture was ordered. Patient was given a dose of Bactrim here. Patient was given a prescription for Bactrim. Patient was instructed to drink plenty offluids. Patient was instructed to follow-up with her primary care physician in 3 to 5 days. Patient understood and was agreeable with the plan. All questionswere answered. Discharge Plan Triage Chief Complaint: Dizziness ED Provider: Kiel Galvez Dx/Rx/DC Orders Clinical Impression: Urinary tract infection, Poor intravenous access Instructions: ED Cystitis Female Adult Prescriptions: New sulfamethoxazole-trimethoprim [sulfamethoxazole-trimethoprim] 800-160 mg tablet 1 tab PO BID Qty: 6 0RF No Action ferrous sulfate 325 MG tablet 325 mg PO DAILY@0800 topiramate 100 MG tablet 100 mg PO BID Qty: 60 0RF gabapentin 300 MG capsule 300 mg PO BID Qty: 60 0RF levetiracetam 1,000 MG tablet 1,000 mg PO BID Qty: 60 0RF amlodipine 5 mg tablet 5 mg PO DAILY phenobarbital 64.8 mg tablet 64.8 mg PO BID Label Comments: TAKE ONE (1) TABLET BY MOUTH TWICE DAILY sucralfate 1 gram Tablet 1 g PO 0700,1100,1600 Qty: 0 0RF sennosides-docusate sodium [Stool Softener-Stimulant Laxat] 8.6-50 mg Tablet 2 tab PO BID PRN PRN (Reason: Constipation) Qty: 0 0RF menthol-zinc oxide [Calmoseptine] 0.44-20.6 % Ointment 1 applic topical TID Qty: 0 0RF Protocol: *Topical Application Instructions APPLICATION INSTRUCTIONS: buttocks cyanocobalamin (vitamin B-12) 500 mcg Tablet 1,000 mcg PO BREAKFAST Qty: 0 0RF folic acid 1 mg Tablet 1 mg PO BREAKFAST Qty: 0 0RF acetaminophen [Tylenol] 325 mg Tablet 650 mg PO Q6H PRN PRN (Reason: Pain 1-10 Or Fever>100.7) Qty: 0 0RF prednisone 5 mg tablet 5 mg PO UD Qty: 240 0RF Rx Instructions: 40 mg p.o. daily x1 week then 35 mg p.o. daily x1 week then 30 mg p.o. daily x1 week then 30 mg p.o. daily x1 week then 25 mg p.o. daily x1 week then 20 mg p.o. daily x1 week then 15 mg p.o. daily x1 week then 10 mg p.o. daily x1 week then 5 mg daily pantoprazole [Protonix] 40 mg tablet,delayed release (DR/EC) 40 mg PO DAILY Qty: 1 0RF Primary Care Provider: Himanshu Sanchez Referrals: Himanshu Sanchez MD [Primary Care Provider] - 3-5 Days Disposition Disposition: Home, Self Care What to do if you have Problems For any increased pain, shortness of breath, bleeding, nausea or vomiting, chestpain, or any unexpected problems, contact your Primary Care Provider. Call [facility] ([phone]) or report to the closest Emergency Room. Call 911 if necessary. 04/02/22 0055 <Electronically signed by Kiel Galvez DO> Cosigner Signature (if applicable): CC: Dr. Himanshu Sanchez MD ~ Signed [facility] Work Phone: 1(263) 178-756910-21-2022 Miscellaneous Notes* Telephone Encounter - Nahomy Cummings Pss - 12/17/2021 10:40 AM EDT Patient has been identified by name and date of : Yes Last office visit in this department: 10/04/2021 RX INSTRUCTIONS: Patient aware RX will be sent to pharmacy. No need to notify patient. Patient phones requesting refills as follows: Requested Prescriptions Pending Prescriptions Disp Refills amLODIPine (NORVASC) 5 mg tablet 90 tablet 0 Sig: Take 1 tablet by mouth once daily. Please review and advise. Nahomy Cummings Pss documented in this [facility]Ohio[facility] Miscellaneous Notes* Telephone Encounter - Shereen Granados LPN - 12/09/2021 11:10 AM EDT Phoned patient and discussed Spencer's message with her. Patient stated she already had medicaid paying for her medications and that she has spencer's number already. Patient stated if she needs anything she knows how to get in contact with Spencer. * Telephone Encounter - Gianfranco Snachez MD - 12/09/2021 11:05 AM EDT Please attempt to call patient with Spencer's information. If not able to reach her, can send letter. * Telephone Encounter - Caprice Quinones LPN - 12/09/2021 10:47 AM EDT Spencer with [facility] called and states she has not been able to get a hold of pt. Spencer states the last time she spoke with pt was 4 to 6 weeks ago and at that time pt had told her she was having marital problems and her was leaving her. Spencer states she would like to help get pt setup for a waiver program which would help her with meds, apts and home duties. Spencer was given no information from the office she asked to have this message passed on to pt's provider. Spencer left her phone number where she can be reached back [phone]. Caprice Quinones LPN documented in this encounterOhio[facility]09-20-2022 Miscellaneous Notes* Telephone Encounter - Shereen Granados LPN - 11/16/2021 11:28 AM EDT Phoned patient to see about scheduling an ER follow up visit. Patient voiced some concern about getting here to appointment due to transportation issues. Asked patient if she would like to check intotransportation before scheduling appointments and she stated she would. Patient to call back and schedule once she has transportation secured. documented in this encounterOhio[facility]08-08-2022 Instructions* Patient Instructions* Maribell Bernard APRN.CNP - 10/04/2021 3:27 PM EDT 1.) Schedule appointment with Neurology as soon as possible : [facility], phone [phone]. Standing appt with Dr. Aneesh Krishnan at [facility] November 01. 2.) Check medications at home, if you need refills please call the office. 3.) Recommend establishing care with a family counselor to discuss divorce and children. 4.) Follow up in 1- 3 months after neurology visit. documented in this encounterOhio[facility]08-08-2022 History of Present illness Narrative* Maribell Bernard APRN.MUSIC PROMOTER - 10/04/2021 2:40 PM EDT This is a 36 year old female who presents today with: Patient presents with: Acute Visit: Seizures HISTORY OF PRESENT ILLNESS: Mary Claudio is a 36 year old female. Patient presents with: Acute Visit: Seizures Patient of Dr. Sanchez here in the office to discuss seizures. Refers that she is having marital troubles with increased stress which seems to increase her seizures. Unsure if she is seeing a neurologist. Last Seizure was on 09/23/2021, [facility] by EMS. Neighbors called. Has 3 children, 15, 11, 9/9 (twins)- refers that children will call [address] brain and head completed in the ER on to showed chronic involutional changes stable. History epilepsy with breakthrough seizure: Taking Keppra 1000 mg twice daily. Topamax 100 mg twicedaily and gabapentin 300 mg twice daily. Phenobarbital 64.8 mg twice daily. Care everywhere, Matt checked 09/29/2021 WNL. She is unsure what medication she is currently taking. Unsure how often she is having seizures. From previous provider notes patient's manages medication. Neurology note was found in patient record from neuro care center in [place], patient had a virtual visit with them in May. Has upcoming appointment in October with neurologist. Was instructed to continue with Keppra, phenobarbital, Topamax, and gabapentin. 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 dextromethorphan-guaiFENesin (MUCINEX DM) 30-600 mg per tablet Take 1 tablet by mouth twice daily. PHENobarbital 64.8 mg tablet ferrous sulfate 325 mg (65 mg iron) tablet Take 1 tablet by mouth daily with breakfast. docusate sodium (COLACE) 100 mg capsule Take 1 capsule by mouth twice daily as needed for Constipation. gabapentin (NEURONTIN) 300 mg capsule Take 300 mg by mouth twice daily. For 180 days levETIRAcetam (KEPPRA) 1,000 mg tablet Take 1,000 mg by mouth twice daily. topiramate (TOPAMAX) 100 mg tablet Take 100 mg by mouth twice daily. No current facility-administered medications for this visit. FAMILY HISTORY Problem Relation Age of Onset Leukemia Mother Hypertension Father No Known Problems Sister No Known Problems Brother Social History Tobacco Use Smoking status: Former Smokeless tobacco: Never Vaping Use Vaping Use: Never used Substance Use Topics Alcohol use: Never Alcohol/week: 2.5 standard drinks Types: 1 Glasses of Wine (5oz) per week Comment: rarely Drug use: Yes Types: Marijuana Comment: not often REVIEW OF SYSTEMS GENERAL: No weight loss, malaise or fevers/chills HEENT: Negative for frequent or significant headaches, No changes in hearing or vision. NECK: Negative for lumps, goiter, pain and significant neck swelling RESPIRATORY: Negative for cough, hemoptysis, wheezing, dyspnea or shortness of breath CARDIOVASCULAR: Negative for chest pain, leg swelling, orthopnea, or palpitations GI: No nausea, vomiting, or diarrhea/constipation. No hematochezia/melena. No heartburn or reflux symptoms. : No history of dysuria, frequency or incontinence MUSCULOSKELETAL: Negative for joint pain or swelling. SKIN: Negative for lesions, rash, and itching ENDOCRINE: Negative for cold or heat intolerance, polyuria, polydipsia and goiter NEURO: + Seizures MOOD: Negative for depression, anxiety, or suicidal ideation. EXAM: BP 130/72 Pulse 73 Resp 16 Wt 110.2 kg (243 lb) SpO2 98% BMI 40.73 kg/m PHYSICAL EXAM: General Appearance: Well appearing, alert, in no acute distress, well-hydrated, well nourished. Skin: Skin color, texture, turgor normal, no suspicious rashes or lesions. Head: Normocephalic, no masses, lesions, tenderness or abnormalities. Eyes: Anicteric sclera. Pupils are equally round and reactive to light. Extraocular movements are intact. Lungs: Lungs clear to auscultation. No wheezing, rhonchi, rales. Heart: RRR without murmur, gallop, or rubs. No ectopy. Extremities: No deformities, edema, skin discoloration, clubbing or cyanosis. Good capillary refill. Peripheral Pulses: Normal, Capillary refill <2secs, strong peripheral pulses, Pulses palpable. Neurologic: Gait normal. Reflexes normal and symmetric. Sensation grossly intact., Negative findings: speech normal, cranial nerves 2-12 intact, gait, including heel, toe, and tandem walking normal, muscle strength normal, sensation to light touch and pinprick normal. ASSESSMENT/PLAN: 1. Breakthrough seizure (HCC) - ICD9: 345.91, ICD10: G40.919 - Recommend with neurology as soon as possible. Provided neurologist information to patient. - Instructed the patient to double check her medication at home via list provided and call the office if she needs any refills. - Recommend establishing care with a family counselor to have guidance for marital difficulties andprovide family support. - Red flag symptoms go to ER. - CONSULT TO NEUROLOGY Follow-up after in 1 to 3 months after seeing neurology or sooner as needed. Discussed treatment plan and patient voices understanding. Patient's questions answered appropriately. Medications and potential side effects were discussed and patient voices understanding. Maribell Bernard APRN.ASHLEY This note was partially generated using Buzzvil voice recognition system. Note was reviewed for accuracy. There may be minor misspellings or grammar miscues with Buzzvil voice recognition. documented in this encounterOhio[facility]07-27-2022 Miscellaneous Notes* Telephone Encounter - Aruna Vega LPN - 09/22/2021 4:20 PM EDT TC to pt. Made appt for 09/25/20 and will get medication filled at the appt. Aruna Vega LPN * Telephone Encounter - Gianfranco Sanchez MD - 09/22/2021 4:13 PM EDT Patient is overdue for routine check up. Please call for OV to schedule physical. * Telephone Encounter - Awa Omalley Ma - 09/22/2021 3:54 PM EDT Last office visit: 03/29/21 F/u scheduled: none Awa Shahram Rachel * Telephone Encounter - Patricia Caldwell Pss - 09/22/2021 3:14 PM EDT Pharmacy verified in Epic Patient has been identified by name and date of : Yes Patient aware RX will be sent to pharmacy. No need to notify patient. Spouse phones for refill(s): Pending Prescriptions Disp Refills AMLODIPINE 5 MG TABLET 90 tablet 1 Sig: Take 1 tablet by mouth once daily. CHRISTIANO: No Date of last office visit : 03/29/2021 Date of next office visit : Visit date not found Last 2 Encounter Wt Readings: Date: Wt: 03/29/2021 113.9 kg (251 lb 3.2 oz) 03/09/2021 117.5 kg (259 lb) Please advise. Patricia Caldwell Pss documented in this encounterOhiohealth [facility]07-03-2022 Hospital Discharge instructions* Instructions* Betzaida Hernandez MD - 08/29/2021 - Please take your seizure medications as prescribed - Please follow-up with your neurologist - Return to the emergency department for any new or worsening symptoms * Attachments The following attachments cannot be sent through Care Everywhere. * Seizure (Swedish) documented in this [facility] Work Phone: 1(355) 530-798606-02-2022 Hospital Discharge instructions Additional Instructions Blood pressure 166/18 on arrival. Start taking your amlodipine 10 mg (two 5mg tabs) daily in the morning. Follow-up with your doctor next week for recheck of your blood pressure.[facility] Work Phone: 1(122) 671-458801-12-2022 Miscellaneous Notes* Telephone Encounter - Katia Herrera APRN.CNP - 03/10/2021 9:20 AM EST Reviewed. Katia Herrera APRN.CNP * Telephone Encounter - Ella Spencer RN - 03/10/2021 9:07 AM EST Patient notified of results and provider's instructions. Explained to patient that she qualifies for monoclonal antibodies but patient states that she has no way to get to hospital to get infusion due to not having a car. Went over OTC medications that she can try to help with the symptoms. Advisedpatient that if she becomes more short of breath or gets worse then she would need to go to ER to be evaluated. Patient voiced understanding. Ella Spencer RN * Telephone Encounter - Katia Herrera APRN.CNP - 03/10/2021 8:00 AM EST Please call patient and let her know she is positive for COVID-19. She does qualify for monoclonal antibodies if through [facility]. Katia Herrera APRN.CNP [facility] Miscellaneous Notes* Telephone Encounter - Gianfranco Sanchez MD - 07/21/2020 3:28 PM EDT Patient has appointment on 07/24 with Katia Herrera. Will forward to her to discuss any further home health needs. If there are none, agree with discharge next week. * Telephone Encounter - Surendra Regalado RN - 07/21/2020 2:50 PM EDT Roselia- CHRISS- [facility]- reports patient is ready for discharge next week. Will go ahead and discharge if do not hear back from pcp. documented in this encounterOhio[facility] History of Past illness Narrative* Problem Noted Date Resolved Date Oliguria 03/20/2020 03/21/2020 Last Assessment & Plan: Minimal UOP despite positive fluid balance (3L in, 400ml out in last 24h), without BUN/sCR elevation -bladder scan now to ensure law patency -consider Furosemide challange Encephalopathy 03/19/2020 03/22/2020 Last Assessment & Plan: Exam improving, following commands UA not suspicious for infection, TSH, Ammonia, B12, Cortisol unremarkable Plan: -MRI Brain WWO Status epilepticus 03/18/2020 03/26/2020 Last Assessment & Plan: See breakthrough seizures Iron deficiency anemia 03/18/2020 Last Assessment & Plan: Assessment: Per history PLAN: Continue home Iron supplements (Ferrous sulfate 325 MWF) Former smoker 03/18/2020 03/19/2020 Last Assessment & Plan: Assessment: Per history in April 2019 PLAN: - Tire Sorter on nicotine cessation - Nicotine patches PRN On mechanically assisted ventilation 08/16/2017 08/17/2017 Respiratory insufficiency 08/15/20172020 Last Assessment & Plan: Intubated for airway protection at OSH 03/22 Extubated to [place] PLAN: - Tolerating RA without issue - Supplemental Oxygen as needed to maintain SpO2>94% - PT/OT/OOB as tolerated documented as of this encounter (statuses as of 06/17/2021) [facility] History of Past illness Narrative* Problem Noted Date Resolved Date Oliguria 03/20/2020 03/21/2020 Last Assessment & Plan: Minimal UOP despite positive fluid balance (3L in, 400ml out in last 24h), without BUN/sCR elevation -bladder scan now to ensure law patency -consider Furosemide challange Encephalopathy 03/19/2020 03/22/2020 Last Assessment & Plan: Exam improving, following commands UA not suspicious for infection, TSH, Ammonia, B12, Cortisol unremarkable Plan: -MRI Brain WWO Status epilepticus 03/18/2020 03/26/2020 Last Assessment & Plan: See breakthrough seizures Iron deficiency anemia 03/18/2020 Last Assessment & Plan: Assessment: Per history PLAN: Continue home Iron supplements (Ferrous sulfate 325 MWF) Former smoker 03/18/2020 03/19/2020 Last Assessment & Plan: Assessment: Per history in April 2019 PLAN: - Tire Sorter on nicotine cessation - Nicotine patches PRN On mechanically assisted ventilation 08/16/2017 08/17/2017 Respiratory insufficiency 08/15/20172020 Last Assessment & Plan: Intubated for airway protection at OSH 03/22 Extubated to [place] PLAN: - Tolerating RA without issue - Supplemental Oxygen as needed to maintain SpO2>94% - PT/OT/OOB as tolerated documented as of this encounter (statuses as of 07/28/2021) [facility] History of Past illness Narrative* Problem Noted Date Resolved Date Oliguria 03/20/2020 03/21/2020 Last Assessment & Plan: Minimal UOP despite positive fluid balance (3L in, 400ml out in last 24h), without BUN/sCR elevation -bladder scan now to ensure law patency -consider Furosemide challange Encephalopathy 03/19/2020 03/22/2020 Last Assessment & Plan: Exam improving, following commands UA not suspicious for infection, TSH, Ammonia, B12, Cortisol unremarkable Plan: -MRI Brain WWO Status epilepticus 03/18/2020 03/26/2020 Last Assessment & Plan: See breakthrough seizures Iron deficiency anemia 03/18/2020 Last Assessment & Plan: Assessment: Per history PLAN: Continue home Iron supplements (Ferrous sulfate 325 MWF) Former smoker 03/18/2020 03/19/2020 Last Assessment & Plan: Assessment: Per history in April 2019 PLAN: - Tire Sorter on nicotine cessation - Nicotine patches PRN On mechanically assisted ventilation 08/16/2017 08/17/2017 Respiratory insufficiency 08/15/20172020 Last Assessment & Plan: Intubated for airway protection at OSH 03/22 Extubated to FL PLAN: - Tolerating RA without issue - Supplemental Oxygen as needed to maintain SpO2>94% - PT/OT/OOB as tolerated documented as of this encounter (statuses as of 09/22/2021) [facility] History of Past illness Narrative* Problem Noted Date Resolved Date Oliguria 03/20/2020 03/21/2020 Last Assessment & Plan: Minimal UOP despite positive fluid balance (3L in, 400ml out in last 24h), without BUN/sCR elevation -bladder scan now to ensure law patency -consider Furosemide challange Encephalopathy 03/19/2020 03/22/2020 Last Assessment & Plan: Exam improving, following commands UA not suspicious for infection, TSH, Ammonia, B12, Cortisol unremarkable Plan: -MRI Brain WWO Status epilepticus 03/18/2020 03/26/2020 Last Assessment & Plan: See breakthrough seizures Iron deficiency anemia 03/18/2020 Last Assessment & Plan: Assessment: Per history PLAN: Continue home Iron supplements (Ferrous sulfate 325 MWF) Former smoker 03/18/2020 03/19/2020 Last Assessment & Plan: Assessment: Per history in April 2019 PLAN: - Tire Sorter on nicotine cessation - Nicotine patches PRN On mechanically assisted ventilation 08/16/2017 08/17/2017 Respiratory insufficiency 08/15/20172020 Last Assessment & Plan: Intubated for airway protection at OSH 03/22 Extubated to [place] PLAN: - Tolerating RA without issue - Supplemental Oxygen as needed to maintain SpO2>94% - PT/OT/OOB as tolerated documented as of this encounter (statuses as of 10/04/2021) [facility] History of Past illness Narrative* Problem Noted Date Resolved Date Oliguria 03/20/2020 03/21/2020 Last Assessment & Plan: Minimal UOP despite positive fluid balance (3L in, 400ml out in last 24h), without BUN/sCR elevation -bladder scan now to ensure law patency -consider Furosemide challange Encephalopathy 03/19/2020 03/22/2020 Last Assessment & Plan: Exam improving, following commands UA not suspicious for infection, TSH, Ammonia, B12, Cortisol unremarkable Plan: -MRI Brain WWO Status epilepticus 03/18/2020 03/26/2020 Last Assessment & Plan: See breakthrough seizures Iron deficiency anemia 03/18/2020 Last Assessment & Plan: Assessment: Per history PLAN: Continue home Iron supplements (Ferrous sulfate 325 MWF) Former smoker 03/18/2020 03/19/2020 Last Assessment & Plan: Assessment: Per history in April 2019 PLAN: - Tire Sorter on nicotine cessation - Nicotine patches PRN On mechanically assisted ventilation 08/16/2017 08/17/2017 Respiratory insufficiency 08/15/20172020 Last Assessment & Plan: Intubated for airway protection at OSH 03/22 Extubated to [place] PLAN: - Tolerating RA without issue - Supplemental Oxygen as needed to maintain SpO2>94% - PT/OT/OOB as tolerated documented as of this encounter (statuses as of 11/30/2021) [facility] History of Past illness Narrative* Problem Noted Date Resolved Date Oliguria 03/20/2020 03/21/2020 Last Assessment & Plan: Minimal UOP despite positive fluid balance (3L in, 400ml out in last 24h), without BUN/sCR elevation -bladder scan now to ensure law patency -consider Furosemide challange Encephalopathy 03/19/2020 03/22/2020 Last Assessment & Plan: Exam improving, following commands UA not suspicious for infection, TSH, Ammonia, B12, Cortisol unremarkable Plan: -MRI Brain WWO Status epilepticus 03/18/2020 03/26/2020 Last Assessment & Plan: See breakthrough seizures Iron deficiency anemia 03/18/2020 Last Assessment & Plan: Assessment: Per history PLAN: Continue home Iron supplements (Ferrous sulfate 325 MWF) Former smoker 03/18/2020 03/19/2020 Last Assessment & Plan: Assessment: Per history in April 2019 PLAN: - Tire Sorter on nicotine cessation - Nicotine patches PRN On mechanically assisted ventilation 08/16/2017 08/17/2017 Respiratory insufficiency 08/15/20172020 Last Assessment & Plan: Intubated for airway protection at OSH 03/22 Extubated to FL PLAN: - Tolerating RA without issue - Supplemental Oxygen as needed to maintain SpO2>94% - PT/OT/OOB as tolerated documented as of this encounter (statuses as of 12/14/2021) [facility] History of Past illness Narrative* Problem Noted Date Resolved Date Oliguria 03/20/2020 03/21/2020 Last Assessment & Plan: Minimal UOP despite positive fluid balance (3L in, 400ml out in last 24h), without BUN/sCR elevation -bladder scan now to ensure law patency -consider Furosemide challange Encephalopathy 03/19/2020 03/22/2020 Last Assessment & Plan: Exam improving, following commands UA not suspicious for infection, TSH, Ammonia, B12, Cortisol unremarkable Plan: -MRI Brain WWO Status epilepticus 03/18/2020 03/26/2020 Last Assessment & Plan: See breakthrough seizures Iron deficiency anemia 03/18/2020 Last Assessment & Plan: Assessment: Per history PLAN: Continue home Iron supplements (Ferrous sulfate 325 MWF) Former smoker 03/18/2020 03/19/2020 Last Assessment & Plan: Assessment: Per history in April 2019 PLAN: - Tire Sorter on nicotine cessation - Nicotine patches PRN On mechanically assisted ventilation 08/16/2017 08/17/2017 Respiratory insufficiency 08/15/20172020 Last Assessment & Plan: Intubated for airway protection at OSH 03/22 Extubated to FL PLAN: - Tolerating RA without issue - Supplemental Oxygen as needed to maintain SpO2>94% - PT/OT/OOB as tolerated documented as of this encounter (statuses as of 12/17/2021) [facility] History of Past illness Narrative* Problem Noted Date Resolved Date Oliguria 03/20/2020 03/21/2020 Last Assessment & Plan: Minimal UOP despite positive fluid balance (3L in, 400ml out in last 24h), without BUN/sCR elevation -bladder scan now to ensure law patency -consider Furosemide challange Encephalopathy 03/19/2020 03/22/2020 Last Assessment & Plan: Exam improving, following commands UA not suspicious for infection, TSH, Ammonia, B12, Cortisol unremarkable Plan: -MRI Brain WWO Status epilepticus 03/18/2020 03/26/2020 Last Assessment & Plan: See breakthrough seizures Iron deficiency anemia 03/18/2020 Last Assessment & Plan: Assessment: Per history PLAN: Continue home Iron supplements (Ferrous sulfate 325 MWF) Former smoker 03/18/2020 03/19/2020 Last Assessment & Plan: Assessment: Per history in April 2019 PLAN: - Tire Sorter on nicotine cessation - Nicotine patches PRN On mechanically assisted ventilation 08/16/2017 08/17/2017 Respiratory insufficiency 08/15/20172020 Last Assessment & Plan: Intubated for airway protection at OSH 03/22 Extubated to FL PLAN: - Tolerating RA without issue - Supplemental Oxygen as needed to maintain SpO2>94% - PT/OT/OOB as tolerated documented as of this encounter (statuses as of 04/28/2022) [facility] Hospital course Narrative* Tricia Adam MD - 02/28/2019 11:57 AM EST Internal Medicine: Med Team Discharge Summary Mary Claudio : 1985 ADMIT DATE: 02/23/2019 DISCHARGE DATE: 02/28/19 PCP: GALI HIDALGO Visit Status: Admission Code Status: Full Code Primary Discharge Diagnosis: Status epilepticus resolved Secondary Discharge Diagnoses: Acute Respiratory failure secondary to altered mental status, resolved Streptococcus Pneumoniae infection Hypertension Morbid Obesity History of medication non-compliance causing multiple status epilepticus admissions Iron Deficiency anemia Reason for Admission & Hospital Course: 33 yo woman with history of seizures recurrent admissions for status epilepticus, non adherence to medical regimen, htn,cognitive deficits, prior aspiration pneumonia, depression, tobacco and thc abuse [facility] with complaints of generalized weakness, was t reated and released, but came in later that day in status epilepticus, transferred to [facility], admittedto ICU. Was intubated for acute respiratory failure. Neurology evaluated patient for status epilepticus, placed patient on Topamx, Keppra, Neurontin, PNT ER. Patient was extubated and transferred to general medical floor in stable condition. No recurrence of seizures, no fevers, no chills. ReceivedVanc/Zosyn initially, later shifted to Ceftriaxone IV. Infectious work-up showed positive strep pneumoniae on respiratory culture, one of 2 blood cultures positive for contaminant Staph epidermidis. Psychology referral made to assess capacity, given concern of medication non-compliance. Assessed tonot have capacity currently due to concern for intellectual disability. Patient reports that she isand will be compliant with medications. Discharged in stable condition, on anti seizure medications, and course of antibiotics for Strep pneumoniae. Disposition: Home Activity: no restriction Diet: general Discharge Medications: Robson Mary Naresh Home Medication Instructions KEVON:[id number] Printed on:02/28/19 5875 Medication Information amLODIPine (NORVASC) 10 MG tablet Take 1 tablet by mouth daily amoxicillin-clavulanate (AUGMENTIN) 875-125 MG per tablet Take 1 tablet by mouth 2 times daily for 3 days ferrous sulfate 325 (65 Fe) MG tablet Take 1 tablet by mouth every other day gabapentin (NEURONTIN) 300 MG capsule Take 1 capsule by mouth 2 times daily for 30 days. hydrOXYzine (ATARAX) 25 MG tablet Take 1 tablet by mouth 3 times daily as needed for Itching levETIRAcetam (KEPPRA) 1000 MG tablet Take 1 tablet by mouth 2 times daily phenytoin (DILANTIN) 50 MG tablet Take 3 tablets by mouth 2 times daily topiramate (TOPAMAX) 100 MG tablet Take 1 tablet by mouth 2 times daily triamcinolone (KENALOG) 0.1 % lotion Apply topically 3 times daily as needed Notable Medication Changes & Reasoning: Added ferrous sulfate; based on anemia and iron studies Added antibiotics for 3 days based on Strep pneumoniae finding on respiratory culture Continue anti epileptics Consultants Neurology ICU Psychology Procedures Performed EEG Significant Laboratory/Radiographic Data: Respiratory culture: Strep Pneumoniae Blood culture 1 out of 2 positive for contaminant Stapg epidermidis; other no growth Pending Results at Time of Discharge None Follow Up Appointment: [facility] [place] 03/08/2019 Dr. Ludwig Neu[facility] in [place] on March 21 at 12PM Items to Address at Followup Visit: Compliance with seizure medications COMPLEXITY OF FOLLOW UP: [x] Moderate Complexity: follow up within 7-14 calendar days (25236) [] Severe Complexity: follow up within 7 calendar days (05217) FOLLOW UP TESTING, PENDING RESULTS OR REFERRALS AT TRANSITIONAL CARE VISIT: [] Yes [] No Associated attestation - Jeanmarie Johnson MD - 02/28/2019 3:57 PM EST Also see my separate progress note from earlier today. >30 min total. * Ivy Wood, PhD - 02/28/2019 11:43 AM EST Recommend that Spencer Gonzalez, medical case manger from [place] ([phone]), provide in-home follow-up visit with patient following hospital discharge. Also recommend that patient be assigned a behavioral health case manger from [place] to facilitate in-home mental health counseling and a cognitive/intelligence assessment to determine if patient meets criteria for an intellectual disability. Also recommend follow-up with [facility] Board of to identify potential resources that may be beneficial to patient. documented in this [facility] Work Phone: 1(464) 230-874501-02-2020 History of Present illness Narrative* Ivy Wood, PhD - 02/28/2019 11:42 AM EST Department of Psychiatry Progress Note In/Out/Time: 11:05 - 11:35am; 30 min Reason for consult: Follow-up; depression SUBJECTIVE: Patient did not remember me from previous interview (02/26/19). Continues to demonstrate poor remote and recent memory. Unable to name current depression/seizure medication, dosage, or instructions. Shared frustration regarding poorly managed seizures, but was unable to identify potential causes. Endorsed distress related to going home, specifically related to her family picking on me for having seizures. Shared distress related to parenting stress. Continues to report experiences of loneliness and lack of emotional support at home. Stated that she has been prescribed an anti-depressant in the past, but does not recall the name stating I stopped taking it because I ran out. OBJECTIVE Pt denied any SI/HI. At this time, no manic, no psychotic symptoms present. Medications Current Facility-Administered Medications: ipratropium-albuterol (DUONEB) nebulizer solution 1 ampule, 1 ampule, Inhalation, BID- 8&2 ferrous sulfate tablet 325 mg, 325 mg, Oral, Every Other Day cefTRIAXone sodium 1 g in dextrose 5 % 50 mL IVPB (add-vantage), 1 g, Intravenous, Q24H levETIRAcetam (KEPPRA) tablet 1,000 mg, 1,000 mg, Oral, BID famotidine (PEPCID) tablet 20 mg, 20 mg, Oral, BID topiramate (TOPAMAX) tablet 125 mg, 125 mg, Oral, BID gabapentin (NEURONTIN) capsule 600 mg, 600 mg, Oral, BID trimethoprim-polymyxin b (POLYTRIM) ophthalmic solution 1 drop, 1 drop, Right Eye, 6 times per day sodium chloride flush 0.9 % injection 10 mL, 10 mL, Intravenous, 2 times per day sodium chloride flush 0.9 % injection 10 mL, 10 mL, Intravenous, PRN magnesium hydroxide (MILK OF MAGNESIA) 400 MG/5ML suspension 30 mL, 30 mL, Oral, Daily PRN ondansetron (ZOFRAN) injection 4 mg, 4 mg, Intravenous, Q6H PRN acetaminophen (TYLENOL) tablet 650 mg, 650 mg, Oral, Q4H PRN miconazole (MICOTIN) 2 % powder, , Topical, BID labetalol (NORMODYNE;TRANDATE) injection 20 mg, 20 mg, Intravenous, Q4H PRN heparin (porcine) injection 5,000 Units, 5,000 Units, Subcutaneous, 3 times per day phenytoin (DILANTIN) 125 MG/5ML suspension 100 mg, 100 mg, Oral, Q8H REVIEW OF SYSTEMS: Psychiatric Review Of Systems: Anxiety Yes Depression Yes Sleep disturbance No Appetite change No Irritability Yes Change in concentration Yes Ruminating thoughts Yes Racing thoughts No Change in energy level Yes Hallucinations NoDelusions No MENTAL STATUS EXAM Appearance: disheveled and hospital gown, looks stated age Behavior: cooperative; friendly Activity: normal Speech: some observed difficulties with word-finding, spontaneous, normal rate and normal volume Mood: depressed, Affect: within normal limits and tearful at times Associations: Goal-Directed Thought content: concrete Thought process: coherent Orientation: oriented in all spheres Attention: fair Concentration: fair Insight: poor Judgment: poor Cognitive: remote and recent memory impaired; suspect cognitive delay Suicidal Intentions: Denied Suicidal Plan: None Functional status: Impaired Impression : Major Depressive Disorder, recurrent, moderate R/O Intellectual Disability Prognosis: Fair to poor given suspected cognitive impairments, limited social support, and chronic medical issues Treatment Modality/Intervention: Supportive Psychotherapy; collaborative problem-solving ASSESSMENT AND PLAN: No evidence of SI/HI; pt is future-oriented and with protective factors (e.g., stated dedication tochildren). Patient currently without capacity for medical decision making given demonstrated inability to understand, appreciate, remember, or reason through relavent prognostic and treatment-related information, due to cognitive impairment and exacerbated by depression. Per patient, unable to independently follow prescription medication regimen or schedule medical appointments. To defer to decision-making surrogate (currently- ). Given patient cognitive impairment, requires support of and medical office professional instructor to ensure adherence to all medical treatment regimens. should be present at all outpatient medical appointments. Session focused on providing ongoing assessment and supportive intervention to assist patient in the the management of depression and anxiety symptoms. Informed patient that she will be contacted by medical and behavioral health family preservation caseworker in the next 72 hours to schedule home visits (also included this information in discharge summary). Attempted to call medical case manger, Spencer Gonzalez, during patient visit, but immigration case manager did not answer. Provided patient with immigration case manager's phone number ([phone]) should she or her have a question / would like to initiate scheduling of visit. Reinforced importance of she and answering phone should immigration case manager call. * Dary Sarmiento MD - 02/28/2019 8:02 AM EST Internal Medicine:Med Team Progress Note Mary Claudio : 1985(33 y.o.) Date: February 28, 2019 TEAM:[facility] Attending: Dr. Johnson Subjective: No acute events overnight. Patient pulled out central line yesterday. Medically stable for discharge pending transportation. No complaints this morning besides mild headache. Scheduled Meds: ipratropium-albuterol 1 ampule Inhalation BID- 8&2 ferrous sulfate 325 mg Oral Every Other Day cefTRIAXone (ROCEPHIN) IV 1 g Intravenous Q24H levETIRAcetam 1,000 mg Oral BID famotidine 20 mg Oral BID topiramate 125 mg Oral BID gabapentin 600 mg Oral BID trimethoprim-polymyxin b 1 drop Right Eye 6 times per day sodium chloride flush 10 mL Intravenous 2 times per day miconazole Topical BID heparin (porcine) 5,000 Units Subcutaneous 3 times per day phenytoin 100 mg Oral Q8H Continuous Infusions: PRN Meds:sodium chloride flush, magnesium hydroxide, ondansetron, acetaminophen, labetalol Review of Systems Constitutional: Negative for appetite change, fatigue and fever. HENT: Negative for congestion, sinus pressure and sinus pain. Eyes: Negative for discharge and visual disturbance. Respiratory: Negative for apnea, cough, chest tightness, shortness of breath, wheezing and stridor. Cardiovascular: Negative for chest pain, palpitations and leg swelling. Gastrointestinal: Negative for abdominal distention, abdominal pain, constipation, diarrhea, nauseaand vomiting. Endocrine: Negative for cold intolerance and heat intolerance. Genitourinary: Negative for dysuria and hematuria. Musculoskeletal: Negative for neck pain and neck stiffness. Skin: Negative for rash. Allergic/Immunologic: Negative for environmental allergies. Neurological: Negative for dizziness, syncope and headaches. Hematological: Negative for adenopathy. Psychiatric/Behavioral: Negative for agitation and confusion. IntervalPertinent History: Social History Tobacco Use Smoking status: Former Smoker Smokeless tobacco: Never Used Substance Use Topics Alcohol use: No Objective: Patient Vitals for the past 24 hrs: BP Temp Temp src Pulse Resp SpO2 02/28/19 0536 114/71 97.6 F (36.4 C) Temporal 65 18 99 % 02/27/19 2054 16 95 % 02/27/19 1704 111/75 98.4 F (36.9 C) Temporal 98 16 98 % 02/27/19 1443 100/66 98.7 F (37.1 C) Temporal 77 16 97 % 02/27/19 1032 116/77 97.8 F (36.6 C) Temporal 72 16 96 % 02/27/19 0831 16 97 % Average, Min, and Max for last24 hours Vitals: TEMPERATURE: Temp Av.1 F (36.7 C) Min: 97.6 F (36.4 C) Max: 98.7 F (37.1 C) RESPIRATIONS RANGE: Resp Av.3 Min: 16 Max: 18 PULSE RANGE: Pulse Av Min: 65 Max: 98 BLOOD PRESSURE RANGE: Systolic (24hrs), Av , Min:100 , Max:116 ; Diastolic (24hrs), Av, Min:66, Max:77 PULSE OXIMETRY RANGE:SpO2 Av % Min: 95 % Max: 99 % No intake/output data recorded. Physical Exam Constitutional: Appearance: Normal appearance. She is well-developed. She is obese. HENT: Head: Normocephalic and atraumatic. Mouth/Throat: Mouth: Mucous membranes are moist. Pharynx: No oropharyngeal exudate. Eyes: General: No scleral icterus. Conjunctiva/sclera: Conjunctivae normal. Pupils: Pupils are equal, round, and reactive to light. Neck: Musculoskeletal: Neck supple. Thyroid: No thyromegaly. Vascular: No JVD. Trachea: No tracheal deviation. Cardiovascular: Rate and Rhythm: Normal rate and regular rhythm. Heart sounds: Normal heart sounds. No murmur. No friction rub. No gallop. Pulmonary: Effort: Pulmonary effort is normal. No respiratory distress. Breath sounds: Normal breath sounds. No stridor. No wheezing or rales. Chest: Chest wall: No tenderness. Abdominal: General: Bowel sounds are normal. There is no distension. Palpations: Abdomen is soft. Tenderness: There is no tenderness. There is no guarding or rebound. Musculoskeletal: General: No swelling or tenderness. Lymphadenopathy: Cervical: No cervical adenopathy. Skin: General: Skin is warm and dry. Neurological: General: No focal deficit present. Mental Status: She is alert and oriented to person, place, and time. Coordination: Coordination normal. Deep Tendon Reflexes: Reflexes are normal and symmetric. Psychiatric: Mood and Affect: Mood normal. Thought Content: Thought content normal. Lab Results Component Value Date WBC 6.4 02/27/2019 HGB 10.0 (L) 02/27/2019 HCT 31.9 (L) 02/27/2019 MCV 73.3 (L) 02/27/2019 PLT 234 02/27/2019 Lab Results Component Value Date NA 141 02/27/2019 K 3.6 02/27/2019 CL 111 02/27/2019 CO2 23 02/27/2019 BUN 8 02/27/2019 CREATININE 0.83 02/27/2019 GLUCOSE 91 02/27/2019 CALCIUM 8.8 02/27/2019 Lab Results Component Value Date LABA1C 5.2 02/23/2019 Additional results of the last 24 hours have been reviewed. Assessment and Plan: Principal Problem: Status epilepticus (HCC) Resolved Problems: * No resolved hospital problems. * Status Epilepticus, resolved - anti-epileptic regimen: - Topamax 125 mg BID - Keppra 1000 mg BID - Neurontin 600 mg BID - PNT ER 100 mg TID or 150 mg BID Acute respiratory failure resolved secondary to decreased mental status, obesity, on going smoking and thc abuse- resolving Streptococcus Pneumoniae - no leukocytosis, procal 0.14 on admission, afebrile - Strep pneumo on respiratory culture - BC#2 coag neg staph: Staph epidermidis (possible contaminant); second blood culture no growth 2 day - was on Vanc Zosyn on admission, shifted to Ceftriaxone 02/25: continue Ceftriaxone for now then shift to Augmentin for 3 days Hypertension - blood pressure well-controlled on home norvasc, continue - prn labetalol Morbid obesity - advise healthy diet History of medication non-compliance causing multiple status epilepticus admissions - referred to Psychology: assessed to have competence and may be discharged to home once medically ready Iron deficiency anemia (microcytic, hypochromic) s/p venofer - low serum iron, low ferritin - given Venofer on admission - Hgb stable - iron supplementation DVT Prophylaxis: heparin 5000 q 8 hour Disposition: Medically cleared for discharge, pending transportation c/o family. Father is ride home, do not have his phone number and is not answering. Discussed with social work. Will work on discharge plan. Dary Sarmiento MD PGY-1 Preliminary Medicine [phone] Associated attestation - Jeanmarie Johnson MD - 02/28/2019 3:56 PM EST Seen and examined independently. D/w pt and med team separately. Chart and labs reviewed. The below reflects my independent exam, assessment and plan. >30 min total. * Verona Soto RCP - 02/28/2019 6:27 AM EST Patient Evaluation Form The patient is currently receiving Duoneb Q4WA Points 0 1 2 3 4 Points Totals Pulmonary Status (-/+) History Smoking history < 20 pack years Smoking history > 20 pack years Pulmonary Disorder (acute or chronic) Severe or Chronic with Exacerbation 3 Surgical Status No Surgery Trach PEG General Surgery Lower Abdominal Thoracic or Upper Abdominal Thoracic with Pulmonary Disorder 0 Chest X-ray Clear None Ordered Chronic Changes CXR results Pending Infiltrates, atelectasis, pleural effusion, or edema Infiltrates in more than one lobe Infiltrate + Atelectasis, &/or pleural effusion 0 Respiratory Pattern Regular, RR = 12-20 Increased, RR = 21-25 MÁRQUEZ, irregular, or RR = 26-30 Decreased FEV1 or RR = 31-35 Severe SOB, used of of accessory muscles, or RR = > 35 0 Mental Status Alert, oriented, cooperative Confused, but follows commands Lethargic or un-able to follow commands Obtunded Comatose 1 Breath Sounds Clear to auscultation Decreased unilaterally or in bases only Decreased bilaterally Crackles or intermittent wheezes Wheezes 1 Cough Strong, spontaneous, & nonproductive Strong, spontaneous, & productive Weak, nonproductive Weak, productive or with wheezes No spontaneous cough or may require suctioning 0 Level of Activity Ambulatory Ambulatory with Assist Non-ambulatroy Paraplegic Quadriplegic 1 Triage 1 > 20 pts Triage 2 16-20 pts Triage 3 11- 15 pts Triage 4 6 - 10 pts Triage 5 0 - 5 pts TOTAL POINTS = 6 Triage Score = 4 Changing Therapy to Duoneb BID * Ann Marie Trent RN - 02/27/2019 7:29 PM EST Made several attempts to notify family with no response. * Patricia Grigsby MD - 02/26/2019 2:41 PM EST Internal Medicine:Med Team Progress Note Mary Claudio : 1985(33 y.o.) Date: February 26, 2019 TEAM:C Attending: Dr. Johnson Subjective: HPI The patient denies any subjective complaints. No fevers, chills, nausea, vomiting, abdominal pain, GI or symptoms. No seizure activity. Scheduled Meds: cefTRIAXone (ROCEPHIN) IV 1 g Intravenous Q24H levETIRAcetam 1,000 mg Oral BID famotidine 20 mg Oral BID topiramate 125 mg Oral BID gabapentin 600 mg Oral BID trimethoprim-polymyxin b 1 drop Right Eye 6 times per day sodium chloride flush 10 mL Intravenous 2 times per day ipratropium-albuterol 1 ampule Inhalation Q4H WA miconazole Topical BID heparin (porcine) 5,000 Units Subcutaneous 3 times per day phenytoin 100 mg Oral Q8H Continuous Infusions: PRN Meds:sodium chloride flush, magnesium hydroxide, ondansetron, acetaminophen, labetalol Review of Systems Constitutional: Negative for appetite change, fatigue and fever. HENT: Negative for congestion, sinus pressure and sinus pain. Eyes: Negative for discharge and visual disturbance. Respiratory: Negative for apnea, cough, chest tightness, shortness of breath, wheezing and stridor. Cardiovascular: Negative for chest pain, palpitations and leg swelling. Gastrointestinal: Negative for abdominal distention, abdominal pain, constipation, diarrhea, nauseaand vomiting. Endocrine: Negative for cold intolerance and heat intolerance. Genitourinary: Negative for dysuria and hematuria. Musculoskeletal: Negative for neck pain and neck stiffness. Skin: Negative for rash. Allergic/Immunologic: Negative for environmental allergies. Neurological: Negative for dizziness, syncope and headaches. Hematological: Negative for adenopathy. Psychiatric/Behavioral: Negative for agitation and confusion. IntervalPertinent History: Social History Tobacco Use Smoking status: Former Smoker Smokeless tobacco: Never Used Substance Use Topics Alcohol use: No Objective: Patient Vitals for the past 24 hrs: BP Temp Temp src Pulse Resp SpO2 Weight 02/26/19 1427 (!) 121/59 99.1 F (37.3 C) Temporal 85 18 100 % 02/26/19 1129 16 92 % 02/26/19 0842 16 100 % 02/26/19 0837 (!) 109/57 97.8 F (36.6 C) Temporal 89 18 98 % 02/26/19 0800 78 02/26/19 0600 271 lb 13.2 oz (123.3 kg) 02/26/19 0500 (!) 105/49 99.3 F (37.4 C) 93 25 02/26/19 0400 (!) 111/50 99.1 F (37.3 C) Bladder 82 18 98 % 02/26/19 0300 109/79 98.8 F (37.1 C) 85 22 02/26/19 0200 (!) 108/56 98.8 F (37.1 C) 82 19 02/26/19 0100 (!) 108/57 98.8 F (37.1 C) 91 20 02/26/19 0000 104/60 99 F (37.2 C) Bladder 91 20 99 % 02/25/19 2300 117/72 99.3 F (37.4 C) 96 (!) 31 02/25/19 2200 119/67 99.7 F (37.6 C) 97 21 02/25/19 2100 (!) 121/59 100.2 F (37.9 C) 91 23 02/25/19 2052 20 98 % 02/25/19 2000 126/62 99.9 F (37.7 C) Bladder 89 17 98 % 02/25/19 1900 134/61 100.2 F (37.9 C) 91 30 02/25/19 1800 125/89 99.7 F (37.6 C) 94 21 02/25/19 1700 114/81 99.3 F (37.4 C) 79 24 02/25/19 1655 19 02/25/19 1600 99/71 99.5 F (37.5 C) Bladder 83 26 02/25/19 1500 110/61 99.5 F (37.5 C) 86 28 Average, Min, and Max for last24 hours Vitals: TEMPERATURE: Temp Av.3 F (37.4 C) Min: 97.8 F (36.6 C) Max: 100.2 F (37.9 C) RESPIRATIONS RANGE: Resp Av.5 Min: 16 Max: 31 PULSE RANGE: Pulse Av.9 Min: 78 Max: 97 BLOOD PRESSURE RANGE: Systolic (24hrs), Av , Min:99 , Max:134 ; Diastolic (24hrs), Av, Min:49, Max:89 PULSE OXIMETRY RANGE:SpO2 Av.9 % Min: 92 % Max: 100 % I/O last 3 completed shifts: In: 1863 [P.O.:800; I.V.:983; NG/GT:80] Out: 2400 [Urine:2400] Physical Exam Constitutional: Appearance: She is well-developed. HENT: Head: Normocephalic. Mouth/Throat: Pharynx: No oropharyngeal exudate. Eyes: General: No scleral icterus. Conjunctiva/sclera: Conjunctivae normal. Pupils: Pupils are equal, round, and reactive to light. Neck: Musculoskeletal: Neck supple. Thyroid: No thyromegaly. Vascular: No JVD. Trachea: No tracheal deviation. Cardiovascular: Rate and Rhythm: Normal rate and regular rhythm. Heart sounds: Normal heart sounds. No murmur. No friction rub. No gallop. Pulmonary: Effort: Pulmonary effort is normal. No respiratory distress. Breath sounds: Normal breath sounds. No stridor. No wheezing or rales. Chest: Chest wall: No tenderness. Abdominal: General: Bowel sounds are normal. There is no distension. Palpations: Abdomen is soft. Tenderness: There is no tenderness. There is no guarding or rebound. Musculoskeletal: General: No tenderness. Lymphadenopathy: Cervical: No cervical adenopathy. Skin: General: Skin is warm and dry. Neurological: General: No focal deficit present. Mental Status: She is alert. Coordination: Coordination normal. Deep Tendon Reflexes: Reflexes are normal and symmetric. Lab Results Component Value Date WBC 10.0 02/26/2019 HGB 10.7 (L) 02/26/2019 HCT 33.5 (L) 02/26/2019 MCV 72.6 (L) 02/26/2019 PLT 254 02/26/2019 Lab Results Component Value Date NA 142 02/26/2019 K 4.0 02/26/2019 CL 111 02/26/2019 CO2 22 02/26/2019 BUN 6 02/26/2019 CREATININE 0.89 02/26/2019 GLUCOSE 95 02/26/2019 CALCIUM 9.1 02/26/2019 Lab Results Component Value Date LABA1C 5.2 02/23/2019 Additional results of the last 24 hours have been reviewed. Assessment and Plan: Active Problems: Status epilepticus (HCC) Resolved Problems: * No resolved hospital problems. * Status Epilepticus, resolved - anti-epileptic regimen per neuro recs: - Topamax 100 mg BID - Keppra 1000 mg BID - Neurontin 300 mg BID - PNT ER 100 mg TID or 150 mg BID Acute respiratory failure resolved secondary to decreased mental status, obesity, on going smoking and thc abuse Streptococcus Pneumoniae - no leukocytosis, procal 0.14 on admission, afebrile - Strep pneumo on respiratory culture - BC#2 coag neg staph: Staph epidermidis (possible contaminant); second blood culture no growth 1 day - was on Vanc Zosyn on admission, shifted to Ceftriaxone 02/25: continue Ceftriaxone for now Hypertension - blood pressure well-controlled on home norvasc, continue - prn labetalol Morbid obesity - advise healthy diet Depression History of medication non-compliance causing multiple status epilepticus admissions - referred to Psychology: assessed to have competence and may be discharged to home once medically ready (waiting on second blood culture to be negative x 2 days) Iron deficiency anemia (microcytic, hypochromic) s/p venofer - low serum iron, low ferritin - given Venofer on admission - Hgb stable - iron supplementation DVT Prophylaxis: heparin 5000 q 8 hour Disposition: await clinical improvement patient and family updated, I personally examined the patient and I personally reviewed chart, data, labsradiology reports * Kobi Quiles DO - 02/25/2019 2:52 PM EST ICU TRANSFER CHECKLIST Transfer Med Reconciliation (resume home meds if able, convert to PO if able) Complete Antibiotics (name, indication, duration, convert to PO if able) Yes, addressed in today's progress note Switched to 1 g Ceftriaxone q 24 hrs given her S. Pneumoniae + culture Steroid (indication, duration, convert to PO if able) None Anticipated Tome Medications (ICU initiated) or Dose Changes and Indication Yes, addressed in today's progress note Anti-epileptic regimen per Neurocritical Care recommendations Permanently Discontinued Home Medications and Reason for medication contraindication No Law Catheter (please remove if able) No Central Line (please remove if able) Yes, RIJ Transfer Discussed with: Med Team C If additional questions for ICU team within 24 hours of ICU transfer, page [phone] for clarifications. * Abbey Sorenson RD, LD - 02/25/2019 1:05 PM EST Nutrition Assessment Type and Reason for Visit: Positive Nutrition Screen Nutrition Recommendations: 1. Recommend texture/consistency per [employer]ACHINE recommendations (regular, thin liquids). Pt would benefit from 3 carbohydrate choices (45 gm carbs) per meal, cardiac diet to promote healthy weight loss. 2. Monitor weight, labs, fluid, and nutritional status. 3. RD will follow up weekly. Nutrition Assessment: Pt transferred to [facility] 02/23 from [facility]. Patient with recurrent status epilepticus in the setting of non compliance. Pt is resting at time of visit. NG remains in place- extubated on 02/24. [employer]ACHINE recommendations reviewed. PMH: polysubstance abuse, cognitive de ficits, depression, HTN, noncompliance, obesity, cholecystectomy, seizures. Malnutrition Assessment: Malnutrition Status: Insufficient data Nutrition Risk Level: High Nutrient Needs: Estimated Daily Total Kcal: 8011-3513 kcals Estimated Daily Protein (g): 54-65 gm Estimated Daily Total Fluid (ml/day): 1904 ml or per MD Nutrition Diagnosis: Problem: Overweight/Obese Etiology: related to (lifestyle habits) ? Signs and symptoms: as evidenced by BMI Objective Information: Nutrition-Focused Physical Findings: 02/25/19 Labs: K+ 3.4, BUN 5, TG 156 (02/24/19). Meds: Dilantin, Antibiotic. I/O: -225.7, generalized edema, abdomen rounded, soft, active bowel sounds, NG, Nikolai = 14 (redness bilateral breast) Wound Type: None Current Nutrition Therapies: Oral Diet Orders: General, Mildly Thick Oral Diet intake: Unable to assess Oral Nutrition Supplement (ONS) Orders: None ONS intake: (no supplements ordered) Anthropometric Measures: Ht: 5' 4 (162.6 cm) Current Body Wt: 275 lb (124.7 kg)(no method listed) % Weight Change: , (Epic wts: 11/05/18 268 lbs, 06/18/18 272 lbs (standing scale)) Sims Body Wt: 120 lb (54.4 kg), % Sims Body 229% Adjusted Body Wt: , body weight adjusted for [place] Classification: BMI > or equal to 40.0 Obese Class III Nutrition Interventions: Modify current diet Continued Inpatient Monitoring Nutrition Evaluation: Evaluation: Goals set Goals: Patient not experience weight gains. Monitoring: Nutrition Progression, Meal Intake, Skin Integrity, I&O, Weight, Pertinent Labs, Chewing/Swallowing, Patient/Family Education Contact Number: [phone] * Ayaz Viola HolmanChapincito, 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 - 02/25/2019 12:42 PM EST PROGRESS NOTE. STROKE SERVICE Patient Name:Mary Claudio Patient : 1985 Acct: [id number] Date of Admission: 02/23/2019 Room/Bed: [facility] PCP: GALI HIDALGO Patient location ICU Remains in the hospital awaiting plan on disposition, placement, Subjective: New Complaint:None patient not sedated but remains somewhat drowsy NO new seizures No family at bedside at this time Sedation:No Diet/TF:Dysphagia safe Lwa: Yes VTE prophylaxis: YES SCDs +SQ Activity: to chair Disposition: pt extubated. Dispo per PT recs and primary team Current Hospital Medications: Current Facility-Administered Medications: potassium chloride 10 mEq/100 mL IVPB (Peripheral Line), 10 mEq, Intravenous, Q1H, Kobi Quiles DO,Last Rate: 100 mL/hr at 02/25/19 1204, 10 mEq at 02/25/19 1204 piperacillin-tazobactam (ZOSYN) 4.5 g in dextrose 100 mL IVPB extended infusion (premix), 4.5 g, Intravenous, Q6H, Williams Apple DO, Last Rate: 33.3 mL/hr at 02/25/19 0934, 4.5 g at 02/25/19 0934 vancomycin (VANCOCIN) 1,750 mg in dextrose 5 % 500 mL IVPB, 15 mg/kg, Intravenous, Q12H, Williams Apple DO, Last Rate: 250 mL/hr at 02/25/19 1059, 1,750 mg at 02/25/19 1059 gabapentin (NEURONTIN) capsule 600 mg, 600 mg, Oral, BID, Zoe Mills MD, 600 mg at 02/25/19 0848 topiramate (TOPAMAX) tablet 125 mg, 125 mg, Per NG tube, BID, Zoe Mills MD, 125 mg at 02/25/19 0847 trimethoprim-polymyxin b (POLYTRIM) ophthalmic solution 1 drop, 1 drop, Right Eye, 6 times per day,Kobi Quiles DO, 1 drop at 02/25/19 1205 sodium chloride flush 0.9 % injection 10 mL, 10 mL, Intravenous, 2 times per day, Terrell Urrutia MD, 10 mL at 02/25/19 0849 sodium chloride flush 0.9 % injection 10 mL, 10 mL, Intravenous, PRN, Terrell Urrutia MD magnesium hydroxide (MILK OF MAGNESIA) 400 MG/5ML suspension 30 mL, 30 mL, Oral, Daily PRN, Terrell Urrutia MD ondansetron (ZOFRAN) injection 4 mg, 4 mg, Intravenous, Q6H PRN, Terrell Urrutia MD famotidine (PEPCID) injection 20 mg, 20 mg, Intravenous, BID, Trerell Urrutia MD, 20 mg at 02/25/19 0846 acetaminophen (TYLENOL) tablet 650 mg, 650 mg, Oral, Q4H PRN, Terrell Urrutia MD, 650 mg at 02/24/19 2244 levETIRAcetam (KEPPRA) 1,000 mg in sodium chloride 0.9 % 100 mL IVPB, 1,000 mg, Intravenous, Q12H, Terrell Urrutia MD, Stopped at 02/25/19 0442 ipratropium-albuterol (DUONEB) nebulizer solution 1 ampule, 1 ampule, Inhalation, Q4H WA, Terrell Urrutia MD, 1 ampule at 02/25/19 0635 miconazole (MICOTIN) 2 % powder, , Topical, BID, Terrell Urrutia MD labetalol (NORMODYNE;TRANDATE) injection 20 mg, 20 mg, Intravenous, Q4H PRN, Terrell Urrutia MD heparin (porcine) injection 5,000 Units, 5,000 Units, Subcutaneous, 3 times per day, Terrell Urrutia MD, 5,000 Units at 02/25/19 0600 phenytoin (DILANTIN) 125 MG/5ML suspension 100 mg, 100 mg, Oral, Q8H, Terrell Urrutia MD, 100 mg at 02/25/19 0600 Continuous Infusions: Allergies: Fluconazole and Naproxen ROS: Unable to obtain complete ROSsecondary to patient poor participation Review of Systems Objective: Telemetry: Arrhythmia:No Physical Examination: Patient Vitals for the past 8 hrs: BP Temp Temp src Pulse Resp SpO2 02/25/19 1100 132/86 99.3 F (37.4 C) 86 20 95 % 02/25/19 1000 133/84 99.1 F (37.3 C) 82 23 100 % 02/25/19 0900 126/76 99.1 F (37.3 C) 78 20 97 % 02/25/19 0800 128/72 99.1 F (37.3 C) Bladder 88 29 97 % 02/25/19 0700 131/83 99.3 F (37.4 C) 81 23 100 % 02/25/19 0638 21 100 % 02/25/19 0600 127/76 99.5 F (37.5 C) 75 18 96 % 02/25/19 0500 139/78 99.5 F (37.5 C) 78 21 100 % I/O last 3 completed shifts: In: 1514 [I.V.:1134; NG/GT:380] Out: 2140 [Urine:2140] General Physical Examination: General: comfortable, decreased attention HEENT:Normocephalic, atraumatic CV: S1+S2, RRR, no MRG. Pulm:CTA b/l, unlabored Abdomen: Soft NT/ND. BS + Skin: Intact without ulcers, breakdowns or discoloration Extremities: normal with no edema or cyanosis Orthopedic limitation; N/A Pulses: Intact peripherally Carotid auscultation :No bruits Neurological Examination: Higher Functions: Mental Status Exam: Level of Alertness: Orientation: oriented x 4 Memory: limited by pt participation and attention Fund of Knowledge: limited by participation Language: normal Dysarthria not present Cranial Nerves: -II Visual acuity: normal -II Visual kiran: normal -III Pupils (~ 3 mm OD, 3 mm OU) equal, round, reactive to light -III-IV- Extraocular Movements: intact -Nystagmus not tracking -Saccades and pursuits not tracking -V Facial sensation: intact Corneal's Intact bilateral -VII Facial strength: abnormal not cooperative but symmetric -VIII Hearing: abnormal sedated but reactive -IX-X- Gag reflex present -X Palate:abnormal intubated -XI Shoulder shrug: abnormal not cooperative -XII Tongue movement: abnormal - intubated Funduscopic Exam: normal Motor Examination: Tone after evaluation of 4 limbs, the following findings applied: normal -Bulk: normal -Muscle Stretchafter evaluation of all limbs, and axial musculature the following findings applied: Drift: some drift but seems more d/t patient decreased attention than actual weakness . -Reflexes: after evaluation of 4 limbs, the following findings applied ; -Plantar responce: Flexor bilaterally Sensory Nods when asked if touch feels same Coordination: Arms normal Legs patient unable to perform testdue to sedation, paralysis or limb orthopedic circumstances Tremors not present Gait abnormal, unable to walk ANCILLARY Last 24hrs Recent Results (from the past 24 hour(s)) Lactic Acid, Plasma Collection Time: 02/24/19 3:48 PM Result Value Ref Range Lactic Acid 0.6 (L) 0.7 - 2.0 mmol/L Lactic Acid, Plasma Collection Time: 02/24/19 5:35 PM Result Value Ref Range Lactic Acid 0.6 (L) 0.7 - 2.0 mmol/L Basic Metabolic Panel w/ Reflex to MG Collection Time: 02/25/19 4:30 AM Result Value Ref Range Sodium 138 135 - 145 mmol/L Potassium 3.4 (L) 3.5 - 5.1 mmol/L Chloride 108 (H) 98 - 107 mmol/L CO2 23 22 - 30 mmol/L Anion Gap 6 NA Glucose 87 70 - 100 mg/dL BUN 5 (L) 7 - 20 mg/dL CREATININE 0.85 0.52 - 1.25 mg/dL eGFR >60.0 >60 mL/min EGFR IF NonAfrican Peruvian >60.0 >60 mL/min Calcium 8.5 8.4 - 10.4 mg/dL Magnesium Collection Time: 02/25/19 4:30 AM Result Value Ref Range Magnesium 2.0 1.6 - 2.3 mg/dL Phosphorus Collection Time: 02/25/19 4:30 AM Result Value Ref Range Phosphorus 3.0 2.5 - 4.5 mg/dL CBC auto differential Collection Time: 02/25/19 4:31 AM Result Value Ref Range WBC 10.5 3.6 - 10.7 10*3/uL RBC 4.60 3.80 - 5.20 10*6/uL Hemoglobin 10.5 (L) 11.7 - 16.0 g/dL Hematocrit 33.5 (L) 35.0 - 47.0 % MCV 72.7 (L) 79.0 - 98.0 fL MCH 22.7 (L) 26.0 - 34.0 pg MCHC 31.2 (L) 32.0 - 36.0 % RDW 17.7 (H) 11.5 - 14.5 % Platelets 242 140 - 440 10*3/uL MPV 9.4 7.4 - 10.4 fL Granulocytes % 72.1 40.0 - 80.0 % Lymphocyte % 13.8 (L) 20.0 - 40.0 % Monocytes 7.6 2.0 - 10.0 % Eosinophils 5.6 1.0 - 6.0 % Basophils 0.9 0.0 - 2.0 % Absolute Neut # 7.6 (H) 1.8 - 7.0 10*3/uL Absolute Lymph # 1.4 1.0 - 4.3 10*3/uL Absolute [place] # 0.8 0.0 - 0.8 10*3/uL Absolute Eos # 0.6 (H) 0.0 - 0.5 10*3/uL Absolute Baso # 0.1 0.0 - 0.2 10*3/uL Antiepileptic levels: Recent Labs 02/23/19 1346 PHENYTOIN 9.3* Stroke Specific: Lipids: Recent Labs 02/24/19 0442 TRIG 156* HgA1c: Recent Labs 02/23/19 0544 LABA1C 5.2 EEG: Interpretation: Abnormal EEG due to the presence of persistent sharply configured activity from the right frontocentral region, and independently, occasional epileptiform transients from the left anterior temporal lobe. Would correlate with imaging to rule out underlying abnormalities in these areas. This recording does suggest a significant tendency toward seizure, but no seizure is recorded. Please correlate clinically. AED level PNT 10 ASSESSMENT / PLAN/RECOMMENDATIONS: Recurrent status epilepticus, in the setting of non compliance Phenytoin level subtherapeutic at 9.3 on admission History of Epilepsy since age 2-3, Complex partial seizures with secondary generalization - Routine treatment - Topamax 100 mg BID - Keppra 1000 mg BID - Neurontin 300 mg BID - PNT ER 100 mg TID or 150 mg BID Prior referral to Ethics committee, plans on 2017 for patient to be referrer to the [facility], unclear what happened at that time Plan -Continue drug therapy as currently ordered -would consider capacity evaluation in the event that a guardian could help with medication adherence. There is a high concern that she will continue to have further cognitive deterioration with repeated episodes of status. Possibly even sudden unexplained in epilepsy NO further neurologic recommendations at this time. Please call with any questions. Pt. seen and discussed with Dr. Dickey * Tiana Hughes, MICKEY - 02/25/2019 10:16 AM EST Speech Language Pathology Facility/Department: [facility] ICU T2 CLINICAL BEDSIDE SWALLOW EVALUATION NAME: Mary Claudio : 1985 ADMISSION DATE: 02/23/2019 ADMITTING DIAGNOSIS: has Abnormal MRI; Seizure (HCC); Altered mental status; Epilepsy (HCC); History of pneumonia; Respiratory failure requiring intubation (HCC); Microcytosis; Status epilepticus (HCC); Noncompliance with medication regimen; Depression; Acute respiratory failure with hypercapnia (HCC); Aspiration pneumonia (HCC); Acute bronchospasm; Severe sepsis (HCC); Seizure disorder (HCC); Staphylococcus hominis sepsis (HCC); Leukocytosis; Pneumonia of right lower lobe due to methicillin susceptible Staphylococcus aureus (MSSA) (HCC); Cognitive deficits; and Obesity on their problem list. ONSET DATE: 02/23/2019 Recent Chest Xray/CT of Chest: CONCLUSION(S): 1. Minimal left basilar subsegmental atelectasis with improvement. 2. Cardiomegaly. 3. Stable position of support devices. Report Dictated on --- Final --- Dictated: 02/23/2019 7:17 am Date of Eval: 02/25/2019 Evaluating Therapist: Tiana Hughes MA, CCC-WOOD HEEL [employer]TER MACHINE Current Diet level: Current Diet : NPO Current Liquid Diet : NPO Primary Complaint Mary Sharp is a 33 year old woman with PMH significant for seizure disorder, HTN, obesity, depression and medication noncompliance who [facility]. Patient had presented to [facility] earlier in the day with generalized weakness and overall had negative workup and discharged home. Patient later found to be actively seizing; EMS called and administered 5 mg intranasal versed, then 5 mg IO versed. Patient in [facility] ED treated further with additional doses of ativan and versed; she was then given propofol followed by phenytoin. She developed re spiratory failure and was intubated and sedated. Patient receives neurologic care at [facility], they did not have beds available so opted for transfer to [facility]. On examination in neurocritical care unit, patient was on ETT appeared agitated. Propofol started. Patient had poor venous access and IO placed by EMS on LLE no longer flushing; RIJ placed. Pain: Pain Assessment Pain Assessment: FLACC Pain Level: 0 Response to Pain Intervention: Asleep with RR greater than 10 RASS Score: Alert and calm Pain Assessment/FLACC Pain Rating: FLACC (rest) - Face: no particular expression or smile Pain Rating: FLACC (rest) - Legs: normal position or relaxed Pain Rating: FLACC (rest) - Activity: lying quietly, normal position, moves easily Pain Rating: FLACC (rest) - Cry: no cry (awake or asleep) Pain Rating: FLACC (rest) - Consolability: content, relaxed Score: FLACC (rest): 0 Pain Rating: FLACC (activity) - Face: no particular expression or smile Pain Rating: FLACC (activity) - Legs: normal position or relaxed Pain Rating: FLACC (activity): lying quietly, normal position, moves easily Pain Rating: FLACC (activity) - Cry: no cry (awake or asleep) Pain Rating: FLACC (activity) - Consolability: content, relaxed Score: FLACC (activity): 0 Reason for Referral Mary Claudio was referred for a clinical swallow evaluation to assess her swallow function, identify signs and symptoms of dysphagia and make recommendations regarding safe dietary consistencies, effective compensatory strategies, and safe eating environment. Impression Dysphagia Diagnosis: Swallow function appears grossly intact Treatment Plan Requires WOOD HEEL FITTER MACHINE Intervention: No Recommended Diet and Intervention Diet Solids Recommendation: Regular Liquid Consistency Recommendation: Thin Recommended Form of Meds: PO General Chart Reviewed: Yes Subjective Subjective: NG in place Behavior/Cognition: Alert;Cooperative;Pleasant mood Respiratory Status: Room air(Intubated ) O2 Device: None (Room air) Communication Observation: Functional Follows Directions: Simple Dentition: Adequate Patient Positioning: Upright in bed Baseline Vocal Quality: Normal Volitional Cough: Strong Prior Dysphagia History: No previous instrumental exams. Previous post- extubation clinical exams WFL. Consistencies Administered: Reg solid;Ice Chips;Thin - straw;Thin - cup;Dysphagia Pureed (DysphagiaI) Vision/Hearing Vision Vision: Within Functional Limits Hearing Hearing: Within functional limits Oral Motor Deficits Oral/Motor Oral Motor: Within functional limits Oral Phase Dysfunction Oral Phase Oral Phase: WFL Indicators of Pharyngeal Phase Dysfunction Pharyngeal Phase Pharyngeal Phase: WFL Pharyngeal Phase Pharyngeal: Hyolaryngeal movement is noted. There are no overt clinical signs suggestive of pharyngeal impairment, including cough, throat clear, vocal quality change. Prognosis Prognosis Prognosis for safe diet advancement: excellent Individuals consulted Consulted and agree with results and recommendations: Patient;RN Education Patient Education Response: Verbalizes understanding Safety Devices in place: Yes Type of devices: Call light within reach;Nurse notified Therapy Time WOOD HEEL FITTER MACHINE Individual Minutes Time In: 0950 Time Out: 1010 Minutes: 20 WOOD HEEL FITTER MACHINE Total Treatment Time Total Treatment Time: 20 Tiana Hughes MA, CCC-WOOD HEEL [employer]TER MACHINE 02/25/2019 10:16 AM * Kobi Quiles DO - 02/25/2019 6:10 AM EST ICU Progress Note Mary Claudio : 1985(33 y.o.) Date: February 25, 2019 Team: ICU Attending: Dr. Benítez Chief Complaint: Status epilepticus Subjective: Yesterday infectious workup with GPC in clusters and rare GNDC. On Vanc/Zosyn. No acute events overnight and no new complaints. Patient on 2L NC. VSS. Patient in NAD. Review of Systems Unable to perform ROS: Mental status change Scheduled Meds: piperacillin-tazobactam 4.5 g Intravenous Q6H vancomycin 15 mg/kg Intravenous Q12H gabapentin 600 mg Oral BID topiramate 125 mg Per NG tube BID trimethoprim-polymyxin b 1 drop Right Eye 6 times per day sodium chloride flush 10 mL Intravenous 2 times per day sodium chloride flush 10 mL Intravenous 2 times per day famotidine (PEPCID) injection 20 mg Intravenous BID levetiracetam 1,000 mg Intravenous Q12H ipratropium-albuterol 1 ampule Inhalation Q4H WA miconazole Topical BID heparin (porcine) 5,000 Units Subcutaneous 3 times per day chlorhexidine 15 mL Mouth/Throat BID phenytoin 100 mg Oral Q8H Continuous Infusions: propofol Stopped (02/24/19 1300) Objective: VITALS: BP 128/79 Pulse 82 Temp 99.3 F (37.4 C) Resp 18 Ht 5' 4 (1.626 m) Wt 275 lb 2.2 oz (124.8 kg) SpO2 100% BMI 47.23 kg/m CURRENT PULSE OXIMETRY: SpO2: 100 % I/O: 02/24 0701 - 02/25 0700 In: 1514 [I.V.:1134] Out: 2079 [Urine:2079] Ventilator Settings: Vent Mode: PS Rate Set: 16 bmp Vt Ordered: 380 mL Pressure Support: 12 cmH20 PEEP/CPAP: 8 FiO2 : 30 % Oxygen Delivery - O2 Flow Rate (L/min): 2 L/min Invasive Lines and Dates: [facility] 02/23 Intubation Date: 02/23-02/24 General Appearance: []WDWN [x]Obese []Cachectic []Thin []ill Skin: Temperature []Warm [x]Cool Rash [x]Yes []No Tattoo(s) []Yes []No HEENT: Pupils round and react [x]Yes []No Sclera []Icteric []Non-Icteric Conjunctiva []Injected [x]Non-Injected Pinnae [x]Normal []Other Dentitian [x][place] Teeth []Dentures Oral Mucosa [][place] [x]Moist []Dry Oral ETT [x]Present []Absent Neck: Trachea midline [x]Yes []No Thyromegaly []Yes [x]No Crepitus []Present [x]Absent Jvd []Present [x]Absent Lungs: []Clear []Crackles []Wheezes [x]Rhonchi Respiratory effort []Labored [x]Non-Labored Heart: Rate [x]Regular []Irregular []Tachycardia []Bradycardia Rhythm [x]Regular []Irregular Murmur []Present [x]Absent Peripheral Edema []Present [x]Absent Abdomen: [x]Soft Bowel Sounds []Present []Absent []Tender [x]Non-Tender []Distended [x]Non-distended Hernia []Present []Absent Organomegaly []Present []Absent []Scar Extremities: Cyanosis []Present [x]Absent BALLARD ([]RUE []RLE []LUE []LLE) Neurologic: PICAYUNE []Yes []No Corneal reflexes []Present []Absent Plantar reflexes []Up [x]Down []Absent Withdraws to tactile [x]Yes []No Follows Commands []Yes [x]No [x]Unresponsive to verbal []Cranial nerves grossly intact []Sensation grossly intact Psych: Alert []yes [x]no Oriented [x]x0 []x1 []x2 []x3 Affect []Normal []Flat []Agitated []Anxious []Calm []Sedated []NAD Select Labs within last 72 hours BMP: Recent Labs 02/23/19 0544 02/24/19 0442 02/25/19 0430 NA 140 139 138 K 3.7 3.7 3.4* CL 109* 109* 108* CO2 23 25 23 BUN 5* 7 5* CREATININE 0.77 0.90 0.85 CALCIUM 8.6 8.7 8.5 MG 2.1 2.3 2.0 PHOS 3.4 3.8 3.0 LFTS: Recent Labs 02/23/19 1003 AST 23 ALT 26 PROT 7.1 LABALBU 3.7 BILITOT 0.3 ALKPHOS 117 Glucose: Recent Labs 02/23/19 0544 02/24/19 0442 02/25/19 0430 GLUCOSE 117* 88 87 CBC: Recent Labs 02/23/19 0544 02/24/19 0442 02/25/19 0431 WBC 9.7 10.8* 10.5 HGB 10.9* 10.8* 10.5* HCT 34.7* 34.4* 33.5* PLT 270 255 242 MCV 73.1* 72.4* 72.7* RDW 17.6* 17.6* 17.7* ABGs: Recent Labs 02/23/19 0312 02/23/19 0622 PHART 7.396 7.390 [id number] 35.9 37.4 PO2ART 119.2* 101.2* [id number] 21.5 22.1 [id number] 98.6 97.2 FIO2A 0.30 No data Lactic Acid: Recent Labs 02/23/19 1006 02/24/19 1548 02/24/19 1735 LACTA 0.6* 0.6* 0.6* INR: No results for input(s): INR in the last 72 hours. pro-BNP: No results for input(s): NTPROBNP in the last 72 hours. Cardiac Injury Profile: Recent Labs 02/23/19 0544 CKTOTAL 113 Labs in Last 3 months: Lab Results Component Value Date TRIG 156 (A) 02/24/2019 TSH 1.644 10/10/2017 INR 1.0 06/18/2018 NTPROBNP 235 (H) 05/21/2017 LABA1C 5.2 02/23/2019 Imagin/29 EEG: Interpretation: Abnormal EEG due to the presence of persistent sharply configured activity from the right frontocentral region, and independently, occasional epileptiform transients from the left anterior temporal lobe. Would correlate with imaging to rule out underlying abnormalities in these areas. This recording does suggest a significant tendency toward seizure, but no seizure is recorded. Please correlate clinically. 02/23 CXR: CONCLUSION(S): 1. Minimal left basilar subsegmental atelectasis with improvement. 2. Cardiomegaly. Cultures: Gram Stain Result Many polymorphonuclear cells/lpf. Many gram positive cocci. Rare gram negative diplococci POSITIVE: Staphylococcus species (probable Coagulase negative Staph) DETECTED. POSITIVE: mecA (methicillin resistance gene) DETECTED. Presumptive identification performed using [employer] PCR methodology; confirmatory identification to follow. Resp Panel is neg Assessment and Plan: Active Problems: Status epilepticus (HCC) Resolved Problems: * No resolved hospital problems. * 1. Status Epilepticus - anti-epileptic regimen per neuro recs - EEG completed - NG placed yesterday - Consider ethics consult given hx, will discuss - Ammonia levels WNL 2 . Acute respiratory failure secondary to decreased mental status, obesity, on going smoking and thc abuse, possible aspiration PNA - sepsis order set in place, BC#2 coag neg staph, will repeat BC - Starting Vanc and Zosyn given gram stain result - extubated to NC yesterday 3. HTN - prn labetalol - on home norvasc 4. Morbid obesity 5. Depression - consider psych eval once extubated 6. Iron deficiency anemia s/p venofer - will recheck iron studies and cbc Associated attestation - Rodrigo Benítez MD - 02/25/2019 2:50 PM EST I have personally seen the patient and examined along with the resident team. I personally obtainedthe jain and relevent portions of the history and performed physical exam. Unlabored breathing. I reviewed the chart including MAR , labs and radiology and discussed the patient's plan of action with the resident. This note reflects my plan of care as I have edited the note to reflect my findings and my assessment and plan. Status epilepticus, compliance sig issue, placement a consideration. Resp cx w/ strep PNA, blood w/ GPC. If latter contamination, will de-escalate to ceftriaxone. OK for 3W. * Elena Lang RCP - 02/24/2019 2:35 PM EST Pt extubated to 4lpm NC. Voice intact with no stridor. Pt has strong cough. No respiratory distressnoted. Will wean O2 as tolerated and will continue to monitor closely. * Zoe Mills MD - 02/24/2019 1:05 PM EST PROGRESS NOTE. STROKE SERVICE Patient Name:Mary Claudio Patient : 1985 Acct: [id number] Date of Admission: 02/23/2019 Room/Bed: T213/D32974 PCP: GALI HIDALGO Patient location ICU Remains in the hospital due to persistent unresolved acute issues, Subjective: New Complaint:None patient still sedated but waking up NO new seizures' No family at bedside Sedation:No Diet/TF:NPO Law: Yes VTE prophylaxis: YES SCDs +SQ Activity: Bed rest Disposition: patient to be extubated today Current Hospital Medications: Current Facility-Administered Medications: sodium chloride flush 0.9 % injection 10 mL, 10 mL, Intravenous, PRN, Williams Apple DO piperacillin-tazobactam (ZOSYN) 4.5 g in dextrose 100 mL IVPB extended infusion (premix), 4.5 g, Intravenous, Q6H, Williams Apple DO, Last Rate: 33.3 mL/hr at 02/24/19 1039, 4.5 g at 02/24/19 1039 vancomycin (VANCOCIN) 1,750 mg in dextrose 5 % 500 mL IVPB, 15 mg/kg, Intravenous, Q12H, Williams Apple DO, Last Rate: 250 mL/hr at 02/24/19 1141, 1,750 mg at 02/24/19 1141 propofol injection, 10 mcg/kg/min, Intravenous, Titrated, Terrell Urrutia MD, Last Rate: 5.2 mL/hr at 02/24/19 1139, 7 mcg/kg/min at 02/24/19 1139 sodium chloride flush 0.9 % injection 10 mL, 10 mL, Intravenous, 2 times per day, Terrell Urrutia MD, 10 mL at 02/24/19 0841 sodium chloride flush 0.9 % injection 10 mL, 10 mL, Intravenous, PRN, Terrell Urrutia MD magnesium hydroxide (MILK OF MAGNESIA) 400 MG/5ML suspension 30 mL, 30 mL, Oral, Daily PRN, Terrell Urrutia MD ondansetron (ZOFRAN) injection 4 mg, 4 mg, Intravenous, Q6H PRN, Terrell Urrutia MD famotidine (PEPCID) injection 20 mg, 20 mg, Intravenous, BID, Terrell Urrutia MD, 20 mg at 02/24/19 0840 acetaminophen (TYLENOL) tablet 650 mg, 650 mg, Oral, Q4H PRN, Terrell Urrutia MD, 650 mg at 02/24/19 0840 levETIRAcetam (KEPPRA) 1,000 mg in sodium chloride 0.9 % 100 mL IVPB, 1,000 mg, Intravenous, Q12H, Terrell Urrutia MD, Stopped at 02/24/19 0445 gabapentin (NEURONTIN) capsule 300 mg, 300 mg, Oral, BID, Terrell Urrutia MD, 300 mg at 02/24/19 0840 ipratropium-albuterol (DUONEB) nebulizer solution 1 ampule, 1 ampule, Inhalation, Q4H WA, Terrell Urrutia MD, 1 ampule at 02/24/19 1226 miconazole (MICOTIN) 2 % powder, , Topical, BID, Terrell Urrutia MD labetalol (NORMODYNE;TRANDATE) injection 20 mg, 20 mg, Intravenous, Q4H PRN, Terrell Urrutia MD heparin (porcine) injection 5,000 Units, 5,000 Units, Subcutaneous, 3 times per day, Terrell Urrutia MD, 5,000 Units at 02/24/19 0530 chlorhexidine (PERIDEX) 0.12 % solution 15 mL, 15 mL, Mouth/Throat, BID, Franky Hanson MD, 15 mLat 02/24/19 0840 phenytoin (DILANTIN) 125 MG/5ML suspension 100 mg, 100 mg, Oral, Q8H, Terrell Urrutia MD, 100 mg at 02/24/19 0523 topiramate (TOPAMAX) tablet 100 mg, 100 mg, Per NG tube, BID, Zoe Mills MD, 100 mg at 02/24/19 0840 Continuous Infusions: propofol 7 mcg/kg/min (02/24/19 1139) Allergies: Naproxen ROS: Unable to obtain complete ROSsecondary to Mental status / sedation Review of Systems Objective: Telemetry: Arrhythmia:No Physical Examination: Patient Vitals for the past 8 hrs: BP Temp Temp src Pulse Resp SpO2 02/24/19 1200 120/67 99.3 F (37.4 C) 83 16 98 % 02/24/19 1100 129/67 99.9 F (37.7 C) 83 18 99 % 02/24/19 1045 124/71 99.9 F (37.7 C) 84 17 100 % 02/24/19 1000 100 F (37.8 C) 89 18 97 % 02/24/19 0900 (!) 142/85 100.4 F (38 C) 90 19 100 % 02/24/19 0800 139/84 100.2 F (37.9 C) 91 21 100 % 02/24/19 0750 90 20 100 % 02/24/19 0740 83 16 100 % 02/24/19 0700 139/83 100 F (37.8 C) Bladder 80 17 100 % 02/24/19 0600 (!) 140/91 99.9 F (37.7 C) Bladder 91 19 100 % 02/24/19 0552 89 100 % I/O last 3 completed shifts: In: 2030.3 [I.V.:1176.3; NG/GT:854] Out: 1630 [Urine:1630] General Physical Examination: General: comfortable, obese and sedated intubated HEENT:Normocephalic, atraumaticl CV: S1+S2, RRR, no MRG. Pulm:CTA b/l, unlabored Abdomen: Soft NT/ND. BS + Skin: Intact without ulcers, breakdowns or discoloration Extremities: normal with no edema or cyanosis Orthopedic limitation; N/A Pulses: Intact peripherally Carotid auscultation :No bruits Neurological Examination: Higher Functions: Mental Status Exam: Level of Alertness: starting to wake up however she does not seem to have prolong attention spadn do not fix and or followed still under a lot of sedateion Orientation: Limited by level ofconsciousness Memory: Limited by level of consciousness Fund of Knowledge: Limited by level ofconsciousness Language: Limited bylevel of consciousness Dysarthria not present Cranial Nerves: -II Visual acuity: abnormal, limited due to patient unable to perform exam -II Visual kiran: poor reliability due to patient level ofconsciousness or structural limitation -III Pupils (~ 3 mm OD, 3 mm OU) equal, round, reactive to light -III-IV- Extraocular Movements: intact -Nystagmus not tracking -Saccades and pursuits not tracking -V Facial sensation: intact Corneal's Intact bilateral -VII Facial strength: abnormal not cooperative but symmetric -VIII Hearing: abnormal sedated but reactive -IX-X- Gag reflex present -X Palate:abnormal intubated -XI Shoulder shrug: abnormal not cooperative -XII Tongue movement: abnormal - intubated Funduscopic Exam: normal Motor Examination: Tone after evaluation of 4 limbs, the following findings applied: decreased . all limbs -Bulk: normal -Muscle Stretchafter evaluation of all limbs, and axial musculature the following findings applied: Drift: Not participant, withdraw to palpation appeared symmetric She is moving simetrically and is pulling from stimulation . -Reflexes: after evaluation of 4 limbs, the following findings applied ; Abnormal -Plantar responce: Flexor bilaterally Sensory withdraw to palpation 4 limbs , Coordination: Arms patient unable to perform test due to sedation, paralysis or limb orthopedic circumstances Legs patient unable to perform testdue to sedation, paralysis or limb orthopedic circumstances Tremors not present Gait abnormal, unable to walk ANCILLARY Last 24hrs Recent Results (from the past 24 hour(s)) Phenytoin Level, Total Collection Time: 02/23/19 1:46 PM Result Value Ref Range Phenytoin Lvl 9.3 (L) 10.0 - 20.0 ug/mL Basic Metabolic Panel w/ Reflex to MG Collection Time: 02/24/19 4:42 AM Result Value Ref Range Sodium 139 135 - 145 mmol/L Potassium 3.7 3.5 - 5.1 mmol/L Chloride 109 (H) 98 - 107 mmol/L CO2 25 22 - 30 mmol/L Anion Gap 5 NA Glucose 88 70 - 100 mg/dL BUN 7 7 - 20 mg/dL CREATININE 0.90 0.52 - 1.25 mg/dL eGFR >60.0 >60 mL/min EGFR IF NonAfrican [place] >60.0 >60 mL/min Calcium 8.7 8.4 - 10.4 mg/dL CBC auto differential Collection Time: 02/24/19 4:42 AM Result Value Ref Range WBC 10.8 (H) 3.6 - 10.7 10*3/uL RBC 4.75 3.80 - 5.20 10*6/uL Hemoglobin 10.8 (L) 11.7 - 16.0 g/dL Hematocrit 34.4 (L) 35.0 - 47.0 % MCV 72.4 (L) 79.0 - 98.0 fL MCH 22.8 (L) 26.0 - 34.0 pg MCHC 31.5 (L) 32.0 - 36.0 % RDW 17.6 (H) 11.5 - 14.5 % Platelets 255 140 - 440 10*3/uL MPV 9.4 7.4 - 10.4 fL Granulocytes % 70.5 40.0 - 80.0 % Lymphocyte % 17.3 (L) 20.0 - 40.0 % Monocytes 8.1 2.0 - 10.0 % Eosinophils 3.5 1.0 - 6.0 % Basophils 0.6 0.0 - 2.0 % Absolute Neut # 7.6 (H) 1.8 - 7.0 10*3/uL Absolute Lymph # 1.9 1.0 - 4.3 10*3/uL Absolute [place] # 0.9 (H) 0.0 - 0.8 10*3/uL Absolute Eos # 0.4 0.0 - 0.5 10*3/uL Absolute Baso # 0.1 0.0 - 0.2 10*3/uL Magnesium Collection Time: 02/24/19 4:42 AM Result Value Ref Range Magnesium 2.3 1.6 - 2.3 mg/dL Phosphorus Collection Time: 02/24/19 4:42 AM Result Value Ref Range Phosphorus 3.8 2.5 - 4.5 mg/dL Triglycerides Collection Time: 02/24/19 4:42 AM Result Value Ref Range Triglycerides 156 (A) <150 mg/dL Gram Stain Collection Time: 02/24/19 7:58 AM Result Value Ref Range Gram Stain Result Many polymorphonuclear cells/lpf. Many gram positive cocci. Rare gram negative diplococci. Strep Pneumoniae Antigen Collection Time: 02/24/19 8:36 AM Result Value Ref Range STREP PNEUMONIAE ANTIGEN, URINE Strep pneumo antigen NOT DETECTED. Legionella antigen, urine Collection Time: 02/24/19 8:36 AM Result Value Ref Range LEGIONELLA ANTIGEN Legionella antigen NOT DETECTED. Procalcitonin Collection Time: 02/24/19 10:29 AM Result Value Ref Range Procalcitonin 0.14 (A) <0.10 ng/mL Interpretation See Below NA Antiepileptic levels: Recent Labs 02/23/19 1346 PHENYTOIN 9.3* Stroke Specific: Lipids: Recent Labs 02/24/19 0442 TRIG 156* HgA1c: Recent Labs 02/23/19 0544 LABA1C 5.2 EEG: Interpretation: Abnormal EEG due to the presence of persistent sharply configured activity from the right frontocentral region, and independently, occasional epileptiform transients from the left anterior temporal lobe. Would correlate with imaging to rule out underlying abnormalities in these areas. This recording does suggest a significant tendency toward seizure, but no seizure is recorded. Please correlate clinically. AED level PNT 10 ASSESSMENT / PLAN/RECOMMENDATIONS: Recurrent status epilepticus , in the setting of non compliance , she comes back with status every 3- 5 months No Phenytoin levels obtained on admission - History of Epilepsy since age 2-3, Complex partial seizures with secondary generalization - Routine treatment - Topamax 100 mg BID - Keppra 1000 mg BID - Neurontin 300 mg BID - PNT ER 100 mg TID or 150 mg BID -Prior referral to Ethics committee, plans on 2017 for patient to be referrer to the developmetal BOARD, unclear what happened at that time - Iron deficiency anemia, she was on iron supplement in the past Plan - Please review the note from yesterday - Will suggest to avoid extubation until after she is fully awake - If she is not waking up more tomorrow , consider repeating the EEG and see if the frontal activity is resolving - Will increase her topamax to 125 mg BID and her Neurontin to 600 mg BID for the rare scenario that this where true break though seizures and as an attempt to keep her out of the hospital * Elena Lang RCP - 02/24/2019 12:30 PM EST Pt tolerated SBT well. Placed on PSV 12/[address] [place]. * Elena Lang RCP - 02/24/2019 8:00 AM EST 02/24/19 0775 Cough/Sputum Sputum How Obtained Endotracheal;Suctioned Cough Strong;Productive Sputum Amount Moderate (sputum collected and sent.) Sputum Color Yellow;Creamy Tenacity Thick * Jhonny Arcos RCP - 02/24/2019 5:52 AM EST 02/24/19 0552 Spontaneous Breathing Trial (SBT) RT Doc Contraindications to SBT? None * Kobi Quiles DO - 02/24/2019 5:48 AM EST ICU Progress Note Mary Claudio : 1985(33 y.o.) Date: February 24, 2019 Team: ICU Attending: Dr. Coleman Chief Complaint: Status epilepticus Subjective: Propofol being weaned for SBT. Dobhoff to be placed for medication administration. There is a history of medication non-compliance. Phenytoin level checked and was subtherapeutic. Considering ethics evaluation. Review of Systems Unable to perform ROS: Intubated Scheduled Meds: sodium chloride flush 10 mL Intravenous 2 times per day famotidine (PEPCID) injection 20 mg Intravenous BID levetiracetam 1,000 mg Intravenous Q12H gabapentin 300 mg Oral BID ipratropium-albuterol 1 ampule Inhalation Q4H WA miconazole Topical BID heparin (porcine) 5,000 Units Subcutaneous 3 times per day chlorhexidine 15 mL Mouth/Throat BID phenytoin 100 mg Oral Q8H topiramate 100 mg Per NG tube BID Continuous Infusions: propofol 15 mcg/kg/min (02/24/19 0011) Objective: VITALS: BP (!) 140/83 Pulse 76 Temp 100.2 F (37.9 C) (Bladder) Resp 19 Ht 5' 4 (1.626 m) Wt 275 lb 2.2 oz (124.8 kg) SpO2 100% BMI 47.23 kg/m CURRENT PULSE OXIMETRY: SpO2: 100 % I/O: 02/23 0701 - 02/24 0700 In: 2030.3 [I.V.:1176.3] Out: 1630 [Urine:1630] Ventilator Settings: Vent Mode: AC/VC+ Rate Set: 16 bmp Vt Ordered: 380 mL Pressure Support: 0 cmH20 PEEP/CPAP: 8 FiO2 : 30 % Oxygen Delivery - Invasive Lines and Dates: [facility] 02/23 Intubation Date: 02/23 General Appearance: []WDWN [x]Obese []Cachectic []Thin []ill Skin: Temperature []Warm [x]Cool Rash [x]Yes []No Tattoo(s) []Yes []No HEENT: Pupils round and react [x]Yes []No Sclera []Icteric []Non-Icteric Conjunctiva []Injected [x]Non-Injected Pinnae [x]Normal []Other Dentitian [x][place] Teeth []Dentures Oral Mucosa [][place] [x]Moist []Dry Oral ETT [x]Present []Absent Neck: Trachea midline [x]Yes []No Thyromegaly []Yes [x]No Crepitus []Present [x]Absent Jvd []Present [x]Absent Lungs: []Clear []Crackles []Wheezes [x]Rhonchi Respiratory effort []Labored [x]Non-Labored Heart: Rate [x]Regular []Irregular []Tachycardia []Bradycardia Rhythm [x]Regular []Irregular Murmur []Present [x]Absent Peripheral Edema []Present [x]Absent Abdomen: [x]Soft Bowel Sounds []Present []Absent []Tender [x]Non-Tender []Distended [x]Non-distended Hernia []Present []Absent Organomegaly []Present []Absent []Scar Extremities: Cyanosis []Present [x]Absent BALLARD ([]RUE []RLE []LUE []LLE) Neurologic: PICAYUNE []Yes []No Corneal reflexes []Present []Absent Plantar reflexes []Up [x]Down []Absent Withdraws to tactile [x]Yes []No Follows Commands []Yes [x]No [x]Unresponsive to verbal []Cranial nerves grossly intact []Sensation grossly intact Psych: Alert []yes [x]no Oriented [x]x0 []x1 []x2 []x3 Affect []Normal []Flat []Agitated []Anxious []Calm []Sedated []NAD [facility] within last 72 hours BMP: Recent Labs 02/23/19 0544 02/24/19 0442 NA 140 139 K 3.7 3.7 CL 109* 109* CO2 23 25 BUN 5* 7 CREATININE 0.77 0.90 CALCIUM 8.6 8.7 MG 2.1 2.3 PHOS 3.4 3.8 LFTS: Recent Labs 02/23/19 1003 AST 23 ALT 26 PROT 7.1 LABALBU 3.7 BILITOT 0.3 ALKPHOS 117 Glucose: Recent Labs 02/23/19 0544 02/24/19 0442 GLUCOSE 117* 88 CBC: Recent Labs 02/23/19 0544 02/24/19 0442 WBC 9.7 10.8* HGB 10.9* 10.8* HCT 34.7* 34.4* PLT 270 255 MCV 73.1* 72.4* RDW 17.6* 17.6* ABGs: Recent Labs 02/23/19 0312 02/23/19 0622 PHART 7.396 7.390 QOV4GSB 35.9 37.4 PO2ART 119.2* 101.2* GIJ3GKD 21.5 22.1 Q6UMCKPT 98.6 97.2 FIO2A 0.30 No data Lactic Acid: Recent Labs 02/23/19 0544 02/23/19 1006 LACTA 0.8 0.6* INR: No results for input(s): INR in the last 72 hours. pro-BNP: No results for input(s): NTPROBNP in the last 72 hours. Cardiac Injury Profile: Recent Labs 02/23/19 0544 CKTOTAL 113 Labs in Last 3 months: Lab Results Component Value Date TRIG 156 (A) 02/24/2019 TSH 1.644 10/10/2017 INR 1.0 06/18/2018 NTPROBNP 235 (H) 05/21/2017 LABA1C 5.2 02/23/2019 Imagin/29 EEG: Interpretation: Abnormal EEG due to the presence of persistent sharply configured activity from the right frontocentral region, and independently, occasional epileptiform transients from the left anterior temporal lobe. Would correlate with imaging to rule out underlying abnormalities in these areas. This recording does suggest a significant tendency toward seizure, but no seizure is recorded. Please correlate clinically. 02/23 CXR: CONCLUSION(S): 1. Minimal left basilar subsegmental atelectasis with improvement. 2. Cardiomegaly. Cultures: Gram Stain Result Many polymorphonuclear cells/lpf. Many gram positive cocci. Rare gram negative diplococci Assessment and Plan: Active Problems: Status epilepticus (HCC) Resolved Problems: * No resolved hospital problems. * 1. Status Epilepticus - anti-epileptic regimen per neuro recs - EEG completed - Dobhoff to be placed for medication administration given lack of adherence by patient - Consider ethics consult given hx, will discuss - Ammonia levels WNL 2 . Acute respiratory failure secondary to decreased mental status, obesity, on going smoking and thc abuse, possible aspiration PNA - sepsis order set in place - Starting Vanc and Zosyn given gram stain result - intubated and sedated - SBT 02/24 3. HTN - prn labetalol - on home norvasc 4. Morbid obesity 5. Depression - consider psych eval once extubated 6. Iron deficiency anemia s/p venofer - will recheck iron studies and cbc Associated attestation - Haroon Alfaro MD - 02/24/2019 3:00 PM EST I have personally performed a face to face diagnostic evaluation on this patient. Labs, imaging studies and electronic medical record have been reviewed by me. This note documented and discussed by the [x]manager of warehouse []SHEYLA reflects my history, exam and medical decision making. I have reviewed andagree with the care plan. Changes were made in the orders as necessary. My history, exam, assessment and plan are as follows. Critical care time spent excluding separately billable procedures is 32 minutes. Seizure disorder, status epilepticus, hx non-compliance Acute resp failure Suspected aspiration CXR Send resp culture Sepsis orderset Vanc/zosyn SBT for extubation PHYSICAL EXAM: General Appearance: []WDWN [x]Obese []Cachectic []Thin []ill Skin: Temperature [x]Warm []Cool Rash []Yes []No Tattoo(s) []Yes []No HEENT: Pupils round and react [x]Yes []No Sclera []Icteric []Non-Icteric Conjunctiva []Injected []Non-Injected Pinnae []Normal []Other Dentitian [][place] Teeth []Dentures []edentulous Oral Mucosa [x][place] [x]Moist []Dry Oral ETT [x]Present []Absent Neck: Trachea midline [x]Yes []No Thyromegaly []Yes []No Crepitus []Present []Absent Jvd []Present []Absent Lungs: []Clear []Crackles []Wheezes [x]Rhonchi Respiratory effort []Labored []Non-Labored Heart: Rate [x]Regular []Irregular []Tachycardia []Bradycardia Rhythm [x]Regular []Irregular Murmur []Present []Absent Peripheral Edema []Present []Absent Abdomen: []Soft Bowel Sounds []Present []Absent []Tender []Non-Tender []Distended []Non-distended Hernia []Present []Absent Organomegaly []Present []Absent []unable to assess 2/2 body habitus []Scar Extremities: Cyanosis []Present []Absent BALLARD ([x]RUE [x]RLE [x]LUE [x]LLE) Neurologic: PICAYUNE []Yes []No Corneal reflexes []Present []Absent Plantar reflexes []Up []Down []Absent Withdraws to tactile []Yes []No Follows Commands []Yes [x]No []Unresponsive to verbal []Cranial nerves grossly intact []Sensation grossly intact Psych: Alert []yes []no Oriented []x0 []x1 []x2 []x3 Affect []Normal []Flat []Agitated []Anxious []Calm [x]Sedated []NAD * Garcia Bishop RCP - 02/23/2019 6:20 AM EST 02/23/19 0600 Spontaneous Breathing Trial (SBT) RT Doc Contraindications to SBT? None Rate Measured 17 br/min Pulse 87 SpO2 100 % Spontaneous VT 410 mL RSBI Calculated 41.46 [facility] Phone: 1(532) 561-992101-02-2020 Hospital Discharge instructions* Discharge Instr - SHEYLA* Tricia Adam MD - 02/28/2019 8:17 AM EST Continuity of Care Form Patient Name: Mary Claudio : 1985 Admit date: 02/23/2019 Discharge date: Code Status Order: Full Code Advance Directives: Advance Care Flowsheet Documentation Date/Time Healthcare Directive Type of Healthcare Directive Copy in Chart Healthcare Agent Appointed Healthcare Agent's Name Healthcare Agent's Phone Number 02/24/19 0016 No, patient does not have an advance directive for healthcare treatment -- -- -- -- -- Admitting Physician: Franky Hanson MD PCP: GALI HIDALGO Discharging Nurse: Discharging Hospital Unit/Room#: 5121/314502 Discharging Unit Phone Number: Emergency Contact: Extended Emergency Contact Information Primary Emergency Contact: Jose Claudio [facility] Relation: Spouse Past Surgical History: Past Surgical History: Procedure Laterality Date SECTION x4 CHOLECYSTECTOMY TUBAL LIGATION Immunization History: Immunization History Administered Date(s) Administered Influenza, Quadv, IM, PF (6 mo and older Fluzone, Flulaval, Fluarix, and 3 yrs and older Afluria) 11/06/2018 Active Problems: Patient Active Problem List Diagnosis Code Abnormal MRI R93.89 Seizure ([facility]) R56.9 Altered mental status R41.82 Epilepsy ([facility]) G40.909 History of pneumonia Z87.01 Respiratory failure requiring intubation ([facility]) J96.90 Microcytosis R71.8 Status epilepticus ([facility]) G40.901 Noncompliance with medication regimen Z91.14 Depression F32.9 Acute respiratory failure with hypercapnia ([facility]) J96.02 Aspiration pneumonia ([facility]) J69.0 Acute bronchospasm J98.01 Severe sepsis ([facility]) A41.9, R65.20 Seizure disorder ([facility]) G40.909 Staphylococcus hominis sepsis ([facility]) A41.1 Leukocytosis D72.829 Pneumonia of right lower lobe due to methicillin susceptible Staphylococcus aureus (MSSA) ([facility]) J15.211 Cognitive deficits R41.89 Obesity E66.9 Isolation/Infection: Isolation No Isolation Patient Infection Status Infection Onset Added Last Indicated Last Indicated By Review Planned Expiration Resolved Resolved By None active Resolved MRSA 09/20/16 09/20/16 Dia Webster RN 11/07/18 Dia Webster RN 11/16/15-trach asp & 11/15/15- blood Nurse Assessment: Last Vital Signs: BP 114/71 Pulse 65 Temp 97.6 F (36.4 C) (Temporal) Resp 18 Ht 5' 4 (1.626 m) Wt 271 lb 13.2 oz (123.3 kg) SpO2 99% BMI 46.66 kg/m Last documented pain score (0-10 scale): Pain Level: 0 Last Weight: Wt Readings from Last 1 Encounters: 02/26/19 271 lb 13.2 oz (123.3 kg) Mental Status: {IP PT MENTAL STATUS:} IV Access: { SHEYLA IV ACCESS:726897449} Nursing Mobility/ADLs: Walking {CHP DME ADLs:357444224} Transfer {CHP DME ADLs:800817867} Bathing {CHP DME ADLs:699167697} Dressing {CHP DME ADLs:331606707} Toileting {CHP DME ADLs:000373847} Feeding {P DME ADLs:814700777} Supervisor Ski Production {P DME ADLs:380632433} Med Delivery { SHEYLA MED Delivery:238601794} Wound Care Documentation and Therapy: Elimination: Continence: Bowel: {YES / NO:} Bladder: {YES / NO:} Urinary Catheter: {Urinary Catheter:916804241} Colostomy/Ileostomy/Ileal Conduit: {YES / NO:} Date of Last BM: No intake or output data in the 24 hours ending 02/28/19 0817 No intake/output data recorded. Safety Concerns: { SHEYLA Safety Concerns:423445303} Impairments/Disabilities: { SHEYLA Impairments/Disabilities:437300730} Nutrition Therapy: Current Nutrition Therapy: { SHEYLA Diet List:251186277} Routes of Feeding: {CHP DME Other Feedings:827710175} Liquids: {Electron [employer] Welding Machine Operator liquid thickness:77916} Daily Fluid Restriction: {CHP DME Yes amt example:478464599} Last Modified Barium Swallow with Video (Video Swallowing Test): {Done Not Done Date:} Treatments at the Time of Hospital Discharge: Respiratory Treatments: Oxygen Therapy: {Therapy; copd oxygen:92662} Ventilator: {[facility] Vent List:391396379} Rehab Therapies: {THERAPEUTIC INTERVENTION:2141728089} Weight Bearing Status/Restrictions: {[facility] Weight Bearin} Other Medical Equipment (for information only, NOT a DME order): {EQUIPMENT:264247132} Other Treatments: Patient's personal belongings (please select all that are sent with patient): {CHP DME Belongings:383698672} RN SIGNATURE: {Esignature:300674098} CASE MANAGEMENT/SOCIAL WORK SECTION Inpatient Status Date: Readmission Risk Assessment Score: Readmission Risk Risk of Unplanned Readmission: 15 Discharging to Facility/ Agency Name: Address: Phone: Fax: Dialysis Facility (if applicable) Name: Address: Dialysis Schedule: Phone: Fax: Legal Referee/Supervisor [employer] signature: {Esignature:735099055} PHYSICIAN SECTION Prognosis: Fair Condition at Discharge: Stable Rehab Potential (if transferring to Rehab): Fair Recommended Labs or Other Treatments After Discharge: Physician Certification: I certify the above information and transfer of Mary Claudio is necessary for the continuing treatment of the diagnosis listed and that she requires {Admit to Appropriate Level of Care:11815} for {GREATER/LESS:069758271} 30 days. Update Admission H&P: No change in H&P PHYSICIAN SIGNATURE: * Additional Instructions* Dary Sarmiento MD - 02/28/2019 Please go to your Neurology appointment with Dr. Ludwig on March 21 at 12PM Please follow up with Katia Herrera [facility] [place] 03/08/2019 * Attachments The following attachments cannot be sent through Care Everywhere. * Epilepsy (Swedish) * Medication Refill (Swedish) [facility]: Evaluation note* Diagnosis Status epilepticus (HCC)- Primary Epileptic grand mal status documented in this encounter [facility] Work Phone: Evaluation noteNo assessment information available [facility] Work Phone: Evaluation note* Diagnosis Seizure (HCC)- Primary Other convulsions documented in this encounter [facility] Work Phone: Evaluation note* Diagnosis Breakthrough seizure (HCC)- Primary Unspecified epilepsy with intractable epilepsy [facility] Diagnosis Onset Date Resolution Status Acute GI bleeding acute Anemia acute History of cognitive deficit acute Hx of seizure disorder acute [facility] Work Phone: Evaluation note* Diagnosis Onset Date Resolution Status Acute GI bleeding acute Anemia acute Dehydration acute Gastritis acute History of cognitive deficit acute Hx of seizure disorder acute Nausea and vomiting acute Pancytopenia acute Transaminitis acute [facility] Work Phone: Evaluation note* Diagnosis Onset Date Resolution Status Acute GI bleeding acute Anemia acute Gastritis acute History of cognitive deficit acute Hx of seizure disorder acute Nausea and vomiting acute Pancytopenia acute Dehydration resolved Transaminitis resolved [facility] Work Phone: Evaluation note* Diagnosis Onset Date Resolution Status Acute GI bleeding acute Anemia acute Gastritis acute History of cognitive deficit acute Hx of seizure disorder acute Nausea and vomiting acute Pancytopenia acute Dehydration resolved Transaminitis resolved Generalized weakness acute Hypokalemia acute Numbness and tingling acute Paresthesias acute UTI (urinary tract infection) acute [facility] Work Phone: Evaluation note* Diagnosis Onset Date Resolution Status Acute GI bleeding acute Anemia acute Gastritis acute History of cognitive deficit acute Hx of seizure disorder acute Nausea and vomiting acute Pancytopenia acute Dehydration resolved Transaminitis resolved Generalized weakness resolve d Numbness and tingling resolv ed [facility] Work Phone: Evaluation note* Diagnosis Onset Date Resolution Status Acute GI bleeding acute Anemia acute Gastritis acute History of cognitive deficit acute Hx of seizure disorder acute Nausea and vomiting acute Pancytopenia acute Dehydration resolved Transaminitis resolved Generalized weakness resolve d Numbness and tingling resolv ed Adult failure to thrive acut e Cognitive dysfunction acute Hypokalemia acute Psychiatric illness acute [facility] Work Phone: Evaluation note* Diagnosis Urinary tract infection without hematuria, site unspecified- Primary Right leg pain Pain in soft tissues of limb [facility] Diagnosis Status epilepticus- Primary Epileptic grand mal status Status epilepticus Epileptic grand mal status Left arm weakness Other musculoskeletal symptoms referable to limbs Troponin level elevated Other abnormal blood chemistry Constipation, unspecified constipation type Electrolyte disorder (K, Cl, or Na) Electrolyte and fluid disorders not elsewhere classified [facility] Additional Instructions [facility] Phone[facility] Work Phone: [facility] Work Phone: [facility] Work Phone: [facility] Work Phone: [facility] Work Phone: [phone] Discharge instructionsWF[facility] Work Phone: Hospital Discharge instructions Additional Instructions Your electrolytes are normal today. Follow-up with neurology for your nonspecific paresthesias. Follow-up with your doctor for reevaluation.[facility] Work Phone: Reason for referral (narrative)No reason for referral information availableWFlower Hospital Work Phone: Summary Purpose Family History No Family History Records Found Relationship Condition Age at Onset Recorded Date/T baljinder Unknown Family History?- Unknown March 1:21pm Family History?Cancer, - Unknown Mar 1:21pm Family History?Hypertension Unknown April 02, 2020 1:21pm Family History?No pe rtinent history, - Unknown June 22, 2017 8:46am Relationship Condition Age at Onset Recorded Date/T baljinder Unknown Family History?- Unknown March 12:21pm Family History?Cancer, - Unknown Feb ruary 2020 12:21pm Family History?Hypertension Unknown April 02, 2020 12:21pm Family History?No pe rtinent history, - Unknown June 22, 2017 7:46am Relationship Condition Age at Onset Recorded Date/T baljinder Not Specified Leukemia Unknown Advance Directives No Advanced Directives Records FoundDocuments on File Type Date Recorded Patient Rate Analyst Expl anation Advance Directives and Living Will Power of Water Leak Repairer Latest Code Status on File Code Status Date Activated Date Inactivated Comments Full Code 11/05/2018 1:27 PM Full Code 06/18/2018 8:52 PM 06/21/2018 5:46 PM Full Code 01/16/2018 10:06 PM 01/19/2018 9:13 PM Full Code 10/10/2017 5:26 AM 10/12/2017 7:58 PM Full Code 05/23/2017 10:29 AM 05/26/2017 4:39 PM Latest Code Status on File Code Status Date Activated Date Inactivated Comments Full Code 04/21/2019 5:18 PM Full Code 02/23/2019 3:00 AM 02/28/2019 6:42 PM Full Code 11/05/2018 1:27 PM 11/08/2018 8:38 PM Latest Code Status on File Code Status Date Activated Date Inactivated Comments Full Code 02/23/2019 3:00 AM Documents on File Type Date Recorded Patient Rate Analyst Expl anation Advance Directive(s) 03/18/2020 12:18 PM Advance Directive(s) 08/18/2017 7:33 PM Advance Directive Response Recorded Date/ Time Advance Directives No March 06, 2017 12:59am Living Will No July 29, 2021 2 :22pm Power of Water Leak Repairer No July 29, 2021 2:22pm Advance Directive Response Recorded Date/ Time Advance Directives No March 06, 2017 12:59am Living Will No August 08, 2021 12:01pm Power of Water Leak Repairer No August 08 12:01pm Documents on File Type Date Recorded Patient Rate Analyst Expl anation ACP-Advance Directive ACP-Power of Water Leak Repairer Latest Code Status on File Code Status Date Activated Date Inactivated Comments Full Code 04/21/2019 5:18 PM 04/30/2019 9:00 PM Advance Directive Response Recorded Date/ Time Advance Directives No March 06, 2017 12:59am Living Will No August 31, 2021 2 :19pm Power of Water Leak Repairer No August 31, 2021 2:19pm Advance Directive Response Recorded Date/ Time Advance Directives No March 06, 2017 12:59am Living Will No September 16, 2021 9:28pm Power of Water Leak Repairer No September 16 9:28pm Advance Directive Response Recorded Date/ Time Advance Directives No March 06, 2017 12:59am Living Will No September 19, 2021 8:18pm Power of Water Leak Repairer No September 19 8:18pm Advance Directive Response Recorded Date/ Time Advance Directives No March 06, 2017 12:59am Living Will No September 21, 2021 7:44pm Power of Water Leak Repairer No September 21 7:44pm Advance Directive Response Recorded Date/ Time Advance Directives No March 06, 2017 12:59am Living Will No September 23, 2021 4:31pm Power of Water Leak Repairer No September 23 4:31pm Advance Directive Response Recorded Date/ Time Advance Directives No March 06, 2017 12:59am Living Will No October 10 6:59pm Power of Water Leak Repairer No October 10, 2 022 6:59pm Advance Directive Response Recorded Date/ Time Advance Directives No March 06, 2017 12:59am Living Will No November 14, 2021 5:46pm Power of Water Leak Repairer No October 5:46pm Advance Directive Response Recorded Date/ Time Advance Directives No March 05, 2017 11:59pm Living Will No February 17, 2 022 2:50pm Power of Water Leak Repairer No February 17, 2022 2:50pm Advance Directive Response Recorded Date/ Time Advance Directives No March 05, 2017 11:59pm Living Will No March 02 6:00pm Power of Water Leak Repairer No March 02, 2 023 6:00pm Advance Directive Response Recorded Date/ Time Advance Directives No March 05, 2017 11:59pm Living Will No March 30 9:15am Power of Water Leak Repairer No March 30, 2022 9:15am Advance Directive Response Recorded Date/ Time Advance Directives No March 05, 2017 11:59pm Living Will No April 01 11:07pm Power of Water Leak Repairer No April 01, 2022 11:07pm Advance Directive Response Recorded Date/ Time Advance Directives No March 05, 2017 11:59pm Living Will No April 07 2:07am Power of Water Leak Repairer No April 07, 2022 2:07am Advance Directive Response Recorded Date/ Time Advance Directives No March 05, 2017 11:59pm Living Will No April 10, 2 023 1:12pm Power of Water Leak Repairer No April 10, 2022 1:12pm Advance Directive Response Recorded Date/ Time Advance Directives No March 05, 2017 11:59pm Living Will No April 12, 2 023 5:04pm Power of Water Leak Repairer No April 12, 2022 5:04pm Advance Directive Response Recorded Date/ Time Advance Directives No March 05, 2017 11:59pm Living Will No April 14, 2 023 5:34pm Power of Water Leak Repairer No April 14, 2022 5:34pm Latest Code Status on File Code Status Date Activated Date Inactivated Comments Full Code 03/30/2023 12:04 PM Advance Directive Response Recorded Date/ Time Advance Directives No March 06, 2017 12:59am Hospital Course * Josemanuel Felton MD - 11/08/2018 1:06 PM EDT Internal Medicine: Med Team Discharge Summary Mary Claudio : 1985 ADMIT DATE: 11/05/2018 DISCHARGE DATE: 11/08/18 PCP: GALI HIDALGO Visit Status: Admission Code Status: Full Code Primary Discharge Diagnosis: Status epilepticus Secondary Discharge Diagnoses: Medication non-compliace Reason for Admission & Hospital Course: 32 years old female with a PMH of seizure, MRDD, Obesity, HTN, hx of non- compliance with her meds who presented 11/05/18 with status epilepticus that was suspected that it was due to non-compliance with her anti-epileptic drugs at home. Pt was given keppra, ativan, and multiple rounds of versed over the course of an hour from EMS call to ED care. Seizures were unable to be stopped and pt was intubated and placed on versed gtt. Of note, she has had multiple recent admissions with seizures felt to be secondary to non-compliance. EEG showed no clear seizure activity noted during ICU stay, however there was noted to be epileptogenicity in the right frontal region. CT head negative for acute intracranial process. Patient was stablizied and extubated the following day. Transferred to floors. Continued on home dose Keppra, dilantin, and Topamax. Neurology recommended follow up with general neurology to discuss evaluation for future surgical intervention; will need to f/u with her neurologist as soon as possible after discharge. Patient medically stable for discharge. Disposition: Home Activity: No restriction. Diet: DIET GENERAL; Discharge Medications: Mary Claudio Home Medication Instructions KEVON:[id number] Printed on:11/08/18 0077 Medication Information amLODIPine (NORVASC) 10 MG tablet Take 1 tablet by mouth daily gabapentin (NEURONTIN) 300 MG capsule Take 1 capsule by mouth 2 times daily for 180 days. hydrOXYzine (ATARAX) 25 MG tablet Take 1 tablet by mouth 3 times daily as needed for Itching levETIRAcetam (KEPPRA) 1000 MG tablet Take 1 tablet by mouth 2 times daily phenytoin (DILANTIN) 50 MG tablet Take 3 tablets by mouth 2 times daily topiramate (TOPAMAX) 100 MG tablet Take 1 tablet by mouth 2 times daily triamcinolone (KENALOG) 0.1 % lotion Apply topically 3 times daily as needed Notable Medication Changes & Reasoning: Continue Keppra 1000 mg BID Continue Dilantin 150 mg BID Continue Topamax 100 mg BID Continue gabapetnin 300 mg BID Consultants Neurology Critical care Procedures Performed Intubation Significant Laboratory/Radiographic Data: EEG - This abnormal EEG is consistent with potential epileptogenicity in the right frontal region as well as right hemispheric dysfunction. There was also evidence for severe generalized nonspecific cerebral dysfunction. No clear seizures were Recorded. CT head non-contrast - No acute intracranial process; but did show mild parenchymal volume loss more on the left. Prominent CSF space versus tiny remote left external capsule lacunar infarct Pending Results at Time of Discharge Phenytoin level Follow Up Appointment: with Dr. Hidalgo on 11/21/18 at 10:10 AM. Items to Address at Followup Visit: She needs scheduled follow up with a neurologist If she is being compliant with anti-epileptics F/u anemia COMPLEXITY OF FOLLOW UP: [x] Moderate Complexity: follow up within 7-14 calendar days (38708) [] Severe Complexity: follow up within 7 calendar days (35274) FOLLOW UP TESTING, PENDING RESULTS OR REFERRALS AT TRANSITIONAL CARE VISIT: [x] Yes (CBC, phenytoin level) [] No Associated attestation - Jodi Mcfadden MD - 11/08/2018 4:39 PM EDT Patient seen and examined on 11/08/2018. See my exam & notes regarding the discharge plan on progress note attestation dated 11/08/2018. Pager: [phone] documented in this encounter* Richard Huerta MD - 04/30/2019 9:24 AM EST Internal Medicine: Med Team Discharge Summary Mary Claudio : 1985 ADMIT DATE: 04/21/2019 DISCHARGE DATE: 04/30/19 PCP: GALI HIDALGO Visit Status: Admission Code Status: Full Primary Discharge Diagnosis: Seizures (frequent status epilepticus) Secondary Discharge Diagnoses: HTN Cognitive impairment Tobacco abuse Reason for Admission & Hospital Course: 33 yo F, PMH of seizures, HTN, depression, cognitive deficits. Presented to [place] via EMS after awitnessed seizure and a second seizure en route. Pt was intubated as she could not protect airway. Transferred to [facility] ICU. Extubated 04/22 and transferred to the floor. Neuro followed and adjusted AED's. Phenytoin d/c'd. Phenobarb started. Levels remained low and required significant time to reach therapeutic levels. However, PNB level did reach therapeutic levels prior to discharge. CT head WNL. EEG showed no epileptiform activity, but did have nonspecific cerebral dysfunction as below. Social situation continued to be of concern during this admission. At previous admissions, plan wasfor the immigration case manager to perform a home visit, [facility] health eval, and [facility] board to visit pt to determine if she needs further support. D/w immigration case manager who said that home visit was performed and felt that was adequate at providing support and helping with medication compliance. Disposition: Home Activity: No restriction. up with assist Diet: DIET GENERAL; Discharge Medications: Mary Claudio Naresh Home Medication Instructions KEVON:[id number] Printed on:04/30/19 1323 Medication Information amLODIPine (NORVASC) 5 MG tablet Take 1 tablet by mouth daily ferrous sulfate 325 (65 Fe) MG tablet Take 1 tablet by mouth every other day gabapentin (NEURONTIN) 300 MG capsule Take 1 capsule by mouth 2 times daily for 120 days. levETIRAcetam (KEPPRA) 1000 MG tablet Take 1 tablet by mouth 2 times daily Melatonin 3 MG CAPS Take 3 mg by mouth every evening PHENobarbital (LUMINAL) 97.2 MG tablet Take 1 tablet by mouth 2 times daily for 120 days. sennosides-docusate sodium (SENOKOT-S) 8.6-50 MG tablet Take 2 tablets by mouth 2 times daily As needed for constipation topiramate (TOPAMAX) 100 MG tablet Take 1 tablet by mouth 2 times daily triamcinolone (KENALOG) 0.1 % lotion Apply topically 3 times daily as needed Notable Medication Changes & Reasoning: DC phenytoin Phenobarb 97.2 mg BID Decreased Amlodipine 5mg from 10mg [facility] ICU Neuro Psych Procedures Performed None Significant Laboratory/Radiographic Data: CT head WN EEG: abnormal EEG is consistent with focal cerebral dysfunction in the right central parietal region as well as possible evidence for left hemispheric dysfunction. The background is consistent with severe generalized nonspecific cerebral dysfunction. No clear seizures or epileptiform activity were seen. Pending Results at Time of Discharge None Follow Up Appointment: Following in [place] w/ PCP. Spencer PALMER contacted to set up. Items to Address at Followup Visit: Medication compliance - especially seizure medications Blood pressure medication - BP very well controlled on 5mg amlodipine in hospital. Reassess to see if needs prior 10mg. COMPLEXITY OF FOLLOW UP: [] Moderate Complexity: follow up within 7-14 calendar days (13008) [] Severe Complexity: follow up within 7 calendar days (04670) FOLLOW UP TESTING, PENDING RESULTS OR REFERRALS AT TRANSITIONAL CARE VISIT: [] Yes [] No Associated attestation - Melody Woods MD - 04/30/2019 2:49 PM EST Patient seen & examined on day of discharge. Please refer to note dated on the day of discharge( ) for associated attestation, exam, and plan. documented in this encounter History of Present Illness * Josemanuel Felton MD - 11/08/2018 8:03 AM EDT Med Team Progress Note Mary Claudio : 1985(33 y.o.) Date: November 08, 2018 Med Team: Marcel Attending: Dr. Mcfadden Chief Complaint: Seizures Subjective: Transferred from ICU yesterday s/p status epilepticus and intubation This AM, patient resting comfortably in bed. No acute events overnight. Patient states that she wasn't taking her meds prior to episodes of seizures. She states her manages her medications for her. Patient overall not a detailed historian and has a flat affect/dysphoric mood. Did not endorse any chest pain, shortness of breath, abdominal pain, N/V Ambulating appropriately Last BM was yesterday No urinary issues Tolerating diet Review of Systems Constitutional: Negative for chills, diaphoresis and fever. HENT: Negative for rhinorrhea and sore throat. Eyes: Negative for photophobia and visual disturbance. Respiratory: Positive for cough. Negative for shortness of breath and wheezing. Cardiovascular: Negative for chest pain, palpitations and leg swelling. Gastrointestinal: Positive for abdominal pain (LUQ). Negative for constipation, diarrhea, nausea and vomiting. Genitourinary: Negative for dysuria and flank pain. Musculoskeletal: Negative for arthralgias and back pain. Neurological: Positive for headaches. Negative for dizziness and light-headedness. Psychiatric/Behavioral: Negative for agitation and confusion. Scheduled Meds: levETIRAcetam 1,000 mg Oral BID topiramate 100 mg Oral BID gabapentin 300 mg Oral BID phenytoin 150 mg Oral BID amLODIPine 10 mg Oral Daily sodium chloride flush 10 mL Intravenous 2 times per day enoxaparin 40 mg Subcutaneous Daily Continuous Infusions: PRN meds used in last 24hrs: None Objective: BP 117/81 Pulse 74 Temp 97.8 F (36.6 C) (Temporal) Resp 18 Ht 5' 8 (1.727 m) Wt 268 lb 15.4 oz (122 kg) SpO2 100% BMI 40.90 kg/m Physical Exam Constitutional: She is oriented to person, place, and time. She appears well- developed and well-nourished. No distress. HENT: Head: Normocephalic and atraumatic. Eyes: Pupils are equal, round, and reactive to light. EOM are normal. Neck: Normal range of motion. Cardiovascular: Normal rate, regular rhythm and normal heart sounds. Exam reveals no gallop and no friction rub. No murmur heard. Pulmonary/Chest: Effort normal and breath sounds normal. No respiratory distress. She has no wheezes. She has no rales. Abdominal: Soft. Bowel sounds are normal. She exhibits no distension. There is tenderness (LUQ). Musculoskeletal: Normal range of motion. She exhibits no edema. Neurological: She is alert and oriented to person, place, and time. She displays normal reflexes. No cranial nerve deficit or sensory deficit. She exhibits normal muscle tone. Coordination normal. Skin: Skin is warm and dry. She is not diaphoretic. Psychiatric: She has a normal mood and affect. Her behavior is normal. MRDD [facility] within last 24 hours Assessment and Plan: S/p ICU admission for status epilepticus - no witnessed seizure activity - continue keppra 1000 mg BID - continue dilantin 150 mg BID - continue topomax 100 mg BID - IM Ativan PRN (no current IV access) - no clear seizure noted on EEG during ICU stay, however there was noted to be epileptogenicity in the right frontal region; neuro recommended follow up with general neurology to discuss evaluation for future surgical intervention; will need to f/u with her neurologist as soon as possible after discharge - Continue home gabapentin 300 mg BID Hypertension - Continue home Norvasc 10 mg daily MRDD - questionable history of medication compliance; patient states her helps her take her medsat home - social work consult for evaluation here F/E/N - General diet DVT Prophylaxis: lovenox 40 q 24hr - creatinine clearance >30 Associated attestation - Jodi Mcfadden MD - 11/08/2018 2:23 PM EDT I have discussed the care of Mary Claudio, including pertinent history and exam findings, withthe resident. I have seen and examined the patient and the jain elements of all parts of the encounter have been performed by me. (GC Modifier) I agree with resident's findings and plan as documented in the resident's note. Please see below for personal highlights or additions to resident note. Patient seen and examined by myself at 8:50am on 11/08/18. Txfr out of ICU yesterday. No acute events overnight. States she slept well and has been getting upto the bedside commode and denies any light- headedness/dizziness. Reports a mild L frontal ROD this AM without photophobia that resolved with tylenol. Denies numbness/tingling, CP/SOB, N/V/D/Abd pain/F /C. Appetite still not great but had ordered breakfast. +Flatus. Vitals/labs stable. No focal neurodeficits on exam just flat affect and takes a second to answer your question. Oriented to person/place/time/situation and not encephalopathic. Will plan to continue current AED regimen upon d/c and at tempting to coordinate close follow-up with her PCP in [place]. Patient does not drive and is awareof seizure precautions moving forward. Medically stable for d/c to home today as long as patient can ambulate in hallways independently. Pager: [phone] * Lety Benítez MD - 11/07/2018 8:35 AM EDT ICU TRANSFER CHECKLIST Transfer Med Reconciliation (resume home meds if able, convert to PO if able) Complete Antibiotics (name, indication, duration, convert to PO if able) None Steroid (indication, duration, convert to PO if able) None Anticipated Tome Medications (ICU initiated) or Dose Changes and Indication Dose of keppra was adjusted per neurology. Permanently Discontinued Home Medications and Reason for medication contraindication No Law Catheter (please remove if able) No Central Line (please remove if able) No Transfer Discussed with: Dr. Sarabia/Med B If additional questions for ICU team within 24 hours of ICU transfer, page [phone] for clarifications. * Lety Benítez MD - 11/07/2018 6:42 AM EDT Critical Care Progress Note 11/07/2018 6:43 AM Subjective: Admit Date: 11/05/2018 PCP: GALI Del Castillo History: Very odd affect. Oriented to year but not month. Oriented to state but unable to name any city or town. Has no recollection of events leading to seizures. Unable to state if she has ever been to a specialized seizure clinic. Diet: Diet NPO Effective Now Exceptions are: Other (See Comment), Ice Chips, Sips with Meds Medications: Scheduled Meds: amLODIPine 10 mg Oral Daily topiramate 25 mg Oral BID sodium chloride flush 10 mL Intravenous 2 times per day enoxaparin 40 mg Subcutaneous Daily phenytoin (DILANTIN) maintenance dose IVPB 150 mg Intravenous Q12H levetiracetam 1,500 mg Intravenous Q12H Continuous Infusions: Objective: Vitals: Temp (24hrs), Av.1 F (36.7 C), Min:97.6 F (36.4 C), Max:98.7 F (37.1 C) BP 125/79 Pulse 70 Temp 97.8 F (36.6 C) (Temporal) Resp 22 Ht 5' 8 (1.727 m) Wt 268 lb 15.4 oz (122 kg) SpO2 96% BMI 40.90 kg/m I/O: 11/06 0701 - 11/07 0700 In: 547 [I.V.:487] Out: 1800 [Urine:1800] CVP: Physical Exam General Appearance: []WDWN [x]Obese []Cachectic []Thin []ill Skin: Temperature [x]Warm []Cool / Rash []Yes [x]No / Tattoo(s) []Yes []No Heent: Pupils round and react [x]Yes []No Sclera []Icteric [x]Non-Icteric Conjunctiva []Injected [x]Non-Injected / Pinnae [x]Normal []Other/ Dentitian [][place] Teeth []Dentures Oral Mucosa [x][place] [x]Moist []Dry/ Oral ETT []Present [x]Absent Neck: Trachea midline [x]Yes []No/ Thyromegaly []Yes []No/ Crepitus []Present [x]Absent /Jvd []Present []Absent Lungs: [x]Clear []Crackles []Wheezes []Rhonchi / Respiratory effort []Labored [x]Non-Labored Heart: [x]RRR []Irregularly Irregular []murmur present []murmur absent/ Peripheral Edema [x]Absent []Present Abdomen: [x]Soft Bowel Sounds []Present []Absent []Diminished []Hyperactive []Hypoactive []Tender []Non-Tender []Distended [x]Non-distended / Hernia []Present []Absent / Organomegaly [x]Absent []Present/ []Scar Extremities: Cyanosis []Present [x]Absent/ BALLARD ([x]RUE [x]RLE [x]LUE [x]LLE) Neurologic: PICAYUNE []Yes [x]No Corneal reflexes []Present []Absent / Plantar reflexes []Up []Down []Absent / Withdraws to tactile [x]Yes []No/ Follows Commands [x]Yes []No []Unresponsive to verbal Psych: Alert [x]yes []no Oriented []x0 []x1 []x2 []x3 / Affect []Normal []Flat []Aggitated []Calm []Sedated [x]NAD BMP: Recent Labs 11/05/18 1334 11/06/18 0033 11/07/18 0442 NA 138 137 138 K 4.3 4.0 3.5 CL 104 104 106 CO2 25 27 23 BUN 6* 5* 6* CREATININE 0.93 0.79 0.78 GLUCOSE 150* 124* 85 . Ionized Calcium: Lab Results Component Value Date IONCA 4.40 06/20/2018 IONCA 4.00 06/19/2018 Hepatic: Recent Labs 11/05/18 1334 AST 50* ALT 28 BILITOT 0.2 ALKPHOS 129* Troponin: No results for input(s): TROPONINI in the last 72 hours. Lactate: Lab Results Component Value Date LACTA 1.6 11/05/2018 LACTA 0.7 06/18/2018 LACTA 0.6 10/10/2017 ABG: No results for input(s): PH, PCO2, PO2 in the last 72 hours. CBC: Recent Labs 11/06/18 0033 11/07/18 0442 WBC 11.9* 8.4 HGB 10.0* 10.1* PLT 268 230 PROCALCITONIN: Recent Labs 11/05/18 1334 PROCAL 0.17* Films: CXR portable: Results for orders placed during the hospital encounter of 11/05/18 XR CHEST PORTABLE Narrative Patient Name: MARY CLAUDIO ---Diagnostic Radiology--- Exam Date/Time 11/05/2018 15:11:22 EDT Exam CR Chest Portable Ordering Physician CHUNG ROBLEDO Accession Number [id number] CPT4 Codes 98509 () Reason For Exam Respiratory failure Report Clinical indications: Respiratory failure FINDINGS: A single view is submitted and compared with a prior exam from 06/19/2018. NG tube projects off bottom of film. ET tube remains in satisfactory position, approximately 2.5 cm from the sidney. The cardiomediastinal silhouette is stable and unremarkable. Lungs appear clear, with no definitive evidence of infiltrate, effusion, CHF or pneumothorax. Osseous and soft tissue structures are intact. IMPRESSION: Satisfactory position and appearance of life-support appliances, no other evidence of acute process or interval change. Report Dictated on --- Final --- Dictated: 11/05/2018 2:16 pm Dictating Physician: MD EDWARDS RUSSELL Signed Date and Time: 11/05/2018 2:19 pm Signed by: MD EDWARDS RUSSELL Transcribed Date and Time: 11/05/2018 2:16 A: 1. Status epilepticus 2. Leukocytosis: resolved 3. Morbid obesity P: 1. Remove TLC. 2. Remove law. 3. Continue current AED. Change keppra to PO. 4. Will need to go to specialty seizure clinic at or [facility] to examine neurosurgical options. 5. Ok for floor. MS improved today, though very poor memory/insight. Unclear baseline. Prophylaxis: Stress ulcer: [] PPI Agent [] H2RA [] Sucralfate [] Other: VTE: [x] Enoxaparin [] SC Heparin [] SCD Full Code * Aaliyah Acuna RN - 11/06/2018 11:55 PM EDT Patients original wristband found when doing bed change, discarded into trash as patient has new one on left wrist. * Aaliyah Acuna RN - 11/06/2018 8:34 PM EDT New wristband arrived and was placed on patients left wrist. * Aaliyah Acuna RN - 11/06/2018 8:12 PM EDT Just went in to assess patient and could not find patient wristband on patient or anywhere in the bed. Patient verified her name and I am ordering a new wristband now. * Lety Benítez MD - 11/06/2018 5:25 PM EDT Critical Care Progress Note 11/06/2018 5:29 PM Subjective: Admit Date: 11/05/2018 PCP: GALI Del Castillo History: No active seizure on EEG, does have a focus. Tolerated SBT and mostly more alert. Diet: Diet NPO Effective Now Exceptions are: Other (See Comment), Ice Chips, Sips with Meds Medications: Scheduled Meds: amLODIPine 10 mg Oral Daily topiramate 25 mg Oral BID sodium chloride flush 10 mL Intravenous 2 times per day enoxaparin 40 mg Subcutaneous Daily phenytoin (DILANTIN) maintenance dose IVPB 150 mg Intravenous Q12H levetiracetam 1,500 mg Intravenous Q12H Continuous Infusions: Objective: Vitals: Temp (24hrs), Av.7 F (37.1 C), Min:98.3 F (36.8 C), Max:99 F (37.2 C) BP (!) 143/96 Pulse 81 Temp 98.4 F (36.9 C) (Temporal) Resp 25 Ht 5' 8 (1.727 m) Wt 268 lb 15.4 oz (122 kg) SpO2 96% BMI 40.90 kg/m I/O: 11/05 700 - 11/06 699 In: 1998 [I.V.:1998] Out: 2099 [Urine:2100] CVP: ETT D#1 Ventilator Settings: Vent Mode: AC/VC+ Rate Set: 1 bmp Vt Ordered: 450 mL Pressure Support: 0 cmH20 PEEP/CPAP: 8 FiO2 : 40 % Physical Exam General Appearance: []WDWN [x]Obese []Cachectic []Thin []ill Skin: Temperature [x]Warm []Cool / Rash []Yes [x]No / Tattoo(s) []Yes []No Heent: Pupils round and react [x]Yes []No Sclera []Icteric [x]Non-Icteric Conjunctiva []Injected [x]Non-Injected / Pinnae [x]Normal []Other/ Dentitian [][place] Teeth []Dentures Oral Mucosa [x][place] [x]Moist []Dry/ Oral ETT [x]Present []Absent Neck: Trachea midline [x]Yes []No/ Thyromegaly []Yes []No/ Crepitus []Present [x]Absent /Jvd []Present []Absent Lungs: [x]Clear []Crackles []Wheezes []Rhonchi / Respiratory effort []Labored [x]Non-Labored Heart: [x]RRR []Irregularly Irregular []murmur present []murmur absent/ Peripheral Edema [x]Absent []Present Abdomen: [x]Soft Bowel Sounds []Present []Absent []Diminished []Hyperactive []Hypoactive []Tender []Non-Tender []Distended [x]Non-distended / Hernia []Present []Absent / Organomegaly [x]Absent []Present/ []Scar Extremities: Cyanosis []Present [x]Absent/ BALLARD ([x]RUE [x]RLE [x]LUE [x]LLE) Neurologic: PICAYUNE []Yes [x]No Corneal reflexes []Present []Absent / Plantar reflexes []Up []Down []Absent / Withdraws to tactile [x]Yes []No/ Follows Commands [x]Yes []No []Unresponsive to verbal Psych: Alert []yes [x]no Oriented []x0 []x1 []x2 []x3 / Affect []Normal [x]Flat []Aggitated []Calm []Sedated []NAD BMP: Recent Labs 11/05/18 1334 11/06/18 0033 NA 138 137 K 4.3 4.0 CL 104 104 CO2 25 27 BUN 6* 5* CREATININE 0.93 0.79 GLUCOSE 150* 124* . Ionized Calcium: Lab Results Component Value Date IONCA 4.40 06/20/2018 IONCA 4.00 06/19/2018 Hepatic: Recent Labs 11/05/18 1334 AST 50* ALT 28 BILITOT 0.2 ALKPHOS 129* Troponin: No results for input(s): TROPONINI in the last 72 hours. Lactate: Lab Results Component Value Date LACTA 1.6 11/05/2018 LACTA 0.7 06/18/2018 LACTA 0.6 10/10/2017 ABG: No results for input(s): PH, PCO2, PO2 in the last 72 hours. CBC: Recent Labs 11/05/18 1334 11/06/18 0033 WBC 16.4* 11.9* HGB 11.0* 10.0* PLT 282 268 PROCALCITONIN: Recent Labs 11/05/18 1334 PROCAL 0.17* Films: CXR portable: Results for orders placed during the hospital encounter of 11/05/18 XR CHEST PORTABLE Narrative Patient Name: MARY CLAUDIO ---Diagnostic Radiology--- Exam Date/Time 11/05/2018 15:11:22 EDT Exam CR Chest Portable Ordering Physician [id number] SORIANO Accession Number [id number] CPT4 Codes 22862 () Reason For Exam Respiratory failure Report Clinical indications: Respiratory failure FINDINGS: A single view is submitted and compared with a prior exam from 06/19/2018. NG tube projects off bottom of film. ET tube remains in satisfactory position, approximately 2.5 cm from the sidney. The cardiomediastinal silhouette is stable and unremarkable. Lungs appear clear, with no definitive evidence of infiltrate, effusion, CHF or pneumothorax. Osseous and soft tissue structures are intact. IMPRESSION: Satisfactory position and appearance of life-support appliances, no other evidence of acute process or interval change. Report Dictated on --- Final --- Dictated: 11/05/2018 2:16 pm Dictating Physician: MD EDWARDS RUSSELL Signed Date and Time: 11/05/2018 2:19 pm Signed by: MD EDWARDS RUSSELL Transcribed Date and Time: 11/05/2018 2:16 A: 1. Acute respiratory failure 2. Status epilepticus 3. Leukocytosis: improved, likely reactive 4. Morbid obesity P: 1. Extubation. 2. Advance to sips/meds. Advance further as pt becomes more alert. 3. Neuro recs noted, will need outpt referral to [facility] or seizure center for consideration of neurosurgical intervention. 4. lovenox prophy Prophylaxis: Stress ulcer: [] PPI Agent [] H2RA [] Sucralfate [] Other: VTE: [x] Enoxaparin [] SC Heparin [] SCD Total critical care time caring for this patient with life threatening, unstable organ failure, including direct patient contact, management of life support systems, review of data including imaging and labs, discussions with other team members and physicians at least 35 minutes so far today, excluding procedures. Full Code * Viola Jacome, 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 - 11/06/2018 2:18 PM EDT PROGRESS NOTE. NEUROCRITICAL CARE Patient Name:Mary Claudio Patient : 1985 Acct: [id number] Date of Admission: 11/05/2018 Room/Bed: T322/Y76641 PCP: GALI HIDALGO Patient location ICU Remains in the hospital due to persistent unresolved acute issues, Subjective:33 year old woman with hx of epilepsy. Per ED note she missed a pm dose of her AED regimen and had seizure. She required high doses of ativan/ versed to break seizure an drequired intubation. She has had multiple hospital admissions for seizure in the past New Complaint:More awake. Moving all extremities today Sedation:No Diet/TF:NPO Law: Yes VTE prophylaxis: YES Lovenox Activity: Bed rest Disposition: TBD, likely home when medically appropriate Current Hospital Medications: Current Facility-Administered Medications: sodium chloride flush 0.9 % injection 10 mL, 10 mL, Intravenous, 2 times per day, Chung Mon DO, 10 mL at 11/06/18 0757 sodium chloride flush 0.9 % injection 10 mL, 10 mL, Intravenous, PRN, Chung Mon DO magnesium hydroxide (MILK OF MAGNESIA) 400 MG/5ML suspension 30 mL, 30 mL, Oral, Daily PRN, Chung Mon DO ondansetron (ZOFRAN) injection 4 mg, 4 mg, Intravenous, Q6H PRN, Chung Mon DO enoxaparin (LOVENOX) injection 40 mg, 40 mg, Subcutaneous, Daily, Chung Mon DO, 40 mg at 11/06/18 0757 midazolam (VERSED) 100 mg in dextrose 5 % 100 mL infusion, 1 mg/hr, Intravenous, Continuous, DO Yolis, Stopped at 11/06/18 0800 lactated ringers infusion, , Intravenous, Continuous, Chung Mon DO, Last Rate: 100 mL/hr at 11/06/18 0025 topiramate (TOPAMAX) tablet 25 mg, 25 mg, Per G Tube, BID, Lety Benítez MD, 25 mg at 11/06/18 0759 phenytoin (DILANTIN) 150 mg in sodium chloride 0.9 % 100 mL IVPB (maintenance dose), 150 mg, Intravenous, Q12H, Lety Benítez MD, Stopped at 11/06/18 0450 levETIRAcetam (KEPPRA) 1,500 mg in sodium chloride 0.9 % 100 mL IVPB, 1,500 mg, Intravenous, Q12H, Viola Jacome, 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, Stopped at 11/06/18 0355 Continuous Infusions: midazolam Stopped (11/06/18 0800) lactated ringers 100 mL/hr at 11/06/18 0025 Allergies: Naproxen ROS: Unable to obtain complete ROSsecondary to Intubation Review of Systems Objective: Telemetry: Arrhythmia:No Physical Examination: Patient Vitals for the past 8 hrs: BP Temp Temp src Pulse Resp SpO2 Height Weight 11/06/18 1300 (!) 151/91 84 15 99 % 11/06/18 1250 82 10 98 % 11/06/18 1200 (!) 155/102 82 14 100 % 11/06/18 1113 5' 8 (1.727 m) 268 lb 15.4 oz (122 kg) 11/06/18 1106 5' 8 (1.727 m) 11/06/18 1100 (!) 149/103 98.7 F (37.1 C) Temporal 80 14 99 % 11/06/18 1055 80 18 100 % 11/06/18 1000 (!) 145/82 92 23 100 % 11/06/18 0900 (!) 151/99 96 24 98 % 11/06/18 0854 97 26 98 % 11/06/18 0800 (!) 146/99 87 14 99 % 11/06/18 0700 (!) 153/106 98.3 F (36.8 C) Temporal 94 15 99 % I/O last 3 completed shifts: In: 1998 [I.V.:1998] Out: 2099 [Urine:2100] General Physical Examination: General Physical Examination: General: intubated, opens eyes to voice HEENT:Normocephalic, atraumatic CV: S1+S2, RRR, no MRG. Pulm:CTA b/l, unlabored intubated Abdomen: Soft NT/ND. BS + Skin: Intact without ulcers, breakdowns or discoloration Extremities: normal with no edema or cyanosis Orthopedic limitation; N/A Pulses: Intact peripherally Carotid auscultation :No bruits Neurological Examination: Higher Functions: Mental Status Exam: Level of Alertness:opens eyes to voice and follows commands Orientation: intubated, can't talk Memory: intubated, can't talk Fund of Knowledge: intubated, can't talk Language: intubated, can't talk Dysarthria Intubated Cranial Nerves: -II Visual acuity: abnormal, limited due to patient unable to perform exam -II Visual kiran: poor reliability due to patient level ofconsciousness or structural limitation -III Pupils (~ 4 mm OD, 4 mm OU) equal, round, reactive to light -III-IV- Extraocular Movements: Not tracking -Nystagmus tracking -Saccades and pursuits tracking -V Facial sensation: normal Corneal's Intact bilateral -VII Facial strength: intact, no obvious asymmetry -VIII Hearing: intact -IX-X- Gag reflex Intubated -X Palate:intubated -XI Shoulder shrug: normal -XII Tongue movement: intubated Funduscopic Exam: normal Motor Examination: Tone after evaluation of 4 limbs, the following findings applied: normal -Bulk: normal -Muscle Stretchafter evaluation of all limbs, and axial musculature the following findings applied: Drift: some drift noted. PT able to move all extremities today but remains weak . -Reflexes: after evaluation of 4 limbs, the following findings applied ; . -Plantar responce: Flexor bilaterally Sensory patient unable to assist with exam due toaphasia,level of consciousness, cognition or poor participation, Coordination: Arms patient unable to perform test due to sedation, paralysis or limb orthopedic circumstances Legs patient unable to perform testdue to sedation, paralysis or limb orthopedic circumstances Tremors not present Gait abnormal, patient unable to walk due to acute circumstances / bedrest / safety concerns ANCILLARY Last 24hrs Recent Results (from the past 24 hour(s)) Add On Lab Test Collection Time: 11/05/18 3:07 PM Result Value Ref Range Add On Rejected NA PHENYTOIN LEVEL, TOTAL Collection Time: 11/05/18 3:42 PM Result Value Ref Range Phenytoin Lvl 3.5 (L) 10.0 - 20.0 ug/mL Basic Metabolic Panel w/ Reflex to MG Collection Time: 11/06/18 12:33 AM Result Value Ref Range Sodium 137 135 - 145 mmol/L Potassium 4.0 3.5 - 5.1 mmol/L Chloride 104 98 - 107 mmol/L CO2 27 22 - 30 mmol/L Anion Gap 7 NA Glucose 124 (H) 70 - 100 mg/dL BUN 5 (L) 7 - 20 mg/dL CREATININE 0.79 0.52 - 1.25 mg/dL eGFR >60.0 >60 mL/min EGFR IF NonAfrican Peruvian >60.0 >60 mL/min Calcium 8.8 8.4 - 10.4 mg/dL CBC auto differential Collection Time: 11/06/18 12:33 AM Result Value Ref Range WBC 11.9 (H) 3.6 - 10.7 10*3/uL RBC 4.05 3.80 - 5.20 10*6/uL Hemoglobin 10.0 (L) 11.7 - 16.0 g/dL Hematocrit 30.7 (L) 35.0 - 47.0 % MCV 75.9 (L) 79.0 - 98.0 fL MCH 24.6 (L) 26.0 - 34.0 pg MCHC 32.4 32.0 - 36.0 % RDW 15.3 (H) 11.5 - 14.5 % Platelets 268 140 - 440 10*3/uL MPV 9.7 7.4 - 10.4 fL Granulocytes % 84.8 (H) 40.0 - 80.0 % Lymphocyte % 8.5 (L) 20.0 - 40.0 % Monocytes 6.4 2.0 - 10.0 % Eosinophils 0.0 (L) 1.0 - 6.0 % Basophils 0.3 0.0 - 2.0 % Absolute Neut # 10.1 (H) 1.8 - 7.0 10*3/uL Absolute Lymph # 1.0 1.0 - 4.3 10*3/uL Absolute [place] # 0.8 0.0 - 0.8 10*3/uL Absolute Eos # 0.0 0.0 - 0.5 10*3/uL Absolute Baso # 0.0 0.0 - 0.2 10*3/uL Magnesium Collection Time: 11/06/18 12:33 AM Result Value Ref Range Magnesium 2.0 1.6 - 2.3 mg/dL Phosphorus Collection Time: 11/06/18 12:33 AM Result Value Ref Range Phosphorus 3.5 2.5 - 4.5 mg/dL Antiepileptic levels: Recent Labs 11/05/18 [address]5* CT Head 11/05: IMPRESSION: Mild parenchymal volume loss more on the left. Prominent CSF space versus tiny remote left external capsule lacunar infarct. No evidence of acute intracranial process. EEG 11/05: Impression: This abnormal EEG is consistent with potential epileptogenicity in the right frontal region as well as right hemispheric dysfunction. There was also evidence for severe generalized nonspecific cerebral dysfunction. No clear seizures were recorded. ASSESSMENT Status epilepticus- resolved VDRF-likely extubate today Lactic acidosis- resolved Morbid obesity PLAN/RECOMMENDATIONS: -continue current AED therapy -recheck phenytoin level 910 am -tolerating SBT at this time, likely extubate today -no clear seizure noted on EEG, however there was noted to be epileptogenicity in the right frontalregion. With her history of breakthrough seizure and a focal area of disturbance it would be reasonable to follow up with general neurology as an outpatient to discuss having an evaluation for futuresurgical intervention -f/u with her neurologist as soon as possible. No further recommendations from neurology at this time. We will follow peripherally. Please call with any questions or concerns. Patient seen and discussed with Dr. Dickey * Elena Lang RCP - 11/06/2018 1:45 PM EDT PT extubated to 4lpm NC. Voice intact and no distress or stridor noted. R.N at bedside. Pt has a strong productive cough for small clear thick secretions. * Gloria Zee RD, LD - 11/06/2018 11:22 AM EDT Nutrition Assessment Type and Reason for Visit: Initial, Consult Nutrition Recommendations: 1. Presently, pt. NPO without nutrition intervention and should not remain without nutrition >72hours. 2. Pt. With history of seizures - with Dilantin IVPB. 3. Recommend Acute Lung Injury/Glucerna 1.5@ goal rate 40ml/hour = 1440cal/79gPro/728ml free water = 12cal/kg ABW and 1.2gPro/kg IBW. 4. Continue to monitor and follow weekly. Nutrition Assessment: Pt. intubated at this time, without Propofol; Pt. with history of cognitive deficient, depression, HTN, MRSA, obesity, seizure D/O, status epilepticus; Dilantin IVPB Malnutrition Assessment: Malnutrition Status: Insufficient data Context: Acute illness or injury Findings of the 6 clinical characteristics of malnutrition (Minimum of 2 out of 6 clinical characteristics is required to make the diagnosis of moderate or severe Protein Calorie Malnutrition based on AND/ASPEN Guidelines): 1. Energy Intake-Unable to assess, Unable to assess 2. Weight Loss-Unable to assess, unable to assess 3. Fat Loss-Unable to assess, 4. Muscle Loss-Unable to assess, 5. Fluid Accumulation-Unable to assess, 6. Cadet Deck Strength-Not measured Nutrition Risk Level: High Nutrient Needs: Estimated Daily Total Kcal: 11-14cal/kg ABW = 1342 - 1708cal/day (BMI 30 - 50: Per ASPEN GUIDELINESFOR OBESITY IN CRITICAL CARE: 11-14cal/kg ABW) Estimated Daily Protein (g): 1.2 - 1.4g/kg IBW (63.5kg) = 76 - 89g/day Estimated Daily Total Fluid (ml/day): 2223ml or MD order Nutrition Diagnosis: Problem: Inadequate energy intake Etiology: related to Impaired respiratory function-inability to consume food ? Signs and symptoms: as evidenced by NPO status due to medical condition Objective Information: Nutrition-Focused Physical Findings: +bowel sounds; generalized edema; Noted: Glu 124, BUN 5; Nikolai 16 Current Nutrition Therapies: Oral Diet Orders: NPO Oral Diet intake: NPO Oral Nutrition Supplement (ONS) Orders: None ONS intake: NPO Anthropometric Measures: Ht: 5' 8 (172.7 cm) Current Body Wt: 268 lb 15 oz (122 kg) Sims Body Wt: 140 lb (63.5 kg), % Sims Body 191% BMI Classification: BMI > or equal to 40.0 Obese Class III Nutrition Interventions: Continue NPO Continued Inpatient Monitoring Nutrition Evaluation: Evaluation: Goals set Goals: Pt. to receive nutrition within the next 48 hours. Monitoring: Nutrition Progression, Monitor Bowel Function, TF Intake, Monitor Hemodynamic Status, Pertinent Labs, Weight, I&O, Skin Integrity Contact Number: pager [phone] * Elena Lang RCP - 11/06/2018 11:00 AM EDT 11/06/18 1055 Spontaneous Breathing Trial (SBT) RT Doc Rate Measured 18 br/min Pulse 80 SpO2 100 % Spontaneous VT 311 mL RSBI Calculated 57.88 Pt did not tolerated tube comp. Placed on PSV 7/5 and tolerated well for 1hr. Pt does not stay awake long, but arouses easily. * Nayana Weaver RN - 11/05/2018 4:20 PM EDT Message left with neurology dept regarding potential need for continuous EEG. Will await response. documented in this encounter* Richard Huerta MD - 04/30/2019 8:01 AM EST Med Team Progress Note Mary Claudio : 1985(33 y.o.) Date: April 30, 2019 Med Team: A Attending: Dr. Woods Chief Complaint:Seizure Subjective: Ms. Claudio feeling well today. No acute events overnight. No complaints. Explained EEG findings topatient, but she did not seem to understand. Sent PNB to pill packets so she will have when she is discharged. Pt states she would like to go home to see her kids Review of Systems Constitutional: Negative for appetite change, chills, diaphoresis, fever and unexpected weight change. HENT: Negative for congestion, drooling, hearing loss, rhinorrhea, sore throat and trouble swallowing. Respiratory: Negative for cough, chest tightness, shortness of breath, wheezing and stridor. Cardiovascular: Negative for chest pain, palpitations and leg swelling. Gastrointestinal: Negative for abdominal distention, abdominal pain, blood in stool, constipation, diarrhea, nausea and vomiting. Endocrine: Negative for cold intolerance and heat intolerance. Genitourinary: Negative for dysuria, flank pain, frequency and urgency. Musculoskeletal: Negative for arthralgias and myalgias. Skin: Negative for color change, pallor and rash. Neurological: Negative for dizziness, weakness, light-headedness, numbness and headaches. Psychiatric/Behavioral: Negative for agitation and confusion. Scheduled Meds: ferrous sulfate 325 mg Oral Every Other Day sennosides-docusate sodium 2 tablet Oral BID PHENobarbital 97.2 mg Oral BID polyethylene glycol 17 g Oral Daily topiramate 100 mg Oral BID gabapentin 300 mg Oral BID levETIRAcetam 1,000 mg Oral BID amLODIPine 5 mg Oral Daily sodium chloride flush 10 mL Intravenous 2 times per day enoxaparin 40 mg Subcutaneous Daily sodium chloride flush 10 mL Intracatheter Q8H Continuous Infusions: PRN meds used in last 24hrs: melatonin Objective: BP 111/80 Pulse 67 Temp 97 F (36.1 C) (Temporal) Resp 16 Ht 5' 8 (1.727 m) Wt 285 lb 11.5 oz (129.6 kg) SpO2 97% BMI 43.44 kg/m Physical Exam Vitals signs reviewed. Constitutional: General: She is not in acute distress. Appearance: Normal appearance. She is well-developed. She is obese. HENT: Right Ear: External ear normal. Left Ear: External ear normal. Nose: Nose normal. Mouth/Throat: Mouth: Mucous membranes are moist. Pharynx: Oropharynx is clear. Neck: Musculoskeletal: Neck supple. No neck rigidity. Cardiovascular: Rate and Rhythm: Normal rate and regular rhythm. Heart sounds: No murmur. No friction rub. No gallop. Pulmonary: Effort: Pulmonary effort is normal. No respiratory distress. Breath sounds: Normal breath sounds. No wheezing. Abdominal: General: Bowel sounds are normal. Palpations: Abdomen is soft. There is no mass. Musculoskeletal: Right lower leg: No edema. Left lower leg: No edema. Neurological: Mental Status: She is alert and oriented to person, place, and time. Psychiatric: Mood and Affect: Mood and affect normal. Select Labs within last 24 hours Lab Results Component Value Date/Time WBC 5.9 04/30/2019 01:31 AM Hemoglobin 11.3 (L) 04/30/2019 01:31 AM Hematocrit 35.5 04/30/2019 01:31 AM Platelets 244 04/30/2019 01:31 AM MCV 78.6 (L) 04/30/2019 01:31 AM Lab Results Component Value Date/Time Sodium 136 04/30/2019 01:31 AM Potassium 3.7 04/30/2019 01:31 AM Chloride 107 04/30/2019 01:31 AM CO2 18 (L) 04/30/2019 01:31 AM BUN 10 04/30/2019 01:31 AM CREATININE 0.74 04/30/2019 01:31 AM Glucose 92 04/30/2019 01:31 AM Calcium 8.8 04/30/2019 01:31 AM Magnesium 1.9 04/30/2019 01:31 AM Phosphorus 4.6 (H) 04/30/2019 01:31 AM Assessment and Plan: Status Epilepticus in setting of poorly controlled seizure disorder -2 episodes of generalized tonic clonic seizures on 04/21 that lasted several minutes -At time of admission, pt had low phenytoin levels, unclear if difficulty obtaining meds or relatedto metabolism -Home AEDs include gabapentin 300 BID, keppra 1000 BID, phenytoin 150 BID, topiramate 100 BID -Neuro following, appreciate recs -AEDs as of now per neuro: gabapentin 300mg PO BID, keppra 1000mg PO BID, phenobarbital 97.2mg PO BID, and topamax 100mg PO BID -Phenobarbital level therapeutic 04/28 at 17.1 - Sent in medications to home pharmacy for pill-packaging yesterday 04/28 -PRN ativan for seizures - has not needed -Seizure precautions, fall precautions -CT head WNL -Repeat EEG 04/28- No epileptiform activity. Nonspecific generalized backround cerebral dysfunction. -Monitor electrolytes closely and replace as necessary HTN -Goal SBP <140 -BP this am 111/80 -Continue amlodipine 5mg PO daily (home dose 10mg) Cognitive Impairment - Per patient, assists w/ IADL's - Following up with immigration case manager regarding [facility] board visit for further services and behavioral health eval, also discussed another home visit at this new location - Psych following, appreciate recs - Pt still does not have capacity for medical decision making - Discussed outpatient plan with case-mortgage operations manager in [facility] - Ethics consulted for assistance Tobacco abuse -Tire Sorter on cessation Constipation -Glycolax 17g PO daily -Senna-S 2 tablets PO BID Microcytic anemia - MCV 79.0 - Hemoglobin 11.3, stable - No acute signs of bleeding - Ferritin 6, Iron 26, TIBC 288, and Sat 9 - Cont ferrous sulfate 325mg PO every other day - Checked vitamin B12 and folate - wnl Depression - On gabapentin and topamax for seizures, which may also help with mood Obesity - BMI 43.5 - Tire Sorter on diet/exercise NAGMA - Bicarb of 21 - On Topamax which can lead to metabolic acidosis - May be underlying component of ANIRUDH - Monitor on daily BMP DVT Prophylaxis: lovenox 40 q 24hr - creatinine clearance >30\ Associated attestation - Melody Woods MD - 04/30/2019 12:30 PM EST I have discussed the care of Mary Claudio with the medical student and/or resident. I have personally taken a history, examined the patient, and performed the associated medical decision making activities. I have reviewed & verified the attested documentation. Unless otherwise noted below,this documentation reflects the history, physical exam, and medical decision making that I performed myself. Please see below for my personal highlights or additions to the note. Patient seen and examined by myself on 04/30/19 No issues overnight. No seizures. EEG with no seizure activity. Per Neuro, ok to go home from [facility] on new regimen. Plan:-discharge home today -new medication changes have been called in to [facility] who does packaging of her medications. Will confirm with them to make sure they have new address. -will speak with patient's to review discharge plans -team has spoken with Spencer, her [place] immigration case manager, and she is aware of discharge plans. She willbe calling [facility] DD board to make a referral for Mary. She will also help coordinate her follow up appointments with neuro and PCP. -Once DD board has been involved, then any concerns about needing new guardian can be further addressed. -home health referral also placed I spent >50% of total time in counseling/discussion with patient/family and/or coordination of care with health care team, including: RN, TCC, Social work, and consultants,30 minutes. * Satish Fuentes MD - 04/29/2019 5:37 PM EST Called in phenobarbital 97.2 mg BIDto her pharmacy, 60 tabs 3 refills. DC'd Dilantin. Pager: [phone] * Richard Huerta MD - 04/29/2019 4:39 PM EST Called Spencer Gonzalez, pt's immigration case manager with [place]. Informed that pt will likely be discharged tomorrow 04/29. Spencer states she will contact [facility] tomorrow to request services. Will also help coordinate office visits w/ neurology and PCP outpatient. * Sharron Hill, COLOR PASTE MIXING SUPERVISOR - [facility] - 04/29/2019 8:26 AM EST PROGRESS NOTE. NEUROLOGY Patient Name:Mary Claudio Patient : 1985 Acct: [id number] Date of Admission: 04/21/2019 Room/Bed: [address] [place] [address] PCP: GALI HIDALGO Patient location ICU Remains in the hospital due to persistent unresolved acute issues, Subjective: 33F a PMH of epilepsy (on multiple AED's, non-compliant, multiple hospital admission for status epilepticus due to non-compliance,, HTN, obesity, depression presented to [facility] ER 04/21 from [facility] with status epilepticus. Dilantin level subtherapeutic. Required intubation. Transferred out to floor. Dilantin d/c and phenobarbital started. New Complaint: No further seizures. Phenobarbital level 17.1. Sedation:No Diet/TF: Regular Law: Yes VTE prophylaxis: YES Lovenox Antithrombotic therapy in first 24 hrs: Contraindicated because not stroke Statin therapy for stroke stroke patients: N/A, not stroke or LDL < 70 Anticoagulation on AF patients: N/A no history of AF Activity: As tolerated Disposition: TBD Current Hospital Medications: Current Facility-Administered Medications: ferrous sulfate tablet 325 mg, 325 mg, Oral, Every Other Day, Manoj Estrada MD, 325 mg at 04/28/19 0933 sennosides-docusate sodium (SENOKOT-S) 8.6-50 MG tablet 2 tablet, 2 tablet, Oral, BID, Manoj Estrada MD, 2 tablet at 04/28/192054 PHENobarbital (LUMINAL) tablet 97.2 mg, 97.2 mg, Oral, BID, Zoe Mills MD, 97.2 mg at 04/28/192055 polyethylene glycol (GLYCOLAX) packet 17 g, 17 g, Oral, Daily, Dary Corbin MD, 17 g at 04/28/19 0932 melatonin ER tablet 2 mg, 2 mg, Oral, Nightly PRN, Manoj Estrada MD, 2 mg at 04/28/192055 topiramate (TOPAMAX) tablet 100 mg, 100 mg, Oral, BID, Twan Can MD, 100 mg at 04/28/192055 gabapentin (NEURONTIN) capsule 300 mg, 300 mg, Oral, BID, Elio Huerta DO, 300 mg at 04/28/192054 levETIRAcetam (KEPPRA) tablet 1,000 mg, 1,000 mg, Oral, BID, Elio Huerta DO, 1,000 mg at 04/28/192054 amLODIPine (NORVASC) tablet 5 mg, 5 mg, Oral, Daily, Elio Huerta DO, 5 mg at 04/28/19932 LORazepam (ATIVAN) injection 2 mg, 2 mg, Intravenous, Q4H PRN, Elio Huerta DO sodium chloride flush 0.9 % injection 10 mL, 10 mL, Intravenous, 2 times per day, Elio Huerta DO, 10 mL at 04/28/19 0938 sodium chloride flush 0.9 % injection 10 mL, 10 mL, Intravenous, PRN, Elio Huerta DO acetaminophen (TYLENOL) tablet 650 mg, 650 mg, Oral, Q6H PRN, Elio Huerta DO, 650 mg at 04/27/192026 magnesium hydroxide (MILK OF MAGNESIA) 400 MG/5ML suspension 30 mL, 30 mL, Oral, Daily PRN, Elio Huerta DO promethazine (PHENERGAN) tablet 12.5 mg, 12.5 mg, Oral, Q6H PRN, Elio Huerta DO ondansetron (ZOFRAN) injection 4 mg, 4 mg, Intravenous, Q6H PRN, Elio Huerta DO enoxaparin (LOVENOX) injection 40 mg, 40 mg, Subcutaneous, Daily, Elio Huerta DO, 40 mg at 04/28/19 0933 sodium chloride flush 0.9 % injection 10 mL, 10 mL, Intracatheter, Q8H, Elio Huerta DO, 10 mL at 04/27/19 1233 Continuous Infusions: Allergies: Fluconazole and Naproxen Review of Systems Constitutional: Negative for fatigue. HENT: Negative for trouble swallowing and voice change. Eyes: Negative for visual disturbance. Respiratory: Negative for cough and shortness of breath. Cardiovascular: Negative for palpitations. Gastrointestinal: Negative for diarrhea and nausea. Genitourinary: Negative for dysuria. Musculoskeletal: Negative for back pain. Skin: Negative for pallor. Neurological: Negative for dizziness, tremors, seizures, syncope, facial asymmetry, speech difficulty, weakness, light-headedness, numbness and headaches. Psychiatric/Behavioral: Negative for decreased concentration. The patient is not nervous/anxious. Objective: Telemetry: Arrhythmia:No Physical Examination: Patient Vitals for the past 8 hrs: BP Temp Temp src Pulse Resp SpO2 04/29/19 0749 102/76 96.2 F (35.7 C) Temporal 62 16 96 % 04/29/19 0600 61 04/29/19 0515 118/80 96.9 F (36.1 C) Temporal 68 16 97 % 04/29/19 0400 65 04/29/19 0300 66 04/29/19 0200 69 04/29/19 0100 78 I/O last 3 completed shifts: In: 840 [P.O.:840] Out: - General Physical Examination: General: well nourished, well developed, obese and calm HEENT:Normocephalic, atraumatic CV: S1+S2, RRR, no MRG. Pulm:CTA b/l, unlabored Abdomen: Soft NT/ND. BS + Skin: Intact without ulcers, breakdowns or discoloration Extremities: normal with no edema or cyanosis Orthopedic limitation; N/A Pulses: Intact peripherally Carotid auscultation :No bruits Neurological Examination: Higher Functions: Mental Status Exam: Level of Alertness:Awake Orientation: A&Ox3 Memory: intact Fund of Knowledge: limited Language: intact Dysarthria not noted Cranial Nerves: -II Visual acuity: abnormal, limited due to patient unable to perform exam -II Visual kiran: normal -III Pupils (~ 3 mm OD, 3 mm OU) equal, round, reactive to light -III-IV- Extraocular Movements: intact -Nystagmus not present -Saccades and pursuits normal -V Facial sensation: intact Corneal's Intact bilateral -VII Facial strength: intact -VIII Hearing: intact -IX-X- Gag reflex present -X Palate:intact -XI Shoulder shrug: intact -XII Tongue movement: normal Motor Examination: Tone after evaluation of 4 limbs, the following findings applied: Normal -Bulk: normal -Muscle Stretchafter evaluation of all limbs, and axial musculature the following findings applied: Drift: absent, moves all extremities symmetrically -Reflexes: after evaluation of 4 limbs, the following findings applied ; Abnormal -Plantar responce: Flexor bilaterally Sensory Intact Coordination: Arms intact Legs intact Tremors not present Gait abnormal, patient unable to walk due to acute circumstances / bedrest / safety concerns ANCILLARY CT Head 04/21/19: Unremarkable noncontrast CT scan of the head. No evidence of acute intracranial process. EEG 04/22/19: Impression: This abnormal EEG is consistent with potential epileptogenicity in the left anterior to mid temporal region occurring in the context of bilateral independent left and right focal cerebral dysfunction in the anterior to mid temporal regions. The background is consistent with severe generalized nonspecific cerebral dysfunction. No clear seizures were recorded. EEG Continuous 04/25-04/26: Impression: This abnormal EEG is consistent with potential epileptogenicity in the right anterior to mid temporal region occurring in the context of a focal cerebral dysfunction in the same region. No clear seizures were recorded. Please note that the majority of this test was affected by artifact ASSESSMENT / PLAN/RECOMMENDATIONS: Status epilepticus - In setting of epilepsy, known non-compliance with AED's/sub-therapeutic levels, multiple hospitaladmissions due to same. Dilantin d/c and switched to phenobarbital to assure coverage if patient isindeed compliant with medications - Continue Gabapentin 300 BID, Keppra 1000mg BID, Topamax 100mg BID - Continue Phenobarbital 97.2mg BID (level 17.1) - Check EEG today - Maintain seizure precautions - Follow up with outpatient neurologist Non-compliance/Cognitive deficits - Social work/bilingual medical assistant to help patient establish with [facility] Board of to assistwith pt compliance - Ethics consulted HTN - Controlled - Per primary Will follow up and addend note with EEG. If no significant abnormality will sign off. Discussed with Dr. Dickey. NDUM 04/30/19 0716: EEG reviewed: Impression: This abnormal EEG is consistent with focal cerebral dysfunction in the right central parietal region as well as possible evidence for left hemispheric dysfunction. There was also evidence of a skull defect over the right centroparietal region. The background is consistent with severe generalized nonspecific cerebral dysfunction. No clear seizures or epileptiform activity were seen. Pt has been seizure free since admission. No epileptiform discharges or seizures on EEG. Continue meds as above. Dispo per primary team pending ethics consult. No further recs. Pt to follow up with her primary neurologist. Will sign off. * Richard Huerta MD - 04/29/2019 7:40 AM EST Med Team Progress Note Mary Claudio : 1985(33 y.o.) Date: April 29, 2019 Med Team: Randal Attending: Dr. Woods Chief Complaint:Seizure Subjective: Pt states she is feeling well this morning. No new seizure activity overnight. No ROD, vision changes, f/c/s, cp, SOB. Review of Systems Constitutional: Negative for appetite change, chills, diaphoresis, fever and unexpected weight change. HENT: Negative for hearing loss, rhinorrhea, sore throat and trouble swallowing. Eyes: Negative for photophobia and visual disturbance. Respiratory: Negative for cough, chest tightness, shortness of breath, wheezing and stridor. Cardiovascular: Negative for chest pain, palpitations and leg swelling. Gastrointestinal: Negative for abdominal distention, abdominal pain, blood in stool, constipation, diarrhea, nausea and vomiting. Endocrine: Negative for cold intolerance and heat intolerance. Musculoskeletal: Negative for arthralgias and myalgias. Skin: Negative for pallor and rash. Neurological: Negative for dizziness, weakness, light-headedness, numbness and headaches. Psychiatric/Behavioral: Negative for agitation and confusion. Scheduled Meds: ferrous sulfate 325 mg Oral Every Other Day sennosides-docusate sodium 2 tablet Oral BID PHENobarbital 97.2 mg Oral BID polyethylene glycol 17 g Oral Daily topiramate 100 mg Oral BID gabapentin 300 mg Oral BID levETIRAcetam 1,000 mg Oral BID amLODIPine 5 mg Oral Daily sodium chloride flush 10 mL Intravenous 2 times per day enoxaparin 40 mg Subcutaneous Daily sodium chloride flush 10 mL Intracatheter Q8H Continuous Infusions: PRN meds used in last 24hrs: melatonin Objective: BP 118/80 Pulse 61 Temp 96.9 F (36.1 C) (Temporal) Resp 16 Ht 5' 8 (1.727 m) Wt 285 lb 11.5 oz (129.6 kg) SpO2 97% BMI 43.44 kg/m Physical Exam Constitutional: Appearance: Normal appearance. She is normal weight. HENT: Mouth/Throat: Mouth: Mucous membranes are moist. Pharynx: Oropharynx is clear. No oropharyngeal exudate or posterior oropharyngeal erythema. Comments: Poor dentition Eyes: General: No scleral icterus. Conjunctiva/sclera: Conjunctivae normal. Pupils: Pupils are equal, round, and reactive to light. Cardiovascular: Rate and Rhythm: Normal rate. Pulses: Normal pulses. Pulmonary: Effort: Pulmonary effort is normal. No respiratory distress. Breath sounds: Normal breath sounds. No stridor. No wheezing or rales. Abdominal: General: Abdomen is flat. Bowel sounds are normal. There is no distension. Palpations: Abdomen is soft. There is no mass. Tenderness: There is no abdominal tenderness. There is no guarding. Skin: General: Skin is warm and dry. Coloration: Skin is not jaundiced. Neurological: General: No focal deficit present. Mental Status: She is oriented to person, place, and time. Mental status is at baseline. Cranial Nerves: No cranial nerve deficit. Sensory: No sensory deficit. Motor: No weakness. Gait: Gait normal. Psychiatric: Mood and Affect: Mood normal. Behavior: Behavior normal. Thought Content: Thought content normal. Judgment: Judgment normal. [facility] within last 24 hours Lab Results Component Value Date/Time WBC 5.3 04/29/2019 04:51 AM Hemoglobin 10.9 (L) 04/29/2019 04:51 AM Hematocrit 34.5 (L) 04/29/2019 04:51 AM Platelets 227 04/29/2019 04:51 AM MCV 79.0 04/29/2019 04:51 AM Lab Results Component Value Date/Time Sodium 137 04/29/2019 04:52 AM Potassium 4.1 04/29/2019 04:52 AM Chloride 109 (H) 04/29/2019 04:52 AM CO2 21 (L) 04/29/2019 04:52 AM BUN 11 04/29/2019 04:52 AM CREATININE 0.75 04/29/2019 04:52 AM Glucose 94 04/29/2019 04:52 AM Calcium 8.5 04/29/2019 04:52 AM Magnesium 1.9 04/29/2019 04:52 AM Phosphorus 3.9 04/29/2019 04:52 AM Lab Results Component Value Date/Time AST 26 04/28/2019 04:20 PM ALT 34 04/28/2019 04:20 PM Total Protein 6.9 04/28/2019 04:20 PM Albumin,Serum 3.6 04/28/2019 04:20 PM Total Bilirubin 0.2 04/28/2019 04:20 PM Alkaline Phosphatase 98 04/28/2019 04:20 PM Assessment and Plan: Status Epilepticus in setting of poorly controlled seizure disorder -2 episodes of generalized tonic clonic seizures on 04/21 that lasted several minutes -At time of admission, pt had low phenytoin levels, unclear if difficulty obtaining meds or relatedto metabolism -Home AEDs include gabapentin 300 BID, keppra 1000 BID, phenytoin 150 BID, topiramate 100 BID -Neuro following, appreciate recs -AEDs as of now per neuro: gabapentin 300mg PO BID, keppra 1000mg PO BID, phenobarbital 97.2mg PO BID, and topamax 100mg PO BID -Phenobarbital level therapeutic today at 17.1 -PRN ativan for seizures - has not needed -Seizure precautions, fall precautions -CT head WNL -Plan for repeat EEG on Monday -Monitor electrolytes closely and replace as necessary (Mg normal at 1.9, K+ 4.1 -- replaced yesterday) HTN -Goal SBP <140 -BP this am 118/80 -Continue amlodipine 5mg PO daily (home dose 10mg) Cognitive Impairment -Per patient, assists w/ IADL's -Following up with immigration case manager regarding [facility] board visit for further services and behavioral health jeffandre, also discussed another home visit at this new location -Psych following, appreciate recs - Pt still does not have capacity for medical decision making - Will need to f/u with immigration case manager regarding in-home counseling, pt's mailing prescriptions if okat new address; f/u with [facility] in [facility] to discuss pt's tx and compliance; meeting with family - Ethics consulted for assistance Tobacco abuse -Tire Sorter on cessation Constipation -Glycolax 17g PO daily -Senna-S 2 tablets PO BID Microcytic anemia - MCV 79.0 - Hemoglobin 10.9, relatively stable - No acute signs of bleeding - Ferritin 6, Iron 26, TIBC 288, and Sat 9 - Cont ferrous sulfate 325mg PO every other day - Checked vitamin B12 and folate - wnl Depression - On gabapentin and topamax for seizures, which may also help with mood Obesity - BMI 43.5 - Tire Sorter on diet/exercise NAGMA - Bicarb of 21 - Topamax can lead to metabolic acidosis - May be underlying component of ANIRUDH - Monitor on daily BMP DVT Prophylaxis: lovenox 40 q 24hr - creatinine clearance >30 Associated attestation - Melody Woods MD - 04/29/2019 4:48 PM EST I have discussed the care of Mary Claudio with the medical student and/or resident. I have personally taken a history, examined the patient, and performed the associated medical decision making activities. I have reviewed & verified the attested documentation. Unless otherwise noted below,this documentation reflects the history, physical exam, and medical decision making that I performed myself. Please see below for my personal highlights or additions to the note. Patient seen and examined by myself on 04/29/19 No new issues overnight. No seizures. Eating lunch, appetite good. She has been ambulating in room.Says she's a little wobbly but otherwise has been ok. Awaiting repeat EEG now that she is therapeutic on phenobarbital. Discussed case with ethics community resource consultant. It appears from conversations with the patient's [place] immigration case manager that during her home visits, she has not been concerned about the 's care of the patient and her CM is involved with them closely. At this time the patient's health is not in acute danger, so no acute reason to keep her here and pursue guardianship. However, it is highly recommended that she follow up with the DD board in [facility] to follow up and if need for guardianship arises, they can continue the process. Plan:-follow up on EEG results -work on discharge planning to make changes to her packaged medications to include the changes madehere. -will update Spencer, her [place] CM of her discharge plans and need to have follow up with PCP, neurologist and [facility] DD board, so Spencer can help facilitate this follow up. -will update her with changes and recommended follow up plans -Home health care referral. -home once above issues are all addressed, likely later today or tomorrow. I spent >50% of total time in counseling/discussion with patient/family and/or coordination of care with health care team, including: RN, Social work, and consultants,30 minutes. * Zoe Mills MD - 04/28/2019 3:10 PM EST PROGRESS NOTE. NEUROLOGY Patient Name:Mary Claudio Patient : 1985 Acct: [id number] Date of Admission: 04/21/2019 Room/Bed: [facility]/[id number] PCP: GALI HIDALGO Patient location ICU Remains in the hospital due to persistent unresolved acute issues, Subjective: 33F a PMH of epilepsy (on multiple AED's, non-compliant, multiple hospital admission for status epilepticus due to non-compliance,, HTN, obesity, depression presented to [facility] ER 04/21 from [facility] with status epilepticus. Dilantin level subtherapeutic. Required intubation. Transferred out to floor. Now in the process of optimization of phenobarbital after stopping the dilantin and ensuring tolerability prior to discharge New Complaint: Phenobarbital level 16.7 Increment has been 5.5 / 9.9/ 12.7 / 16.7 Dose decreased yesterday to 97.2 BID , She seems to be tolerating , very awake and alert this morning just like yesterday She was asking to go home , Sedation:No Diet/TF: Regular Law: Yes VTE prophylaxis: YES Lovenox Antithrombotic therapy in first 24 hrs: Contraindicated because not stroke Statin therapy for stroke stroke patients: N/A, not stroke or LDL < 70 Anticoagulation on AF patients: N/A no history of AF Activity: As tolerated Disposition: TBD Current Hospital Medications: Current Facility-Administered Medications: ferrous sulfate tablet 325 mg, 325 mg, Oral, Every Other Day, Manoj Estrada MD, 325 mg at 04/28/19932 sennosides-docusate sodium (SENOKOT-S) 8.6-50 MG tablet 2 tablet, 2 tablet, Oral, BID, Manoj Estrada MD, 2 tablet at 04/28/19932 PHENobarbital (LUMINAL) tablet 97.2 mg, 97.2 mg, Oral, BID, Zoe Mills MD, 97.2 mg at 04/28/19932 polyethylene glycol (GLYCOLAX) packet 17 g, 17 g, Oral, Daily, Dary Corbin MD, 17 g at 04/28/19931 melatonin ER tablet 2 mg, 2 mg, Oral, Nightly PRN, Manoj Estrada MD, 2 mg at 04/26/191958 topiramate (TOPAMAX) tablet 100 mg, 100 mg, Oral, BID, Twan Can MD, 100 mg at 04/28/19932 gabapentin (NEURONTIN) capsule 300 mg, 300 mg, Oral, BID, Elio Huerta DO, 300 mg at 04/28/19931 levETIRAcetam (KEPPRA) tablet 1,000 mg, 1,000 mg, Oral, BID, Elio Huerta DO, 1,000 mg at 04/28/19931 amLODIPine (NORVASC) tablet 5 mg, 5 mg, Oral, Daily, Elio Huerta DO, 5 mg at 04/28/19932 LORazepam (ATIVAN) injection 2 mg, 2 mg, Intravenous, Q4H PRN, Elio Huerta DO sodium chloride flush 0.9 % injection 10 mL, 10 mL, Intravenous, 2 times per day, Elio Huerta DO, 10 mL at 04/28/19 0938 sodium chloride flush 0.9 % injection 10 mL, 10 mL, Intravenous, PRN, Elio Huerta DO acetaminophen (TYLENOL) tablet 650 mg, 650 mg, Oral, Q6H PRN, Elio Huerta DO, 650 mg at 04/27/19 2027 magnesium hydroxide (MILK OF MAGNESIA) 400 MG/5ML suspension 30 mL, 30 mL, Oral, Daily PRN, Elio Huerta DO promethazine (PHENERGAN) tablet 12.5 mg, 12.5 mg, Oral, Q6H PRN, Elio Huerta DO ondansetron (ZOFRAN) injection 4 mg, 4 mg, Intravenous, Q6H PRN, Elio Huerta DO enoxaparin (LOVENOX) injection 40 mg, 40 mg, Subcutaneous, Daily, Elio Huerta DO, 40 mg at 04/28/19 0933 sodium chloride flush 0.9 % injection 10 mL, 10 mL, Intracatheter, Q8H, Elio Huerta DO, 10 mL at 04/27/19 1233 Continuous Infusions: Allergies: Fluconazole and Naproxen Review of Systems Constitutional: Positive for fatigue. HENT: Negative for trouble swallowing and voice change. Eyes: Negative for visual disturbance. Respiratory: Negative for cough and shortness of breath. Cardiovascular: Negative for palpitations. Gastrointestinal: Negative for diarrhea and nausea. Genitourinary: Negative for dysuria. Musculoskeletal: Negative for back pain. Skin: Negative for pallor. Neurological: Negative for dizziness, tremors, seizures, syncope, facial asymmetry, speech difficulty, weakness, light-headedness, numbness and headaches. Psychiatric/Behavioral: Negative for decreased concentration. The patient is not nervous/anxious. Objective: Telemetry: Arrhythmia:No Physical Examination: Patient Vitals for the past 8 hrs: BP Temp Temp src Pulse Resp SpO2 04/28/19 1202 133/70 97.9 F (36.6 C) Temporal 65 16 97 % 04/28/19 0759 115/80 97.9 F (36.6 C) Temporal 61 16 98 % I/O last 3 completed shifts: In: 1800 [P.O.:1800] Out: - General Physical Examination: General: well nourished, well developed, obese and calm HEENT:Normocephalic, atraumatic CV: S1+S2, RRR, no MRG. Pulm:CTA b/l, unlabored Abdomen: Soft NT/ND. BS + Skin: Intact without ulcers, breakdowns or discoloration Extremities: normal with no edema or cyanosis Orthopedic limitation; N/A Pulses: Intact peripherally Carotid auscultation :No bruits Neurological Examination: Higher Functions: Mental Status Exam: Level of Alertness:Awake Orientation: A&Ox3 Memory: intact Fund of Knowledge: limited Language: intact Dysarthria not noted Cranial Nerves: -II Visual acuity: abnormal, limited due to patient unable to perform exam -II Visual kiran: normal -III Pupils (~ 3 mm OD, 3 mm OU) equal, round, reactive to light -III-IV- Extraocular Movements: intact -Nystagmus not present -Saccades and pursuits normal -V Facial sensation: intact Corneal's Intact bilateral -VII Facial strength: intact -VIII Hearing: intact -IX-X- Gag reflex present -X Palate:intact -XI Shoulder shrug: intact -XII Tongue movement: normal Motor Examination: Tone after evaluation of 4 limbs, the following findings applied: Normal -Bulk: normal -Muscle Stretchafter evaluation of all limbs, and axial musculature the following findings applied: Drift: absent, moves all extremities symmetrically -Reflexes: after evaluation of 4 limbs, the following findings applied ; Abnormal -Plantar responce: Flexor bilaterally Sensory Intact Coordination: Arms intact Legs intact Tremors not present Gait abnormal, patient unable to walk due to acute circumstances / bedrest / safety concerns ANCILLARY CT Head 04/21/19: Unremarkable noncontrast CT scan of the head. No evidence of acute intracranial process. EEG 04/22/19: Impression: This abnormal EEG is consistent with potential epileptogenicity in the left anterior to mid temporal region occurring in the context of bilateral independent left and right focal cerebral dysfunction in the anterior to mid temporal regions. The background is consistent with severe generalized nonspecific cerebral dysfunction. No clear seizures were recorded. EEG Impression: This abnormal EEG is consistent with potential epileptogenicity in the right anterior to mid temporal region occurring in the context of a focal cerebral dysfunction in the same region. No clear seizures were recorded. Please note that the majority of this test was affected by artifact ASSESSMENT / PLAN/RECOMMENDATIONS: Status epilepticus status epilepticus , admissions every 2- 4 month for the last 3 - 5 yrs , - In setting of epilepsy, known non-compliance with AED's, Plan to continue with PNB at current BID dosing Will check level again tomorrow, if the level is dramatically increase , may decrease the dose prior to discharge Will obtain tomorrow also an EEG to see if her epileptogenicity is improved with current change in medication If all good she could be discharge tomorrow - level tomorrow - EEG tomorrow - primary team to take the necessary steps so she can get her home medications adjusted to the new regimen, and make sure there are not confusions, they should through away all her prior DIlatin - LFTs tomorrow - Continue Gabapentin 300 BID, Keppra 1000mg BID, Topamax 100mg BID (home doses), \Dilantin stopped 04/25 Phenobarbital to 120mg q6 hrs IV -- tolerating, level 12.7 Change now to 97.2 BID PO on , today level 16.7 ( collected at 04:10 ) Check level again tomorrow and Monday EEG again on Monday In my opinion she is in multiple drugs but all small doses, GBP dose is not antiepileptic dose, Topamax can also be increase and so is the Keppra, I think the reason we have not increased this medications before is because she always claims to be taking her medication but because she has been knownNOT to in the pass , we have been blaming her seizures to the none compliance But what IF she is INDEED taking her meds.. That is the reason I decided to change PNT to PNB and I may optimize the levels of Keppra as well before discharge My need follow up with neurology as outpatient for further adjustments of the meds Non-compliance/Cognitive deficits - Psych following here HTN - Better control - Per primary * Rafita Wiseman MD - 04/28/2019 1:02 PM EST Internal Medicine Progress Note 04/28/2019 1:02 PM Name: Mary Claudio :1985 IP Day: 7 Admit Date: 04/21/2019 5:06 PM PCP: GALI HIDALGO Code Status: Full Code Subjective: CC: Sz HPI: No further sz's. Says mood is fair. No SI/HI. Small BM yesterday. No abd pain. No new sob. No cp. No vomiting. No new sig ROD's. No GI bleeding. ROS: --no f/c. Hospital Medications Current Facility-Administered Medications: ferrous sulfate tablet 325 mg, 325 mg, Oral, Every Other Day, Manoj Estrada MD, 325 mg at 04/28/19932 sennosides-docusate sodium (SENOKOT-S) 8.6-50 MG tablet 2 tablet, 2 tablet, Oral, BID, Manoj Estrada MD, 2 tablet at 04/28/19932 PHENobarbital (LUMINAL) tablet 97.2 mg, 97.2 mg, Oral, BID, Zoe Mills MD, 97.2 mg at 04/28/19932 polyethylene glycol (GLYCOLAX) packet 17 g, 17 g, Oral, Daily, Dary Corbin MD, 17 g at 04/28/19931 melatonin ER tablet 2 mg, 2 mg, Oral, Nightly PRN, Manoj Estrada MD, 2 mg at 04/26/191958 topiramate (TOPAMAX) tablet 100 mg, 100 mg, Oral, BID, Twan Can MD, 100 mg at 04/28/19932 gabapentin (NEURONTIN) capsule 300 mg, 300 mg, Oral, BID, Elio Huerta DO, 300 mg at 04/28/19931 levETIRAcetam (KEPPRA) tablet 1,000 mg, 1,000 mg, Oral, BID, Elio Huerta DO, 1,000 mg at 04/28/19931 amLODIPine (NORVASC) tablet 5 mg, 5 mg, Oral, Daily, Elio Huerta DO, 5 mg at 04/28/19932 LORazepam (ATIVAN) injection 2 mg, 2 mg, Intravenous, Q4H PRN, Elio Huerta DO sodium chloride flush 0.9 % injection 10 mL, 10 mL, Intravenous, 2 times per day, Elio Huerta DO, 10 mL at 04/28/19 0938 sodium chloride flush 0.9 % injection 10 mL, 10 mL, Intravenous, PRN, Elio Huerta DO acetaminophen (TYLENOL) tablet 650 mg, 650 mg, Oral, Q6H PRN, Elio Huerta DO, 650 mg at 04/27/192026 magnesium hydroxide (MILK OF MAGNESIA) 400 MG/5ML suspension 30 mL, 30 mL, Oral, Daily PRN, Elio Huerta DO promethazine (PHENERGAN) tablet 12.5 mg, 12.5 mg, Oral, Q6H PRN, Elio Huerta DO ondansetron (ZOFRAN) injection 4 mg, 4 mg, Intravenous, Q6H PRN, Elio Huerta DO enoxaparin (LOVENOX) injection 40 mg, 40 mg, Subcutaneous, Daily, Elio Huerta DO, 40 mg at 04/28/19 0933 sodium chloride flush 0.9 % injection 10 mL, 10 mL, Intracatheter, Q8H, Elio Huerta DO, 10 mL at 04/27/19 1233 Objective: Vtals: BP 133/70 Pulse 65 Temp 97.9 F (36.6 C) (Temporal) Resp 16 Ht 5' 8 (1.727 m) Wt 285 lb 11.5 oz (129.6 kg) SpO2 97% BMI 43.44 kg/m Temp (24hrs), Av.3 F (36.3 C), Min:96 F (35.6 C), Max:97.9 F (36.6 C) Physical Exam Constitutional: Comments: NAD. WD/WN. HENT: Mouth/Throat: Comments: Oral MMM. Eyes: Comments: Conj clear. PERRL, EOMI. Neck: Comments: Supple. Cardiovascular: Comments: RRR no m/r/g. No LE edema b/l. B/l calves soft/NT. Pulmonary: Comments: Nl Respiratory Effort. CTA b/l. Abdominal: Comments: +BS Soft. NT. ND. Musculoskeletal: Comments: Strength 5/5 b/l UE/LE. Skin: Comments: No new rash. Good skin turgor. Neurological: Comments: Sensation intact. CN II-XII intact. Psychiatric: Comments: A&Ox3. Affect nl. Data: I/O (24Hr): Intake/Output Summary (Last 24 hours) at 04/28/2019 1302 Last data filed at 04/28/2019 0835 Gross per 24 hour Intake 1500 ml Output Net 1500 ml Labs: Lab Results Component Value Date/Time WBC 4.8 04/28/2019 04:10 AM Hemoglobin 11.0 (L) 04/28/2019 04:10 AM Hematocrit 34.3 (L) 04/28/2019 04:10 AM Platelets 233 04/28/2019 04:10 AM MCV 79.2 04/28/2019 04:10 AM Lab Results Component Value Date/Time Sodium 137 04/28/2019 04:10 AM Potassium 3.7 04/28/2019 04:10 AM Chloride 110 (H) 04/28/2019 04:10 AM CO2 18 (L) 04/28/2019 04:10 AM BUN 10 04/28/2019 04:10 AM CREATININE 0.73 04/28/2019 04:10 AM Glucose 88 04/28/2019 04:10 AM Calcium 8.7 04/28/2019 04:10 AM Magnesium 2.0 04/28/2019 04:10 AM Phosphorus 4.2 04/28/2019 04:10 AM --Phenobarb 16.7. --Ferritin 6. Sat 9. Assessment and Plan: --Sz D/o/Status Epilepticus: Hx recurrent status epilepticus, hx non-compliance. Sz med levels low.Dilantin, Valproic Acid stopped. Phenobarb started. Gabapentin. Topamax. Keppra. Ativan IV prn. Neuro. Monitor bicarb on topamax. 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 Ethics has been consulted. --Mood disorder/Depression: No SI/HI. Gabapentin. Topamax. mood fair. --Htn: Amlodipine. --Constipation: Miralax. Senna-S - dose increased. --Microcytic Anemia: check B12, folate. Ferritin 6 (04/18). FeSO4 started. +periods currently. --Regular diet. Lovenox. HCG neg. * Nga Troncoso DTR - 04/28/2019 8:56 AM EST Nutrition update completed. Chart reviewed. Patient to be monitored and followed by the diet compliance field technician. * Manoj Estrada MD - 04/28/2019 7:44 AM EST Med Team Progress Note Mary Claudio : 1985(33 y.o.) Date: April 28, 2019 Med Team: Randal Attending: Dr. Wiseman Chief Complaint: Seizures Subjective: Ms. Claudio is a 33 y.o. Female with a PMHx of seizure disorder (admitted to [facility] ED for status epilepticus), obesity, HTN, depression, tobacco use and cognitive deficits. Patient seen this am, no acute complaints. Overnight nursing paged night team that patient was staring and not responding, which is usual. Patient subsequently started giggling and provided appropriate answers. This morning upon evaluation patient initially asleep. Upon awakening, patient reported s light headache, however states improved from prior day. Patient denies fevers, chills, nausea, vomiting, abdominal pain, or diarrhea. Patient denies lower extremity erythema, edema or pain. Patient still intermittently tearful, as she wants to go home to be with her children. Review of Systems Constitutional: Negative for activity change, appetite change, chills, diaphoresis, fatigue and fever. HENT: Negative for congestion, ear discharge, ear pain, hearing loss, sore throat and tinnitus. Eyes: Negative for pain, discharge and redness. Respiratory: Negative for cough, shortness of breath and wheezing. Cardiovascular: Negative for chest pain, palpitations and leg swelling. Gastrointestinal: Negative for abdominal pain, blood in stool, constipation, diarrhea, nausea and vomiting. Endocrine: Negative for polydipsia. Genitourinary: Negative for dysuria, frequency, hematuria and urgency. Musculoskeletal: Negative for back pain and myalgias. Skin: Negative for rash. Neurological: Positive for headaches. Negative for dizziness, tremors, seizures and weakness. Hematological: Does not bruise/bleed easily. Psychiatric/Behavioral: Positive for dysphoric mood. The patient is not nervous/anxious. Scheduled Meds: ferrous sulfate 325 mg Oral Every Other Day sennosides-docusate sodium 2 tablet Oral BID PHENobarbital 97.2 mg Oral BID polyethylene glycol 17 g Oral Daily topiramate 100 mg Oral BID gabapentin 300 mg Oral BID levETIRAcetam 1,000 mg Oral BID amLODIPine 5 mg Oral Daily sodium chloride flush 10 mL Intravenous 2 times per day enoxaparin 40 mg Subcutaneous Daily sodium chloride flush 10 mL Intracatheter Q8H Objective: BP 108/69 Pulse 62 Temp 96.9 F (36.1 C) (Temporal) Resp 14 Ht 5' 8 (1.727 m) Wt 285 lb 11.5 oz (129.6 kg) SpO2 96% BMI 43.44 kg/m Physical Exam Vitals signs and nursing note reviewed. Constitutional: General: She is not in acute distress. Appearance: Normal appearance. She is well-developed. She is obese. She is not ill-appearing or diaphoretic. HENT: Head: Normocephalic and atraumatic. Nose: Nose normal. No congestion or rhinorrhea. Mouth/Throat: Mouth: Mucous membranes are moist. Pharynx: No oropharyngeal exudate or posterior oropharyngeal erythema. Eyes: Extraocular Movements: Extraocular movements intact. Conjunctiva/sclera: Conjunctivae normal. Pupils: Pupils are equal, round, and reactive to light. Neck: Musculoskeletal: Normal range of motion and neck supple. Trachea: No tracheal deviation. Cardiovascular: Rate and Rhythm: Normal rate and regular rhythm. Pulses: Normal pulses. Heart sounds: Normal heart sounds. No murmur. Pulmonary: Effort: Pulmonary effort is normal. No respiratory distress. Breath sounds: Normal breath sounds. No wheezing. Abdominal: General: Abdomen is flat. Bowel sounds are normal. There is no distension. Palpations: Abdomen is soft. Tenderness: There is no abdominal tenderness. Musculoskeletal: Normal range of motion. General: No tenderness. Right lower leg: No edema. Left lower leg: No edema. Lymphadenopathy: Cervical: No cervical adenopathy. Skin: General: Skin is warm and dry. Findings: No erythema or rash. Neurological: General: No focal deficit present. Mental Status: She is alert and oriented to person, place, and time. Sensory: No sensory deficit. Motor: No abnormal muscle tone. Psychiatric: Mood and Affect: Mood normal. Comments: Still with slow responses Tearful when discussing her children [facility] within last 24 hours Lab Results Component Value Date/Time WBC 4.8 04/28/2019 04:10 AM Hemoglobin 11.0 (L) 04/28/2019 04:10 AM Hematocrit 34.3 (L) 04/28/2019 04:10 AM Platelets 233 04/28/2019 04:10 AM MCV 79.2 04/28/2019 04:10 AM Lab Results Component Value Date/Time Sodium 137 04/28/2019 04:10 AM Potassium 3.7 04/28/2019 04:10 AM Chloride 110 (H) 04/28/2019 04:10 AM CO2 18 (L) 04/28/2019 04:10 AM BUN 10 04/28/2019 04:10 AM CREATININE 0.73 04/28/2019 04:10 AM Glucose 88 04/28/2019 04:10 AM Calcium 8.7 04/28/2019 04:10 AM Magnesium 2.0 04/28/2019 04:10 AM Phosphorus 4.2 04/28/2019 04:10 AM 24 hour EEG 04/26/19: Diagnoses: 1. Rare sharp waves in the right anterior to mid temporal region. 2. Frequent irregular delta activity in the right anterior to mid temporal region. 3. Occasional right temporal intermittent rhythmic delta activity or TIRDA. Impression: This abnormal EEG is consistent with potential epileptogenicity in the right anterior to mid temporal region occurring in the context of a focal cerebral dysfunction in the same region. No clear seizures were recorded. Please note that the majority of this test was affected by artifact. Assessment and Plan: Status Epilepticus in setting of poorly controlled seizure disorder -2 episodes of generalized tonic clonic seizures on 04/21 that lasted several minutes -At time of admission, pt had low phenytoin levels, unclear if difficulty obtaining meds or relatedto metabolism -Home AEDs include gabapentin 300 BID, keppra 1000 BID, phenytoin 150 BID, topiramate 100 BID -Neuro following, appreciate recs -AEDs as of now per neuro: gabapentin 300mg PO BID, keppra 1000mg PO BID, phenobarbital 97.2mg PO BID, and topamax 100mg PO BID -Phenobarbital level therapeutic today at 16.7, will recheck 04/29/19 -PRN ativan for seizures -Seizure precautions, fall precautions -CT head WNL -Plan for repeat EEG on Monday -Monitor electrolytes closely and replace as necessary (Mg normal at 2.0, K+ 3.7- will replace to keep K+ around 4.0) HTN -Goal SBP <140 -BP this am 108/69 -Continue amlodipine 5mg PO daily (home dose 10mg) Cognitive Impairment -Per patient, assists w/ IADL's -Following up with immigration case manager regarding [facility] board visit for further services and behavioral health eval, also discussed another home visit at this new location -Psych following, appreciate recs -Pt still does not have capacity for medical decision making - Will need to f/u with immigration case manager regarding in-home counseling, pt's mailing prescriptions if okat new address; f/u with [facility] to discuss pt's tx and compliance; meeting with family - Ethics consulted for assistance Tobacco abuse -Tire Sorter on cessation Constipation -Glycolax 17g PO daily -Senna-S 2 tablets PO BID Microcytic anemia - MCV 79.2 - Hemoglobin 11.0, relatively stable - No acute signs of bleeding - Ferritin 6, Iron 26, TIBC 288, and Sat 9 - Will start ferrous sulfate 325mg PO every other day - Will check vitamin B12 and folate Depression - On gabapentin and topamax for seizures, which may also help with mood Obesity - BMI 43.5 - Tire Sorter on diet/exercise NAGMA - Bicarb of 18 - Topamax can lead to metabolic acidosis - May be underlying component of ANIRUDH - Monitor on daily BMP - Consider ABG if any change in alertness Associated attestation - Rafita Wiseman MD - 04/28/2019 3:36 PM EST Attending Physician Statement Chart/data reviewed. I have discussed the care of Mary Claudio, including pertinent history and exam findings, with the resident. I have seen and examined the patient independently and the jain elements of all parts of the encounter have been performed by me. See my note. (GC Modifier) * Zoe Mills MD - 04/27/2019 3:47 PM EST PROGRESS NOTE. NEUROLOGY Patient Name:Mary Claudio Patient : 1985 Acct: [id number] Date of Admission: 04/21/2019 Room/Bed: [facility] PCP: GALI PATMAN Patient location ICU Remains in the hospital due to persistent unresolved acute issues, Subjective: 33F a PMH of epilepsy (on multiple AED's, non-compliant, multiple hospital admission for status epilepticus due to non-compliance,, HTN, obesity, depression presented to [facility] ER 04/21 from [facility] with status epilepticus. Dilantin level subtherapeutic. Required intubation. Transferred out to floor. New Complaint: Phenobarbital level 12.7 . Increment has been 5.5 / 9.9/ 12.7 I suspect tomorrow will be > 15 , then Ill decrease her dosing , which have been increased for now just to load She is fully awake today , she is asking to go home Sedation:No Diet/TF: Regular Law: Yes VTE prophylaxis: YES Lovenox Antithrombotic therapy in first 24 hrs: Contraindicated because not stroke Statin therapy for stroke stroke patients: N/A, not stroke or LDL < 70 Anticoagulation on AF patients: N/A no history of AF Activity: As tolerated Disposition: TBD Current Hospital Medications: Current Facility-Administered Medications: sennosides-docusate sodium (SENOKOT-S) 8.6-50 MG tablet 2 tablet, 2 tablet, Oral, BID, Manoj Estrada MD polyethylene glycol (GLYCOLAX) packet 17 g, 17 g, Oral, Daily, Dary Corbin MD, 17 g at 04/27/19 0914 melatonin ER tablet 2 mg, 2 mg, Oral, Nightly PRN, Manoj Estrada MD, 2 mg at 04/26/191958 PHENobarbital (LUMINAL) 120 mg in sodium chloride 0.9 % 100 mL IVPB, 120 mg, Intravenous, Q6H, [place], 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, Last Rate: 300 mL/hr at 04/27/19 1533, 120 mg at 04/27/19 1533 topiramate (TOPAMAX) tablet 100 mg, 100 mg, Oral, BID, Twan Can MD, 100 mg at 04/27/19 0914 gabapentin (NEURONTIN) capsule 300 mg, 300 mg, Oral, BID, Elio Huerta DO, 300 mg at 04/27/19 0913 levETIRAcetam (KEPPRA) tablet 1,000 mg, 1,000 mg, Oral, BID, Elio Huerta DO, 1,000 mg at 04/27/19 09 amLODIPine (NORVASC) tablet 5 mg, 5 mg, Oral, Daily, Elio Huerta DO, 5 mg at 04/27/19 09 LORazepam (ATIVAN) injection 2 mg, 2 mg, Intravenous, Q4H PRN, Elio Huerta DO sodium chloride flush 0.9 % injection 10 mL, 10 mL, Intravenous, 2 times per day, Elio Huerta DO, 10 mL at 04/27/19 0914 sodium chloride flush 0.9 % injection 10 mL, 10 mL, Intravenous, PRN, Elio Huerta DO acetaminophen (TYLENOL) tablet 650 mg, 650 mg, Oral, Q6H PRN, Elio Huerta DO, 650 mg at 04/25/19 0832 magnesium hydroxide (MILK OF MAGNESIA) 400 MG/5ML suspension 30 mL, 30 mL, Oral, Daily PRN, Elio Huerta DO promethazine (PHENERGAN) tablet 12.5 mg, 12.5 mg, Oral, Q6H PRN, Elio Huerta DO ondansetron (ZOFRAN) injection 4 mg, 4 mg, Intravenous, Q6H PRN, Elio Huerta DO enoxaparin (LOVENOX) injection 40 mg, 40 mg, Subcutaneous, Daily, Elio Huerta DO, 40 mg at 04/27/19 0914 sodium chloride flush 0.9 % injection 10 mL, 10 mL, Intracatheter, Q8H, Elio Huerta DO, 10 mL at 04/27/19 1233 Continuous Infusions: Allergies: Fluconazole and Naproxen Review of Systems Constitutional: Positive for fatigue. HENT: Negative for trouble swallowing and voice change. Eyes: Negative for visual disturbance. Respiratory: Negative for cough and shortness of breath. Cardiovascular: Negative for palpitations. Gastrointestinal: Negative for diarrhea and nausea. Genitourinary: Negative for dysuria. Musculoskeletal: Negative for back pain. Skin: Negative for pallor. Neurological: Negative for dizziness, tremors, seizures, syncope, facial asymmetry, speech difficulty, weakness, light-headedness, numbness and headaches. Psychiatric/Behavioral: Negative for decreased concentration. The patient is not nervous/anxious. Objective: Telemetry: Arrhythmia:No Physical Examination: Patient Vitals for the past 8 hrs: BP Temp Temp src Pulse Resp SpO2 04/27/19 1536 124/82 97.3 F (36.3 C) Temporal 75 20 95 % 04/27/19 1220 128/89 97.8 F (36.6 C) Temporal 68 20 98 % 04/27/19 1000 (!) 104/45 70 16 98 % 04/27/19 0900 (!) 117/59 81 16 100 % 04/27/19 0800 111/73 78 20 100 % No intake/output data recorded. General Physical Examination: General: well nourished, well developed, obese and calm HEENT:Normocephalic, atraumatic CV: S1+S2, RRR, no MRG. Pulm:CTA b/l, unlabored Abdomen: Soft NT/ND. BS + Skin: Intact without ulcers, breakdowns or discoloration Extremities: normal with no edema or cyanosis Orthopedic limitation; N/A Pulses: Intact peripherally Carotid auscultation :No bruits Neurological Examination: Higher Functions: Mental Status Exam: Level of Alertness:Awake Orientation: A&Ox3 Memory: intact Fund of Knowledge: limited Language: intact Dysarthria not noted Cranial Nerves: -II Visual acuity: abnormal, limited due to patient unable to perform exam -II Visual kiran: normal -III Pupils (~ 3 mm OD, 3 mm OU) equal, round, reactive to light -III-IV- Extraocular Movements: intact -Nystagmus not present -Saccades and pursuits normal -V Facial sensation: intact Corneal's Intact bilateral -VII Facial strength: intact -VIII Hearing: intact -IX-X- Gag reflex present -X Palate:intact -XI Shoulder shrug: intact -XII Tongue movement: normal Motor Examination: Tone after evaluation of 4 limbs, the following findings applied: Normal -Bulk: normal -Muscle Stretchafter evaluation of all limbs, and axial musculature the following findings applied: Drift: absent, moves all extremities symmetrically -Reflexes: after evaluation of 4 limbs, the following findings applied ; Abnormal -Plantar responce: Flexor bilaterally Sensory Intact Coordination: Arms intact Legs intact Tremors not present Gait abnormal, patient unable to walk due to acute circumstances / bedrest / safety concerns ANCILLARY Last 24hr: Antiepileptic levels: Recent Labs 04/25/19 0555 PHENYTOIN 5.3* VALPROATE <10* CT Head 04/21/19: Unremarkable noncontrast CT scan of the head. No evidence of acute intracranial process. EEG 04/22/19: Impression: This abnormal EEG is consistent with potential epileptogenicity in the left anterior to mid temporal region occurring in the context of bilateral independent left and right focal cerebral dysfunction in the anterior to mid temporal regions. The background is consistent with severe generalized nonspecific cerebral dysfunction. No clear seizures were recorded. EEG Impression: This abnormal EEG is consistent with potential epileptogenicity in the right anterior to mid temporal region occurring in the context of a focal cerebral dysfunction in the same region. No clear seizures were recorded. Please note that the majority of this test was affected by artifact ASSESSMENT / PLAN/RECOMMENDATIONS: Status epilepticus status epilepticus , admissions every 2- 4 month for the last 3 - 5 yrs , - In setting of epilepsy, known non-compliance with AED's, multiple hospital admissions due to same. Phenytoin level subtherapeutic - PNT, changed for PNB this admission , to see if that helps with decrease in recurrence of seizures - EEG still with significant sharp waves , - Continue Gabapentin 300 BID, Keppra 1000mg BID, Topamax 100mg BID (home doses), Dilantin stopped 04/25 - Started on Phenobarbital to 120mg q6 hrs -- tolerating, level 12.7 Change now to 120 mg BID Check level again tomorrow and Monday EEG again on Monday In my opinion she is in multiple drugs but all small doses, GBP dose is not antiepileptic dose, Topamax can also be increase and so is the Keppra, I think the reason we have not increased this medications before is because she always claims to be taking her medication but because she has been knownNOT to in the pass , we have been blaming her seizures to the none compliance But what IF she is INDEED taking her meds.. That is the reason I decided to change PNT to PNB and I may optimize the levels of Keppra as well before discharge My need follow up with neurology as outpatient for further adjustments of the meds Non-compliance/Cognitive deficits - Psych following here HTN - Better control - Per primary * Rafita Wiseman MD - 04/27/2019 2:02 PM EST Internal Medicine Progress Note 04/27/2019 5:07 PM Name: Mary Claudio :1985 IP Day: 6 Admit Date: 04/21/2019 5:06 PM PCP: GALI HIDALGO Code Status: Full Code Subjective: CC: Sz's. HPI: No further seizure's. No sig ROD. No dysuria. No abd pain. Pt knew name, month, city, president. Says at home she was taking 3 sz meds prior to admission. ROS: .--no f/c. No new sob. No cp. No vomiting. Social History Tobacco Use Smoking status: Former Smoker Smokeless tobacco: Never Used Substance Use Topics Alcohol use: No Drug use: Never Hospital Medications Current Facility-Administered Medications: sennosides-docusate sodium (SENOKOT-S) 8.6-50 MG tablet 2 tablet, 2 tablet, Oral, BID, Manoj Estrada MD PHENobarbital (LUMINAL) tablet 97.2 mg, 97.2 mg, Oral, BID, Zoe Mills MD polyethylene glycol (GLYCOLAX) packet 17 g, 17 g, Oral, Daily, Dary Corbin MD, 17 g at 04/27/19913 melatonin ER tablet 2 mg, 2 mg, Oral, Nightly PRN, Manoj Estrada MD, 2 mg at 04/26/191958 topiramate (TOPAMAX) tablet 100 mg, 100 mg, Oral, BID, Twan Can MD, 100 mg at 04/27/19913 gabapentin (NEURONTIN) capsule 300 mg, 300 mg, Oral, BID, Elio Huerta DO, 300 mg at 04/27/19 0913 levETIRAcetam (KEPPRA) tablet 1,000 mg, 1,000 mg, Oral, BID, Elio Huerta DO, 1,000 mg at 04/27/19 0913 amLODIPine (NORVASC) tablet 5 mg, 5 mg, Oral, Daily, Elio Huerta DO, 5 mg at 04/27/19 0913 LORazepam (ATIVAN) injection 2 mg, 2 mg, Intravenous, Q4H PRN, Elio Huerta DO sodium chloride flush 0.9 % injection 10 mL, 10 mL, Intravenous, 2 times per day, Elio Huerta DO, 10 mL at 04/27/19 0914 sodium chloride flush 0.9 % injection 10 mL, 10 mL, Intravenous, PRN, Elio Huerta DO acetaminophen (TYLENOL) tablet 650 mg, 650 mg, Oral, Q6H PRN, Elio Huerta DO, 650 mg at 04/25/19 0832 magnesium hydroxide (MILK OF MAGNESIA) 400 MG/5ML suspension 30 mL, 30 mL, Oral, Daily PRN, Elio Huerta DO promethazine (PHENERGAN) tablet 12.5 mg, 12.5 mg, Oral, Q6H PRN, Elio Huerta DO ondansetron (ZOFRAN) injection 4 mg, 4 mg, Intravenous, Q6H PRN, Elio Huerta DO enoxaparin (LOVENOX) injection 40 mg, 40 mg, Subcutaneous, Daily, Elio Huerta DO, 40 mg at 04/27/19 0914 sodium chloride flush 0.9 % injection 10 mL, 10 mL, Intracatheter, Q8H, Elio Huerta DO, 10 mL at 04/27/19 1233 Objective: Vtals: BP 124/82 Pulse 75 Temp 97.3 F (36.3 C) (Temporal) Resp 20 Ht 5' 8 (1.727 m) Wt 285 lb 11.5 oz (129.6 kg) SpO2 95% BMI 43.44 kg/m Temp (24hrs), Av.5 F (36.4 C), Min:97.2 F (36.2 C), Max:97.9 F (36.6 C) Physical Exam Constitutional: Comments: NAD. WD/WN. HENT: Mouth/Throat: Comments: Oral MMM. Eyes: Comments: Conj clear. PERRL, EOMI. Neck: Comments: Supple. Cardiovascular: Comments: RRR no m/r/g. No LE edema b/l. B/l calves soft/NT. Pulmonary: Comments: Nl Respiratory Effort. CTA b/l. Abdominal: Comments: +BS Soft. NT. ND. Musculoskeletal: Comments: Strength 5/5 b/l UE/LE. Skin: Comments: No new rash. Good skin turgor. Neurological: Comments: Sensation intact. CN II-XII intact. Psychiatric: Comments: A&Ox3. Affect nl. Knew president. Data: I/O (24Hr): No intake or output data in the 24 hours ending 04/27/19 1707 Labs: Recent Labs 04/26/19 0639 04/27/19 0049 WBC 5.5 5.8 HGB 11.7 11.4* PLT 245 256 Recent Labs 04/26/19 0639 04/27/19 0049 NA 139 137 K 3.8 3.7 CL 109* 108* CO2 22 22 BUN 6* 10 CREATININE 0.72 0.80 GLUCOSE 81 90 No results for input(s): AST, ALT, ALB, BILITOT, ALKPHOS in the last 72 hours. --EKG (04/21/19 independently reviewed): sinus rhythm, non-specific ST, T wave changes. --UA: neg. Blood Cx's (04/21/19): neg. A1c 5.1. HCG neg. TSH nl. --EEG: abnl. --CXR (04/21/19): atelectasis. --CT Head (04/21/19): no acute. --Tox (04/21/19): + benzo's. --Troponin 0.052 --> 0.051, 0.033. Assessment and Plan: --Sz D/o/Status Epilepticus: Hx recurrent status epilepticus, hx non-compliance. Sz med levels low.Gabapentin. Topamax. Keppra. Phenobarb. Ativan IV prn. Neuro. 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 Ethics c/s. --Mood disorder/Depression: Gabapentin. Topamax. --Htn: Amlodipine. --Constipation: Miralax. Senna-S. --Regular diet. Lovenox. HCG neg. * Manoj Estrada MD - 04/27/2019 7:29 AM EST Med Team Progress Note Mary Claudio : 1985(33 y.o.) Date: April 27, 2019 Med Team: Randal Attending: Dr. Wiseman Chief Complaint: Seizures Subjective: Ms. Claudio is a 33 y.o. Female with a PMHx of seizure disorder (admitted to [facility] ED for status epilepticus), obesity, HTN, depression, tobacco use and cognitive deficits. Patient seen this am, no acute complaints. Patient denies any overnight events. Patient had continuous EEG completed yesterday, which demonstrated rare sharp waves in the right anterior to mid temporal region, frequent irregular delta activity in the right anterior to mid temporal region and occasional right temporal intermittent rhythmic delta activity. Neurology following and awaiting therapeutic levels of anti-epileptic medications prior to discharge. Patient denies fevers, chills, nausea, vomiting, diarrhea, or further seizure like activity. Patient does report trouble with bowel movements. Patient still reports occasional headaches->improved with tylenol. Review of Systems Constitutional: Negative for activity change, appetite change, chills, diaphoresis, fatigue and fever. HENT: Negative for congestion, ear discharge, ear pain, hearing loss, sore throat and tinnitus. Eyes: Negative for pain, discharge and redness. Respiratory: Negative for cough, shortness of breath and wheezing. Cardiovascular: Negative for chest pain, palpitations and leg swelling. Gastrointestinal: Positive for constipation. Negative for abdominal pain, blood in stool, diarrhea,nausea and vomiting. Endocrine: Negative for polydipsia. Genitourinary: Negative for dysuria, frequency, hematuria and urgency. Musculoskeletal: Negative for back pain and myalgias. Skin: Negative for rash. Neurological: Positive for headaches. Negative for dizziness, tremors, seizures and weakness. Hematological: Does not bruise/bleed easily. Psychiatric/Behavioral: Positive for dysphoric mood. The patient is not nervous/anxious. Scheduled Meds: sennosides-docusate sodium 2 tablet Oral BID polyethylene glycol 17 g Oral Daily PHENobarbital IVPB 120 mg Intravenous Q6H topiramate 100 mg Oral BID gabapentin 300 mg Oral BID levETIRAcetam 1,000 mg Oral BID amLODIPine 5 mg Oral Daily sodium chloride flush 10 mL Intravenous 2 times per day enoxaparin 40 mg Subcutaneous Daily sodium chloride flush 10 mL Intracatheter Q8H Objective: BP 128/89 Pulse 68 Temp 97.8 F (36.6 C) (Temporal) Resp 20 Ht 5' 8 (1.727 m) Wt 285 lb 11.5 oz (129.6 kg) SpO2 98% BMI 43.44 kg/m Physical Exam Vitals signs and nursing note reviewed. Constitutional: General: She is not in acute distress. Appearance: Normal appearance. She is well-developed. She is obese. She is not ill-appearing or diaphoretic. HENT: Head: Normocephalic and atraumatic. Nose: Nose normal. No congestion or rhinorrhea. Mouth/Throat: Mouth: Mucous membranes are moist. Pharynx: No oropharyngeal exudate or posterior oropharyngeal erythema. Eyes: Extraocular Movements: Extraocular movements intact. Conjunctiva/sclera: Conjunctivae normal. Pupils: Pupils are equal, round, and reactive to light. Neck: Musculoskeletal: Normal range of motion and neck supple. Trachea: No tracheal deviation. Cardiovascular: Rate and Rhythm: Normal rate and regular rhythm. Pulses: Normal pulses. Heart sounds: Normal heart sounds. No murmur. Pulmonary: Effort: Pulmonary effort is normal. No respiratory distress. Breath sounds: Normal breath sounds. No wheezing. Abdominal: General: Abdomen is flat. Bowel sounds are normal. There is no distension. Palpations: Abdomen is soft. Tenderness: There is no abdominal tenderness. Musculoskeletal: Normal range of motion. General: No tenderness. Right lower leg: No edema. Left lower leg: No edema. Lymphadenopathy: Cervical: No cervical adenopathy. Skin: General: Skin is warm and dry. Findings: No erythema or rash. Neurological: General: No focal deficit present. Mental Status: She is alert and oriented to person, place, and time. Sensory: No sensory deficit. Motor: No abnormal muscle tone. Psychiatric: Mood and Affect: Mood normal. Comments: Child like behavior Slow responses [facility] within last 24 hours Lab Results Component Value Date/Time WBC 5.8 04/27/2019 12:49 AM Hemoglobin 11.4 (L) 04/27/2019 12:49 AM Hematocrit 35.5 04/27/2019 12:49 AM Platelets 256 04/27/2019 12:49 AM MCV 78.9 (L) 04/27/2019 12:49 AM Lab Results Component Value Date/Time Sodium 137 04/27/2019 12:49 AM Potassium 3.7 04/27/2019 12:49 AM Chloride 108 (H) 04/27/2019 12:49 AM CO2 22 04/27/2019 12:49 AM BUN 10 04/27/2019 12:49 AM CREATININE 0.80 04/27/2019 12:49 AM Glucose 90 04/27/2019 12:49 AM Calcium 8.6 04/27/2019 12:49 AM Magnesium 1.8 04/27/2019 12:49 AM Phosphorus 4.3 04/27/2019 12:49 AM 24 hour EEG 04/26/19: Diagnoses: 1. Rare sharp waves in the right anterior to mid temporal region. 2. Frequent irregular delta activity in the right anterior to mid temporal region. 3. Occasional right temporal intermittent rhythmic delta activity or TIRDA. Impression: This abnormal EEG is consistent with potential epileptogenicity in the right anterior to mid temporal region occurring in the context of a focal cerebral dysfunction in the same region. No clear seizures were recorded. Please note that the majority of this test was affected by artifact. Assessment and Plan: Status Epilepticus in setting of poorly controlled seizure disorder -2 episodes of generalized tonic clonic seizures on 04/21 that lasted several minutes (witnessed at home and en route to ED) -At time of admission, pt had low phenytoin levels demonstrating non-compliance (similar hx in the past) -Home AEDs include gabapentin 300 BID, keppra 1000 BID, phenytoin 150 BID, topiramate 100 BID -Neuro following, appreciate recs -AEDs as of now per neuro: gabapentin 300mg PO BID, keppra 1000mg PO BID, phenobarbital 120mg IV [id number], and topamax 100mg PO BID -Goal is to reach therapeutic level of phenobarbital prior to discharge - Current phenobarbital level 12.7 -PRN ativan for seizures -Seizure precautions, fall precautions -CT head WNL -24 hour EEG results as noted above -Monitor electrolytes closely and replace as necessary HTN -Goal SBP <140 -BP this am 114/60 (averaging in 90s systolic to 110s) -Continue amlodipine 5mg PO daily (home dose 10mg) Cognitive Impairment -Per patient, assists w/ IADL's -Following up with immigration case manager regarding [facility] board visit for further services and behavioral health eval, also discussed another home visit at this new location -Psych following, appreciate recs -Pt still does not have capacity for medical decision making - Will need to f/u with immigration case manager regarding in-home counseling, pt's mailing prescriptions if okat new address; f/u with [facility] to discuss pt's tx and compliance; meeting with family Tobacco abuse -Tire Sorter on cessation Constipation -Glycolax 17g PO daily -Senna-S 2 tablets PO BID Microcytic anemia - MCV 78.9 - Hemoglobin 11.4, relatively stable - No acute signs of bleeding - Will check iron, TIBC, and ferritin level 04/28/19 am Depression - On gabapentin and topamax for seizures, which may also help with mood Obesity - BMI 43.5 - Tire Sorter on diet/exercise Associated attestation - Rafita Wiseman MD - 04/27/2019 5:29 PM EST Attending Physician Statement Chart/data reviewed. I have discussed the care of Mary Claudio, including pertinent history and exam findings, with the resident. I have seen and examined the patient independently and the jain elements of all parts of the encounter have been performed by me. See my note. (GC Modifier) * Margarita Zee RN - 04/26/2019 4:30 PM EST Went in to assess pt. Unable to do so due to patient not following commands. Pt seen smirking with laughter during attempt. Repositioned pt and left room. Returned within 5 min and pt was awake and cooperative. A&O x4 and responding appropriately. Assessment completed during this time. * Dary Corbin MD - 04/26/2019 2:19 PM EST Updates as follows: 1) Called [facility] pharmacy. Pt called in February to hold her account and prevent her medicationsfrom being mailed thus forward. Hence, she would not have received her medications at the end of February that would have been a month's supply for March. They said she held her account because shereceived refills of her meds from her hospitalization in February. [facility], which would provide meds for the month of February. Corroborated the information with the pt. She does NOT think she received the mailed medications for the month of February because of her recent move. Thus, she would only have the medications for February from the hospital, which may not have covered her for March. Pt's account is still suspended at [facility]. Pt did call to change her address for [facility]. 2) Spoke with immigration case manager. [facility] board does not have any records for pt. Stated that SW will need to start that process. As for the behavioral health portion, she does not think that wasstarted. She will put in a referral for [facility], and the patient will have to go to [facility] for follow-up. 3) Spoke with SW regarding [facility]. They are trying to get in touch with because in [facility], the family must initiate the process. This will need ongoing follow-up. *addendum* SW able to contact and states he will call the [facility] for more support at home. Will need to f/u this process. 4) Called the pt's neurologist Dr. Ludwig. Requested medical records to be faxed over. Dr. Straussformed us that he is not aware of her AED levels in the o/p setting and would have a PA call me back with more information regarding her o/p care. He did say that she has had only one follow-up with him and one follow up with the [employer] in the past year, the most recent visit was 12/2018, I believe. *addendum* Spoke with PA from Dr. Ludwig's office. She followed with Dr. Ludwig in 2008, and then didn't return until 2019. Per their chart review, she has not seen another neurologist during that time and was being managed by her PCP. However, she had multiple no-shows for her PCP and may have been fired? They have no o/p levels of her AEDs. States that they were unaware she was on phenytoin until they talked with , so prior to that knowledge, they decided to increase Keppra and were planning to f/u Keppra levels after that adjustment. * Ivy Wood, PhD - 04/26/2019 1:25 PM EST Spoke with patient providers, Dr. Dary Corbin and Sharron Hill, [facility] neurology re: concerns of patient non-compliance and potential need for ethics consult. Have collaboratively decided on plan as follows: Dr. Corbin has spoken with patient's bilingual medical assistant who intends to have f/u visit with patient post- discharge to ensure that prescription meds will be mailed to new address, to encourage medication compliance, and to facilitate behavioral healthcase worker referral. Dr. Corbin with plans to contact patient's pharmacy and ouptatient neurologist today to obtain data regarding treatment recommendations/compliance. Per Sharron, patient receiving EEG monitoring to determine brain' seizure threshold on low med levels. Social work and bilingual medical assistant to follow up on [facility] (i.e., to assist patient in enrolling for ser vices, as it seems that she is not currently enrolled). Ongoing communication with patient and patient's . Following completion of aforementioned steps/plan, medical team will review appropriateness of potential ethics referral. * Sharron Hill, [employer] [facility] - 04/26/2019 7:32 AM EST PROGRESS NOTE. NEUROLOGY Patient Name:Mary Claudio Patient : 1985 Acct: [id number] Date of Admission: 04/21/2019 Room/Bed: [facility]/[id number] PCP: GALI HIDALGO Patient location ICU Remains in the hospital due to persistent unresolved acute issues, Subjective: 33F a PMH of epilepsy (on multiple AED's, non-compliant, multiple hospital admission for status epilepticus due to non-compliance,, HTN, obesity, depression presented to [facility] ER 04/21 from [facility] with status epilepticus. Dilantin level subtherapeutic. Required intubation. Transferred out to floor. New Complaint: Phenobarbital level 9.9. Awake this AM on EEG. Sedation:No Diet/TF: Regular Law: Yes VTE prophylaxis: YES Lovenox Antithrombotic therapy in first 24 hrs: Contraindicated because not stroke Statin therapy for stroke stroke patients: N/A, not stroke or LDL < 70 Anticoagulation on AF patients: N/A no history of AF Activity: As tolerated Disposition: TBD Current Hospital Medications: Current Facility-Administered Medications: melatonin ER tablet 2 mg, 2 mg, Oral, Nightly PRN, Manoj Estrada MD sennosides-docusate sodium (SENOKOT-S) 8.6-50 MG tablet 2 tablet, 2 tablet, Oral, Daily, Manoj Estrada MD, 2 tablet at 04/25/19 1032 PHENobarbital (LUMINAL) 120 mg in sodium chloride 0.9 % 100 mL IVPB, 120 mg, Intravenous, Q6H, Sharron Hill, 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, Stopped at 04/26/19 0350 topiramate (TOPAMAX) tablet 100 mg, 100 mg, Oral, BID, Twan Can MD, 100 mg at 04/25/192028 gabapentin (NEURONTIN) capsule 300 mg, 300 mg, Oral, BID, Elio Huerta DO, 300 mg at 04/25/192028 levETIRAcetam (KEPPRA) tablet 1,000 mg, 1,000 mg, Oral, BID, Elio Huerta DO, 1,000 mg at 04/25/192028 amLODIPine (NORVASC) tablet 5 mg, 5 mg, Oral, Daily, Elio Huerta DO, 5 mg at 04/25/19 0831 LORazepam (ATIVAN) injection 2 mg, 2 mg, Intravenous, Q4H PRN, Elio Huerta DO sodium chloride flush 0.9 % injection 10 mL, 10 mL, Intravenous, 2 times per day, Elio Huerta DO, 10 mL at 04/25/192028 sodium chloride flush 0.9 % injection 10 mL, 10 mL, Intravenous, PRN, Elio Huerta DO acetaminophen (TYLENOL) tablet 650 mg, 650 mg, Oral, Q6H PRN, Elio Huerta DO, 650 mg at 04/25/19 0832 magnesium hydroxide (MILK OF MAGNESIA) 400 MG/5ML suspension 30 mL, 30 mL, Oral, Daily PRN, Elio Huerta DO promethazine (PHENERGAN) tablet 12.5 mg, 12.5 mg, Oral, Q6H PRN, Elio Huerta DO ondansetron (ZOFRAN) injection 4 mg, 4 mg, Intravenous, Q6H PRN, Elio Huerta DO enoxaparin (LOVENOX) injection 40 mg, 40 mg, Subcutaneous, Daily, Elio Huerta DO, 40 mg at 04/25/19 0831 sodium chloride flush 0.9 % injection 10 mL, 10 mL, Intracatheter, Q8H, Elio Huerta DO, 10 mL at 04/26/19 0324 Continuous Infusions: Allergies: Fluconazole and Naproxen Review of Systems Constitutional: Positive for fatigue. HENT: Negative for trouble swallowing and voice change. Eyes: Negative for visual disturbance. Respiratory: Negative for cough and shortness of breath. Cardiovascular: Negative for palpitations. Gastrointestinal: Negative for diarrhea and nausea. Genitourinary: Negative for dysuria. Musculoskeletal: Negative for back pain. Skin: Negative for pallor. Neurological: Negative for dizziness, tremors, seizures, syncope, facial asymmetry, speech difficulty, weakness, light-headedness, numbness and headaches. Psychiatric/Behavioral: Negative for decreased concentration. The patient is not nervous/anxious. Objective: Telemetry: Arrhythmia:No Physical Examination: Patient Vitals for the past 8 hrs: BP Pulse Resp SpO2 04/26/19 0500 125/85 60 15 98 % 04/26/19 0400 115/79 65 18 96 % 04/26/19 0200 121/72 72 17 99 % 04/26/19 0000 106/61 68 17 96 % No intake/output data recorded. General Physical Examination: General: well nourished, well developed, obese and calm HEENT:Normocephalic, atraumatic CV: S1+S2, RRR, no MRG. Pulm:CTA b/l, unlabored Abdomen: Soft NT/ND. BS + Skin: Intact without ulcers, breakdowns or discoloration Extremities: normal with no edema or cyanosis Orthopedic limitation; N/A Pulses: Intact peripherally Carotid auscultation :No bruits Neurological Examination: Higher Functions: Mental Status Exam: Level of Alertness:Awake Orientation: A&Ox3 Memory: intact Fund of Knowledge: limited Language: intact Dysarthria not noted Cranial Nerves: -II Visual acuity: abnormal, limited due to patient unable to perform exam -II Visual kiran: normal -III Pupils (~ 3 mm OD, 3 mm OU) equal, round, reactive to light -III-IV- Extraocular Movements: intact -Nystagmus not present -Saccades and pursuits normal -V Facial sensation: intact Corneal's Intact bilateral -VII Facial strength: intact -VIII Hearing: intact -IX-X- Gag reflex present -X Palate:intact -XI Shoulder shrug: intact -XII Tongue movement: normal Motor Examination: Tone after evaluation of 4 limbs, the following findings applied: Normal -Bulk: normal -Muscle Stretchafter evaluation of all limbs, and axial musculature the following findings applied: Drift: absent, moves all extremities symmetrically -Reflexes: after evaluation of 4 limbs, the following findings applied ; Abnormal -Plantar responce: Flexor bilaterally Sensory Intact Coordination: Arms intact Legs intact Tremors not present Gait abnormal, patient unable to walk due to acute circumstances / bedrest / safety concerns ANCILLARY Last 24hr: Antiepileptic levels: Recent Labs 04/25/19 0555 PHENYTOIN 5.3* VALPROATE <10* CT Head 04/21/19: Unremarkable noncontrast CT scan of the head. No evidence of acute intracranial process. EEG 04/22/19: Impression: This abnormal EEG is consistent with potential epileptogenicity in the left anterior to mid temporal region occurring in the context of bilateral independent left and right focal cerebral dysfunction in the anterior to mid temporal regions. The background is consistent with severe generalized nonspecific cerebral dysfunction. No clear seizures were recorded. ASSESSMENT / PLAN/RECOMMENDATIONS: Status epilepticus - In setting of epilepsy, known non-compliance with AED's, multiple hospital admissions due to same. Phenytoin level subtherapeutic - Continue Gabapentin 300 BID, Keppra 1000mg BID, Topamax 100mg BID (home doses), Dilantin stopped 04/25 - Started on Phenobarbital to 120mg q6 hrs -- tolerating, level 9.9, continue to monitor - 24 hr EEG completed, ready pending - Maintain seizure precautions Fluctuating encephalopathy - Medication effect vs post-ictal? - 24 hr EEG (pending) Non-compliance/Cognitive deficits - Psych following here HTN - Better control - Per primary Await EEG. Anticipate discharge once phenobarbital level therapeutic. Patient discussed with Dr. Mills * Dary Corbin MD - 04/26/2019 7:29 AM EST Med Team Progress Note Mary Hopkinsner : 1985(33 y.o.) Date: April 26, 2019 Med Team: A Attending: Dr. Farr Chief Complaint: ROD Subjective: No acute overnight events. Pt tearful this AM, states she talked to last night and misses her children. Still endorses a mild headache at same location. Had a small BM yesterday. Eating well.Denies fevers, chills, chest pain, SOB, n/v. Review of Systems Constitutional: Negative for activity change, appetite change, chills and fever. Eyes: Negative for photophobia and visual disturbance. Respiratory: Negative for cough and shortness of breath. Cardiovascular: Negative for chest pain. Gastrointestinal: Negative for abdominal distention, abdominal pain, diarrhea, constipation, nauseaand vomiting. Musculoskeletal: Positive for back pain (chronic, everywhere). Skin: Negative for pallor and rash. Neurological: Positive for headaches. Negative for dizziness, facial asymmetry, speech difficulty, weakness, light-headedness and numbness. Psychiatric/Behavioral: Negative for agitation, behavioral problems. Scheduled Meds: polyethylene glycol 17 g Oral Daily sennosides-docusate sodium 2 tablet Oral Daily PHENobarbital IVPB 120 mg Intravenous Q6H topiramate 100 mg Oral BID gabapentin 300 mg Oral BID levETIRAcetam 1,000 mg Oral BID amLODIPine 5 mg Oral Daily sodium chloride flush 10 mL Intravenous 2 times per day enoxaparin 40 mg Subcutaneous Daily sodium chloride flush 10 mL Intracatheter Q8H Objective: BP 109/65 Pulse 74 Temp 97.1 F (36.2 C) (Temporal) Resp 14 Ht 5' 8 (1.727 m) Wt 285 lb 11.5 oz (129.6 kg) SpO2 100% BMI 43.44 kg/m Physical Exam Constitutional: General: She is not in acute distress. Appearance: She is obese. She is not ill-appearing. HENT: Head: Normocephalic and atraumatic. Eyes: General: Right eye: No discharge. Left eye: No discharge. Extraocular Movements: Extraocular movements intact. Pupils: Pupils are equal, round, and reactive to light. Neck: Musculoskeletal: Normal range of motion and neck supple. Cardiovascular: Rate and Rhythm: Normal rate and regular rhythm. Heart sounds: No murmur. No gallop. Pulmonary: Effort: Pulmonary effort is normal. No respiratory distress. Breath sounds: No wheezing, rhonchi or rales. Abdominal: General: Abdomen is flat. Bowel sounds are normal. There is no distension. Palpations: Abdomen is soft. Tenderness: There is no abdominal tenderness. Musculoskeletal: Normal range of motion. General: No swelling, tenderness, deformity or signs of injury. Skin: General: Skin is warm and dry. Neurological: General: No focal deficit present. Mental Status: She is alert and oriented to person, place, and time. Mental status is at baseline. Cranial Nerves: No cranial nerve deficit. Sensory: No sensory deficit. Motor: No weakness. Psychiatric: Comments: Normal mood and affect. Tearful. [facility] within last 24 hours Lab Results Component Value Date/Time WBC 5.5 04/26/2019 06:39 AM Hemoglobin 11.7 04/26/2019 06:39 AM Hematocrit 36.5 04/26/2019 06:39 AM Platelets 245 04/26/2019 06:39 AM MCV 78.4 (L) 04/26/2019 06:39 AM Lab Results Component Value Date/Time Sodium 139 04/26/2019 06:39 AM Potassium 3.8 04/26/2019 06:39 AM Chloride 109 (H) 04/26/2019 06:39 AM CO2 22 04/26/2019 06:39 AM BUN 6 (L) 04/26/2019 06:39 AM CREATININE 0.72 04/26/2019 06:39 AM Glucose 81 04/26/2019 06:39 AM Calcium 9.0 04/26/2019 06:39 AM Magnesium 1.9 04/26/2019 06:39 AM Phosphorus 3.7 04/26/2019 06:39 AM Assessment and Plan: Status Epilepticus in setting of poorly controlled seizure disorder (medication non-compliance) -2 episodes of generalized tonic clonic seizures on 04/21 that lasted several minutes (witnessed at home and en route to ED) -at time of admission, pt had low phenytoin levels demonstrating non-compliance (similar hx in the past) -home AEDs include gabapentin 300 BID, keppra 1000 BID, phenytoin 150 BID, topiramate 100 BID -neuro following, appreciate recs -will DC phenytoin, continue phenobarb (plan is for IV phenobarb until levels are therapeutic) -PRN ativan for seizures -seizure precautions, fall precautions -CT head WNL -EEG as above; await 24-hr EEG results -monitor electrolytes closely and replace as necessary HTN -goal SBP <140 -BP is improving and more stable, avg systolics 110 in past 24h -continue norvasc 5 (home dose of 10) Cognitive Impairment -per patient, assists w/ IADL's -spoke w/ immigration case manager this AM, did have a home visit at her previous housing location and at that time appear was capable of caring for the pt and providing support -following up with immigration case manager regarding [facility] board visit for further services and behavioral health eval, also discussed another home visit at this new location -psych following, appreciate recs -pt still does not have capacity for medical decision making -will need to f/u with immigration case manager regarding in-home counseling, pt's mailing prescriptions if ok at new address; f/u with [facility] to discuss pt's tx and compliance; meeting with family; ethics consult Tobacco abuse -deputy chief counsel on cessation DVT Prophylaxis: lovenox Associated attestation - Ashley Farr MD - 04/26/2019 8:37 PM EST Attending Supervising Physician's Attestation Statement for Progress Note I performed a history and physical examination on the patient and discussed the management with theresident physician. I reviewed and agree with the findings and plan as documented in their note except as amended in blue font. Continue to f/u social issues for outpatient. Given conversations today, would recommend increased support of at home in caring for children (with mentioned [employer], home health, case workers, PP) prior to statement of expert eval/application of legal guardianship other than using as proxy. If we get to that point (I.e. if patient comes BACK with status and low AED levels), would consult ethics at that time. Discussed with: [x]Residents [x]Patient/Family [x]RN []Consultants []SW/TCC []Other Reviewed: [x]Epic notes []Radiology studies [x]Labs []EKG [x]Other- tele * Sharron Hill, 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 - 04/25/2019 7:23 AM EST PROGRESS NOTE. NEUROLOGY Patient Name:Mary Claudio Patient : 1985 Acct: [id number] Date of Admission: 04/21/2019 Room/Bed: [facility] PCP: GALI HIDALGO Patient location ICU Remains in the hospital due to persistent unresolved acute issues, Subjective: 33F a PMH of epilepsy (on multiple AED's, non-compliant, multiple hospital admission for status epilepticus due to non-compliance,, HTN, obesity, depression presented to [facility] ER 04/21 from [facility] with status epilepticus. Dilantin level subtherapeutic. Required intubation. Transferred out to floor. New Complaint: Phenobarbital 5.1. Phenytoin level 5.3. Sedation:No Diet/TF: Regular Law: Yes VTE prophylaxis: YES Lovenox Antithrombotic therapy in first 24 hrs: Contraindicated because not stroke Statin therapy for stroke stroke patients: N/A, not stroke or LDL < 70 Anticoagulation on AF patients: N/A no history of AF Activity: As tolerated Disposition: TBD Current Hospital Medications: Current Facility-Administered Medications: PHENobarbital (LUMINAL) 120 mg in sodium chloride 0.9 % 100 mL IVPB, 120 mg, Intravenous, BID, Sharron Hill, 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, Stopped at 04/24/192119 phenytoin (DILANTIN) chewable tablet 100 mg, 100 mg, Oral, TID, Twan Can MD, 100 mg at 04/24/192055 topiramate (TOPAMAX) tablet 100 mg, 100 mg, Oral, BID, Twan Can MD, 100 mg at 04/24/192055 gabapentin (NEURONTIN) capsule 300 mg, 300 mg, Oral, BID, Elio Huerta DO, 300 mg at 04/24/192055 levETIRAcetam (KEPPRA) tablet 1,000 mg, 1,000 mg, Oral, BID, Elio Huerta DO, 1,000 mg at 04/24/192055 amLODIPine (NORVASC) tablet 5 mg, 5 mg, Oral, Daily, Elio Huerta DO, 5 mg at 04/24/19822 LORazepam (ATIVAN) injection 2 mg, 2 mg, Intravenous, Q4H PRN, Elio Huerta DO sodium chloride flush 0.9 % injection 10 mL, 10 mL, Intravenous, 2 times per day, Elio Huerta DO, 10 mL at 04/24/192055 sodium chloride flush 0.9 % injection 10 mL, 10 mL, Intravenous, PRN, Elio Huerta DO acetaminophen (TYLENOL) tablet 650 mg, 650 mg, Oral, Q6H PRN, Elio Huerta DO, 650 mg at 04/24/19 08 magnesium hydroxide (MILK OF MAGNESIA) 400 MG/5ML suspension 30 mL, 30 mL, Oral, Daily PRN, Elio Huerta DO promethazine (PHENERGAN) tablet 12.5 mg, 12.5 mg, Oral, Q6H PRN, Elio Huerta DO ondansetron (ZOFRAN) injection 4 mg, 4 mg, Intravenous, Q6H PRN, Elio Huerta DO enoxaparin (LOVENOX) injection 40 mg, 40 mg, Subcutaneous, Daily, Elio Huerta DO, 40 mg at 04/24/19 0822 sodium chloride flush 0.9 % injection 10 mL, 10 mL, Intracatheter, Q8H, Elio Huerta DO, 10 mL at 04/24/19 2102 Continuous Infusions: Allergies: Fluconazole and Naproxen Review of Systems Constitutional: Positive for fatigue. HENT: Negative for trouble swallowing and voice change. Eyes: Negative for visual disturbance. Respiratory: Negative for cough and shortness of breath. Cardiovascular: Negative for palpitations. Gastrointestinal: Negative for diarrhea and nausea. Genitourinary: Negative for dysuria. Musculoskeletal: Negative for back pain. Skin: Negative for pallor. Neurological: Negative for dizziness, tremors, seizures, syncope, facial asymmetry, speech difficulty, weakness, light-headedness, numbness and headaches. Psychiatric/Behavioral: Negative for decreased concentration. The patient is not nervous/anxious. Objective: Telemetry: Arrhythmia:No Physical Examination: Patient Vitals for the past 8 hrs: BP Pulse Resp SpO2 04/25/19 0630 116/73 61 18 100 % 04/25/19 0600 116/78 04/25/19 0001 124/81 04/25/19 0000 129/74 76 19 98 % No intake/output data recorded. General Physical Examination: General: well nourished, well developed, obese and calm HEENT:Normocephalic, atraumatic CV: S1+S2, RRR, no MRG. Pulm:CTA b/l, unlabored Abdomen: Soft NT/ND. BS + Skin: Intact without ulcers, breakdowns or discoloration Extremities: normal with no edema or cyanosis Orthopedic limitation; N/A Pulses: Intact peripherally Carotid auscultation :No bruits Neurological Examination: Higher Functions: Mental Status Exam: Level of Alertness:Awake Orientation: A&Ox3 Memory: intact Fund of Knowledge: limited Language: intact Dysarthria not noted Cranial Nerves: -II Visual acuity: abnormal, limited due to patient unable to perform exam -II Visual kiran: normal -III Pupils (~ 3 mm OD, 3 mm OU) equal, round, reactive to light -III-IV- Extraocular Movements: intact -Nystagmus not present -Saccades and pursuits normal -V Facial sensation: intact Corneal's Intact bilateral -VII Facial strength: intact -VIII Hearing: intact -IX-X- Gag reflex present -X Palate:intact -XI Shoulder shrug: intact -XII Tongue movement: normal Motor Examination: Tone after evaluation of 4 limbs, the following findings applied: Normal -Bulk: normal -Muscle Stretchafter evaluation of all limbs, and axial musculature the following findings applied: Drift: absent, moves all extremities symmetrically -Reflexes: after evaluation of 4 limbs, the following findings applied ; Abnormal -Plantar responce: Flexor bilaterally Sensory Intact Coordination: Arms intact Legs intact Tremors not present Gait abnormal, patient unable to walk due to acute circumstances / bedrest / safety concerns ANCILLARY Last 24hrs Recent Results (from the past 24 hour(s)) CBC auto differential Collection Time: 04/25/19 5:55 AM Result Value Ref Range WBC 7.3 3.6 - 10.7 10*3/uL RBC 4.49 3.80 - 5.20 10*6/uL Hemoglobin 11.5 (L) 11.7 - 16.0 g/dL Hematocrit 35.5 35.0 - 47.0 % MCV 79.1 79.0 - 98.0 fL MCH 25.6 (L) 26.0 - 34.0 pg MCHC 32.3 32.0 - 36.0 % RDW 18.9 (H) 11.5 - 14.5 % Platelets 236 140 - 440 10*3/uL MPV 9.2 7.4 - 10.4 fL Granulocytes % 67.4 40.0 - 80.0 % Lymphocyte % 18.6 (L) 20.0 - 40.0 % Monocytes 8.0 2.0 - 10.0 % Eosinophils 5.2 1.0 - 6.0 % Basophils 0.8 0.0 - 2.0 % Absolute Neut # 4.9 1.8 - 7.0 10*3/uL Absolute Lymph # 1.4 1.0 - 4.3 10*3/uL Absolute [place] # 0.6 0.0 - 0.8 10*3/uL Absolute Eos # 0.4 0.0 - 0.5 10*3/uL Absolute Baso # 0.1 0.0 - 0.2 10*3/uL Magnesium Collection Time: 04/25/19 5:55 AM Result Value Ref Range Magnesium 1.8 1.6 - 2.3 mg/dL Phosphorus Collection Time: 04/25/19 5:55 AM Result Value Ref Range Phosphorus 4.2 2.5 - 4.5 mg/dL Basic Metabolic Panel w/ Reflex to MG Collection Time: 04/25/19 5:55 AM Result Value Ref Range Sodium 137 135 - 145 mmol/L Potassium 3.6 3.5 - 5.1 mmol/L Chloride 108 (H) 98 - 107 mmol/L CO2 22 22 - 30 mmol/L Anion Gap 7 NA Glucose 83 70 - 100 mg/dL BUN 7 7 - 20 mg/dL CREATININE 0.72 0.52 - 1.25 mg/dL eGFR >60.0 >60 mL/min EGFR IF NonAfrican Peruvian >60.0 >60 mL/min Calcium 8.8 8.4 - 10.4 mg/dL Phenobarbital Level Collection Time: 04/25/19 5:55 AM Result Value Ref Range Phenobarbital 5.1 (L) 15.0 - 40.0 ug/mL Valproic Acid Level, Total Collection Time: 04/25/19 5:55 AM Result Value Ref Range Valproic Acid Lvl <10 (L) 50 - 120 ug/mL Antiepileptic levels: Recent Labs 04/24/19 0208 04/25/19 0555 PHENYTOIN 7.6* -- VALPROATE -- <10* HgA1c: No results for input(s): LABA1C in the last [address] Head 04/21/19: Unremarkable noncontrast CT scan of the head. No evidence of acute intracranial process. EEG 04/22/19: Impression: This abnormal EEG is consistent with potential epileptogenicity in the left anterior to mid temporal region occurring in the context of bilateral independent left and right focal cerebral dysfunction in the anterior to mid temporal regions. The background is consistent with severe generalized nonspecific cerebral dysfunction. No clear seizures were recorded. ASSESSMENT / PLAN/RECOMMENDATIONS: Status epilepticus - In setting of epilepsy, known non-compliance with AED's, multiple hospital admissions due to same. Phenytoin level subtherapeutic - Continue Gabapentin 300 BID, Keppra 1000mg BID, Topamax 100mg BID (home doses) - STOP Dilantin - Increase Phenobarbital to 120mg q6 hrs, recheck level tomorrow - 24 hr EEG pending - Maintain seizure precautions Fluctuating encephalopathy - Medication effect vs post-ictal? - Will need 24 hr EEG (pending) Non-compliance/Cognitive deficits - Previously evaluated by psych to assess capacity and was not felt to be candidate for guardianship at that time. Now has immigration case manager HTN - Better control - Per primary Patient seen and discussed with Dr. Mills * Dary Corbin MD - 04/25/2019 7:22 AM EST Med Team Progress Note Mary Claudio : 1985(33 y.o.) Date: April 25, 2019 Med Team: Randal Attending: Dr. Farr Chief Complaint: Seizures Subjective: Pt c/o continued headache, improved compared to yesterday, in the same location. Denies associated photophobia, sensitivity to sound, dizziness, lightheadedness. Denies focal weakness or numbness. Eating well. Not having regular BM's. Denies fevers, chills, chest pain, SOB, n/v. Mood improved today. Review of Systems Constitutional: Negative for activity change, appetite change, chills and fever. Eyes: Negative for photophobia and visual disturbance. Respiratory: Negative for cough and shortness of breath. Cardiovascular: Negative for chest pain. Gastrointestinal: Positive for constipation. Negative for abdominal distention, abdominal pain, diarrhea, nausea and vomiting. Musculoskeletal: Positive for back pain (chronic, everywhere). Skin: Negative for pallor and rash. Neurological: Positive for headaches. Negative for dizziness, facial asymmetry, speech difficulty, weakness, light-headedness and numbness. Psychiatric/Behavioral: Negative for agitation, behavioral problems and dysphoric mood. Scheduled Meds: PHENobarbital IVPB 120 mg Intravenous BID phenytoin 100 mg Oral TID topiramate 100 mg Oral BID gabapentin 300 mg Oral BID levETIRAcetam 1,000 mg Oral BID amLODIPine 5 mg Oral Daily sodium chloride flush 10 mL Intravenous 2 times per day enoxaparin 40 mg Subcutaneous Daily sodium chloride flush 10 mL Intracatheter Q8H Objective: BP 116/73 Pulse 61 Temp 97.4 F (36.3 C) (Temporal) Resp 18 Ht 5' 8 (1.727 m) Wt 285 lb 11.5 oz (129.6 kg) SpO2 100% BMI 43.44 kg/m Physical Exam Constitutional: General: She is not in acute distress. Appearance: She is obese. She is not ill-appearing. HENT: Head: Normocephalic and atraumatic. Eyes: General: Right eye: No discharge. Left eye: No discharge. Extraocular Movements: Extraocular movements intact. Pupils: Pupils are equal, round, and reactive to light. Neck: Musculoskeletal: Normal range of motion and neck supple. Cardiovascular: Rate and Rhythm: Normal rate and regular rhythm. Heart sounds: No murmur. No gallop. Pulmonary: Effort: Pulmonary effort is normal. No respiratory distress. Breath sounds: No wheezing, rhonchi or rales. Abdominal: General: Abdomen is flat. Bowel sounds are normal. There is no distension. Palpations: Abdomen is soft. Tenderness: There is no abdominal tenderness. Musculoskeletal: Normal range of motion. General: No swelling, tenderness, deformity or signs of injury. Skin: General: Skin is warm and dry. Neurological: General: No focal deficit present. Mental Status: She is alert and oriented to person, place, and time. Mental status is at baseline. Cranial Nerves: No cranial nerve deficit. Sensory: No sensory deficit. Motor: No weakness. Psychiatric: Comments: Normal mood and affect. [facility] within last 24 hours Lab Results Component Value Date/Time WBC 7.3 04/25/2019 05:55 AM Hemoglobin 11.5 (L) 04/25/2019 05:55 AM Hematocrit 35.5 04/25/2019 05:55 AM Platelets 236 04/25/2019 05:55 AM MCV 79.1 04/25/2019 05:55 AM Lab Results Component Value Date/Time Sodium 137 04/25/2019 05:55 AM Potassium 3.6 04/25/2019 05:55 AM Chloride 108 (H) 04/25/2019 05:55 AM CO2 22 04/25/2019 05:55 AM BUN 7 04/25/2019 05:55 AM CREATININE 0.72 04/25/2019 05:55 AM Glucose 83 04/25/2019 05:55 AM Calcium 8.8 04/25/2019 05:55 AM Magnesium 1.8 04/25/2019 05:55 AM Phosphorus 4.2 04/25/2019 05:55 AM Assessment and Plan: Status Epilepticus in setting of poorly controlled seizure disorder (medication non-compliance) -2 episodes of generalized tonic clonic seizures on 04/21 that lasted several minutes (witnessed at home and en route to ED) -at time of admission, pt had low phenytoin levels demonstrating non-compliance (similar hx in the past) -home AEDs include gabapentin 300 BID, keppra 1000 BID, phenytoin 150 BID, topiramate 100 BID -neuro following, appreciate recs -will DC phenytoin, continue phenobarb -PRN ativan for seizures -seizure precautions, fall precautions -CT head WNL -EEG as above; will need 24-hr EEG -monitor electrolytes closely and replace as necessary HTN -goal SBP <140 -labile SBP ranging from 89-138 in past 24h -continue norvasc 5 (home dose of 10) Cognitive Impairment -per patient, assists w/ IADL's -spoke w/ immigration case manager this AM, did have a home visit at her previous housing location and at that time appear was capable of caring for the pt and providing support -following up with immigration case manager regarding [facility] board visit for further services and behavioral health eval, also discussed another home visit at this new location -will consult psych to evaluate for capacity/competency Tobacco abuse -deputy chief counsel on cessation DVT Prophylaxis: lovenox Associated attestation - Ashley Farr MD - 04/25/2019 12:22 PM EST Attending Supervising Physician's Attestation Statement for Progress Note I performed a history and physical examination on the patient and discussed the management with theresident physician. I reviewed and agree with the findings and plan as documented in their note. Feeling better than yesterday. Achiness is resolved. Stated she had a BM that was soft- no issues. Eating okay, though didn't eat breakfast this mornign and couldn't really tell me why. TLC in IJ c/d/I without erythema, induration, or tenderness. 2 ecchymosis on medial right arm soft,healing- non-tender. Discussed with: [x]Residents [x]Patient/Family [x]RN []Consultants []SW/TCC []Other Reviewed: [x]Epic notes []Radiology studies [x]Labs []EKG [x]Other- tele (no alarms) Subsequent Inpatient: Spent over 51% of total time >25 minutes counseling or coordinating care, and provided discussion regarding plan of care, 24 hour EEG. * Ashley Farr MD - 04/24/2019 7:22 AM EST Med Team Progress Note Mary Claudio : 1985(33 y.o.) Date: April 24, 2019 Med Team: A Attending: Dr. Farr Chief Complaint: Seizures Subjective: No acute overnight events. Pt states that she is confused about what happened. Provided her w/ explanation of hospital course. Pt appears to understand. Pt is very tearful stating that she wants to go home to her four children. Explained that she should stay for further medical management, which she was agreeable to. She expressed feeling overwhelmed with her diagnosis and managing her everyday activities. Stated that she doesn't feel like she has enough support. Previously lived close to her father. Becomes tearful when discussing that she would like to live with her father but is unable to because there is not enough space (he lives with her brother, 2 step sisters, and girlfriend). Mentions that her mother when she was 16. Is unable to tell me why she moved further from herfather, states she can't remember. Lives w/ in a duplex. He helps with her medications. Feels safe at home, although does mention that he gets mad at her, could not tell me for what reasons. Overall, this is a difficult social situation and is hard to completely understand her home background at this time. She is experiencing a headache this AM. Points to the top of her head. Denies vision changes, photophobia, dizziness, lightheadedness, chest pain, SOB, n/v. Pt is unsure if she has had a recent BM. Eating well. No further questions or concerns. Patient seen and examined after morning rounds. Laying completely flat in bed staring at ceiling upon entering room. Responded after multiple verbal attempts and then was fully conversant. States sheis achey and hurts everywhere. Endorses lack of appetite and hasn't eating lunch or breakfast, though states she normally arises late. No other concerns right now. Not tearful when I talked with her. States she has not had any visitors from her insurance (family preservation caseworker) since being d/c'd from the hospital. Medications are mailed to her. She is not sure if she missed any doses or not. helps sometimes, though she did not seem convinced it was enough. Review of Systems Constitutional: Negative for appetite change, chills and fever. Eyes: Negative for photophobia and visual disturbance. Respiratory: Negative for cough and shortness of breath. Cardiovascular: Negative for chest pain and leg swelling. Gastrointestinal: Negative for abdominal distention, abdominal pain, diarrhea, nausea and vomiting. Musculoskeletal: Positive for back pain (chronic). Skin: Negative for pallor and rash. Neurological: Positive for headaches. Negative for dizziness, facial asymmetry, speech difficulty, weakness, light-headedness and numbness. Psychiatric/Behavioral: Positive for dysphoric mood. Negative for agitation and behavioral problems. Scheduled Meds: PHENobarbital 120 mg Intravenous 3 times per day gabapentin 300 mg Oral BID levETIRAcetam 1,000 mg Oral BID phenytoin 100 mg Per NG tube TID amLODIPine 5 mg Oral Daily sodium chloride flush 10 mL Intravenous 2 times per day enoxaparin 40 mg Subcutaneous Daily topiramate 100 mg Per NG tube BID sodium chloride flush 10 mL Intracatheter Q8H Objective: BP 118/72 Pulse 69 Temp 97.4 F (36.3 C) Resp 22 Ht 5' 8 (1.727 m) Wt 285 lb 11.5 oz (129.6 kg) SpO2 97% BMI 43.44 kg/m Physical Exam Constitutional: General: She is not in acute distress. Appearance: She is obese. She is not ill-appearing. HENT: Head: Normocephalic and atraumatic. Eyes: General: Right eye: No discharge. Left eye: No discharge. Extraocular Movements: Extraocular movements intact. Pupils: Pupils are equal, round, and reactive to light. Neck: Musculoskeletal: Normal range of motion and neck supple. Cardiovascular: Rate and Rhythm: Normal rate and regular rhythm. Heart sounds: No murmur. No gallop. Pulmonary: Effort: Pulmonary effort is normal. No respiratory distress. Breath sounds: No wheezing, rhonchi or rales. Abdominal: General: Abdomen is flat. Bowel sounds are normal. There is no distension. Palpations: Abdomen is soft. Tenderness: There is no abdominal tenderness. Musculoskeletal: Normal range of motion. General: No swelling, tenderness, deformity or signs of injury. Skin: General: Skin is warm and dry. Neurological: General: No focal deficit present. Mental Status: She is alert and oriented to person, place, and time. Mental status is at baseline. Cranial Nerves: No cranial nerve deficit. Sensory: No sensory deficit. Motor: No weakness. Psychiatric: Comments: Tearful. PIV site c/d/i without erythema, induration, or tenderness. Patient attempted to stand up when I was in the room and was very unsteady and weak and sat right back down in bed. [facility] within last 24 hours Lab Results Component Value Date/Time WBC 6.9 04/24/2019 02:08 AM Hemoglobin 11.2 (L) 04/24/2019 02:08 AM Hematocrit 34.1 (L) 04/24/2019 02:08 AM Platelets 229 04/24/2019 02:08 AM MCV 79.1 04/24/2019 02:08 AM Lab Results Component Value Date/Time Sodium 136 04/24/2019 02:08 AM Potassium 3.5 04/24/2019 02:08 AM Chloride 106 04/24/2019 02:08 AM CO2 23 04/24/2019 02:08 AM BUN 6 (L) 04/24/2019 02:08 AM CREATININE 0.70 04/24/2019 02:08 AM Glucose 82 04/24/2019 02:08 AM Calcium 8.9 04/24/2019 02:08 AM Magnesium 1.8 04/24/2019 02:08 AM Phosphorus 3.2 04/24/2019 02:[address] Head 04/21/19: Unremarkable noncontrast CT scan of the head. No evidence of acute intracranial process. EEG 04/22/19: Impression: This abnormal EEG is consistent with potential epileptogenicity in the left anterior to mid temporal region occurring in the context of bilateral independent left and right focal cerebral dysfunction in the anterior to mid temporal regions. The background is consistent with severe generalized nonspecific cerebral dysfunction. No clear seizures were recorded. Assessment and Plan: Acute Hypoxic Respiratory Failure in setting of status epilepticus/encephalopathy- resolving -required intubation 04/21-04/02 03/31 seizures/encephalopathy w/ inability to protect airway -was on abx for aspiration coverage, as pt was found down and had multiple seizures before airway was established, but was DC'd as CXR have been clear and no signs of infx (procal 0.1, no leukocytosis, afebrile, blood cx neg) -Good O2 sats on RA Respiratory failure resolved Status Epilepticus in setting of poorly controlled seizure disorder (medication non-compliance) -2 episodes of generalized tonic clonic seizures on 04/21 that lasted several minutes (witnessed at home and en route to ED) -at time of admission, pt had low phenytoin levels demonstrating non-compliance (similar hx in the past) -home AEDs include gabapentin 300 BID, keppra 1000 BID, phenytoin 150 BID, topiramate 100 BID -neuro following, appreciate recs -continue home meds at current doses, adjusted phenytoin to 100 TID -started on phenobarb -PRN ativan for seizures -seizure precautions, fall precautions -CT head WNL -EEG as above -monitor electrolytes closely and replace as necessary Will need 24 hour EEG per neuro. Per last notes in January, she was supposed to follow up with [facility] in [place] and also have home visits from her immigration case manager from [place] as well as a behavioral health immigration case manager to ensure medication compliance and for assessment by [facility] Board of . Unclear if this happened. Team to make phone calls today to assess. HTN -goal SBP <140 -labile SBP ranging from 89-138 in past 24h -continue norvasc 5 (home dose of 10) Cognitive Impairment -per patient, assists w/ IADL's -complex home/social situation, I do think pt needs more support regarding her everyday life and care for her medical condition -will f/u with family preservation caseworker regarding guardianship issues Per last psych notes, patient did not have capacity to make medical decisions, but were deferring decisions to and would f/u closely outpatient. Unclear if this happened. Given that she is back in the hospital with non- compliance, may need to pursue legal guardianship at this point and not rely on . Team to work with SW to figure out what has happened at home for follow up and willkely re-consult psych for further assistance after information obtained. Tobacco abuse -deputy chief counsel on cessation DVT Prophylaxis: lovenox Attending Supervising Physician's Attestation Statement for Progress Note I performed a history and physical examination on the patient and discussed the management with theresident physician. I reviewed and agree with the findings and plan as documented in their note except as amended in blue font. Discussed with: [x]Residents [x]Patient/Family []RN []Consultants []SW/TCC []Other Reviewed: [x]Epic notes []Radiology studies [x]Labs []EKG [x]Other- tele Subsequent Inpatient: Spent over 51% of total time > 25 minutes counseling or coordinating care,and provided discussion regarding outpatient follow up, immigration case manager. * Sharron Hill, 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 - 04/24/2019 7:19 AM EST PROGRESS NOTE. NEUROCRITICAL CARE Patient Name:Mary Claudio Patient : 1985 Acct: [id number] Date of Admission: 04/21/2019 Room/Bed: 1329/[facility] PCP: GALI HIDALGO Patient location ICU Remains in the hospital due to persistent unresolved acute issues, Subjective: 33F a PMH of epilepsy (on multiple AED's, non-compliant, multiple hospital admission for status epilepticus due to non-compliance, last seen by us in January 2019), HTN, obesity, depression presented to [facility] ER 04/21 from [facility] with status epilepticus. Dilantin level subtherapeutic. Intubated and sedated. Extubated 04/22. New Complaint: Transferred out to floor yesterday. Sedation:No Diet/TF:NPO Law: Yes rt VTE prophylaxis: YES Lovenox Antithrombotic therapy in first 24 hrs: Contraindicated because not stroke Statin therapy for stroke stroke patients: N/A, not stroke or LDL < 70 Anticoagulation on AF patients: N/A no history of AF Activity: As tolerated Disposition: TBD Current Hospital Medications: Current Facility-Administered Medications: PHENobarbital (LUMINAL) injection 120 mg, 120 mg, Intravenous, 3 times per day, Sharron Hill APRN - ASHLEY gabapentin (NEURONTIN) capsule 300 mg, 300 mg, Oral, BID, Elio Huerta DO, 300 mg at 04/23/192049 levETIRAcetam (KEPPRA) tablet 1,000 mg, 1,000 mg, Oral, BID, Elio Huerta DO, 1,000 mg at 04/23/192237 phenytoin (DILANTIN) chewable tablet 100 mg, 100 mg, Per NG tube, TID, Elio Huerta DO, 100 mg at 04/23/192049 amLODIPine (NORVASC) tablet 5 mg, 5 mg, Oral, Daily, Elio Huerta DO, 5 mg at 04/23/19935 LORazepam (ATIVAN) injection 2 mg, 2 mg, Intravenous, Q4H PRN, Elio Huerta DO sodium chloride flush 0.9 % injection 10 mL, 10 mL, Intravenous, 2 times per day, Elio Huerta DO, 10 mL at 04/23/192050 sodium chloride flush 0.9 % injection 10 mL, 10 mL, Intravenous, PRN, Elio Huerta DO acetaminophen (TYLENOL) tablet 650 mg, 650 mg, Oral, Q6H PRN, Elio Huerta DO, 650 mg at 04/23/19 1223 magnesium hydroxide (MILK OF MAGNESIA) 400 MG/5ML suspension 30 mL, 30 mL, Oral, Daily PRN, Elio Huerta DO promethazine (PHENERGAN) tablet 12.5 mg, 12.5 mg, Oral, Q6H PRN, Elio Huerta DO ondansetron (ZOFRAN) injection 4 mg, 4 mg, Intravenous, Q6H PRN, Elio Huerta DO enoxaparin (LOVENOX) injection 40 mg, 40 mg, Subcutaneous, Daily, Elio Huerta DO, 40 mg at 04/23/19935 topiramate (TOPAMAX) tablet 100 mg, 100 mg, Per NG tube, BID, Elio Huerta DO, 100 mg at 04/23/19 2050 sodium chloride flush 0.9 % injection 10 mL, 10 mL, Intracatheter, Q8H, Elio Huerta DO, 10 mL at 04/22/19 1300 Continuous Infusions: Allergies: Fluconazole and Naproxen Review of Systems Constitutional: Positive for fatigue. HENT: Negative for trouble swallowing and voice change. Eyes: Negative for visual disturbance. Respiratory: Negative for cough and shortness of breath. Cardiovascular: Negative for palpitations. Gastrointestinal: Negative for diarrhea and nausea. Genitourinary: Negative for dysuria. Musculoskeletal: Negative for back pain. Skin: Negative for pallor. Neurological: Positive for seizures. Negative for dizziness, tremors, syncope, facial asymmetry, speech difficulty, weakness, light-headedness, numbness and headaches. Psychiatric/Behavioral: Negative for decreased concentration. The patient is not nervous/anxious. Objective: Telemetry: Arrhythmia:No Physical Examination: Patient Vitals for the past 8 hrs: BP Pulse Resp SpO2 04/24/19 0500 118/72 69 22 97 % 04/24/19 0400 110/75 72 20 96 % 04/24/19 0300 (!) 105/47 81 28 99 % 04/24/19 0200 (!) 125/94 79 21 99 % 04/24/19 0100 106/70 04/24/19 0001 (!) 109/94 I/O last 3 completed shifts: In: 1292 [P.O.:600; I.V.:692] Out: 3175 [Urine:3175] General Physical Examination: General: well nourished, well developed, obese and calm HEENT:Normocephalic, atraumatic CV: S1+S2, RRR, no MRG. Pulm:CTA b/l, unlabored Abdomen: Soft NT/ND. BS + Skin: Intact without ulcers, breakdowns or discoloration Extremities: normal with no edema or cyanosis Orthopedic limitation; N/A Pulses: Intact peripherally Carotid auscultation :No bruits Neurological Examination: Higher Functions: Mental Status Exam: Level of Alertness:Awake Orientation: A&Ox3 Memory: intact Fund of Knowledge: limited Language: intact Dysarthria not noted Cranial Nerves: -II Visual acuity: abnormal, limited due to patient unable to perform exam -II Visual kiran: normal -III Pupils (~ 3 mm OD, 3 mm OU) equal, round, reactive to light -III-IV- Extraocular Movements: intact -Nystagmus not present -Saccades and pursuits normal -V Facial sensation: intact Corneal's Intact bilateral -VII Facial strength: intact -VIII Hearing: intact -IX-X- Gag reflex present -X Palate:intact -XI Shoulder shrug: intact -XII Tongue movement: normal Motor Examination: Tone after evaluation of 4 limbs, the following findings applied: Normal -Bulk: normal -Muscle Stretchafter evaluation of all limbs, and axial musculature the following findings applied: Drift: absent, moves all extremities symmetrically -Reflexes: after evaluation of 4 limbs, the following findings applied ; Abnormal -Plantar responce: Flexor bilaterally Sensory Intact Coordination: Arms intact Legs intact Tremors not present Gait abnormal, patient unable to walk due to acute circumstances / bedrest / safety concerns ANCILLARY Last 24hrs Recent Results (from the past 24 hour(s)) CBC auto differential Collection Time: 04/24/19 2:08 AM Result Value Ref Range WBC 6.9 3.6 - 10.7 10*3/uL RBC 4.31 3.80 - 5.20 10*6/uL Hemoglobin 11.2 (L) 11.7 - 16.0 g/dL Hematocrit 34.1 (L) 35.0 - 47.0 % MCV 79.1 79.0 - 98.0 fL MCH 25.9 (L) 26.0 - 34.0 pg MCHC 32.7 32.0 - 36.0 % RDW 18.7 (H) 11.5 - 14.5 % Platelets 229 140 - 440 10*3/uL MPV 9.1 7.4 - 10.4 fL Granulocytes % 59.5 40.0 - 80.0 % Lymphocyte % 25.9 20.0 - 40.0 % Monocytes 8.4 2.0 - 10.0 % Eosinophils 5.6 1.0 - 6.0 % Basophils 0.6 0.0 - 2.0 % Absolute Neut # 4.1 1.8 - 7.0 10*3/uL Absolute Lymph # 1.8 1.0 - 4.3 10*3/uL Absolute [place] # 0.6 0.0 - 0.8 10*3/uL Absolute Eos # 0.4 0.0 - 0.5 10*3/uL Absolute Baso # 0.0 0.0 - 0.2 10*3/uL Magnesium Collection Time: 04/24/19 2:08 AM Result Value Ref Range Magnesium 1.8 1.6 - 2.3 mg/dL Phosphorus Collection Time: 04/24/19 2:08 AM Result Value Ref Range Phosphorus 3.2 2.5 - 4.5 mg/dL Basic Metabolic Panel w/ Reflex to MG Collection Time: 04/24/19 2:08 AM Result Value Ref Range Sodium 136 135 - 145 mmol/L Potassium 3.5 3.5 - 5.1 mmol/L Chloride 106 98 - 107 mmol/L CO2 23 22 - 30 mmol/L Anion Gap 8 NA Glucose 82 70 - 100 mg/dL BUN 6 (L) 7 - 20 mg/dL CREATININE 0.70 0.52 - 1.25 mg/dL eGFR >60.0 >60 mL/min EGFR IF NonAfrican Peruvian >60.0 >60 mL/min Calcium 8.9 8.4 - 10.4 mg/dL Phenobarbital Level Collection Time: 04/24/19 2:08 AM Result Value Ref Range Phenobarbital <5.0 (L) 15.0 - 40.0 ug/mL Phenytoin Level, Total Collection Time: 04/24/19 2:08 AM Result Value Ref Range Phenytoin Lvl 7.6 (L) 10.0 - 20.0 ug/mL Antiepileptic levels: Recent Labs 04/24/19 0208 PHENYTOIN 7.6* HgA1c: Recent Labs 04/21/[address] Head 04/21/19: Unremarkable noncontrast CT scan of the head. No evidence of acute intracranial process. EEG 04/22/19: Impression: This abnormal EEG is consistent with potential epileptogenicity in the left anterior to mid temporal region occurring in the context of bilateral independent left and right focal cerebral dysfunction in the anterior to mid temporal regions. The background is consistent with severe generalized nonspecific cerebral dysfunction. No clear seizures were recorded. ASSESSMENT / PLAN/RECOMMENDATIONS: Status epilepticus - In setting of epilepsy, known non-compliance with AED's, multiple hospital admissions due to same. Phenytoin level subtherapeutic - Continue Gabapentin 300 BID, Keppra 1000mg BID, Dilantin 100mg TID, Topamax 100mg BID (home doses) - Phenobarbital added yesterday (continue @ 120mg BID) - Re-check levels in the AM - 24 hr EEG when able - Maintain seizure precautions Encephalopathy - Medication effect vs post-ictal? - Will need 24 hr EEG Hyponatremia - Improved - Keep WNL as hyponatremia can provoke seizures Non-compliance/Cognitive deficits - Previously evaluated by psych to assess capacity and was not felt to be candidate for guardianship at that time - Apparently has recently been set up to have case resource manager HTN - Uncontrolled - Per primary Patient seen and discussed with Dr. Mills * Ann Marie Johnson PA-C - 04/23/2019 11:59 AM EST ICU TRANSFER CHECKLIST Transfer Med Reconciliation (resume home meds if able, convert to PO if able) Complete Antibiotics (name, indication, duration, convert to PO if able) None Steroid (indication, duration, convert to PO if able) None Anticipated Tome Medications (ICU initiated) or Dose Changes and Indication No Permanently Discontinued Home Medications and Reason for medication contraindication No Law Catheter (please remove if able) No Central Line (please remove if able) No Transfer Discussed with: Dr. Escobar, Med team A If additional questions for ICU team within 24 hours of ICU transfer, page [phone] for clarifications. * Ann Marie Johnson PA-C - 04/23/2019 11:35 AM EST CRITICAL CARE DAILY PROGRESS NOTE Admit Date: 04/21/2019 PCP: GALI Calderon Patient admitted 04-22-19 after suffering a witnessed seizure at home followed by a witnessed seizure by EMS en route to the ED. She has a known seizure history and has had multiple admissions for noncompliance with her home AEDs. She was intubated on arrival to [facility] and transferred to [facility] for further management. She was successfully extubated 2-24-20. She remains in the ICU at this time. EVENTS OF LAST 24 HOURS: Patient lying in bed, easily awakes to voice. She is A&O x3 and knows she is in the hospital for seizures. She states she was taking her AEDs at home, and then quickly states she doesn't know if she was taking them. She has known cognitive delays with reported memory loss. She says she is hungry and denies CP, SOB, or abdominal pain. MEDICATIONS Scheduled Meds: gabapentin 300 mg Oral BID levETIRAcetam 1,000 mg Oral BID phenytoin 100 mg Per NG tube TID amLODIPine 5 mg Oral Daily sodium chloride flush 10 mL Intravenous 2 times per day enoxaparin 40 mg Subcutaneous Daily topiramate 100 mg Per NG tube BID sodium chloride flush 10 mL Intracatheter Q8H PRN meds: LORazepam, sodium chloride flush, acetaminophen, acetaminophen, magnesium hydroxide, promethazine, ondansetron, sodium chloride flush Objective PHYSICALEXAM: VITALS: BP 123/82 Pulse 74 Temp 98 F (36.7 C) Resp 21 Ht 5' 8 (1.727 m) Wt 285 lb 11.5 oz (129.6kg) SpO2 94% BMI 43.44 kg/m 24HRINTAKE/OUTPUT: Intake/Output Summary (Last 24 hours) at 04/23/2019 1136 Last data filed at 04/23/2019 0705 Gross per 24 hour Intake 850.46 ml Output 2415 ml Net -1564.54 ml CURRENT PULSE OXIMETRY: SpO2: 94 % 24HR PULSE OXIMETRY RANGE: SpO2 Av.7 % Min: 94 % Max: 100 % Physical Exam Vitals signs reviewed. Constitutional: Comments: Lying in bed, easily awakes to voice HENT: Head: Normocephalic and atraumatic. Nose: Nose normal. Mouth/Throat: Pharynx: Oropharynx is clear. No posterior oropharyngeal erythema. Eyes: General: No scleral icterus. Right eye: No discharge. Left eye: No discharge. Conjunctiva/sclera: Conjunctivae normal. Pupils: Pupils are equal, round, and reactive to light. Cardiovascular: Rate and Rhythm: Normal rate. Heart sounds: No friction rub. No gallop. Comments: No peripheral edema, DP pulses difficult to palpate Pulmonary: Breath sounds: No wheezing, rhonchi or rales. Comments: No accessory muscle use, unlabored on room air Abdominal: General: Bowel sounds are normal. There is no distension. Palpations: Abdomen is soft. There is no mass. Tenderness: There is no abdominal tenderness. Comments: No obvious palpable hernias or HSM Neuro: Moves bilateral UE/ LE, sensation intact Musculoskeletal: Comments: No cyanosis, no clubbing, cap refill 2-3 seconds bilateral UE Skin: General: Skin is warm and dry. Findings: No erythema or rash. Comments: No induration Psychiatric: Comments: awakes easily, A&O x3 LABS: CBC: Recent Labs 04/21/19203904/22/19 0027 04/23/19 0454 WBC 12.6* 10.9* 7.1 HGB 11.7 11.7 11.3* HCT 36.3 36.3 35.3 MCV 78.0* 78.3* 78.2* PLT 247 245 239 BMP: Recent Labs 04/21/19203904/22/197 04/23/19 0454 NA 133* 137 138 K 3.7 3.9 3.8 CL 102 106 108* CO2 24 24 24 PHOS 3.6 3.6 3.0 BUN 6* 5* 6* CREATININE 0.59 0.56 0.73 MG 1.8 1.9 2.0 LACTATE Recent Labs 04/21/192039 LACTA 0.6* LIVER PROFILE: Recent Labs 04/21/192039 AST 26 ALT 27 BILITOT 0.2 ALKPHOS 113 UA: Recent Labs 04/21/192043 COLORU Light-Yellow LEUKOCYTESUR Negative UROBILINOGEN Normal BILIRUBINUR Negative GLUCOSEU Normal KETUA Negative CULTURES: @LABRCNT(LABURIN)@ Recent Labs 04/21/19 2216 BC No growth at 1 day. No growth at 1 day. RADIOLOGY: CXR Portable: Results for orders placed during the hospital encounter of 04/21/19 XR CHEST PORTABLE Narrative Patient Name: MARY CLAUDIO ---Diagnostic Radiology--- Exam Date/Time 04/21/2019 19:39:52 EST Exam CR Chest Portable Ordering Physician MD JOSE L, MARIBELL Accession Number [id number] CPT4 Codes 17404 () Reason For Exam Line placement Report SINGLE FRONTAL VIEW OF THE CHEST CLINICAL INDICATION: Line placement TECHNIQUE: Single frontal view of the chest COMPARISON: Earlier today FINDINGS: NG tube tip is in the gastric fundus. Right jugular catheter tip is in the SVC. Endotracheal tube tip 3 cm above the sidney. Minor atelectasis at the lung bases. Lung volumes are low. Heart size normal. No pneumothorax seen. IMPRESSION: 1. Minor atelectasis at the lung bases. Tubes/lines as described. Report Dictated on --- Final --- Dictated: 04/21/2019 7:44 pm Dictating Physician: MD ZIMMERMAN JOHN R Signed Date and Time: 04/21/2019 7:47 pm Signed by: MD ZIMMERMAN JOHN R Transcribed Date and Time: 04/21/2019 7:44 REFERRING PHYSICIAN: Haroon Jones M.D. TEST #: Test - Routine Inpatient 20-Minute EEG: Room #: T314. Indication: This EEG is being requested to diagnose seizures. Findings: Posterior dominant rhythm was absent. Background was described under EEG diagnosis. Sleep was present and abnormal suggestive of sedated sleep. Drowsiness was absent. Photic stimulation was performed with no clear driving response observed. Hyperventilation was deferred. Diagnoses: 1. Frequent sharp waves and spikes in the left anterior to mid temporal region. 2. Frequent irregular delta activity occurring independently in the bilateral left and right anterior to mid temporal regions. 3. Continuous generalized low-voltage irregular delta activity intermixed with generalized fast frequency suggestive of sedation. 4. Absent posterior dominant rhythm. Impression: This abnormal EEG is consistent with potential epileptogenicity in the left anterior to mid temporal region occurring in the context of bilateral independent left and right focal cerebral dysfunction in the anterior to mid temporal regions. The background is consistent with severe generalized nonspecific cerebral dysfunction. No clear seizures were recorded. ASSESSMENT AND PLAN: Patient Active Problem List: Abnormal MRI Seizure (HCC) Altered mental status Epilepsy (HCC) History of pneumonia Respiratory failure requiring intubation ([facility]) Microcytosis Status epilepticus (HCC) Noncompliance with medication regimen Depression Acute respiratory failure with hypercapnia (HCC) Aspiration pneumonia (HCC) Acute bronchospasm Severe sepsis (HCC) Seizure disorder ([facility]) Staphylococcus hominis sepsis ([facility]) Leukocytosis Pneumonia of right lower lobe due to methicillin susceptible Staphylococcus aureus (MSSA) (HCC) Cognitive deficits Obesity 1. Acute respiratory failure likely 2/2 seizure activity- unable to protect airway/ concern for aspiration- successfully extubated 2-24-20, doing well on room air, CXR with no infiltrates consistent with PNA/ procal < 0.10- discontinue Abx 2. Status epilepticus with Seizure disorder- per chart Pt has multiple admissions due to treatment non-compliance, home meds include gabapentin/ keppra/ dilantin/ topamax, all home meds restarted, neuro following, EEG results as above 3. HTN- BP 123/82, continue norvasc- goal SBP < 140, monitor 4. Intellectual disability/ cognitive deficits/ depression- psych has seen in the past and immigration case manager from [place] was planned to follow up with patient in 2019 to set up behavioral health case resource manager, will need to determine if this was done and if so if patient is compliant, psych to be re-consulted once patient is more stable 5. FEN- regular diet, replace electrolytes PRN 6. DVT/ GI prophylaxis- SCDs, lovenox, pepcid Dispo: hemodynamically stable, ok for transfer to neuro F Full Code Plan discussed and reviewed with Dr. Villa Associated attestation - Marshall Villa MD - 04/23/2019 12:45 PM EST Patient seen and examined independently by me. Above discussed and I agree with ELLIOT note except where indicated in the EMR revision history. Also see my additional comments and changes indicated by discrete font, text color, italics, and/or initials. Labs, cultures, and radiographs where availablewere reviewed. Changes were made in the orders as necessary. I discussed patient concerns with Mary'nicki Wilson.Senait and instructions were given. Respiratory care issues addressed. Please see our orders forthe updated patient care plan. Awake, conversant, on weaning nasal O2 post-extubation. No stridor Chest with clear bilateral BS RRR, without murmur Abd round, soft, NTTP Ext cool, dry, no lesions Awake, deliberate but approp verbal responses OK to floor on current (home) AED doses as ordered; neurology following. * Gloria Zee RD, HUNG - 04/23/2019 10:02 AM EST Nutrition Assessment (Low Risk) Type and Reason for Visit: Initial Nutrition Recommendations: 1. Continue with diet as ordered, pt. Could benefit from CHO controlled/Cardiac diet restriction topromote wt. Loss. 2. Continue to monitor and refer to Signals Officer to monitor. Nutrition Assessment: Patient assessed for nutritional risk. Deemed to be at low risk at this time.Will continue to monitor for changes in status. Pt. extubated, with following General diet. Per chart: status epilepticus - PMHx including depession, HTN, MRSA, seizure disorder, cognitive deficits, with documented poor compliance. Malnutrition Assessment: Malnutrition Status: Insufficient data Nutrition Risk Level ? Risk Level: Low Nutrition Diagnosis: Problem: Overweight/Obese Etiology: (multifactorial) ? Signs and symptoms: BMI Nutrition Intervention: Food and/or Delivery: Continue current diet Nutrition Education/Counseling/Coordination of Care: Continued Inpatient Monitoring Contact Number: pager [phone] * Sharron Hill, 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 - 04/23/2019 8:32 AM EST PROGRESS NOTE. NEUROCRITICAL CARE Patient Name:Mary Claudio Patient : 1985 Acct: [id number] Date of Admission: 04/21/2019 Room/Bed: T3/U63145 PCP: GALI HIDALGO Patient location ICU Remains in the hospital due to persistent unresolved acute issues, Subjective: 33F a PMH of epilepsy (on multiple AED's, non-compliant, multiple hospital admission for status epilepticus due to non-compliance, last seen by us in January 2019), HTN, obesity, depression presented to [facility] ER 04/21 from [facility] with status epilepticus. Dilantin level subtherapeutic. Intubated and sedated. New Complaint: Extubated yesterday. Awake this AM. Insists she has been compliant with her medications. Sedation:No Diet/TF:NPO Law: Yes VTE prophylaxis: YES Lovenox Antithrombotic therapy in first 24 hrs: Contraindicated because not stroke Statin therapy for stroke stroke patients: N/A, not stroke or LDL < 70 Anticoagulation on AF patients: N/A no history of AF Activity: As tolerated Disposition: TBD Current Hospital Medications: Current Facility-Administered Medications: phenytoin (DILANTIN) chewable tablet 100 mg, 100 mg, Per NG tube, TID, Omari Warren MD, 100 mg at 04/22/192028 amLODIPine (NORVASC) tablet 5 mg, 5 mg, Oral, Daily, Ann Marie oJhnson PA-C, 5 mg at 04/22/19 110 LORazepam (ATIVAN) injection 2 mg, 2 mg, Intravenous, Q4H PRN, Ann Marie Johnson PA-C levETIRAcetam (KEPPRA) 100 MG/ML solution 1,000 mg, 1,000 mg, Per G Tube, BID, Omari Harris MD, 1,000 mg at 04/22/19 2030 sodium chloride flush 0.9 % injection 10 mL, 10 mL, Intravenous, 2 times per day, Fahad Tillman DO, 10 mL at 04/22/19 0803 sodium chloride flush 0.9 % injection 10 mL, 10 mL, Intravenous, PRN, Fahad Tillman DO acetaminophen (TYLENOL) tablet 650 mg, 650 mg, Oral, Q6H PRN, Fahad Tillman DO acetaminophen (TYLENOL) suppository 650 mg, 650 mg, Rectal, Q6H PRN, Fahad Tillman DO magnesium hydroxide (MILK OF MAGNESIA) 400 MG/5ML suspension 30 mL, 30 mL, Oral, Daily PRN, Fahad Tillman DO promethazine (PHENERGAN) tablet 12.5 mg, 12.5 mg, Oral, Q6H PRN, Fahad Tillman DO ondansetron (ZOFRAN) injection 4 mg, 4 mg, Intravenous, Q6H PRN, Fahad Tillman DO enoxaparin (LOVENOX) injection 40 mg, 40 mg, Subcutaneous, Daily, Fahad Tillman DO, 40 mg at 04/22/200659 midazolam (VERSED) 100 mg in dextrose 5 % 100 mL infusion, 1 mg/hr, Intravenous, Continuous, Fahad Tillman DO, Stopped at 04/22/19 0945 ampicillin-sulbactam (UNASYN) 1.5 g IVPB minibag, 1.5 g, Intravenous, Q6H, Omari Warren MD, Stopped at 04/23/19 0203 topiramate (TOPAMAX) tablet 100 mg, 100 mg, Per NG tube, BID, Omari Warren MD, 100 mg at04/22/192029 sodium chloride flush 0.9 % injection 10 mL, 10 mL, Intracatheter, Q8H, Omari Warren MD,10 mL at 04/22/19 1300 sodium chloride flush 0.9 % injection 10 mL, 10 mL, Intracatheter, PRN, Omari Warren MD gabapentin (NEURONTIN) capsule 300 mg, 300 mg, Per NG tube, BID, Omari Warren MD, 300 mgat 04/22/192029 Continuous Infusions: midazolam Stopped (04/22/19 0945) Allergies: Fluconazole and Naproxen Review of Systems Constitutional: Positive for fatigue. HENT: Negative for trouble swallowing and voice change. Eyes: Negative for visual disturbance. Respiratory: Negative for cough and shortness of breath. Cardiovascular: Negative for palpitations. Gastrointestinal: Negative for diarrhea and nausea. Genitourinary: Negative for dysuria. Musculoskeletal: Negative for back pain. Skin: Negative for pallor. Neurological: Positive for seizures. Negative for dizziness, tremors, syncope, facial asymmetry, speech difficulty, weakness, light-headedness, numbness and headaches. Psychiatric/Behavioral: Negative for decreased concentration. The patient is not nervous/anxious. Objective: Telemetry: Arrhythmia:No Physical Examination: Patient Vitals for the past 8 hrs: BP Pulse Resp SpO2 Weight 04/23/19 0700 130/86 64 22 98 % 285 lb 11.5 oz (129.6 kg) 04/23/19 0600 (!) 139/93 75 14 98 % 04/23/19 0500 (!) 124/96 76 18 99 % 04/23/19 0400 121/78 70 17 98 % 04/23/19 0300 (!) 131/99 71 18 99 % 04/23/19 0200 116/76 70 18 98 % 02/25/20 0100 (!) 142/96 68 9 98 % I/O last 3 completed shifts: In: 547 [I.V.:14.5; IV Piggyback:532.5] Out: 925 [Urine:925] General Physical Examination: General: well nourished, well developed, obese and calm HEENT:Normocephalic, atraumatic CV: S1+S2, RRR, no MRG. Pulm:CTA b/l, unlabored Abdomen: Soft NT/ND. BS + Skin: Intact without ulcers, breakdowns or discoloration Extremities: normal with no edema or cyanosis Orthopedic limitation; N/A Pulses: Intact peripherally Carotid auscultation :No bruits Neurological Examination: Higher Functions: Mental Status Exam: Level of Alertness:Awake Orientation: A&Ox3 Memory: intact Fund of Knowledge: limited Language: intact Dysarthria not noted Cranial Nerves: -II Visual acuity: abnormal, limited due to patient unable to perform exam -II Visual kiran: normal -III Pupils (~ 3 mm OD, 3 mm OU) equal, round, reactive to light -III-IV- Extraocular Movements: intact -Nystagmus not present -Saccades and pursuits normal -V Facial sensation: intact Corneal's Intact bilateral -VII Facial strength: intact -VIII Hearing: intact -IX-X- Gag reflex present -X Palate:intact -XI Shoulder shrug: intact -XII Tongue movement: normal Motor Examination: Tone after evaluation of 4 limbs, the following findings applied: Normal -Bulk: normal -Muscle Stretchafter evaluation of all limbs, and axial musculature the following findings applied: Drift: absent, moves all extremities symmetrically -Reflexes: after evaluation of 4 limbs, the following findings applied ; Abnormal -Plantar responce: Flexor bilaterally Sensory Intact Coordination: Arms intact Legs intact Tremors not present Gait abnormal, patient unable to walk due to acute circumstances / bedrest / safety concerns ANCILLARY Last 24hrs Recent Results (from the past 24 hour(s)) CBC auto differential Collection Time: 04/23/19 4:54 AM Result Value Ref Range WBC 7.1 3.6 - 10.7 10*3/uL RBC 4.52 3.80 - 5.20 10*6/uL Hemoglobin 11.3 (L) 11.7 - 16.0 g/dL Hematocrit 35.3 35.0 - 47.0 % MCV 78.2 (L) 79.0 - 98.0 fL MCH 25.1 (L) 26.0 - 34.0 pg MCHC 32.1 32.0 - 36.0 % RDW 18.6 (H) 11.5 - 14.5 % Platelets 239 140 - 440 10*3/uL MPV 9.1 7.4 - 10.4 fL Granulocytes % 63.8 40.0 - 80.0 % Lymphocyte % 21.6 20.0 - 40.0 % Monocytes 10.7 (H) 2.0 - 10.0 % Eosinophils 3.3 1.0 - 6.0 % Basophils 0.6 0.0 - 2.0 % Absolute Neut # 4.5 1.8 - 7.0 10*3/uL Absolute Lymph # 1.5 1.0 - 4.3 10*3/uL Absolute [place] # 0.8 0.0 - 0.8 10*3/uL Absolute Eos # 0.2 0.0 - 0.5 10*3/uL Absolute Baso # 0.0 0.0 - 0.2 10*3/uL Magnesium Collection Time: 04/23/19 4:54 AM Result Value Ref Range Magnesium 2.0 1.6 - 2.3 mg/dL Phosphorus Collection Time: 04/23/19 4:54 AM Result Value Ref Range Phosphorus 3.0 2.5 - 4.5 mg/dL Basic Metabolic Panel w/ Reflex to MG Collection Time: 04/23/19 4:54 AM Result Value Ref Range Sodium 138 135 - 145 mmol/L Potassium 3.8 3.5 - 5.1 mmol/L Chloride 108 (H) 98 - 107 mmol/L CO2 24 22 - 30 mmol/L Anion Gap 6 NA Glucose 80 70 - 100 mg/dL BUN 6 (L) 7 - 20 mg/dL CREATININE 0.73 0.52 - 1.25 mg/dL eGFR >60.0 >60 mL/min EGFR IF NonAfrican Peruvian >60.0 >60 mL/min Calcium 8.8 8.4 - 10.4 mg/dL Antiepileptic levels: Recent Labs 04/22/19 0027 PHENYTOIN 4.0* HgA1c: Recent Labs 04/21/[address] Head 04/21/19: Unremarkable noncontrast CT scan of the head. No evidence of acute intracranial process. EEG 04/22/19: Impression: This abnormal EEG is consistent with potential epileptogenicity in the left anterior to mid temporal region occurring in the context of bilateral independent left and right focal cerebral dysfunction in the anterior to mid temporal regions. The background is consistent with severe generalized nonspecific cerebral dysfunction. No clear seizures were recorded. ASSESSMENT / PLAN/RECOMMENDATIONS: Status epilepticus - In setting of epilepsy, known non-compliance with AED's, multiple hospital admissions due to same. Phenytoin level subtherapeutic - Continue Gabapentin 300 BID, Keppra 1000mg BID, Dilantin 100mg TID, Topamax 100mg BID (home doses) - Add Phenobarbital (try 60mg now to see if tolerates, if tolerates will continue load of 120mg TIDfor the next 24 hours). Check Dilantin level and phenobarbital level tomorrow AM to determine maintenance dosing - Maintain seizure precautions Hyponatremia - Improved - Sodium 133-->138 - Keep WNL as hyponatremia can provoke seizures Acute respiratory failure - Due to above, extubated - Abx to cover for aspiration pneumonia Non-compliance/Cognitive deficits - Previously evaluated by psych to assess capacity and was not felt to be candidate for guardianship at that time - Apparently has recently been set up to have case resource manager HTN - Uncontrolled - Per primary Pt OK to transfer to 3W step-down given subtherapeutic AED levels. Patient seen and discussed with Dr. Mills * Linnea Valenzuela RCP - 04/22/2019 11:20 AM EST [facility] Respiratory Care Department Progress Note Spontaneous Breathing Trial (SBT) Start: 2-3 min to Stabilize After 15 min After 30 min HR 85 96 SpO2 (%) 100 99 RR 18 21 VT (L) 323 414 Total RSBI (RR/VT in Liters) 55 50 Pass SBT (RSBI must be?105 to pass) yes NA yes Comments (state reason if SBT failed): Additional data if requested: NIF = VC = Name of physician results were reported to: Thank you for involving Respiratory in the care of this patient, * Ann Marie Johnson PA-C - 04/22/2019 11:01 AM EST CRITICAL CARE DAILY PROGRESS NOTE Admit Date: 04/21/2019 PCP: GALI HIDALGO Subjective Patient admitted 04-22-19 after suffering a witnessed seizure at home followed by a witnessed seizure by EMS en route to the ED. She has a known seizure history and has had multiple admissions for noncompliance with her home AEDs. She was intubated on arrival to [facility] and transferred to [facility] for further management. She remains in the ICU at this time. EVENTS OF LAST 24 HOURS: Patient remains intubated and sedated. She does briefly arouse to voice and noxious stimuli. She follows few simple commands but remains lethargic on sedation. Sedation will be weaned this morning with possible SBT. INVASIVE LINES: CVC R IJ D# 1 MV: D# 1 MV SETTINGS: Vent Mode: AC/VC+ Rate Set: 14 bmp Vt Ordered: 440 mL Pressure Support: 0 cmH20 PEEP/CPAP: 8 FiO2 : 40 % IV: midazolam Stopped (04/22/19 0945) MEDICATIONS Scheduled Meds: phenytoin 100 mg Per NG tube TID amLODIPine 5 mg Oral Daily sodium chloride flush 10 mL Intravenous 2 times per day enoxaparin 40 mg Subcutaneous Daily chlorhexidine 15 mL Mouth/Throat BID famotidine (PEPCID) injection 20 mg Intravenous BID ampicillin-sulbactam 1.5 g Intravenous Q6H levetiracetam 1,000 mg Intravenous Q12H topiramate 100 mg Per NG tube BID sodium chloride flush 10 mL Intracatheter Q8H gabapentin 300 mg Per NG tube BID PRN meds: LORazepam, sodium chloride flush, acetaminophen, acetaminophen, magnesium hydroxide, promethazine, ondansetron, sodium chloride flush Objective PHYSICALEXAM: VITALS: BP (!) 140/103 Pulse 89 Temp 99.5 F (37.5 C) (Temporal) Resp 15 Ht 5' 8 (1.727 m) Wt 285lb 11.5 oz (129.6 kg) SpO2 99% BMI 43.44 kg/m 24HRINTAKE/OUTPUT: Intake/Output Summary (Last 24 hours) at 04/22/2019 1101 Last data filed at 04/22/2019 1048 Gross per 24 hour Intake 775.5 ml Output 3110 ml Net -2334.5 ml CURRENT PULSE OXIMETRY: SpO2: 99 % 24HR PULSE OXIMETRY RANGE: SpO2 Av.7 % Min: 99 % Max: 100 % Physical Exam Vitals signs reviewed. Constitutional: Comments: Lying in bed, on vent/ sedation, briefly arouses to voice/ noxious stimuli HENT: Head: Normocephalic and atraumatic. Nose: Nose normal. Mouth/Throat: Pharynx: Oropharynx is clear. No posterior oropharyngeal erythema. Eyes: General: No scleral icterus. Right eye: No discharge. Left eye: No discharge. Conjunctiva/sclera: Conjunctivae normal. Pupils: Pupils are equal, round, and reactive to light. Cardiovascular: Rate and Rhythm: Normal rate. Heart sounds: No friction rub. No gallop. Comments: No peripheral edema, DP pulses difficult to palpate Pulmonary: Breath sounds: No wheezing, rhonchi or rales. Comments: No accessory muscle use, unlabored on vent Abdominal: General: Bowel sounds are normal. There is no distension. Palpations: Abdomen is soft. There is no mass. Tenderness: There is no abdominal tenderness. Comments: No obvious palpable hernias or HSM Musculoskeletal: Comments: No cyanosis, no clubbing, cap refill 2-3 seconds bilateral UE Skin: General: Skin is warm and dry. Findings: No erythema or rash. Comments: No induration Psychiatric: Comments: Briefly arouses, follows few simple commands LABS: CBC: Recent Labs 04/21/19203904/22/19 0027 WBC 12.6* 10.9* HGB 11.7 11.7 HCT 36.3 36.3 MCV 78.0* 78.3* PLT 247 245 BMP: Recent Labs 04/21/19203904/22/19 0027 NA 133* 137 K 3.7 3.9 CL 102 106 CO2 24 24 PHOS 3.6 3.6 BUN 6* 5* CREATININE 0.59 0.56 MG 1.8 1.9 LACTATE Recent Labs 04/21/192039 LACTA 0.6* LIVER PROFILE: Recent Labs 04/21/192039 AST 26 ALT 27 BILITOT 0.2 ALKPHOS 113 UA: Recent Labs 04/21/192043 COLORU Light-Yellow LEUKOCYTESUR Negative UROBILINOGEN Normal BILIRUBINUR Negative GLUCOSEU Normal KETUA Negative RADIOLOGY: CXR Portable: Results for orders placed during the hospital encounter of 04/21/19 XR CHEST PORTABLE Narrative Patient Name: MARY CLAUDIO ---Diagnostic Radiology--- Exam Date/Time 04/21/2019 19:39:52 EST Exam CR Chest Portable Ordering Physician MD JOSE L MARIBELL Accession Number [id number] CPT4 Codes 77781 () Reason For Exam Line placement Report SINGLE FRONTAL VIEW OF THE CHEST CLINICAL INDICATION: Line placement TECHNIQUE: Single frontal view of the chest COMPARISON: Earlier today FINDINGS: NG tube tip is in the gastric fundus. Right jugular catheter tip is in the SVC. Endotracheal tube tip 3 cm above the sidney. Minor atelectasis at the lung bases. Lung volumes are low. Heart size normal. No pneumothorax seen. IMPRESSION: 1. Minor atelectasis at the lung bases. Tubes/lines as described. Report Dictated on --- Final --- Dictated: 04/21/2019 7:44 pm Dictating Physician: MD ZIMMERMAN JOHN R Signed Date and Time: 04/21/2019 7:47 pm Signed by: MD ZIMMERMAN JOHN R Transcribed Date and Time: 04/21/2019 7:44 REFERRING PHYSICIAN: Haroon Jones M.D. TEST #: Test - Routine Inpatient 20-Minute EEG: Room #: T314. Indication: This EEG is being requested to diagnose seizures. Findings: Posterior dominant rhythm was absent. Background was described under EEG diagnosis. Sleep was present and abnormal suggestive of sedated sleep. Drowsiness was absent. Photic stimulation was performed with no clear driving response observed. Hyperventilation was deferred. Diagnoses: 1. Frequent sharp waves and spikes in the left anterior to mid temporal region. 2. Frequent irregular delta activity occurring independently in the bilateral left and right anterior to mid temporal regions. 3. Continuous generalized low-voltage irregular delta activity intermixed with generalized fast frequency suggestive of sedation. 4. Absent posterior dominant rhythm. Impression: This abnormal EEG is consistent with potential epileptogenicity in the left anterior to mid temporal region occurring in the context of bilateral independent left and right focal cerebral dysfunction in the anterior to mid temporal regions. The background is consistent with severe generalized nonspecific cerebral dysfunction. No clear seizures were recorded. ASSESSMENT AND PLAN: Patient Active Problem List: Abnormal MRI Seizure (HCC) Altered mental status Epilepsy (HCC) History of pneumonia Respiratory failure requiring intubation (HCC) Microcytosis Status epilepticus (HCC) Noncompliance with medication regimen Depression Acute respiratory failure with hypercapnia (HCC) Aspiration pneumonia (HCC) Acute bronchospasm Severe sepsis (HCC) Seizure disorder (HCC) Staphylococcus hominis sepsis (HCC) Leukocytosis Pneumonia of right lower lobe due to methicillin susceptible Staphylococcus aureus (MSSA) (HCC) Cognitive deficits Obesity 1. Acute respiratory failure likely 2/2 seizure activity- unable to protect airway/ concern for aspiration- remains intubated/ sedated, wean sedation in order to undergo SBT, CXR with no infiltrates consistent with PNA- consider discontinuing empiric Abx 2. Status epilepticus with Seizure disorder- per chart Pt has multiple admissions due to treatment non-compliance, home meds include gabapentin/ keppra/ dilantin/ topamax, all home meds restarted in order to wean versed gtt for possible extubation, neuro consult pending, EEG results as above 3. HTN- BP 145/104, restarted home norvasc- goal SBP < 140, monitor 4. Intellectual disability/ cognitive deficits/ depression- psych has seen in the past and immigration case manager from [place] was planned to follow up with patient in 2019 to set up behavioral health case resource manager, will need to determine if this was done and if so if patient is compliant, psych to be re-consulted once patient is more stable 5. FEN- NPO for now, replace electrolytes PRN 6. DVT/ GI prophylaxis- SCDs, lovenox, pepcid Full Code Plan discussed and reviewed with Dr. Villa Associated attestation - Marshall Villa MD - 04/22/2019 7:37 PM EST Patient seen and examined independently by me. Above discussed and I agree with PA-C note except where indicated in the EMR revision history. Also see my additional comments and changes indicated by discrete font, text color, italics, and/or initials. Labs, cultures, and radiographs where availablewere reviewed. Changes were made in the orders as necessary. I discussed patient concerns with Mary's R.N. and instructions were given. Respiratory care issues addressed. Please see our orders forthe updated patient care plan. Can now awaken to nod and follow with all 4's Placed on SBT. * Kalyn Walsh RN - 04/22/2019 9:45 AM EST Versed gtt turned off for SBT trial * Maribell Domingo MD - 04/21/2019 11:26 PM EST I have personally performed a [id number] diagnostic evaluation on this patient on date of service04/21/19. History, labs, imaging studies, and electronic medical record have been reviewed by me. This note documented by the [x]manager of warehouse []SHEYLA reflects my history, exam, and medical decision making. I have reviewed and agree with the care plan. Changes were made in the orders as necessary. ROSdocumentation was reviewed and negative unless otherwise stated in HPI. Additional pertinent interval history, ROS, and physical exam findings: - awakens to tactile stimuli on my exam but does not follow commands - withdraws appropriately to noxious stimuli Assessment: - status epilepticus with hx poorly controlled seizure disorder - medication non-compliance - acute encephalopathy due to seizures + post-ictal state - acute hypoxic respiratory failure in setting of encephalopathy - HTN - elevated troponin likely due to demand ischemia - morbid obesity - depression Plan: - continue versed gtt for sedation - appreciate neuro recs re: AEDs: keppra and dilantin loading doses ordered, continue topamax and gabapentin via OGT - formal neuro consult in AM - low dilantin level c/w non-compliance with home seizure meds. Hx of same in past. Per report, pt has some cognitive deficits at baseline which may be contributing to her medication non-compliance - wean sedation for SBT in AM (as long as no sz activity overnight) - if seizures overnight call for emergent 24h EEG, otherwise f/u EEG tmrw - empiric Unasyn given found down at home, leukocytosis, and multiple seizures before airway established concerning for high risk of aspiration - check CTH (no documentation received from OSH ED that it had been done there) - check EKG and trend troponin, suspect elevated troponin due to demand ischemia Total critical care time for this patient with life-threatening unstable organ failure, including direct patient contact, management of life support systems, review of data including imaging and labs, and discussions with other team members and physicians at least 35 min so far today, excluding procedures. documented in this encounter Assessments Diagnosis Status epilepticus (HCC)- Primary Epileptic grand mal status Cognitive deficits Unspecified persistent mental disorders due to conditions classified elsewhere Noncompliance with medication regimen Personal history of noncompliance with medical treatment, presenting hazards to health Obesity Obesity, unspecified Diagnosis Status epilepticus (HCC)- Primary Epileptic grand mal status Seizure (HCC) Other convulsions Obesity, Class III, BMI 40-49.9 (morbid obesity) (HCC) Morbid obesity Hypertension Unspecified essential hypertension Constipation Unspecified constipation Discharge Instructions * Discharge Instr - Lab* Lindy Johnson, RN - 04/29/2019 3:31 PM EST Your physician has ordered skilled home care services for you. Your home care will be provided by: [facility] [phone] * Additional Instructions* Richard Huerta MD - 04/30/2019 Take all medications as directed. Missing doses can increase you risk of seizures. Seizure: Care Instructions Your Care Instructions Seizures are caused by abnormal patterns of electrical signals in the brain. They are different foreach person. Seizures can affect movement, speech, vision, or awareness. Some people have only slight shaking ofa hand and do not pass out. Other people may pass out and have violent shaking of the whole body. Some people appear to stare into space. They are awake, but they can't respond normally. Later, they may not remember what happened. You may need tests to identify the type and cause of the seizures. A seizure may occur only once, or you may have them more than one time. Taking medicines as directed and following up with your doctor may help keep you from having more seizures. The doctor has checked you carefully, but problems can develop later. If you notice any problems ornew symptoms, get medical treatment right away. Follow-up care is a jain part of your treatment and safety. Be sure to make and go to all appointments, and call your doctor if you are having problems. It's also a good idea to know your test resultsand keep a list of the medicines you take. How can you care for yourself at home? Be safe with medicines. Take your medicines exactly as prescribed. Call your doctor if you think you are having a problem with your medicine. Do not do any activity that could be dangerous to you or others until your doctor says it is safe to do so. For example, do not drive a car, operate machinery, swim, or climb ladders. Be sure that anyone treating you for any health problem knows that you have had a seizure and what medicines you are taking for it. Identify and avoid things that may make you more likely to have a seizure. These may include lack of sleep, alcohol or drug use, stress, or not eating. Make sure you go to your follow-up appointment. When should you call for help? Call 911 anytime you think you may need emergency care. For example, call if: You have another seizure. You have more than one seizure in 24 hours. You have new symptoms, such as trouble walking, speaking, or thinking clearly. Call your doctor now or seek immediate medical care if: You are not acting normally. Watch closely for changes in your health, and be sure to contact your doctor if you have any problems. Where can you learn more? Go to [email or web address] and sign in to your [employer] account. Enter M769 in the Search Health Information box to learn more about Seizure: Care Instructions. If you do not have an account, please click on the Sign Up Now link. Current as of: May 24, 2018 Content Version: 12.3 8331-5467 [employer]. Care instructions adapted under license by [employer]. If youhave questions about a medical condition or this instruction, always ask your healthcare professional. [employer] disclaims any warranty or liability for your use of this information. * Attachments The following attachments cannot be sent through Care Everywhere. * Epilepsy (Swedish) * Seizure (Swedish) documented in this encounter Health Concerns Infection Onset Date Last Indicated Resolved Time COVID-19 Rule-Out 11/29/2020 11/29/2020 11/30/2020 2:12 AM EDT COVID-19 Rule-Out 03/09/2021 03/09/2021 03/10/2021 3:40 AM EST COVID-19 Confirmed 03/09/2021 03/09/2021 2 8:53 PM EST Infection Onset Date Last Indicated Resolved Time COVID-19 Rule-Out 03/09/2021 03/09/2021 03/10/2021 3:40 AM EST COVID-19 Confirmed 03/09/2021 03/09/2021 2 8:53 PM EST Chief Complaint and Reason for Visit Chief Complaint htn Chief Complaint htn seizure Chief Complaint htn seizure LT EYE BLURRINESS Chief Complaint htn seizure LT EYE BLURRINESS seizure SEIZURE Chief Complaint htn seizure LT EYE BLURRINESS seizure SEIZURE seizures Chief Complaint htn seizure LT EYE BLURRINESS seizure SEIZURE seizures fall Chief Complaint htn seizure LT EYE BLURRINESS seizure SEIZURE seizures fall seizure Chief Complaint htn seizure LT EYE BLURRINESS seizure SEIZURE seizures fall seizure SEIZURE Chief Complaint htn seizure LT EYE BLURRINESS seizure SEIZURE seizures fall seizure SEIZURE seizure Chief Complaint seizure seizure Chief Complaint seizure seizure ANEMIA, GIB Reason for Visit Acute GI bleeding Anemia History of cognitive deficit Hx of seizure disorder Chief Complaint seizure seizure ANEMIA, GIB ANEMIA, GIB ANEMIA, GIB ANEMIA, GIB ANEMIA, GIB ANEMIA, GIB ANEMIA, GIB ANEMIA, GIB ANEMIA, GIB ANEMIA, GIB ANEMIA, GIB ANEMIA, GIB ANEMIA, GIB ANEMIA, GIB ANEMIA, GIB ANEMIA, GIB Reason for Visit Acute GI bleeding Anemia Dehydration Gastritis History of cognitive deficit Hx of seizure disorder Nausea and vomiting Pancytopenia Transaminitis Chief Complaint seizure ANEMIA, GIB ANEMIA, GIB ANEMIA, GIB ANEMIA, GIB ANEMIA, GIB ANEMIA, GIB ANEMIA, GIB ANEMIA, GIB ANEMIA, GIB ANEMIA, GIB ANEMIA, GIB ANEMIA, GIB ANEMIA, GIB ANEMIA, GIB ANEMIA, GIB ANEMIA, GIB fall Reason for Visit Acute GI bleeding Anemia Gastritis History of cognitive deficit Hx of seizure disorder Nausea and vomiting Pancytopenia Dehydration Transaminitis Chief Complaint seizure ANEMIA, GIB ANEMIA, GIB ANEMIA, GIB ANEMIA, GIB ANEMIA, GIB ANEMIA, GIB ANEMIA, GIB ANEMIA, GIB ANEMIA, GIB ANEMIA, GIB ANEMIA, GIB ANEMIA, GIB ANEMIA, GIB ANEMIA, GIB ANEMIA, GIB ANEMIA, GIB LABWORK fall DIZZINESS Reason for Visit Acute GI bleeding Anemia Gastritis History of cognitive deficit Hx of seizure disorder Nausea and vomiting Pancytopenia Dehydration Transaminitis Chief Complaint seizure ANEMIA, GIB ANEMIA, GIB ANEMIA, GIB ANEMIA, GIB ANEMIA, GIB ANEMIA, GIB ANEMIA, GIB ANEMIA, GIB ANEMIA, GIB ANEMIA, GIB ANEMIA, GIB ANEMIA, GIB ANEMIA, GIB ANEMIA, GIB ANEMIA, GIB ANEMIA, GIB LABWORK JAIL LAB WORK JAIL LAB WORK fall DIZZINESS Reason for Visit Acute GI bleeding Anemia Gastritis History of cognitive deficit Hx of seizure disorder Nausea and vomiting Pancytopenia Dehydration Transaminitis Chief Complaint seizure ANEMIA, GIB ANEMIA, GIB ANEMIA, GIB ANEMIA, GIB ANEMIA, GIB ANEMIA, GIB ANEMIA, GIB ANEMIA, GIB ANEMIA, GIB ANEMIA, GIB ANEMIA, GIB ANEMIA, GIB ANEMIA, GIB ANEMIA, GIB ANEMIA, GIB ANEMIA, GIB JAIL LABWORK LABWORK JAIL LAB WORK JAIL LABWORK JAIL LAB WORK fall DIZZINESS ACUTE HYPOKALEMIA ACUTE HYPOKALEMIA ACUTE HYPOKALEMIA Reason for Visit Acute GI bleeding Anemia Gastritis History of cognitive deficit Hx of seizure disorder Nausea and vomiting Pancytopenia Dehydration Transaminitis Generalized weakness Hypokalemia Numbness and tingling Paresthesias UTI (urinary tract infection) Chief Complaint seizure ANEMIA, GIB ANEMIA, GIB ANEMIA, GIB ANEMIA, GIB ANEMIA, GIB ANEMIA, GIB ANEMIA, GIB ANEMIA, GIB ANEMIA, GIB ANEMIA, GIB ANEMIA, GIB ANEMIA, GIB ANEMIA, GIB ANEMIA, GIB ANEMIA, GIB ANEMIA, GIB JAIL LABWORK LABWORK JAIL LAB WORK JAIL LABWORK JAIL LAB WORK fall DIZZINESS ACUTE HYPOKALEMIA ACUTE HYPOKALEMIA ACUTE HYPOKALEMIA ACUTE HYPOKALEMIA GENERAL ILLNESS Reason for Visit Acute GI bleeding Anemia Gastritis History of cognitive deficit Hx of seizure disorder Nausea and vomiting Pancytopenia Dehydration Transaminitis Generalized weakness Numbness and tingling Chief Complaint seizure ANEMIA, GIB ANEMIA, GIB ANEMIA, GIB ANEMIA, GIB ANEMIA, GIB ANEMIA, GIB ANEMIA, GIB ANEMIA, GIB ANEMIA, GIB ANEMIA, GIB ANEMIA, GIB ANEMIA, GIB ANEMIA, GIB ANEMIA, GIB ANEMIA, GIB ANEMIA, GIB JAIL LABWORK LABWORK JAIL LAB WORK JAIL LABWORK JAIL LAB WORK fall DIZZINESS ACUTE HYPOKALEMIA ACUTE HYPOKALEMIA ACUTE HYPOKALEMIA ACUTE HYPOKALEMIA GENERAL ILLNESS weakness Reason for Visit Acute GI bleeding Anemia Gastritis History of cognitive deficit Hx of seizure disorder Nausea and vomiting Pancytopenia Dehydration Transaminitis Generalized weakness Numbness and tingling Chief Complaint seizure ANEMIA, GIB ANEMIA, GIB ANEMIA, GIB ANEMIA, GIB ANEMIA, GIB ANEMIA, GIB ANEMIA, GIB ANEMIA, GIB ANEMIA, GIB ANEMIA, GIB ANEMIA, GIB ANEMIA, GIB ANEMIA, GIB ANEMIA, GIB ANEMIA, GIB ANEMIA, GIB JAIL LABWORK LABWORK JAIL LAB WORK JAIL LABWORK JAIL LAB WORK fall DIZZINESS ACUTE HYPOKALEMIA ACUTE HYPOKALEMIA ACUTE HYPOKALEMIA ACUTE HYPOKALEMIA GENERAL ILLNESS weakness FAIALURE TO THRIVE weakness Reason for Visit Acute GI bleeding Anemia Gastritis History of cognitive deficit Hx of seizure disorder Nausea and vomiting Pancytopenia Dehydration Transaminitis Generalized weakness Numbness and tingling Adult failure to thrive Cognitive dysfunction Hypokalemia Psychiatric illness Chief Complaint Admit Date JAIL LAB WORK February 15 4:00am LABWORK May 20, 2024 5:0 0am Reason for Referral Specialty Diagnoses / Procedures Referred By Contac t Referred To Contact Neurology Diagnoses Breakthrough seizure (HCC) Procedures CONSULT TO NEUROLOGY OFFICE/OUTPATIENT NEW HIGH MDM 60-74 MINUTES Maribell Bernard APRN.MUSIC PROMOTER [address] [place] [address] Referral ID Status Reason Start Date Expiration Date Visits Requested Visits Authorized [id number] Authorized PCP Requested Referral 10/04/2021 10/04/2022 1 1 Specialty Diagnoses / Procedures Referred By Contac t Referred To Contact Diagnoses Status epilepticus Troponin level elevated Procedures ECHOCARDIOGRAM IL ECHO HEART XTHORACIC,COMPLETE W DOPPLER Matthew Lima MD [address] [place] [address] Referral ID Status Reason Start Date Expiration Date V isits Requested Visits Authorized [id number] Auth Not Needed 04/06/2023 04/30/2024 1 1 Specialty Diagnoses / Procedures Referred By Contac t Referred To Contact Neurology Diagnoses Status epilepticus Matthew Lima MD [address] [place] [address] Referral ID Status Reason Start Date Expiration Date V isits Requested Visits Authorized [id number] New Request 04/06/2023 04/30/2024 1 1 Specialty Diagnoses / Procedures Referred By Contac t Referred To Contact Neurology Diagnoses Status epilepticus Linnea Rocha, COLOR PASTE MIXING SUPERVISOR-MUSIC PROMOTER [address] [place] [address] Referral ID Status Reason Start Date Expiration Date V isits Requested Visits Authorized [id number] New Request 04/03/2023 04/27/2024 1 1 Specialty Diagnoses / Procedures Referred By Contac t Referred To Contact [address] [place] [address] Referral ID Status Reason Start Date Expiration Date Visits Re quested Visits Authorized Specialty Diagnoses / Procedures Referred By Contac t Referred To Contact Procedures NO PHARMACOLOGICAL DVT PROPHYLAXIS Zhang, Richard N, COLOR PASTE MIXING SUPERVISOR-MUSIC PROMOTER [address] [place] [id number] Referral ID Status Reason Start Date Expiration Date V isits Requested Visits Authorized [id number] New Request 03/30/2023 04/23/2024 1 1 Specialty Diagnoses / Procedures Referred By Contac t Referred To Contact Procedures DVT/VTE RISK ASSESSMENT Richard Zhang, COLOR PASTE MIXING SUPERVISOR-MUSIC PROMOTER [address] [place] [phone] Referral ID Status Reason Start Date Expiration Date V isits Requested Visits Authorized [id number] New Request 03/30/2023 04/23/2024 1 1 Specialty Diagnoses / Procedures Referred By Contac t Referred To Contact Procedures ECG Richard Zhang, COLOR PASTE MIXING SUPERVISOR-MUSIC PROMOTER [address] [place] [phone] Referral ID Status Reason Start Date Expiration Date V isits Requested Visits Authorized [id number] New Request 03/30/2023 04/23/2024 1 1 Additional Source Comments INFORMATION SOURCE (unrecogn ized section and content) DATE CREATED AUTHOR 08/17/2017 [facility] DATE CREATED AUTHOR AUTHOR'S ORGANIZ ATION 08/29/2021 [facility] DATE CREATED AUTHOR AUTHOR'S ORGANIZ ATION 09/03/2021 [facility] DATE CREATED AUTHOR AUTHOR'S ORGANIZ ATION 05/05/2022 [facility] DATE CREATED AUTHOR AUTHOR'S ORGANIZ ATION 05/24/2023 [facility] DATE CREATED AUTHOR AUTHOR'S ORGANIZ ATION 12/25/2023 [facility] DATE CREATED AUTHOR AUTHOR'S ORGANIZ ATION 06/07/2024 [facility] DATE CREATED AUTHOR AUTHOR'S ORGANIZ ATION 07/09/2024 [facility] Reason for Visit (unrecogniz ed section and content) Reason Comments Reason Comments Discharge from [facility] next week Reason Comments Covid Test Result Reason Comments Seizures [place] [facility] [place] [facility]. Pt is responsive but not speaking. 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 Hx seizures. Pt also complaining of left leg pain denies any injuries. Specialty Diagnoses / Procedures Referred By Artur tobin Referred To Contact Diagnoses status epilepticus Chery Schmitz MD [address] [place] [phone] [facility] [address] [place] [phone] Referral ID Status Reason Start Date Expiration Date Visits Re quested Visits Authorized [id number] 1 1 Source Comments (unrecognize d section and content) In the event this informatio n is protected by the Federal Confidentiality of Alcohol and Drug Abuse Patient Records regulations: The Federal rules restrict any use of the information to criminally investigate or prosecute any alcohol or drug abuse patient.[facility] the event this information is protected by the Federal Confidentiality of Alcohol and Drug Abuse Patient Records regulations: The Federal rules restrict any use of the information to criminally investigate or prosecute any alcohol or drug abuse patient.[facility] the event this information is protected by the Federal Confidentiality of Alcohol and Drug Abuse Patient Records regulations: The Federal rules restrict any use of the information to criminally investigate or prosecute any alcohol or drug abuse patient.[facility] the event this information is protected by the Federal Confidentiality of Alcohol and Drug Abuse Patient Records regulations: The Federal rules restrict any use of the information to criminally investigate or prosecute any alcohol or drug abuse patient.[facility] the event this information is protected by the Federal Confidentiality of Alcohol and Drug Abuse Patient Records regulations: The Federal rules restrict any use of the information to criminally investigate or prosecute any alcohol or drug abuse patient.[facility] the event this information is protected by the Federal Confidentiality of Alcohol and Drug Abuse Patient Records regulations: The Federal rules restrict any use of the information to criminally investigate or prosecute any alcohol or drug abuse patient.[facility] the event this information is protected by the Federal Confidentiality of Alcohol and Drug Abuse Patient Records regulations: The Federal rules restrict any use of the information to criminally investigate or prosecute any alcohol or drug abuse patient.[facility] the event this information is protected by the Federal Confidentiality of Alcohol and Drug Abuse Patient Records regulations: The Federal rules restrict any use of the information to criminally investigate or prosecute any alcohol or drug abuse patient.[facility] Care Teams (unrecognized sec tion and content) 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 [place] [address] PCP - General Family Medicine 06/24/19 Aneesh Ludwig MD Consulting Neurology 06/05/19 Team Status: Active Member Role Status Dates Dr. Gali Hidalgo DO Family Provider Active Dr. Himanshu Sanchez MD Primary Care Provider Acti ve Team Status: Active Member Role Status Dates Dr. Himanshu Sanchez MD Primary Care Provider Acti ve Dr. Padilla Huerta MD Emergency Provider Active Dr. Awa Massey DO Admit Provider, Att ending Provider, Other Provider Active Team Status: Active Member Role Status Dates Dr. Himansuh Sanchez MD Primary Care Provider Acti ve Dr. Padilla Huerta MD Emergency Provider Active Dr. Awa Massey DO Admit Provider, Other Provider Ac tive Dr. Franky Hatch MD Attending Provider, Other Provider Active Team Status: Active Member Role Status Dates Dr. Himanshu Sanchez MD Primary Care Provider Acti ve Dr. Padilla Huerta MD Emergency Provider Active Dr. Awa Massey DO Admit Provider, Other Provider Ac tive Dr. Franky Hatch MD Other Provider Active Dr. Kaushal Carter DO Attending Provider Active Team Status: Active Member Role Status Dates Dr. Himanshu Sanchez MD Primary Care Provider Acti ve Dr. Kaushal Carter DO Attending Provider Active Team Status: Active Member Role Status Dates Dr. Himanshu Sanchez MD Primary Care Provider Acti ve Dr. Padilla Huerta MD Emergency Provider Active Dr. Awa Massey DO Admit Provider, Other Provider Ac tive Dr. Zara Benson MD Attending Provider, Other Provid er Active Dr. Franky Hatch MD Other Provider Active Team Status: Active Member Role Status Dates Dr. Himanshu Sanchez MD Primary Care Provider Acti ve Dr. Padilla Huerta MD Emergency Provider Active Dr. Awa Massey DO Admit Provider, Other Provider Ac tive Dr. Zara Benson MD Other Provider Active Dr. Franky Hatch MD Other Provider Active Dr. Kaushal Carter DO Attending Provider Active Team Status: Inactive Member Role Status Dates Dr. Himanshu Sanchez MD Primary Care Provider Acti ve Dr. Joo King MD Attending Provider, Emergency Provider Active Team Status: Inactive Member Role Status Dates Dr. Himanshu Sanchez MD Primary Care Provider Acti ve Dr. Padilla Huerta MD Emergency Provider Active Dr. Awa Massey DO Admit Provider, Other Provider Ac tive Dr. Zara Benson MD Attending Provider Active Dr. Franky Hatch MD Other Provider Active Team Status: Active Member Role Status Dates Dr. Himanshu Sanchez MD Primary Care Provider Acti ve Dr. Mandy Badillo MD Attending Provider Active Team Status: Inactive Member Role Status Dates Dr. Himanshu Sanchez MD Primary Care Provider Acti ve Dr. Jose Moreira MD Emergency Provider Active Team Status: Inactive Member Role Status Dates Dr. Himanshu Sanchez MD Primary Care Provider Acti ve Dr. Kiel Galvez DO Emergency Provider Active Team Status: Inactive Member Role Status Dates Dr. Himanshu Sanchez MD Primary Care Provider Acti ve Dr. Mandy Badillo MD Attending Provider, Referring Pr ovider Active Team Status: Active Member Role Status Dates Dr. Himanshu Sanchez MD Primary Care Provider Acti ve Dr. Mandy Badillo MD Attending Provider, Referring Pr ovider Active Team Status: Active Member Role Status Dates Dr. Himanshu Sanchez MD Primary Care Provider Acti ve Dr. Padilla Huerta MD Emergency Provider Active Dr. Awa Massey DO Admit Provider, Other Provider Ac tive Dr. Franky Hatch MD Other Provider Active Dr. Kaushal Carter DO Attending Provider Active Dr. Zara Benson MD Referring Provider Active Team Status: Active Member Role Status Dates Dr. Himanshu Sanchez MD Primary Care Provider Acti ve Dr. Patricia Shannon MD Emergency Provider Active Dr. Steven Mullen MD Admit Provider, Attending Provider, Other Provider Active Team Status: Active Member Role Status Dates Dr. Himanshu Sanchez MD Primary Care Provider Acti ve Dr. Patricia Shannon MD Emergency Provider Active Dr. Steven Mullen MD Admit Provider, Other Provide r Active Dr. Awa Massey DO Attending Provider, Other Provide r Active Team Status: Inactive Member Role Status Dates Dr. Himanshu Sanchez MD Primary Care Provider Acti ve Dr. Mandy Badillo MD Attending Provider Active Team Status: Active Member Role Status Dates Dr. Himanshu Sanchez MD Primary Care Provider Acti ve Dr. Patricia Shannon MD Emergency Provider Active Dr. Steven Mullen MD Admit Provider, Other Provide r Active Dr. Awa Massey DO Attending Provider Active Team Status: Inactive Member Role Status Dates Dr. Himanshu Sanchez MD Primary Care Provider Acti ve Dr. Jose Moreira MD Attending Provider, Emergency Provider Active Team Status: Inactive Member Role Status Dates Dr. Himanshu Sanchez MD Primary Care Provider Acti ve Dr. Patricia Shannon MD Emergency Provider Active Dr. Steven Mullen MD Admit Provider, Other Provide r Active Dr. Gali Coates DO Attending Provider Active Dr. Awa Massey DO Other Provider Active Team Status: Active Member Role Status Dates Dr. Himanshu Sanchez MD Primary Care Provider Acti ve Dr. Patricia Shannon MD Emergency Provider Active Dr. Steven Mullen MD Admit Provider, Other Provide r Active Dr. Gali Coates , Attending Provider, Other Pro vider Active Dr. Awa Massey , Other Provider Active Team Status: Inactive Member Role Status Dates Dr. Himanshu Sanchez MD Primary Care Provider Acti ve Dr. Jose Brown DO Emergency Provider Active Team Status: Active Member Role Status Dates Dr. Himanshu Sanchez MD Primary Care Provider Acti ve Dr. Padilla Huerta MD Emergency Provider Active Dr. Awa Massey DO Admit Provider, Other Provider Ac tive Dr. Zara Benson MD Referring Provider, Other Provid er Active Dr. Franky Hatch MD Other Provider Active Dr. Kaushal Carter , Attending Provider Active Team Status: Inactive Member Role Status Dates Dr. Himanshu Sanchez MD Primary Care Provider Acti ve Dr. Kiel Galvez , Attending Provider, Emergency P letty Active Team Status: Active Member Role Status Dates Dr. Himanshu Sanchez MD Primary Care Provider Acti ve Dr. Padilla Huerta MD Emergency Provider Active Dr. Awa Massey DO Attending Provider Active Team Status: Active Member Role Status Dates Dr. Himanshu Sanchez MD Primary Care Provider Acti ve Dr. Padilla Huerta MD Emergency Provider Active Dr. 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 [place] [address] PCP - General Family Medicine 06/24/19 Aneesh Ludwig MD Consulting Neurology 06/05/19 Dump Motor Operator Relationship Specialty Start Date End Date Physician, No Pcp PCP - General 05/03/22 Dump Motor Operator Relationship Specialty Start Date End Date Nila Soriano MD [address] [place] [id number] PCP - General Family Medicine 04/03/23 Team Status: Active Member Role Status Dates Dr. Gali Hidalgo DO Family Provider Active Dr. Himanshu MUNOZ MD Primary Care Provider A ctive Team Status: Inactive Member Role Status Dates Dr. Himanshu MUNOZ MD Primary Care Provider Active Start: February 152023 End: February 16, 2024 Audie MUNOZ MD Attending Provider Active Start: February 16, 2024 End: February 16, 2024 Audie MUNOZ MD Referring Provider Active Start: February 16, 2024 End: February 16, 2024 Team Status: Inactive Member Role Status Dates Dr. Himanshu MUNOZ MD Primary Care Provider A ctive Start: May 20, 2024 End: May 20, 2024 Audie MUNOZ MD Attending Provider Active Start: May 20, 2024 End: May 20, 2024 Goals (unrecognized section and content) Goals may be documented in a n alternate sectionGoals may be documented in an alternate sectionGoals may be documented in an alternate sectionGoals may be documented in an alternate sectionGoals may be documented in an alternate sectionGoals may be documented in an alternate sectionGoals may be documented in an alternate sectionGoals may be documented in an alternate sectionGoals may be documented in an alternate sectionGoals may be documented in an alternate sectionGoals may be documented in an alternate sectionGoals may be documented in an alternate section Scheduled Active and Recently Administ ered Medications (unrecognized section and content) Medication Order 08/27/2021 08/28/2021 08/29/2021 ammonia inhaler 0.3 mL (COMPLETED) 0.3 mL, Inhalation, ONCE, 1 dose, On 08/29/21 at 1730 1736 (Given - Provid er: Margarita Vance) levETIRAcetam (KEPPRA) tablet 1,000 mg (COMPLETED) 1,000 mg, Oral, ONCE, 1 dose, On Mon08/29/21 at 2015, Do not crush or chew. 2121 (Given - Provid er: Kenyetta Farr RN) No Frequency Medication Order 08/27/2021 08/28/2021 08/29/2021 ammonia inhaler 1 dose, Starting on Mon08/29/21 at 1734, Until Mon08/30/21 at 0544, Mragarita Vance: cabinet override, Margarita Vance: cabinet override 1745 (Due) Scheduled Medication Order 05/02/2022 05/03/2022 05/04/2022 cefTRIAXone (ROCEPHIN) IV syringe 1 g (COMPLETED) 1 g, intravenous, Administer over 3 Minutes, Once, On Mon05/04/22 at 0000, For 1 dose, Do not administer simultaneously with any calcium containing solutions via a Y-site in any patient., Indication: Urinary Tract/Genitourinary 2351 (Given - Provider: Ashley Whitley RN) sodium chloride 0.9 % bolus 500 mL (COMPLETED) 500 mL, intravenous, at 1,000 mL/hr, Administer over 30 Minutes, Once, On Mon05/03/22 at 1829, For 1 dose 2035 (New Bag - Provider: Ally Pandey RN - Comment: difficult IV access)2200 (Stopped - Provider: Tatianna Whitley RN) Scheduled Medication Order 04/04/2023 04/05/2023 04/06/2023 amLODIPine (NORVASC) tablet 10 mg 10 mg, Oral, DAILY, First dose (after last modification) on Mon04/03/23 at 0900, Until Discontinued 0943 (Given - Provider: Maribell Reagan, Student Nurse) 09 (Given - Provider: Rex Duron RN) 09 (Given - Provider: Deepak Torres RN) Enoxaparin Sodium (LOVENOX) injection 40 mg(Linked Group 1) 40 mg, Subcutaneous, DAILY, First dose on Mon03/31/23 at 0945, Until Discontinued, Indications: DVT/PE prophylaxis 0943 (Given - Provider: Maribell Edwina Reagan, Student Nurse) 0919 (Given - Provider: Rex Duron, RN) 0901 (Given - Provider: Deepak Torres, RN) Gabapentin (NEURONTIN) capsule 400 mg 400 mg, Oral, EVERY 8 HOURS, First dose (after last modification) on Mon04/03/23 at 1400, Until Discontinued 0603 (Given - Provider: Eileen Almazan RN)1306 (Given - Provider: Maribell Reagan, Student Nurse)2201 (Given - Provider: Ely Pop RN) 0624 (Given - Provider: Ely Pop RN)1404 (Given - Provider: Rex Duron, RN)2103 (Given - Provider: Ely Pop, CHRISS) 0601 (Given - Provider: Ely Pop RN)1430 (Given - Provider: Deepak Torres, RN) levETIRAcetam (KEPPRA) 1,250 mg in Sodium chloride 0.9%, with overfill 122.5 mL (total volume) IVPB (CANCELED) 1,250 mg, Intravenous, Administer over 15 Minutes, EVERY 12 HOURS NON-STANDARD, First dose (after last modification) on Mon04/02/23 at 1315, Until Discontinued 0131 ($$New Bag$$ - Provider: Eileen Almazan RN)0137 (Paused - Provider: Ely Pop RN)0141 (Restarted - Provider: Ely Pop RN)0148 (Paused - Provider: Ely Pop RN)0152 (Restarted - Provider: Ely Pop RN)0155 (Stopped - Provider: Ely Pop RN)1306 ($$New Bag$$ - Provider: Maribell Reagan, Student Nurse)1321 (Stopped - Provider: Ely Pop RN) 0154 ($$New Bag$$ - Provider: Ely Pop RN)0210 (Stopped - Provider: Ely Pop RN)1410 ($$New Bag$$ - Provider: Rex Duron, RN)1411 (Paused - Provider: Ely Pop RN)1413 (Restarted - Provider: Ely Pop RN)1431 (Stopped - Provider: Ely Pop RN) levETIRAcetam (KEPPRA) 1,500 mg in Sodium chloride 0.9%, with overfill 125 mL (total volume) IVPB 1,500 mg, Intravenous, Administer over 15 Minutes, EVERY 12 HOURS NON-STANDARD, First dose (after last modification) on Yumi 04/06/23 at 0115, Until Discontinued 0050 ($$New Bag$$ - Provider: Ely Pop RN)0107 (Stopped - Provider: Ely Pop RN)1430 ($$New Bag$$ - Provider: Deepak Torres, RN) Pantoprazole (PROTONIX) tablet DR 40 mg 40 mg, Oral, DAILY, First dose on Mon04/03/23 at 0900, Until Discontinued, Swallow whole; do not crush or chew., Indications: Continuation of Home Therapy 0943 (Given - Provider: Maribell Reagan, Student Nurse) 0918 (Given - Provider: Rex Duron, CHRISS) 09 (Given - Provider: Deepak Torres, RN) PHENobarbital (LUMINAL) tablet 32.4 mg 32.4 mg, Oral, DAILY, First dose (after last modification) on Mon04/03/23 at 0900, Until Discontinued 1009 (Given - Provider: Val Mendoza RN) 0918 (Given - Provider: Rex Duron, CHRISS) 0902 (Given - Provider: Deepak Torres, RN) PHENobarbital (LUMINAL) tablet 48.6 mg 48.6 mg, Oral, EVERY 24 HOURS, First dose (after last modification) on Mon04/03/23 at 2100, Until Discontinued 220 (Given - Provider: Ely Pop RN) 210 (Given - Provider: Ely Pop, CHRISS) Polyethylene glycol (MIRALAX) packet 17 g(Linked Group 2) 17 g, Oral, DAILY, First dose (after last modification) on Mon04/03/23 at 0900, Until Discontinued 0943 (Given - Provider: Maribell Reagan, Student Nurse) 0919 (Given - Provider: Rex Duron, CHRISS) 09 (Given - Provider: Deepak Torres, RN) Potassium chloride (K-DUR) tablet ER 40 mEq (COMPLETED) 40 mEq, Oral, ONCE, 1 dose, On Mon04/05/23 at 1000 1055 (Given - Provider: Rex Duron, CHRISS) Senna (SENOKOT) tablet 17.2 mg(Linked Group 3) 17.2 mg, Oral, DAILY, First dose (after last modification) on Mon04/03/23 at 0900, Until Discontinued 0942 (Given - Provider: Carl Fenton Nurse) 917 (Given - Provider: Rex Duron RN) 901 (Given - Provider: Deepak Torres, CHRISS) Sertraline (ZOLOFT) tablet 125 mg 125 mg, Oral, DAILY, First dose (after last modification) on Mon04/03/23 at 0900, Until Discontinued 42 (Given - Provider: Carl Fenton Nurse) 917 (Given - Provider: Rex Duron RN) 901 (Given - Provider: Deepak Torres, CHRISS) Spironolactone (ALDACTONE) tablet 50 mg 50 mg, Oral, DAILY, First dose on Mon04/03/23 at 1000, Until Discontinued, Max 400 mg/day. Swallow tablet whole; do not crush, split or chew. Contact pharmacy if alternate route or dose is needed. 941 (Given - Provider: Carl Fenton Nurse) 917 (Given - Provider: Rex Duron RN) 902 (Given - Provider: Deepak Torres RN) PRN Medication Order 04/04/2023 04/05/2023 04/06/2023 Acetaminophen (TYLENOL) tablet 650 mg 650 mg, Oral, EVERY 4 HOURS NEEDED, Starting on Mon04/02/23 at 1210, Until Yumi 04/06/23 at 1952, Mild Pain, Moderate Pain, Oral temp > 100.4 F, Headaches, Severe Pain, Maximum dose of acetaminophen is 4000 mg from all sources in 24 hours. 0943 (Given - Provider: Carl Fenton) bisacodyl (DULCOLAX) suppository 10 mg 10 mg, Rectal, DAILY NEEDED, Starting on Yumi 03/30/23 at 1204, Until Yumi 04/06/23 at 1952, Constipation If No Bowel Movement in 48 Hours Sodium chloride 0.9% IV solution 250 mL Intravenous, at 20 mL/hr, NEEDED, Starting on Yumi 03/30/23 at 1204, Until Yumi 04/06/23 at 1952, Carrier Fluid - See Admin. Inst, 250mL 0.9NS to be used as carrier fluid for intermittent small volume or piggyback medication administration as needed. Infusion rate of the carrier fluid should be set at 20 mL/hr unless the rate as the intermittent medication is less than 20 mL/hr. For intermittent medications with a rate less than 20 mL/hr set the carrier fluid at that rate of the intermittent or piggy back medication. 1300 ($$New Bag$$ - Provider: Maribell Reagan, Student Nurse)1306 (Paused - Provider: Ely Pop, RN)1321 (Restarted - Provider: Ely Pop, RN)1946 (Stopped - Provider: Ely Pop, RN) 0153 ($$New Bag$$ - Provider: Ely Pop, RN)0154 (Paused - Provider: Ely Pop, RN)0210 (Restarted - Provider: Ely Pop, RN)0220 (Stopped - Provider: Ely Pop RN) Linked Groups Order Group 1: Enoxaparin Sodium (LOVENOX) injection 40 mgJump to med 40 mg, Subcutaneous, DAILY, First dose on Mon03/31/23 at 0945, Until Discontinued, Indications: DVT/PE prophylaxis And PLATELET COUNT - baseline (COMPLETED) Routine, ONE TIME, On Mon03/31/23 at 0906, For 1 occurrence, Use existing specimen And PLATELET COUNT (CANCELED) Routine, EVERY 3 DAYS AM LAB, First occurrence on Mon04/03/23 at 0500, Until Specified, New collection Group 2: Polyethylene glycol (MIRALAX) packet 17 gJump to med 17 g, Oral, DAILY, First dose (after last modification) on Mon04/03/23 at 0900, Until Discontinued Group 3: Senna (SENOKOT) tablet 17.2 mgJump to med 17.2 mg, Oral, DAILY, First dose (after last modification) on Mon04/03/23 at 0900, Until Discontinued Ordered Prescriptions (unrec ognized section and content) Prescription Sig Dispensed Refills Start Date End Da te sulfamethoxazole-trimethop rim (Bactrim DS) 800-160 mg per tablet Take 1 tablet by mouth 2 (two) times a day for 7 days. 14 each 0 05/04/2022 05/11/2022 FOR RECORDS PERTAINING TO PATIENTS WHO ARE OR HAVE BEEN ENROLLED IN A CHEMICAL DEPENDENCY/SUBSTANCEABUSE PROGRAM, SOME INFORMATION MAY BE OMITTED. This clinical summary was aggregated from multiple sources. Caution should be exercised in using it in the provision of clinical care. This summary normalizes information from multiple sources, and as a consequence, information in this document may materially change the coding, format and clinical context of patient data. In addition, data may be omitted in some cases. CLINICAL DECISIONS SHOULD BE BASED ON THE PRIMARY CLINICAL RECORDS. [facility] [employer] [facility] provides no warranty or guarantee of the accuracy or completeness of information in this document.
[2024-08-21 07:54] LABS: Hematocrit 42.5 % (37-47); Mean Corp Hgb Conc 32.9 g/dL (32-36); Mean Corpuscular Hgb 31.8 pg (27.0-32.0); Mean Corpuscular Volume 96.6 fL (81-99); POSITIVE COUNT YES; Platelet Count 84 K/mm3 (150-450); RBC Distribution Width CV 12.8 % (11.6-14.6); RBC Distribution Width SD 45.8 fl (35.1-43.9); White Blood Count 4.7 K/mm3 (4.4-11.0)
[2024-08-21 07:57] LABS: Valproic Acid (Depakene) Level 48 ug/mL (50-100)
[2024-08-21 08:05] LABS: Scan Indicated on CBC? Y/N YES- FLAGS NOTED
[2024-08-21 08:22] LABS: Anion Gap 15 (5-15); BUN 13 mg/dL (4-19); BUN/Creat Ratio 14.6 RATIO (10-20); Calcium,Total 8.7 mg/dL (7.6-11.0); Carbon Dioxide 21.2 mmol/L (21.0-32.0); Chloride 102 mmol/L (98-108); Creatinine, Serum 0.89 mg/dL (0.70-1.20); EST Glomerular Filtration Rate 84 (>60); Glucose 72 mg/dL (70-99); Potassium 4.1 mmol/L (3.3-5.1); Sodium Level 138 mmol/L (133-145)
== END | disposition home or self-care (01) ==
LOC: OLS.WCC 05:00
PROVIDERS: PCP Family Medicine; Visit Provider Family Medicine
DX: R56.9 Unspecified convulsions (principal); I10 Essential (primary) hypertension; Z79.899 Other long term (current) drug therapy
CPT/HCPCS: 36415; 80048; 80164; 85027

== ENCOUNTER 2024-10-18 14:23 | Emergency (ER) | payer MEDICAID, SELFPAY ==
[2024-10-18 14:24] VITALS: BP 104/64; PULSE 80; RESP 18; TEMP 36.8; O2SAT 98; BMI 31.8
--- NOTE | 2024-10-18 14:54 | CT_ITS ---
PROCEDURE: SPINE CERVICAL WITHOUT CONTRAS 10/18/2024 REASON FOR EXAM: HEAD INJURY, NECK PAIN TECHNIQUE: SPINE CERVICAL WITHOUT CONTRAS Coronal and Sagittal reconstruction series were provided. One or more dose reduction techniques were used (e.g., Automated exposure control, adjustment of the mA and/or kV according to patient size, use of iterative reconstruction technique. RADIATION DOSE SUMMARY: CTDlvol: 44.99, 23.08 mGy DLP: 1230.60 mGycm FINDINGS: BONES: No acute fracture or focal osseous lesion. Bony alignment is anatomic. Straightening of the normal cervical lordosis. DISCS / DEGENERATIVE CHANGES: Mild C4-C5 disc space narrowing with vertebral endplate osteophytes. Moderate left C4-C5 neural foraminal stenosis, which has progressed, due to uncovertebral osteophytes. No significant central canal stenosis. SOFT TISSUES: No prevertebral soft tissue swelling. No apical pneumothorax. CT/Spine Cervical without Contras IMPRESSION: 1. No acute cervical spine fracture or dislocation. 2. Straightening of the cervical spine, may reflect muscle spasm. 3. Degenerative changes at C4-C5. Reading Location: [id number]
--- NOTE | 2024-10-18 14:54 | CT_ITS ---
PROCEDURE: BRAIN/HEAD WITHOUT CONTRAST 10/18/2024 REASON FOR EXAM: HEAD INJURY, FALL TECHNIQUE: BRAIN/HEAD WITHOUT CONTRAST Coronal and Sagittal reconstruction series were provided. One or more dose reduction techniques were used (e.g., Automated exposure control, adjustment of the mA and/or kV according to patient size, use of iterative reconstruction technique. RADIATION DOSE SUMMARY: CTDlvol: 44.99 mGy DLP: 796.11 mGycm COMPARISON: Prior CT scan of the brain dated April 07, 2022. FINDINGS: Brain: Stable asymmetrical atrophy more pronounced in the left cerebellar region and left cerebral hemisphere. CSF Spaces: Mild generalized cerebral atrophy Sinuses/Mastoids: Minimal mucosal thickening along the posterior aspect of the left sphenoid sinus Bones: No bony abnormality is seen. CT/Brain/Head without Contrast IMPRESSION: CHRONIC CHANGES. NO ACUTE FINDINGS. Reading Location: [id number]
--- NOTE | 2024-10-18 15:30 | RAD_ITS ---
PROCEDURE: FOOT MIN 3 VIEWS 10/18/2024 REASON FOR EXAM: FALL TECHNIQUE: FOOT MIN 3 VIEWS Laterality: Left foot COMPARISON: None FINDINGS: Bones: Calcaneal spurs. No fracture. Joints: Normal alignment. Soft tissues: Mild soft tissue swelling. Other: RAD/Foot min 3 Views IMPRESSION: No fracture seen. Soft tissue swelling. Calcaneal spurs. Reading Location: [id number]
--- NOTE | 2024-10-18 15:36 | EX.ED.GENINJ ---
HPI <LILLIAM Lugo - Last Filed: 10/18/24 18:03> History of Present Illness Chief Complaint: Fall Narrative Narrative: Patient presenting today due to a mechanical fall that occurred this afternoon. She was walking with her walker to put sugar in her tea when she tripped and fell backwards, hitting her head against the ground. She has a small laceration to her posterior scalp, she is unsure when her tetanus was last updated. No LOC occurred, she is not on any blood thinners. She is coming from a facility due to history of adult failure to thrive and cognitive delay. She reports that she has had some urinary frequency. No fevers or chills. She reports pain to the back of her head and neck and to her left foot. REPLACED BY [facility] <LILLIAM Lugo - Last Filed: 10/18/24 18:03> REPLACED BY [facility] Medical History UTI (urinary tract infection) Paresthesias Hypokalemia Urinary tract infection Morbid obesity Cognitive dysfunction Debility Seizure disorder HTN (hypertension) Home Medications ?Medication ?Instructions ?Recorded ?Last Taken ?Type ferrous sulfate 325 mg (65 mg 325 mg PO DAILY@0800 supplement 03/17/20 1 Day Ago History iron) tablet ~04/14/22 gabapentin 300 mg capsule 300 mg PO BID neuropathy #60 caps 04/06/20 1 Day Ago Rx ~04/14/22 levetiracetam 1,000 mg tablet 1,000 mg PO BID seizures #60 tabs 04/06/20 1 Day Ago Rx ~04/14/22 amlodipine 5 mg tablet 10 mg PO DAILY BP 09/16/21 1 Day Ago History ~04/14/22 phenobarbital 64.8 mg tablet 64.8 mg PO BID SEIZURES 03/02/22 1 Day Ago History ~04/14/22 acetaminophen 325 mg tablet 650 mg (2 x 325 mg) PO Q6H PRN PRN 03/09/22 Unknown Rx (Tylenol) Pain 1-10 Or Fever>100.7 #0 tabs cyanocobalamin (vitamin B-12) 500 1,000 mcg (2 x 500 mcg) PO 03/09/22 1 Day Ago Rx mcg tablet BREAKFAST #0 tabs ~04/14/22 menthol 0.44 %-zinc oxide 20.6 % 1 applic topical TID #0 grams 03/09/22 Unknown Rx topical ointment (Calmoseptine) sennosides 8.6 mg-docusate sodium 2 tab PO BID PRN PRN Constipation 03/09/22 Unknown Rx 50 mg tablet (Stool #0 tabs Softener-Stimulant Laxative) folic acid 1 mg tablet 1 mg PO BREAKFAST supplement 04/07/22 1 Day Ago History ~04/14/22 pantoprazole 40 mg tablet,delayed 40 mg PO DAILY GI 04/07/22 1 Day Ago History release (Protonix) ~04/14/22 sucralfate 1 gram tablet 1 g PO 0700,1100,1600 GI 04/07/22 Unknown History topiramate 100 mg tablet 100 mg PO BID seizures 04/07/22 1 Day Ago History ~04/14/22 sertraline 50 mg tablet 50 mg PO DAILY MOOD 04/15/22 1 Day Ago History ~04/14/22 spironolactone 25 mg tablet 25 mg PO DAILY . 04/15/22 1 Day Ago History ~04/14/22 carvedilol 6.25 mg tablet 6.25 mg PO BID #0 tabs 04/22/22 Unknown Rx potassium chloride 20 mEq 40 meq (2 x 20 mEq) PO DAILYCM #0 04/22/22 Unknown Rx tablet,extended tabs release(part/cryst) (Klor-Con M) cephalexin 500 mg capsule 500 mg PO TID 7 days #21 caps 10/18/24 Unknown Rx Allergy/AdvReac Type Severity Reaction Status Date / Time fluconazole Allergy NEEDS Verified 10/18/24 14:26 FOLLOW-UP naproxen Allergy Hives Verified 10/18/24 14:26 Family History Other Leukemia Social History household members: significant other, family, children and caregiver housing: assisted living facility Smoking Status: Former smoker alcohol intake: never substance use type: does not use ROS <LILLIAM Lugo - Last Filed: 10/18/24 18:03> ROS ED Constitutional Constitutional ED: Denies chills or fever(s) Cardiovascular Cardiovascular: Denies chest pain Respiratory/Chest Respiratory/Chest: Denies dyspnea Gastrointestinal Gastrointestinal: Denies abdominal pain, nausea or vomiting Genitourinary Genitourinary ED: Reports urinary frequency; Denies dysuria or hematuria Musculoskeletal Musculoskeletal: Reports arthralgias and neck pain Integumentary Reports laceration Neurologic Neurologic: Denies weakness EXAM <LILLIAM Lugo - Last Filed: 10/18/24 18:03> Physical Exam Const Vital Signs: 10/18/24 14:24 10/18/24 14:26 10/18/24 16:55 Temperature 98.3 F 97.8 F Temperature Source Oral Pulse Rate 80 67 Respiratory Rate 18 16 Respiratory Effort Normal Non-Labored Respiratory Depth Normal Respiratory Pattern Normal Blood Pressure 104/64 122/90 H Blood Pressure Mean 77 100 Pulse Ox 98 98 Oxygen Delivery Method Room Air Room Air 10/18/24 18:00 Temperature Temperature Source Pulse Rate 72 Respiratory Rate 18 Respiratory Effort Respiratory Depth Respiratory Pattern Blood Pressure Blood Pressure Mean Pulse Ox 98 Oxygen Delivery Method Room Air Positive well nourished, well developed and no apparent distress General Appearance ED: well developed HEENT Reports normocephalic and head/scalp atraumatic HEENT Narrative: 1 cm full-thickness linear laceration to the posterior scalp with no active bleeding Mouth ED: Yes moist mucous membranes normal Eyes PERRL and EOMs intact bilaterally Neck full ROM and supple Neck Narrative: Minimal midline mid cervical tenderness to palpation, Chest Wall inspection of chest normal Resp normal respiratory effort and clear to auscultation bilaterally Cardio regular rate and regular rhythm GI soft to palpation, non-tender, non-distended and no masses Back/Spine normal ROM and normal to inspection Extremity full ROM Extremity Narrative: Bruising and edema to the lateral mid aspect of the left foot, no tenderness to the left ankle, left DP pulse 2+, good cap refill, sensation intact Neuro oriented x3, CN's II-XII intact bilaterally, moves all extremities, no focal motor deficits and no sensory deficits noted Sensorium / Orientation: awake and alert Psych mental status grossly normal and thought process normal Skin Skin Narrative: Aside from scalp laceration no other rashes or lesions noted <Dr. Jose Brown DO - Last Filed: 10/18/24 23:53> Physical Exam Const Vital Signs: 10/18/24 14:24 10/18/24 14:26 10/18/24 16:55 Temperature 98.3 F 97.8 F Temperature Source Oral Pulse Rate 80 67 Respiratory Rate 18 16 Respiratory Effort Normal Non-Labored Respiratory Depth Normal Respiratory Pattern Normal Blood Pressure 104/64 122/90 H Blood Pressure Mean 77 100 Pulse Ox 98 98 Oxygen Delivery Method Room Air Room Air 10/18/24 18:00 Temperature Temperature Source Pulse Rate 72 Respiratory Rate 18 Respiratory Effort Respiratory Depth Respiratory Pattern Blood Pressure Blood Pressure Mean Pulse Ox 98 Oxygen Delivery Method Room Air PROC <LILLIAM Lugo - Last Filed: 10/18/24 18:03> Procedures Lacerations Laceration: Length: 0.39 in Depth: Sub Q Shape: Linear Laceration repair: Lidocaine Number of Sutures/Suleman: 2 Comment: Staple MDM <LILLIAM Lugo - Last Filed: 10/18/24 18:03> MDM MDM Narrative Medical decision making narrative: Patient presenting today due to mechanical fall that occurred this afternoon. She was going to put sugar in her tea when she tripped and fell backwards, hitting her head on the ground. She has a small 1 cm full-thickness laceration to her posterior scalp that was cleaned and repaired. She tolerated procedure well. Given her head injury and that she is reporting midline neck pain, head and neck CTs obtained to assess for intracranial bleed and cervical fracture, these are negative for acute findings. UA obtained to assess for UTI and is positive, urine will be cultured and she will be started on Keflex with first dose here. Her tetanus was updated. She has tenderness to her left foot, x-rays negative for fracture and she is able to ambulate. She will be discharged back to her facility in stable condition. Recommended following up with her PCP, RICE instructions discussed for her foot, she can take Tylenol and ibuprofen as needed for pain. Lab Data Attestation: I reviewed the patient's lab results. Labs: Laboratory Results - last 24 hr 10/18/24 15:57 Urine Color [place]ba Urine Clarity Cloudy Urine pH 5.0 Ur Specific [place] 1.025 Urine Protein 100 H Urine Glucose (UA) Normal Urine Ketones 15 H Urine Occult Blood 10 H Urine Nitrite Negative Urine Bilirubin 1 H Urine Urobilinogen 4 H Ur Leukocyte Esterase 500 H Urine RBC 5-10 SEEN Urine WBC >100 SEEN Ur Squamous Epith Cells 10-25 SEEN Urine Bacteria 1+ Hyaline Casts 0-5 SEEN Urine Mucus 0 SEEN Radiography Diagnostic Testing: Clinical Impression(s) from Imaging Studies Brain CT 10/18/24 14:54 IMPRESSION: CHRONIC CHANGES. NO ACUTE FINDINGS. Reading Location: [id number] Cervical Spine CT 10/18/24 14:54 IMPRESSION: 1. No acute cervical spine fracture or dislocation. 2. Straightening of the cervical spine, may reflect muscle spasm. 3. Degenerative changes at C4-C5. Reading Location: [facility] Foot X-Ray 10/18/24 15:30 IMPRESSION: No fracture seen. Soft tissue swelling. Calcaneal spurs. Reading Location: [facility] <Dr. Jose Brown, DO - Last Filed: 10/18/24 23:53> [facility] Lab Data Labs: Laboratory Results - last 24 hr 10/18/24 15:57 Urine Color [place]ba Urine Clarity Cloudy Urine pH 5.0 Ur Specific [place] 1.025 Urine Protein 100 H Urine Glucose (UA) Normal Urine Ketones 15 H Urine Occult Blood 10 H Urine Nitrite Negative Urine Bilirubin 1 H Urine Urobilinogen 4 H Ur Leukocyte Esterase 500 H Urine RBC 5-10 SEEN Urine WBC >100 SEEN Ur Squamous Epith Cells 10-25 SEEN Urine Bacteria 1+ Hyaline Casts 0-5 SEEN Urine Mucus 0 SEEN Radiography Diagnostic Testing: Clinical Impression(s) from Imaging Studies Brain CT 10/18/24 14:54 IMPRESSION: CHRONIC CHANGES. NO ACUTE FINDINGS. Reading Location: [id number] Cervical Spine CT 10/18/24 14:54 IMPRESSION: 1. No acute cervical spine fracture or dislocation. 2. Straightening of the cervical spine, may reflect muscle spasm. 3. Degenerative changes at C4-C5. Reading Location: [facility] Foot X-Ray 10/18/24 15:30 IMPRESSION: No fracture seen. Soft tissue swelling. Calcaneal spurs. Reading Location: [facility] Treatment and Re-Evaluation Narrative: Attending note: I have personally performed a face to face assessment of the patient and have reviewed the SHEYLA note. I personally made/approved the management plan and take responsibility for the patient management. I performed a substantive portion of the visit including all aspects of the following. My jain findings include: Primary EMS mechanical fall while making tea at therapy. Hit the back of her head no loss consciousness. Bleeding controlled with pressure tetanus unknown no anticoagulants. Pain also left foot. Reports she is not feeling well. No abdominal pain. No cough. Exam was to 1 cm laceration posterior scalp with dried blood. GCS 15. Left foot had ecchymosis lateral foot more medial to the proximal fifth base. No proximal fifth base tenderness. Skin is intact. No ankle tenderness. Patient had trauma scans head and neck negative. Left foot x-ray 3 views to myself read by radiology shows no acute process. Urine was positive for infection. Tetanus updated, started on antibiotics, Julian wrap to the foot. Scalp laceration repaired by mower mechanic with staple. Discharge Plan Triage Chief Complaint: Fall ED Midlevel Provider: Amanda Bland ED Provider: Jose Brown Dx/Rx/DC Orders Clinical Impression: UTI (urinary tract infection), Fall, Head injury, Cervical strain, Laceration of scalp Instructions: ED Head Injury (Adult), ED Laceration, All Closures Prescriptions: New cephalexin 500 mg capsule 500 mg PO TID 7 Days Qty: 21 0RF No Action ferrous sulfate 325 MG tablet 325 mg PO DAILY@0800 gabapentin 300 MG capsule 300 mg PO BID Qty: 60 0RF levetiracetam 1,000 MG tablet 1,000 mg PO BID Qty: 60 0RF amlodipine 5 mg tablet 10 mg PO DAILY phenobarbital 64.8 mg tablet 64.8 mg PO BID Patient Comments: TAKE ONE (1) TABLET BY MOUTH TWICE DAILY sennosides-docusate sodium [Stool Softener-Stimulant Laxat] 8.6-50 mg Tablet 2 tab PO BID PRN PRN (Reason: Constipation) Qty: 0 0RF menthol-zinc oxide [Calmoseptine] 0.44-20.6 % Ointment 1 applic topical TID Qty: 0 0RF Protocol: *Topical Application Instructions APPLICATION INSTRUCTIONS: buttocks cyanocobalamin (vitamin B-12) 500 mcg Tablet 1,000 mcg PO BREAKFAST Qty: 0 0RF acetaminophen [Tylenol] 325 mg Tablet 650 mg PO Q6H PRN PRN (Reason: Pain 1-10 Or Fever>100.7) Qty: 0 0RF sucralfate 1 gram tablet 1 g PO 0700,1100,1600 pantoprazole [Protonix] 40 mg tablet,delayed release (DR/EC) 40 mg PO DAILY folic acid 1 mg tablet 1 mg PO BREAKFAST topiramate 100 MG tablet 100 mg PO BID spironolactone 25 mg tablet 25 mg PO DAILY sertraline 50 mg tablet 50 mg PO DAILY carvedilol 6.25 mg Tablet 6.25 mg PO BID Qty: 0 0RF potassium chloride [Klor-Con M20] 20 mEq Tablet,Er Particles/Crystals 40 meq PO DAILYCM Qty: 0 0RF Primary Care Provider: Mandy Badillo Referrals: Mandy Badillo MD [Primary Care Provider] - 5-7 Days Activity Restrictions/Additional Instructions: Follow-up with your PCP and return for any other concerns. Have suleman removed in 10 to 14 days. Print Language: Persian Disposition Disposition: Home, Self Care Discharge Date/Time: 10/18/24 18:59
[2024-10-18 16:04] LABS: Mucous, Urine 0 SEEN /hpf (<or=2+)
[2024-10-18 16:07] LABS: Color, Urine Amber (Yellow); Glucose, Dipstick Normal (Normal); Ketone-Dipstick 15 mg/dl (Negative); Leukocyte Esterase-Dipstick 500 /ul (Negative); Nitrite-Dipstick Negative (Negative); Occult Blood-Urine 10 /ul (Negative); Protein-Dipstick 100 mg/dl (Negative); Specific Gravity, Urine 1.025 (1.002-1.030)
[2024-10-18 16:08] LABS: Urine Bilirubin Dipstick 1 mg/dL (Negative)
[2024-10-18 16:24] LABS: Red Blood Cells-Urine 5-10 SEEN /hpf (0-5); Squamous Epithelial Cells - UA 10-25 SEEN /hpf (5-10)
[2024-10-18 16:55] VITALS: BP 122/90; PULSE 67; RESP 16; TEMP 36.6; O2SAT 98
[2024-10-18 18:00] VITALS: PULSE 72; RESP 18; O2SAT 98
== END 2024-10-18 18:59 | disposition home or self-care (01) ==
PROVIDERS: Physician Assistant; Emergency Provider Emergency Medicine; PCP Internal Medicine; Visit Provider Emergency Medicine
DX: S01.01XA Laceration without foreign body of scalp, initial encounter (principal); M79.672 Pain in left foot; Z87.891 Personal history of nicotine dependence; S16.1XXA Strain of muscle, fascia and tendon at neck level, initial encounter; I10 Essential (primary) hypertension; N39.0 Urinary tract infection, site not specified; W19.XXXA Unspecified fall, initial encounter
CPT/HCPCS: 12001; 70450; 72125; 73630; 81001; 87077; 87086; 87088; 87186; 90715; 99284

== ENCOUNTER 2025-01-06 13:53 | Emergency (ER) | payer MEDICAID, SELFPAY ==
[2025-01-06] VITALS (10 sets, daily range): BP systolic 84–155; BP diastolic 56–100; PULSE 62–70; RESP 12–19; TEMP 37–37.1; O2SAT 95–99; BMI 31.2
--- NOTE | 2025-01-06 15:08 | EX.ED.DYSGE1 ---
HPI History of Present Illness Chief Complaint: Seizure Narrative Narrative: Patient is a 39-year-old female with past medical history of hypertension, seizure disorder, hypokalemia, failure to thrive who presents to the emergency department from her rehab facility with a chief complaint of seizure. Patient states that she has been feeling well overall and has no specific complaints. States that she is been taking her medications as prescribed. Per nursing the nursing facility states that they have been trying to wean her off of Depakote. [facility] Medical History UTI (urinary tract infection) Paresthesias Hypokalemia Urinary tract infection Morbid obesity Cognitive dysfunction Debility Seizure disorder HTN (hypertension) Home Medications ?Medication ?Instructions ?Recorded ?Last Taken ?Type acetaminophen 325 mg tablet 650 mg (2 x 325 mg) PO Q6H PRN PRN 03/09/22 Unknown Rx (Tylenol) Pain 1-10 Or Fever>100.7 #0 tabs folic acid 1 mg tablet 1 mg PO BREAKFAST supplement 04/07/22 1 Day Ago History ~04/14/22 cephalexin 500 mg capsule 500 mg PO BID 5 days #10 caps 01/06/25 Unknown Rx famotidine 20 mg tablet 20 mg PO DAILY 01/06/25 Unknown History furosemide 20 mg tablet (Lasix) 20 mg PO DAILY 01/06/25 Unknown History gabapentin 400 mg capsule 400 mg PO TID 01/06/25 Unknown History lactulose 10 gram/15 mL oral 30 g PO TIDCM 01/06/25 Unknown History solution (Enulose) levetiracetam 500 mg tablet 1,000 mg PO BID 01/06/25 Unknown History (Keppra) losartan 50 mg tablet 50 mg PO DAILY 01/06/25 Unknown History nystatin 100,000 unit/gram topical 1 applic topical PRN 01/06/25 Unknown History powder phenobarbital 32.4 mg tablet 32.4 mg PO DAILY 01/06/25 Unknown History phenobarbital 32.4 mg tablet 64.8 mg PO QHS 01/06/25 Unknown History potassium chloride 20 mEq 20 meq PO DAILY 01/06/25 Unknown History tablet,extended release(part/cryst) (Klor-Con M) spironolactone 50 mg tablet 50 mg PO DAILY 01/06/25 Unknown History venlafaxine 150 mg 150 mg PO DAILY 01/06/25 Unknown History capsule,extended release 24 hr Allergy/AdvReac Type Severity Reaction Status Date / Time fluconazole Allergy NEEDS Verified 01/06/25 13:54 FOLLOW-UP naproxen Allergy Hives Verified 01/06/25 13:54 Family History Other Leukemia Social History household members: significant other, family, children and caregiver housing: assisted living facility Smoking Status: Former smoker alcohol intake: never substance use type: does not use ROS ROS ED ROS Narrative Constitutional: Denies any fevers, chills, headaches Eyes: Denies any changes with double vision blurry vision Cardiovascular: Denies chest pain or palpitation Respiratory: Denies coughing wheezing shortness of breath Abdomen: Denies abdominal pain nausea vomit diarrhea : Denies urinary symptoms Neurological: Denies any numbness close no tingling Musculoskeletal: Denies back pain Skin: Denies any rashes or lesions EXAM Physical Exam Narrative Exam Narrative: General: Patient lying in bed rest comfortably did not appear to be in acute distress Head: Atraumatic, normocephalic Eyes, ears, nose, throat: PERRL bilaterally, EOMI bilateral, no conjunctival injection noted no posterior pharynx erythema noted Neck: Soft, supple, trachea midline Cardiovascular: Regular rate and rhythm Respiratory: Clear to auscultation bilaterally Abdomen: Soft, nondistended, nontender to palpation Extremities: +4/5 strength noted in the bilateral lower extremities Neurological: Patient follow commands knew that she was at [facility] 2024 Skin: Warm, dry, intact no rashes or lesions noted Const Vital Signs: 01/06/25 13:55 01/06/25 14:53 01/06/25 15:15 Temperature 98.6 F Temperature Source Oral Pulse Rate 66 67 62 Respiratory Rate 12 17 17 Blood Pressure 103/68 93/69 95/67 Blood Pressure Mean 79 77 77 Pulse Ox 99 95 Oxygen Delivery Method Room Air Room Air 01/06/25 15:30 01/06/25 15:45 01/06/25 16:00 Temperature Temperature Source Pulse Rate 64 64 69 Respiratory Rate 19 H 19 H 17 Blood Pressure 101/67 121/65 H 84/56 L Blood Pressure Mean 79 82 65 Pulse Ox Oxygen Delivery Method MDM MDM MDM Narrative Medical decision making narrative: Patient is a 39-year-old female who presented to the emergency department with a chief complaint of seizure. On the differential diagnose includes but not limited to breakthrough seizure, electrolyte abnormality. Once workup is obtained reviewed she will be reevaluated. Patient CBC reviewed showed no evidence leukocytosis white blood count normal at 6, hemoglobin 12.8, plate count was noted be 144. Patient sodium normal 140, potassium 3.7, creatinine 0.93 is normal. Patient AST and ALT normal at 14 and 7 respectively. Patient is negative, urinalysis showed 25 occult blood, 500 leukocyte esterase we will treat her for UTI she will be given a gram of Rocephin here in the emergency department she will be placed on Keflex. Discussed results with the patient and she is feeling better she like go back to her facility at this point time. She is advised to continue to take her medications as prescribed and discontinue weaning the Depakote until further evaluated by physician. All question concerns answered she is discharged back to facility in stable condition. Lab Data Labs: Laboratory Results - last 24 hr 01/06/25 01/06/25 15:00 16:14 WBC 6.0 RBC 3.94 L Hgb 12.8 Hct 39.0 MCV 99.0 MCH 32.5 H MCHC 32.8 RDW Std Deviation 44.8 H RDW Coeff of Enedina 12.2 Plt Count 144 L MPV 11.2 Immature Gran % (Auto) 0.200 Neut % (Auto) 57.4 Lymph % (Auto) 30.9 [place] % (Auto) 7.5 Eos % (Auto) 3.5 Baso % (Auto) 0.5 Absolute Neuts (auto) 3.4 Absolute Lymphs (auto) 1.85 Nucleated RBC % 0 Sodium 140 Potassium 3.7 Chloride 105 Carbon Dioxide 25.8 Anion Gap 9 BUN 9 Creatinine 0.93 Estim Creat Clear Calc 92.92 Est GFR (MDRD) Non-Af 80 BUN/Creatinine Ratio 9.7 L Glucose 78 Calcium 8.8 Total Bilirubin 0.18 AST 14 ALT 7 Alkaline Phosphatase 57 Total Protein 6.1 Albumin 3.7 Globulin 2.3 Albumin/Globulin Ratio 1.6 Serum , Qual NEGATIVE Urine Color Yellow Urine Clarity Sl. Cloudy Urine pH 6.0 Ur Specific [place] 1.020 Urine Protein 30 H Urine Glucose (UA) Normal Urine Ketones Negative Urine Occult Blood 25 H Urine Nitrite Negative Urine Bilirubin Negative Urine Urobilinogen Normal Ur Leukocyte Esterase 500 H Discharge Plan Triage Chief Complaint: Seizure ED Provider: Jad Martínez Dx/Rx/DC Orders Clinical Impression: Breakthrough seizure, UTI (urinary tract infection), Adult failure to thrive Prescriptions: New cephalexin 500 mg capsule 500 mg PO BID 5 Days Qty: 10 0RF No Action acetaminophen [Tylenol] 325 mg Tablet 650 mg PO Q6H PRN PRN (Reason: Pain 1-10 Or Fever>100.7) Qty: 0 0RF folic acid 1 mg tablet 1 mg PO BREAKFAST famotidine 20 mg tablet 20 mg PO DAILY furosemide [Lasix] 20 mg tablet 20 mg PO DAILY gabapentin 400 mg capsule 400 mg PO TID levetiracetam [Keppra] 500 mg tablet 1,000 mg PO BID lactulose [Enulose] 10 gram/15 mL solution 30 g PO TIDCM losartan 50 mg tablet 50 mg PO DAILY nystatin 100,000 unit/gram powder 1 applic topical PRN phenobarbital 32.4 mg tablet 64.8 mg PO QHS phenobarbital 32.4 mg tablet 32.4 mg PO DAILY Rx Instructions: IN AM spironolactone 50 mg tablet 50 mg PO DAILY venlafaxine 150 mg capsule,extended release 24hr 150 mg PO DAILY potassium chloride [Klor-Con M20] 20 mEq Tablet,Er Particles/Crystals 20 meq PO DAILY Primary Care Provider: Mandy Badillo Referrals: Mandy Badillo MD [Primary Care Provider, Geriatrics] Activity Restrictions/Additional Instructions: Follow-up on urine culture in the outpatient setting. Continue take antiepileptic medications as prescribed I would refrain from weaning Depakote for now until further evaluated by neurology. You were given a Keppra load 3.5 g here in the emergency department you were given a gram of Rocephin take antibiotics as prescribed. You are prescribed Keflex for 500 mg twice a day for 5 days. Return with worsening symptoms or other concerns Print Language: South Korean Disposition Disposition: [facility] Facility
[2025-01-06] MEDS: levETIRAcetam IV 3,500 MG in 0.9% Normal Saline (500mL Bag) 500 ML 999 MG IV (15:10)
[2025-01-06 15:17] LABS: Hematocrit 39.0 % (37-47); Hemoglobin 12.8 g/dL (12.0-15.0); Immature Granulocytes Count 0.010 X10^3/uL (0.0-0.0); Mean Corp Hgb Conc 32.8 g/dL (32-36); Mean Corpuscular Volume 99.0 fL (81-99); Mean Platelet Vol. 11.2 fl (6.2-12.0); NRBC Flagged by Analyzer 0 % (0-5); Platelet Count 144 K/mm3 (150-450); RBC Distribution Width CV 12.2 % (11.6-14.6); RBC Distribution Width SD 44.8 fl (35.1-43.9); Red Blood Count 3.94 M/mm3 (4.2-5.4); White Blood Count 6.0 K/mm3 (4.4-11.0)
--- NOTE | 2025-01-06 15:20 | CM.ED ---
Social work Due to patient having a legal guardian, ZORAIDA called Eric Viera to inquire about getting the official forms faxed to [facility] to add to patient's chart. ZORAIDA left a VM for the director medical (ph: [phone]) and did not hear back as of 1644. ZORAIDA handing off via email to Hailey DUNN in case this need is met over the next couple of days. Latonya Magdaleno, ACCOUNTING FILE CLERK, [employer]
[2025-01-06 15:43] LABS: AST(SGOT) 14 U/L (<=31); Alanine Aminotransfer ALT/SGPT 7 U/L (<=34); Albumin, Serum 3.7 g/dL (3.5-5.0); Alkaline Phosphatase 57 U/L (35-104); Anion Gap 9 (5-15); BUN 9 mg/dL (4-19); BUN/Creat Ratio 9.7 RATIO (10-20); Calcium,Total 8.8 mg/dL (7.6-11.0); Carbon Dioxide 25.8 mmol/L (21.0-32.0); Chloride 105 mmol/L (98-108); Estimated Creatinine Clearance 92.92 ml/min (50-250); Globulin 2.3 g/dL (2.2-4.2); Glucose 78 mg/dL (70-99); Potassium 3.7 mmol/L (3.3-5.1)
[2025-01-06 16:09] LABS: Internal QC Validated? YES +Cl - CLEAR BKGD; Pregnancy, Serum, hCG Quali. NEGATIVE Negative; Record Kit Lot#, Serum Preg. 0000980607
[2025-01-06] MEDS: 0.9% Normal Saline (1000mL) 1,000 ML 999 ML IV (16:15)
[2025-01-06 16:35] LABS: Color, Urine Yellow (Yellow); Glucose, Dipstick Normal (Normal); Ketone-Dipstick Negative (Negative); Leukocyte Esterase-Dipstick 500 /ul (Negative); Nitrite-Dipstick Negative (Negative); Occult Blood-Urine 25 /ul (Negative); Protein-Dipstick 30 mg/dl (Negative); Specific Gravity, Urine 1.020 (1.002-1.030); Urine Bilirubin Dipstick Negative (Negative)
[2025-01-06 18:33] LABS: Mucous, Urine 0 SEEN /hpf (<or=2+)
[2025-01-06 18:45] LABS: Trichomonas 5-10 SEEN /hpf (None Seen)
[2025-01-06 18:46] LABS: Red Blood Cells-Urine 0-5 SEEN /hpf (0-5); Squamous Epithelial Cells - UA 5-10 SEEN /hpf (5-10)
== END 2025-01-06 17:47 | disposition skilled nursing facility (03) ==
PROVIDERS: Emergency Provider Emergency Medicine; PCP Internal Medicine; Visit Provider Emergency Medicine
DX: G40.909 Epilepsy, unspecified, not intractable, without status epilepticus (principal); N39.0 Urinary tract infection, site not specified; I10 Essential (primary) hypertension; R62.7 Adult failure to thrive; Z87.891 Personal history of nicotine dependence; Z79.899 Other long term (current) drug therapy
CPT/HCPCS: 80053; 81002; 84703; 85025; 87077; 87086; 87088; 99285; A4216